=== PATIENT | female | born 1945 ===

== ENCOUNTER 2016-09-30 12:01 | Inpatient (IN) | payer OTHER, MEDICARE ==
[2016-09-30 12:01] VITALS: BMI 41.1
--- NOTE | 2016-09-30 12:18 | ED PDOC ---
HPI: SOB/CHF/COPD Time Seen by Provider: 09/30/16 12:08 Chief Complaint (Nursing): Shortness Of Breath History Per: Patient, EMS, Family Onset/Duration Of Symptoms: Days (3) Current Respiratory Medications: See Home Med List Severity: Moderate Pain Scale Rating Of: 0 Additional Complaint(s): Referred from [facility] for increasing SOB over past 3 days. Family has also noticed pt having more difficulty speaking, forming words. Denies cough or chest pain. Denies focal weakness. Pt has ? h/o Parkinsons and tremor upper ext has gotten worse. Bilat lower ext swelling but no new pain Past Medical History Vital Signs: Last Vital Signs Temp 98 F 09/30/16 12:07 Pulse 86 09/30/16 12:07 Resp 20 09/30/16 12:07 BP 139/61 09/30/16 12:07 Pulse Ox 100 09/30/16 12:07 - Medical History PMH: Anemia, Anxiety, Arthritis, Asthma, CAD, CHF, COPD, Depression, Diabetes, Deep Vein Thrombosis, Emphysema, Fibromyalgia, Fractures, GERD, HTN, Hypercholesterolemia, Hypothyroidism, Migraine, Pneumonia, Pulmonary Embolism, Rheumatoid Arthritis, Sleep Apnea Denies: HIV, Chronic Kidney Disease Other PMH: pulmonary HTN - Surgical History Surgical History: Cholecystectomy, Endoscopy, Tonsillectomy - Family History Family History: States: Diabetes - Home Medications Home Medications: Ambulatory Orders Medication Instructions Recorded ARIPiprazole [Abilify] 2 mg PO HS #0 tab 12/18/15 Aspirin [Ecotrin] 81 mg PO DAILY #0 tabec 12/18/15 Atorvastatin [Lipitor] 20 mg PO QPM #0 tab 12/18/15 Cyanocobalamin [Vitamin B12 1000 1,000 mcg IM DAILY #0 vial 12/18/15 mcg/ml Inj] Dexamethasone [Decadron] 40 mg PO Mo@0900 #0 tab 12/18/15 Escitalopram [Lexapro] 20 mg PO DAILY #0 tab 12/18/15 Famotidine [Pepcid] 20 mg PO BID #0 tab 12/18/15 Ferrous Gluconate [Fergon] 324 mg PO DAILY #0 tab 12/18/15 Furosemide [Lasix] 40 mg PO QOTHERDAY #0 tab 12/18/15 Insulin Detemir [Levemir] 30 units SC HS #0 vial 12/18/15 Nystatin [Mycostatin Cream] 1 applic TOP TID #0 tube 12/18/15 Pregabalin [Lyrica] 50 mg PO TID #0 cap 12/18/15 Ramipril [Altace] 2.5 mg PO DAILY #0 cap 12/18/15 Riociguat [Adempas] 2.5 mg PO TID #0 tablet 12/18/15 Vitamin A 8,000 unit PO DAILY #0 capsule 12/18/15 busPIRone [Buspar] 10 mg PO BID #0 tab 12/18/15 clonazePAM [Klonopin] 0.5 mg PO DAILY #0 tab 12/18/15 metFORMIN [glucOPHAGE] 500 mg PO BID #0 tab 12/18/15 Levothyroxine [Synthroid] 125 mcg PO DAILY@0630 #0 tab 12/19/15 - Allergies Allergies/Adverse Reactions: Allergies Allergy/AdvReac Type Severity Reaction Status Date / Time codeine AdvReac syncope, Verified 12/02/15 10:13 diaphoresis Review of Systems ROS Statement: Except As Marked, All Systems Reviewed And Found Negative Respiratory: Positive for: Shortness of Breath Musculoskeletal: Positive for: Other (Leg swelling) Physical Exam - Reviewed Nursing Documentation Reviewed: Yes Vital Signs Reviewed: Yes - Physical Exam Appears: Positive for: Non-toxic, No Acute Distress Head Exam: Positive for: ATRAUMATIC, NORMAL INSPECTION, NORMOCEPHALIC Skin: Positive for: Normal Color, Warm, DRY Eye Exam: Positive for: EOMI, Normal appearance, PERRL ENT: Positive for: Normal ENT Inspection Neck: Positive for: Normal, Painless ROM Cardiovascular/Chest: Positive for: Regular Rate, Rhythm Respiratory: Positive for: CNT, Normal Breath Sounds Gastrointestinal/Abdominal: Positive for: Normal Exam, Bowel Sounds, Soft Back: Positive for: Normal Inspection Extremity: Negative for: Swelling (LOwer ext bilat no calf tenderness.) Neurologic/Psych: Positive for: Alert, Oriented, Other (tremors upper ext bilat) - Laboratory Results Result Diagrams: 09/30/16 13:32 09/30/16 13:32 Disposition - Clinical Impression Clinical Impression: COPD exacerbation - Patient ED Disposition Is Patient to be Admitted: Yes - Disposition Disposition Time: 16:46 Condition: FAIR Forms: [employer] (Georgian) - Pt Status Changed To: Hospital Disposition Of: Observation - POA Present On Arrival: None
[2016-09-30 13:46] LABS: ALBUMIN 3.7 g/dL (3.5-5.0)
[2016-09-30 13:48] LABS: GFR AFRICAN-AMERICAN > 60; GFR NON-AFRICAN AMERICAN > 60
[2016-09-30 13:49] LABS: ALB/GLOB RATIO 1.4 (1.0-2.1); ALT/SGPT 31 U/L (9-52); AST/SGOT 35 U/L (14-36); BLOOD UREA NITROGEN 16 mg/dl (7-17)
[2016-09-30 13:50] LABS: CALCIUM 8.5 mg/dL (8.4-10.2)
--- NOTE | 2016-09-30 14:07 | CT ---
PROCEDURE: CT scan brain dated 09/30/2016. HISTORY: Rule out hemorrhage. COMPARISON: Comparison made with prior study 12/02/2015 TECHNIQUE: Contiguous helical/ transaxial computed tomography images were obtained through the head/brain without intravenous contrast. Radiation dose: Total exam DLP = 782.95 mGy-cm. This CT exam was performed using one or more of the following dose reduction techniques: Automated exposure control, adjustment of the mA and/or kV according to patient size, and/or use of iterative reconstruction technique. FINDINGS: HEMORRHAGE: No acute parenchymal, subarachnoid or extra-axial hemorrhage. BRAIN: Mild chronic periventricular white matter ischemic changes are seen extending peripherally into the deep white matter both cerebral hemispheres. No large acute infarct identified on this noncontrast study. Minor vascular calcifications. Mild generalized volume loss VENTRICLES: No evidence of obstructive hydrocephalus CALVARIUM: There are no acute calvarial fractures. Re- demonstrated are a multiple small nonspecific subcutaneous nodular densities the largest in the left posterior superior parietal scalp at the convexity measuring approximate 13.5 x 10.5 mm PARANASAL SINUSES: Frontal sinuses remain underpneumatized though otherwise clear. Remaining visualized paranasal sinuses well-developed and currently well-aerated. MASTOID AIR CELLS: Mastoid air complexes remain sclerotic and underpneumatized unchanged from prior study OTHER FINDINGS: Changes of bilateral cataract surgery again noted. IMPRESSION: No acute intracranial hemorrhage. Mild chronic periventricular white matter ischemic changes. Mild generalized volume loss.
[2016-09-30 14:10] LABS: PROTHROMBIN TIME 11.8 Seconds (9.8-13.1)
[2016-09-30 14:13] LABS: BASO % 0.3 % (0.0-2.0); EOS # 0.1 K/uL (0.0-0.7); EOS % 0.9 % (0.0-4.0); HEMOGLOBIN 10.8 g/dL (12.0-16.0); LYMPH # 1.1 K/uL (1.0-4.3); LYMPH % 13.3 % (20.0-40.0); MEAN CELL VOLUME 87.8 fl (81.0-99.0); MEAN CORPUSCULAR HEMOGLOBIN 29.1 pg (27.0-31.0); MEAN CORPUSCULAR HGB CONC 33.1 g/dL (33.0-37.0); MEAN PLATELET VOLUME 9.3 fl (7.2-11.7); MONO # 1.2 K/uL (0.0-0.8); MONO % 14.5 % (0.0-10.0); NEUT # 5.7 K/uL (1.8-7.0); RBC 3.72 Mil/uL (3.80-5.20); RED CELL DISTRIBUTION WIDTH 15.8 % (11.5-14.5)
[2016-09-30] MEDS ORDERED: Sodium Chloride 0.9% 50 ML IV ONE (14:19)
--- NOTE | 2016-09-30 14:19 | US ---
PROCEDURE: Bilateral lower extremity venous duplex Doppler. HISTORY: r/o DVT COMPARISON: Comparison made with prior study dated 06/30/2016 TECHNIQUE: Bilateral common femoral, superficial femoral, popliteal and posterior tibial veins were evaluated. Flow was assessed with color Doppler, compressibility, assessment of phasic flow and augmentation response. FINDINGS: COMMON FEMORAL VEIN: Right CFV: Unremarkable. Left CFV: Unremarkable. SUPERFICIAL FEMORAL VEIN: Right SFV: Unremarkable. Left SFV: Unremarkable. POPLITEAL VEIN: Right Popliteal: Unremarkable. Left Popliteal: Unremarkable. POSTERIOR TIBIAL VEIN: Right PTV: Unremarkable. Left PTV: Unremarkable. OTHER FINDINGS: None. IMPRESSION: No evidence of deep venous thrombosis.
--- NOTE | 2016-09-30 14:26 | RAD ---
HISTORY: SOB COMPARISON: Comparison chest 07/21/2016 TECHNIQUE: Chest PA and lateral FINDINGS: LUNGS: Mild central pulmonary vascular congestive changes. . There may also be some mild bibasilar atelectasis left greater than right . Persistent elevation right hemidiaphragm could be due to eventration PLEURA: No significant pleural effusion identified. No pneumothorax apparent. CARDIOVASCULAR: Heart appears enlarged. OSSEOUS STRUCTURES: No significant abnormalities. VISUALIZED UPPER ABDOMEN: Normal. OTHER FINDINGS: None. IMPRESSION: Mild central pulmonary vascular congestive changes. . There may also be some mild bibasilar atelectasis left greater than right Cardiomegaly.
--- NOTE | 2016-09-30 16:38 | CT ---
PROCEDURE: CT Chest with contrast (Pulmonary Angiogram) HISTORY: sob COMPARISON: None available. TECHNIQUE: Axial computed tomography images were obtained of the chest in the pulmonary arterial phase of enhancement. Coronal and sagittal reformatted images were created and reviewed. Intravenous contrast dose: 369.09 Radiation dose: Total exam DLP = mGy-cm. This CT exam was performed using one or more of the following dose reduction techniques: Automated exposure control, adjustment of the mA and/or kV according to patient size, and/or use of iterative reconstruction technique. FINDINGS: PULMONARY ARTERIES: The visualized pulmonary trunk, right and left main, lobar, segmental and proximal subsegmental branches of the pulmonary arteries are relatively well opacified with no definitive filling defects seen to suggest acute pulmonary embolus. . Note that the examination is limited due to large body habitus and crossing streak/beam hardening artifact. Pulmonary trunk measures approximately 3.72 cm. Rule out underlying mild pulmonary arterial hypertension. AORTA: Ascending thoracic aorta is measures approximately 3.4 cm and descending thoracic aorta measures approximately 2.3 cm. No evidence of thoracic aortic dissection. LUNGS: Mild bibasilar atelectasis and or scarring right greater than left. . No focal consolidation. No obvious parenchymal masses. There there is a small approximately 2 mmnodule right lateral upper lobe bordering the fissure unchanged from prior study. . . PLEURAL SPACES: Unremarkable. No effusion or pneumothorax HEART: Heart is enlarged. No significant pericardial effusion. LYMPH NODES: There are multiple small nonspecific mediastinal lymph nodes. Few small hilar lymph nodes also felt to be present. BONES, CHEST WALL: Re- demonstrated is a chronic anterior wedge compression fracture of the T5 segment with fish-mouth endplate deformity of the T3 segment. In addition, chronic anterior wedging of the T12 segment unchanged. Small chronic appearing Schmorl's node inferior and T 10 segment new since prior study. . There is a small hiatal hernia with wall thickening of the distal esophagus that could be due to protrusion of gastric mucosa. Possibility of esophagitis not excluded. OTHER FINDINGS: Re- demonstrated is a calcification along the posterior superior aspect right lobe liver near the diaphragmatic dome. This could represent sequela of prior exposure to granulomatous disease process Finger Waver film also demonstrates in situ IVC filter. IMPRESSION: Limited exam due to large body habitus with resultant streak and beam hardening artifact reducing fine soft tissue and bone detail. No evidence of large acute central pulmonary embolus. Cardiomegaly. . Prominent pulmonary trunk ; rule out underlying pulmonary arterial hypertension. Minor bibasilar atelectasis and or scarring right greater than left the Small nodule lateral aspect right upper lobe bordering the fissure unchanged from prior study.
[2016-09-30] MEDS ORDERED: Albuterol-Ipratrop 3 mg / 0.5 (3 ml) UD IH STA (16:46)
[2016-09-30] MEDS ORDERED: Albuterol-Ipratrop 3 mg / 0.5 (3 ml) UD ONE (17:56)
--- NOTE | 2016-09-30 19:18 | CP.PCM.HP ---
History of Present Illness - History of Present Illness History of Present Illness: 70 yo female with PMH of HTN, IDDM type 2, Hypothyroidism, COPD (on home O2), Diastolic CHF grade 1, Pulmonary HTN, Sleep apnea, Multiple myeloma, PE presents for evaluation of 1 week of increased sob and restless movement. Patient states compliance with medication and only change in medication was adempas increase to 1mg. Patient denies fever, chills, abdominal pain, change in vision, change in urinary/bowel habits, dizziness, chest pain, headache, cough, or diarrhea/constipation. Patient states previously with minimal tremor but significantly worse in the last 1 week. Patient states nothing makes it worse/better. Present at all times, even when she is sleeping. Includes whole body and x 4 extremities. Denies pain. Patient states sob has been worse today. Feels worse when speaking. PMD: Dr David Neumann ED Course: Vitals stable. Afebrile. O2 sat normal PE notable for involuntary tremors and bilateral lower ext swelling Labs: notable for 10.8 hgb, elevated D-dimer, bnp not available EKG with LA enlargement, NSR CXR- Mild central pulmonary vascular congestive changes. . There may also be some mild bibasilar atelectasis left greater than right. Cardiomegaly. Head CT- No acute intracranial hemorrhage. Mild chronic periventricular white matter ischemic changes. Mild generalized volume loss. US negative for DVT bilaterally. CTA - No evidence of large acute central pulmonary embolus. Cardiomegaly. Prominent pulmonary trunk; rule out underlying pulmonary arterial hypertension. Minor bibasilar atelectasis and or scarring right greater than left the Small nodule lateral aspect right upper lobe bordering the fissure unchanged from prior study. Present on Admission - Present on Admission Any Indicators Present on Admission: Yes History of DVT/PE: Yes Review of Systems - Review of Systems All systems: reviewed and no additional remarkable complaints except (mentioned in hpi) Past Patient History - Infectious Disease Hx of Infectious Diseases: None - Tetanus Immunizations Tetanus Immunization: Unknown - Past Medical History & Family History Past Medical History?: Yes - Past Social History Smoking Status: Never Smoked - CARDIAC Hx Congestive Heart Failure: Yes Hx Hypercholesterolemia: Yes Hx Hypertension: Yes - PULMONARY Hx Asthma: Yes Hx Chronic Obstructive Pulmonary Disease (COPD): Yes Hx Emphysema: Yes Hx Pneumonia: Yes Hx Pulmonary Embolism: Yes Hx Sleep Apnea: Yes - NEUROLOGICAL Hx Migraine: Yes - HEENT Hx HEENT Problems: Yes Other/Comment: Uses Glasses - RENAL Hx Chronic Kidney Disease: No - ENDOCRINE/METABOLIC Hx Hypothyroidism: Yes - HEMATOLOGICAL/ONCOLOGICAL Hx Anemia: Yes Hx Human Immunodeficiency Virus (HIV): No - INTEGUMENTARY Hx Dermatological Problems: No - MUSCULOSKELETAL/RHEUMATOLOGICAL Hx Arthritis: Yes Hx Fractures: Yes Hx Rheumatoid Arthritis: Yes - GASTROINTESTINAL Hx Gastrointestinal Disorders: No - GENITOURINARY/GYNECOLOGICAL Hx Genitourinary Disorders: Yes Hx Incontinence: Yes Other/Comment: Urinary frequency - PSYCHIATRIC Hx Anxiety: Yes Hx Depression: Yes - SURGICAL HISTORY Hx Cholecystectomy: Yes Hx Tonsillectomy: Yes - ANESTHESIA Hx Anesthesia: Yes Hx Anesthesia Reactions: Yes (Resp. Distress) Meds Allergies/Adverse Reactions: Allergies Allergy/AdvReac Type Severity Reaction Status Date / Time codeine AdvReac syncope, Verified 12/02/15 10:13 diaphoresis Physical Exam - Constitutional Appears: Non-toxic, No Acute Distress - Head Exam Head Exam: ATRAUMATIC, NORMAL INSPECTION, NORMOCEPHALIC - Eye Exam Eye Exam: Normal appearance - Neck Exam Neck exam: Positive for: Normal Inspection - Respiratory Exam Respiratory Exam: Decreased Breath Sounds (bilateral bases), Rales (mild bilateral bases), Respiratory Distress (mild), NORMAL BREATHING PATTERN. absent : Rhonchi, Wheezes - Cardiovascular Exam Cardiovascular Exam: RRR, +S1, +S2 - GI/Abdominal Exam GI & Abdominal Exam: Normal Bowel Sounds, Soft. absent: Tenderness - Extremities Exam Extremities exam: Positive for: normal inspection, pedal edema (1+) - Neurological Exam Neurological exam: Alert, Oriented x3 Additional comments: full body involuntary restless movements. dyskinesia. no rigidity/spasms noted. uncooperative with cerebellar tests. unable to evaluate gait due to sob/ involuntary jerking. no facial twitching noted. - Psychiatric Exam Psychiatric exam: Normal Affect, Normal Mood - Skin Skin Exam: Dry, Intact, Normal Color, Warm Results - Vital Signs Recent Vital Signs: Last Vital Signs Temp 98 F 09/30/16 12:07 Pulse 86 09/30/16 12:07 Resp 20 09/30/16 12:07 BP 139/61 09/30/16 12:07 Pulse Ox 100 09/30/16 12:20 - Labs Result Diagrams: 09/30/16 13:32 09/30/16 13:32 Assessment & Plan (1) Dyspnea Status: Acute (2) Abnormal involuntary movements Status: Acute (3) HTN (hypertension) Status: Chronic (4) CHF (congestive heart failure) Status: Chronic Onset Date: 12/06/13 (5) COPD (chronic obstructive pulmonary disease) Status: Chronic (6) Diabetes mellitus Status: Chronic (7) Anemia Status: Chronic (8) Multiple myeloma Status: Chronic (9) Hypothyroidism Status: Chronic (10) Depression Status: Chronic (11) Pulmonary hypertension Status: Chronic (12) Sleep apnea Status: Chronic (13) DVT prophylaxis Status: Acute - Assessment and Plan (Free Text) Assessment: 70 yo female with PMH of HTN, IDDM type 2, Hypothyroidism, COPD (on home O2), Diastolic CHF grade 1, Pulmonary HTN, Sleep apnea, Multiple myeloma, PE presents for evaluation of 1 week of increased sob and restless movement. PE notable for bilateral lower ext swelling, bilateral rales/decreased breath sounds. D-dimer noted to be elevated, CTA negative for PE/US negative for DVT. Anemia present. Plan: (1) Dyspnea - x 1 wk worsening - bilateral lower extremity edema with mild crackles/decreased breath sounds at bases - BNP 6830 - Will treat for CHF exacerbation at this time - D-dimer elevated with negative CTA for PE - Monitor O2 status on telemetry unit - Duonebs prn - Lasix - Monitor weights (2) Abnormal involuntary movements - full body dyskinesia without evolvement of face x 1 week worsening - Possibly drug related, held abilify at this time - Neurology consulted, appreciate recommendations - Labs ordered - MRI w/ and w/o contrast ordered of brain - EEG ordered (3) HTN (hypertension) -Well controlled -Enalapril 2.5mg PO daily (4) CHF, diastolic (Compensated) -Last echo 04/02/15 -Grade I abnormal relaxation pattern -Ejection fraction 60-65% -Normal left ventricular wall thickness -Lasix 20mg IVP x 1 -Lasix 40mg IVP daily (as home med 40mg PO every OTHER day) -Monitor I&O, obtain echo -BNP 6830 (5) COPD -Stable, O2 Sat 97% on 2L NC -On home O2 -Duonebs q6H prn (6) Insulin dependent diabetes mellitus type 2 -Last HgbA1c: 8.7% on 07/02/16 -Levemir 15u SC HS -Humalog 10u SC ACTID -Accuchecks -Hypoglycemia protocol (7) Pulmonary Hypertension -s/p Right heart catheterization on 01/29/[address] Cady Angel -Severe pulmonary hypertension -Pulmonary management previously as per Dr Cisneros -Adempas 1mg PO TID -EKG with LA enlargement (8) Multiple Myeloma/Anemia -followed by Dr Vilchis -On single agent dexamethasone 40mg PO monthly (9) Hypothyroidism -Last TSH: 0.96 on 07/02/16 with free T4 0.82 -TSH in past 80s-90s -repeat TSH in AM -c/w Levothyroxine 125mcg po home med (10) Depression - stable - c/w home meds - held abilify due to possible cause of restless movements (11) Sleep apnea - Patient has own CPAP, use HS (12) DVT prophylaxis - h/o of PE, not on anticoagulation at this time according to chart, verify with daughter/med sheet she is bringing in - Lovenox 40mg SC qd
[2016-09-30] MEDS: Insulin Detemir 100 Units/ml Inj SC SCH (22:05)
[2016-10-01] MEDS: Levothyroxine 125 MCG TAB PO SCH (06:09)
--- NOTE | 2016-10-01 07:11 | CON ---
DATE: REASON FOR THE CONSULTATION: Involuntary movements. CHIEF COMPLAINT: The patient was brought in to [facility] for her increasing shortness of breath. Because of this, patient also had evidence of difficulty in speaking. From a neurological point of view, I was called in to see her because of her rhythmic movements. HISTORY OF PRESENT ILLNESS: Dorie Perkins is a 70-year-old right handed female presenting with 2-week history of uncontrollable rhythmic movement of upper extremities and lower extremities. However, she admits this movement has been 2 years; however, this worsening of the movements presenting for the last 2 weeks. She could not able to control; however, she was told during sleep the movements are being subsided or not existing. These movements not associating with visual or bulbar dysfunction. No history of headache. No history of neck pain. PAST MEDICAL HISTORY: Includes anemia, anxiety, arthritis, asthma, coronary artery disease, CHF, COPD, depression, diabetes, DVT, emphysema, fibromyalgia, fractures of left foot, gastroesophageal reflux disease, hypertension, hypercholesterolemia, hypothyroidism, migraine, pneumonia, PE, rheumatoid arthritis, sleep apnea, and multiple myeloma. PAST SURGICAL HISTORY: Cholecystectomy and tonsillectomy. SOCIAL HISTORY: Denies smoking and alcohol use. ALLERGIES: NO KNOWN ALLERGIES. HOME MEDICATIONS: Include Abilify 2 mg at bedtime, aspirin, Lipitor, B12, Decadron, Lexapro, Pepcid, iron supplement, Lasix, Levemir, Mycostatin, Lyrica, Altace, vitamin A, BuSpar, Klonopin, Glucophage, and Synthroid. PHYSICAL EXAMINATION VITAL SIGNS: Blood pressure 129/54, mean arterial pressure of 79, respiratory rate 16, temperature 98.2, pulse rate 89 regular. NECK: Supple. No carotid bruits CARDIOPULMONARY: Heart sounds regular. LUNGS: Fair air entry. No edema. EXTREMITIES: Externally rotated with AFO splint due to the fracture of left ankle. Muscles are atrophied. NEUROLOGIC EVALUATION: Mental status examination: She is awake, alert and oriented to person, place and time. Speech is clear. No sign of depression. No sign of suicidal ideations. No sign of confabulation. Visual field intact. Pupils equal reactive to light. Extraocular movement normal. No nystagmus. No facial sensory deficit. No facial asymmetry. Hearing is normal. Tongue is midline. Good gag. Motor examination: No drift noted. Resting involuntary rhythmic movement of upper extremities and lower extremities, higher amplitude tremor noted. Deep tendon reflexes biceps, brachialis, triceps 2+, both knees are absent, both ankles are absent, plantar's are mute. Significant sensory motor neuropathy also noted. [id number] testing is mild dysmetria on her left side on finger-nose testing. Gait is deferred at this time. CONCLUSION: Upon reviewing her history and neurological examination, Ms. 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 The patient also presenting with peripheral neuropathy secondary to her diabetes mellitus, multiple myeloma, and medication-induced neuropathy. RECOMMENDATION: 1. MRI of the brain to rule out any ischemic process or space-occupying lesion in the mid brain. 2. Blood workup as per the Radiology including ceruloplasmin. 3. Cogentin is given 1 mg 3 times a day. Diabetic control, blood pressure control all been discussed with her. The patient will be followed closely with you. Patrick Doyle MD MTDDarius
[2016-10-01 07:29] LABS: HEMOGLOBIN 10.6 g/dL (12.0-16.0); MEAN CELL VOLUME 89.1 fl (81.0-99.0); MEAN CORPUSCULAR HGB CONC 32.5 g/dL (33.0-37.0); RBC 3.65 Mil/uL (3.80-5.20); RED CELL DISTRIBUTION WIDTH 15.7 % (11.5-14.5); WHITE BLOOD COUNT 7.2 K/uL (4.8-10.8)
[2016-10-01] MEDS ORDERED: INSULIN ASPART RECOMBINANT 10 UNIT SC SCH (07:30)
[2016-10-01 07:38] LABS: ALB/GLOB RATIO 1.5 (1.0-2.1); ALBUMIN 3.5 g/dL (3.5-5.0); ALT/SGPT 34 U/L (9-52); AST/SGOT 23 U/L (14-36); BLOOD UREA NITROGEN 16 mg/dl (7-17); CALCIUM 9.1 mg/dL (8.4-10.2); GFR AFRICAN-AMERICAN > 60; GFR NON-AFRICAN AMERICAN > 60
[2016-10-01] MEDS ORDERED: RIOCIGUAT 1 MG PO SCH (09:00)
--- NOTE | 2016-10-01 09:49 | CP.PCM.PN ---
Subjective - Date & Time of Evaluation Date of Evaluation: 10/01/16 Time of Evaluation: 07:25 - Subjective Subjective: Patient seen and examined at bedside, no acute events overnight . On 2L supplemental O2 via nasal cannula. Reports her SOB persists, her whole body/ extremity tremors persist and intermittently worsen throughout the day. Otherwise patient is tolerating PO diet, has normal urine and stool output. Denies chest pain, dizziness, weakness or visual changes. Objective - Vital Signs/Intake and Output Vital Signs (last 24 hours): Temp Pulse Resp BP Pulse Ox 98.3 F 88 20 114/71 96 10/01/16 08:22 10/01/16 08:22 10/01/16 08:22 10/01/16 08:22 10/01/16 08:22 - Medications Medications: Current Medications Albuterol/Ipratropium (Duoneb 3 Mg/0.5 Mg (3 Ml) Ud) 3 ml INH RQ4 PRN PRN Reason: Shortness of Breath Aspirin (Ecotrin) 81 mg PO DAILY [facility] Atorvastatin Calcium (Lipitor) 20 mg PO QPM [facility] Benztropine Mesylate (Cogentin) 1 mg PO Q8@0000,0800,1600 [facility] Buspirone HCl (Buspar) 10 mg PO BID [facility] Clonazepam (Klonopin) 0.5 mg PO HS [facility] Last Admin: 09/30/16 22:04 Dose: 0.5 mg Dexamethasone (Decadron) 20 mg PO Mo@0900 [facility] Enalapril Maleate (Vasotec) 2.5 mg PO DAILY [facility] Enoxaparin Sodium (Lovenox) 40 mg SC DAILY [facility] PRN Reason: Protocol Ergocalciferol (Drisdol 50,000 Intl Units Cap) 1 cap PO FR [facility] Escitalopram Oxalate (Lexapro) 20 mg PO DAILY [facility] Famotidine (Pepcid) 20 mg PO BID [facility] Furosemide (Lasix) 40 mg IVP DAILY [facility] Home Med (Omeprazole [Omeprazole]) 20 mg PO DAILY [facility] Home Med (Riociguat [Adempas]) 1 mg PO TID [facility] Insulin Detemir (Levemir) 15 units SC HS [facility] Last Admin: 09/30/16 22:05 Dose: 15 units Insulin Human Lispro (Humalog) 10 units SC ACTID [facility] Levothyroxine Sodium (Synthroid) 125 mcg PO DAILY@0630 [facility] Last Admin: 10/01/16 06:09 Dose: 125 mcg Lidocaine (Lidoderm) 1 ea TD DAILY PRN PRN Reason: Pain, moderate (4-7) Metformin HCl (Glucophage) 500 mg PO BID [facility] Pantoprazole Sodium (Protonix Ec Tab) 20 mg PO DAILY [facility] - Labs Labs: 10/01/16 06:00 10/01/16 06:00 PT 11.8 Seconds (9.8-13.1) 09/30/16 13:32 INR 1.0 (0.9-1.2) 09/30/16 13:32 - Constitutional Appears: Chronically Ill, Other (mild resting extremity tremor present ) - Head Exam Head Exam: ATRAUMATIC, NORMOCEPHALIC - Eye Exam Eye Exam: EOMI, PERRL - ENT Exam ENT Exam: Mucous Membranes Moist - Neck Exam Neck Exam: Full ROM - Respiratory Exam Respiratory Exam: Clear to Ausculation Bilateral Additional comments: mild dyspnea on 2L O2 via nasal cannula - Cardiovascular Exam Cardiovascular Exam: REGULAR RHYTHM, +S1, +S2 - GI/Abdominal Exam GI & Abdominal Exam: Soft (obese), Normal Bowel Sounds. absent: Tenderness - Extremities Exam Extremities Exam: Full ROM. absent: Calf Tenderness, Pedal Edema - Back Exam Back Exam: absent: CVA tenderness (L), CVA tenderness (R) - Neurological Exam Neurological Exam: Alert, Awake, CN II-XII Intact - Psychiatric Exam Psychiatric exam: Flat Affect - Skin Skin Exam: Dry, Intact, Warm Assessment and Plan - Assessment and Plan (Free Text) Assessment: 70 yr old F admitted for worsening SOB and whole body/extremity tremors at rest. D-dimer noted to be elevated, CTA negative for PE/US negative for DVT. Patients SOB persists on 2L supplemental O2 via nasal cannula. Neurology is on board, MRI brain pending. Plan: Dyspnea -worsening, chronic -bilateral lower extremity edema with mild crackles/decreased breath sounds at bases -BNP 6830 -treating for CHF exacerbation at this time, echo results pending -Monitor O2 status on telemetry unit -Duonebs prn, Lasix -Monitor weights Abnormal involuntary movements -full body dyskinesia without involvement of face -Possibly drug related, held abilify at this time -Neurology consulted: f/u MRI brain without contrast , start Cogentin 1mg PO TID , f/u labs -EEG ordered HTN -controlled, chronic -continue home med: Enalapril 2.5mg PO daily CHF diastolic (Compensated) -Last echo 04/02/15: Grade I abnormal relaxation pattern, EF 60-65%, normal LV wall thickness -Lasix 40mg IVP daily (at home pt takes Lasix 40mg PO every OTHER day) -Monitor I&O, f/u repeat echo -BNP 6830 COPD -Stable, O2 Sat 97% on 2L NC -On home O2 -Duonebs Q6H PRN SOB Insulin dependent diabetes mellitus type 2 -Last HgbA1c: 8.7% on 07/02/16 -Continue home meds: Metformin 500mg PO BID, Levemir 15 units SC HS, Humalog 10 units SC ACTID) -Accuchecks -Hypoglycemia protocol Pulmonary Hypertension-Severe -chronic -EKG with LA enlargement -s/p Right heart catheterization on 01/29/[address] Cady Angel -Pulmonary management previously as per Dr Cisneros -Adempas (Riociguat) 1mg PO TID Multiple Myeloma/Anemia -followed by Dr Vilchis -On single agent Dexamethasone 40mg PO monthly Hypothyroidism -Last TSH: 0.96 on 07/02/16 with free T4 0.82 -repeat TSH in AM -continue with home med: Levothyroxine 125mcg PO QD Depression -stable -continue with home meds (Buspirone 10mg PO BID, Klonopin 0.5mg PO QHS, Lexapro 20mg PO QD) -held abilify due to possible cause of restless movements Sleep apnea -Patient has own CPAP, use HS DVT/GI prophylaxis -h/o of PE, not on anticoagulation at this time according to chart, verify with daughter/med sheet she is bringing in -Lovenox 40mg SC QD -Protonix 20mg PO QD
[2016-10-01] MEDS: Insulin Lispro (humaLOG) 100 Units/ml Inj SC SCH ×4 (10:25→17:47)
[2016-10-01] MEDS: Enoxaparin 40 mg Syringe SC SCH (10:30)
[2016-10-01] MEDS: Pantoprazole 20 mg EC Tab PO SCH (10:31)
--- NOTE | 2016-10-01 10:36 | CARD ---
APPROVED REPORT EKG Measurement Heart [id number] <Conclusion> Normal sinus rhythm Possible Left atrial enlargement Anterolateral infarct, age undetermined Abnormal ECG excessive motion artefact to read properly-recommend repeat
--- NOTE | 2016-10-01 11:47 | CARD ---
APPROVED REPORT EXAM: Two-dimensional and M-mode echocardiogram with Doppler and color Doppler. Other Information Quality : GoodRhythm : NSR INDICATION Dyspnea Pulmonary Hypertention 2D DIMENSIONS IVSd0.74 (0.7-1.1cm)LVDd4.26 (3.9-5.9cm) LVOT Diameter2.00 (1.8-2.4cm)PWd0.82 (0.7-1.1cm) IVSs1.21 (0.8-1.2cm)LVDs2.87 (2.5-4.0cm) FS (%) 32.5 %PWs1.29 (0.8-1.2cm) M-Mode DIMENSIONS Left Atrium (MM)4.06 (2.5-4.0cm)IVSd0.97 (0.7-1.1cm) Aortic Root3.15 (2.2-3.7cm)LVDd4.26 (4.0-5.6cm) Aortic Cusp Exc.1.76 (1.5-2.0cm)PWd0.94 (0.7-1.1cm) IVSs1.15 cmFS (%) 34 % LVDs2.82 (2.0-3.8cm)PWs1.56 cm Mitral Valve MV E Gkvqzjwv96.2cm/sMV DECEL [id number] A Zgrxtqns271.2cm/s MV JNR73btP/A ratio0.6MVA (PHT)5.38cm2 TDI E/Lateral E'0.0E/Medial E'0.0 Pulmonary Valve PV Peak Fafpdijz36.1cm/s Tricuspid Valve TR Peak Hjjvyclo649ce/sRAP [id number] Peak Gr.69mmHg [id number] LEFT VENTRICLE The left ventricle is normal size. There is normal left ventricular wall thickness. The left ventricular function is normal. The left ventricular ejection fraction is - 65-70%. There is normal LV segmental wall motion. Transmitral Doppler flow pattern is Grade I-abnormal relaxation pattern. No left ventricle thrombus noted on this study. There is no ventricular septal defect visualized. There is no left ventricular aneurysm. There is no mass noted in the left ventricle. RIGHT VENTRICLE The right ventricle is mildly dilated. The right ventricle is mildly hypertrophied in some views. The right ventricular systolic function is normal. ATRIA The left atrium size is normal on the 2D study. There is no thrombus suspected in the left atrium. The right atrium is mildly dilated in some views. The interatrial septum is intact with no evidence for an atrial septal defect. AORTIC VALVE The aortic valve is normal in structure and function. No aortic regurgitation is present. There is no aortic valvular stenosis. MITRAL VALVE The mitral valve is normal in structure and function. There is no evidence of mitral valve prolapse. There is no mitral valve stenosis. Mitral regurgitation is trace. TRICUSPID VALVE The tricuspid valve is normal in structure and function. There is mild tricuspid regurgitation. Right ventricular systolic pressure is estimated at 78 mmHg. There is no tricuspid valve prolapse or vegetation. There is no tricuspid valve stenosis. PULMONIC VALVE The pulmonic valve is not well visualized. There is trace to mild pulmonic valvular regurgitation. Doppler studies of the PV showed a decreased PV AT which is compatable with pulmonary hypertension. GREAT VESSELS The aortic root is normal in size. The IVC collapses <50% with inspiration. PERICARDIAL EFFUSION The pericardium appears normal. There is no pleural effusion. <Conclusion> The left ventricle is normal in size and wall thickness. The left ventricular function is normal. The left ventricular ejection fraction is - 65-70%. The right ventricle and right atrium are mildly enlarged. The mitral, aortic and tricuspid valves are normal. There is trace mitral regurgitation. There is mild tricuspid regurgitation. Right ventricular systolic pressure is estimated at 78 mmHg which is compatable with severe pulmonary hypertension.
[2016-10-01 17:01] LABS: RAPID PLASMA REAGIN NONREACTIVE (NONREACTIVE)
[2016-10-01] MEDS: Insulin Detemir 100 Units/ml Inj SC SCH (23:08)
[2016-10-01] MEDS: Albuterol-Ipratrop 3 mg / 0.5 (3 ml) UD INH PRN (23:32)
--- NOTE | 2016-10-02 03:18 | CP.PCM.CON ---
History of Present Illness - History of Present Illness History of Present Illness: Ms. Perkins is a 70 year old female with a history of type II DM, hypertension, COPD, sleep apnea with pulmonary hypertension, PE off anticoagulation due to falls, multiple myeloma with lytic bone lesions on Decadron, admitted with fatigue and involuntary spasm/shaking of her extremities. The patient had been treated with Revlimid in the past but due to severe hypocalcemia and hypomagnesemia, this was held. Her myeloma staging shows near undetectable monclonal protein on single agent dexamethasone. She reports she has been having fatigue, weakness, and involuntary shaking of her extremities. Past medical history: type II DM, hypertension, COPD, sleep apnea with pulmonary hypertension, multiple myeloma with lytic bone lesions. Past surgical history: None Family history: Denies hematologic and oncologic problems. Social history: Denies tobacco, alcohol, and illicit drug use. Allergies: Codeine. Review of systems: All remaining ROS including HEENT, cardiovascular, respiratory, gastrointestinal, genitourinary, musculoskeletal, dermatologic, neurologic, and psychiatric are negative unless mentioned in the HPI. Past Patient History - Infectious Disease Hx of Infectious Diseases: None - Tetanus Immunizations Tetanus Immunization: Unknown - Past Medical History & Family History Past Medical History?: Yes - Past Social History Smoking Status: Never Smoked - CARDIAC Hx Congestive Heart Failure: Yes Hx Hypercholesterolemia: Yes Hx Hypertension: Yes - PULMONARY Hx Asthma: Yes Hx Chronic Obstructive Pulmonary Disease (COPD): Yes Hx Emphysema: Yes Hx Pneumonia: Yes Hx Pulmonary Embolism: Yes Hx Sleep Apnea: Yes - NEUROLOGICAL Hx Migraine: Yes - HEENT Hx HEENT Problems: Yes Other/Comment: Uses Glasses - RENAL Hx Chronic Kidney Disease: No - ENDOCRINE/METABOLIC Hx Hypothyroidism: Yes - HEMATOLOGICAL/ONCOLOGICAL Hx Anemia: Yes Hx Human Immunodeficiency Virus (HIV): No - INTEGUMENTARY Hx Dermatological Problems: No - MUSCULOSKELETAL/RHEUMATOLOGICAL Hx Arthritis: Yes Hx Fractures: Yes Hx Rheumatoid Arthritis: Yes - GASTROINTESTINAL Hx Gastrointestinal Disorders: No - GENITOURINARY/GYNECOLOGICAL Hx Genitourinary Disorders: Yes Hx Incontinence: Yes Other/Comment: Urinary frequency - PSYCHIATRIC Hx Anxiety: Yes Hx Depression: Yes - SURGICAL HISTORY Hx Cholecystectomy: Yes Hx Tonsillectomy: Yes - ANESTHESIA Hx Anesthesia: Yes Hx Anesthesia Reactions: Yes (Resp. Distress) Meds Allergies/Adverse Reactions: Allergies Allergy/AdvReac Type Severity Reaction Status Date / Time codeine AdvReac syncope, Verified 12/02/15 10:13 diaphoresis - Medications Medications: Current Medications Albuterol/Ipratropium (Duoneb 3 Mg/0.5 Mg (3 Ml) Ud) 3 ml INH RQ4 PRN PRN Reason: Shortness of Breath Last Admin: 10/01/16 23:32 Dose: 3 ml Aspirin (Ecotrin) 81 mg PO DAILY [facility] Last Admin: 10/01/16 10:23 Dose: 81 mg Atorvastatin Calcium (Lipitor) 20 mg PO QPM [facility] Last Admin: 10/01/16 17:48 Dose: 20 mg Benztropine Mesylate (Cogentin) 1 mg PO Q8@0000,0800,1600 [facility] Last Admin: 10/02/16 01:02 Dose: 1 mg Buspirone HCl (Buspar) 10 mg PO BID [facility] Last Admin: 10/01/16 17:45 Dose: 10 mg Clonazepam (Klonopin) 0.5 mg PO HS [facility] Last Admin: 10/01/16 22:54 Dose: 0.5 mg Dexamethasone (Decadron) 20 mg PO Mo@0900 [facility] Enalapril Maleate (Vasotec) 2.5 mg PO DAILY [facility] Last Admin: 10/01/16 10:32 Dose: 2.5 mg Enoxaparin Sodium (Lovenox) 40 mg SC DAILY [facility] PRN Reason: Protocol Last Admin: 10/01/16 10:30 Dose: 40 mg Ergocalciferol (Drisdol 50,000 Intl Units Cap) 1 cap PO FR [facility] Escitalopram Oxalate (Lexapro) 20 mg PO DAILY [facility] Last Admin: 10/01/16 10:30 Dose: 20 mg Famotidine (Pepcid) 20 mg PO BID [facility] Last Admin: 10/01/16 17:48 Dose: 20 mg Furosemide (Lasix) 40 mg IVP DAILY [facility] Last Admin: 10/01/16 10:28 Dose: 40 mg Home Med (Omeprazole [Omeprazole]) 20 mg PO DAILY [facility] Home Med (Riociguat [Adempas]) 1 mg PO TID [facility] Insulin Detemir (Levemir) 15 units SC HS [facility] Last Admin: 10/01/16 23:08 Dose: 15 units Insulin Human Lispro (Humalog) 10 units SC ACTID [facility] Last Admin: 10/01/16 17:47 Dose: 10 units Levothyroxine Sodium (Synthroid) 125 mcg PO DAILY@0630 [facility] Last Admin: 10/01/16 06:09 Dose: 125 mcg Lidocaine (Lidoderm) 1 ea TD DAILY PRN PRN Reason: Pain, moderate (4-7) Metformin HCl (Glucophage) 500 mg PO BIDWM [facility] Pantoprazole Sodium (Protonix Ec Tab) 20 mg PO DAILY [facility] Last Admin: 10/01/16 10:31 Dose: 20 mg Physical Exam - Head Exam Head Exam: ATRAUMATIC - Eye Exam Eye Exam: Normal appearance - ENT Exam ENT Exam: Mucous Membranes Dry - Respiratory Exam Respiratory Exam: NORMAL BREATHING PATTERN - Cardiovascular Exam Cardiovascular Exam: +S1, +S2 - GI/Abdominal Exam GI & Abdominal Exam: Normal Bowel Sounds - Extremities Exam Extremities exam: Positive for: pedal edema - Neurological Exam Neurological exam: Oriented x3 - Psychiatric Exam Psychiatric exam: Normal Affect, Normal Mood - Skin Skin Exam: Warm Results - Vital Signs Recent Vital Signs: Last Vital Signs Temp 98.3 F 10/01/16 23:52 Pulse 99 H 10/01/16 23:52 Resp 20 10/01/16 23:52 BP 141/62 10/01/16 23:52 Pulse Ox 96 10/01/16 23:52 - Labs Result Diagrams: 10/01/16 06:00 10/01/16 06:00 Labs: Laboratory Results - last 24 hr 10/01/16 10/01/16 10/01/16 06:00 06:00 06:00 WBC 7.2 RBC 3.65 L Hgb 10.6 L Hct 32.6 L MCV 89.1 MCH 29.0 MCHC 32.5 L RDW 15.7 H Plt Count 202 ESR 24 Sodium 142 Potassium 4.7 Chloride 109 H Carbon Dioxide 24 Anion Gap 14 BUN 16 Creatinine 0.9 Est GFR ( Amer) > 60 Est GFR (Non-Af Amer) > 60 Random Glucose 108 H Hemoglobin A1c Calcium 9.1 Total Bilirubin 0.5 AST 23 ALT 34 Alkaline Phosphatase 79 Total Creatine Kinase 39 C-React Prot High Sens Total Protein 6.0 L Albumin 3.5 Globulin 2.4 Albumin/Globulin Ratio 1.5 Vitamin B12 225 L TSH 3rd Generation 0.15 L Rheum Arthritis Panel Negative RPR Nonreactive 10/01/16 10/01/16 06:00 06:00 WBC RBC Hgb Hct MCV MCH MCHC RDW Plt Count ESR Sodium Potassium Chloride Carbon Dioxide Anion Gap BUN Creatinine Est GFR ( Amer) Est GFR (Non-Af Amer) Random Glucose Hemoglobin A1c 8.7 H Calcium Total Bilirubin AST ALT Alkaline Phosphatase Total Creatine Kinase C-React Prot High Sens > 15.00 H Total Protein Albumin Globulin Albumin/Globulin Ratio Vitamin B12 TSH 3rd Generation Rheum Arthritis Panel RPR Assessment & Plan (1) Anemia Assessment and Plan: will check ferritin, retic count, folate, FOBT to further characterize B12 noted low; will start IM b12 element of multiple myeloma Status: Chronic (2) Multiple myeloma Assessment and Plan: on single agent dexamethasone 20mg once weekly (Mondays) repeat myeloma markers Thank you for this interesting consult. Status: Chronic
[2016-10-02] MEDS: Levothyroxine 125 MCG TAB PO SCH (05:51)
[2016-10-02] MEDS: Insulin Lispro (humaLOG) 100 Units/ml Inj SC SCH ×3 (07:30→17:31)
[2016-10-02] MEDS: Pantoprazole 20 mg EC Tab PO SCH (09:15)
[2016-10-02] MEDS: Enoxaparin 40 mg Syringe SC SCH (09:17)
[2016-10-02 09:20] LABS: CERULOPLASMIN 33 mg/dL (18-53)
--- NOTE | 2016-10-02 09:30 | CP.PCM.PN ---
Subjective - Date & Time of Evaluation Date of Evaluation: 10/02/16 Time of Evaluation: 07:45 - Subjective Subjective: Patient seen and examined at bedside, in no acute distress. Reports her body and extremity tremors continue to be intermittent. Her daughter will bring in her pulmonary HTN medication today as we do not have it on formulary. Her SOB has mildly improved, she remains on 2L O2 via nasal cannula. Today she has complaint of a non productive cough. Denies chest pain, weakness, dizziness or visual changes. Objective - Vital Signs/Intake and Output Vital Signs (last 24 hours): Temp Pulse Resp BP Pulse Ox 98.1 F 80 18 126/73 98 10/02/16 08:03 10/02/16 08:03 10/02/16 08:03 10/02/16 09:16 10/02/16 08:03 Intake and Output: 10/02/16 10/02/16 06:59 18:59 Intake Total 1200 Balance 1200 - Medications Medications: Current Medications Albuterol/Ipratropium (Duoneb 3 Mg/0.5 Mg (3 Ml) Ud) 3 ml INH RQ4 PRN PRN Reason: Shortness of Breath Last Admin: 10/01/16 23:32 Dose: 3 ml Aspirin (Ecotrin) 81 mg PO DAILY [facility] Last Admin: 10/02/16 09:14 Dose: 81 mg Atorvastatin Calcium (Lipitor) 20 mg PO QPM [facility] Last Admin: 10/01/16 17:48 Dose: 20 mg Benztropine Mesylate (Cogentin) 1 mg PO Q8@0000,0800,1600 [facility] Last Admin: 10/02/16 09:14 Dose: 1 mg Buspirone HCl (Buspar) 10 mg PO BID [facility] Last Admin: 10/02/16 09:15 Dose: 10 mg Clonazepam (Klonopin) 0.5 mg PO HS [facility] Last Admin: 10/01/16 22:54 Dose: 0.5 mg Cyanocobalamin (Vitamin B12 1000 Mcg/Ml Inj) 1,000 mcg IM DAILY [facility] Last Admin: 10/02/16 09:17 Dose: 1,000 mcg Dexamethasone (Decadron) 20 mg PO Mo@0900 [facility] Enalapril Maleate (Vasotec) 2.5 mg PO DAILY [facility] Last Admin: 10/02/16 09:15 Dose: 2.5 mg Enoxaparin Sodium (Lovenox) 40 mg SC DAILY [facility] PRN Reason: Protocol Last Admin: 10/02/16 09:17 Dose: 40 mg Ergocalciferol (Drisdol 50,000 Intl Units Cap) 1 cap PO FR [facility] Escitalopram Oxalate (Lexapro) 20 mg PO DAILY [facility] Last Admin: 10/02/16 09:14 Dose: 20 mg Famotidine (Pepcid) 20 mg PO BID [facility] Last Admin: 10/02/16 09:14 Dose: 20 mg Furosemide (Lasix) 40 mg IVP DAILY [facility] Last Admin: 10/02/16 09:16 Dose: 40 mg Guaifenesin (Robitussin) 200 mg PO Q6 PRN PRN Reason: Cough Home Med (Omeprazole [Omeprazole]) 20 mg PO DAILY [facility] Home Med (Riociguat [Adempas]) 1 mg PO TID [facility] Insulin Detemir (Levemir) 15 units SC HS [facility] Last Admin: 10/01/16 23:08 Dose: 15 units Insulin Human Lispro (Humalog) 10 units SC ACTID [facility] Last Admin: 10/02/16 07:30 Dose: Not Given Levothyroxine Sodium (Synthroid) 125 mcg PO DAILY@0630 [facility] Last Admin: 10/02/16 05:51 Dose: 125 mcg Lidocaine (Lidoderm) 1 ea TD DAILY PRN PRN Reason: Pain, moderate (4-7) Metformin HCl (Glucophage) 500 mg PO BIDWM [facility] Last Admin: 10/02/16 09:15 Dose: 500 mg Pantoprazole Sodium (Protonix Ec Tab) 20 mg PO DAILY [facility] Last Admin: 10/02/16 09:15 Dose: 20 mg - Labs Labs: 10/01/16 06:00 10/01/16 06:00 PT 11.8 Seconds (9.8-13.1) 09/30/16 13:32 INR 1.0 (0.9-1.2) 09/30/16 13:32 - Constitutional Appears: Chronically Ill, Other (mild resting tremor present -worse on right hand) - Head Exam Head Exam: ATRAUMATIC, NORMOCEPHALIC - Eye Exam Eye Exam: EOMI, PERRL - ENT Exam ENT Exam: Mucous Membranes Moist - Neck Exam Neck Exam: Full ROM. absent: Lymphadenopathy - Respiratory Exam Respiratory Exam: Clear to Ausculation Bilateral, NORMAL BREATHING PATTERN (on 2L O2 via nasal cannula) - Cardiovascular Exam Cardiovascular Exam: REGULAR RHYTHM, +S1, +S2 - GI/Abdominal Exam GI & Abdominal Exam: Soft (obese). absent: Distended, Tenderness - Extremities Exam Extremities Exam: Full ROM, Pedal Edema (+1 bilaterally) - Back Exam Back Exam: absent: CVA tenderness (L), CVA tenderness (R) - Neurological Exam Neurological Exam: Alert, Awake, CN II-XII Intact, Oriented x3 - Psychiatric Exam Psychiatric exam: Flat Affect - Skin Skin Exam: Dry, Intact, Warm Assessment and Plan - Assessment and Plan (Free Text) Assessment: 70 yr old F admitted for worsening SOB and whole body/extremity tremors at rest. D-dimer noted to be elevated, CTA negative for PE/US negative for DVT. Patients SOB mildly improved on 2L supplemental O2 via nasal cannula. Neurology is on board, MRI brain pending. Heme/Onc on board, labs pending. Plan: Dyspnea -stable, chronic, on O2 at home -bilateral lower extremity edema -BNP 6830 -Monitor O2 status -Duonebs prn, Lasix -Monitor weights Abnormal involuntary movements -full body dyskinesia without involvement of face -Possibly drug related, held abilify at this time -Neurology consulted: f/u MRI brain without contrast , start Cogentin 1mg PO TID , f/u labs -EEG ordered HTN -controlled, chronic -continue home med: Enalapril 2.5mg PO daily CHF diastolic (Compensated) -Echo: LVEF 65-70%, right ventricular systolic pressure ~78mmHg compatible with severe pulmonary HTN -Lasix 40mg IVP daily (at home pt takes Lasix 40mg PO every OTHER day) -Monitor I&O -BNP 6830 COPD -Stable, O2 Sat 97% on 2L NC -On home O2 -Duonebs Q6H PRN SOB Insulin dependent diabetes mellitus type 2 -Last HgbA1c: 8.7% on 07/02/16 -Continue home meds: Metformin 500mg PO BID, Levemir 15 units SC HS, Humalog 10 units SC ACTID -Accuchecks -Hypoglycemia protocol Pulmonary Hypertension-Severe -chronic -EKG with LA enlargement -s/p Right heart catheterization on 01/29/[address] Cady Angel -Pulmonary management previously as per Dr Blayne Moy (Riociguat) 1mg PO TID Multiple Myeloma/Anemia -stable, chronic -heme/onc consult: Dr Vilchis, (sees her as outpt), f/u labs ordered -On single agent Dexamethasone 20mg PO once weekly (on mondays) Hypothyroidism -TSH: 0.15 -continue with home med: Levothyroxine 125mcg PO QD -will repeat TSH as outpatient and adjust medication as indicated Depression -stable -continue with home meds (Buspirone 10mg PO BID, Klonopin 0.5mg PO QHS, Lexapro 20mg PO QD) -held abilify due to possible cause of restless movements Sleep apnea -Patient has own CPAP, use HS DVT/GI prophylaxis -h/o of PE, not on anticoagulation at this time according to chart, verify with daughter/med sheet she is bringing in -Lovenox 40mg SC QD -Pepcid 20mg PO QD
--- NOTE | 2016-10-02 10:11 | MRI ---
PROCEDURE: MRI BRAIN WITHOUT CONTRAST HISTORY: mid brain stroke Vs lesion COMPARISON: None. TECHNIQUE: Multiplanar, multisequence MR images of the brain were obtained without intravenous contrast enhancement. FINDINGS: HEMORRHAGE: None DWI: No evidence of an acute or early subacute infarction. BRAIN PARENCHYMA: No mass effect or edema. No significant atrophy. No chronic white matter ischemic change. VENTRICLES: Unremarkable. No hydrocephalus. CRANIUM: Small low signal nodules seen within the subcutaneous soft tissues of the occipital parietal scalp, possibly sebaceous cysts. ORBITS: Grossly unremarkable. PARANASAL SINUSES/MASTOIDS: Clear VASCULAR SYSTEM: Skull base flow voids intact. OTHER FINDINGS: Incidentally noted "Empty sella", of no probable clinical significance. IMPRESSION: No evidence of acute infarct. No intracranial mass or hemorrhage. Preliminary interpretation of this examination was reported by [facility] at 7:47 p.m. on 10/01/2016. There is concurrence of this report with the preliminary interpretation.
[2016-10-02] MEDS ORDERED: Ergocalciferol 50,000 Intl Units Cap PO SCH (19:13)
[2016-10-02] MEDS: guaiFENesin 200 mg/10 ml Syrup UD PO PRN (21:36)
[2016-10-02] MEDS: Insulin Detemir 100 Units/ml Inj SC SCH (21:37)
[2016-10-02] MEDS: Albuterol-Ipratrop 3 mg / 0.5 (3 ml) UD INH PRN (21:43)
--- NOTE | 2016-10-03 01:16 | PN ---
NEUROLOGICAL PROBLEM: Parkinson syndrome, neuroleptic induced resting tremor. PHYSICAL EXAMINATION: VITAL SIGNS: Blood pressure 97/55, mean arterial pressure of 69, respiratory rate is 16, temperature afebrile. Her involuntary movement is somewhat decreased to compare with two days ago on the day of the admission. Mentation is normal. Rest of the examination was unchanged to compare with the previous exam. Her blood workup, her ceruloplasmin level was normal and B12 was low, has been on supplemental with medication. EEG does not show any focal slowing or paroxysmal activities. Continue Cogentin for now. Neuroleptic should be on hold. 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 The patient will be followed closely with you. Patrick Doyle MD
[2016-10-03] MEDS: Albuterol-Ipratrop 3 mg / 0.5 (3 ml) UD INH PRN ×3 (03:06→19:10)
[2016-10-03] MEDS: Levothyroxine 125 MCG TAB PO SCH (06:36)
[2016-10-03] MEDS: Insulin Lispro (humaLOG) 100 Units/ml Inj SC SCH ×3 (08:48→16:54)
[2016-10-03] MEDS: Enoxaparin 40 mg Syringe SC SCH (08:58)
[2016-10-03] MEDS: Pantoprazole 20 mg EC Tab PO SCH (08:59)
--- NOTE | 2016-10-03 12:36 | CP.PCM.PN ---
Subjective - Date & Time of Evaluation Date of Evaluation: 10/02/16 Time of Evaluation: 20:00 - Subjective Subjective: Cont. to have involuntary movements of extermities. Objective - Vital Signs/Intake and Output Vital Signs (last 24 hours): Temp Pulse Resp BP Pulse Ox 97.5 F L 84 18 131/57 L 97 10/03/16 12:16 10/03/16 12:16 10/03/16 12:16 10/03/16 12:16 10/03/16 12:16 Intake and Output: 10/03/16 10/03/16 06:59 18:59 Intake Total 240 Balance 240 - Medications Medications: Current Medications Albuterol/Ipratropium (Duoneb 3 Mg/0.5 Mg (3 Ml) Ud) 3 ml INH RQ4 PRN PRN Reason: Shortness of Breath Last Admin: 10/03/16 08:17 Dose: 3 ml Aspirin (Ecotrin) 81 mg PO DAILY [facility] Last Admin: 10/03/16 08:48 Dose: 81 mg Atorvastatin Calcium (Lipitor) 20 mg PO QPM [facility] Last Admin: 10/02/16 17:32 Dose: 20 mg Benztropine Mesylate (Cogentin) 1 mg PO Q8@0000,0800,1600 [facility] Last Admin: 10/03/16 08:47 Dose: 1 mg Buspirone HCl (Buspar) 10 mg PO BID [facility] Last Admin: 10/03/16 08:47 Dose: 10 mg Clonazepam (Klonopin) 0.5 mg PO HS [facility] Last Admin: 10/02/16 21:36 Dose: 0.5 mg Cyanocobalamin (Vitamin B12 1000 Mcg/Ml Inj) 1,000 mcg IM DAILY [facility] Last Admin: 10/03/16 08:59 Dose: 1,000 mcg Dexamethasone (Decadron) 20 mg PO Mo@0900 [facility] Enalapril Maleate (Vasotec) 2.5 mg PO DAILY [facility] Last Admin: 10/03/16 08:59 Dose: 2.5 mg Enoxaparin Sodium (Lovenox) 40 mg SC DAILY [facility] PRN Reason: Protocol Last Admin: 10/03/16 08:58 Dose: 40 mg Ergocalciferol (Drisdol 50,000 Intl Units Cap) 1 cap PO FR [facility] Last Admin: 10/02/16 18:27 Dose: 1 cap Escitalopram Oxalate (Lexapro) 20 mg PO DAILY [facility] Last Admin: 10/03/16 08:54 Dose: 20 mg Famotidine (Pepcid) 20 mg PO BID [facility] Last Admin: 10/03/16 08:59 Dose: 20 mg Furosemide (Lasix) 40 mg IVP DAILY [facility] Last Admin: 10/03/16 08:50 Dose: 40 mg Guaifenesin (Robitussin) 200 mg PO Q6 PRN PRN Reason: Cough Last Admin: 10/02/16 21:36 Dose: 200 mg Home Med (Riociguat [Adempas]) 1 mg PO TID [facility] Insulin Detemir (Levemir) 15 units SC HS [facility] Last Admin: 10/02/16 21:37 Dose: 15 units Insulin Human Lispro (Humalog) 10 units SC ACTID [facility] Last Admin: 10/03/16 08:48 Dose: 10 units Levothyroxine Sodium (Synthroid) 125 mcg PO DAILY@0630 [facility] Last Admin: 10/03/16 06:36 Dose: 125 mcg Lidocaine (Lidoderm) 1 ea TD DAILY PRN PRN Reason: Pain, moderate (4-7) Metformin HCl (Glucophage) 500 mg PO BIDWM [facility] Last Admin: 10/03/16 08:48 Dose: 500 mg Pantoprazole Sodium (Protonix Ec Tab) 20 mg PO DAILY [facility] Last Admin: 10/03/16 08:59 Dose: 20 mg - Labs Labs: 10/01/16 06:00 10/01/16 06:00 PT 11.8 Seconds (9.8-13.1) 09/30/16 13:32 INR 1.0 (0.9-1.2) 09/30/16 13:32 - Head Exam Head Exam: ATRAUMATIC - Eye Exam Eye Exam: Normal appearance - ENT Exam ENT Exam: Mucous Membranes Dry - Respiratory Exam Respiratory Exam: NORMAL BREATHING PATTERN - Cardiovascular Exam Cardiovascular Exam: +S1, +S2 - GI/Abdominal Exam GI & Abdominal Exam: Normal Bowel Sounds - Extremities Exam Extremities Exam: Normal Inspection - Neurological Exam Neurological Exam: Oriented x3 - Psychiatric Exam Psychiatric exam: Normal Affect, Normal Mood - Skin Skin Exam: Warm Assessment and Plan (1) Anemia Assessment & Plan: b12 deficiency on IM b12 multiple myeloma Status: Chronic (2) Multiple myeloma Assessment & Plan: on weekly dexamethasone repeat myeloma staging sent. Status: Chronic
--- NOTE | 2016-10-03 16:58 | CP.PCM.PN ---
Subjective - Date & Time of Evaluation Date of Evaluation: 10/03/16 Time of Evaluation: 17:00 - Subjective Subjective: Has shaking of extremities. Objective - Vital Signs/Intake and Output Vital Signs (last 24 hours): Temp Pulse Resp BP Pulse Ox 97.5 F L 83 18 129/66 97 10/03/16 16:02 10/03/16 16:02 10/03/16 16:02 10/03/16 16:02 10/03/16 16:02 Intake and Output: 10/03/16 10/03/16 06:59 18:59 Intake Total 240 Balance 240 - Medications Medications: Current Medications Albuterol/Ipratropium (Duoneb 3 Mg/0.5 Mg (3 Ml) Ud) 3 ml INH RQ4 PRN PRN Reason: Shortness of Breath Last Admin: 10/03/16 08:17 Dose: 3 ml Aspirin (Ecotrin) 81 mg PO DAILY [facility] Last Admin: 10/03/16 08:48 Dose: 81 mg Atorvastatin Calcium (Lipitor) 20 mg PO QPM [facility] Last Admin: 10/02/16 17:32 Dose: 20 mg Benztropine Mesylate (Cogentin) 1 mg PO Q8@0000,0800,1600 [facility] Last Admin: 10/03/16 16:53 Dose: 1 mg Buspirone HCl (Buspar) 10 mg PO BID [facility] Last Admin: 10/03/16 16:53 Dose: 10 mg Clonazepam (Klonopin) 0.5 mg PO HS [facility] Last Admin: 10/02/16 21:36 Dose: 0.5 mg Cyanocobalamin (Vitamin B12 1000 Mcg/Ml Inj) 1,000 mcg IM DAILY [facility] Last Admin: 10/03/16 08:59 Dose: 1,000 mcg Dexamethasone (Decadron) 20 mg PO Mo@0900 [facility] Enalapril Maleate (Vasotec) 2.5 mg PO DAILY [facility] Last Admin: 10/03/16 08:59 Dose: 2.5 mg Enoxaparin Sodium (Lovenox) 40 mg SC DAILY [facility] PRN Reason: Protocol Last Admin: 10/03/16 08:58 Dose: 40 mg Ergocalciferol (Drisdol 50,000 Intl Units Cap) 1 cap PO FR [facility] Last Admin: 10/02/16 18:27 Dose: 1 cap Escitalopram Oxalate (Lexapro) 20 mg PO DAILY [facility] Last Admin: 10/03/16 08:54 Dose: 20 mg Famotidine (Pepcid) 20 mg PO BID [facility] Last Admin: 10/03/16 16:56 Dose: 20 mg Furosemide (Lasix) 40 mg IVP DAILY [facility] Last Admin: 10/03/16 08:50 Dose: 40 mg Guaifenesin (Robitussin) 200 mg PO Q6 PRN PRN Reason: Cough Last Admin: 10/02/16 21:36 Dose: 200 mg Home Med (Riociguat [Adempas]) 1 mg PO TID [facility] Insulin Detemir (Levemir) 15 units SC HS [facility] Last Admin: 10/02/16 21:37 Dose: 15 units Insulin Human Lispro (Humalog) 10 units SC ACTID [facility] Last Admin: 10/03/16 16:54 Dose: 10 units Levothyroxine Sodium (Synthroid) 125 mcg PO DAILY@0630 [facility] Last Admin: 10/03/16 06:36 Dose: 125 mcg Lidocaine (Lidoderm) 1 ea TD DAILY PRN PRN Reason: Pain, moderate (4-7) Metformin HCl (Glucophage) 500 mg PO BIDWM [facility] Last Admin: 10/03/16 16:54 Dose: 500 mg Pantoprazole Sodium (Protonix Ec Tab) 20 mg PO DAILY [facility] Last Admin: 10/03/16 08:59 Dose: 20 mg - Labs Labs: 10/01/16 06:00 10/01/16 06:00 PT 11.8 Seconds (9.8-13.1) 09/30/16 13:32 INR 1.0 (0.9-1.2) 09/30/16 13:32 - Head Exam Head Exam: ATRAUMATIC - Eye Exam Eye Exam: Normal appearance - ENT Exam ENT Exam: Mucous Membranes Dry - Respiratory Exam Respiratory Exam: NORMAL BREATHING PATTERN - Cardiovascular Exam Cardiovascular Exam: +S1, +S2 - GI/Abdominal Exam GI & Abdominal Exam: Normal Bowel Sounds - Extremities Exam Extremities Exam: Normal Inspection Assessment and Plan (1) Anemia Assessment & Plan: b12 deficiency on IM B12 multiple myeloma Status: Chronic (2) Multiple myeloma Assessment & Plan: on weekly steroids Status: Chronic
[2016-10-03] MEDS: guaiFENesin 200 mg/10 ml Syrup UD PO PRN (18:52)
[2016-10-03] MEDS: Lidocaine 5% Patch TD PRN (19:28)
--- NOTE | 2016-10-03 21:07 | CP.PCM.PN ---
Subjective - Date & Time of Evaluation Date of Evaluation: 10/03/16 Time of Evaluation: 08:25 - Subjective Subjective: Patient seen and examined at bedside. Bilateral upper extremity tremor prominent while patient attempted to use her cell phone. SOB persist while on O2 via nasal cannula. Discussed with patient her daughter will bring her pulmonary HTN medication today which we do not have on formulary. Objective - Vital Signs/Intake and Output Vital Signs (last 24 hours): Temp Pulse Resp BP Pulse Ox 98.6 F 94 H 18 122/77 98 10/03/16 19:57 10/03/16 19:57 10/03/16 19:57 10/03/16 19:57 10/03/16 19:57 Intake and Output: 10/03/16 10/04/16 18:59 06:59 Intake Total 1000 Balance 1000 - Medications Medications: Current Medications Albuterol/Ipratropium (Duoneb 3 Mg/0.5 Mg (3 Ml) Ud) 3 ml INH RQ4 PRN PRN Reason: Shortness of Breath Last Admin: 10/03/16 19:10 Dose: 3 ml Aspirin (Ecotrin) 81 mg PO DAILY [facility] Last Admin: 10/03/16 08:48 Dose: 81 mg Atorvastatin Calcium (Lipitor) 20 mg PO QPM [facility] Last Admin: 10/03/16 17:02 Dose: 20 mg Benztropine Mesylate (Cogentin) 1 mg PO Q8@0000,0800,1600 [facility] Last Admin: 10/03/16 16:53 Dose: 1 mg Buspirone HCl (Buspar) 10 mg PO BID [facility] Last Admin: 10/03/16 16:53 Dose: 10 mg Clonazepam (Klonopin) 0.5 mg PO HS [facility] Last Admin: 10/02/16 21:36 Dose: 0.5 mg Cyanocobalamin (Vitamin B12 1000 Mcg/Ml Inj) 1,000 mcg IM DAILY [facility] Last Admin: 10/03/16 08:59 Dose: 1,000 mcg Dexamethasone (Decadron) 20 mg PO Mo@0900 [facility] Enalapril Maleate (Vasotec) 2.5 mg PO DAILY [facility] Last Admin: 10/03/16 08:59 Dose: 2.5 mg Enoxaparin Sodium (Lovenox) 40 mg SC DAILY [facility] PRN Reason: Protocol Last Admin: 10/03/16 08:58 Dose: 40 mg Ergocalciferol (Drisdol 50,000 Intl Units Cap) 1 cap PO FR [facility] Last Admin: 10/02/16 18:27 Dose: 1 cap Escitalopram Oxalate (Lexapro) 20 mg PO DAILY [facility] Last Admin: 10/03/16 08:54 Dose: 20 mg Famotidine (Pepcid) 20 mg PO BID [facility] Last Admin: 10/03/16 16:56 Dose: 20 mg Furosemide (Lasix) 40 mg IVP DAILY [facility] Last Admin: 10/03/16 08:50 Dose: 40 mg Guaifenesin (Robitussin) 200 mg PO Q6 PRN PRN Reason: Cough Last Admin: 10/03/16 18:52 Dose: 200 mg Home Med (Riociguat [Adempas]) 1 mg PO TID [facility] Insulin Detemir (Levemir) 15 units SC HS [facility] Last Admin: 10/02/16 21:37 Dose: 15 units Insulin Human Lispro (Humalog) 10 units SC ACTID [facility] Last Admin: 10/03/16 16:54 Dose: 10 units Levothyroxine Sodium (Synthroid) 125 mcg PO DAILY@0630 [facility] Last Admin: 10/03/16 06:36 Dose: 125 mcg Lidocaine (Lidoderm) 1 ea TD DAILY PRN PRN Reason: Pain, moderate (4-7) Last Admin: 10/03/16 19:28 Dose: 1 ea Metformin HCl (Glucophage) 500 mg PO BIDWM [facility] Last Admin: 10/03/16 16:54 Dose: 500 mg Pantoprazole Sodium (Protonix Ec Tab) 20 mg PO DAILY [facility] Last Admin: 10/03/16 08:59 Dose: 20 mg - Labs Labs: 10/01/16 06:00 10/01/16 06:00 PT 11.8 Seconds (9.8-13.1) 09/30/16 13:32 INR 1.0 (0.9-1.2) 09/30/16 13:32 - Constitutional Appears: Chronically Ill, Other (intention tremor prominent in bilateral upper extremities) - Head Exam Head Exam: ATRAUMATIC, NORMOCEPHALIC - Eye Exam Eye Exam: EOMI, PERRL - ENT Exam ENT Exam: Mucous Membranes Moist - Neck Exam Neck Exam: Full ROM. absent: Lymphadenopathy - Respiratory Exam Respiratory Exam: Rales (mild in bilateral lower lobes, on 2L O2 via nasal cannula) - Cardiovascular Exam Cardiovascular Exam: REGULAR RHYTHM, +S1, +S2 - GI/Abdominal Exam GI & Abdominal Exam: Soft (obese). absent: Tenderness - Extremities Exam Extremities Exam: Full ROM (prominent intention tremor noted in bilateral upper extremities), Pedal Edema (+ 1 bilaterally, mild resting tremor noted on b/l lower extremities) - Back Exam Back Exam: absent: CVA tenderness (L), CVA tenderness (R) - Neurological Exam Neurological Exam: Alert, Awake, CN II-XII Intact, Oriented x3 - Psychiatric Exam Psychiatric exam: Flat Affect - Skin Skin Exam: Dry, Intact, Warm Assessment and Plan - Assessment and Plan (Free Text) Assessment: 70 yr old F admitted for worsening SOB and whole body/extremity tremors at rest. D-dimer noted to be elevated, CTA negative for PE/US negative for DVT. Patients SOB mildly improved on 2L supplemental O2 via nasal cannula. Neurology is on board, MRI brain wnl. Heme/Onc on board, labs pending. Plan: Dyspnea -stable, chronic, on O2 at home -bilateral lower extremity edema -BNP 6830 -Monitor O2 status -Duonebs prn, Lasix -Monitor weights Abnormal involuntary movements -full body dyskinesia without involvement of face -Possibly drug related, held abilify at this time -Neurology consulted: Cogentin 1mg PO TID, f/u labs -MRI brain without contrast: no evidence of acute infarct, no intracranial mass or hemorrhage HTN -controlled, chronic -continue home med: Enalapril 2.5mg PO daily CHF diastolic (Compensated) -Echo: LVEF 65-70%, right ventricular systolic pressure ~78mmHg compatible with severe pulmonary HTN -Lasix 40mg IVP daily (at home pt takes Lasix 40mg PO every OTHER day) -Monitor I&O -BNP 6830 COPD -Stable, O2 Sat 97% on 2L NC -On home O2 -Duonebs Q6H PRN SOB Insulin dependent diabetes mellitus type 2 -Last HgbA1c: 8.7% on 07/02/16 -Continue home meds: Metformin 500mg PO BID, Levemir 15 units SC HS, Humalog 10 units SC ACTID -Accuchecks -Hypoglycemia protocol Pulmonary Hypertension-Severe -chronic -EKG with LA enlargement -s/p Right heart catheterization on 01/29/[address] Cady Angel -Pulmonary management previously as per Dr Blayne Moy (Riociguat) 1mg PO TID (not on formulary, multiple calls to daughter, states she will bring in the medicine today) Multiple Myeloma/Anemia -stable, chronic -heme/onc consult: Dr Vilchis, (sees her as outpt), f/u labs ordered -On single agent Dexamethasone 20mg PO once weekly (on mondays) Hypothyroidism -TSH: 0.15 -continue with home med: Levothyroxine 125mcg PO QD -will repeat TSH as outpatient and adjust medication as indicated Depression -stable -continue with home meds (Buspirone 10mg PO BID, Klonopin 0.5mg PO QHS, Lexapro 20mg PO QD) -held abilify due to possible cause of restless movements Sleep apnea -Patient has own CPAP, use HS DVT/GI prophylaxis -h/o of PE, not on anticoagulation at this time according to chart, verify with daughter/med sheet she is bringing in (multiple calls to daughter to bring in meds and list, she has not brought them in yet) -Lovenox 40mg SC QD -Pepcid 20mg PO QD
[2016-10-03] MEDS: Insulin Detemir 100 Units/ml Inj SC SCH (21:38)
[2016-10-04] MEDS: Albuterol-Ipratrop 3 mg / 0.5 (3 ml) UD INH PRN ×3 (00:51→22:40)
[2016-10-04] MEDS: guaiFENesin 200 mg/10 ml Syrup UD PO PRN (02:50)
[2016-10-04] MEDS: Levothyroxine 125 MCG TAB PO SCH (06:31)
[2016-10-04] MEDS: Enoxaparin 40 mg Syringe SC SCH (09:17)
[2016-10-04] MEDS: Insulin Lispro (humaLOG) 100 Units/ml Inj SC SCH ×3 (09:21→17:29)
[2016-10-04] MEDS: Pantoprazole 20 mg EC Tab PO SCH (09:37)
[2016-10-04] MEDS: RIOCIGUAT 1 MG PO SCH ×3 (11:07→17:31)
--- NOTE | 2016-10-04 13:34 | CP.PCM.PN ---
Subjective - Date & Time of Evaluation Date of Evaluation: 10/04/16 Time of Evaluation: 08:00 - Subjective Subjective: Pt seen and examined at bedside, does not have any complaints. states she got a little dizzy this morning when she attempted to kapoor out of bed, but laid back down and got up slowly and was fine. noticed her right side of her cheek was swollen, states she had not noticed it, but denies any pain, or difficulty opening or closing her mouth, states it has happened in the past. denies her face being itchy, tender. she does feel her tremor has improved. Objective - Vital Signs/Intake and Output Vital Signs (last 24 hours): Temp Pulse Resp BP Pulse Ox 98.2 F 84 18 130/52 L 96 10/04/16 12:00 10/04/16 12:00 10/04/16 12:00 10/04/16 12:00 10/04/16 12:00 - Medications Medications: Current Medications Albuterol/Ipratropium (Duoneb 3 Mg/0.5 Mg (3 Ml) Ud) 3 ml INH RQ4 PRN PRN Reason: Shortness of Breath Last Admin: 10/04/16 09:35 Dose: 3 ml Aspirin (Ecotrin) 81 mg PO DAILY [facility] Last Admin: 10/04/16 09:20 Dose: 81 mg Atorvastatin Calcium (Lipitor) 20 mg PO QPM [facility] Last Admin: 10/03/16 17:02 Dose: 20 mg Benztropine Mesylate (Cogentin) 1 mg PO Q8@0000,0800,1600 [facility] Last Admin: 10/04/16 09:20 Dose: 1 mg Buspirone HCl (Buspar) 10 mg PO BID [facility] Last Admin: 10/04/16 09:19 Dose: 10 mg Clonazepam (Klonopin) 0.5 mg PO HS [facility] Last Admin: 10/03/16 21:13 Dose: 0.5 mg Cyanocobalamin (Vitamin B12 1000 Mcg/Ml Inj) 1,000 mcg IM DAILY [facility] Last Admin: 10/04/16 09:44 Dose: 1,000 mcg Dexamethasone (Decadron) 20 mg PO Mo@0900 [facility] Enalapril Maleate (Vasotec) 2.5 mg PO DAILY@0900 [facility] Last Admin: 10/04/16 09:39 Dose: 2.5 mg Enoxaparin Sodium (Lovenox) 40 mg SC DAILY [facility] PRN Reason: Protocol Last Admin: 10/04/16 09:17 Dose: 40 mg Ergocalciferol (Drisdol 50,000 Intl Units Cap) 1 cap PO FR [facility] Last Admin: 10/02/16 18:27 Dose: 1 cap Escitalopram Oxalate (Lexapro) 20 mg PO DAILY [facility] Last Admin: 10/04/16 09:36 Dose: 20 mg Famotidine (Pepcid) 20 mg PO BID [facility] Last Admin: 10/04/16 09:38 Dose: 20 mg Furosemide (Lasix) 40 mg IVP DAILY [facility] Last Admin: 10/04/16 09:36 Dose: 40 mg Guaifenesin (Robitussin) 200 mg PO Q6 PRN PRN Reason: Cough Last Admin: 10/04/16 02:50 Dose: 200 mg Home Med (Riociguat [Adempas]) 1 mg PO TID@0900,1300,1700 [facility] Last Admin: 10/04/16 11:07 Dose: 1 mg Insulin Detemir (Levemir) 15 units SC HS [facility] Last Admin: 10/03/16 21:38 Dose: Not Given Insulin Human Lispro (Humalog) 10 units SC ACTID [facility] Last Admin: 10/04/16 09:21 Dose: 10 units Levothyroxine Sodium (Synthroid) 125 mcg PO DAILY@0630 [facility] Last Admin: 10/04/16 06:31 Dose: 125 mcg Lidocaine (Lidoderm) 1 ea TD DAILY PRN PRN Reason: Pain, moderate (4-7) Last Admin: 10/03/16 19:28 Dose: 1 ea Metformin HCl (Glucophage) 500 mg PO BIDWM [facility] Last Admin: 10/04/16 09:21 Dose: 500 mg Pantoprazole Sodium (Protonix Ec Tab) 20 mg PO DAILY [facility] Last Admin: 10/04/16 09:37 Dose: 20 mg - Labs Labs: 10/01/16 06:00 10/01/16 06:00 PT 11.8 Seconds (9.8-13.1) 09/30/16 13:32 INR 1.0 (0.9-1.2) 09/30/16 13:32 - Constitutional Appears: Non-toxic, No Acute Distress - Head Exam Additional comments: Right side of her cheek is swollen (new finding today), not tender, no rash, not cellulitic - ENT Exam ENT Exam: Mucous Membranes Moist - Respiratory Exam Respiratory Exam: Rales, NORMAL BREATHING PATTERN. absent: Respiratory Distress - Cardiovascular Exam Cardiovascular Exam: REGULAR RHYTHM, +S1, +S2 - GI/Abdominal Exam GI & Abdominal Exam: Soft, Normal Bowel Sounds - Extremities Exam Extremities Exam: absent: Calf Tenderness, Pedal Edema - Neurological Exam Neurological Exam: Alert, Awake Additional comments: action tremors still present Assessment and Plan - Assessment and Plan (Free Text) Assessment: 70 yr old F admitted for worsening SOB and whole body/extremity tremors at rest. D-dimer noted to be elevated, CTA negative for PE/US negative for DVT. Patients SOB mildly improved on 2L supplemental O2 via nasal cannula. Neurology is on board, MRI brain wnl. Heme/Onc on board, labs pending. Plan: Swollen right check -pt reports this happens on and off due to her steroid use -Not painful, able to open her mouth wide, no abnormality noted in side her mouth -will continue to monitor Dyspnea -stable, chronic, on O2 at home -bilateral lower extremity edema -BNP 6830 -Monitor O2 status -Duonebs prn, Lasix -Monitor weights Abnormal involuntary movements -full body dyskinesia without involvement of face -Possibly drug related, held abilify at this time -Neurology consulted: Cogentin 1mg PO TID, f/u labs -MRI brain without contrast: no evidence of acute infarct, no intracranial mass or hemorrhage HTN -controlled, chronic -continue home med: Enalapril 2.5mg PO daily CHF diastolic (Compensated) -Echo: LVEF 65-70%, right ventricular systolic pressure ~78mmHg compatible with severe pulmonary HTN -Lasix 40mg IVP daily (at home pt takes Lasix 40mg PO every OTHER day) -Monitor I&O -BNP 6830 COPD -Stable, O2 Sat 97% on 2L NC -On home O2 -Duonebs Q6H PRN SOB Insulin dependent diabetes mellitus type 2 -Last HgbA1c: 8.7% on 07/02/16 -Continue home meds: Metformin 500mg PO BID, Levemir 15 units SC HS, Humalog 10 units SC ACTID -Accuchecks -Hypoglycemia protocol Pulmonary Hypertension-Severe -chronic -EKG with LA enlargement -s/p Right heart catheterization on 01/29/[address] Cady Angel -Pulmonary management previously as per Dr Blayne Moy (Riociguat) 1mg PO TID -restarted as off this morning, pt grandson brought medication in Multiple Myeloma/Anemia -stable, chronic -heme/onc consult: Dr Vilchis, (sees her as outpt), f/u labs ordered -On single agent Dexamethasone 20mg PO once weekly (on mondays) Hypothyroidism -TSH: 0.15 -continue with home med: Levothyroxine 125mcg PO QD -will repeat TSH as outpatient and adjust medication as indicated Depression -stable -continue with home meds (Buspirone 10mg PO BID, Klonopin 0.5mg PO QHS, Lexapro 20mg PO QD) -held abilify due to possible cause of restless movements Sleep apnea -Patient has own CPAP, use HS -Pt daugther states cannot bring CPAP in, so pt will have to use hospital for now DVT/GI prophylaxis -h/o of PE, not on anticoagulation at this time according to chart, verify with daughter/med sheet she is bringing in (multiple calls to daughter to bring in meds and list, she has not brought them in yet) -Lovenox 40mg SC QD -Pepcid 20mg PO QD
[2016-10-04] MEDS: Lidocaine 5% Patch TD PRN (17:42)
--- NOTE | 2016-10-04 18:44 | CP.PCM.PN ---
Subjective - Date & Time of Evaluation Date of Evaluation: 10/04/16 Time of Evaluation: 17:00 - Subjective Subjective: Cont. to have tremors in extremities Objective - Vital Signs/Intake and Output Vital Signs (last 24 hours): Temp Pulse Resp BP Pulse Ox 98.1 F 86 16 119/63 99 10/04/16 16:28 10/04/16 16:28 10/04/16 16:28 10/04/16 16:28 10/04/16 16:28 - Medications Medications: Current Medications Albuterol/Ipratropium (Duoneb 3 Mg/0.5 Mg (3 Ml) Ud) 3 ml INH RQ4 PRN PRN Reason: Shortness of Breath Last Admin: 10/04/16 09:35 Dose: 3 ml Aspirin (Ecotrin) 81 mg PO DAILY [facility] Last Admin: 10/04/16 09:20 Dose: 81 mg Atorvastatin Calcium (Lipitor) 20 mg PO QPM [facility] Last Admin: 10/04/16 17:30 Dose: 20 mg Benztropine Mesylate (Cogentin) 1 mg PO Q8@0000,0800,1600 [facility] Last Admin: 10/04/16 17:28 Dose: 1 mg Buspirone HCl (Buspar) 10 mg PO BID [facility] Last Admin: 10/04/16 17:28 Dose: 10 mg Clonazepam (Klonopin) 0.5 mg PO HS [facility] Last Admin: 10/03/16 21:13 Dose: 0.5 mg Cyanocobalamin (Vitamin B12 1000 Mcg/Ml Inj) 1,000 mcg IM DAILY [facility] Last Admin: 10/04/16 09:44 Dose: 1,000 mcg Dexamethasone (Decadron) 20 mg PO Mo@0900 [facility] Enalapril Maleate (Vasotec) 2.5 mg PO DAILY@0900 [facility] Last Admin: 10/04/16 09:39 Dose: 2.5 mg Enoxaparin Sodium (Lovenox) 40 mg SC DAILY [facility] PRN Reason: Protocol Last Admin: 10/04/16 09:17 Dose: 40 mg Ergocalciferol (Drisdol 50,000 Intl Units Cap) 1 cap PO FR [facility] Last Admin: 10/02/16 18:27 Dose: 1 cap Escitalopram Oxalate (Lexapro) 20 mg PO DAILY [facility] Last Admin: 07/30/17 09:36 Dose: 20 mg Famotidine (Pepcid) 20 mg PO BID [facility] Last Admin: 10/04/16 17:30 Dose: 20 mg Furosemide (Lasix) 40 mg IVP DAILY [facility] Last Admin: 10/04/16 09:36 Dose: 40 mg Guaifenesin (Robitussin) 200 mg PO Q6 PRN PRN Reason: Cough Last Admin: 10/04/16 02:50 Dose: 200 mg Home Med (Riociguat [Adempas]) 1 mg PO TID@0900,1300,1700 [facility] Last Admin: 10/04/16 17:31 Dose: 1 mg Insulin Detemir (Levemir) 15 units SC HS [facility] Last Admin: 10/03/16 21:38 Dose: Not Given Insulin Human Lispro (Humalog) 10 units SC ACTID [facility] Last Admin: 10/04/16 17:29 Dose: 10 units Levothyroxine Sodium (Synthroid) 125 mcg PO DAILY@0630 [facility] Last Admin: 10/04/16 06:31 Dose: 125 mcg Lidocaine (Lidoderm) 1 ea TD DAILY PRN PRN Reason: Pain, moderate (4-7) Last Admin: 10/04/16 17:42 Dose: 1 ea Metformin HCl (Glucophage) 500 mg PO BIDWM [facility] Last Admin: 10/04/16 17:28 Dose: 500 mg Pantoprazole Sodium (Protonix Ec Tab) 20 mg PO DAILY [facility] Last Admin: 10/04/16 09:37 Dose: 20 mg - Labs Labs: 10/01/16 06:00 10/01/16 06:00 PT 11.8 Seconds (9.8-13.1) 09/30/16 13:32 INR 1.0 (0.9-1.2) 09/30/16 13:32 - Head Exam Head Exam: ATRAUMATIC - Eye Exam Eye Exam: Normal appearance - ENT Exam ENT Exam: Mucous Membranes Dry - Respiratory Exam Respiratory Exam: NORMAL BREATHING PATTERN - Cardiovascular Exam Cardiovascular Exam: +S1, +S2 - GI/Abdominal Exam GI & Abdominal Exam: Normal Bowel Sounds - Extremities Exam Extremities Exam: Normal Inspection Assessment and Plan (1) Anemia Assessment & Plan: B12 deficiency on IM B12 multiple myeloma Status: Chronic (2) Multiple myeloma Assessment & Plan: weekly dexamethasone (Mondays) Status: Chronic
[2016-10-04] MEDS: Insulin Detemir 100 Units/ml Inj SC SCH (21:25)
[2016-10-05] MEDS: Levothyroxine 125 MCG TAB PO SCH (05:35)
--- NOTE | 2016-10-05 08:25 | EEG ---
DATE: 09/30/2016 This is a 16-channel electroencephalogram of awake and drowsy adult. During the study, photic stimulation was performed, hyperventilation was not performed. The resting electroencephalogram consists of 20-30 microvolt, 6-7 Hz high theta activities noted at parietal and occipital leads. These activities are somewhat organized to form, 8-9 Hz moderate voltage alpha activities noted at parietal and occipital leads. Anteriorly, positive activities superimposed with 2-3 hertz of delta activities seen. The photic stimulation did not develop any response noted under 2-20 Hz. IMPRESSION: This is a normal electroencephalogram of awake and drowsy adult. During the study, neither electroencephalographic paroxysmal activities nor focal slowing noted. Patrick Doyle MD
[2016-10-05 08:45] LABS: METHYLMALONIC ACID,SERUM 407 nmol/L (87-318)
[2016-10-05] MEDS: RIOCIGUAT 1 MG PO SCH ×3 (09:25→17:27)
[2016-10-05] MEDS: Pantoprazole 20 mg EC Tab PO SCH (09:25)
[2016-10-05] MEDS: Enoxaparin 40 mg Syringe SC SCH (09:27)
[2016-10-05] MEDS: Insulin Lispro (humaLOG) 100 Units/ml Inj SC SCH ×2 (09:32→17:28)
[2016-10-05] MEDS: Lidocaine 5% Patch TD PRN (09:42)
[2016-10-05] MEDS: guaiFENesin 200 mg/10 ml Syrup UD PO PRN (09:48)
--- NOTE | 2016-10-05 10:04 | CP.PCM.PN ---
Subjective - Date & Time of Evaluation Date of Evaluation: 10/05/16 Time of Evaluation: 08:20 - Subjective Subjective: Patient seen and examined at bedside, in no acute distress, with visible bilateral upper extremity tremors. Comfortable on supplemental O2 via nasal cannula. Tolerating PO diet, with normal urine and stool output. Objective - Vital Signs/Intake and Output Vital Signs (last 24 hours): Temp Pulse Resp BP Pulse Ox 97.6 F 87 20 119/62 97 10/05/16 08:00 10/05/16 08:00 10/05/16 08:00 10/05/16 09:27 10/05/16 08:00 - Medications Medications: Current Medications Albuterol/Ipratropium (Duoneb 3 Mg/0.5 Mg (3 Ml) Ud) 3 ml INH RQ4 PRN PRN Reason: Shortness of Breath Last Admin: 10/04/16 22:40 Dose: 3 ml Aspirin (Ecotrin) 81 mg PO DAILY [facility] Last Admin: 10/05/16 09:24 Dose: 81 mg Atorvastatin Calcium (Lipitor) 20 mg PO QPM [facility] Last Admin: 10/04/16 17:30 Dose: 20 mg Benztropine Mesylate (Cogentin) 1 mg PO Q8@0000,0800,1600 [facility] Last Admin: 10/05/16 09:22 Dose: 1 mg Buspirone HCl (Buspar) 10 mg PO BID [facility] Last Admin: 10/05/16 09:23 Dose: 10 mg Clonazepam (Klonopin) 0.5 mg PO HS [facility] Last Admin: 10/04/16 21:24 Dose: 0.5 mg Cyanocobalamin (Vitamin B12 1000 Mcg/Ml Inj) 1,000 mcg IM DAILY [facility] Last Admin: 10/05/16 09:26 Dose: 1,000 mcg Dexamethasone (Decadron) 20 mg PO Mo@0900 [facility] Last Admin: 10/05/16 09:23 Dose: 20 mg Enalapril Maleate (Vasotec) 2.5 mg PO DAILY@0900 [facility] Last Admin: 10/05/16 09:26 Dose: 2.5 mg Enoxaparin Sodium (Lovenox) 40 mg SC DAILY [facility] PRN Reason: Protocol Last Admin: 10/05/16 09:27 Dose: 40 mg Ergocalciferol (Drisdol 50,000 Intl Units Cap) 1 cap PO FR [facility] Last Admin: 10/02/16 18:27 Dose: 1 cap Escitalopram Oxalate (Lexapro) 20 mg PO DAILY [facility] Last Admin: 10/05/16 09:27 Dose: 20 mg Famotidine (Pepcid) 20 mg PO BID [facility] Last Admin: 10/05/16 09:25 Dose: 20 mg Furosemide (Lasix) 40 mg IVP DAILY [facility] Last Admin: 10/05/16 09:27 Dose: 40 mg Guaifenesin (Robitussin) 200 mg PO Q6 PRN PRN Reason: Cough Last Admin: 10/05/16 09:48 Dose: 200 mg Home Med (Riociguat [Adempas]) 1 mg PO TID@0900,1300,1700 [facility] Last Admin: 10/05/16 09:25 Dose: 1 mg Insulin Detemir (Levemir) 15 units SC HS [facility] Last Admin: 10/04/16 21:25 Dose: Not Given Insulin Human Lispro (Humalog) 10 units SC ACTID [facility] Last Admin: 10/05/16 09:32 Dose: 10 units Levothyroxine Sodium (Synthroid) 125 mcg PO DAILY@0630 [facility] Last Admin: 10/05/16 05:35 Dose: 125 mcg Lidocaine (Lidoderm) 1 ea TD DAILY PRN PRN Reason: Pain, moderate (4-7) Last Admin: 10/05/16 09:42 Dose: 1 ea Metformin HCl (Glucophage) 500 mg PO BIDWM [facility] Last Admin: 10/05/16 09:24 Dose: 500 mg Pantoprazole Sodium (Protonix Ec Tab) 20 mg PO DAILY [facility] Last Admin: 10/05/16 09:25 Dose: 20 mg - Labs Labs: 10/01/16 06:00 10/01/16 06:00 PT 11.8 Seconds (9.8-13.1) 09/30/16 13:32 INR 1.0 (0.9-1.2) 09/30/16 13:32 - Constitutional Appears: Chronically Ill (intention tremor prominent in bilateral upper extremities) - Head Exam Head Exam: ATRAUMATIC, NORMOCEPHALIC - Eye Exam Eye Exam: EOMI, PERRL - ENT Exam ENT Exam: Mucous Membranes Moist - Neck Exam Neck Exam: absent: Lymphadenopathy - Respiratory Exam Respiratory Exam: Rales (mild, bilateral lower lobes), NORMAL BREATHING PATTERN (on 2L O2 via nasal cannula) - Cardiovascular Exam Cardiovascular Exam: REGULAR RHYTHM, +S1, +S2 - GI/Abdominal Exam GI & Abdominal Exam: Soft (obese), Normal Bowel Sounds - Extremities Exam Extremities Exam: Full ROM (bilateral uppe extremity intention tremor). absent : Calf Tenderness, Pedal Edema - Back Exam Back Exam: absent: CVA tenderness (L), CVA tenderness (R) - Neurological Exam Neurological Exam: Alert, Awake, CN II-XII Intact, Oriented x3 - Psychiatric Exam Psychiatric exam: Flat Affect, Normal Mood - Skin Skin Exam: Dry, Intact, Warm Assessment and Plan - Assessment and Plan (Free Text) Assessment: 70 yr old F admitted for worsening SOB and whole body/extremity tremors at rest. D-dimer noted to be elevated, CTA negative for PE/US negative for DVT. Patients SOB mildly improved on 2L supplemental O2 via nasal cannula. Neurology is on board, MRI brain wnl. Heme/Onc on board. PT has recommended TCU, SW working on discharge. Patient had one episode of vtach, resolved, cardiology consulted. Plan: Swollen right check -pt reports this occurs intermittently due to her steroid use -Not painful, able to open her mouth wide, no abnormality noted in side her mouth -will continue to monitor Dyspnea -stable, chronic, on O2 at home -bilateral lower extremity edema -BNP 6830 -Monitor O2 status -Duonebs prn, Lasix -Monitor weights Abnormal involuntary movements -full body dyskinesia without involvement of face -Possibly drug related, held abilify at this time -Neurology consulted: Cogentin 1mg PO TID, f/u labs -MRI brain without contrast: no evidence of acute infarct, no intracranial mass or hemorrhage HTN -controlled, chronic -continue home med: Enalapril 2.5mg PO daily CHF diastolic (Compensated) -Echo: LVEF 65-70%, right ventricular systolic pressure ~78mmHg compatible with severe pulmonary HTN -Lasix 40mg IVP daily (at home pt takes Lasix 40mg PO every OTHER day) -Monitor I&O -BNP 6830 COPD -Stable, O2 Sat 97% on 2L NC -On home O2 -Duonebs Q6H PRN SOB Insulin dependent diabetes mellitus type 2 -Last HgbA1c: 8.7% on 07/02/16 -Continue home meds: Metformin 500mg PO BID, Levemir 15 units SC HS, Humalog 10 units SC ACTID -Accuchecks -Hypoglycemia protocol Pulmonary Hypertension-Severe -chronic -EKG with LA enlargement -s/p Right heart catheterization on 01/29/[address] Cady Angel -Pulmonary management previously as per Dr Cisneros -Adempas (Riociguat) 1mg PO TID -restarted yesterday, pt grandson brought medication in Multiple Myeloma/Anemia -stable, chronic -heme/onc consult: Dr Vilchis, (sees her as outpt), f/u labs ordered -On single agent Dexamethasone 20mg PO once weekly (on mondays) Hypothyroidism -TSH: 0.15 -continue with home med: Levothyroxine 125mcg PO QD -will repeat TSH as outpatient and adjust medication as indicated Depression -stable -continue with home meds (Buspirone 10mg PO BID, Klonopin 0.5mg PO QHS, Lexapro 20mg PO QD) -held abilify due to possible cause of restless movements Sleep apnea -Patient has own CPAP, use HS -Pt daughter states cannot bring CPAP in, so pt will have to use hospital CPAP for now DVT/GI prophylaxis -h/o of PE, not on anticoagulation at this time according to chart, verify with daughter/med sheet she is bringing in (multiple calls to daughter to bring in meds and list, she has not brought them in yet) -Lovenox 40mg SC QD -Pepcid 20mg PO QD
[2016-10-05 11:46] LABS: ALB/GLOB RATIO 1.6 (1.0-2.1); ALBUMIN 4.1 g/dL (3.5-5.0); ALT/SGPT 39 U/L (9-52); AST/SGOT 27 U/L (14-36); BLOOD UREA NITROGEN 22 mg/dl (7-17); CALCIUM 8.9 mg/dL (8.4-10.2); GFR AFRICAN-AMERICAN > 60; GFR NON-AFRICAN AMERICAN 55
[2016-10-05] MEDS ORDERED: Sodium Chloride 0.9% 1,000 ML IV SCH (12:00)
[2016-10-05 14:51] LABS: ALB/GLOB RATIO 1.7 (1.0-2.1); ALBUMIN 4.2 g/dL (3.5-5.0); ALT/SGPT 42 U/L (9-52); AST/SGOT 27 U/L (14-36); BLOOD UREA NITROGEN 23 mg/dl (7-17); CALCIUM 8.7 mg/dL (8.4-10.2); GFR AFRICAN-AMERICAN > 60; GFR NON-AFRICAN AMERICAN 55
[2016-10-05 15:00] LABS: MAGNESIUM 0.9 MG/DL (1.6-2.3)
[2016-10-05] MEDS ORDERED: Magnesium Sulfate 2 GM in Sodium Chloride 0.9% 100 ML IVPB ONE (17:42)
[2016-10-05] MEDS ORDERED: Magnesium Sulfate 2 gm/50 ml 2 GM/50 ML BAG IVPB ONE (18:00)
[2016-10-05] MEDS ORDERED: Magnesium Sulfate 4 gm/100 ml 4 GM/100 ML BAG IVPB ONE (18:59)
[2016-10-05 19:42] LABS: ALBUMIN (PEP) 3.4 g/dL (3.8-4.8); ALPHA-1-GLOBULIN (PEP) 0.3 g/dL (0.2-0.3)
--- NOTE | 2016-10-05 20:02 | CP.PCM.CON ---
History of Present Illness - History of Present Illness History of Present Illness: pt seen and examined, full consult is dictated # 1. hyponatremia, r/o SIADH sec to drugs, lexapro check urine, lytes, osm, serum osm, uric acid, tsh, cortisol consider to d/c fluids, restrict fluids to 800 ml/day bmp q 12 hrsconsider to d/c lexapro Past Patient History - Infectious Disease Hx of Infectious Diseases: None - Tetanus Immunizations Tetanus Immunization: Unknown - Past Medical History & Family History Past Medical History?: Yes - Past Social History Smoking Status: Never Smoked - CARDIAC Hx Congestive Heart Failure: Yes Hx Hypercholesterolemia: Yes Hx Hypertension: Yes - PULMONARY Hx Asthma: Yes Hx Chronic Obstructive Pulmonary Disease (COPD): Yes Hx Emphysema: Yes Hx Pneumonia: Yes Hx Pulmonary Embolism: Yes Hx Sleep Apnea: Yes - NEUROLOGICAL Hx Migraine: Yes - HEENT Hx HEENT Problems: Yes Other/Comment: Uses Glasses - RENAL Hx Chronic Kidney Disease: No - ENDOCRINE/METABOLIC Hx Hypothyroidism: Yes - HEMATOLOGICAL/ONCOLOGICAL Hx Anemia: Yes Hx Human Immunodeficiency Virus (HIV): No - INTEGUMENTARY Hx Dermatological Problems: No - MUSCULOSKELETAL/RHEUMATOLOGICAL Hx Arthritis: Yes Hx Fractures: Yes Hx Rheumatoid Arthritis: Yes - GASTROINTESTINAL Hx Gastrointestinal Disorders: No - GENITOURINARY/GYNECOLOGICAL Hx Genitourinary Disorders: Yes Hx Incontinence: Yes Other/Comment: Urinary frequency - PSYCHIATRIC Hx Anxiety: Yes Hx Depression: Yes - SURGICAL HISTORY Hx Cholecystectomy: Yes Hx Tonsillectomy: Yes - ANESTHESIA Hx Anesthesia: Yes Hx Anesthesia Reactions: Yes (Resp. Distress) Meds Allergies/Adverse Reactions: Allergies Allergy/AdvReac Type Severity Reaction Status Date / Time codeine AdvReac syncope, Verified 12/02/15 10:13 diaphoresis - Medications Medications: Current Medications Acetaminophen (Tylenol 325mg Tab) 325 mg PO Q6 PRN PRN Reason: Pain, Mild (1-3) Albuterol/Ipratropium (Duoneb 3 Mg/0.5 Mg (3 Ml) Ud) 3 ml INH RQ4 PRN PRN Reason: Shortness of Breath Last Admin: 10/04/16 22:40 Dose: 3 ml Aspirin (Ecotrin) 81 mg PO DAILY [facility] Last Admin: 10/05/16 09:24 Dose: 81 mg Atorvastatin Calcium (Lipitor) 20 mg PO QPM [facility] Last Admin: 10/05/16 18:19 Dose: 20 mg Benztropine Mesylate (Cogentin) 1 mg PO Q8@0000,0800,1600 [facility] Last Admin: 10/05/16 17:28 Dose: 1 mg Buspirone HCl (Buspar) 10 mg PO BID [facility] Last Admin: 10/05/16 17:27 Dose: 10 mg Clonazepam (Klonopin) 0.5 mg PO HS [facility] Last Admin: 10/04/16 21:24 Dose: 0.5 mg Cyanocobalamin (Vitamin B12 1000 Mcg/Ml Inj) 1,000 mcg IM DAILY [facility] Last Admin: 10/05/16 09:26 Dose: 1,000 mcg Dexamethasone (Decadron) 20 mg PO Mo@0900 [facility] Last Admin: 10/05/16 09:23 Dose: 20 mg Enalapril Maleate (Vasotec) 2.5 mg PO DAILY@0900 [facility] Last Admin: 10/05/16 09:26 Dose: 2.5 mg Enoxaparin Sodium (Lovenox) 40 mg SC DAILY [facility] PRN Reason: Protocol Last Admin: 10/05/16 09:27 Dose: 40 mg Ergocalciferol (Drisdol 50,000 Intl Units Cap) 1 cap PO FR [facility] Last Admin: 10/02/16 18:27 Dose: 1 cap Escitalopram Oxalate (Lexapro) 20 mg PO DAILY [facility] Last Admin: 10/05/16 09:27 Dose: 20 mg Famotidine (Pepcid) 20 mg PO BID [facility] Last Admin: 10/05/16 17:26 Dose: 20 mg Furosemide (Lasix) 40 mg IVP DAILY [facility] Last Admin: 10/05/16 09:27 Dose: 40 mg Guaifenesin (Robitussin) 200 mg PO Q6 PRN PRN Reason: Cough Last Admin: 10/05/16 09:48 Dose: 200 mg Home Med (Riociguat [Adempas]) 1 mg PO TID@0900,1300,1700 [facility] Last Admin: 10/05/16 17:27 Dose: 1 mg Sodium Chloride (Sodium Chloride 0.9%) 1,000 mls @ 80 mls/hr IV .[id number] [facility] Stop: 10/06/16 11:59 Last Admin: 10/05/16 12:30 Dose: 80 mls/hr Magnesium Sulfate (Magnesium Sulfate 4 Gm/100 Ml H2o) 4 gm in 100 mls @ 50 mls/ hr IVPB ONCE ONE PRN Reason: 2 GM/HR Stop: 10/05/16 20:58 Last Admin: 10/05/16 19:21 Dose: 50 mls/hr Insulin Detemir (Levemir) 12 units SC HS [facility] Insulin Human Lispro (Humalog) 8 units SC ACTID [facility] Last Admin: 10/05/16 17:28 Dose: 8 units Levothyroxine Sodium (Synthroid) 125 mcg PO DAILY@0630 [facility] Last Admin: 10/05/16 05:35 Dose: 125 mcg Lidocaine (Lidoderm) 1 ea TD DAILY PRN PRN Reason: Pain, moderate (4-7) Last Admin: 10/05/16 09:42 Dose: 1 ea Metformin HCl (Glucophage) 500 mg PO BIDWM [facility] Last Admin: 10/05/16 17:27 Dose: 500 mg Pantoprazole Sodium (Protonix Ec Tab) 20 mg PO DAILY [facility] Last Admin: 10/05/16 09:25 Dose: 20 mg Results - Vital Signs Recent Vital Signs: Last Vital Signs Temp 98.4 F 10/05/16 15:42 Pulse 96 H 10/05/16 15:42 Resp 20 10/05/16 15:42 BP 103/52 L 10/05/16 15:42 Pulse Ox 99 10/05/16 15:42 - Labs Result Diagrams: 10/01/16 06:00 10/05/16 14:27 Labs: Laboratory Results - last 24 hr 10/02/16 10/02/16 10/04/16 05:25 05:25 21:08 Sodium Potassium Chloride Carbon Dioxide Anion Gap BUN Creatinine Est GFR ( Amer) Est GFR (Non-Af Amer) POC Glucose (mg/dL) 58 L Random Glucose Serum Osmolality Uric Acid Calcium Phosphorus Magnesium Total Bilirubin AST ALT Alkaline Phosphatase Troponin I Total Protein Albumin Albumin (PEP) 3.4 L Globulin Albumin/Globulin Ratio Oduax-8-Sxvobszhw 0.3 Whdnm-7-Xuzmgfovp 0.7 Rlrs-6-Vvfjonfv 0.4 Lmjs-9-Phpcjbjt 0.3 Gamma Globulins 0.6 L Abnorm Protein Band 1 0.14 H Abnorm Protein Band 2 TEST NOT PERFORMED Abnorm Protein Band 3 TEST NOT PERFORMED Methylmalonic Acid 407 H ANDRÉS & SPEP Interp See note [place]/Lambda Light Chain Free [place] Light Chains 20.7 H Free Lambda Light Chain 16.6 Free [place]/Lambda Ratio 1.25 10/04/16 10/05/16 10/05/16 22:29 05:34 09:31 Sodium Potassium Chloride Carbon Dioxide Anion Gap BUN Creatinine Est GFR ( Amer) Est GFR (Non-Af Amer) POC Glucose (mg/dL) 84 91 128 H Random Glucose Serum Osmolality Uric Acid Calcium Phosphorus Magnesium Total Bilirubin AST ALT Alkaline Phosphatase Troponin I Total Protein Albumin Albumin (PEP) Globulin Albumin/Globulin Ratio Zlrln-0-Eoqxjgpti Uxsge-5-Cdzhvqbau Sefm-8-Vwemzfzv Sbvo-2-Rruxbatp Gamma Globulins Abnorm Protein Band 1 Abnorm Protein Band 2 Abnorm Protein Band 3 Methylmalonic Acid ANDRÉS & SPEP Interp [place]/Lambda Light Chain Free [place] Light Chains Free Lambda Light Chain Free [place]/Lambda Ratio 10/05/16 10/05/16 10/05/16 11:03 11:20 12:00 Sodium 120 L* Potassium 4.2 Chloride 86 L D Carbon Dioxide 23 Anion Gap 15 BUN 22 H Creatinine 1.0 Est GFR ( Amer) > 60 Est GFR (Non-Af Amer) 55 POC Glucose (mg/dL) 54 L 74 Random Glucose 66 Serum Osmolality Uric Acid Calcium 8.9 Phosphorus Magnesium Total Bilirubin 1.0 AST 27 ALT 39 Alkaline Phosphatase 86 Troponin I 0.0530 Total Protein 6.7 Albumin 4.1 Albumin (PEP) Globulin 2.6 Albumin/Globulin Ratio 1.6 Kbloh-1-Cagnvqpea Czkfc-6-Lnjjkrswc Nyog-7-Fcmqpfkp Oszt-0-Eykxjosl Gamma Globulins Abnorm Protein Band 1 Abnorm Protein Band 2 Abnorm Protein Band 3 Methylmalonic Acid ANDRÉS & SPEP Interp [place]/Lambda Light Chain Free [place] Light Chains Free Lambda Light Chain Free [place]/Lambda Ratio 10/05/16 10/05/16 10/05/16 14:27 16:08 18:23 Sodium 120 L* Potassium 4.8 Chloride 85 L Carbon Dioxide 21 L Anion Gap 19 BUN 23 H Creatinine 1.0 Est GFR ( Amer) > 60 Est GFR (Non-Af Amer) 55 POC Glucose (mg/dL) 239 H Random Glucose 163 H Serum Osmolality 262 L Uric Acid Calcium 8.7 Phosphorus 3.9 Magnesium 0.9 L* D Total Bilirubin 0.7 AST 27 ALT 42 Alkaline Phosphatase 88 Troponin I Total Protein 6.7 Albumin 4.2 Albumin (PEP) Globulin 2.5 Albumin/Globulin Ratio 1.7 Bpipe-6-Xmqelnwns Mpcrk-6-Tgmbvivgl Khhg-0-Oqrudmeg Czcj-3-Jkedoifi Gamma Globulins Abnorm Protein Band 1 Abnorm Protein Band 2 Abnorm Protein Band 3 Methylmalonic Acid ANDRÉS & SPEP Interp [place]/Lambda Light Chain Free [place] Light Chains Free Lambda Light Chain Free [place]/Lambda Ratio 10/05/16 18:23 Sodium Potassium Chloride Carbon Dioxide Anion Gap BUN Creatinine Est GFR ( Amer) Est GFR (Non-Af Amer) POC Glucose (mg/dL) Random Glucose Serum Osmolality Uric Acid 7.4 Calcium Phosphorus Magnesium Total Bilirubin AST ALT Alkaline Phosphatase Troponin I Total Protein Albumin Albumin (PEP) Globulin Albumin/Globulin Ratio Uyxps-5-Gwgglwfpk Jdbxy-5-Hhtzxbtpf Zero-9-Qzstdtwc Coxf-2-Xhbngpnl Gamma Globulins Abnorm Protein Band 1 Abnorm Protein Band 2 Abnorm Protein Band 3 Methylmalonic Acid ANDRÉS & SPEP Interp [place]/Lambda Light Chain Free [place] Light Chains Free Lambda Light Chain Free [place]/Lambda Ratio
[2016-10-05 21:18] LABS: CALCIUM 8.5 mg/dL (8.4-10.2)
[2016-10-05] MEDS ORDERED: Sod Polystyrene Sulf 15 gm/60 ml Oral Susp PO ONE (22:21)
[2016-10-05] MEDS: Insulin Detemir 100 Units/ml Inj SC SCH (23:08)
--- NOTE | 2016-10-06 00:30 | CP.PCM.CON ---
History of Present Illness - History of Present Illness History of Present Illness: PT SEEN AND EXAMINED EARLIER 10-05-16 AT 730PM. PT ADMITTED FOR SOB AND HAS A HX OF PHTN. WHILE ON TELE PT WAS NOTED TO DEVELOP A NONSUSTAINED VT WITHOUT SX' S. PT DENIES CP, PALP, LH, DIZZINESS. PT WAS SITTING AND EATING AT THE TIME. EKG REVEALS SR, LAD, AND T WAVE INVERSIONS IN PRECORDIAL LEADS. LABS REVEAL NA OF 120 AND MAG OF 0.9. Review of Systems - Constitutional Constitutional: absent: As Per HPI, Anorexia, Chills, Daytime Sleepiness, Excessive Sweating, Fatigue, Fever, Frequent Falls, Headache, Increased Appetite , Lethargy, Malaise, Night Sweats, Snoring, Sleep Apnea, Weight Gain, Weight Loss, Weakness, Other - EENT Eyes: absent: As Per HPI, Blind Spots, Blurred Vision, Change in Vision, Decreased Night Vision, Diplopia, Discharge, Dry Eye, Exophthalmos, Floaters, Irritation, Itchy Eyes, Loss of Peripheral Vision, Pain, Photophobia, Requires Corrective Lenses, Sees Flashes, Spots in Vision, Tunnel Vision, Other Visual Disturbances, Loss of Vision, Other Ears: absent: As Per HPI, Decreased Hearing, Ear Discharge, Ear Pain, Tinnitus, Abnormal Hearing, Disequilibrium, Dizziness, Other Nose/Mouth/Throat: absent: As Per HPI, Epistaxis, Nasal Congestion, Nasal Discharge, Nasal Obstruction, Nasal Trauma, Nose Pain, Post Nasal Drip, Sinus Pain, Sinus Pressure, Bleeding Gums, Change in Voice, Dental Pain, Dry Mouth, Dysphagia, Halitosis, Hoarsness, Lip Swelling, Mouth Lesions, Mouth Pain, Odynophagia, Sore Throat, Throat Swelling, Tongue Swelling, Facial Pain, Neck Pain, Neck Mass, Other - Cardiovascular Cardiovascular: Dyspnea, Dyspnea on Exertion. absent: As Per HPI, Acrocyanosis , Chest Pain, Chest Pain at Rest, Chest Pain with Activity, Claudication, Diaphoresis, Edema, Irregular Heart Rhythm, Pain Radiating to Arm/Neck/Jaw, Leg Edema, Leg Ulcers, Lightheadedness, Orthopnea, Palpitations, Paroxysmal Nocturnal Dyspnea, Pedal Edema, Radiating Pain, Rapid Heart Rate, Slow Heart Rate, Syncope, Other - Respiratory Respiratory: Dyspnea. absent: As Per HPI, Cough, Hemoptysis, Dyspnea on Exertion, Wheezing, Snoring, Stridor, Pain on Inspiration, Chest Congestion, Excessive Mucous Production, Change in Mucous Color, Pain with Coughing, Other - Gastrointestinal Gastrointestinal: absent: As Per HPI, Abdominal Pain, Belching, Bloating, Change in Bowel Habits, Change in Stool Character, Coffee Ground Emesis, Constipation, Cramping, Diarrhea, Dyspepsia, Dysphagia, Early Satiety, Excessive Flatus, Fecal Incontinence, Heartburn, Hematemesis, Hematochezia, Loose Stools, Melena, Nausea, Odynophagia, Temesmus, Vomiting, Other - Genitourinary Genitourinary: absent: As Per HPI, Change in Urinary Stream, Difficulty Urinating, Dysuria, Flank Pain, Hematuria, Pyuria, Nocturia, Urinary Incontinence, Urinary Frequency, Urinary Hesitance, Urinary Urgency, Voiding Freq/Small Amts, Freq UTI, Hx Renal/Bladder Calculi, Hx /Renal Surgery, Bladder Distension, Other - Reproductive: Female Reproductive:Female: absent: As Per HPI, Amenorrhea, Amenorrhea/ Control, Currently Menstual, Cycle <21 Days, Cycle >35 Days, Cycle Variable, Menses 1-7 Days, Menses >/= 8 Days, Menses Variable, Cycle > 4 Weeks Between, No Menses for 6 Months, Heavy Menses, Light Menses, Normal Menses, Spotting Between Cycles , S/P Hysterectomy, Menopausal, Post Menopausal, Premenarche, Abnormal Vaginal Bleeding, Dysmenorrhea, Dyspareunia, Genital Lesions, Genital Pruritis, Pelvic Pain, Prolapse Symptoms, Sexual Dysfunction, Vaginal Discharge, Vaginal Dryness , Vaginal Odor, Vaginal Pruritis, Other - Menstruation Menstruation: absent: As Per HPI, Amenorrhea, Amenorrhea/ Control, Currently Menstual, Cycle <21 Days, Cycle >35 Days, Cycle Variable, Menses 1-7 Days, Menses >/= 8 Days, Menses Variable, Cycle > 4 Weeks Between, No Menses for 6 Months, Heavy Menses, Light Menses, Normal Menses, Spotting Between Cycles , S/P Hysterectomy, Menopausal, Post Menopausal, Premenarche, Abnormal Vaginal Bleeding, Dysmenorrhea, Other - Musculoskeletal Musculoskeletal: absent: As Per HPI, Abnormal Gait, Arthralgias, Atrophy, Back Pain, Deformity, Joint Swelling, Limited Range of Motion, Loss of Height, Muscle Cramps, Muscle Weakness, Myalgias, Neck Pain, Numbness, Radiating Pain into Limb, Stiffness, Tingling, Other - Integumentary Integumentary: absent: As Per HPI, Acne, Alopecia, Bleeding Lesions, Change in Hair, Change in Nails, Change in Pigmentation, Changing Lesions, Dry Skin, Erythema, Furuncle, Hirsutism, Lesions, New Lesions, Non-Healing Lesions, Photosensitivity, Pruritus, Rash, Skin Pain, Skin Ulcer, Sores, Striae, Swelling , Unusual Bruising, Wounds, Jaundice, Other - Neurological Neurological: Tremor. absent: As Per HPI, Abnormal Gait, Abnormal Hearing, Abnormal Movements, Abnormal Speech, Behavioral Changes, Burning Sensations, Confusion, Convulsions, Disequilibrium, Dizziness, Numbness, Focal Weakness, Frequent Falls, Headaches, Lack of Coordination, Loss of Vision, Memory Loss, Paresthesias, Radicular Pain, Restless Legs, Sensory Deficit, Syncope, Tingling , Vertigo, Weakness, Other Visual Disturbances, Other - Psychiatric Psychiatric: absent: As Per HPI, Abnormal Sleep Pattern, Anhedonia, Anxiety, Auditory Hallucinations, Behavioral Changes, Change in Appetite, Change in Libido, Confusion, Depression, Difficulty Concentrating, Hallucinations, Homicidal Ideation, Hopelessness, Irritability, Memory Loss, Mood Swings, Panic Attacks, Paranoia, Suicidal Ideation, Visual Hallucinations, Tactile Hallucinations, Other - Endocrine Endocrine: absent: As Per HPI, Change in Body Appearance, Change in Libido, Cold Intolorance, Deepening of Voice, Excessive Sweating, Fatigue, Flushing, Heat Intolorance, Increase in Ring/Shoe/Hat Size, Palpitations, Polydipsia, Polyphagia, Polyuria, Other - Hematologic/Lymphatic Hematologic: absent: As Per HPI, Easy Bleeding, Easy Bruising, Lymphadenopathy, Other Past Patient History - Infectious Disease Hx of Infectious Diseases: None - Tetanus Immunizations Tetanus Immunization: Unknown - Past Medical History & Family History Past Medical History?: Yes - Past Social History Smoking Status: Never Smoked Chewing Tobacco Use: No Cigar Use: No Alcohol: None Drugs: Denies - CARDIAC Hx Cardiac Disorders: Yes Hx Congestive Heart Failure: Yes Hx Hypercholesterolemia: Yes Hx Hypertension: Yes - PULMONARY Hx Asthma: Yes Hx Chronic Obstructive Pulmonary Disease (COPD): Yes Hx Emphysema: Yes Hx Pneumonia: Yes Hx Pulmonary Embolism: Yes Hx Sleep Apnea: Yes - NEUROLOGICAL Hx Migraine: Yes - HEENT Hx HEENT Problems: Yes Other/Comment: Uses Glasses - RENAL Hx Chronic Kidney Disease: No - ENDOCRINE/METABOLIC Hx Hypothyroidism: Yes - HEMATOLOGICAL/ONCOLOGICAL Hx Anemia: Yes Hx Human Immunodeficiency Virus (HIV): No - INTEGUMENTARY Hx Dermatological Problems: No - MUSCULOSKELETAL/RHEUMATOLOGICAL Hx Arthritis: Yes Hx Fractures: Yes Hx Rheumatoid Arthritis: Yes - GASTROINTESTINAL Hx Gastrointestinal Disorders: No - GENITOURINARY/GYNECOLOGICAL Hx Genitourinary Disorders: Yes Hx Incontinence: Yes Other/Comment: Urinary frequency - PSYCHIATRIC Hx Anxiety: Yes Hx Depression: Yes - SURGICAL HISTORY Hx Cholecystectomy: Yes Hx Tonsillectomy: Yes - ANESTHESIA Hx Anesthesia: Yes Hx Anesthesia Reactions: Yes (Resp. Distress) Meds Allergies/Adverse Reactions: Allergies Allergy/AdvReac Type Severity Reaction Status Date / Time codeine AdvReac syncope, Verified 12/02/15 10:13 diaphoresis - Medications Medications: Current Medications Acetaminophen (Tylenol 325mg Tab) 325 mg PO Q6 PRN PRN Reason: Pain, Mild (1-3) Albuterol/Ipratropium (Duoneb 3 Mg/0.5 Mg (3 Ml) Ud) 3 ml INH RQ4 PRN PRN Reason: Shortness of Breath Last Admin: 10/04/16 22:40 Dose: 3 ml Aspirin (Ecotrin) 81 mg PO DAILY [facility] Last Admin: 10/05/16 09:24 Dose: 81 mg Atorvastatin Calcium (Lipitor) 20 mg PO QPM [facility] Last Admin: 10/05/16 18:19 Dose: 20 mg Benztropine Mesylate (Cogentin) 1 mg PO Q8@0000,0800,1600 [facility] Last Admin: 10/05/16 17:28 Dose: 1 mg Buspirone HCl (Buspar) 10 mg PO BID [facility] Last Admin: 10/05/16 17:27 Dose: 10 mg Clonazepam (Klonopin) 0.5 mg PO HS [facility] Last Admin: 10/05/16 22:00 Dose: 0.5 mg Cyanocobalamin (Vitamin B12 1000 Mcg/Ml Inj) 1,000 mcg IM DAILY [facility] Last Admin: 10/05/16 09:26 Dose: 1,000 mcg Dexamethasone (Decadron) 20 mg PO Mo@0900 [facility] Last Admin: 10/05/16 09:23 Dose: 20 mg Enalapril Maleate (Vasotec) 2.5 mg PO DAILY@0900 [facility] Last Admin: 10/05/16 09:26 Dose: 2.5 mg Enoxaparin Sodium (Lovenox) 40 mg SC DAILY [facility] PRN Reason: Protocol Last Admin: 10/05/16 09:27 Dose: 40 mg Ergocalciferol (Drisdol 50,000 Intl Units Cap) 1 cap PO FR [facility] Last Admin: 10/02/16 18:27 Dose: 1 cap Famotidine (Pepcid) 20 mg PO BID [facility] Last Admin: 10/05/16 17:26 Dose: 20 mg Furosemide (Lasix) 40 mg IVP DAILY [facility] Last Admin: 10/05/16 09:27 Dose: 40 mg Guaifenesin (Robitussin) 200 mg PO Q6 PRN PRN Reason: Cough Last Admin: 10/05/16 09:48 Dose: 200 mg Home Med (Riociguat [Adempas]) 1 mg PO TID@0900,1300,1700 [facility] Last Admin: 10/05/16 17:27 Dose: 1 mg Insulin Detemir (Levemir) 12 units SC HS [facility] Last Admin: 10/05/16 23:08 Dose: 12 u Insulin Human Lispro (Humalog) 8 units SC ACTID [facility] Last Admin: 10/05/16 17:28 Dose: 8 units Levothyroxine Sodium (Synthroid) 125 mcg PO DAILY@0630 [facility] Last Admin: 10/05/16 05:35 Dose: 125 mcg Lidocaine (Lidoderm) 1 ea TD DAILY PRN PRN Reason: Pain, moderate (4-7) Last Admin: 10/05/16 09:42 Dose: 1 ea Metformin HCl (Glucophage) 500 mg PO BIDWM [facility] Last Admin: 10/05/16 17:27 Dose: 500 mg Pantoprazole Sodium (Protonix Ec Tab) 20 mg PO DAILY [facility] Last Admin: 10/05/16 09:25 Dose: 20 mg Physical Exam - Constitutional Appears: Non-toxic - Head Exam Head Exam: ATRAUMATIC, NORMAL INSPECTION, NORMOCEPHALIC - Eye Exam Eye Exam: Conjunctival injection. absent: EOMI, Normal appearance, Nystagmus, Periorbital swelling, Periorbital tenderness, PERRL, Scleral icterus Pupil Exam: NORMAL ACCOMODATION, PERRL. absent: Fixed, Irregular, Miosis, Mydriatic, Unequal - ENT Exam ENT Exam: Mucous Membranes Moist, Normal Exam. absent: Mucous Membranes Dry, Normal External Ear Exam, Normal Oropharynx, TM's Normal Bilaterally - Neck Exam Neck exam: Positive for: Normal Inspection. Negative for: Full Rom, Lymphadenopathy, Meningismus, Tenderness, Thyromegaly - Respiratory Exam Respiratory Exam: Clear to Auscultation Bilateral, NORMAL BREATHING PATTERN. absent: Accessory Muscle Use, Chest Wall Tenderness, Decreased Breath Sounds, Prolonged Expiratory Phase, Rales, Rhonchi, Wheezes, Respiratory Distress, Stridor - Cardiovascular Exam Cardiovascular Exam: REGULAR RHYTHM, +S1, +S2, Systolic Murmur. absent: Bradycardia, Tachycardia, Clicks, Diastolic murmur, Gallop, Irregular Rhythm, JVD, RRR, Rubs, +S4 - GI/Abdominal Exam GI & Abdominal Exam: absent: Bruit, Diminished Bowel Sounds, Distended, Firm, Guarding, Hernia, Hyperactive Bowel Sounds, Hypoactive Bowel Sounds, Mass, Normal Bowel Sounds, Organomegaly, Pulsatile Mass, Rebound, Rigid, Soft, Tenderness - Rectal Exam Rectal Exam: Deferred - Extremities Exam Extremities exam: Negative for: calf tenderness, full ROM, joint swelling, normal capillary refill, normal inspection, pedal edema, tenderness, pedal pulses present Additional comments: B/L UE TREMORS - Back Exam Back exam: NORMAL INSPECTION. absent: CVA tenderness (L), CVA tenderness (R), FULL ROM, muscle spasm, paraspinal tenderness, rash noted, tenderness, vertebral tenderness - Neurological Exam Neurological exam: Alert, CN II-XII Intact, Oriented x3 - Psychiatric Exam Psychiatric exam: Flat Affect - Skin Skin Exam: Intact, Normal Color, Warm Results - Vital Signs Recent Vital Signs: Last Vital Signs Temp 97.4 F L 10/05/16 20:03 Pulse 80 10/06/16 00:25 Resp 20 10/05/16 20:03 BP 143/82 10/05/16 20:03 Pulse Ox 100 10/05/16 20:03 - Labs Result Diagrams: 10/01/16 06:00 10/05/16 20:45 Labs: Laboratory Results - last 24 hr 10/02/16 10/02/16 10/04/16 05:25 05:25 22:29 Sodium Potassium Chloride Carbon Dioxide Anion Gap BUN Creatinine Est GFR ( Amer) Est GFR (Non-Af Amer) POC Glucose (mg/dL) 84 Random Glucose Serum Osmolality Uric Acid Calcium Phosphorus Magnesium Total Bilirubin AST ALT Alkaline Phosphatase Troponin I Total Protein Albumin Albumin (PEP) 3.4 L Globulin Albumin/Globulin Ratio Dmpxt-3-Zpvqiqqwg 0.3 Vdkiv-3-Cecntuygv 0.7 Dzeq-3-Dxbvympk 0.4 Vacl-8-Laewnebt 0.3 Gamma Globulins 0.6 L Abnorm Protein Band 1 0.14 H Abnorm Protein Band 2 TEST NOT PERFORMED Abnorm Protein Band 3 TEST NOT PERFORMED Methylmalonic Acid 407 H Urine Osmolality Ur Random Sodium Ur Random Potassium ANDRÉS & SPEP Interp See note [place]/Lambda Light Chain Free [place] Light Chains 20.7 H Free Lambda Light Chain 16.6 Free [place]/Lambda Ratio 1.25 10/05/16 10/05/16 10/05/16 05:34 09:31 11:03 Sodium Potassium Chloride Carbon Dioxide Anion Gap BUN Creatinine Est GFR ( Amer) Est GFR (Non-Af Amer) POC Glucose (mg/dL) 91 128 H 54 L Random Glucose Serum Osmolality Uric Acid Calcium Phosphorus Magnesium Total Bilirubin AST ALT Alkaline Phosphatase Troponin I Total Protein Albumin Albumin (PEP) Globulin Albumin/Globulin Ratio Iqhop-5-Dyrawrsut Vmauw-1-Tmlmzbmzj Xaju-0-Qqwdrber Ssif-0-Hzjuhuqh Gamma Globulins Abnorm Protein Band 1 Abnorm Protein Band 2 Abnorm Protein Band 3 Methylmalonic Acid Urine Osmolality Ur Random Sodium Ur Random Potassium ANDRÉS & SPEP Interp [place]/Lambda Light Chain Free [place] Light Chains Free Lambda Light Chain Free [place]/Lambda Ratio 10/05/16 10/05/16 10/05/16 11:20 12:00 14:27 Sodium 120 L* 120 L* Potassium 4.2 4.8 Chloride 86 L D 85 L Carbon Dioxide 23 21 L Anion Gap 15 19 BUN 22 H 23 H Creatinine 1.0 1.0 Est GFR ( Amer) > 60 > 60 Est GFR (Non-Af Amer) 55 55 POC Glucose (mg/dL) 74 Random Glucose 66 163 H Serum Osmolality Uric Acid Calcium 8.9 8.7 Phosphorus 3.9 Magnesium 0.9 L* D Total Bilirubin 1.0 0.7 AST 27 27 ALT 39 42 Alkaline Phosphatase 86 88 Troponin I 0.0530 Total Protein 6.7 6.7 Albumin 4.1 4.2 Albumin (PEP) Globulin 2.6 2.5 Albumin/Globulin Ratio 1.6 1.7 Zornb-8-Mmtbrmxws Rremk-5-Qnfvkjgyp Lkbm-2-Tohwvnru Qzcu-3-Odvcmfpt Gamma Globulins Abnorm Protein Band 1 Abnorm Protein Band 2 Abnorm Protein Band 3 Methylmalonic Acid Urine Osmolality Ur Random Sodium Ur Random Potassium ANDRÉS & SPEP Interp [place]/Lambda Light Chain Free [place] Light Chains Free Lambda Light Chain Free [place]/Lambda Ratio 10/05/16 10/05/16 10/05/16 16:08 18:23 18:23 Sodium Potassium Chloride Carbon Dioxide Anion Gap BUN Creatinine Est GFR ( Amer) Est GFR (Non-Af Amer) POC Glucose (mg/dL) 239 H Random Glucose Serum Osmolality 262 L Uric Acid 7.4 Calcium Phosphorus Magnesium Total Bilirubin AST ALT Alkaline Phosphatase Troponin I Total Protein Albumin Albumin (PEP) Globulin Albumin/Globulin Ratio Wjjok-9-Jejdhpzns Ecvne-3-Couvzwfdn Rmix-9-Mdhzvxdj Evls-2-Psfagtkz Gamma Globulins Abnorm Protein Band 1 Abnorm Protein Band 2 Abnorm Protein Band 3 Methylmalonic Acid Urine Osmolality Ur Random Sodium Ur Random Potassium ANDRÉS & SPEP Interp [place]/Lambda Light Chain Free [place] Light Chains Free Lambda Light Chain Free [place]/Lambda Ratio 10/05/16 10/05/16 10/05/16 20:33 20:33 20:45 Sodium 118 L* Potassium 5.4 H Chloride 85 L Carbon Dioxide 19 L Anion Gap 19 BUN 24 H Creatinine 1.3 H Est GFR ( Amer) 49 Est GFR (Non-Af Amer) 41 POC Glucose (mg/dL) Random Glucose 205 H Serum Osmolality Uric Acid Calcium 8.5 Phosphorus Magnesium Total Bilirubin AST ALT Alkaline Phosphatase Troponin I Total Protein Albumin Albumin (PEP) Globulin Albumin/Globulin Ratio Cppzl-0-Jwmlbxkfy Cxmbb-6-Durkgureu Edmg-7-Qqlrwkmh Cydu-5-Pslggxox Gamma Globulins Abnorm Protein Band 1 Abnorm Protein Band 2 Abnorm Protein Band 3 Methylmalonic Acid Urine Osmolality 182 L Ur Random Sodium 33 Ur Random Potassium 23.8 ANDRÉS & SPEP Interp [place]/Lambda Light Chain Free [place] Light Chains Free Lambda Light Chain Free [place]/Lambda Ratio 10/05/16 10/05/16 21:19 22:00 Sodium Potassium Chloride Carbon Dioxide Anion Gap BUN Creatinine Est GFR ( Amer) Est GFR (Non-Af Amer) POC Glucose (mg/dL) 198 H Random Glucose Serum Osmolality Uric Acid Calcium Phosphorus Magnesium 2.0 Total Bilirubin AST ALT Alkaline Phosphatase Troponin I Total Protein Albumin Albumin (PEP) Globulin Albumin/Globulin Ratio Pkvyo-7-Zzroiubcs Vzrzn-6-Nnhgaprwr Feph-4-Uqhryoki Slko-6-Ooyjcfix Gamma Globulins Abnorm Protein Band 1 Abnorm Protein Band 2 Abnorm Protein Band 3 Methylmalonic Acid Urine Osmolality Ur Random Sodium Ur Random Potassium ANDRÉS & SPEP Interp [place]/Lambda Light Chain Free [place] Light Chains Free Lambda Light Chain Free [place]/Lambda Ratio - EKG Data EKG Interpreted by: Myself EKG shows normal: Sinus rhythm, ST-T waves Rate: Normal Assessment & Plan (1) Torsades de pointes Status: Acute (2) Hypomagnesemia Status: Acute (3) Abnormal involuntary movements Status: Acute (4) Dyspnea Status: Acute (5) Depression Status: Chronic (6) Diabetes mellitus Status: Chronic (7) Dyslipidemia Status: Chronic (8) Hypothyroidism Status: Chronic (9) Pulmonary hypertension Status: Chronic (10) Hyponatremia Status: Acute - Assessment and Plan (Free Text) Plan: PT HAS HYPONATREMIA OF UNKNOWN ETIOLOGY WITH LOW URINE OSMOL HER RHYTHM STRIP REVEALS TORSADE LIKE ARRYTHMIA, GIVEN HER MAG LEVEL 4GM IV MAG ORDERED STAT. TROP ORDERED. 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 90 MIN TOTAL ACUTE CARE TIME.
[2016-10-06] MEDS: Levothyroxine 125 MCG TAB PO SCH (05:57)
[2016-10-06 06:35] LABS: ALB/GLOB RATIO 1.8 (1.0-2.1); ALBUMIN 4.2 g/dL (3.5-5.0); ALT/SGPT 37 U/L (9-52); AST/SGOT 23 U/L (14-36); BLOOD UREA NITROGEN 22 mg/dl (7-17); CALCIUM 8.6 mg/dL (8.4-10.2); GFR AFRICAN-AMERICAN > 60; GFR NON-AFRICAN AMERICAN 55
[2016-10-06] MEDS: Albuterol-Ipratrop 3 mg / 0.5 (3 ml) UD INH PRN ×2 (07:39→11:09)
--- NOTE | 2016-10-06 07:45 | CON ---
DATE: 10/05/2016 REQUESTED BY: Ciara Jane MD REASON FOR RENAL CONSULTATION: Hyponatremia for further evaluation. HISTORY OF PRESENT ILLNESS: Mrs. Perkins is about 70-year-old obese elderly female with a past medical history significant for hypertension, diabetes type 2, hypothyroidism, COPD, diastolic CHF, pulmonary, hypertension, sleep apnea, multiple myeloma, and PE, presented with one-week history of increased shortness of breath and restless movement. The patient states compliance with medications, only change in medication was increased to 1 mg. The patient denies any fever, chills. Denies abdominal pain. No change in vision, and no urinary or bowel habits. No dizziness, no chest pain, no headache, no cough, no diarrhea, no constipation. The patient was complaining of tremors for the last one week. The patient was on Abilify and discontinued in the hospital and started on Lexapro on 10/01/2016. Now renal consult requested for evaluation of hyponatremia. Prior to initiation of Lexapro, her serum sodium was within normal limits. The patient is also receiving IV fluids. The patient is not in acute distress. PAST MEDICAL HISTORY: Significant for hypertension, type 2 diabetes, hypothyroidism, COPD, CHF, pulmonary hypertension, sleep apnea, multiple myeloma, PE and new-onset tremors. PAST SURGICAL HISTORY: Significant for partial ovarian surgery and also left foot surgery for the fracture and cholecystectomy. ALLERGIES: ALLERGIC TO CODEINE. SOCIAL HISTORY: Denies any smoking, alcohol or drugs. PERSONAL HISTORY: She is and her . She has one girl. CURRENT MEDICATIONS: Include as follows: BuSpar 10 mg p.o. b.i.d., Cogentin q. 8 hours, Decadron 20 mg p.o., ergocalciferol 50,000 units one capsule q. weekly, Duoneb inhaler, Ecotrin, metformin, insulin, Klonopin, Lasix 40 mg IV daily, Levemir 12 units subq at bedtime, Lexapro 20 mg p.o. daily started on 10/01/2016, lidocaine patch, Lipitor, Lovenox, Pepcid 20 mg p.o. b.i.d., Protonix 20 mg daily, guanfacine, levothyroxine, Vasotec 2.5 mg p.o. daily, and B12 of 1000 mcg IM daily. REVIEW OF SYSTEMS: Significant for tremors, shortness of breath, and hyponatremia. All other review of systems are reviewed and are negative. PHYSICAL EXAMINATION: VITAL SIGNS: As follows: Blood pressure 143/82, pulse 95, respiration 20, temperature 97.4, saturation 98%, height 4 feet 10 inches and weight is 187 pounds. GENERAL: Mrs. Perkins is a 70 years old elderly female, well built, well nourished, not in distress. HEENT: Pupils are normal and reactive to light and accommodation. Conjunctivae pink. Sclerae anicteric. Tongue is moist. Trachea is midline. LUNGS: Symmetry on both sides, bilateral breath sounds present. Clear on auscultation. CARDIOVASCULAR: Panther at the fifth intercostal space, midclavicular line. S1 and S2 audible. No murmur, no gallop. ABDOMEN: Normal in appearance, soft and tympanitic. No guarding. No rigidity. No hepatosplenomegaly. 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 Sensory motor system is within normal limits. EXTREMITIES: No cyanosis. No clubbing. No edema. LABORATORY DATA: Includes as follows: Sodium is 118, potassium 5.4, chloride 85, CO2 of 19, BUN 24, creatinine 1.3, glucose 205, and calcium 8.5. Urine osmolality 182, urine sodium is 33, and urine potassium is 23.8. As of 10/05/2016, sodium was 120 and this morning sodium is 120. As of 10/01/2016, sodium 142; on 09/30/2016, sodium 138. ASSESSMENT: In summary, Mrs. Perkins is a 70-year-old elderly female with multiple medical problems of hypertension, diabetes, chronic obstructive pulmonary disease, congestive heart failure, sleep apnea, anxiety depression on Lexapro, started on 10/01/2016 with a sodium of 142, now sodium is 118. 1. Hyponatremia, most likely secondary to syndrome of inappropriate antidiuretic hormone secretion secondary to drug induced, like secondary to Lexapro. 2. Hypertension, blood pressure stable. 3. Anxiety versus depression. Consented to discontinue Lexapro, discontinue IV fluids, and add sodium chloride tablet one tablet p.o. t.i.d. We will follow with you. Thank you for allowing me to participate in your patient's care. Radha Gresham MD
--- NOTE | 2016-10-06 08:11 | CP.PCM.PN ---
Subjective - Date & Time of Evaluation Date of Evaluation: 10/06/16 Time of Evaluation: 08:00 - Subjective Subjective: Overnight events: Hyponatremia worsened with Na:118, patient was asymptomatic and placed on fluid restriction. Patient seen and examined bedside. SOB improving with O2 via NC at 2L. Has productive cough with green phlegm. Ambulating with assistance only. Continues to have dyskinesia. No other complaints at time of evaluation. Objective - Vital Signs/Intake and Output Vital Signs (last 24 hours): Temp Pulse Resp BP Pulse Ox 97.5 F L 90 20 119/63 98 10/06/16 05:00 10/06/16 05:00 10/06/16 05:00 10/06/16 05:00 10/06/16 05:00 - Medications Medications: Current Medications Acetaminophen (Tylenol 325mg Tab) 650 mg PO Q6 PRN PRN Reason: Pain, Mild (1-3) Albuterol/Ipratropium (Duoneb 3 Mg/0.5 Mg (3 Ml) Ud) 3 ml INH RQ4 PRN PRN Reason: Shortness of Breath Last Admin: 10/06/16 07:39 Dose: 3 ml Aspirin (Ecotrin) 81 mg PO DAILY [facility] Last Admin: 10/05/16 09:24 Dose: 81 mg Atorvastatin Calcium (Lipitor) 20 mg PO QPM [facility] Last Admin: 10/05/16 18:19 Dose: 20 mg Benztropine Mesylate (Cogentin) 1 mg PO Q8@0000,0800,1600 [facility] Last Admin: 10/06/16 01:51 Dose: 1 mg Buspirone HCl (Buspar) 10 mg PO BID [facility] Last Admin: 10/05/16 17:27 Dose: 10 mg Clonazepam (Klonopin) 0.5 mg PO HS [facility] Last Admin: 10/05/16 22:00 Dose: 0.5 mg Cyanocobalamin (Vitamin B12 1000 Mcg/Ml Inj) 1,000 mcg IM DAILY [facility] Last Admin: 10/05/16 09:26 Dose: 1,000 mcg Dexamethasone (Decadron) 20 mg PO Mo@0900 [facility] Last Admin: 10/05/16 09:23 Dose: 20 mg Enalapril Maleate (Vasotec) 2.5 mg PO DAILY@0900 [facility] Last Admin: 10/05/16 09:26 Dose: 2.5 mg Enoxaparin Sodium (Lovenox) 40 mg SC DAILY [facility] PRN Reason: Protocol Last Admin: 10/05/16 09:27 Dose: 40 mg Ergocalciferol (Drisdol 50,000 Intl Units Cap) 1 cap PO FR [facility] Last Admin: 10/02/16 18:27 Dose: 1 cap Famotidine (Pepcid) 20 mg PO BID [facility] Last Admin: 10/05/16 17:26 Dose: 20 mg Furosemide (Lasix) 40 mg IVP DAILY [facility] Last Admin: 10/05/16 09:27 Dose: 40 mg Guaifenesin (Robitussin) 200 mg PO Q6 PRN PRN Reason: Cough Last Admin: 10/05/16 09:48 Dose: 200 mg Home Med (Riociguat [Adempas]) 1 mg PO TID@0900,1300,1700 [facility] Last Admin: 10/05/16 17:27 Dose: 1 mg Insulin Detemir (Levemir) 12 units SC HS [facility] Last Admin: 10/05/16 23:08 Dose: 12 u Insulin Human Lispro (Humalog) 8 units SC ACTID [facility] Last Admin: 10/05/16 17:28 Dose: 8 units Levothyroxine Sodium (Synthroid) 125 mcg PO DAILY@0630 [facility] Last Admin: 10/06/16 05:57 Dose: 125 mcg Lidocaine (Lidoderm) 1 ea TD DAILY PRN PRN Reason: Pain, moderate (4-7) Last Admin: 10/05/16 09:42 Dose: 1 ea Metformin HCl (Glucophage) 500 mg PO BIDWM [facility] Last Admin: 10/05/16 17:27 Dose: 500 mg Pantoprazole Sodium (Protonix Ec Tab) 20 mg PO DAILY [facility] Last Admin: 10/05/16 09:25 Dose: 20 mg - Labs Labs: 10/01/16 06:00 10/06/16 05:50 PT 11.8 Seconds (9.8-13.1) 09/30/16 13:32 INR 1.0 (0.9-1.2) 09/30/16 13:32 - Constitutional Appears: Non-toxic - Eye Exam Eye Exam: EOMI - ENT Exam ENT Exam: Mucous Membranes Moist - Respiratory Exam Respiratory Exam: Decreased Breath Sounds, Rales (right lower lobe more than left lower lobe). absent: Wheezes, Respiratory Distress - Cardiovascular Exam Cardiovascular Exam: REGULAR RHYTHM, +S1, +S2 - GI/Abdominal Exam GI & Abdominal Exam: Soft. absent: Distended, Tenderness - Neurological Exam Neurological Exam: Alert, Awake, CN II-XII Intact, Motor Sensory Deficit ( tremors bilateral upper extremities) - Psychiatric Exam Psychiatric exam: Anxious - Skin Skin Exam: Dry, Intact, Pallor, Warm Assessment and Plan - Assessment and Plan (Free Text) Assessment: 70 yr old F admitted for worsening SOB and whole body/extremity tremors at rest thought to be possibly secondary to medication so abilify and lexapro were held. Found to have D-dimer elevated, subsequent CTA negative for PE and US negative for DVT. Patients SOB mildly improved on 2L supplemental O2 via nasal cannula. Neurology is on board for the tremors and was started on Cogentin. Nephrology recommended water restriction and started patient on Tolvaptan for hyponatremia on 10/06 that is now improving. Heme/Onc is following, started pt on B12. PT has recommended TCU. Patient had one episode of torasdes de pointes likely due to hypomagnesemia, now resolved, cardiology is following. Plan: Torsades de Pointes -resolved -likely secondary to hypomagnesemia -mag was replaced Hyponatremia -improving -water restriction, started on Tolvaptan as per Nephro recommendations. -monitor BMP Dyspnea -multifactorial, has COPD, severe pulmonary hypertension and CHF -improving Abnormal involuntary movements -full body dyskinesia without involvement of face -Possibly drug related, abilify held -Neurology consulted: Cogentin 1mg PO TID -MRI brain without contrast: no evidence of acute infarct, no intracranial mass or hemorrhage Severe Pulmonary Hypertension -chronic; right ventricular systolic pressure ~78mmHg -EKG with LA enlargement -s/p Right heart catheterization on 01/29/[address] Cady Angel -Pulmonary management previously as per Dr Cisneros -Tangela (Riociguat) 1mg PO TID Insulin dependent diabetes mellitus type 2 -Last HgbA1c: 8.7% on 07/02/16 -Continue home meds: Metformin 500mg PO BID, Adjusted 10/05: Levemir 12 units SC HS, Humalog 8 units SC ACTID -Accuchecks -Hypoglycemia protocol CHF diastolic with preserved EF -chronic -Echo: LVEF 65-70%, right ventricular systolic pressure ~78mmHg compatible with severe pulmonary HTN -d/c Lasix 40mg IVP daily -start home regimen on 10/08: Lasix 40mg PO every other day -Monitor I&O COPD -Stable on O2L via NC -On home O2 -Duonebs Q6H PRN SOB HTN -controlled, chronic -continue home med: Enalapril 2.5mg PO daily Multiple Myeloma/Anemia -stable, chronic -heme/onc consult: Dr Vilchis, (sees her as outpt), f/u labs ordered -On single agent Dexamethasone 20mg PO once weekly (on mondays) -b12 im daily Hypothyroidism -TSH: 0.15, repeat was 0.06 -continue with home med: Levothyroxine 125mcg PO QD -adjust medication as necessary during outpatient follow up Swollen right cheek -pt reports this occurs intermittently due to her steroid use -Not painful, able to open her mouth wide, no abnormality noted in side her mouth -will continue to monitor Depression -stable -continue with home meds (Buspirone 10mg PO BID, Klonopin 0.5mg PO QHS, held Lexapro 20mg PO QD) -held abilify and lexapro due to possible cause of restless movements Sleep apnea -uses CPAP qhs DVT/GI prophylaxis -Lovenox 40mg SC QD -Pepcid 20mg PO QD
[2016-10-06] MEDS: Pantoprazole 20 mg EC Tab PO SCH (08:47)
[2016-10-06] MEDS: RIOCIGUAT 1 MG PO SCH ×3 (08:47→16:59)
[2016-10-06] MEDS: Enoxaparin 40 mg Syringe SC SCH (08:47)
[2016-10-06] MEDS: Insulin Lispro (humaLOG) 100 Units/ml Inj SC SCH ×3 (08:50→17:00)
[2016-10-06] MEDS ORDERED: Tolvaptan 15 MG TAB PO ONE (09:16)
--- NOTE | 2016-10-06 09:16 | CP.PCM.PN ---
Subjective - Date & Time of Evaluation Date of Evaluation: 10/06/16 Time of Evaluation: 09:14 - Subjective Subjective: pt seen and examined, follow up consult is dictated #[id number] 1. hyponatremia r/o siadh sec to drugs, lexapro d/rd lexapro for now add tolvaptan 15 mg po x1 Objective - Vital Signs/Intake and Output Vital Signs (last 24 hours): Temp Pulse Resp BP Pulse Ox 98.1 F 88 18 130/53 L 97 10/06/16 08:00 10/06/16 08:00 10/06/16 08:00 10/06/16 08:49 10/06/16 08:00 - Medications Medications: Current Medications Acetaminophen (Tylenol 325mg Tab) 650 mg PO Q6 PRN PRN Reason: Pain, Mild (1-3) Albuterol/Ipratropium (Duoneb 3 Mg/0.5 Mg (3 Ml) Ud) 3 ml INH RQ4 PRN PRN Reason: Shortness of Breath Last Admin: 10/06/16 07:39 Dose: 3 ml Aspirin (Ecotrin) 81 mg PO DAILY [facility] Last Admin: 10/06/16 09:00 Dose: 81 mg Atorvastatin Calcium (Lipitor) 20 mg PO QPM [facility] Last Admin: 10/05/16 18:19 Dose: 20 mg Benztropine Mesylate (Cogentin) 1 mg PO Q8@0000,0800,1600 [facility] Last Admin: 10/06/16 08:46 Dose: 1 mg Buspirone HCl (Buspar) 10 mg PO BID [facility] Last Admin: 10/06/16 08:46 Dose: 10 mg Clonazepam (Klonopin) 0.5 mg PO HS [facility] Last Admin: 10/05/16 22:00 Dose: 0.5 mg Cyanocobalamin (Vitamin B12 1000 Mcg/Ml Inj) 1,000 mcg IM DAILY [facility] Last Admin: 10/06/16 08:48 Dose: 1,000 mcg Dexamethasone (Decadron) 20 mg PO Mo@0900 [facility] Last Admin: 10/05/16 09:23 Dose: 20 mg Enalapril Maleate (Vasotec) 2.5 mg PO DAILY@0900 [facility] Last Admin: 10/06/16 08:48 Dose: 2.5 mg Enoxaparin Sodium (Lovenox) 40 mg SC DAILY [facility] PRN Reason: Protocol Last Admin: 10/06/16 08:47 Dose: 40 mg Ergocalciferol (Drisdol 50,000 Intl Units Cap) 1 cap PO FR [facility] Last Admin: 10/02/16 18:27 Dose: 1 cap Famotidine (Pepcid) 20 mg PO BID [facility] Last Admin: 10/06/16 08:47 Dose: 20 mg Furosemide (Lasix) 40 mg IVP DAILY [facility] Last Admin: 10/06/16 08:49 Dose: 40 mg Guaifenesin (Robitussin) 200 mg PO Q6 PRN PRN Reason: Cough Last Admin: 10/05/16 09:48 Dose: 200 mg Home Med (Riociguat [Adempas]) 1 mg PO TID@0900,1300,1700 [facility] Last Admin: 10/06/16 08:47 Dose: 1 mg Insulin Detemir (Levemir) 12 units SC HS [facility] Last Admin: 10/05/16 23:08 Dose: 12 u Insulin Human Lispro (Humalog) 8 units SC ACTID [facility] Last Admin: 10/06/16 08:50 Dose: 8 units Levothyroxine Sodium (Synthroid) 125 mcg PO DAILY@0630 [facility] Last Admin: 10/06/16 05:57 Dose: 125 mcg Lidocaine (Lidoderm) 1 ea TD DAILY PRN PRN Reason: Pain, moderate (4-7) Last Admin: 10/05/16 09:42 Dose: 1 ea Metformin HCl (Glucophage) 500 mg PO BIDWM [facility] Last Admin: 10/06/16 08:50 Dose: 500 mg Pantoprazole Sodium (Protonix Ec Tab) 20 mg PO DAILY [facility] Last Admin: 10/06/16 08:47 Dose: 20 mg - Labs Labs: 10/01/16 06:00 10/06/16 05:50 PT 11.8 Seconds (9.8-13.1) 09/30/16 13:32 INR 1.0 (0.9-1.2) 09/30/16 13:32
--- NOTE | 2016-10-06 12:28 | PQF GENQUE ---
Dr. Jane, (1)Acute on Chronic Diastolic CHF versus Chronic Diastolic CHF: POA? (2) please include "POA" H and P:presents for evaluation of 1 week of increased sob and restless movement CXR- Mild central pulmonary vascular congestive changes. . There may also be some mild bibasilar atelectasis left greater than right. PE: Respiratory Exam: Decreased Breath Sounds (bilateral bases), Rales (mild bilateral bases), Respiratory Distress (mild) Extremities exam: Positive for: normal inspection, pedal edema (1+) (1) Dyspnea: - x 1 wk worsening - bilateral lower extremity edema with mild crackles/decreased breath sounds at bases - BNP: 6830 - Will treat for CHF Exacerbation at this time - Monitor O2 status on telemetry unit - Lasix - Monitor weights (4) CHF, diastolic (Compensated) -Last echo 04/02/15 -Grade I abnormal relaxation pattern -Ejection fraction 60-65% -Normal left ventricular wall thickness -Lasix 20mg IVP x 1 -Lasix 40mg IVP daily (as home med 40mg PO every OTHER day) -Monitor I O, obtain echo -BNP 6830 This form is a permanent part of the medical record Clarification of your documentation is requested to better reflect the severity of illness and intensity of treatment of your patient. Indicators present [] Specify: [] [] Specify: [] [] Specify: [] [] Specify: [] Location in the medical record that reflects the above clinical findings: [] Treatment Provided: [] PHYSICIAN'S RESPONSE pt had acute on chronci diastolic chf Based on your medical judgment of the clinical indicators outlined above please clarify the following: [] Practitioner response [] If unable to determine, please check the box, sign and date. Present On Admission (POA) Indicator: [] Present at the time of admission [] Not present at the time of admission [] Clinically Undetermined In responding to this query, please exercise your independent professional judgment. The fact that a question is asked does not imply that any particular answer is desired or expected. Thank you for your clarification on this documentation. If you have any questions please call. * Thank you, Gisella Perez RN BSN ext. #[phone] MTDD
--- NOTE | 2016-10-06 13:05 | CP.PCM.PN ---
Objective - Vital Signs/Intake and Output Vital Signs (last 24 hours): Temp Pulse Resp BP Pulse Ox 97.5 F L 94 H 18 104/51 L 96 10/06/16 12:00 10/06/16 12:00 10/06/16 12:00 10/06/16 12:00 10/06/16 12:00 - Medications Medications: Current Medications Acetaminophen (Tylenol 325mg Tab) 650 mg PO Q6 PRN PRN Reason: Pain, Mild (1-3) Albuterol/Ipratropium (Duoneb 3 Mg/0.5 Mg (3 Ml) Ud) 3 ml INH RQ4 PRN PRN Reason: Shortness of Breath Last Admin: 10/06/16 11:09 Dose: 3 ml Aspirin (Ecotrin) 81 mg PO DAILY [facility] Last Admin: 10/06/16 09:00 Dose: 81 mg Atorvastatin Calcium (Lipitor) 20 mg PO QPM [facility] Last Admin: 10/05/16 18:19 Dose: 20 mg Benztropine Mesylate (Cogentin) 1 mg PO Q8@0000,0800,1600 [facility] Last Admin: 10/06/16 08:46 Dose: 1 mg Buspirone HCl (Buspar) 10 mg PO BID [facility] Last Admin: 10/06/16 08:46 Dose: 10 mg Clonazepam (Klonopin) 0.5 mg PO HS [facility] Last Admin: 10/05/16 22:00 Dose: 0.5 mg Cyanocobalamin (Vitamin B12 1000 Mcg/Ml Inj) 1,000 mcg IM DAILY [facility] Last Admin: 10/06/16 08:48 Dose: 1,000 mcg Dexamethasone (Decadron) 20 mg PO Mo@0900 [facility] Last Admin: 10/05/16 09:23 Dose: 20 mg Enalapril Maleate (Vasotec) 2.5 mg PO DAILY@0900 [facility] Last Admin: 10/06/16 08:48 Dose: 2.5 mg Enoxaparin Sodium (Lovenox) 40 mg SC DAILY [facility] PRN Reason: Protocol Last Admin: 10/06/16 08:47 Dose: 40 mg Ergocalciferol (Drisdol 50,000 Intl Units Cap) 1 cap PO FR [facility] Last Admin: 10/02/16 18:27 Dose: 1 cap Famotidine (Pepcid) 20 mg PO BID [facility] Last Admin: 10/06/16 08:47 Dose: 20 mg Furosemide (Lasix) 40 mg PO ONCE ONE Stop: 10/08/16 09:01 Guaifenesin (Robitussin) 200 mg PO Q6 PRN PRN Reason: Cough Last Admin: 10/05/16 09:48 Dose: 200 mg Home Med (Riociguat [Adempas]) 1 mg PO TID@0900,1300,1700 [facility] Last Admin: 10/06/16 12:02 Dose: 1 mg Insulin Detemir (Levemir) 12 units SC HS [facility] Last Admin: 10/05/16 23:08 Dose: 12 u Insulin Human Lispro (Humalog) 8 units SC ACTID [facility] Last Admin: 10/06/16 11:54 Dose: 8 units Levothyroxine Sodium (Synthroid) 125 mcg PO DAILY@0630 [facility] Last Admin: 10/06/16 05:57 Dose: 125 mcg Lidocaine (Lidoderm) 1 ea TD DAILY PRN PRN Reason: Pain, moderate (4-7) Last Admin: 10/05/16 09:42 Dose: 1 ea Metformin HCl (Glucophage) 500 mg PO BIDWM [facility] Last Admin: 10/06/16 08:50 Dose: 500 mg - Labs Labs: 10/01/16 06:00 10/06/16 05:50 PT 11.8 Seconds (9.8-13.1) 09/30/16 13:32 INR 1.0 (0.9-1.2) 09/30/16 13:32
--- NOTE | 2016-10-06 14:31 | CON ---
DATE: FOLLOWUP RENAL CONSULTATION LOCATION: The patient is located in room 405, bed 2. REQUESTED BY: Ciara Jane MD REASON FOR CONSULTATION: Hyponatremia for further evaluation. HISTORY OF PRESENT ILLNESS: Ms. Perkins is a 70-year-old elderly female with a past medical history significant for hypertension, type 2 diabetes, hypothyroidism, COPD, diastolic CHF grade 1, pulmonary hypertension, sleep apnea, multiple myeloma, and PE, presented with chief complaint of increase shortness of breath, restless and tremors. The patient was on Abilify, which was discontinued on admission and started on Lexapro with the serum sodium 142. Now renal followup was requested for evaluation of the hyponatremia since 10/01/2016. The patient still complaints of tremors. Denies any dizziness. Denies any chest pain, palpitations. Denies any fever, cough. IV fluids was discontinued yesterday morning and also Lexapro was discontinued yesterday evening. The patient is not in acute distress. No chest pain. No palpation. No fever. No cough. The patient complaints of tremors. PHYSICAL EXAMINATION VITAL SIGNS: This morning as follows; blood pressure 130/53, pulse 88, respirations 18, temperature 98.1, saturation 97%. Height 4 feet 10 inches and weight is 187 pounds. GENERAL: Ms. Perkins is a 70-year-old elderly female, moderately built, moderately nourished, not in distress. HEENT: Pupils are normal and reactive to light and accommodation. Conjunctivae pink. Sclerae anicteric. Tongue is moist. Trachea is midline. LUNGS: Symmetry on both sides, bilateral breath sounds present. Clear on auscultation. CARDIOVASCULAR: [place] at the fifth intercostal space, midclavicular line. S1 and S2 audible. No murmur, no gallop. ABDOMEN: Normal in appearance, soft and tympanitic. No guarding. No rigidity. No hepatosplenomegaly. II through XII grossly intact. Sensory, motor system is within normal limits. EXTREMITIES: No cyanosis. No clubbing. The patient has tremors in both upper and lower extremities. CURRENT MEDICATIONS: Include as follows: BuSpar 10 mg p.o. b.i.d., Cogentin 1 mg three times a day, Decadron 20 mg, ergocalciferol 50,000 units q. weekly, Duoneb inhaler, Ecotrin 81 mg daily, metformin 400 mg p.o. b.i.d., insulin 8 units subcu t.i.d., Klonopin 0.5 mg p.o. at bedtime, Lasix 40 mg IV daily, insulin Levemir 12 units subcu at bedtime, Lidoderm patch, Lipitor 20 mg p.o. at bedtime, Lovenox 40 mg subcu daily, Pepcid 20 mg p.o. b.i.d., Protonix 20 mg daily, Synthroid 125 mcg daily, Tylenol and Vasotec 2.5 mg p.o. daily. LABORATORY DATA: Includes as follows as of this morning; sodium is 124, potassium 4.4, chloride 88, CO2 of 24, BUN 22, creatinine 1.0, glucose 241, and calcium 8.6. Total bilirubin , AST 23, ALT 37, alkaline phosphates 88. Total protein 6.5, albumin is 4.2. TSH 0.06. Urine osmolality 182. Urine sodium is 33. Urine potassium is 23.8. Serum osmolality 262 and uric acid is 7.4. ASSESSMENT: In summary, Ms. Perkins is a 70-year-old elderly female with history of hypertension, diabetes, congestive heart failure, chronic obstructive pulmonary disease, pulmonary hypertension, sleep apnea, multiple myeloma, pulmonary embolism, questionable anxiety and depression on Abilify at home and now she is started on Lexapro on 10/01/2016 with low serum sodium. 1. Hyponatremia, picture consistent with euvolemic hypotonic hyponatremia, cannot rule out syndrome of inappropriate antidiuretic hormone secondary to drugs and thyroid disorder. 2. Hypertension. 3. Diabetes. Discontinue Lexapro due to hyponatremia, look for now and monitor BMP daily and we will give tolvaptan 15 mg p.o. x1 dose today. 4. Hypertension. Blood pressure is stable. Continue on current medications. 5. Depression, anxiety. Followup with psychiatrist and titrate the medication. If possible continue to hold Lexapro and switch to some other antidepressants. We will follow with you. Thank you for allowing me to participate in your patient's care. Radha Gresham MD [facility] # [id number]
--- NOTE | 2016-10-06 18:46 | CP.PCM.PN ---
Subjective - Date & Time of Evaluation Date of Evaluation: 10/06/16 Time of Evaluation: 16:00 - Subjective Subjective: patient has less dyspnea today. Objective - Vital Signs/Intake and Output Vital Signs (last 24 hours): Temp Pulse Resp BP Pulse Ox 97.5 F L 84 20 101/63 98 10/06/16 16:56 10/06/16 16:56 10/06/16 16:56 10/06/16 16:56 10/06/16 16:56 Intake and Output: 10/06/16 10/06/16 06:59 18:59 Intake Total 740 Output Total 640 Balance 100 - Medications Medications: Current Medications Acetaminophen (Tylenol 325mg Tab) 650 mg PO Q6 PRN PRN Reason: Pain, Mild (1-3) Albuterol/Ipratropium (Duoneb 3 Mg/0.5 Mg (3 Ml) Ud) 3 ml INH RQ4 PRN PRN Reason: Shortness of Breath Last Admin: 10/06/16 11:09 Dose: 3 ml Aspirin (Ecotrin) 81 mg PO DAILY [facility] Last Admin: 10/06/16 09:00 Dose: 81 mg Atorvastatin Calcium (Lipitor) 20 mg PO QPM [facility] Last Admin: 10/06/16 17:03 Dose: 20 mg Benztropine Mesylate (Cogentin) 1 mg PO Q8@0000,0800,1600 [facility] Last Admin: 10/06/16 16:58 Dose: 1 mg Buspirone HCl (Buspar) 10 mg PO BID [facility] Last Admin: 10/06/16 16:58 Dose: 10 mg Clonazepam (Klonopin) 0.5 mg PO HS [facility] Last Admin: 10/05/16 22:00 Dose: 0.5 mg Cyanocobalamin (Vitamin B12 1000 Mcg/Ml Inj) 1,000 mcg IM DAILY [facility] Last Admin: 10/06/16 08:48 Dose: 1,000 mcg Dexamethasone (Decadron) 20 mg PO Mo@0900 [facility] Last Admin: 10/05/16 09:23 Dose: 20 mg Enalapril Maleate (Vasotec) 2.5 mg PO DAILY@0900 [facility] Last Admin: 10/06/16 08:48 Dose: 2.5 mg Enoxaparin Sodium (Lovenox) 40 mg SC DAILY [facility] PRN Reason: Protocol Last Admin: 10/06/16 08:47 Dose: 40 mg Ergocalciferol (Drisdol 50,000 Intl Units Cap) 1 cap PO FR [facility] Last Admin: 10/02/16 18:27 Dose: 1 cap Escitalopram Oxalate (Lexapro) 10 mg PO HS [facility] Famotidine (Pepcid) 20 mg PO BID [facility] Last Admin: 10/06/16 16:59 Dose: 20 mg Furosemide (Lasix) 40 mg PO ONCE ONE Stop: 10/08/16 09:01 Guaifenesin (Robitussin) 200 mg PO Q6 PRN PRN Reason: Cough Last Admin: 10/05/16 09:48 Dose: 200 mg Home Med (Riociguat [Adempas]) 1 mg PO TID@0900,1300,1700 [facility] Last Admin: 10/06/16 16:59 Dose: 1 mg Insulin Detemir (Levemir) 12 units SC HS [facility] Last Admin: 10/05/16 23:08 Dose: 12 u Insulin Human Lispro (Humalog) 8 units SC ACTID [facility] Last Admin: 10/06/16 17:00 Dose: 8 units Levothyroxine Sodium (Synthroid) 75 mcg PO DAILY@0630 [facility] Lidocaine (Lidoderm) 1 ea TD DAILY PRN PRN Reason: Pain, moderate (4-7) Last Admin: 10/05/16 09:42 Dose: 1 ea Metformin HCl (Glucophage) 500 mg PO BIDWM [facility] Last Admin: 10/06/16 16:58 Dose: 500 mg - Labs Labs: 10/01/16 06:00 10/06/16 05:50 PT 11.8 Seconds (9.8-13.1) 09/30/16 13:32 INR 1.0 (0.9-1.2) 09/30/16 13:32 - Constitutional Appears: Non-toxic - Head Exam Head Exam: NORMAL INSPECTION - Eye Exam Eye Exam: Normal appearance - ENT Exam ENT Exam: Mucous Membranes Moist - Neck Exam Neck Exam: Full ROM - Respiratory Exam Respiratory Exam: Decreased Breath Sounds - Cardiovascular Exam Cardiovascular Exam: REGULAR RHYTHM - GI/Abdominal Exam GI & Abdominal Exam: Normal Bowel Sounds - Rectal Exam Rectal Exam: Deferred - Extremities Exam Extremities Exam: absent: Pedal Edema - Back Exam Back Exam: NORMAL INSPECTION - Neurological Exam Neurological Exam: Alert - Psychiatric Exam Psychiatric exam: Normal Affect - Skin Skin Exam: Normal Color Assessment and Plan (1) Polymorphic ventricular tachycardia Assessment & Plan: no further arrhythmia on telemetry. keep K>4.0, Mag>2.0. Monitor sodium Status: Acute (2) Pulmonary hypertension Assessment & Plan: on Adempas as outpatient Status: Chronic
--- NOTE | 2016-10-06 20:35 | CP.PCM.PN ---
Subjective - Date & Time of Evaluation Date of Evaluation: 10/06/16 Time of Evaluation: 19:00 - Subjective Subjective: No complaints, still with involuntary movements. Objective - Vital Signs/Intake and Output Vital Signs (last 24 hours): Temp Pulse Resp BP Pulse Ox 97.4 F L 83 20 106/69 98 10/06/16 19:35 10/06/16 19:35 10/06/16 19:35 10/06/16 19:35 10/06/16 19:35 Intake and Output: 10/06/16 10/07/16 18:59 06:59 Intake Total 740 Output Total 640 Balance 100 - Medications Medications: Current Medications Acetaminophen (Tylenol 325mg Tab) 650 mg PO Q6 PRN PRN Reason: Pain, Mild (1-3) Albuterol/Ipratropium (Duoneb 3 Mg/0.5 Mg (3 Ml) Ud) 3 ml INH RQ4 PRN PRN Reason: Shortness of Breath Last Admin: 10/06/16 11:09 Dose: 3 ml Aspirin (Ecotrin) 81 mg PO DAILY [facility] Last Admin: 10/06/16 09:00 Dose: 81 mg Atorvastatin Calcium (Lipitor) 20 mg PO QPM [facility] Last Admin: 10/06/16 17:03 Dose: 20 mg Benztropine Mesylate (Cogentin) 1 mg PO Q8@0000,0800,1600 [facility] Last Admin: 10/06/16 16:58 Dose: 1 mg Buspirone HCl (Buspar) 10 mg PO BID [facility] Last Admin: 10/06/16 16:58 Dose: 10 mg Clonazepam (Klonopin) 0.5 mg PO HS [facility] Last Admin: 10/05/16 22:00 Dose: 0.5 mg Cyanocobalamin (Vitamin B12 1000 Mcg/Ml Inj) 1,000 mcg IM DAILY [facility] Last Admin: 10/06/16 08:48 Dose: 1,000 mcg Dexamethasone (Decadron) 20 mg PO Mo@0900 [facility] Last Admin: 10/05/16 09:23 Dose: 20 mg Enalapril Maleate (Vasotec) 2.5 mg PO DAILY@0900 [facility] Last Admin: 10/06/16 08:48 Dose: 2.5 mg Enoxaparin Sodium (Lovenox) 40 mg SC DAILY [facility] PRN Reason: Protocol Last Admin: 10/06/16 08:47 Dose: 40 mg Ergocalciferol (Drisdol 50,000 Intl Units Cap) 1 cap PO FR [facility] Last Admin: 10/02/16 18:27 Dose: 1 cap Escitalopram Oxalate (Lexapro) 10 mg PO HS [facility] Famotidine (Pepcid) 20 mg PO BID [facility] Last Admin: 10/06/16 16:59 Dose: 20 mg Furosemide (Lasix) 40 mg PO ONCE ONE Stop: 10/08/16 09:01 Guaifenesin (Robitussin) 200 mg PO Q6 PRN PRN Reason: Cough Last Admin: 10/05/16 09:48 Dose: 200 mg Home Med (Riociguat [Adempas]) 1 mg PO TID@0900,1300,1700 [facility] Last Admin: 10/06/16 16:59 Dose: 1 mg Insulin Detemir (Levemir) 12 units SC HS [facility] Last Admin: 10/05/16 23:08 Dose: 12 u Insulin Human Lispro (Humalog) 8 units SC ACTID [facility] Last Admin: 10/06/16 17:00 Dose: 8 units Levothyroxine Sodium (Synthroid) 75 mcg PO DAILY@0630 [facility] Lidocaine (Lidoderm) 1 ea TD DAILY PRN PRN Reason: Pain, moderate (4-7) Last Admin: 10/05/16 09:42 Dose: 1 ea Metformin HCl (Glucophage) 500 mg PO BIDWM [facility] Last Admin: 10/06/16 16:58 Dose: 500 mg - Labs Labs: 10/01/16 06:00 10/06/16 05:50 PT 11.8 Seconds (9.8-13.1) 09/30/16 13:32 INR 1.0 (0.9-1.2) 09/30/16 13:32 - Head Exam Head Exam: ATRAUMATIC - Eye Exam Eye Exam: Normal appearance - ENT Exam ENT Exam: Mucous Membranes Dry - Respiratory Exam Respiratory Exam: NORMAL BREATHING PATTERN - Cardiovascular Exam Cardiovascular Exam: +S1, +S2 - GI/Abdominal Exam GI & Abdominal Exam: Normal Bowel Sounds - Extremities Exam Extremities Exam: Normal Inspection Assessment and Plan (1) Anemia Assessment & Plan: chronic disease multiple myeloma H/H fairly stable Status: Chronic (2) Multiple myeloma Assessment & Plan: on single agent weekly steroids protein levels well controlled Status: Chronic
[2016-10-06] MEDS: Insulin Detemir 100 Units/ml Inj SC SCH (22:39)
[2016-10-07] MEDS: Levothyroxine 75 MCG TAB PO SCH (05:53)
[2016-10-07 06:34] LABS: HEMOGLOBIN 10.6 g/dL (12.0-16.0); MEAN CORPUSCULAR HEMOGLOBIN 28.6 pg (27.0-31.0); MEAN CORPUSCULAR HGB CONC 33.3 g/dL (33.0-37.0); RBC 3.69 Mil/uL (3.80-5.20); RED CELL DISTRIBUTION WIDTH 15.1 % (11.5-14.5); WHITE BLOOD COUNT 7.7 K/uL (4.8-10.8)
[2016-10-07 06:45] LABS: BLOOD UREA NITROGEN 30 mg/dl (7-17); CALCIUM 8.4 mg/dL (8.4-10.2); GFR AFRICAN-AMERICAN > 60; GFR NON-AFRICAN AMERICAN > 60
--- NOTE | 2016-10-07 06:50 | CP.PCM.PN ---
Subjective - Date & Time of Evaluation Date of Evaluation: 10/07/16 Time of Evaluation: 08:50 - Subjective Subjective: No acute events overnight. Patient endorses some worsening dyspnea today. Her breathing was better yesterday. She is sitting upright in chair out of bed with O2 via NC. Slept ok. Tolerating her diet. Ambulating with assistance. Spoke with patient last night, says she drinks a lot of water. Will attempt to better fluid restrict today, d/w nurse and told patient to abstain from drinking so much water. Objective - Vital Signs/Intake and Output Vital Signs (last 24 hours): Temp Pulse Resp BP Pulse Ox 98.6 F 74 20 104/62 98 10/07/16 05:00 10/07/16 05:00 10/07/16 05:00 10/07/16 05:00 10/07/16 05:00 Intake and Output: 10/06/16 10/07/16 18:59 06:59 Intake Total 740 Output Total 640 Balance 100 - Medications Medications: Current Medications Acetaminophen (Tylenol 325mg Tab) 650 mg PO Q6 PRN PRN Reason: Pain, Mild (1-3) Albuterol/Ipratropium (Duoneb 3 Mg/0.5 Mg (3 Ml) Ud) 3 ml INH RQ4 PRN PRN Reason: Shortness of Breath Last Admin: 10/06/16 11:09 Dose: 3 ml Aspirin (Ecotrin) 81 mg PO DAILY [facility] Last Admin: 10/06/16 09:00 Dose: 81 mg Atorvastatin Calcium (Lipitor) 20 mg PO QPM [facility] Last Admin: 10/06/16 17:03 Dose: 20 mg Benztropine Mesylate (Cogentin) 1 mg PO Q8@0000,0800,1600 [facility] Last Admin: 10/07/16 00:41 Dose: 1 mg Buspirone HCl (Buspar) 10 mg PO BID [facility] Last Admin: 10/06/16 16:58 Dose: 10 mg Clonazepam (Klonopin) 0.5 mg PO HS [facility] Last Admin: 10/06/16 22:35 Dose: 0.5 mg Cyanocobalamin (Vitamin B12 1000 Mcg/Ml Inj) 1,000 mcg IM DAILY [facility] Last Admin: 10/06/16 08:48 Dose: 1,000 mcg Dexamethasone (Decadron) 20 mg PO Mo@0900 [facility] Last Admin: 10/05/16 09:23 Dose: 20 mg Enalapril Maleate (Vasotec) 2.5 mg PO DAILY@0900 [facility] Last Admin: 10/06/16 08:48 Dose: 2.5 mg Enoxaparin Sodium (Lovenox) 40 mg SC DAILY [facility] PRN Reason: Protocol Last Admin: 10/06/16 08:47 Dose: 40 mg Ergocalciferol (Drisdol 50,000 Intl Units Cap) 1 cap PO FR [facility] Last Admin: 10/02/16 18:27 Dose: 1 cap Escitalopram Oxalate (Lexapro) 10 mg PO HS [facility] Last Admin: 10/06/16 22:32 Dose: 10 mg Famotidine (Pepcid) 20 mg PO BID [facility] Last Admin: 10/06/16 16:59 Dose: 20 mg Furosemide (Lasix) 40 mg PO ONCE ONE Stop: 10/08/16 09:01 Guaifenesin (Robitussin) 200 mg PO Q6 PRN PRN Reason: Cough Last Admin: 10/05/16 09:48 Dose: 200 mg Home Med (Riociguat [Adempas]) 1 mg PO TID@0900,1300,1700 [facility] Last Admin: 10/06/16 16:59 Dose: 1 mg Insulin Detemir (Levemir) 12 units SC HS [facility] Last Admin: 10/06/16 22:39 Dose: 12 u Insulin Human Lispro (Humalog) 8 units SC ACTID [facility] Last Admin: 10/06/16 17:00 Dose: 8 units Levothyroxine Sodium (Synthroid) 75 mcg PO DAILY@0630 [facility] Last Admin: 10/07/16 05:53 Dose: 75 mcg Lidocaine (Lidoderm) 1 ea TD DAILY PRN PRN Reason: Pain, moderate (4-7) Last Admin: 10/05/16 09:42 Dose: 1 ea Metformin HCl (Glucophage) 500 mg PO BIDWM [facility] Last Admin: 10/06/16 16:58 Dose: 500 mg - Labs Labs: 10/01/16 06:00 10/07/16 05:50 PT 11.8 Seconds (9.8-13.1) 09/30/16 13:32 INR 1.0 (0.9-1.2) 07/26/17 13:32 - Constitutional Appears: Non-toxic - Eye Exam Eye Exam: EOMI, Normal appearance - ENT Exam ENT Exam: Mucous Membranes Moist - Respiratory Exam Respiratory Exam: Rales (right lung base). absent: Respiratory Distress Additional comments: mildy dyspneic - Cardiovascular Exam Cardiovascular Exam: REGULAR RHYTHM, +S1, +S2 - GI/Abdominal Exam GI & Abdominal Exam: Soft. absent: Distended, Tenderness - Extremities Exam Extremities Exam: Pedal Edema (+1) - Neurological Exam Neurological Exam: Alert, Awake, CN II-XII Intact - Psychiatric Exam Psychiatric exam: Normal Affect, Normal Mood - Skin Skin Exam: Dry, Intact, Normal Color Assessment and Plan - Assessment and Plan (Free Text) Assessment: 70 yr old F admitted for worsening SOB and whole body/extremity tremors at rest that persist, her hyponatremia persists despite ?fluid restriction and tolvaptan. Due to her episodic torsades de pointes, magnesium level is being monitored, 1.9 today goal to keep above 2. Will be replaced. Workup for Adrenal insufficiency and consult Dr. Mann (endocrinology) for further recommendations. Plan: Hyponatremia -persists, level is 123. possibly secondary to adrenal insufficiency given low AM cortisol level (1.0L) -endocrine consult appreciated, Dr. Mann -water restriction, given one time dose Tolvaptan as per Nephro recommendations. -monitor Na+, f/u acth/renin, consider cosyntropin test Torsades de Pointes -resolved -Patient had one episode of torasdes de pointes likely due to hypomagnesemia, cardiology is following -likely secondary to hypomagnesemia. will keep Mag level >2.0 , K+>4.0 -mag was replaced -monitor K/Mag Dyspnea -multifactorial, has COPD, severe pulmonary hypertension and CHF -continues to have dyspnea today, +crackles, possible she needs daily lasix or other diuretic medication in conjunction with water restriction, will d/w attending Abnormal involuntary movements -full body dyskinesia without involvement of face -Possibly drug related, abilify was held -Neurology consulted: Cogentin 1mg PO TID Severe Pulmonary Hypertension -chronic; right ventricular systolic pressure ~78mmHg -cardiology-Dr. Angel -Monempanalisa (Riociguat) 1mg PO TID Insulin dependent diabetes mellitus type 2 -Last HgbA1c: 8.7% on 07/02/16 -Continue home meds: Metformin 500mg PO BID, Adjusted 10/05: Levemir 12 units SC HS, Humalog 8 units SC ACTID -Accuchecks -Hypoglycemia protocol CHF with preserved EF -chronic -Echo: LVEF 65-70%, right ventricular systolic pressure ~78mmHg compatible with severe pulmonary HTN -previously Lasix 40mg IVP dialy, started home regimen on 10/08: Lasix 40mg PO every other day -Monitor I&O COPD -Stable on O2L via NC -On home O2 -Duonebs Q6H PRN SOB HTN -controlled, chronic -continue home med: Enalapril 2.5mg PO daily Multiple Myeloma/Anemia -stable, chronic -heme/onc consult: Dr Vilchis, (sees her as outpt), f/u labs ordered -On single agent Dexamethasone 20mg PO once weekly (on mondays) -b12 im daily Hypothyroidism -TSH: 0.15, repeat was 0.06 -continue with home med: Levothyroxine 125mcg PO QD -adjust medication as necessary during outpatient follow up Depression -stable -continue with home meds (Buspirone 10mg PO BID, Klonopin 0.5mg PO QHS, Lexapro 20mg PO QD) -held abilify -lexapro restarted at lower dose, monitor Na+ level, movements not improved Sleep apnea -uses CPAP qhs DVT/GI prophylaxis -Lovenox 40mg SC QD -Pepcid 20mg PO QD
[2016-10-07] MEDS: RIOCIGUAT 1 MG PO SCH ×3 (08:22→17:09)
[2016-10-07] MEDS: Insulin Lispro (humaLOG) 100 Units/ml Inj SC SCH ×3 (08:24→17:10)
[2016-10-07] MEDS: Enoxaparin 40 mg Syringe SC SCH (09:08)
[2016-10-07] MEDS ORDERED: Magnesium Sulfate 2 gm/50 ml 2 GM/50 ML BAG IVPB ONE (09:30)
[2016-10-07] MEDS ORDERED: Sodium Chloride 0.9% 1,000 ML IV SCH (10:15)
--- NOTE | 2016-10-07 12:09 | CP.PCM.PN ---
Subjective - Date & Time of Evaluation Date of Evaluation: 10/07/16 Time of Evaluation: 11:30 - Subjective Subjective: Appears comfortable, no complaints. Objective - Vital Signs/Intake and Output Vital Signs (last 24 hours): Temp Pulse Resp BP Pulse Ox 97.7 F 79 18 106/59 L 95 10/07/16 09:00 10/07/16 09:00 10/07/16 09:00 10/07/16 09:00 10/07/16 09:00 - Medications Medications: Current Medications Acetaminophen (Tylenol 325mg Tab) 650 mg PO Q6 PRN PRN Reason: Pain, Mild (1-3) Albuterol/Ipratropium (Duoneb 3 Mg/0.5 Mg (3 Ml) Ud) 3 ml INH RQ4 PRN PRN Reason: Shortness of Breath Last Admin: 10/06/16 11:09 Dose: 3 ml Aspirin (Ecotrin) 81 mg PO DAILY [facility] Last Admin: 10/07/16 08:23 Dose: 81 mg Atorvastatin Calcium (Lipitor) 20 mg PO QPM [facility] Last Admin: 10/06/16 17:03 Dose: 20 mg Benztropine Mesylate (Cogentin) 1 mg PO Q8@0000,0800,1600 [facility] Last Admin: 10/07/16 08:22 Dose: 1 mg Buspirone HCl (Buspar) 10 mg PO BID [facility] Last Admin: 10/07/16 09:08 Dose: 10 mg Clonazepam (Klonopin) 0.5 mg PO HS [facility] Last Admin: 10/06/16 22:35 Dose: 0.5 mg Cyanocobalamin (Vitamin B12 1000 Mcg/Ml Inj) 1,000 mcg IM DAILY [facility] Last Admin: 10/07/16 09:09 Dose: 1,000 mcg Dexamethasone (Decadron) 20 mg PO Mo@0900 [facility] Last Admin: 10/05/16 09:23 Dose: 20 mg Enalapril Maleate (Vasotec) 2.5 mg PO DAILY@0900 [facility] Last Admin: 10/07/16 09:09 Dose: 2.5 mg Enoxaparin Sodium (Lovenox) 40 mg SC DAILY [facility] PRN Reason: Protocol Last Admin: 10/07/16 09:08 Dose: 40 mg Ergocalciferol (Drisdol 50,000 Intl Units Cap) 1 cap PO FR [facility] Last Admin: 10/02/16 18:27 Dose: 1 cap Escitalopram Oxalate (Lexapro) 10 mg PO HS [facility] Last Admin: 10/06/16 22:32 Dose: 10 mg Famotidine (Pepcid) 20 mg PO BID [facility] Last Admin: 10/07/16 08:23 Dose: 20 mg Guaifenesin (Robitussin) 200 mg PO Q6 PRN PRN Reason: Cough Last Admin: 10/05/16 09:48 Dose: 200 mg Home Med (Riociguat [Adempas]) 1 mg PO TID@0900,1300,1700 [facility] Last Admin: 10/07/16 08:22 Dose: 1 mg Sodium Chloride (Sodium Chloride 0.9%) 1,000 mls @ 100 mls/hr IV .Q10H [facility] Stop: 10/08/16 10:15 Insulin Detemir (Levemir) 12 units SC HS [facility] Last Admin: 10/06/16 22:39 Dose: 12 u Insulin Human Lispro (Humalog) 8 units SC ACTID [facility] Last Admin: 10/07/16 08:24 Dose: 8 units Levothyroxine Sodium (Synthroid) 75 mcg PO DAILY@0630 [facility] Last Admin: 10/07/16 05:53 Dose: 75 mcg Lidocaine (Lidoderm) 1 ea TD DAILY PRN PRN Reason: Pain, moderate (4-7) Last Admin: 10/05/16 09:42 Dose: 1 ea Metformin HCl (Glucophage) 500 mg PO BIDWM [facility] Last Admin: 10/07/16 08:21 Dose: 500 mg - Labs Labs: 10/07/16 05:50 10/07/16 05:50 PT 11.8 Seconds (9.8-13.1) 09/30/16 13:32 INR 1.0 (0.9-1.2) 09/30/16 13:32 - Head Exam Head Exam: ATRAUMATIC - Eye Exam Eye Exam: Normal appearance - ENT Exam ENT Exam: Mucous Membranes Dry - Respiratory Exam Respiratory Exam: NORMAL BREATHING PATTERN - Cardiovascular Exam Cardiovascular Exam: +S1, +S2 - GI/Abdominal Exam GI & Abdominal Exam: Normal Bowel Sounds - Extremities Exam Extremities Exam: Pedal Edema Assessment and Plan (1) Anemia Assessment & Plan: chronic disease, multiple myeloma Status: Chronic (2) Multiple myeloma Assessment & Plan: on single agent dexamethasone mild monoclonal protein detected but well controlled Status: Chronic
[2016-10-07] MEDS: guaiFENesin 200 mg/10 ml Syrup UD PO PRN (12:18)
[2016-10-07 15:36] LABS: 23 KD (IGG) BAND Nonreactive
[2016-10-07] MEDS: Albuterol-Ipratrop 3 mg / 0.5 (3 ml) UD INH PRN ×2 (16:15→22:30)
--- NOTE | 2016-10-07 17:21 | CON ---
DATE: ENDOCRINOLOGY CONSULT LOCATION: [facility]. ROOM: 405. 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 PAST MEDICAL HISTORY: As mentioned above, history of type 2 insulin requiring diabetes on a combination of Levemir given as 15 units subcu at bedtime with Novolog given at 10 units t.i.d. for meals with metformin given at 500 mg t.i.d. History of hypertension and dyslipidemia. History of chronic obstructive lung disease and pulmonary hypertension with previous admission for congestive heart failure. Also prior history of pulmonary embolism, but has been off oral anticoagulation therapy because of frequent falls at home as noted. History of obstructive sleep apnea and has been using a CPAP at home. History of generalized anxiety and depression, and has been on psychotropic medications as noted. History of hypothyroidism, currently using levothyroxine at 125 mcg daily as noted, but has been lowered to 75 in the hospital. History of multiple myelomas with bony lytic lesions and currently on Decadron taken as 20 mg once a week every Wednesday given by her oncologist Dr. Luis Eduardo Vilchis. FAMILY HISTORY: Positive for hypertension and diabetes. SOCIAL HISTORY: The patient has supportive family. No known substance use. REVIEW OF SYSTEMS: As mentioned above admits to generalized body weakness with easy fatigability and tiredness and suboptimal energy level, also with episodic bouts of dizziness and lightheadedness on the day of admission with marked tremulousness and shakiness of both upper and lower extremities. No chest pain, palpitation, and PND, but admits to progressive shortness of breath, especially in insertion. Her oral intake is valuable with nausea, dyspepsia, and vague abdominal pain. Also admits to occasional nocturia. PHYSICAL EXAMINATION: GENERAL: This is an overweight female in no apparent distress. VITAL SIGNS: Blood pressure 150/90, pulse of 70 beats per minute and regular, temperature 98, and respirations 20. Height is 4.10 and weight is 186 pounds. HEENT: Head is normocephalic. Eyes are anicteric with pink conjunctivae. Funduscopy not possible at this time. Ears, nose, and throat otherwise normal. NECK: Supple. Thyroid gland is normal in size. No carotid bruits or cervical adenopathy. CARDIOPULMONARY: Adynamic precordium. S1 and S2 is rapid and regular. LUNGS: Showed scattered rhonchi. ABDOMEN: Obese, soft, and passive bowel sounds. EXTREMITIES: No peripheral edema. Pulses are +2 bilaterally. LABORATORY DATA: Showed serum cortisol level is 1.0 with a TSH of 0.06. Chemistry showed a BUN of 30, sodium 123, potassium 4.1, chloride 88, CO2 26, glucose 147, and creatinine is 0.8. Her glucose levels have ranged from 160 to 185 mg/dL. 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 She remains clinically euadrenal at this time. hypothyroidism on levothyroxine replacement therapy with suppressed TSH indicative of over-replacement as noted. She also has type 2 insulin requiring diabetes with near optimal metabolic control on a basal and bolus insulin regimen as given. PLAN OF MANAGEMENT: I have discussed with the oncologist Dr. Luis Eduardo Liriano, regarding the once weekly Decadron dosage, we will be having a low dose of hydrocortisone 10 mg at bedtime to be given on a daily basis to optimize her metabolic control and also to optimize her adrenal reserve and requirements. We will also repeat the thyroid studies and determine the to needs to adjust dose regimen accordingly. We will also obtain a hemoglobin A1c glycemic control and repeat thyroid function status has been ordered for tomorrow morning. We will obtain serum chemistries and supplement accordingly as needed. We will continue also the basal and bolus insulin regimen with a combination of Levemir and Humalog dosing regimen as kicked in. We will obtain serum chemistry and supplement accordingly as needed. We will follow. Irene Mann MD
--- NOTE | 2016-10-07 18:29 | CARD ---
APPROVED REPORT EKG Measurement Heart [id number] <Conclusion> Normal sinus rhythm Possible Left atrial enlargement Left axis deviation ST & T wave abnormality, consider inferior ischemia ST & T wave abnormality, consider anterolateral ischemia Prolonged QT Abnormal ECG
--- NOTE | 2016-10-07 19:15 | CP.PCM.PN ---
Subjective - Date & Time of Evaluation Date of Evaluation: 10/07/16 Time of Evaluation: 18:30 - Subjective Subjective: patient has less dyspnea. Objective - Vital Signs/Intake and Output Vital Signs (last 24 hours): Temp Pulse Resp BP Pulse Ox 97.8 F 74 20 109/68 98 10/07/16 17:00 10/07/16 17:00 10/07/16 17:00 10/07/16 17:00 10/07/16 17:00 Intake and Output: 10/07/16 10/08/16 18:59 06:59 Intake Total 1350 Output Total 440 Balance 910 - Medications Medications: Current Medications Acetaminophen (Tylenol 325mg Tab) 650 mg PO Q6 PRN PRN Reason: Pain, Mild (1-3) Albuterol/Ipratropium (Duoneb 3 Mg/0.5 Mg (3 Ml) Ud) 3 ml INH RQ4 PRN PRN Reason: Shortness of Breath Last Admin: 10/07/16 16:15 Dose: 3 ml Aspirin (Ecotrin) 81 mg PO DAILY [facility] Last Admin: 10/07/16 08:23 Dose: 81 mg Atorvastatin Calcium (Lipitor) 20 mg PO QPM [facility] Last Admin: 10/07/16 18:30 Dose: 20 mg Benztropine Mesylate (Cogentin) 1 mg PO Q8@0000,0800,1600 [facility] Last Admin: 10/07/16 17:10 Dose: 1 mg Buspirone HCl (Buspar) 10 mg PO BID [facility] Last Admin: 10/07/16 17:10 Dose: 10 mg Clonazepam (Klonopin) 0.5 mg PO HS [facility] Last Admin: 10/06/16 22:35 Dose: 0.5 mg Cyanocobalamin (Vitamin B12 1000 Mcg/Ml Inj) 1,000 mcg IM DAILY [facility] Last Admin: 10/07/16 09:09 Dose: 1,000 mcg Dexamethasone (Decadron) 20 mg PO Mo@0900 [facility] Last Admin: 10/05/16 09:23 Dose: 20 mg Enalapril Maleate (Vasotec) 2.5 mg PO DAILY@0900 [facility] Last Admin: 10/07/16 09:09 Dose: 2.5 mg Enoxaparin Sodium (Lovenox) 40 mg SC DAILY [facility] PRN Reason: Protocol Last Admin: 10/07/16 09:08 Dose: 40 mg Ergocalciferol (Drisdol 50,000 Intl Units Cap) 1 cap PO FR [facility] Last Admin: 10/02/16 18:27 Dose: 1 cap Escitalopram Oxalate (Lexapro) 10 mg PO HS [facility] Last Admin: 10/06/16 22:32 Dose: 10 mg Famotidine (Pepcid) 20 mg PO BID [facility] Last Admin: 10/07/16 17:09 Dose: 20 mg Guaifenesin (Robitussin) 200 mg PO Q6 PRN PRN Reason: Cough Last Admin: 10/07/16 12:18 Dose: 200 mg Home Med (Riociguat [Adempas]) 1 mg PO TID@0900,1300,1700 [facility] Last Admin: 10/07/16 17:09 Dose: 1 mg Hydrocortisone (Cortef) 10 mg PO [facility] Insulin Detemir (Levemir) 12 units SC HS [facility] Last Admin: 10/06/16 22:39 Dose: 12 u Insulin Human Lispro (Humalog) 8 units SC ACTID [facility] Last Admin: 10/07/16 17:10 Dose: 8 units Levothyroxine Sodium (Synthroid) 75 mcg PO DAILY@0630 [facility] Last Admin: 10/07/16 05:53 Dose: 75 mcg Lidocaine (Lidoderm) 1 ea TD DAILY PRN PRN Reason: Pain, moderate (4-7) Last Admin: 10/05/16 09:42 Dose: 1 ea Metformin HCl (Glucophage) 500 mg PO BIDWM [facility] Last Admin: 10/07/16 17:11 Dose: 500 mg - Labs Labs: 10/07/16 05:50 10/07/16 05:50 PT 11.8 Seconds (9.8-13.1) 09/30/16 13:32 INR 1.0 (0.9-1.2) 09/30/16 13:32 - Constitutional Appears: Chronically Ill - Head Exam Head Exam: NORMAL INSPECTION - Eye Exam Eye Exam: Normal appearance - ENT Exam ENT Exam: Mucous Membranes Moist - Neck Exam Neck Exam: Full ROM - Respiratory Exam Respiratory Exam: Decreased Breath Sounds - Cardiovascular Exam Cardiovascular Exam: REGULAR RHYTHM - GI/Abdominal Exam GI & Abdominal Exam: Normal Bowel Sounds - Rectal Exam Rectal Exam: Deferred - Extremities Exam Extremities Exam: Pedal Edema - Back Exam Back Exam: NORMAL INSPECTION - Neurological Exam Neurological Exam: Alert - Psychiatric Exam Psychiatric exam: Normal Affect - Skin Skin Exam: Normal Color Assessment and Plan (1) Polymorphic ventricular tachycardia Assessment & Plan: follow electrolytes. Status: Acute (2) Pulmonary hypertension Assessment & Plan: on Adempas Status: Chronic
[2016-10-07 19:31] LABS: BLOOD UREA NITROGEN 31 mg/dl (7-17); CALCIUM 8.3 mg/dL (8.4-10.2); GFR AFRICAN-AMERICAN > 60; GFR NON-AFRICAN AMERICAN > 60
--- NOTE | 2016-10-07 20:13 | CP.PCM.PN ---
Subjective - Date & Time of Evaluation Date of Evaluation: 10/07/16 Time of Evaluation: 19:10 - Subjective Subjective: pt seen and examined, follow up consult is dictated #[id number] Objective - Vital Signs/Intake and Output Vital Signs (last 24 hours): Temp Pulse Resp BP Pulse Ox 99.9 F H 85 20 138/73 100 10/07/16 19:16 10/07/16 19:16 10/07/16 19:16 10/07/16 19:16 10/07/16 19:16 Intake and Output: 10/07/16 10/08/16 18:59 06:59 Intake Total 1350 Output Total 440 Balance 910 - Medications Medications: Current Medications Acetaminophen (Tylenol 325mg Tab) 650 mg PO Q6 PRN PRN Reason: Pain, Mild (1-3) Albuterol/Ipratropium (Duoneb 3 Mg/0.5 Mg (3 Ml) Ud) 3 ml INH RQ4 PRN PRN Reason: Shortness of Breath Last Admin: 10/07/16 16:15 Dose: 3 ml Aspirin (Ecotrin) 81 mg PO DAILY [facility] Last Admin: 10/07/16 08:23 Dose: 81 mg Atorvastatin Calcium (Lipitor) 20 mg PO QPM [facility] Last Admin: 10/07/16 18:30 Dose: 20 mg Benztropine Mesylate (Cogentin) 1 mg PO Q8@0000,0800,1600 [facility] Last Admin: 10/07/16 17:10 Dose: 1 mg Buspirone HCl (Buspar) 10 mg PO BID [facility] Last Admin: 10/07/16 17:10 Dose: 10 mg Clonazepam (Klonopin) 0.5 mg PO HS [facility] Last Admin: 10/06/16 22:35 Dose: 0.5 mg Cyanocobalamin (Vitamin B12 1000 Mcg/Ml Inj) 1,000 mcg IM DAILY [facility] Last Admin: 10/07/16 09:09 Dose: 1,000 mcg Dexamethasone (Decadron) 20 mg PO Mo@0900 [facility] Last Admin: 10/05/16 09:23 Dose: 20 mg Enalapril Maleate (Vasotec) 2.5 mg PO DAILY@0900 [facility] Last Admin: 10/07/16 09:09 Dose: 2.5 mg Enoxaparin Sodium (Lovenox) 40 mg SC DAILY [facility] PRN Reason: Protocol Last Admin: 10/07/16 09:08 Dose: 40 mg Ergocalciferol (Drisdol 50,000 Intl Units Cap) 1 cap PO FR [facility] Last Admin: 10/02/16 18:27 Dose: 1 cap Escitalopram Oxalate (Lexapro) 10 mg PO HS [facility] Last Admin: 10/06/16 22:32 Dose: 10 mg Famotidine (Pepcid) 20 mg PO BID [facility] Last Admin: 10/07/16 17:09 Dose: 20 mg Guaifenesin (Robitussin) 200 mg PO Q6 PRN PRN Reason: Cough Last Admin: 10/07/16 12:18 Dose: 200 mg Home Med (Riociguat [Adempas]) 1 mg PO TID@0900,1300,1700 [facility] Last Admin: 10/07/16 17:09 Dose: 1 mg Hydrocortisone (Cortef) 10 mg PO HS [facility] Insulin Detemir (Levemir) 12 units SC HS [facility] Last Admin: 10/06/16 22:39 Dose: 12 u Insulin Human Lispro (Humalog) 8 units SC ACTID [facility] Last Admin: 10/07/16 17:10 Dose: 8 units Levothyroxine Sodium (Synthroid) 75 mcg PO DAILY@0630 [facility] Last Admin: 10/07/16 05:53 Dose: 75 mcg Lidocaine (Lidoderm) 1 ea TD DAILY PRN PRN Reason: Pain, moderate (4-7) Last Admin: 10/05/16 09:42 Dose: 1 ea Metformin HCl (Glucophage) 500 mg PO BIDWM [facility] Last Admin: 10/07/16 17:11 Dose: 500 mg - Labs Labs: 10/07/16 05:50 10/07/16 19:10 PT 11.8 Seconds (9.8-13.1) 09/30/16 13:32 INR 1.0 (0.9-1.2) 09/30/16 13:32
[2016-10-07] MEDS: Insulin Detemir 100 Units/ml Inj SC SCH (21:19)
--- NOTE | 2016-10-07 22:03 | PN ---
FOLLOWUP RENAL CONSULTATION DATE: 10/07/2016 The patient is located in room 405, bed 2. REQUESTED BY: Ciara Jane MD CHIEF COMPLAINT: Followup on hyponatremia. SUBJECTIVE: Ms. Perkins is a 70-year-old elderly female with a past medical history significant for type 2 diabetes, hypertension, COPD, sleep apnea, pulmonary hypertension, and PE, off anticoagulation due to fall and multiple myeloma with lytic bone lesions, on Decadron, was admitted with fatigue and involuntary spasm, shaking of her extremities. The patient was on Abilify in the house subsequently . The patient was started on Lexapro on 10/01/2016 and subsequently found to have a hyponatremia with a serum sodium dropped from 140 to 122 and renal consult was requested for evaluation of hyponatremia. The patient was found to have hyponatremia, euvolemic, hypotonic, and suspected SIADH secondary to drugs and cannot rule out thyroid disorder. Lexapro was discontinued and IV fluids was discontinued. Lasix was discontinued. The patient was now found to have a TSH is very, very low and also serum cortisol level is low. Requested endocrinology consult this morning and seen by Dr. Mann and started on steroids. The patient is complaining of mild shortness of breath. No chest pain. No palpitations. No fever. No cough. No abdominal pain. No nausea, vomiting or diarrhea. Complaints of mild swelling of the legs. PHYSICAL EXAMINATION VITAL SIGNS: Blood pressure 138/73, pulse 85, respirations 20, temperature 99.9, saturation 100%. Height 4 feet 10 inches and weight is 186 pounds. GENERAL: Ms. Perkins is a 70-year-old elderly female, obese, not in distress on nasal cannula. HEENT: Pupils are normal and reactive to light and accommodation. Conjunctivae pink. Sclerae anicteric. Tongue is moist. Trachea is midline. LUNGS: Symmetry on both sides, bilateral breath sounds present. Bilateral crackles present right more than the left. CARDIOVASCULAR: [place] at the fifth intercostal space, midclavicular line. S1 and S2 audible. No murmur, no gallop. ABDOMEN: Normal in appearance, soft and tympanitic. No guarding. No rigidity. No hepatosplenomegaly. CENTRAL NERVOUS SYSTEM: The patient is alert, awake and oriented x3. Nonfocal on examination. Cranial nerves II through XII grossly intact. Sensory and motor system is within normal limits. EXTREMITIES: No cyanosis. No clubbing. Trace to 1+ edema in both lower extremities. LABORATORY DATA: Includes as follows. As of 10/07/2016; sodium is 124, potassium 4.2, chloride 89, CO2 of 24, BUN 31, creatinine 0.8, glucose 158, and calcium 8.3. Chem-7 this morning, sodium 123, potassium 4.1, chloride 88, CO2 of 26, BUN 30, creatinine 0.8, glucose 147, and calcium 8.4 and magnesium 1.9. WBC 7.2, hemoglobin 10.6, hematocrit 31.8, platelets 192. CURRENT MEDICATIONS: Include as follows: BuSpar 10 mg p.o. b.i.d., Cogentin 1 mg p.o. q. 8 hours, hydrocortisone 10 mg p.o. at bedtime, Decadron 20 mg p.o. q. weekly, Wednesday, ergocalciferol 1 capsule p.o., DuoNeb inhaler 3 mL q. 4 hours p.r.n., Ecotrin 81 mg daily, metformin 500 mg p.o. b.i.d., Humalog, Klonopin 0.5 mg p.o. at bedtime, Levemir 12 units subcutaneous at bedtime, Lexapro was discontinued, Lidoderm patch, Lovenox, Lipitor 20 mg at bedtime, Pepcid 20 mg b.i.d., levothyroxine 75 mcg p.o. daily, Vasotec 2.5 mg p.o. daily. ASSESSMENT AND PLAN: In summary, Ms. Perkins is a 70-year-old elderly female with history of diabetes type 2, hypertension, chronic obstructive pulmonary disease, obstructive sleep apnea, depression, multiple myeloma, pulmonary embolism, off anticoagulation, was admitted with shaking and shortness of breath and found to have hyponatremia, and renal consult was initially requested for evaluation of hyponatremia. 1. Hyponatremia, most likely secondary to multifactorial, cannot rule out syndrome of inappropriate antidiuretic hormone secondary to drugs, cannot rule out secondary to hyperthyroidism and adrenal insufficiency. No improvement in serum sodium with Tolvaptan 1 dose and Tolvaptan was discontinued after one dose. The patient was started on hydrocortisone 10 mg p.o. at bedtime. We will discontinue IV fluids and get a chest x-ray portable to rule out congestive heart failure versus infiltrate. 2. Hypertension. Blood pressure is stable. 3. Prerenal azotemia. We will repeat and osmolality and urine creatinine in a.m. if serum sodium does not improve tomorrow. We will follow with you. Thank you for allowing me to participate in your patient's care. Radha Gresham MD
[2016-10-08] MEDS: Levothyroxine 75 MCG TAB PO SCH (06:49)
[2016-10-08 07:15] LABS: ALB/GLOB RATIO 1.7 (1.0-2.1); ALBUMIN 3.9 g/dL (3.5-5.0); ALT/SGPT 32 U/L (9-52); AST/SGOT 15 U/L (14-36); BLOOD UREA NITROGEN 30 mg/dl (7-17); CALCIUM 8.6 mg/dL (8.4-10.2); GFR AFRICAN-AMERICAN > 60; GFR NON-AFRICAN AMERICAN > 60; MAGNESIUM 2.4 MG/DL (1.6-2.3)
[2016-10-08 07:26] LABS: T4 6.52 ug/dl (5.5-11.0)
[2016-10-08] MEDS: Insulin Lispro (humaLOG) 100 Units/ml Inj SC SCH ×3 (08:12→17:06)
[2016-10-08] MEDS: Enoxaparin 40 mg Syringe SC SCH (09:22)
[2016-10-08] MEDS: RIOCIGUAT 1 MG PO SCH ×3 (09:24→17:07)
[2016-10-08] MEDS: guaiFENesin 200 mg/10 ml Syrup UD PO PRN ×2 (09:27→22:10)
--- NOTE | 2016-10-08 10:07 | CP.PCM.PN ---
Subjective - Date & Time of Evaluation Date of Evaluation: 10/08/16 Time of Evaluation: 09:30 - Subjective Subjective: No acute events overnight. Patient seen and examined bedside. She slept well, however feels more short of breath today, pedal edema is improving. Tremor slightly improved. Did complain of some dyspepsia this morning, denies vomiting. She states she is having hallucinations, just seeing shadows. Did not mention voices at this time. Will get psych consult today. Chest xray for worsening shortness of breath. Hyponatremia has improved. Objective - Vital Signs/Intake and Output Vital Signs (last 24 hours): Temp Pulse Resp BP Pulse Ox 97.8 F 77 18 123/68 98 10/08/16 08:12 10/08/16 08:12 10/08/16 08:12 10/08/16 08:12 10/08/16 08:12 Intake and Output: 10/08/16 10/08/16 06:59 18:59 Intake Total 300 Balance 300 - Medications Medications: Current Medications Acetaminophen (Tylenol 325mg Tab) 650 mg PO Q6 PRN PRN Reason: Pain, Mild (1-3) Albuterol/Ipratropium (Duoneb 3 Mg/0.5 Mg (3 Ml) Ud) 3 ml INH RQ4 PRN PRN Reason: Shortness of Breath Last Admin: 10/07/16 22:30 Dose: 3 ml Aspirin (Ecotrin) 81 mg PO DAILY [facility] Last Admin: 10/08/16 09:25 Dose: 81 mg Atorvastatin Calcium (Lipitor) 20 mg PO QPM [facility] Last Admin: 10/07/16 18:30 Dose: 20 mg Benztropine Mesylate (Cogentin) 1 mg PO Q8@0000,0800,1600 [facility] Last Admin: 10/08/16 08:14 Dose: 1 mg Buspirone HCl (Buspar) 10 mg PO BID [facility] Last Admin: 10/08/16 09:25 Dose: 10 mg Calcium Carbonate (Oscal) 500 mg PO DAILY [facility] Clonazepam (Klonopin) 0.5 mg PO HS [facility] Last Admin: 10/07/16 21:17 Dose: 0.5 mg Cyanocobalamin (Vitamin B12 1000 Mcg/Ml Inj) 1,000 mcg IM DAILY [facility] Last Admin: 10/08/16 09:24 Dose: 1,000 mcg Dexamethasone (Decadron) 20 mg PO Mo@0900 [facility] Last Admin: 10/05/16 09:23 Dose: 20 mg Enalapril Maleate (Vasotec) 2.5 mg PO DAILY@0900 [facility] Last Admin: 10/08/16 09:24 Dose: 2.5 mg Enoxaparin Sodium (Lovenox) 40 mg SC DAILY [facility] PRN Reason: Protocol Last Admin: 10/08/16 09:22 Dose: 40 mg Ergocalciferol (Drisdol 50,000 Intl Units Cap) 1 cap PO FR [facility] Last Admin: 10/02/16 18:27 Dose: 1 cap Escitalopram Oxalate (Lexapro) 10 mg PO HS [facility] Last Admin: 10/07/16 22:50 Dose: 10 mg Famotidine (Pepcid) 20 mg PO BID [facility] Last Admin: 10/08/16 09:22 Dose: 20 mg Guaifenesin (Robitussin) 200 mg PO Q6 PRN PRN Reason: Cough Last Admin: 10/08/16 09:27 Dose: 200 mg Home Med (Riociguat [Adempas]) 1 mg PO TID@0900,1300,1700 [facility] Last Admin: 10/08/16 09:24 Dose: 1 mg Hydrocortisone (Cortef) 10 mg PO HS [facility] Last Admin: 10/07/16 21:18 Dose: 10 mg Insulin Detemir (Levemir) 12 units SC HS [facility] Last Admin: 10/07/16 21:19 Dose: 12 u Insulin Human Lispro (Humalog) 8 units SC ACTID [facility] Last Admin: 10/08/16 08:12 Dose: 8 units Levothyroxine Sodium (Synthroid) 75 mcg PO DAILY@0630 [facility] Last Admin: 10/08/16 06:49 Dose: 75 mcg Lidocaine (Lidoderm) 1 ea TD DAILY PRN PRN Reason: Pain, moderate (4-7) Last Admin: 10/05/16 09:42 Dose: 1 ea Metformin HCl (Glucophage) 500 mg PO BIDWM [facility] Last Admin: 10/08/16 08:12 Dose: 500 mg - Labs Labs: 10/07/16 05:50 10/08/16 05:30 PT 11.8 Seconds (9.8-13.1) 09/30/16 13:32 INR 1.0 (0.9-1.2) 09/30/16 13:32 - Constitutional Appears: Other (wearing NC, no respiratory distress, tremor noted in LUE.) - Eye Exam Eye Exam: EOMI, Normal appearance, PERRL - ENT Exam ENT Exam: Mucous Membranes Moist - Neck Exam Neck Exam: Full ROM, Normal Inspection - Respiratory Exam Respiratory Exam: Rales (bilateral lung bases to mid lung). absent: Accessory Muscle Use, Wheezes, Respiratory Distress - Cardiovascular Exam Cardiovascular Exam: REGULAR RHYTHM, +S1, +S2 - GI/Abdominal Exam GI & Abdominal Exam: Soft, Tenderness (midepigastric), Normal Bowel Sounds. absent: Distended, Guarding - Rectal Exam Rectal Exam: Deferred - Extremities Exam Extremities Exam: absent: Pedal Edema - Neurological Exam Neurological Exam: Alert, Awake, CN II-XII Intact - Skin Skin Exam: Dry, Intact, Pallor Assessment and Plan (1) Hyponatremia Status: Acute (2) Dyspnea Status: Acute (3) Hallucination Status: Acute (4) Abnormal involuntary movements Status: Acute (5) HTN (hypertension) Status: Chronic (6) Insulin dependent diabetes mellitus Status: Chronic (7) Multiple myeloma Status: Chronic (8) Anemia Status: Chronic (9) Depression Status: Chronic (10) Sleep apnea Status: Chronic (11) DVT prophylaxis Status: Acute - Assessment and Plan (Free Text) Assessment: 70 yr old F admitted for worsening SOB and whole body/extremity tremors at rest that are slightly improving, hyponatremia is improving.. Now admits to having hallucinations. Psych consult today, recommendations appreciated. Dyspnea is worse today, will get CXR. Magnesium and potassium level is within appropriate range. As per cardio, will keep Mag level >2.0 , K+>4.0. Workup for Adrenal insufficiency and consult Dr. Mann (endocrinology) for further recommendations. Plan: Hyponatremia -improving, Na+:130, possibly secondary to adrenal insufficiency,work up done. patient started on hydrocortisone 10mg PO qHS -endocrine consult appreciated, Dr. Mann -Nephrology is following, recommendations appreciated -repeat cortisol 11. Dyspnea -multifactorial, has COPD, severe pulmonary hypertension and CHF -continues to have dyspnea today, +crackles, possible she needs daily lasix or other diuretic medication in conjunction with water restriction, will d/w attending -severe pulm htn: Adempas (Riociguat) 1mg PO TID -chf with preserved EF: Echo: LVEF 65-70%, right ventricular systolic pressure ~ 78mmHg compatible with severe pulmonary HTN -COPD: stable on o2, duonebs q6 prn Abnormal involuntary movements -not improved, possibly drug related but given patients hallucinations, will restart abilify. -Neurology consulted: Cogentin 1mg PO TID Insulin dependent diabetes mellitus type 2 -improved with current regimen, will monitor and adjust accordingly -Last HgbA1c: 8.2% on 10/08/16 -Continue home meds: Metformin 500mg PO BID, Adjusted 10/05: Levemir 12 units SC HS, Humalog 8 units SC ACTID -Hypoglycemia protocol HTN -controlled, chronic -continue home med: Enalapril 2.5mg PO daily Multiple Myeloma/Anemia -stable, chronic -heme/onc consult: Dr Vilchis, (sees her as outpt) -On single agent Dexamethasone 20mg PO once weekly (on mondays) -b12 im daily Hypothyroidism -Endocrinology is following: Dr. Mann -TSH repeat was 0.06-->0.09 -Levothyroxine dose lowered to 75mcg Depression -appreciate psych recommendations, will restart abilify, continue lexapro. Klonopin taper. -continue with home meds (Buspirone 10mg PO BID, Klonopin 0.5mg PO QHS, Lexapro 20mg PO QD) Sleep apnea -uses CPAP qhs DVT/GI prophylaxis -Lovenox 40mg SC QD -Pepcid 20mg PO BID
--- NOTE | 2016-10-08 10:28 | CP.PCM.CON ---
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 CC: "I'm having problems with my memory" HPI: 70 yo female with PMH of HTN, IDDM type 2, Hypothyroidism, COPD (on home O2 ), Diastolic CHF grade 1, Pulmonary HTN, Sleep apnea, Multiple myeloma, PE presents for evaluation of 1 week of increased sob and restless movement. Patient was found to be hyponatremic, Lexapro was temporarily stopped and then restarted. Patient reports that she has a history of mood fluctuations, anxiety , depression, but currently feels stable. She does report auditory (hears people talking but then turns around and no one is present) and visual hallucinations (shadows) x 3 days. She was unable to give an accurate psychiatric history and reports that she has memory deficits. Abilify previously stopped due to concerns of EPS, but this did not stop tremors. PMD: Dr David Neumann PMHx: HTN, IDDM type 2, Hypothyroidism, COPD (on home O2), Diastolic CHF grade 1 , Pulmonary HTN, Sleep apnea, Multiple myeloma, PE PPHx: History of 3 previous hospitalizations, she was not able to give me a precise diagnosis but seems like MDD vs bipolar disorder per history. H/o suicide attempt >45 year ago. [employer] Chase Leonard is outpatient tx provider. ALL: Codeine FHx: Denies family h/o mental illness SHx: Lives alone. Daughter is HUMAN RESOURCES VICE PRESIDENT. MSE: Calm/cooperative, no acute distress, psychomotor delayed due to medical issues, speech soft, mood "okay", affect- broad/calm, thought process- coherent , thought content- no delusions, recent AH + VH, but denies current; fair I/J, NO SI/HI, good impulse control Impression: 70 yo female with PMH of HTN, IDDM type 2, Hypothyroidism, COPD (on home O2), Diastolic CHF grade 1, Pulmonary HTN, Sleep apnea, Multiple myeloma, PE w/ MDD w/ psychosis vs bipolar disorder, rule out dementia, now starting to have hallucinations again following the discontinuation of her antipsychotic. -Resume Abilify 5 mg PO Daily; Abilify unlikley to be causing reported tremors and at this point this point the patient has started hallucinating again -Continue Buspar, Lexapro at current doses as patient has been psychiatrically stable on these medications -Continued outpatient follow-up w/ Chase Leonard -Recommend to taper and stop Klonopin as it can worsen confusion and memory Past Patient History - Infectious Disease Hx of Infectious Diseases: None - Tetanus Immunizations Tetanus Immunization: Unknown - Past Medical History & Family History Past Medical History?: Yes - Past Social History Smoking Status: Never Smoked Chewing Tobacco Use: No Cigar Use: No Alcohol: None Drugs: Denies - CARDIAC Hx Cardiac Disorders: Yes Hx Congestive Heart Failure: Yes Hx Hypercholesterolemia: Yes Hx Hypertension: Yes - PULMONARY Hx Asthma: Yes Hx Chronic Obstructive Pulmonary Disease (COPD): Yes Hx Emphysema: Yes Hx Pneumonia: Yes Hx Pulmonary Embolism: Yes Hx Sleep Apnea: Yes - NEUROLOGICAL Hx Migraine: Yes - HEENT Hx HEENT Problems: Yes Other/Comment: Uses Glasses - RENAL Hx Chronic Kidney Disease: No - ENDOCRINE/METABOLIC Hx Hypothyroidism: Yes - HEMATOLOGICAL/ONCOLOGICAL Hx Anemia: Yes Hx Human Immunodeficiency Virus (HIV): No - INTEGUMENTARY Hx Dermatological Problems: No - MUSCULOSKELETAL/RHEUMATOLOGICAL Hx Arthritis: Yes Hx Fractures: Yes Hx Rheumatoid Arthritis: Yes - GASTROINTESTINAL Hx Gastrointestinal Disorders: No - GENITOURINARY/GYNECOLOGICAL Hx Genitourinary Disorders: Yes Hx Incontinence: Yes Other/Comment: Urinary frequency - PSYCHIATRIC Hx Anxiety: Yes Hx Depression: Yes - SURGICAL HISTORY Hx Cholecystectomy: Yes Hx Tonsillectomy: Yes - ANESTHESIA Hx Anesthesia: Yes Hx Anesthesia Reactions: Yes (Resp. Distress) Meds Allergies/Adverse Reactions: Allergies Allergy/AdvReac Type Severity Reaction Status Date / Time codeine AdvReac syncope, Verified 12/02/15 10:13 diaphoresis - Medications Medications: Current Medications Acetaminophen (Tylenol 325mg Tab) 650 mg PO Q6 PRN PRN Reason: Pain, Mild (1-3) Albuterol/Ipratropium (Duoneb 3 Mg/0.5 Mg (3 Ml) Ud) 3 ml INH RQ4 PRN PRN Reason: Shortness of Breath Last Admin: 10/07/16 22:30 Dose: 3 ml Aspirin (Ecotrin) 81 mg PO DAILY [facility] Last Admin: 10/08/16 09:25 Dose: 81 mg Atorvastatin Calcium (Lipitor) 20 mg PO QPM [facility] Last Admin: 10/07/16 18:30 Dose: 20 mg Benztropine Mesylate (Cogentin) 1 mg PO Q8@0000,0800,1600 [facility] Last Admin: 10/08/16 08:14 Dose: 1 mg Buspirone HCl (Buspar) 10 mg PO BID [facility] Last Admin: 10/08/16 09:25 Dose: 10 mg Calcium Carbonate (Oscal) 500 mg PO DAILY [facility] Clonazepam (Klonopin) 0.5 mg PO HS [facility] Last Admin: 10/07/16 21:17 Dose: 0.5 mg Cyanocobalamin (Vitamin B12 1000 Mcg/Ml Inj) 1,000 mcg IM DAILY [facility] Last Admin: 10/08/16 09:24 Dose: 1,000 mcg Dexamethasone (Decadron) 20 mg PO Mo@0900 [facility] Last Admin: 10/05/16 09:23 Dose: 20 mg Enalapril Maleate (Vasotec) 2.5 mg PO DAILY@0900 [facility] Last Admin: 10/08/16 09:24 Dose: 2.5 mg Enoxaparin Sodium (Lovenox) 40 mg SC DAILY [facility] PRN Reason: Protocol Last Admin: 10/08/16 09:22 Dose: 40 mg Ergocalciferol (Drisdol 50,000 Intl Units Cap) 1 cap PO FR [facility] Last Admin: 10/02/16 18:27 Dose: 1 cap Escitalopram Oxalate (Lexapro) 10 mg PO HS [facility] Last Admin: 10/07/16 22:50 Dose: 10 mg Famotidine (Pepcid) 20 mg PO BID [facility] Last Admin: 10/08/16 09:22 Dose: 20 mg Guaifenesin (Robitussin) 200 mg PO Q6 PRN PRN Reason: Cough Last Admin: 10/08/16 09:27 Dose: 200 mg Home Med (Riociguat [Adempas]) 1 mg PO TID@0900,1300,1700 [facility] Last Admin: 10/08/16 09:24 Dose: 1 mg Hydrocortisone (Cortef) 10 mg PO HS [facility] Last Admin: 10/07/16 21:18 Dose: 10 mg Insulin Detemir (Levemir) 12 units SC HS [facility] Last Admin: 10/07/16 21:19 Dose: 12 u Insulin Human Lispro (Humalog) 8 units SC ACTID [facility] Last Admin: 10/08/16 08:12 Dose: 8 units Levothyroxine Sodium (Synthroid) 75 mcg PO DAILY@0630 [facility] Last Admin: 10/08/16 06:49 Dose: 75 mcg Lidocaine (Lidoderm) 1 ea TD DAILY PRN PRN Reason: Pain, moderate (4-7) Last Admin: 10/05/16 09:42 Dose: 1 ea Metformin HCl (Glucophage) 500 mg PO BIDWM [facility] Last Admin: 10/08/16 08:12 Dose: 500 mg Results - Vital Signs Recent Vital Signs: Last Vital Signs Temp 97.8 F 10/08/16 08:12 Pulse 77 10/08/16 08:12 Resp 18 10/08/16 08:12 BP 123/68 10/08/16 08:12 Pulse Ox 98 10/08/16 08:12 - Labs Result Diagrams: 10/07/16 05:50 10/08/16 05:30 Labs: Laboratory Results - last 24 hr 10/01/16 10/05/16 10/07/16 06:00 20:45 11:50 Sodium Potassium Chloride Carbon Dioxide Anion Gap BUN Creatinine Est GFR ( Amer) Est GFR (Non-Af Amer) POC Glucose (mg/dL) 185 H Random Glucose Calcium Magnesium Total Bilirubin AST ALT Alkaline Phosphatase Total Protein Albumin Globulin Albumin/Globulin Ratio Free T4 Thyroxine (T4) TSH 3rd Generation Urine Immunofixation Not detected Lyme IgG 18 kDa Band Nonreactive Lyme IgG 23 kDa Band Nonreactive Lyme IgG 28 kDa Band Nonreactive Lyme IgG 30 kDa Band Nonreactive Lyme IgG 39 kDa Band Nonreactive Lyme IgG 41 kDa Band Nonreactive Lyme IgG 45 kDa Band Nonreactive Lyme IgG 58 kDa Band Nonreactive Lyme IgG 66 kDa Band Nonreactive Lyme IgG 93 kDa Band Nonreactive Lyme IgG W Blot Interp Negative Lyme IgM 23 kDa Band Nonreactive Lyme IgM 39 kDa Band Nonreactive Lyme IgM 41 kDa Band Nonreactive Lyme IgM W Blot Interp Negative 10/07/16 10/07/16 10/07/16 16:03 19:10 20:54 Sodium 124 L Potassium 4.2 Chloride 89 L Carbon Dioxide 24 Anion Gap 15 BUN 31 H Creatinine 0.8 Est GFR ( Amer) > 60 Est GFR (Non-Af Amer) > 60 POC Glucose (mg/dL) 110 132 H Random Glucose 158 H Calcium 8.3 L Magnesium Total Bilirubin AST ALT Alkaline Phosphatase Total Protein Albumin Globulin Albumin/Globulin Ratio Free T4 Thyroxine (T4) TSH 3rd Generation Urine Immunofixation Lyme IgG 18 kDa Band Lyme IgG 23 kDa Band Lyme IgG 28 kDa Band Lyme IgG 30 kDa Band Lyme IgG 39 kDa Band Lyme IgG 41 kDa Band Lyme IgG 45 kDa Band Lyme IgG 58 kDa Band Lyme IgG 66 kDa Band Lyme IgG 93 kDa Band Lyme IgG W Blot Interp Lyme IgM 23 kDa Band Lyme IgM 39 kDa Band Lyme IgM 41 kDa Band Lyme IgM W Blot Interp 10/08/16 10/08/16 10/08/16 05:30 05:30 05:36 Sodium 130 L Potassium 4.7 Chloride 95 L Carbon Dioxide 26 Anion Gap 14 BUN 30 H Creatinine 0.8 Est GFR ( Amer) > 60 Est GFR (Non-Af Amer) > 60 POC Glucose (mg/dL) 165 H Random Glucose 153 H Calcium 8.6 Magnesium 2.4 H Total Bilirubin 0.3 AST 15 ALT 32 Alkaline Phosphatase 71 Total Protein 6.1 L Albumin 3.9 Globulin 2.2 Albumin/Globulin Ratio 1.7 Free T4 1.14 Thyroxine (T4) 6.52 TSH 3rd Generation 0.09 L Urine Immunofixation Lyme IgG 18 kDa Band Lyme IgG 23 kDa Band Lyme IgG 28 kDa Band Lyme IgG 30 kDa Band Lyme IgG 39 kDa Band Lyme IgG 41 kDa Band Lyme IgG 45 kDa Band Lyme IgG 58 kDa Band Lyme IgG 66 kDa Band Lyme IgG 93 kDa Band Lyme IgG W Blot Interp Lyme IgM 23 kDa Band Lyme IgM 39 kDa Band Lyme IgM 41 kDa Band Lyme IgM W Blot Interp
[2016-10-08] MEDS: Lidocaine 5% Patch TD PRN (12:21)
--- NOTE | 2016-10-08 13:15 | CP.PCM.PN ---
Subjective - Date & Time of Evaluation Date of Evaluation: 10/08/16 Time of Evaluation: 12:05 - Subjective Subjective: Has some back pain Spoke to Dr. Mann about concern for adrenal insufficiency; okay to change steroid dosing as required. Objective - Vital Signs/Intake and Output Vital Signs (last 24 hours): Temp Pulse Resp BP Pulse Ox 98.1 F 76 18 117/71 97 10/08/16 12:15 10/08/16 12:15 10/08/16 12:15 10/08/16 12:20 10/08/16 12:15 Intake and Output: 10/08/16 10/08/16 06:59 18:59 Intake Total 300 Balance 300 - Medications Medications: Current Medications Acetaminophen (Tylenol 325mg Tab) 650 mg PO Q6 PRN PRN Reason: Pain, Mild (1-3) Albuterol/Ipratropium (Duoneb 3 Mg/0.5 Mg (3 Ml) Ud) 3 ml INH RQ4 PRN PRN Reason: Shortness of Breath Last Admin: 10/07/16 22:30 Dose: 3 ml Aripiprazole (Abilify) 5 mg PO DAILY [facility] Aspirin (Ecotrin) 81 mg PO DAILY [facility] Last Admin: 10/08/16 09:25 Dose: 81 mg Atorvastatin Calcium (Lipitor) 20 mg PO QPM [facility] Last Admin: 10/07/16 18:30 Dose: 20 mg Benztropine Mesylate (Cogentin) 1 mg PO Q8@0000,0800,1600 [facility] Last Admin: 10/08/16 08:14 Dose: 1 mg Buspirone HCl (Buspar) 10 mg PO BID [facility] Last Admin: 10/08/16 09:25 Dose: 10 mg Calcium Carbonate (Oscal) 500 mg PO DAILY [facility] Clonazepam (Klonopin) 0.5 mg PO HS [facility] Last Admin: 10/07/16 21:17 Dose: 0.5 mg Cyanocobalamin (Vitamin B12 1000 Mcg/Ml Inj) 1,000 mcg IM DAILY [facility] Last Admin: 10/08/16 09:24 Dose: 1,000 mcg Dexamethasone (Decadron) 20 mg PO Mo@0900 [facility] Last Admin: 10/05/16 09:23 Dose: 20 mg Enalapril Maleate (Vasotec) 2.5 mg PO DAILY@0900 [facility] Last Admin: 10/08/16 09:24 Dose: 2.5 mg Ergocalciferol (Drisdol 50,000 Intl Units Cap) 1 cap PO FR [facility] Last Admin: 10/02/16 18:27 Dose: 1 cap Escitalopram Oxalate (Lexapro) 10 mg PO [facility] Last Admin: 10/07/16 22:50 Dose: 10 mg Famotidine (Pepcid) 20 mg PO BID [facility] Last Admin: 10/08/16 09:22 Dose: 20 mg Guaifenesin (Robitussin) 200 mg PO Q6 PRN PRN Reason: Cough Last Admin: 10/08/16 09:27 Dose: 200 mg Home Med (Riociguat [Adempas]) 1 mg PO TID@0900,1300,1700 [facility] Last Admin: 10/08/16 12:23 Dose: 1 mg Hydrocortisone (Cortef) 10 mg PO [facility] Last Admin: 10/07/16 21:18 Dose: 10 mg Insulin Detemir (Levemir) 12 units SC [facility] Last Admin: 10/07/16 21:19 Dose: 12 u Insulin Human Lispro (Humalog) 8 units SC ACTID [facility] Last Admin: 10/08/16 12:21 Dose: 8 units Levothyroxine Sodium (Synthroid) 75 mcg PO DAILY@0630 [facility] Last Admin: 10/08/16 06:49 Dose: 75 mcg Lidocaine (Lidoderm) 1 ea TD DAILY PRN PRN Reason: Pain, moderate (4-7) Last Admin: 10/08/16 12:21 Dose: 1 ea Metformin HCl (Glucophage) 500 mg PO BIDWM [facility] Last Admin: 10/08/16 08:12 Dose: 500 mg - Labs Labs: 10/07/16 05:50 10/08/16 05:30 PT 11.8 Seconds (9.8-13.1) 09/30/16 13:32 INR 1.0 (0.9-1.2) 09/30/16 13:32 - Head Exam Head Exam: ATRAUMATIC - Eye Exam Eye Exam: Normal appearance - ENT Exam ENT Exam: Mucous Membranes Dry - Respiratory Exam Respiratory Exam: NORMAL BREATHING PATTERN - Cardiovascular Exam Cardiovascular Exam: +S1, +S2 - GI/Abdominal Exam GI & Abdominal Exam: Normal Bowel Sounds Assessment and Plan (1) Anemia Assessment & Plan: chronic disease, multiple myeloma Status: Chronic (2) Multiple myeloma Assessment & Plan: controlled with single agent steroids Status: Chronic
[2016-10-08 13:31] LABS: CORTISOL AM 11.1 ug/dL (4.46-22.7)
--- NOTE | 2016-10-08 13:50 | RAD ---
HISTORY: sob, r/o chf r/o infiltrates Technique: Single view portable semi erect @ 20:50. COMPARISON: 09/30/2016. FINDINGS: LUNGS: Improved pulmonary vascular congestion. PLEURA: No significant pleural effusion identified, no pneumothorax apparent. CARDIOVASCULAR: Cardiomegaly. No evidence of acute, significant cardiovascular disease. OSSEOUS STRUCTURES: No significant abnormalities. VISUALIZED UPPER ABDOMEN: Normal. OTHER FINDINGS: None. IMPRESSION: No active disease.
--- NOTE | 2016-10-08 14:31 | RAD ---
HISTORY: SOB, crackles COMPARISON: October 07, 2016. TECHNIQUE: Chest PA and lateral FINDINGS: LUNGS: No active pulmonary disease. PLEURA: No significant pleural effusion identified. No pneumothorax apparent. CARDIOVASCULAR: No radiographic findings to suggest acute or significant cardiovascular disease. OSSEOUS STRUCTURES: No significant abnormalities. VISUALIZED UPPER ABDOMEN: Normal. OTHER FINDINGS: None. IMPRESSION: No active disease. No significant interval change compared to the prior examination(s).
--- NOTE | 2016-10-08 15:16 | PN ---
This is a 70-year-old female with known history of type 2 insulin requiring diabetes and also concomitant multiple myeloma on an once weekly Decadron regimen and is now being follow through metabolic management. She was also referred for management of hyponatremia and received a stat dose of tolvaptan as given. She also has significant history of hypothyroidism with over replacement. They have adjusted her dosing regimen and lowered the Synthroid down to 75 mcg daily from 125 was given on the outpatient. She remains clinically euthyroid at this time and also clinically uadrenal. However, chemically there is evidence of overt secondary hypoadrenalism or adrenal insufficiency related to the steroid dose regimen as given. Her latest chemistry showed a BUN of 30, sodium 130, potassium 4.7, chloride 95, CO2 26, glucose 153 and creatinine 0.8. Her hemoglobin A1c is 8.2 percent, which is really suboptimal in terms of her outpatient insulin regimen as given. Her glucose values have ranged from 143 to 165 mg/dL. The latest chemistries showed a BUN of 30, sodium 130, potassium 4.7, chloride 95, CO2 is 26, glucose 153 and creatinine 0.8. So at this time, we will continue the bedtime hydrocortisone given 10 mg p.o. at bedtime daily, which was started last night and we will observe her metabolic and biochemical response thereof. This plan of care was discussed with oncologist, Dr. Luis Eduardo Vilchis yesterday as noted. We will also continue the lower dosing of the levothyroxine therapy as given and observe her metabolic response also in terms of TSH suppression which can remain quiet suppressed for a few month and this should become clinically and biochemically euthyroid. Continue her basal and bolus insulin regimen as given, but we will modify the Levemir 14 units at bedtime daily as ordered. We will obtain serial chemistry and supplement accordingly as needed. Irene Mann MD
--- NOTE | 2016-10-08 19:25 | CP.PCM.PN ---
Subjective - Date & Time of Evaluation Date of Evaluation: 10/08/16 Time of Evaluation: 19:00 - Subjective Subjective: patient has no new complaints. Objective - Vital Signs/Intake and Output Vital Signs (last 24 hours): Temp Pulse Resp BP Pulse Ox 97.6 F 77 20 108/68 100 10/08/16 17:00 10/08/16 17:00 10/08/16 17:00 10/08/16 17:00 10/08/16 17:00 Intake and Output: 10/08/16 10/09/16 18:59 06:59 Intake Total 740 Output Total 640 Balance 100 - Medications Medications: Current Medications Acetaminophen (Tylenol 325mg Tab) 650 mg PO Q6 PRN PRN Reason: Pain, Mild (1-3) Albuterol/Ipratropium (Duoneb 3 Mg/0.5 Mg (3 Ml) Ud) 3 ml INH RQ4 PRN PRN Reason: Shortness of Breath Last Admin: 10/07/16 22:30 Dose: 3 ml Aripiprazole (Abilify) 5 mg PO DAILY [facility] Last Admin: 10/08/16 17:06 Dose: 5 mg Aspirin (Ecotrin) 81 mg PO DAILY [facility] Last Admin: 10/08/16 09:25 Dose: 81 mg Atorvastatin Calcium (Lipitor) 20 mg PO QPM [facility] Last Admin: 10/08/16 17:08 Dose: 20 mg Benztropine Mesylate (Cogentin) 1 mg PO Q8@0000,0800,1600 [facility] Last Admin: 10/08/16 17:07 Dose: 1 mg Buspirone HCl (Buspar) 10 mg PO BID [facility] Last Admin: 10/08/16 17:08 Dose: 10 mg Calcium Carbonate (Oscal) 500 mg PO DAILY [facility] Clonazepam (Klonopin) 0.5 mg PO HS [facility] Cyanocobalamin (Vitamin B12 1000 Mcg/Ml Inj) 1,000 mcg IM DAILY [facility] Last Admin: 10/08/16 09:24 Dose: 1,000 mcg Dexamethasone (Decadron) 20 mg PO Mo@0900 [facility] Last Admin: 10/05/16 09:23 Dose: 20 mg Enalapril Maleate (Vasotec) 2.5 mg PO DAILY@0900 [facility] Last Admin: 10/08/16 09:24 Dose: 2.5 mg Ergocalciferol (Drisdol 50,000 Intl Units Cap) 1 cap PO FR [facility] Last Admin: 10/02/16 18:27 Dose: 1 cap Escitalopram Oxalate (Lexapro) 10 mg PO HS [facility] Last Admin: 10/07/16 22:50 Dose: 10 mg Famotidine (Pepcid) 20 mg PO BID [facility] Last Admin: 10/08/16 17:07 Dose: 20 mg Guaifenesin (Robitussin) 200 mg PO Q6 PRN PRN Reason: Cough Last Admin: 10/08/16 09:27 Dose: 200 mg Home Med (Riociguat [Adempas]) 1 mg PO TID@0900,1300,1700 [facility] Last Admin: 10/08/16 17:07 Dose: 1 mg Hydrocortisone (Cortef) 10 mg PO HS [facility] Last Admin: 10/07/16 21:18 Dose: 10 mg Insulin Detemir (Levemir) 12 units SC HS [facility] Last Admin: 10/07/16 21:19 Dose: 12 u Insulin Human Lispro (Humalog) 8 units SC ACTID [facility] Last Admin: 10/08/16 17:06 Dose: 8 units Levothyroxine Sodium (Synthroid) 75 mcg PO DAILY@0630 [facility] Last Admin: 10/08/16 06:49 Dose: 75 mcg Lidocaine (Lidoderm) 1 ea TD DAILY PRN PRN Reason: Pain, moderate (4-7) Last Admin: 10/08/16 12:21 Dose: 1 ea Metformin HCl (Glucophage) 500 mg PO BIDWM [facility] Last Admin: 10/08/16 17:06 Dose: 500 mg - Labs Labs: 10/07/16 05:50 10/08/16 05:30 PT 11.8 Seconds (9.8-13.1) 09/30/16 13:32 INR 1.0 (0.9-1.2) 09/30/16 13:32 - Constitutional Appears: Non-toxic - Head Exam Head Exam: NORMAL INSPECTION - ENT Exam ENT Exam: Normal Exam - Neck Exam Neck Exam: Full ROM - Respiratory Exam Respiratory Exam: Decreased Breath Sounds - Cardiovascular Exam Cardiovascular Exam: REGULAR RHYTHM - GI/Abdominal Exam GI & Abdominal Exam: Normal Bowel Sounds - Rectal Exam Rectal Exam: Deferred - Extremities Exam Extremities Exam: Pedal Edema - Back Exam Back Exam: NORMAL INSPECTION - Neurological Exam Neurological Exam: Alert - Psychiatric Exam Psychiatric exam: Normal Affect - Skin Skin Exam: Normal Color Assessment and Plan (1) Polymorphic ventricular tachycardia Assessment & Plan: no further arrhythmia. Keep >4, Mag >2 Status: Acute (2) Pulmonary hypertension Status: Chronic
[2016-10-08] MEDS: Insulin Detemir 100 Units/ml Inj SC SCH (22:11)
[2016-10-09] MEDS: Levothyroxine 75 MCG TAB PO SCH (06:02)
[2016-10-09 06:15] LABS: BLOOD UREA NITROGEN 34 mg/dl (7-17); CALCIUM 9.1 mg/dL (8.4-10.2); GFR AFRICAN-AMERICAN > 60; GFR NON-AFRICAN AMERICAN > 60
--- NOTE | 2016-10-09 07:07 | CP.PCM.PN ---
Subjective - Date & Time of Evaluation Date of Evaluation: 10/09/16 Time of Evaluation: 07:30 - Subjective Subjective: No acute events overnight. Patient seen and examined in chair. Sitting upright in chair, no acute distress , breathing comfortably with O2 NC. Reports improvement of dyspnea today, no swelling of lower extremities. She states she is ready to start physical therapy and wants to go to TCU. No tremor noted today. Her sodium level has normalized. Good response to hydrocortisone. She was restarted on abilify yesterday, denies hallucinations this morning. Objective - Vital Signs/Intake and Output Vital Signs (last 24 hours): Temp Pulse Resp BP Pulse Ox 97.6 F 69 20 113/63 100 10/09/16 04:47 10/09/16 04:47 10/09/16 04:47 10/09/16 04:47 10/09/16 04:47 Intake and Output: 10/09/16 10/09/16 06:59 18:59 Intake Total 400 Balance 400 - Medications Medications: Current Medications Acetaminophen (Tylenol 325mg Tab) 650 mg PO Q6 PRN PRN Reason: Pain, Mild (1-3) Albuterol/Ipratropium (Duoneb 3 Mg/0.5 Mg (3 Ml) Ud) 3 ml INH RQ4 PRN PRN Reason: Shortness of Breath Last Admin: 10/07/16 22:30 Dose: 3 ml Aripiprazole (Abilify) 5 mg PO DAILY [facility] Last Admin: 10/08/16 17:06 Dose: 5 mg Aspirin (Ecotrin) 81 mg PO DAILY [facility] Last Admin: 10/08/16 09:25 Dose: 81 mg Atorvastatin Calcium (Lipitor) 20 mg PO QPM [facility] Last Admin: 10/08/16 17:08 Dose: 20 mg Benztropine Mesylate (Cogentin) 1 mg PO Q8@0000,0800,1600 [facility] Last Admin: 10/08/16 23:02 Dose: 1 mg Buspirone HCl (Buspar) 10 mg PO BID [facility] Last Admin: 10/08/16 17:08 Dose: 10 mg Calcium Carbonate (Oscal) 500 mg PO DAILY [facility] Clonazepam (Klonopin) 0.5 mg PO HS [facility] Last Admin: 10/08/16 22:07 Dose: 0.5 mg Cyanocobalamin (Vitamin B12 1000 Mcg/Ml Inj) 1,000 mcg IM DAILY [facility] Last Admin: 10/08/16 09:24 Dose: 1,000 mcg Dexamethasone (Decadron) 20 mg PO Mo@0900 [facility] Last Admin: 10/05/16 09:23 Dose: 20 mg Enalapril Maleate (Vasotec) 2.5 mg PO DAILY@0900 [facility] Last Admin: 10/08/16 09:24 Dose: 2.5 mg Ergocalciferol (Drisdol 50,000 Intl Units Cap) 1 cap PO FR [facility] Last Admin: 10/02/16 18:27 Dose: 1 cap Escitalopram Oxalate (Lexapro) 10 mg PO HS [facility] Last Admin: 10/08/16 22:07 Dose: 10 mg Famotidine (Pepcid) 20 mg PO BID [facility] Last Admin: 10/08/16 17:07 Dose: 20 mg Guaifenesin (Robitussin) 200 mg PO Q6 PRN PRN Reason: Cough Last Admin: 10/08/16 22:10 Dose: 200 mg Home Med (Riociguat [Adempas]) 1 mg PO TID@0900,1300,1700 [facility] Last Admin: 10/08/16 17:07 Dose: 1 mg Hydrocortisone (Cortef) 10 mg PO HS [facility] Last Admin: 10/08/16 22:08 Dose: 10 mg Insulin Detemir (Levemir) 12 units SC HS [facility] Last Admin: 10/08/16 22:11 Dose: 12 u Insulin Human Lispro (Humalog) 8 units SC ACTID [facility] Last Admin: 10/08/16 17:06 Dose: 8 units Levothyroxine Sodium (Synthroid) 75 mcg PO DAILY@0630 [facility] Last Admin: 10/09/16 06:02 Dose: 75 mcg Lidocaine (Lidoderm) 1 ea TD DAILY PRN PRN Reason: Pain, moderate (4-7) Last Admin: 10/08/16 12:21 Dose: 1 ea Metformin HCl (Glucophage) 500 mg PO BIDWM [facility] Last Admin: 10/08/16 17:06 Dose: 500 mg - Labs Labs: 10/07/16 05:50 10/09/16 05:45 PT 11.8 Seconds (9.8-13.1) 09/30/16 13:32 INR 1.0 (0.9-1.2) 09/30/16 13:32 - Constitutional Appears: No Acute Distress - Head Exam Head Exam: ATRAUMATIC, NORMAL INSPECTION, NORMOCEPHALIC - Eye Exam Eye Exam: EOMI, Normal appearance - ENT Exam ENT Exam: Mucous Membranes Moist, Normal Exam - Respiratory Exam Respiratory Exam: Rales (bilateral basilar ). absent: Accessory Muscle Use, Rhonchi, Wheezes, Respiratory Distress - Cardiovascular Exam Cardiovascular Exam: REGULAR RHYTHM, +S1, +S2. absent: Bradycardia, Tachycardia - GI/Abdominal Exam GI & Abdominal Exam: Soft, Normal Bowel Sounds - Extremities Exam Extremities Exam: absent: Pedal Edema - Back Exam Back Exam: NORMAL INSPECTION - Neurological Exam Neurological Exam: Alert, Awake, CN II-XII Intact - Psychiatric Exam Psychiatric exam: Normal Affect, Normal Mood - Skin Skin Exam: Dry, Intact, Warm Assessment and Plan (1) Hyponatremia Status: Acute (2) Dyspnea Status: Acute (3) Hallucination Status: Resolved (4) Abnormal involuntary movements Status: Acute (5) HTN (hypertension) Status: Chronic (6) Insulin dependent diabetes mellitus Status: Chronic (7) Multiple myeloma Status: Chronic (8) Anemia Status: Chronic (9) Depression Status: Chronic (10) Sleep apnea Status: Chronic (11) DVT prophylaxis Status: Acute - Assessment and Plan (Free Text) Assessment: 70 yr old F admitted for worsening SOB and whole body/extremity tremors at rest that are slightly improving, hyponatremia resolved. Hallucinations have resolved since restarting abilify. Her magnesium is within appropriate range, will keep Mag level >2.0 , K+>4.0. Patients sodium and cortisol improved on hydrocortisone 10mg qhs. Psychiatry, neurology and endocrinology recommendations appreciated. Plan: Hyponatremia -resolved good response to hydrocortisone 10mg PO qHS -endocrine consult appreciated, Dr. Mann -Nephrology is following -continue to monitor cortisol level Dyspnea - improved,multifactorial has COPD, severe pulmonary hypertension and CHF -severe pulm htn: Adempas (Riociguat) 1mg PO TID -chf with preserved EF: Echo: LVEF 65-70%, right ventricular systolic pressure ~ 78mmHg compatible with severe pulmonary HTN -COPD: stable on o2, duonebs q6 prn Abnormal involuntary movements -will monitor for tremors, abilify restarted. consider taper of cogentin as per psychiatry recommendations, will d/w Neuro. -Neurology consulted: Cogentin 1mg PO TID Insulin dependent diabetes mellitus type 2 -improved with current regimen, will monitor and adjust accordingly -Last HgbA1c: 8.2% on 10/08/16 -Continue home meds: Metformin 500mg PO BID, Adjusted 10/05: Levemir 12 units SC HS, Humalog 8 units SC ACTID -Hypoglycemia protocol -ISS for coverage HTN -controlled, chronic -continue home med: Enalapril 2.5mg PO daily Multiple Myeloma/Anemia -stable, chronic -heme/onc consult: Dr Vilchis, (sees her as outpt) -On single agent Dexamethasone 20mg PO once weekly (on mondays) -b12 im daily Hypothyroidism -Endocrinology is following: Dr. Mann -TSH repeat was 0.06-->0.09 -Levothyroxine dose lowered to 75mcg Depression -appreciate psych recommendations, continue abilify, continue lexapro. Klonopin taper. -continue with home meds (Buspirone 10mg PO BID, Klonopin 0.5mg PO QHS, Lexapro 20mg PO QD) Sleep apnea -uses CPAP qhs DVT/GI prophylaxis -Lovenox 40mg SC QD -Pepcid 20mg PO BID
[2016-10-09] MEDS: Albuterol-Ipratrop 3 mg / 0.5 (3 ml) UD INH PRN (07:46)
[2016-10-09] MEDS: Insulin Lispro (humaLOG) 100 Units/ml Inj SC SCH ×3 (08:21→17:00)
[2016-10-09] MEDS: RIOCIGUAT 1 MG PO SCH ×3 (09:40→17:05)
[2016-10-09 12:21] VITALS: O2SAT 100
[2016-10-09 12:43] LABS: CORTISOL AM 5.6 ug/dL (4.46-22.7)
--- NOTE | 2016-10-09 14:19 | PN ---
ROOM 405. SUBJECTIVE: This is a 70-year-old elderly female with recent uncontrolled type 2 insulin requiring diabetes presenting here with generalized body weakness and evaluated secondary hypoadrenalism with subtherapeutic steroid dosing as given. She also has concomitant history of multiple myeloma and has been on steroid therapy given as Decadron at 20 mg once a week as noted and given. She is being followed closely now for metabolic management because of recent hyponatremia, which persisted despite normal saline infusion and tolvaptan medication as given. Her latest chemistry showed a BUN of 34, sodium 135, potassium 4.9, chloride 99, CO2 of 25, glucose 95 and creatinine 0.8. Her glucose levels have ranged from 82 to 104 and 226 mg/dL. The repeat cortisol level is actually much improved at this time with an initial level of just being 1 mcg/dL and the repeat level now is 11.1 done yesterday and today it is 5.6 mcg/dL. So, at this time, we will continue the hydrocortisone given at 10 mg once daily in the evening as noted. We will titrate incrementally as indicated to optimize metabolic control. We will follow and advise accordingly. Irene Mann MD
[2016-10-09 15:33] VITALS: BP 109/63; PULSE 75; RESP 20; TEMP 98.1
[2016-10-09 16:07] LABS: THYROGLOBULIN 0.2 ng/mL (2.8-40.9)
[2016-10-09] MEDS ORDERED: Insulin Lispro (humaLOG) 100 Units/ml Inj SC SCH (16:30)
--- NOTE | 2016-10-10 13:22 | CP.PCM.DIS ---
Provider - Provider Date of Admission: 09/30/16 16:45 Attending physician: Ciara Jane MD Time Spent in preparation of Discharge (in minutes): 35 Diagnosis - Discharge Diagnosis (1) Hyponatremia Status: Resolved (2) Dyspnea Status: Acute (3) Hallucination Status: Resolved (4) Abnormal involuntary movements Status: Acute (5) HTN (hypertension) Status: Chronic (6) Insulin dependent diabetes mellitus Status: Chronic (7) Multiple myeloma Status: Chronic (8) Anemia Status: Chronic (9) Depression Status: Chronic (10) Sleep apnea Status: Chronic (11) DVT prophylaxis Status: Acute Hospital Course - Lab Results Lab Results: Most Recent Lab Values WBC 7.7 K/uL (4.8-10.8) 10/07/16 05:50 RBC 3.69 Mil/uL (3.80-5.20) L 10/07/16 05:50 Hgb 10.6 g/dL (12.0-16.0) L 10/07/16 05:50 Hct 31.8 % (34.0-47.0) L 10/07/16 05:50 MCV 86.0 fl (81.0-99.0) D 10/07/16 05:50 MCH 28.6 pg (27.0-31.0) 10/07/16 05:50 MCHC 33.3 g/dL (33.0-37.0) 10/07/16 05:50 RDW 15.1 % (11.5-14.5) H 10/07/16 05:50 Plt Count 192 K/uL (130-400) 10/07/16 05:50 MPV 9.3 fl (7.2-11.7) 09/30/16 13:32 Neut % (Auto) 71.0 % (50.0-75.0) 09/30/16 13:32 Lymph % (Auto) 13.3 % (20.0-40.0) L 09/30/16 13:32 [place] % (Auto) 14.5 % (0.0-10.0) H 09/30/16 13:32 Eos % (Auto) 0.9 % (0.0-4.0) 09/30/16 13:32 Baso % (Auto) 0.3 % (0.0-2.0) 09/30/16 13:32 Neut # 5.7 K/uL (1.8-7.0) 09/30/16 13:32 Lymph # 1.1 K/uL (1.0-4.3) 09/30/16 13:32 [place] # 1.2 K/uL (0.0-0.8) H 09/30/16 13:32 Eos # 0.1 K/uL (0.0-0.7) 09/30/16 13:32 Baso # 0.0 K/uL (0.0-0.2) 09/30/16 13:32 ESR 24 mm/hr (0-30) 10/01/16 06:00 PT 11.8 Seconds (9.8-13.1) 09/30/16 13:32 INR 1.0 (0.9-1.2) 09/30/16 13:32 D-Dimer, Quantitative 449 ng/mlDDU (0-230) H 09/30/16 13:32 Sodium 135 mmol/l (132-148) 10/09/16 05:45 Potassium 4.9 MMOL/L (3.6-5.0) 10/09/16 05:45 Chloride 99 mmol/L (98-107) 10/09/16 05:45 Carbon Dioxide 25 mmol/L (22-30) 10/09/16 05:45 Anion Gap 15 (10-20) 10/09/16 05:45 BUN 34 mg/dl (7-17) H 10/09/16 05:45 Creatinine 0.8 mg/dL (0.7-1.2) 10/09/16 05:45 Est GFR ( Amer) > 60 10/09/16 05:45 Est GFR (Non-Af Amer) > 60 10/09/16 05:45 POC Glucose (mg/dL) 95 mg/dL (65-110) 10/09/16 20:13 Random Glucose 95 mg/dL (65-105) 10/09/16 05:45 Hemoglobin A1c 8.2 % (4.2-6.5) H 10/08/16 05:30 Serum Osmolality 262 mosm/kg (272-300) L 10/05/16 18:23 Uric Acid 7.4 mg/Dl (2.2-7.5) 10/05/16 18:23 Calcium 9.1 mg/dL (8.4-10.2) 10/09/16 05:45 Phosphorus 3.9 mg/dl (2.5-4.5) 10/05/16 14:27 Magnesium 2.0 MG/DL (1.6-2.3) 10/09/16 05:45 Total Bilirubin 0.3 mg/dl (0.2-1.3) 10/08/16 05:30 AST 15 U/L (14-36) 10/08/16 05:30 ALT 32 U/L (9-52) 10/08/16 05:30 Alkaline Phosphatase 71 U/L (38-126) 10/08/16 05:30 Total Creatine Kinase 39 U/L (30-135) 10/01/16 06:00 Troponin I 0.0530 ng/mL (0.00-0.120) 10/05/16 11:20 C-React Prot High Sens > 15.00 mg/L (1.00-3.00) H 10/01/16 06:00 NT-Pro-B Natriuret Pep 6830 pg/ml (0-900) H 09/30/16 18:15 Total Protein 6.1 G/DL (6.3-8.2) L 10/08/16 05:30 Total Protein (PEP) 5.7 g/dL (6.1-8.1) L 10/02/16 05:25 Albumin 3.9 g/dL (3.5-5.0) 10/08/16 05:30 Albumin (PEP) 3.4 g/dL (3.8-4.8) L 10/02/16 05:25 Globulin 2.2 gm/dL (2.2-3.9) 10/08/16 05:30 Albumin/Globulin Ratio 1.7 (1.0-2.1) 10/08/16 05:30 Gaprd-6-Avwmobidh 0.3 g/dL (0.2-0.3) 10/02/16 05:25 Uwwup-9-Zdfwvlzfk 0.7 g/dL (0.5-0.9) 10/02/16 05:25 Gjhh-9-Zujzgxxe 0.4 g/dL (0.4-0.6) 10/02/16 05:25 Vjvz-9-Svpiscrk 0.3 g/dL (0.2-0.5) 10/02/16 05:25 Gamma Globulins 0.6 g/dL (0.8-1.7) L 10/02/16 05:25 Abnorm Protein Band 1 0.14 g/dL (None Detected) H 10/02/16 05:25 Abnorm Protein Band 2 TEST NOT PERFORMED 10/02/16 05:25 Abnorm Protein Band 3 TEST NOT PERFORMED 10/02/16 05:25 Ceruloplasmin 33 mg/dL (18-53) 10/01/16 06:00 Angiotensin Convert Enz 61 U/L (9-67) 10/01/16 06:00 Vitamin B12 225 pg/mL (239-931) L 10/01/16 06:00 Methylmalonic Acid 407 nmol/L (87-318) H 10/02/16 05:25 Free T4 1.14 ng/dL (0.78-2.19) 10/08/16 05:30 Thyroxine (T4) 6.52 ug/dl (5.5-11.0) 10/08/16 05:30 Thyroglobulin, Quant 0.2 ng/mL (2.8-40.9) L 10/08/16 05:30 TSH 3rd Generation 0.09 mIU/ML (0.46-4.68) L 10/08/16 05:30 Cortisol AM Sample 5.6 ug/dL (4.46-22.7) 10/09/16 05:45 ACTH <5 pg/mL (6-50) L 10/08/16 05:30 Urine Osmolality 182 mosm/kg (300-1000) L 10/05/16 20:33 Ur Random Sodium 33 meq/L 10/05/16 20:33 Ur Random Potassium 23.8 mmol/L 10/05/16 20:33 ANDRÉS & SPEP Interp See note 10/02/16 05:25 Serum Immunofixation Detected (Not Detected) H 10/01/16 06:00 Urine Immunofixation Not detected (Not Detected) 10/05/16 20:45 Rheum Arthritis Panel Negative (NEGATIVE) 10/01/16 06:00 RAKESH Screen Negative (Negative) 10/01/16 06:00 RAKESH Titer TEST NOT PERFORMED 10/01/16 06:00 RAKESH Titer 2 TEST NOT PERFORMED 10/01/16 06:00 RAKESH Pattern TEST NOT PERFORMED 10/01/16 06:00 RAKESH Pattern 2 TEST NOT PERFORMED 10/01/16 06:00 Thyroperoxidase Ab <1 IU/mL (<9) 10/08/16 05:30 Thyroglobulin Antibody <1 IU/mL (< OR = 1) 10/08/16 05:30 [place]/Lambda Light Chain (()) 10/02/16 05:25 Free [place] Light Chains 20.7 mg/L (3.3-19.4) H 10/02/16 05:25 Free Lambda Light Chain 16.6 mg/L (5.7-26.3) 10/02/16 05:25 Free [place]/Lambda Ratio 1.25 (0.26-1.65) 10/02/16 05:25 RPR Nonreactive (NONREACTIVE) 10/01/16 06:00 Lyme IgG 18 kDa Band Nonreactive 10/01/16 06:00 Lyme IgG 23 kDa Band Nonreactive 10/01/16 06:00 Lyme IgG 28 kDa Band Nonreactive 10/01/16 06:00 Lyme IgG 30 kDa Band Nonreactive 10/01/16 06:00 Lyme IgG 39 kDa Band Nonreactive 10/01/16 06:00 Lyme IgG 41 kDa Band Nonreactive 10/01/16 06:00 Lyme IgG 45 kDa Band Nonreactive 10/01/16 06:00 Lyme IgG 58 kDa Band Nonreactive 10/01/16 06:00 Lyme IgG 66 kDa Band Nonreactive 10/01/16 06:00 Lyme IgG 93 kDa Band Nonreactive 10/01/16 06:00 Lyme IgG W Blot Interp Negative (Negative) 10/01/16 06:00 Lyme IgM 23 kDa Band Nonreactive 10/01/16 06:00 Lyme IgM 39 kDa Band Nonreactive 10/01/16 06:00 Lyme IgM 41 kDa Band Nonreactive 10/01/16 06:00 Lyme IgM W Blot Interp Negative (Negative) 10/01/16 06:00 - Hospital Course Hospital Course: 70 year old female admitted for worsening dyspnea and abnormal involuntary movements, subsequently found to be hyponatremic. Her abilify and lexapro were held initially but have been resumed, Endocrine and Nephrology were consulted for adrenal insufficiency. Patient was started on hydrocortisone 10mg PO qHS and has responded well to treatment. Patients dyspnea is multifactorial and has improved with daily PO lasix 20mg. Will d/c to TCU for rehabilitation. Continue with present management. Discharge medications: Acetaminophen (Tylenol 325mg Tab) 650 mg PO Q6 PRN Albuterol/Ipratropium (Duoneb 3 Mg/0.5 Mg (3 Ml) Ud) 3 ml INH RQ4 PRN Aripiprazole (Abilify) 5 mg PO DAILY [facility] Aspirin (Ecotrin) 81 mg PO DAILY [facility] Atorvastatin Calcium (Lipitor) 20 mg PO QPM [facility] Benztropine Mesylate (Cogentin) 1 mg PO Q8@0000,0800,1600 [facility] Buspirone HCl (Buspar) 10 mg PO BID [facility] Clonazepam (Klonopin) 0.5 mg PO HS [facility] Cyanocobalamin (Vitamin B12 1000 Mcg/Ml Inj) 1,000 mcg IM DAILY [facility] Dexamethasone (Decadron) 20 mg PO Mo@0900 [facility] Enalapril Maleate (Vasotec) 2.5 mg PO DAILY@0900 [facility] Ergocalciferol (Drisdol 50,000 Intl Units Cap) 1 cap PO FR [facility] Escitalopram Oxalate (Lexapro) 10 mg PO HS [facility] Famotidine (Pepcid) 20 mg PO BID [facility] Guaifenesin (Robitussin) 200 mg PO Q6 PRN Home Med (Riociguat [Adempas]) 1 mg PO TID@0900,1300,1700 [facility] Hydrocortisone (Cortef) 10 mg PO HS [facility] Insulin Detemir (Levemir) 12 units SC HS [facility] Insulin Human Lispro (Humalog) 8 units SC ACTID [facility] Levothyroxine Sodium (Synthroid) 75 mcg PO DAILY@0630 [facility] Lidocaine (Lidoderm) 1 ea TD DAILY PRN Metformin HCl (Glucophage) 500 mg PO BIDWM [facility] Discharge Plan - Follow Up Plan Condition: FAIR Disposition: TRANSF TO SNF Instructions: COPD (Chronic Obstructive Pulmonary Disease) (DC), Chronic Hypertension (DC) Additional Instructions: DISCHARGE TO TRANSITIONAL CARE UNIT. THANK YOU. Referrals: Luis Eduardo Vilchis MD [Staff Provider] - Irene Mann MD [Medical Doctor] - Patrick Doyle MD [Medical Doctor] - Yancy Grady MD [Medical Doctor] - Cady Angel MD [Staff Provider] -
== END 2016-10-09 17:15 | DRG 127 ==
LOC: H.ER 12:01 → H.ERHOLD 16:45 → OBSVTOIN 16:45 → H.TEL 21:01
PROVIDERS: ADMIT Family Medicine Geriatric Medicine; ATTEND Family Medicine Geriatric Medicine
DX: I11.0 Hypertensive heart disease with heart failure (principal); I50.33 Acute on chronic diastolic (congestive) heart failure; I47.2 Ventricular tachycardia; C90.00 Multiple myeloma not having achieved remission; E11.42 Type 2 diabetes mellitus with diabetic polyneuropathy; I27.2 Other secondary pulmonary hypertension; E27.3 Drug-induced adrenocortical insufficiency; J44.1 Chronic obstructive pulmonary disease with (acute) exacerbation; E87.1 Hypo-osmolality and hyponatremia; E83.42 Hypomagnesemia; E03.9 Hypothyroidism, unspecified; G20 Parkinson's disease; M79.7 Fibromyalgia; D63.0 Anemia in neoplastic disease; T38.0X5A Adverse effect of glucocorticoids and synthetic analogues, initial encounter; G47.33 Obstructive sleep apnea (adult) (pediatric); I25.10 Atherosclerotic heart disease of native coronary artery without angina pectoris; K21.9 Gastro-esophageal reflux disease without esophagitis; M06.9 Rheumatoid arthritis, unspecified; E78.5 Hyperlipidemia, unspecified; F32.9 Major depressive disorder, single episode, unspecified; E66.9 Obesity, unspecified; E78.00 Pure hypercholesterolemia, unspecified; F41.1 Generalized anxiety disorder; Z99.81 Dependence on supplemental oxygen; Z88.6 Allergy status to analgesic agent; Z86.718 Personal history of other venous thrombosis and embolism; Z79.4 Long term (current) use of insulin; Z79.82 Long term (current) use of aspirin; Z86.711 Personal history of pulmonary embolism; Z87.01 Personal history of pneumonia (recurrent)

== ENCOUNTER 2016-10-09 13:37 | Inpatient (IN) | payer MEDICARE, OTHER ==
[2016-10-09 17:32] VITALS: BMI 29.7
[2016-10-09] MEDS ORDERED: Albuterol-Ipratrop 3 mg / 0.5 (3 ml) UD INH PRN (18:46)
[2016-10-09] MEDS ORDERED: Ergocalciferol 50,000 Intl Units Cap PO SCH (19:00)
[2016-10-09] MEDS: Insulin Detemir 100 Units/ml Inj SC SCH (21:40)
[2016-10-10] MEDS: Levothyroxine 75 MCG TAB PO SCH (06:28)
[2016-10-10] MEDS: RIOCIGUAT 1 MG PO SCH ×3 (08:58→17:00)
[2016-10-10] MEDS: Lidocaine 5% Patch TD PRN (09:08)
--- NOTE | 2016-10-10 12:37 | CP.PCM.HP ---
History of Present Illness - History of Present Illness History of Present Illness: TCU H&P 70 year old female with HTN, IDDM type 2, Hypothyroidism, COPD (on home O2), Diastolic CHF grade 1, Pulmonary HTN, Sleep apnea, Multiple myeloma admitted for worsening dyspnea and abnormal involuntary movements, subsequently found to be hyponatremic. Her abilify and lexapro were held initially but have been resumed, Endocrine and Nephrology were consulted for adrenal insufficiency. Patient was started on hydrocortisone 10mg PO qHS and has responded well to treatment. Patients dyspnea is multifactorial and has improved with daily PO lasix 20mg. Neurology started the patient on Cogentin 10mg PO TID, has now been tapered to BID. The abnormal involuntary movements have slightly improved. She feels well this morning, breathing is improved and she will begin physical therapy. Denies any chest pain, abdominal pain, nausea, vomiting, diarrhea, pedal edema. PMD: Dr David Neumann Present on Admission - Present on Admission Any Indicators Present on Admission: No Review of Systems - Constitutional Constitutional: Sleep Apnea. absent: Headache, Weakness - EENT Eyes: absent: Change in Vision Nose/Mouth/Throat: Nasal Congestion - Cardiovascular Cardiovascular: Dyspnea. absent: Chest Pain, Palpitations, Pedal Edema - Respiratory Respiratory: Cough (nonproductive). absent: Wheezing, Pain on Inspiration, Chest Congestion, Pain with Coughing - Gastrointestinal Gastrointestinal: absent: Abdominal Pain, Constipation, Nausea, Vomiting - Neurological Neurological: Abnormal Movements (mild tremor in upper extremities). absent: Confusion, Dizziness, Loss of Vision, Syncope - Hematologic/Lymphatic Hematologic: absent: Easy Bleeding, Easy Bruising Past Patient History - Infectious Disease Hx of Infectious Diseases: None - Tetanus Immunizations Tetanus Immunization: Unknown - Past Medical History & Family History Past Medical History?: Yes - Past Social History Smoking Status: Never Smoked - CARDIAC Hx Cardiac Disorders: Yes Hx Congestive Heart Failure: Yes Hx Hypercholesterolemia: Yes Hx Hypertension: Yes - PULMONARY Hx Asthma: Yes Hx Chronic Obstructive Pulmonary Disease (COPD): Yes Hx Emphysema: Yes Hx Pneumonia: Yes Hx Pulmonary Embolism: Yes Hx Sleep Apnea: Yes Other/Comment: pulmonary hypertension - NEUROLOGICAL Hx Migraine: Yes Hx Parkinson's Disease: Yes - HEENT Hx HEENT Problems: Yes Other/Comment: Uses Glasses - RENAL Hx Chronic Kidney Disease: No - ENDOCRINE/METABOLIC Hx Diabetes Mellitus Type 2: Yes Hx Hypothyroidism: Yes - HEMATOLOGICAL/ONCOLOGICAL Hx AIDS: No Hx Human Immunodeficiency Virus (HIV): No Other/Comment: multiple myeloma - INTEGUMENTARY Hx Dermatological Problems: No - MUSCULOSKELETAL/RHEUMATOLOGICAL Hx Arthritis: Yes Hx Falls: No Hx Rheumatoid Arthritis: Yes - GASTROINTESTINAL Hx Gastrointestinal Disorders: No - GENITOURINARY/GYNECOLOGICAL Hx Genitourinary Disorders: Yes Hx Incontinence: Yes Other/Comment: Urinary frequency - PSYCHIATRIC Hx Psychophysiologic Disorder: Yes Hx Anxiety: Yes Hx Depression: Yes Hx Substance Use: No - SURGICAL HISTORY Hx Cholecystectomy: Yes Hx Tonsillectomy: Yes Other/Comment: dvt, PE with iv c filter - ANESTHESIA Hx Anesthesia: Yes Hx Anesthesia Reactions: Yes (Resp. Distress) Meds Allergies/Adverse Reactions: Allergies Allergy/AdvReac Type Severity Reaction Status Date / Time codeine AdvReac syncope, Verified 10/09/16 17:32 diaphoresis Physical Exam - Constitutional Appears: Well, No Acute Distress - Head Exam Head Exam: ATRAUMATIC, NORMAL INSPECTION, NORMOCEPHALIC - Eye Exam Eye Exam: EOMI, Normal appearance - ENT Exam ENT Exam: Mucous Membranes Moist - Respiratory Exam Respiratory Exam: Rales (minimal basilar right more than left), NORMAL BREATHING PATTERN. absent: Accessory Muscle Use, Decreased Breath Sounds, Rhonchi, Wheezes, Respiratory Distress - Cardiovascular Exam Cardiovascular Exam: +S1, +S2 - GI/Abdominal Exam GI & Abdominal Exam: Soft. absent: Distended, Guarding, Tenderness - Extremities Exam Extremities exam: Negative for: pedal edema - Neurological Exam Neurological exam: Alert, CN II-XII Intact, Oriented x3 - Psychiatric Exam Psychiatric exam: Normal Affect, Normal Mood - Skin Skin Exam: Dry, Intact, Normal Color, Warm Results - Vital Signs Recent Vital Signs: Last Vital Signs Temp 97.8 F 10/10/16 07:51 Pulse 76 10/10/16 07:51 Resp 18 10/10/16 07:51 BP 119/59 L 10/10/16 07:51 Pulse Ox 94 L 10/10/16 07:51 - Labs Labs: Laboratory Results - last 24 hr 10/10/16 10/10/16 04:26 10:49 POC Glucose (mg/dL) 143 H 132 H Assessment & Plan (1) Abnormal involuntary movements Status: Acute (2) Insulin dependent diabetes mellitus Status: Chronic (3) Dyspnea Status: Acute (4) Anemia Status: Chronic (5) Sleep apnea Status: Chronic (6) DVT prophylaxis Status: Acute - Assessment and Plan (Free Text) Assessment: 70 yr old F admitted for worsening SOB and whole body/extremity tremors at rest that are slightly improving, hyponatremia resolved. Hallucinations have resolved since restarting abilify. Her magnesium is within appropriate range, will keep Mag level >2.0 , K+>4.0. Patients sodium and cortisol improved on hydrocortisone 10mg qhs. Psychiatry, neurology and endocrinology recommendations appreciated. Plan: Hyponatremia -resolved good response to hydrocortisone 10mg PO qHS -endocrine /nephro consult Dyspnea -improved,multifactorial has COPD, severe pulmonary hypertension and CHF -severe pulm htn: Adempas (Riociguat) 1mg PO TID -chf with preserved EF: Echo: LVEF 65-70%, right ventricular systolic pressure ~ 78mmHg compatible with severe pulmonary HTN -COPD: stable on o2, duonebs q6 prn Abnormal involuntary movements -will monitor for tremors, abilify restarted. will taper cogentin 10mg BID -Neurology consulted Insulin dependent diabetes mellitus type 2 -improved with current regimen, will monitor and adjust accordingly -Last HgbA1c: 8.2% on 10/08/16 -Continue home meds: Metformin 500mg PO BID, Adjusted 10/05: Levemir 12 units SC HS, Humalog 8 units SC ACTID -Hypoglycemia protocol -ISS for coverage HTN -controlled, chronic -continue home med: Enalapril 2.5mg PO daily Multiple Myeloma/Anemia -stable, chronic -heme/onc consult: Dr Vilchis, (sees her as outpt) -On single agent Dexamethasone 20mg PO once weekly (on mondays) -b12 im daily Hypothyroidism -Endocrinology is following: Dr. Mann -TSH repeat was 0.06-->0.09 -Levothyroxine dose lowered to 75mcg Depression -appreciate psych recommendations, continue abilify, continue lexapro. Klonopin taper. -continue with home meds (Buspirone 10mg PO BID, Klonopin 0.5mg PO QHS, Lexapro 20mg PO QD) Sleep apnea -uses CPAP qhs DVT/GI prophylaxis -Lovenox 40mg SC QD -Pepcid 20mg PO BID
[2016-10-10 16:23] VITALS: RESP 20
[2016-10-10] MEDS ORDERED: guaiFENesin 100 mg/5 ml Syrup UD PO PRN (16:41)
[2016-10-10] MEDS ORDERED: Simethicone 80 mg Chewtab PO ONE (19:46)
[2016-10-10] MEDS: Insulin Detemir 100 Units/ml Inj SC SCH (21:46)
[2016-10-11] MEDS: Levothyroxine 75 MCG TAB PO SCH (06:38)
[2016-10-11] MEDS: RIOCIGUAT 1 MG PO SCH ×3 (08:30→16:52)
[2016-10-11] MEDS: Insulin Detemir 100 Units/ml Inj SC SCH (21:06)
--- NOTE | 2016-10-11 22:47 | CON ---
DATE: 10/11/2016 REASON FOR CONSULTATION: Hallucination. CHIEF COMPLAINT: The patient was admitted to [facility] for shortness of breath, chest discomfortness and involuntary movement. From neurological point of view, I was called into evaluate her for further management when she was originally admitted in [facility]. During that period, the patient was taking atypical neuroleptics, which was probably secondary cause for her extrapyramidal symptoms. The patient was given Cogentin at that point. The patient also had an episode of visual hallucination seeing people without heads. She used to have the similar symptoms in the past also; however, these symptoms reoccurred that would have concerned her. No history of headache. No history of visual or bulbar dysfunction. No focal weakness. She claims that her tremor was much improved; however, she has slight tremor, but this is longstanding tremor as per the patient. PAST MEDICAL HISTORY: Hypertension, onz-issyipo-qborijwfu diabetes mellitus, hypothyroidism, COPD, CHF and multiple myeloma. REVIEW OF SYSTEMS: A 12-point system been reviewed. From neurology, she does have visual hallucination. MEDICATIONS: Abilify, BuSpar, Cogentin, Decadron, DuoNeb, aspirin, Glucophage, Klonopin, Lasix, Levemir and Lexapro. PHYSICAL EXAMINATION: VITAL SIGNS: Blood pressure 126/60, mean arterial pressure of 82, respiratory rate 16 and temperature afebrile. NECK: Supple. No carotid bruit. CARDIOPULMONARY: Heart sounds regular. LUNGS: Fair air entry. EXTREMITIES: No edema of legs. NEUROLOGIC: MENTAL STATUS: She is awake, alert and oriented to person, place and time. No sign of suicidal ideations. No sign of hallucination. No sign of depression or suicidal ideation. CRANIAL NERVES: Visual field intact. Pupils reactive to light. Extraocular movement normal. No nystagmus. No facial sensory deficit. No facial asymmetry. Hearing is normal. Tongue is midline. Good gag. MOTOR: Outstretched hand with eyes closed. No drift noted. Power is symmetric . DEEP TENDON REFLEXES: Biceps, brachialis, and triceps 2+; both knees are absent; both ankles are absent; plantars are mute. SENSORY: Grossly intact. No cortical sensory loss. The patient also showed evidence of bilateral, distal and symmetric sensory motor neuropathy. COORDINATION: Odctyb-[id number] testing is intact. No dysmetria noted. The patient does have resting tremor including nodding of her head. LABORATORY DATA: Blood workup, which was reviewed from her admission, all normal. No evidence of ceruloplasmin, suggestive of hepatolenticular dysfunction. The patient's condition has been discussed with the resident yesterday. Her hallucination could be related to dopaminergic medication. Cogentin brought down to dose to twice a day. The patient does have polypharmacy. If medically stable, atypical neuroleptics should be slowly tapered off. The patient's condition been discussed with her. The patient should have followup with heme/oncologist for multiple myeloma. From neurologic point of view, she is stable. Continue the present management. Patrick Doyle MD
[2016-10-12] MEDS: Levothyroxine 75 MCG TAB PO SCH (06:20)
[2016-10-12] MEDS: Lidocaine 5% Patch TD PRN (08:19)
[2016-10-12] MEDS: RIOCIGUAT 1 MG PO SCH ×3 (08:22→17:09)
[2016-10-12] MEDS: Insulin Detemir 100 Units/ml Inj SC SCH (22:23)
[2016-10-13] MEDS: Levothyroxine 75 MCG TAB PO SCH (06:10)
[2016-10-13 06:37] LABS: HEMOGLOBIN 12.9 g/dL (12.0-16.0); MEAN CELL VOLUME 86.2 fl (81.0-99.0); MEAN CORPUSCULAR HEMOGLOBIN 28.9 pg (27.0-31.0); MEAN CORPUSCULAR HGB CONC 33.5 g/dL (33.0-37.0); RBC 4.47 Mil/uL (3.80-5.20); RED CELL DISTRIBUTION WIDTH 14.7 % (11.5-14.5); WHITE BLOOD COUNT 8.4 K/uL (4.8-10.8)
[2016-10-13 06:49] LABS: BLOOD UREA NITROGEN 35 mg/dl (7-17); CALCIUM 9.6 mg/dL (8.4-10.2); GFR AFRICAN-AMERICAN > 60; GFR NON-AFRICAN AMERICAN > 60
--- NOTE | 2016-10-13 08:04 | CP.PCM.PN ---
Subjective - Date & Time of Evaluation Date of Evaluation: 10/13/16 Time of Evaluation: 07:51 - Subjective Subjective: No acute events overnight. Patient feels well. Still has mild tremor but notes its better. She was seen by neurologist yesterday. PT/OT notes reviewed. She is doing well in physical and occupational therapy still has some fatigue and tremor while completing activities. Would continue to benefit from PT/OT services. Labs reviewed. Neurology consult appreciated. Klonopin tapered, now discontinued. Re-consult Dr. Mann for management of AI. Objective - Vital Signs/Intake and Output Vital Signs (last 24 hours): Temp Pulse Resp BP Pulse Ox 98.2 F 90 20 116/77 95 10/12/16 22:16 10/13/16 06:50 10/12/16 22:16 10/12/16 22:16 10/12/16 22:16 - Medications Medications: Current Medications Acetaminophen (Tylenol 325mg Tab) 650 mg PO Q6 PRN PRN Reason: Pain, Mild (1-3) Last Admin: 10/12/16 23:14 Dose: 650 mg Albuterol/Ipratropium (Duoneb 3 Mg/0.5 Mg (3 Ml) Ud) 3 ml INH RQ4 PRN PRN Reason: Shortness of Breath Aripiprazole (Abilify) 5 mg PO DAILY [facility] Last Admin: 10/12/16 08:20 Dose: 5 mg Aspirin (Ecotrin) 81 mg PO DAILY [facility] Last Admin: 10/12/16 08:21 Dose: 81 mg Atorvastatin Calcium (Lipitor) 20 mg PO QPM [facility] Last Admin: 10/12/16 17:09 Dose: 20 mg Benztropine Mesylate (Cogentin) 1 mg PO BID [facility] Last Admin: 10/12/16 17:08 Dose: 1 mg Buspirone HCl (Buspar) 10 mg PO BID [facility] Last Admin: 10/12/16 17:08 Dose: 10 mg Cyanocobalamin (Vitamin B12 1000 Mcg/Ml Inj) 1,000 mcg IM DAILY [facility] Last Admin: 10/12/16 08:22 Dose: 1,000 mcg Dexamethasone (Decadron) 20 mg PO Mo@0900 [facility] Last Admin: 10/12/16 08:21 Dose: 20 mg Enalapril Maleate (Vasotec) 2.5 mg PO DAILY [facility] Last Admin: 10/12/16 08:22 Dose: 2.5 mg Enoxaparin Sodium (Lovenox) 40 mg SC DAILY [facility] PRN Reason: Protocol Ergocalciferol (Drisdol 50,000 Intl Units Cap) 1 cap PO FR [facility] Last Admin: 10/09/16 20:09 Dose: 1 cap Escitalopram Oxalate (Lexapro) 10 mg PO [facility] Last Admin: 10/12/16 22:23 Dose: 10 mg Furosemide (Lasix) 20 mg PO DAILY [facility] Last Admin: 10/12/16 08:20 Dose: 20 mg Guaifenesin (Robitussin) 100 mg PO Q6 PRN PRN Reason: Cough Last Admin: 10/10/16 21:45 Dose: 100 mg Home Med (Riociguat [Adempas]) 1 mg PO TID [facility] Last Admin: 10/12/16 17:09 Dose: Not Given Hydrocortisone (Cortef) 10 mg PO [facility] Last Admin: 10/12/16 22:23 Dose: 10 mg Insulin Detemir (Levemir) 15 units SC [facility] Last Admin: 10/12/16 22:23 Dose: 15 unit Levothyroxine Sodium (Synthroid) 75 mcg PO DAILY@0630 [facility] Last Admin: 10/13/16 06:10 Dose: 75 mcg Lidocaine (Lidoderm) 1 ea TD DAILY PRN PRN Reason: Pain, moderate (4-7) Last Admin: 10/12/16 08:19 Dose: 1 ea Metformin HCl (Glucophage) 500 mg PO BID [facility] Last Admin: 10/12/16 17:07 Dose: 500 mg Nystatin (Mycostatin Cream) 1 applic TOP TID [facility] Stop: 10/18/16 17:00 Last Admin: 10/12/16 17:08 Dose: 1 applic - Labs Labs: 10/13/16 06:20 10/13/16 06:20 - Constitutional Appears: Well, No Acute Distress - Head Exam Head Exam: NORMAL INSPECTION - Eye Exam Eye Exam: Normal appearance - ENT Exam ENT Exam: Mucous Membranes Moist - Respiratory Exam Respiratory Exam: Rales (basilar on right ), NORMAL BREATHING PATTERN. absent: Prolonged Expiratory Phase, Rhonchi, Wheezes, Respiratory Distress - Cardiovascular Exam Cardiovascular Exam: REGULAR RHYTHM, +S1, +S2 - GI/Abdominal Exam GI & Abdominal Exam: Soft. absent: Tenderness, Normal Bowel Sounds - Extremities Exam Extremities Exam: absent: Pedal Edema, Tenderness - Neurological Exam Neurological Exam: Alert, Awake, CN II-XII Intact, Oriented x3 Additional comments: mild tremor - Psychiatric Exam Psychiatric exam: Normal Affect, Normal Mood - Skin Skin Exam: Dry, Intact Assessment and Plan (1) Adrenal insufficiency Assessment & Plan: 70 yr old F admitted for worsening SOB and whole body/extremity tremors at rest. Tremors improved, dyspnea improving. Patient doing well with physical therapy. Her hyponatremia resolved with hydrocortisone treatment. Her magnesium is within appropriate range, will keep Mag level >2.0 , K+>4.0. Status: Acute (2) Insulin dependent diabetes mellitus Assessment & Plan: Metformin 500mg BID Levemir 12 units qhs, Humalog 8 units with meals Last HgbA1c: 8.2% on 10/08/16 Status: Chronic (3) Abnormal involuntary movements Assessment & Plan: persist, improved : congenting 10mg bid Status: Acute (4) Dyspnea Assessment & Plan: -improved,multifactorial has COPD, severe pulmonary hypertension and CHF -severe pulm htn: Adempas (Riociguat) 1mg PO TID -chf with preserved EF: Echo: LVEF 65-70%, right ventricular systolic pressure ~ 78mmHg compatible with severe pulmonary HTN -COPD: stable on o2, duonebs q6 prn Status: Chronic (5) Sleep apnea Assessment & Plan: cpap q hs Status: Chronic (6) HTN (hypertension) Assessment & Plan: controlled, Enalapril 2.5mg PO daily Status: Chronic (7) Hypothyroid Assessment & Plan: Levothyroxine dose lowered to 75mcg Status: Chronic (8) Multiple myeloma Assessment & Plan: -stable, chronic -Dexamethasone 20mg PO once weekly (on mondays) Status: Chronic (9) Depression Assessment & Plan: Buspirone 10mg PO BID, Lexapro 20mg PO QD Status: Chronic (10) DVT prophylaxis Assessment & Plan: lovenox 40 sc Status: Acute
[2016-10-13] MEDS: Enoxaparin 40 mg Syringe SC SCH (08:30)
[2016-10-13] MEDS: Lidocaine 5% Patch TD PRN (08:34)
[2016-10-13] MEDS ORDERED: Lidocaine 5% Patch TD ONE (09:24)
[2016-10-13] MEDS: RIOCIGUAT 1 MG PO SCH ×3 (09:29→18:40)
[2016-10-13] MEDS ORDERED: Insulin Detemir 100 Units/ml Inj SC SCH (09:52)
[2016-10-13] MEDS: Insulin Lispro (humaLOG) 100 Units/ml Inj SC SCH ×2 (12:05→16:35)
[2016-10-13 15:52] LABS: MAGNESIUM 1.4 MG/DL (1.6-2.3)
[2016-10-13] MEDS ORDERED: Magnesium Sulfate 2 gm/50 ml 2 GM/50 ML BAG IVPB ONE (18:00)
[2016-10-13] MEDS: Insulin Detemir 100 Units/ml Inj SC SCH (22:07)
--- NOTE | 2016-10-14 02:55 | PN ---
ENDO FOLLOWUP NOTE TCU Room 708. 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 Her glycemic levels are fluctuating as noted and the glucose values have ranged today from 96 to 150 to 280 mL/dL. The bedtime glucose was 262 as noted last night. Her latest chemistry showed a BUN of 35, sodium 136, potassium 4.6, chloride 95, CO2 of 27, glucose 244, and creatinine 0.9. ASSESSMENT AND PLAN: This is a 70-year-old female with recent uncontrolled type 2 insulin requiring diabetes with extremes of glycemic fluctuations related also to the variability of oral intake and is now being referred for further endocrine evaluation and management. Moreover, she also has significant history of secondary hypoadrenalism and currently also has ongoing management for multiple myeloma and has been on Decadron given as 20 mg once weekly every Wednesday as noted. She was started on the regular floor with a low dose bedtime oral steroid as give. She also has diabetic microvascular complications of retinopathy and polyneuropathy. Moreover, she has diabetic microvascular complications of coronary artery disease and peripheral arterial disease and vasculopathy. There is also significant history of hypothyroidism, currently on a modified and lower dosing for levothyroxine replacement therapy as given. Plan of management as discussed with the patient and staff. We will modify her current insulin regimen and increase the Humalog to 10 units subcutaneous t.i.d before meals to start tomorrow morning as ordered. 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 We will modify the Levemir given as basal insulin to 40 units subcutaneous at bedtime daily to start tonight. We will also continue the oral hypoglycemic drug therapy as given with metformin given as 500 mg b.i.d. after meals as ordered. We will continue her Decadron given as 20 mg once a week as ordered, but we will also continue the hydrocortisone given as 10 mg p.o. at bedtime daily as ordered. We will obtain serial chemistries and also serial serum cortisol levels and adjust her bedtime hydrocortisone as indicated. We will repeat also the thyroid studies and titrate her levothyroxine dose accordingly. We will continue her Synthroid given as 75 mcg daily as ordered. We will follow and advise accordingly. Irene Mann MD
[2016-10-14] MEDS: Levothyroxine 75 MCG TAB PO SCH (06:44)
[2016-10-14 07:43] LABS: ALB/GLOB RATIO 1.5 (1.0-2.1); ALT/SGPT 30 U/L (9-52); AST/SGOT 18 U/L (14-36); BLOOD UREA NITROGEN 36 mg/dl (7-17); CALCIUM 9.3 mg/dL (8.4-10.2); GFR AFRICAN-AMERICAN > 60; GFR NON-AFRICAN AMERICAN > 60
[2016-10-14 07:50] LABS: T4 6.31 ug/dl (5.5-11.0)
[2016-10-14] MEDS: Enoxaparin 40 mg Syringe SC SCH (08:48)
[2016-10-14] MEDS: Lidocaine 5% Patch TD PRN (08:50)
[2016-10-14] MEDS: Insulin Lispro (humaLOG) 100 Units/ml Inj SC SCH ×3 (08:51→16:58)
[2016-10-14] MEDS: RIOCIGUAT 1 MG PO SCH ×3 (08:54→19:26)
--- NOTE | 2016-10-14 20:11 | PN ---
ENDOCRINOLOGY FOLLOWUP NOTE LOCATION: Room #708, [facility]. SUMMARY: This is a 70-year-old female with known history of type 2 insulin-requiring diabetes and also concomitant multiple myeloma, currently on steroid therapy as given, and is being followed closely for metabolic management. Her glycemic levels are much improved at this time and glucose values have ranged from 145 through 150 and 197 mg/dL. Her latest chemistry showed a BUN of 36, sodium 137, potassium 4.5, chloride 100, CO2 27, glucose 128, and creatinine 0.9. Her repeat thyroid study showed a T4 of 6.31 with a TSH of 0.15. Her serum cortisol level is still pending as noted. Her magnesium is 2.0 and calcium is 9.3. So at this time, we will continue the Decadron given as 20 mg once weekly as ordered. Moreover, we will also continue the hydrocortisone given as 10 mg p.o. at bedtime daily to start tonight. We will titrate incrementally as indicated to optimize metabolic control. We will also continue the low-dose basal and bolus insulin regimen to allow for dose equilibration and keep her on the Humalog given as 10 units subcutaneous t.i.d. before meals as ordered. We will continue the Levemir given as 14 units subcutaneous at bedtime daily as given. She is also on metformin given as 500 mg b.i.d. with meals as ordered. Moreover, we will continue the Synthroid given as 75 mcg once daily before breakfast as ordered. We will titrate incrementally as indicated to optimize metabolic control. We will also continue the steroid therapy as given, especially the hydrocortisone given as 10 mg at bedtime daily pending the availability of fasting serum cortisol level as ordered. We will obtain serial chemistry and supplement accordingly as needed. We will follow. Irene Mann MD
[2016-10-14] MEDS: Insulin Detemir 100 Units/ml Inj SC SCH (21:46)
[2016-10-15] MEDS: Levothyroxine 75 MCG TAB PO SCH (06:19)
[2016-10-15] MEDS: Insulin Lispro (humaLOG) 100 Units/ml Inj SC SCH ×4 (08:00→16:56)
[2016-10-15] MEDS: Enoxaparin 40 mg Syringe SC SCH (08:33)
[2016-10-15] MEDS: Lidocaine 5% Patch TD PRN (08:34)
[2016-10-15] MEDS: RIOCIGUAT 1 MG PO SCH ×3 (12:02→16:59)
--- NOTE | 2016-10-15 17:27 | PN ---
DATE: ENDO FOLLOWUP NOTE LOCATION: Room 708[facility]. SUBJECTIVE: This is a 70-year-old female with known history of multiple myeloma, currently on steroid therapy, given once weekly, and also being followed closely for metabolic management. She also has developed secondary hypoadrenalism or adrenal insufficiency and is currently on hydrocortisone given as 10 mg once daily at bedtime. Moreover, she also has uncontrolled type 2 insulin requiring diabetes with near optimal metabolic control of her diabetic condition on a combination of basal and bolus insulin regimen as given. LABORATORY DATA: Her latest glucose levels are ranged from 144 to 151 and 163 mg/dL. Her cortisol level was reported at 6.0, which has much improved compared to the initial level done a week ago. Her chemistry showed a BUN of 36, sodium 137, potassium 4.5, chloride 100, CO2 of 27, glucose 128, and creatinine 0.9. PLAN: So at this time, we will continue the Levemir given as 14 units subcutaneous at bedtime daily with Humalog given as 10 units subcutaneous t.i.d. before meals as ordered. We will also continue the Decadron given as 20 mg every Wednesday morning as ordered and also the hydrocortisone given as 10 mg at bedtime daily as ordered. We will continue the same levothyroxine given as 75 mcg daily as ordered. We will obtain serial chemistries and supplement accordingly as needed. We will follow and advise accordingly. Irene Mann MD
[2016-10-15] MEDS: Insulin Detemir 100 Units/ml Inj SC SCH (21:50)
[2016-10-16] MEDS: Levothyroxine 75 MCG TAB PO SCH (05:41)
[2016-10-16 08:31] VITALS: BP 105/56; PULSE 85; TEMP 97.6; O2SAT 99
[2016-10-16] MEDS: Lidocaine 5% Patch TD PRN (08:31)
[2016-10-16] MEDS: Enoxaparin 40 mg Syringe SC SCH (08:32)
[2016-10-16] MEDS: RIOCIGUAT 1 MG PO SCH ×2 (08:33→13:25)
[2016-10-16] MEDS: Insulin Lispro (humaLOG) 100 Units/ml Inj SC SCH ×2 (08:35→11:58)
--- NOTE | 2016-10-16 15:43 | CP.PCM.DIS ---
Provider - Provider Date of Admission: 10/09/16 17:33 Attending physician: David Neumann MD Primary care physician: Dr. David Neumann Consults: Endocrine: Dr. Mann Neurology: Dr. Doyle Nephrology: Dr. Monroy Psych: Dr. Grady Time Spent in preparation of Discharge (in minutes): 35 Diagnosis - Discharge Diagnosis (1) Adrenal insufficiency Status: Acute (2) Insulin dependent diabetes mellitus Status: Chronic (3) Abnormal involuntary movements Status: Acute (4) Dyspnea Status: Chronic (5) Sleep apnea Status: Chronic (6) HTN (hypertension) Status: Chronic (7) Hypothyroid Status: Chronic (8) Multiple myeloma Status: Chronic (9) Depression Status: Chronic (10) DVT prophylaxis Status: Acute Hospital Course - Lab Results Lab Results: Most Recent Lab Values WBC 8.4 K/uL (4.8-10.8) 10/13/16 06:20 RBC 4.47 Mil/uL (3.80-5.20) 10/13/16 06:20 Hgb 12.9 g/dL (12.0-16.0) D 10/13/16 06:20 Hct 38.5 % (34.0-47.0) 10/13/16 06:20 MCV 86.2 fl (81.0-99.0) 10/13/16 06:20 MCH 28.9 pg (27.0-31.0) 10/13/16 06:20 MCHC 33.5 g/dL (33.0-37.0) 10/13/16 06:20 RDW 14.7 % (11.5-14.5) H 10/13/16 06:20 Plt Count 330 K/uL (130-400) D 10/13/16 06:20 Sodium 137 mmol/l (132-148) 10/14/16 06:00 Potassium 4.5 MMOL/L (3.6-5.0) 10/14/16 06:00 Chloride 100 mmol/L (98-107) 10/14/16 06:00 Carbon Dioxide 27 mmol/L (22-30) 10/14/16 06:00 Anion Gap 15 (10-20) 10/14/16 06:00 BUN 36 mg/dl (7-17) H 10/14/16 06:00 Creatinine 0.9 mg/dL (0.7-1.2) 10/14/16 06:00 Est GFR ( Amer) > 60 10/14/16 06:00 Est GFR (Non-Af Amer) > 60 10/14/16 06:00 POC Glucose (mg/dL) 180 mg/dL (65-110) H 10/16/16 10:45 Random Glucose 128 mg/dL (65-105) H 10/14/16 06:00 Calcium 9.3 mg/dL (8.4-10.2) 10/14/16 06:00 Magnesium 2.0 MG/DL (1.6-2.3) 10/14/16 06:00 Total Bilirubin 0.4 mg/dl (0.2-1.3) 10/14/16 06:00 AST 18 U/L (14-36) 10/14/16 06:00 ALT 30 U/L (9-52) 10/14/16 06:00 Alkaline Phosphatase 74 U/L (38-126) 10/14/16 06:00 Total Protein 6.5 G/DL (6.3-8.2) 10/14/16 06:00 Albumin 4.0 g/dL (3.5-5.0) 10/14/16 06:00 Globulin 2.6 gm/dL (2.2-3.9) 10/14/16 06:00 Albumin/Globulin Ratio 1.5 (1.0-2.1) 10/14/16 06:00 Thyroxine (T4) 6.31 ug/dl (5.5-11.0) 10/14/16 06:00 TSH 3rd Generation 0.15 mIU/ML (0.46-4.68) L 10/14/16 06:00 Cortisol AM Sample 6.0 ug/dL (4.46-22.7) 10/14/16 06:00 - Hospital Course Hospital Course: 70 year old female with HTN, IDDM type 2, Hypothyroidism, COPD (on home O2), Diastolic CHF grade 1, Pulmonary HTN, Sleep apnea, Multiple myeloma admitted for worsening dyspnea and abnormal involuntary movements, subsequently found to be hyponatremic. Her abilify and lexapro were held initially but have been resumed, Endocrine and Nephrology were consulted for adrenal insufficiency. Patient was started on hydrocortisone 10mg PO qHS and has responded well to treatment. Patients dyspnea is multifactorial and has improved with daily PO lasix 20mg. Neurology started the patient on Cogentin 10mg PO TID, has now been tapered to once daily. The abnormal involuntary movements have slightly improved but persist. Patient feels well and ready to go home. She is in good spirits. Medications: Aripiprazole (Abilify) 5 mg PO DAILY [facility] Aspirin (Ecotrin) 81 mg PO DAILY [facility] Atorvastatin Calcium (Lipitor) 20 mg PO QPM [facility] Benztropine Mesylate (Cogentin) 1 mg PO daily [facility] Buspirone HCl (Buspar) 10 mg PO BID [facility] Cyanocobalamin (Vitamin B12 1000 Mcg/Ml Inj) 1,000 mcg IM DAILY [facility] Dexamethasone (Decadron) 20 mg PO Mo@0900 [facility] Enalapril Maleate (Vasotec) 2.5 mg PO DAILY [facility] Escitalopram Oxalate (Lexapro) 10 mg PO HS [facility] Furosemide (Lasix) 20 mg PO DAILY [facility] Home Med (Riociguat [Adempas]) 1 mg PO TID [facility] Hydrocortisone (Cortef) 10 mg PO HS [facility] Insulin Detemir (Levemir) 14 units SC HS [facility] Levothyroxine Sodium (Synthroid) 75 mcg PO DAILY@0630 [facility] Metformin HCl (Glucophage) 500 mg PO BID [facility] - Date & Time of H&P Date of H&P: 10/10/16 Time of H&P: 12:57 Discharge Exam - Head Exam Head Exam: NORMAL INSPECTION - Eye Exam Eye Exam: Normal appearance - Respiratory Exam Respiratory Exam: NORMAL BREATHING PATTERN, UNREMARKABLE - Cardiovascular Exam Cardiovascular Exam: REGULAR RHYTHM - GI/Abdominal Exam GI & Abdominal Exam: Unremarkable - Extremities Exam Additional comments: no pedal edema - Neurological Exam Neurological exam: Alert, CN II-XII Intact, Oriented x3 - Psychiatric Exam Psychiatric exam: Normal Affect, Normal Mood - Skin Skin Exam: Dry, Intact, Normal Color Discharge Plan - Discharge Medications Prescriptions: Benztropine [Cogentin] 1 mg PO DAILY #30 tab Escitalopram [Lexapro] 10 mg PO HS #30 tab Furosemide [Lasix] 20 mg PO DAILY #30 tab Hydrocortisone [Cortef] 10 mg PO HS #30 tab Insulin Detemir [Levemir] 14 units SC HS #1 vial Levothyroxine [Synthroid] 75 mcg PO DAILY@0630 #30 tab Riociguat [Adempas] 1 mg PO TID #90 - Follow Up Plan Condition: GOOD Additional Instructions: Patient has follow up appointment with Dr. David Neumann on November 16, 2016 at 11:40. Referral to Dr. Irene Mann. Referrals: Irene Mann MD [Medical Doctor] - David Neumann MD [Family Provider] -
--- NOTE | 2016-10-16 22:21 | PN ---
LOCATION: Room #709, [facility]. This is a 70-year-old female with recent overt hypoadrenalism related to suboptimal replacement of oral steroid therapy and is also now being followed closely for metabolic management, both for the adrenal and the diabetic condition as mentioned. Her glycemic levels are fluctuating but much improved at this time and the latest glucose levels have ranged from 151 to 180 mg/dL. Her latest chemistries include a BUN of 36, sodium 137, potassium 4.5, chloride 100, CO2 27, glucose 128, and creatinine 0.9. Her serum cortisol level is 6.0 mcg/dL with a T4 of 6.31 and a TSH of 0.15. This is indicative of the so-called thyroid syndrome, especially with intercurrent steroids, which can cause transient TSH suppression as noted thereof. So, for now, we will continue the same basal and bolus insulin regimen as given with Humalog, given as 10 units subcu t.i.d. before meals and Levemir given as 14 units subcu at bedtime daily as ordered. We will also continue the hydrocortisone given as 10 mg p.o. at bedtime daily as ordered in combination with her once weekly Decadron given as 20 mg every Wednesday morning as ordered. We will obtain serial chemistries and supplement accordingly as needed. We will also obtain serum cortisol levels and titrate the dose regimen accordingly. We will follow with you. Irene Mann MD
== END 2016-10-16 14:45 | disposition home or self-care (01) | DRG 644 ==
LOC: H.TCU 17:33
PROVIDERS: ADMIT Family Medicine; ATTEND Family Medicine
DX: E27.40 Unspecified adrenocortical insufficiency (principal); C90.00 Multiple myeloma not having achieved remission; I11.0 Hypertensive heart disease with heart failure; I50.30 Unspecified diastolic (congestive) heart failure; E87.1 Hypo-osmolality and hyponatremia; E11.42 Type 2 diabetes mellitus with diabetic polyneuropathy; D64.9 Anemia, unspecified; E03.9 Hypothyroidism, unspecified; E11.319 Type 2 diabetes mellitus with unspecified diabetic retinopathy without macular edema; E78.00 Pure hypercholesterolemia, unspecified; G20 Parkinson's disease; G47.30 Sleep apnea, unspecified; I25.10 Atherosclerotic heart disease of native coronary artery without angina pectoris; I27.2 Other secondary pulmonary hypertension; M06.9 Rheumatoid arthritis, unspecified; Z79.4 Long term (current) use of insulin; Z86.711 Personal history of pulmonary embolism; Z87.01 Personal history of pneumonia (recurrent); Z90.49 Acquired absence of other specified parts of digestive tract; Z99.81 Dependence on supplemental oxygen; E11.51 Type 2 diabetes mellitus with diabetic peripheral angiopathy without gangrene

== ENCOUNTER 2017-03-05 14:41 | Observation (INO) | payer MEDICARE, OTHER ==
[2017-03-05 14:41] VITALS: BMI 29.7
--- NOTE | 2017-03-05 14:56 | ED PDOC ---
Arrival/HPI - General Chief Complaint: Cough, Cold, Congestion Time Seen by Provider: 03/05/17 14:52 - History of Present Illness Narrative History of Present Illness (Text): 03/05/17 14:55 Patient is a 71 y/o F on home O2 secondary to COPD, presenting with productive cough with green sputum x 1 week. She reports using robitussin with no relief. She reports that she called her PMD today who told her to come to ED for further evaluation. Reports baseline shortness of breath. Denies chest pain. Denies fever. PMD: Augustin Neumann Past Medical History - Infectious Disease Hx of Infectious Diseases: None - Tetanus Immunization Tetanus Immunization: Unknown - Cardiac Hx Congestive Heart Failure: Yes Hx Hypertension: Yes - Pulmonary Hx Asthma: Yes Hx Chronic Obstructive Pulmonary Disease (COPD): Yes Hx Emphysema: Yes Hx Pneumonia: Yes Hx Pulmonary Embolism: Yes Hx Sleep Apnea: Yes - Neurological Hx Migraine: Yes - HEENT Hx HEENT Disorder: Yes Other/Comment: Uses Glasses - Renal Hx Renal Disorder: No - Endocrine/Metabolic Hx Hypothyroidism: Yes - Hematological/Oncological Hx Anemia: Yes - Integumentary Hx Dermatological Disorder: No - Musculoskeletal/Rheumatological Hx Arthritis: Yes Hx Fractures: Yes Hx Rheumatoid Arthritis: Yes - Gastrointestinal Hx Gastrointestinal Disorders: No - Genitourinary/Gynecological Hx Genitourinary Disorders: Yes Hx Incontinence: Yes Other/Comment: Urinary frequency - Psychiatric Hx Anxiety: Yes Hx Depression: Yes Hx Substance Use: No - Surgical History Hx Cholecystectomy: Yes Hx Tonsillectomy: Yes - Anesthesia Hx Anesthesia: Yes Hx Anesthesia Reactions: Yes (Resp. Distress) - Suicidal Assessment Feels Threatened In Home Enviroment: No Family/Social History Family/Social History: No Known Family HX Smoking Status: Never Smoked Hx Alcohol Use: No Hx Substance Use: No Allergies/Home Meds Allergies/Adverse Reactions: Allergies codeine Adverse Reaction (Verified 03/05/17 14:46) syncope, diaphoresis Home Medications: Home Meds Medication Instructions Recorded Confirmed ARIPiprazole [Abilify] 5 mg PO DAILY 03/05/17 03/05/17 Aspirin [Ecotrin] 81 mg PO DAILY 03/05/17 03/05/17 Atorvastatin [Lipitor] 20 mg PO HS 03/05/17 03/05/17 Benztropine [Cogentin] 1 mg PO HS 03/05/17 03/05/17 DULoxetine [Cymbalta] 20 mg PO Q12H 03/05/17 03/05/17 Dexamethasone [Decadron] 20 mg PO ASDIR 03/05/17 03/05/17 Enalapril Maleate [Vasotec] 2.5 mg PO DAILY 03/05/17 03/05/17 Escitalopram [Lexapro] 20 mg PO DAILY 03/05/17 03/05/17 Furosemide [Lasix] 20 mg PO Q48H 03/05/17 03/05/17 Hydrocortisone [Cortef] 10 mg PO HS 03/05/17 03/05/17 Insulin Glargine, Recombina 14 unit SC HS 03/05/17 03/05/17 [Lantus] Insulin Lispro [humALOG] 5 unit SC TID 03/05/17 03/05/17 Levothyroxine [Synthroid] 75 mcg PO DAILY 03/05/17 03/05/17 Omeprazole [Omeprazole] 20 mg PO DAILY 03/05/17 03/05/17 Ranitidine HCl [Zantac] 150 mg PO QAM 03/05/17 03/05/17 Ranitidine HCl [Zantac] 300 mg PO HS 03/05/17 03/05/17 Riociguat [Adempas] 2 mg PO TID 03/05/17 03/05/17 busPIRone [Buspar] 10 mg PO Q12H 03/05/17 03/05/17 clonazePAM [Klonopin] 0.5 mg PO DAILY PRN 03/05/17 03/05/17 metFORMIN [glucOPHAGE] 500 mg PO BID 03/05/17 03/05/17 Review of Systems - Review of Systems Constitutional: absent: Fevers Respiratory: SOB, Cough, Sputum, Wheezing Cardiovascular: absent: Chest Pain Gastrointestinal: absent: Abdominal Pain, Constipation, Diarrhea, Nausea Genitourinary Female: absent: Dysuria Skin: absent: Rash Neurological: absent: Headache, Dizziness Physical Exam Vital Signs Temp Pulse Resp BP Pulse Ox 03/05/17 14:46 96.8 F L 96 H 18 150/81 97 Temperature: Afebrile Blood Pressure: Normal Pulse: Regular Respiratory Rate: Normal Appearance: Positive for: Well-Appearing, Non-Toxic, Comfortable Pain Distress: None Mental Status: Positive for: Alert and Oriented X 3 - Systems Exam Head: Present: Atraumatic, Normocephalic Pupils: Present: PERRL Extroacular Muscles: Present: EOMI Conjunctiva: Present: Normal Mouth: Present: Moist Mucous Membranes Neck: Present: Normal Range of Motion Respiratory/Chest: Present: Clear to Auscultation, Good Air Exchange. No: Respiratory Distress, Accessory Muscle Use Cardiovascular: Present: Regular Rate and Rhythm, Normal S1, S2. No: Murmurs Abdomen: No: Tenderness, Distention Upper Extremity: Present: Normal Inspection Lower Extremity: Present: Normal Inspection Neurological: Present: GCS=15, CN II-XII Intact, Speech Normal Medical Decision Making ED Course and Treatment: 03/05/17 15:15 FINDINGS: LUNGS: Borderline atelectasis or infiltrates in the right base medially though this is probably confluence of vascular anatomy with airway is. No left-sided infiltrate. No pleural effusion or pneumothorax bilaterally. Stable cardiomegaly is noted. No definite pulmonary vascular derangement appreciated. OSSEOUS STRUCTURES: No significant abnormalities. VISUALIZED UPPER ABDOMEN: Normal. OTHER FINDINGS: None. IMPRESSION: Questionable medial basilar atelectasis or infiltrate right base. Cardiomegaly appears stable and the left lung is clear. 03/05/17 16:09 Labs reviewed and lactate WNL. Due to score 2 on curb 65 and home O2 requirement, will transfer to observation for pna with IV antibiotics. Dr Augustin Neumann's patients are admitted by clinic. Spoke to clinic resident and will transfer to tele observation for pna under Dr. Riggins - Lab Interpretations Lab Results: 03/05/17 15:38 03/05/17 15:38 Lab Results 03/05/17 15:38: Influenza Typ A,B (EIA) Negative for flu a/b 03/05/17 15:38: Sodium 140, Chloride 107, Potassium 4.4, Carbon Dioxide 26, Anion Gap 11, BUN 22 H, Creatinine 0.8, Est GFR ( Amer) > 60, Est GFR ( Non-Af Amer) > 60, Random Glucose 120 H, Calcium 9.1, Total Bilirubin 0.5, AST 21, ALT 31, Alkaline Phosphatase 90, Total Protein 7.2, Albumin 4.0, Globulin 3.2, Albumin/Globulin Ratio 1.2 03/05/17 15:38: WBC 7.4, RBC 4.28, Hgb 12.4, Hct 38.2, MCV 89.2 D, MCH 29.1, MCHC 32.6 L, RDW 16.4 H, Plt Count 223, MPV 8.7, Neut % (Auto) 67.0, Lymph % ( Auto) 20.4, [place] % (Auto) 10.8 H, Eos % (Auto) 1.4, Baso % (Auto) 0.4, Neut # 5.0, Lymph # 1.5, [place] # 0.8, Eos # 0.1, Baso # 0.0 03/05/17 15:30: pO2 19 L, VBG pH 7.36, VBG pCO2 53, VBG HCO3 25.5, VBG Total CO2 31.5 H, VBG O2 Sat (Calc) 27.6 L, VBG Base Excess 3.2 H, VBG Potassium 4.2, Sodium 139.0, Chloride 110.0 H, Glucose 122 H, Lactate 0.9, FiO2 21.0, Venous Blood Potassium 4.2 - RAD Interpretation Radiology Orders: 03/05/17 14:53 CHEST TWO VIEWS (PA/LAT) [RAD] Stat - Medication Orders Current Medication Orders: Azithromycin 500 mg/ Sodium (Chloride) 250 mls @ 250 mls/hr IVPB ONCE ONE PRN Reason: Protocol Stop: 03/05/17 16:29 Discontinued Medications Ceftriaxone Sodium (Rocephin Iv 1 Gm Duplex) 50 mls @ 50 mls/hr IVPB STAT STA PRN Reason: Protocol Stop: 03/05/17 16:17 Last Admin: 03/05/17 16:06 Dose: 50 mls/hr Comments: eMAR Start Stop Document 03/05/17 16:06 [email or web address] (Rec: 03/05/17 16:06 [id number]) Intravenous Solution Start Date 03/05/17 Start Time 16:06 End Date 03/05/17 End time 17:06 Total Infusion Time 60 Curb-65 Severity Score - CURB-65 Severity Score Confusion: No Bun >19mg/dl (>7mmol/L): Yes Respiratory Rate greater than/equal to 30: No Systolic BP <90 or Diastolic BP less than/equal 60mmHg: No Age >64: Yes Curb-65 Score: 2 Percentage 30-day mortality: 6.8% Disposition/Present on Arrival - Present on Arrival Any Indicators Present on Arrival: No History of DVT/PE: No History of Uncontrolled Diabetes: No Urinary Catheter: No - Disposition Have Diagnosis and Disposition been Completed?: Yes Diagnosis: Pneumonia, Pulmonary hypertension, COPD (chronic obstructive pulmonary disease) , Oxygen dependent Disposition: HOSPITALIZED Disposition Time: 16:16 Patient Plan: Observation Patient Problems: Current Active Problems Problem Status Onset Pneumonia Acute Condition: FAIR
--- NOTE | 2017-03-05 15:15 | RAD ---
HISTORY: productive cough COMPARISON: Chest radiographs 10/08/2016. TECHNIQUE: Chest PA and lateral FINDINGS: LUNGS: Borderline atelectasis or infiltrates in the right base medially though this is probably confluence of vascular anatomy with airway is. No left-sided infiltrate. No pleural effusion or pneumothorax bilaterally. Stable cardiomegaly is noted. No definite pulmonary vascular derangement appreciated. OSSEOUS STRUCTURES: No significant abnormalities. VISUALIZED UPPER ABDOMEN: Normal. OTHER FINDINGS: None. IMPRESSION: Questionable medial basilar atelectasis or infiltrate right base. Cardiomegaly appears stable and the left lung is clear.
[2017-03-05] MEDS ORDERED: cefTRIAXone IV 1 gm in Dextros 50 ML IVPB STA (15:18)
[2017-03-05] MEDS ORDERED: Azithromycin 500 MG in Sodium Chloride 0.9% 250 ML IVPB ONE (15:30)
[2017-03-05 15:41] LABS: VENOUS BLOOD GAS BASE EXCESS 3.2 mmol/L (0.0-2.0); VENOUS BLOOD GAS PCO2 53 mmHg (40-60); VENOUS BLOOD GAS PO2 19 mm/Hg (30-55); VENOUS BLOOD PH 7.36 (7.32-7.43)
[2017-03-05 15:47] LABS: BASO % 0.4 % (0.0-2.0); EOS # 0.1 K/uL (0.0-0.7); EOS % 1.4 % (0.0-4.0); HEMOGLOBIN 12.4 g/dL (12.0-16.0); LYMPH # 1.5 K/uL (1.0-4.3); LYMPH % 20.4 % (20.0-40.0); MEAN CELL VOLUME 89.2 fl (81.0-99.0); MEAN CORPUSCULAR HEMOGLOBIN 29.1 pg (27.0-31.0); MEAN CORPUSCULAR HGB CONC 32.6 g/dL (33.0-37.0); MEAN PLATELET VOLUME 8.7 fl (7.2-11.7); MONO # 0.8 K/uL (0.0-0.8); MONO % 10.8 % (0.0-10.0); NRBC % 0.1 % (0.0-0.0); RBC 4.28 Mil/uL (3.80-5.20); RED CELL DISTRIBUTION WIDTH 16.4 % (11.5-14.5); WHITE BLOOD COUNT 7.4 K/uL (4.8-10.8)
[2017-03-05 16:05] LABS: ALB/GLOB RATIO 1.2 (1.0-2.1); ALT/SGPT 31 U/L (9-52); AST/SGOT 21 U/L (14-36); BLOOD UREA NITROGEN 22 mg/dl (7-17); CALCIUM 9.1 mg/dL (8.4-10.2); GFR AFRICAN-AMERICAN > 60; GFR NON-AFRICAN AMERICAN > 60
[2017-03-05] MEDS ORDERED: cefTRIAXone IV 1 gm in Dextros 50 ML IVPB ONE (16:05)
--- NOTE | 2017-03-05 17:57 | CP.PCM.HP ---
History of Present Illness - History of Present Illness History of Present Illness: 71 YO F w/ PMH of DM2, HTN, , Multiple Myeloma, Pulm HTN, COPD on home oxygen presents to the clinic with a a cough over the last week. Cough is productive in nature, greenish in color, denies any blood. Has been using nebulizer, inhaler, and Robitussin DM at home, but has not relieved the patients symptoms. Denies any fever, chills, nausea or vomiting. Patient denies any worsening of SOB compared to her baseline. She has been using her nebulizer once a day and her inhaler two times a day. She has had an exposure to sick contacts. Patient was last seen by her PMD on 02/10/17. PMH: DM2, HTN, COPD, Multiple Myeloma, Pulmonary hypertension, Depression, PE: w / IVC filter placed 2 years ago in 2014 FH: Denies family history SH: Denies smoking and alcohol Allergies: Codine sulfate: dizziness ER course: CBC: No increase in WBC CMP: BUN:22 Chest X Ray: Borderline atelectasis or infiltrates in the right base medially . VBG: PH: 7.36, CO2:53, HCO3: 25.5. Lactate:WNL Azithromycin x 1 dose Ceftriaxone x1 dose CURB 65 with score of 2 - Flu negative PMD: David Neumnan Next of Kin: Daughter Full code Present on Admission - Present on Admission Any Indicators Present on Admission: No History of DVT/PE: No Review of Systems - Review of Systems All systems: reviewed and no additional remarkable complaints except Past Patient History - Infectious Disease Hx of Infectious Diseases: None - Tetanus Immunizations Tetanus Immunization: Unknown - Past Medical History & Family History Past Medical History?: Yes - Past Social History Smoking Status: Never Smoked - CARDIAC Hx Congestive Heart Failure: Yes Hx Hypertension: Yes - PULMONARY Hx Asthma: Yes Hx Chronic Obstructive Pulmonary Disease (COPD): Yes Hx Emphysema: Yes Hx Pneumonia: Yes Hx Pulmonary Embolism: Yes Hx Sleep Apnea: Yes - NEUROLOGICAL Hx Migraine: Yes - HEENT Hx HEENT Problems: Yes Other/Comment: Uses Glasses - RENAL Hx Chronic Kidney Disease: No - ENDOCRINE/METABOLIC Hx Hypothyroidism: Yes - HEMATOLOGICAL/ONCOLOGICAL Hx Anemia: Yes - INTEGUMENTARY Hx Dermatological Problems: No - MUSCULOSKELETAL/RHEUMATOLOGICAL Hx Arthritis: Yes Hx Fractures: Yes Hx Rheumatoid Arthritis: Yes - GASTROINTESTINAL Hx Gastrointestinal Disorders: No - GENITOURINARY/GYNECOLOGICAL Hx Genitourinary Disorders: Yes Hx Incontinence: Yes Other/Comment: Urinary frequency - PSYCHIATRIC Hx Anxiety: Yes Hx Depression: Yes Hx Substance Use: No - SURGICAL HISTORY Hx Cholecystectomy: Yes Hx Tonsillectomy: Yes - ANESTHESIA Hx Anesthesia: Yes Hx Anesthesia Reactions: Yes (Resp. Distress) Meds Allergies/Adverse Reactions: Allergies Allergy/AdvReac Type Severity Reaction Status Date / Time codeine AdvReac syncope, Verified 03/05/17 14:46 diaphoresis Physical Exam - Constitutional Appears: No Acute Distress - Head Exam Head Exam: NORMAL INSPECTION - Respiratory Exam Respiratory Exam: absent: Rales, Wheezes Additional comments: Decreased breath sounds at base of lungs - Cardiovascular Exam Cardiovascular Exam: REGULAR RHYTHM, +S1, +S2 - GI/Abdominal Exam GI & Abdominal Exam: Normal Bowel Sounds, Soft. absent: Tenderness - Extremities Exam Extremities exam: Negative for: pedal edema - Neurological Exam Neurological exam: Alert, CN II-XII Intact, Oriented x3 - Skin Skin Exam: Normal Color, Warm Results - Vital Signs Recent Vital Signs: Last Vital Signs Temp 96.8 F L 03/05/17 14:46 Pulse 96 H 03/05/17 14:46 Resp 18 03/05/17 14:46 BP 150/81 03/05/17 14:46 Pulse Ox 97 03/05/17 14:46 - Labs Result Diagrams: 03/05/17 15:38 03/05/17 15:38 Labs: Laboratory Results - last 24 hr 03/05/17 03/05/17 03/05/17 15:30 15:38 15:38 WBC 7.4 RBC 4.28 Hgb 12.4 Hct 38.2 MCV 89.2 D MCH 29.1 MCHC 32.6 L RDW 16.4 H Plt Count 223 MPV 8.7 Neut % (Auto) 67.0 Lymph % (Auto) 20.4 [place] % (Auto) 10.8 H Eos % (Auto) 1.4 Baso % (Auto) 0.4 Neut # 5.0 Lymph # 1.5 [place] # 0.8 Eos # 0.1 Baso # 0.0 pO2 19 L VBG pH 7.36 VBG pCO2 53 VBG HCO3 25.5 VBG Total CO2 31.5 H VBG O2 Sat (Calc) 27.6 L VBG Base Excess 3.2 H VBG Potassium 4.2 Sodium 139.0 140 Chloride 110.0 H 107 Glucose 122 H Lactate 0.9 FiO2 21.0 Potassium 4.4 Carbon Dioxide 26 Anion Gap 11 BUN 22 H Creatinine 0.8 Est GFR ( Amer) > 60 Est GFR (Non-Af Amer) > 60 Random Glucose 120 H Calcium 9.1 Total Bilirubin 0.5 AST 21 ALT 31 Alkaline Phosphatase 90 Total Protein 7.2 Albumin 4.0 Globulin 3.2 Albumin/Globulin Ratio 1.2 Venous Blood Potassium 4.2 Influenza Typ A,B (EIA) 03/05/17 15:38 WBC RBC Hgb Hct MCV MCH MCHC RDW Plt Count MPV Neut % (Auto) Lymph % (Auto) [place] % (Auto) Eos % (Auto) Baso % (Auto) Neut # Lymph # [place] # Eos # Baso # pO2 VBG pH VBG pCO2 VBG HCO3 VBG Total CO2 VBG O2 Sat (Calc) VBG Base Excess VBG Potassium Sodium Chloride Glucose Lactate FiO2 Potassium Carbon Dioxide Anion Gap BUN Creatinine Est GFR ( Amer) Est GFR (Non-Af Amer) Random Glucose Calcium Total Bilirubin AST ALT Alkaline Phosphatase Total Protein Albumin Globulin Albumin/Globulin Ratio Venous Blood Potassium Influenza Typ A,B (EIA) Negative for flu a/b Assessment & Plan - Assessment and Plan (Free Text) Assessment: 71 YO F who presented with productive cough and SOB for the past week presents to the ER since symtpms were not resolving. On chest X ray in ER showed medial basilar atelectasis or infiltrate at the right base. 1) Community acquired pneumonia - No increase in WBC - Afebrile - Will continue w/ IV antibiotics : Azithromycin and Ceftriaxone - f/u with sputum culture, and f/u with morning CMP - F/U with morning ABG 2) COPD exacerbation secondary to URI - Nebulized scheduled albuterol - Prednisone 40 mg PO Daily - Will continue w/ IV antibiotics : Azithromycin and Ceftriaxone 3) Pulm HTN - Continue Adempas 4. Adrenal insufficiency - Dexamethasone 4mg once a week 5) DM2 - Metformin 500mg BID - Levemir 10 units SC HS - Levemir 14 units SC QAM - Humalog 6) Hypothyroidism - Levothyroxine 75mcg 7)HTN - Enalapril 2.5mg PO 8) Depression - C/W home meds 9)Sleep apnea -CPAP 8) DVT prophylaxis - 40 mg Lovenox SC
[2017-03-05] MEDS ORDERED: Albuterol-Ipratrop 3 mg / 0.5 (3 ml) UD INH SCH (20:00)
[2017-03-05] MEDS ORDERED: Insulin Detemir 100 Units/ml Inj SC SCH ×2 (22:00)
[2017-03-05] MEDS ORDERED: INSULIN GLARGINE RECOMBINA 14 UNIT SC SCH (22:00)
[2017-03-05] MEDS ORDERED: Levalbuterol 0.63 MG/3 ML Inhal Soln UD INH SCH (22:00)
[2017-03-05] MEDS: Insulin Lispro (humaLOG) 100 Units/ml Inj SC SCH (23:16)
[2017-03-06] MEDS: Levalbuterol 0.63 MG/3 ML Inhal Soln UD INH SCH ×3 (01:00→13:01)
[2017-03-06] MEDS ORDERED: Levothyroxine 75 MCG TAB PO SCH (06:30)
[2017-03-06] MEDS: Insulin Lispro (humaLOG) 100 Units/ml Inj SC SCH ×2 (07:01→12:16)
[2017-03-06 07:11] LABS: BASO % 0.2 % (0.0-2.0); EOS # 0.1 K/uL (0.0-0.7); EOS % 2.4 % (0.0-4.0); HEMOGLOBIN 12.1 g/dL (12.0-16.0); LYMPH # 1.3 K/uL (1.0-4.3); LYMPH % 23.4 % (20.0-40.0); MEAN CELL VOLUME 88.2 fl (81.0-99.0); MEAN CORPUSCULAR HGB CONC 32.9 g/dL (33.0-37.0); MEAN PLATELET VOLUME 8.9 fl (7.2-11.7); MONO # 0.8 K/uL (0.0-0.8); MONO % 14.1 % (0.0-10.0); NEUT # 3.2 K/uL (1.8-7.0); NEUT % 59.9 % (50.0-75.0); NRBC % 0.1 % (0.0-0.0); RBC 4.16 Mil/uL (3.80-5.20); RED CELL DISTRIBUTION WIDTH 16.1 % (11.5-14.5); WHITE BLOOD COUNT 5.4 K/uL (4.8-10.8)
[2017-03-06 07:41] VITALS: BP 116/78; PULSE 80; RESP 18; TEMP 97.7; O2SAT 97
[2017-03-06] MEDS ORDERED: Enoxaparin 40 mg Syringe SC SCH (09:00)
[2017-03-06] MEDS ORDERED: Insulin Lispro (humaLOG) 100 Units/ml Inj SC SCH (09:00)
[2017-03-06] MEDS ORDERED: Azithromycin 500 MG in Sodium Chloride 0.9% 250 ML IVPB SCH (09:00)
[2017-03-06] MEDS ORDERED: Insulin Detemir 100 Units/ml Inj SC SCH (09:00)
--- NOTE | 2017-03-06 19:23 | CP.PCM.DIS ---
Provider - Provider Date of Admission: 03/05/17 16:13 Attending physician: Nitza Riggins MD Time Spent in preparation of Discharge (in minutes): 30 Diagnosis - Discharge Diagnosis (1) Pneumonia Status: Acute Hospital Course - Lab Results Lab Results: Micro Results 03/05/17 15:38 Blood-Venous Blood Culture - Preliminary NO GROWTH AFTER 24 HOURS Most Recent Lab Values WBC 5.4 K/uL (4.8-10.8) 03/06/17 05:20 RBC 4.16 Mil/uL (3.80-5.20) 03/06/17 05:20 Hgb 12.1 g/dL (12.0-16.0) 03/06/17 05:20 Hct 36.7 % (34.0-47.0) 03/06/17 05:20 MCV 88.2 fl (81.0-99.0) 03/06/17 05:20 MCH 29.0 pg (27.0-31.0) 03/06/17 05:20 MCHC 32.9 g/dL (33.0-37.0) L 03/06/17 05:20 RDW 16.1 % (11.5-14.5) H 03/06/17 05:20 Plt Count 221 K/uL (130-400) 03/06/17 05:20 MPV 8.9 fl (7.2-11.7) 03/06/17 05:20 Neut % (Auto) 59.9 % (50.0-75.0) 03/06/17 05:20 Lymph % (Auto) 23.4 % (20.0-40.0) 03/06/17 05:20 [place] % (Auto) 14.1 % (0.0-10.0) H 03/06/17 05:20 Eos % (Auto) 2.4 % (0.0-4.0) 03/06/17 05:20 Baso % (Auto) 0.2 % (0.0-2.0) 03/06/17 05:20 Neut # 3.2 K/uL (1.8-7.0) 03/06/17 05:20 Lymph # 1.3 K/uL (1.0-4.3) 03/06/17 05:20 [place] # 0.8 K/uL (0.0-0.8) 03/06/17 05:20 Eos # 0.1 K/uL (0.0-0.7) 03/06/17 05:20 Baso # 0.0 K/uL (0.0-0.2) 03/06/17 05:20 pO2 19 mm/Hg (30-55) L 03/05/17 15:30 VBG pH 7.36 (7.32-7.43) 03/05/17 15:30 VBG pCO2 53 mmHg (40-60) 03/05/17 15:30 VBG HCO3 25.5 mmol/L 03/05/17 15:30 VBG Total CO2 31.5 mmol/L (22-28) H 03/05/17 15:30 VBG O2 Sat (Calc) 27.6 % (40-65) L 03/05/17 15:30 VBG Base Excess 3.2 mmol/L (0.0-2.0) H 03/05/17 15:30 VBG Potassium 4.2 mmol/L (3.6-5.2) 03/05/17 15:30 Sodium 139.0 mmol/L (132-148) 03/05/17 15:30 Chloride 110.0 mmol/L (98-107) H 03/05/17 15:30 Glucose 122 mg/dL (65-105) H 03/05/17 15:30 Lactate 0.9 mmol/L (0.7-2.1) 03/05/17 15:30 FiO2 21.0 % 03/05/17 15:30 Sodium 140 mmol/l (132-148) 03/05/17 15:38 Potassium 4.4 MMOL/L (3.6-5.0) 03/05/17 15:38 Chloride 107 mmol/L (98-107) 03/05/17 15:38 Carbon Dioxide 26 mmol/L (22-30) 03/05/17 15:38 Anion Gap 11 (10-20) 03/05/17 15:38 BUN 22 mg/dl (7-17) H 03/05/17 15:38 Creatinine 0.8 mg/dl (0.7-1.2) 03/05/17 15:38 Est GFR ( Amer) > 60 03/05/17 15:38 Est GFR (Non-Af Amer) > 60 03/05/17 15:38 POC Glucose (mg/dL) 150 mg/dL (65-110) H 03/06/17 10:57 Random Glucose 120 mg/dL (65-105) H 03/05/17 15:38 Calcium 9.1 mg/dL (8.4-10.2) 03/05/17 15:38 Total Bilirubin 0.5 mg/dl (0.2-1.3) 03/05/17 15:38 AST 21 U/L (14-36) 03/05/17 15:38 ALT 31 U/L (9-52) 03/05/17 15:38 Alkaline Phosphatase 90 U/L (38-126) 03/05/17 15:38 Total Protein 7.2 G/DL (6.3-8.2) 03/05/17 15:38 Albumin 4.0 g/dL (3.5-5.0) 03/05/17 15:38 Globulin 3.2 gm/dL (2.2-3.9) 03/05/17 15:38 Albumin/Globulin Ratio 1.2 (1.0-2.1) 03/05/17 15:38 Venous Blood Potassium 4.2 mmol/L (3.6-5.2) 03/05/17 15:30 Influenza Typ A,B (EIA) Negative for flu a/b (NEGATIVE) 03/05/17 15:38 - Hospital Course Hospital Course: 71 YO F w/ PMH of DM2, HTN, , Multiple Myeloma, Pulm HTN, COPD was admitted for worsening productive cough, greenish in color and SOB. Patient had failed outpatient managment, On chest x ray was noted to have a infiltrate in the right base medially. Patient was started in IV antiibiotics and was being given scheduled nebulizer treatments. Patient has shown improvement and has been doing well. She has remained afebrile duing her stay. She has a good support system and is in good spirts to return back home. Script has been given for Levoquin 500 mg PO daily and advised to continue treatment with nebulizer at home C/W home meds: Aripiprazole Asprin 81mg Lipitor 20 mg HS Cogentin 1mg PO HS Buspar 10 mg PO Q12 Klonopin .5 mg PO Daily Decadron 20 mg PO weekly Cymbalta 20 mg PO Q12 Vasotec 2.5 mg PO daily Lexopro 20 mg PO daily LAsix 20 mg PO daily Lasix 20mg PO Q48 Lantas 14 unit SC HS Lispro 5 units SC TUD Levaquin 500 PO daily Synthroid 75 mcg Metformin 300 PO BID Adempas 2mg PO TID Discharge Exam - Head Exam Head Exam: NORMAL INSPECTION - Respiratory Exam Respiratory Exam: NORMAL BREATHING PATTERN. absent: Respiratory Distress Additional comments: decreased breath sounds at bases b/l - Cardiovascular Exam Cardiovascular Exam: REGULAR RHYTHM, +S1, +S2 - GI/Abdominal Exam GI & Abdominal Exam: Normal Bowel Sounds, Soft. absent: Tenderness - Neurological Exam Neurological exam: Alert, CN II-XII Intact, Oriented x3 - Skin Skin Exam: Normal Color, Warm Discharge Plan - Discharge Medications Prescriptions: Levofloxacin [Levaquin] 500 mg PO DAILY #5 tablet - Follow Up Plan Condition: GOOD Disposition: HOME/ ROUTINE Instructions: Pneumonia (DC) Additional Instructions: Follow up with Dr. Neumann in one week Please return to ER if symptoms reoccur or worsen
== END 2017-03-06 16:15 | disposition home or self-care (01) ==
LOC: H.ER 14:41 → H.ERHOLD 16:13 → H.MEDSURG1 20:42
PROVIDERS: ADMIT Family Medicine; ATTEND Family Medicine
DX: J44.0 Chronic obstructive pulmonary disease with (acute) lower respiratory infection (principal); C90.00 Multiple myeloma not having achieved remission; E03.9 Hypothyroidism, unspecified; E11.9 Type 2 diabetes mellitus without complications; E27.40 Unspecified adrenocortical insufficiency; F32.9 Major depressive disorder, single episode, unspecified; G47.30 Sleep apnea, unspecified; I11.0 Hypertensive heart disease with heart failure; I27.20 Pulmonary hypertension, unspecified; I50.9 Heart failure, unspecified; J06.9 Acute upper respiratory infection, unspecified; J18.9 Pneumonia, unspecified organism; J44.1 Chronic obstructive pulmonary disease with (acute) exacerbation; J98.11 Atelectasis; M06.9 Rheumatoid arthritis, unspecified; Z79.4 Long term (current) use of insulin; Z79.82 Long term (current) use of aspirin; Z79.899 Other long term (current) drug therapy; Z86.711 Personal history of pulmonary embolism; Z87.01 Personal history of pneumonia (recurrent); Z90.49 Acquired absence of other specified parts of digestive tract; Z99.81 Dependence on supplemental oxygen; D64.9 Anemia, unspecified; F41.9 Anxiety disorder, unspecified; G43.909 Migraine, unspecified, not intractable, without status migrainosus; M19.90 Unspecified osteoarthritis, unspecified site; R35.0 Frequency of micturition
CPT/HCPCS: 36415; 71020; 80053; 82803; 82948; 84145; 85025; 87040; 87804; 94640; 96365; 96366; 96367; 96368; 96372; 99283; G0378; J0456; J0696; J1650; J7050

== ENCOUNTER 2017-05-11 10:08 | Inpatient (IN) | payer MEDICARE, OTHER ==
[2017-05-11 10:09] VITALS: BMI 29.7
--- NOTE | 2017-05-11 10:43 | ED PDOC ---
HPI: General Adult Time Seen by Provider: 05/11/17 10:37 Chief Complaint (Nursing): Hip Pain Chief Complaint (Provider): left hip pain/leg swelling History Per: Patient (71 y/o female h/o DM/HTN/Multiple Myleoma/COPD on 2 liters O2 NC here with left hip pain radiating to leg. Has noted increased swelling in left thigh. Spoke with pmd and advised to come to ED last night for xrys. Denies any falls. Has ankle brace left leg for h/o fx. Currently in remission with multiple myeloma.) Past Medical History Reviewed: Historical Data, Nursing Documentation, Vital Signs Vital Signs: Last Vital Signs Temp 98 F 05/11/17 10:29 Pulse 103 H 05/11/17 10:29 Resp 18 05/11/17 10:29 BP 138/71 05/11/17 10:29 Pulse Ox 97 05/11/17 14:17 - Medical History PMH: Anemia, Anxiety, Arthritis, Asthma, CAD, CHF, COPD, Depression, Diabetes, Deep Vein Thrombosis, Emphysema, Fibromyalgia, Fractures, GERD, HTN, Hypercholesterolemia, Hypothyroidism, Migraine, Parkinson's Disease, Pneumonia, Pulmonary Embolism, Rheumatoid Arthritis, Sleep Apnea Denies: HIV, Chronic Kidney Disease - Surgical History Surgical History: Cholecystectomy, Endoscopy, Tonsillectomy - Family History Family History: States: Diabetes - Home Medications Home Medications: Ambulatory Orders Medication Instructions Recorded Aspirin [Ecotrin] 81 mg PO DAILY 03/05/17 Atorvastatin [Lipitor] 20 mg PO HS 03/05/17 DULoxetine [Cymbalta] 20 mg PO Q12H 03/05/17 Dexamethasone [Decadron] 20 mg PO ASDIR 03/05/17 Enalapril Maleate [Vasotec] 2.5 mg PO DAILY 03/05/17 Furosemide [Lasix] 20 mg PO Q48H 03/05/17 Insulin Glargine, Recombina 14 unit SC HS 03/05/17 [Lantus] Insulin Lispro [humALOG] 5 unit SC TID 03/05/17 Levothyroxine [Synthroid] 75 mcg PO DAILY 03/05/17 Riociguat [Adempas] 2 mg PO TID 03/05/17 busPIRone [Buspar] 10 mg PO Q12H 03/05/17 clonazePAM [Klonopin] 0.5 mg PO DAILY PRN 03/05/17 metFORMIN [glucOPHAGE] 500 mg PO BID 03/05/17 ARIPiprazole [Abilify] 10 mg PO HS 05/11/17 Escitalopram [Lexapro] 10 mg PO DAILY 05/11/17 Hydrocortisone [Cortef] 10 mg PO HS 05/11/17 Naproxen [Naproxen] 375 mg PO Q12 PRN 05/11/17 Omeprazole [Omeprazole] 20 mg PO DAILY 05/11/17 Ranitidine HCl [Zantac] 150 mg PO DAILY 05/11/17 Ranitidine HCl [Zantac] 300 mg PO HS 05/11/17 - Allergies Allergies/Adverse Reactions: Allergies Allergy/AdvReac Type Severity Reaction Status Date / Time codeine AdvReac syncope, Verified 05/11/17 10:29 diaphoresis Review of Systems ROS Statement: Except As Marked, All Systems Reviewed And Found Negative Musculoskeletal: Positive for: Leg Pain Physical Exam - Reviewed Nursing Documentation Reviewed: Yes Vital Signs Reviewed: Yes - Physical Exam Appears: Positive for: Well, Non-toxic, No Acute Distress Head Exam: Positive for: ATRAUMATIC, NORMAL INSPECTION, NORMOCEPHALIC Skin: Positive for: Normal Color, Warm, DRY Eye Exam: Positive for: EOMI, Normal appearance, PERRL ENT: Positive for: Normal ENT Inspection Neck: Positive for: Normal, Painless ROM Cardiovascular/Chest: Positive for: Regular Rate, Rhythm Respiratory: Positive for: CNT, Normal Breath Sounds Gastrointestinal/Abdominal: Positive for: Normal Exam, Bowel Sounds, Soft Back: Positive for: Normal Inspection Extremity: Positive for: Normal ROM, Tenderness (LEFT HIP TENDERNESS/LEFT THIGH TENDERNESS/ TENDER ANTERIOR LEG), Swelling (1+ EDEMA BILATERAL LOWER EXTREMITIES. ), Other (KNEE: MILD EFFUSION NOTED. NO ERYTHEMA. EXAM LIMITED DUE TO GENERALIZED PAIN.) Neurologic/Psych: Positive for: Alert, Oriented - Laboratory Results Result Diagrams: 05/11/17 11:05 05/11/17 11:05 - ECG O2 Sat by Pulse Oximetry: 97 - Progress ED Course And Treament: MORPHINE 4MG IV X 1 DOSE ZOFRAN 4 MG I VX 1 DOSE duplex left leg: neg for dvt Xry of tib fib left: no acute injury noted xry of hip: no acute injury noted xry of knee: no acute injury noted CT HIP: FINDINGS: Expansile, lytic lesion anterior wall of the acetabulum with pathologic fracture. Intramedullary lesion with a lytic components inter trochanteric region and proximal shaft left femur. Incompletely visualize lytic disease medial aspect left iliac bone. IMPRESSION: Pathologic fracture through the anterior wall of the left acetabulum. Additional metastatic lesions, lytic noted within the proximal left femur and medial aspect of the left iliac bone. . Case d/w Dr. David Neumann d/w family specialist. admit to [facility] Disposition - Clinical Impression Clinical Impression: Pathologic fracture of acetabulum, Hip fracture, left - Patient ED Disposition Is Patient to be Admitted: Yes - Disposition Disposition Time: 14:17 Condition: FAIR Instructions: Hip Fracture Forms: [employer] (Faroese)
[2017-05-11] MEDS ORDERED: Morphine 4 MG/ML VIAL ONE (11:12)
[2017-05-11 11:21] LABS: BASO % 0.3 % (0.0-2.0); EOS # 0.1 K/uL (0.0-0.7); EOS % 1.7 % (0.0-4.0); HEMOGLOBIN 12.2 g/dL (12.0-16.0); LYMPH # 1.4 K/uL (1.0-4.3); LYMPH % 19.2 % (20.0-40.0); MEAN CELL VOLUME 87.3 fl (81.0-99.0); MEAN CORPUSCULAR HEMOGLOBIN 29.4 pg (27.0-31.0); MEAN CORPUSCULAR HGB CONC 33.7 g/dL (33.0-37.0); MEAN PLATELET VOLUME 8.6 fl (7.2-11.7); MONO # 0.8 K/uL (0.0-0.8); MONO % 11.7 % (0.0-10.0); NEUT # 4.8 K/uL (1.8-7.0); NEUT % 67.1 % (50.0-75.0); NRBC % 0.1 % (0.0-0.0); PARTIAL THROMBOPLASTIN TIME 31.5 Seconds (25.6-37.1); RBC 4.13 Mil/uL (3.80-5.20); RED CELL DISTRIBUTION WIDTH 15.5 % (11.5-14.5); WHITE BLOOD COUNT 7.1 K/uL (4.8-10.8)
[2017-05-11 11:45] LABS: BLOOD UREA NITROGEN 17 mg/dl (7-17); CALCIUM 8.8 mg/dL (8.4-10.2); GFR AFRICAN-AMERICAN > 60; GFR NON-AFRICAN AMERICAN > 60
--- NOTE | 2017-05-11 13:05 | RAD ---
PROCEDURE: Left femur HISTORY: THIGH PAIN COMPARISON: None TECHNIQUE: Standard protocol for this study/examination. FINDINGS: Multiple lucencies too numerous to count throughout the femur. The largest appears to be a septated cystic lucency at the junction of the middle and distal 3rd measuring 9 mm x 3.8 cm. There also appears be cortical disruption of the pelvic ring on the left. IMPRESSION: Multiple lytic lesions/lucencies. Is there a history of neoplasm/myeloma?
--- NOTE | 2017-05-11 13:05 | US ---
HISTORY: r/o dvt . PRIORS: None. FINDINGS: 2-D, color and duplex Doppler analysis of the lower extremity venous circulation using routine protocol from the femoral veins through the popliteal veins. The left common and superficial femoral as well as popliteal veins were evaluated in this examination. The posterior tibial vein was also evaluated. Venous compressibility: Normal. Flow and augmentation patterns: Normal. Visualized veins upper third of calf: Normal. Yates cyst: None. IMPRESSION: No sonographic or Doppler evidence for DVT in left lower extremity.
--- NOTE | 2017-05-11 13:12 | RAD ---
PROCEDURE: Left Hip X-ray Radiographs. HISTORY: LEFT HIP PAIN COMPARISON: None. FINDINGS: BONES: Lytic areas lateral aspect of the pubis adjacent to the acetabulum. Punctate lucencies in the inter trochanteric region and greater trochanter left femur. Mottled appearance of the proximal right femur. JOINTS: Degenerative changes, severe right hip. SOFT TISSUES: Normal. OTHER FINDINGS: None. IMPRESSION: Lucencies, lytic disease in the left pelvic ring, proximal femurs bilaterally.
--- NOTE | 2017-05-11 14:03 | CT ---
PROCEDURE: HISTORY: hip pain left COMPARISON: TECHNIQUE: 2.5 mm axial acquisition and display. Coronal and sagittal reconstructions. Dose report (mGy-cm): 592.94 FINDINGS: Expansile, lytic lesion anterior wall of the acetabulum with pathologic fracture. Intramedullary lesion with a lytic components inter trochanteric region and proximal shaft left femur. Incompletely visualize lytic disease medial aspect left iliac bone. IMPRESSION: Pathologic fracture through the anterior wall of the left acetabulum. Additional metastatic lesions, lytic noted within the proximal left femur and medial aspect of the left iliac bone. .
--- NOTE | 2017-05-11 15:06 | CP.PCM.HP ---
History of Present Illness - History of Present Illness History of Present Illness: CC: Hip Pain 71 YO F w/ PMH of Multiple Myeloma, hx of multiple fractures, DM2, HTN, Pulm HTN, COPD on home oxygen sent from clinic to ED as patient was complaining of acute left hip pain that has been radiating down left thigh associated with swelling of the left thigh. Denies trauma, hx of fall, calf pain, sob, cp, parasthesias, urinary incontinence, weight loss, headache. PMH: Multiple fx, DM2, HTN, COPD, Multiple Myeloma, Pulmonary hypertension, Depression, PE: w/ IVC filter placed 2 years ago in 2014 Meds: Enalpril, Clonazapam, Atorvastatin, Benzotropine, Duloxetine, Furosemide, Aspirin, Levothyroxine, Dexamethasone, Metformin FH: Denies family history SH: Denies smoking and alcohol Allergies: Codine sulfate: dizziness Social: Vitals: HR 103 138/71 RR 18 O2 Sat 97 on 2L NC Labs/Imaging: CBC wnl BMP wnl Coags wnl EKG: No acute changes from previous study Cxray: Questionable atelectasis/infiltrate in right base. Stable cardiomegaly Lower Extremity CT: + Pathological Acetabullum fracture. Multiple lytic lesions of femur and Iliac bone. Extremity U/S: No DVT Ed Course: Morphine 4mg IVP Zofran 4mg IVP push Next of kin: Daughter Code Status: Full Code Present on Admission - Present on Admission Any Indicators Present on Admission: No History of DVT/PE: No History of Uncontrolled Diabetes: No Urinary Catheter: No Decubitus Ulcer Present: No Review of Systems - Constitutional Constitutional: absent: Malaise, Night Sweats, Weight Loss - EENT Eyes: absent: Blurred Vision - Cardiovascular Cardiovascular: absent: Chest Pain, Diaphoresis, Dyspnea, Dyspnea on Exertion, Leg Edema, Palpitations, Paroxysmal Nocturnal Dyspnea - Respiratory Respiratory: absent: Cough, Dyspnea, Hemoptysis - Gastrointestinal Gastrointestinal: absent: Diarrhea, Nausea, Vomiting - Genitourinary Genitourinary: absent: Difficulty Urinating, Dysuria, Urinary Incontinence, Bladder Distension Past Patient History - Infectious Disease Hx of Infectious Diseases: None - Tetanus Immunizations Tetanus Immunization: Unknown - Past Medical History & Family History Past Medical History?: Yes - Past Social History Smoking Status: Never Smoked - CARDIAC Hx Congestive Heart Failure: Yes Hx Hypercholesterolemia: Yes Hx Hypertension: Yes - PULMONARY Hx Asthma: Yes Hx Chronic Obstructive Pulmonary Disease (COPD): Yes Hx Emphysema: Yes Hx Pneumonia: Yes Hx Pulmonary Embolism: Yes Hx Sleep Apnea: Yes - NEUROLOGICAL Hx Migraine: Yes Hx Parkinson's Disease: Yes - HEENT Hx Deafness: Yes - RENAL Hx Chronic Kidney Disease: No - ENDOCRINE/METABOLIC Hx Hypothyroidism: Yes - HEMATOLOGICAL/ONCOLOGICAL Hx Anemia: Yes Hx Human Immunodeficiency Virus (HIV): No - INTEGUMENTARY Hx Dermatological Problems: No - MUSCULOSKELETAL/RHEUMATOLOGICAL Hx Arthritis: Yes Hx Fractures: Yes Hx Rheumatoid Arthritis: Yes - GASTROINTESTINAL Hx Gastrointestinal Disorders: No - GENITOURINARY/GYNECOLOGICAL Hx Genitourinary Disorders: Yes - PSYCHIATRIC Hx Anxiety: Yes Hx Depression: Yes - SURGICAL HISTORY Hx Cholecystectomy: Yes Hx Tonsillectomy: Yes - ANESTHESIA Hx Anesthesia: Yes Hx Anesthesia Reactions: Yes (Resp. Distress) Meds Allergies/Adverse Reactions: Allergies Allergy/AdvReac Type Severity Reaction Status Date / Time codeine AdvReac syncope, Verified 05/11/17 10:29 diaphoresis Physical Exam - Constitutional Appears: Well, Non-toxic - Eye Exam Eye Exam: Normal appearance - ENT Exam ENT Exam: Mucous Membranes Moist - Respiratory Exam Respiratory Exam: Clear to Auscultation Bilateral. absent: Rales, Wheezes - Cardiovascular Exam Cardiovascular Exam: REGULAR RHYTHM, +S1, +S2. absent: Systolic Murmur - GI/Abdominal Exam GI & Abdominal Exam: Normal Bowel Sounds, Soft. absent: Tenderness - Extremities Exam Extremities exam: Negative for: calf tenderness, pedal edema Additional comments: Good peripheral pulses - Expanded Lower Extremities Exam Left Hip exam: swelling, tenderness. absent: ecchymosis, erythema, laceration Upper Leg exam: absent: crepitus Lower Leg Exam: absent: Maribel's sign Neuro vacular tendon exam: significant pain with passive ROM of distal joint. absent: foot drop, motor deficit, sensory deficit - Neurological Exam Neurological exam: Alert, Oriented x3 - Psychiatric Exam Psychiatric exam: Normal Affect - Skin Skin Exam: Normal Color Results - Vital Signs Recent Vital Signs: Last Vital Signs Temp 98 F 05/11/17 10:29 Pulse 103 H 05/11/17 10:29 Resp 18 05/11/17 10:29 BP 138/71 05/11/17 10:29 Pulse Ox 97 05/11/17 14:18 - Labs Result Diagrams: 05/11/17 11:05 05/11/17 11:05 Labs: Laboratory Results - last 24 hr 05/11/17 05/11/17 05/11/17 11:05 11:05 11:05 WBC 7.1 RBC 4.13 Hgb 12.2 Hct 36.1 MCV 87.3 MCH 29.4 MCHC 33.7 RDW 15.5 H Plt Count 268 MPV 8.6 Neut % (Auto) 67.1 Lymph % (Auto) 19.2 L Hunt % (Auto) 11.7 H Eos % (Auto) 1.7 Baso % (Auto) 0.3 Neut # (Auto) 4.8 Lymph # (Auto) 1.4 Hunt # (Auto) 0.8 Eos # (Auto) 0.1 Baso # (Auto) 0.0 PT 11.0 INR 1.0 APTT 31.5 Sodium 144 Potassium 4.5 Chloride 100 Carbon Dioxide 27 Anion Gap 22 H BUN 17 Creatinine 0.9 Est GFR ( Amer) > 60 Est GFR (Non-Af Amer) > 60 Random Glucose 131 H Calcium 8.8 Assessment & Plan - Assessment and Plan (Free Text) Assessment: 71 y/o F w/ PMHx of Multiple Myeloma, hx of multiple fractures, DM2, HTN, Pulm HTN, COPD, Depression, Adrenal Insufficiency, Hs of PE w/ IVC Filter on home oxygen sent from clinic to ED as patient was complaining of acute left hip pain found to have pathological fracture. To be transferred to [facility], awaiting bed. Accepting physician, Dr. Richmond. #Hip Pain -2/2 to pathological fracture of Left Acetabulum. (See Lower Extremity CT report ) -Pt has an extensive hx of pathological fractures and there are multiple lytic lesions seen on imaging. -Orthopedics consulted- Dr. Padron. No surgical intervention given the extent of damage. Recommended for pt to be transfer pt to [facility] for further evaluation. Dr. Richmond accepting Orthopedist. -Pain Management: Tylenol 650mg PO q6, 15mg Torodol q6 for moderate, 1mg Dilaudid for severe #Multiple Myeloma -Hemo/Onc consult -Medications pending hem/onc recommendations #Adrenal Insufficiency -Decadron 20mg PO ASDIR -Hydrocortisone 10mg PO HS #DM2 -POC glucose wnl -Hga1c 7.8 (12/12/17) -c/w Lantus 14 units SC HS, Lispro 5 units TID -Atorvastatin 20mg -Metformin 500mg BID -Insulin Sliding Scale -Hypoglycemic protocol -Accuchecks q 4 #HTN -Normotensive -c/w Enalapril 2.5mg once a day -c/w ASA 81 -Continue monitoring BP's #Pulmonary HTN -Cardio Consulted- Dr. Piña -Pulmonology Consulted -c/w Adempas (Riociguat) -F/U Echo #COPD, stable -On home O2 2L -Bipap at night -c/w Proair #Depression -c/w Escitalopram 10mg po -c/w Busipirone -Clonapazine #Hypothyroidism -c/w Levothyroxine 75 #GERD -Ranitidine HCL -Omeprazole 20mg PO Daily DVT ppx -Lovenox 40mg SC Daily -SCD's Diet -Consistent Carbohydrate Full Code Next of Kin: Daughter
--- NOTE | 2017-05-11 17:00 | CP.PCM.CON ---
History of Present Illness - History of Present Illness History of Present Illness: ASKED TO SEE PATIENT BY DR NAYELI SILVERMAN (COVERING HIM FOR CARDIOLOGY) 71 Y/O FEMALE WITH LEFT ACETABULAR FXR, LIKELY PATHOLOGICAL GIVEN MM HX AND MULTIPLE MET SITES. PT DENIES CP, PALP, INCREASE SOB, LH, DIZZINESS, ORTHOPNEA. ASKED TO SEE PT FOR PERIOP RISK EVALUATION. PRIOR ECHOS AND CATHS REVIEWED. PT HAS NML CORONARIES IN 2015, PHTN ON CATH AND ECHO IN PAST. ALSO HX OF PE AND IS SP IVCF. Review of Systems - Constitutional Constitutional: As Per HPI. absent: Anorexia, Chills, Daytime Sleepiness, Excessive Sweating, Fatigue, Fever, Frequent Falls, Headache, Increased Appetite , Lethargy, Malaise, Night Sweats, Snoring, Sleep Apnea, Weight Gain, Weight Loss, Weakness, Other - EENT Eyes: As Per HPI. absent: Blind Spots, Blurred Vision, Change in Vision, Decreased Night Vision, Diplopia, Discharge, Dry Eye, Exophthalmos, Floaters, Irritation, Itchy Eyes, Loss of Peripheral Vision, Pain, Photophobia, Requires Corrective Lenses, Sees Flashes, Spots in Vision, Tunnel Vision, Other Visual Disturbances, Loss of Vision, Other Ears: As Per HPI. absent: Decreased Hearing, Ear Discharge, Ear Pain, Tinnitus , Abnormal Hearing, Disequilibrium, Dizziness, Other Nose/Mouth/Throat: As Per HPI. absent: Epistaxis, Nasal Congestion, Nasal Discharge, Nasal Obstruction, Nasal Trauma, Nose Pain, Post Nasal Drip, Sinus Pain, Sinus Pressure, Bleeding Gums, Change in Voice, Dental Pain, Dry Mouth, Dysphagia, Halitosis, Hoarsness, Lip Swelling, Mouth Lesions, Mouth Pain, Odynophagia, Sore Throat, Throat Swelling, Tongue Swelling, Facial Pain, Neck Pain, Neck Mass, Other - Breasts Breasts: As Per HPI. absent: Change in Shape, Mass, Pain, Nipple Discharge, Nipple Inversion, Skin Changes, Swelling, Other - Cardiovascular Cardiovascular: As Per HPI. absent: Acrocyanosis, Chest Pain, Chest Pain at Rest, Chest Pain with Activity, Claudication, Diaphoresis, Dyspnea, Dyspnea on Exertion, Edema, Irregular Heart Rhythm, Pain Radiating to Arm/Neck/Jaw, Leg Edema, Leg Ulcers, Lightheadedness, Orthopnea, Palpitations, Paroxysmal Nocturnal Dyspnea, Pedal Edema, Radiating Pain, Rapid Heart Rate, Slow Heart Rate, Syncope, Other - Respiratory Respiratory: As Per HPI. absent: Cough, Dyspnea, Hemoptysis, Dyspnea on Exertion, Wheezing, Snoring, Stridor, Pain on Inspiration, Chest Congestion, Excessive Mucous Production, Change in Mucous Color, Pain with Coughing, Other - Gastrointestinal Gastrointestinal: As Per HPI. absent: Abdominal Pain, Belching, Bloating, Change in Bowel Habits, Change in Stool Character, Coffee Ground Emesis, Constipation, Cramping, Diarrhea, Dyspepsia, Dysphagia, Early Satiety, Excessive Flatus, Fecal Incontinence, Heartburn, Hematemesis, Hematochezia, Loose Stools, Melena, Nausea, Odynophagia, Temesmus, Vomiting, Other - Genitourinary Genitourinary: As Per HPI. absent: Change in Urinary Stream, Difficulty Urinating, Dysuria, Flank Pain, Hematuria, Pyuria, Nocturia, Urinary Incontinence, Urinary Frequency, Urinary Hesitance, Urinary Urgency, Voiding Freq/Small Amts, Freq UTI, Hx Renal/Bladder Calculi, Hx /Renal Surgery, Bladder Distension, Other - Reproductive: Female Reproductive:Female: As Per HPI. absent: Amenorrhea, Amenorrhea/ Control, Currently Menstual, Cycle <21 Days, Cycle >35 Days, Cycle Variable, Menses 1-7 Days, Menses >/= 8 Days, Menses Variable, Cycle > 4 Weeks Between, No Menses for 6 Months, Heavy Menses, Light Menses, Normal Menses, Spotting Between Cycles , S/P Hysterectomy, Menopausal, Post Menopausal, Premenarche, Abnormal Vaginal Bleeding, Dysmenorrhea, Dyspareunia, Genital Lesions, Genital Pruritis, Pelvic Pain, Prolapse Symptoms, Sexual Dysfunction, Vaginal Discharge, Vaginal Dryness , Vaginal Odor, Vaginal Pruritis, Other - Menstruation Menstruation: As Per HPI. absent: Amenorrhea, Amenorrhea/ Control, Currently Menstual, Cycle <21 Days, Cycle >35 Days, Cycle Variable, Menses 1-7 Days, Menses >/= 8 Days, Menses Variable, Cycle > 4 Weeks Between, No Menses for 6 Months, Heavy Menses, Light Menses, Normal Menses, Spotting Between Cycles , S/P Hysterectomy, Menopausal, Post Menopausal, Premenarche, Abnormal Vaginal Bleeding, Dysmenorrhea, Other - Musculoskeletal Musculoskeletal: As Per HPI, Abnormal Gait, Limited Range of Motion Additional comments: LEFT HIP PAIN - Integumentary Integumentary: As Per HPI. absent: Acne, Alopecia, Bleeding Lesions, Change in Hair, Change in Nails, Change in Pigmentation, Changing Lesions, Dry Skin, Erythema, Furuncle, Hirsutism, Lesions, New Lesions, Non-Healing Lesions, Photosensitivity, Pruritus, Rash, Skin Pain, Skin Ulcer, Sores, Striae, Swelling , Unusual Bruising, Wounds, Jaundice, Other - Neurological Neurological: As Per HPI. absent: Abnormal Gait, Abnormal Hearing, Abnormal Movements, Abnormal Speech, Behavioral Changes, Burning Sensations, Confusion, Convulsions, Disequilibrium, Dizziness, Numbness, Focal Weakness, Frequent Falls , Headaches, Lack of Coordination, Loss of Vision, Memory Loss, Paresthesias, Radicular Pain, Restless Legs, Sensory Deficit, Syncope, Tingling, Tremor, Vertigo, Weakness, Other Visual Disturbances, Other - Psychiatric Psychiatric: As Per HPI. absent: Abnormal Sleep Pattern, Anhedonia, Anxiety, Auditory Hallucinations, Behavioral Changes, Change in Appetite, Change in Libido, Confusion, Depression, Difficulty Concentrating, Hallucinations, Homicidal Ideation, Hopelessness, Irritability, Memory Loss, Mood Swings, Panic Attacks, Paranoia, Suicidal Ideation, Visual Hallucinations, Tactile Hallucinations, Other - Endocrine Endocrine: As Per HPI. absent: Change in Body Appearance, Change in Libido, Cold Intolorance, Deepening of Voice, Excessive Sweating, Fatigue, Flushing, Heat Intolorance, Increase in Ring/Shoe/Hat Size, Palpitations, Polydipsia, Polyphagia, Polyuria, Other - Hematologic/Lymphatic Hematologic: absent: As Per HPI, Easy Bleeding, Easy Bruising, Lymphadenopathy, Other Past Patient History - Infectious Disease Hx of Infectious Diseases: None - Tetanus Immunizations Tetanus Immunization: Unknown - Past Medical History & Family History Past Medical History?: Yes - Past Social History Smoking Status: Never Smoked Alcohol: None Drugs: Denies Home Situation {Lives}: Alone Domestic Violence: Negative - CARDIAC Hx Congestive Heart Failure: Yes Hx Hypercholesterolemia: Yes Hx Hypertension: Yes - PULMONARY Hx Asthma: Yes Hx Chronic Obstructive Pulmonary Disease (COPD): Yes Hx Emphysema: Yes Hx Pneumonia: Yes Hx Pulmonary Embolism: Yes Hx Sleep Apnea: Yes - NEUROLOGICAL Hx Migraine: Yes Hx Parkinson's Disease: Yes - HEENT Hx Deafness: Yes - RENAL Hx Chronic Kidney Disease: No - ENDOCRINE/METABOLIC Hx Hypothyroidism: Yes - HEMATOLOGICAL/ONCOLOGICAL Hx Anemia: Yes Hx Human Immunodeficiency Virus (HIV): No - INTEGUMENTARY Hx Dermatological Problems: No - MUSCULOSKELETAL/RHEUMATOLOGICAL Hx Arthritis: Yes Hx Fractures: Yes Hx Rheumatoid Arthritis: Yes - GASTROINTESTINAL Hx Gastrointestinal Disorders: No - GENITOURINARY/GYNECOLOGICAL Hx Genitourinary Disorders: Yes - PSYCHIATRIC Hx Anxiety: Yes Hx Depression: Yes - SURGICAL HISTORY Hx Cholecystectomy: Yes Hx Tonsillectomy: Yes - ANESTHESIA Hx Anesthesia: Yes Hx Anesthesia Reactions: Yes (Resp. Distress) Meds Allergies/Adverse Reactions: Allergies Allergy/AdvReac Type Severity Reaction Status Date / Time codeine AdvReac syncope, Verified 05/11/17 10:29 diaphoresis Physical Exam - Constitutional Appears: Well - Head Exam Head Exam: ATRAUMATIC, NORMAL INSPECTION, NORMOCEPHALIC - Eye Exam Eye Exam: EOMI, Normal appearance, PERRL. absent: Conjunctival injection, Nystagmus, Periorbital swelling, Periorbital tenderness, Scleral icterus Pupil Exam: NORMAL ACCOMODATION, PERRL. absent: Fixed, Irregular, Miosis, Mydriatic, Unequal - ENT Exam ENT Exam: Mucous Membranes Moist, Normal Exam. absent: Mucous Membranes Dry, Normal External Ear Exam, Normal Oropharynx, TM's Normal Bilaterally - Neck Exam Neck exam: Positive for: Normal Inspection. Negative for: Full Rom, Lymphadenopathy, Meningismus, Tenderness, Thyromegaly - Respiratory Exam Respiratory Exam: Rales, NORMAL BREATHING PATTERN. absent: Accessory Muscle Use , Chest Wall Tenderness, Decreased Breath Sounds, Prolonged Expiratory Phase, Rhonchi, Wheezes, Respiratory Distress, Stridor - Cardiovascular Exam Cardiovascular Exam: REGULAR RHYTHM, +S2, +S4, Systolic Murmur. absent: Bradycardia, Tachycardia, Clicks, Diastolic murmur, Gallop, Irregular Rhythm, JVD, RRR, Rubs, +S1 - GI/Abdominal Exam GI & Abdominal Exam: Normal Bowel Sounds, Soft. absent: Bruit, Diminished Bowel Sounds, Distended, Firm, Guarding, Hernia, Hyperactive Bowel Sounds, Hypoactive Bowel Sounds, Mass, Organomegaly, Pulsatile Mass, Rebound, Rigid, Tenderness - Rectal Exam Rectal Exam: Deferred - Extremities Exam Extremities exam: Positive for: pedal edema. Negative for: calf tenderness, full ROM, joint swelling, normal capillary refill, normal inspection, tenderness , pedal pulses present - Back Exam Back exam: NORMAL INSPECTION. absent: CVA tenderness (L), CVA tenderness (R), FULL ROM, muscle spasm, paraspinal tenderness, rash noted, tenderness, vertebral tenderness - Neurological Exam Neurological exam: Alert, CN II-XII Intact, Oriented x3 - Psychiatric Exam Psychiatric exam: Normal Affect, Normal Mood - Skin Skin Exam: Dry, Intact, Normal Color, Warm Results - Vital Signs Recent Vital Signs: Last Vital Signs Temp 98.4 F 05/11/17 16:08 Pulse 83 05/11/17 16:08 Resp 16 05/11/17 16:08 BP 133/71 05/11/17 16:08 Pulse Ox 98 05/11/17 16:08 - Labs Result Diagrams: 05/11/17 11:05 05/11/17 11:05 Labs: Laboratory Results - last 24 hr 05/11/17 05/11/17 05/11/17 11:05 11:05 11:05 WBC 7.1 RBC 4.13 Hgb 12.2 Hct 36.1 MCV 87.3 MCH 29.4 MCHC 33.7 RDW 15.5 H Plt Count 268 MPV 8.6 Neut % (Auto) 67.1 Lymph % (Auto) 19.2 L Preble % (Auto) 11.7 H Eos % (Auto) 1.7 Baso % (Auto) 0.3 Neut # (Auto) 4.8 Lymph # (Auto) 1.4 Preble # (Auto) 0.8 Eos # (Auto) 0.1 Baso # (Auto) 0.0 PT 11.0 INR 1.0 APTT 31.5 Sodium 144 Potassium 4.5 Chloride 100 Carbon Dioxide 27 Anion Gap 22 H BUN 17 Creatinine 0.9 Est GFR ( Amer) > 60 Est GFR (Non-Af Amer) > 60 Random Glucose 131 H Calcium 8.8 - EKG Data EKG Interpreted by: Myself EKG shows normal: Sinus rhythm Assessment & Plan (1) History of pulmonary embolus (PE) Status: Acute (2) Hip fracture, left Status: Acute (3) Pathologic fracture of acetabulum Status: Acute (4) Chronic diastolic CHF (congestive heart failure) Status: Acute (5) Dyslipidemia associated with type 2 diabetes mellitus Status: Chronic (6) HTN (hypertension) Status: Chronic (7) History of DVT (deep vein thrombosis) Status: Chronic Priority: Medium (8) Multiple myeloma Status: Chronic (9) Pulmonary hypertension Status: Chronic - Assessment and Plan (Free Text) Plan: PT HAS NO SIGNS OF ACTIVE CAD, SHE MAY PROCEED WITH SURGERY WHICH IS SEMIURGENT. GIVEN PTS PHTN AND OTHER RISK FACTORS SHE SHOULD BE CONSIDERED AT LEAST MODERATE RISK. SCHUYLER-OP BB'S RECOMMENDED.
--- NOTE | 2017-05-11 17:15 | RAD ---
PROCEDURE: Left Knee Radiographs. HISTORY: Pain. COMPARISON: None. FINDINGS: BONES: No acute fractures. Lucencies, lytic findings in the distal left femur. JOINTS: Normal. No osteoarthritis. JOINT EFFUSION: None. OTHER FINDINGS: Soft tissue swelling suprapatellar region. IMPRESSION: Soft tissue swelling without acute articular or osseous abnormality.
--- NOTE | 2017-05-11 17:16 | RAD ---
PROCEDURE: GoRadiographs of the left tibia and fibula. HISTORY: LEG PAIN COMPARISON: None available. TECHNIQUE: Frontal and lateral views obtained. FINDINGS: BONES: Lytic foci 8 in the proximal aspect of the left femur. Postoperative findings distal tibia and fibula. JOINT SPACES: Unremarkable. OTHER FINDINGS: None. IMPRESSION: No acute abnormalities. Small lytic foci visualized in the proximal tibia
--- NOTE | 2017-05-11 21:08 | CP.PCM.CON ---
History of Present Illness - History of Present Illness History of Present Illness: Ms. 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 The patient had been treated with Revlimid in the past but due to severe hypocalcemia and hypomagnesemia, this was held. She had a very good partial response and has maintained a faint monclonal protein on single agent dexamethasone. She notes to increasing left sided hip pain for several days which occurred without fall. She saw her PMD who referred her to the hospital for imaging. She is currently awaiting transfer to [facility] for possible orthopedic fixation. Past medical history: type II DM, hypertension, COPD, sleep apnea with pulmonary hypertension, multiple myeloma with lytic bone lesions. Past surgical history: None Family history: Denies hematologic and oncologic problems. Social history: Denies tobacco, alcohol, and illicit drug use. Allergies: Codeine. Review of systems: All remaining ROS including HEENT, cardiovascular, respiratory, gastrointestinal, genitourinary, musculoskeletal, dermatologic, neurologic, and psychiatric are negative unless mentioned in the HPI. Past Patient History - Infectious Disease Hx of Infectious Diseases: None - Tetanus Immunizations Tetanus Immunization: Unknown - Past Medical History & Family History Past Medical History?: Yes - Past Social History Smoking Status: Never Smoked - CARDIAC Hx Congestive Heart Failure: Yes Hx Hypercholesterolemia: Yes Hx Hypertension: Yes - PULMONARY Hx Asthma: Yes Hx Chronic Obstructive Pulmonary Disease (COPD): Yes Hx Emphysema: Yes Hx Pneumonia: Yes Hx Pulmonary Embolism: Yes Hx Sleep Apnea: Yes - NEUROLOGICAL Hx Migraine: Yes Hx Parkinson's Disease: Yes - HEENT Hx Deafness: Yes - RENAL Hx Chronic Kidney Disease: No - ENDOCRINE/METABOLIC Hx Hypothyroidism: Yes - HEMATOLOGICAL/ONCOLOGICAL Hx Anemia: Yes Hx Human Immunodeficiency Virus (HIV): No - INTEGUMENTARY Hx Dermatological Problems: No - MUSCULOSKELETAL/RHEUMATOLOGICAL Hx Arthritis: Yes Hx Fractures: Yes Hx Rheumatoid Arthritis: Yes - GASTROINTESTINAL Hx Gastrointestinal Disorders: No - GENITOURINARY/GYNECOLOGICAL Hx Genitourinary Disorders: Yes - PSYCHIATRIC Hx Anxiety: Yes Hx Depression: Yes - SURGICAL HISTORY Hx Cholecystectomy: Yes Hx Tonsillectomy: Yes - ANESTHESIA Hx Anesthesia: Yes Hx Anesthesia Reactions: Yes (Resp. Distress) Meds Allergies/Adverse Reactions: Allergies Allergy/AdvReac Type Severity Reaction Status Date / Time codeine AdvReac syncope, Verified 05/11/17 10:29 diaphoresis - Medications Medications: Current Medications Acetaminophen (Tylenol 325mg Tab) 650 mg PO Q6 PRN PRN Reason: Pain, Mild (1-3) Aspirin (Ecotrin) 81 mg PO DAILY [facility] Atorvastatin Calcium (Lipitor) 20 mg PO HS [facility] Buspirone HCl (Buspar) 10 mg PO Q12H [facility] Clonazepam (Klonopin) 0.5 mg PO DAILY PRN PRN Reason: Anxiety Duloxetine HCl (Cymbalta) 20 mg PO Q12H [facility] Enalapril Maleate (Vasotec) 2.5 mg PO DAILY [facility] Enoxaparin Sodium (Lovenox) 40 mg SC DAILY [facility] PRN Reason: Protocol Escitalopram Oxalate (Lexapro) 10 mg PO DAILY [facility] Furosemide (Lasix) 20 mg PO Q48H [facility] Home Med (Riociguat [Adempas]) 2 mg PO TID [facility] Hydromorphone HCl (Dilaudid) 1 mg IVP Q6 PRN PRN Reason: Pain, severe (8-10) Insulin Detemir (Levemir) 14 units SC HS [facility] Ketorolac Tromethamine (Toradol) 15 mg IVP Q6 PRN PRN Reason: Pain, moderate (4-7) Levothyroxine Sodium (Synthroid) 75 mcg PO DAILY@0630 [facility] Metformin HCl (Glucophage) 500 mg PO BID [facility] Physical Exam - Head Exam Head Exam: ATRAUMATIC - Eye Exam Eye Exam: Normal appearance - ENT Exam ENT Exam: Mucous Membranes Dry - Respiratory Exam Respiratory Exam: NORMAL BREATHING PATTERN - Cardiovascular Exam Cardiovascular Exam: +S1, +S2 - GI/Abdominal Exam GI & Abdominal Exam: Normal Bowel Sounds - Extremities Exam Extremities exam: Positive for: pedal edema - Neurological Exam Neurological exam: Oriented x3 - Psychiatric Exam Psychiatric exam: Normal Affect, Normal Mood - Skin Skin Exam: Warm Results - Vital Signs Recent Vital Signs: Last Vital Signs Temp 98.4 F 05/11/17 16:08 Pulse 93 H 05/11/17 17:35 Resp 18 05/11/17 17:35 BP 133/71 05/11/17 16:08 Pulse Ox 97 05/11/17 17:35 - Labs Result Diagrams: 05/11/17 11:05 05/11/17 11:05 Labs: Laboratory Results - last 24 hr 05/11/17 05/11/17 05/11/17 11:05 11:05 11:05 WBC 7.1 RBC 4.13 Hgb 12.2 Hct 36.1 MCV 87.3 MCH 29.4 MCHC 33.7 RDW 15.5 H Plt Count 268 MPV 8.6 Neut % (Auto) 67.1 Lymph % (Auto) 19.2 L [place] % (Auto) 11.7 H Eos % (Auto) 1.7 Baso % (Auto) 0.3 Neut # (Auto) 4.8 Lymph # (Auto) 1.4 [place] # (Auto) 0.8 Eos # (Auto) 0.1 Baso # (Auto) 0.0 PT 11.0 INR 1.0 APTT 31.5 Sodium 144 Potassium 4.5 Chloride 100 Carbon Dioxide 27 Anion Gap 22 H BUN 17 Creatinine 0.9 Est GFR ( Amer) > 60 Est GFR (Non-Af Amer) > 60 Random Glucose 131 H Calcium 8.8 Assessment & Plan (1) Pathologic fracture of acetabulum Assessment and Plan: secondary to progressive multiple myeloma for transfer to [facility] for possible orthopedic fixation Status: Acute (2) Multiple myeloma Assessment and Plan: progressive mana disease radiation oncology evaluation for palliative XRT once orthopedic fixation completed will need outpatient escalation of systemic therapy Status: Chronic (3) History of pulmonary embolus (PE) Assessment and Plan: off anticoagulation for multiple falls in the past has IVC filter on DVT prophylaxis Thank you for this interesting consult. Status: Acute
[2017-05-11] MEDS ORDERED: Dextrose 50% SYRINGE Inj (50 ml) IV PRN (21:35)
[2017-05-11] MEDS ORDERED: Glucagon Recombinant 1 mg Inj IM PRN (21:35)
[2017-05-11] MEDS ORDERED: Insulin Detemir 100 Units/ml Inj SC SCH ×2 (22:00)
[2017-05-12] MEDS ORDERED: Levothyroxine 75 MCG TAB PO SCH (06:30)
[2017-05-12 08:08] VITALS: RESP 20; TEMP 97.5; O2SAT 96
[2017-05-12] MEDS ORDERED: Enoxaparin 40 mg Syringe SC SCH (09:00)
[2017-05-12] MEDS: Insulin Lispro (humaLOG) 100 Units/ml Inj SC SCH ×2 (09:51→12:44)
[2017-05-12 09:54] VITALS: BP 110/66; PULSE 88
--- NOTE | 2017-05-12 10:30 | CP.PCM.PN ---
Objective - Vital Signs/Intake and Output Vital Signs (last 24 hours): Temp Pulse Resp BP Pulse Ox 97.5 F L 88 20 110/66 96 05/12/17 08:07 05/12/17 09:54 05/12/17 08:07 05/12/17 09:54 05/12/17 08:07 - Medications Medications: Current Medications Acetaminophen (Tylenol 325mg Tab) 650 mg PO Q6 PRN PRN Reason: Pain, Mild (1-3) Aspirin (Ecotrin) 81 mg PO DAILY [facility] Last Admin: 05/12/17 09:52 Dose: 81 mg Atorvastatin Calcium (Lipitor) 20 mg PO HS [facility] Last Admin: 05/11/17 22:07 Dose: 20 mg Buspirone HCl (Buspar) 10 mg PO Q12H [facility] Last Admin: 05/12/17 09:52 Dose: 10 mg Clonazepam (Klonopin) 0.5 mg PO DAILY PRN PRN Reason: Anxiety Dextrose (Dextrose 50% Inj) 0 ml IV STAT PRN; Protocol PRN Reason: Hypoglycemia Protocol Dextrose (Glutose 15) 0 gm PO ONCE PRN; Protocol PRN Reason: Hypoglycemia Protocol Duloxetine HCl (Cymbalta) 20 mg PO Q12H [facility] Last Admin: 05/12/17 09:52 Dose: 20 mg Enalapril Maleate (Vasotec) 2.5 mg PO DAILY [facility] Last Admin: 05/12/17 09:53 Dose: 2.5 mg Enoxaparin Sodium (Lovenox) 40 mg SC DAILY [facility] PRN Reason: Protocol Last Admin: 05/12/17 09:53 Dose: 40 mg Escitalopram Oxalate (Lexapro) 10 mg PO DAILY [facility] Last Admin: 05/12/17 09:52 Dose: 10 mg Furosemide (Lasix) 20 mg PO Q48H [facility] Last Admin: 05/11/17 22:06 Dose: 20 mg Glucagon (Glucagen Diagnostic Kit) 0 mg IM STAT PRN; Protocol PRN Reason: Hypoglycemia Protocol Home Med (Riociguat [Adempas]) 2 mg PO TID [facility] Last Admin: 05/12/17 09:51 Dose: 2 mg Hydromorphone HCl (Dilaudid) 1 mg IVP Q6 PRN PRN Reason: Pain, severe (8-10) Last Admin: 05/12/17 05:47 Dose: 1 mg Insulin Detemir (Levemir) 14 units SC HS [facility] Last Admin: 05/11/17 22:35 Dose: 14 u Insulin Human Lispro (Humalog) 5 units SC ACHS [facility] Last Admin: 05/12/17 09:51 Dose: 5 units Ketorolac Tromethamine (Toradol) 15 mg IVP Q6 PRN PRN Reason: Pain, moderate (4-7) Levothyroxine Sodium (Synthroid) 75 mcg PO DAILY@0630 [facility] Last Admin: 05/12/17 06:49 Dose: 75 mcg Metformin HCl (Glucophage) 500 mg PO BID [facility] Last Admin: 05/12/17 09:53 Dose: 500 mg - Labs Labs: 05/11/17 11:05 05/11/17 11:05 PT 11.0 Seconds (9.8-13.1) 05/11/17 11:05 INR 1.0 (0.9-1.2) 05/11/17 11:05 APTT 31.5 Seconds (25.6-37.1) 05/11/17 11:05
--- NOTE | 2017-05-12 11:54 | CARD ---
APPROVED REPORT EXAM: Two-dimensional and M-mode echocardiogram with Doppler and color Doppler. Other Information Quality : GoodRhythm : NSR INDICATION Pulmonary Hypertention 2D DIMENSIONS IVSd0.80 (0.7-1.1cm)LVDd4.08 (3.9-5.9cm) LVOT Diameter2.08 (1.8-2.4cm)PWd0.96 (0.7-1.1cm) IVSs1.30 (0.8-1.2cm)LVDs2.76 (2.5-4.0cm) FS (%) 32.2 %PWs0.99 (0.8-1.2cm) M-Mode DIMENSIONS Left Atrium (MM)4.25 (2.5-4.0cm)IVSd1.19 (0.7-1.1cm) Aortic Root2.97 (2.2-3.7cm)LVDd4.19 (4.0-5.6cm) Aortic Cusp Exc.1.84 (1.5-2.0cm)PWd1.03 (0.7-1.1cm) IVSs1.25 cmFS (%) 37 % LVDs2.63 (2.0-3.8cm)PWs1.47 cm Mitral Valve E/A ratio0.0 TDI E/Lateral E'0.0E/Medial E'0.0 LEFT VENTRICLE The left ventricle is normal size. There is normal left ventricular wall thickness. Left ventricle systolic function is normal. The Ejection Fraction is 65-70%. Septal motion was mildly paradoxical Transmitral Doppler flow pattern is Grade I-abnormal relaxation pattern. RIGHT VENTRICLE The right ventricle is mildly dilated. There is normal right ventricular wall thickness. The right ventricular systolic function is normal. ATRIA The left atrium size is normal. The right atrium size is normal. AORTIC VALVE The aortic valve is mildly sclerotic. No aortic regurgitation is present. There is no aortic valvular stenosis. MITRAL VALVE The mitral valve is normal in structure. There is no evidence of mitral valve prolapse. There is no mitral valve stenosis. There is no mitral valve regurgitation noted. TRICUSPID VALVE The tricuspid valve is normal in structure. There is no tricuspid valve regurgitation noted. PULMONIC VALVE The pulmonary valve is normal in structure. There is no pulmonic valvular regurgitation. GREAT VESSELS The aortic root is normal in size. The IVC is normal in size and collapses >50% with inspiration. PERICARDIAL EFFUSION The pericardium appears normal. <Conclusion> The left ventricle is normal size. There is normal left ventricular wall thickness. Septal motion was mildly paradoxical Left ventricle systolic function is normal. The Ejection Fraction is 65-70%. Transmitral Doppler flow pattern is Grade I-abnormal relaxation pattern. The right ventricle is mildly dilated. No TR was detected, so pulm artery systolic pressure could not be assesed.
--- NOTE | 2017-05-12 13:17 | CP.PCM.DIS ---
Provider - Provider Date of Admission: 05/11/17 16:55 Attending physician: Ciara Jane MD Time Spent in preparation of Discharge (in minutes): 45 Diagnosis - Discharge Diagnosis (1) Pathologic fracture of acetabulum Status: Acute Comment: Pt presented with acute left hip pain.Lower Extremity CT sigificant for expansile lytic lesion with pathological acetabellum fracture. Pt to be transferred to [facility] under Orthopedist, Dr. Richmond, for further evaluation and management. Hospital Course - Lab Results Lab Results: Most Recent Lab Values WBC 7.1 K/uL (4.8-10.8) 05/11/17 11:05 RBC 4.13 Mil/uL (3.80-5.20) 05/11/17 11:05 Hgb 12.2 g/dL (12.0-16.0) 05/11/17 11:05 Hct 36.1 % (34.0-47.0) 05/11/17 11:05 MCV 87.3 fl (81.0-99.0) 05/11/17 11:05 MCH 29.4 pg (27.0-31.0) 05/11/17 11:05 MCHC 33.7 g/dL (33.0-37.0) 05/11/17 11:05 RDW 15.5 % (11.5-14.5) H 05/11/17 11:05 Plt Count 268 K/uL (130-400) 05/11/17 11:05 MPV 8.6 fl (7.2-11.7) 05/11/17 11:05 Neut % (Auto) 67.1 % (50.0-75.0) 05/11/17 11:05 Lymph % (Auto) 19.2 % (20.0-40.0) L 05/11/17 11:05 [place] % (Auto) 11.7 % (0.0-10.0) H 05/11/17 11:05 Eos % (Auto) 1.7 % (0.0-4.0) 05/11/17 11:05 Baso % (Auto) 0.3 % (0.0-2.0) 05/11/17 11:05 Neut # (Auto) 4.8 K/uL (1.8-7.0) 05/11/17 11:05 Lymph # (Auto) 1.4 K/uL (1.0-4.3) 05/11/17 11:05 [place] # (Auto) 0.8 K/uL (0.0-0.8) 05/11/17 11:05 Eos # (Auto) 0.1 K/uL (0.0-0.7) 05/11/17 11:05 Baso # (Auto) 0.0 K/uL (0.0-0.2) 05/11/17 11:05 PT 11.0 Seconds (9.8-13.1) 05/11/17 11:05 INR 1.0 (0.9-1.2) 05/11/17 11:05 APTT 31.5 Seconds (25.6-37.1) 05/11/17 11:05 Sodium 144 mmol/l (132-148) 05/11/17 11:05 Potassium 4.5 MMOL/L (3.6-5.0) 05/11/17 11:05 Chloride 100 mmol/L (98-107) 05/11/17 11:05 Carbon Dioxide 27 mmol/L (22-30) 05/11/17 11:05 Anion Gap 22 (10-20) H 05/11/17 11:05 BUN 17 mg/dl (7-17) 05/11/17 11:05 Creatinine 0.9 mg/dl (0.7-1.2) 05/11/17 11:05 Est GFR ( Amer) > 60 05/11/17 11:05 Est GFR (Non-Af Amer) > 60 05/11/17 11:05 POC Glucose (mg/dL) 278 mg/dL (65-110) H 05/12/17 10:57 Random Glucose 131 mg/dL (65-105) H 05/11/17 11:05 Calcium 8.8 mg/dL (8.4-10.2) 05/11/17 11:05 - Hospital Course Hospital Course: Consultations: Saddle Stitching Machine Operator (Dr. Piña/Dr. Angel- moderate surgical risk), Barrel Dedenting Machine Operator/Oncologist (Deng- radiation/oncology for palliative), Orthopedist (Dr. Padron) Procedures: None Hospital Course: 71 y/o F w/ PMHx of Multiple Myeloma and hx of multiple fractures brought to facility with complaints of left hip pain. Lower Extremity CT significant for expansile lytic lesion with pathological acetabelum fracture. Orthopedist,Dr. Padron, consulted who recommended pt be transferred to [facility] to bone oncology. Pt was transferred to [facility] via ambulatory service under accepting Orthopedist, Dr. Richmond, for further evaluation and management. Pt stable upon transfer. Discharge Medication: Continue with all current home medications. No medication changes. No new RX Next of Kin: Mary Kate (daughter) Discharge Exam - Head Exam Head Exam: ATRAUMATIC - ENT Exam ENT Exam: Mucous Membranes Moist - Respiratory Exam Respiratory Exam: NORMAL BREATHING PATTERN. absent: Rales, Wheezes - Cardiovascular Exam Cardiovascular Exam: REGULAR RHYTHM, +S1, +S2. absent: Systolic Murmur - GI/Abdominal Exam GI & Abdominal Exam: Normal Bowel Sounds, Soft. absent: Distended, Tenderness - Extremities Exam Extremities exam: joint swelling, tenderness, pedal pulses present Additional comments: Left hip swelling and tenderness (stable from admission). Left knee moderate swelling and tenderness, mild warmth, good distal pulses and capillary refill. No ecchymosis. ROM limited by pain (flexion of hip, flexion of knee joint and dorsiflexion of ankle) - Neurological Exam Neurological exam: Alert, Oriented x3 Additional comments: No motor or sensory deficits of extremities. - Psychiatric Exam Psychiatric exam: Normal Affect - Skin Skin Exam: Normal Color Discharge Plan - Follow Up Plan Condition: FAIR Disposition: Trans to Other Acute Care Hosp Instructions: Hip Fracture
--- NOTE | 2017-05-12 19:23 | CON ---
DATE: 05/12/2017 HISTORY OF PRESENT ILLNESS: The patient is a 71-year-old female who is well known to me from prior admission. She is referred for pulmonary evaluation prior to being transferred to [facility] in [place] for possible repair of left hip fracture. She has a history of multiple myeloma with multiple areas of metastasis and diabetes mellitus, hypertension, pulmonary hypertension, and chronic obstructive pulmonary disease on home oxygen. She basically has been having left hip pain for the past for 4 or 5 days and was seen in the emergency room with what appears to be an acute left hip fracture. She denies fall and she is being planned for transfer to [facility] for possible surgical repair and therapy. FAMILY HISTORY: Noncontributory. SOCIAL HISTORY: Socially, she does not smoke or drink and does not use drugs. REVIEW OF SYSTEMS: Remarkable for pain in the left hip. PHYSICAL EXAMINATION: GENERAL: The patient is alert and oriented, appears to be still in some distress from left hip pain. VITAL SIGNS: Blood pressure of 110/66, pulse of 88, and respiratory rate of 20. She is febrile. O2 saturation of 96% on room air. SKIN: Shows fair turgor. HEENT: Pupils are equal and reactive to light and accommodation. Mouth shows fair hygiene. NECK: JVP flat. LUNGS: Clear. HEART: Regular. No murmurs or gallop. ABDOMEN: Soft, nontender, and no organomegaly. EXTREMITIES: Shows no edema or cyanosis, but there is tenderness over the left hip area. NEUROLOGIC: Central nervous system exam is grossly intact. LABORATORY DATA: WBC is 7.1, hemoglobin is 12.2, and platelet count of 268,000. Sodium of 144, potassium of 4.5, BUN of 17, creatinine of 0.9, and serum glucose of 235. DIAGNOSTIC DATA: A CT scan of lower extremity is remarkable for pathologic fracture through the anterior wall of the left acetabulum, additional metastatic lesion noted within the proximal left femoral and medial aspect of the left iliac bone. IMPRESSION: Left acetabular fracture and chronic obstructive pulmonary disease appears stable, history of multiple myeloma with pathologic fracture of left acetabulum. PLAN: The plan from the pulmonary point of view is that the patient is clinically stable from pulmonary viewpoint. It is okay to transfer to [facility] for further evaluation and therapy. We will sign off case and see again at your request. Taj No MD [facility] # [id number]
== END 2017-05-12 13:57 | disposition short-term general hospital (02) | DRG 543 ==
LOC: H.ER 10:08 → H.ERHOLD 14:11 → UNDOADMIN 14:11 → H.ERHOLD 16:55 → H.MEDSURG1 17:20
PROVIDERS: ADMIT Family Medicine Geriatric Medicine; ATTEND Family Medicine Geriatric Medicine
DX: M84.454A Pathological fracture, pelvis, initial encounter for fracture (principal); C90.00 Multiple myeloma not having achieved remission; C79.51 Secondary malignant neoplasm of bone; E27.40 Unspecified adrenocortical insufficiency; I50.32 Chronic diastolic (congestive) heart failure; I27.20 Pulmonary hypertension, unspecified; G20 Parkinson's disease; I11.0 Hypertensive heart disease with heart failure; E11.9 Type 2 diabetes mellitus without complications; J44.9 Chronic obstructive pulmonary disease, unspecified; E03.9 Hypothyroidism, unspecified; E78.00 Pure hypercholesterolemia, unspecified; K21.9 Gastro-esophageal reflux disease without esophagitis; M06.9 Rheumatoid arthritis, unspecified; G47.30 Sleep apnea, unspecified; E78.4 Other hyperlipidemia; F32.9 Major depressive disorder, single episode, unspecified; F41.9 Anxiety disorder, unspecified; R29.6 Repeated falls; Z87.311 Personal history of (healed) other pathological fracture; Z99.81 Dependence on supplemental oxygen; Z86.711 Personal history of pulmonary embolism; Z87.01 Personal history of pneumonia (recurrent); Z79.4 Long term (current) use of insulin; Z88.6 Allergy status to analgesic agent

== ENCOUNTER 2017-08-19 17:44 | Inpatient (IN) | payer MEDICARE, OTHER ==
[2017-08-19 17:44] VITALS: BMI 29.7
[2017-08-19] MEDS ORDERED: Sodium Chloride 0.9% 1,000 ML IV STA (18:34)
[2017-08-19] MEDS ORDERED: Tdap Vaccine 0.5 ml Vial (10-64 yrs) IM ONE ×2 (18:38→19:35)
--- NOTE | 2017-08-19 18:39 | ED PDOC ---
HPI: General Adult Time Seen by Provider: 08/19/17 18:24 Chief Complaint (Nursing): Trauma Chief Complaint (Provider): syncope, fever History Per: Patient, Family (daughter) Additional Complaint(s): 71-year-old female with history of hypertension, diabetes as well as COPD (on 2 liters of O2 via nasal cannula at baseline) presents for evaluation status post syncopal episode. Patient was walking at home with her walker when she felt dizzy and fell to the ground. She hit face against the ground and sustained a minor lip abrasion. Ambulance was called and patient was brought here. Upon arrival patient complains of headache and overall body weakness. She states she has had cough for the past few days. Patient complains of chills and feels feverish. She also has mild chest pain and dizziness. PMD: David Neumann MD Past Medical History Reviewed: Historical Data, Nursing Documentation, Vital Signs Vital Signs: Last Vital Signs Temp 101.3 F H 08/19/17 19:35 Pulse 104 H 08/19/17 17:47 Resp 20 08/19/17 17:47 BP 97/55 L 08/19/17 17:47 Pulse Ox 95 08/19/17 19:57 - Medical History PMH: Anemia, Anxiety, Arthritis, Asthma, CAD, CHF, COPD, Depression, Diabetes, Deep Vein Thrombosis, Emphysema, Fibromyalgia, Fractures, GERD, HTN, Hypercholesterolemia, Hypothyroidism, Migraine, Parkinson's Disease, Pneumonia, Pulmonary Embolism, Rheumatoid Arthritis, Sleep Apnea - Surgical History Surgical History: Cholecystectomy, Endoscopy, Tonsillectomy - Family History Family History: States: Diabetes - Living Arrangements Living Arrangements: With Family - Social History Current smoker - smoking cessation education provided: No Ex-Smoker (has not smoked in the last 12 months): No Alcohol: None Drugs: Denies - Home Medications Home Medications: Ambulatory Orders Medication Instructions Recorded Aspirin [Ecotrin] 81 mg PO DAILY 03/05/17 Atorvastatin [Lipitor] 20 mg PO HS 03/05/17 DULoxetine [Cymbalta] 20 mg PO Q12H 03/05/17 Dexamethasone [Decadron] 20 mg PO ASDIR 03/05/17 Enalapril Maleate [Vasotec] 2.5 mg PO DAILY 03/05/17 Furosemide [Lasix] 20 mg PO Q48H 03/05/17 Insulin Glargine, Recombina 14 unit SC HS 03/05/17 [Lantus] Insulin Lispro [humALOG] 5 unit SC TID 03/05/17 Levothyroxine [Synthroid] 75 mcg PO DAILY 03/05/17 Riociguat [Adempas] 2 mg PO TID 03/05/17 busPIRone [Buspar] 10 mg PO Q12H 03/05/17 clonazePAM [Klonopin] 0.5 mg PO DAILY PRN 03/05/17 metFORMIN [glucOPHAGE] 500 mg PO BID 03/05/17 ARIPiprazole [Abilify] 10 mg PO HS 05/11/17 Escitalopram [Lexapro] 10 mg PO DAILY 05/11/17 Hydrocortisone [Cortef] 10 mg PO HS 05/11/17 Naproxen 375 mg PO Q12 PRN 05/11/17 Omeprazole 20 mg PO DAILY 05/11/17 Ranitidine HCl [Zantac] 150 mg PO DAILY 05/11/17 Ranitidine HCl [Zantac] 300 mg PO HS 05/11/17 - Allergies Allergies/Adverse Reactions: Allergies Allergy/AdvReac Type Severity Reaction Status Date / Time codeine AdvReac syncope, Verified 08/19/17 17:50 diaphoresis Review of Systems ROS Statement: Except As Marked, All Systems Reviewed And Found Negative Constitutional: Positive for: Fever, Chills, Weakness. Negative for: Sweats Cardiovascular: Positive for: Chest Pain. Negative for: Palpitations Respiratory: Positive for: Cough, Shortness of Breath Gastrointestinal: Negative for: Nausea, Vomiting, Abdominal Pain Skin: Positive for: Other (lip abrasion) Neurological: Positive for: Headache, Dizziness Physical Exam - Reviewed Nursing Documentation Reviewed: Yes Vital Signs Reviewed: Yes - Physical Exam Appears: Positive for: Well, Non-toxic, No Acute Distress Skin: Positive for: Normal Color. Negative for: Rash Eye Exam: Positive for: Normal appearance ENT: Positive for: Other (Superficial laceration lower lip with minimal active bleeding, dentition intact with no acute dental fractures) Neck: Positive for: Normal Cardiovascular/Chest: Positive for: Regular Rate, Rhythm Respiratory: Positive for: Normal Breath Sounds, Other (on2 liters O2) Gastrointestinal/Abdominal: Positive for: Other (Obese nontender abdomen) Back: Negative for: L CVA Tenderness, R CVA Tenderness Extremity: Positive for: Normal ROM, Other (Full range of motion bilateral hips and knees, normal distal sensation lower extremities bilaterally) Neurologic/Psych: Positive for: Alert, Oriented - Laboratory Results Result Diagrams: 08/19/17 19:00 08/19/17 19:00 - ECG Interpretation Of ECG: Sinus tach 104 with T wave inversions, reviewed by PA and ED attending O2 Sat by Pulse Oximetry: 95 Pulse Ox Interpretation: Normal Medical Decision Making Medical Decision Makin71 year old with fever and syncope Plan: EKG CXR CBC CMP Troponin UA and culture VBG Blood culture CT head Adacel IM PO tylenol and motrin IVF 7:45 pm: PMD is Dr. Neumann at [facility]. Case was d/w [facility] resident, Dr. Boyd. 7:55 pm: Calcium is critically low at 5.0, 1 amp calcium gluconate ordered, troponin also elevated. Case was d/w hospitalist Dr Hoff who agrees with ICU admit. 8:05 pm: case was discussed with Dr. Thapa, ED attending. CT head and CXR pending. Care of patient resumed by Dr. Thapa. Disposition - Clinical Impression Clinical Impression: Syncope and collapse, Fever, Non-STEMI (non-ST elevated myocardial infarction) - Patient ED Disposition Is Patient to be Admitted: Transfer of Care - Disposition Disposition: Transfer of Care Disposition Time: 20:07 Condition: FAIR Forms: [employer] (Latvian) Patient Signed Over To: Branden Thapa
[2017-08-19 19:28] LABS: BASO % 0.2 % (0.0-2.0); EOS % 0.5 % (0.0-4.0); HEMOGLOBIN 9.5 g/dL (12.0-16.0); LYMPH # 0.5 K/uL (1.0-4.3); LYMPH % 5.2 % (20.0-40.0); MEAN CELL VOLUME 89.9 fl (81.0-99.0); MEAN CORPUSCULAR HEMOGLOBIN 29.2 pg (27.0-31.0); MEAN CORPUSCULAR HGB CONC 32.4 g/dL (33.0-37.0); MEAN PLATELET VOLUME 11.2 fl (7.2-11.7); MONO # 1.1 K/uL (0.0-0.8); MONO % 12.5 % (0.0-10.0); NEUT # 7.5 K/uL (1.8-7.0); NEUT % 81.6 % (50.0-75.0); NRBC % 0.1 % (0.0-0.0); PLATELET COUNT 167 K/uL (130-400); RBC 3.25 Mil/uL (3.80-5.20); RED CELL DISTRIBUTION WIDTH 17.4 % (11.5-14.5); WHITE BLOOD COUNT 9.1 K/uL (4.8-10.8)
[2017-08-19 19:44] LABS: VENOUS BLOOD GAS BASE EXCESS -2.9 mmol/L (0.0-2.0); VENOUS BLOOD GAS PCO2 41 mmHg (40-60); VENOUS BLOOD GAS PO2 31 mm/Hg (30-55); VENOUS BLOOD PH 7.35 (7.32-7.43)
[2017-08-19 19:46] LABS: ALB/GLOB RATIO 1.1 (1.0-2.1); ALBUMIN 3.4 g/dL (3.5-5.0)
[2017-08-19] MEDS ORDERED: Calcium Gluconate 4.65 mEq/10 ml Inj IV STA (19:54)
[2017-08-19 19:55] LABS: TROPONIN I 0.152 ng/mL (0.00-0.120)
[2017-08-19 20:09] LABS: BANDS 2 % (0-2); EOSINOPHIL 1 % (0-7); LYMPHOCYTE 8 % (20-50); MONOCYTE 11 % (0-10); NEUTROPHIL 78 % (42-75); TOTAL CELLS COUNTED 100
[2017-08-19 20:10] LABS: ANISOCYTOSIS MODERATE; HYPOCHROMIC SLIGHT; MICROCYTOSIS SLIGHT; PLATELET ESTIMATE NORMAL (NORMAL); POIKILOCYTOSIS SLIGHT; POLYCHROMIC SLIGHT
[2017-08-19 20:11] LABS: LARGE PLATELETS PRESENT
[2017-08-19] MEDS ORDERED: Calcium Gluconate 4.6 MEQ in Sodium Chloride 0.9% 100 ML IV ONE (20:15)
[2017-08-19] MEDS ORDERED: Piperacillin/Tazobact 4.5 GM in Sodium Chloride 0.9% 100 ML IVPB STA (21:18)
[2017-08-19] MEDS ORDERED: Albuterol-Ipratrop 3 mg / 0.5 (3 ml) UD ONE (21:35)
--- NOTE | 2017-08-19 22:18 | ED PDOC ---
- Laboratory Results Result Diagrams: 08/19/17 19:00 08/19/17 19:00 - ECG O2 Sat by Pulse Oximetry: 98 (RA) Pulse Ox Interpretation: Normal Disposition - Clinical Impression Clinical Impression: Syncope and collapse, Fever, Non-STEMI (non-ST elevated myocardial infarction) - Disposition Condition: FAIR
--- NOTE | 2017-08-19 22:23 | ED PDOC ---
- Laboratory Results Result Diagrams: 08/23/17 04:45 08/22/17 05:30 - ECG ECG Rhythm: Positive for: Atrial Flutter O2 Sat by Pulse Oximetry: 98 (RA) Pulse Ox Interpretation: Normal Medical Decision Making Medical Decision Making: Time: 2019 Plan: -- Cardio Consult -- Evaluated patient and found low calcium level of 5, elevated troponin and fever. -- CXR reviewed, Head CT noted -- Patient with multiple myeloma known history -- Patient is to be admitted to ICU under Dr. Hoff, [facility]. Upon evaluation now, patient is seen to be wheezing and coughing. Time: 2138 Plan: -- SOLU-Medrol 125 mg IVP -- Tylenol 650 ng PO -- Zosyn 4.5 gm Sodium Chloride 0.9% 100 ml IVPB -- Urinary Straight Catheter Scribe Attestation: Documented by Alli Damian, acting as a scribe for Dr. Branden Thapa MD. Provider Scribe Attestation: All medical record entries made by the Scribe were at my direction and personally dictated by me. I have reviewed the chart and agree that the record accurately reflects my personal performance of the history, physical exam, medical decision making, and the department course for this patient. I have also personally directed, reviewed and agree with the discharge instructions and disposition. Disposition - Clinical Impression Clinical Impression: Syncope and collapse, Fever, Non-STEMI (non-ST elevated myocardial infarction) - POA Present On Arrival: None - Disposition Disposition: Admitted as In-Patient Disposition Time: 21:40 Condition: STABLE
--- NOTE | 2017-08-19 23:30 | CP.PCM.CON ---
History of Present Illness - History of Present Illness History of Present Illness: Attending: Ciara Jane MD Reason for Consult: Critical Care Management The patient was seen and examined in the ED Chief Complaint: Syncope HPI: The Hx was obtained from the Patient and after review of the medical records. She is a 71 years old female with hx of DM II, COPD on home Oxygen, Rheumatoid Arthritis, Multiple Myeloma and recent pathologic fracture of the left acetabulum. She was brought to the ED because she had an episode of loss of consciousness and fell receiving trauma to the right lips inner and outer. her mouth and face while walking in the kitchen. She was dizzy before the fall and found bowel incontinent after being revived. She had been having diarrhea for the past 2 days. in the ED she referred non productive cough and chills. PMH: Anemia, Anxiety, Arthritis, Asthma, CAD, CHF, COPD, Depression, Diabetes, DVT; Emphysema, Fibromyalgia, Fractures, GERD, HTN, HLD; Hypothyroidism, Migraine, Parkinson's Disease, Pneumonia, PE, Rheumatoid Arthritis, Sleep Apnea PSH: Cholecystectomy, Endoscopy, Tonsillectomy SH: No illegal drug use; No Alcohol; Never smoked; livef with family FH: Significant for DM Allergies: Codeine Medication: Reviewed Review of Systems - Constitutional Constitutional: Chills, Fever. absent: Headache - EENT Eyes: Requires Corrective Lenses. absent: Diplopia, Floaters, Sees Flashes Ears: absent: Decreased Hearing, Tinnitus Nose/Mouth/Throat: absent: Epistaxis, Nasal Congestion Additional comments: laceration at the inner upper lip with bruise to the outer lips - Cardiovascular Cardiovascular: Dyspnea. absent: Chest Pain, Edema - Respiratory Respiratory: Cough, Dyspnea. absent: Chest Congestion - Gastrointestinal Gastrointestinal: Diarrhea. absent: Abdominal Pain, Constipation, Nausea, Vomiting - Genitourinary Genitourinary: absent: Dysuria, Flank Pain, Urinary Frequency - Musculoskeletal Musculoskeletal: Arthralgias - Integumentary Integumentary: absent: Pruritus, Rash Additional comments: laceration to inner lips - Neurological Neurological: absent: Confusion, Focal Weakness, Headaches, Paresthesias, Weakness - Psychiatric Psychiatric: Anxiety, Depression. absent: Confusion - Endocrine Endocrine: absent: Palpitations, Polydipsia, Polyphagia, Polyuria - Hematologic/Lymphatic Hematologic: absent: Easy Bleeding, Easy Bruising Past Patient History - Infectious Disease Hx of Infectious Diseases: None - Tetanus Immunizations Tetanus Immunization: Unknown - Past Medical History & Family History Past Medical History?: Yes - Past Social History Smoking Status: Never Smoked Chewing Tobacco Use: No Cigar Use: No Alcohol: None Drugs: Denies Home Situation {Lives}: With Family - CARDIAC Hx Congestive Heart Failure: Yes Hx Hypercholesterolemia: Yes Hx Hypertension: Yes - PULMONARY Hx Asthma: Yes Hx Chronic Obstructive Pulmonary Disease (COPD): Yes Hx Emphysema: Yes Hx Pneumonia: Yes Hx Pulmonary Embolism: Yes Hx Sleep Apnea: Yes - NEUROLOGICAL Hx Migraine: Yes Hx Parkinson's Disease: Yes - HEENT Hx Deafness: Yes - RENAL Hx Chronic Kidney Disease: No - ENDOCRINE/METABOLIC Hx Hypothyroidism: Yes - HEMATOLOGICAL/ONCOLOGICAL Hx Anemia: Yes - INTEGUMENTARY Hx Dermatological Problems: No - MUSCULOSKELETAL/RHEUMATOLOGICAL Hx Arthritis: Yes Hx Fractures: Yes Hx Rheumatoid Arthritis: Yes - GASTROINTESTINAL Hx Gastrointestinal Disorders: No - GENITOURINARY/GYNECOLOGICAL Hx Genitourinary Disorders: Yes - PSYCHIATRIC Hx Anxiety: Yes Hx Depression: Yes - SURGICAL HISTORY Hx Cholecystectomy: Yes Hx Tonsillectomy: Yes - ANESTHESIA Hx Anesthesia: Yes Hx Anesthesia Reactions: Yes (Resp. Distress) Meds Allergies/Adverse Reactions: Allergies Allergy/AdvReac Type Severity Reaction Status Date / Time codeine AdvReac syncope, Verified 08/19/17 17:50 diaphoresis Physical Exam - Constitutional Appears: No Acute Distress - Head Exam Head Exam: ATRAUMATIC, NORMAL INSPECTION, NORMOCEPHALIC - Eye Exam Eye Exam: EOMI, Normal appearance Pupil Exam: NORMAL ACCOMODATION, PERRL - ENT Exam ENT Exam: Mucous Membranes Moist, Normal Exam - Neck Exam Neck exam: Positive for: Full Rom. Negative for: Lymphadenopathy, Normal Inspection - Respiratory Exam Additional comments: Mild rales at both lung bases - Cardiovascular Exam Cardiovascular Exam: RRR, +S1, +S2 - GI/Abdominal Exam GI & Abdominal Exam: absent: Mass, Organomegaly Additional comments: Full, Soft, +ve bowel sounds, nontender - Rectal Exam Rectal Exam: Deferred - Extremities Exam Additional comments: Pain to the left hip/ back/ knees - Back Exam Back exam: NORMAL INSPECTION. absent: CVA tenderness (L), CVA tenderness (R) - Neurological Exam Neurological exam: Alert, CN II-XII Intact, Oriented x3, Reflexes Normal - Psychiatric Exam Psychiatric exam: Normal Affect, Normal Mood - Skin Skin Exam: Dry, Intact, Normal Color, Warm Results - Vital Signs Recent Vital Signs: Last Vital Signs Temp 97.3 F L 08/19/17 21:30 Pulse 94 H 08/19/17 21:30 Resp 16 08/19/17 21:30 BP 115/54 L 08/19/17 21:30 Pulse Ox 98 08/19/17 22:23 - Labs Result Diagrams: 08/19/17 19:00 08/19/17 19:00 Labs: Laboratory Results - last 24 hr 08/19/17 08/19/17 08/19/17 19:00 19:00 19:22 WBC 9.1 RBC 3.25 L Hgb 9.5 L D Hct 29.2 L MCV 89.9 D MCH 29.2 MCHC 32.4 L RDW 17.4 H Plt Count 167 D MPV 11.2 Neut % (Auto) 81.6 H Lymph % (Auto) 5.2 L Linn % (Auto) 12.5 H Eos % (Auto) 0.5 Baso % (Auto) 0.2 Neut # (Auto) 7.5 H Lymph # (Auto) 0.5 L Linn # (Auto) 1.1 H Eos # (Auto) 0.0 Baso # (Auto) 0.0 Neutrophils % (Manual) 78 H Band Neutrophils % 2 Lymphocytes % (Manual) 8 L Monocytes % (Manual) 11 H Eosinophils % (Manual) 1 Platelet Estimate Normal Large Platelets Present Polychromasia Slight Hypochromasia (manual) Slight Poikilocytosis (manual Slight Anisocytosis (manual) Moderate Microcytosis (manual) Slight pO2 VBG pH VBG pCO2 VBG HCO3 VBG Total CO2 VBG O2 Sat (Calc) VBG Base Excess VBG Potassium Glucose Lactate FiO2 Sodium 136 Potassium 4.1 Chloride 102 Carbon Dioxide 22 Anion Gap 16 BUN 28 H Creatinine 1.2 Est GFR ( Amer) 54 Est GFR (Non-Af Amer) 44 POC Glucose (mg/dL) 186 H Random Glucose 200 H Calcium 5.0 L* D Total Bilirubin 0.8 AST 25 ALT 31 Alkaline Phosphatase 77 Troponin I 0.1520 H* Total Protein 6.4 Albumin 3.4 L Globulin 3.1 Albumin/Globulin Ratio 1.1 Venous Blood Potassium 08/19/17 19:30 WBC RBC Hgb Hct MCV MCH MCHC RDW Plt Count MPV Neut % (Auto) Lymph % (Auto) Linn % (Auto) Eos % (Auto) Baso % (Auto) Neut # (Auto) Lymph # (Auto) Linn # (Auto) Eos # (Auto) Baso # (Auto) Neutrophils % (Manual) Band Neutrophils % Lymphocytes % (Manual) Monocytes % (Manual) Eosinophils % (Manual) Platelet Estimate Large Platelets Polychromasia Hypochromasia (manual) Poikilocytosis (manual Anisocytosis (manual) Microcytosis (manual) pO2 31 VBG pH 7.35 VBG pCO2 41 VBG HCO3 21.5 VBG Total CO2 23.9 VBG O2 Sat (Calc) 59.0 VBG Base Excess -2.9 L VBG Potassium 3.9 Glucose 225 H Lactate 1.8 FiO2 21.0 Sodium 134.0 Potassium Chloride 104.0 Carbon Dioxide Anion Gap BUN Creatinine Est GFR ( Amer) Est GFR (Non-Af Amer) POC Glucose (mg/dL) Random Glucose Calcium Total Bilirubin AST ALT Alkaline Phosphatase Troponin I Total Protein Albumin Globulin Albumin/Globulin Ratio Venous Blood Potassium 3.9 - Imaging and Cardiology CT scan - head Status: Image reviewed by me, Report reviewed by me Additional comment: EXAM: CT Head Without Intravenous Contrast FINDINGS: Brain: There is no evidence of intracranial hemorrhage. There is mild diffuse cerebral atrophy present. There is mild diffuse heterogeneity of the white matter attenuation, consistent with chronic white matter ischemic changes. Benign bilateral globus pallidus calcifications are present. Midline shift: No midline shift. Ventricles: The ventricular system demonstrates mild diffuse compensatory enlargement. Bones/joints: Adjacent density calvarium with multiple small lucencies present throughout the diploic space. No calvarial fracture. Soft tissues: Numerous small nodules throughout the subcutaneous extracranial soft tissues measuring up to 10 mm along the superior right frontal bone and left parietal bone (coronal images 25, 41, 49, 50, 56, and 70). Vasculature: Atherosclerotic vascular calcification of the V4 segment vertebral and parasellar carotid arteries. Sinuses: Mucosal thickening of the ethmoid sinuses. Frothy material within the right sphenoid sinus, slightly increased from the 09/30/2016 exam. Mastoid air cells: No mastoid effusion. Auditory system: The external auditory canals are patent. Orbits: There have been bilateral lens replacements. IMPRESSION: 1. No acute intracranial abnormality. 2. Mild cortical volume loss and sequela of chronic microvascular disease. 3. Heterogeneous appearance of the skull with small lucencies present throughout the diploic space, concerning for metastatic disease or multiple myeloma. These findings are unchanged from 09/30/2016. 4. Multiple subcutaneous soft tissue masses are present throughout the extracranial soft tissues. Correlate with history and examination findings. Chest x-ray Status: Image reviewed by me Additional comment: Poor inspiration Mild congestion to both lung fideds Assessment & Plan - Assessment and Plan (Free Text) Assessment: #.Syncope and Collapse #. Diarrhea #. Dehydration #. SIRS #. Elevated Troponin #. DMII with hyperglydcemia #. Multiple Myleloma #. Anemia #. CAD Plan: 71 years old female with hx of DM II, COPD on home Oxygen, Rheumatoid Arthritis , Multiple Myeloma and recent pathologic fracture of the left acetabulum. She was brought to the ED because she had an episode of loss of consciousness and fell receiving trauma to the right lips inner and outer. her mouth and face while walking in the kitchen. She was dizzy before the fall and found bowel incontinent after being revived. She had been having diarrhea for the past 2 days. in the ED she referred non productive cough and chills. #. Syncope and Collapse Vasovagal vs orthostatic, Seizure less likely - CT head with no intracraneal abnormality - Telemetry monitoring for Arrhythmias - EEG - Orthostatic blood pressures #. Diarrhea - Stool Culture - C Diff Toxins #. Dehydration - Low dose IV Fluids - Follow Renal labs #. SIRS with Tachycardia and Fever - Follow Blood C&S - Follow Stool cultures #. Elevated Troponin - Serial troponin #. DMII with hyperglydcemia - Regular Insulin sliding scale according to accucheck - Glucophage #. Multiple Myleloma - Follow as OP #. Anemia Caused by multiple Myeloma #. CAD - ASA/lipitor #. DVT prophylaxis with SCD and Lovenox #. Code STatus: Full - Date & Time Date: 08/19/17 Time: 23:30
[2017-08-19 23:34] LABS: GRANULAR CAST 66 /lpf (0-1); SQUAMOUS EPITHIAL 1 /hpf (0-5); URINE AMORPHOUS SEDIMENT OCC /ul (<OCC); URINE BACTERIA OCC (<OCC); URINE BILIRUBIN NEGATIVE (NEGATIVE); URINE BLOOD NEGATIVE (NEGATIVE); URINE CLARITY CLOUDY (Clear); URINE COLOR YELLOW (YELLOW); URINE GLUCOSE (UA) NEG (Normal); URINE HYALINE CAST 0-2 /hpf (0-2); URINE LEUKOCYTE ESTERASE NEG Leu/uL (Negative); URINE PROTEIN 100 mg/dL (NEGATIVE); URINE UROBILINOGEN 0.2-1.0 mg/dL (0.2-1.0)
[2017-08-20] MEDS ORDERED: Dextrose 50% SYRINGE Inj (50 ml) IV PRN (00:06)
[2017-08-20] MEDS ORDERED: Glucagon Recombinant 1 mg Inj IM PRN (00:06)
[2017-08-20] MEDS ORDERED: Insulin Detemir 100 Units/ml Inj SC SCH ×3 (00:15→22:00)
[2017-08-20] MEDS ORDERED: Albuterol-Ipratrop 3 mg / 0.5 (3 ml) UD INH STA (00:29)
[2017-08-20] MEDS: Magnesium Sulfate 1 gm in D5W 1 GM/100 ML BAG IVPB SCH ×3 (00:30→23:00)
--- NOTE | 2017-08-20 04:16 | CP.PCM.HP ---
History of Present Illness - History of Present Illness History of Present Illness: 71 yr old F brought in by EMS with complaint of a unwitnessed syncopal episode at home prior to arrival. PMHx includes Multiple Myeloma, hx of multiple fractures (recent left hip fracture), IDDM type 2, HTN, Pulm HTN, COPD on home oxygen. Patient reports she was walking in her bedroom when she suddenly felt light-headed and fell to the floor. Reports hitting her face on the floor and bleeding from her lip. Reports urinary and fecal incontinence during the episode. She was able to sit up on her own and her daughter arrived shortly after and called EMS. Associated symptoms are diarrhea since yesterday, today: chills, dizziness, mild chest pain, headache and overall body weakness. Denies nausea, vomiting, one-sided weakness or numbness, difficulty swallowing or change in vision. Had a sandwhich 1 hr ago. Reports chronic wet cough at baseline for which her edger automatic recently gave her tapered PO steroids which she finished a few days ago. PMD: Dr. Neumann Circular Knife Machine Cutter: Dr. Cisneros PMH: Multiple Myeloma, hx of multiple fractures (recent left hip fracture), IDDM type 2, HTN, Pulm HTN, COPD on home oxygen and CPAP, hx of PE s/p IVC filter in 2014, GERD, Depression SurgHx: IVC filter, Cholecystectomy, tonsillectomy FMHx: noncontributory SocHx: denies tobacco/Etoh or drugs Medications: Enalapril 2.5mg PO QD, Clonazepam 0.5 mg PO QD, Buspirone 10mg PO Q12, Atorvastatin 20mg PO QHS, Aripiprazole 10mg PO QHS, Furosemide 20 mg PO Q48H, Aspirin 81 mg PO QD, Levothyroxine 75 mcg PO QD, Dexamethasone 20mg once a week on mondays, Riociguat 2mg PO TID, Hydrocortisone 10mg PO QHS, Insulin Levemir 14 units SC QAM, Insulin Levemir 10 units SC QPM, Insulin Lispro 5 units SC TID with meals, Metformin 500mg PO BID, Allergies: Codeine sulfate (dizziness) ED course: BP BP 97/55 mmHg, HR 104, Resp 20, 95% on 2L O2 via nasal cannula, Temp 101.3F -EKG: sinus tachycardia at 104 bpm with T wave inversions -CXR: stable compared to last (02/2017: chronic/stable cardiomegaly, questionable medial basilar atelectasis or infiltrate right base) -Head CT w/o contrast: No acute ICH abnormality, small lucencies of skull concerning for metastatic disease or multiple myeloma-unchanged from 09/2016 -CBC: WBC 9.1, H/H 9.5/29.2, plts 167, Neut % 81.6 -CMP: Na 136, K+ 4.1, Cl 102, HCO3 22, anion gap 16, BUN 28, Cr 1.2, eGFR 44, random glucose 200 -calcium 5.0 -AST 25, ALT 31, alk phos 77 -troponin 0.1520 -PT 11, PTT 31.5, INR 1.0 -VBG: pH 7.35, pO2 31, pCO2 41, HCO3 21.5, Lactate 1.8 -UA negative -blood culture, urine culture -ED treatment: Tylenol 975mg PO once, Calcium gluconate 4.6 meq IV once, NS 1L bolus, Methylprednisolone 125mg IVP once, Zosyn 4.5gm IV once, Tdap vaccine, saeed catheter placed, Cardiology consult: Dr. Jeffery Present on Admission - Present on Admission Any Indicators Present on Admission: Yes History of DVT/PE: Yes History of Uncontrolled Diabetes: No Urinary Catheter: No Decubitus Ulcer Present: No History Surgical Site Infection Following: None Review of Systems - Constitutional Constitutional: Chills - EENT Eyes: absent: Blurred Vision, Change in Vision Ears: absent: Dizziness Nose/Mouth/Throat: absent: Nasal Congestion, Nasal Discharge, Neck Pain - Breasts Breasts: absent: Skin Changes - Cardiovascular Cardiovascular: Chest Pain, Dyspnea (chronic, on supplemental O2 at home 2L via nasal cannula, on CPAP at night), Leg Edema (chronic), Syncope - Respiratory Respiratory: Cough (chronic). absent: Hemoptysis - Gastrointestinal Gastrointestinal: Diarrhea. absent: Abdominal Pain, Nausea - Genitourinary Genitourinary: Urinary Incontinence. absent: Difficulty Urinating, Dysuria - Musculoskeletal Musculoskeletal: Arthralgias - Integumentary Integumentary: Bleeding Lesions (lip bled s/p fall). absent: Rash - Neurological Neurological: Headaches (today after fall), Weakness (overall). absent: Confusion, Numbness - Psychiatric Psychiatric: absent: Anxiety, Homicidal Ideation, Suicidal Ideation - Endocrine Endocrine: absent: Polydipsia, Polyphagia, Polyuria - Hematologic/Lymphatic Hematologic: absent: Easy Bleeding, Easy Bruising Past Patient History - Infectious Disease Hx of Infectious Diseases: None - Tetanus Immunizations Tetanus Immunization: Unknown - Past Medical History & Family History Past Medical History?: Yes - Past Social History Alcohol: None Drugs: Denies - CARDIAC Hx Congestive Heart Failure: Yes Hx Hypercholesterolemia: Yes Hx Hypertension: Yes - PULMONARY Hx Asthma: Yes Hx Chronic Obstructive Pulmonary Disease (COPD): Yes Hx Emphysema: Yes Hx Pneumonia: Yes Hx Pulmonary Embolism: Yes Hx Sleep Apnea: Yes - NEUROLOGICAL Hx Migraine: Yes Hx Parkinson's Disease: Yes - HEENT Hx Deafness: Yes - RENAL Hx Chronic Kidney Disease: No - ENDOCRINE/METABOLIC Hx Hypothyroidism: Yes - HEMATOLOGICAL/ONCOLOGICAL Hx Anemia: Yes - INTEGUMENTARY Hx Dermatological Problems: No - MUSCULOSKELETAL/RHEUMATOLOGICAL Hx Arthritis: Yes Hx Fractures: Yes Hx Rheumatoid Arthritis: Yes - GASTROINTESTINAL Hx Gastrointestinal Disorders: No - GENITOURINARY/GYNECOLOGICAL Hx Genitourinary Disorders: Yes - PSYCHIATRIC Hx Anxiety: Yes Hx Depression: Yes - SURGICAL HISTORY Hx Cholecystectomy: Yes Hx Tonsillectomy: Yes - ANESTHESIA Hx Anesthesia: Yes Hx Anesthesia Reactions: Yes (Resp. Distress) Meds Allergies/Adverse Reactions: Allergies Allergy/AdvReac Type Severity Reaction Status Date / Time codeine AdvReac syncope, Verified 08/19/17 17:50 diaphoresis Physical Exam - Constitutional Appears: No Acute Distress, Chronically Ill - Head Exam Head Exam: absent: ATRAUMATIC (inner right lip with 0.3 cm superficial laceration, not actively bleeding) - Eye Exam Eye Exam: EOMI, PERRL - ENT Exam ENT Exam: Mucous Membranes Moist - Neck Exam Neck exam: Positive for: Full Rom. Negative for: Lymphadenopathy - Respiratory Exam Respiratory Exam: Wheezes (mild expiratory ), NORMAL BREATHING PATTERN (on 2L supplemental O2 via nasal cannula). absent: Rales, Rhonchi - Cardiovascular Exam Cardiovascular Exam: REGULAR RHYTHM, +S1, +S2 - GI/Abdominal Exam GI & Abdominal Exam: Normal Bowel Sounds, Soft. absent: Tenderness - Extremities Exam Extremities exam: Positive for: full ROM (constant bilateral LE tremor), pedal edema (+1 bilaterally), tenderness (bilateral distal LE ), pedal pulses present - Back Exam Back exam: absent: CVA tenderness (L), CVA tenderness (R) - Neurological Exam Neurological exam: Alert, CN II-XII Intact (grossly), Oriented x3 - Psychiatric Exam Psychiatric exam: Flat Affect - Skin Skin Exam: Dry, Normal Color, Warm Results - Vital Signs Recent Vital Signs: Last Vital Signs Temp 97.9 F 08/20/17 00:40 Pulse 79 08/20/17 00:45 Resp 18 08/20/17 00:45 BP 114/35 L 08/20/17 01:42 Pulse Ox 99 08/20/17 00:40 - Labs Result Diagrams: 08/19/17 19:00 08/19/17 19:00 Labs: Laboratory Results - last 24 hr 08/19/17 08/19/17 08/19/17 19:00 19:00 19:22 WBC 9.1 RBC 3.25 L Hgb 9.5 L D Hct 29.2 L MCV 89.9 D MCH 29.2 MCHC 32.4 L RDW 17.4 H Plt Count 167 D MPV 11.2 Neut % (Auto) 81.6 H Lymph % (Auto) 5.2 L [place] % (Auto) 12.5 H Eos % (Auto) 0.5 Baso % (Auto) 0.2 Neut # (Auto) 7.5 H Lymph # (Auto) 0.5 L [place] # (Auto) 1.1 H Eos # (Auto) 0.0 Baso # (Auto) 0.0 Neutrophils % (Manual) 78 H Band Neutrophils % 2 Lymphocytes % (Manual) 8 L Monocytes % (Manual) 11 H Eosinophils % (Manual) 1 Platelet Estimate Normal Large Platelets Present Polychromasia Slight Hypochromasia (manual) Slight Poikilocytosis (manual Slight Anisocytosis (manual) Moderate Microcytosis (manual) Slight pO2 VBG pH VBG pCO2 VBG HCO3 VBG Total CO2 VBG O2 Sat (Calc) VBG Base Excess VBG Potassium Glucose Lactate FiO2 Sodium 136 Potassium 4.1 Chloride 102 Carbon Dioxide 22 Anion Gap 16 BUN 28 H Creatinine 1.2 Est GFR ( Amer) 54 Est GFR (Non-Af Amer) 44 POC Glucose (mg/dL) 186 H Random Glucose 200 H Calcium 5.0 L* D Total Bilirubin 0.8 AST 25 ALT 31 Alkaline Phosphatase 77 Troponin I 0.1520 H* Total Protein 6.4 Albumin 3.4 L Globulin 3.1 Albumin/Globulin Ratio 1.1 Venous Blood Potassium Urine Color Urine Clarity Urine pH Ur Specific [place] Urine Protein Urine Glucose (UA) Urine Ketones Urine Blood Urine Nitrate Urine Bilirubin Urine Urobilinogen Ur Leukocyte Esterase Urine RBC (Auto) Urine Microscopic WBC Ur Squamous Epith Cells Amorphous Sediment Urine Bacteria Hyaline Casts Granular Casts (Auto) 08/19/17 08/19/17 08/20/17 19:30 23:20 01:20 WBC RBC Hgb Hct MCV MCH MCHC RDW Plt Count MPV Neut % (Auto) Lymph % (Auto) [place] % (Auto) Eos % (Auto) Baso % (Auto) Neut # (Auto) Lymph # (Auto) [place] # (Auto) Eos # (Auto) Baso # (Auto) Neutrophils % (Manual) Band Neutrophils % Lymphocytes % (Manual) Monocytes % (Manual) Eosinophils % (Manual) Platelet Estimate Large Platelets Polychromasia Hypochromasia (manual) Poikilocytosis (manual Anisocytosis (manual) Microcytosis (manual) pO2 31 VBG pH 7.35 VBG pCO2 41 VBG HCO3 21.5 VBG Total CO2 23.9 VBG O2 Sat (Calc) 59.0 VBG Base Excess -2.9 L VBG Potassium 3.9 Glucose 225 H Lactate 1.8 FiO2 21.0 Sodium 134.0 Potassium Chloride 104.0 Carbon Dioxide Anion Gap BUN Creatinine Est GFR ( Amer) Est GFR (Non-Af Amer) POC Glucose (mg/dL) 273 H Random Glucose Calcium Total Bilirubin AST ALT Alkaline Phosphatase Troponin I Total Protein Albumin Globulin Albumin/Globulin Ratio Venous Blood Potassium 3.9 Urine Color Yellow Urine Clarity Cloudy Urine pH 5.0 Ur Specific [place] 1.017 Urine Protein 100 Urine Glucose (UA) Neg Urine Ketones Negative Urine Blood Negative Urine Nitrate Negative Urine Bilirubin Negative Urine Urobilinogen 0.2-1.0 Ur Leukocyte Esterase Neg Urine RBC (Auto) 1 Urine Microscopic WBC 3 Ur Squamous Epith Cells 1 Amorphous Sediment Occ H Urine Bacteria Occ H Hyaline Casts 0-2 Granular Casts (Auto) 66 Assessment & Plan - Assessment and Plan (Free Text) Assessment: 71 yr old F admitted for syncopal episode and elevated troponin, SIRS with PMHx including Multiple Myeloma, hx of multiple fractures (recent left hip fracture) , IDDM type 2, HTN, Pulm HTN, COPD on home oxygen and CPAP, hx of PE s/p IVC filter in 2014. 1. Syncopal episode -acute on chronic (hx multiple episode of dizziness, multiple falls); r/o ACS vs -Head CT w/o contrast: No acute ICH abnormality, small lucencies of skull concerning for metastatic disease or multiple myeloma-unchanged from 09/2016 -EKG: sinus tachycardia at 104 bpm with T wave inversions (unchanged from past EKG's) -troponin 0.1520 -prior catheterizations showed normal coronaries with Pulm HTN (most recent 10/20) -Echo 05/11/17: normal LVEF 65-70% with mild paradoxical septal motion -Admit to ICU -cardiology consult appreciated: will follow recommendations -f/u serial troponins 2. SIRS -temp 101.3 F, tachycardia 104 -no leukocytosis, CXR at baseline, UA negative -Zosyn 4.5gm IV once given in ED -f/u blood and urine culture, stool culture, c-diff toxin, pro-calcitonin 3. Hypocalcemia -acute, recurrent -serum calcium 5.0 -Calcium gluconate 4.6 meq IV once given in ED -f/u BMP 4. COPD -chronic, stable -Methylprednisolone 125mg IVP once given in ED -VBG: pH 7.35, pO2 31, pCO2 41, HCO3 21.5, Lactate 1.8 -continue home medications: Duoneb INH solution Q4 PRN SOB -continue home regimen: 2L supplemental O2 via nasal cannula during the day, CPAP at night -f/u pro-BNP 5. Pulmonary HTN -chronic, stable -continue home medications: Riociguat 2mg PO TID, Furosemide 20 mg PO Q48H 6. HTN -chronic, controlled -held home medication due to hypotension on admission: Enalapril 2.5mg PO QD -continue with Aspirin 81 mg PO QD -monitor BP 7. IDDM type 2 -chronic, controlled -continue home medications: Insulin Levemir 14 units SC QAM, Insulin Levemir 10 units SC QPM, Insulin Lispro 5 units SC TID with meals, Metformin 500mg PO BID, Atorvastatin 20mg PO QHS -hypoglycemia protocol in place 8. Hypothyroidism -chronic, controlled -continue home medications: Levothyroxine 75 mcg PO QD 9. Restless leg syndrome -chronic -continue home medications: Clonazepam 0.5 mg PO QD 10. Depression -chronic, controlled -continue home medications: , Buspirone 10mg PO Q12, Aripiprazole 10mg PO QHS 11. Multiple Myeloma -chronic -continue home medications: Dexamethasone 20mg once a week on mondays, Hydrocortisone 10mg PO QHS -patient follow regularly with heme/onc Dr. Vilchis 12. Anemia -acute on chronic, likely secondary to multiple myeloma -H/H 9.5/29.2 -f/u CBC 13. DVT prophylaxis -Lovenox 40 mg SC QD - Date & Time Date: 08/19/17 Time: 21:30
[2017-08-20] MEDS ORDERED: Ipratropium 0.02% Inhal Soln (0.5 mg/2.5 ml) UD IH PRN (04:59)
[2017-08-20 05:41] LABS: BASO % 0.2 % (0.0-2.0); HEMOGLOBIN 9.3 g/dL (12.0-16.0); LYMPH # 0.4 K/uL (1.0-4.3); LYMPH % 4.2 % (20.0-40.0); MEAN CELL VOLUME 89.4 fl (81.0-99.0); MEAN CORPUSCULAR HEMOGLOBIN 28.9 pg (27.0-31.0); MEAN CORPUSCULAR HGB CONC 32.3 g/dL (33.0-37.0); MEAN PLATELET VOLUME 11.3 fl (7.2-11.7); MONO # 0.3 K/uL (0.0-0.8); MONO % 3.8 % (0.0-10.0); NEUT # 7.8 K/uL (1.8-7.0); NEUT % 91.8 % (50.0-75.0); NRBC % 0.1 % (0.0-0.0); PLATELET COUNT 140 K/uL (130-400); RBC 3.23 Mil/uL (3.80-5.20); RED CELL DISTRIBUTION WIDTH 17.8 % (11.5-14.5); WHITE BLOOD COUNT 8.5 K/uL (4.8-10.8)
[2017-08-20 06:37] LABS: ALB/GLOB RATIO 1.1 (1.0-2.1); ALBUMIN 3.2 g/dL (3.5-5.0); CALCIUM 4.9 mg/dL (8.4-10.2)
[2017-08-20] MEDS: Levothyroxine 75 MCG TAB PO SCH (06:53)
[2017-08-20 07:17] LABS: BANDS 1 % (0-2); LYMPHOCYTE 2 % (20-50); MONOCYTE 4 % (0-10); NEUTROPHIL 93 % (42-75); PLATELET ESTIMATE NORMAL (NORMAL); TOTAL CELLS COUNTED 100
[2017-08-20 07:18] LABS: HYPOCHROMIC SLIGHT; LARGE PLATELETS PRESENT
--- NOTE | 2017-08-20 07:52 | RAD ---
HISTORY: fever COMPARISON: Chest radiographs 03/05/2017. FINDINGS: LUNGS: Elevated right hemidiaphragm again appreciated likely causing crowding of the medial right basilar bronchovascular markings. Limited atelectasis is not excluded here with infiltrate not favored but not completely excluded. No left-sided airspace disease. PLEURA: No significant pleural effusion identified, no pneumothorax apparent. CARDIOVASCULAR: Cardiomegaly is stable with mild interval pulmonary vascular congestion questioned. OSSEOUS STRUCTURES: No significant abnormalities. VISUALIZED UPPER ABDOMEN: Normal. OTHER FINDINGS: None. IMPRESSION: Questionable interval mild pulmonary vascular congestion. Stable cardiomegaly. Elevated right hemidiaphragm again evident likely crowding the medial basilar bronchovascular markings though limited medial basilar atelectasis is not excluded.
--- NOTE | 2017-08-20 08:10 | CP.PCM.CON ---
History of Present Illness - History of Present Illness History of Present Illness: 71 years old female with hx of DM II, COPD on home Oxygen, Rheumatoid Arthritis, Multiple Myeloma and recent pathologic fracture of the left acetabulum. She was brought to the ED because she had an episode of loss of consciousness and fell receiving trauma to the right lips her mouth and face She was dizzy before the fall and found bowel incontinent after being revived. She had been having diarrhea for the past 2 days. . PMH: Anemia, Anxiety, Arthritis, Asthma, CAD, CHF, COPD, Depression, Diabetes, DVT; Emphysema, Fibromyalgia, Fractures, GERD, HTN, HLD; Hypothyroidism, Migraine, Parkinson's Disease, Pneumonia, PE, Rheumatoid Arthritis, Sleep Apnea PSH: Cholecystectomy, Endoscopy, Tonsillectomy one troponin was elevated Past Patient History - Infectious Disease Hx of Infectious Diseases: None - Tetanus Immunizations Tetanus Immunization: Unknown - Past Medical History & Family History Past Medical History?: Yes - Past Social History Smoking Status: Never Smoked Chewing Tobacco Use: No Cigar Use: No Alcohol: None Drugs: Denies Home Situation {Lives}: With Family - CARDIAC Hx Congestive Heart Failure: Yes Hx Hypercholesterolemia: Yes Hx Hypertension: Yes - PULMONARY Hx Asthma: Yes Hx Chronic Obstructive Pulmonary Disease (COPD): Yes Hx Emphysema: Yes Hx Pneumonia: Yes Hx Pulmonary Embolism: Yes Hx Sleep Apnea: Yes - NEUROLOGICAL Hx Migraine: Yes Hx Parkinson's Disease: Yes - HEENT Hx Deafness: Yes - RENAL Hx Chronic Kidney Disease: No - ENDOCRINE/METABOLIC Hx Hypothyroidism: Yes - HEMATOLOGICAL/ONCOLOGICAL Hx Anemia: Yes - INTEGUMENTARY Hx Dermatological Problems: No - MUSCULOSKELETAL/RHEUMATOLOGICAL Hx Arthritis: Yes Hx Fractures: Yes Hx Rheumatoid Arthritis: Yes - GASTROINTESTINAL Hx Gastrointestinal Disorders: No - GENITOURINARY/GYNECOLOGICAL Hx Genitourinary Disorders: Yes - PSYCHIATRIC Hx Anxiety: Yes Hx Depression: Yes - SURGICAL HISTORY Hx Cholecystectomy: Yes Hx Tonsillectomy: Yes - ANESTHESIA Hx Anesthesia: Yes Hx Anesthesia Reactions: Yes (Resp. Distress) Meds Allergies/Adverse Reactions: Allergies Allergy/AdvReac Type Severity Reaction Status Date / Time codeine AdvReac syncope, Verified 08/19/17 17:50 diaphoresis - Medications Medications: Current Medications Albuterol/Ipratropium (Duoneb 3 Mg/0.5 Mg (3 Ml) Ud) 3 ml INH RQ4 PRN PRN Reason: Shortness of Breath Aripiprazole (Abilify) 10 mg PO HS [facility] Aspirin (Ecotrin) 81 mg PO DAILY [facility] Buspirone HCl (Buspar) 10 mg PO Q12H [facility] Last Admin: 08/20/17 01:42 Dose: 10 mg Clonazepam (Klonopin) 0.5 mg PO DAILY PRN PRN Reason: Anxiety Dexamethasone (Decadron) 20 mg PO MON [facility] Dextrose (Dextrose 50% Inj) 0 ml IV STAT PRN; Protocol PRN Reason: Hypoglycemia Protocol Dextrose (Glutose 15) 0 gm PO ONCE PRN; Protocol PRN Reason: Hypoglycemia Protocol Enalapril Maleate (Vasotec) 2.5 mg PO DAILY [facility] Enoxaparin Sodium (Lovenox) 40 mg SC DAILY [facility] PRN Reason: Protocol Furosemide (Lasix) 20 mg PO Q48H [facility] Last Admin: 08/20/17 01:42 Dose: 20 mg Glucagon (Glucagen Diagnostic Kit) 0 mg IM STAT PRN; Protocol PRN Reason: Hypoglycemia Protocol Home Med (Riociguat [Adempas]) 2 mg PO TID [facility] Hydrocortisone (Cortef) 10 mg PO HS [facility] Last Admin: 08/20/17 01:42 Dose: 10 mg Insulin Detemir (Levemir) 14 units SC QAM [facility] Insulin Detemir (Levemir) 10 units SC [facility] Last Admin: 08/20/17 01:42 Dose: 10 units Insulin Human Lispro (Humalog) 5 units SC TID [facility] Levothyroxine Sodium (Synthroid) 75 mcg PO DAILY@0630 [facility] Last Admin: 08/20/17 06:53 Dose: 75 mcg Metformin HCl (Glucophage) 500 mg PO BID [facility] Pantoprazole Sodium (Protonix Ec Tab) 40 mg PO DAILY [facility] Results - Vital Signs Recent Vital Signs: Last Vital Signs Temp 97.7 F 08/20/17 04:00 Pulse 61 08/20/17 07:57 Resp 23 08/20/17 06:00 BP 123/54 L 08/20/17 06:00 Pulse Ox 91 L 08/20/17 06:00 - Labs Result Diagrams: 08/20/17 04:35 08/20/17 04:35 Labs: Laboratory Results - last 24 hr 08/19/17 08/19/17 08/19/17 19:00 19:00 19:22 WBC 9.1 RBC 3.25 L Hgb 9.5 L D Hct 29.2 L MCV 89.9 D MCH 29.2 MCHC 32.4 L RDW 17.4 H Plt Count 167 D MPV 11.2 Neut % (Auto) 81.6 H Lymph % (Auto) 5.2 L [place] % (Auto) 12.5 H Eos % (Auto) 0.5 Baso % (Auto) 0.2 Neut # (Auto) 7.5 H Lymph # (Auto) 0.5 L [place] # (Auto) 1.1 H Eos # (Auto) 0.0 Baso # (Auto) 0.0 Neutrophils % (Manual) 78 H Band Neutrophils % 2 Lymphocytes % (Manual) 8 L Monocytes % (Manual) 11 H Eosinophils % (Manual) 1 Platelet Estimate Normal Large Platelets Present Polychromasia Slight Hypochromasia (manual) Slight Poikilocytosis (manual Slight Anisocytosis (manual) Moderate Microcytosis (manual) Slight pO2 VBG pH VBG pCO2 VBG HCO3 VBG Total CO2 VBG O2 Sat (Calc) VBG Base Excess VBG Potassium Glucose Lactate FiO2 Sodium 136 Potassium 4.1 Chloride 102 Carbon Dioxide 22 Anion Gap 16 BUN 28 H Creatinine 1.2 Est GFR ( Amer) 54 Est GFR (Non-Af Amer) 44 POC Glucose (mg/dL) 186 H Random Glucose 200 H Calcium 5.0 L* D Total Bilirubin 0.8 AST 25 ALT 31 Alkaline Phosphatase 77 Troponin I 0.1520 H* NT-Pro-B Natriuret Pep Total Protein 6.4 Albumin 3.4 L Globulin 3.1 Albumin/Globulin Ratio 1.1 Venous Blood Potassium Urine Color Urine Clarity Urine pH Ur Specific [place] Urine Protein Urine Glucose (UA) Urine Ketones Urine Blood Urine Nitrate Urine Bilirubin Urine Urobilinogen Ur Leukocyte Esterase Urine RBC (Auto) Urine Microscopic WBC Ur Squamous Epith Cells Amorphous Sediment Urine Bacteria Hyaline Casts Granular Casts (Auto) 08/19/17 08/19/17 08/20/17 19:30 23:20 01:20 WBC RBC Hgb Hct MCV MCH MCHC RDW Plt Count MPV Neut % (Auto) Lymph % (Auto) [place] % (Auto) Eos % (Auto) Baso % (Auto) Neut # (Auto) Lymph # (Auto) [place] # (Auto) Eos # (Auto) Baso # (Auto) Neutrophils % (Manual) Band Neutrophils % Lymphocytes % (Manual) Monocytes % (Manual) Eosinophils % (Manual) Platelet Estimate Large Platelets Polychromasia Hypochromasia (manual) Poikilocytosis (manual Anisocytosis (manual) Microcytosis (manual) pO2 31 VBG pH 7.35 VBG pCO2 41 VBG HCO3 21.5 VBG Total CO2 23.9 VBG O2 Sat (Calc) 59.0 VBG Base Excess -2.9 L VBG Potassium 3.9 Glucose 225 H Lactate 1.8 FiO2 21.0 Sodium 134.0 Potassium Chloride 104.0 Carbon Dioxide Anion Gap BUN Creatinine Est GFR ( Amer) Est GFR (Non-Af Amer) POC Glucose (mg/dL) 273 H Random Glucose Calcium Total Bilirubin AST ALT Alkaline Phosphatase Troponin I NT-Pro-B Natriuret Pep Total Protein Albumin Globulin Albumin/Globulin Ratio Venous Blood Potassium 3.9 Urine Color Yellow Urine Clarity Cloudy Urine pH 5.0 Ur Specific [place] 1.017 Urine Protein 100 Urine Glucose (UA) Neg Urine Ketones Negative Urine Blood Negative Urine Nitrate Negative Urine Bilirubin Negative Urine Urobilinogen 0.2-1.0 Ur Leukocyte Esterase Neg Urine RBC (Auto) 1 Urine Microscopic WBC 3 Ur Squamous Epith Cells 1 Amorphous Sediment Occ H Urine Bacteria Occ H Hyaline Casts 0-2 Granular Casts (Auto) 66 08/20/17 08/20/17 08/20/17 03:30 04:35 04:35 WBC 8.5 RBC 3.23 L Hgb 9.3 L Hct 28.9 L MCV 89.4 MCH 28.9 MCHC 32.3 L RDW 17.8 H Plt Count 140 MPV 11.3 Neut % (Auto) 91.8 H Lymph % (Auto) 4.2 L [place] % (Auto) 3.8 Eos % (Auto) 0.0 Baso % (Auto) 0.2 Neut # (Auto) 7.8 H Lymph # (Auto) 0.4 L [place] # (Auto) 0.3 Eos # (Auto) 0.0 Baso # (Auto) 0.0 Neutrophils % (Manual) 93 H Band Neutrophils % 1 Lymphocytes % (Manual) 2 L Monocytes % (Manual) 4 Eosinophils % (Manual) Platelet Estimate Normal Large Platelets Present Polychromasia Hypochromasia (manual) Slight Poikilocytosis (manual Anisocytosis (manual) Microcytosis (manual) pO2 VBG pH VBG pCO2 VBG HCO3 VBG Total CO2 VBG O2 Sat (Calc) VBG Base Excess VBG Potassium Glucose Lactate FiO2 Sodium 136 Potassium 4.1 Chloride 103 Carbon Dioxide 21 L Anion Gap 16 BUN 34 H Creatinine 1.4 H Est GFR ( Amer) 45 Est GFR (Non-Af Amer) 37 POC Glucose (mg/dL) Random Glucose 316 H Calcium 4.9 L* Total Bilirubin 0.7 AST 20 ALT 33 Alkaline Phosphatase 89 Troponin I 0.0870 NT-Pro-B Natriuret Pep 27101 H Total Protein 6.2 L Albumin 3.2 L Globulin 3.0 Albumin/Globulin Ratio 1.1 Venous Blood Potassium Urine Color Urine Clarity Urine pH Ur Specific [place] Urine Protein Urine Glucose (UA) Urine Ketones Urine Blood Urine Nitrate Urine Bilirubin Urine Urobilinogen Ur Leukocyte Esterase Urine RBC (Auto) Urine Microscopic WBC Ur Squamous Epith Cells Amorphous Sediment Urine Bacteria Hyaline Casts Granular Casts (Auto) 08/20/17 05:52 WBC RBC Hgb Hct MCV MCH MCHC RDW Plt Count MPV Neut % (Auto) Lymph % (Auto) [place] % (Auto) Eos % (Auto) Baso % (Auto) Neut # (Auto) Lymph # (Auto) [place] # (Auto) Eos # (Auto) Baso # (Auto) Neutrophils % (Manual) Band Neutrophils % Lymphocytes % (Manual) Monocytes % (Manual) Eosinophils % (Manual) Platelet Estimate Large Platelets Polychromasia Hypochromasia (manual) Poikilocytosis (manual Anisocytosis (manual) Microcytosis (manual) pO2 VBG pH VBG pCO2 VBG HCO3 VBG Total CO2 VBG O2 Sat (Calc) VBG Base Excess VBG Potassium Glucose Lactate FiO2 Sodium Potassium Chloride Carbon Dioxide Anion Gap BUN Creatinine Est GFR ( Amer) Est GFR (Non-Af Amer) POC Glucose (mg/dL) 331 H Random Glucose Calcium Total Bilirubin AST ALT Alkaline Phosphatase Troponin I NT-Pro-B Natriuret Pep Total Protein Albumin Globulin Albumin/Globulin Ratio Venous Blood Potassium Urine Color Urine Clarity Urine pH Ur Specific [place] Urine Protein Urine Glucose (UA) Urine Ketones Urine Blood Urine Nitrate Urine Bilirubin Urine Urobilinogen Ur Leukocyte Esterase Urine RBC (Auto) Urine Microscopic WBC Ur Squamous Epith Cells Amorphous Sediment Urine Bacteria Hyaline Casts Granular Casts (Auto) Assessment & Plan (1) Syncope and collapse Assessment and Plan: Most likely secondary to pt's multiple medical condition will follow Status: Acute (2) Abnormal involuntary movements Status: Acute (3) Acute bronchitis with chronic obstructive pulmonary disease (COPD) Status: Acute Priority: High Onset Date: 02/05/14
[2017-08-20] MEDS: Insulin Lispro (humaLOG) 100 Units/ml Inj SC SCH ×4 (08:39→21:36)
[2017-08-20] MEDS: Pantoprazole 40 mg EC Tab PO SCH (08:42)
[2017-08-20] MEDS: Enoxaparin 40 mg Syringe SC SCH (08:42)
--- NOTE | 2017-08-20 08:52 | CT ---
PROCEDURE: CT HEAD WITHOUT CONTRAST. HISTORY: syncope COMPARISON: Noncontrast head CT 09/30/2016. TECHNIQUE: Axial computed tomography images were obtained through the head/brain without intravenous contrast. Radiation dose: Total exam DLP = 744.01 mGy-cm. This CT exam was performed using one or more of the following dose reduction techniques: Automated exposure control, adjustment of the mA and/or kV according to patient size, and/or use of iterative reconstruction technique. FINDINGS: HEMORRHAGE: No intracranial hemorrhage. BRAIN: Examination appears stable in the interval with minimal chronic microangiopathy reiterated. There is no mass effect. Corticomedullary differentiation remains good diffusely and there is no suspicious extra-axial fluid collection identified. Midline brain anatomy remains unremarkable as well as the posterior fossa contents. VENTRICLES: Unremarkable. No hydrocephalus. CALVARIUM: No fracture or destructive bony lesion evident. Bilateral likely sebaceous cysts are again identified at the bilateral scalp vertex predominantly parietal distribution. PARANASAL SINUSES: Unremarkable as visualized. No significant inflammatory changes. MASTOID AIR CELLS: Unremarkable as visualized. No inflammatory changes. OTHER FINDINGS: None. IMPRESSION: No acute intracranial findings are appreciated in the interval compared prior head CT 09/30/2016. Minimal chronic microangiopathy is reiterated.
--- NOTE | 2017-08-20 09:11 | CP.PCM.PN ---
Subjective - Date & Time of Evaluation Date of Evaluation: 08/20/17 Time of Evaluation: 09:09 - Subjective Subjective: Pt was found to have low Ca+ on blood work. S/p calcium gluconate IV. Pending repeat Ca+ No acute overnight events. Pt seen and examined in ICU today. States that she feels better then yesterday. Pt hungry and would like to eat. Denies headache, blurry vision, n/v/d/c. Objective - Vital Signs/Intake and Output Vital Signs (last 24 hours): Temp Pulse Resp BP Pulse Ox 98.9 F 63 14 113/58 L 99 08/20/17 08:00 08/20/17 08:00 08/20/17 08:00 08/20/17 08:00 08/20/17 08:00 Intake and Output: 08/20/17 08/20/17 06:59 18:59 Intake Total 220 120 Output Total 350 Balance -130 120 - Medications Medications: Current Medications Albuterol/Ipratropium (Duoneb 3 Mg/0.5 Mg (3 Ml) Ud) 3 ml INH RQ4 PRN PRN Reason: Shortness of Breath Aripiprazole (Abilify) 10 mg PO HS [facility] Aspirin (Ecotrin) 81 mg PO DAILY [facility] Last Admin: 08/20/17 08:38 Dose: 81 mg Buspirone HCl (Buspar) 10 mg PO Q12H [facility] Last Admin: 08/20/17 01:42 Dose: 10 mg Clonazepam (Klonopin) 0.5 mg PO DAILY PRN PRN Reason: Anxiety Dexamethasone (Decadron) 20 mg PO MON [facility] Dextrose (Dextrose 50% Inj) 0 ml IV STAT PRN; Protocol PRN Reason: Hypoglycemia Protocol Dextrose (Glutose 15) 0 gm PO ONCE PRN; Protocol PRN Reason: Hypoglycemia Protocol Enalapril Maleate (Vasotec) 2.5 mg PO DAILY [facility] Enoxaparin Sodium (Lovenox) 40 mg SC DAILY [facility] PRN Reason: Protocol Last Admin: 08/20/17 08:42 Dose: 40 mg Furosemide (Lasix) 20 mg PO Q48H [facility] Last Admin: 08/20/17 01:42 Dose: 20 mg Glucagon (Glucagen Diagnostic Kit) 0 mg IM STAT PRN; Protocol PRN Reason: Hypoglycemia Protocol Home Med (Riociguat [Adempas]) 2 mg PO TID [facility] Hydrocortisone (Cortef) 10 mg PO HS [facility] Last Admin: 08/20/17 01:42 Dose: 10 mg Insulin Detemir (Levemir) 14 units SC QAM [facility] Last Admin: 08/20/17 08:41 Dose: 14 units Insulin Detemir (Levemir) 10 units SC HS [facility] Last Admin: 08/20/17 01:42 Dose: 10 units Insulin Human Lispro (Humalog) 5 units SC TID [facility] Last Admin: 08/20/17 08:39 Dose: 5 units Levothyroxine Sodium (Synthroid) 75 mcg PO DAILY@0630 [facility] Last Admin: 08/20/17 06:53 Dose: 75 mcg Metformin HCl (Glucophage) 500 mg PO BID [facility] Last Admin: 08/20/17 08:38 Dose: 500 mg Pantoprazole Sodium (Protonix Ec Tab) 40 mg PO DAILY [facility] Last Admin: 08/20/17 08:42 Dose: 40 mg - Labs Labs: 08/20/17 04:35 08/20/17 04:35 - Constitutional Appears: No Acute Distress, Other (cpap machine on ) - Head Exam Head Exam: NORMOCEPHALIC (small contusion on lip and chin; skin intact ) - Eye Exam Eye Exam: EOMI - ENT Exam ENT Exam: Mucous Membranes Moist - Respiratory Exam Respiratory Exam: NORMAL BREATHING PATTERN (course breath sounds ). absent: Rhonchi - Cardiovascular Exam Cardiovascular Exam: REGULAR RHYTHM, +S1, +S2 - GI/Abdominal Exam GI & Abdominal Exam: Soft, Normal Bowel Sounds. absent: Tenderness - Exam Exam: NORMAL INSPECTION (saeed in draining clear yellow urine ) - Extremities Exam Extremities Exam: Full ROM, Normal Inspection. absent: Calf Tenderness Additional comments: small varicose veins in legs b/l - Back Exam Back Exam: NORMAL INSPECTION - Neurological Exam Neurological Exam: Alert, Awake, Oriented x3 - Psychiatric Exam Psychiatric exam: Normal Affect, Normal Mood - Skin Skin Exam: Dry, Intact, Normal Color, Warm Assessment and Plan - Assessment and Plan (Free Text) Assessment: Assessment: 71 YO female with multiple co-morbidities (PMHx including Multiple Myeloma, hx of multiple fractures (recent left hip fracture), IDDM type 2, HTN, Pulm HTN, COPD on home oxygen and CPAP, hx of PE s/p IVC filter in 2014) is admitted for unwitnessed syncope and SIRS. Unwitnessed syncopal episode -acute on chronic (hx multiple episode of dizziness, multiple falls); r/o seizure -Head CT w/o contrast: No acute ICH abnormality, small lucencies of skull concerning for metastatic disease or multiple myeloma-unchanged from 09/2016 -EKG: sinus tachycardia at 104 bpm with T wave inversions (unchanged from past EKG's) -troponin 0.1520, 2nd trop neg -prior catheterizations showed normal coronaries with Pulm HTN (most recent 10/20) -Echo 05/11/17: normal LVEF 65-70% with mild paradoxical septal motion -Neurology consulted, follow up recs -f/u MRI of brain, prolactin, EEG Chest pain -chest pain likely 2/2 to acute trauma, r/o ACS -EKG: sinus tachycardia at 104 bpm with T wave inversions (unchanged from past EKG's) -prior catheterizations showed normal coronaries with Pulm HTN (most recent 10/20) -Echo 05/11/17: normal LVEF 65-70% with mild paradoxical septal motion -troponin 0.1520, 2nd trop neg -pro BNP 13396 -Cardiology consulted; follow up recs Hypocalcemia -acute, recurrent -likely 2/2 to multiple myleoma -serum calcium 5.0 on admission; 4.9 repeat 4.7 today; albumin 3.2 -corrected calcium is 4.9 -Calcium gluconate 4.6 meq IV once given in ED -start second IV calcium gluconate today -Endocrinology consulted -f/u Ca+ SIRS -resolved, afebrile today, no leukocytosis or tachycardia -CXR at baseline, UA negative -c/p Zosyn 4.5gm IV once given in ED -f/u blood and urine culture, stool culture, c-diff toxin, pro-calcitonin COPD -chronic, stable -Methylprednisolone 125mg IVP once given in ED -VBG: pH 7.35, pO2 31, pCO2 41, HCO3 21.5, Lactate 1.8 -continue home medications: Duoneb INH solution Q4 PRN SOB -continue home regimen: 2L supplemental O2 via nasal cannula during the day, CPAP at night -Pulmonary consulted; follow up recs Pulmonary HTN -chronic, stable -c/w home medications: Furosemide 20 mg PO Q48H -pt not on Riociguat 2mg PO TID, never picked up rx per pharmacy -Meds verified with pharmacy, [facility] today -Pulmonary consulted;follow up recs HTN -chronic, controlled -held home medication due to hypotension on admission: Enalapril 2.5mg PO QD -c/w with Aspirin 81 mg PO QD -monitor BP IDDM type 2 -chronic, controlled -continue home medications: Insulin Levemir 14 units SC QAM, Insulin Levemir 10 units SC QPM, Insulin Lispro 5 units SC TID with meals, Metformin 500mg PO BID, Atorvastatin 20mg PO QHS -hypoglycemia protocol in place Hypothyroidism -chronic, controlled -continue home medications: Levothyroxine 75 mcg PO QD Restless leg syndrome -chronic -continue home medications: Clonazepam 0.5 mg PO QD Depression -chronic, controlled -continue home medications: , Buspirone 10mg PO Q12, Aripiprazole 10mg PO QHS Multiple Myeloma -chronic -continue home medications: Dexamethasone 20mg once a week on mondays, Hydrocortisone 10mg PO QHS -patient follow regularly with heme/onc Dr. Vilchis -will consult Hem/Onc while inpatient; follow up recs Anemia -acute on chronic, likely secondary to multiple myeloma -Hb/Hct 9.3/28.9 -cont to monitor DVT prophylaxis -Lovenox 40 mg SC QD
[2017-08-20 11:14] LABS: CALCIUM 4.7 mg/dL (8.4-10.2)
[2017-08-20] MEDS ORDERED: Calcium Gluconate 4.65 mEq/10 ml Inj IV ONE ×2 (11:40→19:31)
--- NOTE | 2017-08-20 12:46 | CP.CCUPN ---
CCU Subjective - Physician Review Subjective (Free Text): Awake and alert, no seizure activity reported, tremors of the extremities noted. No other distress. No malignant arrhythmias observed or recorded. One dose of IV calcium ordered in ER yesterday,2nd dose just ordered now. Other vitals and I/O's reviewed. ROS: no other pertinent negs or positives on 10+ system review. PMSFH: All other Nursing and physician documentation reviewed to date; no new pertinent info noted relevant to current medical problems. EXAM- HEENT: no icterus, no gaze preference, pupils equal and reactive NECK: No JVD, supple, carotids equal upstroke bilat/no bruits CHEST: clear with diminished BS bilat, no wheezes audible. HEART: regular, distant, S1S2, no rubs or murmurs ABD: soft, no distention, no tympany, no palp tenderness, BS hypoactive EXT: Trace bilat pedal edema. No peripheral/ digital cyanosis, no calf tenderness or palpable cords, distal pulses intact and symmetrical NEURO: no focal motor deficits, SKIN: no rashes, warm and dry. LABS: WBC= 8.5 HGB= 9.3 PLTs= 140K Rj=433 K= 4.1 OY=880 HCO3= 21 BUN/Cr= 34/1.4 BS= 316 CA= 4.9 Alb= 3.2 IMPRESSION / MAJOR PROBLEMS NOW: 1. Syncopal episode, r/o Occult Seizure disorder 2. Moderate Hypocalcemia- no h/o of chronic low calcium states. 3. Azotemia, no h/o CKD 4. h/o Multiple Myeloma 5. h/o Loop Diuretic use PLAN: 1. Corrected Ca is approx. 5.5. More IV calcium has already been ordered. Would check ionized Calcium levels before ordering more IV Calcium. PTH level pending. 2. Would start cautious PO calcium and VitD therapy. Serial monitor levels; especially with h/o of MM. Stop Lasix if possible., or use alternative diuretic. 3. Supplement Mag levels. 4. Does not need ICU monitoring nor ICU support, could transfer to Tele bed for further rhythm monitoring and mgmt.
--- NOTE | 2017-08-20 13:07 | CP.PCM.CON ---
History of Present Illness - History of Present Illness History of Present Illness: PT PRESENTED WITH SYNCOPAL EPISODE AND LOSS OF BLADDER CONTROL. PT CURRENTLY C /O SOB. NO CP, NO PALP. LABS SHOW PRERENAL STATE. TROP MINIMALLY ELEVATED. EKG PENDING. TELE SHOWS AFIB AT 100 BPM. PT IS HYPOCALCEMIC. Past Patient History - Infectious Disease Hx of Infectious Diseases: None - Tetanus Immunizations Tetanus Immunization: Unknown - Past Medical History & Family History Past Medical History?: Yes - Past Social History Smoking Status: Never Smoked Chewing Tobacco Use: No Cigar Use: No Alcohol: None Drugs: Denies Home Situation {Lives}: With Family - CARDIAC Hx Congestive Heart Failure: Yes Hx Hypercholesterolemia: Yes Hx Hypertension: Yes - PULMONARY Hx Asthma: Yes Hx Chronic Obstructive Pulmonary Disease (COPD): Yes Hx Emphysema: Yes Hx Pneumonia: Yes Hx Pulmonary Embolism: Yes Hx Sleep Apnea: Yes - NEUROLOGICAL Hx Migraine: Yes Hx Parkinson's Disease: Yes - HEENT Hx Deafness: Yes - RENAL Hx Chronic Kidney Disease: No - ENDOCRINE/METABOLIC Hx Hypothyroidism: Yes - HEMATOLOGICAL/ONCOLOGICAL Hx Anemia: Yes - INTEGUMENTARY Hx Dermatological Problems: No - MUSCULOSKELETAL/RHEUMATOLOGICAL Hx Arthritis: Yes Hx Fractures: Yes Hx Rheumatoid Arthritis: Yes - GASTROINTESTINAL Hx Gastrointestinal Disorders: No - GENITOURINARY/GYNECOLOGICAL Hx Genitourinary Disorders: Yes - PSYCHIATRIC Hx Anxiety: Yes Hx Depression: Yes - SURGICAL HISTORY Hx Cholecystectomy: Yes Hx Tonsillectomy: Yes - ANESTHESIA Hx Anesthesia: Yes Hx Anesthesia Reactions: Yes (Resp. Distress) Meds Allergies/Adverse Reactions: Allergies Allergy/AdvReac Type Severity Reaction Status Date / Time codeine AdvReac syncope, Verified 08/19/17 17:50 diaphoresis - Medications Medications: Current Medications Albuterol/Ipratropium (Duoneb 3 Mg/0.5 Mg (3 Ml) Ud) 3 ml INH RQ4 PRN PRN Reason: Shortness of Breath Aripiprazole (Abilify) 10 mg PO HS [facility] Aspirin (Ecotrin) 81 mg PO DAILY [facility] Last Admin: 08/20/17 08:38 Dose: 81 mg Buspirone HCl (Buspar) 10 mg PO Q12H [facility] Last Admin: 08/20/17 11:32 Dose: 10 mg Clonazepam (Klonopin) 0.5 mg PO DAILY PRN PRN Reason: Anxiety Last Admin: 08/20/17 11:30 Dose: 0.5 mg Dexamethasone (Decadron) 20 mg PO [facility] Dextrose (Dextrose 50% Inj) 0 ml IV STAT PRN; Protocol PRN Reason: Hypoglycemia Protocol Dextrose (Glutose 15) 0 gm PO ONCE PRN; Protocol PRN Reason: Hypoglycemia Protocol Enalapril Maleate (Vasotec) 2.5 mg PO DAILY [facility] Enoxaparin Sodium (Lovenox) 40 mg SC DAILY [facility] PRN Reason: Protocol Last Admin: 08/20/17 08:42 Dose: 40 mg Furosemide (Lasix) 20 mg PO Q48H [facility] Last Admin: 08/20/17 01:42 Dose: 20 mg Glucagon (Glucagen Diagnostic Kit) 0 mg IM STAT PRN; Protocol PRN Reason: Hypoglycemia Protocol Home Med (Riociguat [Adempas]) 2 mg PO TID [facility] Last Admin: 08/20/17 10:18 Dose: 2 mg Hydrocortisone (Cortef) 10 mg PO HS [facility] Last Admin: 08/20/17 01:42 Dose: 10 mg Insulin Detemir (Levemir) 14 units SC QAM [facility] Last Admin: 08/20/17 08:41 Dose: 14 units Insulin Detemir (Levemir) 10 units SC [facility] Last Admin: 08/20/17 01:42 Dose: 10 units Insulin Human Lispro (Humalog) 5 units SC TID [facility] Last Admin: 08/20/17 12:39 Dose: 5 units Levothyroxine Sodium (Synthroid) 75 mcg PO DAILY@0630 [facility] Last Admin: 08/20/17 06:53 Dose: 75 mcg Metformin HCl (Glucophage) 500 mg PO BID [facility] Last Admin: 08/20/17 08:38 Dose: 500 mg Pantoprazole Sodium (Protonix Ec Tab) 40 mg PO DAILY [facility] Last Admin: 08/20/17 08:42 Dose: 40 mg Results - Vital Signs Recent Vital Signs: Last Vital Signs Temp 98.9 F 08/20/17 08:00 Pulse 89 08/20/17 10:00 Resp 26 H 08/20/17 10:00 BP 129/51 L 08/20/17 10:00 Pulse Ox 99 08/20/17 10:00 - Labs Result Diagrams: 08/20/17 04:35 08/20/17 04:35 Labs: Laboratory Results - last 24 hr 08/19/17 08/19/1708/19/18 19:00 19:00 19:22 WBC 9.1 RBC 3.25 L Hgb 9.5 L D Hct 29.2 L MCV 89.9 D MCH 29.2 MCHC 32.4 L RDW 17.4 H Plt Count 167 D MPV 11.2 Neut % (Auto) 81.6 H Lymph % (Auto) 5.2 L Swift % (Auto) 12.5 H Eos % (Auto) 0.5 Baso % (Auto) 0.2 Neut # (Auto) 7.5 H Lymph # (Auto) 0.5 L Swift # (Auto) 1.1 H Eos # (Auto) 0.0 Baso # (Auto) 0.0 Neutrophils % (Manual) 78 H Band Neutrophils % 2 Lymphocytes % (Manual) 8 L Monocytes % (Manual) 11 H Eosinophils % (Manual) 1 Platelet Estimate Normal Large Platelets Present Polychromasia Slight Hypochromasia (manual) Slight Poikilocytosis (manual Slight Anisocytosis (manual) Moderate Microcytosis (manual) Slight pO2 VBG pH VBG pCO2 VBG HCO3 VBG Total CO2 VBG O2 Sat (Calc) VBG Base Excess VBG Potassium Glucose Lactate FiO2 Sodium 136 Potassium 4.1 Chloride 102 Carbon Dioxide 22 Anion Gap 16 BUN 28 H Creatinine 1.2 Est GFR ( Amer) 54 Est GFR (Non-Af Amer) 44 POC Glucose (mg/dL) 186 H Random Glucose 200 H Calcium 5.0 L* D Total Bilirubin 0.8 AST 25 ALT 31 Alkaline Phosphatase 77 Troponin I 0.1520 H* NT-Pro-B Natriuret Pep Total Protein 6.4 Albumin 3.4 L Globulin 3.1 Albumin/Globulin Ratio 1.1 Vitamin B12 TSH 3rd Generation Venous Blood Potassium Urine Color Urine Clarity Urine pH Ur Specific [place] Urine Protein Urine Glucose (UA) Urine Ketones Urine Blood Urine Nitrate Urine Bilirubin Urine Urobilinogen Ur Leukocyte Esterase Urine RBC (Auto) Urine Microscopic WBC Ur Squamous Epith Cells Amorphous Sediment Urine Bacteria Hyaline Casts Granular Casts (Auto) 08/19/17 08/19/17 08/20/17 19:30 23:20 01:20 WBC RBC Hgb Hct MCV MCH MCHC RDW Plt Count MPV Neut % (Auto) Lymph % (Auto) Swift % (Auto) Eos % (Auto) Baso % (Auto) Neut # (Auto) Lymph # (Auto) Swift # (Auto) Eos # (Auto) Baso # (Auto) Neutrophils % (Manual) Band Neutrophils % Lymphocytes % (Manual) Monocytes % (Manual) Eosinophils % (Manual) Platelet Estimate Large Platelets Polychromasia Hypochromasia (manual) Poikilocytosis (manual Anisocytosis (manual) Microcytosis (manual) pO2 31 VBG pH 7.35 VBG pCO2 41 VBG HCO3 21.5 VBG Total CO2 23.9 VBG O2 Sat (Calc) 59.0 VBG Base Excess -2.9 L VBG Potassium 3.9 Glucose 225 H Lactate 1.8 FiO2 21.0 Sodium 134.0 Potassium Chloride 104.0 Carbon Dioxide Anion Gap BUN Creatinine Est GFR ( Amer) Est GFR (Non-Af Amer) POC Glucose (mg/dL) 273 H Random Glucose Calcium Total Bilirubin AST ALT Alkaline Phosphatase Troponin I NT-Pro-B Natriuret Pep Total Protein Albumin Globulin Albumin/Globulin Ratio Vitamin B12 TSH 3rd Generation Venous Blood Potassium 3.9 Urine Color Yellow Urine Clarity Cloudy Urine pH 5.0 Ur Specific [place] 1.017 Urine Protein 100 Urine Glucose (UA) Neg Urine Ketones Negative Urine Blood Negative Urine Nitrate Negative Urine Bilirubin Negative Urine Urobilinogen 0.2-1.0 Ur Leukocyte Esterase Neg Urine RBC (Auto) 1 Urine Microscopic WBC 3 Ur Squamous Epith Cells 1 Amorphous Sediment Occ H Urine Bacteria Occ H Hyaline Casts 0-2 Granular Casts (Auto) 66 08/20/17 08/20/17 08/20/17 03:30 04:35 04:35 WBC 8.5 RBC 3.23 L Hgb 9.3 L Hct 28.9 L MCV 89.4 MCH 28.9 MCHC 32.3 L RDW 17.8 H Plt Count 140 MPV 11.3 Neut % (Auto) 91.8 H Lymph % (Auto) 4.2 L Swift % (Auto) 3.8 Eos % (Auto) 0.0 Baso % (Auto) 0.2 Neut # (Auto) 7.8 H Lymph # (Auto) 0.4 L Swift # (Auto) 0.3 Eos # (Auto) 0.0 Baso # (Auto) 0.0 Neutrophils % (Manual) 93 H Band Neutrophils % 1 Lymphocytes % (Manual) 2 L Monocytes % (Manual) 4 Eosinophils % (Manual) Platelet Estimate Normal Large Platelets Present Polychromasia Hypochromasia (manual) Slight Poikilocytosis (manual Anisocytosis (manual) Microcytosis (manual) pO2 VBG pH VBG pCO2 VBG HCO3 VBG Total CO2 VBG O2 Sat (Calc) VBG Base Excess VBG Potassium Glucose Lactate FiO2 Sodium 136 Potassium 4.1 Chloride 103 Carbon Dioxide 21 L Anion Gap 16 BUN 34 H Creatinine 1.4 H Est GFR ( Amer) 45 Est GFR (Non-Af Amer) 37 POC Glucose (mg/dL) Random Glucose 316 H Calcium 4.9 L* Total Bilirubin 0.7 AST 20 ALT 33 Alkaline Phosphatase 89 Troponin I 0.0870 NT-Pro-B Natriuret Pep 57232 H Total Protein 6.2 L Albumin 3.2 L Globulin 3.0 Albumin/Globulin Ratio 1.1 Vitamin B12 TSH 3rd Generation Venous Blood Potassium Urine Color Urine Clarity Urine pH Ur Specific [place] Urine Protein Urine Glucose (UA) Urine Ketones Urine Blood Urine Nitrate Urine Bilirubin Urine Urobilinogen Ur Leukocyte Esterase Urine RBC (Auto) Urine Microscopic WBC Ur Squamous Epith Cells Amorphous Sediment Urine Bacteria Hyaline Casts Granular Casts (Auto) 08/20/17 08/20/17 08/20/17 05:52 10:41 10:57 WBC RBC Hgb Hct MCV MCH MCHC RDW Plt Count MPV Neut % (Auto) Lymph % (Auto) Swift % (Auto) Eos % (Auto) Baso % (Auto) Neut # (Auto) Lymph # (Auto) Swift # (Auto) Eos # (Auto) Baso # (Auto) Neutrophils % (Manual) Band Neutrophils % Lymphocytes % (Manual) Monocytes % (Manual) Eosinophils % (Manual) Platelet Estimate Large Platelets Polychromasia Hypochromasia (manual) Poikilocytosis (manual Anisocytosis (manual) Microcytosis (manual) pO2 VBG pH VBG pCO2 VBG HCO3 VBG Total CO2 VBG O2 Sat (Calc) VBG Base Excess VBG Potassium Glucose Lactate FiO2 Sodium Potassium Chloride Carbon Dioxide Anion Gap BUN Creatinine Est GFR ( Amer) Est GFR (Non-Af Amer) POC Glucose (mg/dL) 331 H Random Glucose Calcium 4.7 L* Total Bilirubin AST ALT Alkaline Phosphatase Troponin I 0.0580 NT-Pro-B Natriuret Pep Total Protein Albumin Globulin Albumin/Globulin Ratio Vitamin B12 594 TSH 3rd Generation 0.39 L Venous Blood Potassium Urine Color Urine Clarity Urine pH Ur Specific [place] Urine Protein Urine Glucose (UA) Urine Ketones Urine Blood Urine Nitrate Urine Bilirubin Urine Urobilinogen Ur Leukocyte Esterase Urine RBC (Auto) Urine Microscopic WBC Ur Squamous Epith Cells Amorphous Sediment Urine Bacteria Hyaline Casts Granular Casts (Auto) 08/20/17 11:11 WBC RBC Hgb Hct MCV MCH MCHC RDW Plt Count MPV Neut % (Auto) Lymph % (Auto) Swift % (Auto) Eos % (Auto) Baso % (Auto) Neut # (Auto) Lymph # (Auto) Swift # (Auto) Eos # (Auto) Baso # (Auto) Neutrophils % (Manual) Band Neutrophils % Lymphocytes % (Manual) Monocytes % (Manual) Eosinophils % (Manual) Platelet Estimate Large Platelets Polychromasia Hypochromasia (manual) Poikilocytosis (manual Anisocytosis (manual) Microcytosis (manual) pO2 VBG pH VBG pCO2 VBG HCO3 VBG Total CO2 VBG O2 Sat (Calc) VBG Base Excess VBG Potassium Glucose Lactate FiO2 Sodium Potassium Chloride Carbon Dioxide Anion Gap BUN Creatinine Est GFR ( Amer) Est GFR (Non-Af Amer) POC Glucose (mg/dL) 395 H Random Glucose Calcium Total Bilirubin AST ALT Alkaline Phosphatase Troponin I NT-Pro-B Natriuret Pep Total Protein Albumin Globulin Albumin/Globulin Ratio Vitamin B12 TSH 3rd Generation Venous Blood Potassium Urine Color Urine Clarity Urine pH Ur Specific [place] Urine Protein Urine Glucose (UA) Urine Ketones Urine Blood Urine Nitrate Urine Bilirubin Urine Urobilinogen Ur Leukocyte Esterase Urine RBC (Auto) Urine Microscopic WBC Ur Squamous Epith Cells Amorphous Sediment Urine Bacteria Hyaline Casts Granular Casts (Auto) Assessment & Plan (1) Hypomagnesemia Status: Acute (2) T wave inversion in EKG Status: Acute (3) Hypocalcemia syndrome Status: Acute Priority: Medium (4) Abnormal QT interval present on electrocardiogram Status: Acute (5) Hx of ventricular tachycardia Status: Acute (6) Cor pulmonale (chronic) Status: Acute (7) Syncope and collapse Status: Acute Priority: High (8) Abnormal involuntary movements Status: Acute (9) Multiple myeloma Status: Chronic (10) Pulmonary hypertension Status: Chronic - Assessment and Plan (Free Text) Plan: pt with hx of torsades. will give mag 2gm, cont ca replacement. monitor in icu. will add low dose bb for hr control. pt does not look volume overloaded. ekg shows diffuse qt prolongation and t wave inversions. this is likely due to electrolyte abn. old cath images reviewed. there was no cad on cath in 2015.
--- NOTE | 2017-08-20 13:41 | CARD ---
APPROVED REPORT EKG Measurement Heart [id number] <Conclusion> Normal sinus rhythm Possible Left atrial enlargement T wave abnormality, consider inferior ischemia T wave abnormality, consider anterolateral ischemia Prolonged QT Abnormal ECG
[2017-08-20] MEDS: Albuterol-Ipratrop 3 mg / 0.5 (3 ml) UD INH SCH ×2 (13:42→19:00)
[2017-08-20] MEDS ORDERED: Magnesium Sulfate 2 gm/50 ml 2 GM/50 ML BAG IVPB ONE (13:44)
--- NOTE | 2017-08-20 15:08 | CP.PCM.CON ---
History of Present Illness - History of Present Illness History of Present Illness: Mrs. Perkins is a 71-year-old woman with a past medical history of Multiple Myeloma, hx of multiple fractures (recent left hip fracture), IDDM type 2, HTN, Pulm HTN, COPD on home oxygen, and was going to the kitchen when she lost consciousness. She woke up and noticed that she had bitten her lip and had urinary and bowel incontinence. She has generalized shaking that she said started about two years ago after being started on some psychiatric medications. CT head did not show any acute findings, EEG is pending. Review of Systems - Review of Systems All systems: reviewed and no additional remarkable complaints except Past Patient History - Infectious Disease Hx of Infectious Diseases: None - Tetanus Immunizations Tetanus Immunization: Unknown - Past Medical History & Family History Past Medical History?: Yes - Past Social History Smoking Status: Never Smoked Chewing Tobacco Use: No Cigar Use: No Alcohol: None Drugs: Denies Home Situation {Lives}: With Family - CARDIAC Hx Congestive Heart Failure: Yes Hx Hypercholesterolemia: Yes Hx Hypertension: Yes - PULMONARY Hx Asthma: Yes Hx Chronic Obstructive Pulmonary Disease (COPD): Yes Hx Emphysema: Yes Hx Pneumonia: Yes Hx Pulmonary Embolism: Yes Hx Sleep Apnea: Yes - NEUROLOGICAL Hx Migraine: Yes Hx Parkinson's Disease: Yes - HEENT Hx Deafness: Yes - RENAL Hx Chronic Kidney Disease: No - ENDOCRINE/METABOLIC Hx Hypothyroidism: Yes - HEMATOLOGICAL/ONCOLOGICAL Hx Anemia: Yes - INTEGUMENTARY Hx Dermatological Problems: No - MUSCULOSKELETAL/RHEUMATOLOGICAL Hx Arthritis: Yes Hx Fractures: Yes Hx Rheumatoid Arthritis: Yes - GASTROINTESTINAL Hx Gastrointestinal Disorders: No - GENITOURINARY/GYNECOLOGICAL Hx Genitourinary Disorders: Yes - PSYCHIATRIC Hx Anxiety: Yes Hx Depression: Yes - SURGICAL HISTORY Hx Cholecystectomy: Yes Hx Tonsillectomy: Yes - ANESTHESIA Hx Anesthesia: Yes Hx Anesthesia Reactions: Yes (Resp. Distress) Meds Allergies/Adverse Reactions: Allergies Allergy/AdvReac Type Severity Reaction Status Date / Time codeine AdvReac syncope, Verified 08/19/17 17:50 diaphoresis - Medications Medications: Current Medications Albuterol/Ipratropium (Duoneb 3 Mg/0.5 Mg (3 Ml) Ud) 3 ml INH RQ4 PRN PRN Reason: Shortness of Breath Albuterol/Ipratropium (Duoneb 3 Mg/0.5 Mg (3 Ml) Ud) 3 ml INH RQ6 [facility] Last Admin: 08/20/17 13:42 Dose: 3 ml Aripiprazole (Abilify) 10 mg PO HS [facility] Aspirin (Ecotrin) 81 mg PO DAILY [facility] Last Admin: 08/20/17 08:38 Dose: 81 mg Buspirone HCl (Buspar) 10 mg PO Q12H [facility] Last Admin: 08/20/17 11:32 Dose: 10 mg Clonazepam (Klonopin) 0.5 mg PO DAILY PRN PRN Reason: Anxiety Last Admin: 08/20/17 11:30 Dose: 0.5 mg Dexamethasone (Decadron) 20 mg PO MON [facility] Dextrose (Dextrose 50% Inj) 0 ml IV STAT PRN; Protocol PRN Reason: Hypoglycemia Protocol Dextrose (Glutose 15) 0 gm PO ONCE PRN; Protocol PRN Reason: Hypoglycemia Protocol Enalapril Maleate (Vasotec) 2.5 mg PO DAILY [facility] Enoxaparin Sodium (Lovenox) 40 mg SC DAILY [facility] PRN Reason: Protocol Last Admin: 08/20/17 08:42 Dose: 40 mg Furosemide (Lasix) 20 mg PO Q48H [facility] Last Admin: 08/20/17 01:42 Dose: 20 mg Glucagon (Glucagen Diagnostic Kit) 0 mg IM STAT PRN; Protocol PRN Reason: Hypoglycemia Protocol Home Med (Riociguat [Adempas]) 2 mg PO TID [facility] Last Admin: 08/20/17 14:31 Dose: 2 mg Hydrocortisone (Cortef) 10 mg PO HS [facility] Last Admin: 08/20/17 01:42 Dose: 10 mg Insulin Detemir (Levemir) 14 units SC QAM [facility] Last Admin: 08/20/17 08:41 Dose: 14 units Insulin Detemir (Levemir) 10 units SC HS [facility] Last Admin: 08/20/17 01:42 Dose: 10 units Insulin Human Lispro (Humalog) 5 units SC TID [facility] Last Admin: 08/20/17 12:39 Dose: 5 units Levothyroxine Sodium (Synthroid) 75 mcg PO DAILY@0630 [facility] Last Admin: 08/20/17 06:53 Dose: 75 mcg Metformin HCl (Glucophage) 500 mg PO BID [facility] Last Admin: 08/20/17 08:38 Dose: 500 mg Pantoprazole Sodium (Protonix Ec Tab) 40 mg PO DAILY [facility] Last Admin: 08/20/17 08:42 Dose: 40 mg Physical Exam - Neurological Exam Neurological exam: Abnormal Gait, Alert, CN II-XII Intact, Oriented x3, Reflexes Normal Additional comments: Parkinsonism with bilateral upper and lower extremity tremor, worse on the left arm. Otherwise, non-focal examination with normal FTN and coordination. Plantar responses are downgoing bilaterally. Results - Vital Signs Recent Vital Signs: Last Vital Signs Temp 98.9 F 08/20/17 08:00 Pulse 94 H 08/20/17 13:43 Resp 22 08/20/17 12:00 BP 124/74 08/20/17 12:00 Pulse Ox 97 08/20/17 12:00 - Labs Result Diagrams: 08/20/17 04:35 08/20/17 04:35 Labs: Laboratory Results - last 24 hr 08/19/17 08/19/17 08/19/17 19:00 19:00 19:22 WBC 9.1 RBC 3.25 L Hgb 9.5 L D Hct 29.2 L MCV 89.9 D MCH 29.2 MCHC 32.4 L RDW 17.4 H Plt Count 167 D MPV 11.2 Neut % (Auto) 81.6 H Lymph % (Auto) 5.2 L Dougherty % (Auto) 12.5 H Eos % (Auto) 0.5 Baso % (Auto) 0.2 Neut # (Auto) 7.5 H Lymph # (Auto) 0.5 L Dougherty # (Auto) 1.1 H Eos # (Auto) 0.0 Baso # (Auto) 0.0 Neutrophils % (Manual) 78 H Band Neutrophils % 2 Lymphocytes % (Manual) 8 L Monocytes % (Manual) 11 H Eosinophils % (Manual) 1 Platelet Estimate Normal Large Platelets Present Polychromasia Slight Hypochromasia (manual) Slight Poikilocytosis (manual Slight Anisocytosis (manual) Moderate Microcytosis (manual) Slight pO2 VBG pH VBG pCO2 VBG HCO3 VBG Total CO2 VBG O2 Sat (Calc) VBG Base Excess VBG Potassium Glucose Lactate FiO2 Sodium 136 Potassium 4.1 Chloride 102 Carbon Dioxide 22 Anion Gap 16 BUN 28 H Creatinine 1.2 Est GFR ( Amer) 54 Est GFR (Non-Af Amer) 44 POC Glucose (mg/dL) 186 H Random Glucose 200 H Calcium 5.0 L* D Total Bilirubin 0.8 AST 25 ALT 31 Alkaline Phosphatase 77 Troponin I 0.1520 H* NT-Pro-B Natriuret Pep Total Protein 6.4 Albumin 3.4 L Globulin 3.1 Albumin/Globulin Ratio 1.1 Vitamin B12 TSH 3rd Generation Venous Blood Potassium Urine Color Urine Clarity Urine pH Ur Specific Wise Urine Protein Urine Glucose (UA) Urine Ketones Urine Blood Urine Nitrate Urine Bilirubin Urine Urobilinogen Ur Leukocyte Esterase Urine RBC (Auto) Urine Microscopic WBC Ur Squamous Epith Cells Amorphous Sediment Urine Bacteria Hyaline Casts Granular Casts (Auto) 08/19/17 08/19/17 08/20/17 19:30 23:20 01:20 WBC RBC Hgb Hct MCV MCH MCHC RDW Plt Count MPV Neut % (Auto) Lymph % (Auto) Dougherty % (Auto) Eos % (Auto) Baso % (Auto) Neut # (Auto) Lymph # (Auto) Dougherty # (Auto) Eos # (Auto) Baso # (Auto) Neutrophils % (Manual) Band Neutrophils % Lymphocytes % (Manual) Monocytes % (Manual) Eosinophils % (Manual) Platelet Estimate Large Platelets Polychromasia Hypochromasia (manual) Poikilocytosis (manual Anisocytosis (manual) Microcytosis (manual) pO2 31 VBG pH 7.35 VBG pCO2 41 VBG HCO3 21.5 VBG Total CO2 23.9 VBG O2 Sat (Calc) 59.0 VBG Base Excess -2.9 L VBG Potassium 3.9 Glucose 225 H Lactate 1.8 FiO2 21.0 Sodium 134.0 Potassium Chloride 104.0 Carbon Dioxide Anion Gap BUN Creatinine Est GFR ( Amer) Est GFR (Non-Af Amer) POC Glucose (mg/dL) 273 H Random Glucose Calcium Total Bilirubin AST ALT Alkaline Phosphatase Troponin I NT-Pro-B Natriuret Pep Total Protein Albumin Globulin Albumin/Globulin Ratio Vitamin B12 TSH 3rd Generation Venous Blood Potassium 3.9 Urine Color Yellow Urine Clarity Cloudy Urine pH 5.0 Ur Specific Wise 1.017 Urine Protein 100 Urine Glucose (UA) Neg Urine Ketones Negative Urine Blood Negative Urine Nitrate Negative Urine Bilirubin Negative Urine Urobilinogen 0.2-1.0 Ur Leukocyte Esterase Neg Urine RBC (Auto) 1 Urine Microscopic WBC 3 Ur Squamous Epith Cells 1 Amorphous Sediment Occ H Urine Bacteria Occ H Hyaline Casts 0-2 Granular Casts (Auto) 66 08/20/17 08/20/17 08/20/17 03:30 04:35 04:35 WBC 8.5 RBC 3.23 L Hgb 9.3 L Hct 28.9 L MCV 89.4 MCH 28.9 MCHC 32.3 L RDW 17.8 H Plt Count 140 MPV 11.3 Neut % (Auto) 91.8 H Lymph % (Auto) 4.2 L Dougherty % (Auto) 3.8 Eos % (Auto) 0.0 Baso % (Auto) 0.2 Neut # (Auto) 7.8 H Lymph # (Auto) 0.4 L Dougherty # (Auto) 0.3 Eos # (Auto) 0.0 Baso # (Auto) 0.0 Neutrophils % (Manual) 93 H Band Neutrophils % 1 Lymphocytes % (Manual) 2 L Monocytes % (Manual) 4 Eosinophils % (Manual) Platelet Estimate Normal Large Platelets Present Polychromasia Hypochromasia (manual) Slight Poikilocytosis (manual Anisocytosis (manual) Microcytosis (manual) pO2 VBG pH VBG pCO2 VBG HCO3 VBG Total CO2 VBG O2 Sat (Calc) VBG Base Excess VBG Potassium Glucose Lactate FiO2 Sodium 136 Potassium 4.1 Chloride 103 Carbon Dioxide 21 L Anion Gap 16 BUN 34 H Creatinine 1.4 H Est GFR ( Amer) 45 Est GFR (Non-Af Amer) 37 POC Glucose (mg/dL) Random Glucose 316 H Calcium 4.9 L* Total Bilirubin 0.7 AST 20 ALT 33 Alkaline Phosphatase 89 Troponin I 0.0870 NT-Pro-B Natriuret Pep 43697 H Total Protein 6.2 L Albumin 3.2 L Globulin 3.0 Albumin/Globulin Ratio 1.1 Vitamin B12 TSH 3rd Generation Venous Blood Potassium Urine Color Urine Clarity Urine pH Ur Specific Wise Urine Protein Urine Glucose (UA) Urine Ketones Urine Blood Urine Nitrate Urine Bilirubin Urine Urobilinogen Ur Leukocyte Esterase Urine RBC (Auto) Urine Microscopic WBC Ur Squamous Epith Cells Amorphous Sediment Urine Bacteria Hyaline Casts Granular Casts (Auto) 08/20/17 08/20/17 08/20/17 05:52 10:41 10:57 WBC RBC Hgb Hct MCV MCH MCHC RDW Plt Count MPV Neut % (Auto) Lymph % (Auto) Dougherty % (Auto) Eos % (Auto) Baso % (Auto) Neut # (Auto) Lymph # (Auto) Dougherty # (Auto) Eos # (Auto) Baso # (Auto) Neutrophils % (Manual) Band Neutrophils % Lymphocytes % (Manual) Monocytes % (Manual) Eosinophils % (Manual) Platelet Estimate Large Platelets Polychromasia Hypochromasia (manual) Poikilocytosis (manual Anisocytosis (manual) Microcytosis (manual) pO2 VBG pH VBG pCO2 VBG HCO3 VBG Total CO2 VBG O2 Sat (Calc) VBG Base Excess VBG Potassium Glucose Lactate FiO2 Sodium Potassium Chloride Carbon Dioxide Anion Gap BUN Creatinine Est GFR ( Amer) Est GFR (Non-Af Amer) POC Glucose (mg/dL) 331 H Random Glucose Calcium 4.7 L* Total Bilirubin AST ALT Alkaline Phosphatase Troponin I 0.0580 NT-Pro-B Natriuret Pep Total Protein Albumin Globulin Albumin/Globulin Ratio Vitamin B12 594 TSH 3rd Generation 0.39 L Venous Blood Potassium Urine Color Urine Clarity Urine pH Ur Specific Wise Urine Protein Urine Glucose (UA) Urine Ketones Urine Blood Urine Nitrate Urine Bilirubin Urine Urobilinogen Ur Leukocyte Esterase Urine RBC (Auto) Urine Microscopic WBC Ur Squamous Epith Cells Amorphous Sediment Urine Bacteria Hyaline Casts Granular Casts (Auto) 08/20/17 11:11 WBC RBC Hgb Hct MCV MCH MCHC RDW Plt Count MPV Neut % (Auto) Lymph % (Auto) Dougherty % (Auto) Eos % (Auto) Baso % (Auto) Neut # (Auto) Lymph # (Auto) Dougherty # (Auto) Eos # (Auto) Baso # (Auto) Neutrophils % (Manual) Band Neutrophils % Lymphocytes % (Manual) Monocytes % (Manual) Eosinophils % (Manual) Platelet Estimate Large Platelets Polychromasia Hypochromasia (manual) Poikilocytosis (manual Anisocytosis (manual) Microcytosis (manual) pO2 VBG pH VBG pCO2 VBG HCO3 VBG Total CO2 VBG O2 Sat (Calc) VBG Base Excess VBG Potassium Glucose Lactate FiO2 Sodium Potassium Chloride Carbon Dioxide Anion Gap BUN Creatinine Est GFR ( Amer) Est GFR (Non-Af Amer) POC Glucose (mg/dL) 395 H Random Glucose Calcium Total Bilirubin AST ALT Alkaline Phosphatase Troponin I NT-Pro-B Natriuret Pep Total Protein Albumin Globulin Albumin/Globulin Ratio Vitamin B12 TSH 3rd Generation Venous Blood Potassium Urine Color Urine Clarity Urine pH Ur Specific Wise Urine Protein Urine Glucose (UA) Urine Ketones Urine Blood Urine Nitrate Urine Bilirubin Urine Urobilinogen Ur Leukocyte Esterase Urine RBC (Auto) Urine Microscopic WBC Ur Squamous Epith Cells Amorphous Sediment Urine Bacteria Hyaline Casts Granular Casts (Auto) Assessment & Plan (1) Syncope and collapse Assessment and Plan: Based on the history of being on atypical antipsychotic and having an episode of loss of consciousness with tongue biting, urinary/bowel incontinence, the patient may have had a seizure that could be induced by the lowering of the seizure threshold with Abilify. I recommend starting depakote 250 mg BID and consider switching to an alternative medication such as seroquel. Thank you. Status: Acute Priority: High
[2017-08-20] MEDS: Divalproex 250 mg DR(BID formulation) PO SCH (18:09)
[2017-08-20] MEDS ORDERED: Calcium Gluconate 4.6 MEQ in Sodium Chloride 0.9% 100 ML IVPB ONE (19:10)
--- NOTE | 2017-08-20 19:16 | CP.PCM.PCO ---
Physician Communication Note - Physician Communication Note Physician Communication Note: I called Dr. Mann because calcium level this afternoon was 5.1 Progress Note - Review of Symptoms Events since last encounter: Dr. Mann recommended to give now one dose of Calcium Gluconate 4.6 MEQ/100 ml of NS to be infused in 1 hour. Will re-check calcium tomorrow morning.
[2017-08-20] MEDS ORDERED: Potassium Chloride 20 mEq/15 ml LIQ UD PO ONE (19:30)
[2017-08-20] MEDS ORDERED: Magnesium Sulfate 1 gm in D5W 1 GM/100 ML BAG IVPB ONE (19:30)
[2017-08-20] MEDS ORDERED: Calcium Gluconate 4.6 MEQ in Sodium Chloride 0.9% 100 ML IV ONE (19:45)
--- NOTE | 2017-08-20 21:03 | CON ---
DATE: 08/20/2017 HISTORY: Mrs. Perkins is a 71-year-old female who is well known to me from prior admission. She was referred for pulmonary evaluation after she was admitted for loss of consciousness. She is awake, alert, oriented and is able to give a history. She denies chest pains or shortness of breath at present. 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 FAMILY HISTORY: Non-revealing. SOCIAL HISTORY: She denies smoking or alcohol or drug use. REVIEW OF SYSTEMS: Remarkable for joint aches and pains and occasional shortness of breath. PHYSICAL EXAMINATION: GENERAL: The patient is alert and oriented, appears comfortable at present except for tremors of all extremities. VITAL SIGNS: Remarkable for blood pressure of 129/51, pulse of 89, respiratory rate 23 per minute, she is febrile, O2 sat 99% on nasal cannula. SKIN: Shows fair turgor. HEENT: Pupils are equal, reactive to light and accommodation. JVP flat. Mouth shows fair hygiene. LUNGS: Scattered bilateral rales with dullness at the bases. HEART: S1, S2. ABDOMEN: Soft, nontender. No organomegaly. EXTREMITIES: Shows arthritis changes. NEUROLOGIC: The patient is awake, alert and oriented. No gross neurologic deficits appreciated at present. LABORATORY DATA: Remarkable for a chest x-ray that shows mild pulmonary congestion, cardiomegaly, elevated left hemidiaphragm with crowding of bronchovascular markings, bibasilar atelectasis. CT scan of the head, no acute intracranial pathology noted. WBC 8.5, hemoglobin 9.3, platelet count 140,000. Sodium 136, potassium 4.1, BUN 34, creatinine 1.4, serum calcium 4.9, glucose 331, proBNP 17,500. Venous blood gas pH 7.35, pCO2 41, pO2 of 31. Lactate was . IMPRESSION: Syncopal episode questionable etiology, one has to rule out seizure disorder, severe hypocalcemia, history of multiple myeloma, history of chronic obstructive pulmonary disease, history of rheumatoid arthritis. PLAN: To continue therapy as ordered. We will continue to follow with you. Taj No MD [facility] # [id number]
[2017-08-20] MEDS: Albuterol-Ipratrop 3 mg / 0.5 (3 ml) UD INH PRN (21:39)
[2017-08-20 22:10] LABS: PROLACTIN < 1.4 ng/mL (3.0-18.9)
[2017-08-21] MEDS: Albuterol-Ipratrop 3 mg / 0.5 (3 ml) UD INH SCH ×4 (01:19→19:34)
--- NOTE | 2017-08-21 03:32 | CON ---
DATE: 08/20/2017 LOCATION: Room 431, ICU. SUBJECTIVE: This is a 71-year-old female with a complex and extensive medical history, presenting here with a syncopal episode and apparent generalized seizure events at home and is being referred now for endocrine evaluation for possible adrenal insufficiency. 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 Past medical history as mentioned above, history of multiple myeloma, being followed closely by Dr. Vilchis, her oncologist, who has her on a hydrocortisone given as 20 mg once a week and 10 mg at bedtime, history of type 2 insulin-requiring diabetes, again on a combination of Humalog given as 5 units t.i.d. with meals and basal insulin with Levemir given as 14 units in the morning and 10 units in the evening with metformin given as 500 mg b.i.d. History of hypothyroidism, currently on levothyroxine given as 75 mcg once daily, history of generalized anxiety and depression with marked insomnia and disrupted sleep patterns, history of hypertension and dyslipidemia, history of chronic obstructive lung disease and pulmonary hypertension with previous admissions for heart failure. She is currently on home oxygen therapy and is followed closely by Dr. 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 She also has obstructive sleep apnea using a CPAP device at home for bedtime use. She also has history of deep vein thrombosis and pulmonary embolism with a prior IVC filter insertion as noted. History of multiple fractures and the last one was in the left hip few months ago. History of hypocalcemia, the exact etiology again is not clear at this time and has been taking calcium and vitamin D supplements at home. FAMILY HISTORY: Positive for hypertension and heart disease. No known thyroid endocrinopathy. SOCIAL HISTORY The patient has supportive family. No known substance use. REVIEW OF SYSTEMS: As mentioned above. Admits to generalized body weakness with progressive bouts of dizziness and lightheadedness, worse on the day of admission. Also admits to near syncopal episodes many times a week as noted. Also admits to bifrontal headaches with generalized body weakness and suboptimal energy level. No chest pains or palpitations, but admits to progressive shortness of breath, especially on exertion. Her oral intake has been variable with nausea, dyspepsia, and vague upper abdominal pain. Also admits to habitual constipation and lower extremity paresthesias, especially nocturnally. PHYSICAL EXAMINATION: GENERAL: This is an overweight female in no apparent distress with a blood pressure of 140/80, pulse of 70 beats per minute and regular, temperature 98, respirations 20, height is 4 feet 10 inches, weight is 197 pounds. HEENT: Head normocephalic. Eyes anicteric with pink conjunctivae. Funduscopy not possible at this time. Ears, nose and throat, otherwise, normal. NECK: Supple. Thyroid gland is normal in size. No carotid bruits or cervical adenopathy. CARDIOPULMONARY: Some adynamic precordium. S1, S2 is rapid and regular. LUNGS: Clear to auscultation. ABDOMEN: Flat, soft with positive bowel sounds. EXTREMITIES: No peripheral edema. Pulses are +2 bilaterally. LABORATORY DATA: The glucose values today have ranged from 287 to 395 mg/dL. Her calcium level is 4.9 with an albumin level of 3.2 and a corrected calcium of 5.7 mg/dL which is still slight low as noted. Her proBNP is 17,500. Her TSH is 0.39, and the chemistries, BUN of 34, sodium 136, potassium 4.1, chloride 103, CO2 of 21, glucose 316, and creatinine 1.4. ASSESSMENT: This is a 71-year-old female with symptomatic hypocalcemia and the etiology of which has to be ascertained whether we are dealing with parathyroid versus nonparathyroid condition although with her advanced age, it is quite remote to find autoimmune related hypocalcemic syndromes or the so-called pseudohypoparathyroidism. The most common etiology would be a nutritional factor with marked hypoalbuminemia but with a corrected calcium levels, this is still quite low value at this time as noted. She also has uncontrolled type 2 insulin-requiring diabetes with a subtherapeutic insulin regimen as noted. Moreover, she also has possible secondary hypoadrenalism or adrenal insufficiency, and we are awaiting the reports of the cortisol level to determine whether dose adjustments have to be undertaken thereof. Moreover, although she remains clinically euthyroid but biochemically has evidence of a suppressed TSH which could be caused even from the intercurrent steroid therapy and/or over replacement of the levothyroxine medications as given. PLAN OF MANAGEMENT: We will obtain a baseline serum cortisol and ACTH level tomorrow and will adjust her dose regimen accordingly. In the meantime, we will continue her hydrocortisone replacement therapy as given. We will also repeat the thyroid studies and adjust her dose regimen for the levothyroxine accordingly. We will modify her current insulin regimen to a more physiologic basal and bolus insulin drug combination and increase her Humalog to 10 units subcu t.i.d. before meals to start today as ordered. We will also increase the basal insulin with Levemir to be given at a higher dose of 24 units subcu at bedtime daily as ordered. We will discontinue the morning Levemir to avoid confusion with the staff and also with the patient upon discharge. We will modify the coverage scale to obviate hypoglycemia and detailed orders have been given. We will obtain serial chemistries and supplement accordingly needed. Moreover, we will also await results of the parathyroid hormone intact levels as ordered. We will follow and advise accordingly. Irene Mann MD
[2017-08-21 05:49] LABS: BASO % 0.2 % (0.0-2.0); HEMOGLOBIN 8.6 g/dL (12.0-16.0); LYMPH # 0.2 K/uL (1.0-4.3); LYMPH % 1.9 % (20.0-40.0); MEAN CELL VOLUME 90.4 fl (81.0-99.0); MEAN CORPUSCULAR HEMOGLOBIN 28.7 pg (27.0-31.0); MEAN CORPUSCULAR HGB CONC 31.7 g/dL (33.0-37.0); MEAN PLATELET VOLUME 11.1 fl (7.2-11.7); MONO # 0.6 K/uL (0.0-0.8); MONO % 5.1 % (0.0-10.0); NEUT # 11.1 K/uL (1.8-7.0); NEUT % 92.8 % (50.0-75.0); NRBC % 0.1 % (0.0-0.0); RBC 2.99 Mil/uL (3.80-5.20); RED CELL DISTRIBUTION WIDTH 17.9 % (11.5-14.5)
[2017-08-21 06:17] LABS: T4 3.22 ug/dl (5.5-11.0)
[2017-08-21 06:32] LABS: CALCIUM 5.3 mg/dL (8.4-10.2)
--- NOTE | 2017-08-21 08:02 | CP.CCUPN ---
CCU Subjective - Physician Review Events Since Last Encounter (Free Text): Patient awake, no distress, on O2 supplement by nasal canula, no vomiting, no fever, no chest pain, no cough,events reviewed CCU Objective - Vital Signs / Intake & Output Vital Signs (Last 4 hours): Vital Signs Temp Pulse Resp BP Pulse Ox 08/21/17 07:27 65 08/21/17 06:00 65 15 153/72 H 99 08/21/17 04:00 97.6 F 64 13 128/55 L 98 Intake and Output (Last 8hrs): Intake & Output 08/20/17 08/21/17 08/21/17 22:59 06:59 14:59 Intake Total 400 300 Output Total 700 600 Balance -300 -300 Intake: IV 0 0 Intake, Piggyback 100 300 Oral 300 Output: Urine 700 600 Urethral ([place]) 700 600 - Physical Exam Head: Positive for: Atraumatic, Normocephalic Pupils: Positive for: PERRL Conjunctiva: Positive for: Normal Mouth: Positive for: Dry Nose (External): Positive for: Atraumatic Neck: Positive for: Normal Range of Motion Respiratory/Chest: Positive for: Clear to Auscultation Cardiovascular: Positive for: Regular Rate and Rhythm Abdomen: Positive for: Normal Bowel Sounds Upper Extremity: Positive for: Normal Inspection Lower Extremity: Positive for: Normal Inspection Neurological: Positive for: GCS=15, Speech Normal Skin: Positive for: Dry Psychiatric: Positive for: Alert - Medications Active Medications: Active Medications Generic Name Dose Route Start Last Admin Trade Name Freq PRN Reason Stop Dose Admin Albuterol/Ipratropium 3 ml 08/20/17 05:01 08/20/17 21:39 Duoneb 3 Mg/0.5 Mg (3 Ml) Ud INH 3 ml RQ4 PRN Administration Shortness of Breath Albuterol/Ipratropium 3 ml 08/20/17 14:00 08/21/17 07:27 Duoneb 3 Mg/0.5 Mg (3 Ml) Ud INH 3 ml RQ6 MARISABEL Administration Aripiprazole 5 mg 08/20/17 22:00 08/20/17 21:34 Abilify PO 5 mg HS MARISABEL Administration Aspirin 81 mg 08/20/17 09:00 08/20/17 08:38 Ecotrin PO 81 mg DAILY MARISABEL Administration Buspirone HCl 10 mg 08/20/17 22:00 08/20/17 21:35 Buspar PO 10 mg Q12@1000,2200 MARISABEL Administration Calcitriol 0.5 mcg 08/20/17 17:00 08/20/17 18:11 Rocaltrol PO 0.5 mcg BID MARISABEL Administration Clonazepam 0.5 mg 08/19/17 23:45 08/20/17 11:30 Klonopin PO 0.5 mg DAILY PRN Administration Anxiety Dexamethasone 20 mg 08/23/17 09:00 Decadron PO MON MARISABEL Dextrose 0 ml 08/20/17 00:06 Dextrose 50% Inj IV STAT PRN Hypoglycemia Protocol Protocol Dextrose 0 gm 08/20/17 00:06 Glutose 15 PO ONCE PRN Hypoglycemia Protocol Protocol Divalproex Sodium 250 mg 08/20/17 17:00 08/20/17 18:09 José Antonio Hines(*Bid*) PO 250 mg BID MARISABEL Administration Enalapril Maleate 2.5 mg 08/20/17 09:00 Vasotec PO DAILY MARISABEL Enoxaparin Sodium 40 mg 08/20/17 09:00 08/20/17 08:42 Lovenox SC 40 mg DAILY MARISABEL Administration Protocol Furosemide 20 mg 08/19/17 23:45 08/20/17 01:42 Lasix PO 20 mg Q48H MARISABEL Administration Glucagon 0 mg 08/20/17 00:06 Glucagen Diagnostic Kit IM STAT PRN Hypoglycemia Protocol Protocol Home Med 2 mg 08/20/17 09:00 08/20/17 18:10 Riociguat [Adempas] PO 2 mg TID MARISABEL Administration Hydrocortisone 10 mg 08/19/17 23:45 08/20/17 21:36 Cortef PO 10 mg HS MARISABEL Administration Insulin Detemir 24 units 08/20/17 22:00 08/20/17 21:37 Levemir SC 24 units HS MARISABEL Administration Insulin Human Lispro 10 units 08/20/17 16:30 08/20/17 18:10 Humalog SC 10 units AC MARISABEL Administration Insulin Human Lispro 0 units 08/20/17 22:00 08/20/17 21:36 Humalog SC Not Given ACHS MARISABEL Levothyroxine Sodium 75 mcg 08/20/17 06:30 08/20/17 06:53 Synthroid PO 75 mcg DAILY@0630 MARISABEL Administration Metformin HCl 500 mg 08/20/17 09:00 08/20/17 18:09 Glucophage PO 500 mg BID MARISABEL Administration Metoprolol Tartrate 25 mg 08/20/17 21:00 08/20/17 21:35 Lopressor PO 25 mg Q12 MARISABEL Administration Pantoprazole Sodium 40 mg 08/20/17 09:00 08/20/17 08:42 Protonix Ec Tab PO 40 mg DAILY MARISABEL Administration - Patient Studies Lab Studies: Microbiology Studies 08/19/17 19:20 Blood Culture - Preliminary Blood-Venous NO GROWTH AFTER 24 HOURS 08/19/17 19:05 Blood Culture - Preliminary Blood-Venous NO GROWTH AFTER 24 HOURS Lab Studies 08/21/17 08/21/17 08/21/17 Range/Units 07:01 05:19 04:16 WBC (4.8-10.8) K/uL RBC (3.80-5.20) Mil/uL Hgb (12.0-16.0) g/dL Hct (34.0-47.0) % MCV (81.0-99.0) fl MCH (27.0-31.0) pg MCHC (33.0-37.0) g/dL RDW (11.5-14.5) % Plt Count (130-400) K/uL MPV (7.2-11.7) fl Neut % (Auto) (50.0-75.0) % Lymph % (Auto) (20.0-40.0) % [place] % (Auto) (0.0-10.0) % Eos % (Auto) (0.0-4.0) % Baso % (Auto) (0.0-2.0) % Neut # (Auto) (1.8-7.0) K/uL Lymph # (Auto) (1.0-4.3) K/uL [place] # (Auto) (0.0-0.8) K/uL Eos # (Auto) (0.0-0.7) K/uL Baso # (Auto) (0.0-0.2) K/uL Total Counted Neutrophils % (Manual) Band Neutrophils % Lymphocytes % (Manual) Reactive Lymphs % Monocytes % (Manual) Eosinophils % (Manual) Basophils % (Manual) Metamyelocytes % Myelocytes % Promyelocytes % Blast Cells % Plasma Cell % (Manual) Nucleated RBC % Hypersegmented Polys Smudge Cells Toxic Granulation Dohle Bodies Naeem Rods Platelet Estimate Plt Clumps, EDTA Large Platelets Giant Platelets RBC Morphology Polychromasia Hypochromasia (manual) Poikilocytosis (manual Basophilic Stippling Anisocytosis (manual) Microcytosis (manual) Macrocytosis (manual) Spherocytes Sickle Cells Target Cells Tear Drop Cells Ovalocytes Stomatocytes Helmet Cells [place] Bodies [place] Cells Acanthocytes (Spur) Rouleaux Schistocytes Sodium 132 (132-148) mmol/l Potassium 4.7 (3.6-5.0) MMOL/L Chloride 100 (98-107) mmol/L Carbon Dioxide 18 L (22-30) mmol/L Anion Gap 19 (10-20) BUN 39 H (7-17) mg/dl Creatinine 1.5 H (0.7-1.2) mg/dl Est GFR ( Amer) 42 Est GFR (Non-Af Amer) 34 POC Glucose (mg/dL) 242 H (65-110) mg/dL Random Glucose 249 H (65-105) mg/dL Calcium 5.3 L* (8.4-10.2) mg/dL Phosphorus 3.9 (2.5-4.5) mg/dl Magnesium 2.5 H (1.6-2.3) MG/DL Total Bilirubin 0.5 (0.2-1.3) mg/dl AST 27 (14-36) U/L ALT 25 (9-52) U/L Alkaline Phosphatase 86 (38-126) U/L Troponin I 0.0400 (0.00-0.120) ng/mL Total Protein 6.0 L (6.3-8.2) G/DL Albumin 3.0 L (3.5-5.0) g/dL Globulin 3.0 (2.2-3.9) gm/dL Albumin/Globulin Ratio 1.0 (1.0-2.1) Vitamin B12 (239-931) pg/mL Procalcitonin (0.19-0.49) NG/ML Thyroxine (T4) 3.22 L (5.5-11.0) ug/dl TSH 3rd Generation 0.21 L (0.46-4.68) mIU/ML Prolactin (3.0-18.9) ng/mL RPR (NONREACTIVE) 08/21/17 08/20/17 08/20/17 Range/Units 04:16 21:18 17:00 WBC 12.0 H (4.8-10.8) K/uL RBC 2.99 L (3.80-5.20) Mil/uL Hgb 8.6 L (12.0-16.0) g/dL Hct 27.0 L (34.0-47.0) % MCV 90.4 (81.0-99.0) fl MCH 28.7 (27.0-31.0) pg MCHC 31.7 L (33.0-37.0) g/dL RDW 17.9 H (11.5-14.5) % Plt Count 181 (130-400) K/uL MPV 11.1 (7.2-11.7) fl Neut % (Auto) 92.8 H (50.0-75.0) % Lymph % (Auto) 1.9 L (20.0-40.0) % [place] % (Auto) 5.1 (0.0-10.0) % Eos % (Auto) 0.0 (0.0-4.0) % Baso % (Auto) 0.2 (0.0-2.0) % Neut # (Auto) 11.1 H (1.8-7.0) K/uL Lymph # (Auto) 0.2 L (1.0-4.3) K/uL [place] # (Auto) 0.6 (0.0-0.8) K/uL Eos # (Auto) 0.0 (0.0-0.7) K/uL Baso # (Auto) 0.0 (0.0-0.2) K/uL Total Counted Cancelled Neutrophils % (Manual) Cancelled Band Neutrophils % Cancelled Lymphocytes % (Manual) Cancelled Reactive Lymphs % Cancelled Monocytes % (Manual) Cancelled Eosinophils % (Manual) Cancelled Basophils % (Manual) Cancelled Metamyelocytes % Cancelled Myelocytes % Cancelled Promyelocytes % Cancelled Blast Cells % Cancelled Plasma Cell % (Manual) Cancelled Nucleated RBC % Cancelled Hypersegmented Polys Cancelled Smudge Cells Cancelled Toxic Granulation Cancelled Dohle Bodies Cancelled Naeem Rods Cancelled Platelet Estimate Cancelled Plt Clumps, EDTA Cancelled Large Platelets Cancelled Giant Platelets Cancelled RBC Morphology Cancelled Polychromasia Cancelled Hypochromasia (manual) Cancelled Poikilocytosis (manual Cancelled Basophilic Stippling Cancelled Anisocytosis (manual) Cancelled Microcytosis (manual) Cancelled Macrocytosis (manual) Cancelled Spherocytes Cancelled Sickle Cells Cancelled Target Cells Cancelled Tear Drop Cells Cancelled Ovalocytes Cancelled Stomatocytes Cancelled Helmet Cells Cancelled [place] Bodies Cancelled [place] Cells Cancelled Acanthocytes (Spur) Cancelled Rouleaux Cancelled Schistocytes Cancelled Sodium (132-148) mmol/l Potassium (3.6-5.0) MMOL/L Chloride (98-107) mmol/L Carbon Dioxide (22-30) mmol/L Anion Gap (10-20) BUN (7-17) mg/dl Creatinine (0.7-1.2) mg/dl Est GFR ( Amer) Est GFR (Non-Af Amer) POC Glucose (mg/dL) 240 H (65-110) mg/dL Random Glucose (65-105) mg/dL Calcium (8.4-10.2) mg/dL Phosphorus 3.3 (2.5-4.5) mg/dl Magnesium 1.8 (1.6-2.3) MG/DL Total Bilirubin (0.2-1.3) mg/dl AST (14-36) U/L ALT (9-52) U/L Alkaline Phosphatase (38-126) U/L Troponin I (0.00-0.120) ng/mL Total Protein (6.3-8.2) G/DL Albumin (3.5-5.0) g/dL Globulin (2.2-3.9) gm/dL Albumin/Globulin Ratio (1.0-2.1) Vitamin B12 (239-931) pg/mL Procalcitonin (0.19-0.49) NG/ML Thyroxine (T4) (5.5-11.0) ug/dl TSH 3rd Generation (0.46-4.68) mIU/ML Prolactin (3.0-18.9) ng/mL RPR (NONREACTIVE) 08/20/17 08/20/17 08/20/17 Range/Units 17:00 15:47 11:11 WBC (4.8-10.8) K/uL RBC (3.80-5.20) Mil/uL Hgb (12.0-16.0) g/dL Hct (34.0-47.0) % MCV (81.0-99.0) fl MCH (27.0-31.0) pg MCHC (33.0-37.0) g/dL RDW (11.5-14.5) % Plt Count (130-400) K/uL MPV (7.2-11.7) fl Neut % (Auto) (50.0-75.0) % Lymph % (Auto) (20.0-40.0) % [place] % (Auto) (0.0-10.0) % Eos % (Auto) (0.0-4.0) % Baso % (Auto) (0.0-2.0) % Neut # (Auto) (1.8-7.0) K/uL Lymph # (Auto) (1.0-4.3) K/uL [place] # (Auto) (0.0-0.8) K/uL Eos # (Auto) (0.0-0.7) K/uL Baso # (Auto) (0.0-0.2) K/uL Total Counted Neutrophils % (Manual) Band Neutrophils % Lymphocytes % (Manual) Reactive Lymphs % Monocytes % (Manual) Eosinophils % (Manual) Basophils % (Manual) Metamyelocytes % Myelocytes % Promyelocytes % Blast Cells % Plasma Cell % (Manual) Nucleated RBC % Hypersegmented Polys Smudge Cells Toxic Granulation Dohle Bodies Naeem Rods Platelet Estimate Plt Clumps, EDTA Large Platelets Giant Platelets RBC Morphology Polychromasia Hypochromasia (manual) Poikilocytosis (manual Basophilic Stippling Anisocytosis (manual) Microcytosis (manual) Macrocytosis (manual) Spherocytes Sickle Cells Target Cells Tear Drop Cells Ovalocytes Stomatocytes Helmet Cells [place] Bodies [place] Cells Acanthocytes (Spur) Rouleaux Schistocytes Sodium (132-148) mmol/l Potassium (3.6-5.0) MMOL/L Chloride (98-107) mmol/L Carbon Dioxide (22-30) mmol/L Anion Gap (10-20) BUN (7-17) mg/dl Creatinine (0.7-1.2) mg/dl Est GFR ( Amer) Est GFR (Non-Af Amer) POC Glucose (mg/dL) 287 H 395 H (65-110) mg/dL Random Glucose (65-105) mg/dL Calcium 5.1 L* (8.4-10.2) mg/dL Phosphorus (2.5-4.5) mg/dl Magnesium (1.6-2.3) MG/DL Total Bilirubin (0.2-1.3) mg/dl AST (14-36) U/L ALT (9-52) U/L Alkaline Phosphatase (38-126) U/L Troponin I (0.00-0.120) ng/mL Total Protein (6.3-8.2) G/DL Albumin (3.5-5.0) g/dL Globulin (2.2-3.9) gm/dL Albumin/Globulin Ratio (1.0-2.1) Vitamin B12 (239-931) pg/mL Procalcitonin (0.19-0.49) NG/ML Thyroxine (T4) (5.5-11.0) ug/dl TSH 3rd Generation (0.46-4.68) mIU/ML Prolactin (3.0-18.9) ng/mL RPR (NONREACTIVE) 08/20/17 08/20/17 08/20/17 Range/Units 10:57 10:57 10:41 WBC (4.8-10.8) K/uL RBC (3.80-5.20) Mil/uL Hgb (12.0-16.0) g/dL Hct (34.0-47.0) % MCV (81.0-99.0) fl MCH (27.0-31.0) pg MCHC (33.0-37.0) g/dL RDW (11.5-14.5) % Plt Count (130-400) K/uL MPV (7.2-11.7) fl Neut % (Auto) (50.0-75.0) % Lymph % (Auto) (20.0-40.0) % [place] % (Auto) (0.0-10.0) % Eos % (Auto) (0.0-4.0) % Baso % (Auto) (0.0-2.0) % Neut # (Auto) (1.8-7.0) K/uL Lymph # (Auto) (1.0-4.3) K/uL [place] # (Auto) (0.0-0.8) K/uL Eos # (Auto) (0.0-0.7) K/uL Baso # (Auto) (0.0-0.2) K/uL Total Counted Neutrophils % (Manual) Band Neutrophils % Lymphocytes % (Manual) Reactive Lymphs % Monocytes % (Manual) Eosinophils % (Manual) Basophils % (Manual) Metamyelocytes % Myelocytes % Promyelocytes % Blast Cells % Plasma Cell % (Manual) Nucleated RBC % Hypersegmented Polys Smudge Cells Toxic Granulation Dohle Bodies Naeem Rods Platelet Estimate Plt Clumps, EDTA Large Platelets Giant Platelets RBC Morphology Polychromasia Hypochromasia (manual) Poikilocytosis (manual Basophilic Stippling Anisocytosis (manual) Microcytosis (manual) Macrocytosis (manual) Spherocytes Sickle Cells Target Cells Tear Drop Cells Ovalocytes Stomatocytes Helmet Cells [place] Bodies [place] Cells Acanthocytes (Spur) Rouleaux Schistocytes Sodium (132-148) mmol/l Potassium (3.6-5.0) MMOL/L Chloride (98-107) mmol/L Carbon Dioxide (22-30) mmol/L Anion Gap (10-20) BUN (7-17) mg/dl Creatinine (0.7-1.2) mg/dl Est GFR ( Amer) Est GFR (Non-Af Amer) POC Glucose (mg/dL) (65-110) mg/dL Random Glucose (65-105) mg/dL Calcium 4.7 L* (8.4-10.2) mg/dL Phosphorus (2.5-4.5) mg/dl Magnesium (1.6-2.3) MG/DL Total Bilirubin (0.2-1.3) mg/dl AST (14-36) U/L ALT (9-52) U/L Alkaline Phosphatase (38-126) U/L Troponin I 0.0580 (0.00-0.120) ng/mL Total Protein (6.3-8.2) G/DL Albumin (3.5-5.0) g/dL Globulin (2.2-3.9) gm/dL Albumin/Globulin Ratio (1.0-2.1) Vitamin B12 594 (239-931) pg/mL Procalcitonin (0.19-0.49) NG/ML Thyroxine (T4) (5.5-11.0) ug/dl TSH 3rd Generation 0.39 L (0.46-4.68) mIU/ML Prolactin < 1.4 L (3.0-18.9) ng/mL RPR Nonreactive (NONREACTIVE) 08/20/17 Range/Units 04:35 WBC (4.8-10.8) K/uL RBC (3.80-5.20) Mil/uL Hgb (12.0-16.0) g/dL Hct (34.0-47.0) % MCV (81.0-99.0) fl MCH (27.0-31.0) pg MCHC (33.0-37.0) g/dL RDW (11.5-14.5) % Plt Count (130-400) K/uL MPV (7.2-11.7) fl Neut % (Auto) (50.0-75.0) % Lymph % (Auto) (20.0-40.0) % [place] % (Auto) (0.0-10.0) % Eos % (Auto) (0.0-4.0) % Baso % (Auto) (0.0-2.0) % Neut # (Auto) (1.8-7.0) K/uL Lymph # (Auto) (1.0-4.3) K/uL [place] # (Auto) (0.0-0.8) K/uL Eos # (Auto) (0.0-0.7) K/uL Baso # (Auto) (0.0-0.2) K/uL Total Counted Neutrophils % (Manual) Band Neutrophils % Lymphocytes % (Manual) Reactive Lymphs % Monocytes % (Manual) Eosinophils % (Manual) Basophils % (Manual) Metamyelocytes % Myelocytes % Promyelocytes % Blast Cells % Plasma Cell % (Manual) Nucleated RBC % Hypersegmented Polys Smudge Cells Toxic Granulation Dohle Bodies Naeem Rods Platelet Estimate Plt Clumps, EDTA Large Platelets Giant Platelets RBC Morphology Polychromasia Hypochromasia (manual) Poikilocytosis (manual Basophilic Stippling Anisocytosis (manual) Microcytosis (manual) Macrocytosis (manual) Spherocytes Sickle Cells Target Cells Tear Drop Cells Ovalocytes Stomatocytes Helmet Cells [place] Bodies [place] Cells Acanthocytes (Spur) Rouleaux Schistocytes Sodium (132-148) mmol/l Potassium (3.6-5.0) MMOL/L Chloride (98-107) mmol/L Carbon Dioxide (22-30) mmol/L Anion Gap (10-20) BUN (7-17) mg/dl Creatinine (0.7-1.2) mg/dl Est GFR ( Amer) Est GFR (Non-Af Amer) POC Glucose (mg/dL) (65-110) mg/dL Random Glucose (65-105) mg/dL Calcium (8.4-10.2) mg/dL Phosphorus (2.5-4.5) mg/dl Magnesium (1.6-2.3) MG/DL Total Bilirubin (0.2-1.3) mg/dl AST (14-36) U/L ALT (9-52) U/L Alkaline Phosphatase (38-126) U/L Troponin I (0.00-0.120) ng/mL Total Protein (6.3-8.2) G/DL Albumin (3.5-5.0) g/dL Globulin (2.2-3.9) gm/dL Albumin/Globulin Ratio (1.0-2.1) Vitamin B12 (239-931) pg/mL Procalcitonin 0.28 (0.19-0.49) NG/ML Thyroxine (T4) (5.5-11.0) ug/dl TSH 3rd Generation (0.46-4.68) mIU/ML Prolactin (3.0-18.9) ng/mL RPR (NONREACTIVE) Laboratory Results - last 24 hr 08/20/17 08/20/17 08/20/17 04:35 10:41 10:57 WBC RBC Hgb Hct MCV MCH MCHC RDW Plt Count MPV Neut % (Auto) Lymph % (Auto) [place] % (Auto) Eos % (Auto) Baso % (Auto) Neut # (Auto) Lymph # (Auto) [place] # (Auto) Eos # (Auto) Baso # (Auto) Total Counted Neutrophils % (Manual) Band Neutrophils % Lymphocytes % (Manual) Reactive Lymphs % Monocytes % (Manual) Eosinophils % (Manual) Basophils % (Manual) Metamyelocytes % Myelocytes % Promyelocytes % Blast Cells % Plasma Cell % (Manual) Nucleated RBC % Hypersegmented Polys Smudge Cells Toxic Granulation Dohle Bodies Naeem Rods Platelet Estimate Plt Clumps, EDTA Large Platelets Giant Platelets RBC Morphology Polychromasia Hypochromasia (manual) Poikilocytosis (manual Basophilic Stippling Anisocytosis (manual) Microcytosis (manual) Macrocytosis (manual) Spherocytes Sickle Cells Target Cells Tear Drop Cells Ovalocytes Stomatocytes Helmet Cells [place] Bodies [place] Cells Acanthocytes (Spur) Rouleaux Schistocytes Sodium Potassium Chloride Carbon Dioxide Anion Gap BUN Creatinine Est GFR ( Amer) Est GFR (Non-Af Amer) POC Glucose (mg/dL) Random Glucose Calcium 4.7 L* Phosphorus Magnesium Total Bilirubin AST ALT Alkaline Phosphatase Troponin I Total Protein Albumin Globulin Albumin/Globulin Ratio Vitamin B12 594 Procalcitonin 0.28 Thyroxine (T4) TSH 3rd Generation 0.39 L Prolactin < 1.4 L RPR Nonreactive 08/20/17 08/20/17 08/20/17 10:57 11:11 15:47 WBC RBC Hgb Hct MCV MCH MCHC RDW Plt Count MPV Neut % (Auto) Lymph % (Auto) [place] % (Auto) Eos % (Auto) Baso % (Auto) Neut # (Auto) Lymph # (Auto) [place] # (Auto) Eos # (Auto) Baso # (Auto) Total Counted Neutrophils % (Manual) Band Neutrophils % Lymphocytes % (Manual) Reactive Lymphs % Monocytes % (Manual) Eosinophils % (Manual) Basophils % (Manual) Metamyelocytes % Myelocytes % Promyelocytes % Blast Cells % Plasma Cell % (Manual) Nucleated RBC % Hypersegmented Polys Smudge Cells Toxic Granulation Dohle Bodies Naeem Rods Platelet Estimate Plt Clumps, EDTA Large Platelets Giant Platelets RBC Morphology Polychromasia Hypochromasia (manual) Poikilocytosis (manual Basophilic Stippling Anisocytosis (manual) Microcytosis (manual) Macrocytosis (manual) Spherocytes Sickle Cells Target Cells Tear Drop Cells Ovalocytes Stomatocytes Helmet Cells [place] Bodies [place] Cells Acanthocytes (Spur) Rouleaux Schistocytes Sodium Potassium Chloride Carbon Dioxide Anion Gap BUN Creatinine Est GFR ( Amer) Est GFR (Non-Af Amer) POC Glucose (mg/dL) 395 H 287 H Random Glucose Calcium Phosphorus Magnesium Total Bilirubin AST ALT Alkaline Phosphatase Troponin I 0.0580 Total Protein Albumin Globulin Albumin/Globulin Ratio Vitamin B12 Procalcitonin Thyroxine (T4) TSH 3rd Generation Prolactin RPR 08/20/17 08/20/17 08/20/17 17:00 17:00 21:18 WBC RBC Hgb Hct MCV MCH MCHC RDW Plt Count MPV Neut % (Auto) Lymph % (Auto) [place] % (Auto) Eos % (Auto) Baso % (Auto) Neut # (Auto) Lymph # (Auto) [place] # (Auto) Eos # (Auto) Baso # (Auto) Total Counted Neutrophils % (Manual) Band Neutrophils % Lymphocytes % (Manual) Reactive Lymphs % Monocytes % (Manual) Eosinophils % (Manual) Basophils % (Manual) Metamyelocytes % Myelocytes % Promyelocytes % Blast Cells % Plasma Cell % (Manual) Nucleated RBC % Hypersegmented Polys Smudge Cells Toxic Granulation Dohle Bodies Naeem Rods Platelet Estimate Plt Clumps, EDTA Large Platelets Giant Platelets RBC Morphology Polychromasia Hypochromasia (manual) Poikilocytosis (manual Basophilic Stippling Anisocytosis (manual) Microcytosis (manual) Macrocytosis (manual) Spherocytes Sickle Cells Target Cells Tear Drop Cells Ovalocytes Stomatocytes Helmet Cells [place] Bodies [place] Cells Acanthocytes (Spur) Rouleaux Schistocytes Sodium Potassium Chloride Carbon Dioxide Anion Gap BUN Creatinine Est GFR ( Amer) Est GFR (Non-Af Amer) POC Glucose (mg/dL) 240 H Random Glucose Calcium 5.1 L* Phosphorus 3.3 Magnesium 1.8 Total Bilirubin AST ALT Alkaline Phosphatase Troponin I Total Protein Albumin Globulin Albumin/Globulin Ratio Vitamin B12 Procalcitonin Thyroxine (T4) TSH 3rd Generation Prolactin RPR 08/21/17 08/21/17 08/21/17 04:16 04:16 05:19 WBC 12.0 H RBC 2.99 L Hgb 8.6 L Hct 27.0 L MCV 90.4 MCH 28.7 MCHC 31.7 L RDW 17.9 H Plt Count 181 MPV 11.1 Neut % (Auto) 92.8 H Lymph % (Auto) 1.9 L [place] % (Auto) 5.1 Eos % (Auto) 0.0 Baso % (Auto) 0.2 Neut # (Auto) 11.1 H Lymph # (Auto) 0.2 L [place] # (Auto) 0.6 Eos # (Auto) 0.0 Baso # (Auto) 0.0 Total Counted Cancelled Neutrophils % (Manual) Cancelled Band Neutrophils % Cancelled Lymphocytes % (Manual) Cancelled Reactive Lymphs % Cancelled Monocytes % (Manual) Cancelled Eosinophils % (Manual) Cancelled Basophils % (Manual) Cancelled Metamyelocytes % Cancelled Myelocytes % Cancelled Promyelocytes % Cancelled Blast Cells % Cancelled Plasma Cell % (Manual) Cancelled Nucleated RBC % Cancelled Hypersegmented Polys Cancelled Smudge Cells Cancelled Toxic Granulation Cancelled Dohle Bodies Cancelled Naeem Rods Cancelled Platelet Estimate Cancelled Plt Clumps, EDTA Cancelled Large Platelets Cancelled Giant Platelets Cancelled RBC Morphology Cancelled Polychromasia Cancelled Hypochromasia (manual) Cancelled Poikilocytosis (manual Cancelled Basophilic Stippling Cancelled Anisocytosis (manual) Cancelled Microcytosis (manual) Cancelled Macrocytosis (manual) Cancelled Spherocytes Cancelled Sickle Cells Cancelled Target Cells Cancelled Tear Drop Cells Cancelled Ovalocytes Cancelled Stomatocytes Cancelled Helmet Cells Cancelled [place] Bodies Cancelled [place] Cells Cancelled Acanthocytes (Spur) Cancelled Rouleaux Cancelled Schistocytes Cancelled Sodium 132 Potassium 4.7 Chloride 100 Carbon Dioxide 18 L Anion Gap 19 BUN 39 H Creatinine 1.5 H Est GFR ( Amer) 42 Est GFR (Non-Af Amer) 34 POC Glucose (mg/dL) 242 H Random Glucose 249 H Calcium 5.3 L* Phosphorus 3.9 Magnesium 2.5 H Total Bilirubin 0.5 AST 27 ALT 25 Alkaline Phosphatase 86 Troponin I Total Protein 6.0 L Albumin 3.0 L Globulin 3.0 Albumin/Globulin Ratio 1.0 Vitamin B12 Procalcitonin Thyroxine (T4) 3.22 L TSH 3rd Generation 0.21 L Prolactin RPR 08/21/17 07:01 WBC RBC Hgb Hct MCV MCH MCHC RDW Plt Count MPV Neut % (Auto) Lymph % (Auto) [place] % (Auto) Eos % (Auto) Baso % (Auto) Neut # (Auto) Lymph # (Auto) [place] # (Auto) Eos # (Auto) Baso # (Auto) Total Counted Neutrophils % (Manual) Band Neutrophils % Lymphocytes % (Manual) Reactive Lymphs % Monocytes % (Manual) Eosinophils % (Manual) Basophils % (Manual) Metamyelocytes % Myelocytes % Promyelocytes % Blast Cells % Plasma Cell % (Manual) Nucleated RBC % Hypersegmented Polys Smudge Cells Toxic Granulation Dohle Bodies Naeem Rods Platelet Estimate Plt Clumps, EDTA Large Platelets Giant Platelets RBC Morphology Polychromasia Hypochromasia (manual) Poikilocytosis (manual Basophilic Stippling Anisocytosis (manual) Microcytosis (manual) Macrocytosis (manual) Spherocytes Sickle Cells Target Cells Tear Drop Cells Ovalocytes Stomatocytes Helmet Cells [place] Bodies [place] Cells Acanthocytes (Spur) Rouleaux Schistocytes Sodium Potassium Chloride Carbon Dioxide Anion Gap BUN Creatinine Est GFR ( Amer) Est GFR (Non-Af Amer) POC Glucose (mg/dL) Random Glucose Calcium Phosphorus Magnesium Total Bilirubin AST ALT Alkaline Phosphatase Troponin I 0.0400 Total Protein Albumin Globulin Albumin/Globulin Ratio Vitamin B12 Procalcitonin Thyroxine (T4) TSH 3rd Generation Prolactin RPR EKG/Cardiology Studies: Cardiology / EKG Studies 08/21/17 09:00 ELECTROCARDIOGRAM DAILY Comment: Mode Of Transportation: PORTABLE Reason For Exam: qt long Fingerstick Blood Sugar Results: 244 Critical Care Progress Note - Nutrition Nutrition: Nutrition Category Date Time Status Heart Healthy Diet [DIET] Diets 08/20/17 Breakfast Active Assessment/Plan - Assessment and Plan (Free Text) Assessment: A/P Syncopal episode, ?seizer, hypocalcemia, azotemia, h/o multiple myloma - Continue meds - O2 supplement - Neurology follow up - DVT prophylaxis - Cardiology follow up - Ca replacement
[2017-08-21] MEDS ORDERED: Calcium Gluconate 4.65 mEq/10 ml Inj IV ONE (08:04)
[2017-08-21] MEDS ORDERED: Calcium Gluconate 4.6 MEQ in Sodium Chloride 0.9% 100 ML IV ONE (08:15)
[2017-08-21] MEDS: Divalproex 250 mg DR(BID formulation) PO SCH ×2 (08:55→16:30)
[2017-08-21] MEDS: Insulin Lispro (humaLOG) 100 Units/ml Inj SC SCH ×7 (08:55→21:12)
[2017-08-21] MEDS: Pantoprazole 40 mg EC Tab PO SCH (08:58)
[2017-08-21] MEDS: Enoxaparin 40 mg Syringe SC SCH (08:58)
[2017-08-21] MEDS: Levothyroxine 75 MCG TAB PO SCH (08:59)
[2017-08-21] MEDS: Albuterol-Ipratrop 3 mg / 0.5 (3 ml) UD INH PRN ×2 (09:01→17:00)
--- NOTE | 2017-08-21 11:04 | CP.PCM.PN ---
Subjective - Date & Time of Evaluation Date of Evaluation: 08/21/17 Time of Evaluation: 11:04 - Subjective Subjective: STILL C/O COUGH AND DIFFICULTY WITH SPUTUM EXPECTORATION Objective - Vital Signs/Intake and Output Vital Signs (last 24 hours): Temp Pulse Resp BP Pulse Ox 97.6 F 77 34 H 92/54 L 100 08/21/17 07:59 08/21/17 10:00 08/21/17 10:00 08/21/17 10:00 08/21/17 10:00 Intake and Output: 08/21/17 08/21/17 06:59 18:59 Intake Total 400 420 Output Total 600 Balance -200 420 - Medications Medications: Current Medications Albuterol/Ipratropium (Duoneb 3 Mg/0.5 Mg (3 Ml) Ud) 3 ml INH RQ4 PRN PRN Reason: Shortness of Breath Last Admin: 08/21/17 09:01 Dose: 3 ml Albuterol/Ipratropium (Duoneb 3 Mg/0.5 Mg (3 Ml) Ud) 3 ml INH RQ6 [facility] Last Admin: 08/21/17 07:27 Dose: 3 ml Aripiprazole (Abilify) 5 mg PO HS [facility] Last Admin: 08/20/17 21:34 Dose: 5 mg Aspirin (Ecotrin) 81 mg PO DAILY [facility] Last Admin: 08/21/17 08:55 Dose: 81 mg Buspirone HCl (Buspar) 10 mg PO Q12@1000,2200 [facility] Last Admin: 08/20/17 21:35 Dose: 10 mg Calcitriol (Rocaltrol) 0.5 mcg PO BID [facility] Last Admin: 08/21/17 08:58 Dose: 0.5 mcg Clonazepam (Klonopin) 0.5 mg PO DAILY PRN PRN Reason: Anxiety Last Admin: 08/20/17 11:30 Dose: 0.5 mg Dexamethasone (Decadron) 20 mg PO MON [facility] Dextrose (Dextrose 50% Inj) 0 ml IV STAT PRN; Protocol PRN Reason: Hypoglycemia Protocol Dextrose (Glutose 15) 0 gm PO ONCE PRN; Protocol PRN Reason: Hypoglycemia Protocol Divalproex Sodium (Depakote Dr(*Bid*)) 250 mg PO BID [facility] Last Admin: 08/21/17 08:55 Dose: 250 mg Enalapril Maleate (Vasotec) 2.5 mg PO DAILY [facility] Enoxaparin Sodium (Lovenox) 40 mg SC DAILY [facility] PRN Reason: Protocol Last Admin: 08/21/17 08:58 Dose: 40 mg Furosemide (Lasix) 20 mg PO Q48H [facility] Last Admin: 08/20/17 01:42 Dose: 20 mg Glucagon (Glucagen Diagnostic Kit) 0 mg IM STAT PRN; Protocol PRN Reason: Hypoglycemia Protocol Home Med (Riociguat [Adempas]) 2 mg PO TID [facility] Last Admin: 08/21/17 08:58 Dose: 2 mg Hydrocortisone (Cortef) 10 mg PO HS [facility] Last Admin: 08/20/17 21:36 Dose: 10 mg Insulin Detemir (Levemir) 24 units SC HS [facility] Last Admin: 08/20/17 21:37 Dose: 24 units Insulin Human Lispro (Humalog) 10 units SC AC [facility] Last Admin: 08/21/17 08:55 Dose: 10 units Insulin Human Lispro (Humalog) 0 units SC ACHS [facility] Last Admin: 08/21/17 08:56 Dose: Not Given Levothyroxine Sodium (Synthroid) 75 mcg PO DAILY@0630 [facility] Last Admin: 08/21/17 08:59 Dose: 75 mcg Metformin HCl (Glucophage) 500 mg PO BID [facility] Last Admin: 08/21/17 08:55 Dose: 500 mg Metoprolol Tartrate (Lopressor) 25 mg PO Q12 [facility] Last Admin: 08/21/17 08:57 Dose: Not Given Pantoprazole Sodium (Protonix Ec Tab) 40 mg PO DAILY [facility] Last Admin: 08/21/17 08:58 Dose: 40 mg - Labs Labs: 08/21/17 04:16 08/21/17 04:16 - Constitutional Appears: Chronically Ill - Head Exam Head Exam: ATRAUMATIC, NORMAL INSPECTION, NORMOCEPHALIC - Eye Exam Eye Exam: EOMI, Normal appearance, PERRL Pupil Exam: NORMAL ACCOMODATION, PERRL - ENT Exam ENT Exam: Mucous Membranes Moist, Normal Exam - Neck Exam Neck Exam: Full ROM, Normal Inspection. absent: Lymphadenopathy - Respiratory Exam Respiratory Exam: Prolonged Expiratory Phase, Rales, NORMAL BREATHING PATTERN - Cardiovascular Exam Cardiovascular Exam: REGULAR RHYTHM, +S1, +S2. absent: Murmur - GI/Abdominal Exam GI & Abdominal Exam: Soft, Normal Bowel Sounds. absent: Tenderness - Rectal Exam Rectal Exam: NORMAL INSPECTION - Extremities Exam Extremities Exam: Full ROM, Normal Capillary Refill, Normal Inspection. absent : Joint Swelling, Pedal Edema Additional comments: TREMORS - Back Exam Back Exam: NORMAL INSPECTION - Neurological Exam Neurological Exam: Alert, Awake, CN II-XII Intact, Oriented x3 - Psychiatric Exam Psychiatric exam: Normal Affect, Normal Mood - Skin Skin Exam: Dry, Intact, Normal Color, Warm Assessment and Plan - Assessment and Plan (Free Text) Assessment: COPD RHEUMATHOID LUNG MUCUS PLUGGING OF AIRWAYS Plan: ADD MUCOMYST TO RX
[2017-08-21] MEDS: CALCIUM GLUCONATE IV SCH (13:53)
[2017-08-21] MEDS: SODIUM CHLORIDE 0.9% IV SCH (13:53)
--- NOTE | 2017-08-21 14:13 | CP.PCM.PN ---
Objective - Vital Signs/Intake and Output Vital Signs (last 24 hours): Temp Pulse Resp BP Pulse Ox 98 F 81 25 H 153/69 H 100 08/21/17 12:00 08/21/17 12:00 08/21/17 12:00 08/21/17 12:00 08/21/17 12:00 Intake and Output: 08/21/17 08/21/17 06:59 18:59 Intake Total 400 620 Output Total 600 Balance -200 620 - Medications Medications: Current Medications Acetylcysteine (Acetylcysteine 20%) 2 ml INH RBID [facility] Albuterol/Ipratropium (Duoneb 3 Mg/0.5 Mg (3 Ml) Ud) 3 ml INH RQ4 PRN PRN Reason: Shortness of Breath Last Admin: 08/21/17 09:01 Dose: 3 ml Albuterol/Ipratropium (Duoneb 3 Mg/0.5 Mg (3 Ml) Ud) 3 ml INH RQ6 [facility] Last Admin: 08/21/17 13:08 Dose: 3 ml Aripiprazole (Abilify) 5 mg PO HS [facility] Last Admin: 08/20/17 21:34 Dose: 5 mg Aspirin (Ecotrin) 81 mg PO DAILY [facility] Last Admin: 08/21/17 08:55 Dose: 81 mg Buspirone HCl (Buspar) 10 mg PO Q12@1000,2200 [facility] Last Admin: 08/21/17 11:25 Dose: 10 mg Calcitriol (Rocaltrol) 0.5 mcg PO BID [facility] Last Admin: 08/21/17 08:58 Dose: 0.5 mcg Calcium Carbonate (Oscal) 500 mg PO BIDWM [facility] Clonazepam (Klonopin) 0.5 mg PO DAILY PRN PRN Reason: Anxiety Last Admin: 08/20/17 11:30 Dose: 0.5 mg Dexamethasone (Decadron) 20 mg PO MON [facility] Dextrose (Dextrose 50% Inj) 0 ml IV STAT PRN; Protocol PRN Reason: Hypoglycemia Protocol Dextrose (Glutose 15) 0 gm PO ONCE PRN; Protocol PRN Reason: Hypoglycemia Protocol Divalproex Sodium (Depakote Dr(*Bid*)) 250 mg PO BID [facility] Last Admin: 08/21/17 08:55 Dose: 250 mg Enalapril Maleate (Vasotec) 2.5 mg PO DAILY [facility] Enoxaparin Sodium (Lovenox) 40 mg SC DAILY [facility] PRN Reason: Protocol Last Admin: 08/21/17 08:58 Dose: 40 mg Furosemide (Lasix) 20 mg PO Q48H [facility] Last Admin: 08/20/17 01:42 Dose: 20 mg Glucagon (Glucagen Diagnostic Kit) 0 mg IM STAT PRN; Protocol PRN Reason: Hypoglycemia Protocol Home Med (Riociguat [Adempas]) 2 mg PO TID [facility] Last Admin: 08/21/17 12:34 Dose: 2 mg Hydrocortisone (Cortef) 10 mg PO HS [facility] Last Admin: 08/20/17 21:36 Dose: 10 mg Calcium Gluconate 2,000 mg/ (Sodium Chloride) 1,020 mls @ 100 mls/hr IV .[id number] [facility] Stop: 08/22/17 13:01 Last Admin: 08/21/17 13:53 Dose: 100 mls/hr Insulin Detemir (Levemir) 24 units SC HS [facility] Last Admin: 08/20/17 21:37 Dose: 24 units Insulin Human Lispro (Humalog) 10 units SC AC [facility] Last Admin: 08/21/17 11:27 Dose: 10 units Insulin Human Lispro (Humalog) 0 units SC ACHS [facility] Last Admin: 08/21/17 11:27 Dose: Not Given Levothyroxine Sodium (Synthroid) 75 mcg PO DAILY@0630 [facility] Last Admin: 08/21/17 08:59 Dose: 75 mcg Metformin HCl (Glucophage) 500 mg PO BID [facility] Last Admin: 08/21/17 08:55 Dose: 500 mg Metoprolol Tartrate (Lopressor) 25 mg PO Q12 [facility] Last Admin: 08/21/17 08:57 Dose: Not Given Pantoprazole Sodium (Protonix Ec Tab) 40 mg PO DAILY [facility] Last Admin: 08/21/17 08:58 Dose: 40 mg - Labs Labs: 08/21/17 04:16 08/21/17 04:16 Assessment and Plan (1) Hypomagnesemia Status: Acute (2) T wave inversion in EKG Status: Acute (3) Hypocalcemia syndrome Status: Acute (4) Abnormal QT interval present on electrocardiogram Status: Acute (5) Hx of ventricular tachycardia Status: Acute (6) Cor pulmonale (chronic) Status: Acute (7) Syncope and collapse Status: Acute (8) Abnormal involuntary movements Status: Acute (9) Multiple myeloma Status: Chronic (10) Pulmonary hypertension Status: Chronic
--- NOTE | 2017-08-21 15:00 | CP.PCM.CON ---
History of Present Illness - History of Present Illness History of Present Illness: Ms. 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 The patient notes to walking to the kitchen and passing out, when she awoke, she had bitten her lip and had bowel/urine incontinence. Her calcium has been found to be low. Past medical history: type II DM, hypertension, COPD, sleep apnea with pulmonary hypertension, multiple myeloma with lytic bone lesions. Past surgical history: None Family history: Denies hematologic and oncologic problems. Social history: Denies tobacco, alcohol, and illicit drug use. Allergies: Codeine. Review of systems: All remaining ROS including HEENT, cardiovascular, respiratory, gastrointestinal, genitourinary, musculoskeletal, dermatologic, neurologic, and psychiatric are negative unless mentioned in the HPI. Past Patient History - Infectious Disease Hx of Infectious Diseases: None - Tetanus Immunizations Tetanus Immunization: Unknown - Past Medical History & Family History Past Medical History?: Yes - Past Social History Smoking Status: Never Smoked Chewing Tobacco Use: No Cigar Use: No Alcohol: None Drugs: Denies Home Situation {Lives}: With Family - CARDIAC Hx Congestive Heart Failure: Yes Hx Hypercholesterolemia: Yes Hx Hypertension: Yes - PULMONARY Hx Asthma: Yes Hx Chronic Obstructive Pulmonary Disease (COPD): Yes Hx Emphysema: Yes Hx Pneumonia: Yes Hx Pulmonary Embolism: Yes Hx Sleep Apnea: Yes - NEUROLOGICAL Hx Migraine: Yes Hx Parkinson's Disease: Yes - HEENT Hx Deafness: Yes - RENAL Hx Chronic Kidney Disease: No - ENDOCRINE/METABOLIC Hx Hypothyroidism: Yes - HEMATOLOGICAL/ONCOLOGICAL Hx Anemia: Yes - INTEGUMENTARY Hx Dermatological Problems: No - MUSCULOSKELETAL/RHEUMATOLOGICAL Hx Arthritis: Yes Hx Fractures: Yes Hx Rheumatoid Arthritis: Yes - GASTROINTESTINAL Hx Gastrointestinal Disorders: No - GENITOURINARY/GYNECOLOGICAL Hx Genitourinary Disorders: Yes - PSYCHIATRIC Hx Anxiety: Yes Hx Depression: Yes - SURGICAL HISTORY Hx Cholecystectomy: Yes Hx Tonsillectomy: Yes - ANESTHESIA Hx Anesthesia: Yes Hx Anesthesia Reactions: Yes (Resp. Distress) Meds Allergies/Adverse Reactions: Allergies Allergy/AdvReac Type Severity Reaction Status Date / Time codeine AdvReac syncope, Verified 08/19/17 17:50 diaphoresis - Medications Medications: Current Medications Acetylcysteine (Acetylcysteine 20%) 2 ml INH RBID [facility] Albuterol/Ipratropium (Duoneb 3 Mg/0.5 Mg (3 Ml) Ud) 3 ml INH RQ4 PRN PRN Reason: Shortness of Breath Last Admin: 08/21/17 09:01 Dose: 3 ml Albuterol/Ipratropium (Duoneb 3 Mg/0.5 Mg (3 Ml) Ud) 3 ml INH RQ6 [facility] Last Admin: 08/21/17 13:08 Dose: 3 ml Aripiprazole (Abilify) 5 mg PO HS [facility] Last Admin: 08/20/17 21:34 Dose: 5 mg Aspirin (Ecotrin) 81 mg PO DAILY [facility] Last Admin: 08/21/17 08:55 Dose: 81 mg Buspirone HCl (Buspar) 10 mg PO Q12@1000,2200 [facility] Last Admin: 08/21/17 11:25 Dose: 10 mg Calcitriol (Rocaltrol) 0.5 mcg PO BID [facility] Last Admin: 08/21/17 08:58 Dose: 0.5 mcg Calcium Carbonate (Oscal) 500 mg PO BIDWM [facility] Clonazepam (Klonopin) 0.5 mg PO DAILY PRN PRN Reason: Anxiety Last Admin: 08/20/17 11:30 Dose: 0.5 mg Dexamethasone (Decadron) 20 mg PO MON [facility] Dextrose (Dextrose 50% Inj) 0 ml IV STAT PRN; Protocol PRN Reason: Hypoglycemia Protocol Dextrose (Glutose 15) 0 gm PO ONCE PRN; Protocol PRN Reason: Hypoglycemia Protocol Divalproex Sodium (Depakote Dr(*Bid*)) 250 mg PO BID [facility] Last Admin: 08/21/17 08:55 Dose: 250 mg Enalapril Maleate (Vasotec) 2.5 mg PO DAILY [facility] Enoxaparin Sodium (Lovenox) 40 mg SC DAILY [facility] PRN Reason: Protocol Last Admin: 08/21/17 08:58 Dose: 40 mg Furosemide (Lasix) 20 mg PO Q48H [facility] Last Admin: 08/20/17 01:42 Dose: 20 mg Glucagon (Glucagen Diagnostic Kit) 0 mg IM STAT PRN; Protocol PRN Reason: Hypoglycemia Protocol Home Med (Riociguat [Adempas]) 2 mg PO TID [facility] Last Admin: 08/21/17 12:34 Dose: 2 mg Hydrocortisone (Cortef) 10 mg PO HS [facility] Last Admin: 08/20/17 21:36 Dose: 10 mg Calcium Gluconate 2,000 mg/ (Sodium Chloride) 1,020 mls @ 100 mls/hr IV .[id number] [facility] Stop: 08/22/17 13:01 Last Admin: 08/21/17 13:53 Dose: 100 mls/hr Insulin Detemir (Levemir) 30 units SC HS [facility] Insulin Human Lispro (Humalog) 0 units SC ACHS [facility] Last Admin: 08/21/17 11:27 Dose: Not Given Insulin Human Lispro (Humalog) 12 units SC AC [facility] Levothyroxine Sodium (Synthroid) 25 mcg PO DAILY@0630 [facility] Metformin HCl (Glucophage) 500 mg PO BID [facility] Last Admin: 08/21/17 08:55 Dose: 500 mg Metoprolol Tartrate (Lopressor) 25 mg PO Q12 [facility] Last Admin: 08/21/17 08:57 Dose: Not Given Pantoprazole Sodium (Protonix Ec Tab) 40 mg PO DAILY [facility] Last Admin: 08/21/17 08:58 Dose: 40 mg Physical Exam - Head Exam Head Exam: ATRAUMATIC - Eye Exam Eye Exam: Normal appearance - ENT Exam ENT Exam: Mucous Membranes Dry - Respiratory Exam Respiratory Exam: NORMAL BREATHING PATTERN - Cardiovascular Exam Cardiovascular Exam: +S1, +S2 - GI/Abdominal Exam GI & Abdominal Exam: Normal Bowel Sounds - Extremities Exam Extremities exam: Positive for: pedal edema - Neurological Exam Neurological exam: Oriented x3 - Psychiatric Exam Psychiatric exam: Normal Affect, Normal Mood - Skin Skin Exam: Warm Results - Vital Signs Recent Vital Signs: Last Vital Signs Temp 98 F 08/21/17 12:00 Pulse 81 08/21/17 12:00 Resp 25 H 08/21/17 12:00 BP 153/69 H 08/21/17 12:00 Pulse Ox 100 08/21/17 12:00 - Labs Result Diagrams: 08/21/17 04:16 08/21/17 04:16 Labs: Laboratory Results - last 24 hr 08/20/17 08/20/17 08/20/17 04:35 06:03 10:41 WBC RBC Hgb Hct MCV MCH MCHC RDW Plt Count MPV Neut % (Auto) Lymph % (Auto) [place] % (Auto) Eos % (Auto) Baso % (Auto) Neut # (Auto) Lymph # (Auto) [place] # (Auto) Eos # (Auto) Baso # (Auto) Total Counted Neutrophils % (Manual) Band Neutrophils % Lymphocytes % (Manual) Reactive Lymphs % Monocytes % (Manual) Eosinophils % (Manual) Basophils % (Manual) Metamyelocytes % Myelocytes % Promyelocytes % Blast Cells % Plasma Cell % (Manual) Nucleated RBC % Hypersegmented Polys Smudge Cells Toxic Granulation Dohle Bodies Naeem Rods Platelet Estimate Plt Clumps, EDTA Large Platelets Giant Platelets RBC Morphology Polychromasia Hypochromasia (manual) Poikilocytosis (manual Basophilic Stippling Anisocytosis (manual) Microcytosis (manual) Macrocytosis (manual) Spherocytes Sickle Cells Target Cells Tear Drop Cells Ovalocytes Stomatocytes Helmet Cells [place] Bodies [place] Cells Acanthocytes (Spur) Rouleaux Schistocytes Sodium Potassium Chloride Carbon Dioxide Anion Gap BUN Creatinine Est GFR ( Amer) Est GFR (Non-Af Amer) POC Glucose (mg/dL) Random Glucose Calcium Ionized Calcium 2.9 L Phosphorus Magnesium Total Bilirubin AST ALT Alkaline Phosphatase Troponin I Total Protein Albumin Globulin Albumin/Globulin Ratio Procalcitonin 0.28 Thyroxine (T4) TSH 3rd Generation Prolactin < 1.4 L RPR 08/20/17 08/20/17 08/20/17 10:57 15:47 17:00 WBC RBC Hgb Hct MCV MCH MCHC RDW Plt Count MPV Neut % (Auto) Lymph % (Auto) [place] % (Auto) Eos % (Auto) Baso % (Auto) Neut # (Auto) Lymph # (Auto) [place] # (Auto) Eos # (Auto) Baso # (Auto) Total Counted Neutrophils % (Manual) Band Neutrophils % Lymphocytes % (Manual) Reactive Lymphs % Monocytes % (Manual) Eosinophils % (Manual) Basophils % (Manual) Metamyelocytes % Myelocytes % Promyelocytes % Blast Cells % Plasma Cell % (Manual) Nucleated RBC % Hypersegmented Polys Smudge Cells Toxic Granulation Dohle Bodies Naeem Rods Platelet Estimate Plt Clumps, EDTA Large Platelets Giant Platelets RBC Morphology Polychromasia Hypochromasia (manual) Poikilocytosis (manual Basophilic Stippling Anisocytosis (manual) Microcytosis (manual) Macrocytosis (manual) Spherocytes Sickle Cells Target Cells Tear Drop Cells Ovalocytes Stomatocytes Helmet Cells [place] Bodies [place] Cells Acanthocytes (Spur) Rouleaux Schistocytes Sodium Potassium Chloride Carbon Dioxide Anion Gap BUN Creatinine Est GFR ( Amer) Est GFR (Non-Af Amer) POC Glucose (mg/dL) 287 H Random Glucose Calcium 5.1 L* Ionized Calcium Phosphorus Magnesium Total Bilirubin AST ALT Alkaline Phosphatase Troponin I Total Protein Albumin Globulin Albumin/Globulin Ratio Procalcitonin Thyroxine (T4) TSH 3rd Generation Prolactin RPR Nonreactive 08/20/17 08/20/17 08/21/17 17:00 21:18 04:16 WBC 12.0 H RBC 2.99 L Hgb 8.6 L Hct 27.0 L MCV 90.4 MCH 28.7 MCHC 31.7 L RDW 17.9 H Plt Count 181 MPV 11.1 Neut % (Auto) 92.8 H Lymph % (Auto) 1.9 L [place] % (Auto) 5.1 Eos % (Auto) 0.0 Baso % (Auto) 0.2 Neut # (Auto) 11.1 H Lymph # (Auto) 0.2 L [place] # (Auto) 0.6 Eos # (Auto) 0.0 Baso # (Auto) 0.0 Total Counted Cancelled Neutrophils % (Manual) Cancelled Band Neutrophils % Cancelled Lymphocytes % (Manual) Cancelled Reactive Lymphs % Cancelled Monocytes % (Manual) Cancelled Eosinophils % (Manual) Cancelled Basophils % (Manual) Cancelled Metamyelocytes % Cancelled Myelocytes % Cancelled Promyelocytes % Cancelled Blast Cells % Cancelled Plasma Cell % (Manual) Cancelled Nucleated RBC % Cancelled Hypersegmented Polys Cancelled Smudge Cells Cancelled Toxic Granulation Cancelled Dohle Bodies Cancelled Naeem Rods Cancelled Platelet Estimate Cancelled Plt Clumps, EDTA Cancelled Large Platelets Cancelled Giant Platelets Cancelled RBC Morphology Cancelled Polychromasia Cancelled Hypochromasia (manual) Cancelled Poikilocytosis (manual Cancelled Basophilic Stippling Cancelled Anisocytosis (manual) Cancelled Microcytosis (manual) Cancelled Macrocytosis (manual) Cancelled Spherocytes Cancelled Sickle Cells Cancelled Target Cells Cancelled Tear Drop Cells Cancelled Ovalocytes Cancelled Stomatocytes Cancelled Helmet Cells Cancelled [place] Bodies Cancelled [place] Cells Cancelled Acanthocytes (Spur) Cancelled Rouleaux Cancelled Schistocytes Cancelled Sodium Potassium Chloride Carbon Dioxide Anion Gap BUN Creatinine Est GFR ( Amer) Est GFR (Non-Af Amer) POC Glucose (mg/dL) 240 H Random Glucose Calcium Ionized Calcium Phosphorus 3.3 Magnesium 1.8 Total Bilirubin AST ALT Alkaline Phosphatase Troponin I Total Protein Albumin Globulin Albumin/Globulin Ratio Procalcitonin Thyroxine (T4) TSH 3rd Generation Prolactin RPR 08/21/17 08/21/17 08/21/17 04:16 05:19 07:01 WBC RBC Hgb Hct MCV MCH MCHC RDW Plt Count MPV Neut % (Auto) Lymph % (Auto) [place] % (Auto) Eos % (Auto) Baso % (Auto) Neut # (Auto) Lymph # (Auto) [place] # (Auto) Eos # (Auto) Baso # (Auto) Total Counted Neutrophils % (Manual) Band Neutrophils % Lymphocytes % (Manual) Reactive Lymphs % Monocytes % (Manual) Eosinophils % (Manual) Basophils % (Manual) Metamyelocytes % Myelocytes % Promyelocytes % Blast Cells % Plasma Cell % (Manual) Nucleated RBC % Hypersegmented Polys Smudge Cells Toxic Granulation Dohle Bodies Naeem Rods Platelet Estimate Plt Clumps, EDTA Large Platelets Giant Platelets RBC Morphology Polychromasia Hypochromasia (manual) Poikilocytosis (manual Basophilic Stippling Anisocytosis (manual) Microcytosis (manual) Macrocytosis (manual) Spherocytes Sickle Cells Target Cells Tear Drop Cells Ovalocytes Stomatocytes Helmet Cells [place] Bodies [place] Cells Acanthocytes (Spur) Rouleaux Schistocytes Sodium 132 Potassium 4.7 Chloride 100 Carbon Dioxide 18 L Anion Gap 19 BUN 39 H Creatinine 1.5 H Est GFR ( Amer) 42 Est GFR (Non-Af Amer) 34 POC Glucose (mg/dL) 242 H Random Glucose 249 H Calcium 5.3 L* Ionized Calcium Phosphorus 3.9 Magnesium 2.5 H Total Bilirubin 0.5 AST 27 ALT 25 Alkaline Phosphatase 86 Troponin I 0.0400 Total Protein 6.0 L Albumin 3.0 L Globulin 3.0 Albumin/Globulin Ratio 1.0 Procalcitonin Thyroxine (T4) 3.22 L TSH 3rd Generation 0.21 L Prolactin RPR 08/21/17 11:14 WBC RBC Hgb Hct MCV MCH MCHC RDW Plt Count MPV Neut % (Auto) Lymph % (Auto) [place] % (Auto) Eos % (Auto) Baso % (Auto) Neut # (Auto) Lymph # (Auto) [place] # (Auto) Eos # (Auto) Baso # (Auto) Total Counted Neutrophils % (Manual) Band Neutrophils % Lymphocytes % (Manual) Reactive Lymphs % Monocytes % (Manual) Eosinophils % (Manual) Basophils % (Manual) Metamyelocytes % Myelocytes % Promyelocytes % Blast Cells % Plasma Cell % (Manual) Nucleated RBC % Hypersegmented Polys Smudge Cells Toxic Granulation Dohle Bodies Naeem Rods Platelet Estimate Plt Clumps, EDTA Large Platelets Giant Platelets RBC Morphology Polychromasia Hypochromasia (manual) Poikilocytosis (manual Basophilic Stippling Anisocytosis (manual) Microcytosis (manual) Macrocytosis (manual) Spherocytes Sickle Cells Target Cells Tear Drop Cells Ovalocytes Stomatocytes Helmet Cells [place] Bodies [place] Cells Acanthocytes (Spur) Rouleaux Schistocytes Sodium Potassium Chloride Carbon Dioxide Anion Gap BUN Creatinine Est GFR ( Amer) Est GFR (Non-Af Amer) POC Glucose (mg/dL) 205 H Random Glucose Calcium Ionized Calcium Phosphorus Magnesium Total Bilirubin AST ALT Alkaline Phosphatase Troponin I Total Protein Albumin Globulin Albumin/Globulin Ratio Procalcitonin Thyroxine (T4) TSH 3rd Generation Prolactin RPR Assessment & Plan (1) Hypocalcemia syndrome Assessment and Plan: ? related to lenalidomide or denosumab agree with supplementation Status: Acute Priority: Medium (2) Anemia Assessment and Plan: secondary to multiple myeloma, chronic disease, and myeloma treatment transfusion support PRN Status: Resolved (3) Multiple myeloma Assessment and Plan: complicated by acetabular fracture on systemic therapy may need to dose reduce lenalidomide due to hypocalcemia outpatient f/u Thank you for this interesting consult. Status: Chronic
--- NOTE | 2017-08-21 15:00 | CP.PCM.PN ---
Subjective - Date & Time of Evaluation Date of Evaluation: 08/21/17 Time of Evaluation: 15:00 - Subjective Subjective: Feeling better. Objective - Vital Signs/Intake and Output Vital Signs (last 24 hours): Temp Pulse Resp BP Pulse Ox 98 F 81 25 H 153/69 H 100 08/21/17 12:00 08/21/17 12:00 08/21/17 12:00 08/21/17 12:00 08/21/17 12:00 Intake and Output: 08/21/17 08/21/17 06:59 18:59 Intake Total 400 620 Output Total 600 Balance -200 620 - Medications Medications: Current Medications Acetylcysteine (Acetylcysteine 20%) 2 ml INH RBID MARISABEL Albuterol/Ipratropium (Duoneb 3 Mg/0.5 Mg (3 Ml) Ud) 3 ml INH RQ4 PRN PRN Reason: Shortness of Breath Last Admin: 08/21/17 09:01 Dose: 3 ml Albuterol/Ipratropium (Duoneb 3 Mg/0.5 Mg (3 Ml) Ud) 3 ml INH RQ6 [facility]IS[facility]EL Last Admin: 08/21/17 13:08 Dose: 3 ml Aripiprazole (Abilify) 5 mg PO HS [facility] Last Admin: 08/20/17 21:34 Dose: 5 mg Aspirin (Ecotrin) 81 mg PO DAILY [facility] Last Admin: 08/21/17 08:55 Dose: 81 mg Buspirone HCl (Buspar) 10 mg PO Q12@1000,2200 [facility] Last Admin: 08/21/17 11:25 Dose: 10 mg Calcitriol (Rocaltrol) 0.5 mcg PO BID [facility] Last Admin: 08/21/17 08:58 Dose: 0.5 mcg Calcium Carbonate (Oscal) 500 mg PO BIDWM [facility] Clonazepam (Klonopin) 0.5 mg PO DAILY PRN PRN Reason: Anxiety Last Admin: 08/20/17 11:30 Dose: 0.5 mg Dexamethasone (Decadron) 20 mg PO MON [facility] Dextrose (Dextrose 50% Inj) 0 ml IV STAT PRN; Protocol PRN Reason: Hypoglycemia Protocol Dextrose (Glutose 15) 0 gm PO ONCE PRN; Protocol PRN Reason: Hypoglycemia Protocol Divalproex Sodium (Depakote Dr(*Bid*)) 250 mg PO BID [facility] Last Admin: 08/21/17 08:55 Dose: 250 mg Enalapril Maleate (Vasotec) 2.5 mg PO DAILY [facility] Enoxaparin Sodium (Lovenox) 40 mg SC DAILY [facility] PRN Reason: Protocol Last Admin: 08/21/17 08:58 Dose: 40 mg Furosemide (Lasix) 20 mg PO Q48H [facility] Last Admin: 08/20/17 01:42 Dose: 20 mg Glucagon (Glucagen Diagnostic Kit) 0 mg IM STAT PRN; Protocol PRN Reason: Hypoglycemia Protocol Home Med (Riociguat [Adempas]) 2 mg PO TID [facility] Last Admin: 08/21/17 12:34 Dose: 2 mg Hydrocortisone (Cortef) 10 mg PO HS [facility] Last Admin: 08/20/17 21:36 Dose: 10 mg Calcium Gluconate 2,000 mg/ (Sodium Chloride) 1,020 mls @ 100 mls/hr IV .[id number] [facility] Stop: 08/22/17 13:01 Last Admin: 08/21/17 13:53 Dose: 100 mls/hr Insulin Detemir (Levemir) 30 units SC HS [facility] Insulin Human Lispro (Humalog) 0 units SC ACHS [facility] Last Admin: 08/21/17 11:27 Dose: Not Given Insulin Human Lispro (Humalog) 12 units SC AC [facility] Levothyroxine Sodium (Synthroid) 25 mcg PO DAILY@0630 [facility] Metformin HCl (Glucophage) 500 mg PO BID [facility] Last Admin: 08/21/17 08:55 Dose: 500 mg Metoprolol Tartrate (Lopressor) 25 mg PO Q12 [facility] Last Admin: 08/21/17 08:57 Dose: Not Given Pantoprazole Sodium (Protonix Ec Tab) 40 mg PO DAILY [facility] Last Admin: 08/21/17 08:58 Dose: 40 mg - Labs Labs: 08/21/17 04:16 08/21/17 04:16 - Head Exam Head Exam: ATRAUMATIC - Eye Exam Eye Exam: Normal appearance - ENT Exam ENT Exam: Mucous Membranes Dry - Respiratory Exam Respiratory Exam: NORMAL BREATHING PATTERN - Cardiovascular Exam Cardiovascular Exam: +S1, +S2 - GI/Abdominal Exam GI & Abdominal Exam: Normal Bowel Sounds Assessment and Plan (1) Hypocalcemia syndrome Assessment & Plan: ? related to lenalidomide, denosumab agree with calcium supplementation Status: Acute (2) Anemia Assessment & Plan: multifactorial multiple myeloma, chronic disease, and myeloma treatment Status: Resolved (3) Multiple myeloma Assessment & Plan: outpatient treatment Status: Chronic
--- NOTE | 2017-08-21 18:29 | CP.PCM.PN ---
Subjective - Date & Time of Evaluation Date of Evaluation: 08/21/17 Time of Evaluation: 08:00 - Subjective Subjective: 71F seen and examined at bedside with attending. Patient reports feeling a little better, denies SOB, chest pain/palpitations/ abdominal pain. Objective - Vital Signs/Intake and Output Vital Signs (last 24 hours): Temp Pulse Resp BP Pulse Ox 36.8 C 94 H 22 117/80 100 08/21/17 16:00 08/21/17 17:37 08/21/17 17:37 08/21/17 16:00 08/21/17 17:37 Intake and Output: 08/21/17 08/21/17 06:59 18:59 Intake Total 400 1240 Output Total 600 1000 Balance -200 240 - Medications Medications: Current Medications Acetylcysteine (Acetylcysteine 20%) 2 ml INH RBID MARISABEL Albuterol/Ipratropium (Duoneb 3 Mg/0.5 Mg (3 Ml) Ud) 3 ml INH RQ4 PRN PRN Reason: Shortness of Breath Last Admin: 08/21/17 17:00 Dose: 3 ml Albuterol/Ipratropium (Duoneb 3 Mg/0.5 Mg (3 Ml) Ud) 3 ml INH RQ6 [facility] Last Admin: 08/21/17 13:08 Dose: 3 ml Aripiprazole (Abilify) 5 mg PO HS REPLACED BY [facility] Last Admin: 08/20/17 21:34 Dose: 5 mg Aspirin (Ecotrin) 81 mg PO DAILY [facility] Last Admin: 08/21/17 08:55 Dose: 81 mg Buspirone HCl (Buspar) 10 mg PO Q12@1000,2200 [facility] Last Admin: 08/21/17 11:25 Dose: 10 mg Calcitriol (Rocaltrol) 0.5 mcg PO BID [facility] Last Admin: 08/21/17 16:32 Dose: 0.5 mcg Calcium Carbonate (Oscal) 500 mg PO BIDWM REPLACED BY [facility] Last Admin: 08/21/17 16:31 Dose: 500 mg Clonazepam (Klonopin) 0.5 mg PO DAILY PRN PRN Reason: Anxiety Last Admin: 08/20/17 11:30 Dose: 0.5 mg Dexamethasone (Decadron) 20 mg PO MON REPLACED BY [facility] Dextrose (Dextrose 50% Inj) 0 ml IV STAT PRN; Protocol PRN Reason: Hypoglycemia Protocol Dextrose (Glutose 15) 0 gm PO ONCE PRN; Protocol PRN Reason: Hypoglycemia Protocol Divalproex Sodium (Depakote Dr(*Bid*)) 250 mg PO BID [facility] Last Admin: 08/21/17 16:30 Dose: 250 mg Enalapril Maleate (Vasotec) 2.5 mg PO DAILY [facility]PL[facility] BY [facility] Furosemide (Lasix) 20 mg PO Q48H REPLACED BY [facility] Last Admin: 08/20/17 01:42 Dose: 20 mg Glucagon (Glucagen Diagnostic Kit) 0 mg IM STAT PRN; Protocol PRN Reason: Hypoglycemia Protocol Heparin Sodium (Porcine) (Heparin) 5,000 units SC Q8 REPLACED BY [facility] PRN Reason: Protocol Home Med (Riociguat [Adempas]) 2 mg PO TID REPL[facility]ED BY [facility] Last Admin: 08/21/17 16:31 Dose: 2 mg Hydrocortisone (Cortef) 10 mg PO HS [facility]PL[facility] BY [facility] Last Admin: 08/20/17 21:36 Dose: 10 mg Calcium Gluconate 2,000 mg/ (Sodium Chloride) 1,020 mls @ 100 mls/hr IV .[id number] REPLACED BY [facility] Stop: 08/22/17 13:01 Last Admin: 08/21/17 13:53 Dose: 100 mls/hr Insulin Detemir (Levemir) 30 units SC HS REPLACED BY [facility] Insulin Human Lispro (Humalog) 0 units SC ACHS REPLACED BY [facility] Last Admin: 08/21/17 15:56 Dose: Not Given Insulin Human Lispro (Humalog) 12 units SC AC REPLACED BY [facility] Last Admin: 08/21/17 17:36 Dose: Not Given Levothyroxine Sodium (Synthroid) 25 mcg PO DAILY@0630 REPLACED BY [facility] Metformin HCl (Glucophage) 500 mg PO BID [facility]PL[facility] BY [facility] Last Admin: 08/21/17 16:30 Dose: 500 mg Metoprolol Tartrate (Lopressor) 25 mg PO Q12 REPLAC[facility] BY [facility] Last Admin: 08/21/17 08:57 Dose: Not Given Pantoprazole Sodium (Protonix Ec Tab) 40 mg PO DAILY [facility] BY [facility] Last Admin: 08/21/17 08:58 Dose: 40 mg - Labs Labs: 08/21/17 04:16 08/21/17 04:16 - Constitutional Appears: Non-toxic - Head Exam Additional comments: ecchyomosis to RIGHT lower lip from syncopal fall. - Eye Exam Eye Exam: EOMI Pupil Exam: PERRL - ENT Exam ENT Exam: Normal Exam - Neck Exam Neck Exam: Full ROM - Respiratory Exam Respiratory Exam: Clear to Ausculation Bilateral, NORMAL BREATHING PATTERN - Cardiovascular Exam Cardiovascular Exam: REGULAR RHYTHM - GI/Abdominal Exam GI & Abdominal Exam: Soft, Normal Bowel Sounds - Extremities Exam Extremities Exam: Normal Capillary Refill - Neurological Exam Neurological Exam: Alert, Awake (However, patient with gross flapping of extremities which is not baseline.), Oriented x3 - Psychiatric Exam Psychiatric exam: Normal Affect, Normal Mood Assessment and Plan - Assessment and Plan (Free Text) Assessment: 71F p/w with acute symptomatic hypocalcemia and syncopal episode. Calcium remains symptomatic at 5.3 and EKG with persistent QT prolongation. Otherwise, hemodynamically stable. - Neurology Consult: c/w Depakote, we are titrating Abilify off and plan to transition to potential Seroquel - Cardiology Consult: Daily EKGs, Mg replaced to avoid Torsades, EP Consult placed with Dr Burnett - Endocrinology Consult: IVF maintenance 48hrs, trend Calcium, CaCO3 500mg BID, Calcitriol 0.5mg BID, TSH - Pulmonary Consult: Mucomyst, f/u recs - Heme/Onc Consult: chronic MM, ?medication cause - Diet - DVT Prophylaxis
--- NOTE | 2017-08-21 19:12 | PN ---
DATE: 08/21/2017 ENDO FOLLOWUP NOTE LOCATION: In ICU room 431. SUBJECTIVE: This is a 71-year-old female with a multiplicity of medical conditions, presenting here with a recent syncopal episode and was found to have also marked hypocalcemia with associated neuromuscular agitation and paresthesias and is now being followed closely for metabolic management. She was actually referred for evaluation of adrenal insufficiency as she has a significant history of multiple myeloma and has been on long-term steroid replacement therapy to the present time. Her repeat chemistries today showed a BUN of 39, sodium 132, potassium 4.7, chloride 100, CO2 of 18, glucose 249 and creatinine 1.5. Her calcium level today is 5.3 with an albumin level of 3 and a corrected calcium of 6.3 mg/dL. Her magnesium level is 2.5 with a phosphorus of 3.9. Her parathyroid hormone level is still pending at this time. The repeat thyroid study showed a T4 of 3.22 with a TSH of 0.21 as noted. Her glycemic profile is also fluctuating, but improved and the glucose values have ranged from 205 to 242 mg/dL. 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 She also has significant symptomatic hypocalcemia and the possibility of whether we are dealing with a parathyroid versus nonparathyroid etiology is yet to be ascertained at this time. In the presence of hypocalcemia, it is physiologic to have a compensatory elevated parathyroid hormone level and it could be more significant if we see a suppressed parathyroid hormone value indicative of the so-called pseudohypoparathyroidism, which is quite real with her age at this time. The most likely contributing factor would be a nutritional factor with concomitant by hypovitaminosis D. Her hemoglobin A1c I think is still pending at this time. Moreover, she also is clinically euthyroid, but biochemically has evidence of the so-called acute sick euthyroid syndrome superimposed on the persistent thyroid-stimulating hormone suppression also from the intercurrent steroid therapy at this time and she also concurrently is on levothyroxine replacement therapy with possible underlying autoimmune thyroiditis. PLAN OF MANAGEMENT: We will modify her levothyroxine, especially with advanced age of the patient, to a more prudent dose of 25 mcg daily starting on Wednesday morning as ordered. We will continue the hydrocortisone given as ordered pending the availability of the serum cortisol level sent out today. We will continue the calcium and vitamin D replacement therapy and we will add calcium gluconate in normal saline to run continuously at 100 mL per hour for at least the next 24 to 48 hours and observe her clinical and biochemical response thereof. We will also add calcium carbonate given as 1 gm b.i.d. before meals and continue the calcitriol given as 0.5 mcg b.i.d. as ordered. We will obtain serial chemistries and supplement accordingly needed. We will follow this. Irene Mann MD
[2017-08-21] MEDS: Acetylcysteine 20% Inhal Soln (4ml) INH SCH (19:34)
[2017-08-21] MEDS: Insulin Detemir 100 Units/ml Inj SC SCH (21:12)
[2017-08-22] MEDS: SODIUM CHLORIDE 0.9% IV SCH (01:06)
[2017-08-22] MEDS: CALCIUM GLUCONATE IV SCH (01:06)
[2017-08-22] MEDS: Albuterol-Ipratrop 3 mg / 0.5 (3 ml) UD INH SCH ×4 (01:27→19:16)
[2017-08-22 06:11] LABS: BASO % 0.3 % (0.0-2.0); EOS # 0.1 K/uL (0.0-0.7); EOS % 1.4 % (0.0-4.0); HEMOGLOBIN 8.4 g/dL (12.0-16.0); LYMPH # 0.3 K/uL (1.0-4.3); LYMPH % 6.4 % (20.0-40.0); MEAN CORPUSCULAR HEMOGLOBIN 29.6 pg (27.0-31.0); MEAN CORPUSCULAR HGB CONC 32.9 g/dL (33.0-37.0); MEAN PLATELET VOLUME 10.2 fl (7.2-11.7); MONO # 0.6 K/uL (0.0-0.8); MONO % 10.8 % (0.0-10.0); NEUT # 4.4 K/uL (1.8-7.0); NEUT % 81.1 % (50.0-75.0); NRBC % 0.2 % (0.0-0.0); RBC 2.84 Mil/uL (3.80-5.20); RED CELL DISTRIBUTION WIDTH 17.6 % (11.5-14.5); WHITE BLOOD COUNT 5.5 K/uL (4.8-10.8)
[2017-08-22 06:26] LABS: ALBUMIN 2.8 g/dL (3.5-5.0); ALT/SGPT 27 U/L (9-52); AST/SGOT 24 U/L (14-36); BLOOD UREA NITROGEN 33 mg/dl (7-17); CALCIUM 7.3 mg/dL (8.4-10.2); GFR AFRICAN-AMERICAN > 60; GFR NON-AFRICAN AMERICAN 55
[2017-08-22] MEDS: Insulin Lispro (humaLOG) 100 Units/ml Inj SC SCH ×7 (06:45→21:02)
--- NOTE | 2017-08-22 07:24 | CP.CCUPN ---
CCU Subjective - Physician Review Events Since Last Encounter (Free Text): Patient awake, no distress, on O2 supplement by nasal canula, no vomiting, no fever, no chest pain, no cough,events reviewed CCU Objective - Vital Signs / Intake & Output Vital Signs (Last 4 hours): Vital Signs Pulse Resp BP Pulse Ox 08/22/17 06:00 76 20 91/46 L 100 08/22/17 04:00 68 10 L 122/53 L 100 Intake and Output (Last 8hrs): Intake & Output 08/21/17 08/22/17 08/22/17 22:59 06:59 14:59 Intake Total 820 800 Output Total 1000 2500 Balance -180 -1700 Intake: IV 700 800 Oral 120 Output: Urine 1000 2500 Urethral ([place]) 1000 2500 Other: # Bowel Movements 2 - Physical Exam Head: Positive for: Atraumatic, Normocephalic Pupils: Positive for: PERRL Conjunctiva: Positive for: Normal Mouth: Positive for: Dry Nose (External): Positive for: Atraumatic Neck: Positive for: Normal Range of Motion Respiratory/Chest: Positive for: Clear to Auscultation Cardiovascular: Positive for: Regular Rate and Rhythm Abdomen: Positive for: Normal Bowel Sounds Upper Extremity: Positive for: Normal Inspection Lower Extremity: Positive for: Normal Inspection Neurological: Positive for: GCS=15, Speech Normal Skin: Positive for: Dry Psychiatric: Positive for: Alert - Medications Active Medications: Active Medications Generic Name Dose Route Start Last Admin Trade Name Freq PRN Reason Stop Dose Admin Acetylcysteine 2 ml 08/21/17 20:00 08/21/17 19:34 Acetylcysteine 20% INH 2 ml RBID MARISABEL Administration Albuterol/Ipratropium 3 ml 08/20/17 05:01 08/21/17 17:00 Duoneb 3 Mg/0.5 Mg (3 Ml) Ud INH 3 ml RQ4 PRN Administration Shortness of Breath Albuterol/Ipratropium 3 ml 08/20/17 14:00 08/22/17 01:27 Duoneb 3 Mg/0.5 Mg (3 Ml) Ud INH 3 ml RQ6 MARISABEL Administration Aripiprazole 5 mg 08/20/17 22:00 08/21/17 21:05 Abilify PO 5 mg HS MARIS[facility]EL Administration Aspirin 81 mg 08/20/17 09:00 08/21/17 08:55 Ecotrin PO 81 mg DAILY [facility]EL Administration Buspirone HCl 10 mg 08/20/17 22:00 08/21/17 21:05 Buspar PO 10 mg Q12@1000,2200 [facility] Administration Calcitriol 0.5 mcg 08/20/17 17:00 08/21/17 16:32 Rocaltrol PO 0.5 mcg BID [facility]EL Administration Calcium Carbonate 500 mg 08/21/17 17:00 08/21/17 16:31 Oscal PO 500 mg BIDWM [facility]EL Administration Clonazepam 0.5 mg 08/19/17 23:45 08/20/17 11:30 Klonopin PO 0.5 mg DAILY PRN Administration Anxiety Dexamethasone 20 mg 08/23/17 09:00 Decadron PO MON [facility] Dextrose 0 ml 08/20/17 00:06 Dextrose 50% Inj IV STAT PRN Hypoglycemia Protocol Protocol Dextrose 0 gm 08/20/17 00:06 Glutose 15 PO ONCE PRN Hypoglycemia Protocol Protocol Divalproex Sodium 250 mg 08/20/17 17:00 08/21/17 16:[address](*Bid*) PO 250 mg BID [facility] Administration Enalapril Maleate 2.5 mg 08/20/17 09:00 Vasotec PO DAILY [facility] Furosemide 20 mg 08/19/17 23:45 08/21/17 23:15 Lasix PO 20 mg Q48H [facility] Administration Glucagon 0 mg 08/20/17 00:06 Glucagen Diagnostic Kit IM STAT PRN Hypoglycemia Protocol Protocol Heparin Sodium (Porcine) 5,000 units 08/22/17 01:00 08/22/17 01:45 Heparin SC 5,000 units Q8 [facility] Administration Protocol Home Med 2 mg 08/20/17 09:00 08/21/17 16:31 Riociguat [Adempas] PO 2 mg TID [facility] Administration Hydrocortisone 10 mg 08/19/17 23:45 08/21/17 23:17 Cortef PO 10 mg HS [facility] Administration Calcium Gluconate 2,000 mg/ 1,020 mls @ 100 mls/hr 08/21/17 13:15 08/22/17 01 :06 Sodium Chloride IV 08/22/17 13:01 100 mls/hr .[id number] [facility] Administration Insulin Detemir 30 units 08/21/17 22:00 08/21/17 21:12 Levemir SC 30 units HS [facility] Administration Insulin Human Lispro 0 units 08/20/17 22:00 08/22/17 06:45 Humalog SC Not Given ACHS [facility] Insulin Human Lispro 12 units 08/21/17 16:30 08/22/17 06:45 Humalog SC Not Given AC [facility] Levothyroxine Sodium 25 mcg 08/23/17 06:30 Synthroid PO DAILY@0630 [facility] Metformin HCl 500 mg 08/20/17 09:00 08/21/17 16:30 Glucophage PO 500 mg BID [facility] Administration Metoprolol Tartrate 25 mg 08/20/17 21:00 08/21/17 21:05 Lopressor PO Not Given Q12 [facility] Pantoprazole Sodium 40 mg 08/20/17 09:00 08/21/17 08:58 Protonix Ec Tab PO 40 mg DAILY [facility] Administration - Patient Studies Lab Studies: Microbiology Studies 08/20/17 07:05 MRSA Culture (Admit) - Final Naris MRSA NOT DETECTED 08/19/17 19:20 Blood Culture - Preliminary Blood-Venous NO GROWTH AFTER 48 HOURS 08/19/17 19:05 Blood Culture - Preliminary Blood-Venous NO GROWTH AFTER 48 HOURS 08/20/17 07:05 Urine Culture - Final Urine,Clean Catch No Growth (<1,000 CFU/ML) Lab Studies 08/22/17 08/22/17 08/22/17 Range/Units 06:27 05:30 05:30 WBC 5.5 D (4.8-10.8) K/uL RBC 2.84 L (3.80-5.20) Mil/uL Hgb 8.4 L (12.0-16.0) g/dL Hct 25.6 L (34.0-47.0) % MCV 90.0 (81.0-99.0) fl MCH 29.6 (27.0-31.0) pg MCHC 32.9 L (33.0-37.0) g/dL RDW 17.6 H (11.5-14.5) % Plt Count 203 (130-400) K/uL MPV 10.2 (7.2-11.7) fl Neut % (Auto) 81.1 H (50.0-75.0) % Lymph % (Auto) 6.4 L (20.0-40.0) % Walton % (Auto) 10.8 H (0.0-10.0) % Eos % (Auto) 1.4 (0.0-4.0) % Baso % (Auto) 0.3 (0.0-2.0) % Neut # (Auto) 4.4 (1.8-7.0) K/uL Lymph # (Auto) 0.3 L (1.0-4.3) K/uL Walton # (Auto) 0.6 (0.0-0.8) K/uL Eos # (Auto) 0.1 (0.0-0.7) K/uL Baso # (Auto) 0.0 (0.0-0.2) K/uL Sodium 140 (132-148) mmol/l Potassium 5.0 (3.6-5.0) MMOL/L Chloride 105 (98-107) mmol/L Carbon Dioxide 25 (22-30) mmol/L Anion Gap 15 (10-20) BUN 33 H (7-17) mg/dl Creatinine 1.0 (0.7-1.2) mg/dl Est GFR ( Amer) > 60 Est GFR (Non-Af Amer) 55 POC Glucose (mg/dL) 76 (65-110) mg/dL Random Glucose 86 (65-105) mg/dL Calcium 7.3 L (8.4-10.2) mg/dL Ionized Calcium (4.80-5.60) mg/dL Total Bilirubin 0.5 (0.2-1.3) mg/dl AST 24 (14-36) U/L ALT 27 (9-52) U/L Alkaline Phosphatase 76 (38-126) U/L Troponin I (0.00-0.120) ng/mL Total Protein 5.7 L (6.3-8.2) G/DL Albumin 2.8 L (3.5-5.0) g/dL Globulin 2.9 (2.2-3.9) gm/dL Albumin/Globulin Ratio 1.0 (1.0-2.1) 08/21/17 08/21/17 08/21/17 Range/Units 21:11 15:52 11:14 WBC (4.8-10.8) K/uL RBC (3.80-5.20) Mil/uL Hgb (12.0-16.0) g/dL Hct (34.0-47.0) % MCV (81.0-99.0) fl MCH (27.0-31.0) pg MCHC (33.0-37.0) g/dL RDW (11.5-14.5) % Plt Count (130-400) K/uL MPV (7.2-11.7) fl Neut % (Auto) (50.0-75.0) % Lymph % (Auto) (20.0-40.0) % Walton % (Auto) (0.0-10.0) % Eos % (Auto) (0.0-4.0) % Baso % (Auto) (0.0-2.0) % Neut # (Auto) (1.8-7.0) K/uL Lymph # (Auto) (1.0-4.3) K/uL Walton # (Auto) (0.0-0.8) K/uL Eos # (Auto) (0.0-0.7) K/uL Baso # (Auto) (0.0-0.2) K/uL Sodium (132-148) mmol/l Potassium (3.6-5.0) MMOL/L Chloride (98-107) mmol/L Carbon Dioxide (22-30) mmol/L Anion Gap (10-20) BUN (7-17) mg/dl Creatinine (0.7-1.2) mg/dl Est GFR ( Amer) Est GFR (Non-Af Amer) POC Glucose (mg/dL) 157 H 146 H 205 H (65-110) mg/dL Random Glucose (65-105) mg/dL Calcium (8.4-10.2) mg/dL Ionized Calcium (4.80-5.60) mg/dL Total Bilirubin (0.2-1.3) mg/dl AST (14-36) U/L ALT (9-52) U/L Alkaline Phosphatase (38-126) U/L Troponin I (0.00-0.120) ng/mL Total Protein (6.3-8.2) G/DL Albumin (3.5-5.0) g/dL Globulin (2.2-3.9) gm/dL Albumin/Globulin Ratio (1.0-2.1) 08/21/17 08/20/17 Range/Units 07:01 06:03 WBC (4.8-10.8) K/uL RBC (3.80-5.20) Mil/uL Hgb (12.0-16.0) g/dL Hct (34.0-47.0) % MCV (81.0-99.0) fl MCH (27.0-31.0) pg MCHC (33.0-37.0) g/dL RDW (11.5-14.5) % Plt Count (130-400) K/uL MPV (7.2-11.7) fl Neut % (Auto) (50.0-75.0) % Lymph % (Auto) (20.0-40.0) % Walton % (Auto) (0.0-10.0) % Eos % (Auto) (0.0-4.0) % Baso % (Auto) (0.0-2.0) % Neut # (Auto) (1.8-7.0) K/uL Lymph # (Auto) (1.0-4.3) K/uL Walton # (Auto) (0.0-0.8) K/uL Eos # (Auto) (0.0-0.7) K/uL Baso # (Auto) (0.0-0.2) K/uL Sodium (132-148) mmol/l Potassium (3.6-5.0) MMOL/L Chloride (98-107) mmol/L Carbon Dioxide (22-30) mmol/L Anion Gap (10-20) BUN (7-17) mg/dl Creatinine (0.7-1.2) mg/dl Est GFR ( Amer) Est GFR (Non-Af Amer) POC Glucose (mg/dL) (65-110) mg/dL Random Glucose (65-105) mg/dL Calcium (8.4-10.2) mg/dL Ionized Calcium 2.9 L (4.80-5.60) mg/dL Total Bilirubin (0.2-1.3) mg/dl AST (14-36) U/L ALT (9-52) U/L Alkaline Phosphatase (38-126) U/L Troponin I 0.0400 (0.00-0.120) ng/mL Total Protein (6.3-8.2) G/DL Albumin (3.5-5.0) g/dL Globulin (2.2-3.9) gm/dL Albumin/Globulin Ratio (1.0-2.1) Laboratory Results - last 24 hr 08/20/17 08/21/17 08/21/17 06:03 07:01 11:14 WBC RBC Hgb Hct MCV MCH MCHC RDW Plt Count MPV Neut % (Auto) Lymph % (Auto) Walton % (Auto) Eos % (Auto) Baso % (Auto) Neut # (Auto) Lymph # (Auto) Walton # (Auto) Eos # (Auto) Baso # (Auto) Sodium Potassium Chloride Carbon Dioxide Anion Gap BUN Creatinine Est GFR ( Amer) Est GFR (Non-Af Amer) POC Glucose (mg/dL) 205 H Random Glucose Calcium Ionized Calcium 2.9 L Total Bilirubin AST ALT Alkaline Phosphatase Troponin I 0.0400 Total Protein Albumin Globulin Albumin/Globulin Ratio 08/21/17 08/21/17 08/22/17 15:52 21:11 05:30 WBC RBC Hgb Hct MCV MCH MCHC RDW Plt Count MPV Neut % (Auto) Lymph % (Auto) Walton % (Auto) Eos % (Auto) Baso % (Auto) Neut # (Auto) Lymph # (Auto) Walton # (Auto) Eos # (Auto) Baso # (Auto) Sodium 140 Potassium 5.0 Chloride 105 Carbon Dioxide 25 Anion Gap 15 BUN 33 H Creatinine 1.0 Est GFR ( Amer) > 60 Est GFR (Non-Af Amer) 55 POC Glucose (mg/dL) 146 H 157 H Random Glucose 86 Calcium 7.3 L Ionized Calcium Total Bilirubin 0.5 AST 24 ALT 27 Alkaline Phosphatase 76 Troponin I Total Protein 5.7 L Albumin 2.8 L Globulin 2.9 Albumin/Globulin Ratio 1.0 08/22/17 08/22/17 05:30 06:27 WBC 5.5 D RBC 2.84 L Hgb 8.4 L Hct 25.6 L MCV 90.0 MCH 29.6 MCHC 32.9 L RDW 17.6 H Plt Count 203 MPV 10.2 Neut % (Auto) 81.1 H Lymph % (Auto) 6.4 L Walton % (Auto) 10.8 H Eos % (Auto) 1.4 Baso % (Auto) 0.3 Neut # (Auto) 4.4 Lymph # (Auto) 0.3 L Walton # (Auto) 0.6 Eos # (Auto) 0.1 Baso # (Auto) 0.0 Sodium Potassium Chloride Carbon Dioxide Anion Gap BUN Creatinine Est GFR ( Amer) Est GFR (Non-Af Amer) POC Glucose (mg/dL) 76 Random Glucose Calcium Ionized Calcium Total Bilirubin AST ALT Alkaline Phosphatase Troponin I Total Protein Albumin Globulin Albumin/Globulin Ratio EKG/Cardiology Studies: Cardiology / EKG Studies 08/21/17 09:00 ELECTROCARDIOGRAM DAILY Comment: Mode Of Transportation: PORTABLE Reason For Exam: qt long Fingerstick Blood Sugar Results: 76 Critical Care Progress Note - Nutrition Nutrition: Nutrition Category Date Time Status Heart Healthy Diet [DIET] Diets 08/20/17 Breakfast Active Assessment/Plan - Assessment and Plan (Free Text) Assessment: A/P Syncopal episode, ?seizer, hypocalcemia, azotemia, h/o multiple myloma - Continue meds - O2 supplement - Neurology follow up - DVT prophylaxis - Cardiology follow up - Ca replacement
[2017-08-22] MEDS: Acetylcysteine 20% Inhal Soln (4ml) INH SCH ×2 (07:39→19:16)
--- NOTE | 2017-08-22 08:12 | CP.PCM.PN ---
Subjective - Date & Time of Evaluation Date of Evaluation: 08/22/17 Time of Evaluation: 08:11 - Subjective Subjective: Ms. Perkins was seen and examined at the bedside in ICU. She is alert, oriented. She is currently on bipap machine which she is tolerating it. She denies any headache, dizziness, able to follow simple commands. She demonstarte involuntary leg tremors when awake, but according to staff, tremors are not visible when patient is asleep on some antipsychotic medications.There was no untoward events overnight. Objective - Vital Signs/Intake and Output Vital Signs (last 24 hours): Temp Pulse Resp BP Pulse Ox 98.1 F 67 11 L 124/60 100 08/22/17 07:53 08/22/17 07:53 08/22/17 07:53 08/22/17 07:53 08/22/17 07:53 Intake and Output: 08/22/17 08/22/17 06:59 18:59 Intake Total 1100 200 Output Total 2500 Balance -1400 200 - Medications Medications: Current Medications Acetylcysteine (Acetylcysteine 20%) 2 ml INH RBID [facility] Last Admin: 08/22/17 07:39 Dose: 2 ml Albuterol/Ipratropium (Duoneb 3 Mg/0.5 Mg (3 Ml) Ud) 3 ml INH RQ4 PRN PRN Reason: Shortness of Breath Last Admin: 08/21/17 17:00 Dose: 3 ml Albuterol/Ipratropium (Duoneb 3 Mg/0.5 Mg (3 Ml) Ud) 3 ml INH RQ6 [facility] Last Admin: 08/22/17 07:39 Dose: 3 ml Aripiprazole (Abilify) 5 mg PO HS [facility] Last Admin: 08/21/17 21:05 Dose: 5 mg Aspirin (Ecotrin) 81 mg PO DAILY [facility] Last Admin: 08/21/17 08:55 Dose: 81 mg Buspirone HCl (Buspar) 10 mg PO Q12@1000,2200 [facility] Last Admin: 08/21/17 21:05 Dose: 10 mg Calcitriol (Rocaltrol) 0.5 mcg PO BID [facility] Last Admin: 08/21/17 16:32 Dose: 0.5 mcg Calcium Carbonate (Oscal) 500 mg PO BIDWM [facility] Last Admin: 08/21/17 16:31 Dose: 500 mg Clonazepam (Klonopin) 0.5 mg PO DAILY PRN PRN Reason: Anxiety Last Admin: 08/20/17 11:30 Dose: 0.5 mg Dexamethasone (Decadron) 20 mg PO MON [facility] Dextrose (Dextrose 50% Inj) 0 ml IV STAT PRN; Protocol PRN Reason: Hypoglycemia Protocol Dextrose (Glutose 15) 0 gm PO ONCE PRN; Protocol PRN Reason: Hypoglycemia Protocol Divalproex Sodium (Depakote Dr(*Bid*)) 250 mg PO BID [facility] Last Admin: 08/21/17 16:30 Dose: 250 mg Enalapril Maleate (Vasotec) 2.5 mg PO DAILY [facility] Furosemide (Lasix) 20 mg PO Q48H [facility] Last Admin: 08/21/17 23:15 Dose: 20 mg Glucagon (Glucagen Diagnostic Kit) 0 mg IM STAT PRN; Protocol PRN Reason: Hypoglycemia Protocol Heparin Sodium (Porcine) (Heparin) 5,000 units SC Q8 [facility] PRN Reason: Protocol Last Admin: 08/22/17 01:45 Dose: 5,000 units Home Med (Riociguat [Adempas]) 2 mg PO TID [facility] Last Admin: 08/21/17 16:31 Dose: 2 mg Hydrocortisone (Cortef) 10 mg PO [facility] Last Admin: 08/21/17 23:17 Dose: 10 mg Calcium Gluconate 2,000 mg/ (Sodium Chloride) 1,020 mls @ 100 mls/hr IV .[id number] [facility] Stop: 08/22/17 13:01 Last Admin: 08/22/17 01:06 Dose: 100 mls/hr Insulin Detemir (Levemir) 30 units SC HS [facility] Last Admin: 08/21/17 21:12 Dose: 30 units Insulin Human Lispro (Humalog) 0 units SC ACHS [facility] Last Admin: 08/22/17 06:45 Dose: Not Given Insulin Human Lispro (Humalog) 12 units SC AC [facility] Last Admin: 08/22/17 06:45 Dose: Not Given Levothyroxine Sodium (Synthroid) 25 mcg PO DAILY@0630 [facility] Metformin HCl (Glucophage) 500 mg PO BID [facility] Last Admin: 08/21/17 16:30 Dose: 500 mg Metoprolol Tartrate (Lopressor) 25 mg PO Q12 [facility] Last Admin: 08/21/17 21:05 Dose: Not Given Pantoprazole Sodium (Protonix Ec Tab) 40 mg PO DAILY [facility] Last Admin: 08/21/17 08:58 Dose: 40 mg - Labs Labs: 08/22/17 05:30 08/22/17 05:30 - Constitutional Appears: No Acute Distress - Head Exam Head Exam: NORMAL INSPECTION - Eye Exam Pupil Exam: PERRL - Neurological Exam Neurological Exam: Alert, Awake Neuro motor strength exam: Left Upper Extremity: 5, Right Upper Extremity: 5, Left Lower Extremity: 4, Right Lower Extremity: 4 Additional comments: alert, awake, follows commands, sensation is intact. Assessment and Plan (1) Syncope and collapse Assessment & Plan: Case discussed with Dr. Marrero, continue all current medical, physical, and occupational therapies. Recommend hydration, treating any electrolyte abnormalities, and any underlying elevated WBC. Status: Acute
[2017-08-22] MEDS: Divalproex 250 mg DR(BID formulation) PO SCH ×2 (08:24→17:14)
[2017-08-22] MEDS: Pantoprazole 40 mg EC Tab PO SCH (08:26)
--- NOTE | 2017-08-22 09:19 | CP.PCM.PN ---
Subjective - Date & Time of Evaluation Date of Evaluation: 08/22/17 Time of Evaluation: 09:16 - Subjective Subjective: No acute overnight events. Pt seen and examined in ICU today. Pt awake, alert, her movements improved since previously. Continues to endorse persistent cough. Denies chest pain, dyspnea. Objective - Vital Signs/Intake and Output Vital Signs (last 24 hours): Temp Pulse Resp BP Pulse Ox 98.1 F 81 11 L 146/74 100 08/22/17 07:53 08/22/17 08:28 08/22/17 07:53 08/22/17 08:28 08/22/17 07:53 Intake and Output: 08/22/17 08/22/17 06:59 18:59 Intake Total 1100 200 Output Total 2500 Balance -1400 200 - Medications Medications: Current Medications Acetylcysteine (Acetylcysteine 20%) 2 ml INH RBID [facility] Last Admin: 08/22/17 07:39 Dose: 2 ml Albuterol/Ipratropium (Duoneb 3 Mg/0.5 Mg (3 Ml) Ud) 3 ml INH RQ4 PRN PRN Reason: Shortness of Breath Last Admin: 08/21/17 17:00 Dose: 3 ml Albuterol/Ipratropium (Duoneb 3 Mg/0.5 Mg (3 Ml) Ud) 3 ml INH RQ6 [facility] Last Admin: 08/22/17 07:39 Dose: 3 ml Aripiprazole (Abilify) 5 mg PO HS [facility] Last Admin: 08/21/17 21:05 Dose: 5 mg Aspirin (Ecotrin) 81 mg PO DAILY [facility] Last Admin: 08/22/17 08:24 Dose: 81 mg Buspirone HCl (Buspar) 10 mg PO Q12@1000,2200 [facility] Last Admin: 08/21/17 21:05 Dose: 10 mg Calcitriol (Rocaltrol) 0.5 mcg PO BID [facility] Last Admin: 08/22/17 08:26 Dose: 0.5 mcg Calcium Carbonate (Oscal) 500 mg PO BIDWM [facility] Last Admin: 08/22/17 08:26 Dose: 500 mg Clonazepam (Klonopin) 0.5 mg PO DAILY PRN PRN Reason: Anxiety Last Admin: 08/20/17 11:30 Dose: 0.5 mg Dexamethasone (Decadron) 20 mg PO MON [facility] Dextrose (Dextrose 50% Inj) 0 ml IV STAT PRN; Protocol PRN Reason: Hypoglycemia Protocol Dextrose (Glutose 15) 0 gm PO ONCE PRN; Protocol PRN Reason: Hypoglycemia Protocol Divalproex Sodium (Depakote Dr(*Bid*)) 250 mg PO BID [facility] Last Admin: 08/22/17 08:24 Dose: 250 mg Enalapril Maleate (Vasotec) 2.5 mg PO DAILY [facility] Furosemide (Lasix) 20 mg PO Q48H [facility] Last Admin: 08/21/17 23:15 Dose: 20 mg Glucagon (Glucagen Diagnostic Kit) 0 mg IM STAT PRN; Protocol PRN Reason: Hypoglycemia Protocol Heparin Sodium (Porcine) (Heparin) 5,000 units SC Q8 [facility] PRN Reason: Protocol Last Admin: 08/22/17 08:25 Dose: 5,000 units Home Med (Riociguat [Adempas]) 2 mg PO TID [facility] Last Admin: 08/22/17 08:26 Dose: 2 mg Hydrocortisone (Cortef) 10 mg PO [facility] Last Admin: 08/21/17 23:17 Dose: 10 mg Calcium Gluconate 2,000 mg/ (Sodium Chloride) 1,020 mls @ 100 mls/hr IV .[id number] [facility] Stop: 08/22/17 13:01 Last Admin: 08/22/17 01:06 Dose: 100 mls/hr Insulin Detemir (Levemir) 30 units SC HS [facility] Last Admin: 08/21/17 21:12 Dose: 30 units Insulin Human Lispro (Humalog) 0 units SC ACHS [facility] Last Admin: 08/22/17 06:45 Dose: Not Given Insulin Human Lispro (Humalog) 12 units SC AC [facility] Last Admin: 08/22/17 06:45 Dose: Not Given Levothyroxine Sodium (Synthroid) 25 mcg PO DAILY@0630 [facility] Metformin HCl (Glucophage) 500 mg PO BID [facility] Last Admin: 08/22/17 08:25 Dose: 500 mg Metoprolol Tartrate (Lopressor) 25 mg PO Q12 [facility] Last Admin: 08/22/17 08:28 Dose: 25 mg Pantoprazole Sodium (Protonix Ec Tab) 40 mg PO DAILY [facility] Last Admin: 08/22/17 08:26 Dose: 40 mg Promethazine HCl (Phenergan Syrup) 6.25 mg PO Q6 PRN PRN Reason: Cough - Labs Labs: 08/22/17 05:30 08/22/17 05:30 - Constitutional Appears: No Acute Distress, Other (Breathing tx with face mask) - Head Exam Head Exam: NORMAL INSPECTION - Eye Exam Eye Exam: EOMI - ENT Exam ENT Exam: Mucous Membranes Moist - Respiratory Exam Respiratory Exam: Wheezes (mild expiratory wheezing ), NORMAL BREATHING PATTERN - Cardiovascular Exam Cardiovascular Exam: REGULAR RHYTHM, +S1, +S2 - GI/Abdominal Exam GI & Abdominal Exam: Soft, Normal Bowel Sounds. absent: Distended, Guarding, Tenderness - Extremities Exam Extremities Exam: Pedal Edema (mild pedeal edema, vericose veins b/l ). absent : Calf Tenderness Additional comments: tremors b/l in the upper and lower extremities, improving IV line L arm - Back Exam Back Exam: NORMAL INSPECTION - Neurological Exam Neurological Exam: Alert, Awake, Oriented x3 - Psychiatric Exam Psychiatric exam: Normal Affect, Normal Mood - Skin Skin Exam: Dry, Intact, Normal Color Assessment and Plan - Assessment and Plan (Free Text) Assessment: Assessment/Plan: 71 YO female with multiple co-morbidities (PMHx including Multiple Myeloma, hx of multiple fractures (recent left hip fracture), IDDM type 2, HTN, Pulm HTN, COPD on home oxygen and CPAP, hx of PE s/p IVC filter in 2014) is admitted for unwitnessed syncope and SIRS. Unwitnessed syncopal episode -acute on chronic (hx multiple episode of dizziness, multiple falls); r/o seizure -Head CT w/o contrast: No acute ICH abnormality, small lucencies of skull concerning for metastatic disease or multiple myeloma-unchanged from 09/2016 -EKG: sinus tachycardia at 104 bpm with T wave inversions (unchanged from past EKG's) -troponin 0.1520, 2nd trop neg -prior catheterizations showed normal coronaries with Pulm HTN (most recent 10/20) -Echo 05/11/17: normal LVEF 65-70% with mild paradoxical septal motion -Neurology on consult c/w [place] -low prolactin -f/u MRI of brain, EEG; pending Hypocalcemia -acute, recurrent -likely 2/2 to multiple myleoma tx medication -serum calcium 5.0 on admission -corrected calcium today 7.9 (Ca 7.3, albumin 2.8) -started second IV calcium gluconate x 24/48 hrs per Endo -Endocrinology on consult; cont levo, IVF maintenance 48hrs, trend Calcium, CaCO3 500mg BID, Calcitriol 0.5mg BID, TSH -follow up calcium Chest pain -improving -chest pain likely 2/2 to acute trauma, r/o ACS -EKG: sinus tachycardia at 104 bpm with T wave inversions (unchanged from past EKG's); QTc 526 -prior catheterizations showed normal coronaries with Pulm HTN (most recent 10/20) -Echo 05/11/17: normal LVEF 65-70% with mild paradoxical septal motion -troponin 0.1520, 2nd and 3rd trop neg -pro BNP 87815 -Cardiology on consult; EP consult, daily EKGs, Mg replaced to avoid Torsades -EP; Dr. Burnett consulted -repeat EKG today SIRS -resolved, afebrile today, no leukocytosis or tachycardia -CXR at baseline, UA negative -s/p Zosyn 4.5gm IV once given in ED -Bcx no growth 48hrs, ucx no growth - stool culture, c-diff toxin, pro-calcitonin COPD -chronic, stable -Methylprednisolone 125mg IVP once given in ED -VBG: pH 7.35, pO2 31, pCO2 41, HCO3 21.5, Lactate 1.8 -continue home medications: Duoneb INH solution Q4 PRN SOB -continue home regimen: 2L supplemental O2 via nasal cannula during the day, CPAP at night -Pulmonary consulted; cont current meds Pulmonary HTN -chronic, stable -c/w home medications: Furosemide 20 mg PO Q48H -pt not on home Riociguat 2mg, never picked up rx per pharmacy -Meds verified with pharmacy, [facility] -c/w Riociguat 2mg PO TID -Pulmonary consulted;follow up recs HTN -chronic, controlled -held home medication due to hypotension on admission: Enalapril 2.5mg PO QD -c/w with Aspirin 81 mg PO QD -monitor BP IDDM type 2 -chronic, controlled -HbA1c 8.6 (08/21) -continue home medications: Insulin Levemir 14 units SC QAM, Insulin Levemir 10 units SC QPM, Insulin Lispro 5 units SC TID with meals, Metformin 500mg PO BID, Atorvastatin 20mg PO QHS -hypoglycemia protocol in place Hypothyroidism -chronic, controlled -endocrine on board; cont Levothyroxine 25 mcg PO QD Restless leg syndrome -chronic -continue home medications: Clonazepam 0.5 mg PO QD Depression -chronic, controlled -continue home medications: Buspirone 10mg PO Q12 -c/w Aripiprazole 5mg PO QHS -will decrease abilify per Neuro recs to decrease seizure threshold Multiple Myeloma -chronic -continue home medications: Dexamethasone 20mg once a week on mondays, Hydrocortisone 10mg PO QHS -patient follow regularly with heme/onc Dr. Vilchis -Hem/Onc on case while inpatient -recs appreciated; may need to dose reduce lenalidomide due to hypocalcemia, outpatient f/u Anemia -acute on chronic, likely secondary to multiple myeloma -Hb/Hct 8.4/25.6 -cont to monitor DVT prophylaxis -Heparin SC
[2017-08-22] MEDS: Promethazine 6.25 MG/5 ML CUP PO PRN ×2 (09:44→17:56)
--- NOTE | 2017-08-22 09:59 | CP.PCM.PN ---
Subjective - Date & Time of Evaluation Date of Evaluation: 08/22/17 Time of Evaluation: 10:00 - Subjective Subjective: DENIES CHEST PAINS/SOB STILL COUGHING BUT HAS SCANTY MUCUS EXPECTORATION PERSISTENT TREMOR OF EXTREMITIES Objective - Vital Signs/Intake and Output Vital Signs (last 24 hours): Temp Pulse Resp BP Pulse Ox 98.1 F 81 11 L 146/74 100 08/22/17 07:53 08/22/17 08:28 08/22/17 07:53 08/22/17 08:28 08/22/17 07:53 Intake and Output: 08/22/17 08/22/17 06:59 18:59 Intake Total 1100 200 Output Total 2500 Balance -1400 200 - Medications Medications: Current Medications Acetylcysteine (Acetylcysteine 20%) 2 ml INH RBID [facility] Last Admin: 08/22/17 07:39 Dose: 2 ml Albuterol/Ipratropium (Duoneb 3 Mg/0.5 Mg (3 Ml) Ud) 3 ml INH RQ4 PRN PRN Reason: Shortness of Breath Last Admin: 08/21/17 17:00 Dose: 3 ml Albuterol/Ipratropium (Duoneb 3 Mg/0.5 Mg (3 Ml) Ud) 3 ml INH RQ6 [facility] Last Admin: 08/22/17 07:39 Dose: 3 ml Aripiprazole (Abilify) 5 mg PO HS [facility] Last Admin: 08/21/17 21:05 Dose: 5 mg Aspirin (Ecotrin) 81 mg PO DAILY [facility] Last Admin: 08/22/17 08:24 Dose: 81 mg Buspirone HCl (Buspar) 10 mg PO Q12@1000,2200 [facility] Last Admin: 08/22/17 09:44 Dose: 10 mg Calcitriol (Rocaltrol) 0.5 mcg PO BID [facility] Last Admin: 08/22/17 08:26 Dose: 0.5 mcg Calcium Carbonate (Oscal) 500 mg PO BIDWM [facility] Last Admin: 08/22/17 08:26 Dose: 500 mg Clonazepam (Klonopin) 0.5 mg PO DAILY PRN PRN Reason: Anxiety Last Admin: 08/20/17 11:30 Dose: 0.5 mg Dexamethasone (Decadron) 20 mg PO MON [facility] Dextrose (Dextrose 50% Inj) 0 ml IV STAT PRN; Protocol PRN Reason: Hypoglycemia Protocol Dextrose (Glutose 15) 0 gm PO ONCE PRN; Protocol PRN Reason: Hypoglycemia Protocol Divalproex Sodium (Depakote Dr(*Bid*)) 250 mg PO BID [facility] Last Admin: 08/22/17 08:24 Dose: 250 mg Enalapril Maleate (Vasotec) 2.5 mg PO DAILY [facility] Furosemide (Lasix) 20 mg PO Q48H [facility] Last Admin: 08/21/17 23:15 Dose: 20 mg Glucagon (Glucagen Diagnostic Kit) 0 mg IM STAT PRN; Protocol PRN Reason: Hypoglycemia Protocol Heparin Sodium (Porcine) (Heparin) 5,000 units SC Q8 [facility] PRN Reason: Protocol Last Admin: 08/22/17 08:25 Dose: 5,000 units Home Med (Riociguat [Adempas]) 2 mg PO TID [facility] Last Admin: 08/22/17 08:26 Dose: 2 mg Hydrocortisone (Cortef) 10 mg PO HS [facility] Last Admin: 08/21/17 23:17 Dose: 10 mg Calcium Gluconate 2,000 mg/ (Sodium Chloride) 1,020 mls @ 100 mls/hr IV .[id number] [facility] Stop: 08/22/17 13:01 Last Admin: 08/22/17 01:06 Dose: 100 mls/hr Insulin Detemir (Levemir) 30 units SC HS [facility] Last Admin: 08/21/17 21:12 Dose: 30 units Insulin Human Lispro (Humalog) 0 units SC ACHS [facility] Last Admin: 08/22/17 06:45 Dose: Not Given Insulin Human Lispro (Humalog) 12 units SC AC [facility] Last Admin: 08/22/17 06:45 Dose: Not Given Levothyroxine Sodium (Synthroid) 25 mcg PO DAILY@0630 [facility] Metformin HCl (Glucophage) 500 mg PO BID [facility] Last Admin: 08/22/17 08:25 Dose: 500 mg Metoprolol Tartrate (Lopressor) 25 mg PO Q12 [facility] Last Admin: 08/22/17 08:28 Dose: 25 mg Pantoprazole Sodium (Protonix Ec Tab) 40 mg PO DAILY [facility] Last Admin: 08/22/17 08:26 Dose: 40 mg Promethazine HCl (Phenergan Syrup) 6.25 mg PO Q6 PRN PRN Reason: Cough Last Admin: 08/22/17 09:44 Dose: 6.25 mg - Labs Labs: 08/22/17 05:30 08/22/17 05:30 - Constitutional Appears: No Acute Distress - Head Exam Head Exam: ATRAUMATIC, NORMAL INSPECTION, NORMOCEPHALIC - Eye Exam Eye Exam: EOMI, Normal appearance, PERRL Pupil Exam: NORMAL ACCOMODATION, PERRL - ENT Exam ENT Exam: Mucous Membranes Moist, Normal Exam - Neck Exam Neck Exam: Full ROM, Normal Inspection. absent: Lymphadenopathy - Respiratory Exam Respiratory Exam: Clear to Ausculation Bilateral, Prolonged Expiratory Phase, NORMAL BREATHING PATTERN - Cardiovascular Exam Cardiovascular Exam: REGULAR RHYTHM, +S1, +S2. absent: Murmur - GI/Abdominal Exam GI & Abdominal Exam: Soft, Normal Bowel Sounds. absent: Tenderness - Rectal Exam Rectal Exam: NORMAL INSPECTION - Extremities Exam Extremities Exam: Full ROM, Normal Capillary Refill, Normal Inspection. absent : Joint Swelling, Pedal Edema Additional comments: TREMORS - Back Exam Back Exam: NORMAL INSPECTION - Neurological Exam Neurological Exam: Alert, Awake, CN II-XII Intact, Oriented x3 - Psychiatric Exam Psychiatric exam: Normal Affect, Normal Mood - Skin Skin Exam: Dry, Intact, Normal Color, Warm Assessment and Plan - Assessment and Plan (Free Text) Assessment: COPD RHEUMATOID LUNG DZ Plan: CONTINUE CURRENT RX
--- NOTE | 2017-08-22 18:35 | PN ---
DATE: 08/22/2017 ENDO FOLLOWUP NOTE LOCATION: In room 431 ICU. SUBJECTIVE: This is a 71-year-old female with recent uncontrolled type 2 insulin-requiring diabetes, now being followed closely for metabolic management. She also had marked hypocalcemia with associated neuromuscular irritability and paresthesias that have resolved accordingly. She received calcium gluconate infusion yesterday and overnight as noted. Her latest chemistry showed a BUN of 33, sodium 140, potassium 5, chloride 105, CO2 of 25, glucose 86 and creatinine 1. Her calcium level is 7.3 with an albumin level of 3.8 and a corrected calcium of 8.5. So her glycemic profile is also improved as noted. So at this time, we will continue the same basal and bolus insulin regimen as given to allow for dose equilibration and keep her on the Humalog given as 12 units subcu t.i.d. before meals as ordered. We will continue the Levemir given as basal insulin at 30 units subcu at bedtime daily as ordered. We will finish off the calcium gluconate infusion and continue the oral vitamin D and calcium supplementation as ordered. We will continue her calcium carbonate at 1 gm b.i.d. and her calcitriol at 0.5 mcg b.i.d. as ordered. We will also continue to modify and much lower levothyroxine at 25 mcg once daily in the morning to start tomorrow as ordered. We will obtain serial chemistries and supplement accordingly needed. We will follow with you. Irene Mann MD
--- NOTE | 2017-08-22 20:34 | CP.PCM.PN ---
Subjective - Date & Time of Evaluation Date of Evaluation: 08/22/17 Time of Evaluation: 20:34 - Subjective Subjective: PT W CONT SOB. Objective - Vital Signs/Intake and Output Vital Signs (last 24 hours): Temp Pulse Resp BP Pulse Ox 97.2 F L 67 25 H 125/56 L 100 08/22/17 19:55 08/22/17 19:55 08/22/17 19:55 08/22/17 19:55 08/22/17 19:55 Intake and Output: 08/22/17 08/23/17 18:59 06:59 Intake Total 940 50 Balance 940 50 - Medications Medications: Current Medications Acetylcysteine (Acetylcysteine 20%) 2 ml INH RBID [facility] Last Admin: 08/22/17 19:16 Dose: 2 ml Albuterol/Ipratropium (Duoneb 3 Mg/0.5 Mg (3 Ml) Ud) 3 ml INH RQ4 PRN PRN Reason: Shortness of Breath Last Admin: 08/21/17 17:00 Dose: 3 ml Albuterol/Ipratropium (Duoneb 3 Mg/0.5 Mg (3 Ml) Ud) 3 ml INH RQ6 [facility] Last Admin: 08/22/17 19:16 Dose: 3 ml Aripiprazole (Abilify) 5 mg PO HS [facility] Last Admin: 08/21/17 21:05 Dose: 5 mg Aspirin (Ecotrin) 81 mg PO DAILY [facility] Last Admin: 08/22/17 08:24 Dose: 81 mg Buspirone HCl (Buspar) 10 mg PO Q12@1000,2200 [facility] Last Admin: 08/22/17 09:44 Dose: 10 mg Calcitriol (Rocaltrol) 0.5 mcg PO BID [facility] Last Admin: 08/22/17 17:17 Dose: 0.5 mcg Calcium Carbonate (Oscal) 500 mg PO BIDWM [facility] Last Admin: 08/22/17 17:14 Dose: 500 mg Clonazepam (Klonopin) 0.5 mg PO DAILY PRN PRN Reason: Anxiety Last Admin: 08/20/17 11:30 Dose: 0.5 mg Dexamethasone (Decadron) 20 mg PO MON [facility] Dextrose (Dextrose 50% Inj) 0 ml IV STAT PRN; Protocol PRN Reason: Hypoglycemia Protocol Last Admin: 06/17/18 17:17 Dose: 50 ml Dextrose (Glutose 15) 0 gm PO ONCE PRN; Protocol PRN Reason: Hypoglycemia Protocol Divalproex Sodium (Depakote Dr(*Bid*)) 250 mg PO BID [facility] Last Admin: 08/22/17 17:14 Dose: 250 mg Enalapril Maleate (Vasotec) 2.5 mg PO DAILY [facility] Furosemide (Lasix) 20 mg PO Q48H [facility] Last Admin: 08/21/17 23:15 Dose: 20 mg Glucagon (Glucagen Diagnostic Kit) 0 mg IM STAT PRN; Protocol PRN Reason: Hypoglycemia Protocol Heparin Sodium (Porcine) (Heparin) 5,000 units SC Q8 [facility] PRN Reason: Protocol Last Admin: 08/22/17 17:14 Dose: 5,000 units Home Med (Riociguat [Adempas]) 2 mg PO TID [facility] Last Admin: 08/22/17 17:14 Dose: 2 mg Hydrocortisone (Cortef) 10 mg PO HS [facility] Last Admin: 08/21/17 23:17 Dose: 10 mg Insulin Detemir (Levemir) 30 units SC HS [facility] Last Admin: 08/21/17 21:12 Dose: 30 units Insulin Human Lispro (Humalog) 0 units SC ACHS [facility] Last Admin: 08/22/17 17:15 Dose: Not Given Insulin Human Lispro (Humalog) 12 units SC AC [facility] Last Admin: 08/22/17 17:15 Dose: Not Given Levothyroxine Sodium (Synthroid) 25 mcg PO DAILY@0630 [facility] Metformin HCl (Glucophage) 500 mg PO BID [facility] Last Admin: 08/22/17 17:14 Dose: Not Given Metoprolol Tartrate (Lopressor) 25 mg PO Q12 [facility] Last Admin: 08/22/17 08:28 Dose: 25 mg Pantoprazole Sodium (Protonix Ec Tab) 40 mg PO DAILY [facility] Last Admin: 08/22/17 08:26 Dose: 40 mg Promethazine HCl (Phenergan Syrup) 6.25 mg PO Q6 PRN PRN Reason: Cough Last Admin: 08/22/17 17:56 Dose: 6.25 mg - Labs Labs: 08/22/17 05:30 08/22/17 05:30 Assessment and Plan (1) Hx of ventricular tachycardia Status: Acute (2) Hypomagnesemia Status: Acute (3) T wave inversion in EKG Status: Acute (4) Hypocalcemia syndrome Status: Acute (5) Abnormal QT interval present on electrocardiogram Status: Acute (6) Cor pulmonale (chronic) Status: Acute (7) Syncope and collapse Status: Acute (8) Abnormal involuntary movements Status: Acute (9) Multiple myeloma Status: Chronic (10) Pulmonary hypertension Status: Chronic - Assessment and Plan (Free Text) Plan: QTC 480. T WAVE INVERSIONS IMPROVED IN LAT LEADS. CONT CA REPLACEMENT. MONITOR LYTES. ICU MONITORING. EP CONSULTED.
[2017-08-22] MEDS: Insulin Detemir 100 Units/ml Inj SC SCH (21:13)
--- NOTE | 2017-08-22 21:51 | CP.PCM.PN ---
Subjective - Date & Time of Evaluation Date of Evaluation: 08/22/17 Time of Evaluation: 18:00 - Subjective Subjective: Feeling better. Objective - Vital Signs/Intake and Output Vital Signs (last 24 hours): Temp Pulse Resp BP Pulse Ox 97.2 F L 65 25 H 138/61 100 08/22/17 20:00 08/22/17 21:14 08/22/17 21:14 08/22/17 21:14 08/22/17 21:14 Intake and Output: 08/22/17 08/23/17 18:59 06:59 Intake Total 940 50 Balance 940 50 - Medications Medications: Current Medications Acetylcysteine (Acetylcysteine 20%) 2 ml INH RBID [facility] Last Admin: 08/22/17 19:16 Dose: 2 ml Albuterol/Ipratropium (Duoneb 3 Mg/0.5 Mg (3 Ml) Ud) 3 ml INH RQ4 PRN PRN Reason: Shortness of Breath Last Admin: 08/21/17 17:00 Dose: 3 ml Albuterol/Ipratropium (Duoneb 3 Mg/0.5 Mg (3 Ml) Ud) 3 ml INH RQ6 [facility] Last Admin: 08/22/17 19:16 Dose: 3 ml Aripiprazole (Abilify) 5 mg PO HS [facility] Last Admin: 08/22/17 21:03 Dose: 5 mg Aspirin (Ecotrin) 81 mg PO DAILY [facility] Last Admin: 08/22/17 08:24 Dose: 81 mg Buspirone HCl (Buspar) 10 mg PO Q12@1000,2200 [facility] Last Admin: 08/22/17 21:05 Dose: 10 mg Calcitriol (Rocaltrol) 0.5 mcg PO BID [facility] Last Admin: 08/22/17 17:17 Dose: 0.5 mcg Calcium Carbonate (Oscal) 500 mg PO BIDWM [facility] Last Admin: 08/22/17 17:14 Dose: 500 mg Clonazepam (Klonopin) 0.5 mg PO DAILY PRN PRN Reason: Anxiety Last Admin: 08/20/17 11:30 Dose: 0.5 mg Dexamethasone (Decadron) 20 mg PO MON [facility] Dextrose (Dextrose 50% Inj) 0 ml IV STAT PRN; Protocol PRN Reason: Hypoglycemia Protocol Last Admin: 08/22/17 17:17 Dose: 50 ml Dextrose (Glutose 15) 0 gm PO ONCE PRN; Protocol PRN Reason: Hypoglycemia Protocol Divalproex Sodium (Depakote Dr(*Bid*)) 250 mg PO BID [facility] Last Admin: 08/22/17 17:14 Dose: 250 mg Enalapril Maleate (Vasotec) 2.5 mg PO DAILY [facility] Furosemide (Lasix) 20 mg PO Q48H [facility] Last Admin: 08/21/17 23:15 Dose: 20 mg Glucagon (Glucagen Diagnostic Kit) 0 mg IM STAT PRN; Protocol PRN Reason: Hypoglycemia Protocol Heparin Sodium (Porcine) (Heparin) 5,000 units SC Q8 [facility] PRN Reason: Protocol Last Admin: 08/22/17 17:14 Dose: 5,000 units Home Med (Riociguat [Adempas]) 2 mg PO TID [facility] Last Admin: 08/22/17 17:14 Dose: 2 mg Hydrocortisone (Cortef) 10 mg PO HS [facility] Last Admin: 08/22/17 21:06 Dose: 10 mg Insulin Detemir (Levemir) 30 units SC HS [facility] Last Admin: 08/22/17 21:13 Dose: Not Given Insulin Human Lispro (Humalog) 0 units SC ACHS [facility] Last Admin: 08/22/17 21:02 Dose: Not Given Insulin Human Lispro (Humalog) 12 units SC AC [facility] Last Admin: 08/22/17 17:15 Dose: Not Given Levothyroxine Sodium (Synthroid) 25 mcg PO DAILY@0630 [facility] Metformin HCl (Glucophage) 500 mg PO BID [facility] Last Admin: 08/22/17 17:14 Dose: Not Given Metoprolol Tartrate (Lopressor) 25 mg PO Q12 [facility] Last Admin: 08/22/17 21:04 Dose: 25 mg Pantoprazole Sodium (Protonix Ec Tab) 40 mg PO DAILY [facility] Last Admin: 08/22/17 08:26 Dose: 40 mg Promethazine HCl (Phenergan Syrup) 6.25 mg PO Q6 PRN PRN Reason: Cough Last Admin: 08/22/17 17:56 Dose: 6.25 mg - Labs Labs: 08/22/17 05:30 08/22/17 05:30 - Head Exam Head Exam: ATRAUMATIC - Eye Exam Eye Exam: Normal appearance - ENT Exam ENT Exam: Mucous Membranes Dry - Respiratory Exam Respiratory Exam: NORMAL BREATHING PATTERN - Cardiovascular Exam Cardiovascular Exam: +S1, +S2 - GI/Abdominal Exam GI & Abdominal Exam: Normal Bowel Sounds Assessment and Plan (1) Hypocalcemia syndrome Assessment & Plan: ? related to denosumab vs lenalidomide on supplementation Status: Acute (2) Anemia Assessment & Plan: chronic disease, multiple myeloma, myeloma treatment. Status: Resolved (3) Multiple myeloma Assessment & Plan: outpatient treatment Status: Chronic
[2017-08-23] MEDS: Albuterol-Ipratrop 3 mg / 0.5 (3 ml) UD INH SCH ×4 (01:13→19:00)
[2017-08-23 05:36] LABS: HEMOGLOBIN 8.7 g/dL (12.0-16.0); MEAN CELL VOLUME 89.6 fl (81.0-99.0); MEAN CORPUSCULAR HEMOGLOBIN 29.3 pg (27.0-31.0); MEAN CORPUSCULAR HGB CONC 32.7 g/dL (33.0-37.0); RBC 2.96 Mil/uL (3.80-5.20); RED CELL DISTRIBUTION WIDTH 17.7 % (11.5-14.5); WHITE BLOOD COUNT 3.9 K/uL (4.8-10.8)
[2017-08-23 06:21] LABS: ALBUMIN 2.9 g/dL (3.5-5.0); ALT/SGPT 30 U/L (9-52); AST/SGOT 12 U/L (14-36); BLOOD UREA NITROGEN 27 mg/dl (7-17); CALCIUM 7.8 mg/dL (8.4-10.2); GFR AFRICAN-AMERICAN > 60; GFR NON-AFRICAN AMERICAN > 60
[2017-08-23] MEDS: Levothyroxine 25 MCG TAB PO SCH (06:36)
[2017-08-23] MEDS: Insulin Lispro (humaLOG) 100 Units/ml Inj SC SCH ×6 (06:37→22:26)
[2017-08-23] MEDS: Acetylcysteine 20% Inhal Soln (4ml) INH SCH ×2 (08:03→19:05)
[2017-08-23] MEDS: Promethazine 6.25 MG/5 ML CUP PO PRN (08:19)
[2017-08-23] MEDS: Pantoprazole 40 mg EC Tab PO SCH (08:20)
[2017-08-23] MEDS: Divalproex 250 mg DR(BID formulation) PO SCH ×2 (08:23→17:25)
--- NOTE | 2017-08-23 09:07 | CP.PCM.PN ---
Subjective - Date & Time of Evaluation Date of Evaluation: 08/23/17 Time of Evaluation: 09:07 - Subjective Subjective: Ms. Perkins was seen and examined at the bedside in ICU. She is alert, oriented. She is currently on nasal cannula which she is tolerating. She denies any headache, dizziness, able to follow simple commands. She demonstrates involuntary leg tremors when awake, but according to staff, tremors are not visible when patient is asleep on some antipsychotic medications.There was no untoward events overnight. Objective - Vital Signs/Intake and Output Vital Signs (last 24 hours): Temp Pulse Resp BP Pulse Ox 97.9 F 73 22 138/50 L 100 08/23/17 08:00 08/23/17 08:26 08/23/17 08:00 08/23/17 08:26 08/23/17 08:00 Intake and Output: 08/23/17 08/23/17 06:59 18:59 Intake Total 150 Output Total 2600 Balance -2450 - Medications Medications: Current Medications Acetylcysteine (Acetylcysteine 20%) 2 ml INH RBID [facility] Last Admin: 08/23/17 08:03 Dose: 2 ml Albuterol/Ipratropium (Duoneb 3 Mg/0.5 Mg (3 Ml) Ud) 3 ml INH RQ4 PRN PRN Reason: Shortness of Breath Last Admin: 08/21/17 17:00 Dose: 3 ml Albuterol/Ipratropium (Duoneb 3 Mg/0.5 Mg (3 Ml) Ud) 3 ml INH RQ6 [facility] Last Admin: 08/23/17 08:03 Dose: 3 ml Aripiprazole (Abilify) 5 mg PO HS [facility] Last Admin: 08/22/17 21:03 Dose: 5 mg Aspirin (Ecotrin) 81 mg PO DAILY [facility] Last Admin: 08/23/17 08:22 Dose: 81 mg Buspirone HCl (Buspar) 10 mg PO Q12@1000,2200 [facility] Last Admin: 08/22/17 21:05 Dose: 10 mg Calcitriol (Rocaltrol) 0.5 mcg PO BID [facility] Last Admin: 08/23/17 08:21 Dose: 0.5 mcg Calcium Carbonate (Oscal) 500 mg PO BIDWM [facility] Last Admin: 08/23/17 08:20 Dose: 500 mg Clonazepam (Klonopin) 0.5 mg PO DAILY PRN PRN Reason: Anxiety Last Admin: 08/20/17 11:30 Dose: 0.5 mg Dexamethasone (Decadron) 20 mg PO MON [facility] Last Admin: 08/23/17 08:23 Dose: 20 mg Dextrose (Dextrose 50% Inj) 0 ml IV STAT PRN; Protocol PRN Reason: Hypoglycemia Protocol Last Admin: 08/22/17 17:17 Dose: 50 ml Dextrose (Glutose 15) 0 gm PO ONCE PRN; Protocol PRN Reason: Hypoglycemia Protocol Divalproex Sodium (Depakote Dr(*Bid*)) 250 mg PO BID [facility] Last Admin: 08/23/17 08:23 Dose: 250 mg Enalapril Maleate (Vasotec) 2.5 mg PO DAILY [facility] Furosemide (Lasix) 20 mg PO Q48H [facility] Last Admin: 08/21/17 23:15 Dose: 20 mg Glucagon (Glucagen Diagnostic Kit) 0 mg IM STAT PRN; Protocol PRN Reason: Hypoglycemia Protocol Heparin Sodium (Porcine) (Heparin) 5,000 units SC Q8 [facility] PRN Reason: Protocol Last Admin: 08/23/17 08:20 Dose: 5,000 units Home Med (Riociguat [Adempas]) 2 mg PO TID [facility] Last Admin: 08/23/17 08:22 Dose: 2 mg Hydrocortisone (Cortef) 10 mg PO HS [facility] Last Admin: 08/22/17 21:06 Dose: 10 mg Insulin Detemir (Levemir) 30 units SC HS [facility] Last Admin: 08/22/17 21:13 Dose: Not Given Insulin Human Lispro (Humalog) 0 units SC ACHS [facility] Last Admin: 08/23/17 06:37 Dose: Not Given Insulin Human Lispro (Humalog) 12 units SC AC [facility] Last Admin: 08/23/17 08:24 Dose: Not Given Levothyroxine Sodium (Synthroid) 25 mcg PO DAILY@0630 [facility] Last Admin: 08/23/17 06:36 Dose: 25 mcg Metformin HCl (Glucophage) 500 mg PO BID [facility] Last Admin: 08/23/17 08:21 Dose: 500 mg Metoprolol Tartrate (Lopressor) 25 mg PO Q12 [facility] Last Admin: 08/23/17 08:26 Dose: 25 mg Pantoprazole Sodium (Protonix Ec Tab) 40 mg PO DAILY [facility] Last Admin: 08/23/17 08:20 Dose: 40 mg Promethazine HCl (Phenergan Syrup) 6.25 mg PO Q6 PRN PRN Reason: Cough Last Admin: 08/23/17 08:19 Dose: 6.25 mg - Labs Labs: 08/23/17 04:45 08/23/17 04:45 - Constitutional Appears: No Acute Distress - Head Exam Head Exam: NORMAL INSPECTION - Eye Exam Pupil Exam: PERRL - Neurological Exam Neurological Exam: Alert, Awake Neuro motor strength exam: Left Upper Extremity: 3, Right Upper Extremity: 3, Left Lower Extremity: 3, Right Lower Extremity: 3 Additional comments: neurological unchanged from previous examination. Assessment and Plan (1) Syncope and collapse Assessment & Plan: Case discussed with Dr. Rodrigez, continue all current medical, physical, and occupational therapies. Pending EEG and MRI of the brain without contrast. Recommend hydration, treating any electrolyte abnormalities, and any underlying elevated WBC. Status: Acute
--- NOTE | 2017-08-23 09:16 | CP.PCM.PN ---
Subjective - Date & Time of Evaluation Date of Evaluation: 08/23/17 Time of Evaluation: 09:15 - Subjective Subjective: SOB IMPROVED TREMORS OF EXTREMITIES PERSIST Objective - Vital Signs/Intake and Output Vital Signs (last 24 hours): Temp Pulse Resp BP Pulse Ox 97.9 F 73 22 138/50 L 100 08/23/17 08:00 08/23/17 08:26 08/23/17 08:00 08/23/17 08:26 08/23/17 08:00 Intake and Output: 08/23/17 08/23/17 06:59 18:59 Intake Total 150 Output Total 2600 Balance -2450 - Medications Medications: Current Medications Acetylcysteine (Acetylcysteine 20%) 2 ml INH RBID [facility] Last Admin: 08/23/17 08:03 Dose: 2 ml Albuterol/Ipratropium (Duoneb 3 Mg/0.5 Mg (3 Ml) Ud) 3 ml INH RQ4 PRN PRN Reason: Shortness of Breath Last Admin: 08/21/17 17:00 Dose: 3 ml Albuterol/Ipratropium (Duoneb 3 Mg/0.5 Mg (3 Ml) Ud) 3 ml INH RQ6 [facility] Last Admin: 08/23/17 08:03 Dose: 3 ml Aripiprazole (Abilify) 5 mg PO HS [facility] Last Admin: 08/22/17 21:03 Dose: 5 mg Aspirin (Ecotrin) 81 mg PO DAILY [facility] Last Admin: 08/23/17 08:22 Dose: 81 mg Buspirone HCl (Buspar) 10 mg PO Q12@1000,2200 [facility] Last Admin: 08/22/17 21:05 Dose: 10 mg Calcitriol (Rocaltrol) 0.5 mcg PO BID [facility] Last Admin: 08/23/17 08:21 Dose: 0.5 mcg Calcium Carbonate (Oscal) 500 mg PO BIDWM [facility] Last Admin: 08/23/17 08:20 Dose: 500 mg Clonazepam (Klonopin) 0.5 mg PO DAILY PRN PRN Reason: Anxiety Last Admin: 08/20/17 11:30 Dose: 0.5 mg Dexamethasone (Decadron) 20 mg PO MON [facility] Last Admin: 08/23/17 08:23 Dose: 20 mg Dextrose (Dextrose 50% Inj) 0 ml IV STAT PRN; Protocol PRN Reason: Hypoglycemia Protocol Last Admin: 08/22/17 17:17 Dose: 50 ml Dextrose (Glutose 15) 0 gm PO ONCE PRN; Protocol PRN Reason: Hypoglycemia Protocol Divalproex Sodium (Depakote Dr(*Bid*)) 250 mg PO BID [facility] Last Admin: 08/23/17 08:23 Dose: 250 mg Enalapril Maleate (Vasotec) 2.5 mg PO DAILY [facility] Furosemide (Lasix) 20 mg PO Q48H [facility] Last Admin: 08/21/17 23:15 Dose: 20 mg Glucagon (Glucagen Diagnostic Kit) 0 mg IM STAT PRN; Protocol PRN Reason: Hypoglycemia Protocol Heparin Sodium (Porcine) (Heparin) 5,000 units SC Q8 [facility] PRN Reason: Protocol Last Admin: 08/23/17 08:20 Dose: 5,000 units Home Med (Riociguat [Adempas]) 2 mg PO TID [facility] Last Admin: 08/23/17 08:22 Dose: 2 mg Hydrocortisone (Cortef) 10 mg PO HS [facility] Last Admin: 08/22/17 21:06 Dose: 10 mg Insulin Detemir (Levemir) 30 units SC HS [facility] Last Admin: 08/22/17 21:13 Dose: Not Given Insulin Human Lispro (Humalog) 0 units SC ACHS [facility] Last Admin: 08/23/17 06:37 Dose: Not Given Insulin Human Lispro (Humalog) 12 units SC AC [facility] Last Admin: 08/23/17 08:24 Dose: Not Given Levothyroxine Sodium (Synthroid) 25 mcg PO DAILY@0630 [facility] Last Admin: 08/23/17 06:36 Dose: 25 mcg Metformin HCl (Glucophage) 500 mg PO BID [facility] Last Admin: 08/23/17 08:21 Dose: 500 mg Metoprolol Tartrate (Lopressor) 25 mg PO Q12 [facility] Last Admin: 08/23/17 08:26 Dose: 25 mg Pantoprazole Sodium (Protonix Ec Tab) 40 mg PO DAILY [facility] Last Admin: 08/23/17 08:20 Dose: 40 mg Promethazine HCl (Phenergan Syrup) 6.25 mg PO Q6 PRN PRN Reason: Cough Last Admin: 08/23/17 08:19 Dose: 6.25 mg - Labs Labs: 08/23/17 04:45 08/23/17 04:45 - Constitutional Appears: Chronically Ill - Head Exam Head Exam: ATRAUMATIC, NORMAL INSPECTION, NORMOCEPHALIC - Eye Exam Eye Exam: EOMI, Normal appearance, PERRL Pupil Exam: NORMAL ACCOMODATION, PERRL - ENT Exam ENT Exam: Mucous Membranes Moist, Normal Exam - Neck Exam Neck Exam: Full ROM, Normal Inspection. absent: Lymphadenopathy - Respiratory Exam Respiratory Exam: Prolonged Expiratory Phase, Wheezes, NORMAL BREATHING PATTERN - Cardiovascular Exam Cardiovascular Exam: REGULAR RHYTHM, +S1, +S2. absent: Murmur - GI/Abdominal Exam GI & Abdominal Exam: Soft, Normal Bowel Sounds. absent: Tenderness - Rectal Exam Rectal Exam: NORMAL INSPECTION - Extremities Exam Extremities Exam: Full ROM, Normal Capillary Refill, Normal Inspection. absent : Joint Swelling, Pedal Edema - Back Exam Back Exam: NORMAL INSPECTION - Neurological Exam Neurological Exam: Abnormal Gait, Alert, Awake, CN II-XII Intact, Oriented x3 - Psychiatric Exam Psychiatric exam: Normal Affect, Normal Mood - Skin Skin Exam: Dry, Intact, Normal Color, Warm Assessment and Plan - Assessment and Plan (Free Text) Assessment: COPD EXAC RHEUMATOID LUNG TREMORS OF EXTREMITIES Plan: CONTINUE CURRENT RX
--- NOTE | 2017-08-23 10:24 | CP.PCM.PN ---
Subjective - Date & Time of Evaluation Date of Evaluation: 08/23/17 Time of Evaluation: 10:23 - Subjective Subjective: Glucose overnight was 30's. Will hold insulin. No acute overnight events. Pt states that her dyspnea has improved, continues to have tremor in the extremities (lower > upper). Denies chest pain, palpitations. Objective - Vital Signs/Intake and Output Vital Signs (last 24 hours): Temp Pulse Resp BP Pulse Ox 97.9 F 73 22 138/50 L 100 08/23/17 08:00 08/23/17 08:26 08/23/17 08:00 08/23/17 08:26 08/23/17 08:00 Intake and Output: 08/23/17 08/23/17 06:59 18:59 Intake Total 150 Output Total 2600 Balance -2450 - Medications Medications: Current Medications Acetylcysteine (Acetylcysteine 20%) 2 ml INH RBID [facility] Last Admin: 08/23/17 08:03 Dose: 2 ml Albuterol/Ipratropium (Duoneb 3 Mg/0.5 Mg (3 Ml) Ud) 3 ml INH RQ4 PRN PRN Reason: Shortness of Breath Last Admin: 08/21/17 17:00 Dose: 3 ml Albuterol/Ipratropium (Duoneb 3 Mg/0.5 Mg (3 Ml) Ud) 3 ml INH RQ6 [facility] Last Admin: 08/23/17 08:03 Dose: 3 ml Aripiprazole (Abilify) 5 mg PO HS [facility] Last Admin: 08/22/17 21:03 Dose: 5 mg Aspirin (Ecotrin) 81 mg PO DAILY [facility] Last Admin: 08/23/17 08:22 Dose: 81 mg Buspirone HCl (Buspar) 10 mg PO Q12@1000,2200 [facility] Last Admin: 08/23/17 09:30 Dose: 10 mg Calcitriol (Rocaltrol) 0.5 mcg PO BID [facility] Last Admin: 08/23/17 08:21 Dose: 0.5 mcg Calcium Carbonate (Oscal) 500 mg PO BIDWM [facility] Last Admin: 08/23/17 08:20 Dose: 500 mg Clonazepam (Klonopin) 0.5 mg PO DAILY PRN PRN Reason: Anxiety Last Admin: 08/20/17 11:30 Dose: 0.5 mg Dexamethasone (Decadron) 20 mg PO MON [facility] Last Admin: 08/23/17 09:33 Dose: Not Given Dextrose (Dextrose 50% Inj) 0 ml IV STAT PRN; Protocol PRN Reason: Hypoglycemia Protocol Last Admin: 08/22/17 17:17 Dose: 50 ml Dextrose (Glutose 15) 0 gm PO ONCE PRN; Protocol PRN Reason: Hypoglycemia Protocol Divalproex Sodium (Depakote Dr(*Bid*)) 250 mg PO BID [facility] Last Admin: 08/23/17 08:23 Dose: 250 mg Enalapril Maleate (Vasotec) 2.5 mg PO DAILY [facility] Furosemide (Lasix) 20 mg PO Q48H [facility] Last Admin: 08/21/17 23:15 Dose: 20 mg Glucagon (Glucagen Diagnostic Kit) 0 mg IM STAT PRN; Protocol PRN Reason: Hypoglycemia Protocol Heparin Sodium (Porcine) (Heparin) 5,000 units SC Q8 [facility] PRN Reason: Protocol Last Admin: 08/23/17 08:20 Dose: 5,000 units Home Med (Riociguat [Adempas]) 2 mg PO TID [facility] Last Admin: 08/23/17 08:22 Dose: 2 mg Hydrocortisone (Cortef) 10 mg PO HS [facility] Last Admin: 08/22/17 21:06 Dose: 10 mg Magnesium Sulfate 1 gm/ Sodium (Chloride) 102 mls @ 204 mls/hr IVPB ONCE ONE PRN Reason: 1 GM/30 MIN Stop: 08/23/17 10:51 Insulin Detemir (Levemir) 30 units SC HS [facility] Last Admin: 08/22/17 21:13 Dose: Not Given Insulin Human Lispro (Humalog) 0 units SC ACHS [facility] Last Admin: 08/23/17 06:37 Dose: Not Given Insulin Human Lispro (Humalog) 12 units SC AC [facility] Last Admin: 08/23/17 08:24 Dose: Not Given Levothyroxine Sodium (Synthroid) 25 mcg PO DAILY@0630 [facility] Last Admin: 08/23/17 06:36 Dose: 25 mcg Metformin HCl (Glucophage) 500 mg PO BID [facility] Last Admin: 08/23/17 08:21 Dose: 500 mg Metoprolol Tartrate (Lopressor) 25 mg PO Q12 [facility] Last Admin: 08/23/17 08:26 Dose: 25 mg Pantoprazole Sodium (Protonix Ec Tab) 40 mg PO DAILY [facility] Last Admin: 08/23/17 08:20 Dose: 40 mg Promethazine HCl (Phenergan Syrup) 6.25 mg PO Q6 PRN PRN Reason: Cough Last Admin: 08/23/17 08:19 Dose: 6.25 mg - Labs Labs: 08/23/17 04:45 08/23/17 04:45 - Constitutional Appears: No Acute Distress, Other (on NC 4L) - Head Exam Head Exam: NORMAL INSPECTION - Eye Exam Eye Exam: EOMI - ENT Exam ENT Exam: Mucous Membranes Moist - Respiratory Exam Respiratory Exam: Rhonchi (mild rhonchi in the lower lobes), NORMAL BREATHING PATTERN - Cardiovascular Exam Cardiovascular Exam: REGULAR RHYTHM, +S1, +S2 - GI/Abdominal Exam GI & Abdominal Exam: Soft, Normal Bowel Sounds. absent: Tenderness - Extremities Exam Extremities Exam: Normal Inspection. absent: Calf Tenderness, Pedal Edema Additional comments: tremor in the upper and lower extremities lower >upper but improved from previously - Neurological Exam Neurological Exam: Alert, Awake, Oriented x3 - Psychiatric Exam Psychiatric exam: Normal Affect, Normal Mood Assessment and Plan - Assessment and Plan (Free Text) Assessment: Assessment/Plan: 71 YO female with multiple co-morbidities (PMHx including Multiple Myeloma, hx of multiple fractures (recent left hip fracture), IDDM type 2, HTN, Pulm HTN, COPD on home oxygen and CPAP, hx of PE s/p IVC filter in 2014) is admitted for unwitnessed syncope and SIRS. Unwitnessed syncopal episode -acute on chronic (hx multiple episode of dizziness, multiple falls); r/o seizure -Head CT w/o contrast: No acute ICH abnormality, small lucencies of skull concerning for metastatic disease or multiple myeloma-unchanged from 09/2016 -EKG: sinus tachycardia at 104 bpm with T wave inversions (unchanged from past EKG's) -troponin x2 neg -prior catheterizations showed normal coronaries with Pulm HTN (most recent 10/20) -Echo 05/11/17: normal LVEF 65-70% with mild paradoxical septal motion -Neurology on consult c/w [place] -low prolactin -f/u MRI of brain, EEG; pending Hypocalcemia, Prolong QTC -acute, recurrent -likely 2/2 to multiple myleoma tx medication -serum calcium 5.0 on admission -corrected calcium today 8.3 (Ca 7.8, albumin 2.9) -s/p 2x IV calcium gluconate x 24/48 hrs per Endo -Endocrinology on consult; cont levo, IVF maintenance 48hrs, trend Calcium, CaCO3 500mg BID, Calcitriol 0.5mg BID, TSH -Cardiology on consult; EP consult, daily EKGs, Mg replaced to avoid Torsades -EKG: sinus tachycardia at 104 bpm with T wave inversions (unchanged from past EKG's); QTc 526 -repeat EKG 08/22; QTc 484, QTc improving -repeat EKG today -follow up calcium Hypomagnesemia -Mg today 1.3 -will start Mgsulfate 1gm today -follow up Chest pain -improving -chest pain likely 2/2 to acute trauma, r/o ACS -EKG: sinus tachycardia at 104 bpm with T wave inversions (unchanged from past EKG's); QTc 526 -prior catheterizations showed normal coronaries with Pulm HTN (most recent 10/20) -Echo 05/11/17: normal LVEF 65-70% with mild paradoxical septal motion -troponin 0.1520, 2nd and 3rd trop neg -pro BNP [id number] -Cardiology on consult; EP consult, daily EKGs, Mg replaced to avoid Torsades -EP; Dr. Burnett consulted; will follow up SIRS -resolved, afebrile today, no leukocytosis or tachycardia -CXR at baseline, UA negative -s/p Zosyn 4.5gm IV once given in ED -Bcx no growth, ucx no growth x 3 days -stool culture, c-diff toxin, pro-calcitonin COPD -chronic, stable -Methylprednisolone 125mg IVP once given in ED -VBG: pH 7.35, pO2 31, pCO2 41, HCO3 21.5, Lactate 1.8 -continue home medications: Duoneb INH solution Q4 PRN SOB -continue home regimen: 2L supplemental O2 via nasal cannula during the day, CPAP at night -Pulmonary consulted; cont current meds Pulmonary HTN -chronic, stable -c/w home medications: Furosemide 20 mg PO Q48H -pt not on home Riociguat 2mg, never picked up rx per pharmacy -Meds verified with pharmacy, [facility] -c/w Riociguat 2mg PO TID -Pulmonary consulted;follow up recs HTN -chronic, controlled -held home medication due to hypotension on admission: Enalapril 2.5mg PO QD -c/w with Aspirin 81 mg PO QD -monitor BP IDDM type 2 -chronic, controlled -HbA1c 8.6 (08/21) -continue home medications: Insulin Levemir 14 units SC QAM, Insulin Levemir 10 units SC QPM, Insulin Lispro 5 units SC TID with meals, Metformin 500mg PO BID, Atorvastatin 20mg PO QHS -hypoglycemia protocol in place Hypothyroidism -chronic, controlled -endocrine on board; cont Levothyroxine 25 mcg PO QD Restless leg syndrome -chronic -continue home medications: Clonazepam 0.5 mg PO QD Depression -chronic, controlled -continue home medications: Buspirone 10mg PO Q12 -c/w Aripiprazole 5mg PO QHS -will decrease abilify per Neuro recs to decrease seizure threshold Multiple Myeloma -chronic -continue home medications: Dexamethasone 20mg once a week on mondays, Hydrocortisone 10mg PO QHS -patient follow regularly with heme/onc Dr. Vilchis -Hem/Onc on case while inpatient -recs appreciated; may need to dose reduce lenalidomide due to hypocalcemia, outpatient f/u Anemia -acute on chronic, likely secondary to multiple myeloma -Hb/Hct 8.4/25.6 -cont to monitor DVT prophylaxis -Heparin SC
[2017-08-23] MEDS ORDERED: Magnesium Sulfate 1 GM in Dextrose 5% In Water 100 ML IVPB ONE ×2 (10:30→22:55)
--- NOTE | 2017-08-23 11:33 | CARD ---
APPROVED REPORT EKG Measurement Heart [id number] IN 130P58 [id number] <Conclusion> Normal sinus rhythm Possible Left atrial enlargement Nonspecific ST and T wave abnormality Prolonged QT Abnormal ECG
--- NOTE | 2017-08-23 11:38 | CARD ---
APPROVED REPORT EKG Measurement Heart [id number] ME [id number] <Conclusion> Normal sinus rhythm Possible Left atrial enlargement T wave abnormality, consider anterior ischemia Prolonged QT Abnormal ECG
[2017-08-23] MEDS ORDERED: Insulin Lispro (humaLOG) 100 Units/ml Inj SC SCH (16:30)
[2017-08-23] MEDS ORDERED: Sodium Chloride 0.9% 500 ML IV SCH (17:45)
[2017-08-23 17:49] LABS: ABG ALLEN TEST YES; ARTERIAL BLOOD GAS HCO3 27.9 mmol/L (21-28); ARTERIAL BLOOD GAS HEMOGLOBIN 9.5 g/dL (11.7-17.4); ARTERIAL BLOOD GAS O2 CAPACITY 13.5 mL/dL (16-24); ARTERIAL BLOOD GAS O2 CONTENT 12.8 ML/dL (15-23); ARTERIAL BLOOD GAS O2 SAT 94.7 % (95-98); ARTERIAL BLOOD GAS PCO2 38 mm/Hg (35-45); ARTERIAL BLOOD GAS PH 7.47 (7.35-7.45); ARTERIAL BLOOD GAS PO2 97 mm/Hg (80-100); ARTERIAL BLOOD GAS TCO2 28.9 mmol/L (22-28)
--- NOTE | 2017-08-23 18:56 | CT ---
PROCEDURE: CT HEAD WITHOUT CONTRAST. HISTORY: Syncope,, seizure like episode, Altered COMPARISON: Comparison made with CT scan brain 08/19/2017 TECHNIQUE: Axial computed tomography images were obtained through the head/brain without intravenous contrast. Radiation dose: Total exam DLP = 744.01 mGy-cm. This CT exam was performed using one or more of the following dose reduction techniques: Automated exposure control, adjustment of the mA and/or kV according to patient size, and/or use of iterative reconstruction technique. FINDINGS: HEMORRHAGE: No acute parenchymal, subarachnoid or extra-axial in intracranial hemorrhage. BRAIN: Mild chronic periventricular white matter ischemic changes again seen. . No evidence of large acute infarct. Note that the possibility of a small hyperacute infarct cannot be completely excluded. . Vrsc-bm-srxbhizy generalized volume loss. VENTRICLES: No obstructive hydrocephalus. CALVARIUM: No acute calvarial fractures. PARANASAL SINUSES: Mild mucosal thickening right chamber sphenoid sinus. The remaining visualized paranasal sinuses clear. MASTOID AIR CELLS: Mastoid air complexes are underpneumatized and sclerotic unchanged from prior exam. OTHER FINDINGS: Changes of bilateral cataract surgery again noted IMPRESSION: Mild chronic periventricular white matter ischemic changes again seen. . No evidence of large acute infarct. Note that the possibility of a small hyperacute infarct cannot be completely excluded. . Vshh-rq-zdxrepio generalized volume loss.
--- NOTE | 2017-08-23 19:18 | PN ---
DATE: 08/23/2017 ENDO FOLLOWUP NOTE LOCATION: In ICU, room 431. SUBJECTIVE: This is a 71-year-old female with recent uncontrolled type 2 insulin-requiring diabetes, presenting here with a syncopal episode and also now was found to have symptomatic hypocalcemia with neuromuscular agitation and irritability as noted thereof. She received intensive calcium bolus injections and maintenance infusion as given thereof. Her latest chemistry showed a BUN of 27, sodium 140, potassium 5.2, chloride 105, CO2 of 24, glucose 119, and creatinine 0.9. Her glucose levels range from 123 to 203 mg/dL. Her latest calcium level is now 7.8 with an albumin level of 2.9 with a corrected calcium of 8.9 mg/dL. PLAN OF MANAGEMENT: At this time, we will continue the same calcium and vitamin D supplementation with calcitriol given as 0.5 mcg b.i.d. and calcium carbonate given as 500 mg b.i.d. as ordered. We will titrate incrementally as indicated to optimize metabolic control. We actually have held off on the basal and bolus insulin dose regimen as ordered glycemic fluctuations have improved remarkably both clinically and biochemically thereof. We will concur with holding the Humalog and basal insulin as given, but to continue the low-dose correction scale using Humalog insulin as ordered. We will follow. Irene Mann MD
[2017-08-23 20:33] LABS: BLOOD UREA NITROGEN 22 mg/dl (7-17); GFR AFRICAN-AMERICAN > 60; GFR NON-AFRICAN AMERICAN > 60
--- NOTE | 2017-08-23 20:50 | PN ---
DATE: 08/23/2017 CRITICAL CARE PROGRESS NOTE LOCATION: Patient in ICU, bed 431. TIME SPENT: 35 minutes. The patient is seen and evaluated at the bedside. Past medical, surgical, family, and social history are reviewed and as noted in the H and P. SUBJECTIVE: A 71-year-old female admitted with syncopal episode; questionable seizure; history of chronic obstructive lung disease; obstructive sleep apnea; pulmonary hypertension, on home oxygen and CPAP machine; also with multiple myeloma, on treatment; secondary adrenal insufficiency, on steroid supplement; hypothyroidism, on levothyroxine; diabetes mellitus type 2, on basal and Humalog insulin. Overnight, remained afebrile, normotensive. Telemetry, sinus rhythm. This morning, alert, awake, and follows commands appropriate. Denies chest pain and palpitations, less short of breath. No abdominal discomfort. No diarrhea. No dysuria. Shaking of both upper and lower extremities, more on the lower than upper. Denies fever and chills. PHYSICAL EXAMINATION: VITAL SIGNS: Temperature 98.5, heart rate 82 and regular, blood pressure 130/56, mean arterial pressure 80, respiratory rate 19, oxygen saturation 94% on oxygen supplement 2 L, intake 1090, output 2600, negative balance 1510. Weight 198 pounds. HEAD, EYES, EARS, NOSE, AND THROAT: Pupils are reactive. Conjunctivae pink. Sclerae white. NECK: Supple. Trachea is central. CHEST: Bilateral breath sounds. Clear to auscultation. HEART: Rhythm regular. S1 and S2 normal. No audible murmur. ABDOMEN: Bowel sounds present. Soft. EXTREMITIES: No clubbing, cyanosis, or edema. NEUROLOGIC: Involuntary movement of both upper and lower extremities. No cranial nerve deficit. No motor deficit. Sensory impairment could not be tested. CURRENT MEDICATIONS: Acetylcysteine 2 mL via nebulizer b.i.d. albuterol/Atrovent inhalation 0.5 mg four times daily, Abilify 5 mg p.o at bedtime, Ecotrin 81 mg daily, BuSpar 10 mg p.o. at bedtime, Decadron 20 mg p.o. once a week, Vasotec 2.5 mg p.o. daily, Lasix 20 mg p.o. every 48 hours, and heparin sodium 5000 units subcu every 8 hours. LABORATORY DATA: WBC 3.9, hemoglobin 8.7, hematocrit 26.6, platelet count 227. ABG, pH 7.35, pCO2 of 31, pO2 of 41, oxygen saturation 59. SMA-7: Sodium 140, potassium 5.2, chloride of 105, CO2 of 24, blood urea nitrogen 27, creatinine 0.7, random glucose 123 to 203 mg. Hemoglobin A1c pending. Calcium 7.8, magnesium 1.3, AST 30, ALT 76, total bilirubin 0.6, total protein 5.7, and albumin 2.9. Microbiology: Stool culture, no growth reported. Urine culture, no growth. Nasal smear, MRSA negative. Blood culture, no growth reported. RADIOLOGICAL DATA: CT head: No acute intracranial findings. MRI of the brain could not be done due to the presence of metal in her ankle. IMPRESSION: 1. Neurologic: Admitted with altered mental status, questionable syncope versus seizure disorder. No further recurrence in the hospital noted. 2. Hypocalcemia, on supplement. 3. Suspected adrenal insufficiency, on steroid. 4. Hypothyroidism, on levothyroxine supplement. 5. Pulmonary: No acute issues. 6. Noted to have recurrent diarrhea. l check stool for Clostridium difficile. Add Flagyl 500 mg p.o. every 8 hours. 7. Endocrine: Continue bolus and basal insulin. Maintain blood sugar below 180. Closely monitor hemoglobin A1c. 8. History of multiple myeloma, in remission. We appreciate follow up by oncology consult. 9. Keep head of bed 30 degree up. 10. History of Parkinson's disease versus extrapyramidal effects from the antipsychotic medications. Continue feeding as tolerated. Follow recommendations of Neurology. Norberto Mari MD MTDD
[2017-08-23] MEDS: Insulin Detemir 100 Units/ml Inj SC SCH (21:13)
[2017-08-23] MEDS ORDERED: Magnesium Sulfate 1 GM in Dextrose 5% In Water 100 ML IV ONE (21:15)
[2017-08-23] MEDS ORDERED: Sodium Chloride 0.9% 500 ML IV ONE (21:23)
[2017-08-24] MEDS: Albuterol-Ipratrop 3 mg / 0.5 (3 ml) UD INH SCH ×4 (01:00→19:10)
[2017-08-24 05:39] LABS: BASO % 0.6 % (0.0-2.0); EOS # 0.1 K/uL (0.0-0.7); EOS % 1.4 % (0.0-4.0); HEMOGLOBIN 9.6 g/dL (12.0-16.0); LYMPH # 0.4 K/uL (1.0-4.3); LYMPH % 10.4 % (20.0-40.0); MEAN CELL VOLUME 90.2 fl (81.0-99.0); MEAN CORPUSCULAR HEMOGLOBIN 29.3 pg (27.0-31.0); MEAN CORPUSCULAR HGB CONC 32.5 g/dL (33.0-37.0); MEAN PLATELET VOLUME 9.7 fl (7.2-11.7); MONO # 0.6 K/uL (0.0-0.8); MONO % 15.8 % (0.0-10.0); NEUT # 2.9 K/uL (1.8-7.0); NEUT % 71.8 % (50.0-75.0); NRBC % 0.3 % (0.0-0.0); RBC 3.3 Mil/uL (3.80-5.20); RED CELL DISTRIBUTION WIDTH 17.3 % (11.5-14.5)
[2017-08-24 05:58] LABS: T4 3.56 ug/dl (5.5-11.0)
[2017-08-24] MEDS: Levothyroxine 25 MCG TAB PO SCH (06:08)
[2017-08-24 06:09] LABS: ALT/SGPT 22 U/L (9-52); AST/SGOT 15 U/L (14-36); BLOOD UREA NITROGEN 18 mg/dl (7-17); CALCIUM 8.1 mg/dL (8.4-10.2); GFR AFRICAN-AMERICAN > 60; GFR NON-AFRICAN AMERICAN > 60
[2017-08-24] MEDS: Insulin Lispro (humaLOG) 100 Units/ml Inj SC SCH ×7 (07:30→21:51)
[2017-08-24] MEDS: Acetylcysteine 20% Inhal Soln (4ml) INH SCH ×2 (07:36→19:10)
--- NOTE | 2017-08-24 08:21 | CON ---
DATE: 08/23/2017 REFERRING PHYSICIAN/REQUESTING CONSULTATION: Josefa Piña DO HISTORY OF PRESENT ILLNESS: Mrs. Dorie Perkins is a 71-year-old female with extensive past medical history significant for diabetes, COPD, multiple myeloma, rheumatoid arthritis, who presents to [facility] on the day of admission 08/19/2017 with an episode of loss of consciousness with trauma about her right lip and face. The patient had prodromal symptoms of dizziness prior to the fall and found to be incontinent of bowel after being revived. The patient was seen in consultation by Dr. Josefa Piña, who referred her for an electrophysiology consultation in regards to finding of prolonged QT interval/syncope. The patient is seen and examined this morning in consultation in the ICU. The patient did undergo in the past, which included a cardiac catheterization, which was done on 10/20/[address] Cady Angel, which was notable for nonobstructive coronary disease. Echocardiogram was done in 05/2017, which was notable for normal LV size, normal ventricular systolic function, grade 1 diastolic pattern with mild paradoxical septal motion. Right ventricle appeared mildly dilated. Right ventricular wall thickness. No mitral regurgitation or stenosis. Tricuspid valve appears to be of normal structure and function. Pulmonic valve appears to be within normal limits. Aortic root also appeared to be within normal limits. Ejection fraction is 55 to 70%. PAST MEDICAL HISTORY: As previously mentioned, significant for multiple myeloma, multiple history of fractures, insulin-dependent diabetes mellitus, hypertension, pulmonary hypertension, COPD, history of pulmonary embolus, status post IVC filter in 2014, gastroesophageal reflux disease and depression. PAST SURGICAL HISTORY: Significant for cholecystectomy, tonsillectomy, and IVC filter. FAMILY HISTORY: Noncontributory. SOCIAL HISTORY: Negative for tobacco, EtOH, or drug abuse. LABORATORY DATA: On review of relevant blood work, the patient has a white count of 3.9, H and H of 8.7 and 26.6, platelets of 227. Sodium of 140, potassium of 5.2, calcium levels have been low with values of 7.8 followed by 8, magnesium is also low at 1.2 and 1.3. ALT and AST is within normal limits. Total protein is 5.7, globulin is 2.8. C. diff is negative. REVIEW OF SYSTEMS: Denies significant weight changes. She is able to ambulate limited distances as per the patient due to history of chills prior to her coming in. On review of EENT, significant baseline cough and congestion. No blurry vision. No visual disturbances. No baseline dizziness. No skin changes. There are times with intermittent chest discomfort, baseline shortness of breath requiring O2 via nasal canula, CPAP at night, chronic lower extremity edema and history of syncope. PULMONARY: Aforementioned chronic cough, no hemoptysis 1240 aforementioned three days history of diarrhea, poor p.o. intake, and abdominal pain. The patient is baseline incontinent of urine. The patient has chronic arthralgias with the aforementioned fractures. She does have intermittent headaches and a headache following her fall, generalized deconditioning is noted. No confusion or numbness. No anxiety or depressive features at this time. CURRENT MEDICATIONS: Include acetylcysteine, albuterol, ipratropium pump, aripiprazole 5 mg p.o. at bedtime, aspirin 81 mg p.o. daily, buspirone 10 mg p.o. daily, calcitriol or Rocaltrol 0.5 mcg p.o. b.i.d., clonazepam 0.5 mg p.o. p.r.n., Depakote 250 mg p.o. b.i.d., enalapril maleate 2.5 mg p.o. daily, Lasix 20 mg every 24 hours, glucagon as needed, heparin 5000 units subcu every 8 hours. Review of EKG shows normal sinus rhythm and 84 beats per minute. Left atrial abnormality is noted. There are some slurring that may be consistent with delta waves with a preserved relatively normal axis, somewhat normal-appearing transition, which may be consistent with perhaps the septal pathway. T-wave inversions throughout the precordium were noted, appeared to be somewhat dynamic compared to prior EKGs. QT is prolonged, greater than half the R-R interval with values of 438 and 517 milliseconds respectively. PHYSICAL EXAMINATION: VITAL SIGNS: The patient's temperature is 98.5, pulse of 82, blood pressure is 130/56. GENERAL: She is a somewhat ill-appearing, but very pleasant female in no acute distress, able to speak in complete sentences. She is alert and oriented. HEENT: Head is normocephalic and atraumatic. There is no ga facial asymmetry. She does appear somewhat plethoric. NECK: Supple. CHEST: Clear to auscultation bilaterally. CARDIOVASCULAR: Regular rate and rhythm. S1 and S2. No S3 or S4. ABDOMEN: Soft, obese, nontender, and nondistended. Positive bowel sounds. EXTREMITIES: No cyanosis or clubbing. There is 1 to 2+ lower extremity edema in lower extremities. ASSESSMENT AND PLAN: 1. Long QT. The patient does have a finding of long QT. It is unclear whether this represents congenital long QT syndrome. The patient is of advanced age and does have significant electrolyte abnormalities in the form of hypomagnesemia and hypocalcemia, but it deemed to be corrected. There was some history, which did reveal that the patient had a cardiac arrest in the past. Certainly, further evaluation is necessary. If the patient has a history of cardiac arrest or malignant syncope that linked to QT prolongation, the patient may be a candidate for perhaps defibrillator. These eventualities were discussed with her in detail. All questions were answered. 2. Hypomagnesemia, hypocalcemia, which is in the process of being replaced. 3. Syncope or loss of consciousness of unclear etiology. The patient has undergone structural heart disease in the past. It is unclear if the patient develops life threatening arrhythmia albeit to encounter any support. If the patient is found to have QT prolongation despite normalization of electrolyte status, the patient may require a defibrillator per the primary prevention of sudden cardiac . 4. Atrial fibrillation. Atrial fibrillation was reported on admission, will need to be looked in through further. It is unclear whether this patient would be a candidate for further intervention or anticoagulation. 5. I will discuss the case further with Dr. Josefa Piña as her clinical case unfolds. Thank you for allowing me to participate in the care of your patient. Please do not hesitate to call if you have any questions in regards to her care. A total of 60 minutes were spent in review, education, and coordination of care of this patient. The patient was seen in the ICU. Phillip Dickerson MD
--- NOTE | 2017-08-24 08:32 | CP.PCM.PN ---
Subjective - Date & Time of Evaluation Date of Evaluation: 08/24/17 Time of Evaluation: 08:31 - Subjective Subjective: Yesterday pt had a total of 5x loose BM. Was given 1L IVF. No acute overnight events. No diarrhea this morning. Pt awake alert but not oriented to year or location. Objective - Vital Signs/Intake and Output Vital Signs (last 24 hours): Temp Pulse Resp BP Pulse Ox 98.3 F 74 17 148/62 100 08/24/17 08:00 08/24/17 08:00 08/24/17 08:00 08/24/17 08:00 08/24/17 08:00 Intake and Output: 08/24/17 08/24/17 06:59 18:59 Intake Total 1000 Output Total 3300 Balance -2300 - Medications Medications: Current Medications Acetylcysteine (Acetylcysteine 20%) 2 ml INH RBID [facility] Last Admin: 08/24/17 07:36 Dose: 2 ml Albuterol/Ipratropium (Duoneb 3 Mg/0.5 Mg (3 Ml) Ud) 3 ml INH RQ4 PRN PRN Reason: Shortness of Breath Last Admin: 08/21/17 17:00 Dose: 3 ml Albuterol/Ipratropium (Duoneb 3 Mg/0.5 Mg (3 Ml) Ud) 3 ml INH RQ6 [facility] Last Admin: 08/24/17 07:36 Dose: 3 ml Alprazolam (Xanax) 0.5 mg PO Q8 PRN PRN Reason: Anxiety Aripiprazole (Abilify) 5 mg PO HS [facility] Last Admin: 08/23/17 21:08 Dose: 5 mg Aspirin (Ecotrin) 81 mg PO DAILY [facility] Last Admin: 08/23/17 08:22 Dose: 81 mg Buspirone HCl (Buspar) 10 mg PO Q12@1000,2200 [facility] Last Admin: 08/23/17 21:08 Dose: 10 mg Calcitriol (Rocaltrol) 0.5 mcg PO BID [facility] Last Admin: 08/23/17 17:30 Dose: 0.5 mcg Calcium Carbonate (Oscal) 500 mg PO BIDWM [facility] Last Admin: 08/23/17 17:30 Dose: 500 mg Clonazepam (Klonopin) 0.5 mg PO DAILY PRN PRN Reason: Anxiety Last Admin: 08/23/17 21:18 Dose: 0.5 mg Dexamethasone (Decadron) 20 mg PO MON [facility] Last Admin: 08/23/17 09:33 Dose: Not Given Dextrose (Dextrose 50% Inj) 0 ml IV STAT PRN; Protocol PRN Reason: Hypoglycemia Protocol Last Admin: 08/22/17 17:17 Dose: 50 ml Dextrose (Glutose 15) 0 gm PO ONCE PRN; Protocol PRN Reason: Hypoglycemia Protocol Divalproex Sodium (Depakote Dr(*Bid*)) 250 mg PO BID [facility] Last Admin: 08/23/17 17:25 Dose: 250 mg Enalapril Maleate (Vasotec) 2.5 mg PO DAILY [facility] Furosemide (Lasix) 20 mg PO Q48H [facility] Last Admin: 08/23/17 22:54 Dose: 20 mg Glucagon (Glucagen Diagnostic Kit) 0 mg IM STAT PRN; Protocol PRN Reason: Hypoglycemia Protocol Heparin Sodium (Porcine) (Heparin) 5,000 units SC Q8 [facility] PRN Reason: Protocol Last Admin: 08/24/17 01:28 Dose: 5,000 units Home Med (Riociguat [Adempas]) 2 mg PO TID [facility] Last Admin: 08/23/17 17:30 Dose: 2 mg Hydrocortisone (Cortef) 10 mg PO HS [facility] Last Admin: 08/23/17 21:08 Dose: 10 mg Insulin Detemir (Levemir) 12 units SC HS [facility] Last Admin: 08/23/17 21:13 Dose: 12 units Insulin Human Lispro (Humalog) 0 units SC ACHS [facility] Last Admin: 08/23/17 22:26 Dose: Not Given Insulin Human Lispro (Humalog) 4 units SC AC [facility] Last Admin: 08/23/17 17:27 Dose: Not Given Levothyroxine Sodium (Synthroid) 25 mcg PO DAILY@0630 [facility] Last Admin: 08/24/17 06:08 Dose: 25 mcg Magnesium Oxide (Mag-Ox) 400 mg PO DAILY [facility] Metformin HCl (Glucophage) 500 mg PO BID [facility] Last Admin: 08/23/17 17:26 Dose: 500 mg Metoprolol Tartrate (Lopressor) 25 mg PO Q12 [facility] Last Admin: 08/23/17 21:09 Dose: 25 mg Metronidazole (Flagyl) 250 mg PO Q8 [facility] PRN Reason: Protocol Last Admin: 08/24/17 01:27 Dose: 250 mg Pantoprazole Sodium (Protonix Ec Tab) 40 mg PO DAILY [facility] Last Admin: 08/23/17 08:20 Dose: 40 mg Promethazine HCl (Phenergan Syrup) 6.25 mg PO Q6 PRN PRN Reason: Cough Last Admin: 08/23/17 08:19 Dose: 6.25 mg - Labs Labs: 08/24/17 04:35 08/24/17 04:35 - Constitutional Appears: No Acute Distress, Other (breathing tx with mask, NC on 5L ) - Eye Exam Eye Exam: EOMI - ENT Exam ENT Exam: Mucous Membranes Moist - Respiratory Exam Respiratory Exam: Clear to Ausculation Bilateral, NORMAL BREATHING PATTERN. absent: Wheezes - Cardiovascular Exam Cardiovascular Exam: REGULAR RHYTHM, +S1, +S2 - GI/Abdominal Exam GI & Abdominal Exam: Soft, Normal Bowel Sounds. absent: Tenderness - Extremities Exam Extremities Exam: absent: Calf Tenderness, Pedal Edema Additional comments: Tremor at rest, not with action. tremor decrease in upper extremities. Lower extremity tremor R>L - Neurological Exam Neurological Exam: Alert, Awake. absent: Oriented x3 - Psychiatric Exam Psychiatric exam: Normal Affect, Normal Mood Assessment and Plan - Assessment and Plan (Free Text) Assessment: Assessment/Plan: 71 YO female with multiple co-morbidities (PMHx including Multiple Myeloma, hx of multiple fractures (recent left hip fracture), IDDM type 2, HTN, Pulm HTN, COPD on home oxygen and CPAP, hx of PE s/p IVC filter in 2014) is admitted for unwitnessed syncope and SIRS. Unwitnessed syncopal episode -acute on chronic (hx multiple episode of dizziness, multiple falls); r/o seizure -Head CT w/o contrast: No acute ICH abnormality, small lucencies of skull concerning for metastatic disease or multiple myeloma-unchanged from 09/2016 -EKG: sinus tachycardia at 104 bpm with T wave inversions (unchanged from past EKG's) -troponin x2 neg -prior catheterizations showed normal coronaries with Pulm HTN (most recent 10/20) -Echo 05/11/17: normal LVEF 65-70% with mild paradoxical septal motion -Neurology on consult c/w [place] -low prolactin -f/u MRI of brain, EEG; pending -CT head 08/23: no acute changes noted Hypocalcemia, Prolong QTC -improving -likely 2/2 to multiple myleoma tx medication -serum calcium 5.0 on admission -s/p 2x IV calcium gluconate x 24/48 hrs per Endo -Endocrinology on consult; cont levo, IVF maintenance 48hrs, trend Calcium, CaCO3 500mg BID, Calcitriol 0.5mg BID, TSH -Cardiology on consult; EP consult, daily EKGs, Mg replaced to avoid Torsades -EKG: sinus tachycardia at 104 bpm with T wave inversions (unchanged from past EKG's); QTc 526 -EKG 08/22; QTc 484, QTc improving -EKG 08/23: Qtc 469. Qtc improving -calcium today 8.1, corrected is 8.5 -EP; Dr. Burnett consulted; pt may require defib later, correct electrolytes and follow up EKG -repeat EKG today Hypomagnesemia -resolved -Mg today 1.3-->1.6 -s/p Mgsulfate 1gm today Chest pain -improving -chest pain likely 2/2 to acute trauma -EKG: sinus tachycardia at 104 bpm with T wave inversions (unchanged from past EKG's); QTc 526 -prior catheterizations showed normal coronaries with Pulm HTN (most recent 10/20) -Echo 05/11/17: normal LVEF 65-70% with mild paradoxical septal motion -troponin 0.1520, 2nd and 3rd trop neg -pro BNP 56524 -Cardiology on consult; EP consult, daily EKGs, Mg replaced to avoid Torsades -EP; Dr. Burnett consulted; pt may require defib later, correct electrolytes and follow up EKG COPD -chronic, stable -Methylprednisolone 125mg IVP once given in ED -VBG: pH 7.35, pO2 31, pCO2 41, HCO3 21.5, Lactate 1.8 -continue home medications: Duoneb INH solution Q4 PRN SOB -continue home regimen: 2L supplemental O2 via nasal cannula during the day, CPAP at night -Pulmonary consulted; cont current meds Pulmonary HTN -chronic, stable -c/w home medications: Furosemide 20 mg PO Q48H -pt not on home Riociguat 2mg, never picked up rx per pharmacy -Meds verified with pharmacy, [facility] -c/w Riociguat 2mg PO TID -Pulmonary consulted;follow up recs HTN -chronic, controlled -held home medication due to hypotension on admission: Enalapril 2.5mg PO QD -c/w with Aspirin 81 mg PO QD -monitor BP IDDM type 2 -chronic, controlled -HbA1c 8.6 (08/21) -continue home medications: Insulin Levemir 14 units SC QAM, Insulin Levemir 10 units SC QPM, Insulin Lispro 5 units SC TID with meals, Metformin 500mg PO BID, Atorvastatin 20mg PO QHS -hypoglycemia protocol in place Hypothyroidism -chronic, controlled -endocrine on board; cont Levothyroxine 25 mcg PO QD Restless leg syndrome -chronic -continue home medications: Clonazepam 0.5 mg PO QD Depression -chronic, controlled -continue home medications: Buspirone 10mg PO Q12 -c/w Aripiprazole 5mg PO QHS -will decrease abilify per Neuro recs to decrease seizure threshold Multiple Myeloma -chronic -continue home medications: Dexamethasone 20mg once a week on mondays, Hydrocortisone 10mg PO QHS -patient follow regularly with heme/onc Dr. Vilchis -Hem/Onc on case while inpatient -recs appreciated; may need to dose reduce lenalidomide due to hypocalcemia, outpatient f/u Anemia -acute on chronic, likely secondary to multiple myeloma -Hb/Hct 9.6/29.7 -cont to monitor DVT prophylaxis -Heparin SC
--- NOTE | 2017-08-24 08:55 | CARD ---
APPROVED REPORT EKG Measurement Heart [id number] <Conclusion> Normal sinus rhythm Possible Left atrial enlargement Nonspecific ST and T wave abnormality Abnormal ECG
[2017-08-24] MEDS ORDERED: Magnesium Oxide 400 mg Tab UD PO SCH (09:00)
--- NOTE | 2017-08-24 09:33 | PQF ---
CDI RESPONSE TEXT: Patient does not currently have SIRS, non-infectious without organ dysfunction. CDI QUERY TEXT: SIRS Underlying Cause Systemic Inflammatory Response Syndrome (SIRS) is documented in the Medical Record. Please specify th e underlying cause (includes suspected or probable) Such as: -- Infectious cause / process - With organ dysfunction -- Non-infectious cause / process - Without organ dysfunction - With organ dysfunction -- Other, please specify The patient's Clinical Indicators include: 97/55, 104, 20, 101.3, in the ER. Patient presents with + headache, body weakness, cough, chills, mild chest pain, dizziness. Given Zo syn in the ER. Blood CS No growth, Urine CS: No growth, Stool CS preliminary No growth CXR: Questionable interval mild pulmonary vascular congestion. Stable cardiomegaly. Elevated right he midiaphragm again evident likely crowding the medial basilar bronchovascular markings though limited medial basilar atelectasis is not excluded. WBC 9.1 with a L shift, 2% BANDS, Procalcitonin 0.28, Lactate 1.8. Query created by: Tamar Garcia on 08/24/2017 6:47 AM Electronically signed by: Sapphire Salcedo 08/24/2017 9:31 AM
[2017-08-24] MEDS: Divalproex 250 mg DR(BID formulation) PO SCH (09:36)
[2017-08-24] MEDS: Pantoprazole 40 mg EC Tab PO SCH (09:38)
--- NOTE | 2017-08-24 10:22 | PQF ---
CDI RESPONSE TEXT: Ruled out CDI QUERY TEXT: Conflicting Documentation Clarification A single mention or documentation of multiple diagnoses ( NSTEMI, and R/O ACS ) for the same clinica l presentation appears in the record. Please document if the NSTEMI and R/O ACS is: -- Confirmed and current -- Confirmed, treated and resolved -- Ruled out -- Other, please specify The patient's Clinical Indicators include: Patient presents with syncope, light headedness, chills, mild chest pain, headache, body weakness and diarrhea. ER MD has a diagnosis of NSTEMI Dr. Hope: One troponin was elevated. Dr. Piña: T wave inversion and abnormal QT interval on EKG FPT: : Chest pain likely 2* acute trauma, R/O ACS EKG: NSR, Possible LAE, T wave abnormality consider inferior and anterolateral ischemia, prolonged QT Query created by: Tamar Garcia on 08/24/2017 6:40 AM Electronically signed by: Sapphire Salcedo 08/24/2017 10:20 AM
--- NOTE | 2017-08-24 10:22 | PQF ---
CDI RESPONSE TEXT: Chronic, diastolic CDI QUERY TEXT: CHF Acuity and Type Congestive Heart Failure is documented in the Medical Record. Please document the type and acuity (in cludes probable or suspected) Such as: Type: -- Systolic -- Diastolic -- Combined -- Other, please specify Acuity: -- Acute -- Chronic -- Acute on chronic -- Other, please specify The patient's Clinical Indicators include: There is documentation of a history of CHF. Patient is on Lasix po and the Vasotec is now on hold ECHO 05/11/17: EF:65-70%, Grade I abnormal relaxation pattern. Pro BNP on 08/20/17: 17,500 Query created by: Tamar Garcia on 08/24/2017 7:00 AM Electronically signed by: Sapphire Salcedo 08/24/2017 10:20 AM
--- NOTE | 2017-08-24 10:22 | PQF ---
CDI RESPONSE TEXT: RUSSELL, resolved now CDI QUERY TEXT: Clarification of Clinical Diagnostic Findings Please clarify if there is an associated diagnosis or not to go along with the BUN, Creatinine and GF R. Please clarify documentation or clinical relevance for the clinical / diagnostic findings or whether those are insignificant or unable to be further specified. The patient's Clinical Indicators include: Admitted with syncope, diarrhea, headache, body weakness, cough, chills, mild chest pain, dizziness. BUN 28, 34, 39, 33, --> 18 Creatinine 1.2, 1.4, 1.5, --> 0.7 GFR 44, 37, 34, 55, --> 60 Treated with IVF. Query created by: Tamar Garcia on 08/24/2017 6:55 AM Electronically signed by: Sapphire Salcedo 08/24/2017 10:20 AM
--- NOTE | 2017-08-24 11:29 | CP.CCUPN ---
<JamisonYoni - Last Filed: 08/24/17 12:51> CCU Subjective - Physician Review Subjective (Free Text): 08/24/17 12:19 Patient seen at bedside this AM. Alert and able to follow commands. Has episodes where her speech is nonexistent for few seconds, as per patient she forgets what to say. Afebrile. Had 2-3 soft BM Yesterday. No BM so far today. C/ O feeling "wheezy". Ate some breakfast this AM. CCU Objective - Vital Signs / Intake & Output Vital Signs (Last 4 hours): Vital Signs Temp Pulse Resp BP Pulse Ox 08/24/17 10:00 89 22 163/85 H 95 08/24/17 09:37 84 148/62 08/24/17 08:00 98.3 F 74 17 148/62 100 Intake and Output (Last 8hrs): Intake & Output 08/23/17 08/24/17 08/24/17 22:59 06:59 14:59 Intake Total 750 1000 20 Output Total 700 3300 Balance 50 -2300 20 Weight 194 lb Intake: IV 600 500 20 Intake, Piggyback 200 Oral 150 300 Output: Urine 700 2400 Urethral (Maldonado) 700 2400 Stool 900 Other: # Bowel Movements 1 - Physical Exam Head: Positive for: Atraumatic, Normocephalic Pupils: Positive for: PERRL Extroacular Muscles: Positive for: EOMI Conjunctiva: Positive for: Normal Mouth: Positive for: Dry (Slightly) Nose (External): Positive for: Atraumatic Neck: Negative for: JVD, Lymphadenopathy Respiratory/Chest: Positive for: Decreased Breath Sounds. Negative for: Respiratory Distress, Accessory Muscle Use, Wheezes Cardiovascular: Positive for: Regular Rate and Rhythm, Normal S1, S2. Negative for: Tachycardic, Gallop Abdomen: Positive for: Normal Bowel Sounds. Negative for: Tenderness, Distention, Peritoneal Signs, Guarding Upper Extremity: Positive for: Capillary Refill < 2s. Negative for: Edema, Swelling, Erythema Lower Extremity: Positive for: Capillary Refill < 2 s. Negative for: Edema, Swelling, Erythema Neurological: Positive for: Other (Tremor that seems better at rest. Unable to determine if aphasic at times. Memory loss). Negative for: Gait Normal Skin: Positive for: Dry Psychiatric: Positive for: Alert - Medications Active Medications: Active Medications Generic Name Dose Route Start Last Admin Trade Name Freq PRN Reason Stop Dose Admin Acetylcysteine 2 ml 08/21/17 20:00 08/24/17 07:36 Acetylcysteine 20% INH 2 ml RBID MARISABEL Administration Albuterol/Ipratropium 3 ml 08/20/17 05:01 08/21/17 17:00 Duoneb 3 Mg/0.5 Mg (3 Ml) Ud INH 3 ml RQ4 PRN Administration Shortness of Breath Albuterol/Ipratropium 3 ml 08/20/17 14:00 08/24/17 07:36 Duoneb 3 Mg/0.5 Mg (3 Ml) Ud INH 3 ml RQ6 MARISABEL Administration Alprazolam 0.5 mg 08/23/17 21:40 Xanax PO Q8 PRN Anxiety Aripiprazole 5 mg 08/20/17 22:00 08/23/17 21:08 Abilify PO 5 mg HS MARISABEL Administration Aspirin 81 mg 08/20/17 09:00 08/24/17 09:39 Ecotrin PO 81 mg DAILY MARISABEL Administration Buspirone HCl 10 mg 08/20/17 22:00 08/24/17 09:39 Buspar PO 10 mg Q12@1000,2200 MARISABEL Administration Calcitriol 0.5 mcg 08/20/17 17:00 08/24/17 09:41 Rocaltrol PO 0.5 mcg BID MARISABEL Administration Calcium Carbonate 500 mg 08/21/17 17:00 08/24/17 09:38 Oscal PO 500 mg BIDWM MARISABEL Administration Clonazepam 0.5 mg 08/19/17 23:45 08/23/17 21:18 Klonopin PO 0.5 mg DAILY PRN Administration Anxiety Dexamethasone 20 mg 08/23/17 09:00 08/23/17 09:33 Decadron PO Not Given MON MARISABEL Dextrose 0 ml 08/20/17 00:06 08/22/17 17:17 Dextrose 50% Inj IV 50 ml STAT PRN Administration Hypoglycemia Protocol Protocol Dextrose 0 gm 08/20/17 00:06 Glutose 15 PO ONCE PRN Hypoglycemia Protocol Protocol Dimethicone 1 applic 08/24/17 17:00 Proshield Plus Skin Protectant TOP Q8 MARISABEL Divalproex Sodium 250 mg 08/20/17 17:00 08/24/17 09:[address](*Bid*) PO 250 mg BID MARISABEL Administration Enalapril Maleate 2.5 mg 08/20/17 09:00 Vasotec PO DAILY MARISABEL Furosemide 20 mg 08/19/17 23:45 08/23/17 22:54 Lasix PO 20 mg Q48H MARISABEL Administration Glucagon 0 mg 08/20/17 00:06 Glucagen Diagnostic Kit IM STAT PRN Hypoglycemia Protocol Protocol Heparin Sodium (Porcine) 5,000 units 08/22/17 01:00 08/24/17 09:39 Heparin SC 5,000 units Q8 MARISABEL Administration Protocol Home Med 2 mg 08/20/17 09:00 08/24/17 09:38 Riociguat [Adempas] PO 2 mg TID MARISABEL Administration Hydrocortisone 10 mg 08/19/17 23:45 08/23/17 21:08 Cortef PO 10 mg HS MARISABEL Administration Insulin Detemir 12 units 08/23/17 22:00 08/23/17 21:13 Levemir SC 12 units HS MARISABEL Administration Insulin Human Lispro 0 units 08/20/17 22:00 08/24/17 09:40 Humalog SC Not Given ACHS MARISABEL Insulin Human Lispro 4 units 08/23/17 16:30 08/24/17 07:30 Humalog SC Not Given AC MARISABEL Levothyroxine Sodium 25 mcg 08/23/17 06:30 08/24/17 06:08 Synthroid PO 25 mcg DAILY@0630 MARISABEL Administration Magnesium Oxide 400 mg 08/24/17 09:00 08/24/17 09:36 Mag-Ox PO 400 mg DAILY MARISABEL Administration Metformin HCl 500 mg 08/20/17 09:00 08/24/17 09:37 Glucophage PO 500 mg BID MARISABEL Administration Metoprolol Tartrate 25 mg 08/20/17 21:00 08/24/17 09:37 Lopressor PO 25 mg Q12 MARISABEL Administration Pantoprazole Sodium 40 mg 08/20/17 09:00 08/24/17 09:38 Protonix Ec Tab PO 40 mg DAILY MARISABEL Administration Promethazine HCl 6.25 mg 08/22/17 08:36 08/23/17 08:19 Phenergan Syrup PO 6.25 mg Q6 PRN Administration Cough - Patient Studies Lab Studies: Microbiology Studies 08/22/17 07:45 Stool Culture - Final Stool NO SALMONELLA, SHIGELLA OR CAMPYLOBACTER ISOLATED. 08/19/17 19:20 Blood Culture - Preliminary Blood-Venous NO GROWTH AFTER 4 DAYS 08/19/17 19:05 Blood Culture - Preliminary Blood-Venous NO GROWTH AFTER 4 DAYS Lab Studies 08/24/17 08/24/17 08/24/17 Range/Units 11:13 05:39 04:35 WBC (4.8-10.8) K/uL RBC (3.80-5.20) Mil/uL Hgb (12.0-16.0) g/dL Hct (34.0-47.0) % MCV (81.0-99.0) fl MCH (27.0-31.0) pg MCHC (33.0-37.0) g/dL RDW (11.5-14.5) % Plt Count (130-400) K/uL MPV (7.2-11.7) fl Neut % (Auto) (50.0-75.0) % Lymph % (Auto) (20.0-40.0) % Luce % (Auto) (0.0-10.0) % Eos % (Auto) (0.0-4.0) % Baso % (Auto) (0.0-2.0) % Neut # (Auto) (1.8-7.0) K/uL Lymph # (Auto) (1.0-4.3) K/uL Luce # (Auto) (0.0-0.8) K/uL Eos # (Auto) (0.0-0.7) K/uL Baso # (Auto) (0.0-0.2) K/uL pCO2 (35-45) mm/Hg pO2 (80-100) mm/Hg HCO3 (21-28) mmol/L ABG pH (7.35-7.45) ABG Total CO2 (22-28) mmol/L ABG O2 Saturation (95-98) % ABG O2 Content (15-23) ML/dL ABG Base Excess (-2.0-3.0) mmol/L ABG Hemoglobin (11.7-17.4) g/dL ABG Carboxyhemoglobin (0.5-1.5) % POC ABG HHb (Measured) (0.0-5.0) % ABG Methemoglobin (0.0-3.0) % ABG O2 Capacity (16-24) mL/dL Lake Test A-a O2 Difference mm/Hg Hgb O2 Saturation (95.0-98.0) % Vent Mode FiO2 % Sodium 139 (132-148) mmol/l Potassium 4.7 (3.6-5.0) MMOL/L Chloride 103 (98-107) mmol/L Carbon Dioxide 25 (22-30) mmol/L Anion Gap 16 (10-20) BUN 18 H (7-17) mg/dl Creatinine 0.7 (0.7-1.2) mg/dl Est GFR ( Amer) > 60 Est GFR (Non-Af Amer) > 60 POC Glucose (mg/dL) 154 H 108 (65-110) mg/dL Random Glucose 119 H (65-105) mg/dL Calcium 8.1 L (8.4-10.2) mg/dL Magnesium 1.6 (1.6-2.3) MG/DL Total Bilirubin 0.6 (0.2-1.3) mg/dl AST 15 (14-36) U/L ALT 22 (9-52) U/L Alkaline Phosphatase 73 (38-126) U/L Total Protein 5.9 L (6.3-8.2) G/DL Albumin 3.0 L (3.5-5.0) g/dL Globulin 2.9 (2.2-3.9) gm/dL Albumin/Globulin Ratio 1.0 (1.0-2.1) Thyroxine (T4) 3.56 L (5.5-11.0) ug/dl TSH 3rd Generation 2.51 (0.46-4.68) mIU/ML PTH Intact Whole Molec (14-64) pg/mL Cortisol AM Sample (4.46-22.7) ug/dL ACTH (6-50) pg/mL C. difficile Ag & Toxin (NEGATIVE) 08/24/17 08/23/17 08/23/17 Range/Units 04:35 21:13 18:05 WBC 4.0 L (4.8-10.8) K/uL RBC 3.30 L (3.80-5.20) Mil/uL Hgb 9.6 L (12.0-16.0) g/dL Hct 29.7 L (34.0-47.0) % MCV 90.2 (81.0-99.0) fl MCH 29.3 (27.0-31.0) pg MCHC 32.5 L (33.0-37.0) g/dL RDW 17.3 H (11.5-14.5) % Plt Count 264 (130-400) K/uL MPV 9.7 (7.2-11.7) fl Neut % (Auto) 71.8 (50.0-75.0) % Lymph % (Auto) 10.4 L (20.0-40.0) % Luce % (Auto) 15.8 H (0.0-10.0) % Eos % (Auto) 1.4 (0.0-4.0) % Baso % (Auto) 0.6 (0.0-2.0) % Neut # (Auto) 2.9 (1.8-7.0) K/uL Lymph # (Auto) 0.4 L (1.0-4.3) K/uL Luce # (Auto) 0.6 (0.0-0.8) K/uL Eos # (Auto) 0.1 (0.0-0.7) K/uL Baso # (Auto) 0.0 (0.0-0.2) K/uL pCO2 (35-45) mm/Hg pO2 (80-100) mm/Hg HCO3 (21-28) mmol/L ABG pH (7.35-7.45) ABG Total CO2 (22-28) mmol/L ABG O2 Saturation (95-98) % ABG O2 Content (15-23) ML/dL ABG Base Excess (-2.0-3.0) mmol/L ABG Hemoglobin (11.7-17.4) g/dL ABG Carboxyhemoglobin (0.5-1.5) % POC ABG HHb (Measured) (0.0-5.0) % ABG Methemoglobin (0.0-3.0) % ABG O2 Capacity (16-24) mL/dL Lake Test A-a O2 Difference mm/Hg Hgb O2 Saturation (95.0-98.0) % Vent Mode FiO2 % Sodium (132-148) mmol/l Potassium (3.6-5.0) MMOL/L Chloride (98-107) mmol/L Carbon Dioxide (22-30) mmol/L Anion Gap (10-20) BUN (7-17) mg/dl Creatinine (0.7-1.2) mg/dl Est GFR ( Amer) Est GFR (Non-Af Amer) POC Glucose (mg/dL) 127 H (65-110) mg/dL Random Glucose (65-105) mg/dL Calcium (8.4-10.2) mg/dL Magnesium 1.2 L (1.6-2.3) MG/DL Total Bilirubin (0.2-1.3) mg/dl AST (14-36) U/L ALT (9-52) U/L Alkaline Phosphatase (38-126) U/L Total Protein (6.3-8.2) G/DL Albumin (3.5-5.0) g/dL Globulin (2.2-3.9) gm/dL Albumin/Globulin Ratio (1.0-2.1) Thyroxine (T4) (5.5-11.0) ug/dl TSH 3rd Generation (0.46-4.68) mIU/ML PTH Intact Whole Molec (14-64) pg/mL Cortisol AM Sample (4.46-22.7) ug/dL ACTH (6-50) pg/mL C. difficile Ag & Toxin (NEGATIVE) 08/23/17 08/23/17 08/23/17 Range/Units 18:05 17:47 16:57 WBC (4.8-10.8) K/uL RBC (3.80-5.20) Mil/uL Hgb (12.0-16.0) g/dL Hct (34.0-47.0) % MCV (81.0-99.0) fl MCH (27.0-31.0) pg MCHC (33.0-37.0) g/dL RDW (11.5-14.5) % Plt Count (130-400) K/uL MPV (7.2-11.7) fl Neut % (Auto) (50.0-75.0) % Lymph % (Auto) (20.0-40.0) % Luce % (Auto) (0.0-10.0) % Eos % (Auto) (0.0-4.0) % Baso % (Auto) (0.0-2.0) % Neut # (Auto) (1.8-7.0) K/uL Lymph # (Auto) (1.0-4.3) K/uL Luce # (Auto) (0.0-0.8) K/uL Eos # (Auto) (0.0-0.7) K/uL Baso # (Auto) (0.0-0.2) K/uL pCO2 38 (35-45) mm/Hg pO2 97 (80-100) mm/Hg HCO3 27.9 (21-28) mmol/L ABG pH 7.47 H (7.35-7.45) ABG Total CO2 28.9 H (22-28) mmol/L ABG O2 Saturation 94.7 L (95-98) % ABG O2 Content 12.8 L (15-23) ML/dL ABG Base Excess 3.8 H (-2.0-3.0) mmol/L ABG Hemoglobin 9.5 L (11.7-17.4) g/dL ABG Carboxyhemoglobin 0 L (0.5-1.5) % POC ABG HHb (Measured) 5.3 H (0.0-5.0) % ABG Methemoglobin 0.0 (0.0-3.0) % ABG O2 Capacity 13.5 L (16-24) mL/dL Lake Test Yes A-a O2 Difference 84.0 mm/Hg Hgb O2 Saturation 94.7 L (95.0-98.0) % Vent Mode N/c FiO2 32.0 % Sodium 138 (132-148) mmol/l Potassium 4.6 (3.6-5.0) MMOL/L Chloride 105 (98-107) mmol/L Carbon Dioxide 25 (22-30) mmol/L Anion Gap 13 (10-20) BUN 22 H (7-17) mg/dl Creatinine 0.8 (0.7-1.2) mg/dl Est GFR ( Amer) > 60 Est GFR (Non-Af Amer) > 60 POC Glucose (mg/dL) 99 (65-110) mg/dL Random Glucose 113 H (65-105) mg/dL Calcium 8.0 L (8.4-10.2) mg/dL Magnesium (1.6-2.3) MG/DL Total Bilirubin (0.2-1.3) mg/dl AST (14-36) U/L ALT (9-52) U/L Alkaline Phosphatase (38-126) U/L Total Protein (6.3-8.2) G/DL Albumin (3.5-5.0) g/dL Globulin (2.2-3.9) gm/dL Albumin/Globulin Ratio (1.0-2.1) Thyroxine (T4) (5.5-11.0) ug/dl TSH 3rd Generation (0.46-4.68) mIU/ML PTH Intact Whole Molec (14-64) pg/mL Cortisol AM Sample (4.46-22.7) ug/dL ACTH (6-50) pg/mL C. difficile Ag & Toxin (NEGATIVE) 08/23/17 08/21/17 08/21/17 Range/Units 16:38 04:16 04:16 WBC (4.8-10.8) K/uL RBC (3.80-5.20) Mil/uL Hgb (12.0-16.0) g/dL Hct (34.0-47.0) % MCV (81.0-99.0) fl MCH (27.0-31.0) pg MCHC (33.0-37.0) g/dL RDW (11.5-14.5) % Plt Count (130-400) K/uL MPV (7.2-11.7) fl Neut % (Auto) (50.0-75.0) % Lymph % (Auto) (20.0-40.0) % Luce % (Auto) (0.0-10.0) % Eos % (Auto) (0.0-4.0) % Baso % (Auto) (0.0-2.0) % Neut # (Auto) (1.8-7.0) K/uL Lymph # (Auto) (1.0-4.3) K/uL Luce # (Auto) (0.0-0.8) K/uL Eos # (Auto) (0.0-0.7) K/uL Baso # (Auto) (0.0-0.2) K/uL pCO2 (35-45) mm/Hg pO2 (80-100) mm/Hg HCO3 (21-28) mmol/L ABG pH (7.35-7.45) ABG Total CO2 (22-28) mmol/L ABG O2 Saturation (95-98) % ABG O2 Content (15-23) ML/dL ABG Base Excess (-2.0-3.0) mmol/L ABG Hemoglobin (11.7-17.4) g/dL ABG Carboxyhemoglobin (0.5-1.5) % POC ABG HHb (Measured) (0.0-5.0) % ABG Methemoglobin (0.0-3.0) % ABG O2 Capacity (16-24) mL/dL Lake Test A-a O2 Difference mm/Hg Hgb O2 Saturation (95.0-98.0) % Vent Mode FiO2 % Sodium (132-148) mmol/l Potassium (3.6-5.0) MMOL/L Chloride (98-107) mmol/L Carbon Dioxide (22-30) mmol/L Anion Gap (10-20) BUN (7-17) mg/dl Creatinine (0.7-1.2) mg/dl Est GFR ( Amer) Est GFR (Non-Af Amer) POC Glucose (mg/dL) (65-110) mg/dL Random Glucose (65-105) mg/dL Calcium (8.4-10.2) mg/dL Magnesium (1.6-2.3) MG/DL Total Bilirubin (0.2-1.3) mg/dl AST (14-36) U/L ALT (9-52) U/L Alkaline Phosphatase (38-126) U/L Total Protein (6.3-8.2) G/DL Albumin (3.5-5.0) g/dL Globulin (2.2-3.9) gm/dL Albumin/Globulin Ratio (1.0-2.1) Thyroxine (T4) (5.5-11.0) ug/dl TSH 3rd Generation (0.46-4.68) mIU/ML PTH Intact Whole Molec (14-64) pg/mL Cortisol AM Sample 16.8 (4.46-22.7) ug/dL ACTH 17 (6-50) pg/mL C. difficile Ag & Toxin Negative (NEGATIVE) 08/20/17 Range/Units 06:03 WBC (4.8-10.8) K/uL RBC (3.80-5.20) Mil/uL Hgb (12.0-16.0) g/dL Hct (34.0-47.0) % MCV (81.0-99.0) fl MCH (27.0-31.0) pg MCHC (33.0-37.0) g/dL RDW (11.5-14.5) % Plt Count (130-400) K/uL MPV (7.2-11.7) fl Neut % (Auto) (50.0-75.0) % Lymph % (Auto) (20.0-40.0) % Luce % (Auto) (0.0-10.0) % Eos % (Auto) (0.0-4.0) % Baso % (Auto) (0.0-2.0) % Neut # (Auto) (1.8-7.0) K/uL Lymph # (Auto) (1.0-4.3) K/uL Luce # (Auto) (0.0-0.8) K/uL Eos # (Auto) (0.0-0.7) K/uL Baso # (Auto) (0.0-0.2) K/uL pCO2 (35-45) mm/Hg pO2 (80-100) mm/Hg HCO3 (21-28) mmol/L ABG pH (7.35-7.45) ABG Total CO2 (22-28) mmol/L ABG O2 Saturation (95-98) % ABG O2 Content (15-23) ML/dL ABG Base Excess (-2.0-3.0) mmol/L ABG Hemoglobin (11.7-17.4) g/dL ABG Carboxyhemoglobin (0.5-1.5) % POC ABG HHb (Measured) (0.0-5.0) % ABG Methemoglobin (0.0-3.0) % ABG O2 Capacity (16-24) mL/dL Lake Test A-a O2 Difference mm/Hg Hgb O2 Saturation (95.0-98.0) % Vent Mode FiO2 % Sodium (132-148) mmol/l Potassium (3.6-5.0) MMOL/L Chloride (98-107) mmol/L Carbon Dioxide (22-30) mmol/L Anion Gap (10-20) BUN (7-17) mg/dl Creatinine (0.7-1.2) mg/dl Est GFR ( Amer) Est GFR (Non-Af Amer) POC Glucose (mg/dL) (65-110) mg/dL Random Glucose (65-105) mg/dL Calcium (8.4-10.2) mg/dL Magnesium (1.6-2.3) MG/DL Total Bilirubin (0.2-1.3) mg/dl AST (14-36) U/L ALT (9-52) U/L Alkaline Phosphatase (38-126) U/L Total Protein (6.3-8.2) G/DL Albumin (3.5-5.0) g/dL Globulin (2.2-3.9) gm/dL Albumin/Globulin Ratio (1.0-2.1) Thyroxine (T4) (5.5-11.0) ug/dl TSH 3rd Generation (0.46-4.68) mIU/ML PTH Intact Whole Molec 162 H (14-64) pg/mL Cortisol AM Sample (4.46-22.7) ug/dL ACTH (6-50) pg/mL C. difficile Ag & Toxin (NEGATIVE) Laboratory Results - last 24 hr 08/20/17 08/21/17 08/21/17 06:03 04:16 04:16 WBC RBC Hgb Hct MCV MCH MCHC RDW Plt Count MPV Neut % (Auto) Lymph % (Auto) Luce % (Auto) Eos % (Auto) Baso % (Auto) Neut # (Auto) Lymph # (Auto) Luce # (Auto) Eos # (Auto) Baso # (Auto) pCO2 pO2 HCO3 ABG pH ABG Total CO2 ABG O2 Saturation ABG O2 Content ABG Base Excess ABG Hemoglobin ABG Carboxyhemoglobin POC ABG HHb (Measured) ABG Methemoglobin ABG O2 Capacity [place] Test A-a O2 Difference Hgb O2 Saturation Vent Mode FiO2 Sodium Potassium Chloride Carbon Dioxide Anion Gap BUN Creatinine Est GFR ( Amer) Est GFR (Non-Af Amer) POC Glucose (mg/dL) Random Glucose Calcium Magnesium Total Bilirubin AST ALT Alkaline Phosphatase Total Protein Albumin Globulin Albumin/Globulin Ratio Thyroxine (T4) TSH 3rd Generation PTH Intact Whole Molec 162 H Cortisol AM Sample 16.8 ACTH 17 C. difficile Ag & Toxin 08/23/17 08/23/17 08/23/17 16:38 16:57 17:47 WBC RBC Hgb Hct MCV MCH MCHC RDW Plt Count MPV Neut % (Auto) Lymph % (Auto) Luce % (Auto) Eos % (Auto) Baso % (Auto) Neut # (Auto) Lymph # (Auto) Luce # (Auto) Eos # (Auto) Baso # (Auto) pCO2 38 pO2 97 HCO3 27.9 ABG pH 7.47 H ABG Total CO2 28.9 H ABG O2 Saturation 94.7 L ABG O2 Content 12.8 L ABG Base Excess 3.8 H ABG Hemoglobin 9.5 L ABG Carboxyhemoglobin 0 L POC ABG HHb (Measured) 5.3 H ABG Methemoglobin 0.0 ABG O2 Capacity 13.5 L Lake Test Yes A-a O2 Difference 84.0 Hgb O2 Saturation 94.7 L Vent Mode N/c FiO2 32.0 Sodium Potassium Chloride Carbon Dioxide Anion Gap BUN Creatinine Est GFR ( Amer) Est GFR (Non-Af Amer) POC Glucose (mg/dL) 99 Random Glucose Calcium Magnesium Total Bilirubin AST ALT Alkaline Phosphatase Total Protein Albumin Globulin Albumin/Globulin Ratio Thyroxine (T4) TSH 3rd Generation PTH Intact Whole Molec Cortisol AM Sample ACTH C. difficile Ag & Toxin Negative 08/23/17 08/23/17 08/23/17 18:05 18:05 21:13 WBC RBC Hgb Hct MCV MCH MCHC RDW Plt Count MPV Neut % (Auto) Lymph % (Auto) Luce % (Auto) Eos % (Auto) Baso % (Auto) Neut # (Auto) Lymph # (Auto) Luce # (Auto) Eos # (Auto) Baso # (Auto) pCO2 pO2 HCO3 ABG pH ABG Total CO2 ABG O2 Saturation ABG O2 Content ABG Base Excess ABG Hemoglobin ABG Carboxyhemoglobin POC ABG HHb (Measured) ABG Methemoglobin ABG O2 Capacity [place] Test A-a O2 Difference Hgb O2 Saturation Vent Mode FiO2 Sodium 138 Potassium 4.6 Chloride 105 Carbon Dioxide 25 Anion Gap 13 BUN 22 H Creatinine 0.8 Est GFR ( Amer) > 60 Est GFR (Non-Af Amer) > 60 POC Glucose (mg/dL) 127 H Random Glucose 113 H Calcium 8.0 L Magnesium 1.2 L Total Bilirubin AST ALT Alkaline Phosphatase Total Protein Albumin Globulin Albumin/Globulin Ratio Thyroxine (T4) TSH 3rd Generation PTH Intact Whole Molec Cortisol AM Sample ACTH C. difficile Ag & Toxin 08/24/17 08/24/17 08/24/17 04:35 04:35 05:39 WBC 4.0 L RBC 3.30 L Hgb 9.6 L Hct 29.7 L MCV 90.2 MCH 29.3 MCHC 32.5 L RDW 17.3 H Plt Count 264 MPV 9.7 Neut % (Auto) 71.8 Lymph % (Auto) 10.4 L Luce % (Auto) 15.8 H Eos % (Auto) 1.4 Baso % (Auto) 0.6 Neut # (Auto) 2.9 Lymph # (Auto) 0.4 L Luce # (Auto) 0.6 Eos # (Auto) 0.1 Baso # (Auto) 0.0 pCO2 pO2 HCO3 ABG pH ABG Total CO2 ABG O2 Saturation ABG O2 Content ABG Base Excess ABG Hemoglobin ABG Carboxyhemoglobin POC ABG HHb (Measured) ABG Methemoglobin ABG O2 Capacity [place] Test A-a O2 Difference Hgb O2 Saturation Vent Mode FiO2 Sodium 139 Potassium 4.7 Chloride 103 Carbon Dioxide 25 Anion Gap 16 BUN 18 H Creatinine 0.7 Est GFR ( Amer) > 60 Est GFR (Non-Af Amer) > 60 POC Glucose (mg/dL) 108 Random Glucose 119 H Calcium 8.1 L Magnesium 1.6 Total Bilirubin 0.6 AST 15 ALT 22 Alkaline Phosphatase 73 Total Protein 5.9 L Albumin 3.0 L Globulin 2.9 Albumin/Globulin Ratio 1.0 Thyroxine (T4) 3.56 L TSH 3rd Generation 2.51 PTH Intact Whole Molec Cortisol AM Sample ACTH C. difficile Ag & Toxin 08/24/17 11:13 WBC RBC Hgb Hct MCV MCH MCHC RDW Plt Count MPV Neut % (Auto) Lymph % (Auto) Luce % (Auto) Eos % (Auto) Baso % (Auto) Neut # (Auto) Lymph # (Auto) Luce # (Auto) Eos # (Auto) Baso # (Auto) pCO2 pO2 HCO3 ABG pH ABG Total CO2 ABG O2 Saturation ABG O2 Content ABG Base Excess ABG Hemoglobin ABG Carboxyhemoglobin POC ABG HHb (Measured) ABG Methemoglobin ABG O2 Capacity [place] Test A-a O2 Difference Hgb O2 Saturation Vent Mode FiO2 Sodium Potassium Chloride Carbon Dioxide Anion Gap BUN Creatinine Est GFR ( Amer) Est GFR (Non-Af Amer) POC Glucose (mg/dL) 154 H Random Glucose Calcium Magnesium Total Bilirubin AST ALT Alkaline Phosphatase Total Protein Albumin Globulin Albumin/Globulin Ratio Thyroxine (T4) TSH 3rd Generation PTH Intact Whole Molec Cortisol AM Sample ACTH C. difficile Ag & Toxin EKG/Cardiology Studies: Cardiology / EKG Studies 08/24/17 EKG [ELECTROCARDIOGRAM] Stat Comment: Mode Of Transportation: Reason For Exam: prolong QTc Fingerstick Blood Sugar Results: 108 Review of Systems - EENT Eyes: absent: Diplopia Nose/Mouth/Throat: absent: Nasal Congestion, Dry Mouth - Cardiovascular Cardiovascular: absent: Chest Pain, Dyspnea, Lightheadedness, Palpitations - Respiratory Respiratory: absent: Cough, Dyspnea, Hemoptysis, Chest Congestion - Gastrointestinal Gastrointestinal: absent: Abdominal Pain, Bloating, Melena, Nausea, Vomiting - Genitourinary Genitourinary: absent: Difficulty Urinating - Musculoskeletal Musculoskeletal: Arthralgias, Limited Range of Motion, Muscle Weakness, Stiffness - Integumentary Integumentary: UNREMARKABLE - Neurological Neurological: Abnormal Gait, Confusion (at times), Frequent Falls, Syncope (at home), Tremor. absent: Focal Weakness Critical Care Progress Note - Extremities/Vascular Does the Patient have a Central Venous Catheter?: No Does the Patient need a Central Venous Catheter?: No Does the Patient have a [place]ado Catheter?: Yes Does the Patient need a Maldonado Catheter?: Yes Catheter Insertion Criteria: Need for accurate measurement of output in critically ill patient - Prophylaxis GI Prophylaxis GI: PPI - Prophylaxis DVT Prophylaxis DVT: Heparin SQ - Nutrition Nutrition: Nutrition Category Date Time Status Heart Healthy Diet [DIET] Diets 08/23/17 Dinner Active Assessment/Plan - Assessment and Plan (Free Text) Assessment: 71 YO female with multiple co-morbidities, IDDM type 2, HTN, Pulm HTN, COPD on home oxygen and CPAP, hx of PE s/p IVC filter in 2014) is admitted for unwitnessed syncope. Syncope VS Seizure episode -Cardiac vs neurologic -QTc prolonged -hx multiple episode of dizziness, multiple falls) -Head CT w/o contrast: No acute ICH abnormality, small lucencies of skull concerning for metastatic disease or multiple myeloma-unchanged from 09/2016 -EKG: sinus tachycardia at 104 bpm with T wave inversions (unchanged from past EKG's) -troponin x2 neg -Neurology on consult c/w [place] -MRI of brain, EEG; pending because of patient unable to stand still(tremors) Prolong QTc -Poss due to hypocalcemia -improving -s/p 2x IV calcium gluconate x 24/48 hrs per Endo -Cardiology on consult -EP; Dr. Burnett consulted; pt may require defib later, correct electrolytes and follow up EKG Hypocalcemia with poss secondary Hyperparathyroidism -Ca level improved -Poss due to medication SE(steroids, Chemo) -Endocrinology on consult; cont levo, IVF maintenance 48hrs, trend Calcium, CaCO3 500mg BID, Calcitriol 0.5mg BID, TSH -serum calcium 5.0 on admission -PTH elevated -S/O Ca replacement Hypomagnesemia -resolved -s/p Mg replacement -Poss due to Ca replacement? IDDM type 2 -chronic, stable -HbA1c 8.6 (08/21) -Endo consulted Hypothyroidism -chronic, controlled -endocrine on board; cont Levothyroxine 25 mcg PO QD Multiple Myeloma -chronic -continue home medications: Dexamethasone 20mg once a week on mondays, Hydrocortisone 10mg PO QHS -Hem/Onc on case while inpatient Anemia -Poss secondary to multiple myeloma -Hb/Hct 9.6/29.7 -cont to monitor DVT prophylaxis -Heparin SC <Norberto Mari V - Last Filed: 08/24/17 15:40> CCU Subjective - Physician Review Events Since Last Encounter (Free Text): 08/24/17 15:39 patient is seen, examined at bedside. Agree with plan of care as detailed in resident's note CCU Objective - Vital Signs / Intake & Output Vital Signs (Last 4 hours): Vital Signs Temp Pulse Resp BP Pulse Ox 08/24/17 12:00 98.8 F 70 4 L 153/77 H 94 L Intake and Output (Last 8hrs): Intake & Output 08/24/17 08/24/17 08/24/17 06:59 14:59 22:59 Intake Total 1000 20 Output Total 3300 Balance -2300 20 Weight 194 lb Intake: IV 500 20 Intake, Piggyback 200 Oral 300 Output: Urine 2400 Urethral ([place]) 2400 Stool 900 - Medications Active Medications: Active Medications Generic Name Dose Route Start Last Admin Trade Name Freq PRN Reason Stop Dose Admin Acetylcysteine 2 ml 08/21/17 20:00 08/24/17 07:36 Acetylcysteine 20% INH 2 ml RBID MARISABEL Administration Albuterol/Ipratropium 3 ml 08/20/17 05:01 08/21/17 17:00 Duoneb 3 Mg/0.5 Mg (3 Ml) Ud INH 3 ml RQ4 PRN Administration Shortness of Breath Albuterol/Ipratropium 3 ml 08/20/17 14:00 08/24/17 13:15 Duoneb 3 Mg/0.5 Mg (3 Ml) Ud INH Not Given RQ6 MARISABEL Alprazolam 0.5 mg 08/23/17 21:40 Xanax PO Q8 PRN Anxiety Aripiprazole 5 mg 08/20/17 22:00 08/23/17 21:08 Abilify PO 5 mg HS MARISABEL Administration Aspirin 81 mg 08/20/17 09:00 08/24/17 09:39 Ecotrin PO 81 mg DAILY MARISABEL Administration Buspirone HCl 10 mg 08/20/17 22:00 08/24/17 09:39 Buspar PO 10 mg Q12@1000,2200 MARISABEL Administration Calcitriol 0.5 mcg 08/20/17 17:00 08/24/17 09:41 Rocaltrol PO 0.5 mcg BID MARISABEL Administration Calcium Carbonate 500 mg 08/21/17 17:00 08/24/17 09:38 Oscal PO 500 mg BIDWM MARISABEL Administration Clonazepam 0.5 mg 08/19/17 23:45 08/23/17 21:18 Klonopin PO 0.5 mg DAILY PRN Administration Anxiety Dexamethasone 20 mg 08/23/17 09:00 08/23/17 09:33 Decadron PO Not Given MON MARISABEL Dextrose 0 ml 08/20/17 00:06 08/22/17 17:17 Dextrose 50% Inj IV 50 ml STAT PRN Administration Hypoglycemia Protocol Protocol Dextrose 0 gm 08/20/17 00:06 Glutose 15 PO ONCE PRN Hypoglycemia Protocol Protocol Dimethicone 1 applic 08/24/17 17:00 Proshield Plus Skin Protectant TOP Q8 MARISABEL Divalproex Sodium 250 mg 08/20/17 17:00 08/24/17 09:36 Depmacey Hines(*Bid*) PO 250 mg BID MARISABEL Administration Enalapril Maleate 2.5 mg 08/20/17 09:00 Vasotec PO DAILY MARISABEL Furosemide 20 mg 08/19/17 23:45 08/23/17 22:54 Lasix PO 20 mg Q48H MARISABEL Administration Glucagon 0 mg 08/20/17 00:06 Glucagen Diagnostic Kit IM STAT PRN Hypoglycemia Protocol Protocol Heparin Sodium (Porcine) 5,000 units 08/22/17 01:00 08/24/17 09:39 Heparin SC 5,000 units Q8 MARISABEL Administration Protocol Home Med 2 mg 08/20/17 09:00 08/24/17 12:54 Riociguat [Adempas] PO 2 mg TID MARISABEL Administration Hydrocortisone 10 mg 08/19/17 23:45 08/23/17 21:08 Cortef PO 10 mg HS MARISABEL Administration Insulin Detemir 12 units 08/23/17 22:00 08/23/17 21:13 Levemir SC 12 units HS MARISABEL Administration Insulin Human Lispro 0 units 08/20/17 22:00 08/24/17 12:53 Humalog SC Not Given ACHS [facility] Insulin Human Lispro 4 units 08/23/17 16:30 08/24/17 12:51 Humalog SC 4 units AC MARISABEL Administration Levothyroxine Sodium 25 mcg 08/23/17 06:30 08/24/17 06:08 Synthroid PO 25 mcg DAILY@0630 MARISABEL Administration Magnesium Oxide 400 mg 08/24/17 09:00 08/24/17 09:36 Mag-Ox PO 400 mg DAILY MARISABEL Administration Metformin HCl 500 mg 08/20/17 09:00 08/24/17 09:37 Glucophage PO 500 mg BID MARISABEL Administration Metoprolol Tartrate 25 mg 08/20/17 21:00 08/24/17 09:37 Lopressor PO 25 mg Q12 MARISABEL Administration Pantoprazole Sodium 40 mg 08/20/17 09:00 08/24/17 09:38 Protonix Ec Tab PO 40 mg DAILY MARISABEL Administration Promethazine HCl 6.25 mg 08/22/17 08:36 08/23/17 08:19 Phenergan Syrup PO 6.25 mg Q6 PRN Administration Cough - Patient Studies Lab Studies: Microbiology Studies 08/22/17 07:45 Stool Culture - Final Stool NO SALMONELLA, SHIGELLA OR CAMPYLOBACTER ISOLATED. 08/19/17 19:20 Blood Culture - Preliminary Blood-Venous NO GROWTH AFTER 4 DAYS 08/19/17 19:05 Blood Culture - Preliminary Blood-Venous NO GROWTH AFTER 4 DAYS Lab Studies 08/24/17 08/24/17 08/24/17 Range/Units 14:34 14:34 11:13 WBC (4.8-10.8) K/uL RBC (3.80-5.20) Mil/uL Hgb (12.0-16.0) g/dL Hct (34.0-47.0) % MCV (81.0-99.0) fl MCH (27.0-31.0) pg MCHC (33.0-37.0) g/dL RDW (11.5-14.5) % Plt Count (130-400) K/uL MPV (7.2-11.7) fl Neut % (Auto) (50.0-75.0) % Lymph % (Auto) (20.0-40.0) % Luce % (Auto) (0.0-10.0) % Eos % (Auto) (0.0-4.0) % Baso % (Auto) (0.0-2.0) % Neut # (Auto) (1.8-7.0) K/uL Lymph # (Auto) (1.0-4.3) K/uL Luce # (Auto) (0.0-0.8) K/uL Eos # (Auto) (0.0-0.7) K/uL Baso # (Auto) (0.0-0.2) K/uL pCO2 (35-45) mm/Hg pO2 (80-100) mm/Hg HCO3 (21-28) mmol/L ABG pH (7.35-7.45) ABG Total CO2 (22-28) mmol/L ABG O2 Saturation (95-98) % ABG O2 Content (15-23) ML/dL ABG Base Excess (-2.0-3.0) mmol/L ABG Hemoglobin (11.7-17.4) g/dL ABG Carboxyhemoglobin (0.5-1.5) % POC ABG HHb (Measured) (0.0-5.0) % ABG Methemoglobin (0.0-3.0) % ABG O2 Capacity (16-24) mL/dL Lake Test A-a O2 Difference mm/Hg Hgb O2 Saturation (95.0-98.0) % Vent Mode FiO2 % Sodium (132-148) mmol/l Potassium (3.6-5.0) MMOL/L Chloride (98-107) mmol/L Carbon Dioxide (22-30) mmol/L Anion Gap (10-20) BUN (7-17) mg/dl Creatinine (0.7-1.2) mg/dl Est GFR ( Amer) Est GFR (Non-Af Amer) POC Glucose (mg/dL) 154 H (65-110) mg/dL Random Glucose (65-105) mg/dL Calcium (8.4-10.2) mg/dL Magnesium (1.6-2.3) MG/DL Total Bilirubin (0.2-1.3) mg/dl AST (14-36) U/L ALT (9-52) U/L Alkaline Phosphatase (38-126) U/L Ammonia 12 (11-51) umo/L Total Protein (6.3-8.2) G/DL Albumin (3.5-5.0) g/dL Globulin (2.2-3.9) gm/dL Albumin/Globulin Ratio (1.0-2.1) Amylase 65 (30-110) U/L Lipase 47 (23-300) U/L Thyroxine (T4) (5.5-11.0) ug/dl TSH 3rd Generation (0.46-4.68) mIU/ML ACTH (6-50) pg/mL C. difficile Ag & Toxin (NEGATIVE) 08/24/17 08/24/17 08/24/17 Range/Units 05:39 04:35 04:35 WBC 4.0 L (4.8-10.8) K/uL RBC 3.30 L (3.80-5.20) Mil/uL Hgb 9.6 L (12.0-16.0) g/dL Hct 29.7 L (34.0-47.0) % MCV 90.2 (81.0-99.0) fl MCH 29.3 (27.0-31.0) pg MCHC 32.5 L (33.0-37.0) g/dL RDW 17.3 H (11.5-14.5) % Plt Count 264 (130-400) K/uL MPV 9.7 (7.2-11.7) fl Neut % (Auto) 71.8 (50.0-75.0) % Lymph % (Auto) 10.4 L (20.0-40.0) % Luce % (Auto) 15.8 H (0.0-10.0) % Eos % (Auto) 1.4 (0.0-4.0) % Baso % (Auto) 0.6 (0.0-2.0) % Neut # (Auto) 2.9 (1.8-7.0) K/uL Lymph # (Auto) 0.4 L (1.0-4.3) K/uL Luce # (Auto) 0.6 (0.0-0.8) K/uL Eos # (Auto) 0.1 (0.0-0.7) K/uL Baso # (Auto) 0.0 (0.0-0.2) K/uL pCO2 (35-45) mm/Hg pO2 (80-100) mm/Hg HCO3 (21-28) mmol/L ABG pH (7.35-7.45) ABG Total CO2 (22-28) mmol/L ABG O2 Saturation (95-98) % ABG O2 Content (15-23) ML/dL ABG Base Excess (-2.0-3.0) mmol/L ABG Hemoglobin (11.7-17.4) g/dL ABG Carboxyhemoglobin (0.5-1.5) % POC ABG HHb (Measured) (0.0-5.0) % ABG Methemoglobin (0.0-3.0) % ABG O2 Capacity (16-24) mL/dL Lake Test A-a O2 Difference mm/Hg Hgb O2 Saturation (95.0-98.0) % Vent Mode FiO2 % Sodium 139 (132-148) mmol/l Potassium 4.7 (3.6-5.0) MMOL/L Chloride 103 (98-107) mmol/L Carbon Dioxide 25 (22-30) mmol/L Anion Gap 16 (10-20) BUN 18 H (7-17) mg/dl Creatinine 0.7 (0.7-1.2) mg/dl Est GFR ( Amer) > 60 Est GFR (Non-Af Amer) > 60 POC Glucose (mg/dL) 108 (65-110) mg/dL Random Glucose 119 H (65-105) mg/dL Calcium 8.1 L (8.4-10.2) mg/dL Magnesium 1.6 (1.6-2.3) MG/DL Total Bilirubin 0.6 (0.2-1.3) mg/dl AST 15 (14-36) U/L ALT 22 (9-52) U/L Alkaline Phosphatase 73 (38-126) U/L Ammonia (11-51) umo/L Total Protein 5.9 L (6.3-8.2) G/DL Albumin 3.0 L (3.5-5.0) g/dL Globulin 2.9 (2.2-3.9) gm/dL Albumin/Globulin Ratio 1.0 (1.0-2.1) Amylase (30-110) U/L Lipase (23-300) U/L Thyroxine (T4) 3.56 L (5.5-11.0) ug/dl TSH 3rd Generation 2.51 (0.46-4.68) mIU/ML ACTH (6-50) pg/mL C. difficile Ag & Toxin (NEGATIVE) 08/23/17 08/23/17 08/23/17 Range/Units 21:13 18:05 18:05 WBC (4.8-10.8) K/uL RBC (3.80-5.20) Mil/uL Hgb (12.0-16.0) g/dL Hct (34.0-47.0) % MCV (81.0-99.0) fl MCH (27.0-31.0) pg MCHC (33.0-37.0) g/dL RDW (11.5-14.5) % Plt Count (130-400) K/uL MPV (7.2-11.7) fl Neut % (Auto) (50.0-75.0) % Lymph % (Auto) (20.0-40.0) % Luce % (Auto) (0.0-10.0) % Eos % (Auto) (0.0-4.0) % Baso % (Auto) (0.0-2.0) % Neut # (Auto) (1.8-7.0) K/uL Lymph # (Auto) (1.0-4.3) K/uL Luce # (Auto) (0.0-0.8) K/uL Eos # (Auto) (0.0-0.7) K/uL Baso # (Auto) (0.0-0.2) K/uL pCO2 (35-45) mm/Hg pO2 (80-100) mm/Hg HCO3 (21-28) mmol/L ABG pH (7.35-7.45) ABG Total CO2 (22-28) mmol/L ABG O2 Saturation (95-98) % ABG O2 Content (15-23) ML/dL ABG Base Excess (-2.0-3.0) mmol/L ABG Hemoglobin (11.7-17.4) g/dL ABG Carboxyhemoglobin (0.5-1.5) % POC ABG HHb (Measured) (0.0-5.0) % ABG Methemoglobin (0.0-3.0) % ABG O2 Capacity (16-24) mL/dL Lake Test A-a O2 Difference mm/Hg Hgb O2 Saturation (95.0-98.0) % Vent Mode FiO2 % Sodium 138 (132-148) mmol/l Potassium 4.6 (3.6-5.0) MMOL/L Chloride 105 (98-107) mmol/L Carbon Dioxide 25 (22-30) mmol/L Anion Gap 13 (10-20) BUN 22 H (7-17) mg/dl Creatinine 0.8 (0.7-1.2) mg/dl Est GFR ( Amer) > 60 Est GFR (Non-Af Amer) > 60 POC Glucose (mg/dL) 127 H (65-110) mg/dL Random Glucose 113 H (65-105) mg/dL Calcium 8.0 L (8.4-10.2) mg/dL Magnesium 1.2 L (1.6-2.3) MG/DL Total Bilirubin (0.2-1.3) mg/dl AST (14-36) U/L ALT (9-52) U/L Alkaline Phosphatase (38-126) U/L Ammonia (11-51) umo/L Total Protein (6.3-8.2) G/DL Albumin (3.5-5.0) g/dL Globulin (2.2-3.9) gm/dL Albumin/Globulin Ratio (1.0-2.1) Amylase (30-110) U/L Lipase (23-300) U/L Thyroxine (T4) (5.5-11.0) ug/dl TSH 3rd Generation (0.46-4.68) mIU/ML ACTH (6-50) pg/mL C. difficile Ag & Toxin (NEGATIVE) 08/23/17 08/23/17 08/23/17 Range/Units 17:47 16:57 16:38 WBC (4.8-10.8) K/uL RBC (3.80-5.20) Mil/uL Hgb (12.0-16.0) g/dL Hct (34.0-47.0) % MCV (81.0-99.0) fl MCH (27.0-31.0) pg MCHC (33.0-37.0) g/dL RDW (11.5-14.5) % Plt Count (130-400) K/uL MPV (7.2-11.7) fl Neut % (Auto) (50.0-75.0) % Lymph % (Auto) (20.0-40.0) % Luce % (Auto) (0.0-10.0) % Eos % (Auto) (0.0-4.0) % Baso % (Auto) (0.0-2.0) % Neut # (Auto) (1.8-7.0) K/uL Lymph # (Auto) (1.0-4.3) K/uL Luce # (Auto) (0.0-0.8) K/uL Eos # (Auto) (0.0-0.7) K/uL Baso # (Auto) (0.0-0.2) K/uL pCO2 38 (35-45) mm/Hg pO2 97 (80-100) mm/Hg HCO3 27.9 (21-28) mmol/L ABG pH 7.47 H (7.35-7.45) ABG Total CO2 28.9 H (22-28) mmol/L ABG O2 Saturation 94.7 L (95-98) % ABG O2 Content 12.8 L (15-23) ML/dL ABG Base Excess 3.8 H (-2.0-3.0) mmol/L ABG Hemoglobin 9.5 L (11.7-17.4) g/dL ABG Carboxyhemoglobin 0 L (0.5-1.5) % POC ABG HHb (Measured) 5.3 H (0.0-5.0) % ABG Methemoglobin 0.0 (0.0-3.0) % ABG O2 Capacity 13.5 L (16-24) mL/dL Lake Test Yes A-a O2 Difference 84.0 mm/Hg Hgb O2 Saturation 94.7 L (95.0-98.0) % Vent Mode N/c FiO2 32.0 % Sodium (132-148) mmol/l Potassium (3.6-5.0) MMOL/L Chloride (98-107) mmol/L Carbon Dioxide (22-30) mmol/L Anion Gap (10-20) BUN (7-17) mg/dl Creatinine (0.7-1.2) mg/dl Est GFR ( Amer) Est GFR (Non-Af Amer) POC Glucose (mg/dL) 99 (65-110) mg/dL Random Glucose (65-105) mg/dL Calcium (8.4-10.2) mg/dL Magnesium (1.6-2.3) MG/DL Total Bilirubin (0.2-1.3) mg/dl AST (14-36) U/L ALT (9-52) U/L Alkaline Phosphatase (38-126) U/L Ammonia (11-51) umo/L Total Protein (6.3-8.2) G/DL Albumin (3.5-5.0) g/dL Globulin (2.2-3.9) gm/dL Albumin/Globulin Ratio (1.0-2.1) Amylase (30-110) U/L Lipase (23-300) U/L Thyroxine (T4) (5.5-11.0) ug/dl TSH 3rd Generation (0.46-4.68) mIU/ML ACTH (6-50) pg/mL C. difficile Ag & Toxin Negative (NEGATIVE) 08/21/17 Range/Units 04:16 WBC (4.8-10.8) K/uL RBC (3.80-5.20) Mil/uL Hgb (12.0-16.0) g/dL Hct (34.0-47.0) % MCV (81.0-99.0) fl MCH (27.0-31.0) pg MCHC (33.0-37.0) g/dL RDW (11.5-14.5) % Plt Count (130-400) K/uL MPV (7.2-11.7) fl Neut % (Auto) (50.0-75.0) % Lymph % (Auto) (20.0-40.0) % Luce % (Auto) (0.0-10.0) % Eos % (Auto) (0.0-4.0) % Baso % (Auto) (0.0-2.0) % Neut # (Auto) (1.8-7.0) K/uL Lymph # (Auto) (1.0-4.3) K/uL Luce # (Auto) (0.0-0.8) K/uL Eos # (Auto) (0.0-0.7) K/uL Baso # (Auto) (0.0-0.2) K/uL pCO2 (35-45) mm/Hg pO2 (80-100) mm/Hg HCO3 (21-28) mmol/L ABG pH (7.35-7.45) ABG Total CO2 (22-28) mmol/L ABG O2 Saturation (95-98) % ABG O2 Content (15-23) ML/dL ABG Base Excess (-2.0-3.0) mmol/L ABG Hemoglobin (11.7-17.4) g/dL ABG Carboxyhemoglobin (0.5-1.5) % POC ABG HHb (Measured) (0.0-5.0) % ABG Methemoglobin (0.0-3.0) % ABG O2 Capacity (16-24) mL/dL Lake Test A-a O2 Difference mm/Hg Hgb O2 Saturation (95.0-98.0) % Vent Mode FiO2 % Sodium (132-148) mmol/l Potassium (3.6-5.0) MMOL/L Chloride (98-107) mmol/L Carbon Dioxide (22-30) mmol/L Anion Gap (10-20) BUN (7-17) mg/dl Creatinine (0.7-1.2) mg/dl Est GFR ( Amer) Est GFR (Non-Af Amer) POC Glucose (mg/dL) (65-110) mg/dL Random Glucose (65-105) mg/dL Calcium (8.4-10.2) mg/dL Magnesium (1.6-2.3) MG/DL Total Bilirubin (0.2-1.3) mg/dl AST (14-36) U/L ALT (9-52) U/L Alkaline Phosphatase (38-126) U/L Ammonia (11-51) umo/L Total Protein (6.3-8.2) G/DL Albumin (3.5-5.0) g/dL Globulin (2.2-3.9) gm/dL Albumin/Globulin Ratio (1.0-2.1) Amylase (30-110) U/L Lipase (23-300) U/L Thyroxine (T4) (5.5-11.0) ug/dl TSH 3rd Generation (0.46-4.68) mIU/ML ACTH 17 (6-50) pg/mL C. difficile Ag & Toxin (NEGATIVE) Laboratory Results - last 24 hr 08/21/17 08/23/17 08/23/17 04:16 16:38 16:57 WBC RBC Hgb Hct MCV MCH MCHC RDW Plt Count MPV Neut % (Auto) Lymph % (Auto) Luce % (Auto) Eos % (Auto) Baso % (Auto) Neut # (Auto) Lymph # (Auto) Luce # (Auto) Eos # (Auto) Baso # (Auto) pCO2 pO2 HCO3 ABG pH ABG Total CO2 ABG O2 Saturation ABG O2 Content ABG Base Excess ABG Hemoglobin ABG Carboxyhemoglobin POC ABG HHb (Measured) ABG Methemoglobin ABG O2 Capacity [place] Test A-a O2 Difference Hgb O2 Saturation Vent Mode FiO2 Sodium Potassium Chloride Carbon Dioxide Anion Gap BUN Creatinine Est GFR ( Amer) Est GFR (Non-Af Amer) POC Glucose (mg/dL) 99 Random Glucose Calcium Magnesium Total Bilirubin AST ALT Alkaline Phosphatase Ammonia Total Protein Albumin Globulin Albumin/Globulin Ratio Amylase Lipase Thyroxine (T4) TSH 3rd Generation ACTH 17 C. difficile Ag & Toxin Negative 08/23/17 08/23/17 08/23/17 17:47 18:05 18:05 WBC RBC Hgb Hct MCV MCH MCHC RDW Plt Count MPV Neut % (Auto) Lymph % (Auto) Luce % (Auto) Eos % (Auto) Baso % (Auto) Neut # (Auto) Lymph # (Auto) Luce # (Auto) Eos # (Auto) Baso # (Auto) pCO2 38 pO2 97 HCO3 27.9 ABG pH 7.47 H ABG Total CO2 28.9 H ABG O2 Saturation 94.7 L ABG O2 Content 12.8 L ABG Base Excess 3.8 H ABG Hemoglobin 9.5 L ABG Carboxyhemoglobin 0 L POC ABG HHb (Measured) 5.3 H ABG Methemoglobin 0.0 ABG O2 Capacity 13.5 L Lake Test Yes A-a O2 Difference 84.0 Hgb O2 Saturation 94.7 L Vent Mode N/c FiO2 32.0 Sodium 138 Potassium 4.6 Chloride 105 Carbon Dioxide 25 Anion Gap 13 BUN 22 H Creatinine 0.8 Est GFR ( Amer) > 60 Est GFR (Non-Af Amer) > 60 POC Glucose (mg/dL) Random Glucose 113 H Calcium 8.0 L Magnesium 1.2 L Total Bilirubin AST ALT Alkaline Phosphatase Ammonia Total Protein Albumin Globulin Albumin/Globulin Ratio Amylase Lipase Thyroxine (T4) TSH 3rd Generation ACTH C. difficile Ag & Toxin 08/23/17 08/24/17 08/24/17 21:13 04:35 04:35 WBC 4.0 L RBC 3.30 L Hgb 9.6 L Hct 29.7 L MCV 90.2 MCH 29.3 MCHC 32.5 L RDW 17.3 H Plt Count 264 MPV 9.7 Neut % (Auto) 71.8 Lymph % (Auto) 10.4 L Luce % (Auto) 15.8 H Eos % (Auto) 1.4 Baso % (Auto) 0.6 Neut # (Auto) 2.9 Lymph # (Auto) 0.4 L Luce # (Auto) 0.6 Eos # (Auto) 0.1 Baso # (Auto) 0.0 pCO2 pO2 HCO3 ABG pH ABG Total CO2 ABG O2 Saturation ABG O2 Content ABG Base Excess ABG Hemoglobin ABG Carboxyhemoglobin POC ABG HHb (Measured) ABG Methemoglobin ABG O2 Capacity [place] Test A-a O2 Difference Hgb O2 Saturation Vent Mode FiO2 Sodium 139 Potassium 4.7 Chloride 103 Carbon Dioxide 25 Anion Gap 16 BUN 18 H Creatinine 0.7 Est GFR ( Amer) > 60 Est GFR (Non-Af Amer) > 60 POC Glucose (mg/dL) 127 H Random Glucose 119 H Calcium 8.1 L Magnesium 1.6 Total Bilirubin 0.6 AST 15 ALT 22 Alkaline Phosphatase 73 Ammonia Total Protein 5.9 L Albumin 3.0 L Globulin 2.9 Albumin/Globulin Ratio 1.0 Amylase Lipase Thyroxine (T4) 3.56 L TSH 3rd Generation 2.51 ACTH C. difficile Ag & Toxin 08/24/17 08/24/17 08/24/17 05:39 11:13 14:34 WBC RBC Hgb Hct MCV MCH MCHC RDW Plt Count MPV Neut % (Auto) Lymph % (Auto) Luce % (Auto) Eos % (Auto) Baso % (Auto) Neut # (Auto) Lymph # (Auto) Luce # (Auto) Eos # (Auto) Baso # (Auto) pCO2 pO2 HCO3 ABG pH ABG Total CO2 ABG O2 Saturation ABG O2 Content ABG Base Excess ABG Hemoglobin ABG Carboxyhemoglobin POC ABG HHb (Measured) ABG Methemoglobin ABG O2 Capacity [place] Test A-a O2 Difference Hgb O2 Saturation Vent Mode FiO2 Sodium Potassium Chloride Carbon Dioxide Anion Gap BUN Creatinine Est GFR ( Amer) Est GFR (Non-Af Amer) POC Glucose (mg/dL) 108 154 H Random Glucose Calcium Magnesium Total Bilirubin AST ALT Alkaline Phosphatase Ammonia Total Protein Albumin Globulin Albumin/Globulin Ratio Amylase 65 Lipase 47 Thyroxine (T4) TSH 3rd Generation ACTH C. difficile Ag & Toxin 08/24/17 14:34 WBC RBC Hgb Hct MCV MCH MCHC RDW Plt Count MPV Neut % (Auto) Lymph % (Auto) Luce % (Auto) Eos % (Auto) Baso % (Auto) Neut # (Auto) Lymph # (Auto) Luce # (Auto) Eos # (Auto) Baso # (Auto) pCO2 pO2 HCO3 ABG pH ABG Total CO2 ABG O2 Saturation ABG O2 Content ABG Base Excess ABG Hemoglobin ABG Carboxyhemoglobin POC ABG HHb (Measured) ABG Methemoglobin ABG O2 Capacity [place] Test A-a O2 Difference Hgb O2 Saturation Vent Mode FiO2 Sodium Potassium Chloride Carbon Dioxide Anion Gap BUN Creatinine Est GFR ( Amer) Est GFR (Non-Af Amer) POC Glucose (mg/dL) Random Glucose Calcium Magnesium Total Bilirubin AST ALT Alkaline Phosphatase Ammonia 12 Total Protein Albumin Globulin Albumin/Globulin Ratio Amylase Lipase Thyroxine (T4) TSH 3rd Generation ACTH C. difficile Ag & Toxin EKG/Cardiology Studies: Cardiology / EKG Studies 08/24/17 EKG [ELECTROCARDIOGRAM] Stat Comment: Mode Of Transportation: Reason For Exam: prolong QTc Critical Care Progress Note - Nutrition Nutrition: Nutrition Category Date Time Status Heart Healthy Diet [DIET] Diets 08/23/17 Dinner Active
--- NOTE | 2017-08-24 15:12 | CP.PCM.PN ---
Subjective - Date & Time of Evaluation Date of Evaluation: 08/23/17 Time of Evaluation: 18:00 - Subjective Subjective: Feels weak Objective - Vital Signs/Intake and Output Vital Signs (last 24 hours): Temp Pulse Resp BP Pulse Ox 98.8 F 70 4 L 153/77 H 94 L 08/24/17 12:00 08/24/17 12:00 08/24/17 12:00 08/24/17 12:00 08/24/17 12:00 Intake and Output: 08/24/17 08/24/17 06:59 18:59 Intake Total 1000 20 Output Total 3300 Balance -2300 20 - Medications Medications: Current Medications Acetylcysteine (Acetylcysteine 20%) 2 ml INH RBID [facility] Last Admin: 08/24/17 07:36 Dose: 2 ml Albuterol/Ipratropium (Duoneb 3 Mg/0.5 Mg (3 Ml) Ud) 3 ml INH RQ4 PRN PRN Reason: Shortness of Breath Last Admin: 08/21/17 17:00 Dose: 3 ml Albuterol/Ipratropium (Duoneb 3 Mg/0.5 Mg (3 Ml) Ud) 3 ml INH RQ6 [facility] Last Admin: 08/24/17 13:15 Dose: Not Given Alprazolam (Xanax) 0.5 mg PO Q8 PRN PRN Reason: Anxiety Aripiprazole (Abilify) 5 mg PO HS [facility] Last Admin: 08/23/17 21:08 Dose: 5 mg Aspirin (Ecotrin) 81 mg PO DAILY [facility] Last Admin: 08/24/17 09:39 Dose: 81 mg Buspirone HCl (Buspar) 10 mg PO Q12@1000,2200 [facility] Last Admin: 08/24/17 09:39 Dose: 10 mg Calcitriol (Rocaltrol) 0.5 mcg PO BID [facility] Last Admin: 08/24/17 09:41 Dose: 0.5 mcg Calcium Carbonate (Oscal) 500 mg PO BIDWM [facility] Last Admin: 08/24/17 09:38 Dose: 500 mg Clonazepam (Klonopin) 0.5 mg PO DAILY PRN PRN Reason: Anxiety Last Admin: 08/23/17 21:18 Dose: 0.5 mg Dexamethasone (Decadron) 20 mg PO MON [facility] Last Admin: 08/23/17 09:33 Dose: Not Given Dextrose (Dextrose 50% Inj) 0 ml IV STAT PRN; Protocol PRN Reason: Hypoglycemia Protocol Last Admin: 08/22/17 17:17 Dose: 50 ml Dextrose (Glutose 15) 0 gm PO ONCE PRN; Protocol PRN Reason: Hypoglycemia Protocol Dimethicone (Proshield Plus Skin Protectant) 1 applic TOP Q8 [facility] Divalproex Sodium (Depakote Dr(*Bid*)) 250 mg PO BID [facility] Last Admin: 08/24/17 09:36 Dose: 250 mg Enalapril Maleate (Vasotec) 2.5 mg PO DAILY [facility] Furosemide (Lasix) 20 mg PO Q48H [facility] Last Admin: 08/23/17 22:54 Dose: 20 mg Glucagon (Glucagen Diagnostic Kit) 0 mg IM STAT PRN; Protocol PRN Reason: Hypoglycemia Protocol Heparin Sodium (Porcine) (Heparin) 5,000 units SC Q8 [facility] PRN Reason: Protocol Last Admin: 08/24/17 09:39 Dose: 5,000 units Home Med (Riociguat [Adempas]) 2 mg PO TID [facility] Last Admin: 08/24/17 12:54 Dose: 2 mg Hydrocortisone (Cortef) 10 mg PO HS [facility] Last Admin: 08/23/17 21:08 Dose: 10 mg Insulin Detemir (Levemir) 12 units SC HS [facility] Last Admin: 08/23/17 21:13 Dose: 12 units Insulin Human Lispro (Humalog) 0 units SC ACHS [facility] Last Admin: 08/24/17 12:53 Dose: Not Given Insulin Human Lispro (Humalog) 4 units SC AC [facility] Last Admin: 08/24/17 12:51 Dose: 4 units Levothyroxine Sodium (Synthroid) 25 mcg PO DAILY@0630 [facility] Last Admin: 08/24/17 06:08 Dose: 25 mcg Magnesium Oxide (Mag-Ox) 400 mg PO DAILY [facility] Last Admin: 08/24/17 09:36 Dose: 400 mg Metformin HCl (Glucophage) 500 mg PO BID [facility] Last Admin: 08/24/17 09:37 Dose: 500 mg Metoprolol Tartrate (Lopressor) 25 mg PO Q12 [facility] Last Admin: 08/24/17 09:37 Dose: 25 mg Pantoprazole Sodium (Protonix Ec Tab) 40 mg PO DAILY [facility] Last Admin: 08/24/17 09:38 Dose: 40 mg Promethazine HCl (Phenergan Syrup) 6.25 mg PO Q6 PRN PRN Reason: Cough Last Admin: 08/23/17 08:19 Dose: 6.25 mg - Labs Labs: 08/24/17 04:35 08/24/17 04:35 - Head Exam Head Exam: ATRAUMATIC - Eye Exam Eye Exam: Normal appearance - ENT Exam ENT Exam: Mucous Membranes Dry - Respiratory Exam Respiratory Exam: NORMAL BREATHING PATTERN - Cardiovascular Exam Cardiovascular Exam: +S1, +S2 - GI/Abdominal Exam GI & Abdominal Exam: Normal Bowel Sounds Assessment and Plan (1) Hypocalcemia syndrome Assessment & Plan: ? related to denosumab vs lenalidomide on supplementation Status: Acute (2) Anemia Assessment & Plan: chronic disease, multiple myeloma, myeloma treatment. Status: Resolved (3) Multiple myeloma Assessment & Plan: outpatient treatment Status: Chronic
--- NOTE | 2017-08-24 15:13 | CP.PCM.PN ---
Subjective - Date & Time of Evaluation Date of Evaluation: 08/24/17 Time of Evaluation: 12:00 - Subjective Subjective: Feeling better. Objective - Vital Signs/Intake and Output Vital Signs (last 24 hours): Temp Pulse Resp BP Pulse Ox 98.8 F 70 4 L 153/77 H 94 L 08/24/17 12:00 08/24/17 12:00 08/24/17 12:00 08/24/17 12:00 08/24/17 12:00 Intake and Output: 08/24/17 08/24/17 06:59 18:59 Intake Total 1000 20 Output Total 3300 Balance -2300 20 - Medications Medications: Current Medications Acetylcysteine (Acetylcysteine 20%) 2 ml INH RBID [facility] Last Admin: 08/24/17 07:36 Dose: 2 ml Albuterol/Ipratropium (Duoneb 3 Mg/0.5 Mg (3 Ml) Ud) 3 ml INH RQ4 PRN PRN Reason: Shortness of Breath Last Admin: 08/21/17 17:00 Dose: 3 ml Albuterol/Ipratropium (Duoneb 3 Mg/0.5 Mg (3 Ml) Ud) 3 ml INH RQ6 [facility] Last Admin: 08/24/17 13:15 Dose: Not Given Alprazolam (Xanax) 0.5 mg PO Q8 PRN PRN Reason: Anxiety Aripiprazole (Abilify) 5 mg PO HS [facility] Last Admin: 08/23/17 21:08 Dose: 5 mg Aspirin (Ecotrin) 81 mg PO DAILY [facility] Last Admin: 08/24/17 09:39 Dose: 81 mg Buspirone HCl (Buspar) 10 mg PO Q12@1000,2200 [facility] Last Admin: 08/24/17 09:39 Dose: 10 mg Calcitriol (Rocaltrol) 0.5 mcg PO BID [facility] Last Admin: 08/24/17 09:41 Dose: 0.5 mcg Calcium Carbonate (Oscal) 500 mg PO BIDWM [facility] Last Admin: 08/24/17 09:38 Dose: 500 mg Clonazepam (Klonopin) 0.5 mg PO DAILY PRN PRN Reason: Anxiety Last Admin: 08/23/17 21:18 Dose: 0.5 mg Dexamethasone (Decadron) 20 mg PO MON [facility] Last Admin: 08/23/17 09:33 Dose: Not Given Dextrose (Dextrose 50% Inj) 0 ml IV STAT PRN; Protocol PRN Reason: Hypoglycemia Protocol Last Admin: 08/22/17 17:17 Dose: 50 ml Dextrose (Glutose 15) 0 gm PO ONCE PRN; Protocol PRN Reason: Hypoglycemia Protocol Dimethicone (Proshield Plus Skin Protectant) 1 applic TOP Q8 [facility] Divalproex Sodium (Depakote Dr(*Bid*)) 250 mg PO BID [facility] Last Admin: 08/24/17 09:36 Dose: 250 mg Enalapril Maleate (Vasotec) 2.5 mg PO DAILY [facility] Furosemide (Lasix) 20 mg PO Q48H [facility] Last Admin: 08/23/17 22:54 Dose: 20 mg Glucagon (Glucagen Diagnostic Kit) 0 mg IM STAT PRN; Protocol PRN Reason: Hypoglycemia Protocol Heparin Sodium (Porcine) (Heparin) 5,000 units SC Q8 [facility] PRN Reason: Protocol Last Admin: 08/24/17 09:39 Dose: 5,000 units Home Med (Riociguat [Adempas]) 2 mg PO TID [facility] Last Admin: 08/24/17 12:54 Dose: 2 mg Hydrocortisone (Cortef) 10 mg PO HS [facility] Last Admin: 08/23/17 21:08 Dose: 10 mg Insulin Detemir (Levemir) 12 units SC HS [facility] Last Admin: 08/23/17 21:13 Dose: 12 units Insulin Human Lispro (Humalog) 0 units SC ACHS [facility] Last Admin: 08/24/17 12:53 Dose: Not Given Insulin Human Lispro (Humalog) 4 units SC AC [facility] Last Admin: 08/24/17 12:51 Dose: 4 units Levothyroxine Sodium (Synthroid) 25 mcg PO DAILY@0630 [facility] Last Admin: 08/24/17 06:08 Dose: 25 mcg Magnesium Oxide (Mag-Ox) 400 mg PO DAILY [facility] Last Admin: 08/24/17 09:36 Dose: 400 mg Metformin HCl (Glucophage) 500 mg PO BID [facility] Last Admin: 08/24/17 09:37 Dose: 500 mg Metoprolol Tartrate (Lopressor) 25 mg PO Q12 [facility] Last Admin: 08/24/17 09:37 Dose: 25 mg Pantoprazole Sodium (Protonix Ec Tab) 40 mg PO DAILY [facility] Last Admin: 08/24/17 09:38 Dose: 40 mg Promethazine HCl (Phenergan Syrup) 6.25 mg PO Q6 PRN PRN Reason: Cough Last Admin: 08/23/17 08:19 Dose: 6.25 mg - Labs Labs: 08/24/17 04:35 08/24/17 04:35 - Head Exam Head Exam: ATRAUMATIC - Eye Exam Eye Exam: Normal appearance - ENT Exam ENT Exam: Mucous Membranes Dry - Respiratory Exam Respiratory Exam: NORMAL BREATHING PATTERN - Cardiovascular Exam Cardiovascular Exam: +S1, +S2 - GI/Abdominal Exam GI & Abdominal Exam: Normal Bowel Sounds Assessment and Plan (1) Hypocalcemia syndrome Assessment & Plan: ? related to denosumab vs lenalidomide on supplementation Status: Acute (2) Anemia Assessment & Plan: chronic disease, multiple myeloma, myeloma treatment. Status: Resolved (3) Multiple myeloma Assessment & Plan: outpatient treatment Status: Chronic
[2017-08-24 15:38] LABS: AMYLASE 65 U/L (30-110); LIPASE 47 U/L (23-300)
[2017-08-24] MEDS ORDERED: Magnesium Sulfate 2 gm/50 ml 2 GM/50 ML BAG IVPB ONE (16:21)
--- NOTE | 2017-08-24 17:11 | CP.PCM.PCO ---
Physician Communication Note - Physician Communication Note Physician Communication Note: Brenda Byrne Addendum Addendum: 08/24/17 17:07 Reviewed EKG with candy packer and patient found to have significant inferior wall T-wave inversions when compared with prior EKGs. Patient is asymptomatic. Called and spoke with Dr Piña and after reviewing labs, EKGs, and other imaging the decision was made to repeat the EKG, administer 2g Magnesium, and order an echo. Dr Piña said that since patient is asymptomatic Troponins were not indicated at this time.
[2017-08-24] MEDS: Proshield Plus GEL TOP SCH (17:50)
--- NOTE | 2017-08-24 17:50 | CP.PCM.PN ---
Subjective - Date & Time of Evaluation Date of Evaluation: 08/24/17 Time of Evaluation: 17:49 - Subjective Subjective: PT FEELS BETTER. QT IMPROVED. Objective - Vital Signs/Intake and Output Vital Signs (last 24 hours): Temp Pulse Resp BP Pulse Ox 98.7 F 71 18 121/58 L 100 08/24/17 16:00 08/24/17 16:00 08/24/17 16:00 08/24/17 16:00 08/24/17 16:00 Intake and Output: 08/24/17 08/24/17 06:59 18:59 Intake Total 1000 24 Output Total 3300 Balance -2300 24 - Medications Medications: Current Medications Acetylcysteine (Acetylcysteine 20%) 2 ml INH RBID [facility] Last Admin: 08/24/17 07:36 Dose: 2 ml Albuterol/Ipratropium (Duoneb 3 Mg/0.5 Mg (3 Ml) Ud) 3 ml INH RQ4 PRN PRN Reason: Shortness of Breath Last Admin: 08/21/17 17:00 Dose: 3 ml Albuterol/Ipratropium (Duoneb 3 Mg/0.5 Mg (3 Ml) Ud) 3 ml INH RQ6 [facility] Last Admin: 08/24/17 13:15 Dose: Not Given Alprazolam (Xanax) 0.5 mg PO Q8 PRN PRN Reason: Anxiety Aripiprazole (Abilify) 5 mg PO HS [facility] Last Admin: 08/23/17 21:08 Dose: 5 mg Aspirin (Ecotrin) 81 mg PO DAILY [facility] Last Admin: 08/24/17 09:39 Dose: 81 mg Buspirone HCl (Buspar) 10 mg PO Q12@1000,2200 [facility] Last Admin: 08/24/17 09:39 Dose: 10 mg Calcitriol (Rocaltrol) 0.5 mcg PO BID [facility] Last Admin: 08/24/17 09:41 Dose: 0.5 mcg Calcium Carbonate (Oscal) 500 mg PO BIDWM [facility] Last Admin: 08/24/17 09:38 Dose: 500 mg Clonazepam (Klonopin) 0.5 mg PO DAILY PRN PRN Reason: Anxiety Last Admin: 08/23/17 21:18 Dose: 0.5 mg Dexamethasone (Decadron) 20 mg PO MON [facility] Last Admin: 08/23/17 09:33 Dose: Not Given Dextrose (Dextrose 50% Inj) 0 ml IV STAT PRN; Protocol PRN Reason: Hypoglycemia Protocol Last Admin: 08/22/17 17:17 Dose: 50 ml Dextrose (Glutose 15) 0 gm PO ONCE PRN; Protocol PRN Reason: Hypoglycemia Protocol Dimethicone (Proshield Plus Skin Protectant) 1 applic TOP Q8 [facility] Divalproex Sodium (Depakote Dr(*Bid*)) 250 mg PO BID [facility] Last Admin: 08/24/17 09:36 Dose: 250 mg Enalapril Maleate (Vasotec) 2.5 mg PO DAILY [facility] Furosemide (Lasix) 20 mg PO Q48H [facility] Last Admin: 08/23/17 22:54 Dose: 20 mg Glucagon (Glucagen Diagnostic Kit) 0 mg IM STAT PRN; Protocol PRN Reason: Hypoglycemia Protocol Heparin Sodium (Porcine) (Heparin) 5,000 units SC Q8 [facility] PRN Reason: Protocol Last Admin: 08/24/17 17:46 Dose: 5,000 units Home Med (Riociguat [Adempas]) 2 mg PO TID [facility] Last Admin: 08/24/17 12:54 Dose: 2 mg Hydrocortisone (Cortef) 10 mg PO HS [facility] Last Admin: 08/23/17 21:08 Dose: 10 mg Insulin Detemir (Levemir) 12 units SC HS [facility] Last Admin: 08/23/17 21:13 Dose: 12 units Insulin Human Lispro (Humalog) 0 units SC ACHS [facility] Last Admin: 08/24/17 16:30 Dose: Not Given Insulin Human Lispro (Humalog) 4 units SC AC [facility] Last Admin: 08/24/17 12:51 Dose: 4 units Levothyroxine Sodium (Synthroid) 25 mcg PO DAILY@0630 [facility] Last Admin: 08/24/17 06:08 Dose: 25 mcg Magnesium Oxide (Mag-Ox) 400 mg PO DAILY [facility] Last Admin: 08/24/17 09:36 Dose: 400 mg Metformin HCl (Glucophage) 500 mg PO BID [facility] Last Admin: 08/24/17 17:46 Dose: 500 mg Metoprolol Tartrate (Lopressor) 25 mg PO Q12 [facility] Last Admin: 08/24/17 09:37 Dose: 25 mg Pantoprazole Sodium (Protonix Ec Tab) 40 mg PO DAILY [facility] Last Admin: 08/24/17 09:38 Dose: 40 mg Promethazine HCl (Phenergan Syrup) 6.25 mg PO Q6 PRN PRN Reason: Cough Last Admin: 08/23/17 08:19 Dose: 6.25 mg - Labs Labs: 08/24/17 04:35 08/24/17 04:35 Assessment and Plan (1) Hx of ventricular tachycardia Status: Acute (2) Hypomagnesemia Status: Acute (3) T wave inversion in EKG Status: Acute (4) Hypocalcemia syndrome Status: Acute (5) Abnormal QT interval present on electrocardiogram Status: Acute (6) Cor pulmonale (chronic) Status: Acute (7) Syncope and collapse Status: Acute (8) Abnormal involuntary movements Status: Acute (9) Multiple myeloma Status: Chronic (10) Pulmonary hypertension Status: Chronic - Assessment and Plan (Free Text) Plan: EKG REVIEWED ARTIFACT NOTED LIKELY SECONDARY TO INVOLUNTARY MUSCLE MOVEMENTS. WOULD REPEAT EKG. AVOID PLACING LIMB LEADS ON EXTREMITIES.
--- NOTE | 2017-08-24 17:56 | PN ---
DATE: 08/24/2017 ENDO FOLLOWUP NOTE LOCATION: In ICU 431. SUBJECTIVE: This is a 71-year-old female with recent syncopal episode and was found to have marked symptomatic hypocalcemia and has since then improved clinically and metabolically as noted thereof. She received calcium bolus injections and also calcium and also was given a calcium maintenance infusion over the weekend as noted. Moreover, she also had glycemic fluctuations that have improved accordingly as noted. 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 The corrected chemistries of the patient showed a BUN of 18, sodium 139, potassium 4.7, chloride 103, CO2 of 25, glucose 119, and creatinine 0.7. Her glucose values have ranged from 108-127 mg/dL. Her latest calcium level is 8.1 with the albumin of 3 and a corrected calcium of 9.1 mg/dL. The repeat thyroid studies are actually pending at this time, but the last recorded thyroid studies showed a T4 of 3.5 with a TSH of 2.5. Her cortisol level is 16.8 mcg/dL with an ACTH of 17. Her A1c is 8.6%, which is really elevated and indicative of suboptimal metabolic control of her diabetic condition. So at this time, we will continue the hydrocortisone given as 10 mg at bedtime with Decadron given as 20 mg once weekly as ordered. We will continue also the levothyroxine given as 25 mcg once daily as ordered. We will modify the coverage scale to obviate hypoglycemia. We will modify the basal and bolus insulin regimen and lower the Humalog to 4 units subcu t.i.d. before meals to start today. We will also lower the basal insulin with Levemir to be given as 12 units subcu at bedtime daily as given. We will titrate incrementally as indicated to optimize metabolic control. We will obtain serial chemistries and supplement accordingly needed. We will follow. Irene Mann MD
[2017-08-24] MEDS: Insulin Detemir 100 Units/ml Inj SC SCH (21:52)
[2017-08-25] MEDS: Proshield Plus GEL TOP SCH ×3 (01:00→16:48)
[2017-08-25] MEDS: Albuterol-Ipratrop 3 mg / 0.5 (3 ml) UD INH SCH ×4 (01:05→19:00)
[2017-08-25 05:35] LABS: HEMOGLOBIN 9.5 g/dL (12.0-16.0); MEAN CELL VOLUME 90.1 fl (81.0-99.0); MEAN CORPUSCULAR HEMOGLOBIN 29.2 pg (27.0-31.0); MEAN CORPUSCULAR HGB CONC 32.4 g/dL (33.0-37.0); RBC 3.26 Mil/uL (3.80-5.20); RED CELL DISTRIBUTION WIDTH 17.1 % (11.5-14.5); WHITE BLOOD COUNT 4.4 K/uL (4.8-10.8)
[2017-08-25 06:16] LABS: BLOOD UREA NITROGEN 15 mg/dl (7-17); CALCIUM 8.5 mg/dL (8.4-10.2); GFR AFRICAN-AMERICAN > 60; GFR NON-AFRICAN AMERICAN > 60
[2017-08-25] MEDS: Levothyroxine 25 MCG TAB PO SCH (06:22)
[2017-08-25] MEDS ORDERED: Magnesium Sulfate 2 gm/50 ml 2 GM/50 ML BAG IVPB ONE ×3 (06:34→15:00)
[2017-08-25] MEDS: Insulin Lispro (humaLOG) 100 Units/ml Inj SC SCH ×7 (07:56→21:16)
[2017-08-25] MEDS: Acetylcysteine 20% Inhal Soln (4ml) INH SCH ×2 (08:06→19:00)
[2017-08-25] MEDS: Pantoprazole 40 mg EC Tab PO SCH (08:28)
--- NOTE | 2017-08-25 09:30 | CARD ---
APPROVED REPORT EKG Measurement Heart [id number] MO [id number] <Conclusion> Normal sinus rhythm Possible Left atrial enlargement ST & T wave abnormality, consider anterior ischemia Prolonged QT Abnormal ECG
--- NOTE | 2017-08-25 09:41 | CP.PCM.PN ---
Subjective - Date & Time of Evaluation Date of Evaluation: 08/25/17 Time of Evaluation: 09:41 - Subjective Subjective: No acute overnight events. Pt states that her breathing has improved. Awake and more alert today. Only oriented to name only. Objective - Vital Signs/Intake and Output Vital Signs (last 24 hours): Temp Pulse Resp BP Pulse Ox 98.8 F 75 12 132/60 81 L 08/25/17 08:00 08/25/17 08:29 08/25/17 08:00 08/25/17 08:29 08/25/17 08:00 Intake and Output: 08/25/17 08/25/17 06:59 18:59 Intake Total 50 200 Output Total 1100 Balance -1050 200 - Medications Medications: Current Medications Acetylcysteine (Acetylcysteine 20%) 2 ml INH RBID [facility] Last Admin: 08/25/17 08:06 Dose: 2 ml Albuterol/Ipratropium (Duoneb 3 Mg/0.5 Mg (3 Ml) Ud) 3 ml INH RQ4 PRN PRN Reason: Shortness of Breath Last Admin: 08/21/17 17:00 Dose: 3 ml Albuterol/Ipratropium (Duoneb 3 Mg/0.5 Mg (3 Ml) Ud) 3 ml INH RQ6 [facility] Last Admin: 08/25/17 08:06 Dose: 3 ml Alprazolam (Xanax) 0.5 mg PO Q8 PRN PRN Reason: Anxiety Aripiprazole (Abilify) 5 mg PO HS [facility] Last Admin: 08/24/17 21:49 Dose: 5 mg Aspirin (Ecotrin) 81 mg PO DAILY [facility] Last Admin: 08/25/17 08:28 Dose: 81 mg Buspirone HCl (Buspar) 10 mg PO Q12@1000,2200 [facility] Last Admin: 08/24/17 21:49 Dose: 10 mg Calcitriol (Rocaltrol) 0.5 mcg PO BID [facility] Last Admin: 08/25/17 08:27 Dose: 0.5 mcg Calcium Carbonate (Oscal) 500 mg PO BIDWM [facility] Last Admin: 08/25/17 08:31 Dose: 500 mg Clonazepam (Klonopin) 0.5 mg PO DAILY PRN PRN Reason: Anxiety Last Admin: 08/23/17 21:18 Dose: 0.5 mg Dexamethasone (Decadron) 20 mg PO MON [facility] Last Admin: 08/23/17 09:33 Dose: Not Given Dextrose (Dextrose 50% Inj) 0 ml IV STAT PRN; Protocol PRN Reason: Hypoglycemia Protocol Last Admin: 08/22/17 17:17 Dose: 50 ml Dextrose (Glutose 15) 0 gm PO ONCE PRN; Protocol PRN Reason: Hypoglycemia Protocol Dimethicone (Proshield Plus Skin Protectant) 1 applic TOP Q8 [facility] Last Admin: 08/25/17 08:32 Dose: 1 applic Divalproex Sodium (Depakote Dr(*Bid*)) 250 mg PO BID [facility] Last Admin: 08/24/17 09:36 Dose: 250 mg Enalapril Maleate (Vasotec) 2.5 mg PO DAILY [facility] Furosemide (Lasix) 20 mg PO Q48H [facility] Last Admin: 08/23/17 22:54 Dose: 20 mg Glucagon (Glucagen Diagnostic Kit) 0 mg IM STAT PRN; Protocol PRN Reason: Hypoglycemia Protocol Heparin Sodium (Porcine) (Heparin) 5,000 units SC Q8 [facility] PRN Reason: Protocol Last Admin: 08/25/17 08:26 Dose: 5,000 units Home Med (Riociguat [Adempas]) 2 mg PO TID [facility] Last Admin: 08/25/17 08:27 Dose: 2 mg Hydrocortisone (Cortef) 10 mg PO HS [facility] Last Admin: 08/24/17 21:49 Dose: 10 mg Magnesium Sulfate (Magnesium Sulfate 2 Gm/50 Ml Water) 2 gm in 50 mls @ 50 mls/ hr IVPB ONCE ONE PRN Reason: 2 GM/HR Stop: 08/25/17 15:59 Insulin Detemir (Levemir) 12 units SC HS [facility] Last Admin: 08/24/17 21:52 Dose: 12 units Insulin Human Lispro (Humalog) 0 units SC ACHS [facility] Last Admin: 08/25/17 07:56 Dose: Not Given Insulin Human Lispro (Humalog) 4 units SC AC [facility] Last Admin: 08/25/17 08:12 Dose: 4 units Levothyroxine Sodium (Synthroid) 25 mcg PO DAILY@0630 [facility] Last Admin: 08/25/17 06:22 Dose: 25 mcg Metformin HCl (Glucophage) 500 mg PO BID [facility] Last Admin: 08/25/17 08:29 Dose: 500 mg Metoprolol Tartrate (Lopressor) 25 mg PO Q12 [facility] Last Admin: 08/25/17 08:29 Dose: 25 mg Pantoprazole Sodium (Protonix Ec Tab) 40 mg PO DAILY [facility] Last Admin: 08/25/17 08:28 Dose: 40 mg Promethazine HCl (Phenergan Syrup) 6.25 mg PO Q6 PRN PRN Reason: Cough Last Admin: 08/23/17 08:19 Dose: 6.25 mg - Labs Labs: 08/25/17 04:30 08/25/17 04:30 - Constitutional Appears: No Acute Distress, Other (sitting down on chair, on face mask, breathing tx) - Head Exam Head Exam: NORMAL INSPECTION - ENT Exam ENT Exam: Mucous Membranes Moist - Respiratory Exam Respiratory Exam: Wheezes - Cardiovascular Exam Cardiovascular Exam: REGULAR RHYTHM, +S1, +S2 - GI/Abdominal Exam GI & Abdominal Exam: Soft, Normal Bowel Sounds. absent: Tenderness - Extremities Exam Extremities Exam: absent: Calf Tenderness, Pedal Edema Additional comments: baseline tremor, improving lower extremity worse then upper extremity Tremor resolves with action - Neurological Exam Neurological Exam: Alert, Awake. absent: Oriented x3 (oriented to person only ) - Psychiatric Exam Psychiatric exam: Normal Affect, Normal Mood Assessment and Plan - Assessment and Plan (Free Text) Assessment: Assessment/Plan: 71 YO female with multiple co-morbidities (PMHx including Multiple Myeloma, hx of multiple fractures (recent left hip fracture), IDDM type 2, HTN, Pulm HTN, COPD on home oxygen and CPAP, hx of PE s/p IVC filter in 2014) is admitted for unwitnessed syncope. Admission complicated by severe hypocalcemia and QTc prolongation. Unwitnessed syncopal episode -stable, none since admission -likely acute on chronic; r/o seizures and CVA -Head CT w/o contrast: No acute ICH abnormality -Neurology on consult; EEG, MRI, c/w [place] -low prolactin; unable to do MRI of brain, EEG due to tremors -CT head 08/23: no acute changes noted Hypocalcemia, Prolong QTc -Ca resolved, today 8.5 -Qtc improving since admission -likely 2/2 to multiple myleoma tx medication -Endocrinology on consult; cont levo, IVF maintenance 48hrs, trend Calcium, CaCO3 500mg BID, Calcitriol 0.5mg BID, TSH -Cardiology on consult; daily EKGs, Mg replaced to avoid Torsades -EP; Dr. Burnett consulted; pt may require defib later, correct electrolytes and follow up EKG ST changes on EKG (08/24) -new noted on EKG -likely 2/2 to electrolyte imbalance -Cardiology aware, given Mg and Ekg and Echo today -Echo normal 08/25 -EKG today same ST changes noted 08/24, Qtc 457 -pending cardio recs Chest pain -resolved -chest pain likely 2/2 to acute trauma, fall -prior catheterizations with normal coronaries and echo EF showed normal coronaries with Pulm HTN (most recent 10/20/2016) -Echo 05/11/17: normal LVEF 65-70% with mild paradoxical septal motion -troponin 0.1520, 2nd and 3rd trop neg -pro BNP [id number] -Cardiology on consult; EP consult, daily EKGs, Mg replaced to avoid Torsades -EP; Dr. Burnett consulted; pt may require defib later, correct electrolytes and follow up EKG COPD -chronic, stable -Methylprednisolone 125mg IVP once given in ED -VBG: pH 7.35, pO2 31, pCO2 41, HCO3 21.5, Lactate 1.8 -continue home medications: Duoneb INH solution Q4 PRN SOB -continue home regimen: 2L supplemental O2 via nasal cannula during the day, CPAP at night -Pulmonary consulted; cont current meds Pulmonary HTN -chronic, stable -c/w home medications: Furosemide 20 mg PO Q48H -pt not on home Riociguat 2mg, never picked up rx per pharmacy -Meds verified with pharmacy, [facility] -c/w Riociguat 2mg PO TID -Pulmonary consulted;follow up recs HTN -chronic, controlled -held home medication due to hypotension on admission: Enalapril 2.5mg PO QD -c/w with Aspirin 81 mg PO QD -monitor BP IDDM type 2 -chronic, controlled -HbA1c 8.6 (08/21) -continue home medications: Insulin Levemir 14 units SC QAM, Insulin Levemir 10 units SC QPM, Insulin Lispro 5 units SC TID with meals, Metformin 500mg PO BID, Atorvastatin 20mg PO QHS -hypoglycemia protocol in place Hypothyroidism -chronic, controlled -endocrine on board; cont Levothyroxine 25 mcg PO QD Restless leg syndrome -chronic -continue home medications: Clonazepam 0.5 mg PO QD Depression -chronic, controlled -continue home medications: Buspirone 10mg PO Q12 -c/w Aripiprazole 5mg PO QHS -will decrease abilify weekly per Neuro recs to decrease seizure threshold Multiple Myeloma -chronic -continue home medications: Dexamethasone 20mg once a week on mondays, Hydrocortisone 10mg PO QHS -patient follow regularly with heme/onc Dr. Vilchis -Hem/Onc on case while inpatient Anemia -acute on chronic, likely secondary to multiple myeloma -stable DVT prophylaxis -Heparin SC
--- NOTE | 2017-08-25 09:52 | CP.PCM.PN ---
Subjective - Date & Time of Evaluation Date of Evaluation: 08/25/17 Time of Evaluation: 09:51 - Subjective Subjective: Ms. Perkins was seen and examined at the bedside in ICU. She is alert, oriented x3, She is sitting up in her bedside chair, able to control her posture. She denies any headache, but with very mild dizziness with change of position which resolved quickly. She is able to follow simple commands and able to let her needs known to staff. EEG was not done due to her involuntary tremors. According to the primary team, she had an episode of confusion yesterday which depakote was put on hold. There was no untoward events overnight. Objective - Vital Signs/Intake and Output Vital Signs (last 24 hours): Temp Pulse Resp BP Pulse Ox 98.8 F 75 12 132/60 81 L 08/25/17 08:00 08/25/17 08:29 08/25/17 08:00 08/25/17 08:29 08/25/17 08:00 Intake and Output: 08/25/17 08/25/17 06:59 18:59 Intake Total 50 200 Output Total 1100 Balance -1050 200 - Medications Medications: Current Medications Acetylcysteine (Acetylcysteine 20%) 2 ml INH RBID [facility] Last Admin: 08/25/17 08:06 Dose: 2 ml Albuterol/Ipratropium (Duoneb 3 Mg/0.5 Mg (3 Ml) Ud) 3 ml INH RQ4 PRN PRN Reason: Shortness of Breath Last Admin: 08/21/17 17:00 Dose: 3 ml Albuterol/Ipratropium (Duoneb 3 Mg/0.5 Mg (3 Ml) Ud) 3 ml INH RQ6 [facility] Last Admin: 08/25/17 08:06 Dose: 3 ml Alprazolam (Xanax) 0.5 mg PO Q8 PRN PRN Reason: Anxiety Aripiprazole (Abilify) 5 mg PO HS [facility] Last Admin: 08/24/17 21:49 Dose: 5 mg Aspirin (Ecotrin) 81 mg PO DAILY [facility] Last Admin: 08/25/17 08:28 Dose: 81 mg Buspirone HCl (Buspar) 10 mg PO Q12@1000,2200 [facility] Last Admin: 08/24/17 21:49 Dose: 10 mg Calcitriol (Rocaltrol) 0.5 mcg PO BID [facility] Last Admin: 08/25/17 08:27 Dose: 0.5 mcg Calcium Carbonate (Oscal) 500 mg PO BIDWM [facility] Last Admin: 08/25/17 08:31 Dose: 500 mg Clonazepam (Klonopin) 0.5 mg PO DAILY PRN PRN Reason: Anxiety Last Admin: 08/23/17 21:18 Dose: 0.5 mg Dexamethasone (Decadron) 20 mg PO MON [facility] Last Admin: 08/23/17 09:33 Dose: Not Given Dextrose (Dextrose 50% Inj) 0 ml IV STAT PRN; Protocol PRN Reason: Hypoglycemia Protocol Last Admin: 08/22/17 17:17 Dose: 50 ml Dextrose (Glutose 15) 0 gm PO ONCE PRN; Protocol PRN Reason: Hypoglycemia Protocol Dimethicone (Proshield Plus Skin Protectant) 1 applic TOP Q8 [facility] Last Admin: 08/25/17 08:32 Dose: 1 applic Divalproex Sodium (Depakote Dr(*Bid*)) 250 mg PO BID [facility] Last Admin: 08/24/17 09:36 Dose: 250 mg Enalapril Maleate (Vasotec) 2.5 mg PO DAILY [facility] Furosemide (Lasix) 20 mg PO Q48H [facility] Last Admin: 08/23/17 22:54 Dose: 20 mg Glucagon (Glucagen Diagnostic Kit) 0 mg IM STAT PRN; Protocol PRN Reason: Hypoglycemia Protocol Heparin Sodium (Porcine) (Heparin) 5,000 units SC Q8 [facility] PRN Reason: Protocol Last Admin: 08/25/17 08:26 Dose: 5,000 units Home Med (Riociguat [Adempas]) 2 mg PO TID [facility] Last Admin: 08/25/17 08:27 Dose: 2 mg Hydrocortisone (Cortef) 10 mg PO HS [facility] Last Admin: 08/24/17 21:49 Dose: 10 mg Magnesium Sulfate (Magnesium Sulfate 2 Gm/50 Ml Water) 2 gm in 50 mls @ 50 mls/ hr IVPB ONCE ONE PRN Reason: 2 GM/HR Stop: 08/25/17 15:59 Insulin Detemir (Levemir) 12 units SC HS [facility] Last Admin: 08/24/17 21:52 Dose: 12 units Insulin Human Lispro (Humalog) 0 units SC ACHS [facility] Last Admin: 08/25/17 07:56 Dose: Not Given Insulin Human Lispro (Humalog) 4 units SC AC [facility] Last Admin: 08/25/17 08:12 Dose: 4 units Levothyroxine Sodium (Synthroid) 25 mcg PO DAILY@0630 [facility] Last Admin: 08/25/17 06:22 Dose: 25 mcg Metformin HCl (Glucophage) 500 mg PO BID [facility] Last Admin: 08/25/17 08:29 Dose: 500 mg Metoprolol Tartrate (Lopressor) 25 mg PO Q12 [facility] Last Admin: 08/25/17 08:29 Dose: 25 mg Pantoprazole Sodium (Protonix Ec Tab) 40 mg PO DAILY [facility] Last Admin: 08/25/17 08:28 Dose: 40 mg Promethazine HCl (Phenergan Syrup) 6.25 mg PO Q6 PRN PRN Reason: Cough Last Admin: 08/23/17 08:19 Dose: 6.25 mg - Labs Labs: 08/25/17 04:30 08/25/17 04:30 - Constitutional Appears: No Acute Distress - Head Exam Head Exam: NORMAL INSPECTION - Eye Exam Pupil Exam: PERRL - Neurological Exam Neurological Exam: Alert, Awake, Oriented x3 Neuro motor strength exam: Left Upper Extremity: 5, Right Upper Extremity: 5, Left Lower Extremity: 4, Right Lower Extremity: 4 Additional comments: alert, oriented, follows commands , sensation is intact. Assessment and Plan (1) Syncope and collapse Assessment & Plan: Case discussed with Dr. Rodrigez, continue all current medical, physical, and occupational therapies. Recommend hydration,follow any cardiology orders, blood pressure and glycemic control. Pending MRI of the brain. Since the patient is back to her baseline and AED was on hold, neurology is signing off. Please re- consult as needed. Status: Acute
--- NOTE | 2017-08-25 09:54 | CARD ---
APPROVED REPORT EKG Measurement Heart [id number] [id number] <Conclusion> Sinus rhythm with baseline artefacts Prolonged QT Abnormal ECG
--- NOTE | 2017-08-25 11:03 | CP.PCM.PN ---
Subjective - Date & Time of Evaluation Date of Evaluation: 08/25/17 Time of Evaluation: 11:02 - Subjective Subjective: OOB TO CHAIR SOB IMPROVED LUNGS-FAIR AERATION WILL CONTINUE CURRENT RX WILL FOLLOW WITH YOU Objective - Vital Signs/Intake and Output Vital Signs (last 24 hours): Temp Pulse Resp BP Pulse Ox 98.8 F 67 20 104/52 L 98 08/25/17 08:00 08/25/17 10:00 08/25/17 10:00 08/25/17 10:00 08/25/17 10:00 Intake and Output: 08/25/17 08/25/17 06:59 18:59 Intake Total 50 200 Output Total 1100 Balance -1050 200 - Medications Medications: Current Medications Acetylcysteine (Acetylcysteine 20%) 2 ml INH RBID [facility] Last Admin: 08/25/17 08:06 Dose: 2 ml Albuterol/Ipratropium (Duoneb 3 Mg/0.5 Mg (3 Ml) Ud) 3 ml INH RQ4 PRN PRN Reason: Shortness of Breath Last Admin: 08/21/17 17:00 Dose: 3 ml Albuterol/Ipratropium (Duoneb 3 Mg/0.5 Mg (3 Ml) Ud) 3 ml INH RQ6 [facility] Last Admin: 08/25/17 08:06 Dose: 3 ml Alprazolam (Xanax) 0.5 mg PO Q8 PRN PRN Reason: Anxiety Aripiprazole (Abilify) 5 mg PO HS [facility] Last Admin: 08/24/17 21:49 Dose: 5 mg Aspirin (Ecotrin) 81 mg PO DAILY [facility] Last Admin: 08/25/17 08:28 Dose: 81 mg Buspirone HCl (Buspar) 10 mg PO Q12@1000,2200 [facility] Last Admin: 08/25/17 10:52 Dose: 10 mg Calcitriol (Rocaltrol) 0.5 mcg PO BID [facility] Last Admin: 08/25/17 08:27 Dose: 0.5 mcg Calcium Carbonate (Oscal) 500 mg PO BIDWM [facility] Last Admin: 08/25/17 08:31 Dose: 500 mg Clonazepam (Klonopin) 0.5 mg PO DAILY PRN PRN Reason: Anxiety Last Admin: 08/23/17 21:18 Dose: 0.5 mg Dexamethasone (Decadron) 20 mg PO MON [facility] Last Admin: 08/23/17 09:33 Dose: Not Given Dextrose (Dextrose 50% Inj) 0 ml IV STAT PRN; Protocol PRN Reason: Hypoglycemia Protocol Last Admin: 08/22/17 17:17 Dose: 50 ml Dextrose (Glutose 15) 0 gm PO ONCE PRN; Protocol PRN Reason: Hypoglycemia Protocol Dimethicone (Proshield Plus Skin Protectant) 1 applic TOP Q8 [facility] Last Admin: 08/25/17 08:32 Dose: 1 applic Divalproex Sodium (Depakote Dr(*Bid*)) 250 mg PO BID [facility] Last Admin: 08/24/17 09:36 Dose: 250 mg Enalapril Maleate (Vasotec) 2.5 mg PO DAILY [facility] Furosemide (Lasix) 20 mg PO Q48H [facility] Last Admin: 08/23/17 22:54 Dose: 20 mg Glucagon (Glucagen Diagnostic Kit) 0 mg IM STAT PRN; Protocol PRN Reason: Hypoglycemia Protocol Heparin Sodium (Porcine) (Heparin) 5,000 units SC Q8 [facility] PRN Reason: Protocol Last Admin: 08/25/17 08:26 Dose: 5,000 units Home Med (Riociguat [Adempas]) 2 mg PO TID [facility] Last Admin: 08/25/17 08:27 Dose: 2 mg Hydrocortisone (Cortef) 10 mg PO HS [facility] Last Admin: 08/24/17 21:49 Dose: 10 mg Magnesium Sulfate (Magnesium Sulfate 2 Gm/50 Ml Water) 2 gm in 50 mls @ 50 mls/ hr IVPB ONCE ONE PRN Reason: 2 GM/HR Stop: 08/25/17 15:59 Insulin Detemir (Levemir) 12 units SC HS [facility] Last Admin: 08/24/17 21:52 Dose: 12 units Insulin Human Lispro (Humalog) 0 units SC ACHS [facility] Last Admin: 08/25/17 07:56 Dose: Not Given Insulin Human Lispro (Humalog) 4 units SC AC [facility] Last Admin: 08/25/17 08:12 Dose: 4 units Levothyroxine Sodium (Synthroid) 25 mcg PO DAILY@0630 [facility] Last Admin: 08/25/17 06:22 Dose: 25 mcg Metformin HCl (Glucophage) 500 mg PO BID [facility] Last Admin: 08/25/17 08:29 Dose: 500 mg Metoprolol Tartrate (Lopressor) 25 mg PO Q12 [facility] Last Admin: 08/25/17 08:29 Dose: 25 mg Pantoprazole Sodium (Protonix Ec Tab) 40 mg PO DAILY [facility] Last Admin: 08/25/17 08:28 Dose: 40 mg Promethazine HCl (Phenergan Syrup) 6.25 mg PO Q6 PRN PRN Reason: Cough Last Admin: 08/23/17 08:19 Dose: 6.25 mg - Labs Labs: 08/25/17 04:30 08/25/17 04:30
--- NOTE | 2017-08-25 12:10 | CP.CCUPN ---
<JamisonYoni - Last Filed: 08/25/17 12:16> CCU Subjective - Physician Review Subjective (Free Text): ICU progress note Patient seen at bedside this AM. Alert and able to follow commands. Good urine output noted on saeed. Denies CP, SOB, palpitations, abd pain, nausea or vomiting. Pauses her speech at times as per patient due to memory loss. CCU Objective - Vital Signs / Intake & Output Vital Signs (Last 4 hours): Vital Signs Pulse Resp BP Pulse Ox 08/25/17 10:00 67 20 104/52 L 98 08/25/17 08:29 75 132/60 Intake and Output (Last 8hrs): Intake & Output 08/24/17 08/25/17 08/25/17 22:59 06:59 14:59 Intake Total 50 200 Output Total 1000 1100 Balance -950 -1100 200 Weight 194 lb Intake: IV 0 Oral 50 200 Output: Urine 1000 1100 Urethral (Saeed) 1000 1100 Other: # Bowel Movements 1 - Physical Exam Head: Positive for: Atraumatic, Normocephalic Pupils: Positive for: PERRL Extroacular Muscles: Positive for: EOMI Conjunctiva: Positive for: Normal Mouth: Positive for: Dry (Slightly) Nose (External): Positive for: Atraumatic Neck: Negative for: JVD, Lymphadenopathy Respiratory/Chest: Positive for: Decreased Breath Sounds. Negative for: Respiratory Distress, Accessory Muscle Use, Wheezes Cardiovascular: Positive for: Regular Rate and Rhythm, Normal S1, S2. Negative for: Tachycardic, Gallop Abdomen: Positive for: Normal Bowel Sounds. Negative for: Tenderness, Distention, Peritoneal Signs, Guarding Upper Extremity: Positive for: Capillary Refill < 2s. Negative for: Edema, Swelling, Erythema Lower Extremity: Positive for: Capillary Refill < 2 s. Negative for: Edema, Swelling, Erythema Neurological: Positive for: Other (Tremor that seems better at rest. Unable to determine if aphasic at times. Memory loss). Negative for: Gait Normal Skin: Positive for: Dry Psychiatric: Positive for: Alert - Medications Active Medications: Active Medications Generic Name Dose Route Start Last Admin Trade Name Freq PRN Reason Stop Dose Admin Acetylcysteine 2 ml 08/21/17 20:00 08/25/17 08:06 Acetylcysteine 20% INH 2 ml RBID [facility] Administration Albuterol/Ipratropium 3 ml 06/15/18 05:01 08/21/17 17:00 Duoneb 3 Mg/0.5 Mg (3 Ml) Ud INH 3 ml RQ4 PRN Administration Shortness of Breath Albuterol/Ipratropium 3 ml 08/20/17 14:00 08/25/17 08:06 Duoneb 3 Mg/0.5 Mg (3 Ml) Ud INH 3 ml RQ6 [facility] Administration Alprazolam 0.5 mg 08/23/17 21:40 Xanax PO Q8 PRN Anxiety Aripiprazole 5 mg 08/20/17 22:00 08/24/17 21:49 Abilify PO 5 mg HS [facility] Administration Aspirin 81 mg 08/20/17 09:00 08/25/17 08:28 Ecotrin PO 81 mg DAILY [facility] Administration Buspirone HCl 10 mg 08/20/17 22:00 08/25/17 10:52 Buspar PO 10 mg Q12@1000,2200 [facility] Administration Calcitriol 0.5 mcg 08/20/17 17:00 08/25/17 08:27 Rocaltrol PO 0.5 mcg BID [facility] Administration Calcium Carbonate 500 mg 08/21/17 17:00 08/25/17 08:31 Oscal PO 500 mg BIDWM [facility] Administration Clonazepam 0.5 mg 08/19/17 23:45 08/23/17 21:18 Klonopin PO 0.5 mg DAILY PRN Administration Anxiety Dexamethasone 20 mg 08/23/17 09:00 08/23/17 09:33 Decadron PO Not Given MON [facility] Dextrose 0 ml 08/20/17 00:06 08/22/17 17:17 Dextrose 50% Inj IV 50 ml STAT PRN Administration Hypoglycemia Protocol Protocol Dextrose 0 gm 08/20/17 00:06 Glutose 15 PO ONCE PRN Hypoglycemia Protocol Protocol Dimethicone 1 applic 08/24/17 17:00 08/25/17 08:32 Proshield Plus Skin Protectant TOP 1 applic Q8 [facility] Administration Divalproex Sodium 250 mg 08/20/17 17:00 08/24/17 09:36 Depakofernanda iHnes(*Bid*) PO 250 mg BID [facility] Administration Enalapril Maleate 2.5 mg 08/20/17 09:00 Vasotec PO DAILY [facility] Furosemide 20 mg 08/19/17 23:45 08/23/17 22:54 Lasix PO 20 mg Q48H [facility] Administration Glucagon 0 mg 08/20/17 00:06 Glucagen Diagnostic Kit IM STAT PRN Hypoglycemia Protocol Protocol Heparin Sodium (Porcine) 5,000 units 08/22/17 01:00 08/25/17 08:26 Heparin SC 5,000 units Q8 [facility] Administration Protocol Home Med 2 mg 08/20/17 09:00 08/25/17 08:27 Riociguat [Adempas] PO 2 mg TID [facility] Administration Hydrocortisone 10 mg 08/19/17 23:45 08/24/17 21:49 Cortef PO 10 mg HS [facility] Administration Magnesium Sulfate 2 gm in 50 mls @ 50 mls/hr 08/25/17 15:00 Magnesium Sulfate 2 Gm/50 Ml Water IVPB 08/25/17 15:59 ONCE ONE 2 GM/HR Insulin Detemir 12 units 08/23/17 22:00 08/24/17 21:52 Levemir SC 12 units HS [facility] Administration Insulin Human Lispro 0 units 08/20/17 22:00 08/25/17 07:56 Humalog SC Not Given ACHS [facility] Insulin Human Lispro 4 units 08/23/17 16:30 08/25/17 08:12 Humalog SC 4 units AC [facility] Administration Levothyroxine Sodium 25 mcg 08/23/17 06:30 08/25/17 06:22 Synthroid PO 25 mcg DAILY@0630 [facility] Administration Metformin HCl 500 mg 08/20/17 09:00 08/25/17 08:29 Glucophage PO 500 mg BID [facility] Administration Metoprolol Tartrate 25 mg 08/20/17 21:00 08/25/17 08:29 Lopressor PO 25 mg Q12 [facility] Administration Pantoprazole Sodium 40 mg 08/20/17 09:00 08/25/17 08:28 Protonix Ec Tab PO 40 mg DAILY [facility] Administration Promethazine HCl 6.25 mg 08/22/17 08:36 08/23/17 08:19 Phenergan Syrup PO 6.25 mg Q6 PRN Administration Cough - Patient Studies Lab Studies: Microbiology Studies 08/19/17 19:20 Blood Culture - Final Blood-Venous NO GROWTH AFTER 5 DAYS 08/19/17 19:05 Blood Culture - Final Blood-Venous NO GROWTH AFTER 5 DAYS Gram Stain - Final TEST NOT PERFORMED 08/22/17 07:45 Stool Culture - Final Stool NO SALMONELLA, SHIGELLA OR CAMPYLOBACTER ISOLATED. Lab Studies 08/25/17 08/25/17 08/25/17 Range/Units 06:15 04:30 04:30 WBC 4.4 L (4.8-10.8) K/uL RBC 3.26 L (3.80-5.20) Mil/uL Hgb 9.5 L (12.0-16.0) g/dL Hct 29.4 L (34.0-47.0) % MCV 90.1 (81.0-99.0) fl MCH 29.2 (27.0-31.0) pg MCHC 32.4 L (33.0-37.0) g/dL RDW 17.1 H (11.5-14.5) % Plt Count 270 (130-400) K/uL Sodium 137 (132-148) mmol/l Potassium 4.4 (3.6-5.0) MMOL/L Chloride 100 (98-107) mmol/L Carbon Dioxide 32 H (22-30) mmol/L Anion Gap 9 L (10-20) BUN 15 (7-17) mg/dl Creatinine 0.7 (0.7-1.2) mg/dl Est GFR ( Amer) > 60 Est GFR (Non-Af Amer) > 60 POC Glucose (mg/dL) 127 H (65-110) mg/dL Random Glucose 135 H (65-105) mg/dL Calcium 8.5 (8.4-10.2) mg/dL Phosphorus 4.1 (2.5-4.5) mg/dl Magnesium 1.4 L (1.6-2.3) MG/DL Ammonia (11-51) umo/L Amylase (30-110) U/L Lipase (23-300) U/L Ur Random Sodium meq/L Ur Random Potassium mmol/L Urine Chloride (32-290) mmol/L 08/24/17 08/24/17 08/24/17 Range/Units 21:09 21:00 16:37 WBC (4.8-10.8) K/uL RBC (3.80-5.20) Mil/uL Hgb (12.0-16.0) g/dL Hct (34.0-47.0) % MCV (81.0-99.0) fl MCH (27.0-31.0) pg MCHC (33.0-37.0) g/dL RDW (11.5-14.5) % Plt Count (130-400) K/uL Sodium (132-148) mmol/l Potassium (3.6-5.0) MMOL/L Chloride (98-107) mmol/L Carbon Dioxide (22-30) mmol/L Anion Gap (10-20) BUN (7-17) mg/dl Creatinine (0.7-1.2) mg/dl Est GFR ( Amer) Est GFR (Non-Af Amer) POC Glucose (mg/dL) 196 H 61 L (65-110) mg/dL Random Glucose (65-105) mg/dL Calcium (8.4-10.2) mg/dL Phosphorus (2.5-4.5) mg/dl Magnesium 1.7 (1.6-2.3) MG/DL Ammonia (11-51) umo/L Amylase (30-110) U/L Lipase (23-300) U/L Ur Random Sodium meq/L Ur Random Potassium mmol/L Urine Chloride (32-290) mmol/L 08/24/17 08/24/17 08/24/17 Range/Units 15:25 15:25 14:34 WBC (4.8-10.8) K/uL RBC (3.80-5.20) Mil/uL Hgb (12.0-16.0) g/dL Hct (34.0-47.0) % MCV (81.0-99.0) fl MCH (27.0-31.0) pg MCHC (33.0-37.0) g/dL RDW (11.5-14.5) % Plt Count (130-400) K/uL Sodium (132-148) mmol/l Potassium (3.6-5.0) MMOL/L Chloride (98-107) mmol/L Carbon Dioxide (22-30) mmol/L Anion Gap (10-20) BUN (7-17) mg/dl Creatinine (0.7-1.2) mg/dl Est GFR ( Amer) Est GFR (Non-Af Amer) POC Glucose (mg/dL) (65-110) mg/dL Random Glucose (65-105) mg/dL Calcium (8.4-10.2) mg/dL Phosphorus (2.5-4.5) mg/dl Magnesium (1.6-2.3) MG/DL Ammonia 12 (11-51) umo/L Amylase (30-110) U/L Lipase (23-300) U/L Ur Random Sodium 85 meq/L Ur Random Potassium 28.9 mmol/L Urine Chloride 92 (32-290) mmol/L 08/24/17 Range/Units 14:34 WBC (4.8-10.8) K/uL RBC (3.80-5.20) Mil/uL Hgb (12.0-16.0) g/dL Hct (34.0-47.0) % MCV (81.0-99.0) fl MCH (27.0-31.0) pg MCHC (33.0-37.0) g/dL RDW (11.5-14.5) % Plt Count (130-400) K/uL Sodium (132-148) mmol/l Potassium (3.6-5.0) MMOL/L Chloride (98-107) mmol/L Carbon Dioxide (22-30) mmol/L Anion Gap (10-20) BUN (7-17) mg/dl Creatinine (0.7-1.2) mg/dl Est GFR ( Amer) Est GFR (Non-Af Amer) POC Glucose (mg/dL) (65-110) mg/dL Random Glucose (65-105) mg/dL Calcium (8.4-10.2) mg/dL Phosphorus (2.5-4.5) mg/dl Magnesium (1.6-2.3) MG/DL Ammonia (11-51) umo/L Amylase 65 (30-110) U/L Lipase 47 (23-300) U/L Ur Random Sodium meq/L Ur Random Potassium mmol/L Urine Chloride (32-290) mmol/L Laboratory Results - last 24 hr 08/24/17 08/24/17 08/24/17 14:34 14:34 15:25 WBC RBC Hgb Hct MCV MCH MCHC RDW Plt Count Sodium Potassium Chloride Carbon Dioxide Anion Gap BUN Creatinine Est GFR ( Amer) Est GFR (Non-Af Amer) POC Glucose (mg/dL) Random Glucose Calcium Phosphorus Magnesium Ammonia 12 Amylase 65 Lipase 47 Ur Random Sodium 85 Ur Random Potassium 28.9 Urine Chloride 08/24/17 08/24/17 08/24/17 15:25 16:37 21:00 WBC RBC Hgb Hct MCV MCH MCHC RDW Plt Count Sodium Potassium Chloride Carbon Dioxide Anion Gap BUN Creatinine Est GFR ( Amer) Est GFR (Non-Af Amer) POC Glucose (mg/dL) 61 L Random Glucose Calcium Phosphorus Magnesium 1.7 Ammonia Amylase Lipase Ur Random Sodium Ur Random Potassium Urine Chloride 92 08/24/17 08/25/17 08/25/17 21:09 04:30 04:30 WBC 4.4 L RBC 3.26 L Hgb 9.5 L Hct 29.4 L MCV 90.1 MCH 29.2 MCHC 32.4 L RDW 17.1 H Plt Count 270 Sodium 137 Potassium 4.4 Chloride 100 Carbon Dioxide 32 H Anion Gap 9 L BUN 15 Creatinine 0.7 Est GFR ( Amer) > 60 Est GFR (Non-Af Amer) > 60 POC Glucose (mg/dL) 196 H Random Glucose 135 H Calcium 8.5 Phosphorus 4.1 Magnesium 1.4 L Ammonia Amylase Lipase Ur Random Sodium Ur Random Potassium Urine Chloride 08/25/17 06:15 WBC RBC Hgb Hct MCV MCH MCHC RDW Plt Count Sodium Potassium Chloride Carbon Dioxide Anion Gap BUN Creatinine Est GFR ( Amer) Est GFR (Non-Af Amer) POC Glucose (mg/dL) 127 H Random Glucose Calcium Phosphorus Magnesium Ammonia Amylase Lipase Ur Random Sodium Ur Random Potassium Urine Chloride EKG/Cardiology Studies: Cardiology / EKG Studies 08/25/17 EKG [ELECTROCARDIOGRAM] Routine Comment: Mode Of Transportation: Reason For Exam: prolong Qtc Fingerstick Blood Sugar Results: 127 Review of Systems - Constitutional Constitutional: Weakness. absent: Fever, Chills - EENT Eyes: absent: Change in Vision, Diplopia - Respiratory Respiratory: absent: Cough, Dyspnea, Chest Congestion - Gastrointestinal Gastrointestinal: Change in Stool Character. absent: Abdominal Pain, Bloating, Constipation, Nausea, Vomiting - Genitourinary Genitourinary: absent: Flank Pain - Musculoskeletal Musculoskeletal: Back Pain. absent: Myalgias - Neurological Neurological: Abnormal Gait, Confusion (at times), Dizziness (at times), Tremor Critical Care Progress Note - Extremities/Vascular Does the Patient have a Central Venous Catheter?: No Does the Patient need a Central Venous Catheter?: No Does the Patient have a Saeed Catheter?: Yes Does the Patient need a Saeed Catheter?: Yes Catheter Insertion Criteria: Need for accurate measurement of output in critically ill patient - Prophylaxis GI Prophylaxis GI: PPI - Prophylaxis DVT Prophylaxis DVT: Heparin SQ - Nutrition Nutrition: Nutrition Category Date Time Status Heart Healthy Diet [DIET] Diets 08/23/17 Dinner Active Assessment/Plan - Assessment and Plan (Free Text) Assessment: 71 YO female with multiple co-morbidities, IDDM type 2, HTN, Pulm HTN, COPD on home oxygen and CPAP, hx of PE s/p IVC filter in 2014) is admitted for unwitnessed syncope. Syncope VS Seizure episode -Cardiac vs neurologic -QTc prolonged on admission. Improving -Head CT w/o contrast: No acute ICH abnormality, small lucencies of skull concerning for metastatic disease or multiple myeloma-unchanged from 09/2016 -EKGs: Long QTc, T wave changes that appear nonspecific -Depakote on hold for now due to poss SE -MRI of brain, EEG; pending because of patient unable to stand still(tremors) -Echo done. F/U results -Cardio and Neuro on board Prolong QTc -Poss due to hypocalcemia -improving -Cardiology on consult -EP; Dr. Burnett consulted; pt may require defib later, correct electrolytes and follow up EKG Hypocalcemia with poss secondary Hyperparathyroidism -Resolved -Poss due to medication SE(steroids, Chemo) -PTH elevated -S/P Ca replacement Hypomagnesemia -Stable. Low Mg level today -s/p Mg replacement -Poss due to Ca replacement? IDDM type 2 -chronic, stable -HbA1c 8.6 (08/21) -Endo consulted Hypothyroidism -chronic, controlled -endocrine on board; cont Levothyroxine 25 mcg PO QD Multiple Myeloma -chronic -continue home medications: Dexamethasone 20mg once a week on mondays, Hydrocortisone 10mg PO QHS -Hem/Onc on case while inpatient Anemia -Poss secondary to multiple myeloma -cont to monitor DVT prophylaxis -Heparin SC as per Primary team <Kurtis Wood - Last Filed: 08/25/17 18:44> CCU Subjective - Physician Review Subjective (Free Text): Attestation: Patient seen and examined at the bedside with Resident Dr. Artemio Swift; and I agree with his outline of plans and management documented below as discussed on AM rounds reflecting my review of all applicable clinical data, and participation in the care of the patient throughout the day in ICU; today, August 25, 2017.
--- NOTE | 2017-08-25 13:09 | CP.PCM.PN ---
Subjective - Date & Time of Evaluation Date of Evaluation: 08/25/17 Time of Evaluation: 11:00 - Subjective Subjective: Feeling better Objective - Vital Signs/Intake and Output Vital Signs (last 24 hours): Temp Pulse Resp BP Pulse Ox 98.6 F 71 20 121/52 L 100 08/25/17 12:00 08/25/17 12:00 08/25/17 12:00 08/25/17 12:00 08/25/17 12:00 Intake and Output: 08/25/17 08/25/17 06:59 18:59 Intake Total 50 200 Output Total 1100 Balance -1050 200 - Medications Medications: Current Medications Acetylcysteine (Acetylcysteine 20%) 2 ml INH RBID [facility] Last Admin: 08/25/17 08:06 Dose: 2 ml Albuterol/Ipratropium (Duoneb 3 Mg/0.5 Mg (3 Ml) Ud) 3 ml INH RQ4 PRN PRN Reason: Shortness of Breath Last Admin: 08/21/17 17:00 Dose: 3 ml Albuterol/Ipratropium (Duoneb 3 Mg/0.5 Mg (3 Ml) Ud) 3 ml INH RQ6 [facility] Last Admin: 08/25/17 08:06 Dose: 3 ml Alprazolam (Xanax) 0.5 mg PO Q8 PRN PRN Reason: Anxiety Aripiprazole (Abilify) 5 mg PO HS [facility] Last Admin: 08/24/17 21:49 Dose: 5 mg Aspirin (Ecotrin) 81 mg PO DAILY [facility] Last Admin: 08/25/17 08:28 Dose: 81 mg Buspirone HCl (Buspar) 10 mg PO Q12@1000,2200 [facility] Last Admin: 08/25/17 10:52 Dose: 10 mg Calcitriol (Rocaltrol) 0.5 mcg PO BID [facility] Last Admin: 08/25/17 08:27 Dose: 0.5 mcg Calcium Carbonate (Oscal) 500 mg PO BIDWM [facility] Last Admin: 08/25/17 08:31 Dose: 500 mg Clonazepam (Klonopin) 0.5 mg PO DAILY PRN PRN Reason: Anxiety Last Admin: 08/23/17 21:18 Dose: 0.5 mg Dexamethasone (Decadron) 20 mg PO MON [facility] Last Admin: 06/18/18 09:33 Dose: Not Given Dextrose (Dextrose 50% Inj) 0 ml IV STAT PRN; Protocol PRN Reason: Hypoglycemia Protocol Last Admin: 08/22/17 17:17 Dose: 50 ml Dextrose (Glutose 15) 0 gm PO ONCE PRN; Protocol PRN Reason: Hypoglycemia Protocol Dimethicone (Proshield Plus Skin Protectant) 1 applic TOP Q8 [facility] Last Admin: 08/25/17 08:32 Dose: 1 applic Divalproex Sodium (Depakote Dr(*Bid*)) 250 mg PO BID [facility] Last Admin: 08/24/17 09:36 Dose: 250 mg Enalapril Maleate (Vasotec) 2.5 mg PO DAILY [facility] Furosemide (Lasix) 20 mg PO Q48H [facility] Last Admin: 08/23/17 22:54 Dose: 20 mg Glucagon (Glucagen Diagnostic Kit) 0 mg IM STAT PRN; Protocol PRN Reason: Hypoglycemia Protocol Heparin Sodium (Porcine) (Heparin) 5,000 units SC Q8 [facility] PRN Reason: Protocol Last Admin: 08/25/17 08:26 Dose: 5,000 units Home Med (Riociguat [Adempas]) 2 mg PO TID [facility] Last Admin: 08/25/17 08:27 Dose: 2 mg Hydrocortisone (Cortef) 10 mg PO HS [facility] Last Admin: 08/24/17 21:49 Dose: 10 mg Magnesium Sulfate (Magnesium Sulfate 2 Gm/50 Ml Water) 2 gm in 50 mls @ 50 mls/ hr IVPB ONCE ONE PRN Reason: 2 GM/HR Stop: 08/25/17 15:59 Insulin Detemir (Levemir) 12 units SC HS [facility] Last Admin: 08/24/17 21:52 Dose: 12 units Insulin Human Lispro (Humalog) 0 units SC ACHS [facility] Last Admin: 08/25/17 07:56 Dose: Not Given Insulin Human Lispro (Humalog) 4 units SC AC [facility] Last Admin: 08/25/17 08:12 Dose: 4 units Levothyroxine Sodium (Synthroid) 25 mcg PO DAILY@0630 [facility] Last Admin: 08/25/17 06:22 Dose: 25 mcg Metformin HCl (Glucophage) 500 mg PO BID [facility] Last Admin: 08/25/17 08:29 Dose: 500 mg Metoprolol Tartrate (Lopressor) 25 mg PO Q12 [facility] Last Admin: 08/25/17 08:29 Dose: 25 mg Pantoprazole Sodium (Protonix Ec Tab) 40 mg PO DAILY [facility] Last Admin: 08/25/17 08:28 Dose: 40 mg Promethazine HCl (Phenergan Syrup) 6.25 mg PO Q6 PRN PRN Reason: Cough Last Admin: 08/23/17 08:19 Dose: 6.25 mg - Labs Labs: 08/25/17 04:30 08/25/17 04:30 - Head Exam Head Exam: ATRAUMATIC - Eye Exam Eye Exam: Normal appearance - ENT Exam ENT Exam: Mucous Membranes Dry - Respiratory Exam Respiratory Exam: NORMAL BREATHING PATTERN - Cardiovascular Exam Cardiovascular Exam: +S1, +S2 - GI/Abdominal Exam GI & Abdominal Exam: Normal Bowel Sounds Assessment and Plan (1) Hypocalcemia syndrome Assessment & Plan: resolving may be related to Revlimid; will hold as outpatient Status: Acute (2) Anemia Assessment & Plan: chronic disease, multiple myeloma, myeloma treatment Status: Resolved (3) Multiple myeloma Assessment & Plan: lytic lesions complicated by acetabular fracture outpatient treatment Status: Chronic
--- NOTE | 2017-08-25 13:37 | CARD ---
APPROVED REPORT EXAM: Two-dimensional and M-mode echocardiogram with Doppler and color Doppler. Other Information Quality : GoodRhythm : INDICATION LV Function: 2D DIMENSIONS IVSd1.17 (0.7-1.1cm)LVDd4.39 (3.9-5.9cm) LVOT Diameter2.32 (1.8-2.4cm)PWd1.12 (0.7-1.1cm) IVSs1.51 (0.8-1.2cm)LVDs2.65 (2.5-4.0cm) FS (%) 39.7 %PWs1.39 (0.8-1.2cm) M-Mode DIMENSIONS Left Atrium (MM)3.88 (2.5-4.0cm)IVSd1.09 (0.7-1.1cm) Aortic Root3.41 (2.2-3.7cm)LVDd4.88 (4.0-5.6cm) Aortic Cusp Exc.1.82 (1.5-2.0cm)PWd1.09 (0.7-1.1cm) IVSs1.53 cmFS (%) 37 % LVDs3.06 (2.0-3.8cm)PWs1.71 cm Mitral Valve MV E Dwpwbqur563.7cm/sMV DECEL [id number] A Syetqlgh054.6cm/s MV YTV50twC/A ratio0.9MVA (PHT)2.65cm2 TDI Lateral E' Peak V7.58cm/sMedial E' Peak V6.60cm/sE/Lateral E'13.5 E/Medial E'15.6 Pulmonary Valve PV Peak Jveqvenk501.6cm/s LEFT VENTRICLE The left ventricle is normal size. There is normal left ventricular wall thickness. Left ventricle systolic function is normal. The Ejection Fraction is 60-65%. There is normal LV segmental wall motion. Transmitral Doppler flow pattern is Grade I-abnormal relaxation pattern. RIGHT VENTRICLE The right ventricle is normal size. There is normal right ventricular wall thickness. The right ventricular systolic function is normal. ATRIA The left atrium size is normal. The right atrium size is normal. AORTIC VALVE The aortic valve is mildly sclerotic. No aortic regurgitation is present. There is no aortic valvular stenosis. MITRAL VALVE The mitral valve is normal in structure. There is no evidence of mitral valve prolapse. There is no mitral valve stenosis. There is no mitral valve regurgitation noted. TRICUSPID VALVE The tricuspid valve is normal in structure. There is no tricuspid valve regurgitation noted. PULMONIC VALVE The pulmonary valve is normal in structure. There is no pulmonic valvular regurgitation. GREAT VESSELS The aortic root is normal in size. The IVC is normal in size and collapses >50% with inspiration. PERICARDIAL EFFUSION The pericardium appears normal. <Conclusion> The left ventricle is normal size. There is normal left ventricular wall thickness. There is normal LV segmental wall motion. Left ventricle systolic function is normal. The Ejection Fraction is 60-65%. Transmitral Doppler flow pattern is Grade I-abnormal relaxation pattern.
--- NOTE | 2017-08-25 14:47 | PQF ---
CDI RESPONSE TEXT: Heart healthy diet with supplement CDI QUERY TEXT: Nutritional Deficiency Clarification Query created by: Tamar Garcia on 08/25/2017 10:28 AM Electronically signed by: Sapphire Salcedo 08/25/2017 2:45 PM
--- NOTE | 2017-08-25 16:17 | CP.PCM.PN ---
Subjective - Date & Time of Evaluation Date of Evaluation: 08/25/17 Time of Evaluation: 18:30 - Subjective Subjective: PT WO NEW COMPLAINTS. MAG 1.4 QT 490. NO VT. Objective - Vital Signs/Intake and Output Vital Signs (last 24 hours): Temp Pulse Resp BP Pulse Ox 98.6 F 68 17 112/95 H 100 08/25/17 12:00 08/25/17 14:00 08/25/17 14:00 08/25/17 14:00 08/25/17 14:00 Intake and Output: 08/25/17 08/25/17 06:59 18:59 Intake Total 50 200 Output Total 1100 Balance -1050 200 - Medications Medications: Current Medications Acetylcysteine (Acetylcysteine 20%) 2 ml INH RBID [facility] Last Admin: 08/25/17 08:06 Dose: 2 ml Albuterol/Ipratropium (Duoneb 3 Mg/0.5 Mg (3 Ml) Ud) 3 ml INH RQ4 PRN PRN Reason: Shortness of Breath Last Admin: 08/21/17 17:00 Dose: 3 ml Albuterol/Ipratropium (Duoneb 3 Mg/0.5 Mg (3 Ml) Ud) 3 ml INH RQ6 [facility] Last Admin: 08/25/17 13:49 Dose: 3 ml Alprazolam (Xanax) 0.5 mg PO Q8 PRN PRN Reason: Anxiety Aripiprazole (Abilify) 5 mg PO HS [facility] Last Admin: 08/24/17 21:49 Dose: 5 mg Aspirin (Ecotrin) 81 mg PO DAILY [facility] Last Admin: 08/25/17 08:28 Dose: 81 mg Buspirone HCl (Buspar) 10 mg PO Q12@1000,2200 [facility] Last Admin: 08/25/17 10:52 Dose: 10 mg Calcitriol (Rocaltrol) 0.5 mcg PO BID [facility] Last Admin: 08/25/17 08:27 Dose: 0.5 mcg Calcium Carbonate (Oscal) 500 mg PO BIDWM [facility] Last Admin: 08/25/17 08:31 Dose: 500 mg Clonazepam (Klonopin) 0.5 mg PO DAILY PRN PRN Reason: Anxiety Last Admin: 08/23/17 21:18 Dose: 0.5 mg Dexamethasone (Decadron) 20 mg PO MON [facility] Last Admin: 08/23/17 09:33 Dose: Not Given Dextrose (Dextrose 50% Inj) 0 ml IV STAT PRN; Protocol PRN Reason: Hypoglycemia Protocol Last Admin: 08/22/17 17:17 Dose: 50 ml Dextrose (Glutose 15) 0 gm PO ONCE PRN; Protocol PRN Reason: Hypoglycemia Protocol Dimethicone (Proshield Plus Skin Protectant) 1 applic TOP Q8 [facility] Last Admin: 08/25/17 08:32 Dose: 1 applic Divalproex Sodium (Depakote Dr(*Bid*)) 250 mg PO BID [facility] Last Admin: 08/24/17 09:36 Dose: 250 mg Enalapril Maleate (Vasotec) 2.5 mg PO DAILY [facility] Furosemide (Lasix) 20 mg PO Q48H [facility] Last Admin: 08/23/17 22:54 Dose: 20 mg Glucagon (Glucagen Diagnostic Kit) 0 mg IM STAT PRN; Protocol PRN Reason: Hypoglycemia Protocol Heparin Sodium (Porcine) (Heparin) 5,000 units SC Q8 [facility] PRN Reason: Protocol Last Admin: 08/25/17 08:26 Dose: 5,000 units Home Med (Riociguat [Adempas]) 2 mg PO TID [facility] Last Admin: 08/25/17 13:47 Dose: 2 mg Hydrocortisone (Cortef) 10 mg PO HS [facility] Last Admin: 08/24/17 21:49 Dose: 10 mg Insulin Detemir (Levemir) 12 units SC HS [facility] Last Admin: 08/24/17 21:52 Dose: 12 units Insulin Human Lispro (Humalog) 0 units SC ACHS [facility] Last Admin: 08/25/17 11:30 Dose: Not Given Insulin Human Lispro (Humalog) 4 units SC AC [facility] Last Admin: 08/25/17 12:00 Dose: 4 units Levothyroxine Sodium (Synthroid) 25 mcg PO DAILY@0630 [facility] Last Admin: 08/25/17 06:22 Dose: 25 mcg Metformin HCl (Glucophage) 500 mg PO BID [facility] Last Admin: 08/25/17 08:29 Dose: 500 mg Metoprolol Tartrate (Lopressor) 25 mg PO Q12 [facility] Last Admin: 08/25/17 08:29 Dose: 25 mg Pantoprazole Sodium (Protonix Ec Tab) 40 mg PO DAILY [facility] Last Admin: 08/25/17 08:28 Dose: 40 mg Promethazine HCl (Phenergan Syrup) 6.25 mg PO Q6 PRN PRN Reason: Cough Last Admin: 08/23/17 08:19 Dose: 6.25 mg - Labs Labs: 08/25/17 04:30 08/25/17 04:30 Assessment and Plan (1) Hx of ventricular tachycardia Status: Acute (2) Hypomagnesemia Status: Acute (3) T wave inversion in EKG Status: Acute (4) Hypocalcemia syndrome Status: Acute (5) Abnormal QT interval present on electrocardiogram Status: Acute (6) Cor pulmonale (chronic) Status: Acute (7) Syncope and collapse Status: Acute (8) Abnormal involuntary movements Status: Acute (9) Multiple myeloma Status: Chronic (10) Pulmonary hypertension Status: Chronic - Assessment and Plan (Free Text) Plan: REPLEAT MAG. CHECK RBC MAG MONITOR FOR TORSADES DEFIB PER EPS
--- NOTE | 2017-08-25 20:40 | PN ---
DATE: 08/25/2017 LOCATION: Room 431, ICU. SUBJECTIVE: This is a 71-year-old female with multiple myeloma and has ongoing chemo regimen with also recent diagnosis of secondary adrenal insufficiency, on long-term steroid therapy as given and is now being followed closely for metabolic management. She presented here with symptomatic hypocalcemia and has since then received calcium gluconate infusions as noted. Her glycemic levels are fluctuating but improved and the latest glucose values have ranged from 127-196 mg/dL. Her chemistries today showed a BUN of 15, sodium 137, potassium 4.4, chloride 100, CO2 of 32, glucose 135, and creatinine 0.7. Her calcium level now is 8.5 with a prior albumin level of 3 and corrected calcium of 9.3 mg/dL. At this time, we will continue the calcium and vitamin D supplementation as given with calcitriol at 0.5 mcg b.i.d. and calcium carbonate given as 500 mg b.i.d. as given. We will also continue the same low-dose basal and bolus insulin regimen with Humalog given as 4 units t.i.d. before meals and Levemir at 12 units subcu at bedtime daily as given. We will actually continue the current steroid replacement therapy given as Decadron at 20 mg once a week and hydrocortisone at 10 mg at bedtime as her latest cortisol levels were optimal as noted. She will follow with Dr. Vilchis for ongoing oncologic and metabolic followup. Irene Mann MD
[2017-08-25] MEDS: Insulin Detemir 100 Units/ml Inj SC SCH (21:17)
[2017-08-26] MEDS: Proshield Plus GEL TOP SCH ×3 (00:25→16:40)
[2017-08-26] MEDS: Albuterol-Ipratrop 3 mg / 0.5 (3 ml) UD INH SCH ×4 (01:00→19:26)
[2017-08-26 05:46] LABS: HEMOGLOBIN 9.3 g/dL (12.0-16.0); MEAN CELL VOLUME 90.4 fl (81.0-99.0); MEAN CORPUSCULAR HEMOGLOBIN 29.2 pg (27.0-31.0); MEAN CORPUSCULAR HGB CONC 32.3 g/dL (33.0-37.0); RBC 3.2 Mil/uL (3.80-5.20); RED CELL DISTRIBUTION WIDTH 17.3 % (11.5-14.5); WHITE BLOOD COUNT 4.1 K/uL (4.8-10.8)
[2017-08-26 06:04] LABS: ALBUMIN 2.9 g/dL (3.5-5.0); ALT/SGPT 21 U/L (9-52); AST/SGOT 17 U/L (14-36); BLOOD UREA NITROGEN 16 mg/dl (7-17); CALCIUM 8.3 mg/dL (8.4-10.2); GFR AFRICAN-AMERICAN > 60; GFR NON-AFRICAN AMERICAN > 60
[2017-08-26] MEDS: Levothyroxine 25 MCG TAB PO SCH (06:36)
[2017-08-26] MEDS: Insulin Lispro (humaLOG) 100 Units/ml Inj SC SCH ×7 (06:36→21:16)
[2017-08-26] MEDS: Acetylcysteine 20% Inhal Soln (4ml) INH SCH ×2 (08:00→19:26)
[2017-08-26] MEDS ORDERED: Magnesium Sulfate 2 GM in Dextrose 5% In Water 100 ML IVPB ONE (08:02)
--- NOTE | 2017-08-26 08:17 | CARD ---
APPROVED REPORT EKG Measurement Heart [id number] <Conclusion> Normal sinus rhythm ST & T wave abnormality, consider anterior ischemia Abnormal ECG
[2017-08-26] MEDS ORDERED: Magnesium Sulfate 2 gm/50 ml 2 GM/50 ML BAG IV ONE (08:30)
--- NOTE | 2017-08-26 08:31 | CP.PCM.PN ---
Subjective - Date & Time of Evaluation Date of Evaluation: 08/26/17 Time of Evaluation: 08:30 - Subjective Subjective: No acute overnight events. Pt states that she is feeling better, breathing has improved. Denies chest pain, dyspnea, n/v, chills and remains afebrile. Objective - Vital Signs/Intake and Output Vital Signs (last 24 hours): Temp Pulse Resp BP Pulse Ox 98.3 F 73 14 122/50 L 100 08/26/17 04:00 08/26/17 07:52 08/26/17 07:52 08/26/17 07:52 08/26/17 07:52 Intake and Output: 08/26/17 08/26/17 06:59 18:59 Intake Total 200 Output Total 1000 Balance -800 - Medications Medications: Current Medications Acetylcysteine (Acetylcysteine 20%) 2 ml INH RBID [facility] Last Admin: 08/26/17 08:00 Dose: 2 ml Albuterol/Ipratropium (Duoneb 3 Mg/0.5 Mg (3 Ml) Ud) 3 ml INH RQ4 PRN PRN Reason: Shortness of Breath Last Admin: 08/21/17 17:00 Dose: 3 ml Albuterol/Ipratropium (Duoneb 3 Mg/0.5 Mg (3 Ml) Ud) 3 ml INH RQ6 [facility] Last Admin: 08/26/17 08:00 Dose: 3 ml Alprazolam (Xanax) 0.5 mg PO Q8 PRN PRN Reason: Anxiety Aripiprazole (Abilify) 5 mg PO HS [facility] Last Admin: 08/25/17 21:00 Dose: 5 mg Aspirin (Ecotrin) 81 mg PO DAILY [facility] Last Admin: 08/25/17 08:28 Dose: 81 mg Buspirone HCl (Buspar) 10 mg PO Q12@1000,2200 [facility] Last Admin: 08/25/17 21:00 Dose: 10 mg Calcitriol (Rocaltrol) 0.5 mcg PO DAILY [facility] Calcium Carbonate (Oscal) 500 mg PO BIDWM [facility] Last Admin: 08/25/17 08:31 Dose: 500 mg Clonazepam (Klonopin) 0.5 mg PO DAILY PRN PRN Reason: Anxiety Last Admin: 08/23/17 21:18 Dose: 0.5 mg Dexamethasone (Decadron) 20 mg PO MON [facility] Last Admin: 08/23/17 09:33 Dose: Not Given Dextrose (Dextrose 50% Inj) 0 ml IV STAT PRN; Protocol PRN Reason: Hypoglycemia Protocol Last Admin: 08/22/17 17:17 Dose: 50 ml Dextrose (Glutose 15) 0 gm PO ONCE PRN; Protocol PRN Reason: Hypoglycemia Protocol Dimethicone (Proshield Plus Skin Protectant) 1 applic TOP Q8 [facility] Last Admin: 08/26/17 00:25 Dose: 1 applic Divalproex Sodium (Depakote Dr(*Bid*)) 250 mg PO BID [facility] Last Admin: 08/24/17 09:36 Dose: 250 mg Enalapril Maleate (Vasotec) 2.5 mg PO DAILY [facility] Furosemide (Lasix) 20 mg PO Q48H [facility] Last Admin: 08/25/17 22:48 Dose: 20 mg Glucagon (Glucagen Diagnostic Kit) 0 mg IM STAT PRN; Protocol PRN Reason: Hypoglycemia Protocol Heparin Sodium (Porcine) (Heparin) 5,000 units SC Q8 [facility] PRN Reason: Protocol Last Admin: 08/26/17 00:21 Dose: 5,000 units Home Med (Riociguat [Adempas]) 2 mg PO TID [facility] Last Admin: 08/25/17 16:47 Dose: 2 mg Hydrocortisone (Cortef) 10 mg PO HS [facility] Last Admin: 08/25/17 21:01 Dose: 10 mg Magnesium Sulfate (Magnesium Sulfate 2 Gm/50 Ml Water) 2 gm in 50 mls @ 50 mls/ hr IV ONCE ONE PRN Reason: 2 GM/HR Stop: 08/26/17 09:29 Insulin Detemir (Levemir) 12 units SC HS [facility] Last Admin: 08/25/17 21:17 Dose: 12 units Insulin Human Lispro (Humalog) 0 units SC ACHS [facility] Last Admin: 08/26/17 06:37 Dose: Not Given Insulin Human Lispro (Humalog) 4 units SC AC [facility] Last Admin: 08/26/17 06:36 Dose: 4 units Levothyroxine Sodium (Synthroid) 25 mcg PO DAILY@0630 [facility] Last Admin: 08/26/17 06:36 Dose: 25 mcg Metformin HCl (Glucophage) 500 mg PO BID [facility] Last Admin: 08/25/17 16:44 Dose: 500 mg Metoprolol Tartrate (Lopressor) 25 mg PO Q12 [facility] Last Admin: 08/25/17 20:55 Dose: 25 mg Pantoprazole Sodium (Protonix Ec Tab) 40 mg PO DAILY [facility] Last Admin: 08/25/17 08:28 Dose: 40 mg Promethazine HCl (Phenergan Syrup) 6.25 mg PO Q6 PRN PRN Reason: Cough Last Admin: 08/23/17 08:19 Dose: 6.25 mg - Labs Labs: 08/26/17 04:50 08/26/17 04:50 - Constitutional Appears: No Acute Distress, Other (O2 via NC 2 L, sitting down ) - Head Exam Head Exam: NORMAL INSPECTION - Eye Exam Eye Exam: EOMI - ENT Exam ENT Exam: Mucous Membranes Moist - Respiratory Exam Respiratory Exam: Wheezes (mild expiratory wheezing ), NORMAL BREATHING PATTERN. absent: Rales, Rhonchi - Cardiovascular Exam Cardiovascular Exam: REGULAR RHYTHM, +S1, +S2 - GI/Abdominal Exam GI & Abdominal Exam: Soft, Normal Bowel Sounds. absent: Tenderness Assessment and Plan - Assessment and Plan (Free Text) Assessment: Assessment/Plan: 71 YO female with multiple co-morbidities (PMHx including Multiple Myeloma, hx of multiple fractures (recent left hip fracture), IDDM type 2, HTN, Pulm HTN, COPD on home oxygen and CPAP, hx of PE s/p IVC filter in 2014) is admitted for unwitnessed syncope. Admission complicated by severe hypocalcemia and QTc prolongation. ST changes on EKG -likely 2/2 to electrolyte imbalance -asymptomatic -Echo normal 08/25 -Cardiology on consult -EP; Dr. Burnett consulted; does not require a d. fibulator at this time. Unwitnessed syncopal episode -stable, none since admission -likely acute on chronic; r/o seizures and CVA -Neurology on consult; EEG, MRI, c/w [place] on hold due to tremors -CT head 08/23: no acute changes noted Hypocalcemia, Prolong QTc -Ca resolved, corrected is 8.8 -Qtc improving since admission -likely 2/2 to multiple myleoma tx medication -Endocrinology on consult; cont levo CaCO3 500mg BID, Calcitriol 0.5mg BID, TSH -Cardiology on consult; daily EKGs, Mg replaced to avoid Torsades COPD -chronic, stable -continue home medications: Duoneb INH solution Q4 PRN SOB -continue home regimen: 2L supplemental O2 via nasal cannula during the day, CPAP at night -Pulmonary consulted; cont current meds Pulmonary HTN -chronic, stable -c/w home medications: Furosemide 20 mg PO Q48H -c/w Riociguat 2mg PO TID -Pulmonary consulted;follow up recs HTN -chronic, controlled -held home medication due to hypotension on admission: Enalapril 2.5mg PO QD -c/w with Aspirin 81 mg PO QD -monitor BP IDDM type 2 -chronic, controlled -HbA1c 8.6 (08/21) -continue home medications: Insulin Levemir 14 units SC QAM, Insulin Levemir 10 units SC QPM, Insulin Lispro 5 units SC TID with meals, Metformin 500mg PO BID, Atorvastatin 20mg PO QHS -hypoglycemia protocol in place Hypothyroidism -chronic, controlled -endocrine on board; cont Levothyroxine 25 mcg PO QD Restless leg syndrome -chronic -continue home medications: Clonazepam 0.5 mg PO QD Depression -chronic, controlled -continue home medications: Buspirone 10mg PO Q12 -c/w Aripiprazole 5mg PO QHS -will decrease abilify weekly per Neuro recs to decrease seizure threshold Multiple Myeloma -chronic -continue home medications: Dexamethasone 20mg once a week on mondays, Hydrocortisone 10mg PO QHS -patient follow regularly with heme/onc Dr. Vilchis -Hem/Onc on case while inpatient Anemia -acute on chronic, likely secondary to multiple myeloma -stable DVT prophylaxis -Heparin SC
[2017-08-26] MEDS ORDERED: Magnesium Sulfate 2 gm/50 ml 2 GM/50 ML BAG IVPB ONE (08:49)
[2017-08-26] MEDS: Pantoprazole 40 mg EC Tab PO SCH (08:51)
[2017-08-26] MEDS: Magnesium Oxide 400 mg Tab UD PO SCH (10:13)
--- NOTE | 2017-08-26 15:51 | CP.PCM.PN ---
Subjective - Date & Time of Evaluation Date of Evaluation: 08/26/17 Time of Evaluation: 12:00 - Subjective Subjective: Feeling better, sitting in chair. Objective - Vital Signs/Intake and Output Vital Signs (last 24 hours): Temp Pulse Resp BP Pulse Ox 99.1 F 77 20 111/53 L 100 08/26/17 12:19 08/26/17 14:00 08/26/17 14:00 08/26/17 14:00 08/26/17 14:00 Intake and Output: 08/26/17 08/26/17 06:59 18:59 Intake Total 200 100 Output Total 1000 950 Balance -800 -850 - Medications Medications: Current Medications Acetylcysteine (Acetylcysteine 20%) 2 ml INH RBID [facility] Last Admin: 08/26/17 08:00 Dose: 2 ml Albuterol/Ipratropium (Duoneb 3 Mg/0.5 Mg (3 Ml) Ud) 3 ml INH RQ4 PRN PRN Reason: Shortness of Breath Last Admin: 08/21/17 17:00 Dose: 3 ml Albuterol/Ipratropium (Duoneb 3 Mg/0.5 Mg (3 Ml) Ud) 3 ml INH RQ6 [facility] Last Admin: 08/26/17 13:55 Dose: 3 ml Alprazolam (Xanax) 0.5 mg PO Q8 PRN PRN Reason: Anxiety Aripiprazole (Abilify) 5 mg PO HS [facility] Last Admin: 08/25/17 21:00 Dose: 5 mg Aspirin (Ecotrin) 81 mg PO DAILY [facility] Last Admin: 08/26/17 08:51 Dose: 81 mg Buspirone HCl (Buspar) 10 mg PO Q12@1000,2200 [facility] Last Admin: 08/26/17 09:00 Dose: 10 mg Calcitriol (Rocaltrol) 0.5 mcg PO DAILY [facility] Calcium Carbonate (Oscal) 500 mg PO BIDWM [facility] Last Admin: 08/25/17 08:31 Dose: 500 mg Clonazepam (Klonopin) 0.5 mg PO DAILY PRN PRN Reason: Anxiety Last Admin: 08/23/17 21:18 Dose: 0.5 mg Dexamethasone (Decadron) 20 mg PO MON [facility] Last Admin: 08/23/17 09:33 Dose: Not Given Dextrose (Dextrose 50% Inj) 0 ml IV STAT PRN; Protocol PRN Reason: Hypoglycemia Protocol Last Admin: 08/22/17 17:17 Dose: 50 ml Dextrose (Glutose 15) 0 gm PO ONCE PRN; Protocol PRN Reason: Hypoglycemia Protocol Dimethicone (Proshield Plus Skin Protectant) 1 applic TOP Q8 [facility] Last Admin: 08/26/17 08:53 Dose: 1 applic Divalproex Sodium (Depakote Dr(*Bid*)) 250 mg PO BID [facility] Last Admin: 08/24/17 09:36 Dose: 250 mg Enalapril Maleate (Vasotec) 2.5 mg PO DAILY [facility] Furosemide (Lasix) 20 mg PO Q48H [facility] Last Admin: 08/25/17 22:48 Dose: 20 mg Glucagon (Glucagen Diagnostic Kit) 0 mg IM STAT PRN; Protocol PRN Reason: Hypoglycemia Protocol Heparin Sodium (Porcine) (Heparin) 5,000 units SC Q8 [facility] PRN Reason: Protocol Last Admin: 08/26/17 08:51 Dose: 5,000 units Home Med (Riociguat [Adempas]) 2 mg PO TID [facility] Last Admin: 08/26/17 12:02 Dose: 2 mg Hydrocortisone (Cortef) 10 mg PO HS [facility] Last Admin: 08/25/17 21:01 Dose: 10 mg Insulin Detemir (Levemir) 12 units SC HS [facility] Last Admin: 08/25/17 21:17 Dose: 12 units Insulin Human Lispro (Humalog) 0 units SC ACHS [facility] Last Admin: 08/26/17 11:59 Dose: Not Given Insulin Human Lispro (Humalog) 4 units SC AC [facility] Last Admin: 08/26/17 12:02 Dose: 4 units Levothyroxine Sodium (Synthroid) 25 mcg PO DAILY@0630 [facility] Last Admin: 08/26/17 06:36 Dose: 25 mcg Magnesium Oxide (Mag-Ox) 400 mg PO DAILY [facility] Last Admin: 08/26/17 10:13 Dose: 400 mg Metformin HCl (Glucophage) 500 mg PO BID [facility] Last Admin: 08/26/17 08:51 Dose: 500 mg Metoprolol Tartrate (Lopressor) 25 mg PO Q12 [facility] Last Admin: 08/26/17 08:50 Dose: 25 mg Pantoprazole Sodium (Protonix Ec Tab) 40 mg PO DAILY [facility] Last Admin: 08/26/17 08:51 Dose: 40 mg Promethazine HCl (Phenergan Syrup) 6.25 mg PO Q6 PRN PRN Reason: Cough Last Admin: 08/23/17 08:19 Dose: 6.25 mg - Labs Labs: 08/26/17 04:50 08/26/17 04:50 - Head Exam Head Exam: ATRAUMATIC - Eye Exam Eye Exam: Normal appearance - ENT Exam ENT Exam: Mucous Membranes Dry - Respiratory Exam Respiratory Exam: NORMAL BREATHING PATTERN - Cardiovascular Exam Cardiovascular Exam: +S1, +S2 - GI/Abdominal Exam GI & Abdominal Exam: Normal Bowel Sounds Assessment and Plan (1) Hypocalcemia syndrome Assessment & Plan: resolving may be related to Revlimid; will hold as outpatient Status: Acute (2) Anemia Assessment & Plan: chronic disease, multiple myeloma, myeloma treatment Status: Resolved (3) Multiple myeloma Assessment & Plan: lytic lesions complicated by acetabular fracture outpatient treatment Status: Chronic
--- NOTE | 2017-08-26 19:34 | PN ---
DATE: 08/26/2017 ENDO FOLLOWUP NOTE LOCATION: In room 431. SUBJECTIVE: This is a 71-year-old female with known history of multiple myeloma and secondary hypoadrenalism, currently stable on a combination of oral steroid replacement therapy as noted. She also has recently developed symptomatic hypocalcemia and has since then improved clinically and metabolically as noted. Her latest calcium level is 8.3 with albumin level of 2.9 and a corrected calcium of 9.4 mg/dL. Moreover, her glycemic profile has improved accordingly with the latest glucose levels ranging from 161 to 182 mg/dL. Her latest chemistry showed a BUN of 16, sodium 136, potassium 4.4, chloride 97, CO2 of 34, glucose 148, and creatinine 0.9. ASSESSMENT AND PLAN: So at this time, we will continue the same basal and bolus insulin regimen as ordered with the low dose of Humalog given as 4 units subcutaneously t.i.d. before meals and Levemir given as 12 units subcutaneously at bedtime daily as given. We will titrate incrementally as indicated to optimize metabolic control. We will for also continue the current Decadron given as 20 mg once a week and hydrocortisone given as 10 mg at bedtime as ordered. We will continue also her low dose levothyroxine given as 25 mcg once daily as ordered. We will obtain serial chemistries and supplement accordingly needed. We will follow with you. Irene Mann MD
[2017-08-26] MEDS: Insulin Detemir 100 Units/ml Inj SC SCH (21:15)
[2017-08-27] MEDS: Proshield Plus GEL TOP SCH ×3 (00:49→16:37)
[2017-08-27] MEDS: Albuterol-Ipratrop 3 mg / 0.5 (3 ml) UD INH SCH ×4 (01:22→19:41)
[2017-08-27 05:39] LABS: BASO % 0.7 % (0.0-2.0); EOS # 0.1 K/uL (0.0-0.7); EOS % 1.7 % (0.0-4.0); HEMOGLOBIN 9.4 g/dL (12.0-16.0); LYMPH # 0.6 K/uL (1.0-4.3); LYMPH % 13.3 % (20.0-40.0); MEAN CELL VOLUME 89.6 fl (81.0-99.0); MEAN CORPUSCULAR HEMOGLOBIN 29.3 pg (27.0-31.0); MEAN CORPUSCULAR HGB CONC 32.7 g/dL (33.0-37.0); MEAN PLATELET VOLUME 8.5 fl (7.2-11.7); MONO # 0.8 K/uL (0.0-0.8); MONO % 16.4 % (0.0-10.0); NEUT # 3.2 K/uL (1.8-7.0); NEUT % 67.9 % (50.0-75.0); NRBC % 0.1 % (0.0-0.0); RBC 3.21 Mil/uL (3.80-5.20); RED CELL DISTRIBUTION WIDTH 16.7 % (11.5-14.5); WHITE BLOOD COUNT 4.8 K/uL (4.8-10.8)
[2017-08-27] MEDS: Levothyroxine 25 MCG TAB PO SCH (05:47)
[2017-08-27 05:59] LABS: BLOOD UREA NITROGEN 22 mg/dl (7-17); CALCIUM 8.7 mg/dL (8.4-10.2); GFR AFRICAN-AMERICAN > 60; GFR NON-AFRICAN AMERICAN 55
[2017-08-27] MEDS ORDERED: Magnesium Sulfate 2 gm/50 ml 2 GM/50 ML BAG IVPB ONE ×2 (06:33→14:57)
[2017-08-27] MEDS: Acetylcysteine 20% Inhal Soln (4ml) INH SCH ×2 (07:32→19:42)
[2017-08-27] MEDS: Insulin Lispro (humaLOG) 100 Units/ml Inj SC SCH ×7 (08:08→22:32)
[2017-08-27] MEDS: Magnesium Oxide 400 mg Tab UD PO SCH (08:09)
[2017-08-27] MEDS: Pantoprazole 40 mg EC Tab PO SCH (08:10)
--- NOTE | 2017-08-27 09:52 | MRI ---
PROCEDURE: MRI BRAIN WITHOUT CONTRAST HISTORY: COMPARISON: Noncontrast head CT 08/23/2017. TECHNIQUE: Multiplanar, multisequence MR images of the brain were obtained without intravenous contrast enhancement. FINDINGS: Motion artifacts degrade the quality examination significantly. HEMORRHAGE: None DWI: No evidence of an acute or early subacute infarction. BRAIN PARENCHYMA: The wilson-white matter differentiation is well preserved. There is no mass effect or definitive edema pattern appreciated including the cortex. There is proportional expansion of the ventriculosulcal and cisternal spaces however in a pattern most compatible with diffuse cerebral atrophy. No suspicious extra-axial fluid collection is identified in the midline brain anatomy appears grossly nonfocal as imaged. VENTRICLES: Unremarkable. No hydrocephalus. CRANIUM: Unremarkable. ORBITS: Grossly unremarkable. PARANASAL SINUSES/MASTOIDS: Clear VASCULAR SYSTEM: Skull base flow voids intact. OTHER FINDINGS: None. IMPRESSION: Limited exam due to motion artifacts however there is no evidence of an acute or subacute brain infarction nor is there mass effect. No suspicious extra-axial fluid collections. Diffuse cerebral atrophy appears mild and appropriate for age.
--- NOTE | 2017-08-27 13:42 | CP.PCM.PN ---
Subjective - Date & Time of Evaluation Date of Evaluation: 08/27/17 Time of Evaluation: 13:42 - Subjective Subjective: No acute overnight events. Pt is awake, alert and oriented today. States that she feels great, denies dyspnea, chest pain, abdominal pain, n/v/d/c. States that her diarrhea resolved today. Objective - Vital Signs/Intake and Output Vital Signs (last 24 hours): Temp Pulse Resp BP Pulse Ox 98 F 68 19 97/50 L 98 08/27/17 12:00 08/27/17 12:00 08/27/17 12:00 08/27/17 12:00 08/27/17 12:00 - Medications Medications: Current Medications Acetylcysteine (Acetylcysteine 20%) 2 ml INH RBID [facility] Last Admin: 08/27/17 07:32 Dose: 2 ml Albuterol/Ipratropium (Duoneb 3 Mg/0.5 Mg (3 Ml) Ud) 3 ml INH RQ4 PRN PRN Reason: Shortness of Breath Last Admin: 08/21/17 17:00 Dose: 3 ml Albuterol/Ipratropium (Duoneb 3 Mg/0.5 Mg (3 Ml) Ud) 3 ml INH RQ6 [facility] Last Admin: 08/27/17 13:14 Dose: 3 ml Alprazolam (Xanax) 0.5 mg PO Q8 PRN PRN Reason: Anxiety Aripiprazole (Abilify) 5 mg PO HS [facility] Last Admin: 08/26/17 21:13 Dose: 5 mg Aspirin (Ecotrin) 81 mg PO DAILY [facility] Last Admin: 08/27/17 08:08 Dose: 81 mg Buspirone HCl (Buspar) 10 mg PO Q12@1000,2200 [facility] Last Admin: 08/27/17 09:18 Dose: 10 mg Calcitriol (Rocaltrol) 0.5 mcg PO DAILY [facility] Calcium Carbonate (Oscal) 500 mg PO BIDWM [facility] Last Admin: 08/25/17 08:31 Dose: 500 mg Clonazepam (Klonopin) 0.5 mg PO DAILY PRN PRN Reason: Anxiety Last Admin: 08/23/17 21:18 Dose: 0.5 mg Dexamethasone (Decadron) 20 mg PO MON [facility] Last Admin: 08/23/17 09:33 Dose: Not Given Dextrose (Dextrose 50% Inj) 0 ml IV STAT PRN; Protocol PRN Reason: Hypoglycemia Protocol Last Admin: 08/22/17 17:17 Dose: 50 ml Dextrose (Glutose 15) 0 gm PO ONCE PRN; Protocol PRN Reason: Hypoglycemia Protocol Dimethicone (Proshield Plus Skin Protectant) 1 applic TOP Q8 [facility] Last Admin: 08/27/17 08:10 Dose: 1 applic Divalproex Sodium (Depakote Dr(*Bid*)) 250 mg PO BID [facility] Last Admin: 08/24/17 09:36 Dose: 250 mg Enalapril Maleate (Vasotec) 2.5 mg PO DAILY [facility] Furosemide (Lasix) 20 mg PO Q48H [facility] Last Admin: 08/25/17 22:48 Dose: 20 mg Glucagon (Glucagen Diagnostic Kit) 0 mg IM STAT PRN; Protocol PRN Reason: Hypoglycemia Protocol Heparin Sodium (Porcine) (Heparin) 5,000 units SC Q8 [facility] PRN Reason: Protocol Last Admin: 08/27/17 08:08 Dose: 5,000 units Home Med (Riociguat [Adempas]) 2 mg PO TID [facility] Last Admin: 08/27/17 12:04 Dose: 2 mg Hydrocortisone (Cortef) 10 mg PO HS [facility] Last Admin: 08/26/17 21:14 Dose: 10 mg Insulin Detemir (Levemir) 12 units SC HS [facility] Last Admin: 08/26/17 21:15 Dose: 12 units Insulin Human Lispro (Humalog) 0 units SC ACHS [facility] Last Admin: 08/27/17 12:04 Dose: Not Given Insulin Human Lispro (Humalog) 4 units SC AC [facility] Last Admin: 08/27/17 12:04 Dose: 4 units Levothyroxine Sodium (Synthroid) 25 mcg PO DAILY@0630 [facility] Last Admin: 08/27/17 05:47 Dose: 25 mcg Magnesium Oxide (Mag-Ox) 400 mg PO DAILY [facility] Last Admin: 08/27/17 08:09 Dose: 400 mg Metformin HCl (Glucophage) 500 mg PO BID [facility] Last Admin: 08/27/17 08:08 Dose: 500 mg Metoprolol Tartrate (Lopressor) 25 mg PO Q12 [facility] Last Admin: 08/27/17 08:09 Dose: 25 mg Pantoprazole Sodium (Protonix Ec Tab) 40 mg PO DAILY [facility] Last Admin: 08/27/17 08:10 Dose: 40 mg Promethazine HCl (Phenergan Syrup) 6.25 mg PO Q6 PRN PRN Reason: Cough Last Admin: 08/23/17 08:19 Dose: 6.25 mg - Labs Labs: 08/27/17 04:40 08/27/17 04:40 - Constitutional Appears: No Acute Distress, Other (NC 4L) - Head Exam Head Exam: NORMAL INSPECTION - Eye Exam Eye Exam: EOMI - ENT Exam ENT Exam: Mucous Membranes Moist - Respiratory Exam Respiratory Exam: Rhonchi (in the lower lobes), Wheezes (mild expiratory wheezing ), NORMAL BREATHING PATTERN - Cardiovascular Exam Cardiovascular Exam: REGULAR RHYTHM, +S1, +S2 - GI/Abdominal Exam GI & Abdominal Exam: Soft, Normal Bowel Sounds. absent: Tenderness - Extremities Exam Extremities Exam: Normal Inspection Additional comments: B/l tremor in the lower extremities R>L Upper extremity tremor improved--back to baseline - Back Exam Back Exam: NORMAL INSPECTION. absent: CVA tenderness (L), CVA tenderness (R) Additional comments: 3 quarter sized pressure ulcers in L buttock Skin surrounding area intact, mild erythema with removal of superficial skin - Neurological Exam Neurological Exam: Alert, Awake, Oriented x3 - Psychiatric Exam Psychiatric exam: Normal Affect, Normal Mood Assessment and Plan - Assessment and Plan (Free Text) Assessment: Assessment/Plan: 71 YO female with multiple co-morbidities (PMHx including Multiple Myeloma, hx of multiple fractures (recent left hip fracture), IDDM type 2, HTN, Pulm HTN, COPD on home oxygen and CPAP, hx of PE s/p IVC filter in 2014) is admitted for unwitnessed syncope. Admission complicated by severe hypocalcemia and QTc prolongation. Unwitnessed syncopal episode -stable -likely acute on chronic; r/o seizures and CVA -Neurology on consult -low prolactin; unable to do MRI of brain, EEG due to tremors -CT head 08/23: no acute changes noted Hypocalcemia, Prolong QTc -Ca resolved -Qtc improving since admission -likely 2/2 to multiple myleoma tx medication -Endocrinology and cardiology on consult -EP; Dr. Burnett consulted; no acute interventions at this time ST changes on EKG (08/24) -new, stable -likely 2/2 to electrolyte imbalance -Cardiology aware, given Mg and Ekg and Echo -Echo normal 08/25 -per cardio and EP no defib at this time, pt high risk COPD -chronic, stable -continue home medications: Duoneb INH solution Q4 PRN SOB -continue home regimen: 2L supplemental O2 via nasal cannula during the day, CPAP at night -Pulmonary consulted; cont current meds Pulmonary HTN -chronic, stable -c/w home medications: Furosemide and Riociguat HTN -chronic, controlled -held home medication due to hypotension on admission: Enalapril 2.5mg PO QD -c/w with Aspirin 81 mg PO QD IDDM type 2 -chronic, controlled -HbA1c 8.6 (08/21) -continue home medications -hypoglycemia protocol in place Hypothyroidism -chronic, controlled -endocrine on board; cont Levothyroxine 25 mcg PO QD Restless leg syndrome -chronic -continue home medications: Clonazepam 0.5 mg PO QD Depression -chronic, controlled -continue home medications: Buspirone 10mg PO Q12 -c/w Aripiprazole 5mg PO QHS -will decrease abilify weekly per Neuro recs to decrease seizure threshold Multiple Myeloma -chronic -continue home medications: Dexamethasone 20mg once a week on mondays, Hydrocortisone 10mg PO QHS -Hem/Onc on board; outpatient follow up Anemia -acute on chronic, stable -likely secondary to multiple myeloma Pressure ulcer -Stage II -3 small dime sized pressure ulcers in L buttock -wound care on board Morbid obesity -chronic -BMI 40.5 DVT prophylaxis -Heparin SC Dispo -Pt clinically improving, will transfer to Med/Surg -PT/OT for deconditioning
[2017-08-27] MEDS: Insulin Detemir 100 Units/ml Inj SC SCH (22:36)
[2017-08-28] MEDS: Proshield Plus GEL TOP SCH ×3 (00:40→18:15)
[2017-08-28] MEDS: Promethazine 6.25 MG/5 ML CUP PO PRN (00:42)
[2017-08-28] MEDS: Albuterol-Ipratrop 3 mg / 0.5 (3 ml) UD INH SCH ×4 (01:06→19:44)
--- NOTE | 2017-08-28 01:27 | PN ---
DATE: 08/27/2017 ENDO FOLLOWUP NOTE SUBJECTIVE: This is a 71-year-old female with multiple myeloma and currently on maintenance oral steroid replacement for underlying secondary hypoadrenalism and is now being followed closely for metabolic management. She presented initially with symptomatic hypocalcemia and upon lengthy discussion with the production line operator/oncologist, Dr. Vilchis, it may have been possibly chemo or medication induced as noted. She has since then improved metabolically as noted thereof. LABORATORY DATA: Her glycemic profile is also fluctuating but improved, and today's glucose values have ranged from 115 to 127 and 161 mg/dL. Her latest calcium level is 8.7. The chemistry showed a BUN of 22, sodium 135, potassium 4.2, chloride 95, CO2 of 34, glucose 126, and creatinine 1. ASSESSMENT AND PLAN: So at this time, we will continue the same basal and bolus insulin regimen as given with Humalog given as 4 units subcu t.i.d. before meals with Levemir given as 12 units subcu at bedtime daily as given. We will titrate incrementally as indicated to optimize metabolic control. We will also continue the calcium carbonate given as 500 mg b.i.d. and may eventually taper off the calcitriol as ordered. We will continue the steroid replacement with Decadron given as 20 mg once weekly and hydrocortisone as 10 mg at bedtime daily as ordered. We will obtain serial chemistries and supplement accordingly as needed. We will follow up with you. Irene Mann MD
[2017-08-28] MEDS: Levothyroxine 25 MCG TAB PO SCH (06:28)
[2017-08-28] MEDS: Insulin Lispro (humaLOG) 100 Units/ml Inj SC SCH ×7 (06:30→23:07)
--- NOTE | 2017-08-28 07:21 | CP.PCM.PN ---
Addendum entered and electronically signed by Brenda Byrne 08/28/17 13:53: An additional 2g of MgSO4 were ordered. Original Note: Subjective - Date & Time of Evaluation Date of Evaluation: 08/28/17 Time of Evaluation: 07:20 - Subjective Subjective: 71F seen and examined at bedside with attending. No acute events overnight. Pt denies any questions or concerns and expresses wishes to go home, "not that I don't like TCU, it's a nice place". She denies SOB changes from baseline and denies any chest pain and endorses she has been getting back and froth from the bathroom with her walker. She is not having any pain, dizziness, headaches. She c/o still having occasional loose stools. Objective - Vital Signs/Intake and Output Vital Signs (last 24 hours): Temp Pulse Resp BP Pulse Ox 37.1 C 72 18 102/62 97 08/28/17 05:00 08/28/17 05:00 08/28/17 05:00 08/28/17 05:00 08/28/17 05:00 - Medications Medications: Current Medications Acetylcysteine (Acetylcysteine 20%) 2 ml INH RBID [facility] Last Admin: 08/27/17 19:42 Dose: Not Given Albuterol/Ipratropium (Duoneb 3 Mg/0.5 Mg (3 Ml) Ud) 3 ml INH RQ4 PRN PRN Reason: Shortness of Breath Last Admin: 08/21/17 17:00 Dose: 3 ml Albuterol/Ipratropium (Duoneb 3 Mg/0.5 Mg (3 Ml) Ud) 3 ml INH RQ6 [facility] Last Admin: 08/28/17 01:06 Dose: Not Given Alprazolam (Xanax) 0.5 mg PO Q8 PRN PRN Reason: Anxiety Aripiprazole (Abilify) 5 mg PO HS [facility] Last Admin: 08/27/17 21:31 Dose: 5 mg Aspirin (Ecotrin) 81 mg PO DAILY [facility] Last Admin: 08/27/17 08:08 Dose: 81 mg Buspirone HCl (Buspar) 10 mg PO Q12@1000,2200 [facility] Last Admin: 08/27/17 21:30 Dose: 10 mg Calcium Carbonate (Oscal) 1,000 mg PO BIDWM [facility] Clonazepam (Klonopin) 0.5 mg PO DAILY PRN PRN Reason: Anxiety Last Admin: 08/23/17 21:18 Dose: 0.5 mg Dexamethasone (Decadron) 20 mg PO MON [facility] Last Admin: 08/23/17 09:33 Dose: Not Given Dextrose (Dextrose 50% Inj) 0 ml IV STAT PRN; Protocol PRN Reason: Hypoglycemia Protocol Last Admin: 08/22/17 17:17 Dose: 50 ml Dextrose (Glutose 15) 0 gm PO ONCE PRN; Protocol PRN Reason: Hypoglycemia Protocol Dimethicone (Proshield Plus Skin Protectant) 1 applic TOP Q8 [facility] Last Admin: 08/28/17 00:40 Dose: 1 applic Enalapril Maleate (Vasotec) 2.5 mg PO DAILY [facility] Furosemide (Lasix) 20 mg PO Q48H [facility] Last Admin: 08/27/17 23:24 Dose: 20 mg Glucagon (Glucagen Diagnostic Kit) 0 mg IM STAT PRN; Protocol PRN Reason: Hypoglycemia Protocol Heparin Sodium (Porcine) (Heparin) 5,000 units SC Q8 [facility] PRN Reason: Protocol Last Admin: 08/28/17 00:40 Dose: 5,000 units Home Med (Riociguat [Adempas]) 2 mg PO TID [facility] Last Admin: 08/27/17 16:36 Dose: 2 mg Hydrocortisone (Cortef) 10 mg PO HS [facility] Last Admin: 08/27/17 21:31 Dose: 10 mg Insulin Detemir (Levemir) 12 units SC HS [facility] Last Admin: 08/27/17 22:36 Dose: 12 units Insulin Human Lispro (Humalog) 0 units SC ACHS [facility] Last Admin: 08/28/17 06:30 Dose: Not Given Insulin Human Lispro (Humalog) 4 units SC AC [facility] Last Admin: 08/27/17 17:15 Dose: 4 units Levothyroxine Sodium (Synthroid) 25 mcg PO DAILY@0630 [facility] Last Admin: 08/28/17 06:28 Dose: 25 mcg Magnesium Oxide (Mag-Ox) 400 mg PO DAILY [facility] Last Admin: 08/27/17 08:09 Dose: 400 mg Metformin HCl (Glucophage) 500 mg PO BID [facility] Last Admin: 08/27/17 16:36 Dose: 500 mg Metoprolol Tartrate (Lopressor) 25 mg PO Q12 [facility] Last Admin: 08/27/17 21:30 Dose: 25 mg Pantoprazole Sodium (Protonix Ec Tab) 40 mg PO DAILY [facility] Last Admin: 08/27/17 08:10 Dose: 40 mg Promethazine HCl (Phenergan Syrup) 6.25 mg PO Q6 PRN PRN Reason: Cough Last Admin: 08/28/17 00:42 Dose: 6.25 mg - Labs Labs: 08/27/17 04:40 08/27/17 04:40 - Constitutional Appears: Non-toxic, No Acute Distress - Head Exam Head Exam: ATRAUMATIC, NORMAL INSPECTION - Eye Exam Eye Exam: Normal appearance Pupil Exam: PERRL - ENT Exam ENT Exam: Mucous Membranes Moist - Neck Exam Neck Exam: Normal Inspection - Respiratory Exam Respiratory Exam: Clear to Ausculation Bilateral, NORMAL BREATHING PATTERN ( Home nasal cannula in place) - Cardiovascular Exam Cardiovascular Exam: REGULAR RHYTHM - GI/Abdominal Exam GI & Abdominal Exam: Soft, Normal Bowel Sounds - Extremities Exam Extremities Exam: Full ROM, Normal Capillary Refill, Normal Inspection. absent : Pedal Edema - Neurological Exam Neurological Exam: Alert, Awake, Oriented x3 - Psychiatric Exam Psychiatric exam: Normal Affect, Normal Mood - Skin Skin Exam: Dry, Warm Assessment and Plan - Assessment and Plan (Free Text) Assessment: 71F with multiple, asymptomatic serious co-morbidities that are well- controlled. She has recovered from being treated this admission for severe hypocalcemia thought to be secondary to multiple myeloma treatment that resulted in a syncopal episode. Neurology, Cardiology, Endocrinology, Heme/Onc , and Pulmonary have evaluated the patient. At present the question is whether or not the patient should receive a defibrillator, otherwise patient is stable. Plan: Diet: MOD CHO DVT Prophylaxis: SC Heparin PT: Pending Neurology (Dr Rodrigez): baseline tremor unable to obtain EEG/MRI, Depakote held and then discontinued Cardiology (Dr Piña): Managing Torsade prevention and possible defibrillator placement (Dr Piña/Dr Angel) EPS Cardiology (Dr Burnett): Not recommending at present Pulmonary (Dr No): c/w home medications Endocrinology (Dr Mann): CaCO3 500mg BIDWM, Calcitriol 0.5mg, 4U Lispro ACTID, 12U Levemir, Decadron 20mg (weekly), Hydrocortisone 10mg (HS), c/w Synthroid Heme/Onc (Dr Vilchis): Treatment as outpatient HTN: controlled, asymptomatic, meds held at present Pulm HTN: controlled, asymptomatic, c/w medications DM: controlled, asymptomatic, c/w meds (see above) Loose Stools: Pt reassured, likely a combination of medications, will eval for dietary/medication changes Hypomagnesemia: 2g MgSO4, c/w PO MgO2 Dispo: Home w/ services pending PT eval and defib decision Patient wishes to go home not TCU
[2017-08-28] MEDS: Acetylcysteine 20% Inhal Soln (4ml) INH SCH ×2 (08:10→19:44)
[2017-08-28] MEDS: Magnesium Oxide 400 mg Tab UD PO SCH (10:14)
[2017-08-28] MEDS: Pantoprazole 40 mg EC Tab PO SCH (10:15)
[2017-08-28 11:00] LABS: ALB/GLOB RATIO 1.1 (1.0-2.1); ALBUMIN 3.7 g/dL (3.5-5.0); ALT/SGPT 29 U/L (9-52); AST/SGOT 27 U/L (14-36); BLOOD UREA NITROGEN 29 mg/dl (7-17); CALCIUM 9.5 mg/dL (8.4-10.2); GFR AFRICAN-AMERICAN > 60; GFR NON-AFRICAN AMERICAN 55
[2017-08-28] MEDS ORDERED: Magnesium Sulfate 2 gm/50 ml 2 GM/50 ML BAG IVPB ONE ×2 (11:04→13:27)
--- NOTE | 2017-08-28 11:16 | CP.PCM.PN ---
Subjective - Date & Time of Evaluation Date of Evaluation: 08/28/17 Time of Evaluation: 11:16 - Subjective Subjective: NO APPARENT DISTRESS NO CHEST PAINS/SOB OOB TO CHAIR Objective - Vital Signs/Intake and Output Vital Signs (last 24 hours): Temp Pulse Resp BP Pulse Ox 98.3 F 65 22 129/78 96 08/28/17 08:10 08/28/17 10:13 08/28/17 08:10 08/28/17 10:13 08/28/17 08:10 - Medications Medications: Current Medications Acetylcysteine (Acetylcysteine 20%) 2 ml INH RBID [facility] Last Admin: 08/28/17 08:10 Dose: 2 ml Albuterol/Ipratropium (Duoneb 3 Mg/0.5 Mg (3 Ml) Ud) 3 ml INH RQ4 PRN PRN Reason: Shortness of Breath Last Admin: 08/21/17 17:00 Dose: 3 ml Albuterol/Ipratropium (Duoneb 3 Mg/0.5 Mg (3 Ml) Ud) 3 ml INH RQ6 [facility] Last Admin: 08/28/17 08:10 Dose: 3 ml Alprazolam (Xanax) 0.5 mg PO Q8 PRN PRN Reason: Anxiety Aripiprazole (Abilify) 5 mg PO HS [facility] Last Admin: 08/27/17 21:31 Dose: 5 mg Aspirin (Ecotrin) 81 mg PO DAILY [facility] Last Admin: 08/28/17 10:11 Dose: 81 mg Buspirone HCl (Buspar) 10 mg PO Q12@1000,2200 [facility] Last Admin: 08/28/17 10:10 Dose: 10 mg Calcium Carbonate (Oscal) 500 mg PO BIDWM [facility] Last Admin: 08/28/17 10:28 Dose: 500 mg Clonazepam (Klonopin) 0.5 mg PO DAILY PRN PRN Reason: Anxiety Last Admin: 08/23/17 21:18 Dose: 0.5 mg Dexamethasone (Decadron) 20 mg PO MON [facility] Last Admin: 08/23/17 09:33 Dose: Not Given Dextrose (Dextrose 50% Inj) 0 ml IV STAT PRN; Protocol PRN Reason: Hypoglycemia Protocol Last Admin: 08/22/17 17:17 Dose: 50 ml Dextrose (Glutose 15) 0 gm PO ONCE PRN; Protocol PRN Reason: Hypoglycemia Protocol Dimethicone (Proshield Plus Skin Protectant) 1 applic TOP Q8 [facility] Last Admin: 08/28/17 10:15 Dose: Not Given Enalapril Maleate (Vasotec) 2.5 mg PO DAILY [facility] Furosemide (Lasix) 20 mg PO Q48H [facility] Last Admin: 08/27/17 23:24 Dose: 20 mg Glucagon (Glucagen Diagnostic Kit) 0 mg IM STAT PRN; Protocol PRN Reason: Hypoglycemia Protocol Heparin Sodium (Porcine) (Heparin) 5,000 units SC Q8 [facility] PRN Reason: Protocol Last Admin: 08/28/17 10:10 Dose: 5,000 units Home Med (Riociguat [Adempas]) 2 mg PO TID [facility] Last Admin: 08/28/17 10:15 Dose: 2 mg Hydrocortisone (Cortef) 10 mg PO HS [facility] Last Admin: 08/27/17 21:31 Dose: 10 mg Magnesium Sulfate (Magnesium Sulfate 2 Gm/50 Ml Water) 2 gm in 50 mls @ 50 mls/ hr IVPB ONCE ONE PRN Reason: 2 GM/HR Stop: 08/28/17 12:03 Insulin Detemir (Levemir) 12 units SC HS [facility] Last Admin: 08/27/17 22:36 Dose: 12 units Insulin Human Lispro (Humalog) 0 units SC ACHS [facility] Last Admin: 08/28/17 06:30 Dose: Not Given Insulin Human Lispro (Humalog) 4 units SC AC [facility] Last Admin: 08/28/17 10:12 Dose: 4 units Levothyroxine Sodium (Synthroid) 25 mcg PO DAILY@0630 [facility] Last Admin: 08/28/17 06:28 Dose: 25 mcg Magnesium Oxide (Mag-Ox) 400 mg PO DAILY [facility] Last Admin: 08/28/17 10:14 Dose: 400 mg Metformin HCl (Glucophage) 500 mg PO BID [facility] Last Admin: 08/28/17 10:12 Dose: 500 mg Metoprolol Tartrate (Lopressor) 25 mg PO Q12 [facility] Last Admin: 08/28/17 10:13 Dose: 25 mg Pantoprazole Sodium (Protonix Ec Tab) 40 mg PO DAILY [facility] Last Admin: 08/28/17 10:15 Dose: 40 mg Promethazine HCl (Phenergan Syrup) 6.25 mg PO Q6 PRN PRN Reason: Cough Last Admin: 08/28/17 00:42 Dose: 6.25 mg - Labs Labs: 08/27/17 04:40 08/28/17 10:00 - Constitutional Appears: No Acute Distress - Head Exam Head Exam: ATRAUMATIC, NORMAL INSPECTION, NORMOCEPHALIC - Eye Exam Eye Exam: EOMI, Normal appearance, PERRL Pupil Exam: NORMAL ACCOMODATION, PERRL - ENT Exam ENT Exam: Mucous Membranes Moist, Normal Exam - Neck Exam Neck Exam: Full ROM, Normal Inspection. absent: Lymphadenopathy - Respiratory Exam Respiratory Exam: Clear to Ausculation Bilateral, NORMAL BREATHING PATTERN - Cardiovascular Exam Cardiovascular Exam: REGULAR RHYTHM, +S1, +S2. absent: Murmur - GI/Abdominal Exam GI & Abdominal Exam: Soft, Normal Bowel Sounds. absent: Tenderness - Rectal Exam Rectal Exam: NORMAL INSPECTION - Extremities Exam Extremities Exam: Full ROM, Normal Capillary Refill, Normal Inspection. absent : Joint Swelling, Pedal Edema - Back Exam Back Exam: NORMAL INSPECTION - Neurological Exam Neurological Exam: Alert, Awake, CN II-XII Intact, Oriented x3 - Psychiatric Exam Psychiatric exam: Normal Affect, Normal Mood - Skin Skin Exam: Dry, Intact, Normal Color, Warm Assessment and Plan - Assessment and Plan (Free Text) Assessment: COPD--IMPROVED Plan: NO FURTHER PULMONARY INTERVENTION FOR NOW WILL SIGN OFF CASE AND SEE AGAIN AT YOUR REQUEST
[2017-08-28] MEDS ORDERED: Magnesium Sulfate 2 gm/50 ml 2 GM/50 ML BAG IVPB STA (13:29)
[2017-08-28] MEDS: Insulin Detemir 100 Units/ml Inj SC SCH (23:07)
--- NOTE | 2017-08-29 00:06 | PN ---
DATE: 08/28/2017 LOCATION: Room 655. SUBJECTIVE: This is a 71-year-old female with multiple myeloma and recent electrolyte abnormalities and was initially seen for management of symptomatic hypocalcemia that has since then improved clinically and metabolically as noted thereof. However, she continues to have hypomagnesemia is followed very closely by the medical staff. Her latest magnesium levels ranged from 1.3 yesterday to 1.4 today as noted. LABORATORY DATA: The latest chemistry showed a BUN of 29, sodium 133, potassium 4.5, chloride 93, CO2 30, glucose 206 and creatinine 1. Her calcium level is 8.7 as noted with an albumin level of 3.7 and a corrected calcium of 9 mg/dL. ASSESSMENT AND PLAN: So at this time, we will continue the calcium supplementation and also the magnesium supplementation given orally and also parenterally by the medical staff as noted. She has ongoing intermittent bouts of loose watery diarrhea with a probable underlying malabsorption with also concomitant oral diuretic use given every other day which will both contribute to the gastrointestinal and renal losses of magnesium and contribute to the underlying hypomagnesemia. We will obtain serial chemistries and supplement accordingly needed. We will also continue the oral steroid replacement therapy as given and ordered. We will obtain serial cortisol levels and adjust her dose regimen accordingly. We will follow. Irene Mann MD
[2017-08-29] MEDS: Proshield Plus GEL TOP SCH ×3 (00:57→18:28)
[2017-08-29] MEDS: Albuterol-Ipratrop 3 mg / 0.5 (3 ml) UD INH SCH ×3 (01:14→13:16)
[2017-08-29] MEDS: Levothyroxine 25 MCG TAB PO SCH (06:44)
[2017-08-29 07:22] LABS: HEMOGLOBIN 9.1 g/dL (12.0-16.0); MEAN CELL VOLUME 89.4 fl (81.0-99.0); MEAN CORPUSCULAR HEMOGLOBIN 29.5 pg (27.0-31.0); RBC 3.08 Mil/uL (3.80-5.20); RED CELL DISTRIBUTION WIDTH 16.9 % (11.5-14.5); WHITE BLOOD COUNT 5.5 K/uL (4.8-10.8)
[2017-08-29 07:24] LABS: BLOOD UREA NITROGEN 29 mg/dl (7-17); CALCIUM 9.2 mg/dL (8.4-10.2); GFR AFRICAN-AMERICAN > 60; GFR NON-AFRICAN AMERICAN 55
[2017-08-29] MEDS: Acetylcysteine 20% Inhal Soln (4ml) INH SCH (07:40)
--- NOTE | 2017-08-29 08:08 | CP.PCM.DIS ---
Addendum entered and electronically signed by Sapphire Salcedo MD 08/29/17 11:50: Rx given for blood work: CMP, Calcium, Mg, Phos. To be done before apt with PMD. Original Note: Provider - Provider Date of Admission: 08/19/17 21:17 Attending physician: Ciara Jane MD Consults: Neuro: Dr. Marrero Endo: Dr. Mann Pulmonary: Dr. No Hem/Onc: Dr. Vilchis Cardio: Dr. Piña Cardio EP: Dr. Dickerson Time Spent in preparation of Discharge (in minutes): 30 Hospital Course - Lab Results Lab Results: Micro Results 08/19/17 19:20 Blood-Venous Blood Culture - Final NO GROWTH AFTER 5 DAYS 08/19/17 19:05 Blood-Venous Blood Culture - Final NO GROWTH AFTER 5 DAYS 08/19/17 19:05 Blood-Venous Gram Stain - Final TEST NOT PERFORMED 08/22/17 07:45 Stool Stool Culture - Final NO SALMONELLA, SHIGELLA OR CAMPYLOBACTER ISOLATED. 08/20/17 07:05 Naris MRSA Culture (Admit) - Final MRSA NOT DETECTED 08/20/17 07:05 Urine,Clean Catch Urine Culture - Final No Growth (<1,000 CFU/ML) Most Recent Lab Values WBC 5.5 K/uL (4.8-10.8) 08/29/17 07:00 RBC 3.08 Mil/uL (3.80-5.20) L 08/29/17 07:00 Hgb 9.1 g/dL (12.0-16.0) L 08/29/17 07:00 Hct 27.6 % (34.0-47.0) L 08/29/17 07:00 MCV 89.4 fl (81.0-99.0) 08/29/17 07:00 MCH 29.5 pg (27.0-31.0) 08/29/17 07:00 MCHC 33.0 g/dL (33.0-37.0) 08/29/17 07:00 RDW 16.9 % (11.5-14.5) H 08/29/17 07:00 Plt Count 301 K/uL (130-400) 08/29/17 07:00 MPV 8.5 fl (7.2-11.7) 08/27/17 04:40 Neut % (Auto) 67.9 % (50.0-75.0) 08/27/17 04:40 Lymph % (Auto) 13.3 % (20.0-40.0) L 08/27/17 04:40 [place] % (Auto) 16.4 % (0.0-10.0) H 08/27/17 04:40 Eos % (Auto) 1.7 % (0.0-4.0) 08/27/17 04:40 Baso % (Auto) 0.7 % (0.0-2.0) 08/27/17 04:40 Neut # (Auto) 3.2 K/uL (1.8-7.0) 08/27/17 04:40 Lymph # (Auto) 0.6 K/uL (1.0-4.3) L 08/27/17 04:40 [place] # (Auto) 0.8 K/uL (0.0-0.8) 08/27/17 04:40 Eos # (Auto) 0.1 K/uL (0.0-0.7) 08/27/17 04:40 Baso # (Auto) 0.0 K/uL (0.0-0.2) 08/27/17 04:40 Total Counted Cancelled 08/21/17 04:16 Neutrophils % (Manual) 93 % (42-75) H 08/20/17 04:35 Band Neutrophils % 1 % (0-2) 08/20/17 04:35 Lymphocytes % (Manual) 2 % (20-50) L 08/20/17 04:35 Reactive Lymphs % Cancelled 08/21/17 04:16 Monocytes % (Manual) 4 % (0-10) 08/20/17 04:35 Eosinophils % (Manual) 1 % (0-7) 08/19/17 19:00 Basophils % (Manual) Cancelled 08/21/17 04:16 Metamyelocytes % Cancelled 08/21/17 04:16 Myelocytes % Cancelled 08/21/17 04:16 Promyelocytes % Cancelled 08/21/17 04:16 Blast Cells % Cancelled 08/21/17 04:16 Plasma Cell % (Manual) Cancelled 08/21/17 04:16 Nucleated RBC % Cancelled 08/21/17 04:16 Hypersegmented Polys Cancelled 08/21/17 04:16 Smudge Cells Cancelled 08/21/17 04:16 Toxic Granulation Cancelled 08/21/17 04:16 Dohle Bodies Cancelled 08/21/17 04:16 Naeem Rods Cancelled 08/21/17 04:16 Platelet Estimate Normal (NORMAL) 08/20/17 04:35 Plt Clumps, EDTA Cancelled 08/21/17 04:16 Large Platelets Present 08/20/17 04:35 Giant Platelets Cancelled 08/21/17 04:16 RBC Morphology Cancelled 08/21/17 04:16 Polychromasia Slight 08/19/17 19:00 Hypochromasia (manual) Slight 08/20/17 04:35 Poikilocytosis (manual Slight 08/19/17 19:00 Basophilic Stippling Cancelled 08/21/17 04:16 Anisocytosis (manual) Moderate 08/19/17 19:00 Microcytosis (manual) Slight 08/19/17 19:00 Macrocytosis (manual) Cancelled 08/21/17 04:16 Spherocytes Cancelled 08/21/17 04:16 Sickle Cells Cancelled 08/21/17 04:16 Target Cells Cancelled 08/21/17 04:16 Tear Drop Cells Cancelled 08/21/17 04:16 Ovalocytes Cancelled 08/21/17 04:16 Stomatocytes Cancelled 08/21/17 04:16 Helmet Cells Cancelled 08/21/17 04:16 Jain-Halbur Bodies Cancelled 08/21/17 04:16 Luis Alberto Cells Cancelled 08/21/17 04:16 Acanthocytes (Spur) Cancelled 08/21/17 04:16 Rouleaux Cancelled 08/21/17 04:16 Schistocytes Cancelled 08/21/17 04:16 pCO2 38 mm/Hg (35-45) 08/23/17 17:47 pO2 97 mm/Hg (80-100) 08/23/17 17:47 HCO3 27.9 mmol/L (21-28) 08/23/17 17:47 ABG pH 7.47 (7.35-7.45) H 08/23/17 17:47 ABG Total CO2 28.9 mmol/L (22-28) H 08/23/17 17:47 ABG O2 Saturation 94.7 % (95-98) L 08/23/17 17:47 ABG O2 Content 12.8 ML/dL (15-23) L 08/23/17 17:47 ABG Base Excess 3.8 mmol/L (-2.0-3.0) H 08/23/17 17:47 ABG Hemoglobin 9.5 g/dL (11.7-17.4) L 08/23/17 17:47 ABG Carboxyhemoglobin 0 % (0.5-1.5) L 08/23/17 17:47 POC ABG HHb (Measured) 5.3 % (0.0-5.0) H 08/23/17 17:47 ABG Methemoglobin 0.0 % (0.0-3.0) 08/23/17 17:47 ABG O2 Capacity 13.5 mL/dL (16-24) L 08/23/17 17:47 Lake Test Yes 08/23/17 17:47 VBG pH 7.35 (7.32-7.43) 08/19/17 19:30 VBG pCO2 41 mmHg (40-60) 08/19/17 19:30 VBG HCO3 21.5 mmol/L 08/19/17 19:30 VBG Total CO2 23.9 mmol/L (22-28) 08/19/17 19:30 VBG O2 Sat (Calc) 59.0 % (40-65) 08/19/17 19:30 VBG Base Excess -2.9 mmol/L (0.0-2.0) L 08/19/17 19:30 VBG Potassium 3.9 mmol/L (3.6-5.2) 08/19/17 19:30 A-a O2 Difference 84.0 mm/Hg 08/23/17 17:47 Hgb O2 Saturation 94.7 % (95.0-98.0) L 08/23/17 17:47 Sodium 134.0 mmol/L (132-148) 08/19/17 19:30 Chloride 104.0 mmol/L (98-107) 08/19/17 19:30 Glucose 225 mg/dL (65-105) H 08/19/17 19:30 Lactate 1.8 mmol/L (0.7-2.1) 08/19/17 19:30 Vent Mode N/c 08/23/17 17:47 FiO2 32.0 % 08/23/17 17:47 Sodium 132 mmol/l (132-148) 08/29/17 07:00 Potassium 4.8 MMOL/L (3.6-5.0) 08/29/17 07:00 Chloride 95 mmol/L (98-107) L 08/29/17 07:00 Carbon Dioxide 32 mmol/L (22-30) H 08/29/17 07:00 Anion Gap 10 (10-20) 08/29/17 07:00 BUN 29 mg/dl (7-17) H 08/29/17 07:00 Creatinine 1.0 mg/dl (0.7-1.2) 08/29/17 07:00 Est GFR ( Amer) > 60 08/29/17 07:00 Est GFR (Non-Af Amer) 55 08/29/17 07:00 POC Glucose (mg/dL) 139 mg/dL (65-110) H 08/29/17 04:59 Random Glucose 136 mg/dL (65-105) H 08/29/17 07:00 Hemoglobin A1c 8.6 % (4.2-6.5) H 08/21/17 04:16 Calcium 9.2 mg/dL (8.4-10.2) 08/29/17 07:00 Ionized Calcium 2.9 mg/dL (4.80-5.60) L 08/20/17 06:03 Phosphorus 4.7 mg/dl (2.5-4.5) H 08/29/17 07:00 Magnesium 1.7 MG/DL (1.6-2.3) 08/29/17 07:00 RBC Magnesium 4.8 mg/dL (4.0-6.4) 08/25/17 16:36 Total Bilirubin 0.7 mg/dl (0.2-1.3) 08/28/17 10:00 AST 27 U/L (14-36) 08/28/17 10:00 ALT 29 U/L (9-52) 08/28/17 10:00 Alkaline Phosphatase 84 U/L (38-126) 08/28/17 10:00 Ammonia 12 umo/L (11-51) 08/24/17 14:34 Troponin I 0.0400 ng/mL (0.00-0.120) 08/21/17 07:01 NT-Pro-B Natriuret Pep 14772 pg/ml (0-900) H 08/20/17 04:35 Total Protein 7.0 G/DL (6.3-8.2) 08/28/17 10:00 Albumin 3.7 g/dL (3.5-5.0) 08/28/17 10:00 Globulin 3.3 gm/dL (2.2-3.9) 08/28/17 10:00 Albumin/Globulin Ratio 1.1 (1.0-2.1) 08/28/17 10:00 Amylase 65 U/L (30-110) 08/24/17 14:34 Lipase 47 U/L (23-300) 08/24/17 14:34 Vitamin B12 594 pg/mL (239-931) 08/20/17 10:41 25-OH Vitamin D Total 25 ng/mL (30-100) L 08/24/17 12:43 25-Hydroxy Vitamin D2 11 ng/mL 08/24/17 12:43 25-Hydroxy Vitamin D3 14 ng/mL 08/24/17 12:43 Procalcitonin 0.28 NG/ML (0.19-0.49) 08/20/17 04:35 Thyroxine (T4) 3.56 ug/dl (5.5-11.0) L 08/24/17 04:35 TSH 3rd Generation 2.51 mIU/ML (0.46-4.68) 08/24/17 04:35 Prolactin < 1.4 ng/mL (3.0-18.9) L 08/20/17 10:41 PTH Intact Whole Molec 162 pg/mL (14-64) H 08/20/17 06:03 Cortisol AM Sample 16.8 ug/dL (4.46-22.7) 08/21/17 04:16 ACTH 17 pg/mL (6-50) 08/21/17 04:16 Venous Blood Potassium 3.9 mmol/L (3.6-5.2) 08/19/17 19:30 Urine Color Yellow (YELLOW) 08/19/17 23:20 Urine Clarity Cloudy (Clear) 08/19/17 23:20 Urine pH 5.0 (5.0-8.0) 08/19/17 23:20 Ur Specific [place] 1.017 (1.003-1.030) 08/19/17 23:20 Urine Protein 100 mg/dL (NEGATIVE) 08/19/17 23:20 Urine Glucose (UA) Neg mg/dL (Normal) 08/19/17 23:20 Urine Ketones Negative mg/dL (NEGATIVE) 08/19/17 23:20 Urine Blood Negative (NEGATIVE) 08/19/17 23:20 Urine Nitrate Negative (NEGATIVE) 08/19/17 23:20 Urine Bilirubin Negative (NEGATIVE) 08/19/17 23:20 Urine Urobilinogen 0.2-1.0 mg/dL (0.2-1.0) 08/19/17 23:20 Ur Leukocyte Esterase Neg Maggie/uL (Negative) 08/19/17 23:20 Urine RBC (Auto) 1 /hpf (0-3) 08/19/17 23:20 Urine Microscopic WBC 3 /hpf (0-5) 08/19/17 23:20 Ur Squamous Epith Cells 1 /hpf (0-5) 08/19/17 23:20 Amorphous Sediment Occ /ul (<OCC) H 08/19/17 23:20 Urine Bacteria Occ (<OCC) H 08/19/17 23:20 Hyaline Casts 0-2 /hpf (0-2) 08/19/17 23:20 Granular Casts (Auto) 66 /lpf (0-1) 08/19/17 23:20 Ur Random Sodium 85 meq/L 08/24/17 15:25 Ur Random Potassium 28.9 mmol/L 08/24/17 15:25 Urine Chloride 92 mmol/L (32-290) 08/24/17 15:25 RPR Nonreactive (NONREACTIVE) 08/20/17 10:57 C. difficile Tox B Gene Not detected (Not Detected) 08/23/17 18:43 C. difficile Ag & Toxin Negative (NEGATIVE) 08/23/17 16:38 - Hospital Course Hospital Course: 71 YO Female with sig PMHx of Multiple Myeloma, hx of multiple fractures, IDDM type 2, HTN, Pulm HTN, COPD on home oxygen and CPAP, hx of PE s/p IVC filter in 2014, GERD, Depression is admitted for syncope, electrolyte abnormalities. Pt was found to be severe electrolyte abnormalities (Ca, Mg, Phos), with changes noted in EKG including prolong QTc. Electrolyte abnormalities have resolved, Qtc improving, medications optimized, and is not a candidate for life vest/ defibrillator at this time per cardio/EP. Will d/c home with Metropolol ( prolong QTc), Levothyroxine 25mg, continue PO Mg and Ca as per Endo. Abilify was decreased from 10mg to 5mg Daily per Neuro. Will d/c patient home, follow up with Dr. Neumann and Dr. Vilchis in 1 week. Cont meds: Levothyroxine Sodium (Synthroid) 25 mcg PO DAILY@0630 [facility] Magnesium Oxide (Mag-Ox) 400 mg PO DAILY [facility] Calcium + vitamin D3 600mg PO BIDWM Metoprolol Tartrate (Lopressor) 25 mg PO Q12 [facility] + Alprazolam (Xanax) 0.5 mg PO Q8 PRN Aripiprazole (Abilify) 5 mg PO HS [facility] Aspirin (Ecotrin) 81 mg PO DAILY [facility] Buspirone HCl (Buspar) 10 mg PO Q12@1000,2200 Clonazepam (Klonopin) 0.5 mg PO DAILY PRN Dexamethasone (Decadron) 20 mg PO MON [facility] Dimethicone (Proshield Plus Skin Protectant) 1 applic TOP Q8 [facility] Enalapril Maleate (Vasotec) 2.5 mg PO DAILY [facility] Furosemide (Lasix) 20 mg PO Q48H [facility] Home Med (Riociguat [Adempas]) 2 mg PO TID [facility] Hydrocortisone (Cortef) 10 mg PO HS [facility] Insulin Detemir (Levemir) 12 units SC HS [facility] Insulin Human Lispro (Humalog) 4 units SC AC [facility] Metformin HCl (Glucophage) 500 mg PO BID [facility] Discharge Exam - Head Exam Head Exam: ATRAUMATIC, NORMAL INSPECTION - Eye Exam Eye Exam: EOMI, Normal appearance - ENT Exam ENT Exam: Mucous Membranes Moist - Respiratory Exam Respiratory Exam: Wheezes (faint expiratory wheezing ), NORMAL BREATHING PATTERN. absent: Rales, Rhonchi - Cardiovascular Exam Cardiovascular Exam: REGULAR RHYTHM, +S1, +S2 - GI/Abdominal Exam GI & Abdominal Exam: Normal Bowel Sounds, Soft. absent: Distended, Guarding, Tenderness - Extremities Exam Extremities exam: full ROM, normal inspection Additional comments: B/l tremors in the upper and lower extremities, resolves with action - Back Exam Back exam: NORMAL INSPECTION - Neurological Exam Neurological exam: Alert, Oriented x3 - Psychiatric Exam Psychiatric exam: Normal Affect, Normal Mood Discharge Plan - Discharge Medications Prescriptions: Calcium Carbonate/Vitamin D3 [Calcium 600 + Vit D Tablet] 1 each PO BID #60 tablet Insulin Glargine, Recombina [Lantus] 12 unit SC HS #1 unit Insulin Lispro [humALOG] 4 unit SC TID #1 ml Levothyroxine [Synthroid] 25 mcg PO DAILY@0630 #30 tab Magnesium Oxide [Mag-Ox] 400 mg PO DAILY #30 tab Metoprolol Tartrate [Lopressor] 25 mg PO Q12 #30 tab - Follow Up Plan Condition: STABLE Disposition: HOME/ ROUTINE Patient education suggested?: Yes Instructions: Tremor, Hypocalcemia (DC), Syncope (DC) Additional Instructions: Please follow up with PMD, Dr. Neumann (colliery clerk awake will call pt for appointment ) and Dr. Vilchis in 1 week Referrals: Luis Eduardo Vilchis MD [Staff Provider] -
[2017-08-29] MEDS: Insulin Lispro (humaLOG) 100 Units/ml Inj SC SCH ×3 (09:00→17:50)
[2017-08-29] MEDS: Magnesium Oxide 400 mg Tab UD PO SCH (09:02)
[2017-08-29] MEDS: Pantoprazole 40 mg EC Tab PO SCH (09:03)
[2017-08-29 16:08] VITALS: BP 109/56; PULSE 89; RESP 20; TEMP 98.4; O2SAT 98
--- NOTE | 2017-08-29 18:40 | PN ---
DATE: 08/29/2017 ENDO FOLLOWUP NOTE In room 407. SUBJECTIVE: This is a 71-year-old female with multiple myeloma and secondary hypoadrenalism, currently on oral steroid replacement therapy and is now being followed closely for metabolic management. Her calcium levels have improved since the initial very low calcium levels on admission as noted. Her oral intake remains variable at this time with occasional bouts of dyspepsia or loose watery diarrhea as noted. Her latest chemistries showed a BUN of 29, sodium 132, potassium 4.8, chloride 95, CO2 32, glucose 136, and creatinine 1. Her glucose values have ranges from 139 to 194 mg/dL. Her calcium level is now 9.2 mg/dL and magnesium of 1.7. So at this time, we will continue the calcium carbonate actually with the combination of vitamin D for [id number] usage as noted. They come now in a combo pill of calcium/600 with vitamin D taken twice a day as ordered. We will continue with the oral magnesium supplementation as ordered. We will also continue the levothyroxine daily in the morning as given. We will obtain serial chemistries and supplement accordingly as needed. We will follow. Irene Mann MD
--- NOTE | 2017-08-29 21:22 | CP.PCM.PN ---
Subjective - Date & Time of Evaluation Date of Evaluation: 08/27/17 Time of Evaluation: 12:05 - Subjective Subjective: Feeling better Objective - Vital Signs/Intake and Output Vital Signs (last 24 hours): Temp Pulse Resp BP Pulse Ox 98.4 F 89 20 109/56 L 98 08/29/17 16:07 08/29/17 16:07 08/29/17 16:07 08/29/17 16:07 08/29/17 16:07 - Labs Labs: 08/29/17 07:00 08/29/17 07:00 - Head Exam Head Exam: ATRAUMATIC - Eye Exam Eye Exam: Normal appearance - ENT Exam ENT Exam: Mucous Membranes Dry - Respiratory Exam Respiratory Exam: NORMAL BREATHING PATTERN - Cardiovascular Exam Cardiovascular Exam: +S1, +S2 - GI/Abdominal Exam GI & Abdominal Exam: Normal Bowel Sounds Assessment and Plan (1) Hypocalcemia syndrome Assessment & Plan: resolving may be related to Revlimid; will hold as outpatient Status: Acute (2) Anemia Assessment & Plan: chronic disease, multiple myeloma, myeloma treatment Status: Resolved (3) Multiple myeloma Assessment & Plan: lytic lesions complicated by acetabular fracture outpatient treatment Status: Chronic
--- NOTE | 2017-08-29 21:24 | CP.PCM.PN ---
Subjective - Date & Time of Evaluation Date of Evaluation: 08/28/17 Time of Evaluation: 14:15 - Subjective Subjective: Feeling better Objective - Vital Signs/Intake and Output Vital Signs (last 24 hours): Temp Pulse Resp BP Pulse Ox 98.4 F 89 20 109/56 L 98 08/29/17 16:07 08/29/17 16:07 08/29/17 16:07 08/29/17 16:07 08/29/17 16:07 - Labs Labs: 08/29/17 07:00 08/29/17 07:00 - Head Exam Head Exam: ATRAUMATIC - Eye Exam Eye Exam: Normal appearance - ENT Exam ENT Exam: Mucous Membranes Dry - Respiratory Exam Respiratory Exam: NORMAL BREATHING PATTERN - Cardiovascular Exam Cardiovascular Exam: +S1, +S2 - GI/Abdominal Exam GI & Abdominal Exam: Normal Bowel Sounds Assessment and Plan (1) Hypocalcemia syndrome Assessment & Plan: resolved may be related to Revlimid; will hold as outpatient Status: Acute (2) Anemia Assessment & Plan: chronic disease, multiple myeloma, myeloma treatment Status: Resolved (3) Multiple myeloma Assessment & Plan: lytic lesions complicated by acetabular fracture outpatient treatment Status: Chronic
== END 2017-08-29 17:00 | disposition home or self-care (01) | DRG 641 ==
LOC: H.ER 17:44 → H.ERHOLD 21:17 → H.ICU/CCU 08-20 01:15 → H.MEDSURG1 08-27 14:03 → H.TEL 08-27 18:08
PROVIDERS: ADMIT Family Medicine Geriatric Medicine; ATTEND Family Medicine Geriatric Medicine
DX: E83.51 Hypocalcemia (principal); E27.49 Other adrenocortical insufficiency; I50.32 Chronic diastolic (congestive) heart failure; J44.0 Chronic obstructive pulmonary disease with (acute) lower respiratory infection; J44.1 Chronic obstructive pulmonary disease with (acute) exacerbation; K90.9 Intestinal malabsorption, unspecified; N17.9 Acute kidney failure, unspecified; Z68.41 Body mass index [BMI] 40.0-44.9, adult; C90.00 Multiple myeloma not having achieved remission; R55 Syncope and collapse; D63.8 Anemia in other chronic diseases classified elsewhere; E03.9 Hypothyroidism, unspecified; E07.81 Sick-euthyroid syndrome; E11.9 Type 2 diabetes mellitus without complications; E55.9 Vitamin D deficiency, unspecified; L89.322 Pressure ulcer of left buttock, stage 2; E78.00 Pure hypercholesterolemia, unspecified; E78.5 Hyperlipidemia, unspecified; E86.0 Dehydration; F32.9 Major depressive disorder, single episode, unspecified; F41.1 Generalized anxiety disorder; G20 Parkinson's disease; G25.81 Restless legs syndrome; G47.33 Obstructive sleep apnea (adult) (pediatric); H91.90 Unspecified hearing loss, unspecified ear; I45.81 Long QT syndrome; I11.0 Hypertensive heart disease with heart failure; I25.10 Atherosclerotic heart disease of native coronary artery without angina pectoris; I27.29 Other secondary pulmonary hypertension; I27.81 Cor pulmonale (chronic); I48.91 Unspecified atrial fibrillation; J20.9 Acute bronchitis, unspecified; K21.9 Gastro-esophageal reflux disease without esophagitis; M05.10 Rheumatoid lung disease with rheumatoid arthritis of unspecified site; M79.7 Fibromyalgia; R32 Unspecified urinary incontinence; T17.990A Other foreign object in respiratory tract, part unspecified in causing asphyxiation, initial encounter; Z79.4 Long term (current) use of insulin; Z79.52 Long term (current) use of systemic steroids; Z79.82 Long term (current) use of aspirin; Z79.899 Other long term (current) drug therapy; Z86.711 Personal history of pulmonary embolism; Z86.718 Personal history of other venous thrombosis and embolism; Z87.01 Personal history of pneumonia (recurrent); Z99.81 Dependence on supplemental oxygen; F41.9 Anxiety disorder, unspecified; G43.909 Migraine, unspecified, not intractable, without status migrainosus; M19.90 Unspecified osteoarthritis, unspecified site; R29.6 Repeated falls; I95.9 Hypotension, unspecified; R00.0 Tachycardia, unspecified; E66.01 Morbid (severe) obesity due to excess calories

== ENCOUNTER 2017-09-02 17:18 | Inpatient (IN) | payer MEDICARE, OTHER ==
[2017-09-02 17:19] VITALS: BMI 29.7
[2017-09-02] MEDS ORDERED: Albuterol-Ipratrop 3 mg / 0.5 (3 ml) UD IH STA (17:46)
[2017-09-02] MEDS ORDERED: Sodium Chloride 0.9% 500 ML IV STA (17:46)
[2017-09-02] MEDS ORDERED: Albuterol-Ipratrop 3 mg / 0.5 (3 ml) UD INH STA (17:46)
--- NOTE | 2017-09-02 17:53 | ED PDOC ---
HPI: SOB/CHF/COPD Time Seen by Provider: 09/02/17 17:37 Chief Complaint (Nursing): Respiratory Distress Chief Complaint (Provider): Dyspnea History Per: Patient History/Exam Limitations: no limitations Onset/Duration Of Symptoms: Days (3) Current Symptoms Are (Timing): Still Present Additional Complaint(s): Pt. with dyspnea, wheezes for 3 days more then usual. Got blood work and saw [facility] clinic today. Sent to the ER for abnormal labs and dyspnea. Has chronic dizziness, like light-headed. No headaches, chest pain, abd pain, nausea, vomit , diarrhea. No weakness. Has had similar in the past and was copd. Past Medical History Reviewed: Historical Data, Nursing Documentation, Vital Signs Vital Signs: Last Vital Signs Temp 98.5 F 09/02/17 17:28 Pulse 75 09/02/17 17:28 Resp 19 09/02/17 17:44 BP 102/54 L 09/02/17 17:28 Pulse Ox 97 09/02/17 17:55 - Medical History PMH: Anemia, Anxiety, Arthritis, Asthma, CAD, CHF, COPD, Depression, Diabetes, Emphysema, Fibromyalgia, Fractures, GERD, HTN, Hypercholesterolemia, Hypothyroidism, Migraine, Parkinson's Disease, Pneumonia, Rheumatoid Arthritis, Sleep Apnea Denies: HIV, Chronic Kidney Disease - Surgical History Surgical History: Cholecystectomy, Endoscopy, Tonsillectomy - Family History Family History: States: Unknown Family Hx - Living Arrangements Living Arrangements: With Family - Home Medications Home Medications: Ambulatory Orders Medication Instructions Recorded Aspirin [Ecotrin] 81 mg PO DAILY 03/05/17 Dexamethasone [Decadron] 20 mg PO ASDIR 03/05/17 Enalapril Maleate [Vasotec] 2.5 mg PO DAILY 03/05/17 Furosemide [Lasix] 20 mg PO Q48H 03/05/17 Riociguat [Adempas] 2 mg PO TID 03/05/17 busPIRone [Buspar] 10 mg PO Q12H 03/05/17 clonazePAM [Klonopin] 0.5 mg PO DAILY PRN 03/05/17 metFORMIN [glucOPHAGE] 500 mg PO BID 03/05/17 ARIPiprazole [Abilify] 10 mg PO HS 05/11/17 Hydrocortisone [Cortef] 10 mg PO HS 05/11/17 Omeprazole 20 mg PO DAILY 05/11/17 Calcium Carbonate/Vitamin D3 1 each PO BID #60 tablet 08/29/17 [Calcium 600 + Vit D Tablet] Insulin Detemir [Levemir] 12 units SC HS vial 08/29/17 Insulin Glargine, Recombina 12 unit SC HS #1 unit 08/29/17 [Lantus] Insulin Lispro [humALOG] 4 unit SC TID #1 ml 08/29/17 Levothyroxine [Synthroid] 25 mcg PO DAILY@0630 #30 tab 08/29/17 Magnesium Oxide [Mag-Ox] 400 mg PO DAILY #30 tab 08/29/17 Metoprolol Tartrate [Lopressor] 25 mg PO Q12 #30 tab 08/29/17 - Allergies Allergies/Adverse Reactions: Allergies Allergy/AdvReac Type Severity Reaction Status Date / Time codeine AdvReac syncope, Verified 09/02/17 17:27 diaphoresis Review of Systems ROS Statement: Except As Marked, All Systems Reviewed And Found Negative Respiratory: Positive for: Shortness of Breath Physical Exam - Reviewed Nursing Documentation Reviewed: Yes Vital Signs Reviewed: Yes - Physical Exam Appears: Positive for: Non-toxic, No Acute Distress Head Exam: Positive for: ATRAUMATIC, NORMAL INSPECTION, NORMOCEPHALIC Skin: Positive for: Normal Color, Warm, DRY Eye Exam: Positive for: EOMI, Normal appearance, PERRL ENT: Positive for: Normal ENT Inspection Neck: Positive for: Normal, Painless ROM Cardiovascular/Chest: Positive for: Regular Rate, Rhythm Respiratory: Positive for: Decreased Breath Sounds, Wheezing (mild b/l expiratory) Gastrointestinal/Abdominal: Positive for: Normal Exam, Soft. Negative for: Tenderness Back: Positive for: Normal Inspection. Negative for: L CVA Tenderness, R CVA Tenderness Extremity: Positive for: Normal ROM. Negative for: Tenderness, Pedal Edema Neurologic/Psych: Positive for: Alert, wire galvanizer II-XII, Oriented. Negative for: Motor/Sensory Deficits, Facial Droop - Laboratory Results Result Diagrams: 09/02/17 18:20 09/02/17 18:20 Interpretation Of Abn Labs: 0.9 mag - ECG O2 Sat by Pulse Oximetry: 97 Pulse Ox Interpretation: Normal - Radiology X-Ray: Read By Radiologist X-Ray Interpretation: No Acute Disease - Progress ED Course And Treament: 1913: Stable. Spoke with [facility] resident. Will admit tele. obs. Disposition - Clinical Impression Clinical Impression: COPD exacerbation, Hypomagnesemia - Patient ED Disposition Is Patient to be Admitted: Yes Counseled Patient/Family Regarding: Studies Performed, Diagnosis - Disposition Disposition Time: 19:13 Condition: FAIR - Pt Status Changed To: Hospital Disposition Of: Observation - POA Present On Arrival: None
[2017-09-02] MEDS ORDERED: Magnesium Sulfate 2 gm/50 ml 2 GM/50 ML BAG IVPB ONE (17:58)
[2017-09-02] MEDS ORDERED: Albuterol-Ipratrop 3 mg / 0.5 (3 ml) UD ONE (18:01)
[2017-09-02 18:36] LABS: BASO # 0.1 K/uL (0.0-0.2); BASO % 0.7 % (0.0-2.0); EOS # 0.1 K/uL (0.0-0.7); EOS % 0.8 % (0.0-4.0); HEMOGLOBIN 10.2 g/dL (12.0-16.0); LYMPH # 0.9 K/uL (1.0-4.3); LYMPH % 12.2 % (20.0-40.0); MEAN CELL VOLUME 88.8 fl (81.0-99.0); MEAN CORPUSCULAR HEMOGLOBIN 30.1 pg (27.0-31.0); MEAN CORPUSCULAR HGB CONC 33.9 g/dL (33.0-37.0); MEAN PLATELET VOLUME 8.7 fl (7.2-11.7); MONO # 0.6 K/uL (0.0-0.8); MONO % 7.6 % (0.0-10.0); NEUT # 5.9 K/uL (1.8-7.0); NEUT % 78.7 % (50.0-75.0); NRBC % 0.6 % (0.0-0.0); RBC 3.4 Mil/uL (3.80-5.20); RED CELL DISTRIBUTION WIDTH 17.3 % (11.5-14.5); WHITE BLOOD COUNT 7.5 K/uL (4.8-10.8)
[2017-09-02 18:50] LABS: ALB/GLOB RATIO 1.2 (1.0-2.1); ALT/SGPT 26 U/L (9-52); AST/SGOT 32 U/L (14-36); BLOOD UREA NITROGEN 19 mg/dl (7-17); CALCIUM 8.2 mg/dL (8.4-10.2); GFR AFRICAN-AMERICAN 59; GFR NON-AFRICAN AMERICAN 49
[2017-09-02 18:53] LABS: B-TYPE NATRIURETIC PEPTIDE 414 pg/ml (0-900)
[2017-09-02 19:00] LABS: PROTHROMBIN TIME 11.3 Seconds (9.8-13.1)
[2017-09-02 19:01] LABS: PARTIAL THROMBOPLASTIN TIME 28.5 Seconds (25.6-37.1)
[2017-09-02] MEDS ORDERED: Magnesium Sulfate 2 gm/50 ml 2 GM/50 ML BAG ONE (19:28)
[2017-09-02] MEDS ORDERED: Glucagon Recombinant 1 mg Inj IM PRN (19:37)
[2017-09-02] MEDS ORDERED: Dextrose 50% SYRINGE Inj (50 ml) IV PRN (19:37)
[2017-09-02] MEDS ORDERED: Albuterol 0.083% Inhal Sol (2.5 mg/3 mL) UD INH PRN (19:41)
[2017-09-02] MEDS ORDERED: Albuterol-Ipratrop 3 mg / 0.5 (3 ml) UD INH PRN (19:41)
--- NOTE | 2017-09-02 20:10 | CP.PCM.HP ---
<Asad Glez - Last Filed: 09/02/17 20:28> History of Present Illness - History of Present Illness History of Present Illness: CC: dyspnea HPI: 71 y/o woman w/ pmh of Multiple Myeloma, hx of multiple fractures (recent left hip fracture), IDDM type 2, HTN, Pulm HTN, COPD on home oxygen sent from clinic with complaint of persistent dyspnea. Patient recently discharged 2017 and went to follow up appointment where she was also found to have very low magnesium (0.9 mg/dL). Patient reprots that she has not felt any better than when she was in the hospital. Patient reports she is adherent to her medications. Patient reports some episodes of non-bloody diarrhea. Patient denies headaches, chest pain, abdominal pain, nausea, vomiting, dysuria, or fever. ED course: - vitals: 98.5 F, 75 bpm, 102/54 mm Hg, resp 19, O2 97% NC 2L - EKG: NSR, prolonged QT, QTC 511 m, inverted T waves in leads - - CXR: stable compared to last on 08/19/2017 - CBC: 7.5>10.2/30.2<244 - CMP: 127/4.5, 91/22, 19/1.1, glucose 126, AST 32, ALT 26, alk phos 64 - M.9 - phos: 4.6 - troponin <0.0120 - pro-BNP: 414 - PT: 11.3 - INR: 1.0 - aPTT: 28.5 - f/u ABG - given duonebs x2, mag sulfate 2 gm IV, solu-medrol 125 mg IV, IVF NS 500 mL @ 100 mL/hr PMD: Dr. Neumann Car Checker: Dr. Cisneros PMH: Multiple Myeloma, hx of multiple fractures (recent left hip fracture), IDDM type 2, HTN, Pulm HTN, COPD on home oxygen and CPAP, hx of PE s/p IVC filter in 2014, GERD, Depression Medications: see med list PSH: IVC filter, Cholecystectomy, tonsillectomy Fam: noncontributory SOC: denies tobacco/Etoh or drugs Present on Admission - Present on Admission Any Indicators Present on Admission: Yes History of DVT/PE: No History of Uncontrolled Diabetes: Yes Urinary Catheter: No Decubitus Ulcer Present: Yes Decubitus Ulcer Location: dime size Left buttock Decubitus Ulcer Stage: II Review of Systems - Review of Systems All systems: reviewed and no additional remarkable complaints except - Constitutional Constitutional: absent: Chills, Fever, Headache - EENT Eyes: absent: Change in Vision - Cardiovascular Cardiovascular: absent: Chest Pain - Respiratory Respiratory: Cough, Dyspnea, Dyspnea on Exertion - Gastrointestinal Gastrointestinal: Diarrhea. absent: Abdominal Pain, Nausea, Vomiting - Genitourinary Genitourinary: absent: Dysuria - Integumentary Integumentary: absent: Rash Past Patient History - Infectious Disease Hx of Infectious Diseases: None - Tetanus Immunizations Tetanus Immunization: Unknown - Past Medical History & Family History Past Medical History?: Yes - Past Social History Smoking Status: Never Smoked - CARDIAC Hx Congestive Heart Failure: Yes Hx Hypercholesterolemia: Yes Hx Hypertension: Yes - PULMONARY Hx Asthma: Yes Hx Chronic Obstructive Pulmonary Disease (COPD): Yes Hx Emphysema: Yes Hx Pneumonia: Yes Hx Sleep Apnea: Yes - NEUROLOGICAL Hx Migraine: Yes Hx Parkinson's Disease: Yes - HEENT Hx Deafness: Yes - RENAL Hx Chronic Kidney Disease: No - ENDOCRINE/METABOLIC Hx Hypothyroidism: Yes - HEMATOLOGICAL/ONCOLOGICAL Hx Anemia: Yes Hx Human Immunodeficiency Virus (HIV): No - INTEGUMENTARY Hx Dermatological Problems: No - MUSCULOSKELETAL/RHEUMATOLOGICAL Hx Arthritis: Yes Hx Fractures: Yes Hx Rheumatoid Arthritis: Yes - GASTROINTESTINAL Hx Gastrointestinal Disorders: No - GENITOURINARY/GYNECOLOGICAL Hx Genitourinary Disorders: Yes - PSYCHIATRIC Hx Anxiety: Yes Hx Depression: Yes - SURGICAL HISTORY Hx Cholecystectomy: Yes Hx Tonsillectomy: Yes - ANESTHESIA Hx Anesthesia: Yes Hx Anesthesia Reactions: Yes (Resp. Distress) Meds Allergies/Adverse Reactions: Allergies Allergy/AdvReac Type Severity Reaction Status Date / Time codeine AdvReac syncope, Verified 09/02/17 17:27 diaphoresis Physical Exam - Constitutional Appears: Non-toxic, No Acute Distress - Head Exam Head Exam: ATRAUMATIC, NORMAL INSPECTION, NORMOCEPHALIC - Eye Exam Eye Exam: Normal appearance - ENT Exam ENT Exam: Mucous Membranes Moist - Neck Exam Neck exam: Positive for: Full Rom. Negative for: Tenderness - Respiratory Exam Respiratory Exam: Decreased Breath Sounds, Rhonchi, Wheezes. absent: Accessory Muscle Use, Rales, Respiratory Distress - Cardiovascular Exam Cardiovascular Exam: REGULAR RHYTHM. absent: Tachycardia - GI/Abdominal Exam GI & Abdominal Exam: Normal Bowel Sounds, Soft. absent: Distended, Tenderness - Extremities Exam Extremities exam: Negative for: calf tenderness - Neurological Exam Neurological exam: Alert, CN II-XII Intact, Oriented x3 - Skin Skin Exam: Dry, Intact, Normal Color, Warm Results - Vital Signs Recent Vital Signs: Last Vital Signs Temp 98.5 F 09/02/17 17:28 Pulse 75 09/02/17 17:28 Resp 19 09/02/17 17:44 BP 102/54 L 09/02/17 17:28 Pulse Ox 97 09/02/17 19:14 - Labs Result Diagrams: 09/02/17 18:20 09/02/17 18:20 Labs: Laboratory Results - last 24 hr 09/02/17 09/02/17 09/02/17 17:41 18:20 18:20 WBC 7.5 RBC 3.40 L Hgb 10.2 L Hct 30.2 L MCV 88.8 MCH 30.1 MCHC 33.9 RDW 17.3 H Plt Count 244 MPV 8.7 Neut % (Auto) 78.7 H Lymph % (Auto) 12.2 L [place] % (Auto) 7.6 Eos % (Auto) 0.8 Baso % (Auto) 0.7 Neut # (Auto) 5.9 Lymph # (Auto) 0.9 L [place] # (Auto) 0.6 Eos # (Auto) 0.1 Baso # (Auto) 0.1 PT INR APTT Sodium 127 L Potassium 4.5 Chloride 91 L Carbon Dioxide 22 Anion Gap 19 BUN 19 H Creatinine 1.1 Est GFR ( Amer) 59 Est GFR (Non-Af Amer) 49 POC Glucose (mg/dL) 139 H Random Glucose 126 H Calcium 8.2 L Phosphorus 4.6 H Magnesium 0.9 L* Total Bilirubin 0.7 AST 32 ALT 26 Alkaline Phosphatase 64 Troponin I < 0.0120 NT-Pro-B Natriuret Pep 414 Total Protein 7.3 Albumin 4.0 Globulin 3.3 Albumin/Globulin Ratio 1.2 09/02/17 18:20 WBC RBC Hgb Hct MCV MCH MCHC RDW Plt Count MPV Neut % (Auto) Lymph % (Auto) [place] % (Auto) Eos % (Auto) Baso % (Auto) Neut # (Auto) Lymph # (Auto) [place] # (Auto) Eos # (Auto) Baso # (Auto) PT 11.3 INR 1.0 APTT 28.5 Sodium Potassium Chloride Carbon Dioxide Anion Gap BUN Creatinine Est GFR ( Amer) Est GFR (Non-Af Amer) POC Glucose (mg/dL) Random Glucose Calcium Phosphorus Magnesium Total Bilirubin AST ALT Alkaline Phosphatase Troponin I NT-Pro-B Natriuret Pep Total Protein Albumin Globulin Albumin/Globulin Ratio Assessment & Plan - Assessment and Plan (Free Text) Assessment: 71 y/o woman w/ pmh of Multiple Myeloma, hx of multiple fractures (recent left hip fracture), IDDM type 2, HTN, Pulm HTN, COPD on home oxygen sent from clinic with complaint of persistent dyspnea Plan: Dyspnea - persistent since discharge - sent from clinic - vitals: 98.5 F, 75 bpm, 102/54 mm Hg, resp 19, O2 97% NC 2L - EKG: NSR, prolonged QT, QTC 511 m, inverted T waves in leads - - CXR: stable compared to last on 08/19/2017 - f/u ABG - given duonebs x2, solu-medrol 125 mg IV, IVF NS 500 mL @ 100 mL/hr - duonebs Q6h fátima - albuterol Q4h prn - monitor for acute changes - admit to [facility] Hypomagnesia - CBC: 7.5>10.2/30.2<244 - CMP: 127/4.5, 91/22, 19/1.1, glucose 126, AST 32, ALT 26, alk phos 64 - M.9 - phos: 4.6 - troponin <0.0120 - pro-BNP: 414 - EKG: NSR, prolonged QT, QTC 511 m, inverted T waves in leads - - given mag sulfate 2 gm IV - f/u EKG - f/u CBC, CMP, mag, phos HTN - chronic, controlled - held home medication due to hypotension on admission: Enalapril 2.5mg PO QD - continue with Aspirin 81 mg PO QD - monitor BP IDDM type 2 - chronic, controlled - continue home medications: Insulin Levemir 12 units SC HS, Insulin Lispro 4 units SC TID with meals, Metformin 500mg PO BID - hypoglycemia protocol in place Hypothyroidism - chronic, controlled - continue home medications: Levothyroxine 25 mcg PO QD Restless leg syndrome - chronic -continue home medications: Clonazepam 0.5 mg PO QD Depression - chronic, controlled - continue home medications: , Buspirone 10mg PO Q12, Aripiprazole 10mg PO QHS Multiple Myeloma - chronic - continue home medications: Dexamethasone 20mg once a week on mondays, Hydrocortisone 10mg PO QHS - patient follow regularly with heme/onc Dr. Vilchis Pressure ulcer - Stage II - 3 small dime sized pressure ulcers in L buttock Prophylactic measures - DVT: lovenox 40 mg SC daily <Nayeli Darby - Last Filed: 09/03/17 08:14> Results - Vital Signs Recent Vital Signs: Last Vital Signs Temp 97.7 F 09/03/17 05:19 Pulse 75 09/03/17 05:19 Resp 12 09/03/17 05:19 BP 105/64 09/03/17 05:19 Pulse Ox 99 09/03/17 05:19 - Labs Result Diagrams: 09/03/17 05:11 09/03/17 05:11 Labs: Laboratory Results - last 24 hr 09/02/17 09/02/17 09/02/17 17:41 18:20 18:20 WBC 7.5 RBC 3.40 L Hgb 10.2 L Hct 30.2 L MCV 88.8 MCH 30.1 MCHC 33.9 RDW 17.3 H Plt Count 244 MPV 8.7 Neut % (Auto) 78.7 H Lymph % (Auto) 12.2 L [place] % (Auto) 7.6 Eos % (Auto) 0.8 Baso % (Auto) 0.7 Neut # (Auto) 5.9 Lymph # (Auto) 0.9 L [place] # (Auto) 0.6 Eos # (Auto) 0.1 Baso # (Auto) 0.1 PT INR APTT Sodium 127 L Potassium 4.5 Chloride 91 L Carbon Dioxide 22 Anion Gap 19 BUN 19 H Creatinine 1.1 Est GFR ( Amer) 59 Est GFR (Non-Af Amer) 49 POC Glucose (mg/dL) 139 H Random Glucose 126 H Calcium 8.2 L Phosphorus 4.6 H Magnesium 0.9 L* Total Bilirubin 0.7 AST 32 ALT 26 Alkaline Phosphatase 64 Troponin I < 0.0120 NT-Pro-B Natriuret Pep 414 Total Protein 7.3 Albumin 4.0 Globulin 3.3 Albumin/Globulin Ratio 1.2 09/02/17 09/02/17 09/03/17 18:20 21:19 05:11 WBC 8.9 RBC 3.30 L Hgb 9.8 L Hct 29.0 L MCV 88.1 MCH 29.9 MCHC 33.9 RDW 17.4 H Plt Count 234 MPV 8.9 Neut % (Auto) 94.6 H Lymph % (Auto) 4.1 L [place] % (Auto) 1.1 Eos % (Auto) 0.0 Baso % (Auto) 0.2 Neut # (Auto) 8.4 H Lymph # (Auto) 0.4 L [place] # (Auto) 0.1 Eos # (Auto) 0.0 Baso # (Auto) 0.0 PT 11.3 INR 1.0 APTT 28.5 Sodium Potassium Chloride Carbon Dioxide Anion Gap BUN Creatinine Est GFR ( Amer) Est GFR (Non-Af Amer) POC Glucose (mg/dL) 264 H Random Glucose Calcium Phosphorus Magnesium Total Bilirubin AST ALT Alkaline Phosphatase Troponin I NT-Pro-B Natriuret Pep Total Protein Albumin Globulin Albumin/Globulin Ratio 09/03/17 05:11 WBC RBC Hgb Hct MCV MCH MCHC RDW Plt Count MPV Neut % (Auto) Lymph % (Auto) [place] % (Auto) Eos % (Auto) Baso % (Auto) Neut # (Auto) Lymph # (Auto) [place] # (Auto) Eos # (Auto) Baso # (Auto) PT INR APTT Sodium 126 L Potassium 4.3 Chloride 89 L Carbon Dioxide 23 Anion Gap 18 BUN 19 H Creatinine 1.2 Est GFR ( Amer) 54 Est GFR (Non-Af Amer) 44 POC Glucose (mg/dL) Random Glucose 246 H Calcium 8.1 L Phosphorus 4.4 Magnesium 1.6 Total Bilirubin 0.4 AST 20 ALT 26 Alkaline Phosphatase 72 Troponin I NT-Pro-B Natriuret Pep Total Protein 6.5 Albumin 3.8 Globulin 2.7 Albumin/Globulin Ratio 1.4 Attending/Attestation - Attestation I have personally seen and examined this patient.: Yes I have fully participated in the care of the patient.: Yes I have reviewed all pertinent clinical information: Yes
[2017-09-02] MEDS ORDERED: Insulin Detemir 100 Units/ml Inj SC SCH (22:00)
[2017-09-02] MEDS: Insulin Lispro (humaLOG) 100 Units/ml Inj SC SCH (22:30)
[2017-09-03 05:32] LABS: BASO % 0.2 % (0.0-2.0); HEMOGLOBIN 9.8 g/dL (12.0-16.0); LYMPH # 0.4 K/uL (1.0-4.3); LYMPH % 4.1 % (20.0-40.0); MEAN CELL VOLUME 88.1 fl (81.0-99.0); MEAN CORPUSCULAR HEMOGLOBIN 29.9 pg (27.0-31.0); MEAN CORPUSCULAR HGB CONC 33.9 g/dL (33.0-37.0); MEAN PLATELET VOLUME 8.9 fl (7.2-11.7); MONO # 0.1 K/uL (0.0-0.8); MONO % 1.1 % (0.0-10.0); NEUT # 8.4 K/uL (1.8-7.0); NEUT % 94.6 % (50.0-75.0); NRBC % 0.2 % (0.0-0.0); PLATELET COUNT 234 K/uL (130-400); RED CELL DISTRIBUTION WIDTH 17.4 % (11.5-14.5); WHITE BLOOD COUNT 8.9 K/uL (4.8-10.8)
[2017-09-03] MEDS: Levothyroxine 25 MCG TAB PO SCH (05:51)
[2017-09-03 06:03] LABS: ALB/GLOB RATIO 1.4 (1.0-2.1); ALBUMIN 3.8 g/dL (3.5-5.0); CALCIUM 8.1 mg/dL (8.4-10.2)
--- NOTE | 2017-09-03 07:24 | RAD ---
HISTORY: dyspnea COMPARISON: Frontal chest radiograph 08/19/2017. FINDINGS: LUNGS: No acute infiltrate appreciated bilaterally with right hemidiaphragm elevation reiterated as well as cardiomegaly. Mild pulmonary vascular congestion is identified though improved in the interval. PLEURA: No significant pleural effusion identified, no pneumothorax apparent. CARDIOVASCULAR: Normal. OSSEOUS STRUCTURES: No significant abnormalities. VISUALIZED UPPER ABDOMEN: Normal. OTHER FINDINGS: None. IMPRESSION: Diminished pulmonary vascular congestion. Cardiomegaly stable with right hemidiaphragm again evident but no acute airspace disease appreciable.
[2017-09-03] MEDS ORDERED: Magnesium Sulfate 2 gm/50 ml 2 GM/50 ML BAG IVPB ONE (08:54)
--- NOTE | 2017-09-03 08:59 | CP.PCM.PN ---
<Sapphire Salcedo - Last Filed: 09/03/17 15:41> Subjective - Date & Time of Evaluation Date of Evaluation: 09/03/17 Time of Evaluation: 08:59 - Subjective Subjective: No acute overnight events. Pt is AAOx3. States that she went to follow up post d /c but was found that her levels were off. Denies chest pain, dyspnea, n/v/d/c, chills, fevers. Objective - Vital Signs/Intake and Output Vital Signs (last 24 hours): Temp Pulse Resp BP Pulse Ox 97.7 F 101 H 20 92/54 L 95 09/03/17 08:32 09/03/17 08:32 09/03/17 08:32 09/03/17 08:32 09/03/17 08:32 - Medications Medications: Current Medications Albuterol Sulfate (Albuterol 0.083% Inhal Jaclyn (2.5 Mg/3 Ml) Ud) 2.5 mg INH RQ4 PRN PRN Reason: Shortness of Breath Albuterol/Ipratropium (Duoneb 3 Mg/0.5 Mg (3 Ml) Ud) 3 ml INH RQ6 PRN PRN Reason: Shortness of Breath Aripiprazole (Abilify) 10 mg PO HS [facility] Last Admin: 09/02/17 22:29 Dose: 10 mg Aspirin (Ecotrin) 81 mg PO DAILY [facility] Buspirone HCl (Buspar) 10 mg PO Q12H [facility] Last Admin: 09/02/17 21:02 Dose: 10 mg Calcium/Vitamin D (Oyster Shell Calcium/Vitamin D 500 Mg-200 Iu) 1 tab PO BID [facility] Clonazepam (Klonopin) 0.5 mg PO DAILY PRN PRN Reason: Anxiety Dexamethasone (Decadron) 20 mg PO DAILY [facility] Last Admin: 09/02/17 23:56 Dose: 20 mg Dextrose (Dextrose 50% Inj) 0 ml IV STAT PRN; Protocol PRN Reason: Hypoglycemia Protocol Dextrose (Glutose 15) 0 gm PO ONCE PRN; Protocol PRN Reason: Hypoglycemia Protocol Enalapril Maleate (Vasotec) 2.5 mg PO DAILY [facility] Enoxaparin Sodium (Lovenox) 40 mg SC DAILY [facility] PRN Reason: Protocol Furosemide (Lasix) 20 mg PO Q48H [facility] Last Admin: 09/02/17 20:30 Dose: 20 mg Glucagon (Glucagen Diagnostic Kit) 0 mg IM STAT PRN; Protocol PRN Reason: Hypoglycemia Protocol Hydrocortisone (Cortef) 10 mg PO HS [facility] Last Admin: 09/02/17 22:29 Dose: 10 mg Magnesium Sulfate 2 gm/ Sodium (Chloride) 104 mls @ 104 mls/hr IVPB ONCE ONE PRN Reason: 2 GM/HR Stop: 09/03/17 09:53 Insulin Detemir (Levemir) 12 units SC HS [facility] Last Admin: 09/02/17 22:30 Dose: 12 units Insulin Human Lispro (Humalog) 0 units SC ACHS [facility] PRN Reason: Protocol Last Admin: 09/02/17 22:30 Dose: Not Given Insulin Human Lispro (Humalog) 4 units SC TID [facility] Levothyroxine Sodium (Synthroid) 25 mcg PO DAILY@0630 [facility] Last Admin: 09/03/17 05:51 Dose: 25 mcg Magnesium Oxide (Mag-Ox) 400 mg PO DAILY [facility] Metformin HCl (Glucophage) 500 mg PO BIDWM [facility] - Labs Labs: 09/03/17 05:11 09/03/17 05:11 PT 11.3 Seconds (9.8-13.1) 09/02/17 18:20 INR 1.0 (0.9-1.2) 09/02/17 18:20 APTT 28.5 Seconds (25.6-37.1) 09/02/17 18:20 - Constitutional Appears: No Acute Distress, Other (breathing in RA) - Head Exam Head Exam: NORMAL INSPECTION - Eye Exam Eye Exam: EOMI, Normal appearance - ENT Exam ENT Exam: Mucous Membranes Moist - Respiratory Exam Respiratory Exam: Wheezes (mild wheezing b/l), NORMAL BREATHING PATTERN - Cardiovascular Exam Cardiovascular Exam: REGULAR RHYTHM, +S1, +S2 - GI/Abdominal Exam GI & Abdominal Exam: Soft, Normal Bowel Sounds. absent: Tenderness - Extremities Exam Extremities Exam: Normal Inspection. absent: Calf Tenderness, Pedal Edema Additional comments: baseline tremor in the upper and lower extremities. Tremor resolves with action. - Back Exam Back Exam: NORMAL INSPECTION - Neurological Exam Neurological Exam: Alert, Awake, Oriented x3 - Psychiatric Exam Psychiatric exam: Normal Affect, Normal Mood Assessment and Plan - Assessment and Plan (Free Text) Assessment: Assessment/Plan: 71 YO female with multiple co-morbidities (PMHx including Multiple Myeloma, hx of multiple fractures (recent left hip fracture), IDDM type 2, HTN, Pulm HTN, COPD on home oxygen and CPAP, hx of PE s/p IVC filter in 2014) is admitted for hypomagnesemia and COPD exacerbation. Hypomagnesemia -likely medication induced; dexamethasone, hydrocortisone -s/p 2gm Mg sulfate IV in ED -1x dose of Mg Sulfate 2gm -EKG: NSR, prolonged QT, QTC 511 m, inverted T waves in leads - -cont Ma Oxide PO 400mg, will likely need to be increased prior to d/c -Endocrine consulted; will follow up recs -follow up labs COPD exacerbation -acute exacerbation of chronic condition -improving -s/p duonebs x2, solu-medrol 125 mg IV -c/w Duoneb INH, albuterol -continue home regimen: 2L supplemental O2 via nasal cannula during the day, CPAP at night Hyponatremia -acute, Na 126 -s/p 500ml NS in ED -Fluid restriction, 1L -follow up AM labs Prolong QTc -acute on chronic, as noted on last admission -likely 2/2 to medication and electrolyte imbalance -QTc 457 on 08/25 -EKG on admission QTc 511, repeat EKG QTc 520 -replace electrolytes -repeat EKG tomorrow IDDM type 2 -chronic, controlled -continue home medications: c/w, Metformin 500mg PO BID -hypoglycemia protocol in place -Endocrine consulted; Levemir 16 Units HS and Lispro 8 units TID HTN -chronic, controlled -c/w Enalapril 2.5mg PO QD and Aspirin 81 mg PO QD Hypothyroidism -chronic, controlled -c/w Levothyroxine 25mg Restless leg syndrome -chronic -c/w Clonazepam 0.5 mg PO QD Depression -chronic, controlled -c/w Buspirone 10mg PO Q12, Aripiprazole 5mg PO QHS Multiple Myeloma -chronic -continue home medications: Dexamethasone 20mg once a week on mondays, Hydrocortisone 10mg PO QHS -outpatient follow up with heme/onc Dr. Vilchis Anemia -chronic, stable -likely secondary to multiple myeloma Morbid obesity -chronic -BMI 40.5 Pressure ulcer -Stage II -3 small dime sized pressure ulcers in L buttock -wound care on board Prophylactic measures -DVT: lovenox 40 mg SC daily <Nayeli Darby - Last Filed: 09/04/17 09:09> Objective - Vital Signs/Intake and Output Vital Signs (last 24 hours): Temp Pulse Resp BP Pulse Ox 98 F 93 H 20 123/58 L 98 09/04/17 08:00 09/04/17 08:00 09/04/17 08:00 09/04/17 08:00 09/04/17 08:00 - Medications Medications: Current Medications Albuterol Sulfate (Albuterol 0.083% Inhal Jaclyn (2.5 Mg/3 Ml) Ud) 2.5 mg INH RQ4 PRN PRN Reason: Shortness of Breath Albuterol/Ipratropium (Duoneb 3 Mg/0.5 Mg (3 Ml) Ud) 3 ml INH RQ6 PRN PRN Reason: Shortness of Breath Aripiprazole (Abilify) 5 mg PO HS [facility] Last Admin: 09/03/17 21:30 Dose: 5 mg Aspirin (Ecotrin) 81 mg PO DAILY [facility] Last Admin: 09/04/17 08:45 Dose: 81 mg Buspirone HCl (Buspar) 10 mg PO Q12H [facility] Last Admin: 09/04/17 08:44 Dose: 10 mg Calcium/Vitamin D (Oyster Shell Calcium/Vitamin D 500 Mg-200 Iu) 1 tab PO BID [facility] Last Admin: 09/04/17 08:45 Dose: 1 tab Clonazepam (Klonopin) 0.5 mg PO DAILY PRN PRN Reason: Anxiety Dexamethasone (Decadron) 20 mg PO QWK [facility] Dextrose (Dextrose 50% Inj) 0 ml IV STAT PRN; Protocol PRN Reason: Hypoglycemia Protocol Dextrose (Glutose 15) 0 gm PO ONCE PRN; Protocol PRN Reason: Hypoglycemia Protocol Enalapril Maleate (Vasotec) 2.5 mg PO DAILY [facility] Last Admin: 09/04/17 08:48 Dose: 2.5 mg Enoxaparin Sodium (Lovenox) 40 mg SC DAILY [facility] PRN Reason: Protocol Last Admin: 09/04/17 08:45 Dose: 40 mg Furosemide (Lasix) 20 mg PO Q48H [facility] Last Admin: 09/02/17 20:30 Dose: 20 mg Glucagon (Glucagen Diagnostic Kit) 0 mg IM STAT PRN; Protocol PRN Reason: Hypoglycemia Protocol Hydrocortisone (Cortef) 10 mg PO HS [facility] Last Admin: 09/03/17 21:29 Dose: 10 mg Insulin Detemir (Levemir) 30 units SC HS [facility] Insulin Human Lispro (Humalog) 0 units SC ACHS [facility] PRN Reason: Protocol Last Admin: 09/04/17 08:09 Dose: 4 units Insulin Human Lispro (Humalog) 14 units SC AC [facility] Levothyroxine Sodium (Synthroid) 25 mcg PO DAILY@0630 [facility] Last Admin: 09/04/17 05:44 Dose: 25 mcg Magnesium Oxide (Mag-Ox) 400 mg PO DAILY [facility] Last Admin: 09/04/17 08:44 Dose: 400 mg Metformin HCl (Glucophage) 500 mg PO BIDWM [facility] Last Admin: 09/04/17 08:44 Dose: 500 mg - Labs Labs: 09/03/17 05:11 09/04/17 05:30 PT 11.3 Seconds (9.8-13.1) 09/02/17 18:20 INR 1.0 (0.9-1.2) 09/02/17 18:20 APTT 28.5 Seconds (25.6-37.1) 09/02/17 18:20 Attending/Attestation - Attestation I have personally seen and examined this patient.: Yes I have fully participated in the care of the patient.: Yes I have reviewed all pertinent clinical information, including history, physical exam and plan: Yes Notes (Text): 09/04/17 09:08 Attending Note - ATTESTATION - Patient seen and examined. Case discussed with resident. Agree with finding and plan. Additional Iv MgS04 ordered. Await Endocrine consult.
[2017-09-03] MEDS ORDERED: VITAMIN D3 PO SCH (09:00)
[2017-09-03] MEDS ORDERED: CALCIUM CARBONATE PO SCH (09:00)
[2017-09-03] MEDS: Enoxaparin 40 mg Syringe SC SCH (09:51)
[2017-09-03] MEDS: Magnesium Oxide 400 mg Tab UD PO SCH (09:51)
[2017-09-03] MEDS: Calcium-Vit D 500 mg-200 Units Tab UD PO SCH ×2 (09:52→16:46)
[2017-09-03] MEDS: Insulin Lispro (humaLOG) 100 Units/ml Inj SC SCH ×7 (09:53→21:30)
--- NOTE | 2017-09-03 10:23 | CARD ---
APPROVED REPORT EKG Measurement Heart [id number] <Conclusion> Normal sinus rhythm T wave abnormality, consider anterior ischemia Prolonged QT Abnormal ECG
[2017-09-03 10:45] LABS: BANDS 5 % (0-2); LYMPHOCYTE 3 % (20-50); METAMYELOCYTE 2 % (0-0); MONOCYTE 7 % (0-10); NEUTROPHIL 83 % (42-75); TOTAL CELLS COUNTED 100
[2017-09-03 10:46] LABS: PLATELET ESTIMATE NORMAL (NORMAL)
[2017-09-03 10:47] LABS: ANISOCYTOSIS SLIGHT; HYPOCHROMIC SLIGHT; LARGE PLATELETS PRESENT; OVALOCYTES SLIGHT; TEARDROP CELLS SLIGHT
[2017-09-03] MEDS ORDERED: Insulin Detemir 100 Units/ml Inj SC SCH (22:00)
--- NOTE | 2017-09-04 03:54 | CON ---
DATE: 09/03/2017 ENDOCRINOLOGY CONSULTATION LOCATION: Room 401. HISTORY OF PRESENT ILLNESS: This is a 71-year-old female with known history of multiple myeloma with secondary adrenal insufficiency, currently on oral steroid replacement therapy, presenting here with progressive shortness of breath and has been evaluated to have acute exacerbation of COPD and concomitant hypomagnesemia and is now being referred for endocrine evaluation and management. PAST MEDICAL HISTORY: As mentioned above, history of previous admission for symptomatic hypocalcemia at that time lengthy evaluation was not parathyroid related, but most likely related to the recent chemotherapy given by her oncologist at that time with normalization of the calcium levels with IV and oral replacement thereof. History of multiple myeloma with subsequent secondary hypoadrenalism, currently on steroid replacement therapy as given. History of hypothyroidism, also on a low-dose levothyroxine replacement therapy as noted. She also has history of type 2 insulin-requiring diabetes, again secondary type of diabetes with the steroid replacement as given and has been on insulin therapy from the previous admission thereof. She was discharged on Levemir given as 12 units subcu at bedtime daily with Humalog taken as 4 units t.i.d. before meals as ordered. History of hypertension and dyslipidemia, history of chronic obstructive lung disease with previous admission for the same. FAMILY HISTORY: Positive for hypertension and diabetes. SOCIAL HISTORY: The patient has a supportive family. No known substance use. REVIEW OF SYSTEMS: As mentioned above. Admits to generalized body weakness with easy fatigability and tiredness and suboptimal energy level. Also admits to bifrontal headaches and episodic dizziness and lightheadedness. Her energy level has been suboptimal over the last few weeks prior to admission. No chest pains or palpitations, but admits to progressive shortness of breath initially on exertion and then at rest as noted. Her oral intake has been variable with nausea, dyspepsia and variable oral intake with habitual constipation. PHYSICAL EXAMINATION: GENERAL: This is an overweight female in no apparent distress. VITAL SIGNS: With a blood pressure of 140/80, pulse of 70 beats per minute and regular, temperature 98, respirations 20. Height is 4 feet 10 inches. Weight is 178 pounds. HEENT: Head normocephalic. Eyes anicteric with pink conjunctivae. Funduscopy is not possible at this time. Ears, nose and throat otherwise normal. NECK: Supple. Thyroid gland is normal in size. No carotid bruits or cervical adenopathy. CARDIOPULMONARY: Some adynamic precordium. S1, S2 are rapid and regular. LUNGS: Clear to auscultation. ABDOMEN: Flat, soft with positive bowel sounds. EXTREMITIES: No peripheral edema. Pulses are +2 bilaterally. LABORATORY DATA: Chemistry showed a BUN of 19, sodium 126, potassium 4.3, chloride 89, CO2 of 23, glucose 246 and creatinine 1.2. Her calcium level is 8.1 with albumin level of 3.8. Her glucose values have ranged from 261 to 362 mg/dL. ProBNP is 414. ASSESSMENT: This is a 71-year-old female with acute exacerbation of chronic obstructive pulmonary disease with persistent hypomagnesemia of multifactorial etiology with both renal and gastrointestinal losses contributing to the aforementioned. She has been on a recent diuretic usage as noted with episodic bouts of loose watery diarrhea also as noted. She also is clinically and biochemically euthyroid, on a very low-dose levothyroxine replacement therapy. She has significant history of multiple myeloma with secondary hypoadrenalism, currently on oral steroid replacement therapy as given, and the latest cortisol levels done with the previous admissions were actually optimal on this current dosing regimen as given. She also has uncontrolled type 2 insulin-requiring diabetes with recent glycemic fluctuations related to a subtherapeutic insulin regimen. Moreover, the use of steroids will contribute to the increased insulin resistance and further impaired glucose tolerance thereof. PLAN OF MANAGEMENT: We will modify her current insulin regimen and increase the Humalog to 8 units subcu t.i.d. for meals to start today as ordered. We will also increase the basal insulin with Levemir to be given as 16 units subcu at bedtime daily to start tonight. We will modify the coverage scale to obviate hypoglycemia and detailed orders have been given. We will re-order her current steroid replacement therapy and obtain a fasting serum cortisol level tomorrow morning and adjust her dose regimen as indicated. We will obtain serial chemistries and supplement accordingly as needed. We will follow with you. Irene Mann MD
[2017-09-04] MEDS: Levothyroxine 25 MCG TAB PO SCH (05:44)
[2017-09-04 06:38] LABS: ALB/GLOB RATIO 1.4 (1.0-2.1); ALBUMIN 3.7 g/dL (3.5-5.0); ALT/SGPT 21 U/L (9-52); AST/SGOT 21 U/L (14-36); BLOOD UREA NITROGEN 23 mg/dl (7-17); CALCIUM 8.9 mg/dL (8.4-10.2); GFR AFRICAN-AMERICAN > 60; GFR NON-AFRICAN AMERICAN > 60
[2017-09-04 06:45] LABS: T4 3.63 ug/dl (5.5-11.0)
--- NOTE | 2017-09-04 07:44 | CP.PCM.PN ---
<Brenda Byrne - Last Filed: 09/04/17 13:59> Subjective - Date & Time of Evaluation Date of Evaluation: 09/04/17 Time of Evaluation: 07:44 - Subjective Subjective: 71F seen and examined at bedside with attending. No acute overnight events. Pt reports feeling well, denies any GI problems to include denying any diarrhea as well as no SOB, chest pain. She denies any pain, but was reporting a mild lightheadedness when she stood up too quickly. Otherwise, no complaints. Objective - Vital Signs/Intake and Output Vital Signs (last 24 hours): Temp Pulse Resp BP Pulse Ox 36.1 C L 88 18 108/65 100 09/04/17 05:00 09/04/17 05:02 09/04/17 05:00 09/04/17 05:00 09/04/17 05:00 - Medications Medications: Current Medications Albuterol Sulfate (Albuterol 0.083% Inhal Jaclyn (2.5 Mg/3 Ml) Ud) 2.5 mg INH RQ4 PRN PRN Reason: Shortness of Breath Albuterol/Ipratropium (Duoneb 3 Mg/0.5 Mg (3 Ml) Ud) 3 ml INH RQ6 PRN PRN Reason: Shortness of Breath Aripiprazole (Abilify) 5 mg PO HS [facility] Last Admin: 09/03/17 21:30 Dose: 5 mg Aspirin (Ecotrin) 81 mg PO DAILY [facility] Last Admin: 09/03/17 09:50 Dose: 81 mg Buspirone HCl (Buspar) 10 mg PO Q12H [facility] Last Admin: 09/03/17 21:29 Dose: 10 mg Calcium/Vitamin D (Oyster Shell Calcium/Vitamin D 500 Mg-200 Iu) 1 tab PO BID [facility] Last Admin: 09/03/17 16:46 Dose: 1 tab Clonazepam (Klonopin) 0.5 mg PO DAILY PRN PRN Reason: Anxiety Dexamethasone (Decadron) 20 mg PO QWK [facility] Dextrose (Dextrose 50% Inj) 0 ml IV STAT PRN; Protocol PRN Reason: Hypoglycemia Protocol Dextrose (Glutose 15) 0 gm PO ONCE PRN; Protocol PRN Reason: Hypoglycemia Protocol Enalapril Maleate (Vasotec) 2.5 mg PO DAILY [facility] Last Admin: 06/29/18 09:52 Dose: Not Given Enoxaparin Sodium (Lovenox) 40 mg SC DAILY [facility] PRN Reason: Protocol Last Admin: 09/03/17 09:51 Dose: 40 mg Furosemide (Lasix) 20 mg PO Q48H [facility] Last Admin: 09/02/17 20:30 Dose: 20 mg Glucagon (Glucagen Diagnostic Kit) 0 mg IM STAT PRN; Protocol PRN Reason: Hypoglycemia Protocol Hydrocortisone (Cortef) 10 mg PO HS [facility] Last Admin: 09/03/17 21:29 Dose: 10 mg Insulin Detemir (Levemir) 16 units SC HS [facility] Last Admin: 09/03/17 22:00 Dose: 16 u Insulin Human Lispro (Humalog) 0 units SC ACHS [facility] PRN Reason: Protocol Last Admin: 09/03/17 21:30 Dose: Not Given Insulin Human Lispro (Humalog) 8 units SC TID [facility] Last Admin: 09/03/17 16:45 Dose: 8 units Levothyroxine Sodium (Synthroid) 25 mcg PO DAILY@0630 [facility] Last Admin: 09/04/17 05:44 Dose: 25 mcg Magnesium Oxide (Mag-Ox) 400 mg PO DAILY [facility] Last Admin: 09/03/17 09:51 Dose: 400 mg Metformin HCl (Glucophage) 500 mg PO BIDWM [facility] Last Admin: 09/03/17 16:44 Dose: 500 mg - Labs Labs: 09/03/17 05:11 09/04/17 05:30 PT 11.3 Seconds (9.8-13.1) 09/02/17 18:20 INR 1.0 (0.9-1.2) 09/02/17 18:20 APTT 28.5 Seconds (25.6-37.1) 09/02/17 18:20 - Constitutional Appears: Non-toxic, No Acute Distress - Head Exam Head Exam: ATRAUMATIC, NORMAL INSPECTION - Eye Exam Eye Exam: Normal appearance - ENT Exam ENT Exam: Mucous Membranes Moist - Respiratory Exam Respiratory Exam: Clear to Ausculation Bilateral, NORMAL BREATHING PATTERN ( Nasal cannula in place). absent: Rales, Rhonchi, Wheezes - Cardiovascular Exam Cardiovascular Exam: REGULAR RHYTHM - GI/Abdominal Exam GI & Abdominal Exam: Soft, Normal Bowel Sounds. absent: Tenderness - Extremities Exam Extremities Exam: Full ROM, Normal Capillary Refill, Normal Inspection. absent : Pedal Edema - Neurological Exam Neurological Exam: Alert, Awake, Oriented x3 - Psychiatric Exam Psychiatric exam: Normal Affect, Normal Mood - Skin Skin Exam: Dry, Warm Assessment and Plan - Assessment and Plan (Free Text) Assessment: 71F with multiple stable co-morbidities improving from an acute symptomatic hypomagnesemia resulting in prolonged QTc. Plan: Diet: MOD CHO, discontinued fluid restriction DVT Prophylaxis: Lovenox SC Labs in AM Hypomagnesemia: Improving, c/w PO medications, will monitor Prolonged QT: Improving, monitor Mg level/EKGs Hyponatremia: Improved on fluid restriction DM: asymptomatic, moderately controlled, f/u Endocrine recommendations, hypoglycemic bundle Endocrine Consult (Cam): Will follow recs for Mg/Ca/DM/Thyroid management Dispo: 09/05/17 if Mg stable <Nayeli Darby - Last Filed: 09/05/17 08:39> Objective - Vital Signs/Intake and Output Vital Signs (last 24 hours): Temp Pulse Resp BP Pulse Ox 97.9 F 66 20 105/57 L 100 09/05/17 08:00 09/05/17 08:00 09/05/17 08:00 09/05/17 08:00 09/05/17 08:00 - Medications Medications: Current Medications Albuterol Sulfate (Albuterol 0.083% Inhal Jaclyn (2.5 Mg/3 Ml) Ud) 2.5 mg INH RQ4 PRN PRN Reason: Shortness of Breath Albuterol/Ipratropium (Duoneb 3 Mg/0.5 Mg (3 Ml) Ud) 3 ml INH RQ6 PRN PRN Reason: Shortness of Breath Aripiprazole (Abilify) 5 mg PO HS [facility] Last Admin: 09/04/17 21:29 Dose: 5 mg Aspirin (Ecotrin) 81 mg PO DAILY [facility] Last Admin: 09/04/17 08:45 Dose: 81 mg Buspirone HCl (Buspar) 10 mg PO Q12H [facility] Last Admin: 09/04/17 20:18 Dose: 10 mg Calcium/Vitamin D (Oyster Shell Calcium/Vitamin D 500 Mg-200 Iu) 1 tab PO BID [facility] Last Admin: 09/04/17 16:34 Dose: 1 tab Clonazepam (Klonopin) 0.5 mg PO DAILY PRN PRN Reason: Anxiety Dexamethasone (Decadron) 20 mg PO QWK [facility] Dextrose (Dextrose 50% Inj) 0 ml IV STAT PRN; Protocol PRN Reason: Hypoglycemia Protocol Dextrose (Glutose 15) 0 gm PO ONCE PRN; Protocol PRN Reason: Hypoglycemia Protocol Enalapril Maleate (Vasotec) 2.5 mg PO DAILY [facility] Last Admin: 09/04/17 08:48 Dose: 2.5 mg Enoxaparin Sodium (Lovenox) 40 mg SC DAILY [facility] PRN Reason: Protocol Last Admin: 09/04/17 08:45 Dose: 40 mg Furosemide (Lasix) 20 mg PO Q48H [facility] Last Admin: 09/04/17 20:18 Dose: 20 mg Glucagon (Glucagen Diagnostic Kit) 0 mg IM STAT PRN; Protocol PRN Reason: Hypoglycemia Protocol Hydrocortisone (Cortef) 10 mg PO HS [facility] Last Admin: 09/04/17 21:28 Dose: 10 mg Insulin Detemir (Levemir) 30 units SC HS [facility] Last Admin: 09/04/17 21:29 Dose: 30 unit Insulin Human Lispro (Humalog) 0 units SC ACHS [facility] Last Admin: 09/04/17 23:00 Dose: Not Given Insulin Human Lispro (Humalog) 10 units SC AC [facility] Levothyroxine Sodium (Synthroid) 25 mcg PO DAILY@0630 [facility] Last Admin: 09/05/17 05:40 Dose: 25 mcg Magnesium Oxide (Mag-Ox) 400 mg PO DAILY [facility] Last Admin: 09/04/17 08:44 Dose: 400 mg Metformin HCl (Glucophage) 500 mg PO BIDWM [facility] Last Admin: 09/04/17 16:34 Dose: 500 mg - Labs Labs: 09/05/17 06:20 09/05/17 06:20 PT 11.3 Seconds (9.8-13.1) 09/02/17 18:20 INR 1.0 (0.9-1.2) 09/02/17 18:20 APTT 28.5 Seconds (25.6-37.1) 09/02/17 18:20 Attending/Attestation - Attestation I have personally seen and examined this patient.: Yes I have fully participated in the care of the patient.: Yes I have reviewed all pertinent clinical information, including history, physical exam and plan: Yes Notes (Text): 09/05/17 08:38 Dr Cam Endocrine has seen on consult. Further testing ordered. Patient asyptomatic today. Possible discharge 09/05/17.
[2017-09-04] MEDS: Insulin Lispro (humaLOG) 100 Units/ml Inj SC SCH ×7 (08:09→23:00)
[2017-09-04] MEDS: Magnesium Oxide 400 mg Tab UD PO SCH (08:44)
[2017-09-04] MEDS: Enoxaparin 40 mg Syringe SC SCH (08:45)
[2017-09-04] MEDS: Calcium-Vit D 500 mg-200 Units Tab UD PO SCH ×2 (08:45→16:34)
--- NOTE | 2017-09-04 12:54 | CARD ---
APPROVED REPORT EKG Measurement Heart [id number] [place] [id number] <Conclusion> Normal sinus rhythm Possible Left atrial enlargement T wave abnormality, consider anterior ischemia Prolonged QT Abnormal ECG
--- NOTE | 2017-09-04 13:03 | CARD ---
APPROVED REPORT EKG Measurement Heart [id number] <Conclusion> Normal sinus rhythm Possible Left atrial enlargement Low voltage QRS Nonspecific T wave abnormality Abnormal ECG
--- NOTE | 2017-09-04 13:38 | PN ---
DATE: 09/04/2017 ENDOCRINOLOGY FOLLOWUP NOTE. LOCATION: Room 401. This is a 71-year-old male female with recent acute exacerbation of COPD with progressive shortness of breath and is now undergoing medical management as ordered. She also has uncontrolled glycemic fluctuations as noted overnight with glucose levels ranging from 218 to 296 mg/dL. Her chemistries today showed a BUN of 23, sodium 132, potassium 5, chloride 92, CO2 of 28, glucose 319, and creatinine 0.9. Her thyroid studies showed a T4 of 3.63 with a TSH of 0.95. Serum cortisol level is pending at this time. Her A1c is also pending as ordered. Her calcium level now is 8.9 with an albumin level of 3.7. So at this time, we will modify once again her basal and bolus insulin regimen and increase the Humalog to 14 units subcu t.i.d. before meals to start today as ordered. We will also increase the basal insulin with Levemir to be given as 30 units subcu at bedtime daily to start tonight. We will titrate incremental as indicated to optimize metabolic control. We will modify the coverage scale to a very low dose algorithm to obviate hypoglycemia and detailed orders have been given. We will obtain serial chemistries and supplement accordingly needed. We are also awaiting the serum cortisol level to adjust her oral steroid replacement as indicated. We will follow up with you. Irene Mann MD
[2017-09-04] MEDS ORDERED: Insulin Detemir 100 Units/ml Inj SC SCH (22:00)
[2017-09-05] MEDS: Levothyroxine 25 MCG TAB PO SCH (05:40)
[2017-09-05 07:10] LABS: HEMOGLOBIN 9.4 g/dL (12.0-16.0); MEAN CELL VOLUME 90.2 fl (81.0-99.0); MEAN CORPUSCULAR HEMOGLOBIN 29.7 pg (27.0-31.0); MEAN CORPUSCULAR HGB CONC 32.9 g/dL (33.0-37.0); RBC 3.18 Mil/uL (3.80-5.20); WHITE BLOOD COUNT 12.1 K/uL (4.8-10.8)
[2017-09-05] MEDS: Calcium-Vit D 500 mg-200 Units Tab UD PO SCH ×2 (08:35→17:07)
[2017-09-05] MEDS: Insulin Lispro (humaLOG) 100 Units/ml Inj SC SCH ×7 (08:36→21:32)
[2017-09-05] MEDS: Magnesium Oxide 400 mg Tab UD PO SCH ×3 (08:38→17:07)
[2017-09-05] MEDS: Enoxaparin 40 mg Syringe SC SCH (08:38)
--- NOTE | 2017-09-05 09:10 | CP.PCM.PN ---
<Alana Rubin - Last Filed: 09/05/17 11:26> Subjective - Date & Time of Evaluation Date of Evaluation: 09/05/17 Time of Evaluation: 09:08 - Subjective Subjective: 71 y/o f admitted on 09/02 w/ dyspnea and hypomagnesemia. Seen and examined at bedside this morning. She reports feeling well; denies pain. No acute overnight events. Objective - Vital Signs/Intake and Output Vital Signs (last 24 hours): Temp Pulse Resp BP Pulse Ox 97.9 F 66 20 105/57 L 100 09/05/17 08:00 09/05/17 08:00 09/05/17 08:00 09/05/17 08:00 09/05/17 08:00 - Medications Medications: Current Medications Albuterol Sulfate (Albuterol 0.083% Inhal Jaclyn (2.5 Mg/3 Ml) Ud) 2.5 mg INH RQ4 PRN PRN Reason: Shortness of Breath Albuterol/Ipratropium (Duoneb 3 Mg/0.5 Mg (3 Ml) Ud) 3 ml INH RQ6 PRN PRN Reason: Shortness of Breath Aripiprazole (Abilify) 5 mg PO HS COUNT [facility]CLUDES [facility] Last Admin: 09/04/17 21:29 Dose: 5 mg Aspirin (Ecotrin) 81 mg PO DAILY COUNT [facility]CLUDES [facility] Last Admin: 09/05/17 08:35 Dose: 81 mg Buspirone HCl (Buspar) 10 mg PO Q12H COUNT [facility]CLUDES [facility] Last Admin: 09/05/17 08:35 Dose: 10 mg Calcium/Vitamin D (Oyster Shell Calcium/Vitamin D 500 Mg-200 Iu) 1 tab PO BID COUNT INCLUDES [facility] Last Admin: 09/05/17 08:35 Dose: 1 tab Clonazepam (Klonopin) 0.5 mg PO DAILY PRN PRN Reason: Anxiety Dexamethasone (Decadron) 20 mg PO QWK COUNT INCLUDES [facility] Dextrose (Dextrose 50% Inj) 0 ml IV STAT PRN; Protocol PRN Reason: Hypoglycemia Protocol Dextrose (Glutose 15) 0 gm PO ONCE PRN; Protocol PRN Reason: Hypoglycemia Protocol Enalapril Maleate (Vasotec) 2.5 mg PO DAILY COUNT [facility]CLUDES [facility] Last Admin: 09/05/17 08:38 Dose: 2.5 mg Enoxaparin Sodium (Lovenox) 40 mg SC DAILY [facility] PRN Reason: Protocol Last Admin: 09/05/17 08:38 Dose: 40 mg Furosemide (Lasix) 20 mg PO Q48H COUNT [facility]CLUDES [facility] Last Admin: 09/04/17 20:18 Dose: 20 mg Glucagon (Glucagen Diagnostic Kit) 0 mg IM STAT PRN; Protocol PRN Reason: Hypoglycemia Protocol Hydrocortisone (Cortef) 10 mg PO HS COUNT [facility]CLUDES [facility] Last Admin: 09/04/17 21:28 Dose: 10 mg Insulin Detemir (Levemir) 30 units SC HS COUNT [facility]CLUDES [facility] Last Admin: 09/04/17 21:29 Dose: 30 unit Insulin Human Lispro (Humalog) 0 units SC ACHS COUNT INCLUDES [facility] Last Admin: 09/05/17 08:36 Dose: Not Given Insulin Human Lispro (Humalog) 10 units SC AC COUNT [facility]CLUDES [facility] Last Admin: 09/05/17 08:37 Dose: 10 units Levothyroxine Sodium (Synthroid) 25 mcg PO DAILY@0630 COUNT [facility] Last Admin: 09/05/17 05:40 Dose: 25 mcg Magnesium Oxide (Mag-Ox) 400 mg PO DAILY COUNT [facility]CLUD[facility] Last Admin: 09/05/17 08:38 Dose: 400 mg Metformin HCl (Glucophage) 500 mg PO BIDWM COUNT INCLUDES [facility] Last Admin: 09/05/17 08:36 Dose: 500 mg - Labs Labs: 09/05/17 06:20 09/05/17 06:20 PT 11.3 Seconds (9.8-13.1) 09/02/17 18:20 INR 1.0 (0.9-1.2) 09/02/17 18:20 APTT 28.5 Seconds (25.6-37.1) 09/02/17 18:20 - Constitutional Appears: Well, No Acute Distress - Cardiovascular Exam Cardiovascular Exam: REGULAR RHYTHM, +S2. absent: Murmur - GI/Abdominal Exam GI & Abdominal Exam: Soft, Normal Bowel Sounds - Neurological Exam Neurological Exam: Alert, Awake, Oriented x3 Assessment and Plan - Assessment and Plan (Free Text) Assessment: 71 y/o female w/ PMHx of Multiple Myeloma, hx of multiple fractures (recent left hip fracture), IDDM type 2, HTN, Pulm HTN, COPD on home oxygen and CPAP, hx of PE s/p IVC filter in 2014) was admitted for hypomagnesemia and COPD exacerbation. 1. Hypomagnesemia - initially 0.9 mg/dl, now 1.7 mg/dl -increased Mg Oxide PO 400mg to Mg Oxide 400mg PO BID -likely medication induced; dexamethasone, hydrocortisone -s/p 2gm Mg sulfate IV in ED -1x dose of Mg Sulfate 2gm -Endocrine consulted; will follow up recs 2.Leukocytosis -WBC 12.1 likely 2/2 steroid use, no suspected infectious etiology -afebrile 3.COPD exacerbation -acute exacerbation of chronic condition -improved -s/p duonebs x2, solu-medrol 125 mg IV -c/w Duoneb INH, albuterol -continue home regimen: 2L supplemental O2 via nasal cannula during the day, CPAP at night 4.Hyponatremia -resolved Na 132 today -s/p 500ml NS in ED -Fluid restriction, 1L 5. Prolong QTc -resolved -EKG on admission QTc 511, repeat EKG QTc 520--> QTc 467 & QT interval 374 on -acute on chronic, as noted on last admission -likely 2/2 to medication and electrolyte imbalance -magnesium replaced 6. IDDM type 2 -chronic, controlled -continue home medications: c/w, Metformin 500mg PO BID -hypoglycemia protocol in place -Endocrine consulted; Levemir 16 Units HS and Lispro 8 units TID 7. HTN -chronic, controlled -c/w Enalapril 2.5mg PO QD and Aspirin 81 mg PO QD 8. Hypothyroidism -chronic, controlled -c/w Levothyroxine 25mg 9. Restless leg syndrome -chronic -c/w Clonazepam 0.5 mg PO QD 10. Depression -chronic, controlled -c/w Buspirone 10mg PO Q12, Aripiprazole 5mg PO QHS 11. Multiple Myeloma -chronic -continue home medications: Dexamethasone 20mg once a week on mondays, Hydrocortisone 10mg PO QHS -outpatient follow up with heme/onc Dr. Vilchis 12. Anemia -chronic, stable -likely secondary to multiple myeloma 13. Morbid obesity -chronic -BMI 40.5 14. Pressure ulcer -Stage II -3 small dime sized pressure ulcers in L buttock -wound care on board 15. Prophylactic measures -DVT: lovenox 40 mg SC daily <Nayeli Darby - Last Filed: 09/06/17 08:07> Objective - Vital Signs/Intake and Output Vital Signs (last 24 hours): Temp Pulse Resp BP Pulse Ox 97.1 F L 73 18 119/71 94 L 09/06/17 04:47 09/06/17 04:47 09/06/17 04:47 09/06/17 04:47 09/06/17 04:47 - Medications Medications: Current Medications Albuterol Sulfate (Albuterol 0.083% Inhal Jaclyn (2.5 Mg/3 Ml) Ud) 2.5 mg INH RQ4 PRN PRN Reason: Shortness of Breath Albuterol/Ipratropium (Duoneb 3 Mg/0.5 Mg (3 Ml) Ud) 3 ml INH RQ6 PRN PRN Reason: Shortness of Breath Aripiprazole (Abilify) 5 mg PO HS COUNT [facility]CLUDES [facility] Last Admin: 09/05/17 21:32 Dose: 5 mg Aspirin (Ecotrin) 81 mg PO DAILY COUNT INCLUDES [facility] Last Admin: 09/05/17 08:35 Dose: 81 mg Buspirone HCl (Buspar) 10 mg PO Q12H COUNT INCLUDES [facility] Last Admin: 09/05/17 19:36 Dose: 10 mg Calcium/Vitamin D (Oyster Shell Calcium/Vitamin D 500 Mg-200 Iu) 1 tab PO BID COUNT INCLUDES [facility] Last Admin: 09/05/17 17:07 Dose: 1 tab Clonazepam (Klonopin) 0.5 mg PO DAILY PRN PRN Reason: Anxiety Dexamethasone (Decadron) 20 mg PO QWK COUNT INCLUDES [facility] Dextrose (Dextrose 50% Inj) 0 ml IV STAT PRN; Protocol PRN Reason: Hypoglycemia Protocol Dextrose (Glutose 15) 0 gm PO ONCE PRN; Protocol PRN Reason: Hypoglycemia Protocol Enalapril Maleate (Vasotec) 2.5 mg PO DAILY COUNT INCLUDES [facility] Last Admin: 09/05/17 08:38 Dose: 2.5 mg Enoxaparin Sodium (Lovenox) 40 mg SC DAILY [facility] PRN Reason: Protocol Last Admin: 09/05/17 08:38 Dose: 40 mg Furosemide (Lasix) 20 mg PO Q48H COUNT [facility]CLUDES [facility] Last Admin: 09/04/17 20:18 Dose: 20 mg Glucagon (Glucagen Diagnostic Kit) 0 mg IM STAT PRN; Protocol PRN Reason: Hypoglycemia Protocol Hydrocortisone (Cortef) 10 mg PO HS COUNT INCLUDES [facility] Last Admin: 09/05/17 21:26 Dose: 10 mg Insulin Detemir (Levemir) 18 units SC HS COUNT INCLUDES [facility] Insulin Human Lispro (Humalog) 0 units SC [facility] COUNT INCLUDES THE [facility] Last Admin: 09/05/17 21:32 Dose: Not Given Insulin Human Lispro (Humalog) 6 units SC AC COUNT INCLUDES [facility] Levothyroxine Sodium (Synthroid) 25 mcg PO DAILY@0630 COUNT INCLUDES [facility] Last Admin: 09/06/17 06:21 Dose: 25 mcg Magnesium Oxide (Mag-Ox) 400 mg PO DAILY COUNT INCLUDES [facility] Last Admin: 09/05/17 08:38 Dose: 400 mg Magnesium Oxide (Mag-Ox) 400 mg PO BID COUNT [facility]CLUDES [facility] Last Admin: 09/05/17 17:07 Dose: 400 mg Metformin HCl (Glucophage) 500 mg PO BIDWM COUNT INCLUDES [facility] Last Admin: 09/05/17 17:06 Dose: 500 mg - Labs Labs: 09/06/17 04:20 09/06/17 04:20 PT 11.3 Seconds (9.8-13.1) 09/02/17 18:20 INR 1.0 (0.9-1.2) 09/02/17 18:20 APTT 28.5 Seconds (25.6-37.1) 09/02/17 18:20 Attending/Attestation - Attestation I have personally seen and examined this patient.: Yes I have fully participated in the care of the patient.: Yes I have reviewed all pertinent clinical information, including history, physical exam and plan: Yes Notes (Text): 09/06/17 08:06 Attending Note ATTESTATION - Patient seen and examined. Case discussed with resident. Agree with findings and plan. Endocrine following. Tests as ordered. Patient reports no complaints.
--- NOTE | 2017-09-05 14:48 | PN ---
DATE: 09/05/2017 ENDO FOLLOWUP NOTE LOCATION: Room 401 SUBJECTIVE: This is a 71-year-old female with recent uncontrolled type 2 insulin-requiring diabetes, presented here with acute exacerbation of COPD and has improved clinically and hemodynamically as noted thereof. LABORATORY DATA: Her glucose levels have been fluctuating but are improved overnight and the glucose values have ranged from 128 to 163 mg/dL. Her latest chemistry showed a BUN of 29, sodium 132, potassium 4.8, chloride 92, CO2 of 30, glucose 138, and creatinine 1.1. Her thyroid studies with a TSH of 7.95. She remains clinically and biochemically euthyroid on a low-dose levothyroxine replacement therapy as given. Her serum calcium level is 9.2. Her serum cortisol level is 11.7, which is optimal for her current oral steroid replacement dosing regimen. ASSESSMENT AND PLAN: So at this time, we will continue with modified basal and bolus insulin regimen to allow for dose equilibration and keep her on the Humalog given 10 units subcu t.i.d. before meals as ordered. We will continue the Levemir given as 23 units subcu at bedtime daily as modified given. We will continue also the low dose correction scale using Humalog insulin as ordered to prevent hypoglycemia. More over, we will continue the current steroid replacement therapy. Given hydrocortisone 10 mg p.o. at bedtime daily with Decadron given as 20 mg once a week as ordered. We will obtain serial chemistries and supplement accordingly as needed. We will follow with you. Irene Mann MD
[2017-09-05] MEDS ORDERED: Alum-Mag Hydrox-Simethicone Susp (30 mL) PO ONE ×2 (17:31→20:07)
[2017-09-05] MEDS ORDERED: Insulin Detemir 100 Units/ml Inj SC SCH (22:00)
[2017-09-06 05:50] LABS: ALB/GLOB RATIO 1.1 (1.0-2.1); ALBUMIN 3.6 g/dL (3.5-5.0); ALT/SGPT 23 U/L (9-52); AST/SGOT 18 U/L (14-36); BLOOD UREA NITROGEN 28 mg/dl (7-17); CALCIUM 9.3 mg/dL (8.4-10.2); GFR AFRICAN-AMERICAN > 60; GFR NON-AFRICAN AMERICAN 55
[2017-09-06 06:07] LABS: HEMOGLOBIN 10.5 g/dL (12.0-16.0); MEAN CELL VOLUME 90.2 fl (81.0-99.0); MEAN CORPUSCULAR HEMOGLOBIN 29.8 pg (27.0-31.0); RBC 3.52 Mil/uL (3.80-5.20); RED CELL DISTRIBUTION WIDTH 17.7 % (11.5-14.5); WHITE BLOOD COUNT 8.9 K/uL (4.8-10.8)
[2017-09-06] MEDS: Levothyroxine 25 MCG TAB PO SCH (06:21)
[2017-09-06 08:17] VITALS: O2SAT 98
[2017-09-06] MEDS: Insulin Lispro (humaLOG) 100 Units/ml Inj SC SCH ×4 (08:17→13:13)
--- NOTE | 2017-09-06 08:22 | CP.PCM.PN ---
Subjective - Date & Time of Evaluation Date of Evaluation: 09/06/17 Time of Evaluation: 08:20 - Subjective Subjective: 71 y/o f admitted on 09/02 w/ dyspnea and hypomagnesemia. Seen and examined at bedside this morning. She reports mild supra-umbilical dull abdominal pain and 1 episode of diarrhea last night. She says she ate grilled cheese last night and maybe it "didn't agree" with her stomach Objective - Vital Signs/Intake and Output Vital Signs (last 24 hours): Temp Pulse Resp BP Pulse Ox 97.8 F 69 18 108/67 98 09/06/17 08:17 09/06/17 08:17 09/06/17 08:17 09/06/17 08:17 09/06/17 08:17 - Medications Medications: Current Medications Albuterol Sulfate (Albuterol 0.083% Inhal Jaclyn (2.5 Mg/3 Ml) Ud) 2.5 mg INH RQ4 PRN PRN Reason: Shortness of Breath Albuterol/Ipratropium (Duoneb 3 Mg/0.5 Mg (3 Ml) Ud) 3 ml INH RQ6 PRN PRN Reason: Shortness of Breath Aripiprazole (Abilify) 5 mg PO HS [facility] Last Admin: 09/05/17 21:32 Dose: 5 mg Aspirin (Ecotrin) 81 mg PO DAILY [facility] Last Admin: 09/05/17 08:35 Dose: 81 mg Buspirone HCl (Buspar) 10 mg PO Q12H [facility] Last Admin: 09/05/17 19:36 Dose: 10 mg Calcium/Vitamin D (Oyster Shell Calcium/Vitamin D 500 Mg-200 Iu) 1 tab PO BID [facility] Last Admin: 09/05/17 17:07 Dose: 1 tab Clonazepam (Klonopin) 0.5 mg PO DAILY PRN PRN Reason: Anxiety Dexamethasone (Decadron) 20 mg PO QWK [facility] Dextrose (Dextrose 50% Inj) 0 ml IV STAT PRN; Protocol PRN Reason: Hypoglycemia Protocol Dextrose (Glutose 15) 0 gm PO ONCE PRN; Protocol PRN Reason: Hypoglycemia Protocol Enalapril Maleate (Vasotec) 2.5 mg PO DAILY [facility] Last Admin: 09/05/17 08:38 Dose: 2.5 mg Enoxaparin Sodium (Lovenox) 40 mg SC DAILY [facility] PRN Reason: Protocol Last Admin: 09/05/17 08:38 Dose: 40 mg Furosemide (Lasix) 20 mg PO Q48H [facility] Last Admin: 09/04/17 20:18 Dose: 20 mg Glucagon (Glucagen Diagnostic Kit) 0 mg IM STAT PRN; Protocol PRN Reason: Hypoglycemia Protocol Hydrocortisone (Cortef) 10 mg PO HS [facility] Last Admin: 09/05/17 21:26 Dose: 10 mg Insulin Detemir (Levemir) 18 units SC HS [facility] Insulin Human Lispro (Humalog) 0 units SC ACHS [facility] Last Admin: 09/06/17 08:17 Dose: Not Given Insulin Human Lispro (Humalog) 6 units SC AC [facility] Levothyroxine Sodium (Synthroid) 25 mcg PO DAILY@0630 [facility] Last Admin: 09/06/17 06:21 Dose: 25 mcg Magnesium Oxide (Mag-Ox) 400 mg PO DAILY [facility] Last Admin: 09/05/17 08:38 Dose: 400 mg Magnesium Oxide (Mag-Ox) 400 mg PO BID [facility] Last Admin: 09/05/17 17:07 Dose: 400 mg Metformin HCl (Glucophage) 500 mg PO BIDWM [facility] Last Admin: 09/05/17 17:06 Dose: 500 mg - Labs Labs: 09/06/17 04:20 09/06/17 04:20 PT 11.3 Seconds (9.8-13.1) 09/02/17 18:20 INR 1.0 (0.9-1.2) 09/02/17 18:20 APTT 28.5 Seconds (25.6-37.1) 09/02/17 18:20 - Constitutional Appears: Well, No Acute Distress - Respiratory Exam Respiratory Exam: Clear to Ausculation Bilateral, NORMAL BREATHING PATTERN - Cardiovascular Exam Cardiovascular Exam: REGULAR RHYTHM, +S1, +S2 - GI/Abdominal Exam GI & Abdominal Exam: Soft, Tenderness, Normal Bowel Sounds Additional comments: supraumbilical Assessment and Plan - Assessment and Plan (Free Text) Assessment: 71 y/o female w/ PMHx of Multiple Myeloma, hx of multiple fractures (recent left hip fracture), IDDM type 2, HTN, Pulm HTN, COPD on home oxygen and CPAP, hx of PE s/p IVC filter in 2014) was admitted for hypomagnesemia and COPD exacerbation. 1. Hypomagnesemia - initially 0.9 mg/dl, now 1.7 mg/dl -On Mg Oxide 400mg PO BID -likely medication induced; dexamethasone, hydrocortisone -s/p 2gm Mg sulfate IV in ED -1x dose of Mg Sulfate 2gm -Endocrine consulted; will follow up recs 2. Hyperkalemia - K+ is 5.4 -Duoneb 3 -will follow 3.Leukocytosis -resolved WBC 8.9 -afebrile 4.COPD exacerbation -acute exacerbation of chronic condition -improved -s/p duonebs x2, solu-medrol 125 mg IV -c/w Duoneb INH, albuterol -continue home regimen: 2L supplemental O2 via nasal cannula during the day, CPAP at night 5.Hyponatremia -resolved -s/p 500ml NS in ED -Fluid restriction, 1L 6. Prolong QTc -resolved -EKG on admission QTc 511, repeat EKG QTc 520--> QTc 467 & QT interval 374 on -acute on chronic, as noted on last admission -likely 2/2 to medication and electrolyte imbalance -magnesium replaced 7. IDDM type 2 -chronic, controlled -continue home medications: c/w, Metformin 500mg PO BID -hypoglycemia protocol in place -Endocrine consulted; Levemir 16 Units HS and Lispro 8 units TID 8. HTN -chronic, controlled -c/w Enalapril 2.5mg PO QD and Aspirin 81 mg PO QD 9. Hypothyroidism -chronic, controlled -c/w Levothyroxine 25mg 10. Restless leg syndrome -chronic -c/w Clonazepam 0.5 mg PO QD 11. Depression -chronic, controlled -c/w Buspirone 10mg PO Q12, Aripiprazole 5mg PO QHS 12. Multiple Myeloma -chronic -continue home medications: Dexamethasone 20mg once a week on mondays, Hydrocortisone 10mg PO QHS -outpatient follow up with heme/onc Dr. Vilchis 13. Anemia -chronic, stable -likely secondary to multiple myeloma 14. Morbid obesity -chronic -BMI 40.5 15. Pressure ulcer -Stage II -3 small dime sized pressure ulcers in L buttock -wound care on board 16. Prophylactic measures -DVT: lovenox 40 mg SC daily
[2017-09-06] MEDS: Magnesium Oxide 400 mg Tab UD PO SCH (09:33)
[2017-09-06] MEDS: Enoxaparin 40 mg Syringe SC SCH (09:33)
[2017-09-06] MEDS: Calcium-Vit D 500 mg-200 Units Tab UD PO SCH (09:34)
[2017-09-06 11:57] VITALS: PULSE 79
[2017-09-06 12:30] VITALS: BP 104/62; RESP 20; TEMP 97.9
--- NOTE | 2017-09-06 13:20 | CP.PCM.DIS ---
Provider - Provider Date of Admission: 09/02/17 19:13 Attending physician: Ciara Jane MD Time Spent in preparation of Discharge (in minutes): 35 Diagnosis - Discharge Diagnosis (1) Hypomagnesemia Status: Acute Hospital Course - Lab Results Lab Results: Most Recent Lab Values WBC 8.9 K/uL (4.8-10.8) 09/06/17 04:20 RBC 3.52 Mil/uL (3.80-5.20) L 09/06/17 04:20 Hgb 10.5 g/dL (12.0-16.0) L 09/06/17 04:20 Hct 31.7 % (34.0-47.0) L 09/06/17 04:20 MCV 90.2 fl (81.0-99.0) 09/06/17 04:20 MCH 29.8 pg (27.0-31.0) 09/06/17 04:20 MCHC 33.0 g/dL (33.0-37.0) 09/06/17 04:20 RDW 17.7 % (11.5-14.5) H 09/06/17 04:20 Plt Count 229 K/uL (130-400) 09/06/17 04:20 MPV 8.9 fl (7.2-11.7) 09/03/17 05:11 Neut % (Auto) 94.6 % (50.0-75.0) H 09/03/17 05:11 Lymph % (Auto) 4.1 % (20.0-40.0) L 09/03/17 05:11 [place] % (Auto) 1.1 % (0.0-10.0) 09/03/17 05:11 Eos % (Auto) 0.0 % (0.0-4.0) 09/03/17 05:11 Baso % (Auto) 0.2 % (0.0-2.0) 09/03/17 05:11 Neut # (Auto) 8.4 K/uL (1.8-7.0) H 09/03/17 05:11 Lymph # (Auto) 0.4 K/uL (1.0-4.3) L 09/03/17 05:11 Alger # (Auto) 0.1 K/uL (0.0-0.8) 09/03/17 05:11 Eos # (Auto) 0.0 K/uL (0.0-0.7) 09/03/17 05:11 Baso # (Auto) 0.0 K/uL (0.0-0.2) 09/03/17 05:11 Neutrophils % (Manual) 83 % (42-75) H 09/03/17 05:11 Band Neutrophils % 5 % (0-2) H 09/03/17 05:11 Lymphocytes % (Manual) 3 % (20-50) L 09/03/17 05:11 Monocytes % (Manual) 7 % (0-10) 09/03/17 05:11 Metamyelocytes % 2 % (0-0) H 09/03/17 05:11 Platelet Estimate Normal (NORMAL) 09/03/17 05:11 Large Platelets Present 09/03/17 05:11 Hypochromasia (manual) Slight 09/03/17 05:11 Anisocytosis (manual) Slight 09/03/17 05:11 Tear Drop Cells Slight 09/03/17 05:11 Ovalocytes Slight 09/03/17 05:11 PT 11.3 Seconds (9.8-13.1) 09/02/17 18:20 INR 1.0 (0.9-1.2) 09/02/17 18:20 APTT 28.5 Seconds (25.6-37.1) 09/02/17 18:20 Sodium 133 mmol/l (132-148) 09/06/17 04:20 Potassium 5.4 MMOL/L (3.6-5.0) H 09/06/17 04:20 Chloride 92 mmol/L (98-107) L 09/06/17 04:20 Carbon Dioxide 33 mmol/L (22-30) H 09/06/17 04:20 Anion Gap 13 (10-20) 09/06/17 04:20 BUN 28 mg/dl (7-17) H 09/06/17 04:20 Creatinine 1.0 mg/dl (0.7-1.2) 09/06/17 04:20 Est GFR ( Amer) > 60 09/06/17 04:20 Est GFR (Non-Af Amer) 55 09/06/17 04:20 POC Glucose (mg/dL) 105 mg/dL (65-110) 09/06/17 11:24 Random Glucose 104 mg/dL (65-105) 09/06/17 04:20 Hemoglobin A1c 8.0 % (4.2-6.5) H 09/04/17 05:30 Calcium 9.3 mg/dL (8.4-10.2) 09/06/17 04:20 Phosphorus 4.4 mg/dl (2.5-4.5) 09/03/17 05:11 Magnesium 1.7 MG/DL (1.6-2.3) 09/06/17 04:20 Total Bilirubin 0.3 mg/dl (0.2-1.3) 09/06/17 04:20 AST 18 U/L (14-36) 09/06/17 04:20 ALT 23 U/L (9-52) 09/06/17 04:20 Alkaline Phosphatase 62 U/L (38-126) 09/06/17 04:20 Troponin I < 0.0120 ng/mL (0.00-0.120) 09/02/17 18:20 NT-Pro-B Natriuret Pep 414 pg/ml (0-900) 09/02/17 18:20 Total Protein 6.8 G/DL (6.3-8.2) 09/06/17 04:20 Albumin 3.6 g/dL (3.5-5.0) 09/06/17 04:20 Globulin 3.2 gm/dL (2.2-3.9) 09/06/17 04:20 Albumin/Globulin Ratio 1.1 (1.0-2.1) 09/06/17 04:20 Thyroxine (T4) 3.63 ug/dl (5.5-11.0) L 09/04/17 05:30 TSH 3rd Generation 0.95 mIU/ML (0.46-4.68) 09/04/17 05:30 Cortisol AM Sample 11.7 ug/dL (4.46-22.7) 09/04/17 05:30 - Hospital Course Hospital Course: 71 y/o female w/ extensive pmh (multiple myeloma, COPD, HTN, CHF, Diabetes, HLD ) who was sent to ER on 09/02/17 w/ c/o dyspnea and labs in clinic showing a mg+ level of 0.9 mg/dL. She was found to have prolonged QTc in the ER. Her COPD exacerbation was managed with 2L supplemental O2 via NC, CPAP at night, and duonebs x2, solu-medrol 125 mg IV, IVF NS 500 mL @ 100 mL/hr, duonebs Q6h fátima and albuterol Q4h prn. Mag was replaced 2gm MG Sulfate IV in ED, 1 dose of Mg Sulfate 2gm, and was eventually put on Magnesium Oxide 400mg PO BID. Her prolonged QTC resolved, and she was discharged on 09/06/17 w/ Magnesium Oxide 400 mg PO BID and will follow up in clinic. Only change in home meds was MgO 400mg QD to MgO 400mg PO BID - Date & Time of H&P Date of H&P: 09/02/17 Time of H&P: 19:50 Discharge Exam - Respiratory Exam Respiratory Exam: Clear to PA & Lateral, NORMAL BREATHING PATTERN. absent: Rales, Rhonchi, Wheezes, Respiratory Distress - Cardiovascular Exam Cardiovascular Exam: REGULAR RHYTHM, +S1, +S2 - GI/Abdominal Exam GI & Abdominal Exam: Normal Bowel Sounds, Soft - Extremities Exam Additional comments: No pedal edema - Neurological Exam Neurological exam: Alert, Oriented x3 Discharge Plan - Follow Up Plan Condition: STABLE Disposition: HOME/ ROUTINE Additional Instructions: follow up with Dr. Neumann within 1 week take magnesium oxide 400mg twice daily follow up lab work at the end of the week follow up with Chase Miller next week as scheduled any worsening shortness of breath, chest pain, weakness, return to ED Referrals: David Neumann MD [Staff Provider] -
[2017-09-06] MEDS ORDERED: Alum-Mag Hydrox-Simethicone Susp (30 mL) PO ONE (14:34)
[2017-09-06] MEDS ORDERED: Insulin Lispro (humaLOG) 100 Units/ml Inj SC SCH (16:30)
[2017-09-06] MEDS ORDERED: Insulin Detemir 100 Units/ml Inj SC SCH ×2 (22:00)
--- NOTE | 2017-09-06 23:16 | PN ---
DATE: 09/06/2017 ENDO FOLLOWUP NOTE LOCATION: Room 401. SUBJECTIVE: This is a 71-year-old female with recent uncontrolled type 2 insulin-requiring diabetes, presenting here with acute exacerbation of COPD and is now being followed closely for metabolic management. LABORATORY DATA: Her glycemic levels have also been on the low side of normal with the variability of her oral intake as noted by the nursing staff. Her glucose levels today have ranged from 99 to 105 mg/dL. Her latest chemistry showed a BUN of 20, sodium 133, potassium 5.4, chloride 92, CO2 of 33, glucose 104, creatinine 1, and calcium is 9.3. ASSESSMENT AND PLAN: So at this time, we will modify once again her basal and bolus insulin regimen and lower the Humalog to 4 units subcu t.i.d. before meals as ordered. We will also lower the basal insulin with Levemir to be given as 12 units subcu at bedtime daily as given. We will titrate incrementally as indicated to optimize metabolic control. We will obtain serial chemistries and supplement accordingly as needed. We will follow. Irene Mann MD
--- NOTE | 2017-09-07 14:23 | CARD ---
APPROVED REPORT EKG Measurement Heart [id number] <Conclusion> Normal sinus rhythm Possible Left atrial enlargement Septal infarct, age undetermined Abnormal ECG
== END 2017-09-06 15:45 | disposition home or self-care (01) | DRG 641 ==
LOC: H.ER 17:18 → OBSVTOIN 19:13 → H.ERHOLD 19:13 → H.TEL 22:00
PROVIDERS: ADMIT Family Medicine Geriatric Medicine; ATTEND Family Medicine Geriatric Medicine
PROC: 3E0F73Z Introduction of Anti-inflammatory into Respiratory Tract, Via Natural or Artificial Opening (ICD-10-PCS; principal; 2017-09-02)
PROC: 3E0F7GC Introduction of Other Therapeutic Substance into Respiratory Tract, Via Natural or Artificial Opening (ICD-10-PCS; 2017-09-02)
DX: E83.42 Hypomagnesemia (principal); E87.1 Hypo-osmolality and hyponatremia; J44.1 Chronic obstructive pulmonary disease with (acute) exacerbation; C90.00 Multiple myeloma not having achieved remission; E27.49 Other adrenocortical insufficiency; Z68.41 Body mass index [BMI] 40.0-44.9, adult; E87.5 Hyperkalemia; L89.322 Pressure ulcer of left buttock, stage 2; E11.65 Type 2 diabetes mellitus with hyperglycemia; I27.20 Pulmonary hypertension, unspecified; E03.9 Hypothyroidism, unspecified; D63.0 Anemia in neoplastic disease; E83.51 Hypocalcemia; I95.2 Hypotension due to drugs; D72.828 Other elevated white blood cell count; E66.01 Morbid (severe) obesity due to excess calories; G20 Parkinson's disease; I25.10 Atherosclerotic heart disease of native coronary artery without angina pectoris; I11.0 Hypertensive heart disease with heart failure; I50.9 Heart failure, unspecified; Z99.81 Dependence on supplemental oxygen; G25.81 Restless legs syndrome; E78.5 Hyperlipidemia, unspecified; K21.9 Gastro-esophageal reflux disease without esophagitis; E78.00 Pure hypercholesterolemia, unspecified; M06.9 Rheumatoid arthritis, unspecified; F32.9 Major depressive disorder, single episode, unspecified; M19.90 Unspecified osteoarthritis, unspecified site; Z79.4 Long term (current) use of insulin; Z79.84 Long term (current) use of oral hypoglycemic drugs; Z79.82 Long term (current) use of aspirin; Z86.711 Personal history of pulmonary embolism; Z87.01 Personal history of pneumonia (recurrent); Z87.81 Personal history of (healed) traumatic fracture; Z88.6 Allergy status to analgesic agent; Z92.21 Personal history of antineoplastic chemotherapy

== ENCOUNTER 2017-11-17 08:49 | Inpatient (IN) | payer MEDICARE, OTHER ==
[2017-11-17 08:51] VITALS: BMI 36.6
[2017-11-17] MEDS ORDERED: Sodium Chloride 0.9% 1,000 ML IV STA (09:40)
[2017-11-17] MEDS ORDERED: Ipratropium 0.02% Inhal Soln (0.5 mg/2.5 ml) UD IH STA (09:42)
[2017-11-17] MEDS ORDERED: Magnesium Sulfate 2 gm/50 ml 2 GM/50 ML BAG IVPB ONE (09:43)
[2017-11-17] MEDS ORDERED: Ipratropium 0.02% Inhal Soln (0.5 mg/2.5 ml) UD IH ONE (09:52)
[2017-11-17] MEDS ORDERED: Magnesium Sulfate 2 gm/50 ml 2 GM/50 ML BAG ONE (09:53)
[2017-11-17 09:56] LABS: BASO % 0.4 % (0.0-2.0); EOS # 0.2 K/uL (0.0-0.7); EOS % 3.5 % (0.0-4.0); HEMOGLOBIN 10.9 g/dL (12.0-16.0); LYMPH # 1.6 K/uL (1.0-4.3); MEAN CELL VOLUME 87.9 fl (81.0-99.0); MEAN CORPUSCULAR HEMOGLOBIN 30.5 pg (27.0-31.0); MEAN CORPUSCULAR HGB CONC 34.7 g/dL (33.0-37.0); MEAN PLATELET VOLUME 9.9 fl (7.2-11.7); MONO # 0.7 K/uL (0.0-0.8); MONO % 12.8 % (0.0-10.0); NEUT # 2.8 K/uL (1.8-7.0); NEUT % 53.3 % (50.0-75.0); NRBC % 0.2 % (0.0-0.0); RBC 3.58 Mil/uL (3.80-5.20); RED CELL DISTRIBUTION WIDTH 18.3 % (11.5-14.5); WHITE BLOOD COUNT 5.2 K/uL (4.8-10.8)
[2017-11-17 10:12] LABS: ALB/GLOB RATIO 1.2 (1.0-2.1); ALBUMIN 3.4 g/dL (3.5-5.0)
--- NOTE | 2017-11-17 11:06 | ED PDOC ---
HPI: General Adult Time Seen by Provider: 11/17/17 09:17 Chief Complaint (Nursing): Dizziness/Lightheaded Chief Complaint (Provider): light-headedness, dizziness and diarrhea History Per: Patient History/Exam Limitations: no limitations Onset/Duration Of Symptoms: Days Current Symptoms Are (Timing): Still Present Additional History Per: Family (daughter) Additional Complaint(s): 71 year old female with PMHx of HTN, diabetes, thyroid, multiple myeloma, hyperglycemia and COPD presents to the ER for an evaluation of light-headedness , dizziness and diarrhea onset for 5 days. Patient states she becomes nauseous but denies vomiting. Reports of 5 episodes of diarrhea per day that is watery and non-bloody. As per daughter who is at bedside, patient does not eat much and she took Pepto Bismol without any relief. Denies fever, chills, urinary symptoms, sick contacts or recent travels. PMD: David Neumann Past Medical History Vital Signs: Last Vital Signs Temp 98.5 F 11/17/17 08:51 Pulse 103 H 11/17/17 08:51 Resp 19 11/17/17 08:51 BP 113/70 11/17/17 08:51 Pulse Ox 98 11/17/17 11:15 - Medical History PMH: Anemia, Anxiety, Arthritis, Asthma, CAD, CHF, COPD, Depression, Diabetes, Deep Vein Thrombosis, Emphysema, Fibromyalgia, Fractures, GERD, HTN, Hypercholesterolemia, Hypothyroidism, Migraine, Parkinson's Disease, Pneumonia, Pulmonary Embolism, Rheumatoid Arthritis, Sleep Apnea Denies: HIV, Chronic Kidney Disease - Surgical History Surgical History: Cholecystectomy, Endoscopy, Tonsillectomy Other surgeries: right ankle surgery - Family History Family History: States: Unknown Family Hx, Diabetes - Social History Current smoker - smoking cessation education provided: No Alcohol: None Drugs: Denies - Home Medications Home Medications: Ambulatory Orders Medication Instructions Recorded Aspirin [Ecotrin] 81 mg PO DAILY 03/05/17 Dexamethasone [Decadron] 20 mg PO ASDIR 03/05/17 Enalapril Maleate [Vasotec] 2.5 mg PO DAILY 03/05/17 Furosemide [Lasix] 20 mg PO Q48H 03/05/17 Riociguat [Adempas] 2 mg PO TID 03/05/17 busPIRone [Buspar] 10 mg PO Q12H 03/05/17 clonazePAM [Klonopin] 0.5 mg PO DAILY PRN 03/05/17 metFORMIN [glucOPHAGE] 500 mg PO BID 03/05/17 ARIPiprazole [Abilify] 10 mg PO HS 05/11/17 Hydrocortisone [Cortef] 10 mg PO HS 05/11/17 Omeprazole 20 mg PO DAILY 05/11/17 Calcium Carbonate/Vitamin D3 1 each PO BID #60 tablet 08/29/17 [Calcium 600 + Vit D Tablet] Insulin Detemir [Levemir] 12 units SC HS vial 08/29/17 Insulin Glargine, Recombina 12 unit SC HS #1 unit 08/29/17 [Lantus] Insulin Lispro [humALOG] 4 unit SC TID #1 ml 08/29/17 Levothyroxine [Synthroid] 25 mcg PO DAILY@0630 #30 tab 08/29/17 Magnesium Oxide [Mag-Ox] 400 mg PO DAILY #30 tab 08/29/17 Metoprolol Tartrate [Lopressor] 25 mg PO Q12 #30 tab 08/29/17 - Allergies Allergies/Adverse Reactions: Allergies Allergy/AdvReac Type Severity Reaction Status Date / Time codeine AdvReac syncope, Verified 11/17/17 08:57 diaphoresis Review of Systems ROS Statement: Except As Marked, All Systems Reviewed And Found Negative Constitutional: Negative for: Fever, Chills Gastrointestinal: Positive for: Nausea, Diarrhea. Negative for: Vomiting Genitourinary Female: Negative for: Dysuria, Frequency, Incontinence, Hematuria Neurological: Positive for: Dizziness, Other (light headedness) Physical Exam - Reviewed Nursing Documentation Reviewed: Yes Vital Signs Reviewed: Yes - Physical Exam Appears: Positive for: Non-toxic, No Acute Distress Head Exam: Positive for: ATRAUMATIC, NORMAL INSPECTION, NORMOCEPHALIC Skin: Positive for: Normal Color, Warm, Dry Eye Exam: Positive for: EOMI, Normal appearance, PERRL ENT: Positive for: Normal ENT Inspection Neck: Positive for: Normal, Painless ROM, Supple. Negative for: Decreased ROM Cardiovascular/Chest: Positive for: Regular Rate, Rhythm. Negative for: Murmur Respiratory: Positive for: Wheezing Gastrointestinal/Abdominal: Positive for: Tenderness (mild epigastric and RUQ). Negative for: Guarding, Rebound Back: Positive for: Normal Inspection Extremity: Positive for: Pedal Edema (posterior bilateral extremities). Negative for: Tenderness, Deformity Neurologic/Psych: Positive for: Alert, Oriented (x3). Negative for: Motor/ Sensory Deficits - Laboratory Results Result Diagrams: 11/17/17 09:43 11/17/17 09:43 - ECG O2 Sat by Pulse Oximetry: 98 (RA) Pulse Ox Interpretation: Normal Medical Decision Making Medical Decision Making: Time: 939 Initial Plan: --CMP --ED Urine Dipstick --CBC w/ Differential --Atrovent 0.5mg --Magnesium sulfate 2gm/50ml water --Normal Saline 1000 mls/hr --Pepcid 20mg --Zofran 4mg --Urine Culture --IV Insertion --Peak Flow Pre/Post TX --Urinalysis --Reevaluation Scribe Attestation: Documented by Codie Ruiz, acting as a scribe for Yessica Dover MD Provider Scribe Attestation: All medical record entries made by the Scribe were at my direction and personally dictated by me. I have reviewed the chart and agree that the record accurately reflects my personal performance of the history, physical exam, medical decision making, and the department course for this patient. I have also personally directed, reviewed, and agree with the discharge instructions and disposition. 11.45a - feeling better but her K, Ch and Ca is low. Will admit for hydration and correction of electrolytes Disposition - Clinical Impression Clinical Impression: Dehydration, Dizziness, Moderate COPD (chronic obstructive pulmonary disease), Electrolyte abnormality - Patient ED Disposition Is Patient to be Admitted: Yes Doctor Will See Patient In The: Hospital - Disposition Disposition: Transfer of Care Disposition Time: 11:45 Condition: FAIR Forms: Aviir ([place] Irish) - Pt Status Changed To: Hospital Disposition Of: Observation
[2017-11-17 11:29] LABS: CALCIUM 5.8 mg/dL (8.4-10.2)
[2017-11-17] MEDS ORDERED: Potassium Chloride 20 mEq ER Tab PO ONE ×3 (12:04→16:19)
--- NOTE | 2017-11-17 13:16 | CP.PCM.HP ---
History of Present Illness - History of Present Illness History of Present Illness: HPI: 71 y/o female with PMHx of HTN, T2DM, Hypothyroidsm, Depression, Multiple myeloma, and COPD who presents to the ED accompanied by her daughter with c/o watery diarhea for 5 days, patient states she is having approxiamtely 4 to5 episodes of diarrhea, assoicated with mild LLQ abdominal pain, and lightheadeness she also reports that she has good appetite but when she tries to eat she often feels nauseous and can not eat, she denies blood in the stools , vomiting, POLK, chest pain, palpitations, chills, fever, urinary symptoms at this time. Daughter at bedside who is the caregiver for patient reports that the patient is a poor eater, she reports that the patient has f/u with Dr Vilchis hematology-oncologist specialist and she recently started a new medication Revlimid indicated for MM treatment that in the past caused some side effects to her mother. ROS: All systems reviewed and found negative at this time, except as per HPI. PMD: Dr David Neumann Psych: Dr Chase Miller Client Service Coordinator: Dr Cisneros Oncology: Dr Vilchis PMH: Multiple M, T2DM, HTN, COPD on home Oxigen at 2L NC and also uses CPAP at home, Hypothyroidsm, GERD, hx of PE s/p IVC filter 2014. FMH: Father had Lung CA and HTN, Mother of a heart attack. Allergy: Codeine. SURG: Ankle fracture repair, Cholecystectomy, Breast cyst surgery x2, tonsillectomy. SOC: Denies Tobacco/ETOH/Rec Drug use. Next of Kin: Daughter Megha [phone] Code status: Full code. ED course: VS BP 114/43, HR 66, RR 20, T98.3, 95% on 2L NC LABS: CBC: WBC 5.2, H/H 10.9/31.5, Platelet 215. Chem: Na131, K3.1, Cl 91, Ca 5.8. ED Tx: IVF started NS 100 ml/hr, MgS 2g IV, KCL 40 mEQ PO QD, Duoneb neb resp tx received. Present on Admission - Present on Admission Any Indicators Present on Admission: Yes History of DVT/PE: Yes History of Uncontrolled Diabetes: Yes Urinary Catheter: No Decubitus Ulcer Present: No History Surgical Site Infection Following: None Past Patient History - Infectious Disease Hx of Infectious Diseases: None - Tetanus Immunizations Tetanus Immunization: Unknown - Past Medical History & Family History Past Medical History?: Yes - Past Social History Alcohol: None Drugs: Denies - CARDIAC Hx Congestive Heart Failure: Yes Hx Hypercholesterolemia: Yes Hx Hypertension: Yes - PULMONARY Hx Asthma: Yes Hx Chronic Obstructive Pulmonary Disease (COPD): Yes Hx Emphysema: Yes Hx Pneumonia: Yes Hx Pulmonary Embolism: Yes Hx Sleep Apnea: Yes - NEUROLOGICAL Hx Migraine: Yes Hx Parkinson's Disease: Yes - HEENT Hx Deafness: Yes - RENAL Hx Chronic Kidney Disease: No - ENDOCRINE/METABOLIC Hx Hypothyroidism: Yes - HEMATOLOGICAL/ONCOLOGICAL Hx Anemia: Yes Hx Human Immunodeficiency Virus (HIV): No - INTEGUMENTARY Hx Dermatological Problems: No - MUSCULOSKELETAL/RHEUMATOLOGICAL Hx Arthritis: Yes Hx Fractures: Yes Hx Rheumatoid Arthritis: Yes - GASTROINTESTINAL Hx Gastrointestinal Disorders: No - GENITOURINARY/GYNECOLOGICAL Hx Genitourinary Disorders: Yes Hx Incontinence: Yes - PSYCHIATRIC Hx Anxiety: Yes Hx Depression: Yes - SURGICAL HISTORY Hx Cholecystectomy: Yes Hx Tonsillectomy: Yes - ANESTHESIA Hx Anesthesia: Yes Hx Anesthesia Reactions: Yes (Resp. Distress) Hx Malignant Hyperthermia: No Meds Allergies/Adverse Reactions: Allergies Allergy/AdvReac Type Severity Reaction Status Date / Time codeine AdvReac syncope, Verified 11/17/17 08:57 diaphoresis Physical Exam - Constitutional Appears: Non-toxic, No Acute Distress - Head Exam Head Exam: ATRAUMATIC, NORMOCEPHALIC - Eye Exam Eye Exam: EOMI, PERRL - ENT Exam ENT Exam: Mucous Membranes Moist - Respiratory Exam Respiratory Exam: Wheezes Additional comments: some isolated wheezing noted - Cardiovascular Exam Cardiovascular Exam: REGULAR RHYTHM, +S1, +S2 - GI/Abdominal Exam GI & Abdominal Exam: Normal Bowel Sounds, Tenderness Additional comments: tenderness to LLQ - Extremities Exam Extremities exam: Negative for: pedal edema - Neurological Exam Neurological exam: Alert, CN II-XII Intact, Oriented x3 - Psychiatric Exam Psychiatric exam: Normal Affect - Skin Skin Exam: Pallor, Warm Results - Vital Signs Recent Vital Signs: Last Vital Signs Temp 98.5 F 11/17/17 08:51 Pulse 103 H 11/17/17 08:51 Resp 19 11/17/17 08:51 BP 113/70 11/17/17 08:51 Pulse Ox 98 11/17/17 12:02 - Labs Result Diagrams: 11/17/17 09:43 11/17/17 09:43 Labs: Laboratory Results - last 24 hr 11/17/17 11/17/17 11/17/17 08:58 09:43 09:43 WBC 5.2 RBC 3.58 L Hgb 10.9 L Hct 31.5 L MCV 87.9 D MCH 30.5 MCHC 34.7 RDW 18.3 H Plt Count 215 MPV 9.9 Neut % (Auto) 53.3 Lymph % (Auto) 30.0 [place] % (Auto) 12.8 H Eos % (Auto) 3.5 Baso % (Auto) 0.4 Neut # (Auto) 2.8 Lymph # (Auto) 1.6 [place] # (Auto) 0.7 Eos # (Auto) 0.2 Baso # (Auto) 0.0 Sodium 131 L Potassium 3.1 L Chloride 91 L Carbon Dioxide 27 Anion Gap 16 BUN 27 H Creatinine 1.2 Est GFR ( Amer) 54 Est GFR (Non-Af Amer) 44 POC Glucose (mg/dL) 102 Random Glucose 103 Calcium 5.8 L* D Total Bilirubin 0.8 AST 197 H D ALT 147 H D Alkaline Phosphatase 242 H D Total Protein 6.2 L Albumin 3.4 L Globulin 2.7 Albumin/Globulin Ratio 1.2 Assessment & Plan - Assessment and Plan (Free Text) Assessment: 71 y/o female with PMHx of HTN, T2DM, Hypothyroidsm, Depression, Multiple myeloma, and COPD who present to the ED with c/o diarrhea x 5 days and lightheadedness admitted for Dehydration and Electrolyte imbalances at this time with Mild Hyponatremia, Hypokalemia, and Hypocalcemia. Plan: Dehydartion likely 2/2 diarrhea with mild hyponatremia -Will continue with gentle hydration with IVF NS 100 ml/hr -Hold Torsemide for now 2/2 dehydration and electrolyte I -F/u CMP Hypocalcemia -Ca 5.8 mg/dl -Admit to MEd/surg -Calcium cl 341 mg/ 100 ml NS x1 dose given -Patient is on Revlimind, will hold for now -Repeat CMP at 16:00 -Continue home meds: Vit D+ Ca Hypokalemia -K 3.1 MMol/L -Admit to med/surg -KCl 40 mEq PO x 1, the continue with KCl 20 mEq PO -f/u repeat CMP -Magensium S 2G IV X1 given, then continue with Magnesum Ox 400 PO BID. T2DM - chronic, controlled -Heart healthy diet/diabetic diet -Will continue diabetic home medications: Insulin Levemir 14 units SC HS, Insulin Novolog 5 units SC TID AC meals, Metformin 500mg PO BID -Atorvastatin 20 POQHS -Insulin coverage as per SS - hypoglycemia protocol in place HTN - chronic, controlled - metoprolol 25 PO BID -Enalapril 2.5 PO QD -Torsemide on hold for now due to dehydration. - continue with Aspirin 81 mg PO QD - monitor BP Multiple Myeloma -VElcade -Revlimind, on hold due to dehydration and electolyte I -F/u as an outpatient with Dr Vilchis Hypothyroidism - chronic, controlled - continue home medications: Levothyroxine 25 mcg PO QD GERD -Chronic, controlled -omeprazole 20 PO QD -Ranitidine 150 BID, and 300 mg QHS COPD, Pulmonary HTN -Oxigen 2L NC -Dexamethasone 4 mg on mondays -Advair Diskus 1 puff BID -continue CPAP at night -Adempas 2mg PO TID Depression -Chronic, controlled -Outpatient F/u by Dr Chase Miller -Clonazepam 05 PO PRN anxiety -EScitalopram 10 POQD -Aripiprazole 2 PO QD -Buspar 10 PO BID DVT Prophylaxis -Heparin 5000 SC Q8h Code Status Full code
[2017-11-17] MEDS ORDERED: Calcium Chloride 1000 mg/10 ml Syringe IV ONE (13:44)
[2017-11-17] MEDS ORDERED: PROPARACAINE/FLUORESCEIN SOD 100 DROP/5 ML BOTTLE OU STA (13:46)
[2017-11-17] MEDS ORDERED: SODIUM CHLORIDE 0.9% IV ONE ×2 (14:00→20:30)
[2017-11-17] MEDS ORDERED: CALCIUM CHLORIDE IV ONE ×2 (14:00→20:30)
[2017-11-17] MEDS: Sodium Chloride 0.9% 1,000 ML IV SCH (14:01)
[2017-11-17] MEDS ORDERED: Dextrose 50% SYRINGE Inj (50 ml) IV PRN (14:58)
[2017-11-17] MEDS ORDERED: Glucagon Recombinant 1 mg Inj IM PRN (14:58)
[2017-11-17] MEDS ORDERED: raNITIdine HCl 150 mg/10 ml Soln Cup PO SCH (17:00)
[2017-11-17] MEDS: Insulin Lispro (humaLOG) 100 Units/ml Inj SC SCH ×3 (18:00→21:17)
[2017-11-17] MEDS: Magnesium Oxide 400 mg Tab UD PO SCH (18:08)
[2017-11-17] MEDS: Calcium-Vit D 500 mg-200 Units Tab UD PO SCH (18:09)
[2017-11-17 18:41] LABS: ALB/GLOB RATIO 1.2 (1.0-2.1); ALBUMIN 3.1 g/dL (3.5-5.0)
[2017-11-17 18:51] LABS: CALCIUM 5.8 mg/dL (8.4-10.2)
[2017-11-17] MEDS ORDERED: Levalbuterol 0.63 MG/3 ML Inhal Soln UD INH PRN (19:46)
[2017-11-17] MEDS ORDERED: Calcium Gluconate 4.65 mEq/10 ml Inj IV ONE (20:13)
[2017-11-17] MEDS: Fluticasone-Salmeterol 250-50mcg Diskus IH SCH (20:38)
[2017-11-17] MEDS: Insulin Detemir 100 Units/ml Inj SC SCH (21:18)
[2017-11-17] MEDS ORDERED: Insulin Detemir 100 Units/ml Inj SC SCH (22:00)
[2017-11-18 05:49] LABS: CALCIUM 5.5 mg/dL (8.4-10.2)
[2017-11-18] MEDS ORDERED: Calcium Gluconate 4.65 mEq/10 ml Inj IV ONE (06:01)
[2017-11-18] MEDS ORDERED: Levothyroxine 25 MCG TAB PO SCH (06:30)
[2017-11-18] MEDS ORDERED: Calcium Chloride 1000 mg/10 ml Syringe IV ONE (06:30)
[2017-11-18] MEDS: Sodium Chloride 0.9% 1,000 ML IV SCH ×2 (06:36→10:55)
[2017-11-18] MEDS: Fluticasone-Salmeterol 250-50mcg Diskus IH SCH ×2 (08:54→21:34)
[2017-11-18] MEDS: Calcium-Vit D 500 mg-200 Units Tab UD PO SCH ×2 (08:55→16:36)
[2017-11-18] MEDS: Magnesium Oxide 400 mg Tab UD PO SCH ×2 (08:57→16:35)
[2017-11-18] MEDS: Insulin Lispro (humaLOG) 100 Units/ml Inj SC SCH ×6 (08:57→21:43)
[2017-11-18] MEDS ORDERED: Magnesium Sulfate 2 GM in Sodium Chloride 0.9% 100 ML IVPB ONE (09:06)
[2017-11-18] MEDS ORDERED: Potassium Chloride 20 mEq ER Tab PO ONE (09:12)
[2017-11-18] MEDS ORDERED: Magnesium Sulfate 2 gm/50 ml 2 GM/50 ML BAG IVPB ONE (10:00)
[2017-11-18] MEDS: Pantoprazole 20 mg EC Tab PO SCH (10:12)
--- NOTE | 2017-11-18 10:30 | CP.PCM.PN ---
Subjective - Date & Time of Evaluation Date of Evaluation: 11/18/17 Time of Evaluation: 09:10 - Subjective Subjective: Patient seen this morning at bedside, states feeling better today compared to yesterday and reports that her diarrhea has improved, denies POLK, chest pain, SOB , palpitations. Patient c/o pain in the toes ongoing for approximately 3 days, tender to ROM and to touch of toes. The daughter is at bedside and reports to me that Revlimind caused similar side effects of diarrhea and hypocalcemia to her mother approximately 2 y/a when she took it at a higher dose of 25mg, patient was using now 5mg po QD x 28 day ordered by oncology-hematlogy Dr Vilchis( now on hold). Objective - Vital Signs/Intake and Output Vital Signs (last 24 hours): Temp Pulse Resp BP Pulse Ox 97.7 F 94 H 20 123/62 98 11/18/17 08:23 11/18/17 08:23 11/18/17 08:23 11/18/17 08:23 11/18/17 08:23 Intake and Output: 11/18/17 11/18/17 06:59 18:59 Intake Total 1000 Balance 1000 - Medications Medications: Current Medications Aripiprazole (Abilify) 5 mg PO HS [facility] Last Admin: 11/17/17 21:06 Dose: 5 mg Aspirin (Ecotrin) 81 mg PO DAILY [facility] Last Admin: 11/18/17 08:56 Dose: 81 mg Atorvastatin Calcium (Lipitor) 20 mg PO HS [facility] Last Admin: 11/17/17 21:06 Dose: 20 mg Benztropine Mesylate (Cogentin) 1 mg PO HS [facility] Last Admin: 11/17/17 21:05 Dose: 1 mg Buspirone HCl (Buspar) 10 mg PO Q12 [facility] Last Admin: 11/18/17 08:56 Dose: 10 mg Calcium/Vitamin D (Oyster Shell Calcium/Vitamin D 500 Mg-200 Iu) 1 tab PO BID [facility] Last Admin: 11/18/17 08:55 Dose: 1 tab Clonazepam (Klonopin) 0.5 mg PO DAILY PRN PRN Reason: Anxiety Dextrose (Dextrose 50% Inj) 0 ml IV STAT PRN; Protocol PRN Reason: Hypoglycemia Protocol Dextrose (Glutose 15) 0 gm PO ONCE PRN; Protocol PRN Reason: Hypoglycemia Protocol Enalapril Maleate (Vasotec) 2.5 mg PO DAILY [facility] Last Admin: 11/18/17 08:55 Dose: 2.5 mg Escitalopram Oxalate (Lexapro) 10 mg PO HS [facility] Last Admin: 11/17/17 21:05 Dose: 10 mg Ferrous Sulfate (Feosol) 325 mg PO DAILY [facility] Last Admin: 11/18/17 08:56 Dose: 325 mg Glucagon (Glucagen Diagnostic Kit) 0 mg IM STAT PRN; Protocol PRN Reason: Hypoglycemia Protocol Heparin Sodium (Porcine) (Heparin) 5,000 units SC Q8 [facility] PRN Reason: Protocol Last Admin: 11/18/17 08:55 Dose: 5,000 units Home Med (Riociguat [Adempas]) 2 mg PO TID [facility] Hydrocortisone (Cortef) 10 mg PO [facility] Last Admin: 11/17/17 21:05 Dose: 10 mg Sodium Chloride (Sodium Chloride 0.9%) 1,000 mls @ 100 mls/hr IV .Q10H [facility] Last Admin: 11/18/17 06:36 Dose: 100 mls/hr Magnesium Sulfate (Magnesium Sulfate 2 Gm/50 Ml Water) 2 gm in 50 mls @ 50 mls/ hr IVPB ONCE ONE PRN Reason: 2 GM/HR Stop: 11/18/17 10:59 Insulin Detemir (Levemir) 10 units SC [facility] Last Admin: 11/17/17 21:18 Dose: Not Given Insulin Human Lispro (Humalog) 5 units SC TID [facility] Last Admin: 11/18/17 08:57 Dose: Not Given Insulin Human Lispro (Humalog) 0 units SC ACHS [facility] PRN Reason: Protocol Last Admin: 11/18/17 08:57 Dose: Not Given Levalbuterol HCl (Xopenex) 0.63 mg INH RQ8 PRN PRN Reason: Shortness of Breath Levothyroxine Sodium (Synthroid) 25 mcg PO DAILY@0630 [facility] Last Admin: 11/18/17 05:44 Dose: 25 mcg Magnesium Oxide (Mag-Ox) 400 mg PO BID [facility] Last Admin: 11/18/17 08:57 Dose: 400 mg Metoprolol Tartrate (Lopressor) 25 mg PO Q12 [facility] Pantoprazole Sodium (Protonix Ec Tab) 20 mg PO DAILY [facility] Last Admin: 11/18/17 10:12 Dose: Not Given Fluticasone/Salmeterol (Advair Diskus 250/50) 1 puff IH Q12 [facility] Last Admin: 11/18/17 08:54 Dose: 1 puff Torsemide (Demadex) 20 mg PO DAILY [facility] - Labs Labs: 11/17/17 09:43 11/18/17 05:24 - Constitutional Appears: Non-toxic, No Acute Distress - Head Exam Head Exam: NORMOCEPHALIC - Eye Exam Eye Exam: EOMI, PERRL - ENT Exam ENT Exam: Mucous Membranes Moist - Neck Exam Neck Exam: Full ROM - Respiratory Exam Respiratory Exam: Decreased Breath Sounds, Wheezes Additional comments: some wheezing on b/l lung lee (likely 2/2 severe COPD) - Cardiovascular Exam Cardiovascular Exam: REGULAR RHYTHM, +S1, +S2 - GI/Abdominal Exam GI & Abdominal Exam: Tenderness, Normal Bowel Sounds Additional comments: mild diffuse tenderness to palpation of LLQ and L flank - Extremities Exam Extremities Exam: Pedal Edema Additional comments: +2 There is tenderness to palpataion of metatarsal area of Left foot toes 2nd to 4th, no swelling or erythema noted - Neurological Exam Neurological Exam: Alert, Awake, Oriented x3 - Psychiatric Exam Psychiatric exam: Normal Affect, Normal Mood - Skin Skin Exam: Pallor, Warm Assessment and Plan - Assessment and Plan (Free Text) Assessment: This is a 71 y/o female with PMHx of multiple comorbidities including HTN, T2DM , Hypothyroidsm, Depression, Multiple myeloma, and COPD who presented to the ED with c/o diarrhea x 5 days and lightheadedness and is admitted for Dehydration and multiple Electrolyte imbalances: Hypokalemia, Hypocalcemia and hypomagnesemia. Plan: Dehydartion likely 2/2 diarrhea -Improved -mild hyponatremia resolved -No reports of diarrhea, -11/18 Na 133 WNL, BUN 21, creat 1.1 -Will continue with gentle hydration with IVF NS 100 ml/hr -Hold Torsemide for now 2/2 dehydration and electrolyte I -F/u CMP Hypocalcemia -Ca 5.8 mg/dl on 11/17, Ca 5.5 mg/dl 11/18 -Telemetry monitoring -Calcium cl 341 mg/ 100 ml NS x 3 doses -Patient is on Revlimind, will hold for now given prior hx of side effects on the patient that includes hypocalcemia. -f/u CMP and electrolytes -iPTH ordered, pending results -Ionized Ca ordered -Continue home meds: Vit D+ Ca -Consult Cinema Or Theatre Manager Dr No, recommendations appreciated Hypokalemia -improved-K 3.4 MMol/L -Telemetry monitoring -KCl 40 mEq PO x 1 dose -f/u repeat CMP to recheck K -Magnesium S 2G IV -Magnesium Ox 400 PO BID. Hypomagnesemia -Mg 1.2 -Magensium S 2G IV g given -Magnesium Ox 400 PO BID. -Endocrinology consult by Dr No T2DM - chronic, controlled -Heart healthy diet/diabetic diet -Will continue diabetic home medications: Insulin Levemir 14 units SC HS, Insulin Novolog 5 units SC TID AC meals, Metformin 500mg PO BID -Atorvastatin 20 POQHS -Insulin coverage as per SS - hypoglycemia protocol in place HTN - chronic, controlled - metoprolol 25 PO BID -Enalapril 2.5 PO QD -Torsemide on hold for now due to dehydration. - continue with Aspirin 81 mg PO QD - monitor BP Multiple Myeloma -VElcade -Revlimind, on hold due to dehydration and electolyte I -F/u as an outpatient with Dr Vilchis Left foot toes pain -Unclear of cause, likely 2/2 neuropahy secondary to T2DM vs hairline fracture vs gout/elevated uric acid given patient is on antitumoral agents( velcade, Revlimind) -Uric acid level, pending results -Podiatry consult by Dr Peoples, recommendation appreciated. Hypothyroidism - chronic, controlled - continue home medications: Levothyroxine 25 mcg PO QD GERD -Chronic, controlled -omeprazole 20 PO QD -Ranitidine 150 BID, and 300 mg QHS COPD, Pulmonary HTN -Oxigen 2L NC -Dexamethasone 4 mg on mondays -Advair Diskus 1 puff BID -continue CPAP at night -Adempas 2mg PO TID Depression -Chronic, controlled -Outpatient F/u by Dr Chase Miller -Clonazepam 05 PO PRN anxiety -EScitalopram 10 POQD -Aripiprazole 2 PO QD -Buspar 10 PO BID DVT Prophylaxis -Heparin 5000 SC Q8h Code Status Full code
[2017-11-18] MEDS: RIOCIGUAT 2 MG PO SCH ×3 (12:25→16:35)
[2017-11-18 14:10] LABS: ALB/GLOB RATIO 1.2 (1.0-2.1); ALBUMIN 3.1 g/dL (3.5-5.0); ALT/SGPT 122 U/L (9-52); AST/SGOT 163 U/L (14-36); BLOOD UREA NITROGEN 17 mg/dl (7-17); CALCIUM 6.5 mg/dL (8.4-10.2); GFR NON-AFRICAN AMERICAN > 60; URIC ACID 9.1 mg/Dl (2.2-7.5)
[2017-11-18] MEDS: MethylPREDNISolone 40 mg Vial IVP SCH (15:00)
--- NOTE | 2017-11-18 15:03 | RAD ---
HISTORY: COMPARISON: 09/02/2017 TECHNIQUE: Chest PA and lateral FINDINGS: LINES AND TUBES: None. LUNG AND PLEURA: The lungs are well inflated and clear. No pleural effusion or pneumothorax. HEART AND MEDIASTINUM: The heart is not enlarged. The hilar and mediastinal contours are within normal limits. SKELETAL STRUCTURES: The bony structures are within normal limits for the patient's age. VISUALIZED UPPER ABDOMEN: Normal. OTHER FINDINGS: None. IMPRESSION: No active pulmonary disease.
--- NOTE | 2017-11-18 15:32 | CP.PCM.CON ---
History of Present Illness - History of Present Illness History of Present Illness: 71 yo presents for chronic diarrhea and dizziness seen and evaluated at bedside for left toe pain. States that she has been having this pain for the past 5 days. States that the pain is worse when she walks. States that she has custom shoes that she normally wears outside the hospital. States the pain is only at the tips of the first three toes on her left foot and at the ball of the foot. Denies N/V/F/C today and has no other pedal complaints PMHx COPD, multiple myeloma, CHF, DVT PSHx left ankle fracture, cholecystectomy All Codeine Past Patient History - Infectious Disease Hx of Infectious Diseases: None - Tetanus Immunizations Tetanus Immunization: Unknown - Past Medical History & Family History Past Medical History?: Yes - Past Social History Alcohol: None Drugs: Denies - CARDIAC Hx Congestive Heart Failure: Yes Hx Hypercholesterolemia: Yes Hx Hypertension: Yes - PULMONARY Hx Asthma: Yes Hx Chronic Obstructive Pulmonary Disease (COPD): Yes Hx Emphysema: Yes Hx Pneumonia: Yes Hx Pulmonary Embolism: Yes Hx Sleep Apnea: Yes - NEUROLOGICAL Hx Migraine: Yes Hx Parkinson's Disease: Yes - HEENT Hx Deafness: Yes - RENAL Hx Chronic Kidney Disease: No - ENDOCRINE/METABOLIC Hx Hypothyroidism: Yes - HEMATOLOGICAL/ONCOLOGICAL Hx Anemia: Yes Hx Human Immunodeficiency Virus (HIV): No - INTEGUMENTARY Hx Dermatological Problems: No - MUSCULOSKELETAL/RHEUMATOLOGICAL Hx Arthritis: Yes Hx Fractures: Yes Hx Rheumatoid Arthritis: Yes - GASTROINTESTINAL Hx Gastrointestinal Disorders: No - GENITOURINARY/GYNECOLOGICAL Hx Genitourinary Disorders: Yes Hx Incontinence: Yes - PSYCHIATRIC Hx Anxiety: Yes Hx Depression: Yes - SURGICAL HISTORY Hx Cholecystectomy: Yes Hx Tonsillectomy: Yes - ANESTHESIA Hx Anesthesia: Yes Hx Anesthesia Reactions: Yes (Resp. Distress) Hx Malignant Hyperthermia: No Meds Allergies/Adverse Reactions: Allergies Allergy/AdvReac Type Severity Reaction Status Date / Time codeine AdvReac syncope, Verified 11/17/17 08:57 diaphoresis - Medications Medications: Current Medications Aripiprazole (Abilify) 5 mg PO HS [facility] Last Admin: 11/17/17 21:06 Dose: 5 mg Aspirin (Ecotrin) 81 mg PO DAILY [facility] Last Admin: 11/18/17 08:56 Dose: 81 mg Atorvastatin Calcium (Lipitor) 20 mg PO HS [facility] Last Admin: 11/17/17 21:06 Dose: 20 mg Benztropine Mesylate (Cogentin) 1 mg PO HS [facility] Last Admin: 11/17/17 21:05 Dose: 1 mg Buspirone HCl (Buspar) 10 mg PO Q12 [facility] Last Admin: 11/18/17 08:56 Dose: 10 mg Calcitriol (Rocaltrol) 0.5 mcg PO BID [facility] Calcium/Vitamin D (Oyster Shell Calcium/Vitamin D 500 Mg-200 Iu) 1 tab PO BID [facility] Last Admin: 11/18/17 08:55 Dose: 1 tab Clonazepam (Klonopin) 0.5 mg PO DAILY PRN PRN Reason: Anxiety Dextrose (Dextrose 50% Inj) 0 ml IV STAT PRN; Protocol PRN Reason: Hypoglycemia Protocol Dextrose (Glutose 15) 0 gm PO ONCE PRN; Protocol PRN Reason: Hypoglycemia Protocol Enalapril Maleate (Vasotec) 2.5 mg PO DAILY [facility] Last Admin: 11/18/17 08:55 Dose: 2.5 mg Escitalopram Oxalate (Lexapro) 10 mg PO [facility] Last Admin: 11/17/17 21:05 Dose: 10 mg Ferrous Sulfate (Feosol) 325 mg PO DAILY [facility] Last Admin: 11/18/17 08:56 Dose: 325 mg Glucagon (Glucagen Diagnostic Kit) 0 mg IM STAT PRN; Protocol PRN Reason: Hypoglycemia Protocol Heparin Sodium (Porcine) (Heparin) 5,000 units SC Q8 [facility] PRN Reason: Protocol Last Admin: 11/18/17 08:55 Dose: 5,000 units Home Med (Riociguat [Adempas]) 2 mg PO TID [facility] Last Admin: 11/18/17 14:11 Dose: Not Given Hydrocortisone (Cortef) 10 mg PO [facility] Last Admin: 11/17/17 21:05 Dose: 10 mg Sodium Chloride (Sodium Chloride 0.9%) 1,000 mls @ 100 mls/hr IV .Q10H [facility] Last Admin: 11/18/17 10:55 Dose: 100 mls/hr Insulin Detemir (Levemir) 10 units SC [facility] Last Admin: 11/17/17 21:18 Dose: Not Given Insulin Human Lispro (Humalog) 0 units SC ACHS [facility] PRN Reason: Protocol Insulin Human Lispro (Humalog) 4 units SC AC [facility] Ipratropium [place] (Atrovent) 0.5 mg IH RQ8 [facility] Levalbuterol HCl (Xopenex) 0.63 mg INH RQ8 [facility] Levothyroxine Sodium (Synthroid) 50 mcg PO DAILY@0630 [facility] Magnesium Oxide (Mag-Ox) 400 mg PO BID [facility] Last Admin: 11/18/17 08:57 Dose: 400 mg Methylprednisolone (Solu-Medrol) 40 mg IVP Q12H [facility] Metoprolol Tartrate (Lopressor) 25 mg PO Q12 [facility] Last Admin: 11/18/17 10:51 Dose: 25 mg Pantoprazole Sodium (Protonix Ec Tab) 20 mg PO DAILY [facility] Last Admin: 11/18/17 10:12 Dose: Not Given Fluticasone/Salmeterol (Advair Diskus 250/50) 1 puff IH Q12 [facility] Last Admin: 11/18/17 08:54 Dose: 1 puff Torsemide (Demadex) 20 mg PO DAILY [facility] Physical Exam - Constitutional Appears: Well, Non-toxic, No Acute Distress - Head Exam Head Exam: ATRAUMATIC, NORMOCEPHALIC - Extremities Exam Additional comments: Bilateral lower extremity exam: Vasc: DP and PT pulses 2/4 b/l; temp gradient warm to cool from proximal to distal; cap refill <3 seconds to all digits; no edema present Derm: skin temp and turgor within normal limits; no hyperkeratotic lesions present; no open lesions present; nails are not dystrophic or mycotic Ortho: hammering of second through fourth digit b/l; limited ROM at the ankle and first MPJ b/l; MMT 4/5 b/l Neuro: protective sensation diminished via ipswich - Neurological Exam Neurological exam: Alert, Oriented x3 - Psychiatric Exam Psychiatric exam: Normal Affect, Normal Mood Results - Vital Signs Recent Vital Signs: Last Vital Signs Temp 97.9 F 11/18/17 12:21 Pulse 82 11/18/17 12:21 Resp 20 11/18/17 12:21 BP 92/50 L 11/18/17 12:21 Pulse Ox 97 11/18/17 12:21 - Labs Result Diagrams: 11/17/17 09:43 11/19/17 08:10 Labs: Laboratory Results - last 24 hr 11/17/17 11/17/17 11/17/17 17:01 17:07 17:50 Sodium 132 Potassium 3.4 L Chloride 94 L Carbon Dioxide 28 Anion Gap 13 BUN 24 H Creatinine 1.1 Est GFR ( Amer) 59 Est GFR (Non-Af Amer) 49 POC Glucose (mg/dL) 86 Random Glucose 90 Uric Acid Calcium 5.8 L* Phosphorus 4.5 Magnesium 1.2 L Total Bilirubin 0.5 AST 183 H ALT 130 H Alkaline Phosphatase 231 H Total Protein 5.6 L Albumin 3.1 L Globulin 2.5 Albumin/Globulin Ratio 1.2 Free T4 TSH 3rd Generation 11/17/17 11/17/17 11/18/17 20:28 21:21 05:22 Sodium Potassium Chloride Carbon Dioxide Anion Gap BUN Creatinine Est GFR ( Amer) Est GFR (Non-Af Amer) POC Glucose (mg/dL) 54 L 79 108 Random Glucose Uric Acid Calcium Phosphorus Magnesium Total Bilirubin AST ALT Alkaline Phosphatase Total Protein Albumin Globulin Albumin/Globulin Ratio Free T4 TSH 3rd Generation 11/18/17 11/18/17 11/18/17 05:24 09:30 09:30 Sodium 133 Potassium 3.5 L Chloride 97 L Carbon Dioxide 25 Anion Gap 15 BUN 21 H Creatinine 1.1 Est GFR ( Amer) 59 Est GFR (Non-Af Amer) 49 POC Glucose (mg/dL) Random Glucose 118 H Uric Acid Calcium 5.5 L* Phosphorus 4.5 Magnesium 1.2 L Total Bilirubin AST ALT Alkaline Phosphatase Total Protein Albumin Globulin Albumin/Globulin Ratio Free T4 0.30 L TSH 3rd Generation 8.91 H 11/18/17 11/18/17 11:03 13:30 Sodium 133 Potassium 4.2 Chloride 99 Carbon Dioxide 26 Anion Gap 12 BUN 17 Creatinine 0.9 Est GFR ( Amer) > 60 Est GFR (Non-Af Amer) > 60 POC Glucose (mg/dL) 159 H Random Glucose 146 H Uric Acid 9.1 H Calcium 6.5 L Phosphorus Magnesium 2.0 Total Bilirubin 0.4 AST 163 H ALT 122 H Alkaline Phosphatase 235 H Total Protein 5.7 L Albumin 3.1 L Globulin 2.6 Albumin/Globulin Ratio 1.2 Free T4 TSH 3rd Generation Assessment & Plan - Assessment and Plan (Free Text) Assessment: 71 yo with pmhx of multiple myeloma COPD and diabetes seen and evaluated at bedside for pain in left first three toes Plan: Patient seen and chart reviewed History and plan discussed in detail with the attending, Dr. Cruz X-rays ordered and reviewed; no osseous changes noted, no fractures Patient educated on signs and symptoms of diabetic peripheral neuropathy Patient advised to check her feet daily due to lack of sensation Patient advised to maintain her glucose level and limit her sugar intake Patient advised to follow up with Dr. Cruz as outpatient after discharged. Patient showed verbal understanding Please consult podiatry again if needed. Thank you for the consult
[2017-11-18] MEDS: Levalbuterol 0.63 MG/3 ML Inhal Soln UD INH SCH ×2 (15:34→23:39)
[2017-11-18] MEDS: Ipratropium 0.02% Inhal Soln (0.5 mg/2.5 ml) UD IH SCH ×2 (15:34→23:38)
--- NOTE | 2017-11-18 17:30 | RAD ---
Date of service: 11/18/2017 PROCEDURE: Left Foot Radiographs. HISTORY: left 1-3 toe pain COMPARISON: None. FINDINGS: BONES: No acute fractures. Orthopedic hardware identified distal tibia and fibula. JOINTS: Multiple hammertoe deformities. SOFT TISSUES: Normal. OTHER FINDINGS: None. IMPRESSION: No acute findings related to/accounting for the clinical presentation.
[2017-11-18] MEDS ORDERED: methylPREDNISolone 40 MG in Sodium Chloride 0.9% 50 ML IVPB SCH (21:00)
[2017-11-18] MEDS: Insulin Detemir 100 Units/ml Inj SC SCH (21:39)
--- NOTE | 2017-11-18 22:30 | CP.PCM.CON ---
History of Present Illness - History of Present Illness History of Present Illness: Ms. 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 The patient reports to watery diarrhea for the past few days with associated fatigue and feeling light headed. Her daughter brought her to the ER and she was found to have have low magnesium and calcium and has been on supplementation. She was felt to have electrolyte abnormalities in the past related to Revlimid. She was recently restarted on dose reduced Revlimid. Past medical history: type II DM, hypertension, COPD, sleep apnea with pulmonary hypertension, multiple myeloma with lytic bone lesions. Past surgical history: None Family history: Denies hematologic and oncologic problems. Social history: Denies tobacco, alcohol, and illicit drug use. Allergies: Codeine. Review of systems: All remaining ROS including HEENT, cardiovascular, respiratory, gastrointestinal, genitourinary, musculoskeletal, dermatologic, neurologic, and psychiatric are negative unless mentioned in the HPI. Past Patient History - Infectious Disease Hx of Infectious Diseases: None - Tetanus Immunizations Tetanus Immunization: Unknown - Past Medical History & Family History Past Medical History?: Yes - Past Social History Alcohol: None Drugs: Denies - CARDIAC Hx Congestive Heart Failure: Yes Hx Hypercholesterolemia: Yes Hx Hypertension: Yes - PULMONARY Hx Asthma: Yes Hx Chronic Obstructive Pulmonary Disease (COPD): Yes Hx Emphysema: Yes Hx Pneumonia: Yes Hx Pulmonary Embolism: Yes Hx Sleep Apnea: Yes - NEUROLOGICAL Hx Migraine: Yes Hx Parkinson's Disease: Yes - HEENT Hx Deafness: Yes - RENAL Hx Chronic Kidney Disease: No - ENDOCRINE/METABOLIC Hx Hypothyroidism: Yes - HEMATOLOGICAL/ONCOLOGICAL Hx Anemia: Yes Hx Human Immunodeficiency Virus (HIV): No - INTEGUMENTARY Hx Dermatological Problems: No - MUSCULOSKELETAL/RHEUMATOLOGICAL Hx Arthritis: Yes Hx Fractures: Yes Hx Rheumatoid Arthritis: Yes - GASTROINTESTINAL Hx Gastrointestinal Disorders: No - GENITOURINARY/GYNECOLOGICAL Hx Genitourinary Disorders: Yes Hx Incontinence: Yes - PSYCHIATRIC Hx Anxiety: Yes Hx Depression: Yes - SURGICAL HISTORY Hx Cholecystectomy: Yes Hx Tonsillectomy: Yes - ANESTHESIA Hx Anesthesia: Yes Hx Anesthesia Reactions: Yes (Resp. Distress) Hx Malignant Hyperthermia: No Meds Allergies/Adverse Reactions: Allergies Allergy/AdvReac Type Severity Reaction Status Date / Time codeine AdvReac syncope, Verified 11/17/17 08:57 diaphoresis - Medications Medications: Current Medications Aripiprazole (Abilify) 5 mg PO HS [facility] Last Admin: 11/18/17 21:34 Dose: 5 mg Aspirin (Ecotrin) 81 mg PO DAILY [facility] Last Admin: 11/18/17 08:56 Dose: 81 mg Atorvastatin Calcium (Lipitor) 20 mg PO HS [facility] Last Admin: 11/18/17 21:33 Dose: 20 mg Benztropine Mesylate (Cogentin) 1 mg PO HS [facility] Last Admin: 11/18/17 21:34 Dose: 1 mg Buspirone HCl (Buspar) 10 mg PO Q12 [facility] Last Admin: 11/18/17 21:40 Dose: 10 mg Calcitriol (Rocaltrol) 0.5 mcg PO BID [facility] Last Admin: 11/18/17 16:34 Dose: 0.5 mcg Calcium/Vitamin D (Oyster Shell Calcium/Vitamin D 500 Mg-200 Iu) 1 tab PO BID [facility] Last Admin: 11/18/17 16:36 Dose: 1 tab Clonazepam (Klonopin) 0.5 mg PO DAILY PRN PRN Reason: Anxiety Dextrose (Dextrose 50% Inj) 0 ml IV STAT PRN; Protocol PRN Reason: Hypoglycemia Protocol Dextrose (Glutose 15) 0 gm PO ONCE PRN; Protocol PRN Reason: Hypoglycemia Protocol Enalapril Maleate (Vasotec) 2.5 mg PO DAILY [facility] Last Admin: 11/18/17 08:55 Dose: 2.5 mg Escitalopram Oxalate (Lexapro) 10 mg PO HS [facility] Last Admin: 11/18/17 21:34 Dose: 10 mg Ferrous Sulfate (Feosol) 325 mg PO DAILY [facility] Last Admin: 11/18/17 08:56 Dose: 325 mg Glucagon (Glucagen Diagnostic Kit) 0 mg IM STAT PRN; Protocol PRN Reason: Hypoglycemia Protocol Heparin Sodium (Porcine) (Heparin) 5,000 units SC Q8 [facility] PRN Reason: Protocol Last Admin: 11/18/17 16:36 Dose: 5,000 units Home Med (Riociguat [Adempas]) 2 mg PO TID [facility] Last Admin: 11/18/17 16:35 Dose: 2 mg Hydrocortisone (Cortef) 10 mg PO HS [facility] Last Admin: 11/18/17 21:34 Dose: 10 mg Insulin Detemir (Levemir) 10 units SC HS [facility] Last Admin: 11/18/17 21:39 Dose: 10 units Insulin Human Lispro (Humalog) 0 units SC ACHS [facility] PRN Reason: Protocol Last Admin: 11/18/17 21:43 Dose: Not Given Insulin Human Lispro (Humalog) 4 units SC AC [facility] Last Admin: 11/18/17 16:38 Dose: 4 units Ipratropium [place] (Atrovent) 0.5 mg IH RQ8 [facility] Last Admin: 11/18/17 15:34 Dose: 0.5 mg Levalbuterol HCl (Xopenex) 0.63 mg INH RQ8 [facility] Last Admin: 11/18/17 15:34 Dose: 0.63 mg Levothyroxine Sodium (Synthroid) 50 mcg PO DAILY@0630 [facility] Magnesium Oxide (Mag-Ox) 400 mg PO BID [facility] Last Admin: 11/18/17 16:35 Dose: 400 mg Methylprednisolone (Solu-Medrol) 40 mg IVP Q12H [facility] Last Admin: 11/18/17 15:00 Dose: 40 mg Metoprolol Tartrate (Lopressor) 25 mg PO Q12 [facility] Last Admin: 11/18/17 21:45 Dose: 25 mg Pantoprazole Sodium (Protonix Ec Tab) 20 mg PO DAILY [facility] Last Admin: 11/18/17 10:12 Dose: Not Given Fluticasone/Salmeterol (Advair Diskus 250/50) 1 puff IH Q12 [facility] Last Admin: 11/18/17 21:34 Dose: 1 puff Torsemide (Demadex) 20 mg PO DAILY [facility] Physical Exam - Head Exam Head Exam: ATRAUMATIC - Eye Exam Eye Exam: Normal appearance - ENT Exam ENT Exam: Mucous Membranes Dry - Respiratory Exam Respiratory Exam: NORMAL BREATHING PATTERN - Cardiovascular Exam Cardiovascular Exam: +S1, +S2 - GI/Abdominal Exam GI & Abdominal Exam: Normal Bowel Sounds - Extremities Exam Extremities exam: Positive for: pedal edema - Neurological Exam Neurological exam: Oriented x3 - Psychiatric Exam Psychiatric exam: Normal Affect, Normal Mood - Skin Skin Exam: Warm Results - Vital Signs Recent Vital Signs: Last Vital Signs Temp 97.9 F 11/18/17 19:30 Pulse 73 11/18/17 21:45 Resp 20 11/18/17 19:30 BP 135/65 11/18/17 21:45 Pulse Ox 95 11/18/17 19:30 - Labs Result Diagrams: 11/17/17 09:43 11/18/17 13:30 Labs: Laboratory Results - last 24 hr 11/18/17 11/18/17 11/18/17 05:22 05:24 09:30 Sodium 133 Potassium 3.5 L Chloride 97 L Carbon Dioxide 25 Anion Gap 15 BUN 21 H Creatinine 1.1 Est GFR ( Amer) 59 Est GFR (Non-Af Amer) 49 POC Glucose (mg/dL) 108 Random Glucose 118 H Uric Acid Calcium 5.5 L* Phosphorus 4.5 Magnesium 1.2 L Total Bilirubin AST ALT Alkaline Phosphatase Total Protein Albumin Globulin Albumin/Globulin Ratio Free T4 TSH 3rd Generation 8.91 H Ur Random Calcium 11/18/17 11/18/17 11/18/17 09:30 11:03 13:30 Sodium 133 Potassium 4.2 Chloride 99 Carbon Dioxide 26 Anion Gap 12 BUN 17 Creatinine 0.9 Est GFR ( Amer) > 60 Est GFR (Non-Af Amer) > 60 POC Glucose (mg/dL) 159 H Random Glucose 146 H Uric Acid 9.1 H Calcium 6.5 L Phosphorus Magnesium 2.0 Total Bilirubin 0.4 AST 163 H ALT 122 H Alkaline Phosphatase 235 H Total Protein 5.7 L Albumin 3.1 L Globulin 2.6 Albumin/Globulin Ratio 1.2 Free T4 0.30 L TSH 3rd Generation Ur Random Calcium 11/18/17 11/18/17 14:18 15:33 Sodium Potassium Chloride Carbon Dioxide Anion Gap BUN Creatinine Est GFR ( Amer) Est GFR (Non-Af Amer) POC Glucose (mg/dL) 157 H Random Glucose Uric Acid Calcium Phosphorus Magnesium Total Bilirubin AST ALT Alkaline Phosphatase Total Protein Albumin Globulin Albumin/Globulin Ratio Free T4 TSH 3rd Generation Ur Random Calcium < 1.0 Assessment & Plan (1) Electrolyte abnormality Assessment and Plan: suspect Revlimid related unfortunately persists despite lowest possible dose of Revlimid; will discontinue supplementation per primary team Status: Acute (2) Anemia Assessment and Plan: will check retic count, b12, folate, ferritin to further characterize chronic disease and multiple myeloma Status: Resolved (3) Multiple myeloma Assessment and Plan: outpatient treatment Thank you for this interesting consult. Status: Chronic
[2017-11-19] MEDS: MethylPREDNISolone 40 mg Vial IVP SCH (01:33)
--- NOTE | 2017-11-19 02:55 | CON ---
DATE: 11/18/2017 LOCATION: Room 413. 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 PAST MEDICAL HISTORY: As mentioned above, history of type 2 insulin-requiring diabetes on a combination of Levemir given as 12 units at bedtime with Humalog given as 4 units t.i.d., history of hypertension, cardiovascular disease and dyslipidemia, history of hypothyroidism on levothyroxine given as 25 mcg daily, history of generalized anxiety and depression on psychotropic medications, history of chronic obstructive lung disease with previous admission for exacerbation of the same and is currently on home oxygen therapy as given. She also uses a CPAP as she was also previously diagnosed for obstructive sleep apnea. History of chronic gastritis and GERD. Also history of pulmonary embolism and deep vein thrombosis with a prior IVC filter insertion in 2014. As mentioned above, history of history of multiple myeloma and has been followed very closely with Dr. Vilchis her oncologist and recently was started on Revlimid medication with supervening GI related adverse side tests with abdominal pain and intractable loose watery diarrhea with anorexia and suboptimal meal portions. There is also a reported side effect of hepatotoxicity and the patient's liver enzymes are quite elevated at this admission. FAMILY HISTORY: Positive for diabetes and hypertension. SOCIAL HISTORY: The patient has a supportive family. No known substance use. REVIEW OF SYSTEMS: Admits to generalized body weakness with easy fatigability and tiredness and suboptimal energy level. Also admits to bifrontal headaches with visual blurring and progressive bouts of dizziness and lightheadedness, worse on the day of admission. No chest pains or palpitations, but admits to progressive shortness of breath initially on exertion and then at rest. Also admit to extremely poor and suboptimal oral intake with persistent nausea, dyspepsia and diffuse abdominal pain. Also admits to recent onset of loose watery diarrhea over the last 5 days or so prior to admission. Moreover, also admits to lower extremity paresthesias and lower back pain as noted. PHYSICAL EXAMINATION: GENERAL: This is an overweight female in no apparent distress. VITAL SIGNS: Blood pressure of 140/80, pulse of 100 beats per minute regular, temperature 98, respirations 20, height is 4 feet 10 inches, weight is 175 pounds. HEENT: Head normocephalic. Eyes anicteric with pale conjunctivae. Funduscopy not possible at this time. Ears, nose and throat otherwise normal. NECK: Supple. Thyroid gland is normal size. No carotid bruits or any cervical adenopathy. CARDIOPULMONARY: Some adynamic precordium. S1, S2 are rapid and regular. LUNGS: Clear to auscultation. ABDOMEN: Flat, soft with positive bowel sounds. EXTREMITIES: No peripheral edema. Pulse are +2 bilaterally. LABORATORY DATA: Her chemistries today showed a BUN of 17, sodium 133, potassium 4.2, chloride 99, CO2 26, glucose 146 and creatinine 0.9. Her liver transaminases are elevated as noted. Her calcium level is 6.5 with an albumin level of 3.1 and a corrected calcium of 7.4 mg/dL. Her initial calcium level was 5.8 mg/dL. ASSESSMENT: This is a 71-year-old female with overt symptomatic hypocalcemia most likely related to recent intractable diarrhea with a malabsorption picture most likely from the adverse effects to her ongoing immunotherapy for multiple myeloma as given. Review of her previous admissions showed that she had normal calcium levels at that time. Moreover, she also has uncontrolled type 2 insulin-requiring diabetes with improved glycemic profile on a very low dose basal and bolus insulin because of suboptimal meal portions as noted. She also has known history of secondary hypoadrenalism or adrenal insufficiency related to the ongoing steroid therapy for management of multiple myeloma and she has remained euadrenal over the past admission and also with this current admission as noted. Moreover, she also has overt early hypothyroidism currently on the levothyroxine replacement therapy as given and most likely related to underlying autoimmune thyroiditis. PLAN OF MANAGEMENT: We will continue the IV calcium chloride infusion as given and if the calcium levels are improving with replacement infusion therapy, especially with a corrected low albumin levels, then we will hold off further calcium infusion and instead add vitamin D analogues with calcitriol given as 0.5 mcg b.i.d. to start today. We will continue the ongoing calcium and vitamin D supplementation as ordered and obtain serial chemistries and supplement accordingly as needed. We will also titrate her levothyroxine accordingly to optimize metabolic control. We will also modify her current insulin regimen because of the suboptimal meal portions and also modify the coverage scale to a much less coverage to obviate hypoglycemia and detailed orders have been given. We will lower the Humalog to 4 units subcu t.i.d. before meals and continue the basal insulin with Levemir given as 10 units subcu at bedtime daily as ordered. We will obtain a parathyroid hormone intact level and repeat the serum cortisol and ACTH level tomorrow. We will also obtain serial chemistries and add phosphorus and magnesium levels and also a 25 hydroxyvitamin D level as ordered. We will follow. Irene Mann MD
[2017-11-19 05:40] LABS: ALB/GLOB RATIO 1.2 (1.0-2.1); ALBUMIN 3.3 g/dL (3.5-5.0); ALT/SGPT 114 U/L (9-52); AST/SGOT 126 U/L (14-36); BLOOD UREA NITROGEN 17 mg/dl (7-17); CALCIUM 6.4 mg/dL (8.4-10.2); GFR NON-AFRICAN AMERICAN > 60
[2017-11-19] MEDS ORDERED: Sod Polystyrene Sulf 15 gm/60 ml Susp PO ONE (06:31)
[2017-11-19] MEDS: Insulin Lispro (humaLOG) 100 Units/ml Inj SC SCH ×7 (06:32→23:12)
[2017-11-19] MEDS: Levothyroxine 50 MCG TAB PO SCH (06:34)
[2017-11-19] MEDS: Ipratropium 0.02% Inhal Soln (0.5 mg/2.5 ml) UD IH SCH ×3 (08:23→23:30)
[2017-11-19] MEDS: Levalbuterol 0.63 MG/3 ML Inhal Soln UD INH SCH ×3 (08:24→23:30)
[2017-11-19] MEDS: Fluticasone-Salmeterol 250-50mcg Diskus IH SCH ×2 (08:47→22:13)
[2017-11-19] MEDS: Calcium-Vit D 500 mg-200 Units Tab UD PO SCH (08:48)
[2017-11-19] MEDS: Magnesium Oxide 400 mg Tab UD PO SCH ×2 (08:48→17:25)
[2017-11-19] MEDS: Pantoprazole 20 mg EC Tab PO SCH (08:49)
[2017-11-19 08:50] LABS: BLOOD UREA NITROGEN 17 mg/dl (7-17); CALCIUM 6.4 mg/dL (8.4-10.2); GFR NON-AFRICAN AMERICAN > 60
[2017-11-19] MEDS: RIOCIGUAT 2 MG PO SCH ×3 (08:51→18:19)
[2017-11-19] MEDS ORDERED: MethylPREDNISolone 40 mg Vial IVP SCH (09:00)
--- NOTE | 2017-11-19 09:03 | CP.PCM.PN ---
Subjective - Date & Time of Evaluation Date of Evaluation: 11/19/17 Time of Evaluation: 07:40 - Subjective Subjective: Patient seen this AM at bedside, NAD, denies POLK, chest pain, palpitations, abdominal pain, N/V. Patient reports that her SOB is improved compared to yesterday and she is able now to have a conversation with me off the O2 for few minutes. Objective - Vital Signs/Intake and Output Vital Signs (last 24 hours): Temp Pulse Resp BP Pulse Ox 97.7 F 95 H 18 108/76 95 11/19/17 08:00 11/19/17 08:48 11/19/17 08:00 11/19/17 08:48 11/19/17 08:00 - Medications Medications: Current Medications Aripiprazole (Abilify) 5 mg PO HS [facility] Last Admin: 11/18/17 21:34 Dose: 5 mg Aspirin (Ecotrin) 81 mg PO DAILY [facility] Last Admin: 11/19/17 08:51 Dose: 81 mg Atorvastatin Calcium (Lipitor) 20 mg PO HS [facility] Last Admin: 11/18/17 21:33 Dose: 20 mg Benztropine Mesylate (Cogentin) 1 mg PO HS [facility] Last Admin: 11/18/17 21:34 Dose: 1 mg Buspirone HCl (Buspar) 10 mg PO Q12 [facility] Last Admin: 11/19/17 08:50 Dose: 10 mg Calcitriol (Rocaltrol) 0.5 mcg PO BID [facility] Last Admin: 11/19/17 08:49 Dose: 0.5 mcg Calcium/Vitamin D (Oyster Shell Calcium/Vitamin D 500 Mg-200 Iu) 1 tab PO BID [facility] Last Admin: 11/19/17 08:48 Dose: 1 tab Clonazepam (Klonopin) 0.5 mg PO DAILY PRN PRN Reason: Anxiety Dextrose (Dextrose 50% Inj) 0 ml IV STAT PRN; Protocol PRN Reason: Hypoglycemia Protocol Dextrose (Glutose 15) 0 gm PO ONCE PRN; Protocol PRN Reason: Hypoglycemia Protocol Enalapril Maleate (Vasotec) 2.5 mg PO DAILY [facility] Last Admin: 11/18/17 08:55 Dose: 2.5 mg Escitalopram Oxalate (Lexapro) 10 mg PO HS [facility] Last Admin: 11/18/17 21:34 Dose: 10 mg Ferrous Sulfate (Feosol) 325 mg PO DAILY [facility] Last Admin: 11/19/17 08:50 Dose: 325 mg Glucagon (Glucagen Diagnostic Kit) 0 mg IM STAT PRN; Protocol PRN Reason: Hypoglycemia Protocol Heparin Sodium (Porcine) (Heparin) 5,000 units SC Q8 [facility] PRN Reason: Protocol Last Admin: 11/19/17 08:46 Dose: 5,000 units Home Med (Riociguat [Adempas]) 2 mg PO TID [facility] Last Admin: 11/19/17 08:51 Dose: 2 mg Hydrocortisone (Cortef) 10 mg PO HS [facility] Last Admin: 11/18/17 21:34 Dose: 10 mg Insulin Detemir (Levemir) 10 units SC HS [facility] Last Admin: 11/18/17 21:39 Dose: 10 units Insulin Human Lispro (Humalog) 0 units SC ACHS [facility] PRN Reason: Protocol Last Admin: 11/19/17 06:32 Dose: Not Given Insulin Human Lispro (Humalog) 4 units SC AC [facility] Last Admin: 11/19/17 08:47 Dose: 4 units Ipratropium [place] (Atrovent) 0.5 mg IH RQ8 [facility] Last Admin: 11/19/17 08:23 Dose: 0.5 mg Levalbuterol HCl (Xopenex) 0.63 mg INH RQ8 [facility] Last Admin: 11/19/17 08:24 Dose: 0.63 mg Levothyroxine Sodium (Synthroid) 50 mcg PO DAILY@0630 [facility] Last Admin: 11/19/17 06:34 Dose: 50 mcg Magnesium Oxide (Mag-Ox) 400 mg PO BID [facility] Last Admin: 11/19/17 08:48 Dose: 400 mg Methylprednisolone (Solu-Medrol) 40 mg IVP DAILY [facility] Last Admin: 11/19/17 08:46 Dose: 40 mg Metoprolol Tartrate (Lopressor) 25 mg PO Q12 [facility] Last Admin: 11/19/17 08:48 Dose: 25 mg Pantoprazole Sodium (Protonix Ec Tab) 20 mg PO DAILY [facility] Last Admin: 11/19/17 08:49 Dose: 20 mg Fluticasone/Salmeterol (Advair Diskus 250/50) 1 puff IH Q12 [facility] Last Admin: 11/19/17 08:47 Dose: 1 puff Torsemide (Demadex) 20 mg PO DAILY [facility] - Labs Labs: 11/17/17 09:43 11/19/17 08:10 - Constitutional Appears: Non-toxic, No Acute Distress - Head Exam Head Exam: NORMOCEPHALIC - Eye Exam Eye Exam: EOMI - ENT Exam ENT Exam: Mucous Membranes Moist - Neck Exam Neck Exam: Full ROM - Respiratory Exam Respiratory Exam: Decreased Breath Sounds (to b/l bases), Wheezes Additional comments: wheezing to b/l lung lee - Cardiovascular Exam Cardiovascular Exam: REGULAR RHYTHM, +S1, +S2 - GI/Abdominal Exam GI & Abdominal Exam: Soft Additional comments: Abdomen is obese, soft - Extremities Exam Extremities Exam: Pedal Edema Additional comments: 2+ - Neurological Exam Neurological Exam: Alert, Awake, Oriented x3 - Psychiatric Exam Psychiatric exam: Normal Affect - Skin Skin Exam: Pallor, Warm Assessment and Plan - Assessment and Plan (Free Text) Assessment: This is a 71 y/o female with PMHx of multiple comorbidities including HTN, T2DM , Hypothyroidsm, Depression, Multiple myeloma, and COPD who presented to the ED with c/o diarrhea x 5 days and lightheadedness and is admitted for Dehydration and multiple Electrolyte imbalances: Hypokalemia, Hypocalcemia and hypomagnesemia. Plan: Dehydartion likely 2/2 diarrhea -diarrhea resolved -IVF hydration D/C mild hyponatremia -11/19 Na 130, repeat Na129 -Torsemide on hold for now 2/2 hyponatemia and hypocalcemia, will wait Nephro recomm to resume it -Consult Nephrology Dr Nava, recommendations appreciated Hypocalcemia -Ca 6.4 mg/dl -Telemetry monitoring -Calcium cl 341 mg/ 100 ml NS x 3 doses given -Patient is on Revlimind, will hold for now given prior hx of side effects on the patient that includes hypocalcemia. -f/u CMP and electrolytes -iPTH ordered, pending results -Ionized Ca ordered -Continue home meds: Vit D+ Ca -Consult [employer] Dr No, recommendations appreciated -Nephrology consult by Dr Nava Hypokalemia is resolved, but patient has mild hyperkalemia at this time -K 5.8 MMol/L -Continue Telemetry monitoring -f/u repeat K -Will consult Dr Nava for the management of Electrolyte imbalance, recommendation are appreciated Hypomagnesemia -Resolved -Mg 1.9 -Endocrinology consulted by Dr No T2DM - chronic, controlled -Heart healthy diet/diabetic diet -Will continue diabetic home medications: Insulin Levemir 14 units SC HS, Insulin Novolog 5 units SC TID AC meals, Metformin 500mg PO BID -Atorvastatin 20 POQHS -Insulin coverage as per SS - hypoglycemia protocol in place HTN - chronic, controlled - metoprolol 25 PO BID -Enalapril 2.5 PO QD -Torsemide on hold temporally for now 2/2 hypoCa and HypoNa - continue with Aspirin 81 mg PO QD - monitor BP Multiple Myeloma -VElcade -Revlimind, on hold due to dehydration and electolyte I -F/u as an outpatient with Dr Vilchis Left foot toes pain -Unclear of cause, likely 2/2 neuropahy secondary to T2DM vs hairline fracture vs gout/elevated uric acid given patient is on antitumoral agents( velcade, Revlimind) -Uric acid level, pending results -Podiatry consult by Dr Peoples, recommendation appreciated. Hypothyroidism - chronic, controlled - continue home medications: Levothyroxine 25 mcg PO QD GERD -Chronic, controlled -omeprazole 20 PO QD -Ranitidine 150 BID, and 300 mg QHS COPD Exacerbation, Pulmonary HTN -Improved from yesterday, -Solumedrol 40 IV QD -Oxigen 3L NC -Dexamethasone 4 mg on mondays -Advair Diskus 1 puff BID -continue CPAP at night -Adempas 2mg PO TID Depression -Chronic, controlled -Outpatient F/u by Dr Chase Miller -Clonazepam 05 PO PRN anxiety -EScitalopram 10 POQD -Aripiprazole 2 PO QD -Buspar 10 PO BID DVT Prophylaxis -Heparin 5000 SC Q8h Code Status Full code
[2017-11-19 12:55] LABS: FOLATE 12.1 ng/mL
[2017-11-19 13:55] LABS: CREATININE, RANDOM URINE 69.3 mg/dL
--- NOTE | 2017-11-19 15:37 | CP.PCM.PN ---
Subjective - Date & Time of Evaluation Date of Evaluation: 11/19/17 Time of Evaluation: 15:32 - Subjective Subjective: 71 yo F w/ pmh of htn, dm, severe pulmonary htn, COPD on home O2, sleep apnea on CPAP, hypothyroidism, s/p PE, and multiple myeloma on chemo, presented to ED yesterday with diarrhea and accompanying dizziness; nephrology service now being consulted for electrolyte abnormalities; Patient reports that diarrhea began 5 days ago but has resolved since admission ; was having associated "dizziness" but continued taking her BP meds; appetite had been fair; admits to drinking about 1 gallon water daily; reports intermittent leg swelling, cannot say if it has increased lately; does report increased dyspnea lately; denies any change in urination; no dysuria but does get some urgency and typically urinates 3-4 times per night; Patient follows with hematology, reportedly started on Revlimid recently; takes Ca and Mg supplementation at home; Objective - Vital Signs/Intake and Output Vital Signs (last 24 hours): Temp Pulse Resp BP Pulse Ox 98 F 72 20 113/66 97 11/19/17 12:00 11/19/17 12:00 11/19/17 12:00 11/19/17 12:00 11/19/17 12:00 - Medications Medications: Current Medications Aripiprazole (Abilify) 5 mg PO HS [facility] Last Admin: 11/18/17 21:34 Dose: 5 mg Aspirin (Ecotrin) 81 mg PO DAILY [facility] Last Admin: 11/19/17 08:51 Dose: 81 mg Atorvastatin Calcium (Lipitor) 20 mg PO HS [facility] Last Admin: 11/18/17 21:33 Dose: 20 mg Benztropine Mesylate (Cogentin) 1 mg PO HS [facility] Last Admin: 11/18/17 21:34 Dose: 1 mg Buspirone HCl (Buspar) 10 mg PO Q12 [facility] Last Admin: 11/19/17 08:50 Dose: 10 mg Calcitriol (Rocaltrol) 0.5 mcg PO BID [facility] Last Admin: 11/19/17 08:49 Dose: 0.5 mcg Calcium Carbonate (Oscal) 1,000 mg PO Q8H [facility] Last Admin: 11/19/17 13:25 Dose: 1,000 mg Clonazepam (Klonopin) 0.5 mg PO DAILY PRN PRN Reason: Anxiety Dextrose (Dextrose 50% Inj) 0 ml IV STAT PRN; Protocol PRN Reason: Hypoglycemia Protocol Dextrose (Glutose 15) 0 gm PO ONCE PRN; Protocol PRN Reason: Hypoglycemia Protocol Enalapril Maleate (Vasotec) 2.5 mg PO DAILY [facility] Last Admin: 11/18/17 08:55 Dose: 2.5 mg Escitalopram Oxalate (Lexapro) 10 mg PO HS [facility] Last Admin: 11/18/17 21:34 Dose: 10 mg Ferrous Sulfate (Feosol) 325 mg PO DAILY [facility] Last Admin: 11/19/17 08:50 Dose: 325 mg Glucagon (Glucagen Diagnostic Kit) 0 mg IM STAT PRN; Protocol PRN Reason: Hypoglycemia Protocol Heparin Sodium (Porcine) (Heparin) 5,000 units SC Q8 [facility] PRN Reason: Protocol Last Admin: 11/19/17 08:46 Dose: 5,000 units Home Med (Riociguat [Adempas]) 2 mg PO TID [facility] Last Admin: 11/19/17 13:25 Dose: 2 mg Hydrocortisone (Cortef) 10 mg PO HS [facility] Last Admin: 11/18/17 21:34 Dose: 10 mg Insulin Detemir (Levemir) 10 units SC HS [facility] Last Admin: 11/18/17 21:39 Dose: 10 units Insulin Human Lispro (Humalog) 0 units SC [facility] PRN Reason: Protocol Last Admin: 11/19/17 13:23 Dose: Not Given Insulin Human Lispro (Humalog) 4 units SC AC [facility] Last Admin: 11/19/17 13:27 Dose: 4 units Ipratropium [place] (Atrovent) 0.5 mg IH RQ8 [facility] Last Admin: 11/19/17 08:23 Dose: 0.5 mg Levalbuterol HCl (Xopenex) 0.63 mg INH RQ8 [facility] Last Admin: 11/19/17 08:24 Dose: 0.63 mg Levothyroxine Sodium (Synthroid) 50 mcg PO DAILY@0630 [facility] Last Admin: 11/19/17 06:34 Dose: 50 mcg Magnesium Oxide (Mag-Ox) 400 mg PO BID [facility] Last Admin: 11/19/17 08:48 Dose: 400 mg Methylprednisolone (Solu-Medrol) 40 mg IVP DAILY [facility] Last Admin: 11/19/17 08:46 Dose: 40 mg Metoprolol Tartrate (Lopressor) 25 mg PO Q12 [facility] Last Admin: 11/19/17 08:48 Dose: 25 mg Pantoprazole Sodium (Protonix Ec Tab) 20 mg PO DAILY [facility] Last Admin: 11/19/17 08:49 Dose: 20 mg Fluticasone/Salmeterol (Advair Diskus 250/50) 1 puff IH Q12 [facility] Last Admin: 11/19/17 08:47 Dose: 1 puff Torsemide (Demadex) 20 mg PO DAILY [facility] - Labs Labs: 11/17/17 09:43 11/19/17 08:10 - Constitutional Appears: Non-toxic, No Acute Distress - Eye Exam Eye Exam: Normal appearance. absent: Scleral icterus - ENT Exam ENT Exam: Mucous Membranes Moist - Respiratory Exam Respiratory Exam: absent: Respiratory Distress Additional comments: extensive b/l basal rales; slight scattered wheezes; no rhonchi; - Cardiovascular Exam Cardiovascular Exam: JVD, +S1, +S2. absent: Gallop, Rubs - GI/Abdominal Exam GI & Abdominal Exam: Soft. absent: Distended - Exam Exam: absent: Bladder Distension - Extremities Exam Additional comments: 2+ bilateral lower leg edema; - Neurological Exam Neurological Exam: Alert, Awake Additional comments: coarse hand tremor, especially on R; - Psychiatric Exam Psychiatric exam: Normal Affect, Normal Mood. absent: Agitated - Skin Skin Exam: Warm. absent: Cyanosis Assessment and Plan (1) Electrolyte abnormality Assessment & Plan: Patient presenting with hyponatremia, hypokalemia and hypomagnesemia in the setting of persistent diarrhea since several days prior to admission; had mild hypotension consistent with intravascular volume depletion and was subsequently given ~4L NS as well as potassium and magnesium supplementation; however, extremely low urine sodium today indicates that patient still has low effective arterial blood volume, likely due to severe pulmonary htn with inadequate forward flow; hyperkalemia and persistent hyponatremia with high urine osm likely also indicative of the same; adrenal insufficiency unlikely as cortisol level elevated and patient getting supplementation; -Agree with stopping IVF as this can cause RV pressure overload; -Restart diuretics, torsemide 20 mg daily; -Low K diet; -PO fluid restriction to 1200 cc daily; -If patient unable to fluid restrict and serum sodium drops further, will give dose of tolvaptan; Status: Acute (2) QT prolongation Assessment & Plan: Secondary to hypocalcemia in the setting of being on denosumab and revlimid; QT still prolonged today; -Continue calcitriol started by endocrine (although activated vitamin D level should be normal given normal kidney function); -Increase PO calcium supplementation (calcium carbonate 1g q8h); -Giving 1 dose of calcium gluconate 1g now (avoid calcium chloride with peripheral line); Status: Acute (3) CHF (congestive heart failure) Assessment & Plan: Diastolic dysfunction as well as severe pulmonary htn; restart diuretics as above; Status: Chronic (4) HTN (hypertension) Assessment & Plan: Agree with holding enalapril; if BP drops with restarting diuretics, decrease metoprolol to 12.5 mg bid; Status: Chronic (5) Pulmonary hypertension Status: Chronic
--- NOTE | 2017-11-19 20:09 | CP.PCM.CON ---
History of Present Illness - History of Present Illness History of Present Illness: See progress note from today for full consult; Past Patient History - Infectious Disease Hx of Infectious Diseases: None - Tetanus Immunizations Tetanus Immunization: Unknown - Past Medical History & Family History Past Medical History?: Yes Pertinent Family History: Father - Lung CA Mother - heart disease - Past Social History Smoking Status: Never Smoked Alcohol: None Drugs: Denies - CARDIAC Hx Congestive Heart Failure: Yes Hx Hypercholesterolemia: Yes Hx Hypertension: Yes - PULMONARY Hx Asthma: Yes Hx Chronic Obstructive Pulmonary Disease (COPD): Yes Hx Emphysema: Yes Hx Pneumonia: Yes Hx Pulmonary Embolism: Yes Hx Sleep Apnea: Yes - NEUROLOGICAL Hx Migraine: Yes Hx Parkinson's Disease: Yes - HEENT Hx Deafness: Yes - RENAL Hx Chronic Kidney Disease: No - ENDOCRINE/METABOLIC Hx Hypothyroidism: Yes - HEMATOLOGICAL/ONCOLOGICAL Hx Anemia: Yes Hx Human Immunodeficiency Virus (HIV): No - INTEGUMENTARY Hx Dermatological Problems: No - MUSCULOSKELETAL/RHEUMATOLOGICAL Hx Arthritis: Yes Hx Fractures: Yes Hx Rheumatoid Arthritis: Yes - GASTROINTESTINAL Hx Gastrointestinal Disorders: No - GENITOURINARY/GYNECOLOGICAL Hx Genitourinary Disorders: Yes Hx Incontinence: Yes - PSYCHIATRIC Hx Anxiety: Yes Hx Depression: Yes - SURGICAL HISTORY Hx Cholecystectomy: Yes Hx Tonsillectomy: Yes - ANESTHESIA Hx Anesthesia: Yes Hx Anesthesia Reactions: Yes (Resp. Distress) Hx Malignant Hyperthermia: No Meds Allergies/Adverse Reactions: Allergies Allergy/AdvReac Type Severity Reaction Status Date / Time codeine AdvReac syncope, Verified 11/17/17 08:57 diaphoresis - Medications Medications: Current Medications Aripiprazole (Abilify) 5 mg PO HS [facility] Last Admin: 11/18/17 21:34 Dose: 5 mg Aspirin (Ecotrin) 81 mg PO DAILY [facility] Last Admin: 11/19/17 08:51 Dose: 81 mg Atorvastatin Calcium (Lipitor) 20 mg PO HS [facility] Last Admin: 11/18/17 21:33 Dose: 20 mg Benzonatate (Tessalon Perles) 100 mg PO TID PRN PRN Reason: Cough Benztropine Mesylate (Cogentin) 1 mg PO HS [facility] Last Admin: 11/18/17 21:34 Dose: 1 mg Buspirone HCl (Buspar) 10 mg PO Q12 [facility] Last Admin: 11/19/17 08:50 Dose: 10 mg Calcitriol (Rocaltrol) 0.5 mcg PO BID [facility] Last Admin: 11/19/17 17:25 Dose: 0.5 mcg Calcium Carbonate (Oscal) 1,000 mg PO Q8H [facility] Last Admin: 11/19/17 18:47 Dose: 1,000 mg Clonazepam (Klonopin) 0.5 mg PO DAILY PRN PRN Reason: Anxiety Dextrose (Dextrose 50% Inj) 0 ml IV STAT PRN; Protocol PRN Reason: Hypoglycemia Protocol Dextrose (Glutose 15) 0 gm PO ONCE PRN; Protocol PRN Reason: Hypoglycemia Protocol Enalapril Maleate (Vasotec) 2.5 mg PO DAILY [facility] Last Admin: 11/18/17 08:55 Dose: 2.5 mg Escitalopram Oxalate (Lexapro) 10 mg PO HS [facility] Last Admin: 11/18/17 21:34 Dose: 10 mg Ferrous Sulfate (Feosol) 325 mg PO DAILY [facility] Last Admin: 11/19/17 08:50 Dose: 325 mg Glucagon (Glucagen Diagnostic Kit) 0 mg IM STAT PRN; Protocol PRN Reason: Hypoglycemia Protocol Heparin Sodium (Porcine) (Heparin) 5,000 units SC Q8 [facility] PRN Reason: Protocol Last Admin: 11/19/17 16:45 Dose: 5,000 units Home Med (Riociguat [Adempas]) 2 mg PO TID [facility] Last Admin: 11/19/17 18:19 Dose: 2 mg Hydrocortisone (Cortef) 10 mg PO HS [facility] Last Admin: 11/18/17 21:34 Dose: 10 mg Insulin Detemir (Levemir) 14 units SC HS [facility] Insulin Human Lispro (Humalog) 0 units SC ACHS [facility] PRN Reason: Protocol Last Admin: 11/19/17 16:45 Dose: Not Given Insulin Human Lispro (Humalog) 4 units SC AC [facility] Last Admin: 11/19/17 16:46 Dose: 4 units Ipratropium [place] (Atrovent) 0.5 mg IH RQ8 [facility] Last Admin: 11/19/17 15:51 Dose: 0.5 mg Levalbuterol HCl (Xopenex) 0.63 mg INH RQ8 [facility] Last Admin: 11/19/17 15:51 Dose: 0.63 mg Levothyroxine Sodium (Synthroid) 50 mcg PO DAILY@0630 [facility] Last Admin: 11/19/17 06:34 Dose: 50 mcg Magnesium Oxide (Mag-Ox) 400 mg PO BID [facility] Last Admin: 11/19/17 17:25 Dose: 400 mg Methylprednisolone (Solu-Medrol) 40 mg IVP DAILY [facility] Last Admin: 11/19/17 08:46 Dose: 40 mg Metoprolol Tartrate (Lopressor) 25 mg PO Q12 [facility] Last Admin: 11/19/17 08:48 Dose: 25 mg Pantoprazole Sodium (Protonix Ec Tab) 20 mg PO DAILY [facility] Last Admin: 11/19/17 08:49 Dose: 20 mg Fluticasone/Salmeterol (Advair Diskus 250/50) 1 puff IH Q12 [facility] Last Admin: 11/19/17 08:47 Dose: 1 puff Torsemide (Demadex) 20 mg PO DAILY [facility] Last Admin: 11/19/17 16:44 Dose: 20 mg Results - Vital Signs Recent Vital Signs: Last Vital Signs Temp 98.1 F 11/19/17 20:00 Pulse 87 11/19/17 20:00 Resp 20 11/19/17 20:00 BP 108/66 11/19/17 20:00 Pulse Ox 97 11/19/17 20:00 - Labs Result Diagrams: 11/17/17 09:43 11/19/17 08:10 Labs: Laboratory Results - last 24 hr 11/18/17 11/18/17 11/18/17 09:30 11:04 14:18 Retic Count Sodium Potassium Chloride Carbon Dioxide Anion Gap BUN Creatinine Est GFR ( Amer) Est GFR (Non-Af Amer) POC Glucose (mg/dL) Random Glucose Calcium Ionized Calcium 3.4 L Phosphorus Magnesium Ferritin Total Bilirubin AST ALT Alkaline Phosphatase Total Protein Albumin Globulin Albumin/Globulin Ratio Vitamin B12 25-OH Vitamin D Total Folate PTH Intact Whole Molec 88 H Cortisol AM Sample Urine Osmolality Ur Random Creatinine Ur Random Sodium Ur Random Potassium Ur Random Calcium < 1.0 11/18/17 11/19/17 11/19/17 21:22 04:20 04:20 Retic Count Sodium 130 L Potassium 5.8 H Chloride 97 L Carbon Dioxide 27 Anion Gap 12 BUN 17 Creatinine 0.9 Est GFR ( Amer) > 60 Est GFR (Non-Af Amer) > 60 POC Glucose (mg/dL) 197 H Random Glucose 281 H Calcium 6.4 L Ionized Calcium Phosphorus 2.8 Magnesium 1.9 Ferritin 157.0 Total Bilirubin 0.4 AST 126 H D ALT 114 H Alkaline Phosphatase 246 H Total Protein 6.0 L Albumin 3.3 L Globulin 2.7 Albumin/Globulin Ratio 1.2 Vitamin B12 958 H 25-OH Vitamin D Total Folate 12.1 PTH Intact Whole Molec Cortisol AM Sample 24.5 H Urine Osmolality Ur Random Creatinine Ur Random Sodium Ur Random Potassium Ur Random Calcium 11/19/17 11/19/17 11/19/17 04:20 04:20 05:15 Retic Count 2.7 H Sodium Potassium Chloride Carbon Dioxide Anion Gap BUN Creatinine Est GFR ( Amer) Est GFR (Non-Af Amer) POC Glucose (mg/dL) 276 H Random Glucose Calcium Ionized Calcium Phosphorus Magnesium Ferritin Total Bilirubin AST ALT Alkaline Phosphatase Total Protein Albumin Globulin Albumin/Globulin Ratio Vitamin B12 25-OH Vitamin D Total 36.4 Folate PTH Intact Whole Molec Cortisol AM Sample Urine Osmolality Ur Random Creatinine Ur Random Sodium Ur Random Potassium Ur Random Calcium 11/19/17 11/19/17 11/19/17 08:10 11:15 13:20 Retic Count Sodium 129 L Potassium 5.5 H Chloride 98 Carbon Dioxide 26 Anion Gap 11 BUN 17 Creatinine 0.9 Est GFR ( Amer) > 60 Est GFR (Non-Af Amer) > 60 POC Glucose (mg/dL) 260 H Random Glucose 273 H Calcium 6.4 L Ionized Calcium Phosphorus Magnesium Ferritin Total Bilirubin AST ALT Alkaline Phosphatase Total Protein Albumin Globulin Albumin/Globulin Ratio Vitamin B12 25-OH Vitamin D Total Folate PTH Intact Whole Molec Cortisol AM Sample Urine Osmolality 332 Ur Random Creatinine 69.3 Ur Random Sodium Ur Random Potassium Ur Random Calcium 11/19/17 11/19/17 13:20 15:56 Retic Count Sodium Potassium Chloride Carbon Dioxide Anion Gap BUN Creatinine Est GFR ( Amer) Est GFR (Non-Af Amer) POC Glucose (mg/dL) 235 H Random Glucose Calcium Ionized Calcium Phosphorus Magnesium Ferritin Total Bilirubin AST ALT Alkaline Phosphatase Total Protein Albumin Globulin Albumin/Globulin Ratio Vitamin B12 25-OH Vitamin D Total Folate PTH Intact Whole Molec Cortisol AM Sample Urine Osmolality Ur Random Creatinine Ur Random Sodium < 5 Ur Random Potassium 20.8 Ur Random Calcium Assessment & Plan (1) Electrolyte abnormality Status: Acute (2) QT prolongation Status: Acute (3) CHF (congestive heart failure) Status: Chronic Onset Date: 12/06/13 (4) HTN (hypertension) Status: Chronic (5) Pulmonary hypertension Status: Chronic
--- NOTE | 2017-11-19 21:14 | PN ---
DATE: 11/19/2017 ENDO FOLLOWUP NOTE LOCATION: In room 413. SUBJECTIVE: This is a 71-year-old female with recent uncontrolled type 2 insulin-requiring diabetes, presenting here with symptomatic hypocalcemia on the background of multiple myeloma with recent immunotherapy as given and is now being followed closely for metabolic management. She also presented here with intractable loose watery diarrhea with abdominal pain and cramping as noted and is slowly improving with subsidence of the vomiting and diarrhea today as noted. Her glycemic levels are fluctuating and today's levels have ranged from 235 to 260 mg/dL. It was 276 in the morning as noted. Her serum cortisol level is 24.5 with a vitamin D level of 36.4. Her calcium level is 6.4 with an albumin level of 3.3 and a corrected calcium of 7.1 mg/dL. ASSESSMENT AND PLAN: So at this time, we will continue the calcitriol given as 0.5 mcg b.i.d. as ordered. We will also continue the levothyroxine given as 50 mcg daily as ordered. They are tapering down her intravenous steroids as noted. We will also continue the hydrocortisone given orally as 10 mg p.o. at bedtime daily for management of secondary hypoadrenalism. Moreover, we will modify her basal insulin and increase the Levemir to 14 units subcutaneously at bedtime daily as given. We will continue the Humalog given as 4 units t.i.d. before meals as ordered. We will titrate incrementally as indicated to optimize metabolic control. We will obtain serial chemistries and supplement accordingly as needed. We will follow. Irene Mann MD
[2017-11-19] MEDS ORDERED: Insulin Detemir 100 Units/ml Inj SC SCH (22:00)
[2017-11-20 06:21] LABS: ALB/GLOB RATIO 1.1 (1.0-2.1); ALBUMIN 3.2 g/dL (3.5-5.0); CALCIUM 6.9 mg/dL (8.4-10.2)
[2017-11-20] MEDS: Levothyroxine 50 MCG TAB PO SCH (06:35)
[2017-11-20] MEDS ORDERED: Sod Polystyrene Sulf 15 gm/60 ml Susp PO ONE (07:00)
[2017-11-20 07:14] LABS: SQUAMOUS EPITHIAL < 1 /hpf (0-5); URINE BILIRUBIN NEGATIVE (NEGATIVE); URINE BLOOD NEGATIVE (NEGATIVE); URINE CLARITY CLEAR (Clear); URINE COLOR YELLOW (YELLOW); URINE GLUCOSE (UA) NEG (Normal); URINE LEUKOCYTE ESTERASE NEG Leu/uL (Negative); URINE PROTEIN NEGATIVE (NEGATIVE); URINE UROBILINOGEN 0.2-1.0 mg/dL (0.2-1.0)
--- NOTE | 2017-11-20 07:19 | CARD ---
APPROVED REPORT Date of service: 11/19/2017 EKG Measurement Heart [id number] <Conclusion> Normal sinus rhythm Low voltage QRS Prolonged QT Abnormal ECG
--- NOTE | 2017-11-20 07:26 | CARD ---
APPROVED REPORT Date of service: 11/17/2017 EKG Measurement Heart [id number] <Conclusion> Normal sinus rhythm Possible Left atrial enlargement Nonspecific T wave abnormality Prolonged QT Abnormal ECG
[2017-11-20] MEDS: Ipratropium 0.02% Inhal Soln (0.5 mg/2.5 ml) UD IH SCH (08:06)
[2017-11-20] MEDS: Levalbuterol 0.63 MG/3 ML Inhal Soln UD INH SCH (08:06)
[2017-11-20] MEDS: Fluticasone-Salmeterol 250-50mcg Diskus IH SCH ×2 (08:25→21:55)
[2017-11-20] MEDS: Magnesium Oxide 400 mg Tab UD PO SCH ×2 (08:26→18:16)
[2017-11-20] MEDS: RIOCIGUAT 2 MG PO SCH ×3 (08:27→18:17)
[2017-11-20] MEDS: Pantoprazole 20 mg EC Tab PO SCH (08:27)
[2017-11-20] MEDS: Insulin Lispro (humaLOG) 100 Units/ml Inj SC SCH ×7 (08:32→21:59)
[2017-11-20] MEDS: MethylPREDNISolone 40 mg Vial IVP SCH (08:37)
[2017-11-20] MEDS ORDERED: methylPREDNISolone 20 MG in Sodium Chloride 0.9% 50 ML IV SCH (09:00)
[2017-11-20] MEDS ORDERED: Levalbuterol 0.63 MG/3 ML Inhal Soln UD INH PRN (10:33)
--- NOTE | 2017-11-20 11:11 | CP.PCM.PN ---
<Sakshi Prajapati - Last Filed: 11/20/17 12:08> Subjective - Date & Time of Evaluation Date of Evaluation: 11/20/17 Time of Evaluation: 09:45 - Subjective Subjective: Patient was seen, and examined at bedside this morning. Patient was seen alert, awake, and oriented x 3. Reports improving in her SOB, still having a dry cough , and sometime scant white sputum production. Afebrile. Yesterday Patient was seen by Dr. Nava, patient was placed on a low K diet and a fluid restriction of 1200 ml per day. Also yesterday was resumed home torsemide. Having tremors in upper/lower extremities, as per patient is her baseline. On home benztropine. No events overnight. Objective - Vital Signs/Intake and Output Vital Signs (last 24 hours): Temp Pulse Resp BP Pulse Ox 97.0 F L 70 20 143/55 L 98 11/20/17 08:20 11/20/17 08:28 11/20/17 08:20 11/20/17 08:36 11/20/17 08:20 Intake and Output: 11/20/17 11/20/17 06:59 18:59 Intake Total 240 Balance 240 - Medications Medications: Current Medications Aripiprazole (Abilify) 5 mg PO HS [facility] Last Admin: 11/19/17 22:06 Dose: 5 mg Aspirin (Ecotrin) 81 mg PO DAILY [facility] Last Admin: 11/20/17 08:27 Dose: 81 mg Atorvastatin Calcium (Lipitor) 20 mg PO HS [facility] Last Admin: 11/19/17 23:07 Dose: 20 mg Benzonatate (Tessalon Perles) 100 mg PO TID [facility] Benztropine Mesylate (Cogentin) 1 mg PO HS [facility] Last Admin: 11/19/17 23:07 Dose: 1 mg Buspirone HCl (Buspar) 10 mg PO Q12 [facility] Last Admin: 11/20/17 08:27 Dose: 10 mg Calcitriol (Rocaltrol) 0.5 mcg PO BID [facility] Last Admin: 11/20/17 08:29 Dose: 0.5 mcg Calcium Carbonate (Oscal) 1,000 mg PO Q8H [facility] Last Admin: 11/20/17 10:02 Dose: 1,000 mg Clonazepam (Klonopin) 0.5 mg PO DAILY PRN PRN Reason: Anxiety Dextrose (Dextrose 50% Inj) 0 ml IV STAT PRN; Protocol PRN Reason: Hypoglycemia Protocol Dextrose (Glutose 15) 0 gm PO ONCE PRN; Protocol PRN Reason: Hypoglycemia Protocol Enalapril Maleate (Vasotec) 2.5 mg PO DAILY [facility] Last Admin: 11/18/17 08:55 Dose: 2.5 mg Escitalopram Oxalate (Lexapro) 10 mg PO HS [facility] Last Admin: 11/19/17 23:06 Dose: 10 mg Ferrous Sulfate (Feosol) 325 mg PO DAILY [facility] Last Admin: 11/20/17 08:30 Dose: 325 mg Glucagon (Glucagen Diagnostic Kit) 0 mg IM STAT PRN; Protocol PRN Reason: Hypoglycemia Protocol Heparin Sodium (Porcine) (Heparin) 5,000 units SC Q8 [facility] PRN Reason: Protocol Last Admin: 11/20/17 08:31 Dose: 5,000 units Home Med (Riociguat [Adempas]) 2 mg PO TID [facility] Last Admin: 11/20/17 08:27 Dose: 2 mg Hydrocortisone (Cortef) 10 mg PO HS [facility] Last Admin: 11/19/17 22:06 Dose: 10 mg Insulin Detemir (Levemir) 14 units SC HS [facility] Last Admin: 11/19/17 23:11 Dose: 14 units Insulin Human Lispro (Humalog) 0 units SC [facility] PRN Reason: Protocol Last Admin: 11/20/17 08:32 Dose: Not Given Insulin Human Lispro (Humalog) 4 units SC AC [facility] Last Admin: 11/20/17 08:32 Dose: 4 units Levalbuterol HCl (Xopenex) 0.63 mg INH RQ8 PRN PRN Reason: Wheezing Levothyroxine Sodium (Synthroid) 50 mcg PO DAILY@0630 [facility] Last Admin: 11/20/17 06:35 Dose: 50 mcg Magnesium Oxide (Mag-Ox) 400 mg PO BID [facility] Last Admin: 11/20/17 08:26 Dose: 400 mg Methylprednisolone (Solu-Medrol) 20 mg IVP DAILY [facility] Last Admin: 11/20/17 08:37 Dose: 20 mg Metoprolol Tartrate (Lopressor) 25 mg PO Q12 [facility] Last Admin: 11/20/17 08:28 Dose: 25 mg Pantoprazole Sodium (Protonix Ec Tab) 20 mg PO DAILY [facility] Last Admin: 11/20/17 08:27 Dose: 20 mg Fluticasone/Salmeterol (Advair Diskus 250/50) 1 puff IH Q12 [facility] Last Admin: 11/20/17 08:25 Dose: 1 puff Torsemide (Demadex) 20 mg PO DAILY [facility] Last Admin: 11/19/17 16:44 Dose: 20 mg - Labs Labs: 11/17/17 09:43 11/20/17 05:15 - Constitutional Appears: Non-toxic, No Acute Distress - Eye Exam Eye Exam: Normal appearance - ENT Exam ENT Exam: Mucous Membranes Moist - Respiratory Exam Respiratory Exam: Rales (scant, fine in the bases), NORMAL BREATHING PATTERN. absent: Rhonchi, Wheezes - GI/Abdominal Exam GI & Abdominal Exam: Soft, Normal Bowel Sounds. absent: Distended, Tenderness - Extremities Exam Extremities Exam: Pedal Edema. absent: Calf Tenderness Additional comments: lower extremities pitting 1+ - Back Exam Back Exam: NORMAL INSPECTION. absent: CVA tenderness (L), CVA tenderness (R) - Neurological Exam Neurological Exam: Alert, Awake, Oriented x3 - Skin Skin Exam: Dry, Intact, Normal Color Assessment and Plan - Assessment and Plan (Free Text) Assessment: 71 y/o female with PMHx of multiple comorbidities including HTN, T2DM, Hypothyroidsm, Depression, Multiple myeloma, and COPD admitted for Dehydration and multiple Electrolyte imbalances: Hypokalemia, Hypocalcemia and hypomagnesemia, also noted to be in acute COPD exacerbation. Plan: Electrolyte abnormality -Hypocalcemia improving -today Ca 6.9 mg/dl( prior test 6.4) -Continues site monitor -s/p Calcium Gluconate 1 GM IV on 11/19 ( per Nephrology recs) -s/p Calcium Chl 341 mg/ 100 ml NS x 3 doses given on admission -Pending Ionized Ca ordered on 11/18 -c/w Calcitriol 0.5 mg PO BID ( started by Dr. Mann) -c/w Calcium Carbonate 1000 mg PO Q8 ( per Dr. Nava) -calcium/Vit D 500-200 was DC -PTH elevated, possible 2/2 hypocalcemia -noted QT prolong in EKG -stable Hyperkalemia 5.5 ( kayxalate was held for now, as per Nephrology recommendation) -resumed home Torsemide 20 mg PO daily( as per pt's daughter she was taking it every other day at home) -s/p Furosemide 20 mg IV once on 11/19 by Nephro -low potassium diet -Hyponatremia slightly improving today 131(129) -on fluid restriction 1200 ml/ day since 11/19 -Avoid IV fluids -as per Nephro if sodium drops further will give dose of Tolvaptan -magnesium WNL ( s/p magnesium sulf 2 gm IV x 2) -c/w magnesium 400 mg po BID( increased from daily to BID by Dr. Vilchis in outpatient setting) -was on Revlimind, which was discontinued by Dr. Vilchis, because possible medication induced diarrheas. -Consult Clinical Account Manager Dr Mann, recommendations appreciated -Nephrology consulted, Dr Nava, recommendations are appreciated Dehydration -on admission -likely 2/2 watery diarrheas -resolved with gentle hydration -however today slightly increased BUN/Cr -will avoid IV fluids, because low urine sodium was noted, which could indicate that pt still has low effective arterial blood volume, likely 2/2 to severe pulmonary HTN -will f/u Nephrology recommendations COPD exacerbation -acute -improving -will taper down solumedrol from 40 mg IV daily to 20 mg IV -Xopenex neb PRN -Tessalon PO TID fátima for cough -CXR on admission reported no evidence of active pulmonary disease Diabetes mellitus type 2 -chronic -with hyperglycemia likely 2/2 steroids ( on chronic home hydrocortisone PO) -Insulin regimen been manged by endocrinology , Dr. Mann -on levemir 20 units SC HS -on lispro insulin 6 units SC AC -on Lispro insulin coverage per SS low dose -accucheck ACHS -c/w Atorvastatin 20 PO HS -hypoglycemia protocol HTN -chronic, controlled -c/w metoprolol 25 PO BID, if BP drops with restarting diuretics, could decrase Metoprolol to 12.5 mg BID -Held Enalapril 2.5 PO QD ( due to low BP on admission, and new hyperkalemia -Torsemide on hold temporally for now 2/2 hypoCa and HypoNa - continue with Aspirin 81 mg PO QD - monitor BP Tremor -chronic -likely 2/2 Abilify -no h/o Parkinson's disease -on home Benztropine1 mg PO HS -will give Benztropopine 1 mg PO once today Pulmonary Hypertension -on home Adempas TID Multiple Myeloma -Revlimind, on hold due to dehydration and electolyte I -F/u as an outpatient with Dr Vilchis Left foot toes pain -Unclear of cause, likely 2/2 neuropahy secondary to T2DM vs hairline fracture vs gout/elevated uric acid given patient is on antitumoral agents( velcade, Revlimind) -Uric acid level, pending results -Podiatry consult by Dr Peoples, recommendation appreciated. Hypothyroidism - chronic -TSH elevated, free T4 low -home Levothyroxine 25 mcg was increased to 50 mcg on 11/19 -DC Levothyroxine 25 mcg -repeat THS in 4-6 weeks, and adjust as needed GERD -Chronic, controlled -omeprazole 20 PO QD -Ranitidine 150 BID, and 300 mg QHS Sleep Apnea -continue CPAP at night Depression -Chronic, controlled -Outpatient F/u by Dr Chase Miller -Clonazepam 05 PO PRN anxiety -EScitalopram 10 POQD -Aripiprazole 2 PO QD - DVT Prophylaxis -Heparin 5000 SC Q8h Code Status Full code <Holley Roach - Last Filed: 11/20/17 14:39> Objective - Vital Signs/Intake and Output Vital Signs (last 24 hours): Temp Pulse Resp BP Pulse Ox 97.8 F 75 20 115/72 100 11/20/17 12:09 11/20/17 12:09 11/20/17 12:09 11/20/17 12:09 11/20/17 12:09 Intake and Output: 11/20/17 11/20/17 06:59 18:59 Intake Total 240 Balance 240 - Medications Medications: Current Medications Aripiprazole (Abilify) 5 mg PO HS [facility] Last Admin: 11/19/17 22:06 Dose: 5 mg Aspirin (Ecotrin) 81 mg PO DAILY [facility] Last Admin: 11/20/17 08:27 Dose: 81 mg Atorvastatin Calcium (Lipitor) 20 mg PO HS [facility] Last Admin: 11/19/17 23:07 Dose: 20 mg Benzonatate (Tessalon Perles) 100 mg PO TID [facility] Benztropine Mesylate (Cogentin) 1 mg PO BID [facility] Buspirone HCl (Buspar) 10 mg PO Q12 [facility] Last Admin: 11/20/17 08:27 Dose: 10 mg Calcitriol (Rocaltrol) 0.5 mcg PO BID [facility] Last Admin: 11/20/17 08:29 Dose: 0.5 mcg Calcium Carbonate (Oscal) 1,000 mg PO Q8H [facility] Last Admin: 11/20/17 10:02 Dose: 1,000 mg Clonazepam (Klonopin) 0.5 mg PO DAILY PRN PRN Reason: Anxiety Dextrose (Dextrose 50% Inj) 0 ml IV STAT PRN; Protocol PRN Reason: Hypoglycemia Protocol Dextrose (Glutose 15) 0 gm PO ONCE PRN; Protocol PRN Reason: Hypoglycemia Protocol Enalapril Maleate (Vasotec) 2.5 mg PO DAILY [facility] Last Admin: 11/18/17 08:55 Dose: 2.5 mg Escitalopram Oxalate (Lexapro) 10 mg PO HS [facility] Last Admin: 11/19/17 23:06 Dose: 10 mg Ferrous Sulfate (Feosol) 325 mg PO DAILY [facility] Last Admin: 11/20/17 08:30 Dose: 325 mg Glucagon (Glucagen Diagnostic Kit) 0 mg IM STAT PRN; Protocol PRN Reason: Hypoglycemia Protocol Heparin Sodium (Porcine) (Heparin) 5,000 units SC Q8 [facility] PRN Reason: Protocol Last Admin: 11/20/17 08:31 Dose: 5,000 units Home Med (Riociguat [Adempas]) 2 mg PO TID [facility] Last Admin: 11/20/17 08:27 Dose: 2 mg Hydrocortisone (Cortef) 10 mg PO HS [facility] Last Admin: 11/19/17 22:06 Dose: 10 mg Insulin Detemir (Levemir) 20 units SC HS [facility] Insulin Human Lispro (Humalog) 0 units SC ACHS [facility] PRN Reason: Protocol Last Admin: 11/20/17 13:21 Dose: Not Given Insulin Human Lispro (Humalog) 6 units SC AC [facility] Last Admin: 11/20/17 13:20 Dose: 6 unit Levalbuterol HCl (Xopenex) 0.63 mg INH RQ8 PRN PRN Reason: Wheezing Levothyroxine Sodium (Synthroid) 50 mcg PO DAILY@0630 [facility] Last Admin: 11/20/17 06:35 Dose: 50 mcg Magnesium Oxide (Mag-Ox) 400 mg PO BID [facility] Last Admin: 11/20/17 08:26 Dose: 400 mg Methylprednisolone (Solu-Medrol) 20 mg IVP DAILY [facility] Last Admin: 11/20/17 08:37 Dose: 20 mg Metoprolol Tartrate (Lopressor) 25 mg PO Q12 [facility] Last Admin: 11/20/17 08:28 Dose: 25 mg Pantoprazole Sodium (Protonix Ec Tab) 20 mg PO DAILY [facility] Last Admin: 11/20/17 08:27 Dose: 20 mg Fluticasone/Salmeterol (Advair Diskus 250/50) 1 puff IH Q12 [facility] Last Admin: 11/20/17 08:25 Dose: 1 puff Torsemide (Demadex) 20 mg PO DAILY [facility] Last Admin: 11/19/17 16:44 Dose: 20 mg - Labs Labs: 11/17/17 09:43 11/20/17 05:15 Attending/Attestation - Attestation I have personally seen and examined this patient.: Yes I have fully participated in the care of the patient.: Yes I have reviewed all pertinent clinical information, including history, physical exam and plan: Yes Notes (Text): Diarrhea likely due to Revlimid - diarrhea resolved after Revlimid was d/c
--- NOTE | 2017-11-20 15:53 | PN ---
DATE: 11/20/2017 ENDO FOLLOWUP NOTE LOCATION: In room 413. SUBJECTIVE: This is a 71-year-old female with recent admission for symptomatic hypocalcemia and has since then received vigorous hydration with calcium supplementation both parenterally and orally as ordered. She also has recent hyperglycemic fluctuations with underlying steroid therapy and is also being followed closely for metabolic management. Her glucose values ranging from 233 to 273 mg/dL. LABORATORY DATA: Her latest chemistries showed a BUN of 24, sodium 131, potassium 5.5, chloride 96, CO2 of 29, glucose 244, and creatinine 1.1. Her serum cortisol level was reported as 24.5 as noted. Her thyroid studies showed a TSH of 8.91 and a T4 of 0.30. ASSESSMENT AND PLAN: So at this time, we will continue the hydrocortisone given as 10 mg orally at bedtime as ordered. We will also continue the levothyroxine given as 50 mcg once daily and we will titrate incrementally as indicated to optimize metabolic control. We will also modify her current insulin regimen and increase the Humalog to 6 units subcutaneously t.i.d. before meals to start today at lunchtime. We will titrate incrementally as indicated to optimize metabolic control. We will obtain serial chemistries and supplement accordingly as needed. We will also modify the basal insulin with Levemir to be given at a higher dose of 20 units subcutaneously at bedtime daily as ordered. We will titrate incrementally as indicated to optimize metabolic control. We will follow and advise accordingly. Irene Mann MD
--- NOTE | 2017-11-20 16:32 | CP.PCM.PN ---
Subjective - Date & Time of Evaluation Date of Evaluation: 11/20/17 Time of Evaluation: 16:27 - Subjective Subjective: Patient reports feeling well; tolerating diet; no sob; had BM earlier; Objective - Vital Signs/Intake and Output Vital Signs (last 24 hours): Temp Pulse Resp BP Pulse Ox 97.9 F 74 16 119/65 99 11/20/17 16:06 11/20/17 16:06 11/20/17 16:06 11/20/17 16:06 11/20/17 16:06 Intake and Output: 11/20/17 11/20/17 06:59 18:59 Intake Total 240 Balance 240 - Medications Medications: Current Medications Aripiprazole (Abilify) 5 mg PO HS [facility] Last Admin: 11/19/17 22:06 Dose: 5 mg Aspirin (Ecotrin) 81 mg PO DAILY [facility] Last Admin: 11/20/17 08:27 Dose: 81 mg Atorvastatin Calcium (Lipitor) 20 mg PO HS [facility] Last Admin: 11/19/17 23:07 Dose: 20 mg Benzonatate (Tessalon Perles) 100 mg PO TID [facility] Benztropine Mesylate (Cogentin) 1 mg PO BID [facility] Buspirone HCl (Buspar) 10 mg PO Q12 [facility] Last Admin: 11/20/17 08:27 Dose: 10 mg Calcitriol (Rocaltrol) 0.5 mcg PO BID [facility] Last Admin: 11/20/17 08:29 Dose: 0.5 mcg Calcium Carbonate (Oscal) 1,000 mg PO Q8H [facility] Last Admin: 11/20/17 10:02 Dose: 1,000 mg Clonazepam (Klonopin) 0.5 mg PO DAILY PRN PRN Reason: Anxiety Dextrose (Dextrose 50% Inj) 0 ml IV STAT PRN; Protocol PRN Reason: Hypoglycemia Protocol Dextrose (Glutose 15) 0 gm PO ONCE PRN; Protocol PRN Reason: Hypoglycemia Protocol Enalapril Maleate (Vasotec) 2.5 mg PO DAILY [facility] Last Admin: 11/18/17 08:55 Dose: 2.5 mg Escitalopram Oxalate (Lexapro) 10 mg PO HS [facility] Last Admin: 11/19/17 23:06 Dose: 10 mg Ferrous Sulfate (Feosol) 325 mg PO DAILY [facility] Last Admin: 11/20/17 08:30 Dose: 325 mg Glucagon (Glucagen Diagnostic Kit) 0 mg IM STAT PRN; Protocol PRN Reason: Hypoglycemia Protocol Heparin Sodium (Porcine) (Heparin) 5,000 units SC Q12H [facility] PRN Reason: Protocol Home Med (Riociguat [Adempas]) 2 mg PO TID [facility] Last Admin: 11/20/17 08:27 Dose: 2 mg Hydrocortisone (Cortef) 10 mg PO HS [facility] Last Admin: 11/19/17 22:06 Dose: 10 mg Insulin Detemir (Levemir) 20 units SC HS [facility] Insulin Human Lispro (Humalog) 0 units SC ACHS [facility] PRN Reason: Protocol Last Admin: 11/20/17 13:21 Dose: Not Given Insulin Human Lispro (Humalog) 6 units SC AC [facility] Last Admin: 11/20/17 13:20 Dose: 6 unit Levalbuterol HCl (Xopenex) 0.63 mg INH RQ8 PRN PRN Reason: Wheezing Levothyroxine Sodium (Synthroid) 50 mcg PO DAILY@0630 [facility] Last Admin: 11/20/17 06:35 Dose: 50 mcg Magnesium Oxide (Mag-Ox) 400 mg PO BID [facility] Last Admin: 11/20/17 08:26 Dose: 400 mg Methylprednisolone (Solu-Medrol) 20 mg IVP DAILY [facility] Last Admin: 11/20/17 08:37 Dose: 20 mg Metoprolol Tartrate (Lopressor) 25 mg PO Q12 [facility] Last Admin: 11/20/17 08:28 Dose: 25 mg Pantoprazole Sodium (Protonix Ec Tab) 20 mg PO DAILY [facility] Last Admin: 11/20/17 08:27 Dose: 20 mg Fluticasone/Salmeterol (Advair Diskus 250/50) 1 puff IH Q12 [facility] Last Admin: 11/20/17 08:25 Dose: 1 puff Torsemide (Demadex) 20 mg PO DAILY [facility] Last Admin: 11/19/17 16:44 Dose: 20 mg - Labs Labs: 11/17/17 09:43 11/20/17 05:15 - Constitutional Appears: Non-toxic, No Acute Distress - Eye Exam Eye Exam: Normal appearance - Respiratory Exam Respiratory Exam: Clear to Ausculation Bilateral. absent: Respiratory Distress - Cardiovascular Exam Cardiovascular Exam: RRR, +S1, +S2. absent: Gallop - GI/Abdominal Exam GI & Abdominal Exam: Soft. absent: Distended, Tenderness - Extremities Exam Additional comments: mild lower leg edema b/l - Neurological Exam Neurological Exam: Alert, Awake - Psychiatric Exam Psychiatric exam: Normal Affect, Normal Mood. absent: Agitated - Skin Skin Exam: Warm. 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; Hyponatremia slightly improved; Hypocalcemia improving; -kayexalate 15g given earlier today; IV lasix 20 mg given also (will help offset sodium load from kayexalate); -decrease subq heparin to q12h dosing; -low K diet; -checking CPK level; -needs better glycemic control with steroids; -continue 1200 cc PO fluid restriction; -continue PO calcium supplementation as well as calcitriol; Status: Acute (2) CHF (congestive heart failure) Assessment & Plan: Diastolic dysfunction with severe pulmonary htn; had been stable on home regimen of every other day torsemide, will continue the same; Status: Chronic (3) HTN (hypertension) Assessment & Plan: BP controlled on metoprolol 25 mg bid and diuretics, continue the same; continue to hold BRUNO inhibitor; Status: Chronic (4) Pulmonary hypertension Status: Chronic (5) QT prolongation Status: Acute
[2017-11-20] MEDS: Insulin Detemir 100 Units/ml Inj SC SCH (22:00)
[2017-11-21 04:59] LABS: HEMOGLOBIN 9.4 g/dL (12.0-16.0); MEAN CELL VOLUME 89.6 fl (81.0-99.0); MEAN CORPUSCULAR HGB CONC 33.5 g/dL (33.0-37.0); RBC 3.13 Mil/uL (3.80-5.20); RED CELL DISTRIBUTION WIDTH 18.8 % (11.5-14.5); WHITE BLOOD COUNT 5.7 K/uL (4.8-10.8)
[2017-11-21 05:06] LABS: ALB/GLOB RATIO 1.1 (1.0-2.1); ALBUMIN 3.3 g/dL (3.5-5.0); ALT/SGPT 92 U/L (9-52); AST/SGOT 74 U/L (14-36); BLOOD UREA NITROGEN 26 mg/dl (7-17); CALCIUM 7.5 mg/dL (8.4-10.2); GFR NON-AFRICAN AMERICAN 55
[2017-11-21] MEDS: Levothyroxine 50 MCG TAB PO SCH (05:57)
--- NOTE | 2017-11-21 07:49 | CP.PCM.PN ---
<Saleem Ware - Last Filed: 11/21/17 12:44> Subjective - Date & Time of Evaluation Date of Evaluation: 11/21/17 Time of Evaluation: 11:22 - Subjective Subjective: Patient seen and examined this morning at bed side, no acute overnight events, reports feeling better though still having mild sob and increasing cough since last night. Afebrile, small amount of white sputum. o2 sat 100% on NC at 3 lpm. Objective - Vital Signs/Intake and Output Vital Signs (last 24 hours): Temp Pulse Resp BP Pulse Ox 97.6 F 71 20 112/62 100 11/21/17 04:46 11/21/17 05:24 11/21/17 04:46 11/21/17 04:46 11/21/17 04:46 Intake and Output: 11/21/17 11/21/17 06:59 18:59 Intake Total 1110 Balance 1110 - Medications Medications: Current Medications Aripiprazole (Abilify) 5 mg PO HS [facility] Last Admin: 11/20/17 21:55 Dose: 5 mg Aspirin (Ecotrin) 81 mg PO DAILY [facility] Last Admin: 11/20/17 08:27 Dose: 81 mg Atorvastatin Calcium (Lipitor) 20 mg PO HS [facility] Last Admin: 11/20/17 21:57 Dose: 20 mg Benzonatate (Tessalon Perles) 100 mg PO TID [facility] Last Admin: 11/20/17 18:18 Dose: 100 mg Benztropine Mesylate (Cogentin) 1 mg PO BID [facility] Last Admin: 11/20/17 18:12 Dose: 1 mg Buspirone HCl (Buspar) 10 mg PO Q12 [facility] Last Admin: 11/20/17 21:55 Dose: 10 mg Calcitriol (Rocaltrol) 0.5 mcg PO BID [facility] Last Admin: 11/20/17 18:17 Dose: 0.5 mcg Calcium Carbonate (Oscal) 1,000 mg PO Q8H [facility] Last Admin: 11/21/17 03:25 Dose: 1,000 mg Clonazepam (Klonopin) 0.5 mg PO DAILY PRN PRN Reason: Anxiety Last Admin: 11/20/17 21:54 Dose: 0.5 mg Dextrose (Dextrose 50% Inj) 0 ml IV STAT PRN; Protocol PRN Reason: Hypoglycemia Protocol Dextrose (Glutose 15) 0 gm PO ONCE PRN; Protocol PRN Reason: Hypoglycemia Protocol Enalapril Maleate (Vasotec) 2.5 mg PO DAILY [facility] Last Admin: 11/18/17 08:55 Dose: 2.5 mg Escitalopram Oxalate (Lexapro) 10 mg PO HS [facility] Last Admin: 11/20/17 21:56 Dose: 10 mg Ferrous Sulfate (Feosol) 325 mg PO DAILY [facility] Last Admin: 11/20/17 08:30 Dose: 325 mg Glucagon (Glucagen Diagnostic Kit) 0 mg IM STAT PRN; Protocol PRN Reason: Hypoglycemia Protocol Heparin Sodium (Porcine) (Heparin) 5,000 units SC Q12H [facility] PRN Reason: Protocol Home Med (Riociguat [Adempas]) 2 mg PO TID [facility] Last Admin: 11/20/17 18:17 Dose: 2 mg Hydrocortisone (Cortef) 10 mg PO HS [facility] Last Admin: 11/20/17 21:55 Dose: 10 mg Insulin Detemir (Levemir) 20 units SC [facility] Last Admin: 11/20/17 22:00 Dose: 20 units Insulin Human Lispro (Humalog) 0 units SC [facility] PRN Reason: Protocol Last Admin: 11/20/17 21:59 Dose: Not Given Insulin Human Lispro (Humalog) 6 units SC AC [facility] Last Admin: 11/20/17 18:13 Dose: 6 unit Levalbuterol HCl (Xopenex) 0.63 mg INH RQ8 PRN PRN Reason: Wheezing Levothyroxine Sodium (Synthroid) 50 mcg PO DAILY@0630 [facility] Last Admin: 11/21/17 05:57 Dose: 50 mcg Magnesium Oxide (Mag-Ox) 400 mg PO BID [facility] Last Admin: 11/20/17 18:16 Dose: 400 mg Methylprednisolone (Solu-Medrol) 20 mg IVP DAILY [facility] Last Admin: 11/20/17 08:37 Dose: 20 mg Metoprolol Tartrate (Lopressor) 25 mg PO Q12 [facility] Last Admin: 11/20/17 21:57 Dose: 25 mg Pantoprazole Sodium (Protonix Ec Tab) 20 mg PO DAILY [facility] Last Admin: 11/20/17 08:27 Dose: 20 mg Fluticasone/Salmeterol (Advair Diskus 250/50) 1 puff IH Q12 [facility] Last Admin: 11/20/17 21:55 Dose: 1 puff Torsemide (Demadex) 20 mg PO Q48H [facility] - Labs Labs: 11/21/17 04:10 11/21/17 04:10 - Constitutional Appears: No Acute Distress - Head Exam Head Exam: NORMAL INSPECTION - Eye Exam Eye Exam: EOMI, PERRL - Respiratory Exam Respiratory Exam: Prolonged Expiratory Phase, Rales (bibasal), Wheezes (at the end of expiration). absent: Accessory Muscle Use - Cardiovascular Exam Cardiovascular Exam: REGULAR RHYTHM. absent: Tachycardia, Murmur - GI/Abdominal Exam GI & Abdominal Exam: Soft, Normal Bowel Sounds. absent: Distended, Tenderness - Extremities Exam Extremities Exam: absent: Calf Tenderness - Neurological Exam Neurological Exam: Alert, Awake, Oriented x3 - Skin Skin Exam: Dry, Warm Assessment and Plan - Assessment and Plan (Free Text) Assessment: 71 y/o female with PMHx of multiple comorbidities including HTN, T2DM, Hypothyroidsm, Depression, Multiple myeloma, and COPD admitted for Dehydration and multiple Electrolyte imbalances: Hypokalemia, Hypocalcemia and hypomagnesemia, also noted to be in acute COPD exacerbation. 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 Mann) -c/w Calcium Carbonate 1000 mg PO Q8 ( per Dr. Nava) -calcium/Vit D 500-200 was DC -PTH elevated, possible 2/2 hypocalcemia -noted QT prolong in EKG -Hyperkalemia, improved K 4.9 today -c/w Torsemide 20 mg PO daily( as per pt's daughter she was taking it every other day at home) -low potassium diet -Hyponatremia improving Na 134 today -on fluid restriction 1200 ml/ day since 11/19 -Avoid IV fluids -magnesium WNL ( s/p magnesium sulf 2 gm IV x 2) -c/w magnesium 400 mg po BID( increased from daily to BID by Dr. Vilchis in outpatient setting) -was on Revlimind, which was discontinued by Dr. Vilchis, because possible medication induced diarrheas. -Consult Warehouse Distribution Manager Dr Mann, recommendations appreciated -Nephrology consulted, Dr Nava, recommendations are appreciated Dehydration, resolved -likely 2/2 watery diarrheas - BUN/Cr: 26/1.0 -will f/u Nephrology recommendations COPD exacerbation, acute -improving -c/w solumedrol 20 mg IV daily -Xopenex neb PRN -Tessalon PO TID fátima for cough -f/u CXR today, increasing cough. -admission cxr negative for active pulmonary disease Diabetes mellitus type 2, chronic -hyperglycemia likely 2/2 steroids ( on chronic home hydrocortisone PO) -Insulin regimen been manged by endocrinology , Dr. Mann -on levemir 20 units SC HS -on lispro insulin 6 units SC AC -on Lispro insulin coverage per SS low dose -accucheck ACHS -c/w Atorvastatin 20 PO HS -hypoglycemia protocol HTN, controlled -c/w metoprolol 25 PO BID, if BP drops with restarting diuretics, could decrase Metoprolol to 12.5 mg BID -Held Enalapril 25 mg due to initial hyperkalemia and low BP - continue with Aspirin 81 mg PO QD - monitor BP Tremor -chronic -likely 2/2 Abilify -no h/o Parkinson's disease -on home Benztropine1 mg PO HS Pulmonary Hypertension -on home Adempas TID Multiple Myeloma -Revlimind, on hold due to dehydration and electrolyte I -F/u as an outpatient with Dr Vilchis Left foot toes pain -Unclear of cause, likely 2/2 neuropahy secondary to T2DM vs hairline fracture vs gout/elevated uric acid given patient is on antitumoral agents( velcade, Revlimind) -Uric acid level, pending results -Podiatry consult by Dr Peoples, recommendation appreciated. Hypothyroidism -chronic -TSH elevated, free T4 low -home Levothyroxine 25 mcg was increased to 50 mcg on 11/19 -DC Levothyroxine 25 mcg -repeat THS in 4-6 weeks, and adjust as needed GERD -Chronic, controlled -omeprazole 20 PO QD -Ranitidine 150 BID, and 300 mg QHS Sleep Apnea -continue CPAP at night Depression -Chronic, controlled -Outpatient F/u by Dr Chase Miller -Clonazepam 05 PO PRN anxiety -EScitalopram 10 POQD -Aripiprazole 2 PO QD - DVT Prophylaxis -Heparin 5000 SC Q8h Code Status Full code <Holley Roach - Last Filed: 11/21/17 15:32> Objective - Vital Signs/Intake and Output Vital Signs (last 24 hours): Temp Pulse Resp BP Pulse Ox 97.7 F 71 20 139/84 99 11/21/17 08:36 11/21/17 08:36 11/21/17 08:36 11/21/17 08:36 11/21/17 08:36 Intake and Output: 11/21/17 11/21/17 06:59 18:59 Intake Total 1110 Balance 1110 - Medications Medications: Current Medications Aripiprazole (Abilify) 5 mg PO HS [facility] Last Admin: 11/20/17 21:55 Dose: 5 mg Aspirin (Ecotrin) 81 mg PO DAILY [facility] Last Admin: 11/21/17 08:12 Dose: 81 mg Atorvastatin Calcium (Lipitor) 20 mg PO HS [facility] Last Admin: 11/20/17 21:57 Dose: 20 mg Benzonatate (Tessalon Perles) 100 mg PO TID [facility] Last Admin: 11/21/17 12:05 Dose: 100 mg Benztropine Mesylate (Cogentin) 1 mg PO BID [facility] Last Admin: 11/21/17 08:08 Dose: 1 mg Buspirone HCl (Buspar) 10 mg PO Q12 [facility] Last Admin: 11/21/17 08:10 Dose: 10 mg Calcitriol (Rocaltrol) 0.5 mcg PO BID [facility] Last Admin: 11/21/17 08:09 Dose: 0.5 mcg Calcium Carbonate (Oscal) 1,000 mg PO Q8H [facility] Last Admin: 11/21/17 11:27 Dose: 1,000 mg Clonazepam (Klonopin) 0.5 mg PO DAILY PRN PRN Reason: Anxiety Last Admin: 11/20/17 21:54 Dose: 0.5 mg Dextrose (Dextrose 50% Inj) 0 ml IV STAT PRN; Protocol PRN Reason: Hypoglycemia Protocol Dextrose (Glutose 15) 0 gm PO ONCE PRN; Protocol PRN Reason: Hypoglycemia Protocol Enalapril Maleate (Vasotec) 2.5 mg PO DAILY [facility] Last Admin: 11/18/17 08:55 Dose: 2.5 mg Escitalopram Oxalate (Lexapro) 10 mg PO HS [facility] Last Admin: 11/20/17 21:56 Dose: 10 mg Ferrous Sulfate (Feosol) 325 mg PO DAILY [facility] Last Admin: 11/21/17 08:09 Dose: 325 mg Glucagon (Glucagen Diagnostic Kit) 0 mg IM STAT PRN; Protocol PRN Reason: Hypoglycemia Protocol Heparin Sodium (Porcine) (Heparin) 5,000 units SC Q12H [facility] PRN Reason: Protocol Last Admin: 11/21/17 08:13 Dose: 5,000 units Home Med (Riociguat [Adempas]) 2 mg PO TID [facility] Last Admin: 11/21/17 12:04 Dose: 2 mg Hydrocortisone (Cortef) 10 mg PO HS [facility] Last Admin: 11/20/17 21:55 Dose: 10 mg Insulin Detemir (Levemir) 20 units SC HS [facility] Last Admin: 11/20/17 22:00 Dose: 20 units Insulin Human Lispro (Humalog) 0 units SC [facility] PRN Reason: Protocol Last Admin: 11/21/17 11:29 Dose: Not Given Insulin Human Lispro (Humalog) 6 units SC AC [facility] Last Admin: 11/21/17 11:30 Dose: 6 unit Levalbuterol HCl (Xopenex) 0.63 mg INH RQ8 PRN PRN Reason: Wheezing Levothyroxine Sodium (Synthroid) 50 mcg PO DAILY@0630 [facility] Last Admin: 11/21/17 05:57 Dose: 50 mcg Magnesium Oxide (Mag-Ox) 400 mg PO BID [facility] Last Admin: 11/21/17 08:10 Dose: 400 mg Methylprednisolone (Solu-Medrol) 20 mg IVP DAILY [facility] Last Admin: 11/21/17 08:40 Dose: 20 mg Metoprolol Tartrate (Lopressor) 25 mg PO Q12 [facility] Last Admin: 11/21/17 08:10 Dose: 25 mg Pantoprazole Sodium (Protonix Ec Tab) 20 mg PO DAILY [facility] Last Admin: 11/21/17 11:28 Dose: 20 mg Fluticasone/Salmeterol (Advair Diskus 250/50) 1 puff IH Q12 [facility] Last Admin: 11/21/17 08:08 Dose: 1 puff Torsemide (Demadex) 20 mg PO Q48H [facility] Last Admin: 11/21/17 08:12 Dose: 20 mg - Labs Labs: 11/21/17 04:10 11/21/17 04:10 Attending/Attestation - Attestation I have personally seen and examined this patient.: Yes I have fully participated in the care of the patient.: Yes I have reviewed all pertinent clinical information, including history, physical exam and plan: Yes Notes (Text): Electrolyte Imbalance , improving COPD exacerbation - SOB better however pt with persistent cough, no fever - rpt CXR - cont IV Solumedrol, Xopenex
[2017-11-21] MEDS: Fluticasone-Salmeterol 250-50mcg Diskus IH SCH ×2 (08:08→21:06)
[2017-11-21] MEDS: RIOCIGUAT 2 MG PO SCH ×3 (08:10→16:49)
[2017-11-21] MEDS: Magnesium Oxide 400 mg Tab UD PO SCH ×2 (08:10→16:49)
[2017-11-21] MEDS: Insulin Lispro (humaLOG) 100 Units/ml Inj SC SCH ×7 (08:13→22:15)
[2017-11-21] MEDS: MethylPREDNISolone 40 mg Vial IVP SCH (08:40)
[2017-11-21] MEDS: Pantoprazole 20 mg EC Tab PO SCH (11:28)
--- NOTE | 2017-11-21 15:07 | RAD ---
Date of service: 11/21/2017 HISTORY: cough, bibasilar crackles. COMPARISON: 11/18/2017 TECHNIQUE: Chest PA and lateral FINDINGS: LUNGS: Chronic right hemidiaphragm eventration is noted. Mild interstitial changes are stable. No new focal alveolar infiltrate or CHF is seen. PLEURA: No significant pleural effusion identified. No pneumothorax apparent. CARDIOVASCULAR: Unchanged. OSSEOUS STRUCTURES: No significant abnormalities. VISUALIZED UPPER ABDOMEN: Normal. OTHER FINDINGS: None. IMPRESSION: No focal infiltrate.
--- NOTE | 2017-11-21 16:50 | PN ---
DATE: 11/21/2017 ENDO FOLLOWUP NOTE LOCATION: Room 413. SUBJECTIVE: This is a 71-year-old female with recent uncontrolled type 2 insulin-requiring diabetes, now being followed closely for metabolic management. She presented here with symptomatic hypocalcemia and dehydration and has received vigorous IV hydration and intensive calcium supplementation both orally and parenterally as noted thereof. Her repeat chemistries today shows a BUN of 26, sodium 136, potassium 4.9, chloride 98, CO2 30, glucose 167, and creatinine 1. Her calcium level is 7.5 now, with an albumin level of 3.3 and a corrected calcium of 8.2 mg/dL. So at this time, we will continue the same basal and bolus insulin regimen to allow for dose equilibration and keep her on the Humalog given as 6 units subcutaneously t.i.d. before meals as ordered. We will continue the basal insulin given as Levemir at 20 units subcutaneously at bedtime daily as given. We will obtain serial chemistries and supplement accordingly as needed. We will follow. So we will also continue the levothyroxine given as 50 mcg once daily in the morning and obtain serial thyroid status and adjust the dose regimen accordingly. Irene Mann MD
[2017-11-21] MEDS: Insulin Detemir 100 Units/ml Inj SC SCH (22:17)
[2017-11-22 00:13] VITALS: RESP 18
--- NOTE | 2017-11-22 00:24 | CP.PCM.PN ---
Subjective - Date & Time of Evaluation Date of Evaluation: 11/19/17 Time of Evaluation: 12:00 - Subjective Subjective: No complaints. Objective - Vital Signs/Intake and Output Vital Signs (last 24 hours): Temp Pulse Resp BP Pulse Ox 97.4 F L 60 18 132/57 L 98 11/22/17 00:12 11/22/17 00:12 11/22/17 00:12 11/22/17 00:12 11/22/17 00:12 - Medications Medications: Current Medications Aripiprazole (Abilify) 5 mg PO HS [facility] Last Admin: 11/21/17 21:07 Dose: 5 mg Aspirin (Ecotrin) 81 mg PO DAILY [facility] Last Admin: 11/21/17 08:12 Dose: 81 mg Atorvastatin Calcium (Lipitor) 20 mg PO HS [facility] Last Admin: 11/21/17 21:07 Dose: 20 mg Benzonatate (Tessalon Perles) 100 mg PO TID [facility] Last Admin: 11/21/17 16:49 Dose: 100 mg Benztropine Mesylate (Cogentin) 1 mg PO BID [facility] Last Admin: 11/21/17 16:51 Dose: 1 mg Buspirone HCl (Buspar) 10 mg PO Q12 [facility] Last Admin: 11/21/17 21:07 Dose: 10 mg Calcitriol (Rocaltrol) 0.5 mcg PO BID [facility] Last Admin: 11/21/17 16:50 Dose: 0.5 mcg Calcium Carbonate (Oscal) 1,000 mg PO Q8H [facility] Last Admin: 11/21/17 17:30 Dose: 1,000 mg Clonazepam (Klonopin) 0.5 mg PO DAILY PRN PRN Reason: Anxiety Last Admin: 11/20/17 21:54 Dose: 0.5 mg Dextrose (Dextrose 50% Inj) 0 ml IV STAT PRN; Protocol PRN Reason: Hypoglycemia Protocol Dextrose (Glutose 15) 0 gm PO ONCE PRN; Protocol PRN Reason: Hypoglycemia Protocol Enalapril Maleate (Vasotec) 2.5 mg PO DAILY [facility] Last Admin: 11/18/17 08:55 Dose: 2.5 mg Escitalopram Oxalate (Lexapro) 10 mg PO HS [facility] Last Admin: 11/21/17 21:07 Dose: 10 mg Ferrous Sulfate (Feosol) 325 mg PO DAILY [facility] Last Admin: 11/21/17 08:09 Dose: 325 mg Glucagon (Glucagen Diagnostic Kit) 0 mg IM STAT PRN; Protocol PRN Reason: Hypoglycemia Protocol Heparin Sodium (Porcine) (Heparin) 5,000 units SC Q12H [facility] PRN Reason: Protocol Last Admin: 11/21/17 20:15 Dose: 5,000 units Home Med (Riociguat [Adempas]) 2 mg PO TID [facility] Last Admin: 11/21/17 16:49 Dose: 2 mg Hydrocortisone (Cortef) 10 mg PO HS [facility] Last Admin: 11/21/17 21:07 Dose: 10 mg Insulin Detemir (Levemir) 20 units SC HS [facility] Last Admin: 11/21/17 22:17 Dose: 20 units Insulin Human Lispro (Humalog) 0 units SC ACHS [facility] PRN Reason: Protocol Last Admin: 11/21/17 22:15 Dose: Not Given Insulin Human Lispro (Humalog) 6 units SC AC [facility] Last Admin: 11/21/17 16:48 Dose: 139 unit Levalbuterol HCl (Xopenex) 0.63 mg INH RQ8 PRN PRN Reason: Wheezing Levothyroxine Sodium (Synthroid) 50 mcg PO DAILY@0630 [facility] Last Admin: 11/21/17 05:57 Dose: 50 mcg Magnesium Oxide (Mag-Ox) 400 mg PO BID [facility] Last Admin: 11/21/17 16:49 Dose: 400 mg Methylprednisolone (Solu-Medrol) 20 mg IVP DAILY [facility] Last Admin: 11/21/17 08:40 Dose: 20 mg Metoprolol Tartrate (Lopressor) 25 mg PO Q12 [facility] Last Admin: 11/21/17 21:07 Dose: 25 mg Pantoprazole Sodium (Protonix Ec Tab) 20 mg PO DAILY [facility] Last Admin: 11/21/17 11:28 Dose: 20 mg Fluticasone/Salmeterol (Advair Diskus 250/50) 1 puff IH Q12 [facility] Last Admin: 11/21/17 21:06 Dose: 1 puff Torsemide (Demadex) 20 mg PO Q48H [facility] Last Admin: 11/21/17 08:12 Dose: 20 mg - Labs Labs: 11/21/17 04:10 11/21/17 04:10 - Head Exam Head Exam: ATRAUMATIC - Eye Exam Eye Exam: Normal appearance - ENT Exam ENT Exam: Mucous Membranes Dry - Respiratory Exam Respiratory Exam: NORMAL BREATHING PATTERN - Cardiovascular Exam Cardiovascular Exam: +S1, +S2 - GI/Abdominal Exam GI & Abdominal Exam: Normal Bowel Sounds Assessment and Plan (1) Electrolyte abnormality Assessment & Plan: suspect Revlimid related unfortunately persists despite lowest possible dose of Revlimid; will discontinue supplementation per primary team Status: Acute (2) Anemia Assessment & Plan: chronic disease and multiple myeloma Status: Resolved (3) Multiple myeloma Assessment & Plan: outpatient treatment Status: Chronic
--- NOTE | 2017-11-22 00:26 | CP.PCM.PN ---
Subjective - Date & Time of Evaluation Date of Evaluation: 11/20/17 Time of Evaluation: 17:00 - Subjective Subjective: Feeling better Objective - Vital Signs/Intake and Output Vital Signs (last 24 hours): Temp Pulse Resp BP Pulse Ox 97.4 F L 62 18 132/57 L 98 11/22/17 00:12 11/22/17 00:22 11/22/17 00:12 11/22/17 00:12 11/22/17 00:12 - Medications Medications: Current Medications Aripiprazole (Abilify) 5 mg PO HS [facility] Last Admin: 11/21/17 21:07 Dose: 5 mg Aspirin (Ecotrin) 81 mg PO DAILY [facility] Last Admin: 11/21/17 08:12 Dose: 81 mg Atorvastatin Calcium (Lipitor) 20 mg PO HS [facility] Last Admin: 11/21/17 21:07 Dose: 20 mg Benzonatate (Tessalon Perles) 100 mg PO TID [facility] Last Admin: 11/21/17 16:49 Dose: 100 mg Benztropine Mesylate (Cogentin) 1 mg PO BID [facility] Last Admin: 11/21/17 16:51 Dose: 1 mg Buspirone HCl (Buspar) 10 mg PO Q12 [facility] Last Admin: 11/21/17 21:07 Dose: 10 mg Calcitriol (Rocaltrol) 0.5 mcg PO BID [facility] Last Admin: 11/21/17 16:50 Dose: 0.5 mcg Calcium Carbonate (Oscal) 1,000 mg PO Q8H [facility] Last Admin: 11/21/17 17:30 Dose: 1,000 mg Clonazepam (Klonopin) 0.5 mg PO DAILY PRN PRN Reason: Anxiety Last Admin: 11/20/17 21:54 Dose: 0.5 mg Dextrose (Dextrose 50% Inj) 0 ml IV STAT PRN; Protocol PRN Reason: Hypoglycemia Protocol Dextrose (Glutose 15) 0 gm PO ONCE PRN; Protocol PRN Reason: Hypoglycemia Protocol Enalapril Maleate (Vasotec) 2.5 mg PO DAILY [facility] Last Admin: 11/18/17 08:55 Dose: 2.5 mg Escitalopram Oxalate (Lexapro) 10 mg PO HS [facility] Last Admin: 11/21/17 21:07 Dose: 10 mg Ferrous Sulfate (Feosol) 325 mg PO DAILY [facility] Last Admin: 11/21/17 08:09 Dose: 325 mg Glucagon (Glucagen Diagnostic Kit) 0 mg IM STAT PRN; Protocol PRN Reason: Hypoglycemia Protocol Heparin Sodium (Porcine) (Heparin) 5,000 units SC Q12H [facility] PRN Reason: Protocol Last Admin: 11/21/17 20:15 Dose: 5,000 units Home Med (Riociguat [Adempas]) 2 mg PO TID [facility] Last Admin: 11/21/17 16:49 Dose: 2 mg Hydrocortisone (Cortef) 10 mg PO HS [facility] Last Admin: 11/21/17 21:07 Dose: 10 mg Insulin Detemir (Levemir) 20 units SC HS [facility] Last Admin: 11/21/17 22:17 Dose: 20 units Insulin Human Lispro (Humalog) 0 units SC ACHS [facility] PRN Reason: Protocol Last Admin: 11/21/17 22:15 Dose: Not Given Insulin Human Lispro (Humalog) 6 units SC AC [facility] Last Admin: 11/21/17 16:48 Dose: 139 unit Levalbuterol HCl (Xopenex) 0.63 mg INH RQ8 PRN PRN Reason: Wheezing Levothyroxine Sodium (Synthroid) 50 mcg PO DAILY@0630 [facility] Last Admin: 11/21/17 05:57 Dose: 50 mcg Magnesium Oxide (Mag-Ox) 400 mg PO BID [facility] Last Admin: 11/21/17 16:49 Dose: 400 mg Methylprednisolone (Solu-Medrol) 20 mg IVP DAILY [facility] Last Admin: 11/21/17 08:40 Dose: 20 mg Metoprolol Tartrate (Lopressor) 25 mg PO Q12 [facility] Last Admin: 11/21/17 21:07 Dose: 25 mg Pantoprazole Sodium (Protonix Ec Tab) 20 mg PO DAILY [facility] Last Admin: 11/21/17 11:28 Dose: 20 mg Fluticasone/Salmeterol (Advair Diskus 250/50) 1 puff IH Q12 [facility] Last Admin: 11/21/17 21:06 Dose: 1 puff Torsemide (Demadex) 20 mg PO Q48H [facility] Last Admin: 11/21/17 08:12 Dose: 20 mg - Labs Labs: 11/21/17 04:10 11/21/17 04:10 - Head Exam Head Exam: ATRAUMATIC - Eye Exam Eye Exam: Normal appearance - ENT Exam ENT Exam: Mucous Membranes Dry - Respiratory Exam Respiratory Exam: NORMAL BREATHING PATTERN - Cardiovascular Exam Cardiovascular Exam: +S1, +S2 - GI/Abdominal Exam GI & Abdominal Exam: Normal Bowel Sounds Assessment and Plan (1) Electrolyte abnormality Assessment & Plan: suspect Revlimid related unfortunately persists despite lowest possible dose of Revlimid; will discontinue supplementation per primary team Status: Acute (2) Anemia Assessment & Plan: chronic disease and multiple myeloma Status: Resolved (3) Multiple myeloma Assessment & Plan: outpatient treatment Status: Chronic
[2017-11-22 05:38] LABS: BASO % 0.2 % (0.0-2.0); EOS % 0.3 % (0.0-4.0); HEMOGLOBIN 9.3 g/dL (12.0-16.0); LYMPH # 0.4 K/uL (1.0-4.3); LYMPH % 7.1 % (20.0-40.0); MEAN CELL VOLUME 89.6 fl (81.0-99.0); MEAN CORPUSCULAR HEMOGLOBIN 30.1 pg (27.0-31.0); MEAN CORPUSCULAR HGB CONC 33.6 g/dL (33.0-37.0); MEAN PLATELET VOLUME 8.7 fl (7.2-11.7); MONO # 1.3 K/uL (0.0-0.8); MONO % 21.3 % (0.0-10.0); NEUT # 4.4 K/uL (1.8-7.0); NEUT % 71.1 % (50.0-75.0); NRBC % 0.1 % (0.0-0.0); PLATELET COUNT 276 K/uL (130-400); RBC 3.08 Mil/uL (3.80-5.20); RED CELL DISTRIBUTION WIDTH 18.7 % (11.5-14.5); WHITE BLOOD COUNT 6.1 K/uL (4.8-10.8)
[2017-11-22 06:05] LABS: ALB/GLOB RATIO 1.1 (1.0-2.1); ALBUMIN 3.1 g/dL (3.5-5.0); ALT/SGPT 109 U/L (9-52); AST/SGOT 119 U/L (14-36); BLOOD UREA NITROGEN 27 mg/dl (7-17); CALCIUM 8.2 mg/dL (8.4-10.2); GFR NON-AFRICAN AMERICAN > 60
[2017-11-22] MEDS: Insulin Lispro (humaLOG) 100 Units/ml Inj SC SCH ×4 (06:36→12:50)
[2017-11-22] MEDS: Levothyroxine 50 MCG TAB PO SCH (07:04)
[2017-11-22] MEDS: Fluticasone-Salmeterol 250-50mcg Diskus IH SCH (08:28)
[2017-11-22] MEDS: Pantoprazole 20 mg EC Tab PO SCH (08:31)
[2017-11-22] MEDS: MethylPREDNISolone 40 mg Vial IVP SCH (08:33)
[2017-11-22 08:36] VITALS: BP 116/74
[2017-11-22 08:47] VITALS: TEMP 98; O2SAT 97
[2017-11-22 09:26] LABS: ANISOCYTOSIS SLIGHT; LYMPHOCYTE 7 % (20-50); MONOCYTE 25 % (0-10); NEUTROPHIL 68 % (42-75); PLATELET ESTIMATE NORMAL (NORMAL); TOTAL CELLS COUNTED 100
[2017-11-22 09:27] LABS: HYPOCHROMIC SLIGHT
[2017-11-22 10:42] VITALS: PULSE 69
--- NOTE | 2017-11-22 11:46 | CP.PCM.DIS ---
Provider - Provider Date of Admission: 11/17/17 12:03 Attending physician: David Neumann MD Consults: Nephro: Dr Nava Heme/Onc: Dr Vilchis Time Spent in preparation of Discharge (in minutes): 30 Diagnosis - Discharge Diagnosis (1) Acute diarrhea Status: Resolved (2) Dehydration Status: Resolved (3) Electrolyte abnormality Status: Resolved (4) Hyperglycemia Status: Acute (5) Hypocalcemia syndrome Status: Resolved Priority: Medium (6) COPD (chronic obstructive pulmonary disease) Status: Chronic (7) Multiple myeloma Status: Chronic Hospital Course - Lab Results Lab Results: Micro Results 11/17/17 18:20 Urine Urine Culture - Final MULTIPLE SPECIES. SUGGEST REPEAT SPECIMEN. Most Recent Lab Values WBC 6.1 K/uL (4.8-10.8) 11/22/17 04:55 RBC 3.08 Mil/uL (3.80-5.20) L 11/22/17 04:55 Hgb 9.3 g/dL (12.0-16.0) L 11/22/17 04:55 Hct 27.6 % (34.0-47.0) L 11/22/17 04:55 MCV 89.6 fl (81.0-99.0) 11/22/17 04:55 MCH 30.1 pg (27.0-31.0) 11/22/17 04:55 MCHC 33.6 g/dL (33.0-37.0) 11/22/17 04:55 RDW 18.7 % (11.5-14.5) H 11/22/17 04:55 Plt Count 276 K/uL (130-400) 11/22/17 04:55 MPV 8.7 fl (7.2-11.7) 11/22/17 04:55 Neut % (Auto) 71.1 % (50.0-75.0) 11/22/17 04:55 Lymph % (Auto) 7.1 % (20.0-40.0) L 11/22/17 04:55 [place] % (Auto) 21.3 % (0.0-10.0) H 11/22/17 04:55 Eos % (Auto) 0.3 % (0.0-4.0) 11/22/17 04:55 Baso % (Auto) 0.2 % (0.0-2.0) 11/22/17 04:55 Neut # (Auto) 4.4 K/uL (1.8-7.0) 11/22/17 04:55 Lymph # (Auto) 0.4 K/uL (1.0-4.3) L 11/22/17 04:55 Sargent # (Auto) 1.3 K/uL (0.0-0.8) H 11/22/17 04:55 Eos # (Auto) 0.0 K/uL (0.0-0.7) 11/22/17 04:55 Baso # (Auto) 0.0 K/uL (0.0-0.2) 11/22/17 04:55 Neutrophils % (Manual) 68 % (42-75) 11/22/17 04:55 Lymphocytes % (Manual) 7 % (20-50) L 11/22/17 04:55 Monocytes % (Manual) 25 % (0-10) H 11/22/17 04:55 Platelet Estimate Normal (NORMAL) 11/22/17 04:55 Hypochromasia (manual) Slight 11/22/17 04:55 Anisocytosis (manual) Slight 11/22/17 04:55 Retic Count 2.7 % (0.5-1.5) H 11/19/17 04:20 Sodium 136 mmol/l (132-148) 11/22/17 04:55 Potassium 4.2 MMOL/L (3.6-5.0) 11/22/17 04:55 Chloride 99 mmol/L (98-107) 11/22/17 04:55 Carbon Dioxide 32 mmol/L (22-30) H 11/22/17 04:55 Anion Gap 9 (10-20) L 11/22/17 04:55 BUN 27 mg/dl (7-17) H 11/22/17 04:55 Creatinine 0.9 mg/dl (0.7-1.2) 11/22/17 04:55 Est GFR ( Amer) > 60 11/22/17 04:55 Est GFR (Non-Af Amer) > 60 11/22/17 04:55 POC Glucose (mg/dL) 176 mg/dL (65-110) H 11/22/17 05:37 Random Glucose 170 mg/dL (65-105) H 11/22/17 04:55 Uric Acid 9.1 mg/Dl (2.2-7.5) H 11/18/17 13:30 Calcium 8.2 mg/dL (8.4-10.2) L 11/22/17 04:55 Ionized Calcium 3.4 mg/dL (4.80-5.60) L 11/18/17 11:04 Phosphorus 2.8 mg/dl (2.5-4.5) 11/19/17 04:20 Magnesium 1.9 MG/DL (1.6-2.3) 11/21/17 04:10 Ferritin 157.0 ng/Ml (11.1-264.0) 11/19/17 04:20 Total Bilirubin 0.3 mg/dl (0.2-1.3) 11/22/17 04:55 AST 119 U/L (14-36) H D 11/22/17 04:55 ALT 109 U/L (9-52) H 11/22/17 04:55 Alkaline Phosphatase 257 U/L (38-126) H 11/22/17 04:55 Total Creatine Kinase 154 U/L (30-135) H 11/20/17 16:20 Total Protein 5.8 G/DL (6.3-8.2) L 11/22/17 04:55 Albumin 3.1 g/dL (3.5-5.0) L 11/22/17 04:55 Globulin 2.7 gm/dL (2.2-3.9) 11/22/17 04:55 Albumin/Globulin Ratio 1.1 (1.0-2.1) 11/22/17 04:55 Vitamin B12 958 pg/mL (239-931) H 11/19/17 04:20 25-OH Vitamin D Total 36.4 NG/ML (30.0-100.0) 11/19/17 04:20 Folate 12.1 ng/mL 11/19/17 04:20 Free T4 0.30 ng/dL (0.78-2.19) L 11/18/17 09:30 TSH 3rd Generation 8.91 mIU/ML (0.46-4.68) H 11/18/17 09:30 PTH Intact Whole Molec 88 pg/mL (14-64) H 11/18/17 09:30 Cortisol AM Sample 24.5 ug/dL (4.46-22.7) H 11/19/17 04:20 Urine Color Yellow (YELLOW) 11/19/17 15:18 Urine Clarity Clear (Clear) 11/19/17 15:18 Urine pH 6.0 (5.0-8.0) 11/19/17 15:18 Ur Specific [place] 1.013 (1.003-1.030) 11/19/17 15:18 Urine Protein Negative mg/dL (NEGATIVE) 11/19/17 15:18 Urine Glucose (UA) Neg mg/dL (Normal) 11/19/17 15:18 Urine Ketones Negative mg/dL (NEGATIVE) 11/19/17 15:18 Urine Blood Negative (NEGATIVE) 11/19/17 15:18 Urine Nitrate Negative (NEGATIVE) 11/19/17 15:18 Urine Bilirubin Negative (NEGATIVE) 11/19/17 15:18 Urine Urobilinogen 0.2-1.0 mg/dL (0.2-1.0) 11/19/17 15:18 Ur Leukocyte Esterase Neg Maggie/uL (Negative) 11/19/17 15:18 Urine RBC (Auto) 3 /hpf (0-3) 11/19/17 15:18 Urine Microscopic WBC 1 /hpf (0-5) 11/19/17 15:18 Ur Squamous Epith Cells < 1 /hpf (0-5) 11/19/17 15:18 Urine Osmolality 332 mosm/kg (300-1000) 11/19/17 13:20 Ur Random Creatinine 69.3 mg/dL 11/19/17 13:20 Ur Random Sodium < 5 mmol/L 11/19/17 13:20 Ur Random Potassium 20.8 mmol/L 11/19/17 13:20 Ur Random Calcium < 1.0 mg/dL 11/18/17 14:18 - Hospital Course Hospital Course: 71 YO Female with sig PMHx of Multiple Myeloma, hx of multiple fractures, IDDM type 2, HTN, Pulm HTN, COPD on home oxygen and CPAP, hx of PE s/p IVC filter in 2014, GERD, Depression was admitted for dehydration due to acute diarrhea and electrolyte abnormalities. Pt was found to be severe electrolyte abnormalities ( Ca, Mg, Phos, Na, K), with changes noted in EKG including prolong QT. Diarrhea and Electrolyte abnormalities have resolved, medications optimized. Dr Vilchis was on board who d/c Revlimid considering as cause of diarrhea. Dr Nava was also consulted. Will d/c patient home with instructions of follow up with Dr. Neumann on 12/01 at [facility] and Dr. Vilchis in 1 week. As per Nephro pt to start with Torsemide 20mg daily and down Ca carbonate to 500mg Q8H. Eprescribed to pts pharmacy. Discharge Exam - Head Exam Head Exam: ATRAUMATIC - Eye Exam Eye Exam: EOMI, PERRL - ENT Exam ENT Exam: Mucous Membranes Moist - Respiratory Exam Respiratory Exam: Rales, NORMAL BREATHING PATTERN. absent: Wheezes, Respiratory Distress - Cardiovascular Exam Cardiovascular Exam: REGULAR RHYTHM. absent: Tachycardia - GI/Abdominal Exam GI & Abdominal Exam: Soft. absent: Distended, Tenderness - Neurological Exam Neurological exam: Alert, CN II-XII Intact, Oriented x3 - Psychiatric Exam Psychiatric exam: Normal Mood - Skin Skin Exam: Dry, Warm Discharge Plan - Discharge Medications Prescriptions: Calcium Carbonate [Oscal] 500 mg PO Q8H 30 Days #90 tab Torsemide [Demadex] 20 mg PO DAILY 30 Days #30 tab - Follow Up Plan Condition: FAIR Disposition: HOME/ ROUTINE Instructions: Hyponatremia (DC), Hypocalcemia (DC), Dehydration (DC) Additional Instructions: follow up visit with at 9:40am on 12/01/17 Referrals: David Neumann MD [Family Provider] - [facility] [Outside]
--- NOTE | 2017-11-22 21:22 | PN ---
DATE: 11/22/2017 ENDO FOLLOWUP NOTE ROOM: 413. SUBJECTIVE: This is a 71-year-old female with known history of multiple myeloma with ongoing chemotherapy and presents here with symptomatic hypocalcemia and has since then improved clinically and metabolically as noted thereof. Her glycemic levels were also fluctuating, but have improved accordingly, and the glucose values today have ranged from 176 to 248 mg/dL. LABORATORY DATA: Her latest chemistry showed a BUN of 27, sodium 136, potassium 4.4, chloride 99, CO2 of 32, glucose 170, and creatinine 0.9. She also has elevated liver transaminases as noted. Her latest cortisol level is 24.5 mcg/dL, and her latest calcium level is 8.2 mg/dL with a albumin of 3.1 and a corrected calcium of 9.1 mg/dL. ASSESSMENT AND PLAN: So at this time, we will continue the same hydrocortisone given as 10 mg at bedtime daily as ordered. We will also continue the same basal and bolus insulin regimen as given with Humalog given as 6 units three times a day before meals as ordered. We will also continue the Levemir given as 20 units subcutaneously at bedtime daily as given. She will follow with her medical doctor and her oncologist for ongoing medical management as an outpatient. We will obtain serial chemistries and supplement accordingly as needed. We will follow. Irene Mann MD
== END 2017-11-22 13:45 | disposition home or self-care (01) | DRG 641 ==
LOC: H.ER 08:49 → H.ERHOLD 12:03 → H.MEDSURG1 15:00 → H.TEL 21:38
PROVIDERS: ADMIT Family Medicine; ATTEND Family Medicine
DX: E83.51 Hypocalcemia (principal); C90.00 Multiple myeloma not having achieved remission; J44.1 Chronic obstructive pulmonary disease with (acute) exacerbation; E87.1 Hypo-osmolality and hyponatremia; I50.32 Chronic diastolic (congestive) heart failure; E27.40 Unspecified adrenocortical insufficiency; K52.1 Toxic gastroenteritis and colitis; E86.0 Dehydration; G47.33 Obstructive sleep apnea (adult) (pediatric); Z99.81 Dependence on supplemental oxygen; T45.1X5A Adverse effect of antineoplastic and immunosuppressive drugs, initial encounter; I45.81 Long QT syndrome; E78.00 Pure hypercholesterolemia, unspecified; E87.6 Hypokalemia; G20 Parkinson's disease; Z86.711 Personal history of pulmonary embolism; Z86.718 Personal history of other venous thrombosis and embolism; Z88.6 Allergy status to analgesic agent; I11.0 Hypertensive heart disease with heart failure; M19.90 Unspecified osteoarthritis, unspecified site; I25.10 Atherosclerotic heart disease of native coronary artery without angina pectoris; F32.9 Major depressive disorder, single episode, unspecified; M79.7 Fibromyalgia; K21.9 Gastro-esophageal reflux disease without esophagitis; M06.9 Rheumatoid arthritis, unspecified; E03.9 Hypothyroidism, unspecified; G43.909 Migraine, unspecified, not intractable, without status migrainosus; I27.20 Pulmonary hypertension, unspecified; E11.42 Type 2 diabetes mellitus with diabetic polyneuropathy; E83.42 Hypomagnesemia; D63.0 Anemia in neoplastic disease; Z79.4 Long term (current) use of insulin; E78.5 Hyperlipidemia, unspecified; F41.1 Generalized anxiety disorder; E11.65 Type 2 diabetes mellitus with hyperglycemia; E06.3 Autoimmune thyroiditis; Z79.52 Long term (current) use of systemic steroids; G25.1 Drug-induced tremor; T43.595A Adverse effect of other antipsychotics and neuroleptics, initial encounter

== ENCOUNTER 2017-12-18 15:02 | Inpatient (IN) | payer MEDICARE, OTHER ==
[2017-12-18 15:02] VITALS: BMI 36.6
[2017-12-18] MEDS ORDERED: Sodium Chloride 0.9% 1,000 ML IV STA (16:08)
--- NOTE | 2017-12-18 16:16 | ED PDOC ---
HPI: Abdomen Chief Complaint (Provider): Abdominal Pain History Per: Family (Daughter) History/Exam Limitations: no limitations Current Symptoms Are (Timing): Still Present Additional Complaint(s): 71 y/o female with a PMHx of Anemia, Anxiety, Arthritis, Asthma, CAD, CHF, Depression, Diabetes, DVT, Emphysema, Fibromyalgia, Fractures, GERD, HTN, Hypercholesterolemia, Hypothyroidism, Migraine, Parkinson's Disease, Pneumonia, Pulmonary Embolism, Rheumatoid Arthritis and Sleep Apnea presents with daughter to the ED for evaluation of vomiting and diarrhea since waking up this morning. Daughter additionally reports patient has been complaining of epigastric and LUQ abdominal pain. Vomiting and diarrhea are non-bloody. Daughter also notes pat ient has been complaining of bilateral hip pain and bilateral leg swelling for three days. Otherwise, patient denies shortness of breath, chest pain, fever, hematemesis, melena, hematochezia, sick contacts and recent travel. PMD: David Neumann Oncologist: Luis Eduardo Vilchis <Norberto Mg E - Last Filed: 12/18/17 19:33> <Ann Marie Akers F - Last Filed: 12/18/17 22:47> Time Seen by Provider: 12/18/17 15:48 Chief Complaint (Nursing): Abdominal Pain Supervising Attending Note - Attestation: I have personally seen and examined this patient.: Yes I have fully participated in the care of the patient.: Yes I have reviewed all pertinent clinical information: Yes <Ann Marie Akers F - Last Filed: 12/18/17 22:47> Past Medical History Reviewed: Historical Data, Nursing Documentation, Vital Signs Vital Signs: Last Vital Signs Temp 98.6 F 12/18/17 15:05 Pulse 91 H 12/18/17 15:05 Resp 18 12/18/17 15:05 BP 140/65 12/18/17 15:05 Pulse Ox 99 12/18/17 15:05 - Medical History PMH: Anemia, Anxiety, Arthritis, Asthma, CAD, CHF, COPD, Depression, Diabetes, Deep Vein Thrombosis, Emphysema, Fibromyalgia, Fractures, GERD, HTN, Hypercholesterolemia, Hypothyroidism, Migraine, Parkinson's Disease, Pneumonia, Pulmonary Embolism, Rheumatoid Arthritis, Sleep Apnea Denies: HIV, Chronic Kidney Disease - Surgical History Surgical History: Cholecystectomy, Endoscopy, Tonsillectomy - Family History Family History: States: Unknown Family Hx, Diabetes <KamilahharishNorberto E - Last Filed: 12/18/17 19:33> Vital Signs: Last Vital Signs Temp 98.6 F 12/18/17 15:05 Pulse 100 H 12/18/17 20:48 Resp 18 12/18/17 20:48 BP 153/82 H 12/18/17 20:48 Pulse Ox 99 12/18/17 22:37 <Ann Marie Akers F - Last Filed: 12/18/17 22:47> - Home Medications Home Medications: Ambulatory Orders Medication Instructions Recorded RX: Aspirin [Ecotrin] 81 mg PO DAILY 03/05/17 RX: Enalapril Maleate [Vasotec] 2.5 mg PO DAILY 03/05/17 RX: clonazePAM [Klonopin] 0.5 mg PO DAILY PRN 03/05/17 RX: metFORMIN [glucOPHAGE] 500 mg PO BID 03/05/17 RX: ARIPiprazole [Abilify] 2 mg PO HS 05/11/17 RX: Hydrocortisone [Cortef] 10 mg PO HS 05/11/17 RX: Omeprazole 20 mg PO DAILY 05/11/17 RX: Riociguat [Adempas] 2 mg PO TID 11/17/17 RX: Ferrous Sulfate [Feosol] 325 mg PO DAILY tab 11/22/17 RX: Fluticasone/Salmeterol 250/50 1 puff IH Q12 puff 11/22/17 [Advair Diskus 250/50] RX: Torsemide [Demadex] 20 mg PO DAILY 30 Days #30 tab 11/22/17 Atorvastatin [Lipitor] 20 mg PO DAILY 12/18/17 Bortezomib [Velcade] 3.5 mg IM QWK 12/18/17 Duloxetine HCl 20 mg PO DAILY 12/18/17 Insulin Aspart, Recombinant 5 units SC TID 12/18/17 [Novolog] RX: Benztropine [Cogentin] 1 mg PO BID 12/18/17 RX: Escitalopram [Lexapro] 10 mg PO DAILY 12/18/17 RX: Insulin Glargine, Recombina 20 unit SC HS 12/18/17 [Lantus] RX: Levothyroxine [Synthroid] 50 mcg PO DAILY@0630 12/18/17 Ranitidine HCl [Zantac] 150 mg PO BID 12/18/17 - Allergies Allergies/Adverse Reactions: Allergies Allergy/AdvReac Type Severity Reaction Status Date / Time codeine AdvReac syncope, Verified 11/17/17 08:57 diaphoresis Review of Systems ROS Statement: Except As Marked, All Systems Reviewed And Found Negative Constitutional: Negative for: Fever Cardiovascular: Negative for: Chest Pain Respiratory: Negative for: Shortness of Breath Gastrointestinal: Positive for: Vomiting, Abdominal Pain. Negative for: Melena, Hematochezia, Hematemesis Musculoskeletal: Positive for: Leg Pain (Bilateral leg swelling), Other (Hip Pain) <Norberto Mg - Last Filed: 12/18/17 19:33> Physical Exam - Reviewed Nursing Documentation Reviewed: Yes Vital Signs Reviewed: Yes - Physical Exam Appears: Positive for: Uncomfortable, In Acute Distress Head Exam: Positive for: ATRAUMATIC, NORMOCEPHALIC Skin: Positive for: Normal Color, Warm, Dry Eye Exam: Positive for: Normal appearance, EOMI, PERRL ENT: Positive for: Other (Mucous Membranes Dry) Neck: Positive for: Normal, Painless ROM Cardiovascular/Chest: Positive for: Regular Rate, Rhythm. Negative for: Murmur Respiratory: Positive for: Normal Breath Sounds. Negative for: Respiratory Distress Pulses-Dorsalis Pedis (L): 2+ Pulses-Dorsalis Pedis (R): 2+ Gastrointestinal/Abdominal: Positive for: Normal Exam, Soft, Tenderness (LUQ and Epigastric Tenderness). Negative for: Guarding, Other (Chidi's Sign) Extremity: Positive for: Capillary Refill (< 2 seconds), Swelling (Minimal pitting edema noted to the bilateral lower extremities). Negative for: Tenderness (Tenderness to the pelvic or hip.) Neurologic/Psych: Positive for: Alert, Oriented (x3). Negative for: Motor/Sensory Deficits <Norberto Mg - Last Filed: 12/18/17 19:33> - Laboratory Results Result Diagrams: 12/18/17 16:30 12/18/17 16:30 - ECG O2 Sat by Pulse Oximetry: 99 (RA) Pulse Ox Interpretation: Normal <Norberto Mg - Last Filed: 12/18/17 19:33> - Laboratory Results Result Diagrams: 12/18/17 16:30 12/18/17 16:30 <Ann Marie Akers F - Last Filed: 12/18/17 22:47> Medical Decision Making Medical Decision Making: Time: 1608 Plan: -- CT Abd/Pelvis PO & IV Contrast -- B-Type Natriuretic Peptide -- CMP -- Lipase -- Troponin I -- CBC with differentials -- CXR Portable -- Sodium Chloride IV 120 mls/hr -- Iohexol 50 ml PO -- Zofran Inj 4 mg IVP -- IV Insertion -- Pelvis One View XR -- Urinalysis -- US Duplex Lower Extremity Vein Bilateral 1820 CXR: RUL infiltrate Case d/w Dr. Akers who recommends adding CT chest w/ IV contrast, rocephin IV, zithromax IV, blood cultures x 2. Orders placed. Duplex b/l lower extremity vein: no DVT. Scribe Attestation: Documented by Alli Damian, acting as a scribe Ariane Mg PA-C. Provider Scribe Attestation: All medical record entries made by the Scribe were at my direction and personally dictated by me. I have reviewed the chart and agree that the record accurately reflects my personal performance of the history, physical exam, medical decision making, and the department course for this patient. I have also personally directed, reviewed, and agree with the discharge instructions and disposition. <Norberto Mg - Last Filed: 12/18/17 19:33> Disposition - Patient ED Disposition Is Patient to be Admitted: Transfer of Care (Signed out to Chava WILD pending diagnostic results and disposition) - Disposition Disposition Time: 20:00 <Norberto Mg - Last Filed: 12/18/17 19:33> <Ann Marie Akers - Last Filed: 12/18/17 22:47> - Clinical Impression Clinical Impression: Pneumonia, Partial small bowel obstruction, Abdominal pain, Vomiting - Disposition Condition: FAIR
[2017-12-18] MEDS: Iohexol 240 (50 ml) PO ONE ×2 (16:19→17:45)
[2017-12-18] MEDS ORDERED: Iohexol 240 (50 ml) ONE (16:20)
[2017-12-18 16:42] LABS: BASO # 0.1 K/uL (0.0-0.2); BASO % 0.6 % (0.0-2.0); EOS # 0.2 K/uL (0.0-0.7); EOS % 2.1 % (0.0-4.0); HEMOGLOBIN 11.5 g/dL (12.0-16.0); LYMPH # 0.4 K/uL (1.0-4.3); LYMPH % 4.1 % (20.0-40.0); MEAN CELL VOLUME 89.1 fl (81.0-99.0); MEAN CORPUSCULAR HEMOGLOBIN 29.2 pg (27.0-31.0); MEAN CORPUSCULAR HGB CONC 32.7 g/dL (33.0-37.0); MEAN PLATELET VOLUME 8.5 fl (7.2-11.7); MONO # 1.1 K/uL (0.0-0.8); MONO % 12.2 % (0.0-10.0); NEUT # 7.4 K/uL (1.8-7.0); NRBC % 0.1 % (0.0-0.0); PLATELET COUNT 319 K/uL (130-400); RBC 3.94 Mil/uL (3.80-5.20); RED CELL DISTRIBUTION WIDTH 18.4 % (11.5-14.5); WHITE BLOOD COUNT 9.1 K/uL (4.8-10.8)
[2017-12-18 17:02] LABS: ALB/GLOB RATIO 1.1 (1.0-2.1); ALT/SGPT 48 U/L (9-52); AST/SGOT 43 U/L (14-36); BLOOD UREA NITROGEN 18 mg/dl (7-17); GFR NON-AFRICAN AMERICAN > 60; LIPASE 14 U/L (23-300)
[2017-12-18 17:03] LABS: B-TYPE NATRIURETIC PEPTIDE 415 pg/ml (0-900)
[2017-12-18 17:29] LABS: EOSINOPHIL 2 % (0-7); LYMPHOCYTE 7 % (20-50); METAMYELOCYTE 2 % (0-0); MONOCYTE 5 % (0-10); NEUTROPHIL 84 % (42-75); TOTAL CELLS COUNTED 100
[2017-12-18 17:30] LABS: PLATELET ESTIMATE NORMAL (NORMAL)
[2017-12-18 17:31] LABS: ANISOCYTOSIS SLIGHT; OVALOCYTES SLIGHT; POIKILOCYTOSIS SLIGHT
[2017-12-18 17:32] LABS: PLATELET CLUMPS PRESENT
[2017-12-18] MEDS ORDERED: Azithromycin 500 MG in Sodium Chloride 0.9% 250 ML IVPB STA (18:19)
[2017-12-18] MEDS ORDERED: Iodixanol 320 MG/ML 100 ML BOTTLE IV ONE (18:41)
[2017-12-18] MEDS ORDERED: Sodium Chloride 0.9% 50 ML IV ONE (18:41)
[2017-12-18] MEDS ORDERED: cefTRIAXone (Rocephin) 1 gm Inj ONE (18:45)
[2017-12-18] MEDS ORDERED: Azithromycin 500 MG IV IVPB ONE (18:45)
[2017-12-18 19:52] LABS: VENOUS BLOOD GAS BASE EXCESS 3.7 mmol/L (0.0-2.0); VENOUS BLOOD GAS PCO2 57 mmHg (40-60); VENOUS BLOOD GAS PO2 24 mm/Hg (30-55); VENOUS BLOOD PH 7.34 (7.32-7.43)
--- NOTE | 2017-12-18 20:17 | ED PDOC ---
- Laboratory Results Result Diagrams: 12/18/17 16:30 12/18/17 16:30 - ECG O2 Sat by Pulse Oximetry: 99 (RA) Pulse Ox Interpretation: Normal Medical Decision Making Medical Decision Making: Case endorsed to brief writer, Chava WILD, at 1999 due to shift change. Pertinent details reviewed. Patient pending CT results and consult to family practice resident for admission. Labs reviewed. CXR: (+) infiltrate. 2044 CT chest, abdomen, pelvis with IV contrast: Mild infiltrate lung bases. Small amount of fluid about the superior aspect of the liver. Small polyp suggested within the gallbladder. Atrophic pancreas. Multiple moderately distended loops of small bowel seen throughout the abdomen into the lower pelvis raising suspicion of at least partial small bowel obstruction. Small ventral wall hernia. IVC filter. Moderate compression deformity of the T12 vertebral body. Clinical correlation advised. Electronically signed on Dec 18, 2017 7:45:35 PM EDT by Chase Farooq M.D. ([facility]). Consult placed to family practice resident. 2049 Case discussed with family practice resident, Dr Chapman, who is agreeable to admission and evaluation in ED. Arrangements made for admission to telemetry under Dr Neumann. Consult placed to surgical coordinator. 2099 Case discussed with surgical coordinator, Dr Lloyd, who is agreeable to evaluation. Disposition Counseled Patient/Family Regarding: Studies Performed, Diagnosis - Clinical Impression Clinical Impression: Pneumonia, Partial small bowel obstruction, Abdominal pain, Vomiting - POA Present On Arrival: None - Disposition Disposition: Admitted as In-Patient Disposition Time: 20:48 Condition: FAIR Results - Lab Results Lab Results: 12/18/17 12/18/17 12/18/17 18:21 16:30 16:30 WBC 9.1 RBC 3.94 Hgb 11.5 L D Hct 35.1 MCV 89.1 MCH 29.2 MCHC 32.7 L RDW 18.4 H Plt Count 319 MPV 8.5 Neut % (Auto) 81.0 H Lymph % (Auto) 4.1 L [place] % (Auto) 12.2 H Eos % (Auto) 2.1 Baso % (Auto) 0.6 Neut # (Auto) 7.4 H Lymph # (Auto) 0.4 L [place] # (Auto) 1.1 H Eos # (Auto) 0.2 Baso # (Auto) 0.1 Neutrophils % (Manual) 84 H Lymphocytes % (Manual) 7 L Monocytes % (Manual) 5 Eosinophils % (Manual) 2 Metamyelocytes % 2 H Platelet Estimate Normal Plt Clumps, EDTA Present Poikilocytosis (manual Slight Anisocytosis (manual) Slight Ovalocytes Slight pO2 24 L VBG pH 7.34 VBG pCO2 57 VBG HCO3 26.3 VBG Total CO2 32.5 H VBG O2 Sat (Calc) 40.5 VBG Base Excess 3.7 H VBG Potassium 3.9 Glucose 173 H Lactate 1.1 FiO2 21.0 Sodium 132.0 135 Potassium 4.2 Chloride 97.0 L 97 L Carbon Dioxide 31 H Anion Gap 11 BUN 18 H Creatinine 0.8 Est GFR ( Amer) > 60 Est GFR (Non-Af Amer) > 60 Random Glucose 154 H Calcium 9.0 Total Bilirubin 0.6 AST 43 H D ALT 48 Alkaline Phosphatase 143 H D Troponin I < 0.0120 NT-Pro-B Natriuret Pep 415 Total Protein 7.4 Albumin 4.0 Globulin 3.5 Albumin/Globulin Ratio 1.1 Lipase 14 L Venous Blood Potassium 3.9
--- NOTE | 2017-12-18 21:31 | CP.PCM.HP ---
<Victorina CabanSakshi Rosa - Last Filed: 12/18/17 23:23> History of Present Illness - History of Present Illness History of Present Illness: 71 y/o female with PMHx of HTN, T2DM, CAD, Hypothyroidsm, Depression, Multiple myeloma, Pulmonary hypertension, and COPD on home oxygen, sleep apnea on CPAP machine, who presents to the ED reporting 2 days history of increase epigastric burning like abdominal pain( chronic however worsening, but pt can not tell since when), nausea, 5-6 yellowish non bloody emesis today, chills( since today), wet cough associated with yellowish-green sputum, bilateral/intermittent episodes of frontal headaches, stuffy nose, multiple episodes of non bloody diarrheas, very poor appetite. Denies fevers, runny nose, sick contacts at home. Also patient reports a diffuse abdominal pain, but she can not tell for how many days. ROS: All systems reviewed and found negative at this time, except as per HPI. PMD: Dr David Neumann Psych: Dr Chase Miller Appliance Technician: Dr Cisneros Oncology: Dr Vilchis PMH: Multiple M, T2DM, HTN, COPD on home Oxigen at 2L NC and also uses CPAP at home, Hypothyroidsm, GERD, hx of PE s/p IVC filter 2014. FMH: Father had Lung CA and HTN, Mother of a heart attack. Allergy: Codeine. SURG: Ankle fracture repair, Cholecystectomy, Breast cyst surgery x2, tonsillectomy. SOC: Denies Tobacco/ETOH/Rec Drug use. Next of Kin: Daughter Megha [phone] Code status: Full code. Present on Admission - Present on Admission Any Indicators Present on Admission: No History of DVT/PE: No History of Uncontrolled Diabetes: No Urinary Catheter: No Decubitus Ulcer Present: No Review of Systems - Review of Systems All systems: reviewed and no additional remarkable complaints except (as per HPI) Past Patient History - Infectious Disease Hx of Infectious Diseases: None - Tetanus Immunizations Tetanus Immunization: Unknown - Past Medical History & Family History Past Medical History?: Yes - Past Social History Smoking Status: Never Smoked - CARDIAC Hx Congestive Heart Failure: Yes Hx Hypercholesterolemia: Yes Hx Hypertension: Yes - PULMONARY Hx Asthma: Yes Hx Chronic Obstructive Pulmonary Disease (COPD): Yes Hx Emphysema: Yes Hx Pneumonia: Yes Hx Pulmonary Embolism: Yes Hx Sleep Apnea: Yes - NEUROLOGICAL Hx Migraine: Yes Hx Parkinson's Disease: Yes - HEENT Hx Deafness: Yes - RENAL Hx Chronic Kidney Disease: No - ENDOCRINE/METABOLIC Hx Hypothyroidism: Yes - HEMATOLOGICAL/ONCOLOGICAL Hx Anemia: Yes Hx Human Immunodeficiency Virus (HIV): No - INTEGUMENTARY Hx Dermatological Problems: No - MUSCULOSKELETAL/RHEUMATOLOGICAL Hx Arthritis: Yes Hx Fractures: Yes Hx Rheumatoid Arthritis: Yes - GASTROINTESTINAL Hx Gastrointestinal Disorders: No - GENITOURINARY/GYNECOLOGICAL Hx Genitourinary Disorders: Yes Hx Incontinence: Yes - PSYCHIATRIC Hx Anxiety: Yes Hx Depression: Yes - SURGICAL HISTORY Hx Cholecystectomy: Yes Hx Tonsillectomy: Yes - ANESTHESIA Hx Anesthesia: Yes Hx Anesthesia Reactions: Yes (Resp. Distress) Hx Malignant Hyperthermia: No Meds Allergies/Adverse Reactions: Allergies Allergy/AdvReac Type Severity Reaction Status Date / Time codeine AdvReac syncope, Verified 11/17/17 08:57 diaphoresis Physical Exam - Constitutional Appears: Non-toxic, No Acute Distress - Eye Exam Eye Exam: Normal appearance - ENT Exam ENT Exam: Mucous Membranes Dry - Neck Exam Neck exam: Positive for: Normal Inspection - Respiratory Exam Respiratory Exam: Decreased Breath Sounds, Rales (lung bases bilateral), NORMAL BREATHING PATTERN. absent: Accessory Muscle Use, Chest Wall Tenderness, Prolonged Expiratory Phase, Rhonchi, Wheezes, Respiratory Distress, Stridor - Cardiovascular Exam Cardiovascular Exam: Tachycardia, REGULAR RHYTHM, +S1, +S2 - GI/Abdominal Exam GI & Abdominal Exam: Distended (mild), Normal Bowel Sounds, Soft, Tenderness (diffuse tenderness to palpation, but mostly in epigastrium). absent: Guarding, Rebound, Rigid - Extremities Exam Extremities exam: Positive for: normal inspection. Negative for: calf tenderness, pedal edema - Back Exam Back exam: NORMAL INSPECTION. absent: CVA tenderness (L), CVA tenderness (R) - Neurological Exam Neurological exam: Alert, Oriented x3 Additional comments: mild bilateral upper/lower extremities tremors - Skin Skin Exam: Dry, Intact, Normal Color Results - Vital Signs Recent Vital Signs: Last Vital Signs Temp 98.6 F 12/18/17 15:05 Pulse 100 H 12/18/17 20:48 Resp 18 12/18/17 20:48 BP 153/82 H 12/18/17 20:48 Pulse Ox 99 12/18/17 20:59 - Labs Result Diagrams: 12/18/17 16:30 12/18/17 16:30 Labs: Laboratory Results - last 24 hr 12/18/17 12/18/17 12/18/17 16:30 16:30 18:21 WBC 9.1 RBC 3.94 Hgb 11.5 L D Hct 35.1 MCV 89.1 MCH 29.2 MCHC 32.7 L RDW 18.4 H Plt Count 319 MPV 8.5 Neut % (Auto) 81.0 H Lymph % (Auto) 4.1 L [place] % (Auto) 12.2 H Eos % (Auto) 2.1 Baso % (Auto) 0.6 Neut # (Auto) 7.4 H Lymph # (Auto) 0.4 L [place] # (Auto) 1.1 H Eos # (Auto) 0.2 Baso # (Auto) 0.1 Neutrophils % (Manual) 84 H Lymphocytes % (Manual) 7 L Monocytes % (Manual) 5 Eosinophils % (Manual) 2 Metamyelocytes % 2 H Platelet Estimate Normal Plt Clumps, EDTA Present Poikilocytosis (manual Slight Anisocytosis (manual) Slight Ovalocytes Slight pO2 24 L VBG pH 7.34 VBG pCO2 57 VBG HCO3 26.3 VBG Total CO2 32.5 H VBG O2 Sat (Calc) 40.5 VBG Base Excess 3.7 H VBG Potassium 3.9 Glucose 173 H Lactate 1.1 FiO2 21.0 Sodium 135 132.0 Potassium 4.2 Chloride 97 L 97.0 L Carbon Dioxide 31 H Anion Gap 11 BUN 18 H Creatinine 0.8 Est GFR ( Amer) > 60 Est GFR (Non-Af Amer) > 60 POC Glucose (mg/dL) Random Glucose 154 H Calcium 9.0 Total Bilirubin 0.6 AST 43 H D ALT 48 Alkaline Phosphatase 143 H D Troponin I < 0.0120 NT-Pro-B Natriuret Pep 415 Total Protein 7.4 Albumin 4.0 Globulin 3.5 Albumin/Globulin Ratio 1.1 Lipase 14 L Venous Blood Potassium 3.9 12/18/17 21:23 WBC RBC Hgb Hct MCV MCH MCHC RDW Plt Count MPV Neut % (Auto) Lymph % (Auto) [place] % (Auto) Eos % (Auto) Baso % (Auto) Neut # (Auto) Lymph # (Auto) [place] # (Auto) Eos # (Auto) Baso # (Auto) Neutrophils % (Manual) Lymphocytes % (Manual) Monocytes % (Manual) Eosinophils % (Manual) Metamyelocytes % Platelet Estimate Plt Clumps, EDTA Poikilocytosis (manual Anisocytosis (manual) Ovalocytes pO2 VBG pH VBG pCO2 VBG HCO3 VBG Total CO2 VBG O2 Sat (Calc) VBG Base Excess VBG Potassium Glucose Lactate FiO2 Sodium Potassium Chloride Carbon Dioxide Anion Gap BUN Creatinine Est GFR ( Amer) Est GFR (Non-Af Amer) POC Glucose (mg/dL) 167 H Random Glucose Calcium Total Bilirubin AST ALT Alkaline Phosphatase Troponin I NT-Pro-B Natriuret Pep Total Protein Albumin Globulin Albumin/Globulin Ratio Lipase Venous Blood Potassium Assessment & Plan - Assessment and Plan (Free Text) Assessment: 71 y/o F with extensive PMHx including Multiple myeloma, Pulmonary hypertension, and COPD on home oxygen admitted for pneumonia, and suspected partial small bowel obstruction. Plan: Pneumonia -Telemetry -likely CAP -recent hospitalization -afebrile, no leukoctosis. However could consider that pt is immunocompromised due to h/o multiple comorbidities including MM -basal rales in PE -gentle hydration( h/o pulmonary hypertension) -will start broad spectrum abx -Zosyn 3.375 gm IV Q6 hours -levaquin 750 mg IV daily -s/p ceftriaxone 1 gm IV once in ER -s/p azithromycin 500 mg IV once in ER -f/u Blood Cx x2 -f/u procalcitonin -f/u CBC, BMP in AM -troponin x1 neg -EKG in ER unchanged from prior test -CXR done in ER : read by me: possible LLL infiltrate, but also poss RUL. Pending official report -CT chest w/ IV contrast: preliminary report: mild infiltrate lung bases. Pending official report Nausea/vomiting/Diffuse abdominal pain -N/V could also be part of clinical presentation of pneumonia -suspected partial SBO -NPO for now for bowel rest -gentle IV maintenance -zofran PRN for N/V -s/p Zofran 4 mg x 3 in ER -s/p Protonix 40 mg IV once in ER -lipase low -CT abd/pelvis w/ IV contrast: preliminary report read as suspicion for at least partial small bowel obstruction. -General surgery was consulted in ER, will f/u evaluation, recommendations are appreciated COPD -chronic -no in exacerbation -c/w home adviar diskus 250/50 BID Diabetes mellitus type 2 -chronic -on levemir 20 units SC HS -on lispro insulin 5 unit TID at home. Will start Lispro insulin 5 units Q6 while in hospital -on Lispro insulin coverage per SS low dose -accucheck ACHS -c/w Atorvastatin 20 PO HS -hypoglycemia protocol HTN -chronic, controlled -c/w home Enalapril 2.5 PO QD -c/w home Torsemide -hold home Aspirin 81 mg PO QD for now(will resume if no surgical intervention is recommended) -monitor BP Hypothyroidism -chronic -c/w home Levothyroxine 50 mcg Sleep Apnea -continue CPAP at night -home setting : Pulmonary Hypertension -on home Adempas TID Depression -Chronic, controlled -Outpatient F/u by Dr Chase Miller -on home Clonazepam 0.5 PO PRN anxiety -on home EScitalopram 10 PO QD -on home Duloxetine 20 mg PO -on home Aripiprazole 2 PO QD DVT Prophylaxis -SCDs for now -will start Lovenox 40 mg SC if no surgical intervention is recommended Code Status unknown Full code - Date & Time Date: 12/18/17 Time: 21:30 <Brent Hoff - Last Filed: 12/19/17 06:50> Results - Vital Signs Recent Vital Signs: Last Vital Signs Temp 97.8 F 12/19/17 05:15 Pulse 98 H 12/19/17 05:15 Resp 16 12/19/17 05:15 BP 129/69 12/19/17 05:15 Pulse Ox 100 12/19/17 05:15 - Labs Result Diagrams: 12/18/17 16:30 12/18/17 16:30 Labs: Laboratory Results - last 24 hr 12/18/17 12/18/17 12/18/17 16:30 16:30 18:21 WBC 9.1 RBC 3.94 Hgb 11.5 L D Hct 35.1 MCV 89.1 MCH 29.2 MCHC 32.7 L RDW 18.4 H Plt Count 319 MPV 8.5 Neut % (Auto) 81.0 H Lymph % (Auto) 4.1 L [place] % (Auto) 12.2 H Eos % (Auto) 2.1 Baso % (Auto) 0.6 Neut # (Auto) 7.4 H Lymph # (Auto) 0.4 L [place] # (Auto) 1.1 H Eos # (Auto) 0.2 Baso # (Auto) 0.1 Neutrophils % (Manual) 84 H Lymphocytes % (Manual) 7 L Monocytes % (Manual) 5 Eosinophils % (Manual) 2 Metamyelocytes % 2 H Platelet Estimate Normal Plt Clumps, EDTA Present Poikilocytosis (manual Slight Anisocytosis (manual) Slight Ovalocytes Slight pO2 24 L VBG pH 7.34 VBG pCO2 57 VBG HCO3 26.3 VBG Total CO2 32.5 H VBG O2 Sat (Calc) 40.5 VBG Base Excess 3.7 H VBG Potassium 3.9 Glucose 173 H Lactate 1.1 FiO2 21.0 Sodium 135 132.0 Potassium 4.2 Chloride 97 L 97.0 L Carbon Dioxide 31 H Anion Gap 11 BUN 18 H Creatinine 0.8 Est GFR ( Amer) > 60 Est GFR (Non-Af Amer) > 60 POC Glucose (mg/dL) Random Glucose 154 H Calcium 9.0 Total Bilirubin 0.6 AST 43 H D ALT 48 Alkaline Phosphatase 143 H D Troponin I < 0.0120 NT-Pro-B Natriuret Pep 415 Total Protein 7.4 Albumin 4.0 Globulin 3.5 Albumin/Globulin Ratio 1.1 Lipase 14 L Venous Blood Potassium 3.9 12/18/17 12/19/17 12/19/17 21:23 01:30 05:51 WBC RBC Hgb Hct MCV MCH MCHC RDW Plt Count MPV Neut % (Auto) Lymph % (Auto) [place] % (Auto) Eos % (Auto) Baso % (Auto) Neut # (Auto) Lymph # (Auto) [place] # (Auto) Eos # (Auto) Baso # (Auto) Neutrophils % (Manual) Lymphocytes % (Manual) Monocytes % (Manual) Eosinophils % (Manual) Metamyelocytes % Platelet Estimate Plt Clumps, EDTA Poikilocytosis (manual Anisocytosis (manual) Ovalocytes pO2 VBG pH VBG pCO2 VBG HCO3 VBG Total CO2 VBG O2 Sat (Calc) VBG Base Excess VBG Potassium Glucose Lactate FiO2 Sodium Potassium Chloride Carbon Dioxide Anion Gap BUN Creatinine Est GFR ( Amer) Est GFR (Non-Af Amer) POC Glucose (mg/dL) 167 H 146 H 157 H Random Glucose Calcium Total Bilirubin AST ALT Alkaline Phosphatase Troponin I NT-Pro-B Natriuret Pep Total Protein Albumin Globulin Albumin/Globulin Ratio Lipase Venous Blood Potassium Attending/Attestation - Attestation I have personally seen and examined this patient.: Yes I have fully participated in the care of the patient.: Yes I have reviewed all pertinent clinical information: Yes Notes (Text): 12/19/17 06:40 I saw, examined and discussed this patient with Dr Prajapati. I agree with the assessment and plan outlined above which indicate my direct input. This is a 71 years old female with Hx of CAD, CHF, DM II, PE and DVT who came with 2 days of chills, cough, nausea, vomits and abdominal pain. The CXR showed Bilateral Infiltrates, The CT of abdomen/Pelvis showed signs of Partial Small Bowel Obstruction. Surgery is consulted for the Partial SBO and the patient will be NPO We will treat for Pneumonia because of the bilateral pulmonary infiltrate. Pulmonary consult will be obtained. Brent Hoff MD
[2017-12-18] MEDS ORDERED: Glucagon Recombinant 1 mg Inj IM PRN (21:51)
[2017-12-18] MEDS ORDERED: Dextrose 50% SYRINGE Inj (50 ml) IV PRN (21:51)
[2017-12-18] MEDS ORDERED: Insulin Detemir 100 Units/ml Inj SC SCH (22:00)
--- NOTE | 2017-12-18 22:19 | RAD ---
Date of service: 12/18/2017 HISTORY: abdominal pain COMPARISON: Comparison is made with 11/21/2017 FINDINGS: LUNGS: Interval appearance of patchy ground-glass opacities in the lungs since the previous study. PLEURA: No evidence of significant pleural effusion or pneumothorax. CARDIOVASCULAR: Tech silhouette is enlarged. OSSEOUS STRUCTURES: No significant abnormalities. VISUALIZED UPPER ABDOMEN: Normal. OTHER FINDINGS: None. IMPRESSION: New ground-glass opacities in the lungs. Cardiomegaly.
--- NOTE | 2017-12-18 22:30 | US ---
Date of service: 12/18/2017 PROCEDURE: Bilateral lower extremity venous duplex Doppler. HISTORY: pain and swelling COMPARISON: Comparison is made to the previous study dated 09/30/2016 TECHNIQUE: Bilateral common femoral, superficial femoral, popliteal and posterior tibial veins were evaluated. Flow was assessed with color Doppler, compressibility, assessment of phasic flow and augmentation response. FINDINGS: COMMON FEMORAL VEIN: Right CFV: Unremarkable. Left CFV: Unremarkable. SUPERFICIAL FEMORAL VEIN: Right SFV: Unremarkable. Left SFV: Unremarkable. POPLITEAL VEIN: Right Popliteal: Unremarkable. Left Popliteal: Unremarkable. POSTERIOR TIBIAL VEIN: Right PTV: Unremarkable. Left PTV: Unremarkable. OTHER FINDINGS: None. IMPRESSION: No evidence of deep venous thrombosis. Preliminary report was submitted by [facility]
[2017-12-18] MEDS ORDERED: levoFLOXacin 750 mg in D5W 150 ML BAG IVPB SCH (22:35)
[2017-12-18] MEDS ORDERED: levoFLOXacin 750 mg in D5W 750 MG/150 ML BAG IVPB ONE (22:45)
--- NOTE | 2017-12-18 22:45 | CP.PCM.CON ---
<Angle Lloyd - Last Filed: 12/18/17 22:31> History of Present Illness - History of Present Illness History of Present Illness: Surgery Consult: Dr. Paz Pt is a 71F with PMHx significant for HTN, DM, HLD, Multiple Myeloma, Hypothyroidism, COPD, emphysema on 24hr home O2 and sleep apnea on CPAP at night who presents to the ER with abdominal pain x 1 day. Pt states she started having epigastric abdominal pain yesterday and this morning the pain got worse with several episodes of non-bloody/non-bilious vomiting. Pt also reports non-bloody diarrhea & productive cough with yellow sputum. In the ER, pt had a CT abdomen/pelvis which shows some distended loops of small bowel concerning for partial SBO. Surgery called to evaluate. Currently, she is resting comfortably, states her pain is about the same and still mostly in the epigastric and RUQ region. She admits to 2 more episodes of vomiting in the ER, and states she is also having diarrhea with flatus. Denies fevers but admits to chills. Admits to cough but denies chest pain or SOB. PMHx: as listed above PSHx: cholecystectomy, breast cyst excision x 2, tonsillectomy SocialHx: denies smoking/EtOH/drugs ALL: codeine Review of Systems - Review of Systems All systems: reviewed and no additional remarkable complaints except (as per HPI) Past Patient History - Infectious Disease Hx of Infectious Diseases: None - Tetanus Immunizations Tetanus Immunization: Unknown - Past Medical History & Family History Past Medical History?: Yes - Past Social History Smoking Status: Never Smoked Alcohol: None Drugs: Denies - CARDIAC Hx Congestive Heart Failure: Yes Hx Hypercholesterolemia: Yes Hx Hypertension: Yes - PULMONARY Hx Asthma: Yes Hx Chronic Obstructive Pulmonary Disease (COPD): Yes Hx Emphysema: Yes Hx Pneumonia: Yes Hx Pulmonary Embolism: Yes Hx Sleep Apnea: Yes - NEUROLOGICAL Hx Migraine: Yes Hx Parkinson's Disease: Yes - HEENT Hx Deafness: Yes - RENAL Hx Chronic Kidney Disease: No - ENDOCRINE/METABOLIC Hx Hypothyroidism: Yes - HEMATOLOGICAL/ONCOLOGICAL Hx Anemia: Yes Hx Human Immunodeficiency Virus (HIV): No - INTEGUMENTARY Hx Dermatological Problems: No - MUSCULOSKELETAL/RHEUMATOLOGICAL Hx Arthritis: Yes Hx Fractures: Yes Hx Rheumatoid Arthritis: Yes - GASTROINTESTINAL Hx Gastrointestinal Disorders: No - GENITOURINARY/GYNECOLOGICAL Hx Genitourinary Disorders: Yes Hx Incontinence: Yes - PSYCHIATRIC Hx Anxiety: Yes Hx Depression: Yes - SURGICAL HISTORY Hx Cholecystectomy: Yes Hx Tonsillectomy: Yes - ANESTHESIA Hx Anesthesia: Yes Hx Anesthesia Reactions: Yes (Resp. Distress) Hx Malignant Hyperthermia: No Meds Allergies/Adverse Reactions: Allergies Allergy/AdvReac Type Severity Reaction Status Date / Time codeine AdvReac syncope, Verified 11/17/17 08:57 diaphoresis - Medications Medications: Current Medications Aripiprazole (Abilify) 2 mg PO HS [facility] Aspirin (Ecotrin) 81 mg PO DAILY [facility] Atorvastatin Calcium (Lipitor) 20 mg PO DAILY [facility] Benztropine Mesylate (Cogentin) 1 mg PO BID [facility] Clonazepam (Klonopin) 0.5 mg PO DAILY PRN PRN Reason: Anxiety Dextrose (Dextrose 50% Inj) 0 ml IV STAT PRN; Protocol PRN Reason: Hypoglycemia Protocol Dextrose (Glutose 15) 0 gm PO ONCE PRN; Protocol PRN Reason: Hypoglycemia Protocol Duloxetine HCl (Cymbalta) 20 mg PO DAILY [facility] Enalapril Maleate (Vasotec) 2.5 mg PO DAILY [facility] Enoxaparin Sodium (Lovenox) 40 mg SC DAILY [facility]; Protocol Escitalopram Oxalate (Lexapro) 10 mg PO DAILY [facility] Famotidine (Pepcid) 20 mg PO BID [facility] Ferrous Sulfate (Feosol) 325 mg PO DAILY [facility] Glucagon (Glucagen Diagnostic Kit) 0 mg IM STAT PRN; Protocol PRN Reason: Hypoglycemia Protocol Home Med (Riociguat [Adempas]) 2 mg PO TID [facility] Hydrocortisone (Cortef) 10 mg PO HS [facility] Dextrose/Sodium Chloride (Dextrose 5%-0.9% Ns 500 Ml) 1,000 mls @ 80 mls/hr IV .[id number] [facility] Stop: 12/19/17 21:53 Insulin Detemir (Levemir) 20 units SC HS [facility] Insulin Human Lispro (Humalog) 5 units SC TID [facility] Levothyroxine Sodium (Synthroid) 50 mcg PO DAILY@0630 [facility] Ondansetron HCl (Zofran Inj) 4 mg IVP Q6 PRN PRN Reason: Nausea/Vomiting Pantoprazole Sodium (Protonix Ec Tab) 20 mg PO DAILY [facility] Fluticasone/Salmeterol (Advair Diskus 250/50) 1 puff IH Q12 [facility] Torsemide (Demadex) 20 mg PO DAILY [facility] Physical Exam - Constitutional Appears: Well, No Acute Distress - Head Exam Head Exam: ATRAUMATIC, NORMOCEPHALIC - Eye Exam Eye Exam: Normal appearance - ENT Exam ENT Exam: Mucous Membranes Moist - Respiratory Exam Respiratory Exam: NORMAL BREATHING PATTERN - Cardiovascular Exam Cardiovascular Exam: RRR - GI/Abdominal Exam GI & Abdominal Exam: Soft, Tenderness (epigastric/RUQ ). absent: Distended, Guarding, Rebound - Neurological Exam Neurological exam: Alert, Oriented x3 - Skin Skin Exam: Dry, Warm Results - Vital Signs Recent Vital Signs: Last Vital Signs Temp 98.6 F 12/18/17 15:05 Pulse 100 H 12/18/17 20:48 Resp 18 12/18/17 20:48 BP 153/82 H 12/18/17 20:48 Pulse Ox 99 12/18/17 20:59 - Labs Result Diagrams: 12/18/17 16:30 12/18/17 16:30 Labs: Laboratory Results - last 24 hr 12/18/17 12/18/17 12/18/17 16:30 16:30 18:21 WBC 9.1 RBC 3.94 Hgb 11.5 L D Hct 35.1 MCV 89.1 MCH 29.2 MCHC 32.7 L RDW 18.4 H Plt Count 319 MPV 8.5 Neut % (Auto) 81.0 H Lymph % (Auto) 4.1 L Toole % (Auto) 12.2 H Eos % (Auto) 2.1 Baso % (Auto) 0.6 Neut # (Auto) 7.4 H Lymph # (Auto) 0.4 L Toole # (Auto) 1.1 H Eos # (Auto) 0.2 Baso # (Auto) 0.1 Neutrophils % (Manual) 84 H Lymphocytes % (Manual) 7 L Monocytes % (Manual) 5 Eosinophils % (Manual) 2 Metamyelocytes % 2 H Platelet Estimate Normal Plt Clumps, EDTA Present Poikilocytosis (manual Slight Anisocytosis (manual) Slight Ovalocytes Slight pO2 24 L VBG pH 7.34 VBG pCO2 57 VBG HCO3 26.3 VBG Total CO2 32.5 H VBG O2 Sat (Calc) 40.5 VBG Base Excess 3.7 H VBG Potassium 3.9 Glucose 173 H Lactate 1.1 FiO2 21.0 Sodium 135 132.0 Potassium 4.2 Chloride 97 L 97.0 L Carbon Dioxide 31 H Anion Gap 11 BUN 18 H Creatinine 0.8 Est GFR ( Amer) > 60 Est GFR (Non-Af Amer) > 60 POC Glucose (mg/dL) Random Glucose 154 H Calcium 9.0 Total Bilirubin 0.6 AST 43 H D ALT 48 Alkaline Phosphatase 143 H D Troponin I < 0.0120 NT-Pro-B Natriuret Pep 415 Total Protein 7.4 Albumin 4.0 Globulin 3.5 Albumin/Globulin Ratio 1.1 Lipase 14 L Venous Blood Potassium 3.9 12/18/17 21:23 WBC RBC Hgb Hct MCV MCH MCHC RDW Plt Count MPV Neut % (Auto) Lymph % (Auto) Toole % (Auto) Eos % (Auto) Baso % (Auto) Neut # (Auto) Lymph # (Auto) Toole # (Auto) Eos # (Auto) Baso # (Auto) Neutrophils % (Manual) Lymphocytes % (Manual) Monocytes % (Manual) Eosinophils % (Manual) Metamyelocytes % Platelet Estimate Plt Clumps, EDTA Poikilocytosis (manual Anisocytosis (manual) Ovalocytes pO2 VBG pH VBG pCO2 VBG HCO3 VBG Total CO2 VBG O2 Sat (Calc) VBG Base Excess VBG Potassium Glucose Lactate FiO2 Sodium Potassium Chloride Carbon Dioxide Anion Gap BUN Creatinine Est GFR ( Amer) Est GFR (Non-Af Amer) POC Glucose (mg/dL) 167 H Random Glucose Calcium Total Bilirubin AST ALT Alkaline Phosphatase Troponin I NT-Pro-B Natriuret Pep Total Protein Albumin Globulin Albumin/Globulin Ratio Lipase Venous Blood Potassium - Imaging and Cardiology CT scan - abdomen Status: Image reviewed by me Assessment & Plan - Assessment and Plan (Free Text) Assessment: 71F with abdominal pain & vomiting; surgery consulted for partial SBO seen on CT scan Plan: - Keep NPO with IVF - serial abdominal exams - if pt starts to vomit or abdominal exam worsens, will need NGT - KUB in AM - d/w Dr. Jackson Lloyd <Joe Paz - Last Filed: 12/19/17 16:58> History of Present Illness - History of Present Illness History of Present Illness: Patient was seen and examined at the bedside. Agree with resident's note above. Meds - Medications Medications: Current Medications Albuterol/Ipratropium (Duoneb 3 Mg/0.5 Mg (3 Ml) Ud) 3 ml INH RQ6 PRN PRN Reason: Shortness of Breath Aripiprazole (Abilify) 2 mg PO HS [facility] Last Admin: 12/19/17 02:08 Dose: 2 mg Aspirin (Ecotrin) 81 mg PO DAILY [facility] Atorvastatin Calcium (Lipitor) 20 mg PO DAILY [facility] Last Admin: 12/19/17 08:31 Dose: Not Given Benztropine Mesylate (Cogentin) 1 mg PO BID [facility] Last Admin: 12/19/17 16:07 Dose: Not Given Clonazepam (Klonopin) 0.5 mg PO DAILY PRN PRN Reason: Anxiety Dextrose (Dextrose 50% Inj) 0 ml IV STAT PRN; Protocol PRN Reason: Hypoglycemia Protocol Dextrose (Glutose 15) 0 gm PO ONCE PRN; Protocol PRN Reason: Hypoglycemia Protocol Duloxetine HCl (Cymbalta) 20 mg PO DAILY [facility] Last Admin: 12/19/17 08:30 Dose: Not Given Enalapril Maleate (Vasotec) 2.5 mg PO DAILY [facility] Last Admin: 12/19/17 08:32 Dose: Not Given Enoxaparin Sodium (Lovenox) 40 mg SC DAILY [facility]; Protocol Last Admin: 12/19/17 12:24 Dose: 40 mg Escitalopram Oxalate (Lexapro) 10 mg PO DAILY [facility] Last Admin: 12/19/17 08:31 Dose: Not Given Famotidine (Pepcid) 20 mg PO BID [facility] Last Admin: 12/19/17 16:07 Dose: Not Given Ferrous Sulfate (Feosol) 325 mg PO DAILY [facility] Last Admin: 12/19/17 08:30 Dose: Not Given Glucagon (Glucagen Diagnostic Kit) 0 mg IM STAT PRN; Protocol PRN Reason: Hypoglycemia Protocol Home Med (Riociguat [Adempas]) 2 mg PO TID [facility] Last Admin: 12/19/17 16:07 Dose: Not Given Hydrocortisone (Cortef) 10 mg PO HS [facility] Last Admin: 12/19/17 02:35 Dose: 10 mg Dextrose/Sodium Chloride (Dextrose 5%/0.9% Ns 1000 Ml) 1,000 mls @ 80 mls/hr IV .[id number] [facility] Last Admin: 12/19/17 14:57 Dose: Not Given Insulin Detemir (Levemir) 10 units SC [facility] Insulin Human Lispro (Humalog) 0 units SC [facility]; Protocol Last Admin: 12/19/17 11:49 Dose: Not Given Levothyroxine Sodium (Synthroid) 50 mcg PO DAILY@0630 [facility] Last Admin: 12/19/17 05:43 Dose: 50 mcg Ondansetron HCl (Zofran Inj) 4 mg IVP Q6 PRN PRN Reason: Nausea/Vomiting Pantoprazole Sodium (Protonix Inj) 40 mg IVP DAILY [facility] Last Admin: 12/19/17 09:09 Dose: 40 mg Fluticasone/Salmeterol (Advair Diskus 250/50) 1 puff IH Q12 [facility] Last Admin: 12/19/17 09:06 Dose: 1 puff Torsemide (Demadex) 20 mg PO DAILY [facility] Last Admin: 12/19/17 08:30 Dose: Not Given Physical Exam - GI/Abdominal Exam Additional comments: soft, mildly tender in the epigastrium, ND, BS hypoactive, no 54rebound, no guarding, well healed incisions from prior surgeries Results - Vital Signs Recent Vital Signs: Last Vital Signs Temp 98.2 F 12/19/17 16:41 Pulse 101 H 12/19/17 16:41 Resp 20 12/19/17 16:41 BP 124/75 12/19/17 16:41 Pulse Ox 100 12/19/17 16:41 - Labs Result Diagrams: 12/19/17 06:00 12/19/17 06:00 Labs: Laboratory Results - last 24 hr 12/18/17 12/18/17 12/18/17 16:30 16:30 18:21 WBC RBC Hgb Hct MCV MCH MCHC RDW Plt Count MPV Neut % (Auto) Lymph % (Auto) Toole % (Auto) Eos % (Auto) Baso % (Auto) Neut # (Auto) Lymph # (Auto) Toole # (Auto) Eos # (Auto) Baso # (Auto) Neutrophils % (Manual) 84 H Lymphocytes % (Manual) 7 L Monocytes % (Manual) 5 Eosinophils % (Manual) 2 Metamyelocytes % 2 H Platelet Estimate Normal Plt Clumps, EDTA Present Poikilocytosis (manual Slight Anisocytosis (manual) Slight Ovalocytes Slight pO2 24 L VBG pH 7.34 VBG pCO2 57 VBG HCO3 26.3 VBG Total CO2 32.5 H VBG O2 Sat (Calc) 40.5 VBG Base Excess 3.7 H VBG Potassium 3.9 Glucose 173 H Lactate 1.1 FiO2 21.0 Sodium 135 132.0 Potassium 4.2 Chloride 97 L 97.0 L Carbon Dioxide 31 H Anion Gap 11 BUN 18 H Creatinine 0.8 Est GFR ( Amer) > 60 Est GFR (Non-Af Amer) > 60 POC Glucose (mg/dL) Random Glucose 154 H Calcium 9.0 Total Bilirubin 0.6 AST 43 H D ALT 48 Alkaline Phosphatase 143 H D Troponin I < 0.0120 NT-Pro-B Natriuret Pep 415 Total Protein 7.4 Albumin 4.0 Globulin 3.5 Albumin/Globulin Ratio 1.1 Lipase 14 L Procalcitonin Venous Blood Potassium 3.9 12/18/17 12/19/17 12/19/17 21:23 01:30 05:51 WBC RBC Hgb Hct MCV MCH MCHC RDW Plt Count MPV Neut % (Auto) Lymph % (Auto) Toole % (Auto) Eos % (Auto) Baso % (Auto) Neut # (Auto) Lymph # (Auto) Toole # (Auto) Eos # (Auto) Baso # (Auto) Neutrophils % (Manual) Lymphocytes % (Manual) Monocytes % (Manual) Eosinophils % (Manual) Metamyelocytes % Platelet Estimate Plt Clumps, EDTA Poikilocytosis (manual Anisocytosis (manual) Ovalocytes pO2 VBG pH VBG pCO2 VBG HCO3 VBG Total CO2 VBG O2 Sat (Calc) VBG Base Excess VBG Potassium Glucose Lactate FiO2 Sodium Potassium Chloride Carbon Dioxide Anion Gap BUN Creatinine Est GFR ( Amer) Est GFR (Non-Af Amer) POC Glucose (mg/dL) 167 H 146 H 157 H Random Glucose Calcium Total Bilirubin AST ALT Alkaline Phosphatase Troponin I NT-Pro-B Natriuret Pep Total Protein Albumin Globulin Albumin/Globulin Ratio Lipase Procalcitonin Venous Blood Potassium 12/19/17 12/19/17 12/19/17 06:00 06:00 06:00 WBC 8.4 RBC 3.63 L Hgb 10.8 L Hct 32.2 L MCV 88.7 MCH 29.9 MCHC 33.7 RDW 18.1 H Plt Count 324 MPV 8.5 Neut % (Auto) 81.4 H Lymph % (Auto) 4.7 L Toole % (Auto) 12.9 H Eos % (Auto) 0.9 Baso % (Auto) 0.1 Neut # (Auto) 6.9 Lymph # (Auto) 0.4 L Toole # (Auto) 1.1 H Eos # (Auto) 0.1 Baso # (Auto) 0.0 Neutrophils % (Manual) Lymphocytes % (Manual) Monocytes % (Manual) Eosinophils % (Manual) Metamyelocytes % Platelet Estimate Plt Clumps, EDTA Poikilocytosis (manual Anisocytosis (manual) Ovalocytes pO2 VBG pH VBG pCO2 VBG HCO3 VBG Total CO2 VBG O2 Sat (Calc) VBG Base Excess VBG Potassium Glucose Lactate FiO2 Sodium 136 Potassium 4.3 Chloride 99 Carbon Dioxide 31 H Anion Gap 10 BUN 12 Creatinine 0.8 Est GFR ( Amer) > 60 Est GFR (Non-Af Amer) > 60 POC Glucose (mg/dL) Random Glucose 164 H Calcium 7.9 L Total Bilirubin AST ALT Alkaline Phosphatase Troponin I NT-Pro-B Natriuret Pep Total Protein Albumin Globulin Albumin/Globulin Ratio Lipase Procalcitonin 0.06 L Venous Blood Potassium 12/19/17 11:34 WBC RBC Hgb Hct MCV MCH MCHC RDW Plt Count MPV Neut % (Auto) Lymph % (Auto) Toole % (Auto) Eos % (Auto) Baso % (Auto) Neut # (Auto) Lymph # (Auto) Toole # (Auto) Eos # (Auto) Baso # (Auto) Neutrophils % (Manual) Lymphocytes % (Manual) Monocytes % (Manual) Eosinophils % (Manual) Metamyelocytes % Platelet Estimate Plt Clumps, EDTA Poikilocytosis (manual Anisocytosis (manual) Ovalocytes pO2 VBG pH VBG pCO2 VBG HCO3 VBG Total CO2 VBG O2 Sat (Calc) VBG Base Excess VBG Potassium Glucose Lactate FiO2 Sodium Potassium Chloride Carbon Dioxide Anion Gap BUN Creatinine Est GFR ( Amer) Est GFR (Non-Af Amer) POC Glucose (mg/dL) 108 Random Glucose Calcium Total Bilirubin AST ALT Alkaline Phosphatase Troponin I NT-Pro-B Natriuret Pep Total Protein Albumin Globulin Albumin/Globulin Ratio Lipase Procalcitonin Venous Blood Potassium
[2017-12-19] MEDS ORDERED: Albuterol-Ipratrop 3 mg / 0.5 (3 ml) UD INH PRN (01:23)
[2017-12-19] MEDS: Fluticasone-Salmeterol 250-50mcg Diskus IH SCH ×3 (02:08→22:41)
[2017-12-19] MEDS: Dextrose 5%/0.9% NS 1,000 ML IV SCH ×2 (02:09→14:57)
[2017-12-19] MEDS: Insulin Lispro (humaLOG) 100 Units/ml Inj SC SCH ×6 (04:00→22:41)
[2017-12-19] MEDS: Piperacillin/Tazobact 3.375 GM in Sodium Chloride 0.9% 100 ML IVPB SCH ×3 (04:42→15:54)
[2017-12-19] MEDS: Levothyroxine 50 MCG TAB PO SCH (05:43)
[2017-12-19 07:12] LABS: BASO % 0.1 % (0.0-2.0); EOS # 0.1 K/uL (0.0-0.7); EOS % 0.9 % (0.0-4.0); HEMOGLOBIN 10.8 g/dL (12.0-16.0); LYMPH # 0.4 K/uL (1.0-4.3); LYMPH % 4.7 % (20.0-40.0); MEAN CELL VOLUME 88.7 fl (81.0-99.0); MEAN CORPUSCULAR HEMOGLOBIN 29.9 pg (27.0-31.0); MEAN CORPUSCULAR HGB CONC 33.7 g/dL (33.0-37.0); MEAN PLATELET VOLUME 8.5 fl (7.2-11.7); MONO # 1.1 K/uL (0.0-0.8); MONO % 12.9 % (0.0-10.0); NEUT # 6.9 K/uL (1.8-7.0); NEUT % 81.4 % (50.0-75.0); NRBC % 0.1 % (0.0-0.0); RBC 3.63 Mil/uL (3.80-5.20); RED CELL DISTRIBUTION WIDTH 18.1 % (11.5-14.5); WHITE BLOOD COUNT 8.4 K/uL (4.8-10.8)
[2017-12-19 07:36] LABS: BLOOD UREA NITROGEN 12 mg/dl (7-17); CALCIUM 7.9 mg/dL (8.4-10.2); GFR NON-AFRICAN AMERICAN > 60
--- NOTE | 2017-12-19 07:51 | CP.PCM.PN ---
<Jareth Rodriguez - Last Filed: 12/19/17 07:53> Subjective - Date & Time of Evaluation Date of Evaluation: 12/19/17 Time of Evaluation: 07:49 - Subjective Subjective: Surgery: Dr. Paz Pt seen and examined. Continues to have abd pain, pain is same as yesterday. Nausea and vomiting have resolved. Pt is no longer passing flatus/BM. Objective - Vital Signs/Intake and Output Vital Signs (last 24 hours): Temp Pulse Resp BP Pulse Ox 97.8 F 98 H 16 129/69 100 12/19/17 05:15 12/19/17 05:15 12/19/17 05:15 12/19/17 05:15 12/19/17 05:15 - Medications Medications: Current Medications Albuterol/Ipratropium (Duoneb 3 Mg/0.5 Mg (3 Ml) Ud) 3 ml INH RQ6 PRN PRN Reason: Shortness of Breath Aripiprazole (Abilify) 2 mg PO HS [facility] Last Admin: 12/19/17 02:08 Dose: 2 mg Aspirin (Ecotrin) 81 mg PO DAILY [facility] Atorvastatin Calcium (Lipitor) 20 mg PO DAILY [facility] Benztropine Mesylate (Cogentin) 1 mg PO BID [facility] Last Admin: 12/19/17 02:35 Dose: 1 mg Clonazepam (Klonopin) 0.5 mg PO DAILY PRN PRN Reason: Anxiety Dextrose (Dextrose 50% Inj) 0 ml IV STAT PRN; Protocol PRN Reason: Hypoglycemia Protocol Dextrose (Glutose 15) 0 gm PO ONCE PRN; Protocol PRN Reason: Hypoglycemia Protocol Duloxetine HCl (Cymbalta) 20 mg PO DAILY [facility] Enalapril Maleate (Vasotec) 2.5 mg PO DAILY [facility] Escitalopram Oxalate (Lexapro) 10 mg PO DAILY [facility] Famotidine (Pepcid) 20 mg PO BID [facility] Ferrous Sulfate (Feosol) 325 mg PO DAILY [facility] Glucagon (Glucagen Diagnostic Kit) 0 mg IM STAT PRN; Protocol PRN Reason: Hypoglycemia Protocol Home Med (Riociguat [Adempas]) 2 mg PO TID [facility] Hydrocortisone (Cortef) 10 mg PO HS [facility] Last Admin: 12/19/17 02:35 Dose: 10 mg Piperacillin Sod/Tazobactam (Sod 3.375 gm/ Sodium Chloride) 100 mls @ 100 mls/hr IVPB Q6 [facility]; Protocol Last Admin: 12/19/17 04:42 Dose: 100 mls/hr Dextrose/Sodium Chloride (Dextrose 5%/0.9% Ns 1000 Ml) 1,000 mls @ 80 mls/hr IV .[id number] [facility] Last Admin: 12/19/17 02:09 Dose: 80 mls/hr Levofloxacin/Dextrose (Levaquin 750mg) 750 mg in 150 mls @ 100 mls/hr IVPB DAILY [facility]; Protocol Influenza Virus Vaccine (Afluria Quad (Pf) [id number]) 60 mcg IM .ONCE ONE Stop: 12/19/17 09:01 Insulin Detemir (Levemir) 20 units SC HS [facility] Last Admin: 12/19/17 01:00 Dose: 20 u Insulin Human Lispro (Humalog) 5 units SC Q6 [facility] Last Admin: 12/19/17 04:00 Dose: 5 u Insulin Human Lispro (Humalog) 0 units SC ACHS [facility]; Protocol Levothyroxine Sodium (Synthroid) 50 mcg PO DAILY@0630 [facility] Last Admin: 12/19/17 05:43 Dose: 50 mcg Ondansetron HCl (Zofran Inj) 4 mg IVP Q6 PRN PRN Reason: Nausea/Vomiting Pantoprazole Sodium (Protonix Inj) 40 mg IVP DAILY [facility] Fluticasone/Salmeterol (Advair Diskus 250/50) 1 puff IH Q12 [facility] Last Admin: 12/19/17 02:08 Dose: 1 puff Torsemide (Demadex) 20 mg PO DAILY [facility] - Labs Labs: 12/19/17 06:00 12/19/17 06:00 - Constitutional Appears: Non-toxic, No Acute Distress - Head Exam Head Exam: ATRAUMATIC, NORMOCEPHALIC - Eye Exam Eye Exam: EOMI - ENT Exam ENT Exam: Mucous Membranes Moist - Neck Exam Neck Exam: Full ROM - Respiratory Exam Respiratory Exam: Accessory Muscle Use. absent: Respiratory Distress Additional comments: on CPAP - GI/Abdominal Exam GI & Abdominal Exam: Soft, Tenderness (mild epigastric). absent: Distended, Firm, Guarding, Rigid, Rebound - Neurological Exam Neurological Exam: Alert, Awake, Oriented x3 - Psychiatric Exam Psychiatric exam: Normal Affect, Normal Mood Assessment and Plan - Assessment and Plan (Free Text) Assessment: 71F w. SBO -NPO -IVF -serial abd exams -will F/U on KUB -If symptoms worsen, will need NGT -will d/w attending Jennifer PGY4 <Joe Paz - Last Filed: 12/19/17 16:55> Subjective - Date & Time of Evaluation Time of Evaluation: 16:30 - Subjective Subjective: Patient was seen and examined at the bedside. Agree with resident's note above. Patient is passing flatus but no bowel movements today. Objective - Vital Signs/Intake and Output Vital Signs (last 24 hours): Temp Pulse Resp BP Pulse Ox 98.2 F 101 H 20 124/75 100 12/19/17 16:41 12/19/17 16:41 12/19/17 16:41 12/19/17 16:41 12/19/17 16:41 - Medications Medications: Current Medications Albuterol/Ipratropium (Duoneb 3 Mg/0.5 Mg (3 Ml) Ud) 3 ml INH RQ6 PRN PRN Reason: Shortness of Breath Aripiprazole (Abilify) 2 mg PO HS [facility] Last Admin: 12/19/17 02:08 Dose: 2 mg Aspirin (Ecotrin) 81 mg PO DAILY [facility] Atorvastatin Calcium (Lipitor) 20 mg PO DAILY [facility] Last Admin: 12/19/17 08:31 Dose: Not Given Benztropine Mesylate (Cogentin) 1 mg PO BID [facility] Last Admin: 12/19/17 16:07 Dose: Not Given Clonazepam (Klonopin) 0.5 mg PO DAILY PRN PRN Reason: Anxiety Dextrose (Dextrose 50% Inj) 0 ml IV STAT PRN; Protocol PRN Reason: Hypoglycemia Protocol Dextrose (Glutose 15) 0 gm PO ONCE PRN; Protocol PRN Reason: Hypoglycemia Protocol Duloxetine HCl (Cymbalta) 20 mg PO DAILY [facility] Last Admin: 12/19/17 08:30 Dose: Not Given Enalapril Maleate (Vasotec) 2.5 mg PO DAILY [facility] Last Admin: 12/19/17 08:32 Dose: Not Given Enoxaparin Sodium (Lovenox) 40 mg SC DAILY [facility]; Protocol Last Admin: 12/19/17 12:24 Dose: 40 mg Escitalopram Oxalate (Lexapro) 10 mg PO DAILY [facility] Last Admin: 12/19/17 08:31 Dose: Not Given Famotidine (Pepcid) 20 mg PO BID [facility] Last Admin: 12/19/17 16:07 Dose: Not Given Ferrous Sulfate (Feosol) 325 mg PO DAILY [facility] Last Admin: 12/19/17 08:30 Dose: Not Given Glucagon (Glucagen Diagnostic Kit) 0 mg IM STAT PRN; Protocol PRN Reason: Hypoglycemia Protocol Home Med (Riociguat [Adempas]) 2 mg PO TID [facility] Last Admin: 12/19/17 16:07 Dose: Not Given Hydrocortisone (Cortef) 10 mg PO HS [facility] Last Admin: 12/19/17 02:35 Dose: 10 mg Dextrose/Sodium Chloride (Dextrose 5%/0.9% Ns 1000 Ml) 1,000 mls @ 80 mls/hr IV .[id number] [facility] Last Admin: 12/19/17 14:57 Dose: Not Given Insulin Detemir (Levemir) 10 units SC [facility] Insulin Human Lispro (Humalog) 0 units SC [facility]; Protocol Last Admin: 12/19/17 11:49 Dose: Not Given Levothyroxine Sodium (Synthroid) 50 mcg PO DAILY@0630 [facility] Last Admin: 12/19/17 05:43 Dose: 50 mcg Ondansetron HCl (Zofran Inj) 4 mg IVP Q6 PRN PRN Reason: Nausea/Vomiting Pantoprazole Sodium (Protonix Inj) 40 mg IVP DAILY [facility] Last Admin: 12/19/17 09:09 Dose: 40 mg Fluticasone/Salmeterol (Advair Diskus 250/50) 1 puff IH Q12 [facility] Last Admin: 12/19/17 09:06 Dose: 1 puff Torsemide (Demadex) 20 mg PO DAILY [facility] Last Admin: 12/19/17 08:30 Dose: Not Given - Labs Labs: 12/19/17 06:00 12/19/17 06:00 - GI/Abdominal Exam Additional comments: soft, mildly tender in the epigastrium, ND, BS hypoactive, no rebound, no guarding, well healed scars from prior surgeries
[2017-12-19] MEDS: RIOCIGUAT 2 MG PO SCH ×3 (08:37→16:07)
[2017-12-19] MEDS ORDERED: Pantoprazole 40 mg EC Tab PO SCH (09:00)
[2017-12-19] MEDS ORDERED: Insulin Lispro (humaLOG) 100 Units/ml Inj SC SCH (09:00)
[2017-12-19] MEDS ORDERED: Enoxaparin 40 mg Syringe SC SCH (09:00)
[2017-12-19] MEDS ORDERED: Influenza Vaccine (5 YR UP)/PF 60 MCG/0.5 ML SYR IM ONE (09:00)
--- NOTE | 2017-12-19 10:39 | CT ---
Date of service: 12/18/2017 PROCEDURE: CT Chest, Abdomen and Pelvis with intravenous contrast HISTORY: LUQ and epigastric pain COMPARISON: Comparison is made with 12/02/[address] angio of the chest dated 01/11/2014 TECHNIQUE: IV dose administered: 99 mL of Visipaque 320 intravenously. Axial and reformatted coronal and sagittal CT images of the chest abdomen and pelvis were obtained after IV contrast administration. Radiation dose: Total exam DLP = 961.0 mGy-cm. This CT exam was performed using one or more of the following dose reduction techniques: Automated exposure control, adjustment of the mA and/or kV according to patient size, and/or use of iterative reconstruction technique. FINDINGS: CT CHEST WITH CONTRAST: LUNGS: No evidence of infiltrate or mass lesion in the lungs. Mild bronchiectasis at the right lower lobe more than left is noted. Mild central bronchiectasis is also noted. MEDIASTINUM: Unremarkable. Normal caliber aorta. The main pulmonary artery is mildly enlarged.. No aortic dissection. Normal size heart. There is diffuse dilatation of the mid and distal esophagus associated with small hiatus hernia. LYMPH NODES: Unremarkable. PLEURA: Unremarkable. No pneumothorax. No pleural fluid. BONES: Again noted is mild compression deformity of T3 and T5. There is interval worsening of compression deformity of T12 since the previous CT dated 03/29/2015 OTHER FINDINGS: None. CT ABDOMEN AND PELVIS: LIVER: No evidence of suspicious mass in the liver. The portal vein is patent. GALLBLADDER AND BILE DUCTS: There is no evidence of acute cholecystitis or radiodense gallstones. PANCREAS: Unremarkable. No gross lesion or ductal dilatation. SPLEEN: Unremarkable. ADRENALS: Unremarkable. No mass. KIDNEYS AND URETERS: Unremarkable. No hydronephrosis. No solid mass. VASCULATURE: IVC filter is again seen in place. No aortic aneurysm. BOWEL: There are mildly to moderately dilated small bowel loops demonstrate mild enhancing wall thickening suspicious for low grade bowel obstruction versus enteritis. The descending and sigmoid colon are partially collapse. The stomach is mildly distended. APPENDIX: There is no evidence of appendicitis. PERITONEUM: There is a trace amount of perihepatic fluid again noted. There is no evidence of free air. LYMPH NODES: Unremarkable. No enlarged lymph nodes. BLADDER: Mild urinary bladder wall thickening. REPRODUCTIVE: Unremarkable. BONES: There is interval appearance of the lytic lesion at the left acetabulum extending slightly to the left anterior pubic ramus and associated with focal bony destruction best seen on image 163 series 6 measures 2.4 x 2.8 centimeter . OTHER FINDINGS: None. IMPRESSION: Bibasilar atelectasis. Mild bronchiectasis. No evidence of pneumonia or mass lesion in the lungs. Mildly enlarged main pulmonary artery. No evidence of acute cholecystitis or pancreatitis. Mildly to moderately dilated small bowel loops and partially collapsed distal large bowel. The possibility of low grade small bowel obstruction versus enteritis should be considered. Interval worsening of T2 compression deformity since the previous exam. Interval appearance of new lytic bony lesion at left acetabulum extending to the base of the left anterior pubic ramus and associated with small focal cortical destruction. Further assessment by bone scan is recommended to evaluate for other bony lesions. Preliminary report with concordance findings was submitted by [facility] at 7:48 p.m. on 12/18/2017. The lytic bony lesion in the left acetabulum was not mentioned in the preliminary report.
--- NOTE | 2017-12-19 11:14 | CP.PCM.PN ---
Addendum entered and electronically signed by Birdie Granados MD 12/19/17 16:20: Patient seen and examined bedside . All chart and clinical data reviewed . Case discussed with resident . Agree with assessment and plan. 71 y/o female with PMH multiple myeloma, COPD, pulmonary hypertension , DM , hypothyroidism, chronic anemia, on home O2 ,obese, sleep apnea presented to ER w ith nausea, vomiting , abdominal pain and diarrhea. CT abdomen showed partial SBO Patient admitted in tele , kept NPO , started on IVF and surgery consulted Repeat KUB showed dilated bowel loops and stomach but patient is not nauseated and not vomiting , able to pass flatus. NGT not placed for now. Continue current management Keep NPO for now On D5% NS @ 80 ml/hr Monitor accuchecks Toradol for pain CT chest official report showing no pneumonia Will d/c Levaquine and Zosyn Original Note: Subjective - Date & Time of Evaluation Date of Evaluation: 12/19/17 Time of Evaluation: 08:46 - Subjective Subjective: Patient was seen and examined this AM receiving CPAP. Patient endorses nausea, and abdominal pain, but denies any vomiting this AM. Nurse reports patient passed gas when tylenol was given ID, but has not had BM. Objective - Vital Signs/Intake and Output Vital Signs (last 24 hours): Temp Pulse Resp BP Pulse Ox 97.9 F 97 H 18 114/69 100 12/19/17 09:31 12/19/17 09:31 12/19/17 09:31 12/19/17 09:31 12/19/17 09:31 - Medications Medications: Current Medications Albuterol/Ipratropium (Duoneb 3 Mg/0.5 Mg (3 Ml) Ud) 3 ml INH RQ6 PRN PRN Reason: Shortness of Breath Aripiprazole (Abilify) 2 mg PO HS [facility] Last Admin: 12/19/17 02:08 Dose: 2 mg Aspirin (Ecotrin) 81 mg PO DAILY [facility] Atorvastatin Calcium (Lipitor) 20 mg PO DAILY [facility] Last Admin: 12/19/17 08:31 Dose: Not Given Benztropine Mesylate (Cogentin) 1 mg PO BID [facility] Last Admin: 12/19/17 08:29 Dose: Not Given Clonazepam (Klonopin) 0.5 mg PO DAILY PRN PRN Reason: Anxiety Dextrose (Dextrose 50% Inj) 0 ml IV STAT PRN; Protocol PRN Reason: Hypoglycemia Protocol Dextrose (Glutose 15) 0 gm PO ONCE PRN; Protocol PRN Reason: Hypoglycemia Protocol Duloxetine HCl (Cymbalta) 20 mg PO DAILY [facility] Last Admin: 12/19/17 08:30 Dose: Not Given Enalapril Maleate (Vasotec) 2.5 mg PO DAILY [facility] Last Admin: 12/19/17 08:32 Dose: Not Given Escitalopram Oxalate (Lexapro) 10 mg PO DAILY [facility] Last Admin: 12/19/17 08:31 Dose: Not Given Famotidine (Pepcid) 20 mg PO BID [facility] Last Admin: 12/19/17 08:31 Dose: Not Given Ferrous Sulfate (Feosol) 325 mg PO DAILY [facility] Last Admin: 12/19/17 08:30 Dose: Not Given Glucagon (Glucagen Diagnostic Kit) 0 mg IM STAT PRN; Protocol PRN Reason: Hypoglycemia Protocol Home Med (Riociguat [Adempas]) 2 mg PO TID [facility] Last Admin: 12/19/17 08:37 Dose: Not Given Hydrocortisone (Cortef) 10 mg PO HS [facility] Last Admin: 12/19/17 02:35 Dose: 10 mg Piperacillin Sod/Tazobactam (Sod 3.375 gm/ Sodium Chloride) 100 mls @ 100 mls/hr IVPB Q6 [facility]; Protocol Last Admin: 12/19/17 09:05 Dose: 100 mls/hr Dextrose/Sodium Chloride (Dextrose 5%/0.9% Ns 1000 Ml) 1,000 mls @ 80 mls/hr IV .[id number] [facility] Last Admin: 12/19/17 02:09 Dose: 80 mls/hr Levofloxacin/Dextrose (Levaquin 750mg) 750 mg in 150 mls @ 100 mls/hr IVPB DAILY [facility]; Protocol Insulin Detemir (Levemir) 10 units SC HS [facility] Insulin Human Lispro (Humalog) 5 units SC Q6 [facility] Last Admin: 12/19/17 04:00 Dose: 5 u Insulin Human Lispro (Humalog) 0 units SC ACHS [facility]; Protocol Levothyroxine Sodium (Synthroid) 50 mcg PO DAILY@0630 [facility] Last Admin: 12/19/17 05:43 Dose: 50 mcg Ondansetron HCl (Zofran Inj) 4 mg IVP Q6 PRN PRN Reason: Nausea/Vomiting Pantoprazole Sodium (Protonix Inj) 40 mg IVP DAILY [facility] Last Admin: 12/19/17 09:09 Dose: 40 mg Fluticasone/Salmeterol (Advair Diskus 250/50) 1 puff IH Q12 [facility] Last Admin: 12/19/17 09:06 Dose: 1 puff Torsemide (Demadex) 20 mg PO DAILY [facility] Last Admin: 12/19/17 08:30 Dose: Not Given - Labs Labs: 12/19/17 06:00 12/19/17 06:00 - Constitutional Appears: No Acute Distress - Head Exam Head Exam: ATRAUMATIC - Neck Exam Neck Exam: Full ROM - Respiratory Exam Additional comments: rhonchi on right lower lobe, no wheeze - Cardiovascular Exam Cardiovascular Exam: REGULAR RHYTHM, +S1, +S2 - GI/Abdominal Exam GI & Abdominal Exam: Soft, Tenderness. absent: Guarding, Rigid Additional comments: large pannus - Extremities Exam Extremities Exam: absent: Calf Tenderness - Neurological Exam Neurological Exam: Alert, Awake, Oriented x3 - Psychiatric Exam Psychiatric exam: Normal Affect, Normal Mood - Skin Skin Exam: Dry, Intact Assessment and Plan - Assessment and Plan (Free Text) Assessment: 71 y/o F with medical hx of multiple myeloma, pulmonary hypertension, and COPD on home oxygen who presented to ED with nausea, vomitting, and diarrhea was admitted for partial small bowel obstruction. 1. Partial SBO with nausea, vomitting, & Abd pain (Acute, symptomatic) -Surgical recommendations have been appreciated. -Continue NPO with IVF for bowel rest. -Given tylenol ID for pain. -Continue levofloxacin 750mg IVPB QD & Zosyn 3.375gm IVPB Q6. -FU official report of KUB. 2. Suspected Pneumonia (Acute) -Unlikely given that patient has been afebrile with no leukocytosis -Continue levofloxacin 750mg IVPB QD & Zosyn 3.375gm IVPB Q6. -FU blood cultures, legionella urine antigen, and procalcitonin. 3. COPD (Chronic, stable) -Continue advair diskus 250/50 BID 4. DMII (Chronic, stable) -Levemir decreased from 20 units SC HS to 10 given that the patient is NPO. -Continue lispro 5 units SC Q6. -Continue accucheck ACHS. -Continue hypogylcemia protocol. 5. Hypothyroidism (Chronic) -Hold Levothyroxine 50 mcg for bowel rest. 6. Sleep Apnea (Chronic) -Continue CPAP HS (Home setting : ) 7. Pulmonary Hypertension (Chronic) - Riociguat 2mg PO TID on hold for bowel rest. 8. Depression (Chronic, controlled) -Outpatient F/u by Dr Chase Miller -Clonazepam 0.5 PO PRN anxiety (Hold for bowel rest) -EScitalopram 10 PO QD (Hold for bowel rest) - Duloxetine 20 mg PO (Hold for bowel rest) -Aripiprazole 2 PO QD (Hold for bowel rest) 9. DVT Prophylaxis -started Lovenox 40 mg SC today; no surgical interventions at this time 10. Code Status unknown Full code
[2017-12-19] MEDS: Enoxaparin 40 mg Syringe SC SCH (12:24)
--- NOTE | 2017-12-19 16:13 | RAD ---
Date of service: 12/18/2017 PROCEDURE: Radiographs of the pelvis. HISTORY: pain COMPARISON: Comparison is made to the previous study dated 02/16/2017 FINDINGS: BONES: Pelvic Bones: Diffuse osteopenic changes are again noted. Hips: Moderate to severe osteoarthritic changes are again noted more prominent on the right. JOINTS: Sacroiliac Joints: Unremarkable. Pubic Symphysis: Unremarkable. OTHER FINDINGS: Diffuse vascular calcification. IMPRESSION: No evidence of acute fracture or dislocation. Mildly dilated small bowel loops at the lower abdomen.
--- NOTE | 2017-12-19 17:06 | CARD ---
APPROVED REPORT Date of service: 12/18/2017 EKG Measurement Heart [id number] <Conclusion> Normal sinus rhythm Nonspecific T wave abnormality Prolonged QT Abnormal ECG
--- NOTE | 2017-12-19 19:15 | RAD ---
Date of service: 12/19/2017 HISTORY: small bowel obstruction COMPARISON: Comparison is made to the previous CT of the abdomen and pelvis 12/18/2017 FINDINGS: BOWEL: There are dilated small bowel loops in the mid and lower abdomen. BONES: Degenerative changes are noted. OTHER FINDINGS: There is contrast in the bladder from recent CT study. IMPRESSION: Persistent mildly dilated small bowel loops at the mid and lower abdomen.
--- NOTE | 2017-12-19 22:16 | CON ---
DATE: 12/19/2017 HISTORY OF PRESENT ILLNESS: Ms. Perkins is a 71-year-old female who is well known to me from prior admissions. She was referred for pulmonary evaluation to rule out pneumonia. She was admitted via the emergency room because of her abdominal pains for about two days prior to presentation associated with nausea and vomiting. She was noted to have what appeared to be partial small bowel obstruction, and chest x-ray now was questionable for atelectasis in both lobe lung bases, and she was referred for pulmonary evaluation. PAST MEDICAL HISTORY: She has a past medical history of hypertension, hip fracture, diabetes mellitus, hyperlipidemia, multiple myeloma with metastasis, hypothyroidism, and chronic obstructive pulmonary disease. FAMILY HISTORY: Nonrevealing. SOCIAL HISTORY: She denies smoking or alcohol use. REVIEW OF SYSTEMS: Remarkable for occasional bone pains and abdominal pains. PHYSICAL EXAMINATION: GENERAL: The patient is alert and oriented. Has vomiting and it indicates that she still has some abdominal discomfort. VITAL SIGNS: Remarkable for blood pressure of 114/69 with a pulse of 97, respiratory rate 18. She is febrile. O2 sat 100% on room air. SKIN: Shows fair turgor. HEENT: Pupils are equal and reactive to light and accommodation. JVP flat. Mouth shows fair hygiene. LUNGS: Fair aeration bilaterally with dullness at the bases. HEART: Regular. No murmurs or gallops. ABDOMEN: Distended, tympanitic with diffuse tenderness. No organomegaly appreciated. EXTREMITIES: Show no edema or cyanosis. CENTRAL NERVOUS SYSTEM: The patient is alert and oriented. No gross deficits appreciated. LABORATORY DATA: Remarkable for WBC of 8.4, hemoglobin 10.8, platelet count of 324,000. Venous blood gas, pH of 7.34, pO2 of 24, pCO2 of 57. Sodium 136, potassium 4.3, BUN 12, creatinine 0.8, serum glucose 164. Chest x-ray with poor quality film but remarkable for patchy ground-glass opacities in both lungs which is new since previous admission. CT scan of the chest was reviewed, shows no evidence of infiltrates or masses in both lungs. Mild bronchiectasis, right lower lobe more than left is noted. Mild central bronchiectasis is also noted. IMPRESSION AND PLAN: A 71-year-old female with multiple medical problems who presented with abdominal pains and nausea with vomiting what appears to be small bowel obstruction, referred for pulmonary evaluation because of possible pneumonia. Clinical findings do not suggest pneumonic infiltrates but what appears to be bronchiectasis, which appears old. The patient also has obstructive sleep apnea which she uses bilevel positive airway pressure machine at home and history of chronic obstructive pulmonary disease. The plan will be to continue the bilevel positive airway pressure therapy as well as bronchodilators as directed. I agree with surgical intervention for further evaluation of intestinal obstruction. We will continue to follow with you. Taj No MD
[2017-12-19] MEDS: Insulin Detemir 100 Units/ml Inj SC SCH (22:42)
[2017-12-20 05:13] LABS: MEAN CELL VOLUME 90.1 fl (81.0-99.0); MEAN CORPUSCULAR HEMOGLOBIN 29.2 pg (27.0-31.0); MEAN CORPUSCULAR HGB CONC 32.4 g/dL (33.0-37.0); RBC 3.09 Mil/uL (3.80-5.20); RED CELL DISTRIBUTION WIDTH 17.6 % (11.5-14.5); WHITE BLOOD COUNT 5.1 K/uL (4.8-10.8)
[2017-12-20 05:25] LABS: ALT/SGPT 33 U/L (9-52); AST/SGOT 33 U/L (14-36); BLOOD UREA NITROGEN 9 mg/dl (7-17); CALCIUM 6.6 mg/dL (8.4-10.2); GFR NON-AFRICAN AMERICAN > 60
[2017-12-20] MEDS: Levothyroxine 50 MCG TAB PO SCH (06:05)
[2017-12-20] MEDS ORDERED: Magnesium Sulfate 2 gm/50 ml 2 GM/50 ML BAG IVPB ONE (06:43)
[2017-12-20] MEDS: Fluticasone-Salmeterol 250-50mcg Diskus IH SCH ×2 (08:09→21:20)
[2017-12-20] MEDS: Enoxaparin 40 mg Syringe SC SCH (08:12)
[2017-12-20] MEDS: Insulin Lispro (humaLOG) 100 Units/ml Inj SC SCH ×4 (08:12→22:47)
[2017-12-20] MEDS: RIOCIGUAT 2 MG PO SCH ×4 (08:13→16:37)
[2017-12-20] MEDS: Potassium Chloride 20 mEq 100 ML IVPB SCH (09:24)
--- NOTE | 2017-12-20 09:28 | CP.PCM.PN ---
Subjective - Date & Time of Evaluation Date of Evaluation: 12/20/17 Time of Evaluation: 09:28 - Subjective Subjective: DENIES CHEST PAINS/SOB Objective - Vital Signs/Intake and Output Vital Signs (last 24 hours): Temp Pulse Resp BP Pulse Ox 97.9 F 87 18 117/64 99 12/20/17 08:18 12/20/17 08:18 12/20/17 08:18 12/20/17 08:18 12/20/17 08:18 - Medications Medications: Current Medications Acetaminophen (Tylenol 325mg Tab) 650 mg PO Q4 PRN PRN Reason: Pain, Mild (1-3) Albuterol/Ipratropium (Duoneb 3 Mg/0.5 Mg (3 Ml) Ud) 3 ml INH RQ6 PRN PRN Reason: Shortness of Breath Aripiprazole (Abilify) 2 mg PO HS [facility] Last Admin: 12/19/17 22:40 Dose: 2 mg Aspirin (Ecotrin) 81 mg PO DAILY [facility] Atorvastatin Calcium (Lipitor) 20 mg PO DAILY [facility] Last Admin: 12/20/17 08:12 Dose: 20 mg Benztropine Mesylate (Cogentin) 1 mg PO BID [facility] Last Admin: 12/20/17 08:10 Dose: 1 mg Clonazepam (Klonopin) 0.5 mg PO DAILY PRN PRN Reason: Anxiety Dextrose (Dextrose 50% Inj) 0 ml IV STAT PRN; Protocol PRN Reason: Hypoglycemia Protocol Dextrose (Glutose 15) 0 gm PO ONCE PRN; Protocol PRN Reason: Hypoglycemia Protocol Duloxetine HCl (Cymbalta) 20 mg PO DAILY [facility] Last Admin: 12/20/17 08:14 Dose: 20 mg Enalapril Maleate (Vasotec) 2.5 mg PO DAILY [facility] Last Admin: 12/20/17 08:18 Dose: 2.5 mg Enoxaparin Sodium (Lovenox) 40 mg SC DAILY [facility]; Protocol Last Admin: 12/20/17 08:12 Dose: 40 mg Escitalopram Oxalate (Lexapro) 10 mg PO DAILY [facility] Last Admin: 12/20/17 08:11 Dose: 10 mg Famotidine (Pepcid) 20 mg PO BID [facility] Last Admin: 12/20/17 08:10 Dose: 20 mg Ferrous Sulfate (Feosol) 325 mg PO DAILY [facility] Last Admin: 12/20/17 08:11 Dose: 325 mg Glucagon (Glucagen Diagnostic Kit) 0 mg IM STAT PRN; Protocol PRN Reason: Hypoglycemia Protocol Home Med (Riociguat [Adempas]) 2 mg PO TID [facility] Last Admin: 12/20/17 08:13 Dose: 2 mg Hydrocortisone (Cortef) 10 mg PO HS [facility] Last Admin: 12/19/17 22:40 Dose: 10 mg Dextrose/Sodium Chloride (Dextrose 5%/0.9% Ns 1000 Ml) 1,000 mls @ 80 mls/hr IV .[id number] [facility] Last Admin: 12/19/17 14:57 Dose: Not Given Potassium Chloride (Potassium Chloride 20 Meq/100 Ml) 100 mls @ 50 mls/hr IVPB Q2 [facility] Stop: 12/20/17 11:59 Last Admin: 12/20/17 09:24 Dose: 50 mls/hr Insulin Detemir (Levemir) 10 units SC [facility] Last Admin: 12/19/17 22:42 Dose: 10 units Insulin Human Lispro (Humalog) 0 units SC [facility]; Protocol Last Admin: 12/20/17 08:12 Dose: Not Given Ketorolac Tromethamine (Toradol) 15 mg IVP Q6 PRN PRN Reason: Pain, moderate (4-7) Levothyroxine Sodium (Synthroid) 50 mcg PO DAILY@0630 [facility] Last Admin: 12/20/17 06:05 Dose: 50 mcg Ondansetron HCl (Zofran Inj) 4 mg IVP Q6 PRN PRN Reason: Nausea/Vomiting Last Admin: 12/19/17 20:39 Dose: 4 mg Pantoprazole Sodium (Protonix Inj) 40 mg IVP DAILY [facility] Last Admin: 12/20/17 08:10 Dose: 40 mg Fluticasone/Salmeterol (Advair Diskus 250/50) 1 puff IH Q12 [facility] Last Admin: 12/20/17 08:09 Dose: 1 puff Torsemide (Demadex) 20 mg PO DAILY [facility] Last Admin: 12/20/17 08:10 Dose: 20 mg - Labs Labs: 12/20/17 04:50 12/20/17 04:50 - Constitutional Appears: No Acute Distress - Head Exam Head Exam: ATRAUMATIC, NORMAL INSPECTION, NORMOCEPHALIC - Eye Exam Eye Exam: EOMI, Normal appearance, PERRL Pupil Exam: NORMAL ACCOMODATION, PERRL - ENT Exam ENT Exam: Mucous Membranes Moist, Normal Exam - Neck Exam Neck Exam: Full ROM, Normal Inspection. absent: Lymphadenopathy - Respiratory Exam Respiratory Exam: Clear to Ausculation Bilateral, Prolonged Expiratory Phase, NORMAL BREATHING PATTERN - Cardiovascular Exam Cardiovascular Exam: REGULAR RHYTHM, +S1, +S2. absent: Murmur - GI/Abdominal Exam GI & Abdominal Exam: Soft, Normal Bowel Sounds. absent: Tenderness - Rectal Exam Rectal Exam: NORMAL INSPECTION - Extremities Exam Extremities Exam: Full ROM, Normal Capillary Refill, Normal Inspection. absent: Joint Swelling, Pedal Edema - Back Exam Back Exam: NORMAL INSPECTION - Neurological Exam Neurological Exam: Alert, Awake, CN II-XII Intact, Oriented x3 - Psychiatric Exam Psychiatric exam: Normal Affect, Normal Mood - Skin Skin Exam: Dry, Intact, Normal Color, Warm Assessment and Plan - Assessment and Plan (Free Text) Assessment: COPD SLEEP APNEA NO EVIDENCE OF PNEUMONIA Plan: CONTINUE CURRENT RX
--- NOTE | 2017-12-20 09:47 | CP.PCM.CON ---
History of Present Illness - History of Present Illness History of Present Illness: Psychiatry note CC: "I'm feeling better." HPI: 71 y/o female with PMHx of HTN, T2DM, CAD, Hypothyroidsm, Depression, Multiple myeloma, Pulmonary hypertension, and COPD on home oxygen, sleep apnea on CPAP machine, admitted w/ partial SBO w/ N/V and abdominal pain. Patient reports that she has a history of depression and anxiety, but reports that her mood is currently stable. NO AH/VH/SI/HI. No acute psychiatric complaints. Speedy reinaldoalice does not want to modify her psychiatric medications at this time. PMD: Dr David Neumann Psych: Dr Chase Miller; h/o outpatient treatment, psych meds recently modified 2 weeks ago. [employer] Supervisor: Dr Cisneros Oncology: Dr Vilchis PMH: Multiple M, T2DM, HTN, COPD on home Oxigen at 2L NC and also uses CPAP at home, Hypothyroidsm, GERD, hx of PE s/p IVC filter 2014. FMH: Father had Lung CA and HTN, Mother of a heart attack. Allergy: Codeine SURG: Ankle fracture repair, Cholecystectomy, Breast cyst surgery x2, tonsillectomy. SOC: Denies Tobacco/ETOH/Rec Drug use. Next of Kin: Daughter Megha [phone] Code status: Full code. Impression: 71 y/o female with PMHx of HTN, T2DM, CAD, Hypothyroidsm, Depression, Multiple myeloma, Pulmonary hypertension, and COPD on home oxygen, sleep apnea on CPAP machine, admitted w/ partial SBO w/ N/V and abdominal pain. Patient is currently psychiatrically stable. -Continue current psychiatric medications when patient able to tolerate PO intake again -No acute psychiatric inpatient admission indicated -Continued psychiatric follow-up care w/ Chase Miller upon discharge Past Patient History - Infectious Disease Hx of Infectious Diseases: None - Tetanus Immunizations Tetanus Immunization: Unknown - Past Medical History & Family History Past Medical History?: Yes - Past Social History Smoking Status: Never Smoked - CARDIAC Hx Congestive Heart Failure: Yes Hx Hypercholesterolemia: Yes Hx Hypertension: Yes - PULMONARY Hx Asthma: Yes Hx Chronic Obstructive Pulmonary Disease (COPD): Yes Hx Emphysema: Yes Hx Pneumonia: Yes Hx Pulmonary Embolism: Yes Hx Sleep Apnea: Yes - NEUROLOGICAL Hx Migraine: Yes Hx Parkinson's Disease: Yes - HEENT Hx Deafness: Yes - RENAL Hx Chronic Kidney Disease: No - ENDOCRINE/METABOLIC Hx Hypothyroidism: Yes - HEMATOLOGICAL/ONCOLOGICAL Hx Anemia: Yes Hx Human Immunodeficiency Virus (HIV): No - INTEGUMENTARY Hx Dermatological Problems: No - MUSCULOSKELETAL/RHEUMATOLOGICAL Hx Arthritis: Yes Hx Fractures: Yes Hx Rheumatoid Arthritis: Yes - GASTROINTESTINAL Hx Gastrointestinal Disorders: No - GENITOURINARY/GYNECOLOGICAL Hx Genitourinary Disorders: Yes Hx Incontinence: Yes - PSYCHIATRIC Hx Anxiety: Yes Hx Depression: Yes - SURGICAL HISTORY Hx Cholecystectomy: Yes Hx Tonsillectomy: Yes - ANESTHESIA Hx Anesthesia: Yes Hx Anesthesia Reactions: Yes (Resp. Distress) Hx Malignant Hyperthermia: No Meds Allergies/Adverse Reactions: Allergies Allergy/AdvReac Type Severity Reaction Status Date / Time codeine AdvReac syncope, Verified 11/17/17 08:57 diaphoresis - Medications Medications: Current Medications Acetaminophen (Tylenol 325mg Tab) 650 mg PO Q4 PRN PRN Reason: Pain, Mild (1-3) Albuterol/Ipratropium (Duoneb 3 Mg/0.5 Mg (3 Ml) Ud) 3 ml INH RQ6 PRN PRN Reason: Shortness of Breath Aripiprazole (Abilify) 2 mg PO HS [facility] Last Admin: 12/19/17 22:40 Dose: 2 mg Aspirin (Ecotrin) 81 mg PO DAILY [facility] Atorvastatin Calcium (Lipitor) 20 mg PO DAILY [facility] Last Admin: 12/20/17 08:12 Dose: 20 mg Benztropine Mesylate (Cogentin) 1 mg PO BID [facility] Last Admin: 12/20/17 08:10 Dose: 1 mg Clonazepam (Klonopin) 0.5 mg PO DAILY PRN PRN Reason: Anxiety Dextrose (Dextrose 50% Inj) 0 ml IV STAT PRN; Protocol PRN Reason: Hypoglycemia Protocol Dextrose (Glutose 15) 0 gm PO ONCE PRN; Protocol PRN Reason: Hypoglycemia Protocol Duloxetine HCl (Cymbalta) 20 mg PO DAILY [facility] Last Admin: 12/20/17 08:14 Dose: 20 mg Enalapril Maleate (Vasotec) 2.5 mg PO DAILY [facility] Last Admin: 12/20/17 08:18 Dose: 2.5 mg Enoxaparin Sodium (Lovenox) 40 mg SC DAILY [facility]; Protocol Last Admin: 12/20/17 08:12 Dose: 40 mg Escitalopram Oxalate (Lexapro) 10 mg PO DAILY [facility] Last Admin: 10/15/18 08:11 Dose: 10 mg Famotidine (Pepcid) 20 mg PO BID [facility] Last Admin: 12/20/17 08:10 Dose: 20 mg Ferrous Sulfate (Feosol) 325 mg PO DAILY [facility] Last Admin: 12/20/17 08:11 Dose: 325 mg Glucagon (Glucagen Diagnostic Kit) 0 mg IM STAT PRN; Protocol PRN Reason: Hypoglycemia Protocol Home Med (Riociguat [Adempas]) 2 mg PO TID [facility] Last Admin: 12/20/17 08:13 Dose: 2 mg Hydrocortisone (Cortef) 10 mg PO HS [facility] Last Admin: 12/19/17 22:40 Dose: 10 mg Dextrose/Sodium Chloride (Dextrose 5%/0.9% Ns 1000 Ml) 1,000 mls @ 80 mls/hr IV .[id number] [facility] Last Admin: 12/19/17 14:57 Dose: Not Given Potassium Chloride (Potassium Chloride 20 Meq/100 Ml) 100 mls @ 50 mls/hr IVPB Q2 [facility] Stop: 12/20/17 11:59 Last Admin: 12/20/17 09:24 Dose: 50 mls/hr Insulin Detemir (Levemir) 10 units SC [facility] Last Admin: 12/19/17 22:42 Dose: 10 units Insulin Human Lispro (Humalog) 0 units SC [facility]; Protocol Last Admin: 12/20/17 08:12 Dose: Not Given Ketorolac Tromethamine (Toradol) 15 mg IVP Q6 PRN PRN Reason: Pain, moderate (4-7) Levothyroxine Sodium (Synthroid) 50 mcg PO DAILY@0630 [facility] Last Admin: 12/20/17 06:05 Dose: 50 mcg Ondansetron HCl (Zofran Inj) 4 mg IVP Q6 PRN PRN Reason: Nausea/Vomiting Last Admin: 12/19/17 20:39 Dose: 4 mg Pantoprazole Sodium (Protonix Inj) 40 mg IVP DAILY [facility] Last Admin: 12/20/17 08:10 Dose: 40 mg Fluticasone/Salmeterol (Advair Diskus 250/50) 1 puff IH Q12 [facility] Last Admin: 12/20/17 08:09 Dose: 1 puff Torsemide (Demadex) 20 mg PO DAILY [facility] Last Admin: 12/20/17 08:10 Dose: 20 mg Results - Vital Signs Recent Vital Signs: Last Vital Signs Temp 97.9 F 12/20/17 08:18 Pulse 87 12/20/17 08:18 Resp 18 12/20/17 08:18 BP 117/64 12/20/17 08:18 Pulse Ox 99 12/20/17 08:18 - Labs Result Diagrams: 12/20/17 04:50 12/20/17 04:50 Labs: Laboratory Results - last 24 hr 12/19/17 12/19/17 12/19/17 06:00 11:34 17:02 WBC RBC Hgb Hct MCV MCH MCHC RDW Plt Count Sodium Potassium Chloride Carbon Dioxide Anion Gap BUN Creatinine Est GFR ( Amer) Est GFR (Non-Af Amer) POC Glucose (mg/dL) 108 87 Random Glucose Calcium Phosphorus Magnesium Total Bilirubin AST ALT Alkaline Phosphatase Total Protein Albumin Globulin Albumin/Globulin Ratio Procalcitonin 0.06 L 12/19/17 12/20/17 12/20/17 21:30 04:50 04:50 WBC 5.1 RBC 3.09 L Hgb 9.0 L Hct 27.8 L MCV 90.1 MCH 29.2 MCHC 32.4 L RDW 17.6 H Plt Count 230 Sodium 139 Potassium 3.5 L Chloride 106 Carbon Dioxide 28 Anion Gap 9 L BUN 9 Creatinine 0.9 Est GFR ( Amer) > 60 Est GFR (Non-Af Amer) > 60 POC Glucose (mg/dL) 93 Random Glucose 120 H Calcium 6.6 L Phosphorus 3.7 Magnesium 1.2 L Total Bilirubin 0.3 AST 33 ALT 33 Alkaline Phosphatase 102 Total Protein 6.0 L Albumin 3.0 L D Globulin 3.0 Albumin/Globulin Ratio 1.0 Procalcitonin 12/20/17 05:22 WBC RBC Hgb Hct MCV MCH MCHC RDW Plt Count Sodium Potassium Chloride Carbon Dioxide Anion Gap BUN Creatinine Est GFR ( Amer) Est GFR (Non-Af Amer) POC Glucose (mg/dL) 124 H Random Glucose Calcium Phosphorus Magnesium Total Bilirubin AST ALT Alkaline Phosphatase Total Protein Albumin Globulin Albumin/Globulin Ratio Procalcitonin
--- NOTE | 2017-12-20 09:54 | CP.PCM.PN ---
Addendum entered and electronically signed by Birdie Granados MD 12/20/17 14:55: Patient was seen and examined bedside. All chart and clinical data reviewed . Case discussed with resident . Agree with assessment and plan. Patient is hemodynamically stable, afebrile Abdomen is soft , denies nausea or vomiting, passing flatus , BS present Partial SBO seems to be resolving . Will start liquid diet and advance to soft if tolerated Started PT and ambulation Antibiotics discontinued since Pneumonia ruled out patient has MM currently on chemotherapy with Dr. Vilchis . New lytic lesion seen on left acetabulum most likely related to MM. patient will follow up with her Chemo on Wednesday after discharge . Anemia- most likely chronic due to MM Dispo d/c home if tolerates PO Addendum entered and electronically signed by Ana Ramirez MD 12/20/17 11:43: Today, Mg- 1.2 & K-3.5; both were replaced; Follow up ionized calcium, and replace as needed. Original Note: Subjective - Date & Time of Evaluation Date of Evaluation: 12/20/17 Time of Evaluation: 09:19 - Subjective Subjective: Patient was seen and examined this AM. Patient endorses her abdominal pain has improved, 4/10 today, and continues to pass flatus. She denied any fever, chills, nausea or vomiting. Objective - Vital Signs/Intake and Output Vital Signs (last 24 hours): Temp Pulse Resp BP Pulse Ox 97.9 F 87 18 117/64 99 12/20/17 08:18 12/20/17 08:18 12/20/17 08:18 12/20/17 08:18 12/20/17 08:18 - Medications Medications: Current Medications Acetaminophen (Tylenol 325mg Tab) 650 mg PO Q4 PRN PRN Reason: Pain, Mild (1-3) Albuterol/Ipratropium (Duoneb 3 Mg/0.5 Mg (3 Ml) Ud) 3 ml INH RQ6 PRN PRN Reason: Shortness of Breath Aripiprazole (Abilify) 2 mg PO HS [facility] Last Admin: 12/19/17 22:40 Dose: 2 mg Aspirin (Ecotrin) 81 mg PO DAILY [facility] Atorvastatin Calcium (Lipitor) 20 mg PO DAILY [facility] Last Admin: 12/20/17 08:12 Dose: 20 mg Benztropine Mesylate (Cogentin) 1 mg PO BID [facility] Last Admin: 12/20/17 08:10 Dose: 1 mg Clonazepam (Klonopin) 0.5 mg PO DAILY PRN PRN Reason: Anxiety Dextrose (Dextrose 50% Inj) 0 ml IV STAT PRN; Protocol PRN Reason: Hypoglycemia Protocol Dextrose (Glutose 15) 0 gm PO ONCE PRN; Protocol PRN Reason: Hypoglycemia Protocol Duloxetine HCl (Cymbalta) 20 mg PO DAILY [facility] Last Admin: 12/20/17 08:14 Dose: 20 mg Enalapril Maleate (Vasotec) 2.5 mg PO DAILY [facility] Last Admin: 12/20/17 08:18 Dose: 2.5 mg Enoxaparin Sodium (Lovenox) 40 mg SC DAILY [facility]; Protocol Last Admin: 12/20/17 08:12 Dose: 40 mg Escitalopram Oxalate (Lexapro) 10 mg PO DAILY [facility] Last Admin: 12/20/17 08:11 Dose: 10 mg Famotidine (Pepcid) 20 mg PO BID [facility] Last Admin: 12/20/17 08:10 Dose: 20 mg Ferrous Sulfate (Feosol) 325 mg PO DAILY [facility] Last Admin: 12/20/17 08:11 Dose: 325 mg Glucagon (Glucagen Diagnostic Kit) 0 mg IM STAT PRN; Protocol PRN Reason: Hypoglycemia Protocol Home Med (Riociguat [Adempas]) 2 mg PO TID [facility] Last Admin: 12/20/17 08:13 Dose: 2 mg Hydrocortisone (Cortef) [address] [facility] Last Admin: 12/19/17 22:40 Dose: 10 mg Dextrose/Sodium Chloride (Dextrose 5%/0.9% Ns 1000 Ml) 1,000 mls @ 80 mls/hr IV .[id number] [facility] Last Admin: 12/19/17 14:57 Dose: Not Given Potassium Chloride (Potassium Chloride 20 Meq/100 Ml) 100 mls @ 50 mls/hr IVPB Q2 [facility] Stop: 12/20/17 11:59 Last Admin: 12/20/17 09:24 Dose: 50 mls/hr Insulin Detemir (Levemir) [address] [facility] Last Admin: 12/19/17 22:42 Dose: 10 units Insulin Human Lispro (Humalog) 0 units SC [facility]; Protocol Last Admin: 12/20/17 08:12 Dose: Not Given Ketorolac Tromethamine (Toradol) 15 mg IVP Q6 PRN PRN Reason: Pain, moderate (4-7) Levothyroxine Sodium (Synthroid) 50 mcg PO DAILY@0630 [facility] Last Admin: 12/20/17 06:05 Dose: 50 mcg Ondansetron HCl (Zofran Inj) 4 mg IVP Q6 PRN PRN Reason: Nausea/Vomiting Last Admin: 12/19/17 20:39 Dose: 4 mg Pantoprazole Sodium (Protonix Inj) 40 mg IVP DAILY [facility] Last Admin: 12/20/17 08:10 Dose: 40 mg Fluticasone/Salmeterol (Advair Diskus 250/50) 1 puff IH Q12 [facility] Last Admin: 12/20/17 08:09 Dose: 1 puff Torsemide (Demadex) 20 mg PO DAILY [facility] Last Admin: 12/20/17 08:10 Dose: 20 mg - Labs Labs: 12/20/17 04:50 12/20/17 04:50 - Constitutional Appears: No Acute Distress - Head Exam Head Exam: ATRAUMATIC - Neck Exam Neck Exam: Full ROM - Respiratory Exam Respiratory Exam: Clear to Ausculation Bilateral - Cardiovascular Exam Cardiovascular Exam: REGULAR RHYTHM, +S1, +S2 - GI/Abdominal Exam Additional comments: large pannus, soft, some mild generalized tenderness, but no rigidity or guarding - Extremities Exam Extremities Exam: absent: Calf Tenderness - Neurological Exam Neurological Exam: Alert, Awake, Oriented x3 - Skin Skin Exam: Dry, Intact Assessment and Plan - Assessment and Plan (Free Text) Assessment: 71 y/o F with medical hx of multiple myeloma, pulmonary hypertension, and COPD on home oxygen who presented to ED with nausea, vomitting, and diarrhea was admitted for partial small bowel obstruction. 1. Partial SBO with nausea, vomitting, & Abd pain (Acute, symptomatic) -Surgical recommendations have been appreciated. -Liquid diet started today & continue to hold medications. -Continue tylenol & toradol PRN for pain. -KUB showed persistent mildly dilated small bowel loops at the mid & lower abdomen. 2. Suspected Pneumonia (Acute, ruled out) -CT chest reported no pneumonia. -Antibiotics were discontinued. -No growth on blood cultures after 24 hours. 3. COPD (Chronic, stable) -Continue advair diskus 250/50 BID 4. DMII (Chronic, stable) -Levemir was decreased from 20 units SC HS to 10 given that the patient is NPO yesterday. -Continue to monitor accuchecks, and increase levemir as needed. -Continue lispro 5 units SC Q6. -Continue accucheck ACHS. -Continue hypogylcemia protocol. 5. Hypothyroidism (Chronic) -Hold Levothyroxine 50 mcg for bowel rest. 6. Sleep Apnea (Chronic) -Continue CPAP HS (Home setting : ) 7. Pulmonary Hypertension (Chronic) - Riociguat 2mg PO TID on hold for bowel rest. 8. Depression (Chronic, controlled) -Outpatient F/u by Dr Chase Miller -Clonazepam 0.5 PO PRN anxiety (Hold for bowel rest) -EScitalopram 10 PO QD (Hold for bowel rest) - Duloxetine 20 mg PO (Hold for bowel rest) -Aripiprazole 2 PO QD (Hold for bowel rest) 9. Multiple Myeloma (Chronic) -CT showed worsening of T2 compression deformity since previous exam. Interval appearance of new lytic lesion at left acetabulum extending to base of left anterior pubiic ramus & associated with small focal cortical destruction. -Patient is not complaining of pain. -Continue to monitor. 10. DVT Prophylaxis -Continue Lovenox 40 mg SC 11. Code Status unknown Full code
--- NOTE | 2017-12-20 10:19 | CP.PCM.PN ---
Subjective - Date & Time of Evaluation Date of Evaluation: 12/20/17 Time of Evaluation: 10:19 - Subjective Subjective: General Surgery Pt seen and examined this AM. She reports feeling well with mild abdominal pain. She states she has been passing a lot of gas. (-) BM since 12/18/17 which was diarrhea pt reports. Pt denies N/V. She reports she has not been out of bed yet and would like to because her legs feel sore. At home she is wheelchair bound. Labs and Vitals noted. K and Mag low. Currently being repleted. PE Gen: Pt laying in bed in NAD Skin: warm and dry Cardio: s1s2 RRR Lungs: CTA bilaterally Abd: Soft, (+) mild generalized tenderness Extr: (-) swelling or erythema A/P SBO Appears to be resolving as evidenced by pt with large amount of flatus today. Advance diet to clears as tolerated Monitor labs Legs readjusted with pillow, pt is pending PT eval. Objective - Vital Signs/Intake and Output Vital Signs (last 24 hours): Temp Pulse Resp BP Pulse Ox 97.9 F 87 18 117/64 99 12/20/17 08:18 12/20/17 08:18 12/20/17 08:18 12/20/17 08:18 12/20/17 08:18 - Medications Medications: Current Medications Acetaminophen (Tylenol 325mg Tab) 650 mg PO Q4 PRN PRN Reason: Pain, Mild (1-3) Albuterol/Ipratropium (Duoneb 3 Mg/0.5 Mg (3 Ml) Ud) 3 ml INH RQ6 PRN PRN Reason: Shortness of Breath Aripiprazole (Abilify) 2 mg PO HS [facility] Last Admin: 12/19/17 22:40 Dose: 2 mg Aspirin (Ecotrin) 81 mg PO DAILY [facility] Atorvastatin Calcium (Lipitor) 20 mg PO DAILY [facility] Last Admin: 12/20/17 08:12 Dose: 20 mg Benztropine Mesylate (Cogentin) 1 mg PO BID [facility] Last Admin: 12/20/17 08:10 Dose: 1 mg Clonazepam (Klonopin) 0.5 mg PO DAILY PRN PRN Reason: Anxiety Dextrose (Dextrose 50% Inj) 0 ml IV STAT PRN; Protocol PRN Reason: Hypoglycemia Protocol Dextrose (Glutose 15) 0 gm PO ONCE PRN; Protocol PRN Reason: Hypoglycemia Protocol Duloxetine HCl (Cymbalta) 20 mg PO DAILY [facility] Last Admin: 12/20/17 08:14 Dose: 20 mg Enalapril Maleate (Vasotec) 2.5 mg PO DAILY [facility] Last Admin: 12/20/17 08:18 Dose: 2.5 mg Enoxaparin Sodium (Lovenox) 40 mg SC DAILY [facility]; Protocol Last Admin: 12/20/17 08:12 Dose: 40 mg Escitalopram Oxalate (Lexapro) 10 mg PO DAILY [facility] Last Admin: 12/20/17 08:11 Dose: 10 mg Famotidine (Pepcid) 20 mg PO BID [facility] Last Admin: 12/20/17 08:10 Dose: 20 mg Ferrous Sulfate (Feosol) 325 mg PO DAILY [facility] Last Admin: 12/20/17 08:11 Dose: 325 mg Glucagon (Glucagen Diagnostic Kit) 0 mg IM STAT PRN; Protocol PRN Reason: Hypoglycemia Protocol Home Med (Riociguat [Adempas]) 2 mg PO TID [facility] Last Admin: 12/20/17 08:13 Dose: 2 mg Hydrocortisone (Cortef) 10 mg PO HS [facility] Last Admin: 12/19/17 22:40 Dose: 10 mg Dextrose/Sodium Chloride (Dextrose 5%/0.9% Ns 1000 Ml) 1,000 mls @ 80 mls/hr IV .[id number] [facility] Last Admin: 12/19/17 14:57 Dose: Not Given Potassium Chloride (Potassium Chloride 20 Meq/100 Ml) 100 mls @ 50 mls/hr IVPB Q2 [facility] Stop: 12/20/17 11:59 Last Admin: 12/20/17 09:24 Dose: 50 mls/hr Insulin Detemir (Levemir) 10 units SC [facility] Last Admin: 12/19/17 22:42 Dose: 10 units Insulin Human Lispro (Humalog) 0 units SC [facility]; Protocol Last Admin: 12/20/17 08:12 Dose: Not Given Ketorolac Tromethamine (Toradol) 15 mg IVP Q6 PRN PRN Reason: Pain, moderate (4-7) Levothyroxine Sodium (Synthroid) 50 mcg PO DAILY@0630 [facility] Last Admin: 12/20/17 06:05 Dose: 50 mcg Ondansetron HCl (Zofran Inj) 4 mg IVP Q6 PRN PRN Reason: Nausea/Vomiting Last Admin: 12/19/17 20:39 Dose: 4 mg Pantoprazole Sodium (Protonix Inj) 40 mg IVP DAILY [facility] Last Admin: 12/20/17 08:10 Dose: 40 mg Fluticasone/Salmeterol (Advair Diskus 250/50) 1 puff IH Q12 [facility] Last Admin: 12/20/17 08:09 Dose: 1 puff Torsemide (Demadex) 20 mg PO DAILY [facility] Last Admin: 12/20/17 08:10 Dose: 20 mg - Labs Labs: 12/20/17 04:50 12/20/17 04:50
[2017-12-20] MEDS ORDERED: levoFLOXacin 750 mg in D5W 750 MG/150 ML BAG IVPB SCH ×2 (10:53)
[2017-12-20] MEDS: Dextrose 5%/0.9% NS 1,000 ML IV SCH (14:19)
--- NOTE | 2017-12-20 14:44 | CARD ---
APPROVED REPORT Date of service: 12/20/2017 EKG Measurement Heart [id number] <Conclusion> Normal sinus rhythm Low voltage QRS Prolonged QT Abnormal ECG
--- NOTE | 2017-12-20 16:01 | PQF ---
PROVIDER RESPONSE TEXT: REVIEWER QUERY TEXT: Heart Failure Acuity and Type Congestive Heart Failure is documented in the Medical Record. Please document the type and acuity (in cludes probable or suspected) Such as: Type: -- Combined systolic and diastolic (heart failure with reduced ejection fraction and diastolic) dysfu nction -- Diastolic (HFpEF) -- Systolic (HFrEF) -- Left heart failure -- Right heart failure -- Right heart failure due to left heart failure -- High output failure -- End stage heart failure -- Other, please specify Acuity: -- Acute -- Chronic -- Acute on chronic -- Other, please specify The patient's Clinical Indicators include: Documentation of a history of CHF Pro BNP : ECHO From August 25, 2017: LV systolic function normal, EF 60-65%, Transmitral Doppler flow pattern is Grade 1 abnormal relaxation pattern Medication: Enalapril Query created by: Tamar Garcia on 12/20/2017 1:05 PM Electronically signed by: Ana Ramirez 12/20/2017 3:58 PM
[2017-12-20] MEDS: Insulin Detemir 100 Units/ml Inj SC SCH (22:48)
[2017-12-21] MEDS: Dextrose 5%/0.9% NS 1,000 ML IV SCH (04:57)
[2017-12-21 05:16] LABS: HEMOGLOBIN 8.7 g/dL (12.0-16.0); MEAN CELL VOLUME 90.2 fl (81.0-99.0); MEAN CORPUSCULAR HEMOGLOBIN 29.6 pg (27.0-31.0); MEAN CORPUSCULAR HGB CONC 32.9 g/dL (33.0-37.0); RBC 2.94 Mil/uL (3.80-5.20); RED CELL DISTRIBUTION WIDTH 18.1 % (11.5-14.5); WHITE BLOOD COUNT 4.7 K/uL (4.8-10.8)
[2017-12-21 05:32] LABS: BLOOD UREA NITROGEN 7 mg/dl (7-17); CALCIUM 6.4 mg/dL (8.4-10.2); GFR NON-AFRICAN AMERICAN > 60
[2017-12-21] MEDS: Insulin Lispro (humaLOG) 100 Units/ml Inj SC SCH ×4 (06:46→21:37)
[2017-12-21] MEDS: Levothyroxine 50 MCG TAB PO SCH (06:46)
--- NOTE | 2017-12-21 08:42 | CP.PCM.PN ---
Subjective - Date & Time of Evaluation Date of Evaluation: 12/21/17 Time of Evaluation: 08:38 - Subjective Subjective: Surgery: Dr. Paz Pt seen and examined. No acute overnight events. Pt states she feels a lot better and abdominal pain has resolved. She denies any more episodes of nausea/vomiting. She admits to tolerating clears yesterday and continues to have flatus. Denies BM. Denies fevers/chills. Objective - Vital Signs/Intake and Output Vital Signs (last 24 hours): Temp Pulse Resp BP Pulse Ox 97.3 F L 82 18 117/68 98 12/21/17 08:08 12/21/17 08:08 12/21/17 08:08 12/21/17 08:08 12/21/17 08:08 - Medications Medications: Current Medications Acetaminophen (Tylenol 325mg Tab) 650 mg PO Q4 PRN PRN Reason: Pain, Mild (1-3) Albuterol/Ipratropium (Duoneb 3 Mg/0.5 Mg (3 Ml) Ud) 3 ml INH RQ6 PRN PRN Reason: Shortness of Breath Aripiprazole (Abilify) 2 mg PO HS [facility] Last Admin: 12/20/17 21:20 Dose: 2 mg Aspirin (Ecotrin) 81 mg PO DAILY [facility] Atorvastatin Calcium (Lipitor) 20 mg PO DAILY [facility] Last Admin: 12/20/17 14:41 Dose: 20 mg Benztropine Mesylate (Cogentin) 1 mg PO BID [facility] Last Admin: 12/20/17 16:38 Dose: 1 mg Clonazepam (Klonopin) 0.5 mg PO DAILY PRN PRN Reason: Anxiety Last Admin: 12/21/17 01:11 Dose: 0.5 mg Dextrose (Dextrose 50% Inj) 0 ml IV STAT PRN; Protocol PRN Reason: Hypoglycemia Protocol Dextrose (Glutose 15) 0 gm PO ONCE PRN; Protocol PRN Reason: Hypoglycemia Protocol Duloxetine HCl (Cymbalta) 20 mg PO DAILY [facility] Last Admin: 12/20/17 14:41 Dose: 20 mg Enalapril Maleate (Vasotec) 2.5 mg PO DAILY [facility] Last Admin: 12/20/17 08:18 Dose: 2.5 mg Enoxaparin Sodium (Lovenox) 40 mg SC DAILY [facility]; Protocol Last Admin: 12/20/17 08:12 Dose: 40 mg Escitalopram Oxalate (Lexapro) 10 mg PO DAILY [facility] Last Admin: 12/20/17 14:41 Dose: 10 mg Famotidine (Pepcid) 20 mg PO BID [facility] Last Admin: 12/20/17 16:37 Dose: 20 mg Ferrous Sulfate (Feosol) 325 mg PO DAILY [facility] Last Admin: 12/20/17 14:42 Dose: 325 mg Glucagon (Glucagen Diagnostic Kit) 0 mg IM STAT PRN; Protocol PRN Reason: Hypoglycemia Protocol Home Med (Riociguat [Adempas]) 2 mg PO TID [facility] Last Admin: 12/20/17 16:37 Dose: 2 mg Hydrocortisone (Cortef) 10 mg PO HS [facility] Last Admin: 12/20/17 21:20 Dose: 10 mg Dextrose/Sodium Chloride (Dextrose 5%/0.9% Ns 1000 Ml) 1,000 mls @ 80 mls/hr IV .[id number] [facility] Last Admin: 12/21/17 04:57 Dose: Not Given Insulin Detemir (Levemir) 10 units SC [facility] Last Admin: 12/20/17 22:48 Dose: 10 units Insulin Human Lispro (Humalog) 0 units SC [facility]; Protocol Last Admin: 12/21/17 06:46 Dose: 1 unit Ketorolac Tromethamine (Toradol) 15 mg IVP Q6 PRN PRN Reason: Pain, moderate (4-7) Levothyroxine Sodium (Synthroid) 50 mcg PO DAILY@0630 [facility] Last Admin: 12/21/17 06:46 Dose: 50 mcg Ondansetron HCl (Zofran Inj) 4 mg IVP Q6 PRN PRN Reason: Nausea/Vomiting Last Admin: 12/19/17 20:39 Dose: 4 mg Pantoprazole Sodium (Protonix Inj) 40 mg IVP DAILY [facility] Last Admin: 12/20/17 08:10 Dose: 40 mg Fluticasone/Salmeterol (Advair Diskus 250/50) 1 puff IH Q12 [facility] Last Admin: 12/20/17 21:20 Dose: 1 puff Torsemide (Demadex) 20 mg PO DAILY [facility] Last Admin: 12/20/17 14:41 Dose: 20 mg - Labs Labs: 12/21/17 04:20 12/21/17 04:20 - Constitutional Appears: Well, No Acute Distress - Head Exam Head Exam: ATRAUMATIC, NORMOCEPHALIC - Eye Exam Eye Exam: Normal appearance - ENT Exam ENT Exam: Mucous Membranes Moist - Respiratory Exam Respiratory Exam: NORMAL BREATHING PATTERN - Cardiovascular Exam Cardiovascular Exam: RRR - GI/Abdominal Exam GI & Abdominal Exam: Soft. absent: Distended, Guarding, Tenderness - Neurological Exam Neurological Exam: Alert, Awake, Oriented x3 - Skin Skin Exam: Dry, Warm Assessment and Plan - Assessment and Plan (Free Text) Assessment: 71F with partial SBO; resolving Plan: - will discuss advancing diet with Dr. Paz - monitor bowel function Prema
--- NOTE | 2017-12-21 09:20 | CP.PCM.PN ---
Subjective - Date & Time of Evaluation Date of Evaluation: 12/21/17 Time of Evaluation: 09:16 - Subjective Subjective: General Pt seen and examined this AM. She reports she had one episode of non bloody diarrhea. She was started on solids this AM by medicine and denies any n/v. She only reports feeling bloated. (+) flatus Labs and vitals noted PE Gen: Pt sitting in chair in NAD Skin: warm and dry Cardio: s1s2 RRR Lungs: CTA in anterior lung lee, (+) rales at lower lobes posterior lungs lee bilaterally Abd: Soft, (+) mild LLQ tenderness A/P SBO Resolving, continue solid diet monitor bowel function d/c IVF as pt is consuming adequate liquids PO Objective - Vital Signs/Intake and Output Vital Signs (last 24 hours): Temp Pulse Resp BP Pulse Ox 97.3 F L 82 18 117/68 98 12/21/17 08:08 12/21/17 08:08 12/21/17 08:08 12/21/17 08:08 12/21/17 08:08 - Medications Medications: Current Medications Acetaminophen (Tylenol 325mg Tab) 650 mg PO Q4 PRN PRN Reason: Pain, Mild (1-3) Albuterol/Ipratropium (Duoneb 3 Mg/0.5 Mg (3 Ml) Ud) 3 ml INH RQ6 PRN PRN Reason: Shortness of Breath Aripiprazole (Abilify) 2 mg PO HS [facility] Last Admin: 12/20/17 21:20 Dose: 2 mg Aspirin (Ecotrin) 81 mg PO DAILY [facility] Atorvastatin Calcium (Lipitor) 20 mg PO DAILY [facility] Last Admin: 12/20/17 14:41 Dose: 20 mg Benztropine Mesylate (Cogentin) 1 mg PO BID [facility] Last Admin: 12/20/17 16:38 Dose: 1 mg Clonazepam (Klonopin) 0.5 mg PO DAILY PRN PRN Reason: Anxiety Last Admin: 12/21/17 01:11 Dose: 0.5 mg Dextrose (Dextrose 50% Inj) 0 ml IV STAT PRN; Protocol PRN Reason: Hypoglycemia Protocol Dextrose (Glutose 15) 0 gm PO ONCE PRN; Protocol PRN Reason: Hypoglycemia Protocol Docusate Sodium (Colace Liquid) 100 mg PO TID [facility] Stop: 12/24/17 09:01 Duloxetine HCl (Cymbalta) 20 mg PO DAILY [facility] Last Admin: 12/20/17 14:41 Dose: 20 mg Enalapril Maleate (Vasotec) 2.5 mg PO DAILY [facility] Last Admin: 12/20/17 08:18 Dose: 2.5 mg Enoxaparin Sodium (Lovenox) 40 mg SC DAILY [facility]; Protocol Last Admin: 12/20/17 08:12 Dose: 40 mg Escitalopram Oxalate (Lexapro) 10 mg PO DAILY [facility] Last Admin: 12/20/17 14:41 Dose: 10 mg Famotidine (Pepcid) 20 mg PO BID [facility] Last Admin: 12/20/17 16:37 Dose: 20 mg Ferrous Sulfate (Feosol) 325 mg PO DAILY [facility] Last Admin: 12/20/17 14:42 Dose: 325 mg Glucagon (Glucagen Diagnostic Kit) 0 mg IM STAT PRN; Protocol PRN Reason: Hypoglycemia Protocol Home Med (Riociguat [Adempas]) 2 mg PO TID [facility] Last Admin: 12/20/17 16:37 Dose: 2 mg Hydrocortisone (Cortef) 10 mg PO HS [facility] Last Admin: 12/20/17 21:20 Dose: 10 mg Insulin Detemir (Levemir) 10 units SC [facility] Last Admin: 12/20/17 22:48 Dose: 10 units Insulin Human Lispro (Humalog) 0 units SC [facility]; Protocol Last Admin: 12/21/17 06:46 Dose: 1 unit Ketorolac Tromethamine (Toradol) 15 mg IVP Q6 PRN PRN Reason: Pain, moderate (4-7) Levothyroxine Sodium (Synthroid) 50 mcg PO DAILY@0630 [facility] Last Admin: 12/21/17 06:46 Dose: 50 mcg Ondansetron HCl (Zofran Inj) 4 mg IVP Q6 PRN PRN Reason: Nausea/Vomiting Last Admin: 12/19/17 20:39 Dose: 4 mg Pantoprazole Sodium (Protonix Inj) 40 mg IVP DAILY [facility] Last Admin: 12/20/17 08:10 Dose: 40 mg Fluticasone/Salmeterol (Advair Diskus 250/50) 1 puff IH Q12 [facility] Last Admin: 12/20/17 21:20 Dose: 1 puff Torsemide (Demadex) 20 mg PO DAILY [facility] Last Admin: 12/20/17 14:41 Dose: 20 mg - Labs Labs: 12/21/17 04:20 12/21/17 04:20
[2017-12-21] MEDS: Fluticasone-Salmeterol 250-50mcg Diskus IH SCH ×2 (09:21→21:35)
[2017-12-21] MEDS: Enoxaparin 40 mg Syringe SC SCH (09:25)
[2017-12-21] MEDS: RIOCIGUAT 2 MG PO SCH ×3 (09:27→17:18)
--- NOTE | 2017-12-21 09:30 | CP.PCM.PN ---
Subjective - Date & Time of Evaluation Date of Evaluation: 12/21/17 Time of Evaluation: 09:30 - Subjective Subjective: NO CHEST PAIN/SOB OOB TO CHAIR Objective - Vital Signs/Intake and Output Vital Signs (last 24 hours): Temp Pulse Resp BP Pulse Ox 97.3 F L 82 18 117/68 98 12/21/17 08:08 12/21/17 08:08 12/21/17 08:08 12/21/17 08:08 12/21/17 08:08 - Medications Medications: Current Medications Acetaminophen (Tylenol 325mg Tab) 650 mg PO Q4 PRN PRN Reason: Pain, Mild (1-3) Albuterol/Ipratropium (Duoneb 3 Mg/0.5 Mg (3 Ml) Ud) 3 ml INH RQ6 PRN PRN Reason: Shortness of Breath Aripiprazole (Abilify) 2 mg PO HS [facility] Last Admin: 12/20/17 21:20 Dose: 2 mg Aspirin (Ecotrin) 81 mg PO DAILY [facility] Atorvastatin Calcium (Lipitor) 20 mg PO DAILY [facility] Last Admin: 12/20/17 14:41 Dose: 20 mg Benztropine Mesylate (Cogentin) 1 mg PO BID [facility] Last Admin: 12/20/17 16:38 Dose: 1 mg Clonazepam (Klonopin) 0.5 mg PO DAILY PRN PRN Reason: Anxiety Last Admin: 12/21/17 01:11 Dose: 0.5 mg Dextrose (Dextrose 50% Inj) 0 ml IV STAT PRN; Protocol PRN Reason: Hypoglycemia Protocol Dextrose (Glutose 15) 0 gm PO ONCE PRN; Protocol PRN Reason: Hypoglycemia Protocol Docusate Sodium (Colace Liquid) 100 mg PO TID [facility] Stop: 12/24/17 09:01 Duloxetine HCl (Cymbalta) 20 mg PO DAILY [facility] Last Admin: 12/20/17 14:41 Dose: 20 mg Enalapril Maleate (Vasotec) 2.5 mg PO DAILY [facility] Last Admin: 12/20/17 08:18 Dose: 2.5 mg Enoxaparin Sodium (Lovenox) 40 mg SC DAILY [facility]; Protocol Last Admin: 12/20/17 08:12 Dose: 40 mg Escitalopram Oxalate (Lexapro) 10 mg PO DAILY [facility] Last Admin: 12/20/17 14:41 Dose: 10 mg Famotidine (Pepcid) 20 mg PO BID [facility] Last Admin: 12/20/17 16:37 Dose: 20 mg Ferrous Sulfate (Feosol) 325 mg PO DAILY [facility] Last Admin: 12/20/17 14:42 Dose: 325 mg Glucagon (Glucagen Diagnostic Kit) 0 mg IM STAT PRN; Protocol PRN Reason: Hypoglycemia Protocol Home Med (Riociguat [Adempas]) 2 mg PO TID [facility] Last Admin: 12/20/17 16:37 Dose: 2 mg Hydrocortisone (Cortef) 10 mg PO HS [facility] Last Admin: 12/20/17 21:20 Dose: 10 mg Insulin Detemir (Levemir) 10 units SC HS [facility] Last Admin: 12/20/17 22:48 Dose: 10 units Insulin Human Lispro (Humalog) 0 units SC [facility]; Protocol Last Admin: 12/21/17 06:46 Dose: 1 unit Ketorolac Tromethamine (Toradol) 15 mg IVP Q6 PRN PRN Reason: Pain, moderate (4-7) Levothyroxine Sodium (Synthroid) 50 mcg PO DAILY@0630 [facility] Last Admin: 12/21/17 06:46 Dose: 50 mcg Ondansetron HCl (Zofran Inj) 4 mg IVP Q6 PRN PRN Reason: Nausea/Vomiting Last Admin: 12/19/17 20:39 Dose: 4 mg Pantoprazole Sodium (Protonix Inj) 40 mg IVP DAILY [facility] Last Admin: 12/20/17 08:10 Dose: 40 mg Fluticasone/Salmeterol (Advair Diskus 250/50) 1 puff IH Q12 [facility] Last Admin: 12/20/17 21:20 Dose: 1 puff Torsemide (Demadex) 20 mg PO DAILY [facility] Last Admin: 12/20/17 14:41 Dose: 20 mg - Labs Labs: 12/21/17 04:20 12/21/17 04:20 - Constitutional Appears: No Acute Distress - Head Exam Head Exam: ATRAUMATIC, NORMAL INSPECTION, NORMOCEPHALIC - Eye Exam Eye Exam: EOMI, Normal appearance, PERRL Pupil Exam: NORMAL ACCOMODATION, PERRL - ENT Exam ENT Exam: Mucous Membranes Moist, Normal Exam - Neck Exam Neck Exam: Full ROM, Normal Inspection. absent: Lymphadenopathy - Respiratory Exam Respiratory Exam: Clear to Ausculation Bilateral, NORMAL BREATHING PATTERN - Cardiovascular Exam Cardiovascular Exam: REGULAR RHYTHM, +S1, +S2. absent: Murmur - GI/Abdominal Exam GI & Abdominal Exam: Soft, Normal Bowel Sounds. absent: Tenderness - Rectal Exam Rectal Exam: NORMAL INSPECTION - Extremities Exam Extremities Exam: Full ROM, Normal Capillary Refill, Normal Inspection. absent: Joint Swelling, Pedal Edema - Back Exam Back Exam: NORMAL INSPECTION - Neurological Exam Neurological Exam: Alert, Awake, CN II-XII Intact, Normal Gait, Oriented x3 - Psychiatric Exam Psychiatric exam: Normal Affect, Normal Mood - Skin Skin Exam: Dry, Intact, Normal Color, Warm Assessment and Plan - Assessment and Plan (Free Text) Assessment: COPD-STABLE SLEEP APNEA STABLE Plan: NO FURTHER PULMONARY INTERVENTION FOR NOW WILL SIGN OFF CASE AND SEE AGAIN AT YOUR REQUEST
--- NOTE | 2017-12-21 10:03 | CP.PCM.PN ---
Addendum entered and electronically signed by David Neumann MD 12/23/17 00:45: Patient seen and examined with residents case reviewed plan discussed and documented in resident note advance diet correct calcium and magnesium Original Note: Subjective - Date & Time of Evaluation Date of Evaluation: 12/21/17 Time of Evaluation: 10:03 - Subjective Subjective: Pt is a 71 y/o F with pmhx of multiple myeloma, pulmonary hypertension, COPD on home oxygen, HTN,DM, hypothyroid, depression, and MARQUIS on CPAP who presented to ED with nausea, vomiting, diarrhea and epigastric pain was admitted for partial SBO. Pt feels well overnight still has mild midepigastric pain, pt had 4 episodes of diarrhea, insomnia, has decreased appetite, denies fevers, chills, nausea, vomiting, chest pain, SOB or dysuria. Objective - Vital Signs/Intake and Output Vital Signs (last 24 hours): Temp Pulse Resp BP Pulse Ox 97.3 F L 82 18 117/68 98 12/21/17 08:08 12/21/17 08:08 12/21/17 08:08 12/21/17 08:08 12/21/17 08:08 - Medications Medications: Current Medications Acetaminophen (Tylenol 325mg Tab) 650 mg PO Q4 PRN PRN Reason: Pain, Mild (1-3) Albuterol/Ipratropium (Duoneb 3 Mg/0.5 Mg (3 Ml) Ud) 3 ml INH RQ6 PRN PRN Reason: Shortness of Breath Aripiprazole (Abilify) 2 mg PO HS [facility] Last Admin: 12/20/17 21:20 Dose: 2 mg Aspirin (Ecotrin) 81 mg PO DAILY [facility] Last Admin: 12/21/17 09:33 Dose: 81 mg Atorvastatin Calcium (Lipitor) 20 mg PO DAILY [facility] Last Admin: 12/21/17 09:25 Dose: 20 mg Benztropine Mesylate (Cogentin) 1 mg PO BID [facility] Last Admin: 12/21/17 09:22 Dose: 1 mg Clonazepam (Klonopin) 0.5 mg PO DAILY PRN PRN Reason: Anxiety Last Admin: 12/21/17 01:11 Dose: 0.5 mg Dextrose (Dextrose 50% Inj) 0 ml IV STAT PRN; Protocol PRN Reason: Hypoglycemia Protocol Dextrose (Glutose 15) 0 gm PO ONCE PRN; Protocol PRN Reason: Hypoglycemia Protocol Docusate Sodium (Colace Liquid) 100 mg PO TID [facility] Stop: 12/24/17 09:01 Last Admin: 12/21/17 09:36 Dose: 100 mg Duloxetine HCl (Cymbalta) 20 mg PO DAILY [facility] Last Admin: 12/21/17 09:22 Dose: 20 mg Enalapril Maleate (Vasotec) 2.5 mg PO DAILY [facility] Last Admin: 12/21/17 09:29 Dose: 2.5 mg Enoxaparin Sodium (Lovenox) 40 mg SC DAILY [facility]; Protocol Last Admin: 12/21/17 09:25 Dose: 40 mg Escitalopram Oxalate (Lexapro) 10 mg PO DAILY [facility] Last Admin: 12/21/17 09:24 Dose: 10 mg Famotidine (Pepcid) 20 mg PO BID [facility] Last Admin: 12/21/17 09:25 Dose: 20 mg Ferrous Sulfate (Feosol) 325 mg PO DAILY [facility] Last Admin: 12/21/17 09:24 Dose: 325 mg Glucagon (Glucagen Diagnostic Kit) 0 mg IM STAT PRN; Protocol PRN Reason: Hypoglycemia Protocol Home Med (Riociguat [Adempas]) 2 mg PO TID [facility] Last Admin: 12/21/17 09:27 Dose: 2 mg Hydrocortisone (Cortef) 10 mg PO [facility] Last Admin: 12/20/17 21:20 Dose: 10 mg Insulin Detemir (Levemir) 10 units SC [facility] Last Admin: 12/20/17 22:48 Dose: 10 units Insulin Human Lispro (Humalog) 0 units SC [facility]; Protocol Last Admin: 12/21/17 06:46 Dose: 1 unit Ketorolac Tromethamine (Toradol) 15 mg IVP Q6 PRN PRN Reason: Pain, moderate (4-7) Levothyroxine Sodium (Synthroid) 50 mcg PO DAILY@0630 [facility] Last Admin: 12/21/17 06:46 Dose: 50 mcg Ondansetron HCl (Zofran Inj) 4 mg IVP Q6 PRN PRN Reason: Nausea/Vomiting Last Admin: 12/19/17 20:39 Dose: 4 mg Pantoprazole Sodium (Protonix Inj) 40 mg IVP DAILY [facility] Last Admin: 12/21/17 09:25 Dose: 40 mg Fluticasone/Salmeterol (Advair Diskus 250/50) 1 puff IH Q12 [facility] Last Admin: 12/21/17 09:21 Dose: 1 puff Torsemide (Demadex) 20 mg PO DAILY [facility] Last Admin: 12/21/17 09:23 Dose: 20 mg - Labs Labs: 12/21/17 04:20 12/21/17 04:20 - Constitutional Appears: Well, Non-toxic, No Acute Distress - Head Exam Head Exam: ATRAUMATIC, NORMAL INSPECTION, NORMOCEPHALIC - Eye Exam Eye Exam: EOMI, Normal appearance, PERRL - ENT Exam ENT Exam: Mucous Membranes Moist - Respiratory Exam Respiratory Exam: Rales (Scattered ), NORMAL BREATHING PATTERN - Cardiovascular Exam Cardiovascular Exam: RRR, +S1, +S2 - GI/Abdominal Exam GI & Abdominal Exam: Soft, Tenderness (Mid epigastric ), Normal Bowel Sounds - Extremities Exam Extremities Exam: Normal Inspection - Neurological Exam Neurological Exam: Alert, Awake, Oriented x3 Assessment and Plan - Assessment and Plan (Free Text) Plan: 71 y/o F with pmhx of multiple myeloma, pulmonary hypertension, COPD on home oxygen, HTN, DM, hypothyroid, depression, and MARQUIS on CPAP who presented to ED with nausea, vomiting, diarrhea and epigastric pain was admitted for partial SBO. 1. Partial SBO with nausea, vomiting, diarrhea, epigastric pain -Improving SBO -Surgical recommendations have been appreciated- Dr. Paz -Pt was advanced to regular diet however decreased appetite in AM -Continue tylenol & toradol PRN for pain. -KUB showed persistent mildly dilated small bowel loops at the mid & lower abdomen. -D/C Colace due to 4 episodes of diarrhea -Continue to monitor electrolytes 2. Suspected Pneumonia (Acute, ruled out) -CT chest reported no pneumonia -Antibiotics were discontinued -No growth on blood cultures after 48 hours. 3. COPD (Chronic, stable) -Continue advair diskus 250/50 BID 4. DMII (Chronic, stable) -Levemir 10 units SC HS -Continue to monitor accuchecks ACHS, and increase levemir as needed. -Continue lispro -Continue hypogylcemia protocol. 5. Hypothyroidism (Chronic) -Levothyroxine 50 mcg QD 6. Sleep Apnea (Chronic) -Continue CPAP HS (Home setting : ) 7. Pulmonary Hypertension (Chronic) - Riociguat 2mg PO TID 8. Depression (Chronic, controlled) -Outpatient F/u by Dr Chase Miller -Clonazepam 0.5 PO PRN anxiety -Escitalopram 10 PO QD -Duloxetine 20 mg PO -Aripiprazole 2 PO QD 9. Multiple Myeloma (Chronic) -CT showed worsening of T2 compression deformity since previous exam. Interval appearance of new lytic lesion at left acetabulum extending to base of left anterior pubic ramus & associated with small focal cortical destruction. -Patient states she has decreased leg pain -Continue to monitor. 10. Hypocalcemia -Corrected 7.2 -EKG- prolonged QT -Calcitriol 0.5mg PO BID -Calcium carbonate 1,000mg PO TID -F/u Vitamin D level in AM -Ionized Ca2+ order in progress -F/u PTH level in AM 10. DVT Prophylaxis -Continue Lovenox 40 mg SC 11. Code Status Unknown Full code
--- NOTE | 2017-12-21 15:48 | CARD ---
APPROVED REPORT Date of service: 12/21/2017 EKG Measurement Heart [id number] <Conclusion> Normal sinus rhythm Low voltage QRS Prolonged QT Abnormal ECG
[2017-12-21] MEDS: Insulin Detemir 100 Units/ml Inj SC SCH (21:35)
[2017-12-22 05:25] LABS: BASO % 0.3 % (0.0-2.0); EOS # 0.2 K/uL (0.0-0.7); EOS % 3.1 % (0.0-4.0); HEMOGLOBIN 8.8 g/dL (12.0-16.0); LYMPH # 0.3 K/uL (1.0-4.3); LYMPH % 6.1 % (20.0-40.0); MEAN CORPUSCULAR HEMOGLOBIN 30.2 pg (27.0-31.0); MEAN CORPUSCULAR HGB CONC 33.6 g/dL (33.0-37.0); MEAN PLATELET VOLUME 8.2 fl (7.2-11.7); MONO # 0.7 K/uL (0.0-0.8); MONO % 13.6 % (0.0-10.0); NEUT # 3.9 K/uL (1.8-7.0); NEUT % 76.9 % (50.0-75.0); PLATELET COUNT 216 K/uL (130-400); RBC 2.92 Mil/uL (3.80-5.20); RED CELL DISTRIBUTION WIDTH 17.7 % (11.5-14.5); WHITE BLOOD COUNT 5.1 K/uL (4.8-10.8)
[2017-12-22 05:54] LABS: BLOOD UREA NITROGEN 10 mg/dl (7-17); CALCIUM 6.9 mg/dL (8.4-10.2); GFR NON-AFRICAN AMERICAN > 60
[2017-12-22] MEDS: Insulin Lispro (humaLOG) 100 Units/ml Inj SC SCH ×2 (06:54→12:56)
[2017-12-22] MEDS: Levothyroxine 50 MCG TAB PO SCH (06:54)
[2017-12-22] MEDS: Fluticasone-Salmeterol 250-50mcg Diskus IH SCH (08:41)
[2017-12-22] MEDS: RIOCIGUAT 2 MG PO SCH ×2 (08:43→12:57)
[2017-12-22] MEDS: Enoxaparin 40 mg Syringe SC SCH (08:45)
[2017-12-22 09:01] LABS: EOSINOPHIL 5 % (0-7); LYMPHOCYTE 3 % (20-50); MONOCYTE 11 % (0-10); NEUTROPHIL 81 % (42-75); TOTAL CELLS COUNTED 100
[2017-12-22 09:03] LABS: PLATELET ESTIMATE NORMAL (NORMAL)
--- NOTE | 2017-12-22 09:32 | CP.PCM.PN ---
Subjective - Date & Time of Evaluation Date of Evaluation: 12/22/17 Time of Evaluation: 09:15 - Subjective Subjective: Patient was seen and examined at the bedside. Denies any abdominal pain, no nausea, no vomiting, passing flatus and had a loose bowel movement today. Tolerating regular diet. Objective - Vital Signs/Intake and Output Vital Signs (last 24 hours): Temp Pulse Resp BP Pulse Ox 98.0 F 84 18 108/53 L 100 12/22/17 08:00 12/22/17 08:00 12/22/17 08:00 12/22/17 08:00 12/22/17 08:00 - Medications Medications: Current Medications Acetaminophen (Tylenol 325mg Tab) 650 mg PO Q4 PRN PRN Reason: Pain, Mild (1-3) Albuterol/Ipratropium (Duoneb 3 Mg/0.5 Mg (3 Ml) Ud) 3 ml INH RQ6 PRN PRN Reason: Shortness of Breath Aripiprazole (Abilify) 2 mg PO HS [facility] Last Admin: 12/21/17 21:35 Dose: 2 mg Aspirin (Ecotrin) 81 mg PO DAILY [facility] Last Admin: 12/22/17 08:45 Dose: 81 mg Atorvastatin Calcium (Lipitor) 20 mg PO DAILY [facility] Last Admin: 12/22/17 08:45 Dose: 20 mg Benztropine Mesylate (Cogentin) 1 mg PO BID [facility] Last Admin: 12/22/17 08:43 Dose: 1 mg Calcitriol (Rocaltrol) 0.5 mcg PO BID [facility] Last Admin: 12/22/17 08:42 Dose: 0.5 mcg Calcium Carbonate (Oscal) 1,000 mg PO TID [facility] Last Admin: 12/22/17 08:43 Dose: 1,000 mg Clonazepam (Klonopin) 0.5 mg PO DAILY PRN PRN Reason: Anxiety Last Admin: 12/21/17 01:11 Dose: 0.5 mg Dextrose (Dextrose 50% Inj) 0 ml IV STAT PRN; Protocol PRN Reason: Hypoglycemia Protocol Dextrose (Glutose 15) 0 gm PO ONCE PRN; Protocol PRN Reason: Hypoglycemia Protocol Duloxetine HCl (Cymbalta) 20 mg PO DAILY [facility] Last Admin: 12/22/17 08:45 Dose: 20 mg Enalapril Maleate (Vasotec) 2.5 mg PO DAILY [facility] Last Admin: 12/22/17 08:43 Dose: 2.5 mg Enoxaparin Sodium (Lovenox) 40 mg SC DAILY [facility]; Protocol Last Admin: 12/22/17 08:45 Dose: 40 mg Escitalopram Oxalate (Lexapro) 10 mg PO DAILY [facility] Last Admin: 12/22/17 08:44 Dose: 10 mg Famotidine (Pepcid) 20 mg PO BID [facility] Last Admin: 12/22/17 08:42 Dose: 20 mg Ferrous Sulfate (Feosol) 325 mg PO DAILY [facility] Last Admin: 12/22/17 08:44 Dose: 325 mg Glucagon (Glucagen Diagnostic Kit) 0 mg IM STAT PRN; Protocol PRN Reason: Hypoglycemia Protocol Home Med (Riociguat [Adempas]) 2 mg PO TID [facility] Last Admin: 12/22/17 08:43 Dose: 2 mg Hydrocortisone (Cortef) 10 mg PO HS [facility] Last Admin: 12/21/17 21:35 Dose: 10 mg Insulin Detemir (Levemir) 10 units SC [facility] Last Admin: 12/21/17 21:35 Dose: 10 units Insulin Human Lispro (Humalog) 0 units SC [facility]; Protocol Last Admin: 12/22/17 06:54 Dose: Not Given Ketorolac Tromethamine (Toradol) 15 mg IVP Q6 PRN PRN Reason: Pain, moderate (4-7) Levothyroxine Sodium (Synthroid) 50 mcg PO DAILY@0630 [facility] Last Admin: 12/22/17 06:54 Dose: 50 mcg Ondansetron HCl (Zofran Inj) 4 mg IVP Q6 PRN PRN Reason: Nausea/Vomiting Last Admin: 12/19/17 20:39 Dose: 4 mg Pantoprazole Sodium (Protonix Inj) 40 mg IVP DAILY [facility] Last Admin: 12/22/17 08:45 Dose: 40 mg Fluticasone/Salmeterol (Advair Diskus 250/50) 1 puff IH Q12 [facility] Last Admin: 12/22/17 08:41 Dose: 1 puff Torsemide (Demadex) 20 mg PO DAILY [facility] Last Admin: 12/22/17 08:44 Dose: 20 mg - Labs Labs: 12/22/17 04:20 12/22/17 04:20 - Constitutional Appears: Well, Non-toxic, No Acute Distress - Head Exam Head Exam: ATRAUMATIC - Eye Exam Eye Exam: EOMI, Normal appearance, PERRL Pupil Exam: NORMAL ACCOMODATION, PERRL - ENT Exam ENT Exam: Mucous Membranes Moist, Normal Exam - Neck Exam Neck Exam: Full ROM, Normal Inspection - Respiratory Exam Respiratory Exam: Rhonchi - Cardiovascular Exam Cardiovascular Exam: REGULAR RHYTHM, +S1, +S2 - GI/Abdominal Exam GI & Abdominal Exam: Soft, Normal Bowel Sounds Additional comments: NT, ND, no rebound, no guarding, well healed scars from prior surgeries - Rectal Exam Rectal Exam: Deferred - Extremities Exam Extremities Exam: Full ROM, Normal Inspection - Neurological Exam Neurological Exam: Alert, Awake, Oriented x3 - Psychiatric Exam Psychiatric exam: Normal Affect, Normal Mood - Skin Skin Exam: Dry, Intact, Normal Color, Warm
--- NOTE | 2017-12-22 10:14 | CP.PCM.PN ---
Subjective - Date & Time of Evaluation Date of Evaluation: 12/22/17 Time of Evaluation: 10:14 Objective - Vital Signs/Intake and Output Vital Signs (last 24 hours): Temp Pulse Resp BP Pulse Ox 98.0 F 84 18 108/53 L 100 12/22/17 08:00 12/22/17 08:00 12/22/17 08:00 12/22/17 08:00 12/22/17 08:00 - Medications Medications: Current Medications Acetaminophen (Tylenol 325mg Tab) 650 mg PO Q4 PRN PRN Reason: Pain, Mild (1-3) Albuterol/Ipratropium (Duoneb 3 Mg/0.5 Mg (3 Ml) Ud) 3 ml INH RQ6 PRN PRN Reason: Shortness of Breath Aripiprazole (Abilify) 2 mg PO HS [facility] Last Admin: 12/21/17 21:35 Dose: 2 mg Aspirin (Ecotrin) 81 mg PO DAILY [facility] Last Admin: 12/22/17 08:45 Dose: 81 mg Atorvastatin Calcium (Lipitor) 20 mg PO DAILY [facility] Last Admin: 12/22/17 08:45 Dose: 20 mg Benztropine Mesylate (Cogentin) 1 mg PO BID [facility] Last Admin: 12/22/17 08:43 Dose: 1 mg Calcitriol (Rocaltrol) 0.5 mcg PO BID [facility] Last Admin: 12/22/17 08:42 Dose: 0.5 mcg Calcium Carbonate (Oscal) 1,000 mg PO TID [facility] Last Admin: 12/22/17 08:43 Dose: 1,000 mg Clonazepam (Klonopin) 0.5 mg PO DAILY PRN PRN Reason: Anxiety Last Admin: 12/21/17 01:11 Dose: 0.5 mg Dextrose (Dextrose 50% Inj) 0 ml IV STAT PRN; Protocol PRN Reason: Hypoglycemia Protocol Dextrose (Glutose 15) 0 gm PO ONCE PRN; Protocol PRN Reason: Hypoglycemia Protocol Duloxetine HCl (Cymbalta) 20 mg PO DAILY [facility] Last Admin: 12/22/17 08:45 Dose: 20 mg Enalapril Maleate (Vasotec) 2.5 mg PO DAILY [facility] Last Admin: 12/22/17 08:43 Dose: 2.5 mg Enoxaparin Sodium (Lovenox) 40 mg SC DAILY [facility]; Protocol Last Admin: 12/22/17 08:45 Dose: 40 mg Escitalopram Oxalate (Lexapro) 10 mg PO DAILY [facility] Last Admin: 12/22/17 08:44 Dose: 10 mg Famotidine (Pepcid) 20 mg PO BID [facility] Last Admin: 12/22/17 08:42 Dose: 20 mg Ferrous Sulfate (Feosol) 325 mg PO DAILY [facility] Last Admin: 12/22/17 08:44 Dose: 325 mg Glucagon (Glucagen Diagnostic Kit) 0 mg IM STAT PRN; Protocol PRN Reason: Hypoglycemia Protocol Home Med (Riociguat [Adempas]) 2 mg PO TID [facility] Last Admin: 12/22/17 08:43 Dose: 2 mg Hydrocortisone (Cortef) 10 mg PO HS [facility] Last Admin: 12/21/17 21:35 Dose: 10 mg Insulin Detemir (Levemir) 10 units SC HS [facility] Last Admin: 12/21/17 21:35 Dose: 10 units Insulin Human Lispro (Humalog) 0 units SC [facility]; Protocol Last Admin: 12/22/17 06:54 Dose: Not Given Ketorolac Tromethamine (Toradol) 15 mg IVP Q6 PRN PRN Reason: Pain, moderate (4-7) Levothyroxine Sodium (Synthroid) 50 mcg PO DAILY@0630 [facility] Last Admin: 12/22/17 06:54 Dose: 50 mcg Ondansetron HCl (Zofran Inj) 4 mg IVP Q6 PRN PRN Reason: Nausea/Vomiting Last Admin: 12/19/17 20:39 Dose: 4 mg Pantoprazole Sodium (Protonix Inj) 40 mg IVP DAILY [facility] Last Admin: 12/22/17 08:45 Dose: 40 mg Fluticasone/Salmeterol (Advair Diskus 250/50) 1 puff IH Q12 [facility] Last Admin: 12/22/17 08:41 Dose: 1 puff Torsemide (Demadex) 20 mg PO DAILY [facility] Last Admin: 12/22/17 08:44 Dose: 20 mg - Labs Labs: 12/22/17 04:20 12/22/17 04:20 - Constitutional Appears: Well, Non-toxic, No Acute Distress - Head Exam Head Exam: ATRAUMATIC, NORMAL INSPECTION, NORMOCEPHALIC - Eye Exam Eye Exam: EOMI, Normal appearance, PERRL - ENT Exam ENT Exam: Mucous Membranes Moist - Respiratory Exam Respiratory Exam: Rales (B/L lower lobe), NORMAL BREATHING PATTERN - Cardiovascular Exam Cardiovascular Exam: RRR - GI/Abdominal Exam GI & Abdominal Exam: Soft (Nontender, nondistended, no guarding, no rigidity, BS normal throughout), Normal Bowel Sounds - Neurological Exam Neurological Exam: Alert, Awake, Oriented x3
[2017-12-22 12:47] VITALS: O2SAT 98
--- NOTE | 2017-12-22 13:23 | CP.PCM.DIS ---
Addendum entered and electronically signed by Allison Rg MD 12/22/17 16:56: Dr. Neumann spoke with Nephrology Dr. Yoan Petit, followed recommendations concerning previous admission for hypocalemia and hypomagnesium Original Note: <Allison Rg - Last Filed: 12/22/17 16:45> Provider - Provider Date of Admission: 12/18/17 20:48 Attending physician: David Neumann MD Primary care physician: Dr. David Neumann Consults: General Surgery- Dr. Paz Psychiatry-Dr. David Kimball Pulmonology- Dr. No Time Spent in preparation of Discharge (in minutes): 15 Diagnosis - Discharge Diagnosis (1) Partial small bowel obstruction Status: Acute Comment: -Midepigastric pain and diarrhea resolved. -Pt advanced to regular diet, tolerating oral intake. -Surg-Dr. Paz cleared pt for D/C from surgical standpoint. -Get labs done as outpt BMP, Mg and Ca levels. -Follow up with Dr. Neumann next week 12/29/17 @ 3:20pm (2) Hypocalcemia Status: Acute Comment: -Gave pt prescriptions. -Calcitriol 0.5mg PO BID #60 No refills. - Calcium carbonate 1,000mg PO TID #90. -Slow mag 2 tabs BID #120. -Follow up labs as outpt on Wednesday- BMP, MG and Ca2+. -Follow up in clinic on 12/29/17 at 3:20pm (3) Pneumonia Status: Acute Comment: -No respiratory symptoms. -CT chest reported no pneumonia. -Antibiot ics were discontinued. -No growth on blood cultures after 3 days. -Dr. No cleared from pulm standpoint (4) COPD (chronic obstructive pulmonary disease) Status: Chronic Comment: Continue Advair (5) Diabetes mellitus Status: Chronic Comment: Continue home diabetic medicaiton (6) Hypothyroidism Status: Chronic Comment: -Continue Levothyroxine (7) Sleep apnea Status: Chronic Comment: Continue CPAP HS (Home setting : ) (8) Pulmonary hypertension Status: Chronic Comment: Continue Riociguat (9) Depression Status: Chronic Comment: -Outpatient F/u by Dr Chase Miller. -Continue Escitalopram. -Continue Duloxetine. -Continue Aripiprazole (10) Multiple myeloma Status: Chronic Comment: -Mild Anemia(8.8) possibly secondary to MM. -Continue to follow up as outpt with Dr. Kimball [facility] Course - Lab Results Lab Results: Micro Results 12/18/17 20:30 Blood-Venous Blood Culture - Preliminary NO GROWTH AFTER 3 DAYS 12/18/17 18:50 Blood-Venous Blood Culture - Preliminary NO GROWTH AFTER 3 DAYS Most Recent Lab Values WBC 5.1 K/uL (4.8-10.8) 12/22/17 04:20 RBC 2.92 Mil/uL (3.80-5.20) L 12/22/17 04:20 Hgb 8.8 g/dL (12.0-16.0) L 12/22/17 04:20 Hct 26.2 % (34.0-47.0) L 12/22/17 04:20 MCV 90.0 fl (81.0-99.0) 12/22/17 04:20 MCH 30.2 pg (27.0-31.0) 12/22/17 04:20 MCHC 33.6 g/dL (33.0-37.0) 12/22/17 04:20 RDW 17.7 % (11.5-14.5) H 12/22/17 04:20 Plt Count 216 K/uL (130-400) 12/22/17 04:20 MPV 8.2 fl (7.2-11.7) 12/22/17 04:20 Neut % (Auto) 76.9 % (50.0-75.0) H 12/22/17 04:20 Lymph % (Auto) 6.1 % (20.0-40.0) L 12/22/17 04:20 Nance % (Auto) 13.6 % (0.0-10.0) H 12/22/17 04:20 Eos % (Auto) 3.1 % (0.0-4.0) 12/22/17 04:20 Baso % (Auto) 0.3 % (0.0-2.0) 12/22/17 04:20 Neut # (Auto) 3.9 K/uL (1.8-7.0) 12/22/17 04:20 Lymph # (Auto) 0.3 K/uL (1.0-4.3) L 12/22/17 04:20 Nance # (Auto) 0.7 K/uL (0.0-0.8) 12/22/17 04:20 Eos # (Auto) 0.2 K/uL (0.0-0.7) 12/22/17 04:20 Baso # (Auto) 0.0 K/uL (0.0-0.2) 12/22/17 04:20 Neutrophils % (Manual) 81 % (42-75) H 12/22/17 04:20 Lymphocytes % (Manual) 3 % (20-50) L 12/22/17 04:20 Monocytes % (Manual) 11 % (0-10) H 12/22/17 04:20 Eosinophils % (Manual) 5 % (0-7) 12/22/17 04:20 Metamyelocytes % 2 % (0-0) H 12/18/17 16:30 Platelet Estimate Normal (NORMAL) 12/22/17 04:20 Plt Clumps, EDTA Present 12/18/17 16:30 Poikilocytosis (manual Slight 12/18/17 16:30 Anisocytosis (manual) Slight 12/18/17 16:30 Ovalocytes Slight 12/18/17 16:30 pO2 24 mm/Hg (30-55) L 12/18/17 18:21 VBG pH 7.34 (7.32-7.43) 12/18/17 18:21 VBG pCO2 57 mmHg (40-60) 12/18/17 18:21 VBG HCO3 26.3 mmol/L 12/18/17 18:21 VBG Total CO2 32.5 mmol/L (22-28) H 12/18/17 18:21 VBG O2 Sat (Calc) 40.5 % (40-65) 12/18/17 18:21 VBG Base Excess 3.7 mmol/L (0.0-2.0) H 12/18/17 18:21 VBG Potassium 3.9 mmol/L (3.6-5.2) 12/18/17 18:21 Sodium 132.0 mmol/L (132-148) 12/18/17 18:21 Chloride 97.0 mmol/L (98-107) L 12/18/17 18:21 Glucose 173 mg/dL (65-105) H 12/18/17 18:21 Lactate 1.1 mmol/L (0.7-2.1) 12/18/17 18:21 FiO2 21.0 % 12/18/17 18:21 Sodium 135 mmol/l (132-148) 12/22/17 04:20 Potassium 4.5 MMOL/L (3.6-5.0) 12/22/17 04:20 Chloride 104 mmol/L (98-107) 12/22/17 04:20 Carbon Dioxide 28 mmol/L (22-30) 12/22/17 04:20 Anion Gap 8 (10-20) L 12/22/17 04:20 BUN 10 mg/dl (7-17) 12/22/17 04:20 Creatinine 0.8 mg/dl (0.7-1.2) 12/22/17 04:20 Est GFR ( Amer) > 60 12/22/17 04:20 Est GFR (Non-Af Amer) > 60 12/22/17 04:20 POC Glucose (mg/dL) 157 mg/dL (65-110) H 12/22/17 11:18 Random Glucose 145 mg/dL (65-105) H 12/22/17 04:20 Calcium 6.9 mg/dL (8.4-10.2) L 12/22/17 04:20 Ionized Calcium 3.9 mg/dL (4.80-5.60) L 12/20/17 07:30 Phosphorus 3.1 mg/dl (2.5-4.5) 12/22/17 04:20 Magnesium 1.5 MG/DL (1.6-2.3) L 12/22/17 04:20 Total Bilirubin 0.3 mg/dl (0.2-1.3) 12/20/17 04:50 AST 33 U/L (14-36) 12/20/17 04:50 ALT 33 U/L (9-52) 12/20/17 04:50 Alkaline Phosphatase 102 U/L (38-126) 12/20/17 04:50 Troponin I < 0.0120 ng/mL (0.00-0.120) 12/18/17 16:30 NT-Pro-B Natriuret Pep 415 pg/ml (0-900) 12/18/17 16:30 Total Protein 6.0 G/DL (6.3-8.2) L 12/20/17 04:50 Albumin 3.0 g/dL (3.5-5.0) L D 12/20/17 04:50 Globulin 3.0 gm/dL (2.2-3.9) 12/20/17 04:50 Albumin/Globulin Ratio 1.0 (1.0-2.1) 12/20/17 04:50 Lipase 14 U/L (23-300) L 12/18/17 16:30 25-OH Vitamin D Total 34.9 NG/ML (30.0-100.0) 12/21/17 11:20 Procalcitonin 0.06 NG/ML (0.19-0.49) L 12/19/17 06:00 Venous Blood Potassium 3.9 mmol/L (3.6-5.2) 12/18/17 18:21 - Hospital Course Hospital Course: Pt is a 71 y/o F with pmhx of multiple myeloma, pulmonary hypertension, COPD on home oxygen, HTN, DM, hypothyroid, depression, and MARQUIS on CPAP who presented to ED on 12/18 with 2 days history of increase epigastric burning like abdominal pain, nausea, 5-6 yellowish non bloody emesis, chills, wet cough associated with yellowish-green sputum, bilateral/intermittent episodes of frontal headaches, stuffy nose, multiple episodes of non bloody diarrheas, very poor appetite.KUB showed persistent mildly dilated small bowel loops at the mid & lower abdomen. CT chest,abdomen, pelvis showed mild to moderately dilated small bowel loops enhancing wall thickening suspicious for low grade SBO, no pneumonia or mass lesions in lungs, mild bronchiectasis and bilateral atelectasis. Pt was treated for partial SBO. Today pt is stable for discharge her midepigastric pain has resolved, denies nausea, vomiting, SOB, cough or chest pain, fevers or chills. Pt had 1 loose bowel movement today, good appetite and is tolerating oral intake. - Date & Time of H&P Date of H&P: 12/18/17 Time of H&P: 21:31 Discharge Exam - Head Exam Head Exam: ATRAUMATIC, NORMAL INSPECTION, NORMOCEPHALIC - Eye Exam Eye Exam: EOMI, Normal appearance, PERRL - ENT Exam ENT Exam: Mucous Membranes Moist - Respiratory Exam Respiratory Exam: Rales, NORMAL BREATHING PATTERN Additional comments: B/L Lower Lobe - Cardiovascular Exam Cardiovascular Exam: RRR, +S1, +S2 - GI/Abdominal Exam GI & Abdominal Exam: Normal Bowel Sounds Additional comments: Nontender, nondistended, no guarding, no rigidity, negative jurado sign, + BS appreciated throughout - Neurological Exam Neurological exam: Alert, Oriented x3 Discharge Plan - Discharge Medications Prescriptions: Calcitriol [Rocaltrol] 0.5 mcg PO BID 30 Days #60 sgl Calcium Carbonate [Oscal] 1,000 mg PO TID 30 Days tab Calcium Carbonate [Oscal] 1,000 mg PO TID 30 Days #180 tab metFORMIN [glucOPHAGE] 500 mg PO BID 30 Days #60 tab - Follow Up Plan Condition: GOOD Disposition: HOME/ ROUTINE Patient education suggested?: Yes Instructions: Pneumonia, Adult (DC), Acute Abdomen (Belly Pain), Adult (DC) Additional Instructions: -[facility] 12/27/17 [facility] -To have blood work 12/27/17 before your appointment [facility] el a las 3:[address] Rod. (follow up appointment at [facility] on december 29 at 3:20Pm) Referrals: David Huynh MD [Medical Doctor] - Joe Paz MD [Staff Provider] - David Neumann MD [Family Provider] - Taj No MD [Staff Provider] - <David Neumann - Last Filed: 12/23/17 00:44> Provider - Provider Date of Admission: 12/18/17 20:48 Attending physician: David Neumann MD Hospital Course - Lab Results Lab Results: Micro Results 12/18/17 20:30 Blood-Venous Blood Culture - Preliminary NO GROWTH AFTER 4 DAYS 12/18/17 18:50 Blood-Venous Blood Culture - Preliminary NO GROWTH AFTER 4 DAYS Most Recent Lab Values WBC 5.1 K/uL (4.8-10.8) 12/22/17 04:20 RBC 2.92 Mil/uL (3.80-5.20) L 12/22/17 04:20 Hgb 8.8 g/dL (12.0-16.0) L 12/22/17 04:20 Hct 26.2 % (34.0-47.0) L 12/22/17 04:20 MCV 90.0 fl (81.0-99.0) 12/22/17 04:20 MCH 30.2 pg (27.0-31.0) 12/22/17 04:20 MCHC 33.6 g/dL (33.0-37.0) 12/22/17 04:20 RDW 17.7 % (11.5-14.5) H 12/22/17 04:20 Plt Count 216 K/uL (130-400) 12/22/17 04:20 MPV 8.2 fl (7.2-11.7) 12/22/17 04:20 Neut % (Auto) 76.9 % (50.0-75.0) H 12/22/17 04:20 Lymph % (Auto) 6.1 % (20.0-40.0) L 12/22/17 04:20 Nance % (Auto) 13.6 % (0.0-10.0) H 12/22/17 04:20 Eos % (Auto) 3.1 % (0.0-4.0) 12/22/17 04:20 Baso % (Auto) 0.3 % (0.0-2.0) 12/22/17 04:20 Neut # (Auto) 3.9 K/uL (1.8-7.0) 12/22/17 04:20 Lymph # (Auto) 0.3 K/uL (1.0-4.3) L 12/22/17 04:20 Nance # (Auto) 0.7 K/uL (0.0-0.8) 12/22/17 04:20 Eos # (Auto) 0.2 K/uL (0.0-0.7) 12/22/17 04:20 Baso # (Auto) 0.0 K/uL (0.0-0.2) 12/22/17 04:20 Neutrophils % (Manual) 81 % (42-75) H 12/22/17 04:20 Lymphocytes % (Manual) 3 % (20-50) L 12/22/17 04:20 Monocytes % (Manual) 11 % (0-10) H 12/22/17 04:20 Eosinophils % (Manual) 5 % (0-7) 12/22/17 04:20 Metamyelocytes % 2 % (0-0) H 12/18/17 16:30 Platelet Estimate Normal (NORMAL) 12/22/17 04:20 Plt Clumps, EDTA Present 12/18/17 16:30 Poikilocytosis (manual Slight 12/18/17 16:30 Anisocytosis (manual) Slight 12/18/17 16:30 Ovalocytes Slight 12/18/17 16:30 pO2 24 mm/Hg (30-55) L 12/18/17 18:21 VBG pH 7.34 (7.32-7.43) 12/18/17 18:21 VBG pCO2 57 mmHg (40-60) 12/18/17 18:21 VBG HCO3 26.3 mmol/L 12/18/17 18:21 VBG Total CO2 32.5 mmol/L (22-28) H 12/18/17 18:21 VBG O2 Sat (Calc) 40.5 % (40-65) 12/18/17 18:21 VBG Base Excess 3.7 mmol/L (0.0-2.0) H 12/18/17 18:21 VBG Potassium 3.9 mmol/L (3.6-5.2) 12/18/17 18:21 Sodium 132.0 mmol/L (132-148) 12/18/17 18:21 Chloride 97.0 mmol/L (98-107) L 12/18/17 18:21 Glucose 173 mg/dL (65-105) H 12/18/17 18:21 Lactate 1.1 mmol/L (0.7-2.1) 12/18/17 18:21 FiO2 21.0 % 12/18/17 18:21 Sodium 135 mmol/l (132-148) 12/22/17 04:20 Potassium 4.5 MMOL/L (3.6-5.0) 12/22/17 04:20 Chloride 104 mmol/L (98-107) 12/22/17 04:20 Carbon Dioxide 28 mmol/L (22-30) 12/22/17 04:20 Anion Gap 8 (10-20) L 12/22/17 04:20 BUN 10 mg/dl (7-17) 12/22/17 04:20 Creatinine 0.8 mg/dl (0.7-1.2) 12/22/17 04:20 Est GFR ( Amer) > 60 12/22/17 04:20 Est GFR (Non-Af Amer) > 60 12/22/17 04:20 POC Glucose (mg/dL) 150 mg/dL (65-110) H 12/22/17 16:02 Random Glucose 145 mg/dL (65-105) H 12/22/17 04:20 Calcium 6.9 mg/dL (8.4-10.2) L 12/22/17 04:20 Ionized Calcium 3.9 mg/dL (4.80-5.60) L 12/20/17 07:30 Phosphorus 3.1 mg/dl (2.5-4.5) 12/22/17 04:20 Magnesium 1.5 MG/DL (1.6-2.3) L 12/22/17 04:20 Total Bilirubin 0.3 mg/dl (0.2-1.3) 12/20/17 04:50 AST 33 U/L (14-36) 12/20/17 04:50 ALT 33 U/L (9-52) 12/20/17 04:50 Alkaline Phosphatase 102 U/L (38-126) 12/20/17 04:50 Troponin I < 0.0120 ng/mL (0.00-0.120) 12/18/17 16:30 NT-Pro-B Natriuret Pep 415 pg/ml (0-900) 12/18/17 16:30 Total Protein 6.0 G/DL (6.3-8.2) L 12/20/17 04:50 Albumin 3.0 g/dL (3.5-5.0) L D 12/20/17 04:50 Globulin 3.0 gm/dL (2.2-3.9) 12/20/17 04:50 Albumin/Globulin Ratio 1.0 (1.0-2.1) 12/20/17 04:50 Lipase 14 U/L (23-300) L 12/18/17 16:30 25-OH Vitamin D Total 34.9 NG/ML (30.0-100.0) 12/21/17 11:20 Procalcitonin 0.06 NG/ML (0.19-0.49) L 12/19/17 06:00 PTH Intact Whole Molec 154 pg/mL (14-64) H 12/21/17 11:20 Venous Blood Potassium 3.9 mmol/L (3.6-5.2) 12/18/17 18:21 Ur L.pneumophila Ag Negative (NEGATIVE) 12/22/17 14:00
[2017-12-22 16:01] VITALS: BP 126/68; PULSE 95; RESP 20; TEMP 98.1
== END 2017-12-22 17:25 | disposition home health service (06) | DRG 389 ==
LOC: H.ER 15:02 → H.ERHOLD 20:48 → H.TEL 23:12
PROVIDERS: ADMIT Family Medicine; ATTEND Family Medicine
DX: K56.600 Partial intestinal obstruction, unspecified as to cause (principal); C90.00 Multiple myeloma not having achieved remission; Z99.81 Dependence on supplemental oxygen; G47.33 Obstructive sleep apnea (adult) (pediatric); E83.51 Hypocalcemia; I27.20 Pulmonary hypertension, unspecified; E11.9 Type 2 diabetes mellitus without complications; Z23 Encounter for immunization; M06.9 Rheumatoid arthritis, unspecified; J43.9 Emphysema, unspecified; M79.7 Fibromyalgia; E03.9 Hypothyroidism, unspecified; G20 Parkinson's disease; Z86.711 Personal history of pulmonary embolism; Z86.718 Personal history of other venous thrombosis and embolism; I25.10 Atherosclerotic heart disease of native coronary artery without angina pectoris; F32.9 Major depressive disorder, single episode, unspecified; E78.00 Pure hypercholesterolemia, unspecified; E78.5 Hyperlipidemia, unspecified; F41.9 Anxiety disorder, unspecified; Z88.6 Allergy status to analgesic agent; M19.90 Unspecified osteoarthritis, unspecified site; E66.9 Obesity, unspecified; Z68.37 Body mass index [BMI] 37.0-37.9, adult; D63.0 Anemia in neoplastic disease; I45.81 Long QT syndrome; Z99.3 Dependence on wheelchair; I10 Essential (primary) hypertension

== ENCOUNTER 2018-01-25 08:38 | Inpatient (IN) | payer MEDICARE, OTHER ==
[2018-01-25 08:38] VITALS: BMI 36.6
[2018-01-25] MEDS ORDERED: Sodium Chloride 0.9% 500 ML IV STA (09:31)
--- NOTE | 2018-01-25 09:54 | ED PDOC ---
Lower Extremity Pain/Injury Time Seen by Provider: 01/25/18 08:56 Chief Complaint (Nursing): Abnormal Labs Chief Complaint (Provider): abnormal labs and left leg swelling and pain History Per: Patient History/Exam Limitations: no limitations Onset/Duration Of Symptoms: Days (x2 weeks) Current Symptoms Are (Timing): Still Present Additional Complaint(s): Dorie Perkins is a 72 year old female, with a past medical history of asthma, diabetes, HTN, hypercholesterolemia and multiple myeloma CA, who presents to the emergency department complaining of left leg pain and swelling onset for x2 weeks. Patient saw her PMD yesterday who told her she had low magnesium and a dvised her to come to ED for evaluation of redness and swelling to left leg. Patient denies any long distance travel, chest pain, shortness of breath, numbness or tingling, weakness, nausea, vomit, diarrhea, abdominal pain, dizziness or headache. Patient is not taking any hormones and reports having chemo on Wednesday. No further medical complaints. PMD: David Neumann Past Medical History Reviewed: Historical Data, Nursing Documentation, Vital Signs - Medical History PMH: Anemia, Anxiety, Arthritis, Asthma, CAD, CHF, COPD, Depression, Diabetes, Deep Vein Thrombosis, Emphysema, Fibromyalgia, Fractures, GERD, HTN, Hypercholesterolemia, Hypothyroidism, Migraine, Parkinson's Disease, Pneumonia, Pulmonary Embolism, Rheumatoid Arthritis, Sleep Apnea Denies: HIV, Chronic Kidney Disease Other PMH: multiple myeloma - Surgical History Surgical History: Cholecystectomy, Endoscopy, Tonsillectomy - Family History Family History: States: Unknown Family Hx, Diabetes - Home Medications Home Medications: Ambulatory Orders Medication Instructions Recorded Aspirin [Ecotrin] 81 mg PO DAILY 03/05/17 Enalapril Maleate [Vasotec] 2.5 mg PO DAILY 03/05/17 clonazePAM [Klonopin] 0.5 mg PO DAILY PRN 03/05/17 ARIPiprazole [Abilify] 2 mg PO HS 05/11/17 Hydrocortisone [Cortef] 10 mg PO HS 05/11/17 Omeprazole 20 mg PO DAILY 05/11/17 Riociguat [Adempas] 2 mg PO TID 11/17/17 Ferrous Sulfate [Feosol] 325 mg PO DAILY tab 11/22/17 Fluticasone/Salmeterol 250/50 1 puff IH Q12 puff 11/22/17 [Advair Diskus 250/50] Atorvastatin [Lipitor] 20 mg PO DAILY 12/18/17 Benztropine [Cogentin] 1 mg PO BID 12/18/17 Bortezomib [Velcade] 3.5 mg IM QWK 12/18/17 Duloxetine HCl 20 mg PO DAILY 12/18/17 Escitalopram [Lexapro] 10 mg PO DAILY 12/18/17 Insulin Aspart, Recombinant 5 units SC TID 12/18/17 [Novolog] Ranitidine HCl [Zantac] 150 mg PO BID 12/18/17 Albuterol/Ipratropium [Duoneb 3 3 ml INH RQ6 PRN neb 12/22/17 mg/0.5 mg (3 ml) UD] Calcitriol [Rocaltrol] 0.5 mcg PO BID 30 Days #60 sgl 12/22/17 Calcium Carbonate [Oscal] 1,000 mg PO TID 30 Days tab 12/22/17 Calcium Carbonate [Oscal] 1,000 mg PO TID 30 Days #180 tab 12/22/17 Insulin Detemir [Levemir] 10 units SC HS vial 12/22/17 Levothyroxine [Synthroid] 50 mcg PO DAILY@0630 tab 12/22/17 Pantoprazole [Protonix Inj] 40 mg IVP DAILY vial 12/22/17 Torsemide [Demadex] 20 mg PO DAILY tab 12/22/17 metFORMIN [glucOPHAGE] 500 mg PO BID 30 Days #60 tab 12/22/17 - Allergies Allergies/Adverse Reactions: Allergies Allergy/AdvReac Type Severity Reaction Status Date / Time codeine AdvReac syncope, Verified 11/17/17 08:57 diaphoresis Review of Systems ROS Statement: Except As Marked, All Systems Reviewed And Found Negative Cardiovascular: Negative for: Chest Pain Respiratory: Negative for: Shortness of Breath Gastrointestinal: Negative for: Nausea, Vomiting, Abdominal Pain, Diarrhea Musculoskeletal: Positive for: Leg Pain (redness and swelling) Neurological: Negative for: Weakness, Numbness (tingling), Headache, Dizziness Physical Exam - Reviewed Nursing Documentation Reviewed: Yes Vital Signs Reviewed: Yes - Physical Exam Appears: Positive for: No Acute Distress Head Exam: Positive for: ATRAUMATIC, NORMAL INSPECTION, NORMOCEPHALIC Skin: Positive for: Normal Color, Warm, Dry Eye Exam: Positive for: Normal appearance, EOMI, PERRL Neck: Positive for: Normal, Painless ROM, Supple Cardiovascular/Chest: Positive for: Regular Rate, Rhythm. Negative for: Murmur Respiratory: Positive for: Normal Breath Sounds. Negative for: Respiratory Distress Gastrointestinal/Abdominal: Positive for: Normal Exam, Soft. Negative for: Tenderness, Guarding, Rebound Back: Positive for: Normal Inspection. Negative for: L CVA Tenderness, R CVA Tenderness, Vertebral Tenderness Extremity: Positive for: Normal ROM (lower extremities), Calf Tenderness (left leg), Swelling (2+ pitting edema and erythema to left lower leg. Positive swelling from the knee down), Other (2+ DP pulse bilaterally). Negative for: Deformity Neurologic/Psych: Positive for: Alert, Oriented. Negative for: Motor/Sensory Deficits - Laboratory Results Result Diagrams: 01/25/18 09:55 01/25/18 09:55 Interpretation Of Abn Labs: 0.9 mag - CT Scan/US ct and us Other Rad Studies (CT/US): Read By Radiologist Other Rad Interpretation: no acute - Progress ED Course And Treament: 1453: Spoke with [facility] resident. Will admit tele obs. Will need monitoring for low mag. Medical Decision Making Medical Decision Making: Time: 08:56 Initial Impression: Abnormal labs and Leg swelling Initial Plan: --B-Type Natriuretic Peptide --CMP --Magnesium --Phosphorus --Troponin I --CBC w/ differential --PTT --PT --Sodium Chloride 500 ml IV 100 mls/hr --Tylenol 325 mg tab 650 mg PO --Duplex Lower Extrm Vein Bilat [US] --Reevaluation Scribe Attestation: Documented by Jesse Boothe, acting as a scribe for Andreas Perez MD. Provider Scribe Attestation: All medical record entries made by the Scribe were at my direction and personally dictated by me. I have reviewed the chart and agree that the record accurately reflects my personal performance of the history, physical exam, medical decision making, and the department course for this patient. I have also personally directed, reviewed, and agree with the discharge instructions and disposition. Disposition - Clinical Impression Clinical Impression: Hypomagnesemia, Leg edema - Patient ED Disposition Is Patient to be Admitted: Yes Counseled Patient/Family Regarding: Studies Performed, Diagnosis - Disposition Disposition Time: 14:54 Condition: FAIR - Pt Status Changed To: Hospital Disposition Of: Observation - POA Present On Arrival: None
[2018-01-25 10:06] LABS: BASO % 0.3 % (0.0-2.0); EOS # 0.1 K/uL (0.0-0.7); EOS % 1.7 % (0.0-4.0); HEMOGLOBIN 10.3 g/dL (12.0-16.0); LYMPH # 0.5 K/uL (1.0-4.3); LYMPH % 12.1 % (20.0-40.0); MEAN CELL VOLUME 90.1 fl (81.0-99.0); MEAN CORPUSCULAR HGB CONC 32.2 g/dL (33.0-37.0); MEAN PLATELET VOLUME 8.2 fl (7.2-11.7); MONO # 0.8 K/uL (0.0-0.8); NEUT % 67.9 % (50.0-75.0); NRBC % 0.1 % (0.0-0.0); RBC 3.57 Mil/uL (3.80-5.20); RED CELL DISTRIBUTION WIDTH 17.7 % (11.5-14.5); WHITE BLOOD COUNT 4.4 K/uL (4.8-10.8)
[2018-01-25 10:09] LABS: PROTHROMBIN TIME 11.5 Seconds (9.8-13.1)
[2018-01-25 10:12] LABS: PARTIAL THROMBOPLASTIN TIME 33.5 Seconds (25.6-37.1)
[2018-01-25 10:25] LABS: B-TYPE NATRIURETIC PEPTIDE 585 pg/ml (0-900)
[2018-01-25 10:44] LABS: ALB/GLOB RATIO 1.3 (1.0-2.1); ALT/SGPT 28 U/L (9-52); AST/SGOT 29 U/L (14-36); BLOOD UREA NITROGEN 26 mg/dl (7-17); CALCIUM 8.9 mg/dL (8.4-10.2); GFR NON-AFRICAN AMERICAN 55
[2018-01-25] MEDS ORDERED: Magnesium Sulfate 2 gm/50 ml 2 GM/50 ML BAG IVPB ONE ×2 (12:01→14:59)
--- NOTE | 2018-01-25 12:39 | US ---
Date of service: 01/25/2018 PROCEDURE: Bilateral lower extremity venous duplex Doppler. HISTORY: r/o dvt COMPARISON: None available. TECHNIQUE: Bilateral common femoral, superficial femoral, popliteal and posterior tibial veins were evaluated. Flow was assessed with color Doppler, compressibility, assessment of phasic flow and augmentation response. There is limited visualization of the left posterior tibial vein. FINDINGS: COMMON FEMORAL VEIN: Right CFV: Unremarkable. Left CFV: Unremarkable. SUPERFICIAL FEMORAL VEIN: Right SFV: Unremarkable. Left SFV: Unremarkable. POPLITEAL VEIN: Right Popliteal: Unremarkable. Left Popliteal: Unremarkable. POSTERIOR TIBIAL VEIN: Right PTV: Unremarkable. Left PTV: Unremarkable. OTHER FINDINGS: None. IMPRESSION: No evidence of deep venous thrombosis.
--- NOTE | 2018-01-25 14:43 | CT ---
Date of service: 01/25/2018 PROCEDURE: CT Abdomen and Pelvis with contrast HISTORY: eval for high dvt; in pelvis COMPARISON: 12/18/2017 TECHNIQUE: Contrast dose: 99 cc Omnipaque 300 Radiation dose: Total exam DLP = 948.09 mGy-cm. This CT exam was performed using one or more of the following dose reduction techniques: Automated exposure control, adjustment of the mA and/or kV according to patient size, and/or use of iterative reconstruction technique. FINDINGS: LOWER THORAX: Unremarkable. LIVER: Nodular calcification of the dome of the right hepatic lobe. Possibly granulomatous. Normal size, contour and attenuation. No mass. No biliary dilatation. GALLBLADDER AND BILE DUCTS: Gallbladder not visualized. Question raised of possible prior cholecystectomy. PANCREAS: Unremarkable. No gross lesion or ductal dilatation. SPLEEN: Unremarkable. ADRENALS: Unremarkable. No mass. KIDNEYS AND URETERS: Unremarkable. No hydronephrosis. No solid mass. VASCULATURE: Unremarkable. No aortic aneurysm. There is atherosclerotic calcification of the abdominal aorta. There is only moderate enhancement of the iliac veins and inferior vena cava. There is no evidence of intraluminal thrombus in the common femoral, external iliac, common iliac veins or inferior vena cava. A vena caval filter is noted. BOWEL: Unremarkable. No obstruction. No gross mural thickening. APPENDIX: Not identified. No secondary findings. PERITONEUM: No ascites. No pneumoperitoneum. There are 2 small umbilical hernias both containing only mesenteric fat and no bowel. LYMPH NODES: Unremarkable. No enlarged lymph nodes. BLADDER: Unremarkable. REPRODUCTIVE: Normal postmenopausal uterus BONES: Stable moderate T12 vertebral compression fracture. No acute fracture identified. OTHER FINDINGS: None. IMPRESSION: No evidence of venous thrombosis in the inferior vena cava or iliac veins. Vena caval filter noted. Additional minor findings as above.
[2018-01-25] MEDS ORDERED: Magnesium Sulfate 2 gm/50 ml 2 GM/50 ML BAG ONE ×2 (15:06→15:53)
[2018-01-25] MEDS ORDERED: Enoxaparin 40 mg Syringe SC SCH (15:45)
[2018-01-25] MEDS ORDERED: Albuterol-Ipratrop 3 mg / 0.5 (3 ml) UD INH PRN ×2 (15:47→20:06)
--- NOTE | 2018-01-25 16:10 | CP.PCM.HP ---
History of Present Illness - History of Present Illness History of Present Illness: HPI: Pt is a 71 y/o female with pmhx significant for Multiple Myeloma, hx of multiple fx, IDDM, HTN, Pulmonary HTN, COPD on home O2 (3L NC) and CPAP, hx of PE s/p IVC filter (2014), GERD, Anxiety and depression presents to ED after her PMD called her for abnormal lab test and LE swelling. Patient was seen in office on 01/24 for routine follow up and lab tests acquired that day resulted with Magnesium level of 0.8. Notably, pt has had low magnesium levels in the past and take Magnesium Oxide 400mg daily which she reports being complaint with. She denies n/v, lightheadedness, dizziness, numbness tingling. She also complaints of on going left lower extremity swelling associated with pain and redness that she has noticed for the past 3-4 weeks and has failed to improve. She reports that she has been immobile for long periods since the swelling started. She denies any trauma/falls, fever/chills. She has been able to bear weight partially on her left leg. ROS: + chronic dry cough, + 1 watery BM. Otherwise remainder of ROS negative as it pertains to HPI. PMD: Dr David Neumann Psych: Dr Chase Miller Livestock Trucker: Dr Cisneros Oncology: Dr Vilchis PMH: Multiple M, T2DM, HTN, COPD on home Oxigen at 2L NC and also uses CPAP at home, Hypothyroidsm, GERD, hx of PE s/p IVC filter 2014. FMH: Father had Lung CA and HTN, Mother of a heart attack. Allergy: Codeine. SURG: Ankle fracture repair, Cholecystectomy, Breast cyst surgery x2, tonsillectomy. SOC: Denies Tobacco/ETOH/Rec Drug use. Next of Kin: Daughter Megha [phone] Code status: Full code. ED Course: -Vitals: HR 96, BP 112/55, O2 Sat 98 on 3L NC -CBC: 4.4>10.3/32.2<243 -BMP: 134/4.4/99/24/26/1.0 -AST/ALT: 29/28 -Troponin 0.01 -ProBnP: 585 -Magnesium 0.9 -EKG: Prolonged QT (seen in prior ECG's), no acute changes from prior EKG -Left Duplex US: No evidence of DVT -Abdominal CT: No evidence of venous thrombosis of Inferior Vena Cava or Iliac Veins. IVF Filter noted Interventions: -S/P Magnesium 2gm 50cc -S/P Magnesium 2gm 50cc -S/P NaCl 500cc on 100c/ml Present on Admission - Present on Admission Any Indicators Present on Admission: No History of DVT/PE: Yes Past Patient History - Infectious Disease Hx of Infectious Diseases: None - Tetanus Immunizations Tetanus Immunization: Unknown - Past Medical History & Family History Past Medical History?: Yes - Past Social History Smoking Status: Never Smoked - CARDIAC Hx Congestive Heart Failure: Yes Hx Hypercholesterolemia: Yes Hx Hypertension: Yes - PULMONARY Hx Asthma: Yes Hx Chronic Obstructive Pulmonary Disease (COPD): Yes Hx Emphysema: Yes Hx Pneumonia: Yes Hx Pulmonary Embolism: Yes Hx Sleep Apnea: Yes - NEUROLOGICAL Hx Migraine: Yes Hx Parkinson's Disease: Yes - HEENT Hx Deafness: Yes - RENAL Hx Chronic Kidney Disease: No - ENDOCRINE/METABOLIC Hx Hypothyroidism: Yes - HEMATOLOGICAL/ONCOLOGICAL Hx Anemia: Yes Hx Human Immunodeficiency Virus (HIV): No - INTEGUMENTARY Hx Dermatological Problems: No - MUSCULOSKELETAL/RHEUMATOLOGICAL Hx Arthritis: Yes Hx Fractures: Yes Hx Rheumatoid Arthritis: Yes - GASTROINTESTINAL Hx Gastrointestinal Disorders: No - GENITOURINARY/GYNECOLOGICAL Hx Genitourinary Disorders: Yes Hx Incontinence: Yes - PSYCHIATRIC Hx Anxiety: Yes Hx Depression: Yes - SURGICAL HISTORY Hx Cholecystectomy: Yes Hx Tonsillectomy: Yes - ANESTHESIA Hx Anesthesia: Yes Hx Anesthesia Reactions: Yes (Resp. Distress) Hx Malignant Hyperthermia: No Meds Allergies/Adverse Reactions: Allergies Allergy/AdvReac Type Severity Reaction Status Date / Time codeine AdvReac syncope, Verified 11/17/17 08:57 diaphoresis Physical Exam - Constitutional Appears: Well, Non-toxic - Head Exam Head Exam: NORMAL INSPECTION - Eye Exam Eye Exam: Normal appearance. absent: Nystagmus, Scleral icterus - ENT Exam ENT Exam: Mucous Membranes Moist - Neck Exam Neck exam: Positive for: Normal Inspection (No JVD) - Respiratory Exam Respiratory Exam: Clear to Auscultation Bilateral. absent: Rales, Rhonchi, Wheezes, Stridor - Cardiovascular Exam Cardiovascular Exam: REGULAR RHYTHM, +S1, +S2. absent: Irregular Rhythm, Systolic Murmur - GI/Abdominal Exam GI & Abdominal Exam: Normal Bowel Sounds, Soft. absent: Tenderness - Extremities Exam Extremities exam: Positive for: calf tenderness, full ROM, normal capillary refill, pedal pulses present. Negative for: joint swelling, pedal edema Additional comments: Left lower extremity- swelling and mild erythema up to mid thigh, no knee effusion,+ diffuse tenderness, homans negative, sensory and motor in tact, full ROM, pain illicited with weight bearing, no skin breaks or ulcers/wounds. Good distal pulses, warm feet, good capillary refill - Neurological Exam Neurological exam: Alert, Oriented x3 - Psychiatric Exam Psychiatric exam: Normal Affect - Skin Skin Exam: Normal Color Results - Labs Result Diagrams: 01/25/18 09:55 01/25/18 09:55 Labs: Laboratory Results - last 24 hr 01/25/18 01/25/18 01/25/18 09:55 09:55 09:55 WBC 4.4 L RBC 3.57 L Hgb 10.3 L Hct 32.2 L MCV 90.1 MCH 29.0 MCHC 32.2 L RDW 17.7 H Plt Count 243 MPV 8.2 Neut % (Auto) 67.9 Lymph % (Auto) 12.1 L [place] % (Auto) 18.0 H Eos % (Auto) 1.7 Baso % (Auto) 0.3 Neut # (Auto) 3.0 Lymph # (Auto) 0.5 L [place] # (Auto) 0.8 Eos # (Auto) 0.1 Baso # (Auto) 0.0 PT 11.5 INR 1.0 APTT 33.5 Sodium 134 Potassium 4.4 Chloride 99 Carbon Dioxide 24 Anion Gap 15 BUN 26 H Creatinine 1.0 Est GFR ( Amer) > 60 Est GFR (Non-Af Amer) 55 Random Glucose 107 H Calcium 8.9 Phosphorus 4.7 H Magnesium 0.9 L* Total Bilirubin 0.4 AST 29 ALT 28 Alkaline Phosphatase 65 Troponin I 0.0140 NT-Pro-B Natriuret Pep 585 Total Protein 7.1 Albumin 4.0 Globulin 3.1 Albumin/Globulin Ratio 1.3 Assessment & Plan - Assessment and Plan (Free Text) Assessment: Pt is a 71 y/o female with pmhx significant for Multiple Myeloma, hx of multiple fx, IDDM, HTN, Pulmonary HTN, COPD on home O2 (3L NC) and CPAP, hx of PE s/p IVC filter (2014), GERD, Anxiety and depression admitted for Hypomagnesium of 0.8 and Unilateral LE swelling (Left). #Hypomagnesium -Acute on Chronic. May be secondary to large watery BM in setting of chronic hx of low magnesium (chemotherapy side effect). -S/P 2gm of MgSO4 x2 -Repeat Lytes 2 hours after last dose (7pm) -Consider PO Magnesium Oxide-will hold now considering pt had large loose BM yesterday -Pt has hx of torsades. No significant EKG findings. Will repeat EKG in the am -Monitor BMP, Mag, And Phos closely #LE Swelling -Concerning features of thrombosis given hx of DVT. Alternative explanation may be venous insufficiency -LE Venous Duplex-- no thrombosis of poplitial, superficial or common femoral veins. -Abdomen CT negative for thombosis of Iliac, Inferior vena cava #DVT ppx -Lovenox 40mg SQ daily #Diet Diabetic Tele
[2018-01-25] MEDS ORDERED: Dextrose 50% SYRINGE Inj (50 ml) IV PRN ×2 (16:11→17:49)
[2018-01-25] MEDS ORDERED: Glucagon Recombinant 1 mg Inj IM PRN ×2 (16:11→17:49)
[2018-01-25] MEDS ORDERED: Insulin Regular 100 units/ml SC SCH (16:30)
[2018-01-25] MEDS: Enoxaparin 40 mg Syringe SC SCH (17:36)
[2018-01-25] MEDS ORDERED: Clindamycin 600mg/50ml D5W 600 MG/50 ML VIAL IVPB SCH (18:30)
--- NOTE | 2018-01-25 18:38 | CARD ---
APPROVED REPORT Date of service: 01/25/2018 EKG Measurement Heart [id number] <Conclusion> Normal sinus rhythm Possible Left atrial enlargement Prolonged QT Abnormal ECG
[2018-01-25] MEDS: Clindamycin 600 MG in Sodium Chloride 0.9% 100 ML IVPB SCH (20:52)
[2018-01-25 21:08] LABS: CALCIUM 8.6 mg/dL (8.4-10.2)
[2018-01-25] MEDS: Magnesium Oxide 400 mg Tab UD PO SCH (21:16)
[2018-01-25] MEDS: Insulin Regular 100 units/ml SC SCH (22:54)
[2018-01-26] MEDS: Clindamycin 600 MG in Sodium Chloride 0.9% 100 ML IVPB SCH ×2 (00:11→11:35)
[2018-01-26 05:31] LABS: HEMOGLOBIN 10.2 g/dL (12.0-16.0); MEAN CORPUSCULAR HEMOGLOBIN 28.8 pg (27.0-31.0); MEAN CORPUSCULAR HGB CONC 32.3 g/dL (33.0-37.0); RBC 3.56 Mil/uL (3.80-5.20); RED CELL DISTRIBUTION WIDTH 17.9 % (11.5-14.5)
[2018-01-26 05:46] LABS: BLOOD UREA NITROGEN 20 mg/dl (7-17); CALCIUM 8.7 mg/dL (8.4-10.2); GFR NON-AFRICAN AMERICAN > 60
[2018-01-26] MEDS ORDERED: Levothyroxine 50 MCG TAB PO SCH (06:30)
[2018-01-26] MEDS: Levothyroxine 50 MCG TAB PO SCH (06:36)
[2018-01-26] MEDS: Insulin Regular 100 units/ml SC SCH ×4 (08:32→21:54)
[2018-01-26] MEDS ORDERED: Magnesium Oxide 400 mg Tab UD PO SCH (09:00)
[2018-01-26] MEDS ORDERED: Cholecalciferol 1,000 INTLU TAB PO SCH (09:00)
[2018-01-26] MEDS: Enoxaparin 40 mg Syringe SC SCH (09:47)
[2018-01-26] MEDS: Magnesium Oxide 400 mg Tab UD PO SCH ×2 (09:49→21:59)
[2018-01-26] MEDS: Cholecalciferol 1,000 INTLU TAB PO SCH (09:50)
--- NOTE | 2018-01-26 12:32 | CP.PCM.PN ---
Subjective - Date & Time of Evaluation Date of Evaluation: 01/26/18 Time of Evaluation: 08:00 - Subjective Subjective: Pt seen and examined this morning with Dr. Neumann at bedside. Seen sitting up in bed, eating breakfast. In good spirits. States left leg pain and swelling has improved. She has still been experiencing pain when placing weight on her leg. She denies fever/chills. Objective - Vital Signs/Intake and Output Vital Signs (last 24 hours): Temp Pulse Resp BP Pulse Ox 97.4 F L 95 H 18 121/73 95 01/26/18 11:57 01/26/18 11:57 01/26/18 11:57 01/26/18 11:57 01/26/18 11:57 - Medications Medications: Current Medications Acetaminophen (Tylenol 325mg Tab) 650 mg PO Q6 PRN PRN Reason: Pain, Mild (1-3) Last Admin: 01/25/18 21:23 Dose: 650 mg Albuterol/Ipratropium (Duoneb 3 Mg/0.5 Mg (3 Ml) Ud) 3 ml INH RQ6 PRN PRN Reason: Wheezing Aripiprazole (Abilify) 2 mg PO HS [facility] Last Admin: 01/25/18 21:17 Dose: 2 mg Aspirin (Ecotrin) 81 mg PO DAILY [facility] Last Admin: 01/26/18 09:45 Dose: 81 mg Atorvastatin Calcium (Lipitor) 20 mg PO DAILY [facility] Last Admin: 01/26/18 09:47 Dose: 20 mg Benztropine Mesylate (Cogentin) 1 mg PO Q12 [facility] Last Admin: 01/26/18 09:44 Dose: 1 mg Buspirone HCl (Buspar) 10 mg PO Q12 [facility] Last Admin: 01/26/18 09:43 Dose: 10 mg Calcitriol (Rocaltrol) 0.5 mcg PO Q12 [facility] Last Admin: 01/26/18 09:49 Dose: 0.5 mcg Cholecalciferol (Vitamin D) 1,000 intlu PO DAILY [facility] Last Admin: 01/26/18 09:50 Dose: 1,000 intlu Dextrose (Dextrose 50% Inj) 0 ml IV STAT PRN; Protocol PRN Reason: Hypoglycemia Protocol Dextrose (Glutose 15) 0 gm PO ONCE PRN; Protocol PRN Reason: Hypoglycemia Protocol Duloxetine HCl (Cymbalta) 20 mg PO Q12 [facility] Last Admin: 01/26/18 09:44 Dose: 20 mg Enalapril Maleate (Vasotec) 2.5 mg PO DAILY [facility] Last Admin: 01/26/18 09:50 Dose: 2.5 mg Enoxaparin Sodium (Lovenox) 40 mg SC DAILY [facility]; Protocol Last Admin: 01/26/18 09:47 Dose: 40 mg Escitalopram Oxalate (Lexapro) 10 mg PO DAILY [facility] Last Admin: 01/26/18 09:46 Dose: 10 mg Ferrous Sulfate (Feosol) 325 mg PO DAILY [facility] Last Admin: 01/26/18 09:46 Dose: 325 mg Glucagon (Glucagen Diagnostic Kit) 0 mg IM STAT PRN; Protocol PRN Reason: Hypoglycemia Protocol Hydrocortisone (Cortef) 10 mg PO HS [facility] Last Admin: 01/25/18 21:17 Dose: 10 mg Ibuprofen (Motrin Tab) 600 mg PO Q8 PRN PRN Reason: Pain, moderate (4-7) Last Admin: 01/26/18 12:26 Dose: 600 mg Insulin Human Regular (Humulin R) 0 units SC [facility]; Protocol Last Admin: 01/26/18 12:07 Dose: Not Given Levothyroxine Sodium (Synthroid) 50 mcg PO DAILY@0630 [facility] Last Admin: 01/26/18 06:36 Dose: 50 mcg Magnesium Oxide (Mag-Ox) 400 mg PO Q12 [facility] Last Admin: 01/26/18 09:49 Dose: 400 mg Torsemide (Demadex) 20 mg PO DAILY [facility] Last Admin: 01/26/18 09:44 Dose: 20 mg - Labs Labs: 01/26/18 04:41 01/26/18 04:41 PT 11.5 Seconds (9.8-13.1) 01/25/18 09:55 INR 1.0 01/25/18 09:55 APTT 33.5 Seconds (25.6-37.1) 01/25/18 09:55 - Constitutional Appears: Well, Non-toxic, No Acute Distress - Head Exam Head Exam: NORMAL INSPECTION - Eye Exam Eye Exam: Normal appearance - ENT Exam ENT Exam: Mucous Membranes Moist - Neck Exam Neck Exam: Full ROM - Respiratory Exam Respiratory Exam: Clear to Ausculation Bilateral. absent: Rales, Wheezes - Cardiovascular Exam Cardiovascular Exam: REGULAR RHYTHM, +S1, +S2. absent: Murmur - GI/Abdominal Exam GI & Abdominal Exam: Soft, Normal Bowel Sounds. absent: Distended, Tenderness - Extremities Exam Additional comments: Left lower extremity- swelling and mild erythema up to mid thigh (improved since yesterday), no knee effusion,+ diffuse tenderness, homans negative, sensory and motor in tact, full ROM, pain illicited with weight bearing, no skin breaks or ulcers/wounds. Good distal pulses, warm feet, good capillary refill - Neurological Exam Neurological Exam: Alert, Awake. absent: Oriented x3 - Psychiatric Exam Psychiatric exam: Normal Affect - Skin Skin Exam: Normal Color Assessment and Plan - Assessment and Plan (Free Text) Assessment: Pt is a 71 y/o female with pmhx significant for Multiple Myeloma, hx of multiple fx, IDDM, HTN, Pulmonary HTN, COPD on home O2 (3L NC) and CPAP, hx of PE s/p IVC filter (2014), GERD, Anxiety and depression admitted for Hypomagnesium of 0.8 and Unilateral LE swelling (Left). #Hypomagnesium -Improved, Magnesium 1.6 today -Acute on Chronic. May be secondary to large watery BM in setting of chronic hx of low magnesium (chemotherapy side effect). -S/P 2gm of MgSO4 x2 -PO magnesium Oxide BID -Pt has hx of torsades. No significant EKG findings. Repeat EKG- no changes from prior -Monitor BMP, Mag, And Phos closely #LE Swelling -DVT ruled out. Likely Cellulitis as edema and erythema has improved after rec eiving IV Antibiotics -LE Venous Duplex-- no thrombosis of poplitial, superficial or common femoral veins. -Abdomen CT negative for thombosis of Iliac, Inferior vena cava -C/W Clindamycin IV Q8 -PT for gait stability and strengthening -Keep leg elevated #Pulmonary HTN -Will continue Adempas, non formulary, will ask pt's family to bring in medication -No Cardiac symptoms #COPD -Stable -On O2 3 L -CPAP at night #DM -Medium Sliding Scale -Hypoglycemic protocol #DVT ppx -Lovenox 40mg SQ daily #Diet Diabetic Tele
[2018-01-26 14:08] LABS: BLOOD UREA NITROGEN 19 mg/dl (7-17); CALCIUM 8.9 mg/dL (8.4-10.2); GFR NON-AFRICAN AMERICAN > 60
[2018-01-26] MEDS ORDERED: RIOCIGUAT 2 MG PO SCH (17:00)
--- NOTE | 2018-01-26 17:01 | CARD ---
APPROVED REPORT Date of service: 01/26/2018 EKG Measurement Heart [id number] ND [id number] <Conclusion> Normal sinus rhythm Possible Left atrial enlargement Low voltage QRS Borderline ECG
[2018-01-27 06:29] LABS: BLOOD UREA NITROGEN 20 mg/dl (7-17); CALCIUM 9.3 mg/dL (8.4-10.2); GFR NON-AFRICAN AMERICAN 55
[2018-01-27] MEDS: Levothyroxine 50 MCG TAB PO SCH (06:47)
[2018-01-27] MEDS: Insulin Regular 100 units/ml SC SCH ×3 (07:51→21:38)
[2018-01-27] MEDS ORDERED: Sod Polystyrene Sulf 15 gm/60 ml Susp PO ONE (08:34)
[2018-01-27] MEDS ORDERED: Magnesium Sulfate 2 gm/50 ml 2 GM/50 ML BAG IVPB ONE (08:35)
[2018-01-27] MEDS: Enoxaparin 40 mg Syringe SC SCH (08:41)
[2018-01-27] MEDS: Magnesium Oxide 400 mg Tab UD PO SCH ×2 (08:42→20:05)
[2018-01-27] MEDS: Cholecalciferol 1,000 INTLU TAB PO SCH (08:42)
[2018-01-27] MEDS ORDERED: Clindamycin 600mg/50ml D5W 300 MG/25 ML VIAL IVPB SCH (09:00)
[2018-01-27] MEDS ORDERED: Clindamycin 600mg/50ml D5W 600 MG/50 ML VIAL IVPB SCH (09:15)
[2018-01-27] MEDS: Clindamycin 600mg/50ml D5W 600 MG/50 ML VIAL IVPB SCH ×2 (10:57→16:45)
[2018-01-27 13:55] LABS: BLOOD UREA NITROGEN 19 mg/dl (7-17); CALCIUM 9.7 mg/dL (8.4-10.2); GFR NON-AFRICAN AMERICAN > 60
--- NOTE | 2018-01-27 16:26 | CP.PCM.PN ---
Subjective - Date & Time of Evaluation Date of Evaluation: 01/27/18 Time of Evaluation: 09:00 - Subjective Subjective: Pt seen and examined this morning. Seen walking from bathroom. Reports that right leg pain and swelling has improved significantly as well as the pain. Denies cough, sob, cp. Magnesium noted to be 1.6 this morning, repleted with 2gm MgSO4. Objective - Vital Signs/Intake and Output Vital Signs (last 24 hours): Temp Pulse Resp BP Pulse Ox 97.5 F L 82 18 140/84 100 01/27/18 12:12 01/27/18 12:12 01/27/18 12:12 01/27/18 12:12 01/27/18 12:12 - Medications Medications: Current Medications Acetaminophen (Tylenol 325mg Tab) 650 mg PO Q6 PRN PRN Reason: Pain, Mild (1-3) Last Admin: 01/26/18 17:59 Dose: 650 mg Albuterol/Ipratropium (Duoneb 3 Mg/0.5 Mg (3 Ml) Ud) 3 ml INH RQ6 PRN PRN Reason: Wheezing Aripiprazole (Abilify) 2 mg PO HS [facility] Last Admin: 01/26/18 21:53 Dose: 2 mg Aspirin (Ecotrin) 81 mg PO DAILY [facility] Last Admin: 01/27/18 08:43 Dose: 81 mg Atorvastatin Calcium (Lipitor) 20 mg PO DAILY [facility] Last Admin: 01/27/18 08:41 Dose: 20 mg Benztropine Mesylate (Cogentin) 1 mg PO Q12 [facility] Last Admin: 01/27/18 08:42 Dose: 1 mg Buspirone HCl (Buspar) 10 mg PO Q12 [facility] Last Admin: 01/27/18 08:41 Dose: 10 mg Calcitriol (Rocaltrol) 0.5 mcg PO Q12 [facility] Last Admin: 01/27/18 08:42 Dose: 0.5 mcg Cholecalciferol (Vitamin D) 1,000 intlu PO DAILY [facility] Last Admin: 01/27/18 08:42 Dose: 1,000 intlu Dextrose (Dextrose 50% Inj) 0 ml IV STAT PRN; Protocol PRN Reason: Hypoglycemia Protocol Dextrose (Glutose 15) 0 gm PO ONCE PRN; Protocol PRN Reason: Hypoglycemia Protocol Duloxetine HCl (Cymbalta) 20 mg PO Q12 [facility] Last Admin: 01/27/18 08:41 Dose: 20 mg Enalapril Maleate (Vasotec) 2.5 mg PO DAILY [facility] Last Admin: 01/27/18 08:43 Dose: 2.5 mg Enoxaparin Sodium (Lovenox) 40 mg SC DAILY [facility]; Protocol Last Admin: 01/27/18 08:41 Dose: 40 mg Escitalopram Oxalate (Lexapro) 10 mg PO DAILY [facility] Last Admin: 01/27/18 08:42 Dose: 10 mg Ferrous Sulfate (Feosol) 325 mg PO DAILY [facility] Last Admin: 01/27/18 08:41 Dose: 325 mg Glucagon (Glucagen Diagnostic Kit) 0 mg IM STAT PRN; Protocol PRN Reason: Hypoglycemia Protocol Hydrocortisone (Cortef) 10 mg PO HS [facility] Last Admin: 01/26/18 21:53 Dose: 10 mg Clindamycin Phosphate (Cleocin) 600 mg in 50 mls @ 50 mls/hr IVPB Q8 [facility]; Protocol Last Admin: 01/27/18 10:57 Dose: 50 mls/hr Ibuprofen (Motrin Tab) 600 mg PO Q8 PRN PRN Reason: Pain, moderate (4-7) Last Admin: 01/26/18 20:25 Dose: 600 mg Insulin Human Regular (Humulin R) 0 units SC [facility]; Protocol Last Admin: 01/27/18 07:51 Dose: Not Given Levothyroxine Sodium (Synthroid) 50 mcg PO DAILY@0630 [facility] Last Admin: 01/27/18 06:47 Dose: 50 mcg Magnesium Oxide (Mag-Ox) 400 mg PO Q12 [facility] Last Admin: 01/27/18 08:42 Dose: 400 mg Nystatin (Nystop Topical Powder) 1 applic TOP TID [facility] Last Admin: 01/27/18 08:41 Dose: 1 units Torsemide (Demadex) 20 mg PO DAILY [facility] Last Admin: 01/27/18 08:43 Dose: 20 mg - Labs Labs: 01/26/18 04:41 01/27/18 13:30 PT 11.5 Seconds (9.8-13.1) 01/25/18 09:55 INR 1.0 01/25/18 09:55 APTT 33.5 Seconds (25.6-37.1) 01/25/18 09:55 - Constitutional Appears: Well, No Acute Distress - Head Exam Head Exam: NORMAL INSPECTION - Eye Exam Eye Exam: Normal appearance - ENT Exam ENT Exam: Mucous Membranes Moist - Respiratory Exam Respiratory Exam: Clear to Ausculation Bilateral. absent: Rales, Wheezes - Cardiovascular Exam Cardiovascular Exam: REGULAR RHYTHM, +S1, +S2. absent: Murmur - GI/Abdominal Exam GI & Abdominal Exam: Soft, Normal Bowel Sounds. absent: Tenderness - Extremities Exam Extremities Exam: Normal Capillary Refill. absent: Calf Tenderness, Pedal Edema - Neurological Exam Neurological Exam: Alert, Awake, Oriented x3 Additional comments: Left lower extremity- swelling and mild erythema up to mid thigh (improved since yesterday), no knee effusion,+ diffuse tenderness, homans negative, sensory and motor in tact, full ROM, pain illicited with weight bearing, no skin breaks or ulcers/wounds. Good distal pulses, warm feet, good capillary refill Assessment and Plan - Assessment and Plan (Free Text) Assessment: Pt is a 71 y/o female with pmhx significant for Multiple Myeloma, hx of multiple fx, IDDM, HTN, Pulmonary HTN, COPD on home O2 (3L NC) and CPAP, hx of PE s/p IVC filter (2014), GERD, Anxiety and depression admitted for Hypomagnesium of 0.8 and Unilateral LE swelling (Left). #Hypomagnesium -Magnesium 1.3 today -Acute on Chronic. May be secondary to large watery BM in setting of chronic hx of low magnesium (chemotherapy side effect). -S/P 2gm of MgSO4 x1 this morning -PO magnesium Oxide BID -Pt has hx of torsades. No significant EKG findings. Repeat EKG- no changes from prior -Monitor BMP, Mag, And Phos closely #LE Swelling -DVT ruled out. Likely Cellulitis as edema and erythema has improved after receiving IV Antibiotics -LE Venous Duplex-- no thrombosis of poplitial, superficial or common femoral veins. -Abdomen CT negative for thombosis of Iliac, Inferior vena cava -C/W Clindamycin IV Q8 -PT for gait stability and strengthening -Keep leg elevated #Pulmonary HTN -Will continue Adempas, non formulary, will ask pt's family to bring in medication -No Cardiac symptoms #COPD -Stable -On O2 3 L -CPAP at night #DM -Medium Sliding Scale -Hypoglycemic protocol #DVT ppx -Lovenox 40mg SQ daily #Diet Diabetic Will downgrade to Med/Surg Discussed case with Dr. Neumann
[2018-01-27] MEDS: ADEMPAS 2 MG PO SCH (20:07)
[2018-01-28] MEDS: Clindamycin 600mg/50ml D5W 600 MG/50 ML VIAL IVPB SCH ×3 (00:28→17:30)
[2018-01-28] MEDS: Levothyroxine 50 MCG TAB PO SCH (05:32)
[2018-01-28 06:43] LABS: BASO % 0.2 % (0.0-2.0); EOS # 0.1 K/uL (0.0-0.7); EOS % 2.5 % (0.0-4.0); LYMPH # 0.5 K/uL (1.0-4.3); LYMPH % 12.3 % (20.0-40.0); MEAN CELL VOLUME 89.8 fl (81.0-99.0); MEAN CORPUSCULAR HEMOGLOBIN 29.7 pg (27.0-31.0); MEAN PLATELET VOLUME 8.6 fl (7.2-11.7); MONO # 0.7 K/uL (0.0-0.8); MONO % 18.4 % (0.0-10.0); NEUT # 2.6 K/uL (1.8-7.0); NEUT % 66.6 % (50.0-75.0); NRBC % 0.1 % (0.0-0.0); RBC 3.38 Mil/uL (3.80-5.20); RED CELL DISTRIBUTION WIDTH 17.4 % (11.5-14.5); WHITE BLOOD COUNT 3.8 K/uL (4.8-10.8)
[2018-01-28 06:45] LABS: BLOOD UREA NITROGEN 24 mg/dl (7-17); CALCIUM 9.5 mg/dL (8.4-10.2); GFR NON-AFRICAN AMERICAN > 60
[2018-01-28] MEDS: ADEMPAS 2 MG PO SCH ×3 (08:20→17:32)
[2018-01-28] MEDS: Enoxaparin 40 mg Syringe SC SCH (08:22)
[2018-01-28] MEDS: Magnesium Oxide 400 mg Tab UD PO SCH ×2 (08:23→21:21)
[2018-01-28] MEDS: Cholecalciferol 1,000 INTLU TAB PO SCH (08:23)
[2018-01-28] MEDS ORDERED: Magnesium Sulfate 2 gm/50 ml 2 GM/50 ML BAG IVPB ONE (08:24)
[2018-01-28] MEDS: Insulin Regular 100 units/ml SC SCH ×4 (08:25→21:22)
--- NOTE | 2018-01-28 18:04 | CP.PCM.PN ---
Subjective - Date & Time of Evaluation Date of Evaluation: 01/28/18 Time of Evaluation: 08:00 - Subjective Subjective: Pt seen and examined this morning. Seen walking from bathroom. Reports that right leg pain and swelling has improved significantly as well as the pain. Denies cough, sob, cp. Objective - Vital Signs/Intake and Output Vital Signs (last 24 hours): Temp Pulse Resp BP Pulse Ox 97.6 F 88 20 104/65 99 01/28/18 16:05 01/28/18 16:05 01/28/18 16:05 01/28/18 16:05 01/28/18 16:05 - Medications Medications: Current Medications Acetaminophen (Tylenol 325mg Tab) 650 mg PO Q6 PRN PRN Reason: Pain, Mild (1-3) Last Admin: 01/26/18 17:59 Dose: 650 mg Albuterol/Ipratropium (Duoneb 3 Mg/0.5 Mg (3 Ml) Ud) 3 ml INH RQ6 PRN PRN Reason: Wheezing Aripiprazole (Abilify) 2 mg PO HS [facility] Last Admin: 01/27/18 21:05 Dose: 2 mg Aspirin (Ecotrin) 81 mg PO DAILY [facility] Last Admin: 01/28/18 08:20 Dose: 81 mg Atorvastatin Calcium (Lipitor) 20 mg PO DAILY [facility] Last Admin: 01/28/18 08:22 Dose: 20 mg Benztropine Mesylate (Cogentin) 1 mg PO Q12 [facility] Last Admin: 01/28/18 08:21 Dose: 1 mg Buspirone HCl (Buspar) 10 mg PO Q12 [facility] Last Admin: 01/28/18 08:20 Dose: 10 mg Calcitriol (Rocaltrol) 0.5 mcg PO Q12 [facility] Last Admin: 01/28/18 08:20 Dose: 0.5 mcg Cholecalciferol (Vitamin D) 1,000 intlu PO DAILY [facility] Last Admin: 01/28/18 08:23 Dose: 1,000 intlu Dextrose (Dextrose 50% Inj) 0 ml IV STAT PRN; Protocol PRN Reason: Hypoglycemia Protocol Dextrose (Glutose 15) 0 gm PO ONCE PRN; Protocol PRN Reason: Hypoglycemia Protocol Duloxetine HCl (Cymbalta) 20 mg PO Q12 [facility] Last Admin: 01/28/18 08:24 Dose: 20 mg Enalapril Maleate (Vasotec) 2.5 mg PO DAILY [facility] Last Admin: 01/28/18 08:24 Dose: 2.5 mg Enoxaparin Sodium (Lovenox) 40 mg SC DAILY [facility]; Protocol Last Admin: 01/28/18 08:22 Dose: 40 mg Escitalopram Oxalate (Lexapro) 10 mg PO DAILY [facility] Last Admin: 01/28/18 08:22 Dose: 10 mg Ferrous Sulfate (Feosol) 325 mg PO DAILY [facility] Last Admin: 01/28/18 08:19 Dose: 325 mg Glucagon (Glucagen Diagnostic Kit) 0 mg IM STAT PRN; Protocol PRN Reason: Hypoglycemia Protocol Home Med (Patient's Own Medication) 1 unit PO TID [facility] Last Admin: 01/28/18 17:32 Dose: 1 unit Hydrocortisone (Cortef) 10 mg PO HS [facility] Last Admin: 01/27/18 21:04 Dose: 10 mg Clindamycin Phosphate (Cleocin) 600 mg in 50 mls @ 50 mls/hr IVPB Q8 [facility]; Protocol Last Admin: 01/28/18 17:30 Dose: 50 mls/hr Ibuprofen (Motrin Tab) 600 mg PO Q8 PRN PRN Reason: Pain, moderate (4-7) Last Admin: 01/27/18 16:56 Dose: 600 mg Insulin Human Regular (Humulin R) 0 units SC ACHS [facility]; Protocol Last Admin: 01/28/18 12:56 Dose: Not Given Levothyroxine Sodium (Synthroid) 50 mcg PO DAILY@0630 [facility] Last Admin: 01/28/18 05:32 Dose: 50 mcg Magnesium Oxide (Mag-Ox) 400 mg PO Q12 [facility] Last Admin: 01/28/18 08:23 Dose: 400 mg Nystatin (Nystop Topical Powder) 1 applic TOP TID [facility] Last Admin: 01/28/18 17:31 Dose: 1 units Torsemide (Demadex) 20 mg PO DAILY [facility] Last Admin: 01/28/18 08:22 Dose: 20 mg - Labs Labs: 01/28/18 04:20 01/28/18 04:20 PT 11.5 Seconds (9.8-13.1) 01/25/18 09:55 INR 1.0 01/25/18 09:55 APTT 33.5 Seconds (25.6-37.1) 01/25/18 09:55 - Constitutional Appears: Well, Non-toxic, No Acute Distress - Head Exam Head Exam: NORMAL INSPECTION - Eye Exam Eye Exam: Normal appearance - ENT Exam ENT Exam: Mucous Membranes Moist - Neck Exam Neck Exam: Full ROM - Respiratory Exam Respiratory Exam: Clear to Ausculation Bilateral. absent: Rales, Wheezes - Cardiovascular Exam Cardiovascular Exam: REGULAR RHYTHM, +S1, +S2. absent: Murmur - GI/Abdominal Exam GI & Abdominal Exam: Distended, Soft. absent: Tenderness - Extremities Exam Additional comments: Left lower extremity- No swelling BL, erythema improved. No knee effusion,+ diffuse tenderness, homans negative, sensory and motor in tact, full ROM, pain illicited with weight bearing, no skin breaks or ulcers/wounds. Good distal pulses, warm feet, good capillary refill - Neurological Exam Neurological Exam: Alert, Oriented x3 - Skin Skin Exam: Normal Color Assessment and Plan - Assessment and Plan (Free Text) Assessment: Pt is a 71 y/o female with pmhx significant for Multiple Myeloma, hx of multiple fx, IDDM, HTN, Pulmonary HTN, COPD on home O2 (3L NC) and CPAP, hx of PE s/p IVC filter (2014), GERD, Anxiety and depression admitted for Hypomagnesium of 0.8 and Unilateral LE swelling (Left). #Hypomagnesium -Magnesium 1.4 today -Acute on Chronic. May be secondary to large watery BM in setting of chronic hx of low magnesium (chemotherapy side effect). -S/P 1gm of MgSO4 x1 this morning -PO magnesium Oxide BID -Pt has hx of torsades. No significant EKG findings. Repeat EKG- no changes from prior -Monitor BMP, Mag, And Phos closely #LE Swelling -Improved -DVT ruled out. Likely Cellulitis as edema and erythema has improved after receiving IV Antibiotics -LE Venous Duplex-- no thrombosis of poplitial, superficial or common femoral veins. -Abdomen CT negative for thombosis of Iliac, Inferior vena cava -C/W Clindamycin IV Q8 -PT for gait stability and strengthening -Keep leg elevated #Pulmonary HTN -Will continue Adempas, non formulary, will ask pt's family to bring in medication -No Cardiac symptoms #COPD -Stable -On O2 3 L -CPAP at night #DM -Medium Sliding Scale -Hypoglycemic protocol #DVT ppx -Lovenox 40mg SQ daily #Diet Diabetic Will downgrade to Med/Surg Discussed case with Dr. Neumann
[2018-01-29] MEDS: Clindamycin 600mg/50ml D5W 600 MG/50 ML VIAL IVPB SCH ×3 (00:51→17:27)
[2018-01-29] MEDS: Levothyroxine 50 MCG TAB PO SCH (06:52)
[2018-01-29 06:58] LABS: HEMOGLOBIN 10.2 g/dL (12.0-16.0); MEAN CELL VOLUME 88.4 fl (81.0-99.0); MEAN CORPUSCULAR HGB CONC 32.8 g/dL (33.0-37.0); RBC 3.53 Mil/uL (3.80-5.20); RED CELL DISTRIBUTION WIDTH 17.7 % (11.5-14.5); WHITE BLOOD COUNT 4.3 K/uL (4.8-10.8)
[2018-01-29 07:12] LABS: BLOOD UREA NITROGEN 26 mg/dl (7-17); CALCIUM 9.7 mg/dL (8.4-10.2); GFR NON-AFRICAN AMERICAN > 60
[2018-01-29] MEDS: Insulin Regular 100 units/ml SC SCH ×4 (09:42→22:30)
[2018-01-29] MEDS: Magnesium Oxide 400 mg Tab UD PO SCH ×2 (09:42→21:55)
[2018-01-29] MEDS: Cholecalciferol 1,000 INTLU TAB PO SCH (09:43)
[2018-01-29] MEDS: Enoxaparin 40 mg Syringe SC SCH (09:43)
[2018-01-29] MEDS: ADEMPAS 2 MG PO SCH ×3 (09:44→17:28)
[2018-01-29] MEDS ORDERED: Magnesium Sulfate 2 gm/50 ml 2 GM/50 ML BAG IVPB ONE (12:06)
--- NOTE | 2018-01-29 13:49 | CP.PCM.PN ---
<Camilla Worthya - Last Filed: 01/29/18 13:58> Subjective - Date & Time of Evaluation Date of Evaluation: 01/29/18 Time of Evaluation: 09:50 - Subjective Subjective: Pt seen/evaluated at bedside this morning, no acute events overnight. Lower extremity cellulitis improving. Magnesium low at 1.3 Denies cough, shortness of breath, chest pain. Objective - Vital Signs/Intake and Output Vital Signs (last 24 hours): Temp Pulse Resp BP Pulse Ox 97.7 F 86 18 109/64 100 01/29/18 11:49 01/29/18 11:49 01/29/18 11:49 01/29/18 11:49 01/29/18 11:49 - Medications Medications: Current Medications Acetaminophen (Tylenol 325mg Tab) 650 mg PO Q6 PRN PRN Reason: Pain, Mild (1-3) Last Admin: 01/29/18 09:53 Dose: 650 mg Albuterol/Ipratropium (Duoneb 3 Mg/0.5 Mg (3 Ml) Ud) 3 ml INH RQ6 PRN PRN Reason: Wheezing Aripiprazole (Abilify) 2 mg PO HS [facility] Last Admin: 01/28/18 21:21 Dose: 2 mg Aspirin (Ecotrin) 81 mg PO DAILY [facility] Last Admin: 01/29/18 09:41 Dose: 81 mg Atorvastatin Calcium (Lipitor) 20 mg PO DAILY [facility] Last Admin: 01/29/18 09:46 Dose: 20 mg Benztropine Mesylate (Cogentin) 1 mg PO Q12 [facility] Last Admin: 01/29/18 09:40 Dose: 1 mg Buspirone HCl (Buspar) 10 mg PO Q12 [facility] Last Admin: 01/29/18 09:40 Dose: 10 mg Calcitriol (Rocaltrol) 0.5 mcg PO Q12 [facility] Last Admin: 01/29/18 09:43 Dose: 0.5 mcg Cholecalciferol (Vitamin D) 1,000 intlu PO DAILY [facility] Last Admin: 01/29/18 09:43 Dose: 1,000 intlu Dextrose (Dextrose 50% Inj) 0 ml IV STAT PRN; Protocol PRN Reason: Hypoglycemia Protocol Dextrose (Glutose 15) 0 gm PO ONCE PRN; Protocol PRN Reason: Hypoglycemia Protocol Duloxetine HCl (Cymbalta) 20 mg PO Q12 [facility] Last Admin: 01/29/18 09:40 Dose: 20 mg Enalapril Maleate (Vasotec) 2.5 mg PO DAILY [facility] Last Admin: 01/29/18 09:44 Dose: 2.5 mg Enoxaparin Sodium (Lovenox) 40 mg SC DAILY [facility]; Protocol Last Admin: 01/29/18 09:43 Dose: 40 mg Escitalopram Oxalate (Lexapro) 10 mg PO DAILY [facility] Last Admin: 01/29/18 09:45 Dose: 10 mg Ferrous Sulfate (Feosol) 325 mg PO DAILY [facility] Last Admin: 01/29/18 09:41 Dose: 325 mg Glucagon (Glucagen Diagnostic Kit) 0 mg IM STAT PRN; Protocol PRN Reason: Hypoglycemia Protocol Home Med (Patient's Own Medication) 1 unit PO TID [facility] Last Admin: 01/29/18 09:44 Dose: 1 unit Hydrocortisone (Cortef) 10 mg PO HS [facility] Last Admin: 01/28/18 21:20 Dose: 10 mg Clindamycin Phosphate (Cleocin) 600 mg in 50 mls @ 50 mls/hr IVPB Q8 [facility]; Protocol Last Admin: 01/29/18 09:39 Dose: 50 mls/hr Ibuprofen (Motrin Tab) 600 mg PO Q8 PRN PRN Reason: Pain, moderate (4-7) Last Admin: 01/27/18 16:56 Dose: 600 mg Insulin Human Regular (Humulin R) 0 units SC ACHS [facility]; Protocol Last Admin: 01/29/18 12:57 Dose: 2 unit Levothyroxine Sodium (Synthroid) 50 mcg PO DAILY@0630 [facility] Last Admin: 01/29/18 06:52 Dose: 50 mcg Magnesium Oxide (Mag-Ox) 400 mg PO Q12 [facility] Last Admin: 01/29/18 09:42 Dose: 400 mg Nystatin (Nystop Topical Powder) 1 applic TOP TID [facility] Last Admin: 01/29/18 12:56 Dose: 1 units Torsemide (Demadex) 20 mg PO DAILY [facility] Last Admin: 01/29/18 09:41 Dose: 20 mg - Labs Labs: 01/29/18 05:37 01/29/18 05:37 PT 11.5 Seconds (9.8-13.1) 01/25/18 09:55 INR 1.0 01/25/18 09:55 APTT 33.5 Seconds (25.6-37.1) 01/25/18 09:55 - Constitutional Appears: No Acute Distress - Head Exam Head Exam: NORMAL INSPECTION - Eye Exam Eye Exam: Normal appearance - ENT Exam ENT Exam: Mucous Membranes Moist - Respiratory Exam Respiratory Exam: Clear to Ausculation Bilateral, NORMAL BREATHING PATTERN - Cardiovascular Exam Cardiovascular Exam: REGULAR RHYTHM, +S1, +S2 - GI/Abdominal Exam GI & Abdominal Exam: Soft. absent: Tenderness - Extremities Exam Additional comments: No swelling BL, erythema improved. Sensory and motor sensation intact, full ROM, no skin breaks or ulcers/wounds. DP 2+, good capillary refill - Back Exam Back Exam: NORMAL INSPECTION - Neurological Exam Neurological Exam: Alert, Awake, Oriented x3 - Psychiatric Exam Psychiatric exam: Normal Affect - Skin Skin Exam: Warm Assessment and Plan - Assessment and Plan (Free Text) Assessment: 71 yo female with medical history significant for Multiple Myeloma, hx of multiple fx, IDDM, HTN, Pulmonary HTN, COPD on home O2 (3L NC) and CPAP, hx of PE s/p IVC filter (2014), GERD, Anxiety and depression admitted for hypomagnesemia of 0.8 and unilateral LE swelling/erythema (left). 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) - PO magnesium oxide BID - 2gm IV MgSO4 today - Has hx of torsades; no significant EKG findings on this admission, no changes from prior - Monitor BMP, mag, phos closely #LE Swelling, likely cellulitis - Improving - DVT ruled out; likely cellulitis as edema and erythema has improved after receiving IV antibiotics - LE Venous Duplex-- no thrombosis of poplitial, superficial or common femoral veins - Abdomen CT negative for thombosis of iliac, inferior vena cava - Continue clindamycin IV Q8 - PT for gait stability and strengthening - Keep leg elevated #Pulmonary HTN - Continue Adempas, non formulary, pt's own med - No Cardiac symptoms #COPD - Stable - On O2 3 L - CPAP at night #DM - Medium Coverage Scale - Hypoglycemic protocol #DVT ppx - Lovenox 40mg SQ daily #Diet Diabetic For downgrade to med/surg. <Tim Cabrera D - Last Filed: 01/29/18 16:44> Objective - Vital Signs/Intake and Output Vital Signs (last 24 hours): Temp Pulse Resp BP Pulse Ox 98.1 F 86 16 108/49 L 96 01/29/18 16:12 01/29/18 16:12 01/29/18 16:12 01/29/18 16:12 01/29/18 16:12 - Medications Medications: Current Medications Acetaminophen (Tylenol 325mg Tab) 650 mg PO Q6 PRN PRN Reason: Pain, Mild (1-3) Last Admin: 01/29/18 09:53 Dose: 650 mg Albuterol/Ipratropium (Duoneb 3 Mg/0.5 Mg (3 Ml) Ud) 3 ml INH RQ6 PRN PRN Reason: Wheezing Aripiprazole (Abilify) 2 mg PO HS [facility] Last Admin: 01/28/18 21:21 Dose: 2 mg Aspirin (Ecotrin) 81 mg PO DAILY [facility] Last Admin: 01/29/18 09:41 Dose: 81 mg Atorvastatin Calcium (Lipitor) 20 mg PO DAILY [facility] Last Admin: 01/29/18 09:46 Dose: 20 mg Benztropine Mesylate (Cogentin) 1 mg PO Q12 [facility] Last Admin: 01/29/18 09:40 Dose: 1 mg Buspirone HCl (Buspar) 10 mg PO Q12 [facility] Last Admin: 01/29/18 09:40 Dose: 10 mg Calcitriol (Rocaltrol) 0.5 mcg PO Q12 [facility] Last Admin: 01/29/18 09:43 Dose: 0.5 mcg Cholecalciferol (Vitamin D) 1,000 intlu PO DAILY [facility] Last Admin: 01/29/18 09:43 Dose: 1,000 intlu Dextrose (Dextrose 50% Inj) 0 ml IV STAT PRN; Protocol PRN Reason: Hypoglycemia Protocol Dextrose (Glutose 15) 0 gm PO ONCE PRN; Protocol PRN Reason: Hypoglycemia Protocol Duloxetine HCl (Cymbalta) 20 mg PO Q12 [facility] Last Admin: 01/29/18 09:40 Dose: 20 mg Enalapril Maleate (Vasotec) 2.5 mg PO DAILY [facility] Last Admin: 01/29/18 09:44 Dose: 2.5 mg Enoxaparin Sodium (Lovenox) 40 mg SC DAILY [facility]; Protocol Last Admin: 01/29/18 09:43 Dose: 40 mg Escitalopram Oxalate (Lexapro) 10 mg PO DAILY [facility] Last Admin: 01/29/18 09:45 Dose: 10 mg Ferrous Sulfate (Feosol) 325 mg PO DAILY [facility] Last Admin: 01/29/18 09:41 Dose: 325 mg Glucagon (Glucagen Diagnostic Kit) 0 mg IM STAT PRN; Protocol PRN Reason: Hypoglycemia Protocol Home Med (Patient's Own Medication) 1 unit PO TID [facility] Last Admin: 01/29/18 09:44 Dose: 1 unit Hydrocortisone (Cortef) 10 mg PO HS [facility] Last Admin: 01/28/18 21:20 Dose: 10 mg Clindamycin Phosphate (Cleocin) 600 mg in 50 mls @ 50 mls/hr IVPB Q8 [facility]; Protocol Last Admin: 01/29/18 09:39 Dose: 50 mls/hr Ibuprofen (Motrin Tab) 600 mg PO Q8 PRN PRN Reason: Pain, moderate (4-7) Last Admin: 01/27/18 16:56 Dose: 600 mg Insulin Human Regular (Humulin R) 0 units SC ACHS [facility]; Protocol Last Admin: 01/29/18 12:57 Dose: 2 unit Levothyroxine Sodium (Synthroid) 50 mcg PO DAILY@0630 [facility] Last Admin: 01/29/18 06:52 Dose: 50 mcg Magnesium Oxide (Mag-Ox) 400 mg PO Q12 [facility] Last Admin: 01/29/18 09:42 Dose: 400 mg Nystatin (Nystop Topical Powder) 1 applic TOP TID [facility] Last Admin: 01/29/18 12:56 Dose: 1 units Torsemide (Demadex) 20 mg PO DAILY [facility] Last Admin: 01/29/18 09:41 Dose: 20 mg - Labs Labs: 01/29/18 05:37 01/29/18 05:37 PT 11.5 Seconds (9.8-13.1) 01/25/18 09:55 INR 1.0 01/25/18 09:55 APTT 33.5 Seconds (25.6-37.1) 01/25/18 09:55 Attending/Attestation - Attestation I have personally seen and examined this patient.: Yes I have fully participated in the care of the patient.: Yes I have reviewed all pertinent clinical information, including history, physical exam and plan: Yes Notes (Text): 01/29/18 16:43 Patient seen and examined with resident. Case discussed and agreed with assessment.
[2018-01-30] MEDS: Clindamycin 600mg/50ml D5W 600 MG/50 ML VIAL IVPB SCH ×3 (01:27→17:49)
[2018-01-30] MEDS: Levothyroxine 50 MCG TAB PO SCH (06:17)
[2018-01-30] MEDS: Insulin Regular 100 units/ml SC SCH ×4 (06:54→22:56)
--- NOTE | 2018-01-30 08:30 | CP.PCM.PN ---
<Ruslan Patel - Last Filed: 01/30/18 14:09> Subjective - Date & Time of Evaluation Date of Evaluation: 01/30/18 Time of Evaluation: 07:25 - Subjective Subjective: Pt seen and examined at bedside. No acute event overnight. Patient had no complain. Objective - Vital Signs/Intake and Output Vital Signs (last 24 hours): Temp Pulse Resp BP Pulse Ox 98.6 F 86 18 126/62 100 01/30/18 05:00 01/30/18 05:00 01/30/18 05:00 01/30/18 05:00 01/30/18 05:00 - Medications Medications: Current Medications Acetaminophen (Tylenol 325mg Tab) 650 mg PO Q6 PRN PRN Reason: Pain, Mild (1-3) Last Admin: 01/29/18 09:53 Dose: 650 mg Albuterol/Ipratropium (Duoneb 3 Mg/0.5 Mg (3 Ml) Ud) 3 ml INH RQ6 PRN PRN Reason: Wheezing Aripiprazole (Abilify) 2 mg PO HS [facility] Last Admin: 01/29/18 21:55 Dose: 2 mg Aspirin (Ecotrin) 81 mg PO DAILY [facility] Last Admin: 01/29/18 09:41 Dose: 81 mg Atorvastatin Calcium (Lipitor) 20 mg PO DAILY [facility] Last Admin: 01/29/18 09:46 Dose: 20 mg Benztropine Mesylate (Cogentin) 1 mg PO Q12 [facility] Last Admin: 01/29/18 21:54 Dose: 1 mg Buspirone HCl (Buspar) 10 mg PO Q12 [facility] Last Admin: 01/29/18 21:55 Dose: 10 mg Calcitriol (Rocaltrol) 0.5 mcg PO Q12 [facility] Last Admin: 01/29/18 21:55 Dose: 0.5 mcg Cholecalciferol (Vitamin D) 1,000 intlu PO DAILY [facility] Last Admin: 01/29/18 09:43 Dose: 1,000 intlu Dextrose (Dextrose 50% Inj) 0 ml IV STAT PRN; Protocol PRN Reason: Hypoglycemia Protocol Dextrose (Glutose 15) 0 gm PO ONCE PRN; Protocol PRN Reason: Hypoglycemia Protocol Duloxetine HCl (Cymbalta) 20 mg PO Q12 [facility] Last Admin: 01/29/18 21:55 Dose: 20 mg Enalapril Maleate (Vasotec) 2.5 mg PO DAILY [facility] Last Admin: 01/29/18 09:44 Dose: 2.5 mg Enoxaparin Sodium (Lovenox) 40 mg SC DAILY [facility]; Protocol Last Admin: 01/29/18 09:43 Dose: 40 mg Escitalopram Oxalate (Lexapro) 10 mg PO DAILY [facility] Last Admin: 01/29/18 09:45 Dose: 10 mg Ferrous Sulfate (Feosol) 325 mg PO DAILY [facility] Last Admin: 01/29/18 09:41 Dose: 325 mg Glucagon (Glucagen Diagnostic Kit) 0 mg IM STAT PRN; Protocol PRN Reason: Hypoglycemia Protocol Home Med (Patient's Own Medication) 1 unit PO TID [facility] Last Admin: 01/29/18 17:28 Dose: 1 unit Hydrocortisone (Cortef) 10 mg PO HS [facility] Last Admin: 01/29/18 21:55 Dose: 10 mg Clindamycin Phosphate (Cleocin) 600 mg in 50 mls @ 50 mls/hr IVPB Q8 [facility]; Protocol Last Admin: 01/30/18 01:27 Dose: 50 mls/hr Ibuprofen (Motrin Tab) 600 mg PO Q8 PRN PRN Reason: Pain, moderate (4-7) Last Admin: 01/27/18 16:56 Dose: 600 mg Insulin Human Regular (Humulin R) 0 units SC ACHS [facility]; Protocol Last Admin: 01/30/18 06:54 Dose: Not Given Levothyroxine Sodium (Synthroid) 50 mcg PO DAILY@0630 [facility] Last Admin: 01/30/18 06:17 Dose: 50 mcg Magnesium Oxide (Mag-Ox) 400 mg PO Q12 [facility] Last Admin: 01/29/18 21:55 Dose: 400 mg Nystatin (Nystop Topical Powder) 1 applic TOP TID [facility] Last Admin: 01/29/18 17:28 Dose: 1 units Torsemide (Demadex) 20 mg PO DAILY [facility] Last Admin: 01/29/18 09:41 Dose: 20 mg - Labs Labs: 01/29/18 05:37 01/29/18 05:37 PT 11.5 Seconds (9.8-13.1) 01/25/18 09:55 INR 1.0 01/25/18 09:55 APTT 33.5 Seconds (25.6-37.1) 01/25/18 09:55 - Constitutional Appears: Well, Non-toxic, No Acute Distress - Head Exam Head Exam: ATRAUMATIC, NORMAL INSPECTION, NORMOCEPHALIC - Eye Exam Eye Exam: EOMI, Normal appearance, PERRL Pupil Exam: NORMAL ACCOMODATION, PERRL - ENT Exam ENT Exam: Mucous Membranes Moist, Normal Exam - Neck Exam Neck Exam: Full ROM, Normal Inspection - Respiratory Exam Respiratory Exam: NORMAL BREATHING PATTERN Additional comments: Mild ronchi on RL base - Cardiovascular Exam Cardiovascular Exam: REGULAR RHYTHM, +S1, +S2 - GI/Abdominal Exam GI & Abdominal Exam: Soft, Normal Bowel Sounds - Extremities Exam Extremities Exam: Full ROM, Normal Capillary Refill, Normal Inspection Additional comments: Erythema improved, no edema noted. Sensory and motor sensation intact, full ROM, no skin breaks or ulcers/wounds. DP 2+, good capillary refill - Back Exam Back Exam: NORMAL INSPECTION - Neurological Exam Neurological Exam: Alert, Awake - Psychiatric Exam Psychiatric exam: Normal Affect, Normal Mood - Skin Skin Exam: Dry, Intact, Normal Color, Warm Assessment and Plan - Assessment and Plan (Free Text) Assessment: 71 yo female with medical history significant for Multiple Myeloma, hx of multiple fx, IDDM, HTN, Pulmonary HTN, COPD on home O2 (3L NC) and CPAP, hx of PE s/p IVC filter (2014), GERD, Anxiety and depression admitted for hypomagnesemia of 0.8 and unilateral LE swelling/erythema (left). 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) - Increased mg to 800mg bid - Order another 2gm IV MgSO4 today - Has hx of torsades; no significant EKG findings on this admission, no changes from prior - f/u [facility] tomorrow LE Swelling, likely cellulitis - Improving - DVT ruled out; likely cellulitis as edema and erythema has improved after receiving IV antibiotics - LE Venous Duplex-- no thrombosis of poplitial, superficial or common femoral veins - Abdomen CT negative for thrombosis of iliac, inferior vena cava - Continue clindamycin IV Q8 - PT for gait stability and strengthening - Keep leg elevated -PT Evaluation tomorrow and possible D/C Pulmonary HTN - Continue Adempas, non formulary, pt's own med - No Cardiac symptoms COPD - Stable - On O2 3 L - CPAP at night DM - Medium Coverage Scale - Hypoglycemic protocol DVT ppx - Lovenox 40mg SQ daily Diet Diabetic Code FULL <Tim Carbera D - Last Filed: 01/30/18 15:49> Objective - Vital Signs/Intake and Output Vital Signs (last 24 hours): Temp Pulse Resp BP Pulse Ox 97.8 F 88 18 122/70 100 01/30/18 13:00 01/30/18 13:00 01/30/18 13:00 01/30/18 13:00 01/30/18 13:00 - Medications Medications: Current Medications Acetaminophen (Tylenol 325mg Tab) 650 mg PO Q6 PRN PRN Reason: Pain, Mild (1-3) Last Admin: 01/29/18 09:53 Dose: 650 mg Albuterol/Ipratropium (Duoneb 3 Mg/0.5 Mg (3 Ml) Ud) 3 ml INH RQ6 PRN PRN Reason: Wheezing Aripiprazole (Abilify) 2 mg PO HS [facility] Last Admin: 01/29/18 21:55 Dose: 2 mg Aspirin (Ecotrin) 81 mg PO DAILY [facility] Last Admin: 01/30/18 09:46 Dose: 81 mg Atorvastatin Calcium (Lipitor) 20 mg PO DAILY [facility] Last Admin: 01/30/18 09:46 Dose: 20 mg Benztropine Mesylate (Cogentin) 1 mg PO Q12 [facility] Last Admin: 01/30/18 09:45 Dose: 1 mg Buspirone HCl (Buspar) 10 mg PO Q12 [facility] Last Admin: 01/30/18 09:46 Dose: 10 mg Calcitriol (Rocaltrol) 0.5 mcg PO Q12 [facility] Last Admin: 01/30/18 09:45 Dose: 0.5 mcg Cholecalciferol (Vitamin D) 1,000 intlu PO DAILY [facility] Last Admin: 01/30/18 09:46 Dose: 1,000 intlu Dextrose (Dextrose 50% Inj) 0 ml IV STAT PRN; Protocol PRN Reason: Hypoglycemia Protocol Dextrose (Glutose 15) 0 gm PO ONCE PRN; Protocol PRN Reason: Hypoglycemia Protocol Duloxetine HCl (Cymbalta) 20 mg PO Q12 [facility] Last Admin: 01/30/18 09:45 Dose: 20 mg Enalapril Maleate (Vasotec) 2.5 mg PO DAILY [facility] Last Admin: 01/30/18 09:46 Dose: 2.5 mg Enoxaparin Sodium (Lovenox) 40 mg SC DAILY [facility]; Protocol Last Admin: 01/30/18 09:45 Dose: 40 mg Escitalopram Oxalate (Lexapro) 10 mg PO DAILY [facility] Last Admin: 01/30/18 09:45 Dose: 10 mg Ferrous Sulfate (Feosol) 325 mg PO DAILY [facility] Last Admin: 01/30/18 09:46 Dose: 325 mg Glucagon (Glucagen Diagnostic Kit) 0 mg IM STAT PRN; Protocol PRN Reason: Hypoglycemia Protocol Home Med (Patient's Own Medication) 1 unit PO TID [facility] Last Admin: 01/30/18 14:59 Dose: 1 unit Hydrocortisone (Cortef) 10 mg PO HS [facility] Last Admin: 01/29/18 21:55 Dose: 10 mg Clindamycin Phosphate (Cleocin) 600 mg in 50 mls @ 50 mls/hr IVPB Q8 [facility]; Protocol Last Admin: 01/30/18 09:44 Dose: 50 mls/hr Ibuprofen (Motrin Tab) 600 mg PO Q8 PRN PRN Reason: Pain, moderate (4-7) Last Admin: 01/27/18 16:56 Dose: 600 mg Insulin Human Regular (Humulin R) 0 units SC ACHS [facility]; Protocol Last Admin: 01/30/18 14:58 Dose: Not Given Lactobacillus Acidophilus (Bacid Acidophilus) 1 cap PO BID [facility] Last Admin: 01/30/18 09:48 Dose: 1 cap Levothyroxine Sodium (Synthroid) 50 mcg PO DAILY@0630 [facility] Last Admin: 01/30/18 06:17 Dose: 50 mcg Magnesium Oxide (Mag-Ox) 800 mg PO Q12 [facility] Last Admin: 01/30/18 14:59 Dose: Not Given Nystatin (Nystop Topical Powder) 1 applic TOP TID [facility] Last Admin: 01/30/18 14:58 Dose: Not Given Torsemide (Demadex) 20 mg PO DAILY [facility] Last Admin: 01/30/18 09:45 Dose: 20 mg - Labs Labs: 01/30/18 09:22 01/30/18 09:22 PT 11.5 Seconds (9.8-13.1) 11/20/18 09:55 INR 1.0 01/25/18 09:55 APTT 33.5 Seconds (25.6-37.1) 01/25/18 09:55 Attending/Attestation - Attestation I have personally seen and examined this patient.: Yes I have fully participated in the care of the patient.: Yes I have reviewed all pertinent clinical information, including history, physical exam and plan: Yes Notes (Text): 01/30/18 15:48 Patient seen and examined with resident. Case discussed and agreed with assessment.
[2018-01-30] MEDS: ADEMPAS 2 MG PO SCH ×3 (09:44→17:50)
[2018-01-30] MEDS: Enoxaparin 40 mg Syringe SC SCH (09:45)
[2018-01-30] MEDS: Cholecalciferol 1,000 INTLU TAB PO SCH (09:46)
[2018-01-30] MEDS: Lactobacillus Acidophilus 500 MU Cap PO SCH ×2 (09:48→17:48)
[2018-01-30 10:08] LABS: HEMOGLOBIN 10.5 g/dL (12.0-16.0); MEAN CELL VOLUME 89.8 fl (81.0-99.0); MEAN CORPUSCULAR HEMOGLOBIN 28.9 pg (27.0-31.0); MEAN CORPUSCULAR HGB CONC 32.2 g/dL (33.0-37.0); RBC 3.62 Mil/uL (3.80-5.20); RED CELL DISTRIBUTION WIDTH 17.4 % (11.5-14.5); WHITE BLOOD COUNT 5.1 K/uL (4.8-10.8)
[2018-01-30 10:39] LABS: ALB/GLOB RATIO 1.3 (1.0-2.1); ALBUMIN 4.2 g/dL (3.5-5.0); ALT/SGPT 31 U/L (9-52); AST/SGOT 46 U/L (14-36); BLOOD UREA NITROGEN 23 mg/dl (7-17); CALCIUM 9.7 mg/dL (8.4-10.2); GFR NON-AFRICAN AMERICAN > 60
[2018-01-30] MEDS ORDERED: Magnesium Sulfate 2 gm/50 ml 2 GM/50 ML BAG IVPB ONE (13:50)
[2018-01-30] MEDS: Magnesium Oxide 400 mg Tab UD PO SCH ×2 (14:59→21:52)
[2018-01-31] MEDS: Clindamycin 600mg/50ml D5W 600 MG/50 ML VIAL IVPB SCH ×3 (01:00→21:25)
[2018-01-31] MEDS: Levothyroxine 50 MCG TAB PO SCH (06:27)
[2018-01-31 06:53] LABS: BLOOD UREA NITROGEN 25 mg/dl (7-17); CALCIUM 9.2 mg/dL (8.4-10.2); GFR NON-AFRICAN AMERICAN > 60
[2018-01-31] MEDS ORDERED: Magnesium Sulfate 1 gm in D5W 1 GM/100 ML BAG IVPB ONE (07:45)
[2018-01-31] MEDS: Insulin Regular 100 units/ml SC SCH ×4 (08:00→22:27)
[2018-01-31] MEDS: Magnesium Oxide 400 mg Tab UD PO SCH ×2 (09:08→22:27)
[2018-01-31] MEDS: Lactobacillus Acidophilus 500 MU Cap PO SCH ×2 (09:08→17:37)
[2018-01-31] MEDS: Cholecalciferol 1,000 INTLU TAB PO SCH (09:08)
[2018-01-31] MEDS: ADEMPAS 2 MG PO SCH ×3 (09:09→17:35)
--- NOTE | 2018-01-31 11:54 | PQF ---
PROVIDER RESPONSE TEXT: Pt has perserved EF CHF, chronic, stable REVIEWER QUERY TEXT: Heart Failure Acuity and Type Congestive Heart Failure is documented in the Medical Record. Please document the type and acuity (in cludes probable or suspected) versus Hx. of CHF: not a chronic condition etc. Such as: Type: -- Combined systolic and diastolic (heart failure with reduced ejection fraction and diastolic) dysfu nction -- Diastolic (HFpEF) -- Systolic (HFrEF) -- Left heart failure -- Right heart failure -- Right heart failure due to left heart failure -- High output failure -- End stage heart failure -- Other, please specify Acuity: -- Acute -- Chronic -- Acute on chronic -- Other, please specify 01/25 ProBNP:585 H and P: hx. includes: CHF The patient's Clinical Indicators include: - Query created by: Gisella Perez on 01/28/2018 3:42 PM Electronically signed by: Deneen Varela 01/31/2018 11:51 AM
--- NOTE | 2018-01-31 11:54 | CP.PCM.PN ---
Subjective - Date & Time of Evaluation Date of Evaluation: 01/31/18 Time of Evaluation: 09:00 - Subjective Subjective: Pt seen and examined at the bedside with Dr. Neumann. Reports left leg pain with light touch and ambulation, unable to complete physical therapy. Has been ambulating to and from bathroom with walker. Eating, urinating, and stooling normally. Discussed need for continuation of Velcade (chemotherapy) with Dr. Vilchis who recommended holding for hospital admission. Objective - Vital Signs/Intake and Output Vital Signs (last 24 hours): Temp Pulse Resp BP Pulse Ox 97.6 F 89 20 125/73 96 01/31/18 08:46 01/31/18 08:46 01/31/18 08:46 01/31/18 08:46 01/31/18 08:46 - Medications Medications: Current Medications Acetaminophen (Tylenol 325mg Tab) 650 mg PO Q6 PRN PRN Reason: Pain, Mild (1-3) Last Admin: 01/29/18 09:53 Dose: 650 mg Albuterol/Ipratropium (Duoneb 3 Mg/0.5 Mg (3 Ml) Ud) 3 ml INH RQ6 PRN PRN Reason: Wheezing Aripiprazole (Abilify) 2 mg PO HS [facility] Last Admin: 01/30/18 21:52 Dose: 2 mg Aspirin (Ecotrin) 81 mg PO DAILY [facility] Last Admin: 01/31/18 09:08 Dose: 81 mg Atorvastatin Calcium (Lipitor) 20 mg PO DAILY [facility] Last Admin: 01/31/18 09:08 Dose: 20 mg Benztropine Mesylate (Cogentin) 1 mg PO Q12 [facility] Last Admin: 01/31/18 09:08 Dose: 1 mg Buspirone HCl (Buspar) 10 mg PO Q12 [facility] Last Admin: 01/31/18 09:08 Dose: 10 mg Calcitriol (Rocaltrol) 0.5 mcg PO Q12 [facility] Last Admin: 01/31/18 09:08 Dose: 0.5 mcg Cholecalciferol (Vitamin D) 1,000 intlu PO DAILY [facility] Last Admin: 01/31/18 09:08 Dose: 1,000 intlu Dextrose (Dextrose 50% Inj) 0 ml IV STAT PRN; Protocol PRN Reason: Hypoglycemia Protocol Dextrose (Glutose 15) 0 gm PO ONCE PRN; Protocol PRN Reason: Hypoglycemia Protocol Duloxetine HCl (Cymbalta) 20 mg PO Q12 [facility] Last Admin: 01/31/18 09:08 Dose: 20 mg Enalapril Maleate (Vasotec) 2.5 mg PO DAILY [facility] Last Admin: 01/31/18 09:08 Dose: 2.5 mg Escitalopram Oxalate (Lexapro) 10 mg PO DAILY [facility] Last Admin: 01/31/18 09:08 Dose: 10 mg Ferrous Sulfate (Feosol) 325 mg PO DAILY [facility] Last Admin: 01/31/18 09:09 Dose: 325 mg Glucagon (Glucagen Diagnostic Kit) 0 mg IM STAT PRN; Protocol PRN Reason: Hypoglycemia Protocol Home Med (Patient's Own Medication) 1 unit PO TID [facility] Last Admin: 01/31/18 09:09 Dose: 1 unit Hydrocortisone (Cortef) 10 mg PO HS [facility] Last Admin: 01/30/18 21:51 Dose: 10 mg Clindamycin Phosphate (Cleocin) 600 mg in 50 mls @ 50 mls/hr IVPB Q12 [facility]; Protocol Last Admin: 01/31/18 11:29 Dose: 50 mls/hr Ibuprofen (Motrin Tab) 600 mg PO Q8 PRN PRN Reason: Pain, moderate (4-7) Last Admin: 01/27/18 16:56 Dose: 600 mg Insulin Human Regular (Humulin R) 0 units SC ACHS [facility]; Protocol Last Admin: 01/31/18 08:00 Dose: 2 unit Lactobacillus Acidophilus (Bacid Acidophilus) 1 cap PO BID [facility] Last Admin: 01/31/18 09:08 Dose: 1 cap Levothyroxine Sodium (Synthroid) 50 mcg PO DAILY@0630 [facility] Last Admin: 01/31/18 06:27 Dose: 50 mcg Magnesium Oxide (Mag-Ox) 800 mg PO Q12 [facility] Last Admin: 01/31/18 09:08 Dose: 800 mg Nystatin (Nystop Topical Powder) 1 applic TOP TID [facility] Last Admin: 01/30/18 17:50 Dose: 1 units Torsemide (Demadex) 20 mg PO DAILY [facility] Last Admin: 01/30/18 09:45 Dose: 20 mg - Labs Labs: 01/30/18 09:22 01/31/18 06:25 PT 11.5 Seconds (9.8-13.1) 01/25/18 09:55 INR 1.0 01/25/18 09:55 APTT 33.5 Seconds (25.6-37.1) 01/25/18 09:55 - Constitutional Appears: Well, Non-toxic, No Acute Distress - Eye Exam Eye Exam: Normal appearance - ENT Exam ENT Exam: Mucous Membranes Moist - Neck Exam Neck Exam: Full ROM - Respiratory Exam Respiratory Exam: Clear to Ausculation Bilateral. absent: Rales, Wheezes - Cardiovascular Exam Cardiovascular Exam: REGULAR RHYTHM, +S1, +S2. absent: Murmur - GI/Abdominal Exam GI & Abdominal Exam: Soft, Normal Bowel Sounds. absent: Tenderness - Extremities Exam Extremities Exam: Full ROM, Normal Capillary Refill, Tenderness (Left leg tenderness on light touch (burning) up to knee). absent: Pedal Edema - Neurological Exam Neurological Exam: Alert, Oriented x3 - Psychiatric Exam Psychiatric exam: Normal Affect, Normal Mood - Skin Skin Exam: Normal Color Assessment and Plan - Assessment and Plan (Free Text) Assessment: 71 yo female with medical history significant for Multiple Myeloma, hx of multiple fx, IDDM, HTN, Pulmonary HTN, COPD on home O2 (3L NC) and CPAP, hx of PE s/p IVC filter (2014), GERD, Anxiety and depression admitted for hypomagnesemia of 0.8 and unilateral LE swelling/erythema (left). Plan: Hypomagnesemia - Magnesium 1.4 - Acute on chronic; may be secondary to large watery bowel movements in setting of chronic hx of low magnesium (chemotherapy side effect) - Increased mg to 800mg bid - Order another 1gm IV MgSO4 today - Has hx of torsades; no significant EKG findings on this admission, no changes from prior -Nephrology consulted for better management of magnesium levels; Dr. Nava - f/u [facility] tomorrow LE Swelling, likely cellulitis - Resolving - DVT ruled out; likely cellulitis vs stasis - Edema and erythema has improved after receiving IV antibiotics - LE Venous Duplex-- no thrombosis of poplitial, superficial or common femoral veins - Abdomen CT negative for thrombosis of iliac, inferior vena cava - Continue clindamycin IV Q12 - PT for gait stability and strengthening - Keep leg elevated - PT Evaluation today-will f/u recommendations for dispo planning -Srinivas stockings ordered Hyponatremia - Na 125 today, asymptomatic - Fluid restriction - F/U Serum osmolarity Peripheral Neuropathy - Leg pain characteristic of neuropathy -Currently taking Cymbalta 20mg BID; Will increase to 30mg BID. Careful consideration with dosing considering patient is on escitalopram as well. -TSH 9.38, may be subsequential to poor functioning thyroid -B12, Folate from 11/2017 normal Multiple Myeloma - 3.5mg IV Velcade MOFR -Will hold for hospital admission as per Heme/Onc, Dr. Vilchis. Pulmonary HTN - Continue Adempas TID, non formulary, pt's own med - No Cardiac symptoms COPD - Stable - On O2 3 L - CPAP at night DM - Medium Coverage Scale - Hypoglycemic protocol DVT ppx - Lovenox 40mg SQ daily Diet Diabetic Code FULL
[2018-02-01 05:57] LABS: BLOOD UREA NITROGEN 30 mg/dl (7-17); CALCIUM 9.4 mg/dL (8.4-10.2); GFR NON-AFRICAN AMERICAN 55
[2018-02-01] MEDS: Levothyroxine 75 MCG TAB PO SCH (06:16)
[2018-02-01] MEDS: Insulin Regular 100 units/ml SC SCH ×4 (07:45→21:52)
--- NOTE | 2018-02-01 08:21 | CP.PCM.CON ---
History of Present Illness - History of Present Illness History of Present Illness: 71 y/o female with pmhx significant for Multiple Myeloma, hx of multiple fx, IDDM, HTN, Pulmonary HTN, COPD on home O2 (3L NC) and CPAP, hx of PE s/p IVC filter (2014), GERD, Anxiety and depression, sent to ED due to severe hypomagnesemia on outpatient labs; nephrology being consulted for electrolyte abnormalities; Patient currently with daughter at bedside, able to give history herself; reports tolerating diet well, eating about 50% of it; denies any nausea/vomiting or diarrhea lately; reports urinating well, using bedside commode; able to ambulate with walker; denies any shortness of breath at rest; Patient's chemo was recent switched to velcade (previously on revlimid); Review of Systems - Constitutional Constitutional: absent: Anorexia - Cardiovascular Cardiovascular: absent: Chest Pain, Palpitations - Respiratory Respiratory: absent: Dyspnea - Gastrointestinal Gastrointestinal: As Per HPI - Genitourinary Genitourinary: As Per HPI. absent: Dysuria - Musculoskeletal Musculoskeletal: Back Pain - Integumentary Integumentary: absent: Pruritus - Neurological Neurological: absent: Dizziness Past Patient History - Infectious Disease Hx of Infectious Diseases: None - Tetanus Immunizations Tetanus Immunization: Unknown - Past Medical History & Family History Past Medical History?: Yes - Past Social History Smoking Status: Never Smoked - CARDIAC Hx Cardiac Disorders: Yes (pulm htn, CAD) Hx Congestive Heart Failure: Yes Hx Hypercholesterolemia: Yes Hx Hypertension: Yes - PULMONARY Hx Chronic Obstructive Pulmonary Disease (COPD): Yes (emphysema, asthma) - NEUROLOGICAL Hx Migraine: Yes Hx Parkinson's Disease: Yes - HEENT Hx Deafness: Yes - RENAL Hx Chronic Kidney Disease: No - ENDOCRINE/METABOLIC Hx Hypothyroidism: Yes - HEMATOLOGICAL/ONCOLOGICAL Hx Anemia: Yes Hx Human Immunodeficiency Virus (HIV): No - INTEGUMENTARY Hx Dermatological Problems: No - MUSCULOSKELETAL/RHEUMATOLOGICAL Hx Rheumatoid Arthritis: Yes - GASTROINTESTINAL Hx Gastrointestinal Disorders: No - GENITOURINARY/GYNECOLOGICAL Hx Genitourinary Disorders: Yes Hx Incontinence: Yes - PSYCHIATRIC Hx Anxiety: Yes Hx Depression: Yes - SURGICAL HISTORY Hx Cholecystectomy: Yes Hx Tonsillectomy: Yes - ANESTHESIA Hx Anesthesia: Yes Hx Anesthesia Reactions: Yes (Resp. Distress) Hx Malignant Hyperthermia: No Meds Allergies/Adverse Reactions: Allergies Allergy/AdvReac Type Severity Reaction Status Date / Time codeine AdvReac syncope, Verified 11/17/17 08:57 diaphoresis - Medications Medications: Current Medications Acetaminophen (Tylenol 325mg Tab) 650 mg PO Q6 PRN PRN Reason: Pain, Mild (1-3) Last Admin: 01/31/18 18:55 Dose: 650 mg Albuterol/Ipratropium (Duoneb 3 Mg/0.5 Mg (3 Ml) Ud) 3 ml INH RQ6 PRN PRN Reason: Wheezing Last Admin: 01/31/18 15:35 Dose: 3 ml Aripiprazole (Abilify) 2 mg PO HS [facility] Last Admin: 01/31/18 22:25 Dose: 2 mg Aspirin (Ecotrin) 81 mg PO DAILY [facility] Last Admin: 01/31/18 09:08 Dose: 81 mg Atorvastatin Calcium (Lipitor) 20 mg PO DAILY [facility] Last Admin: 01/31/18 09:08 Dose: 20 mg Benztropine Mesylate (Cogentin) 1 mg PO Q12 [facility] Last Admin: 01/31/18 22:25 Dose: 1 mg Bortezomib (Velcade) 3.5 mg IVP MOFR [facility] Buspirone HCl (Buspar) 10 mg PO Q12 [facility] Last Admin: 01/31/18 22:25 Dose: 10 mg Calcitriol (Rocaltrol) 0.5 mcg PO Q12 [facility] Last Admin: 01/31/18 22:25 Dose: 0.5 mcg Cholecalciferol (Vitamin D) 1,000 intlu PO DAILY [facility] Last Admin: 01/31/18 09:08 Dose: 1,000 intlu Dextrose (Dextrose 50% Inj) 0 ml IV STAT PRN; Protocol PRN Reason: Hypoglycemia Protocol Dextrose (Glutose 15) 0 gm PO ONCE PRN; Protocol PRN Reason: Hypoglycemia Protocol Duloxetine HCl (Cymbalta) 30 mg PO Q12 [facility] Last Admin: 01/31/18 22:26 Dose: 30 mg Enalapril Maleate (Vasotec) 2.5 mg PO DAILY [facility] Last Admin: 01/31/18 09:08 Dose: 2.5 mg Escitalopram Oxalate (Lexapro) 10 mg PO DAILY [facility] Last Admin: 01/31/18 09:08 Dose: 10 mg Ferrous Sulfate (Feosol) 325 mg PO DAILY [facility] Last Admin: 01/31/18 09:09 Dose: 325 mg Glucagon (Glucagen Diagnostic Kit) 0 mg IM STAT PRN; Protocol PRN Reason: Hypoglycemia Protocol Home Med (Patient's Own Medication) 1 unit PO TID [facility] Last Admin: 01/31/18 17:35 Dose: 1 unit Hydrocortisone (Cortef) 10 mg PO HS [facility] Last Admin: 01/31/18 22:25 Dose: 10 mg Clindamycin Phosphate (Cleocin) 600 mg in 50 mls @ 50 mls/hr IVPB Q12 [facility]; Protocol Last Admin: 01/31/18 21:25 Dose: 50 mls/hr Ibuprofen (Motrin Tab) 600 mg PO Q8 PRN PRN Reason: Pain, moderate (4-7) Last Admin: 01/27/18 16:56 Dose: 600 mg Insulin Human Regular (Humulin R) 0 units SC ACHS [facility]; Protocol Last Admin: 01/31/18 22:27 Dose: Not Given Lactobacillus Acidophilus (Bacid Acidophilus) 1 cap PO BID [facility] Last Admin: 01/31/18 17:37 Dose: 1 cap Levothyroxine Sodium (Synthroid) 75 mcg PO DAILY@0630 [facility] Last Admin: 02/01/18 06:16 Dose: 75 mcg Magnesium Oxide (Mag-Ox) 800 mg PO Q12 [facility] Last Admin: 01/31/18 22:27 Dose: 800 mg Nystatin (Nystop Topical Powder) 1 applic TOP TID [facility] Last Admin: 01/31/18 17:35 Dose: 1 applic Torsemide (Demadex) 20 mg PO DAILY [facility] Last Admin: 01/30/18 09:45 Dose: 20 mg Physical Exam - Constitutional Appears: Non-toxic, No Acute Distress - Eye Exam Eye Exam: Normal appearance - ENT Exam ENT Exam: Mucous Membranes Moist - Respiratory Exam Additional comments: extensive b/l rales; - Cardiovascular Exam Cardiovascular Exam: RRR, +S1, +S2. absent: Gallop, Rubs - GI/Abdominal Exam GI & Abdominal Exam: Soft. absent: Distended, Tenderness - Extremities Exam Additional comments: mild leg edema; - Neurological Exam Neurological exam: Alert, Oriented x3 - Psychiatric Exam Psychiatric exam: Normal Affect, Normal Mood - Skin Skin Exam: Normal Color, Warm Results - Vital Signs Recent Vital Signs: Last Vital Signs Temp 98.4 F 02/01/18 04:32 Pulse 84 02/01/18 04:32 Resp 16 02/01/18 04:32 BP 110/61 02/01/18 04:32 Pulse Ox 98 02/01/18 04:32 - Labs Result Diagrams: 01/30/18 09:22 02/01/18 04:25 Labs: Laboratory Results - last 24 hr 01/31/18 01/31/18 02/01/18 16:03 22:11 04:25 Sodium Potassium Chloride Carbon Dioxide Anion Gap BUN Creatinine Est GFR ( Amer) Est GFR (Non-Af Amer) POC Glucose (mg/dL) 140 H 134 H Random Glucose Serum Osmolality 274 Calcium Magnesium 02/01/18 02/01/18 04:25 05:58 Sodium 124 L Potassium 4.7 Chloride 84 L Carbon Dioxide 28 Anion Gap 17 BUN 30 H Creatinine 1.0 Est GFR ( Amer) > 60 Est GFR (Non-Af Amer) 55 POC Glucose (mg/dL) 151 H Random Glucose 157 H Serum Osmolality Calcium 9.4 Magnesium 1.5 L Assessment & Plan (1) Electrolyte abnormality Assessment and Plan: With hyponatremia, hypomagnesemia and history of hypocalcemia; hypomagnesemia much improved after IV and PO replenishment but still persists, likely due to renal Mag wasting while being on standing dose of long acting loop diuretic ( currently on hold); no GI losses as per patient; hyponatremia is slowly progressing as well, likely due to decreased effective arterial blood volume which may have been induced by diuretics but also possibility of worsening pulm htn; -Obtaining urine lytes (osm, Na, Mag, creat); -Patient instructed to decrease PO water intake by half (was drinking about 2L daily); -Agree with holding diuretics for now (but needs to be on it statistical assistant due to pulm htn and need to avoid RV overload; will hold off on giving IVF for this same reason); -Holding enalapril temporarily (to help maintain BP); -Continue bid dosing of Mag oxide (although at current dosing of 800 mg bid, GI side effects are likely); Status: Acute (2) CHF (congestive heart failure) Assessment and Plan: With diastolic dysfunction; appears stable; restart diuretics once electrolyte abnormalities stabilize; Status: Chronic Onset Date: 12/06/13 (3) Pulmonary hypertension Assessment and Plan: No significant edema on exam; need to ensure that patient continues to receive home med Adempas during admission; Status: Chronic
[2018-02-01] MEDS: ADEMPAS 2 MG PO SCH ×3 (09:46→17:24)
[2018-02-01] MEDS: Cholecalciferol 1,000 INTLU TAB PO SCH (09:51)
[2018-02-01] MEDS: Magnesium Oxide 400 mg Tab UD PO SCH ×2 (09:51→21:40)
[2018-02-01] MEDS: Lactobacillus Acidophilus 500 MU Cap PO SCH ×2 (09:53→17:32)
--- NOTE | 2018-02-01 10:54 | CP.PCM.PN ---
Subjective - Date & Time of Evaluation Date of Evaluation: 02/01/18 Time of Evaluation: 08:00 - Subjective Subjective: Clindamycin order noted to be changed by pharmacy staff from NS to [id number] piggybag. Medicine team not informed of this adjustment and patient's sodium now 124. Discussed this with pharmacy staff and re-ordered Clindamycin with NS. Informed RN that patient should be on fluid restriction. Pt was seen and examined this morning. Alert and oriented. Reports leg swelling improved but still feels burning sensation when touching leg. Objective - Vital Signs/Intake and Output Vital Signs (last 24 hours): Temp Pulse Resp BP Pulse Ox 97.9 F 79 20 116/54 L 100 02/01/18 08:23 02/01/18 08:23 02/01/18 08:23 02/01/18 08:23 02/01/18 08:23 - Medications Medications: Current Medications Acetaminophen (Tylenol 325mg Tab) 650 mg PO Q6 PRN PRN Reason: Pain, Mild (1-3) Last Admin: 01/31/18 18:55 Dose: 650 mg Albuterol/Ipratropium (Duoneb 3 Mg/0.5 Mg (3 Ml) Ud) 3 ml INH RQ6 PRN PRN Reason: Wheezing Last Admin: 01/31/18 15:35 Dose: 3 ml Aripiprazole (Abilify) 2 mg PO HS [facility] Last Admin: 01/31/18 22:25 Dose: 2 mg Aspirin (Ecotrin) 81 mg PO DAILY [facility] Last Admin: 02/01/18 09:52 Dose: 81 mg Atorvastatin Calcium (Lipitor) 20 mg PO DAILY [facility] Last Admin: 02/01/18 09:52 Dose: 20 mg Benztropine Mesylate (Cogentin) 1 mg PO Q12 [facility] Last Admin: 02/01/18 09:51 Dose: 1 mg Bortezomib (Velcade) 3.5 mg IVP MOFR [facility] Buspirone HCl (Buspar) 10 mg PO Q12 [facility] Last Admin: 02/01/18 09:45 Dose: 10 mg Calcitriol (Rocaltrol) 0.5 mcg PO Q12 [facility] Last Admin: 02/01/18 09:51 Dose: 0.5 mcg Cholecalciferol (Vitamin D) 1,000 intlu PO DAILY [facility] Last Admin: 02/01/18 09:51 Dose: 1,000 intlu Dextrose (Dextrose 50% Inj) 0 ml IV STAT PRN; Protocol PRN Reason: Hypoglycemia Protocol Dextrose (Glutose 15) 0 gm PO ONCE PRN; Protocol PRN Reason: Hypoglycemia Protocol Duloxetine HCl (Cymbalta) 30 mg PO Q12 [facility] Last Admin: 02/01/18 09:45 Dose: 30 mg Enalapril Maleate (Vasotec) 2.5 mg PO DAILY [facility] Last Admin: 01/31/18 09:08 Dose: 2.5 mg Escitalopram Oxalate (Lexapro) 10 mg PO DAILY [facility] Last Admin: 02/01/18 09:45 Dose: 10 mg Ferrous Sulfate (Feosol) 325 mg PO DAILY [facility] Last Admin: 02/01/18 09:45 Dose: 325 mg Glucagon (Glucagen Diagnostic Kit) 0 mg IM STAT PRN; Protocol PRN Reason: Hypoglycemia Protocol Home Med (Patient's Own Medication) 1 unit PO TID [facility] Last Admin: 02/01/18 09:46 Dose: 1 unit Hydrocortisone (Cortef) 10 mg PO HS [facility] Last Admin: 01/31/18 22:25 Dose: 10 mg Clindamycin Phosphate 600 mg/ (Sodium Chloride) 104 mls @ 104 mls/hr IVPB Q12 [facility]; Protocol Ibuprofen (Motrin Tab) 600 mg PO Q8 PRN PRN Reason: Pain, moderate (4-7) Last Admin: 01/27/18 16:56 Dose: 600 mg Insulin Human Regular (Humulin R) 0 units SC ACHS [facility]; Protocol Last Admin: 02/01/18 07:45 Dose: 2 unit Lactobacillus Acidophilus (Bacid Acidophilus) 1 cap PO BID [facility] Last Admin: 02/01/18 09:53 Dose: 1 cap Levothyroxine Sodium (Synthroid) 75 mcg PO DAILY@0630 [facility] Last Admin: 02/01/18 06:16 Dose: 75 mcg Magnesium Oxide (Mag-Ox) 800 mg PO Q12 [facility] Last Admin: 02/01/18 09:51 Dose: 800 mg Nystatin (Nystop Topical Powder) 1 applic TOP TID [facility] Last Admin: 02/01/18 09:44 Dose: 1 applic Torsemide (Demadex) 20 mg PO DAILY [facility] Last Admin: 01/30/18 09:45 Dose: 20 mg - Labs Labs: 01/30/18 09:22 02/01/18 04:25 PT 11.5 Seconds (9.8-13.1) 01/25/18 09:55 INR 1.0 01/25/18 09:55 APTT 33.5 Seconds (25.6-37.1) 01/25/18 09:55 - Constitutional Appears: Non-toxic, No Acute Distress - Head Exam Head Exam: NORMAL INSPECTION - Eye Exam Eye Exam: Normal appearance - ENT Exam ENT Exam: Mucous Membranes Moist - Respiratory Exam Respiratory Exam: Clear to Ausculation Bilateral. absent: Rales, Wheezes - Cardiovascular Exam Cardiovascular Exam: REGULAR RHYTHM. absent: Murmur - GI/Abdominal Exam GI & Abdominal Exam: Soft. absent: Distended, Tenderness - Extremities Exam Extremities Exam: Full ROM Additional comments: Left leg tenderness on light touch (burning) up to knee) - Neurological Exam Neurological Exam: Alert, Awake - Psychiatric Exam Psychiatric exam: Normal Affect - Skin Skin Exam: Normal Color Assessment and Plan - Assessment and Plan (Free Text) Assessment: 71 yo female with medical history significant for Multiple Myeloma, hx of multiple fx, IDDM, HTN, Pulmonary HTN, COPD on home O2 (3L NC) and CPAP, hx of PE s/p IVC filter (2014), GERD, Anxiety and depression admitted for hypomagnesemia of 0.8 and unilateral LE swelling/erythema (left). Plan: Hypomagnesemia - Magnesium 1.5 - Acute on chronic; unknown etiology - Increased mg to 800mg bid - Order another 1gm IV MgSO4 today - Has hx of torsades; no significant EKG findings on this admission, no changes from prior -Nephrology consulted for better management of magnesium levels; Dr. Nava, recommendations appreciated, diuretics held - f/u bmp tomorrow LE Swelling, likely cellulitis - Resolving - DVT ruled out; likely cellulitis vs stasis - Edema and erythema has improved after receiving IV antibiotics - LE Venous Duplex-- no thrombosis of poplitial, superficial or common femoral veins - Abdomen CT negative for thrombosis of iliac, inferior vena cava - Continue clindamycin IV Q12 - PT for gait stability and strengthening - Keep leg elevated - PT Evaluation today-will f/u recommendations for dispo planning -Srinivas stockings ordered Hyponatremia - Na 124 today, asymptomatic - Fluid restriction - F/U Serum osmolarity Peripheral Neuropathy - Leg pain characteristic of neuropathy - C/W Cymbalta 30mg BID. Careful consideration with dosing considering patient is on escitalopram as well. - TSH 9.38, may be subsequential to poor functioning thyroid. Levothyroxine increased rh37vhr daily. - B12, Folate from 11/2017 normal Multiple Myeloma - 3.5mg IV Velcade MOFR -Will hold for hospital admission as per Heme/Onc, Dr. Vilchis. Pulmonary HTN - Continue Adempas TID, non formulary, pt's own med - No Cardiac symptoms COPD - Stable - On O2 3 L - CPAP at night DM - Medium Coverage Scale - Hypoglycemic protocol DVT ppx - Lovenox 40mg SQ daily Diet Diabetic Code FULL
[2018-02-01] MEDS ORDERED: Magnesium Sulfate 1 gm in D5W 1 GM/100 ML BAG IVPB ONE (10:59)
[2018-02-01] MEDS: Clindamycin 600 MG in Sodium Chloride 0.9% 100 ML IVPB SCH ×2 (11:56→21:38)
[2018-02-01] MEDS ORDERED: Influenza Vaccine (5 YR UP)/PF 60 MCG/0.5 ML SYR IM ONE (12:16)
[2018-02-01] MEDS ORDERED: Tolvaptan 15 MG TAB PO ONE (20:02)
--- NOTE | 2018-02-01 20:03 | CP.PCM.PN ---
Subjective - Date & Time of Evaluation Date of Evaluation: 02/01/18 Time of Evaluation: 19:00 - Subjective Subjective: Patient tolerating diet, still only consuming about half of it; denies nausea/vomiting/diarrhea; breathing well; urinating well; has cut PO water intake to 1L per day; Objective - Vital Signs/Intake and Output Vital Signs (last 24 hours): Temp Pulse Resp BP Pulse Ox 97.5 F L 82 16 130/71 100 02/01/18 15:52 02/01/18 15:52 02/01/18 15:52 02/01/18 15:52 02/01/18 15:52 - Medications Medications: Current Medications Acetaminophen (Tylenol 325mg Tab) 650 mg PO Q6 PRN PRN Reason: Pain, Mild (1-3) Last Admin: 01/31/18 18:55 Dose: 650 mg Albuterol/Ipratropium (Duoneb 3 Mg/0.5 Mg (3 Ml) Ud) 3 ml INH RQ6 PRN PRN Reason: Wheezing Last Admin: 01/31/18 15:35 Dose: 3 ml Aripiprazole (Abilify) 2 mg PO HS [facility] Last Admin: 01/31/18 22:25 Dose: 2 mg Aspirin (Ecotrin) 81 mg PO DAILY [facility] Last Admin: 02/01/18 09:52 Dose: 81 mg Atorvastatin Calcium (Lipitor) 20 mg PO DAILY [facility] Last Admin: 02/01/18 09:52 Dose: 20 mg Benztropine Mesylate (Cogentin) 1 mg PO Q12 [facility] Last Admin: 02/01/18 09:51 Dose: 1 mg Bortezomib (Velcade) 3.5 mg IVP MOFR [facility] Buspirone HCl (Buspar) 10 mg PO Q12 [facility] Last Admin: 02/01/18 09:45 Dose: 10 mg Calcitriol (Rocaltrol) 0.5 mcg PO Q12 [facility] Last Admin: 02/01/18 09:51 Dose: 0.5 mcg Cholecalciferol (Vitamin D) 1,000 intlu PO DAILY [facility] Last Admin: 02/01/18 09:51 Dose: 1,000 intlu Dextrose (Dextrose 50% Inj) 0 ml IV STAT PRN; Protocol PRN Reason: Hypoglycemia Protocol Dextrose (Glutose 15) 0 gm PO ONCE PRN; Protocol PRN Reason: Hypoglycemia Protocol Duloxetine HCl (Cymbalta) 30 mg PO Q12 [facility] Last Admin: 02/01/18 09:45 Dose: 30 mg Enalapril Maleate (Vasotec) 2.5 mg PO DAILY [facility] Last Admin: 01/31/18 09:08 Dose: 2.5 mg Escitalopram Oxalate (Lexapro) 10 mg PO DAILY [facility] Last Admin: 02/01/18 09:45 Dose: 10 mg Ferrous Sulfate (Feosol) 325 mg PO DAILY [facility] Last Admin: 02/01/18 09:45 Dose: 325 mg Glucagon (Glucagen Diagnostic Kit) 0 mg IM STAT PRN; Protocol PRN Reason: Hypoglycemia Protocol Home Med (Patient's Own Medication) 1 unit PO TID [facility] Last Admin: 02/01/18 17:24 Dose: 1 unit Hydrocortisone (Cortef) 10 mg PO HS [facility] Last Admin: 01/31/18 22:25 Dose: 10 mg Clindamycin Phosphate 600 mg/ (Sodium Chloride) 104 mls @ 104 mls/hr IVPB Q12 [facility]; Protocol Last Admin: 02/01/18 11:56 Dose: 104 mls/hr Ibuprofen (Motrin Tab) 600 mg PO Q8 PRN PRN Reason: Pain, moderate (4-7) Last Admin: 01/27/18 16:56 Dose: 600 mg Influenza Virus Vaccine (Afluria Quad (Pf) [id number]) 60 mcg IM .ONCE ONE Stop: 02/01/18 12:17 Insulin Human Regular (Humulin R) 0 units SC ACHS [facility]; Protocol Last Admin: 02/01/18 17:32 Dose: Not Given Lactobacillus Acidophilus (Bacid Acidophilus) 1 cap PO BID [facility] Last Admin: 02/01/18 17:32 Dose: 1 cap Levothyroxine Sodium (Synthroid) 75 mcg PO DAILY@0630 [facility] Last Admin: 02/01/18 06:16 Dose: 75 mcg Magnesium Oxide (Mag-Ox) 800 mg PO Q12 [facility] Last Admin: 02/01/18 09:51 Dose: 800 mg Nystatin (Nystop Topical Powder) 1 applic TOP TID [facility] Last Admin: 02/01/18 17:24 Dose: 1 applic Tolvaptan (Samsca) 15 mg PO ONCE ONE Stop: 02/01/18 20:03 Torsemide (Demadex) 20 mg PO DAILY [facility] Last Admin: 01/30/18 09:45 Dose: 20 mg - Labs Labs: 01/30/18 09:22 02/01/18 04:25 PT 11.5 Seconds (9.8-13.1) 01/25/18 09:55 INR 1.0 01/25/18 09:55 APTT 33.5 Seconds (25.6-37.1) 01/25/18 09:55 - Constitutional Appears: Non-toxic, No Acute Distress - Eye Exam Eye Exam: Normal appearance - Respiratory Exam Respiratory Exam: absent: Rhonchi, Respiratory Distress Additional comments: extensive rales; - Cardiovascular Exam Cardiovascular Exam: RRR, +S1, +S2 - GI/Abdominal Exam GI & Abdominal Exam: Soft. absent: Distended, Tenderness - Extremities Exam Additional comments: increased lower leg edema, L > R; - Neurological Exam Neurological Exam: Alert, Awake - Psychiatric Exam Psychiatric exam: Normal Mood. absent: Agitated - Skin Skin Exam: Warm. absent: Cyanosis Assessment and Plan (1) Electrolyte abnormality Assessment & Plan: Hyponatremia continues to gradually worsen; as mentioned previously, patient has an ongoing stimulus for decreased effective arterial blood volume due to severe pulm htn that can drive hyponatremia; Hypomagnesemia slightly improved off diuretics but will need to restart given pulm htn; patient also on denosumab which is contributory; -still awaiting urine lytes as of this evening (finally collected per nursing staff) -giving dose of tolvaptan 15 mg this evening; repeating urine osm in am; -continue mag ox 800 mg bid; -continue PO fluid restriction <1.5L per day (will need to continue indefinite ly, even as outpatient); dose IV meds in NS as noted by primary team; Status: Acute (2) CHF (congestive heart failure) Assessment & Plan: Increasing leg edema in the setting of pulm htn and being off diuretics; will restart torsemide from tomorrow (can start with 10 mg as patient has preserved renal function); Status: Chronic (3) Pulmonary hypertension Status: Chronic
--- NOTE | 2018-02-01 21:03 | CP.PCM.CON ---
History of Present Illness - History of Present Illness History of Present Illness: Ms. 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 The patient notes to worsening left leg swelling over 3-4 weeks. Lower extremity venous duplex was negative for DVT. She has had chronic electrolyte issues which were felt to be related to Revlimid. This has been discontinued but her electrolytes issues persist. Past medical history: type II DM, hypertension, COPD, sleep apnea with pulmonary hypertension, multiple myeloma with lytic bone lesions. Past surgical history: None Family history: Denies hematologic and oncologic problems. Social history: Denies tobacco, alcohol, and illicit drug use. Allergies: Codeine. Review of systems: All remaining ROS including HEENT, cardiovascular, respiratory, gastrointestinal, genitourinary, musculoskeletal, dermatologic, neurologic, and psychiatric are negative unless mentioned in the HPI. Past Patient History - Infectious Disease Hx of Infectious Diseases: None - Tetanus Immunizations Tetanus Immunization: Unknown - Past Medical History & Family History Past Medical History?: Yes - Past Social History Smoking Status: Never Smoked - CARDIAC Hx Cardiac Disorders: Yes (pulm htn, CAD) Hx Congestive Heart Failure: Yes Hx Hypercholesterolemia: Yes Hx Hypertension: Yes - PULMONARY Hx Chronic Obstructive Pulmonary Disease (COPD): Yes (emphysema, asthma) - NEUROLOGICAL Hx Migraine: Yes Hx Parkinson's Disease: Yes - HEENT Hx Deafness: Yes - RENAL Hx Chronic Kidney Disease: No - ENDOCRINE/METABOLIC Hx Hypothyroidism: Yes - HEMATOLOGICAL/ONCOLOGICAL Hx Anemia: Yes Hx Human Immunodeficiency Virus (HIV): No - INTEGUMENTARY Hx Dermatological Problems: No - MUSCULOSKELETAL/RHEUMATOLOGICAL Hx Rheumatoid Arthritis: Yes - GASTROINTESTINAL Hx Gastrointestinal Disorders: No - GENITOURINARY/GYNECOLOGICAL Hx Genitourinary Disorders: Yes Hx Incontinence: Yes - PSYCHIATRIC Hx Anxiety: Yes Hx Depression: Yes - SURGICAL HISTORY Hx Cholecystectomy: Yes Hx Tonsillectomy: Yes - ANESTHESIA Hx Anesthesia: Yes Hx Anesthesia Reactions: Yes (Resp. Distress) Hx Malignant Hyperthermia: No Meds Allergies/Adverse Reactions: Allergies Allergy/AdvReac Type Severity Reaction Status Date / Time codeine AdvReac syncope, Verified 11/17/17 08:57 diaphoresis - Medications Medications: Current Medications Acetaminophen (Tylenol 325mg Tab) 650 mg PO Q6 PRN PRN Reason: Pain, Mild (1-3) Last Admin: 01/31/18 18:55 Dose: 650 mg Albuterol/Ipratropium (Duoneb 3 Mg/0.5 Mg (3 Ml) Ud) 3 ml INH RQ6 PRN PRN Reason: Wheezing Last Admin: 01/31/18 15:35 Dose: 3 ml Aripiprazole (Abilify) 2 mg PO HS [facility] Last Admin: 01/31/18 22:25 Dose: 2 mg Aspirin (Ecotrin) 81 mg PO DAILY [facility] Last Admin: 02/01/18 09:52 Dose: 81 mg Atorvastatin Calcium (Lipitor) 20 mg PO DAILY [facility] Last Admin: 02/01/18 09:52 Dose: 20 mg Benztropine Mesylate (Cogentin) 1 mg PO Q12 [facility] Last Admin: 02/01/18 09:51 Dose: 1 mg Bortezomib (Velcade) 3.5 mg IVP MOFR [facility] Buspirone HCl (Buspar) 10 mg PO Q12 [facility] Last Admin: 02/01/18 09:45 Dose: 10 mg Calcitriol (Rocaltrol) 0.5 mcg PO Q12 [facility] Last Admin: 02/01/18 09:51 Dose: 0.5 mcg Cholecalciferol (Vitamin D) 1,000 intlu PO DAILY [facility] Last Admin: 02/01/18 09:51 Dose: 1,000 intlu Dextrose (Dextrose 50% Inj) 0 ml IV STAT PRN; Protocol PRN Reason: Hypoglycemia Protocol Dextrose (Glutose 15) 0 gm PO ONCE PRN; Protocol PRN Reason: Hypoglycemia Protocol Duloxetine HCl (Cymbalta) 30 mg PO Q12 [facility] Last Admin: 02/01/18 09:45 Dose: 30 mg Enalapril Maleate (Vasotec) 2.5 mg PO DAILY [facility] Last Admin: 01/31/18 09:08 Dose: 2.5 mg Escitalopram Oxalate (Lexapro) 10 mg PO DAILY [facility] Last Admin: 02/01/18 09:45 Dose: 10 mg Ferrous Sulfate (Feosol) 325 mg PO DAILY [facility] Last Admin: 02/01/18 09:45 Dose: 325 mg Glucagon (Glucagen Diagnostic Kit) 0 mg IM STAT PRN; Protocol PRN Reason: Hypoglycemia Protocol Home Med (Patient's Own Medication) 1 unit PO TID [facility] Last Admin: 02/01/18 17:24 Dose: 1 unit Hydrocortisone (Cortef) 10 mg PO HS [facility] Last Admin: 01/31/18 22:25 Dose: 10 mg Clindamycin Phosphate 600 mg/ (Sodium Chloride) 104 mls @ 104 mls/hr IVPB Q12 [facility]; Protocol Last Admin: 02/01/18 11:56 Dose: 104 mls/hr Ibuprofen (Motrin Tab) 600 mg PO Q8 PRN PRN Reason: Pain, moderate (4-7) Last Admin: 01/27/18 16:56 Dose: 600 mg Influenza Virus Vaccine (Afluria Quad (Pf) [id number]) 60 mcg IM .ONCE ONE Stop: 02/01/18 12:17 Insulin Human Regular (Humulin R) 0 units SC ACHS [facility]; Protocol Last Admin: 02/01/18 17:32 Dose: Not Given Lactobacillus Acidophilus (Bacid Acidophilus) 1 cap PO BID [facility] Last Admin: 02/01/18 17:32 Dose: 1 cap Levothyroxine Sodium (Synthroid) 75 mcg PO DAILY@0630 [facility] Last Admin: 02/01/18 06:16 Dose: 75 mcg Magnesium Oxide (Mag-Ox) 800 mg PO Q12 [facility] Last Admin: 02/01/18 09:51 Dose: 800 mg Nystatin (Nystop Topical Powder) 1 applic TOP TID [facility] Last Admin: 02/01/18 17:24 Dose: 1 applic Tolvaptan (Samsca) 15 mg PO ONCE ONE Stop: 02/01/18 20:03 Torsemide (Demadex) 20 mg PO DAILY [facility] Last Admin: 01/30/18 09:45 Dose: 20 mg Physical Exam - Head Exam Head Exam: ATRAUMATIC - Eye Exam Eye Exam: Normal appearance - ENT Exam ENT Exam: Mucous Membranes Dry - Respiratory Exam Respiratory Exam: NORMAL BREATHING PATTERN - Cardiovascular Exam Cardiovascular Exam: +S1, +S2 - GI/Abdominal Exam GI & Abdominal Exam: Normal Bowel Sounds - Extremities Exam Extremities exam: Positive for: pedal edema - Neurological Exam Neurological exam: Oriented x3 - Psychiatric Exam Psychiatric exam: Normal Affect, Normal Mood - Skin Skin Exam: Warm Results - Vital Signs Recent Vital Signs: Last Vital Signs Temp 97.7 F 02/01/18 20:06 Pulse 98 H 02/01/18 20:06 Resp 18 02/01/18 20:06 BP 134/60 02/01/18 20:06 Pulse Ox 98 02/01/18 20:06 - Labs Result Diagrams: 01/30/18 09:22 02/01/18 04:25 Labs: Laboratory Results - last 24 hr 01/31/18 02/01/18 02/01/18 22:11 04:25 04:25 Sodium 124 L Potassium 4.7 Chloride 84 L Carbon Dioxide 28 Anion Gap 17 BUN 30 H Creatinine 1.0 Est GFR ( Amer) > 60 Est GFR (Non-Af Amer) 55 POC Glucose (mg/dL) 134 H Random Glucose 157 H Serum Osmolality 274 Calcium 9.4 Magnesium 1.5 L 02/01/18 02/01/18 02/01/18 05:58 10:45 16:11 Sodium Potassium Chloride Carbon Dioxide Anion Gap BUN Creatinine Est GFR ( Amer) Est GFR (Non-Af Amer) POC Glucose (mg/dL) 151 H 176 H 109 Random Glucose Serum Osmolality Calcium Magnesium Assessment & Plan (1) Anemia Assessment and Plan: secondary to multiple myeloma and chemotherapy H/H fairly stable Status: Resolved (2) Multiple myeloma Assessment and Plan: on Velcade and Xgeva outpatient treatment Thank you for this interesting consult. Status: Chronic
[2018-02-01 21:12] LABS: SQUAMOUS EPITHIAL < 1 /hpf (0-5); URINE BILIRUBIN NEGATIVE (NEGATIVE); URINE BLOOD NEGATIVE (NEGATIVE); URINE CLARITY CLEAR (Clear); URINE COLOR STRAW (YELLOW); URINE GLUCOSE (UA) NEG (Normal); URINE LEUKOCYTE ESTERASE NEG Leu/uL (Negative); URINE PROTEIN NEGATIVE (NEGATIVE); URINE UROBILINOGEN 0.2-1.0 mg/dL (0.2-1.0)
[2018-02-02 06:11] LABS: BLOOD UREA NITROGEN 30 mg/dl (7-17); CALCIUM 9.8 mg/dL (8.4-10.2); GFR NON-AFRICAN AMERICAN > 60
[2018-02-02] MEDS: Levothyroxine 75 MCG TAB PO SCH (06:21)
[2018-02-02] MEDS: Clindamycin 600 MG in Sodium Chloride 0.9% 100 ML IVPB SCH (08:36)
[2018-02-02] MEDS: Cholecalciferol 1,000 INTLU TAB PO SCH (08:40)
[2018-02-02] MEDS: Magnesium Oxide 400 mg Tab UD PO SCH ×2 (08:40→20:23)
[2018-02-02] MEDS: Insulin Regular 100 units/ml SC SCH ×4 (08:41→21:04)
[2018-02-02] MEDS: ADEMPAS 2 MG PO SCH ×3 (08:41→16:53)
[2018-02-02] MEDS: Lactobacillus Acidophilus 500 MU Cap PO SCH ×2 (08:48→16:54)
--- NOTE | 2018-02-02 16:00 | CP.PCM.PN ---
Subjective - Date & Time of Evaluation Date of Evaluation: 02/02/18 Time of Evaluation: 09:00 - Subjective Subjective: Seen and examined this morning with Dr. Neumann at the bedside. Pt denies any complaints. Reports leg pain and swelling is improved. Discussed goals for addressing patient's electrolyte imbalances. Pt is participating with physical therapy. Reinforced po fluid restriction with patient. Objective - Vital Signs/Intake and Output Vital Signs (last 24 hours): Temp Pulse Resp BP Pulse Ox 97.4 F L 90 18 127/74 100 02/02/18 11:54 02/02/18 11:54 02/02/18 11:54 02/02/18 11:54 02/02/18 11:54 - Medications Medications: Current Medications Acetaminophen (Tylenol 325mg Tab) 650 mg PO Q6 PRN PRN Reason: Pain, Mild (1-3) Last Admin: 02/01/18 22:32 Dose: 650 mg Albuterol/Ipratropium (Duoneb 3 Mg/0.5 Mg (3 Ml) Ud) 3 ml INH RQ6 PRN PRN Reason: Wheezing Last Admin: 01/31/18 15:35 Dose: 3 ml Aripiprazole (Abilify) 2 mg PO HS [facility] Last Admin: 02/01/18 21:39 Dose: 2 mg Aspirin (Ecotrin) 81 mg PO DAILY [facility] Last Admin: 02/02/18 08:39 Dose: 81 mg Atorvastatin Calcium (Lipitor) 20 mg PO DAILY [facility] Last Admin: 02/02/18 08:40 Dose: 20 mg Benztropine Mesylate (Cogentin) 1 mg PO Q12 [facility] Last Admin: 02/02/18 08:38 Dose: 1 mg Bortezomib (Velcade) 3.5 mg IVP MOFR [facility] Buspirone HCl (Buspar) 10 mg PO Q12 [facility] Last Admin: 02/02/18 08:38 Dose: 10 mg Calcitriol (Rocaltrol) 0.5 mcg PO Q12 [facility] Last Admin: 02/02/18 08:41 Dose: 0.5 mcg Cholecalciferol (Vitamin D) 1,000 intlu PO DAILY [facility] Last Admin: 02/02/18 08:40 Dose: 1,000 intlu Clindamycin HCl (Cleocin) 300 mg PO Q6 [facility]; Protocol Dextrose (Dextrose 50% Inj) 0 ml IV STAT PRN; Protocol PRN Reason: Hypoglycemia Protocol Dextrose (Glutose 15) 0 gm PO ONCE PRN; Protocol PRN Reason: Hypoglycemia Protocol Duloxetine HCl (Cymbalta) 30 mg PO Q12 [facility] Last Admin: 02/02/18 08:40 Dose: 30 mg Enalapril Maleate (Vasotec) 2.5 mg PO DAILY [facility] Last Admin: 01/31/18 09:08 Dose: 2.5 mg Escitalopram Oxalate (Lexapro) 10 mg PO DAILY [facility] Last Admin: 02/02/18 08:40 Dose: 10 mg Ferrous Sulfate (Feosol) 325 mg PO DAILY [facility] Last Admin: 02/02/18 08:39 Dose: 325 mg Gabapentin (Neurontin) 100 mg PO TID [facility] Last Admin: 02/02/18 12:57 Dose: 100 mg Glucagon (Glucagen Diagnostic Kit) 0 mg IM STAT PRN; Protocol PRN Reason: Hypoglycemia Protocol Home Med (Patient's Own Medication) 1 unit PO TID [facility] Last Admin: 02/02/18 12:58 Dose: 1 unit Hydrocortisone (Cortef) 10 mg PO HS [facility] Last Admin: 02/01/18 21:40 Dose: 10 mg Ibuprofen (Motrin Tab) 600 mg PO Q8 PRN PRN Reason: Pain, moderate (4-7) Last Admin: 01/27/18 16:56 Dose: 600 mg Insulin Human Regular (Humulin R) 0 units SC [facility]; Protocol Last Admin: 02/02/18 12:56 Dose: Not Given Lactobacillus Acidophilus (Bacid Acidophilus) 1 cap PO BID [facility] Last Admin: 02/02/18 08:48 Dose: 1 cap Levothyroxine Sodium (Synthroid) 75 mcg PO DAILY@0630 [facility] Last Admin: 02/02/18 06:21 Dose: 75 mcg Magnesium Oxide (Mag-Ox) 800 mg PO Q12 [facility] Last Admin: 02/02/18 08:40 Dose: 800 mg Nystatin (Nystop Topical Powder) 1 applic TOP TID [facility] Last Admin: 02/02/18 14:34 Dose: Not Given Torsemide (Demadex) 10 mg PO DAILY [facility] Last Admin: 02/02/18 09:50 Dose: 10 mg - Labs Labs: 01/30/18 09:22 02/02/18 04:35 PT 11.5 Seconds (9.8-13.1) 01/25/18 09:55 INR 1.0 01/25/18 09:55 APTT 33.5 Seconds (25.6-37.1) 01/25/18 09:55 - Constitutional Appears: Non-toxic, No Acute Distress - Head Exam Head Exam: NORMAL INSPECTION - Eye Exam Eye Exam: Normal appearance - ENT Exam ENT Exam: Mucous Membranes Moist - Neck Exam Neck Exam: Full ROM. absent: Lymphadenopathy - Respiratory Exam Respiratory Exam: Clear to Ausculation Bilateral, Rales (scatterd). absent: Accessory Muscle Use, Decreased Breath Sounds, Wheezes - Cardiovascular Exam Cardiovascular Exam: REGULAR RHYTHM, +S1, +S2. absent: Murmur - GI/Abdominal Exam GI & Abdominal Exam: Soft, Normal Bowel Sounds. absent: Tenderness - Extremities Exam Extremities Exam: Normal Capillary Refill, Pedal Edema (L>R, imrpoved from admission), Tenderness (mild, diffuse on left leg up to knee). absent: Calf Tenderness - Neurological Exam Neurological Exam: Alert, Awake, Oriented x3 - Psychiatric Exam Psychiatric exam: Normal Affect - Skin Skin Exam: Normal Color Assessment and Plan - Assessment and Plan (Free Text) Assessment: 71 yo female with medical history significant for Multiple Myeloma, hx of multiple fx, IDDM, HTN, Pulmonary HTN, COPD on home O2 (3L NC) and CPAP, hx of PE s/p IVC filter (2014), GERD, Anxiety and depression admitted for hypo magnesemia of 0.8 and unilateral LE swelling/erythema (left). Plan: Hyponatremia - Na 125 today, asymptomatic -Nephrology consulted for better management of electrolyte levels; Discussed case with Dr. Nava who raised concerns of water retention secondary to severe pulmonary HTN which may be driving hyponatremia. Tolvaptan 15mg given yesterday and Torsemide 10 given today. - F/u repeat osmolality and BMP. - C/W Fluid restriction, <1L/day Hypomagnesemia - Magnesium 1.6, improved - Acute on chronic; unknown etiology - Mg Oxide 800mg BID LE Swelling, likely cellulitis - Resolving - DVT ruled out; likely cellulitis vs stasis - Edema and erythema has improved after receiving IV antibiotics - LE Venous Duplex-- no thrombosis of poplitial, superficial or common femoral veins - Abdomen CT negative for thrombosis of iliac, inferior vena cava - Clindamycin IV changed to po today - PT for gait stability and strengthening - Keep leg elevated -Srinivas stockings Peripheral Neuropathy - Leg pain characteristic of neuropathy - C/W Cymbalta 30mg BID. Careful consideration with dosing considering patient is on escitalopram as well. - Started on Gabapentin 100mg TID - TSH 9.38, may be subsequential to poor functioning thyroid. - B12, Folate from 11/2017 normal Hypothyroidsim -TSH: 9.38 while on Levothyroxine 50mg -Levothyroxine increased [id number] daily. Multiple Myeloma - 3.5mg IV Velcade MOFR -Will hold for hospital admission as per Heme/Onc, Dr. Vilchis. Pulmonary HTN - Continue Adempas TID, non formulary, pt's own med - No Cardiac symptoms - Restarted diuretics today COPD - Stable - On O2 3 L - CPAP at night DM - Medium Coverage Scale - Hypoglycemic protocol DVT ppx - Lovenox 40mg SQ daily Diet Diabetic Code FULL
[2018-02-02 19:13] LABS: BLOOD UREA NITROGEN 28 mg/dl (7-17); CALCIUM 10.3 mg/dL (8.4-10.2); GFR NON-AFRICAN AMERICAN 55
[2018-02-02] MEDS ORDERED: Tolvaptan 15 MG TAB PO ONE (23:23)
--- NOTE | 2018-02-02 23:24 | CP.PCM.PN ---
Subjective - Date & Time of Evaluation Date of Evaluation: 02/02/18 Time of Evaluation: 19:00 - Subjective Subjective: Patient reports feeling well; ambulated with PT earlier today; no sob; tolerating diet, appetite still not back to normal; no vomiting/diarrhea; urination increased significantly; reports consuming one and a half pitcher's of water today; Objective - Vital Signs/Intake and Output Vital Signs (last 24 hours): Temp Pulse Resp BP Pulse Ox 97.8 F 90 18 104/64 97 02/02/18 19:58 02/02/18 23:20 02/02/18 19:58 02/02/18 19:58 02/02/18 19:58 - Medications Medications: Current Medications Acetaminophen (Tylenol 325mg Tab) 650 mg PO Q6 PRN PRN Reason: Pain, Mild (1-3) Last Admin: 02/01/18 22:32 Dose: 650 mg Albuterol/Ipratropium (Duoneb 3 Mg/0.5 Mg (3 Ml) Ud) 3 ml INH RQ6 PRN PRN Reason: Wheezing Last Admin: 01/31/18 15:35 Dose: 3 ml Aripiprazole (Abilify) 2 mg PO HS [facility] Last Admin: 02/02/18 21:00 Dose: 2 mg Aspirin (Ecotrin) 81 mg PO DAILY [facility] Last Admin: 02/02/18 08:39 Dose: 81 mg Atorvastatin Calcium (Lipitor) 20 mg PO DAILY [facility] Last Admin: 02/02/18 08:40 Dose: 20 mg Benztropine Mesylate (Cogentin) 1 mg PO Q12 [facility] Last Admin: 02/02/18 20:23 Dose: 1 mg Bortezomib (Velcade) 3.5 mg IVP MOFR [facility] Buspirone HCl (Buspar) 10 mg PO Q12 [facility] Last Admin: 02/02/18 20:22 Dose: 10 mg Calcitriol (Rocaltrol) 0.5 mcg PO Q12 [facility] Last Admin: 02/02/18 20:24 Dose: 0.5 mcg Cholecalciferol (Vitamin D) 1,000 intlu PO DAILY [facility] Last Admin: 02/02/18 08:40 Dose: 1,000 intlu Clindamycin HCl (Cleocin) 300 mg PO Q6 [facility]; Protocol Last Admin: 02/02/18 21:00 Dose: 300 mg Dextrose (Dextrose 50% Inj) 0 ml IV STAT PRN; Protocol PRN Reason: Hypoglycemia Protocol Dextrose (Glutose 15) 0 gm PO ONCE PRN; Protocol PRN Reason: Hypoglycemia Protocol Duloxetine HCl (Cymbalta) 30 mg PO Q12 [facility] Last Admin: 02/02/18 20:23 Dose: 30 mg Enalapril Maleate (Vasotec) 2.5 mg PO DAILY [facility] Last Admin: 01/31/18 09:08 Dose: 2.5 mg Enoxaparin Sodium (Lovenox) 40 mg SC DAILY [facility]; Protocol Escitalopram Oxalate (Lexapro) 10 mg PO DAILY [facility] Last Admin: 02/02/18 08:40 Dose: 10 mg Ferrous Sulfate (Feosol) 325 mg PO DAILY [facility] Last Admin: 02/02/18 08:39 Dose: 325 mg Gabapentin (Neurontin) 100 mg PO TID [facility] Last Admin: 02/02/18 16:55 Dose: 100 mg Glucagon (Glucagen Diagnostic Kit) 0 mg IM STAT PRN; Protocol PRN Reason: Hypoglycemia Protocol Home Med (Patient's Own Medication) 1 unit PO TID [facility] Last Admin: 02/02/18 16:53 Dose: 1 unit Hydrocortisone (Cortef) 10 mg PO HS [facility] Last Admin: 02/02/18 21:01 Dose: 10 mg Ibuprofen (Motrin Tab) 600 mg PO Q8 PRN PRN Reason: Pain, moderate (4-7) Last Admin: 01/27/18 16:56 Dose: 600 mg Insulin Human Regular (Humulin R) 0 units SC ACHS [facility]; Protocol Last Admin: 02/02/18 21:04 Dose: Not Given Lactobacillus Acidophilus (Bacid Acidophilus) 1 cap PO BID [facility] Last Admin: 02/02/18 16:54 Dose: 1 cap Levothyroxine Sodium (Synthroid) 75 mcg PO DAILY@0630 [facility] Last Admin: 02/02/18 06:21 Dose: 75 mcg Magnesium Oxide (Mag-Ox) 800 mg PO Q12 [facility] Last Admin: 02/02/18 20:23 Dose: 800 mg Nystatin (Nystop Topical Powder) 1 applic TOP TID [facility] Last Admin: 02/02/18 16:52 Dose: 1 applic Tolvaptan (Samsca) 15 mg PO ONCE ONE Stop: 02/02/18 23:24 Torsemide (Demadex) 10 mg PO DAILY [facility] Last Admin: 02/02/18 09:50 Dose: 10 mg - Labs Labs: 01/30/18 09:22 02/02/18 18:30 PT 11.5 Seconds (9.8-13.1) 01/25/18 09:55 INR 1.0 01/25/18 09:55 APTT 33.5 Seconds (25.6-37.1) 01/25/18 09:55 - Constitutional Appears: Non-toxic, No Acute Distress - Eye Exam Eye Exam: Normal appearance - Respiratory Exam Respiratory Exam: Rales. absent: Rhonchi, Respiratory Distress - Cardiovascular Exam Cardiovascular Exam: RRR, +S1, +S2. absent: Gallop, Rubs - GI/Abdominal Exam GI & Abdominal Exam: Soft. absent: Distended, Tenderness - Extremities Exam Additional comments: moderate lower leg edema L > R, slightly improved; - Neurological Exam Neurological Exam: Alert, Awake - Psychiatric Exam Psychiatric exam: Normal Mood. absent: Agitated - Skin Skin Exam: Warm. absent: Cyanosis Assessment and Plan (1) Electrolyte abnormality Assessment & Plan: Hyponatremia slightly improved after giving dose of tolvaptan 15 mg last night and restarting torsemide 10 mg this morning; repeat urine osm ordered but not yet collected (should have dropped with tolvaptan); Hyponatremia secondary to increased ADH release/activity as indicated by elevated urine osm (263 before giving tolvaptan); likely due to hemodynamic effect of pulm htn (decreased effective aterial blood volume) although cannot rule out cannot rule out mild SIADH; not primary polydipsia in which urine osm is much lower and patients typically consume enormous amounts of fluids (eg. 10 L daily); -Re-dosing tolvaptan 15 mg this evening; -Mainstay of treatment is adequate free water/fluid restriction; -Avoid dosing IV meds in D5W; -Avoid excessive NSAIDS use as they can potentiate the effect of ADH; -Continue torsemide 10 mg daily; Status: Acute (2) Pulmonary hypertension Assessment & Plan: Continue torsemide 10 mg nair as above; continue adempas; Status: Chronic (3) CHF (congestive heart failure) Status: Chronic
[2018-02-03 05:11] VITALS: RESP 18
[2018-02-03] MEDS: Levothyroxine 75 MCG TAB PO SCH (05:32)
[2018-02-03 06:11] LABS: HEMOGLOBIN 10.5 g/dL (12.0-16.0); MEAN CELL VOLUME 87.3 fl (81.0-99.0); MEAN CORPUSCULAR HGB CONC 33.3 g/dL (33.0-37.0); RBC 3.61 Mil/uL (3.80-5.20); RED CELL DISTRIBUTION WIDTH 17.5 % (11.5-14.5); WHITE BLOOD COUNT 4.6 K/uL (4.8-10.8)
[2018-02-03 06:31] LABS: BLOOD UREA NITROGEN 30 mg/dl (7-17); CALCIUM 11.1 mg/dL (8.4-10.2); GFR NON-AFRICAN AMERICAN 55
[2018-02-03] MEDS: Magnesium Oxide 400 mg Tab UD PO SCH (08:57)
[2018-02-03] MEDS: ADEMPAS 2 MG PO SCH ×2 (08:58→13:00)
[2018-02-03] MEDS: Insulin Regular 100 units/ml SC SCH ×2 (08:59→12:59)
[2018-02-03] MEDS ORDERED: Enoxaparin 40 mg Syringe SC SCH (09:00)
[2018-02-03] MEDS: Lactobacillus Acidophilus 500 MU Cap PO SCH (09:02)
--- NOTE | 2018-02-03 11:38 | CP.PCM.PN ---
Objective - Vital Signs/Intake and Output Vital Signs (last 24 hours): Temp Pulse Resp BP Pulse Ox 97.4 F L 87 18 121/63 97 02/03/18 08:09 02/03/18 09:00 02/03/18 08:09 02/03/18 08:09 02/03/18 08:09 - Medications Medications: Current Medications Acetaminophen (Tylenol 325mg Tab) 650 mg PO Q6 PRN PRN Reason: Pain, Mild (1-3) Last Admin: 02/03/18 05:34 Dose: 650 mg Albuterol/Ipratropium (Duoneb 3 Mg/0.5 Mg (3 Ml) Ud) 3 ml INH RQ6 PRN PRN Reason: Wheezing Last Admin: 01/31/18 15:35 Dose: 3 ml Aripiprazole (Abilify) 2 mg PO HS [facility] Last Admin: 02/02/18 21:00 Dose: 2 mg Aspirin (Ecotrin) 81 mg PO DAILY [facility] Last Admin: 02/03/18 08:57 Dose: 81 mg Atorvastatin Calcium (Lipitor) 20 mg PO DAILY [facility] Last Admin: 02/03/18 08:57 Dose: 20 mg Benztropine Mesylate (Cogentin) 1 mg PO Q12 [facility] Last Admin: 02/03/18 08:59 Dose: 1 mg Bortezomib (Velcade) 3.5 mg IVP MOFR [facility] Buspirone HCl (Buspar) 10 mg PO Q12 [facility] Last Admin: 02/03/18 08:56 Dose: 10 mg Clindamycin HCl (Cleocin) 300 mg PO Q6 [facility]; Protocol Last Admin: 02/03/18 09:06 Dose: 300 mg Dextrose (Dextrose 50% Inj) 0 ml IV STAT PRN; Protocol PRN Reason: Hypoglycemia Protocol Dextrose (Glutose 15) 0 gm PO ONCE PRN; Protocol PRN Reason: Hypoglycemia Protocol Duloxetine HCl (Cymbalta) 30 mg PO Q12 [facility] Last Admin: 02/03/18 08:59 Dose: 30 mg Enalapril Maleate (Vasotec) 2.5 mg PO DAILY [facility] Last Admin: 01/31/18 09:08 Dose: 2.5 mg Enoxaparin Sodium (Lovenox) 40 mg SC DAILY [facility]; Protocol Last Admin: 02/03/18 10:42 Dose: 40 mg Escitalopram Oxalate (Lexapro) 10 mg PO DAILY [facility] Last Admin: 02/03/18 08:57 Dose: 10 mg Ferrous Sulfate (Feosol) 325 mg PO DAILY [facility] Last Admin: 02/03/18 08:57 Dose: 325 mg Gabapentin (Neurontin) 100 mg PO TID [facility] Last Admin: 02/03/18 08:56 Dose: 100 mg Glucagon (Glucagen Diagnostic Kit) 0 mg IM STAT PRN; Protocol PRN Reason: Hypoglycemia Protocol Home Med (Patient's Own Medication) 1 unit PO TID [facility] Last Admin: 02/03/18 08:58 Dose: 1 unit Hydrocortisone (Cortef) 10 mg PO HS [facility] Last Admin: 02/02/18 21:01 Dose: 10 mg Ibuprofen (Motrin Tab) 600 mg PO Q8 PRN PRN Reason: Pain, moderate (4-7) Last Admin: 01/27/18 16:56 Dose: 600 mg Insulin Human Regular (Humulin R) 0 units SC ACHS [facility]; Protocol Last Admin: 02/03/18 08:59 Dose: 2 unit Lactobacillus Acidophilus (Bacid Acidophilus) 1 cap PO BID [facility] Last Admin: 02/03/18 09:02 Dose: 1 cap Levothyroxine Sodium (Synthroid) 75 mcg PO DAILY@0630 [facility] Last Admin: 02/03/18 05:32 Dose: 75 mcg Magnesium Oxide (Mag-Ox) 800 mg PO Q12 [facility] Last Admin: 02/03/18 08:57 Dose: 800 mg Nystatin (Nystop Topical Powder) 1 applic TOP TID [facility] Last Admin: 02/03/18 08:58 Dose: 1 applic Torsemide (Demadex) 10 mg PO DAILY [facility] Last Admin: 02/03/18 08:58 Dose: 10 mg - Labs Labs: 02/03/18 04:20 02/03/18 04:20 PT 11.5 Seconds (9.8-13.1) 01/25/18 09:55 INR 1.0 01/25/18 09:55 APTT 33.5 Seconds (25.6-37.1) 01/25/18 09:55
[2018-02-03 12:05] VITALS: BP 102/63; PULSE 86; TEMP 97.5; O2SAT 98
--- NOTE | 2018-02-03 15:33 | CP.PCM.DIS ---
Provider - Provider Date of Admission: 01/26/18 17:40 Attending physician: David Neumann MD Consults: 01/26/18 12:08 Wound Care [Nursing Referral for Wound Care] Routine Comment: Physician Instructions: Reason For Exam: Redness under right breast and in right groin 01/31/18 12:49 Hematology Oncology Consult Routine Comment: Consulting Provider: Luis Eduardo Vilchis Consulting Physician: Luis Eduardo Vilchis Reason for Consult: Pt w/ Multiple Myeloma, on Velcade Mon and Fri 01/31/18 13:06 Nephrology Consult Routine Comment: Consulting Provider: Yoan Nava Consulting Physician: Yoan Nava Reason for Consult: Hx of Multiple Myeloma; Hypomagnesia Time Spent in preparation of Discharge (in minutes): 35 Diagnosis - Discharge Diagnosis (1) Hypomagnesemia Status: Resolved (2) Leg edema Status: Resolved Hospital Course - Lab Results Lab Results: Most Recent Lab Values WBC 4.6 K/uL (4.8-10.8) L 02/03/18 04:20 RBC 3.61 Mil/uL (3.80-5.20) L 02/03/18 04:20 Hgb 10.5 g/dL (12.0-16.0) L 02/03/18 04:20 Hct 31.5 % (34.0-47.0) L 02/03/18 04:20 MCV 87.3 fl (81.0-99.0) D 02/03/18 04:20 MCH 29.0 pg (27.0-31.0) 02/03/18 04:20 MCHC 33.3 g/dL (33.0-37.0) 02/03/18 04:20 RDW 17.5 % (11.5-14.5) H 02/03/18 04:20 Plt Count 237 K/uL (130-400) 02/03/18 04:20 MPV 8.6 fl (7.2-11.7) 01/28/18 04:20 Neut % (Auto) 66.6 % (50.0-75.0) 01/28/18 04:20 Lymph % (Auto) 12.3 % (20.0-40.0) L 01/28/18 04:20 [place] % (Auto) 18.4 % (0.0-10.0) H 01/28/18 04:20 Eos % (Auto) 2.5 % (0.0-4.0) 01/28/18 04:20 Baso % (Auto) 0.2 % (0.0-2.0) 01/28/18 04:20 Neut # (Auto) 2.6 K/uL (1.8-7.0) 01/28/18 04:20 Lymph # (Auto) 0.5 K/uL (1.0-4.3) L 01/28/18 04:20 [place] # (Auto) 0.7 K/uL (0.0-0.8) 01/28/18 04:20 Eos # (Auto) 0.1 K/uL (0.0-0.7) 01/28/18 04:20 Baso # (Auto) 0.0 K/uL (0.0-0.2) 01/28/18 04:20 ESR 12 mm/hr (0-30) 01/25/18 20:30 PT 11.5 Seconds (9.8-13.1) 01/25/18 09:55 INR 1.0 01/25/18 09:55 APTT 33.5 Seconds (25.6-37.1) 01/25/18 09:55 Sodium 130 mmol/l (132-148) L 02/03/18 04:20 Potassium 5.0 MMOL/L (3.6-5.0) 02/03/18 04:20 Chloride 90 mmol/L (98-107) L 02/03/18 04:20 Carbon Dioxide 30 mmol/L (22-30) 02/03/18 04:20 Anion Gap 15 (10-20) 02/03/18 04:20 BUN 30 mg/dl (7-17) H 02/03/18 04:20 Creatinine 1.0 mg/dl (0.7-1.2) 02/03/18 04:20 Est GFR ( Amer) > 60 02/03/18 04:20 Est GFR (Non-Af Amer) 55 02/03/18 04:20 POC Glucose (mg/dL) 178 mg/dL (65-110) H 02/03/18 11:06 Random Glucose 164 mg/dL (65-105) H 02/03/18 04:20 Serum Osmolality 274 mosm/kg (272-300) 02/01/18 04:25 Calcium 11.1 mg/dL (8.4-10.2) H 02/03/18 04:20 Phosphorus 4.2 mg/dl (2.5-4.5) 01/30/18 09:22 Magnesium 1.6 MG/DL (1.6-2.3) 02/03/18 04:20 Total Bilirubin 0.6 mg/dl (0.2-1.3) 01/30/18 09:22 AST 46 U/L (14-36) H D 01/30/18 09:22 ALT 31 U/L (9-52) 01/30/18 09:22 Alkaline Phosphatase 76 U/L (38-126) 01/30/18 09:22 Troponin I 0.0140 ng/mL (0.00-0.120) 01/25/18 09:55 NT-Pro-B Natriuret Pep 585 pg/ml (0-900) 01/25/18 09:55 Total Protein 7.5 G/DL (6.3-8.2) 01/30/18 09:22 Albumin 4.2 g/dL (3.5-5.0) 01/30/18 09:22 Globulin 3.3 gm/dL (2.2-3.9) 01/30/18 09:22 Albumin/Globulin Ratio 1.3 (1.0-2.1) 01/30/18 09:22 Procalcitonin < 0.05 NG/ML (0.19-0.49) L 01/25/18 20:30 TSH 3rd Generation 9.38 mIU/ML (0.46-4.68) H 01/26/18 12:25 Urine Color Straw (YELLOW) 02/01/18 20:30 Urine Clarity Clear (Clear) 02/01/18 20:30 Urine pH 7.0 (5.0-8.0) 02/01/18 20:30 Ur Specific [place] 1.008 (1.003-1.030) 02/01/18 20:30 Urine Protein Negative mg/dL (NEGATIVE) 02/01/18 20:30 Urine Glucose (UA) Neg mg/dL (Normal) 02/01/18 20:30 Urine Ketones Negative mg/dL (NEGATIVE) 02/01/18 20:30 Urine Blood Negative (NEGATIVE) 02/01/18 20:30 Urine Nitrate Negative (NEGATIVE) 02/01/18 20:30 Urine Bilirubin Negative (NEGATIVE) 02/01/18 20:30 Urine Urobilinogen 0.2-1.0 mg/dL (0.2-1.0) 02/01/18 20:30 Ur Leukocyte Esterase Neg Maggie/uL (Negative) 02/01/18 20:30 Urine RBC (Auto) < 1 /hpf (0-3) 02/01/18 20:30 Urine Microscopic WBC 1 /hpf (0-5) 02/01/18 20:30 Ur Squamous Epith Cells < 1 /hpf (0-5) 02/01/18 20:30 Urine Osmolality 263 mosm/kg (300-1000) L 02/01/18 20:30 Ur Random Creatinine 39.0 mg/dL 02/01/18 20:30 Ur Random Sodium 28 mmol/L 02/01/18 20:30 Urine Chloride 25 mmol/L (32-290) L 02/01/18 20:30 Urine Magnesium 9.6 mg/dL 02/01/18 20:30 - Hospital Course Hospital Course: 71 yo female with medical history significant for Multiple Myeloma, hx of multiple fx, IDDM, HTN, Pulmonary HTN, COPD on home O2 (3L NC) and CPAP, hx of PE s/p IVC filter (2014), GERD, Anxiety and depression admitted for hypomagnesemia of 0.8 and unilateral LE swelling/erythema. She was repleted with IV Magnesium Sulfate and eventually her home magnesium oxide dosage was increased. Her magnesium levels became stable at 1.5-1.6 during the remainder of her time. She also become hyponatremic (124) and the patient was advised to limit her po fluid intake as she was noted to be drinking large amounts of water. Community Liaison Officer, Dr. Nava, was consulted to assist with management of her electrolytes. She was given Tolvaptan and placed on po water restriction and her sodium improved. Her LE swelling was characteristic of stasis with cellulitis so she was treated with IV Clindamycin for 7 days and the patient had significant improvement. She was also started on Neurontin as she ws complaining of neuropathic pain in her lower extremities. Dr. Vilchis was aware of patient's admission and advised holding her chemotherapy sessions. On day of discharge, pt's electrolyte imbalances were significantly improved, and she was cleared for discharged by Dr. Nava and Dr. Neumann. Pt was given RX to get lab tests completed on 02/07 (CMP, TSH, MG). Pt was advised to follow up with Dr. Vilchis for chemotherapy tomorrow, Dr. Neumann in 1 week, and Electronic Technologist, Dr. Johnson for evaluation and treatment of LE stasis. Medication adjustements: -Discontinue Levothyroxine 50mcg daily -Start Levothyroxine 75mcg daily -Start Neurontin 100mg TID -Discontinue Cymbalta 20mg BID -Start Cymbalta 30mg BID -Discontinue Slow Mag 2 tablets -Start Magnesium Oxide 800mg BID Remainder of medication regimen to remain the same [facility] was called to review adjust medications with pharmacist. Discharge Exam - Head Exam Head Exam: NORMAL INSPECTION - Eye Exam Eye Exam: Normal appearance - ENT Exam ENT Exam: Mucous Membranes Moist - Respiratory Exam Respiratory Exam: Clear to PA & Lateral. absent: Rales, Wheezes - Cardiovascular Exam Cardiovascular Exam: REGULAR RHYTHM - GI/Abdominal Exam GI & Abdominal Exam: Normal Bowel Sounds, Soft. absent: Guarding - Extremities Exam Extremities exam: normal capillary refill, pedal edema (trace, no redness, calf tenderness homans negative) - Neurological Exam Neurological exam: Alert, Oriented x3 - Psychiatric Exam Psychiatric exam: Normal Affect - Skin Skin Exam: Normal Color Discharge Plan - Discharge Medications Prescriptions: DULoxetine [Cymbalta] 30 mg PO Q12 30 Days #60 ecc Gabapentin [Neurontin] 100 mg PO TID 30 Days #90 capsule Levothyroxine [Synthroid] 75 mcg PO DAILY@0630 30 Days #30 tab Magnesium Oxide [Mag-Ox] 800 mg PO Q12 30 Days #60 tab - Follow Up Plan Condition: FAIR Disposition: HOME/ ROUTINE Instructions: Dependent Edema (DC), Low Magnesium Level (DC) Additional Instructions: follow up with in 1 week follow up with tomorrow for infusion blood work to be done on 02/07/18 Referrals: Vaibhav Johnson DPM [Staff Provider] - Luis Eduardo Vilchis MD [Staff Provider] - Yoan Nava MD [Staff Provider] - David Neumann MD [Family Provider] -
--- NOTE | 2018-02-03 21:05 | CP.PCM.PN ---
Subjective - Date & Time of Evaluation Date of Evaluation: 02/02/18 Time of Evaluation: 19:00 - Subjective Subjective: Feeling better. Objective - Vital Signs/Intake and Output Vital Signs (last 24 hours): Temp Pulse Resp BP Pulse Ox 97.5 F L 86 18 102/63 98 02/03/18 12:05 02/03/18 12:05 02/03/18 12:05 02/03/18 12:05 02/03/18 12:05 - Labs Labs: 02/03/18 04:20 02/03/18 04:20 PT 11.5 Seconds (9.8-13.1) 01/25/18 09:55 INR 1.0 01/25/18 09:55 APTT 33.5 Seconds (25.6-37.1) 01/25/18 09:55 - Head Exam Head Exam: ATRAUMATIC - Eye Exam Eye Exam: Normal appearance - ENT Exam ENT Exam: Mucous Membranes Dry - Respiratory Exam Respiratory Exam: NORMAL BREATHING PATTERN - Cardiovascular Exam Cardiovascular Exam: +S1, +S2 - GI/Abdominal Exam GI & Abdominal Exam: Normal Bowel Sounds Assessment and Plan (1) Anemia Assessment & Plan: multiple myeloma chronic disease Status: Resolved (2) Multiple myeloma Assessment & Plan: outpatient treatment Status: Chronic
== END 2018-02-03 14:40 | disposition home or self-care (01) | DRG 641 ==
LOC: H.ER 08:38 → H.ERHOLD 14:52 → H.TEL 16:26 → OBSVTOIN 01-26 17:40
PROVIDERS: ADMIT Family Medicine; ATTEND Family Medicine
DX: E83.42 Hypomagnesemia (principal); L03.116 Cellulitis of left lower limb; C90.00 Multiple myeloma not having achieved remission; I50.32 Chronic diastolic (congestive) heart failure; E87.1 Hypo-osmolality and hyponatremia; G20 Parkinson's disease; I27.20 Pulmonary hypertension, unspecified; I11.0 Hypertensive heart disease with heart failure; E03.9 Hypothyroidism, unspecified; E78.00 Pure hypercholesterolemia, unspecified; J43.9 Emphysema, unspecified; G47.30 Sleep apnea, unspecified; I25.10 Atherosclerotic heart disease of native coronary artery without angina pectoris; K21.9 Gastro-esophageal reflux disease without esophagitis; M06.9 Rheumatoid arthritis, unspecified; M79.7 Fibromyalgia; Z79.4 Long term (current) use of insulin; Z79.82 Long term (current) use of aspirin; Z86.711 Personal history of pulmonary embolism; Z86.718 Personal history of other venous thrombosis and embolism; Z99.81 Dependence on supplemental oxygen; F41.9 Anxiety disorder, unspecified; F32.9 Major depressive disorder, single episode, unspecified; Z88.6 Allergy status to analgesic agent; D63.0 Anemia in neoplastic disease; D64.81 Anemia due to antineoplastic chemotherapy; T45.1X5A Adverse effect of antineoplastic and immunosuppressive drugs, initial encounter; E11.42 Type 2 diabetes mellitus with diabetic polyneuropathy

== ENCOUNTER 2018-03-10 11:14 | Inpatient (IN) | payer MEDICARE, OTHER ==
[2018-03-10] MEDS ORDERED: Albuterol-Ipratrop 3 mg / 0.5 (3 ml) UD INH STA (14:51)
--- NOTE | 2018-03-10 14:52 | ED PDOC ---
History of Present Illness History of Present Illness: 72 y/o female h/o COPD/Asthma/CA/cardiac arrest x 2 here with sob and ongoing cough x 1 month. Denies any fevers/chills. No chest pain. Denies any change of medications. HPI: Influenza Time Seen by Provider: 03/10/18 14:54 Chief Complaint: Cough, Cold, Congestion Chief Complaint (Provider): cough History Per: Patient (72 y/o female h/o COPD/asthma on home O2 2liters NC with ongoing cough x 1 month and difficulty breathing. Denies any fevers/chills. ) Past Medical History Reviewed: Historical Data, Nursing Documentation, Vital Signs Vital Signs: Last Vital Signs Temp 98.1 F 03/10/18 12:43 Pulse 99 H 03/10/18 12:43 Resp 16 03/10/18 12:43 BP 123/74 03/10/18 12:43 Pulse Ox 90 L 03/10/18 12:43 - Medical History PMH: Anemia, Anxiety, Arthritis, Asthma, CAD, CHF, COPD (emphysema, asthma), Depression, Diabetes, Deep Vein Thrombosis, Emphysema, Fibromyalgia, Fractures, GERD, HTN, Hypercholesterolemia, Hypothyroidism, Migraine, Parkinson's Disease, Pneumonia, Pulmonary Embolism, Rheumatoid Arthritis, Sleep Apnea Denies: HIV, Chronic Kidney Disease - Surgical History Surgical History: Cholecystectomy, Endoscopy, Tonsillectomy - Family History Family History: States: Unknown Family Hx, Diabetes - Home Medications Home Medications: Ambulatory Orders Medication Instructions Recorded Aspirin [Ecotrin] 81 mg PO DAILY 03/05/17 Enalapril Maleate [Vasotec] 2.5 mg PO DAILY 03/05/17 clonazePAM [Klonopin] 0.5 mg PO DAILY PRN 03/05/17 ARIPiprazole [Abilify] 2 mg PO HS 05/11/17 Hydrocortisone [Cortef] 10 mg PO HS 05/11/17 Omeprazole 20 mg PO DAILY 05/11/17 Riociguat [Adempas] 2 mg PO TID 11/17/17 Ferrous Sulfate [Feosol] 325 mg PO DAILY tab 11/22/17 Atorvastatin [Lipitor] 20 mg PO DAILY 12/18/17 Benztropine [Cogentin] 1 mg PO Q12 12/18/17 Bortezomib [Velcade] 3.5 mg IV MOFR 12/18/17 Duloxetine HCl 20 mg PO Q12 12/18/17 Escitalopram [Lexapro] 10 mg PO DAILY 12/18/17 Albuterol/Ipratropium [Duoneb 3 3 ml INH RQ6 PRN neb 12/22/17 mg/0.5 mg (3 ml) UD] Torsemide [Demadex] 20 mg PO DAILY tab 12/22/17 metFORMIN [glucOPHAGE] 500 mg PO BID 30 Days #60 tab 12/22/17 Calcitriol [Rocaltrol] 0.5 mcg PO Q12 01/25/18 Cholecalciferol [Vitamin D 1000 IU] 1,000 unit PO DAILY 01/25/18 Insulin Detemir [Levemir] 20 units SC HS 01/25/18 Insulin Lispro [humALOG] 5 unit SC TID 01/25/18 busPIRone [Buspar] 10 mg PO Q12 01/25/18 DULoxetine [Cymbalta] 30 mg PO Q12 30 Days #60 ecc 02/03/18 Gabapentin [Neurontin] 100 mg PO TID 30 Days #90 capsule 02/03/18 Levothyroxine [Synthroid] 75 mcg PO DAILY@0630 30 Days #30 02/03/18 tab Magnesium Oxide [Mag-Ox] 800 mg PO Q12 30 Days #60 tab 02/03/18 Saliva Stimulant Agents Comb.2 45 ml MM DAILY 30 Days #1 randy 02/03/18 [Biotene Oral Balance 44.3 ml] - Allergies Allergies/Adverse Reactions: Allergies Allergy/AdvReac Type Severity Reaction Status Date / Time codeine AdvReac syncope, Verified 03/10/18 12:43 diaphoresis Review of Systems ROS Statement: Except As Marked, All Systems Reviewed And Found Negative Physical Exam - Reviewed Nursing Documentation Reviewed: Yes Vital Signs Reviewed: Yes - Physical Exam Appears: Positive for: Well, Non-toxic, No Acute Distress Head Exam: Positive for: ATRAUMATIC, NORMAL INSPECTION, NORMOCEPHALIC Skin: Positive for: Normal Color, Warm, DRY Eye Exam: Positive for: EOMI, Normal appearance, PERRL ENT: Positive for: Normal ENT Inspection Neck: Positive for: Normal, Painless ROM Cardiovascular/Chest: Positive for: Regular Rate, Rhythm Respiratory: Positive for: Normal Breath Sounds, Wheezing Gastrointestinal/Abdominal: Positive for: Normal Exam, Soft Back: Positive for: Normal Inspection Extremity: Positive for: Normal ROM Neurologic/Psych: Positive for: Alert, Oriented - Laboratory Results Result Diagrams: 03/10/18 15:40 03/10/18 15:40 - ECG O2 Sat by Pulse Oximetry: 90 - Progress ED Course And Treament: EKG: NSR 88BPM; T WAVE INV V1-V5 CXR:IMPRESSION: Improving infiltrates (chronic) without complete resolution. Follow-up CT should be considered SOLUMEDROL 125 MG IV X 1 DOSE DUONEB X 1 DOSE MG NOTED 0.9 2GM MG SULFATE ORDERED. CT CHEST ORDERED. D/W DR. HERNANDEZ Disposition - Clinical Impression Clinical Impression: COPD (chronic obstructive pulmonary disease), Hypomagnesemia - Patient ED Disposition Is Patient to be Admitted: Yes - Disposition Disposition Time: 18:49 Condition: FAIR - Pt Status Changed To: Hospital Disposition Of: Observation
[2018-03-10] MEDS ORDERED: Albuterol-Ipratrop 3 mg / 0.5 (3 ml) UD ONE (15:36)
[2018-03-10 16:03] LABS: BASO % 0.3 % (0.0-2.0); EOS # 0.1 K/uL (0.0-0.7); EOS % 1.3 % (0.0-4.0); HEMOGLOBIN 11.1 g/dL (12.0-16.0); LYMPH # 0.6 K/uL (1.0-4.3); LYMPH % 10.2 % (20.0-40.0); MEAN CELL VOLUME 87.8 fl (81.0-99.0); MEAN PLATELET VOLUME 8.3 fl (7.2-11.7); MONO # 0.9 K/uL (0.0-0.8); MONO % 16.3 % (0.0-10.0); NEUT % 71.9 % (50.0-75.0); RBC 3.82 Mil/uL (3.80-5.20); RED CELL DISTRIBUTION WIDTH 17.9 % (11.5-14.5); WHITE BLOOD COUNT 5.5 K/uL (4.8-10.8)
[2018-03-10 16:21] LABS: ALB/GLOB RATIO 1.1 (1.0-2.1); ALBUMIN 4.1 g/dL (3.5-5.0); ALT/SGPT 32 U/L (9-52); AST/SGOT 48 U/L (14-36); B-TYPE NATRIURETIC PEPTIDE 4400 pg/ml (0-900); BLOOD UREA NITROGEN 21 mg/dl (7-17); CALCIUM 9.7 mg/dL (8.4-10.2); GFR NON-AFRICAN AMERICAN > 60
[2018-03-10] MEDS ORDERED: Magnesium Sulfate 2 gm/50 ml 2 GM/50 ML BAG IVPB ONE (16:26)
--- NOTE | 2018-03-10 16:57 | RAD ---
Date of service: 03/10/2018 HISTORY: Cough COMPARISON: 12/18/2017 FINDINGS: LUNGS: Interval improvement without complete resolution of previously identified infiltrates. PLEURA: No significant pleural effusion identified, no pneumothorax apparent. CARDIOVASCULAR: Cardiomegaly. No evidence of acute, significant cardiovascular disease. Atherosclerotic calcifications identified primarily aortic arch. OSSEOUS STRUCTURES: No significant abnormalities. VISUALIZED UPPER ABDOMEN: Normal. OTHER FINDINGS: None. IMPRESSION: Improving infiltrates (chronic) without complete resolution. Follow-up CT should be considered
[2018-03-10] MEDS ORDERED: Magnesium Sulfate 2 gm/50 ml 2 GM/50 ML BAG ONE (17:37)
--- NOTE | 2018-03-10 20:09 | CP.PCM.HP ---
History of Present Illness - History of Present Illness History of Present Illness: 72 yo F with pmhx of multiple myeloma, DM, HTN, COPD, pulmonary htn, depresion, barrets esophagus presents with sob. She reports increasingly SOB for the past month, starting with an URTI. She notices that she requires her home BIPAP more often. She has tried her home meds, however, it has not alleviated her symptoms. She reports increased tiredness. Of note, she reports increased swelling of bilateral lower extremities. PMD: Dr. Neumann Surg: none Soc: denies: smoking, alcohol, illicit drugs Fam: none Allergy: Codeine Present on Admission - Present on Admission Any Indicators Present on Admission: Yes History of Uncontrolled Diabetes: Yes Urinary Catheter: No Review of Systems - Cardiovascular Cardiovascular: absent: Chest Pain, Chest Pain at Rest - Respiratory Respiratory: Cough, Dyspnea, Chest Congestion - Gastrointestinal Gastrointestinal: absent: Abdominal Pain Past Patient History - Infectious Disease Hx of Infectious Diseases: None - Tetanus Immunizations Tetanus Immunization: Unknown - Past Medical History & Family History Past Medical History?: Yes - Past Social History Smoking Status: Never Smoked Alcohol: None Drugs: Denies - CARDIAC Hx Congestive Heart Failure: Yes Hx Hypercholesterolemia: Yes Hx Hypertension: Yes - PULMONARY Hx Asthma: Yes Hx Chronic Obstructive Pulmonary Disease (COPD): Yes (emphysema, asthma) Hx Emphysema: Yes Hx Pneumonia: Yes Hx Pulmonary Embolism: Yes Hx Sleep Apnea: Yes - NEUROLOGICAL Hx Migraine: Yes Hx Parkinson's Disease: Yes - HEENT Hx Deafness: Yes - RENAL Hx Chronic Kidney Disease: No - ENDOCRINE/METABOLIC Hx Hypothyroidism: Yes - HEMATOLOGICAL/ONCOLOGICAL Hx Anemia: Yes Hx Human Immunodeficiency Virus (HIV): No - INTEGUMENTARY Hx Dermatological Problems: No - MUSCULOSKELETAL/RHEUMATOLOGICAL Hx Arthritis: Yes Hx Fractures: Yes Hx Rheumatoid Arthritis: Yes - GASTROINTESTINAL Hx Gastrointestinal Disorders: No - GENITOURINARY/GYNECOLOGICAL Hx Genitourinary Disorders: Yes Hx Incontinence: Yes - PSYCHIATRIC Hx Anxiety: Yes Hx Depression: Yes - SURGICAL HISTORY Hx Cholecystectomy: Yes Hx Tonsillectomy: Yes - ANESTHESIA Hx Anesthesia: Yes Hx Anesthesia Reactions: Yes (Resp. Distress) Hx Malignant Hyperthermia: No Meds Allergies/Adverse Reactions: Allergies Allergy/AdvReac Type Severity Reaction Status Date / Time codeine AdvReac syncope, Verified 03/10/18 12:43 diaphoresis Physical Exam - Constitutional Appears: No Acute Distress - Eye Exam Eye Exam: EOMI - ENT Exam ENT Exam: Mucous Membranes Moist - Respiratory Exam Respiratory Exam: Rales, Rhonchi, Wheezes - Cardiovascular Exam Cardiovascular Exam: +S1, +S2 - GI/Abdominal Exam GI & Abdominal Exam: Normal Bowel Sounds, Soft. absent: Tenderness - Extremities Exam Extremities exam: Positive for: pedal edema, pedal pulses present. Negative for: calf tenderness, tenderness - Neurological Exam Neurological exam: Alert, CN II-XII Intact, Oriented x3 - Psychiatric Exam Psychiatric exam: Normal Affect, Normal Mood Results - Vital Signs Recent Vital Signs: Last Vital Signs Temp 98.1 F 03/10/18 12:43 Pulse 99 H 03/10/18 12:43 Resp 16 03/10/18 12:43 BP 123/74 03/10/18 12:43 Pulse Ox 90 L 03/10/18 19:09 - Labs Result Diagrams: 03/10/18 15:40 03/10/18 15:40 Labs: Laboratory Results - last 24 hr 03/10/18 03/10/18 15:40 15:40 WBC 5.5 RBC 3.82 Hgb 11.1 L Hct 33.6 L MCV 87.8 MCH 29.0 MCHC 33.0 RDW 17.9 H Plt Count 250 MPV 8.3 Neut % (Auto) 71.9 Lymph % (Auto) 10.2 L [place] % (Auto) 16.3 H Eos % (Auto) 1.3 Baso % (Auto) 0.3 Neut # (Auto) 4.0 Lymph # (Auto) 0.6 L [place] # (Auto) 0.9 H Eos # (Auto) 0.1 Baso # (Auto) 0.0 Sodium 133 Potassium 3.6 Chloride 92 L Carbon Dioxide 29 Anion Gap 16 BUN 21 H Creatinine 0.9 Est GFR ( Amer) > 60 Est GFR (Non-Af Amer) > 60 Random Glucose 97 Calcium 9.7 Magnesium 0.9 L* D Total Bilirubin 0.9 AST 48 H ALT 32 Alkaline Phosphatase 87 Troponin I 0.0150 NT-Pro-B Natriuret Pep 4400 H Total Protein 7.6 Albumin 4.1 Globulin 3.6 Albumin/Globulin Ratio 1.1 Assessment & Plan - Assessment and Plan (Free Text) Assessment: 72 yo F with pmhx of multiple myeloma, DM, HTN, COPD, pulmonary htn, depresion, barrets esophagus admitted for COPD exacerbation. Plan: COPD exacerbation CXR: Improving infiltrates s/p Methylprednisolone c/w home meds lasix po 20mg f/u CT chest HypoMagnesium 0.9 s/p Mg sulfate 2 gm f/u mg levels in am CHF BNP: 4400 Multiple Myeloma Heme/Onc: Patient of Dr. Vilchis c/w home meds If bone pain, will image DM c/w home meds accuchecks ISS HTN c/w home meds monitor vitals PT/OT Pt ambulates with walker, unsteady Case dw Dr. Thien Boss MD PGY2
[2018-03-10] MEDS ORDERED: Albuterol-Ipratrop 3 mg / 0.5 (3 ml) UD INH PRN (22:33)
[2018-03-10] MEDS ORDERED: Dextrose 50% SYRINGE Inj (50 ml) IV PRN (23:30)
[2018-03-10] MEDS ORDERED: Dextrose 50% SYRINGE Inj (50 ml) IVP PRN (23:30)
[2018-03-10] MEDS ORDERED: Glucagon Recombinant 1 mg Inj IM PRN (23:30)
[2018-03-11 06:56] LABS: HEMOGLOBIN 10.8 g/dL (12.0-16.0); MEAN CELL VOLUME 88.9 fl (81.0-99.0); MEAN CORPUSCULAR HEMOGLOBIN 28.6 pg (27.0-31.0); MEAN CORPUSCULAR HGB CONC 32.1 g/dL (33.0-37.0); RBC 3.77 Mil/uL (3.80-5.20); RED CELL DISTRIBUTION WIDTH 17.8 % (11.5-14.5); WHITE BLOOD COUNT 5.5 K/uL (4.8-10.8)
[2018-03-11 07:09] LABS: ALB/GLOB RATIO 1.1 (1.0-2.1); ALBUMIN 3.8 g/dL (3.5-5.0); ALT/SGPT 27 U/L (9-52); AST/SGOT 38 U/L (14-36); BLOOD UREA NITROGEN 20 mg/dl (7-17); CALCIUM 9.3 mg/dL (8.4-10.2); GFR NON-AFRICAN AMERICAN > 60
[2018-03-11] MEDS: Insulin Detemir 100 Units/ml Inj SC SCH ×2 (07:20→21:38)
[2018-03-11] MEDS ORDERED: methylPREDNISolone 60 MG in Sodium Chloride 0.9% 50 ML IVPB SCH (09:00)
[2018-03-11] MEDS: Levothyroxine 75 MCG TAB PO SCH (09:16)
[2018-03-11] MEDS ORDERED: Insulin Regular 100 units/ml ONE ×2 (09:16→12:27)
[2018-03-11] MEDS: Insulin Lispro (humaLOG) 100 Units/ml Inj SC SCH ×2 (09:20→16:28)
[2018-03-11] MEDS: Insulin Regular 100 units/ml SC SCH ×4 (09:24→21:40)
[2018-03-11] MEDS ORDERED: Magnesium Sulfate 2 gm/50 ml 2 GM/50 ML BAG IVPB ONE (10:46)
[2018-03-11] MEDS: Cholecalciferol 1,000 INTLU TAB PO SCH (10:55)
[2018-03-11] MEDS: Albuterol-Ipratrop 3 mg / 0.5 (3 ml) UD INH SCH ×2 (11:23→18:59)
--- NOTE | 2018-03-11 11:39 | CT ---
Date of service: 03/10/2018 PROCEDURE: CT Chest without contrast HISTORY: abnl cxr h/o resolving infilrate COMPARISON: Chest CT with contrast 12/18/2017. TECHNIQUE: Contiguous axial images were obtained through the chest without intravenous contrast enhancement. Sagittal and coronal reconstructions were performed. Radiation dose: Total exam DLP = 605.07 mGy-cm. This CT exam was performed using one or more of the following dose reduction techniques: Automated exposure control, adjustment of the mA and/or kV according to patient size, and/or use of iterative reconstruction technique. FINDINGS: LUNGS: There is no acute infiltrate bilaterally. There is definitive bronchiectasis identified at the right lower lobe medial basilar subsegment however. Central airways are otherwise clear and unremarkable appearing. This pattern may be postinflammatory though other etiologies are possible but no definite fibrotic changes are related and therefore this is not a traction bronchiectasis. Further clinical correlation is recommended. MEDIASTINUM: Unremarkable thoracic aorta. No aneurysm. Normal sized heart. Main pulmonary segment is dilated to 3.8 cm which may indicate pulmonary artery hypertension. Clinically correlate further. No vascular congestion. Mild mediastinal lymphadenopathy is appreciate including a 1.7 x 1.1 cm inferior right paratracheal lymph node. Trace pericardial thickening or effusion is identified. [id number] cardiomegaly is identified with atherosclerotic coronary artery disease evident. Calcific atherosclerotic changes are seen related to the thoracic aorta. Finally, the esophagus is distended with retained food. Consider potential achalasia, gross reflux or distal esophageal obstruction. PLEURA: No pleural fluid. No pneumothorax. BONES: No fracture. No destructive lesion. UPPER ABDOMEN: Small hepatic granuloma suggested once again. Chronic mild compression fracture T5 as well as moderate compression fracture T12 reiterated. OTHER FINDINGS: None. IMPRESSION: 1. No acute infiltrate bilaterally. Mild right lower lobe subsegmental bronchiectasis identified. 2. No suspicious for pulmonary artery hypertension. Clinically correlate. 3. The esophagus is distended with retained food. Consider GI consultation if not already evaluated. 4. Stable chronic compression fractures T5 and T12. Discordant preliminary report from [facility] (no pulmonary vascular congestion, vertebral body compression fractures T-spine different levels as above), 03/10/2018 6:28 p.m..
--- NOTE | 2018-03-11 12:56 | US ---
Date of service: 03/11/2018 PROCEDURE: Bilateral lower extremity venous duplex Doppler. HISTORY: swelling COMPARISON: None available. TECHNIQUE: Bilateral common femoral, superficial femoral, popliteal and posterior tibial veins were evaluated. Flow was assessed with color Doppler, compressibility, assessment of phasic flow and augmentation response. FINDINGS: COMMON FEMORAL VEIN: Right CFV: Unremarkable. Left CFV: Unremarkable. SUPERFICIAL FEMORAL VEIN: Right SFV: Unremarkable. Left SFV: Unremarkable. POPLITEAL VEIN: Right Popliteal: Unremarkable. Left Popliteal: Unremarkable. POSTERIOR TIBIAL VEIN: Right PTV: Unremarkable. Left PTV: Unremarkable. OTHER FINDINGS: None. IMPRESSION: No evidence of deep venous thrombosis.
--- NOTE | 2018-03-11 14:44 | CARD ---
APPROVED REPORT Date of service: 03/10/2018 EKG Measurement Heart [id number] <Conclusion> Normal sinus rhythm Possible Left atrial enlargement T wave abnormality, consider anterior ischemia Prolonged QT Abnormal ECG
[2018-03-11 15:07] VITALS: BMI 35.9
--- NOTE | 2018-03-11 15:27 | CP.PCM.PN ---
Subjective - Date & Time of Evaluation Date of Evaluation: 03/11/18 Time of Evaluation: 09:30 - Subjective Subjective: Patient seen and examined at bedside, sitting up in stretcher in no acute distress. Reports wheezing and SOB persists, alleviated by O2 supplementation. Reports bilateral LE pain. Tolerating PO diet. Objective - Vital Signs/Intake and Output Vital Signs (last 24 hours): Temp Pulse Resp BP Pulse Ox 98.7 F 96 H 20 129/68 93 L 03/11/18 14:50 03/11/18 14:50 03/11/18 14:50 03/11/18 14:50 03/11/18 14:50 - Medications Medications: Current Medications Albuterol/Ipratropium (Duoneb 3 Mg/0.5 Mg (3 Ml) Ud) 3 ml INH RQ6 [facility] Last Admin: 03/11/18 11:23 Dose: 3 ml Aripiprazole (Abilify) 2 mg PO HS [facility] Last Admin: 03/11/18 07:20 Dose: Not Given Aspirin (Ecotrin) 81 mg PO DAILY [facility] Last Admin: 03/11/18 10:56 Dose: 81 mg Atorvastatin Calcium (Lipitor) 20 mg PO DAILY [facility] Last Admin: 03/11/18 11:33 Dose: 20 mg Benztropine Mesylate (Cogentin) 1 mg PO Q12 [facility] Last Admin: 03/11/18 09:15 Dose: 1 mg Buspirone HCl (Buspar) 10 mg PO Q12 [facility] Last Admin: 03/11/18 09:15 Dose: 10 mg Calcitriol (Rocaltrol) 0.5 mcg PO Q12 [facility] Last Admin: 03/11/18 10:55 Dose: 0.5 mcg Cholecalciferol (Vitamin D) 1,000 intlu PO DAILY [facility] Last Admin: 03/11/18 10:55 Dose: 1,000 intlu Clonazepam (Klonopin) 0.5 mg PO DAILY PRN PRN Reason: Anxiety Dextrose (Dextrose 50% Inj) 0 ml IV STAT PRN; Protocol PRN Reason: Hypoglycemia Protocol Dextrose (Dextrose 50% Inj) 50 ml IVP ONCE PRN PRN Reason: Hypoglycemia Dextrose (Glutose 15) 0 gm PO ONCE PRN; Protocol PRN Reason: Hypoglycemia Protocol Duloxetine HCl (Cymbalta) 20 mg PO Q12 [facility] Last Admin: 03/11/18 10:56 Dose: 20 mg Enalapril Maleate (Vasotec) 2.5 mg PO DAILY [facility] Last Admin: 03/11/18 10:56 Dose: 2.5 mg Enoxaparin Sodium (Lovenox) 40 mg SC DAILY [facility]; Protocol Escitalopram Oxalate (Lexapro) 10 mg PO DAILY [facility] Last Admin: 03/11/18 10:55 Dose: 10 mg Famotidine (Pepcid) 20 mg PO DAILY [facility] Gabapentin (Neurontin) 100 mg PO TID [facility] Glucagon (Glucagen Diagnostic Kit) 0 mg IM STAT PRN; Protocol PRN Reason: Hypoglycemia Protocol Insulin Detemir (Levemir) 10 units SC HS [facility] Last Admin: 03/11/18 07:20 Dose: Not Given Insulin Human Lispro (Humalog) 5 units SC TID [facility] Last Admin: 03/11/18 09:20 Dose: 5 units Insulin Human Regular (Humulin R) 0 units SC ACHS [facility]; Protocol Last Admin: 03/11/18 12:28 Dose: 3 units Levothyroxine Sodium (Synthroid) 75 mcg PO DAILY@0630 [facility] Last Admin: 03/11/18 09:16 Dose: 75 mcg Magnesium Oxide (Mag-Ox) 800 mg PO Q12 [facility] Methylprednisolone (Solu-Medrol) 40 mg IV Q12 [facility] - Labs Labs: 03/11/18 06:00 03/11/18 06:00 - Constitutional Appears: No Acute Distress - Head Exam Head Exam: ATRAUMATIC, NORMOCEPHALIC - Eye Exam Eye Exam: EOMI - ENT Exam ENT Exam: Mucous Membranes Moist - Neck Exam Neck Exam: absent: Lymphadenopathy - Respiratory Exam Respiratory Exam: Rhonchi, Wheezes Additional comments: wet cough present, unable to expectorate - Cardiovascular Exam Cardiovascular Exam: +S1, +S2 - GI/Abdominal Exam GI & Abdominal Exam: Soft (obese). absent: Tenderness - Extremities Exam Extremities Exam: Pedal Edema (+1 L>R), Tenderness (bilateral LE, equal) - Neurological Exam Neurological Exam: Alert, Awake, Oriented x3 - Psychiatric Exam Psychiatric exam: Normal Affect, Normal Mood (sad because grandson 1 week ago) - Skin Skin Exam: Dry, Warm Assessment and Plan - Assessment and Plan (Free Text) Assessment: 72 yr old F admitted for COPD exacerbation and hypomagnesemia with PMHx including Multiple myeloma, IDDM, HTN, COPD , Pulmonary HTN, depression, anxiety, Hx PE's s/p IVC filter (2015) and GERD. 1. COPD exacerbation -acute -CXR: Improving infiltrates (chronic) without complete resolution -Chest CT: no acute infiltrate bilaterally, mid lower lobe subsegmental bronchiectasis identified -Methylprednisolone dose reduced to 40mg IV Q12 -Duonebs INH Q6 -lasix 20mg PO QD -continue to taper steroids, monitor O2 saturation 2. Hypomagnesemia -acute on chronic, improving, Mag today 1.3 -s/p Mg sulfate 2 gm x 3 -start Mag Ox 800mg PO BID -f/u repeat CMP and Mag in AM 3. Multiple Myeloma -chronic, patient follows up regularly with Heme/Onc (Dr. Vilchis) -continue with home medications -consider imaging if bone pain 5. IDDM Type 2 -chronic -HbA1c 8.0 on 09/04/17 -accuchecks ACHS -Insulin Lispro 5 units SC TID, Insulin Levemir 10 units SC HS -Insulin regular coverage scale- medium dose protocol ACHS -monitor blood glucose -heart healthy-moderate carbohydrate diet -f/u repeat HbA1c 6. Severe Pulmonary HTN -chronic, uncontrolled -proBNP 4400 on admission -continue home medications: patient to bring from home Adempas (riociguat)1mg PO TID -CPAP at night -lasix 20 mg PO every other day 7. HTN -chronic, controlled -continue home medications: Enalapril 2.5mg PO QD -monitor BP 8. Lower extremity neuropathy -chronic, controlled -continue Gabapentin 100mg PO TID 9. Hypothyroidism -chronic -continue home medication: 75 mcg PO QD -f/u TSH 10. Depression/Anxiety -chronic, controlled -patient follows up regularly with Chase Miller -continue home medications: Buspar 10mg PO Q12, Abilify 2mg PO HS, Lexapro 10mg PO QD -Cogentin 1mg PO Q12 for drug induced extrapyramidal symptoms 11. Unsteady gait -chronic, ambulates with walker -PT/OT 12. DVT prophylaxis -Lovenox 40mg SC QD
[2018-03-11] MEDS: Enoxaparin 40 mg Syringe SC SCH (18:08)
[2018-03-11] MEDS: Magnesium Oxide 400 mg Tab UD PO SCH (21:52)
[2018-03-11] MEDS: MethylPREDNISolone 40 mg Vial IV SCH (21:52)
[2018-03-12] MEDS: Albuterol-Ipratrop 3 mg / 0.5 (3 ml) UD INH SCH ×3 (00:59→13:23)
[2018-03-12] MEDS: Levothyroxine 75 MCG TAB PO SCH (05:47)
[2018-03-12 05:54] LABS: ALB/GLOB RATIO 1.2 (1.0-2.1); ALBUMIN 4.2 g/dL (3.5-5.0); ALT/SGPT 23 U/L (9-52); AST/SGOT 27 U/L (14-36); BLOOD UREA NITROGEN 26 mg/dl (7-17); CALCIUM 9.3 mg/dL (8.4-10.2); GFR NON-AFRICAN AMERICAN > 60
[2018-03-12] MEDS: Insulin Lispro (humaLOG) 100 Units/ml Inj SC SCH ×3 (09:30→17:28)
[2018-03-12] MEDS: Cholecalciferol 1,000 INTLU TAB PO SCH (09:30)
[2018-03-12] MEDS: Enoxaparin 40 mg Syringe SC SCH (09:32)
[2018-03-12] MEDS: Magnesium Oxide 400 mg Tab UD PO SCH ×2 (09:32→21:50)
[2018-03-12] MEDS: MethylPREDNISolone 40 mg Vial IV SCH ×2 (09:33→21:41)
[2018-03-12] MEDS: Insulin Regular 100 units/ml SC SCH ×4 (13:23→22:00)
--- NOTE | 2018-03-12 13:35 | CP.PCM.PN ---
<Carmen Boyd - Last Filed: 03/12/18 13:25> Subjective - Date & Time of Evaluation Date of Evaluation: 03/12/18 Time of Evaluation: 09:20 - Subjective Subjective: Patient seen and examined at bedside. Sitting up in bed. On constant 2L supplemental O2 via nasal cannula, saturating at 98%. Patient reports mild improvement. Tolerating PO diet. LE pain is controlled. Afebrile. Objective - Vital Signs/Intake and Output Vital Signs (last 24 hours): Temp Pulse Resp BP Pulse Ox 99.1 F 87 20 176/93 H 98 03/12/18 12:17 03/12/18 12:17 03/12/18 12:17 03/12/18 12:17 03/12/18 12:17 - Medications Medications: Current Medications Albuterol/Ipratropium (Duoneb 3 Mg/0.5 Mg (3 Ml) Ud) 3 ml INH RQ6 [facility] Last Admin: 03/12/18 13:23 Dose: 3 ml Aripiprazole (Abilify) 2 mg PO HS [facility] Last Admin: 03/11/18 21:53 Dose: 2 mg Aspirin (Ecotrin) 81 mg PO DAILY [facility] Last Admin: 03/11/18 10:56 Dose: 81 mg Atorvastatin Calcium (Lipitor) 20 mg PO DAILY [facility] Last Admin: 03/12/18 09:33 Dose: 20 mg Benztropine Mesylate (Cogentin) 1 mg PO Q12 [facility] Last Admin: 03/12/18 09:30 Dose: 1 mg Buspirone HCl (Buspar) 10 mg PO Q12 [facility] Last Admin: 03/12/18 09:31 Dose: 10 mg Calcitriol (Rocaltrol) 0.5 mcg PO Q12 [facility] Last Admin: 03/12/18 09:30 Dose: 0.5 mcg Cholecalciferol (Vitamin D) 1,000 intlu PO DAILY [facility] Last Admin: 03/12/18 09:30 Dose: 1,000 intlu Clonazepam (Klonopin) 0.5 mg PO DAILY PRN PRN Reason: Anxiety Dextrose (Dextrose 50% Inj) 0 ml IV STAT PRN; Protocol PRN Reason: Hypoglycemia Protocol Dextrose (Dextrose 50% Inj) 50 ml IVP ONCE PRN PRN Reason: Hypoglycemia Dextrose (Glutose 15) 0 gm PO ONCE PRN; Protocol PRN Reason: Hypoglycemia Protocol Duloxetine HCl (Cymbalta) 20 mg PO Q12 [facility] Last Admin: 03/12/18 09:30 Dose: 20 mg Enalapril Maleate (Vasotec) 2.5 mg PO DAILY [facility] Last Admin: 03/12/18 09:34 Dose: 2.5 mg Enoxaparin Sodium (Lovenox) 40 mg SC DAILY [facility]; Protocol Last Admin: 03/12/18 09:32 Dose: 40 mg Escitalopram Oxalate (Lexapro) 10 mg PO DAILY [facility] Last Admin: 03/12/18 09:31 Dose: 10 mg Famotidine (Pepcid) 20 mg PO DAILY [facility] Last Admin: 03/12/18 09:33 Dose: 20 mg Furosemide (Lasix) 20 mg PO DAILY [facility] Last Admin: 03/12/18 09:31 Dose: 20 mg Gabapentin (Neurontin) 100 mg PO TID [facility] Last Admin: 03/12/18 13:24 Dose: 100 mg Glucagon (Glucagen Diagnostic Kit) 0 mg IM STAT PRN; Protocol PRN Reason: Hypoglycemia Protocol Insulin Detemir (Levemir) 10 units SC HS [facility] Last Admin: 03/11/18 21:38 Dose: 10 units Insulin Human Lispro (Humalog) 5 units SC TID [facility] Last Admin: 03/12/18 13:22 Dose: 5 units Insulin Human Regular (Humulin R) 0 units SC ACHS [facility]; Protocol Last Admin: 03/12/18 13:24 Dose: 2 units Levothyroxine Sodium (Synthroid) 75 mcg PO DAILY@0630 [facility] Last Admin: 03/12/18 05:47 Dose: 75 mcg Magnesium Oxide (Mag-Ox) 800 mg PO Q12 [facility] Last Admin: 03/12/18 09:32 Dose: 800 mg Methylprednisolone (Solu-Medrol) 40 mg IV Q12 [facility] Last Admin: 03/12/18 09:33 Dose: 40 mg - Labs Labs: 03/11/18 06:00 03/12/18 04:30 - Constitutional Appears: No Acute Distress - Head Exam Head Exam: ATRAUMATIC, NORMOCEPHALIC - Eye Exam Eye Exam: EOMI - ENT Exam ENT Exam: Mucous Membranes Moist - Respiratory Exam Respiratory Exam: Decreased Breath Sounds, Rhonchi (improving) - Cardiovascular Exam Cardiovascular Exam: +S1, +S2. absent: Gallop - Extremities Exam Extremities Exam: absent: Calf Tenderness, Pedal Edema - Neurological Exam Neurological Exam: Alert, Awake, Oriented x3 - Skin Skin Exam: Normal Color, Warm Assessment and Plan - Assessment and Plan (Free Text) Assessment: 72 yr old F admitted for COPD exacerbation and hypomagnesemia with PMHx including Multiple myeloma, IDDM, HTN, COPD , Pulmonary HTN, depression, anxiety, Hx PE's s/p IVC filter (2015) and GERD. Hypomagnesemia has now resolved with supplemental magnesium. 1. COPD exacerbation -acute, improving -CXR: Improving infiltrates (chronic) without complete resolution -Chest CT: no acute infiltrate bilaterally, mid lower lobe subsegmental bronchiectasis identified -Methylprednisolone 40mg IV Q12 -Duonebs INH Q6 -lasix 20mg PO QOD -continue to taper steroids to PO tomorrow, monitor O2 saturation 2. Hypomagnesemia -acute on chronic, improving, Mag today 1.7 -s/p Mg sulfate 2 gm x 3 -start Mag Ox 800mg PO BID -f/u repeat CMP and Mag in AM 3. Multiple Myeloma -chronic, patient follows up regularly with Heme/Onc (Dr. Vilchis) -continue with home medications -consider imaging if bone pain 5. IDDM Type 2 -chronic -HbA1c 8.0 on 09/04/17 -accuchecks ACHS -Insulin Lispro 5 units SC TID, Insulin Levemir 10 units SC HS -Insulin regular coverage scale- medium dose protocol ACHS -monitor blood glucose -heart healthy-moderate carbohydrate diet -f/u repeat HbA1c 6. Severe Pulmonary HTN -chronic, uncontrolled -proBNP 4400 on admission -continue home medications: patient to bring from home Adempas (riociguat)1mg PO TID -CPAP at night -lasix 20 mg PO every other day 7. HTN -chronic, controlled -continue home medications: Enalapril 2.5mg PO QD -monitor BP 8. Lower extremity neuropathy -chronic, controlled -continue Gabapentin 100mg PO TID 9. Hypothyroidism -chronic, stable -TSH 0.91 -continue home medication: 75 mcg PO QD 10. Depression/Anxiety -chronic, controlled -patient follows up regularly with Chase Miller -continue home medications: Buspar 10mg PO Q12, Abilify 2mg PO HS, Lexapro 10mg PO QD -Cogentin 1mg PO Q12 for drug induced extrapyramidal symptoms 11. Unsteady gait -chronic, ambulates with walker -PT/OT 12. DVT prophylaxis -Lovenox 40mg SC QD <Holley Roach - Last Filed: 03/12/18 15:54> Objective - Vital Signs/Intake and Output Vital Signs (last 24 hours): Temp Pulse Resp BP Pulse Ox 99.1 F 87 20 176/93 H 98 03/12/18 12:17 03/12/18 12:17 03/12/18 12:17 03/12/18 12:17 03/12/18 12:17 - Medications Medications: Current Medications Albuterol/Ipratropium (Duoneb 3 Mg/0.5 Mg (3 Ml) Ud) 3 ml INH RQ6 [facility] Last Admin: 03/12/18 13:23 Dose: 3 ml Aripiprazole (Abilify) 2 mg PO HS [facility] Last Admin: 03/11/18 21:53 Dose: 2 mg Aspirin (Ecotrin) 81 mg PO DAILY [facility] Last Admin: 03/11/18 10:56 Dose: 81 mg Atorvastatin Calcium (Lipitor) 20 mg PO DAILY [facility] Last Admin: 03/12/18 09:33 Dose: 20 mg Benztropine Mesylate (Cogentin) 1 mg PO Q12 [facility] Last Admin: 03/12/18 09:30 Dose: 1 mg Buspirone HCl (Buspar) 10 mg PO Q12 [facility] Last Admin: 03/12/18 09:31 Dose: 10 mg Calcitriol (Rocaltrol) 0.5 mcg PO Q12 [facility] Last Admin: 03/12/18 09:30 Dose: 0.5 mcg Cholecalciferol (Vitamin D) 1,000 intlu PO DAILY [facility] Last Admin: 03/12/18 09:30 Dose: 1,000 intlu Clonazepam (Klonopin) 0.5 mg PO DAILY PRN PRN Reason: Anxiety Dextrose (Dextrose 50% Inj) 0 ml IV STAT PRN; Protocol PRN Reason: Hypoglycemia Protocol Dextrose (Dextrose 50% Inj) 50 ml IVP ONCE PRN PRN Reason: Hypoglycemia Dextrose (Glutose 15) 0 gm PO ONCE PRN; Protocol PRN Reason: Hypoglycemia Protocol Duloxetine HCl (Cymbalta) 20 mg PO Q12 [facility] Last Admin: 03/12/18 09:30 Dose: 20 mg Enalapril Maleate (Vasotec) 2.5 mg PO DAILY [facility] Last Admin: 03/12/18 09:34 Dose: 2.5 mg Enoxaparin Sodium (Lovenox) 40 mg SC DAILY [facility]; Protocol Last Admin: 03/12/18 09:32 Dose: 40 mg Escitalopram Oxalate (Lexapro) 10 mg PO DAILY [facility] Last Admin: 03/12/18 09:31 Dose: 10 mg Famotidine (Pepcid) 20 mg PO DAILY [facility] Last Admin: 03/12/18 09:33 Dose: 20 mg Furosemide (Lasix) 20 mg PO DAILY [facility] Last Admin: 03/12/18 09:31 Dose: 20 mg Gabapentin (Neurontin) 100 mg PO TID [facility] Last Admin: 03/12/18 13:24 Dose: 100 mg Glucagon (Glucagen Diagnostic Kit) 0 mg IM STAT PRN; Protocol PRN Reason: Hypoglycemia Protocol Insulin Detemir (Levemir) 10 units SC HS [facility] Last Admin: 03/11/18 21:38 Dose: 10 units Insulin Human Lispro (Humalog) 5 units SC TID [facility] Last Admin: 03/12/18 13:22 Dose: 5 units Insulin Human Regular (Humulin R) 0 units SC ACHS [facility]; Protocol Last Admin: 03/12/18 13:24 Dose: 2 units Levothyroxine Sodium (Synthroid) 75 mcg PO DAILY@0630 [facility] Last Admin: 03/12/18 05:47 Dose: 75 mcg Magnesium Oxide (Mag-Ox) 800 mg PO Q12 [facility] Last Admin: 03/12/18 09:32 Dose: 800 mg Methylprednisolone (Solu-Medrol) 40 mg IV Q12 [facility] Last Admin: 03/12/18 09:33 Dose: 40 mg - Labs Labs: 03/11/18 06:00 03/12/18 04:30 Attending/Attestation - Attestation I have personally seen and examined this patient.: Yes I have fully participated in the care of the patient.: Yes I have reviewed all pertinent clinical information, including history, physical exam and plan: Yes
[2018-03-12] MEDS: Insulin Detemir 100 Units/ml Inj SC SCH (22:24)
[2018-03-13] MEDS: Albuterol-Ipratrop 3 mg / 0.5 (3 ml) UD INH SCH (01:00)
[2018-03-13] MEDS: Levothyroxine 75 MCG TAB PO SCH (06:16)
[2018-03-13] MEDS ORDERED: Albuterol-Ipratrop 3 mg / 0.5 (3 ml) UD INH PRN (06:49)
[2018-03-13 07:05] LABS: ALB/GLOB RATIO 1.2 (1.0-2.1); ALBUMIN 4.4 g/dL (3.5-5.0); ALT/SGPT 22 U/L (9-52); AST/SGOT 26 U/L (14-36); BLOOD UREA NITROGEN 27 mg/dl (7-17); CALCIUM 9.9 mg/dL (8.4-10.2); GFR NON-AFRICAN AMERICAN > 60
[2018-03-13] MEDS: MethylPREDNISolone 40 mg Vial IV SCH (09:06)
[2018-03-13] MEDS: Enoxaparin 40 mg Syringe SC SCH (09:06)
[2018-03-13] MEDS: Cholecalciferol 1,000 INTLU TAB PO SCH (09:07)
[2018-03-13] MEDS: Magnesium Oxide 400 mg Tab UD PO SCH ×2 (09:08→21:11)
[2018-03-13] MEDS: Insulin Lispro (humaLOG) 100 Units/ml Inj SC SCH ×3 (09:09→17:38)
[2018-03-13] MEDS: Insulin Regular 100 units/ml SC SCH ×4 (09:10→21:54)
--- NOTE | 2018-03-13 13:52 | CP.PCM.PN ---
<Carmen Boyd - Last Filed: 03/13/18 13:50> Subjective - Date & Time of Evaluation Date of Evaluation: 03/13/18 Time of Evaluation: 09:05 - Subjective Subjective: Patient seen and examined at bedside. Blood pressure elevated overnight and this morning was 185/91. SOB improving. Denies chest pain, palpitations, weakness or dizziness. Discussed with patient increasing dose of blood pressure medication and decreasing steroid dose. Patient agreeable with plan. Objective - Vital Signs/Intake and Output Vital Signs (last 24 hours): Temp Pulse Resp BP Pulse Ox 98.2 F 84 20 147/74 97 03/13/18 11:54 03/13/18 11:54 03/13/18 11:54 03/13/18 11:54 03/13/18 11:54 - Medications Medications: Current Medications Albuterol/Ipratropium (Duoneb 3 Mg/0.5 Mg (3 Ml) Ud) 3 ml INH RQ6 PRN PRN Reason: Shortness of Breath Aripiprazole (Abilify) 2 mg PO HS [facility] Last Admin: 03/12/18 21:39 Dose: 2 mg Aspirin (Ecotrin) 81 mg PO DAILY [facility] Last Admin: 03/13/18 09:07 Dose: 81 mg Atorvastatin Calcium (Lipitor) 20 mg PO DAILY [facility] Last Admin: 03/13/18 09:08 Dose: 20 mg Benztropine Mesylate (Cogentin) 1 mg PO Q12 [facility] Last Admin: 03/13/18 11:00 Dose: 1 mg Buspirone HCl (Buspar) 10 mg PO Q12 [facility] Last Admin: 03/13/18 09:07 Dose: 10 mg Calcitriol (Rocaltrol) 0.5 mcg PO Q12 [facility] Last Admin: 03/13/18 09:05 Dose: 0.5 mcg Cholecalciferol (Vitamin D) 1,000 intlu PO DAILY [facility] Last Admin: 03/13/18 09:07 Dose: 1,000 intlu Clonazepam (Klonopin) 0.5 mg PO DAILY PRN PRN Reason: Anxiety Dextrose (Dextrose 50% Inj) 0 ml IV STAT PRN; Protocol PRN Reason: Hypoglycemia Protocol Dextrose (Dextrose 50% Inj) 50 ml IVP ONCE PRN PRN Reason: Hypoglycemia Dextrose (Glutose 15) 0 gm PO ONCE PRN; Protocol PRN Reason: Hypoglycemia Protocol Duloxetine HCl (Cymbalta) 20 mg PO Q12 [facility] Last Admin: 03/13/18 09:07 Dose: 20 mg Enalapril Maleate (Vasotec) 5 mg PO DAILY [facility] Last Admin: 03/13/18 09:18 Dose: 5 mg Enoxaparin Sodium (Lovenox) 40 mg SC DAILY [facility]; Protocol Last Admin: 03/13/18 09:06 Dose: 40 mg Escitalopram Oxalate (Lexapro) 10 mg PO DAILY [facility] Last Admin: 03/13/18 09:08 Dose: 10 mg Famotidine (Pepcid) 20 mg PO DAILY [facility] Last Admin: 03/13/18 09:07 Dose: 20 mg Furosemide (Lasix) 20 mg PO DAILY [facility] Last Admin: 03/13/18 09:08 Dose: 20 mg Gabapentin (Neurontin) 100 mg PO TID [facility] Last Admin: 03/13/18 13:08 Dose: 100 mg Glucagon (Glucagen Diagnostic Kit) 0 mg IM STAT PRN; Protocol PRN Reason: Hypoglycemia Protocol Insulin Detemir (Levemir) 10 units SC [facility] Last Admin: 03/12/18 22:24 Dose: 10 units Insulin Human Lispro (Humalog) 5 units SC TID [facility] Last Admin: 03/13/18 13:05 Dose: 5 units Insulin Human Regular (Humulin R) 0 units SC ACHS [facility]; Protocol Last Admin: 03/13/18 13:05 Dose: 4 units Levothyroxine Sodium (Synthroid) 75 mcg PO DAILY@0630 [facility] Last Admin: 03/13/18 06:16 Dose: 75 mcg Magnesium Oxide (Mag-Ox) 800 mg PO Q12 [facility] Last Admin: 03/13/18 09:08 Dose: 800 mg Methylprednisolone (Solu-Medrol) 40 mg IV DAILY [facility] Last Admin: 03/13/18 09:06 Dose: 40 mg - Labs Labs: 03/11/18 06:00 03/13/18 05:20 - Constitutional Appears: No Acute Distress - Head Exam Head Exam: ATRAUMATIC - Eye Exam Eye Exam: EOMI - ENT Exam ENT Exam: Mucous Membranes Moist - Respiratory Exam Respiratory Exam: Wheezes (improved) - Cardiovascular Exam Cardiovascular Exam: +S1, +S2. absent: Gallop - GI/Abdominal Exam GI & Abdominal Exam: Soft. absent: Tenderness - Extremities Exam Extremities Exam: absent: Calf Tenderness, Pedal Edema - Neurological Exam Neurological Exam: Alert, Awake, Oriented x3 - Psychiatric Exam Psychiatric exam: Normal Affect, Normal Mood - Skin Skin Exam: Dry, Warm Assessment and Plan - Assessment and Plan (Free Text) Assessment: 72 yr old F admitted for COPD exacerbation and hypomagnesemia with PMHx including Multiple myeloma, IDDM, HTN, COPD , Pulmonary HTN, depression, anxiety, Hx PE's s/p IVC filter (2014) and GERD. Uncontrolled blood pressure overnight and this AM. Medication adjusted. 1. COPD exacerbation -acute, improving -CXR: Improving infiltrates (chronic) without complete resolution -Chest CT: no acute infiltrate bilaterally, mid lower lobe subsegmental bronchiectasis identified -decreased Methylprednisolone to 40mg IV QD -Duonebs INH Q6 PRN -lasix 20mg PO QOD -continue to taper steroids, monitor O2 saturation 2. Hypomagnesemia -acute on chronic, improved , Mag today 1.7 -s/p Mg sulfate 2 gm x 3 -start Mag Ox 800mg PO BID 3. Multiple Myeloma -chronic, patient follows up regularly with Heme/Onc (Dr. Vilchis) -continue with home medications -consider imaging if bone pain 5. IDDM Type 2 -chronic, controlled -HbA1c 6.6 on 03/12/18 -accuchecks ACHS -Insulin Lispro 5 units SC TID, Insulin Levemir 10 units SC HS -Insulin regular coverage scale- medium dose protocol ACHS -monitor blood glucose -heart healthy-moderate carbohydrate diet 6. Severe Pulmonary HTN -chronic, uncontrolled -proBNP 4400 on admission -continue home medications: patient to bring from home Adempas (riociguat)1mg PO TID -CPAP at night -lasix 20 mg PO every other day 7. HTN -chronic, uncontrolled overnight and this AM -increased Enalapril to 5mg PO QD, BP normalized -monitor BP 8. Lower extremity neuropathy -chronic, controlled -continue Gabapentin 100mg PO TID 9. Hypothyroidism -chronic, stable -TSH 0.91 -continue home medication: 75 mcg PO QD 10. Depression/Anxiety -chronic, controlled -patient follows up regularly with Chase Miller -continue home medications: Buspar 10mg PO Q12, Abilify 2mg PO HS, Lexapro 10mg PO QD -Cogentin 1mg PO Q12 for drug induced extrapyramidal symptoms 11. Unsteady gait -chronic, ambulates with walker -PT/OT 12. DVT prophylaxis -Lovenox 40mg SC QD <Holley Roach - Last Filed: 03/13/18 16:23> Objective - Vital Signs/Intake and Output Vital Signs (last 24 hours): Temp Pulse Resp BP Pulse Ox 98.2 F 87 17 151/84 H 93 L 03/13/18 16:05 03/13/18 16:05 03/13/18 16:05 03/13/18 16:05 03/13/18 16:05 - Medications Medications: Current Medications Albuterol/Ipratropium (Duoneb 3 Mg/0.5 Mg (3 Ml) Ud) 3 ml INH RQ6 PRN PRN Reason: Shortness of Breath Aripiprazole (Abilify) 2 mg PO HS [facility] Last Admin: 03/12/18 21:39 Dose: 2 mg Aspirin (Ecotrin) 81 mg PO DAILY [facility] Last Admin: 03/13/18 09:07 Dose: 81 mg Atorvastatin Calcium (Lipitor) 20 mg PO DAILY [facility] Last Admin: 03/13/18 09:08 Dose: 20 mg Benztropine Mesylate (Cogentin) 1 mg PO Q12 [facility] Last Admin: 03/13/18 11:00 Dose: 1 mg Buspirone HCl (Buspar) 10 mg PO Q12 [facility] Last Admin: 03/13/18 09:07 Dose: 10 mg Calcitriol (Rocaltrol) 0.5 mcg PO Q12 [facility] Last Admin: 03/13/18 09:05 Dose: 0.5 mcg Cholecalciferol (Vitamin D) 1,000 intlu PO DAILY [facility] Last Admin: 03/13/18 09:07 Dose: 1,000 intlu Clonazepam (Klonopin) 0.5 mg PO DAILY PRN PRN Reason: Anxiety Dextrose (Dextrose 50% Inj) 0 ml IV STAT PRN; Protocol PRN Reason: Hypoglycemia Protocol Dextrose (Dextrose 50% Inj) 50 ml IVP ONCE PRN PRN Reason: Hypoglycemia Dextrose (Glutose 15) 0 gm PO ONCE PRN; Protocol PRN Reason: Hypoglycemia Protocol Duloxetine HCl (Cymbalta) 20 mg PO Q12 [facility] Last Admin: 03/13/18 09:07 Dose: 20 mg Enalapril Maleate (Vasotec) 5 mg PO DAILY [facility] Last Admin: 03/13/18 09:18 Dose: 5 mg Enoxaparin Sodium (Lovenox) 40 mg SC DAILY [facility]; Protocol Last Admin: 03/13/18 09:06 Dose: 40 mg Escitalopram Oxalate (Lexapro) 10 mg PO DAILY [facility] Last Admin: 03/13/18 09:08 Dose: 10 mg Famotidine (Pepcid) 20 mg PO DAILY [facility] Last Admin: 03/13/18 09:07 Dose: 20 mg Furosemide (Lasix) 20 mg PO DAILY [facility] Last Admin: 03/13/18 09:08 Dose: 20 mg Gabapentin (Neurontin) 100 mg PO TID [facility] Last Admin: 03/13/18 13:08 Dose: 100 mg Glucagon (Glucagen Diagnostic Kit) 0 mg IM STAT PRN; Protocol PRN Reason: Hypoglycemia Protocol Insulin Detemir (Levemir) 10 units SC HS [facility] Last Admin: 03/12/18 22:24 Dose: 10 units Insulin Human Lispro (Humalog) 5 units SC TID [facility] Last Admin: 03/13/18 13:05 Dose: 5 units Insulin Human Regular (Humulin R) 0 units SC ACHS [facility]; Protocol Last Admin: 03/13/18 13:05 Dose: 4 units Levothyroxine Sodium (Synthroid) 75 mcg PO DAILY@0630 [facility] Last Admin: 03/13/18 06:16 Dose: 75 mcg Magnesium Oxide (Mag-Ox) 800 mg PO Q12 [facility] Last Admin: 03/13/18 09:08 Dose: 800 mg Methylprednisolone (Solu-Medrol) 40 mg IV DAILY [facility] Last Admin: 03/13/18 09:06 Dose: 40 mg - Labs Labs: 03/11/18 06:00 03/13/18 05:20 Attending/Attestation - Attestation I have personally seen and examined this patient.: Yes I have fully participated in the care of the patient.: Yes I have reviewed all pertinent clinical information, including history, physical exam and plan: Yes
[2018-03-13] MEDS: Insulin Detemir 100 Units/ml Inj SC SCH (21:55)
[2018-03-14] MEDS: Levothyroxine 75 MCG TAB PO SCH (05:33)
[2018-03-14] MEDS: Insulin Regular 100 units/ml SC SCH ×2 (06:46→12:58)
[2018-03-14 08:18] VITALS: RESP 20; O2SAT 100
[2018-03-14] MEDS: Cholecalciferol 1,000 INTLU TAB PO SCH (10:49)
[2018-03-14] MEDS: MethylPREDNISolone 40 mg Vial IV SCH (10:51)
[2018-03-14] MEDS: Enoxaparin 40 mg Syringe SC SCH (10:53)
[2018-03-14] MEDS: Magnesium Oxide 400 mg Tab UD PO SCH (10:53)
[2018-03-14] MEDS: Insulin Lispro (humaLOG) 100 Units/ml Inj SC SCH ×3 (10:55→13:00)
[2018-03-14 11:51] VITALS: BP 154/77; PULSE 80; TEMP 97.8
--- NOTE | 2018-03-14 12:31 | CP.PCM.DIS ---
Provider - Provider Date of Admission: 03/11/18 13:38 Attending physician: David Neumann MD Primary care physician: Dr. Neumann Consults: 03/11/18 15:04 Wound Care [Nursing Referral for Wound Care] Routine Comment: Abdominal folds w/ linear open open sore & redness Physician Instructions: Reason For Exam: Left breastfold redness . 03/14/18 05:21 Wound Care [Nursing Referral for Wound Care] Routine Comment: Physician Instructions: Reason For Exam: groin redness Time Spent in preparation of Discharge (in minutes): 30 Diagnosis - Discharge Diagnosis (1) Hypomagnesemia Status: Resolved Priority: Low (2) COPD exacerbation Status: Resolved Priority: Low (3) Unsteady gait Status: Chronic Priority: Medium Comment: patient declined TCU for further PT/OT, stable for discharge as uses walker and assisted by daughter (4) Hypertension, uncontrolled Status: Resolved Priority: Low Comment: patients medications were adjusted, dose increased Hospital Course - Lab Results Lab Results: Most Recent Lab Values WBC 5.5 K/uL (4.8-10.8) 03/11/18 06:00 RBC 3.77 Mil/uL (3.80-5.20) L 03/11/18 06:00 Hgb 10.8 g/dL (12.0-16.0) L 03/11/18 06:00 Hct 33.5 % (34.0-47.0) L 03/11/18 06:00 MCV 88.9 fl (81.0-99.0) 03/11/18 06:00 MCH 28.6 pg (27.0-31.0) 03/11/18 06:00 MCHC 32.1 g/dL (33.0-37.0) L 03/11/18 06:00 RDW 17.8 % (11.5-14.5) H 03/11/18 06:00 Plt Count 246 K/uL (130-400) 03/11/18 06:00 MPV 8.3 fl (7.2-11.7) 03/10/18 15:40 Neut % (Auto) 71.9 % (50.0-75.0) 03/10/18 15:40 Lymph % (Auto) 10.2 % (20.0-40.0) L 03/10/18 15:40 [place] % (Auto) 16.3 % (0.0-10.0) H 03/10/18 15:40 Eos % (Auto) 1.3 % (0.0-4.0) 03/10/18 15:40 Baso % (Auto) 0.3 % (0.0-2.0) 03/10/18 15:40 Neut # (Auto) 4.0 K/uL (1.8-7.0) 03/10/18 15:40 Lymph # (Auto) 0.6 K/uL (1.0-4.3) L 03/10/18 15:40 [place] # (Auto) 0.9 K/uL (0.0-0.8) H 03/10/18 15:40 Eos # (Auto) 0.1 K/uL (0.0-0.7) 03/10/18 15:40 Baso # (Auto) 0.0 K/uL (0.0-0.2) 03/10/18 15:40 Sodium 138 mmol/l (132-148) 03/13/18 05:20 Potassium 4.5 MMOL/L (3.6-5.0) 03/13/18 05:20 Chloride 93 mmol/L (98-107) L 03/13/18 05:20 Carbon Dioxide 32 mmol/L (22-30) H 03/13/18 05:20 Anion Gap 18 (10-20) 03/13/18 05:20 BUN 27 mg/dl (7-17) H 03/13/18 05:20 Creatinine 0.9 mg/dl (0.7-1.2) 03/13/18 05:20 Est GFR ( Amer) > 60 03/13/18 05:20 Est GFR (Non-Af Amer) > 60 03/13/18 05:20 POC Glucose (mg/dL) 109 mg/dL (65-110) 03/14/18 11:30 Random Glucose 271 mg/dL (65-105) H 03/13/18 05:20 Hemoglobin A1c 6.6 % (4.2-6.5) H 03/12/18 04:30 Calcium 9.9 mg/dL (8.4-10.2) 03/13/18 05:20 Phosphorus 4.3 mg/dl (2.5-4.5) 03/12/18 04:30 Magnesium 1.7 MG/DL (1.6-2.3) 03/13/18 05:20 Total Bilirubin 0.5 mg/dl (0.2-1.3) 03/13/18 05:20 AST 26 U/L (14-36) 03/13/18 05:20 ALT 22 U/L (9-52) 03/13/18 05:20 Alkaline Phosphatase 83 U/L (38-126) 03/13/18 05:20 Troponin I 0.0150 ng/mL (0.00-0.120) 03/10/18 15:40 NT-Pro-B Natriuret Pep 4400 pg/ml (0-900) H 03/10/18 15:40 Total Protein 8.2 G/DL (6.3-8.2) 03/13/18 05:20 Albumin 4.4 g/dL (3.5-5.0) 03/13/18 05:20 Globulin 3.7 gm/dL (2.2-3.9) 03/13/18 05:20 Albumin/Globulin Ratio 1.2 (1.0-2.1) 03/13/18 05:20 TSH 3rd Generation 0.91 mIU/ML (0.46-4.68) 03/12/18 04:30 - Hospital Course Hospital Course: 72 yr old admitted for COPD exacerbation and hypomagnesemia. Patients COPD exacerbation and hypomagnesemia resolved after treatment wit IV steroids, inhaled respiratory treatments, lasix every other day and magnesium supplement IV and PO. During hospitalization patients blood pressure was uncontrolled and hypertensive medication was increased to Enalapril maleate 5mg PO QD. Patient was discharged stable with instructions to discontinue Enalapril maleate 2.5mg PO QD, start Enalapril maleate 5mg PO QD, resume the rest of home medications. Medications on discharge -ASA 81mg PO QD -Enalapril 5mg PO QD -Clonazepam 0.5mg PO QD PRN -Abilify 2mg PO QHS -Hydrocortisone 10mg PO QHS -Omeprazole 20mg PO QD -Riociguat 2mg PO TID -Ferrous sulfate 325mg PO QD -Atorvastatin 20mg PO QHS -Benztropine 1mg PO Q12 -Bortezomib 3.5mg IV MOFR -Duloxetine 20mg PO Q12 -Escitalopram 10mg PO QD -Torsemide 20mg PO QOD -Metformin 500mg PO BID -Calcitriol 0.5mcg PO Q12 -Cholecalciferol 1,000 units PO QD -Insulin Levemir 20 units SC QHS -Insulin Lispro 5 units SC TID -buspirone 10mg PO Q12 -gabapentin 100mg PO TID -levothyroxine 75mcg PO QD -magnesium oxide 800mg PO Q12 - Date & Time of H&P Date of H&P: 03/10/18 Time of H&P: 20:09 Discharge Exam - Head Exam Head Exam: ATRAUMATIC - Eye Exam Eye Exam: EOMI - ENT Exam ENT Exam: Mucous Membranes Moist - Respiratory Exam Respiratory Exam: NORMAL BREATHING PATTERN - Cardiovascular Exam Cardiovascular Exam: +S1, +S2. absent: Gallop - GI/Abdominal Exam GI & Abdominal Exam: Normal Bowel Sounds, Soft - Extremities Exam Extremities exam: full ROM - Neurological Exam Neurological exam: Alert, CN II-XII Intact, Oriented x3 - Psychiatric Exam Psychiatric exam: Normal Affect, Normal Mood - Skin Skin Exam: Normal Color, Warm Discharge Plan - Discharge Medications Prescriptions: Enalapril Maleate [Vasotec] 5 mg PO DAILY #30 tab - Follow Up Plan Condition: FAIR Disposition: HOME/ ROUTINE Instructions: Exacerbation of COPD (DC), Breathing Exercises, Low Magnesium Level (DC) Additional Instructions: -Follow up with your primary care provider within 1 week. -Take medications as prescribed -Your hypertension medication dose has been increased to Enalapril Maleate 5mg by mouth daily. Monitor your blood pressure at home and bring you blood pressure log to your next appointment with your doctor. Referrals: David Neumann MD [Family Provider] -
--- NOTE | 2018-03-14 14:07 | PQF ---
PROVIDER RESPONSE TEXT: CHF ruled out. REVIEWER QUERY TEXT: Heart Failure Acuity and Type Congestive Heart Failure is documented in the Medical Record. Please document the type and acuity (in cludes probable or suspected) versus CHF ruled out Such as: Type: -- Combined systolic and diastolic (heart failure with reduced ejection fraction and diastolic) dysfu nction -- Diastolic (HFpEF) -- Systolic (HFrEF) -- Left heart failure -- Right heart failure -- Right heart failure due to left heart failure -- High output failure -- End stage heart failure -- Other, please specify Acuity: -- Acute -- Chronic -- Acute on chronic -- Other, please specify H and P includes:CHF BNP: 441/3 03/10 :CXR: Improving infiltrates (chronic) without complete resolution.Follow-up CT should be consider ed 03/[address]: 1.No acute infiltrate bilaterally.Mild right lower lobe subsegmental bronchiectasis id entified. 2.No suspicious for pulmonary artery hypertension.Clinically correlate.3.The esophagus is distended with retained food.4.Stable chronic compression fractures T5 and T12.Discordant preliminary report fr om [employer] (no pulmonary vascular congestion, vertebral body compression fractures T-spine different levels as above), Lasix oral daily The patient's Clinical Indicators include: -- Query created by: Gisella Perez on 03/14/2018 12:40 PM Electronically signed by: Carmen Boyd 03/14/2018 2:05 PM
--- NOTE | 2018-03-14 14:08 | PQF ---
PROVIDER RESPONSE TEXT: Patient does not have diabetes associated manifestation. Her diabetes is controlled with an HbA1c of 6.6. Her hyperglycemia was likely secondary to steroid treatment for COPD exacerbation. REVIEWER QUERY TEXT: Diabetic Associated Manifestations Please specify any manifestations associated / due to diabetes Such as: --DM with Hyperglycemia -- Diabetes with renal manifestation -- Diabetes with neurologic manifestation -- Diabetes with ophthalmic manifestation -- Diabetes with peripheral circulatory manifestation -- Other, please specify Random glucose: 97->206->244->271 -insulin, POC testing The patient's Clinical Indicators include: -- Query created by: Gisella Perez on 03/14/2018 12:43 PM Electronically signed by: Carmen Boyd 03/14/2018 2:05 PM
== END 2018-03-14 14:00 | disposition home or self-care (01) | DRG 191 ==
LOC: H.ER 11:14 → H.ERHOLD 18:49 → OBSVTOIN 03-11 13:38 → H.TEL 03-11 14:05
PROVIDERS: ADMIT Family Medicine; ATTEND Family Medicine
PROC: 3E0F73Z Introduction of Anti-inflammatory into Respiratory Tract, Via Natural or Artificial Opening (ICD-10-PCS; principal; 2018-03-11)
DX: J44.1 Chronic obstructive pulmonary disease with (acute) exacerbation (principal); C90.00 Multiple myeloma not having achieved remission; E83.42 Hypomagnesemia; G20 Parkinson's disease; E11.41 Type 2 diabetes mellitus with diabetic mononeuropathy; E11.65 Type 2 diabetes mellitus with hyperglycemia; I10 Essential (primary) hypertension; I27.20 Pulmonary hypertension, unspecified; I25.10 Atherosclerotic heart disease of native coronary artery without angina pectoris; K21.9 Gastro-esophageal reflux disease without esophagitis; E03.9 Hypothyroidism, unspecified; E78.00 Pure hypercholesterolemia, unspecified; R26.81 Unsteadiness on feet; F32.9 Major depressive disorder, single episode, unspecified; F41.9 Anxiety disorder, unspecified; M79.7 Fibromyalgia; M06.9 Rheumatoid arthritis, unspecified; G47.30 Sleep apnea, unspecified; D64.9 Anemia, unspecified; Z86.711 Personal history of pulmonary embolism; Z86.74 Personal history of sudden cardiac arrest; Z87.01 Personal history of pneumonia (recurrent); I25.2 Old myocardial infarction; Z79.82 Long term (current) use of aspirin; Z79.4 Long term (current) use of insulin; Z79.84 Long term (current) use of oral hypoglycemic drugs; Z88.6 Allergy status to analgesic agent

== ENCOUNTER 2018-03-23 16:18 | Inpatient (IN) | payer MEDICARE, OTHER ==
[2018-03-23 16:19] VITALS: BMI 35.9
[2018-03-23] MEDS ORDERED: Sodium Chloride 0.9% 1,000 ML IV STA ×2 (16:46→17:51)
[2018-03-23 17:08] LABS: BASO % 0.4 % (0.0-2.0); EOS % 0.5 % (0.0-4.0); HEMOGLOBIN 11.6 g/dL (12.0-16.0); LYMPH # 1.1 K/uL (1.0-4.3); LYMPH % 9.9 % (20.0-40.0); MEAN CELL VOLUME 87.2 fl (81.0-99.0); MEAN CORPUSCULAR HEMOGLOBIN 28.8 pg (27.0-31.0); MEAN PLATELET VOLUME 8.8 fl (7.2-11.7); MONO # 1.1 K/uL (0.0-0.8); NEUT # 8.6 K/uL (1.8-7.0); NEUT % 79.2 % (50.0-75.0); PLATELET COUNT 212 K/uL (130-400); RBC 4.02 Mil/uL (3.80-5.20); RED CELL DISTRIBUTION WIDTH 17.3 % (11.5-14.5); WHITE BLOOD COUNT 10.8 K/uL (4.8-10.8)
[2018-03-23 17:18] LABS: PROTHROMBIN TIME 11.8 Seconds (9.8-13.1)
[2018-03-23 17:21] LABS: PARTIAL THROMBOPLASTIN TIME 29.2 Seconds (25.6-37.1)
--- NOTE | 2018-03-23 17:23 | CT ---
Date of service: 03/23/2018 PROCEDURE: CT HEAD WITHOUT CONTRAST. HISTORY: AMS COMPARISON: Comparison is made to the previous study dated 08/23/2017 TECHNIQUE: Axial computed tomography images were obtained through the head/brain without intravenous contrast. Radiation dose: Total exam DLP = 757.31 mGy-cm. This CT exam was performed using one or more of the following dose reduction techniques: Automated exposure control, adjustment of the mA and/or kV according to patient size, and/or use of iterative reconstruction technique. FINDINGS: HEMORRHAGE: No intracranial hemorrhage. BRAIN: No mass effect or edema. Mild volume loss and chronic microvascular white matter ischemic changes are again noted. VENTRICLES: Unremarkable. No hydrocephalus. CALVARIUM: Unremarkable. PARANASAL SINUSES: Unremarkable as visualized. No significant inflammatory changes. MASTOID AIR CELLS: Unremarkable as visualized. No inflammatory changes. OTHER FINDINGS: Again noted are soft tissue nodules in the scalp. IMPRESSION: No evidence of acute intracranial hemorrhage mass effect or midline shift. No significant interval changes noted since the prior exam.
[2018-03-23 17:25] LABS: ALB/GLOB RATIO 1.1 (1.0-2.1); ALBUMIN 3.8 g/dL (3.5-5.0)
--- NOTE | 2018-03-23 17:28 | ED PDOC ---
HPI: Altered Mental Status Time Seen by Provider: 03/23/18 16:36 Chief Complaint (Nursing): Abnormal Labs Chief Complaint (Provider): Abnormal Labs History Per: Patient History/Exam Limitations: None Onset/Duration Of Symptoms: Days (x4) Current Symptoms Are (Timing): Still Present Additional Complaint(s): 72 year old female presents to the ED with high calcium levels. Patient had bloodwork done at the summer counselor's office and received a call at home stating she had high calcium levels. Patient was told to come to the ED. Daughter reports patient has been having altered mental status since Wednesday. Patient has been forgetful and has not been walking around. PMD: David Velasquez Past Medical History Reviewed: Historical Data, Nursing Documentation, Vital Signs Vital Signs: Last Vital Signs Temp 98 F 03/23/18 16:24 Pulse 89 03/23/18 17:06 Resp 16 03/23/18 17:06 BP 115/49 L 03/23/18 17:06 Pulse Ox 99 03/23/18 17:06 - Medical History PMH: Anemia, Anxiety, Arthritis, Asthma, CAD, CHF, COPD, Depression, Diabetes, Deep Vein Thrombosis, Emphysema, Fibromyalgia, Fractures, GERD, HTN, Hypercho lesterolemia, Hypothyroidism, Migraine, Parkinson's Disease, Pneumonia, Pulmonary Embolism, Rheumatoid Arthritis, Sleep Apnea Denies: HIV, Chronic Kidney Disease - Surgical History Surgical History: Appendectomy, Cholecystectomy, Endoscopy, Tonsillectomy - Family History Family History: States: Unknown Family Hx, Diabetes - Home Medications Home Medications: Ambulatory Orders Medication Instructions Recorded Aspirin [Ecotrin] 81 mg PO DAILY 03/05/17 clonazePAM [Klonopin] 0.5 mg PO DAILY PRN 03/05/17 ARIPiprazole [Abilify] 2 mg PO HS 05/11/17 Hydrocortisone [Cortef] 10 mg PO HS 05/11/17 Omeprazole 20 mg PO DAILY 05/11/17 Riociguat [Adempas] 2 mg PO TID 11/17/17 Ferrous Sulfate [Feosol] 325 mg PO DAILY tab 11/22/17 Atorvastatin [Lipitor] 20 mg PO DAILY 12/18/17 Benztropine [Cogentin] 1 mg PO Q12 12/18/17 Bortezomib [Velcade] 3.5 mg IV TUTH 12/18/17 Escitalopram [Lexapro] 10 mg PO DAILY 12/18/17 Albuterol/Ipratropium [Duoneb 3 3 ml INH RQ6 PRN neb 12/22/17 mg/0.5 mg (3 ml) UD] metFORMIN [glucOPHAGE] 500 mg PO BID 30 Days #60 tab 12/22/17 Calcitriol [Rocaltrol] 0.5 mcg PO Q12 01/25/18 Cholecalciferol [Vitamin D 1000 IU] 1,000 unit PO DAILY 01/25/18 Insulin Lispro [humALOG] 5 unit SC TID 01/25/18 busPIRone [Buspar] 15 mg PO Q12 01/25/18 Gabapentin [Neurontin] 100 mg PO TID 30 Days #90 capsule 02/03/18 Levothyroxine [Synthroid] 75 mcg PO DAILY@0630 30 Days #30 02/03/18 tab Magnesium Oxide [Mag-Ox] 800 mg PO Q12 30 Days #60 tab 02/03/18 Insulin Glargine, Recombina 20 unit SC HS 03/11/18 [Lantus] Enalapril Maleate [Vasotec] 5 mg PO DAILY #30 tab 03/14/18 Calcium Carbonate [Calcium] 1 tab PO BID 03/23/18 DULoxetine [Cymbalta] 60 mg PO DAILY 03/23/18 Torsemide [Demadex] 20 mg PO DAILY 03/23/18 - Allergies Allergies/Adverse Reactions: Allergies Allergy/AdvReac Type Severity Reaction Status Date / Time codeine AdvReac syncope, Verified 03/10/18 12:43 diaphoresis Review of Systems ROS Statement: Except As Marked, All Systems Reviewed And Found Negative Neurological: Positive for: Altered Mental Status (Forgetful and not walking around) Physical Exam - Reviewed Nursing Documentation Reviewed: Yes Vital Signs Reviewed: Yes - Physical Exam Appears: Positive for: Non-toxic, No Acute Distress Head Exam: Positive for: ATRAUMATIC, NORMOCEPHALIC Skin: Positive for: Normal Color, Warm, Dry Eye Exam: Positive for: Normal appearance Neck: Positive for: Normal, Painless ROM Cardiovascular/Chest: Positive for: Regular Rate, Rhythm Respiratory: Positive for: Normal Breath Sounds. Negative for: Wheezing, Respiratory Distress Gastrointestinal/Abdominal: Positive for: Normal Exam, Soft. Negative for: Tenderness Extremity: Positive for: Normal ROM Neurologic/Psych: Positive for: Alert, Oriented (x1). Negative for: Motor/Sensory Deficits - Laboratory Results Result Diagrams: 03/23/18 17:02 03/23/18 17:02 Lab Results: PT 11.8 Seconds (9.8-13.1) 03/23/18 17:02 INR 1.0 03/23/18 17:02 APTT 29.2 Seconds (25.6-37.1) 03/23/18 17:02 Total Bilirubin 0.6 mg/dl (0.2-1.3) 03/23/18 17:02 AST 37 U/L (14-36) H D 03/23/18 17:02 ALT 30 U/L (9-52) 03/23/18 17:02 Alkaline Phosphatase 70 U/L (38-126) 03/23/18 17:02 Total Protein 7.1 G/DL (6.3-8.2) 03/23/18 17:02 Albumin 3.8 g/dL (3.5-5.0) 03/23/18 17:02 Globulin 3.3 gm/dL (2.2-3.9) 03/23/18 17:02 Albumin/Globulin Ratio 1.1 (1.0-2.1) 03/23/18 17:02 - ECG O2 Sat by Pulse Oximetry: 99 (RA) Pulse Ox Interpretation: Normal Medical Decision Making Medical Decision Making: Initial Impression: Altered mental status with hypercalcemia Initial Plan: --Head CT --ECG --CMP --Magnesium stat --Phosphorous stat --Troponin stat --ED urine dipstick --CBC --PTT --Prothrombin time --Chest X-ray --Glucose --Sodium chloride 1000mL IV --Urinalysis 17:[address] Vilchis, recommends aggressive IV hydration (1L NS over 4- 6 hours) and Mg replenishment. Dr. Nava for Nephro. 17:55 Dr. Brandy paez. Scribe Attestation: Documented by Mirza Sexton acting as a scribe for Ann Marie Akers MD. Provider Scribe Attestation: All medical record entries made by the Scribe were at my direction and personally dictated by me. I have reviewed the chart and agree that the record accurately reflects my personal performance of the history, physical exam, medical decision making, and the department course for this patient. I have also personally directed, reviewed, and agree with the discharge instructions and disposition. Disposition - Clinical Impression Clinical Impression: Hypercalcemia, Hypomagnesemia - Patient ED Disposition Is Patient to be Admitted: Yes - Disposition Disposition Time: 19:34 Condition: GUARDED - Pt Status Changed To: Hospital Disposition Of: Inpatient - Admit Certification Admit to Inpatient:: After my assessment, the patient will require hospitalization for at least two midnights. This is because of the severity of symptoms shown, intensity of services needed, and/or the medical risk in this patient being treated as an outpatient. - POA Present On Arrival: None
[2018-03-23 17:32] LABS: TROPONIN I 0.021 ng/mL (0.00-0.120)
[2018-03-23] MEDS ORDERED: Magnesium Sulfate 2 gm/50 ml 2 GM/50 ML BAG IVPB STA (18:50)
[2018-03-23] MEDS ORDERED: Magnesium Sulfate 2 gm/50 ml 2 GM/50 ML BAG ONE (18:56)
[2018-03-23 20:37] LABS: ANISOCYTOSIS SLIGHT; BANDS 3 % (0-2); EOSINOPHIL 1 % (0-7); LYMPHOCYTE 10 % (20-50); MICROCYTOSIS SLIGHT; MONOCYTE 7 % (0-10); NEUTROPHIL 79 % (42-75); TEARDROP CELLS SLIGHT; TOTAL CELLS COUNTED 100
[2018-03-23 20:38] LABS: PLATELET ESTIMATE NORMAL (NORMAL)
[2018-03-23 20:46] LABS: SQUAMOUS EPITHIAL 1 /hpf (0-5); URINE BILIRUBIN NEGATIVE (NEGATIVE); URINE BLOOD NEGATIVE (NEGATIVE); URINE CLARITY CLEAR (Clear); URINE COLOR YELLOW (YELLOW); URINE GLUCOSE (UA) NEG (NEGATIVE); URINE LEUKOCYTE ESTERASE NEG Leu/uL (Negative); URINE PROTEIN NEGATIVE (NEGATIVE); URINE UROBILINOGEN 0.2-1.0 mg/dL (0.2-1.0)
[2018-03-23] MEDS ORDERED: Magnesium Oxide 400 mg Tab UD PO SCH ×2 (21:00→21:15)
[2018-03-23] MEDS ORDERED: Calcitonin 400 Intl Units/2mL Inj IM SCH (21:00)
--- NOTE | 2018-03-23 21:10 | CP.PCM.HP ---
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 As per daughter, onset was on 03/03/18 after pt's grand son . 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 Daughter call Dr Neumann who recommended for pt to be seen at hospital due to remarkably high calcium. Daughter also reports that pt had 2 falls over the past couple of week. PMD: Dr Neumann Psych: Dr Chase Miller Graphic Arts Instructor: Dr Cisneros Heme/Oncology: Dr Vilchis Allergy: Codeine. Medications: See bellow full list -PMHx: Multiple M, T2DM, HTN, COPD, Hypothyroidsm, GERD, hx of PE s/p IVC filter 2014. -PSHx: Ankle fracture repair, Cholecystectomy, Breast cyst surgery x2, tonsillectomy. -FHx: Father had Lung CA and HTN, Mother of a heart attack. -SHx: Denies Tobacco/ETOH/Rec Drug use. Next of Kin: Daughter Megha [phone] Code status: Full code At ED: --Labwork was remarkable for serum Calcium of 15-high and Magnesium of 1.0-low. --Head CT: No evidence of acute intracranial hemorrhage, mass effect or midline shift. --Magnesium Sulfate 2gr administered --IV Fluids administered Present on Admission - Present on Admission Any Indicators Present on Admission: Yes History of DVT/PE: Yes History of Uncontrolled Diabetes: Yes Review of Systems - Review of Systems Systems not reviewed;Unavailable: Altered Mental Status Past Patient History - Infectious Disease Hx of Infectious Diseases: None - Tetanus Immunizations Tetanus Immunization: Unknown - Past Medical History & Family History Past Medical History?: Yes - Past Social History Smoking Status: Never Smoked - CARDIAC Hx Congestive Heart Failure: Yes Hx Hypercholesterolemia: Yes Hx Hypertension: Yes - PULMONARY Hx Asthma: Yes Hx Chronic Obstructive Pulmonary Disease (COPD): Yes Hx Emphysema: Yes Hx Pneumonia: Yes Hx Pulmonary Embolism: Yes Hx Sleep Apnea: Yes - NEUROLOGICAL Hx Migraine: Yes Hx Parkinson's Disease: Yes - HEENT Hx HEENT Problems: No - RENAL Hx Chronic Kidney Disease: No - ENDOCRINE/METABOLIC Hx Hypothyroidism: Yes - HEMATOLOGICAL/ONCOLOGICAL Hx Anemia: Yes Hx Human Immunodeficiency Virus (HIV): No - INTEGUMENTARY Hx Dermatological Problems: No - MUSCULOSKELETAL/RHEUMATOLOGICAL Hx Arthritis: Yes Hx Fractures: Yes Hx Rheumatoid Arthritis: Yes - GASTROINTESTINAL Hx Gastrointestinal Disorders: No - GENITOURINARY/GYNECOLOGICAL Hx Genitourinary Disorders: Yes Hx Incontinence: Yes - PSYCHIATRIC Hx Anxiety: Yes Hx Depression: Yes - SURGICAL HISTORY Hx Appendectomy: Yes Hx Cholecystectomy: Yes Hx Tonsillectomy: Yes - ANESTHESIA Hx Anesthesia: Yes Hx Anesthesia Reactions: Yes (Resp. Distress) Hx Malignant Hyperthermia: No Meds Allergies/Adverse Reactions: Allergies Allergy/AdvReac Type Severity Reaction Status Date / Time codeine AdvReac syncope, Verified 03/10/18 12:43 diaphoresis Physical Exam - Constitutional Appears: No Acute Distress, Confused - Head Exam Head Exam: NORMAL INSPECTION - Eye Exam Eye Exam: EOMI, Normal appearance - ENT Exam ENT Exam: Mucous Membranes Dry - Neck Exam Neck exam: Positive for: Full Rom, Normal Inspection - Respiratory Exam Respiratory Exam: NORMAL BREATHING PATTERN. absent: Rhonchi, Wheezes, Respiratory Distress - Cardiovascular Exam Cardiovascular Exam: +S1, +S2 - GI/Abdominal Exam GI & Abdominal Exam: Normal Bowel Sounds, Soft. absent: Tenderness - Extremities Exam Extremities exam: Negative for: calf tenderness, pedal edema - Neurological Exam Neurological exam: Altered Results - Vital Signs Recent Vital Signs: Last Vital Signs Temp 97.9 F 03/23/18 19:56 Pulse 93 H 03/23/18 19:56 Resp 16 03/23/18 19:56 BP 104/69 03/23/18 19:56 Pulse Ox 97 03/23/18 19:56 - Labs Result Diagrams: 03/23/18 17:02 03/23/18 17:02 Labs: Laboratory Results - last 24 hr 03/23/18 03/23/18 03/23/18 16:51 17:02 17:02 WBC 10.8 D RBC 4.02 Hgb 11.6 L Hct 35.1 MCV 87.2 MCH 28.8 MCHC 33.0 RDW 17.3 H Plt Count 212 MPV 8.8 Neut % (Auto) 79.2 H Lymph % (Auto) 9.9 L [place] % (Auto) 10.0 Eos % (Auto) 0.5 Baso % (Auto) 0.4 Neut # (Auto) 8.6 H Lymph # (Auto) 1.1 Major # (Auto) 1.1 H Eos # (Auto) 0.0 Baso # (Auto) 0.0 Neutrophils % (Manual) 79 H Band Neutrophils % 3 H Lymphocytes % (Manual) 10 L Monocytes % (Manual) 7 Eosinophils % (Manual) 1 Platelet Estimate Normal Anisocytosis (manual) Slight Microcytosis (manual) Slight Tear Drop Cells Slight PT INR APTT Sodium Potassium Chloride Carbon Dioxide Anion Gap BUN Creatinine Est GFR ( Amer) Est GFR (Non-Af Amer) POC Glucose (mg/dL) 76 Random Glucose Calcium Phosphorus 3.0 Magnesium 1.0 L* D Total Bilirubin AST ALT Alkaline Phosphatase Troponin I Total Protein Albumin Globulin Albumin/Globulin Ratio Urine Color Urine Clarity Urine pH Ur Specific [place] Urine Protein Urine Glucose (UA) Urine Ketones Urine Blood Urine Nitrate Urine Bilirubin Urine Urobilinogen Ur Leukocyte Esterase Urine RBC (Auto) Urine Microscopic WBC Ur Squamous Epith Cells Hyaline Casts 03/23/18 03/23/18 03/23/18 17:02 17:02 20:14 WBC RBC Hgb Hct MCV MCH MCHC RDW Plt Count MPV Neut % (Auto) Lymph % (Auto) Major % (Auto) Eos % (Auto) Baso % (Auto) Neut # (Auto) Lymph # (Auto) Major # (Auto) Eos # (Auto) Baso # (Auto) Neutrophils % (Manual) Band Neutrophils % Lymphocytes % (Manual) Monocytes % (Manual) Eosinophils % (Manual) Platelet Estimate Anisocytosis (manual) Microcytosis (manual) Tear Drop Cells PT 11.8 INR 1.0 APTT 29.2 Sodium 133 Potassium 3.8 Chloride 92 L Carbon Dioxide 34 H Anion Gap 11 BUN 43 H Creatinine 1.3 H Est GFR ( Amer) 49 Est GFR (Non-Af Amer) 40 POC Glucose (mg/dL) Random Glucose 93 Calcium 15.0 H* D Phosphorus Magnesium Total Bilirubin 0.6 AST 37 H D ALT 30 Alkaline Phosphatase 70 Troponin I 0.0210 Total Protein 7.1 Albumin 3.8 Globulin 3.3 Albumin/Globulin Ratio 1.1 Urine Color Yellow Urine Clarity Clear Urine pH 6.0 Ur Specific [place] 1.013 Urine Protein Negative Urine Glucose (UA) Neg Urine Ketones Negative Urine Blood Negative Urine Nitrate Negative Urine Bilirubin Negative Urine Urobilinogen 0.2-1.0 Ur Leukocyte Esterase Neg Urine RBC (Auto) 2 Urine Microscopic WBC 2 Ur Squamous Epith Cells 1 Hyaline Casts 3-5 H Assessment & Plan - Assessment and Plan (Free Text) Assessment: 72 yo F with a PMHx of multiple myeloma, DM, HTN, COPD, 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 PLAN: >Hypercalcemia --Possibly due to dehydration, considering multiple myeloma complication --Hematology Consult, Dr Vilchis --Nephrology Consult, Dr Nava --IV NSS at 150mL/hr --F/U PTH, PTH-rP, vitamin D (D2 and D3), TSH, CMP, Magnesium and Phosphorus serum level. --Initiate Calcitonin as per Nephrology. (Pharmacy requesting another option due to high cost of medication) --Will initate biphosphonate or Lasix after revealing cause of hypercalcemia. >Altered Mental Status/Metabolic Encephalopathy --Due to hypercalcemia, hypomagnesemia, dehydration. --Neuro checks --IV NSS at 150ml/hr >Hypomagnesemia --Mg 1.0 at ED --S/P 2gm of MgSO --F/U serum Mg nect morning >Multiple Myeloma --Heme/Onc on board: Dr. Vilchis --Bortezomib on hold, will administer in outpatient setting. >IDDM --C/w home meds --Accuchecks --ISS >CHF/HTN --Echocardiogram on 08/25/17 showed LVEF 60-65%, grade I abnormal relaxation pattern. --Possibly diastolic dysfunction-CHF --C/w home meds --Monitor vitals >COPD/Pulm HTN --Resumed home meds >DVT Prophylaxis --Lovenox 40mg SC daily --SCD Case discussed with Dr Venu Mckee PGY-2 - Date & Time Date: 03/23/18 Time: 19:00
[2018-03-23] MEDS ORDERED: Insulin Detemir 100 Units/ml Inj SC SCH (22:00)
--- NOTE | 2018-03-23 22:15 | CP.PCM.CON ---
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 She has had chronic electrolyte issues which were felt to be related to Revlimid. Since then Revlimid has been discontinued for several month but her electrolyte issues persist. Past medical history: type II DM, hypertension, COPD, sleep apnea with pulmonary hypertension, multiple myeloma with lytic bone lesions. Past surgical history: None Family history: Denies hematologic and oncologic problems. Social history: Denies tobacco, alcohol, and illicit drug use. Allergies: Codeine. Review of systems: All remaining ROS including HEENT, cardiovascular, respiratory, gastrointestinal, genitourinary, musculoskeletal, dermatologic, neurologic, and psychiatric are negative unless mentioned in the HPI. Past Patient History - Infectious Disease Hx of Infectious Diseases: None - Tetanus Immunizations Tetanus Immunization: Unknown - Past Medical History & Family History Past Medical History?: Yes - Past Social History Smoking Status: Never Smoked - CARDIAC Hx Congestive Heart Failure: Yes Hx Hypercholesterolemia: Yes Hx Hypertension: Yes - PULMONARY Hx Asthma: Yes Hx Chronic Obstructive Pulmonary Disease (COPD): Yes Hx Emphysema: Yes Hx Pneumonia: Yes Hx Pulmonary Embolism: Yes Hx Sleep Apnea: Yes - NEUROLOGICAL Hx Migraine: Yes Hx Parkinson's Disease: Yes - HEENT Hx HEENT Problems: No - RENAL Hx Chronic Kidney Disease: No - ENDOCRINE/METABOLIC Hx Hypothyroidism: Yes - HEMATOLOGICAL/ONCOLOGICAL Hx Anemia: Yes Hx Human Immunodeficiency Virus (HIV): No - INTEGUMENTARY Hx Dermatological Problems: No - MUSCULOSKELETAL/RHEUMATOLOGICAL Hx Arthritis: Yes Hx Fractures: Yes Hx Rheumatoid Arthritis: Yes - GASTROINTESTINAL Hx Gastrointestinal Disorders: No - GENITOURINARY/GYNECOLOGICAL Hx Genitourinary Disorders: Yes Hx Incontinence: Yes - PSYCHIATRIC Hx Anxiety: Yes Hx Depression: Yes - SURGICAL HISTORY Hx Appendectomy: Yes Hx Cholecystectomy: Yes Hx Tonsillectomy: Yes - ANESTHESIA Hx Anesthesia: Yes Hx Anesthesia Reactions: Yes (Resp. Distress) Hx Malignant Hyperthermia: No Meds Allergies/Adverse Reactions: Allergies Allergy/AdvReac Type Severity Reaction Status Date / Time codeine AdvReac syncope, Verified 03/10/18 12:43 diaphoresis - Medications Medications: Current Medications Albuterol/Ipratropium (Duoneb 3 Mg/0.5 Mg (3 Ml) Ud) 3 ml INH RQ6 PRN PRN Reason: Shortness of Breath Aripiprazole (Abilify) 2 mg PO HS [facility] Aspirin (Ecotrin) 81 mg PO DAILY [facility] Atorvastatin Calcium (Lipitor) 20 mg PO DAILY@2200 [facility] Benztropine Mesylate (Cogentin) 1 mg PO Q12 [facility] Bortezomib (Velcade) 3.5 mg IVP TUTH [facility] Clonazepam (Klonopin) 0.5 mg PO DAILY PRN PRN Reason: Anxiety Duloxetine HCl (Cymbalta) 60 mg PO DAILY [facility] Enalapril Maleate (Vasotec) 5 mg PO DAILY [facility] Enoxaparin Sodium (Lovenox) 40 mg SC DAILY [facility]; Protocol Escitalopram Oxalate (Lexapro) 10 mg PO DAILY [facility] Ferrous Sulfate (Feosol) 325 mg PO DAILY [facility] Gabapentin (Neurontin) 100 mg PO TID [facility] Hydrocortisone (Cortef) 10 mg PO HS [facility] Sodium Chloride (Sodium Chloride 0.9%) 1,000 mls @ 150 mls/hr IV .Q6H40M [facility] Stop: 03/24/18 22:03 Insulin Detemir (Levemir) 20 units SC HS [facility] Insulin Human Lispro (Humalog) 5 units SC TID [facility] Levothyroxine Sodium (Synthroid) 75 mcg PO DAILY@0630 [facility] Magnesium Oxide (Mag-Ox) 400 mg PO Q12 [facility] Metformin HCl (Glucophage) 500 mg PO BID [facility] Pantoprazole Sodium (Protonix Ec Tab) 40 mg PO DAILY [facility] Torsemide (Demadex) 20 mg PO DAILY [facility] Physical Exam - Head Exam Head Exam: ATRAUMATIC - Eye Exam Eye Exam: Normal appearance - ENT Exam ENT Exam: Mucous Membranes Dry - Respiratory Exam Respiratory Exam: NORMAL BREATHING PATTERN - Cardiovascular Exam Cardiovascular Exam: +S1, +S2 - GI/Abdominal Exam GI & Abdominal Exam: Normal Bowel Sounds - Extremities Exam Extremities exam: Positive for: pedal edema - Neurological Exam Neurological exam: Oriented x3 - Psychiatric Exam Psychiatric exam: Normal Affect, Normal Mood - Skin Skin Exam: Warm Results - Vital Signs Recent Vital Signs: Last Vital Signs Temp 98.0 F 03/23/18 21:36 Pulse 88 03/23/18 21:36 Resp 18 03/23/18 21:36 BP 105/52 L 03/23/18 21:36 Pulse Ox 98 03/23/18 21:36 - Labs Result Diagrams: 03/23/18 17:02 03/23/18 17:02 Labs: Laboratory Results - last 24 hr 03/23/18 03/23/18 03/23/18 16:51 17:02 17:02 WBC 10.8 D RBC 4.02 Hgb 11.6 L Hct 35.1 MCV 87.2 MCH 28.8 MCHC 33.0 RDW 17.3 H Plt Count 212 MPV 8.8 Neut % (Auto) 79.2 H Lymph % (Auto) 9.9 L [place] % (Auto) 10.0 Eos % (Auto) 0.5 Baso % (Auto) 0.4 Neut # (Auto) 8.6 H Lymph # (Auto) 1.1 [place] # (Auto) 1.1 H Eos # (Auto) 0.0 Baso # (Auto) 0.0 Neutrophils % (Manual) 79 H Band Neutrophils % 3 H Lymphocytes % (Manual) 10 L Monocytes % (Manual) 7 Eosinophils % (Manual) 1 Platelet Estimate Normal Anisocytosis (manual) Slight Microcytosis (manual) Slight Tear Drop Cells Slight PT INR APTT Sodium Potassium Chloride Carbon Dioxide Anion Gap BUN Creatinine Est GFR ( Amer) Est GFR (Non-Af Amer) POC Glucose (mg/dL) 76 Random Glucose Calcium Phosphorus 3.0 Magnesium 1.0 L* D Total Bilirubin AST ALT Alkaline Phosphatase Troponin I Total Protein Albumin Globulin Albumin/Globulin Ratio Urine Color Urine Clarity Urine pH Ur Specific [place] Urine Protein Urine Glucose (UA) Urine Ketones Urine Blood Urine Nitrate Urine Bilirubin Urine Urobilinogen Ur Leukocyte Esterase Urine RBC (Auto) Urine Microscopic WBC Ur Squamous Epith Cells Hyaline Casts 03/23/18 03/23/18 03/23/18 17:02 17:02 20:14 WBC RBC Hgb Hct MCV MCH MCHC RDW Plt Count MPV Neut % (Auto) Lymph % (Auto) [place] % (Auto) Eos % (Auto) Baso % (Auto) Neut # (Auto) Lymph # (Auto) [place] # (Auto) Eos # (Auto) Baso # (Auto) Neutrophils % (Manual) Band Neutrophils % Lymphocytes % (Manual) Monocytes % (Manual) Eosinophils % (Manual) Platelet Estimate Anisocytosis (manual) Microcytosis (manual) Tear Drop Cells PT 11.8 INR 1.0 APTT 29.2 Sodium 133 Potassium 3.8 Chloride 92 L Carbon Dioxide 34 H Anion Gap 11 BUN 43 H Creatinine 1.3 H Est GFR ( Amer) 49 Est GFR (Non-Af Amer) 40 POC Glucose (mg/dL) Random Glucose 93 Calcium 15.0 H* D Phosphorus Magnesium Total Bilirubin 0.6 AST 37 H D ALT 30 Alkaline Phosphatase 70 Troponin I 0.0210 Total Protein 7.1 Albumin 3.8 Globulin 3.3 Albumin/Globulin Ratio 1.1 Urine Color Yellow Urine Clarity Clear Urine pH 6.0 Ur Specific [place] 1.013 Urine Protein Negative Urine Glucose (UA) Neg Urine Ketones Negative Urine Blood Negative Urine Nitrate Negative Urine Bilirubin Negative Urine Urobilinogen 0.2-1.0 Ur Leukocyte Esterase Neg Urine RBC (Auto) 2 Urine Microscopic WBC 2 Ur Squamous Epith Cells 1 Hyaline Casts 3-5 H 03/23/18 21:46 WBC RBC Hgb Hct MCV MCH MCHC RDW Plt Count MPV Neut % (Auto) Lymph % (Auto) [place] % (Auto) Eos % (Auto) Baso % (Auto) Neut # (Auto) Lymph # (Auto) [place] # (Auto) Eos # (Auto) Baso # (Auto) Neutrophils % (Manual) Band Neutrophils % Lymphocytes % (Manual) Monocytes % (Manual) Eosinophils % (Manual) Platelet Estimate Anisocytosis (manual) Microcytosis (manual) Tear Drop Cells PT INR APTT Sodium Potassium Chloride Carbon Dioxide Anion Gap BUN Creatinine Est GFR ( Amer) Est GFR (Non-Af Amer) POC Glucose (mg/dL) 93 Random Glucose Calcium Phosphorus Magnesium Total Bilirubin AST ALT Alkaline Phosphatase Troponin I Total Protein Albumin Globulin Albumin/Globulin Ratio Urine Color Urine Clarity Urine pH Ur Specific [place] Urine Protein Urine Glucose (UA) Urine Ketones Urine Blood Urine Nitrate Urine Bilirubin Urine Urobilinogen Ur Leukocyte Esterase Urine RBC (Auto) Urine Microscopic WBC Ur Squamous Epith Cells Hyaline Casts
[2018-03-23] MEDS ORDERED: Calcitonin 400 Intl Units/2mL Inj SC SCH (22:30)
[2018-03-23] MEDS: Sodium Chloride 0.9% 1,000 ML IV SCH (23:33)
[2018-03-23] MEDS: Magnesium Oxide 400 mg Tab UD PO SCH (23:40)
[2018-03-24 00:12] LABS: VENOUS BLOOD GAS BASE EXCESS 6.9 mmol/L (0.0-2.0); VENOUS BLOOD GAS PCO2 43 mmHg (40-60); VENOUS BLOOD GAS PO2 79 mm/Hg (30-55); VENOUS BLOOD PH 7.47 (7.32-7.43)
[2018-03-24] MEDS ORDERED: Dextrose 50% SYRINGE Inj (50 ml) IV PRN (00:27)
[2018-03-24] MEDS ORDERED: Glucagon Recombinant 1 mg Inj IM PRN (00:27)
[2018-03-24 00:31] LABS: CALCIUM 14.3 mg/dL (8.4-10.2)
[2018-03-24] MEDS ORDERED: Magnesium Sulfate 2 gm/50 ml 2 GM/50 ML BAG IVPB ONE (00:37)
[2018-03-24] MEDS: Calcitonin 400 Intl Units/2mL Inj IM SCH ×2 (01:18→20:30)
[2018-03-24] MEDS: Albuterol-Ipratrop 3 mg / 0.5 (3 ml) UD INH PRN (05:27)
[2018-03-24] MEDS: Sodium Chloride 0.9% 1,000 ML IV SCH ×2 (06:05→12:15)
[2018-03-24 06:14] LABS: ALBUMIN 3.1 g/dL (3.5-5.0); CALCIUM 13.4 mg/dL (8.4-10.2)
[2018-03-24] MEDS ORDERED: Levothyroxine 75 MCG TAB PO SCH (06:30)
[2018-03-24] MEDS: Insulin Lispro (humaLOG) 100 Units/ml Inj SC SCH ×4 (06:36→22:48)
--- NOTE | 2018-03-24 07:58 | RAD ---
Date of service: 03/23/2018 HISTORY: Hypercalcemia COMPARISON: Chest x-ray 03/10/2018. CT chest 03/10/2018 TECHNIQUE: Chest one view . FINDINGS: LUNGS: There is retrocardiac airspace opacity with suggestion of air bronchograms. There is scarring versus decreasing airspace opacity of the right upper lobe abutting the fissure. PLEURA: No pleural effusion is identified. CARDIOVASCULAR: Stable cardiomegaly. Atherosclerotic calcifications present of the aorta. OSSEOUS STRUCTURES: Degenerative changes noted of the spine. VISUALIZED UPPER ABDOMEN: Unremarkable. OTHER FINDINGS: None. IMPRESSION: Retrocardiac airspace opacity with suggestion of air bronchograms. Findings may represent infectious/inflammatory process. Scarring versus decreasing airspace opacity of the right upper lobe abutting the fissure.
--- NOTE | 2018-03-24 08:01 | CARD ---
APPROVED REPORT Date of service: 03/23/2018 EKG Measurement Heart [id number] <Conclusion> Normal sinus rhythm Possible Left atrial enlargement Prolonged QT Abnormal ECG
[2018-03-24] MEDS ORDERED: Insulin Lispro (humaLOG) 100 Units/ml Inj SC SCH (09:00)
[2018-03-24] MEDS: Enoxaparin 40 mg Syringe SC SCH (09:07)
[2018-03-24] MEDS: Magnesium Oxide 400 mg Tab UD PO SCH ×2 (09:07→21:23)
[2018-03-24] MEDS: Pantoprazole 40 mg EC Tab PO SCH (09:11)
[2018-03-24 10:10] LABS: CALCIUM 12.9 mg/dL (8.4-10.2)
[2018-03-24] MEDS: RIOCIGUAT 2 MG PO SCH ×3 (10:30→17:37)
--- NOTE | 2018-03-24 11:19 | CP.PCM.PN ---
Subjective - Date & Time of Evaluation Date of Evaluation: 03/24/18 Time of Evaluation: 08:00 - Subjective Subjective: Pt seen and examinedwith Dr. Neumann. Daughter at the bedside. States her mental status is slightly improved since yesterday but she is still not like herself. Daughter notes that she was trying to get out of bed last night. Pt seen lying in bed with eyes open, no distress noted, follows commands, says good morning, denies pain/discomfort. Noted to have difficulty holding utensil which daughter states as been happening for the past 2 weeks. Calcium now 12.9. Objective - Vital Signs/Intake and Output Vital Signs (last 24 hours): Temp Pulse Resp BP Pulse Ox 97.7 F 91 H 18 112/58 L 97 03/24/18 08:00 03/24/18 08:00 03/24/18 08:00 03/24/18 10:29 03/24/18 08:00 - Medications Medications: Current Medications Albuterol/Ipratropium (Duoneb 3 Mg/0.5 Mg (3 Ml) Ud) 3 ml INH RQ6 PRN PRN Reason: Shortness of Breath Last Admin: 03/24/18 05:27 Dose: 3 ml Aripiprazole (Abilify) 2 mg PO HS [facility] Last Admin: 03/23/18 23:39 Dose: 2 mg Aspirin (Ecotrin) 81 mg PO DAILY [facility] Last Admin: 03/24/18 09:08 Dose: 81 mg Atorvastatin Calcium (Lipitor) 20 mg PO DAILY@2200 [facility] Benztropine Mesylate (Cogentin) 1 mg PO Q12 [facility] Last Admin: 03/24/18 09:09 Dose: 1 mg Bortezomib (Velcade) 3.5 mg IVP TUTH [facility] Buspirone HCl (Buspar) 15 mg PO Q12 [facility] Last Admin: 03/24/18 10:30 Dose: 15 mg Calcitonin [place] (Miacalcin) 300 intlu IM Q12 [facility] Last Admin: 03/24/18 01:18 Dose: 300 intlu Clonazepam (Klonopin) 0.5 mg PO DAILY PRN PRN Reason: Anxiety Dextrose (Dextrose 50% Inj) 0 ml IV STAT PRN; Protocol PRN Reason: Hypoglycemia Protocol Dextrose (Glutose 15) 0 gm PO ONCE PRN; Protocol PRN Reason: Hypoglycemia Protocol Duloxetine HCl (Cymbalta) 60 mg PO DAILY [facility] Last Admin: 03/24/18 09:10 Dose: 60 mg Enalapril Maleate (Vasotec) 5 mg PO DAILY [facility] Enoxaparin Sodium (Lovenox) 40 mg SC DAILY [facility]; Protocol Last Admin: 03/24/18 09:07 Dose: 40 mg Escitalopram Oxalate (Lexapro) 10 mg PO DAILY [facility] Last Admin: 03/24/18 09:08 Dose: 10 mg Ferrous Sulfate (Feosol) 325 mg PO DAILY [facility] Last Admin: 03/24/18 09:10 Dose: 325 mg Gabapentin (Neurontin) 100 mg PO TID [facility] Last Admin: 03/24/18 09:07 Dose: 100 mg Glucagon (Glucagen Diagnostic Kit) 0 mg IM STAT PRN; Protocol PRN Reason: Hypoglycemia Protocol Home Med (Riociguat [Adempas]) 2 mg PO TID [facility] Last Admin: 03/24/18 10:30 Dose: 2 mg Hydrocortisone (Cortef) 10 mg PO [facility] Last Admin: 03/23/18 23:41 Dose: 10 mg Sodium Chloride (Sodium Chloride 0.9%) 1,000 mls @ 150 mls/hr IV .Q6H40M [facility] Stop: 03/24/18 22:03 Last Admin: 03/24/18 06:05 Dose: 150 mls/hr Insulin Detemir (Levemir) 20 units SC [facility] Last Admin: 03/23/18 23:43 Dose: 20 units Insulin Human Lispro (Humalog) 5 units SC TID [facility] Last Admin: 03/24/18 09:12 Dose: Not Given Insulin Human Lispro (Humalog) 0 units SC ACCU-CHECK [facility]; Protocol Last Admin: 03/24/18 06:36 Dose: Not Given Levothyroxine Sodium (Synthroid) 75 mcg PO DAILY@0630 [facility] Last Admin: 03/24/18 06:04 Dose: 75 mcg Magnesium Oxide (Mag-Ox) 400 mg PO Q12 [facility] Last Admin: 03/24/18 09:07 Dose: 400 mg Metformin HCl (Glucophage) 500 mg PO BID [facility] Last Admin: 03/24/18 09:07 Dose: 500 mg Pantoprazole Sodium (Protonix Ec Tab) 40 mg PO DAILY [facility] Last Admin: 03/24/18 09:11 Dose: 40 mg Sodium Phosphate (Potassium/Sodium Phosphate) 250 mg PO [facility] Stop: 03/24/18 22:01 Last Admin: 03/24/18 09:09 Dose: 250 mg Torsemide (Demadex) 20 mg PO DAILY [facility] - Labs Labs: 03/23/18 17:02 03/24/18 09:57 PT 11.8 Seconds (9.8-13.1) 03/23/18 17:02 INR 1.0 03/23/18 17:02 APTT 29.2 Seconds (25.6-37.1) 03/23/18 17:02 - Constitutional Appears: No Acute Distress - Eye Exam Eye Exam: Normal appearance - ENT Exam ENT Exam: Mucous Membranes Moist - Respiratory Exam Respiratory Exam: Clear to Ausculation Bilateral, Rales (BL lung bases). absent: Accessory Muscle Use, Rhonchi, Wheezes - Cardiovascular Exam Cardiovascular Exam: REGULAR RHYTHM, +S1, +S2. absent: Murmur - GI/Abdominal Exam GI & Abdominal Exam: Soft. absent: Tenderness - Extremities Exam Extremities Exam: Normal Capillary Refill, Pedal Edema - Neurological Exam Neurological Exam: Alert, Awake - Psychiatric Exam Psychiatric exam: Flat Affect - Skin Skin Exam: Normal Color Assessment and Plan - Assessment and Plan (Free Text) Assessment: 72 yo F with a PMHx of multiple myeloma, DM, HTN, COPD, 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 PLAN: >Hypercalcemia ---Improving, Ca 14.3>13.4>12.9 --Possibly due to dehydration, considering multiple myeloma complication --Hematology Consult, Dr Vilchis --Nephrology Consult, Dr Nava --IV NSS at 150mL/hr --Calcitonin 300 IM Q12 --S/P Lasix 20mg IV today --F/U PTH, PTH-rP, vitamin D (D2 and D3), TSH, CMP, Magnesium and Phosphorus serum level. --May initiate biphosphonate after revealing cause of hypercalcemia. >Altered Mental Status/Metabolic Encephalopathy --Due to hypercalcemia, hypomagnesemia, dehydration. --Neuro checks --IV NSS at 150ml/hr >Hypomagnesemia --Mg 1.0 at ED --S/P 2gm of MgSO --Follow mag >Hypophosphatemia --Posph 2.4 --Kphos administered, follow phos >Multiple Myeloma --Heme/Onc on board: Dr. Vilchis --Bortezomib on hold, will administer in outpatient setting >IDDM --Metforming held, Meal time Bolus held, put on low sliding scale and reduced basal insulin given pt's poor intake and low sugars --Accuchecks --Hypoglycemic protocol --ISS, low dose >CHF/HTN --Echocardiogram on 08/25/17 showed LVEF 60-65%, grade I abnormal relaxation pattern. --Possibly diastolic dysfunction-CHF --Maldonado placed, Monitor I/O's and daily weight --C/w home meds --Monitor vitals >COPD/Pulm HTN --Resumed home meds, daughter advised to bring Adempas (non formulary) >DVT Prophylaxis --Lovenox 40mg SC daily --SCD Case discussed with Dr Venu Cheema, PGY2
[2018-03-24] MEDS: Dextrose 5%/0.9% NS 1,000 ML IV SCH ×2 (13:24→20:27)
[2018-03-24 14:05] LABS: CREATININE, RANDOM URINE 60.5 mg/dL
[2018-03-24] MEDS: Insulin Regular 100 units/ml SC SCH ×2 (17:35→21:27)
--- NOTE | 2018-03-24 20:02 | CP.PCM.CON ---
History of Present Illness - History of Present Illness History of Present Illness: 72 yo F w/ pmh of htn, dm, severe pulmonary htn, COPD on home O2, sleep apnea on CPAP, hypothyroidism, s/p PE, and multiple myeloma on chemo, brought to ED due to severe hypercalcemia, nephrology being consulted for the same; History obtained from daughter as patient is lethargic and unable to answer questions; she reportedly has been lethargic since past few days with decreased PO intake and not ambulating (at baseline can walk with walker); patient has been on chemo for MM but per primary tufting creeler has missed some doses of chemo over past 1+ month and has missed prolia injections recently as well; No vomiting/diarrhea reported; patient has been incontinent; has been taking her meds regularly as they are administered by her daughter; Review of Systems - Constitutional Constitutional: As Per HPI - Cardiovascular Additional comments: no chest pain reported - Respiratory Additional comments: history of pulm htn, taking adempas regularly - Gastrointestinal Gastrointestinal: As Per HPI - Genitourinary Genitourinary: As Per HPI - Neurological Additional comments: coarse tremors chronic - Psychiatric Psychiatric: As Per HPI - Hematologic/Lymphatic Hematologic: As Per HPI Past Patient History - Infectious Disease Hx of Infectious Diseases: None - Tetanus Immunizations Tetanus Immunization: Unknown - Past Medical History & Family History Past Medical History?: Yes - Past Social History Smoking Status: Never Smoked - CARDIAC Hx Congestive Heart Failure: Yes Hx Hypercholesterolemia: Yes Hx Hypertension: Yes - PULMONARY Hx Asthma: Yes Hx Chronic Obstructive Pulmonary Disease (COPD): Yes Hx Emphysema: Yes Hx Pneumonia: Yes Hx Pulmonary Embolism: Yes Hx Sleep Apnea: Yes - NEUROLOGICAL Hx Migraine: Yes Hx Parkinson's Disease: Yes - HEENT Hx HEENT Problems: No - RENAL Hx Chronic Kidney Disease: No - ENDOCRINE/METABOLIC Hx Hypothyroidism: Yes - HEMATOLOGICAL/ONCOLOGICAL Hx Anemia: Yes Hx Human Immunodeficiency Virus (HIV): No - INTEGUMENTARY Hx Dermatological Problems: No - MUSCULOSKELETAL/RHEUMATOLOGICAL Hx Arthritis: Yes Hx Fractures: Yes Hx Rheumatoid Arthritis: Yes - GASTROINTESTINAL Hx Gastrointestinal Disorders: No - GENITOURINARY/GYNECOLOGICAL Hx Genitourinary Disorders: Yes Hx Incontinence: Yes - PSYCHIATRIC Hx Anxiety: Yes Hx Depression: Yes - SURGICAL HISTORY Hx Appendectomy: Yes Hx Cholecystectomy: Yes Hx Tonsillectomy: Yes - ANESTHESIA Hx Anesthesia: Yes Hx Anesthesia Reactions: Yes (Resp. Distress) Hx Malignant Hyperthermia: No Meds Allergies/Adverse Reactions: Allergies Allergy/AdvReac Type Severity Reaction Status Date / Time codeine AdvReac syncope, Verified 03/10/18 12:43 diaphoresis - Medications Medications: Current Medications Albuterol/Ipratropium (Duoneb 3 Mg/0.5 Mg (3 Ml) Ud) 3 ml INH RQ6 PRN PRN Reason: Shortness of Breath Last Admin: 03/24/18 05:27 Dose: 3 ml Aripiprazole (Abilify) 2 mg PO HS [facility] Last Admin: 03/23/18 23:39 Dose: 2 mg Aspirin (Ecotrin) 81 mg PO DAILY [facility] Last Admin: 03/24/18 09:08 Dose: 81 mg Atorvastatin Calcium (Lipitor) 20 mg PO DAILY@2200 [facility] Benztropine Mesylate (Cogentin) 1 mg PO Q12 [facility] Last Admin: 03/24/18 09:09 Dose: 1 mg Bortezomib (Velcade) 3.5 mg IVP TUTH [facility] Buspirone HCl (Buspar) 15 mg PO Q12 [facility] Last Admin: 03/24/18 10:30 Dose: 15 mg Calcitonin [place] (Miacalcin) 300 intlu IM Q12 [facility] Last Admin: 03/24/18 01:18 Dose: 300 intlu Clonazepam (Klonopin) 0.5 mg PO DAILY PRN PRN Reason: Anxiety Dextrose (Dextrose 50% Inj) 0 ml IV STAT PRN; Protocol PRN Reason: Hypoglycemia Protocol Dextrose (Glutose 15) 0 gm PO ONCE PRN; Protocol PRN Reason: Hypoglycemia Protocol Duloxetine HCl (Cymbalta) 60 mg PO DAILY [facility] Last Admin: 03/24/18 09:10 Dose: 60 mg Enalapril Maleate (Vasotec) 5 mg PO DAILY [facility] Enoxaparin Sodium (Lovenox) 40 mg SC DAILY [facility]; Protocol Last Admin: 03/24/18 09:07 Dose: 40 mg Escitalopram Oxalate (Lexapro) 10 mg PO DAILY [facility] Last Admin: 03/24/18 09:08 Dose: 10 mg Ferrous Sulfate (Feosol) 325 mg PO DAILY [facility] Last Admin: 03/24/18 09:10 Dose: 325 mg Gabapentin (Neurontin) 100 mg PO TID [facility] Last Admin: 03/24/18 17:36 Dose: 100 mg Glucagon (Glucagen Diagnostic Kit) 0 mg IM STAT PRN; Protocol PRN Reason: Hypoglycemia Protocol Home Med (Riociguat [Adempas]) 2 mg PO TID [facility] Last Admin: 03/24/18 17:37 Dose: 2 mg Hydrocortisone (Cortef) 10 mg PO [facility] Last Admin: 03/23/18 23:41 Dose: 10 mg Dextrose/Sodium Chloride (Dextrose 5%/0.9% Ns 1000 Ml) 1,000 mls @ 150 mls/hr IV .Q6H40M [facility] Stop: 03/25/18 12:54 Last Admin: 03/24/18 13:24 Dose: 150 mls/hr Insulin Detemir (Levemir) 10 units SC [facility] Insulin Human Lispro (Humalog) 5 units SC TID [facility] Last Admin: 03/24/18 09:12 Dose: Not Given Insulin Human Lispro (Humalog) 0 units SC ACCU-CHECK [facility]; Protocol Last Admin: 03/24/18 17:35 Dose: Not Given Insulin Human Regular (Humulin R) 0 units SC [facility]; Protocol Last Admin: 03/24/18 17:35 Dose: Not Given Levothyroxine Sodium (Synthroid) 100 mcg PO DAILY@0630 [facility] Magnesium Oxide (Mag-Ox) 400 mg PO Q12 [facility] Last Admin: 03/24/18 09:07 Dose: 400 mg Metformin HCl (Glucophage) 500 mg PO BID [facility] Last Admin: 03/24/18 09:07 Dose: 500 mg Pantoprazole Sodium (Protonix Ec Tab) 40 mg PO DAILY [facility] Last Admin: 03/24/18 09:11 Dose: 40 mg Sodium Phosphate (Potassium/Sodium Phosphate) 250 mg PO [facility] Stop: 03/24/18 22:01 Last Admin: 03/24/18 17:36 Dose: 250 mg Torsemide (Demadex) 20 mg PO DAILY [facility] Physical Exam - Constitutional Appears: Non-toxic, No Acute Distress - Eye Exam Eye Exam: Normal appearance - ENT Exam ENT Exam: Mucous Membranes Moist - Respiratory Exam Respiratory Exam: absent: Respiratory Distress Additional comments: dry rales bilaterally - Cardiovascular Exam Cardiovascular Exam: RRR, +S1, +S2. absent: Gallop, Rubs - GI/Abdominal Exam GI & Abdominal Exam: Soft. absent: Distended, Tenderness - Exam Exam: absent: Bladder Distension - Extremities Exam Additional comments: mild b/l lower leg edema; - Neurological Exam Additional comments: confused; not able to consistently follow commands - Psychiatric Exam Psychiatric exam: Normal Mood Additional comments: not agitated - Skin Skin Exam: Normal Color, Warm Results - Vital Signs Recent Vital Signs: Last Vital Signs Temp 97.7 F 03/24/18 19:59 Pulse 91 H 03/24/18 19:59 Resp 20 03/24/18 19:59 BP 131/68 03/24/18 19:59 Pulse Ox 97 03/24/18 19:59 - Labs Result Diagrams: 03/25/18 04:30 03/25/18 04:30 Labs: Laboratory Results - last 24 hr 03/23/18 03/23/18 03/23/18 00:09 17:02 20:14 Neutrophils % (Manual) 79 H Band Neutrophils % 3 H Lymphocytes % (Manual) 10 L Monocytes % (Manual) 7 Eosinophils % (Manual) 1 Platelet Estimate Normal Anisocytosis (manual) Slight Microcytosis (manual) Slight Tear Drop Cells Slight pO2 79 H ABG Carboxyhemoglobin 1.4 POC ABG HHb (Measured) 3.8 ABG Methemoglobin 0.6 VBG pH 7.47 H VBG pCO2 43 VBG HCO3 30.3 VBG O2 Sat (Calc) 96.1 H VBG Base Excess 6.9 H VBG Hgb O2 Saturation 94.2 L Hemoglobin 10.6 L Sodium Potassium Chloride Carbon Dioxide Anion Gap BUN Creatinine Est GFR ( Amer) Est GFR (Non-Af Amer) POC Glucose (mg/dL) Random Glucose Calcium Phosphorus Magnesium Total Bilirubin AST ALT Alkaline Phosphatase Total Protein Albumin Globulin Albumin/Globulin Ratio 25-OH Vitamin D Total TSH 3rd Generation Urine Color Yellow Urine Clarity Clear Urine pH 6.0 Ur Specific [place] 1.013 Urine Protein Negative Urine Glucose (UA) Neg Urine Ketones Negative Urine Blood Negative Urine Nitrate Negative Urine Bilirubin Negative Urine Urobilinogen 0.2-1.0 Ur Leukocyte Esterase Neg Urine RBC (Auto) 2 Urine Microscopic WBC 2 Ur Squamous Epith Cells 1 Hyaline Casts 3-5 H Ur Random Creatinine U Random Total Protein Ur Random Sodium 03/23/18 03/23/18 03/24/18 21:46 23:50 04:45 Neutrophils % (Manual) Band Neutrophils % Lymphocytes % (Manual) Monocytes % (Manual) Eosinophils % (Manual) Platelet Estimate Anisocytosis (manual) Microcytosis (manual) Tear Drop Cells pO2 ABG Carboxyhemoglobin POC ABG HHb (Measured) ABG Methemoglobin VBG pH VBG pCO2 VBG HCO3 VBG O2 Sat (Calc) VBG Base Excess VBG Hgb O2 Saturation Hemoglobin Sodium 132 134 Potassium 3.6 3.6 Chloride 96 L 101 Carbon Dioxide 31 H 32 H Anion Gap 9 L 5 L BUN 38 H 33 H Creatinine 1.1 1.2 Est GFR ( Amer) 59 54 Est GFR (Non-Af Amer) 49 44 POC Glucose (mg/dL) 93 Random Glucose 92 74 Calcium 14.3 H* 13.4 H* Phosphorus 2.4 L Magnesium 1.5 L 1.9 Total Bilirubin 0.4 AST 28 ALT 27 Alkaline Phosphatase 60 Total Protein 6.1 L Albumin 3.1 L Globulin 3.1 Albumin/Globulin Ratio 1.0 25-OH Vitamin D Total TSH 3rd Generation 9.77 H Urine Color Urine Clarity Urine pH Ur Specific [place] Urine Protein Urine Glucose (UA) Urine Ketones Urine Blood Urine Nitrate Urine Bilirubin Urine Urobilinogen Ur Leukocyte Esterase Urine RBC (Auto) Urine Microscopic WBC Ur Squamous Epith Cells Hyaline Casts Ur Random Creatinine U Random Total Protein Ur Random Sodium 03/24/18 03/24/18 03/24/18 04:45 05:02 05:54 Neutrophils % (Manual) Band Neutrophils % Lymphocytes % (Manual) Monocytes % (Manual) Eosinophils % (Manual) Platelet Estimate Anisocytosis (manual) Microcytosis (manual) Tear Drop Cells pO2 ABG Carboxyhemoglobin POC ABG HHb (Measured) ABG Methemoglobin VBG pH VBG pCO2 VBG HCO3 VBG O2 Sat (Calc) VBG Base Excess VBG Hgb O2 Saturation Hemoglobin Sodium Potassium Chloride Carbon Dioxide Anion Gap BUN Creatinine Est GFR ( Amer) Est GFR (Non-Af Amer) POC Glucose (mg/dL) 69 72 Random Glucose Calcium Phosphorus Magnesium Total Bilirubin AST ALT Alkaline Phosphatase Total Protein Albumin Globulin Albumin/Globulin Ratio 25-OH Vitamin D Total 34.2 TSH 3rd Generation Urine Color Urine Clarity Urine pH Ur Specific [place] Urine Protein Urine Glucose (UA) Urine Ketones Urine Blood Urine Nitrate Urine Bilirubin Urine Urobilinogen Ur Leukocyte Esterase Urine RBC (Auto) Urine Microscopic WBC Ur Squamous Epith Cells Hyaline Casts Ur Random Creatinine U Random Total Protein Ur Random Sodium 03/24/18 03/24/18 03/24/18 09:57 10:56 13:40 Neutrophils % (Manual) Band Neutrophils % Lymphocytes % (Manual) Monocytes % (Manual) Eosinophils % (Manual) Platelet Estimate Anisocytosis (manual) Microcytosis (manual) Tear Drop Cells pO2 ABG Carboxyhemoglobin POC ABG HHb (Measured) ABG Methemoglobin VBG pH VBG pCO2 VBG HCO3 VBG O2 Sat (Calc) VBG Base Excess VBG Hgb O2 Saturation Hemoglobin Sodium 134 Potassium 3.6 Chloride 101 Carbon Dioxide 27 Anion Gap 10 BUN 29 H Creatinine 1.1 Est GFR ( Amer) 59 Est GFR (Non-Af Amer) 49 POC Glucose (mg/dL) 88 Random Glucose 90 Calcium 12.9 H Phosphorus Magnesium Total Bilirubin AST ALT Alkaline Phosphatase Total Protein Albumin Globulin Albumin/Globulin Ratio 25-OH Vitamin D Total TSH 3rd Generation Urine Color Urine Clarity Urine pH Ur Specific [place] Urine Protein Urine Glucose (UA) Urine Ketones Urine Blood Urine Nitrate Urine Bilirubin Urine Urobilinogen Ur Leukocyte Esterase Urine RBC (Auto) Urine Microscopic WBC Ur Squamous Epith Cells Hyaline Casts Ur Random Creatinine 60.5 U Random Total Protein Ur Random Sodium 40 03/24/18 13:40 Neutrophils % (Manual) Band Neutrophils % Lymphocytes % (Manual) Monocytes % (Manual) Eosinophils % (Manual) Platelet Estimate Anisocytosis (manual) Microcytosis (manual) Tear Drop Cells pO2 ABG Carboxyhemoglobin POC ABG HHb (Measured) ABG Methemoglobin VBG pH VBG pCO2 VBG HCO3 VBG O2 Sat (Calc) VBG Base Excess VBG Hgb O2 Saturation Hemoglobin Sodium Potassium Chloride Carbon Dioxide Anion Gap BUN Creatinine Est GFR ( Amer) Est GFR (Non-Af Amer) POC Glucose (mg/dL) Random Glucose Calcium Phosphorus Magnesium Total Bilirubin AST ALT Alkaline Phosphatase Total Protein Albumin Globulin Albumin/Globulin Ratio 25-OH Vitamin D Total TSH 3rd Generation Urine Color Urine Clarity Urine pH Ur Specific [place] Urine Protein Urine Glucose (UA) Urine Ketones Urine Blood Urine Nitrate Urine Bilirubin Urine Urobilinogen Ur Leukocyte Esterase Urine RBC (Auto) Urine Microscopic WBC Ur Squamous Epith Cells Hyaline Casts Ur Random Creatinine U Random Total Protein 38 Ur Random Sodium Assessment & Plan (1) Hypercalcemia Assessment and Plan: Severe symptomatic hypercalcemia, likely multifactorial as calcium level was stable just 2 weeks ago; patient with multiple myeloma on chemo and was getting prolia injections with subsequent hypocalcemia that required calcitriol and calcium supplementation to correct; however, patient apparently missed some chemo doses and hasn't gotten prolia lately while still taking the above meds; also concern that MM is relapsing; Mild RUSSELL that is likely pre-renal but there is concern for tubular involvement with underlying MM and chance for myeloma cast nephropathy; -giving aggressive IVF for now with NS at 150 cc/hr to correct volume deficit and hypercalcemia, as well as to prevent renal tubular injury; -agree with intermittent doses of IV lasix to help induce calcium excretion; -calcitonin 4 IU/kg q12h for next 24-48 hrs; -avoid IV bisphosphonate (due to prolonged effect and patient's history of hypocalcemia); -holding all Ca supplementation/vit D for now; Status: Acute (2) CHF (congestive heart failure) Assessment and Plan: With diastolic dysfunction and pulm htn; continuing aggressive IVF for now, will need to monitor volume status carefully; holding torsemide for now; continue home dose of adempas for pulm htn; Status: Chronic Onset Date: 12/06/13 (3) Acute kidney injury Assessment and Plan: mild, see above; Status: Acute
[2018-03-24] MEDS: Insulin Detemir 100 Units/ml Inj SC SCH (21:39)
[2018-03-25] MEDS: Dextrose 5%/0.9% NS 1,000 ML IV SCH (03:00)
[2018-03-25 05:38] LABS: HEMOGLOBIN 9.6 g/dL (12.0-16.0); MEAN CELL VOLUME 88.3 fl (81.0-99.0); MEAN CORPUSCULAR HEMOGLOBIN 28.8 pg (27.0-31.0); MEAN CORPUSCULAR HGB CONC 32.6 g/dL (33.0-37.0); RBC 3.33 Mil/uL (3.80-5.20); WHITE BLOOD COUNT 6.9 K/uL (4.8-10.8)
[2018-03-25 06:12] LABS: ALBUMIN 2.9 g/dL (3.5-5.0); ALT/SGPT 24 U/L (9-52); AST/SGOT 23 U/L (14-36); BLOOD UREA NITROGEN 20 mg/dl (7-17); CALCIUM 10.2 mg/dL (8.4-10.2); GFR NON-AFRICAN AMERICAN 55
[2018-03-25] MEDS: Levothyroxine 100 MCG TAB PO SCH (06:13)
[2018-03-25] MEDS: Insulin Lispro (humaLOG) 100 Units/ml Inj SC SCH ×4 (06:14→22:00)
[2018-03-25] MEDS ORDERED: Magnesium Sulfate 2 gm/50 ml 2 GM/50 ML BAG IVPB ONE (06:27)
[2018-03-25] MEDS ORDERED: Potassium Chloride 20 mEq ER Tab PO ONE (06:33)
[2018-03-25] MEDS ORDERED: Dextrose 5%/0.9% NS 1,000 ML IV SCH (06:56)
[2018-03-25] MEDS: Insulin Regular 100 units/ml SC SCH ×2 (08:46→12:00)
[2018-03-25] MEDS: Pantoprazole 40 mg EC Tab PO SCH (08:51)
[2018-03-25] MEDS: Magnesium Oxide 400 mg Tab UD PO SCH ×2 (08:53→21:58)
[2018-03-25] MEDS: Enoxaparin 40 mg Syringe SC SCH (08:55)
[2018-03-25] MEDS: RIOCIGUAT 2 MG PO SCH ×3 (09:40→16:36)
--- NOTE | 2018-03-25 10:33 | CP.PCM.PN ---
Subjective - Date & Time of Evaluation Date of Evaluation: 03/25/18 Time of Evaluation: 08:00 - Subjective Subjective: Pt seen and examined with Dr. Neumann, daughter at bedside. Pt seen lying in bed, alert, says she is feeling better, responds to questions appropriately. Has been eating more than usual. Daughter states her mental status is improved, ho wever, not yet at baseline. Objective - Vital Signs/Intake and Output Vital Signs (last 24 hours): Temp Pulse Resp BP Pulse Ox 98.7 F 90 18 115/91 H 99 03/25/18 09:00 03/25/18 09:00 03/25/18 09:00 03/25/18 09:00 03/25/18 09:00 Intake and Output: 03/25/18 03/25/18 06:59 18:59 Intake Total 4400 Output Total 2900 Balance 1500 - Medications Medications: Current Medications Albuterol/Ipratropium (Duoneb 3 Mg/0.5 Mg (3 Ml) Ud) 3 ml INH RQ6 PRN PRN Reason: Shortness of Breath Last Admin: 03/24/18 05:27 Dose: 3 ml Aripiprazole (Abilify) 2 mg PO HS [facility] Last Admin: 03/24/18 21:22 Dose: 2 mg Aspirin (Ecotrin) 81 mg PO DAILY [facility] Last Admin: 03/25/18 08:52 Dose: 81 mg Atorvastatin Calcium (Lipitor) 20 mg PO DAILY@2200 [facility] Last Admin: 03/24/18 21:23 Dose: 20 mg Benztropine Mesylate (Cogentin) 1 mg PO Q12 [facility] Last Admin: 03/25/18 08:53 Dose: 1 mg Bortezomib (Velcade) 3.5 mg IVP TUTH [facility] Buspirone HCl (Buspar) 15 mg PO Q12 [facility] Last Admin: 03/25/18 08:52 Dose: 15 mg Clonazepam (Klonopin) 0.5 mg PO DAILY PRN PRN Reason: Anxiety Dextrose (Dextrose 50% Inj) 0 ml IV STAT PRN; Protocol PRN Reason: Hypoglycemia Protocol Dextrose (Glutose 15) 0 gm PO ONCE PRN; Protocol PRN Reason: Hypoglycemia Protocol Duloxetine HCl (Cymbalta) 60 mg PO DAILY [facility] Last Admin: 03/25/18 09:43 Dose: 60 mg Enalapril Maleate (Vasotec) 5 mg PO DAILY [facility] Enoxaparin Sodium (Lovenox) 40 mg SC DAILY [facility]; Protocol Last Admin: 03/25/18 08:55 Dose: 40 mg Escitalopram Oxalate (Lexapro) 10 mg PO DAILY [facility] Last Admin: 03/25/18 08:45 Dose: 10 mg Ferrous Sulfate (Feosol) 325 mg PO DAILY [facility] Last Admin: 03/25/18 08:45 Dose: 325 mg Gabapentin (Neurontin) 100 mg PO TID [facility] Last Admin: 03/25/18 08:50 Dose: 100 mg Glucagon (Glucagen Diagnostic Kit) 0 mg IM STAT PRN; Protocol PRN Reason: Hypoglycemia Protocol Home Med (Riociguat [Adempas]) 2 mg PO TID [facility] Last Admin: 03/25/18 09:40 Dose: 2 mg Hydrocortisone (Cortef) 10 mg PO [facility] Last Admin: 03/24/18 21:44 Dose: 10 mg Dextrose/Sodium Chloride (Dextrose 5%/0.9% Ns 1000 Ml) 1,000 mls @ 80 mls/hr IV .[id number] [facility] Stop: 03/25/18 12:54 Last Admin: 03/25/18 08:40 Dose: 80 mls/hr Insulin Detemir (Levemir) 10 units SC [facility] Last Admin: 03/24/18 21:39 Dose: Not Given Insulin Human Lispro (Humalog) 5 units SC TID [facility] Last Admin: 03/24/18 09:12 Dose: Not Given Insulin Human Lispro (Humalog) 0 units SC ACCU-CHECK [facility]; Protocol Last Admin: 03/25/18 06:14 Dose: Not Given Insulin Human Regular (Humulin R) 0 units SC [facility]; Protocol Last Admin: 03/25/18 08:46 Dose: Not Given Levothyroxine Sodium (Synthroid) 100 mcg PO DAILY@0630 [facility] Last Admin: 03/25/18 06:13 Dose: 100 mcg Magnesium Oxide (Mag-Ox) 400 mg PO Q12 [facility] Last Admin: 03/25/18 08:53 Dose: 400 mg Metformin HCl (Glucophage) 500 mg PO BID [facility] Last Admin: 03/24/18 09:07 Dose: 500 mg Pantoprazole Sodium (Protonix Ec Tab) 40 mg PO DAILY [facility] Last Admin: 03/25/18 08:51 Dose: 40 mg Torsemide (Demadex) 20 mg PO DAILY [facility] - Labs Labs: 03/25/18 04:30 03/25/18 04:30 PT 11.8 Seconds (9.8-13.1) 03/23/18 17:02 INR 1.0 03/23/18 17:02 APTT 29.2 Seconds (25.6-37.1) 03/23/18 17:02 - Constitutional Appears: No Acute Distress - Head Exam Head Exam: NORMAL INSPECTION - Eye Exam Eye Exam: Normal appearance - ENT Exam ENT Exam: Mucous Membranes Moist - Respiratory Exam Respiratory Exam: Clear to Ausculation Bilateral. absent: Rales, Wheezes - Cardiovascular Exam Cardiovascular Exam: REGULAR RHYTHM, +S1, +S2 - Extremities Exam Extremities Exam: absent: Pedal Edema - Neurological Exam Neurological Exam: Alert. absent: Oriented x3 - Psychiatric Exam Psychiatric exam: Normal Affect. absent: Anxious - Skin Skin Exam: Normal Color Assessment and Plan - Assessment and Plan (Free Text) Assessment: 72 yo F with a PMHx of multiple myeloma, DM, HTN, COPD, 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 Calcium levels and mental status improving. PLAN: >Hypercalcemia --Improving, Ca 14.3>13.4>12.9>10.2 --Possibly due to dehydration, considering multiple myeloma complication --Hematology Consult, Dr Vilchis --Nephrology Consult, Dr Nava --IV NSS at 80mL/hr --Calcitonin discontinued today in light of improving --S/P Lasix 20mg IV yesterday --Continue with Torsemide 20mg daily --F/U PTH, PTH-rP, vitamin D (D2 and D3), TSH, CMP, Magnesium and Phosphorus serum level. --May initiate biphosphonate after revealing cause of hypercalcemia. >Altered Mental Status/Metabolic Encephalopathy --Improving but not at baseline --Due to hypercalcemia, hypomagnesemia, dehydration. --Neuro checks --IV NSS at 80ml/hr >Hypomagnesemia --Mg 1.0 today, MgSo4 2gm administered --Follow mag >Hypophosphatemia --Improved, Posph 2.9 today --Continue to follow >Multiple Myeloma --Heme/Onc on board: Dr. Vilchis --Bortezomib on hold, will administer in outpatient setting >IDDM --Metforming held, Meal time Bolus held, put on low sliding scale and reduced basal insulin given pt's poor intake and low sugars --Accuchecks --Hypoglycemic protocol --ISS, low dose >CHF/HTN --Echocardiogram on 08/25/17 showed LVEF 60-65%, grade I abnormal relaxation pattern. --Possibly diastolic dysfunction-CHF --Maldonado placed, Monitor I/O's and daily weight --C/w home meds --Monitor vitals >COPD/Pulm HTN --Resumed home meds, daughter advised to bring Adempas (non formulary) >DVT Prophylaxis --Lovenox 40mg SC daily --SCD Case discussed with Dr Venu Cheema, PGY2
[2018-03-25 13:46] LABS: BLOOD UREA NITROGEN 15 mg/dl (7-17); CALCIUM 9.7 mg/dL (8.4-10.2); GFR NON-AFRICAN AMERICAN > 60
[2018-03-25] MEDS ORDERED: Magnesium Sulfate 2 gm/50 ml 2 GM/50 ML BAG IV ONE (19:30)
--- NOTE | 2018-03-25 20:05 | CP.PCM.PN ---
Subjective - Date & Time of Evaluation Date of Evaluation: 03/25/18 Time of Evaluation: 15:00 - Subjective Subjective: Reports feeling well; still confused and somewhat lethargic; Objective - Vital Signs/Intake and Output Vital Signs (last 24 hours): Temp Pulse Resp BP Pulse Ox 97.6 F 93 H 20 114/44 L 100 03/25/18 16:22 03/25/18 16:22 03/25/18 16:22 03/25/18 16:22 03/25/18 16:22 Intake and Output: 03/25/18 03/26/18 18:59 06:59 Intake Total 730 Output Total 600 Balance 130 - Medications Medications: Current Medications Acetaminophen (Tylenol 325mg Tab) 650 mg PO Q6 PRN PRN Reason: Pain, moderate (4-7) Albuterol/Ipratropium (Duoneb 3 Mg/0.5 Mg (3 Ml) Ud) 3 ml INH RQ6 PRN PRN Reason: Shortness of Breath Last Admin: 03/24/18 05:27 Dose: 3 ml Aripiprazole (Abilify) 2 mg PO HS [facility] Last Admin: 03/24/18 21:22 Dose: 2 mg Aspirin (Ecotrin) 81 mg PO DAILY [facility] Last Admin: 03/25/18 08:52 Dose: 81 mg Atorvastatin Calcium (Lipitor) 20 mg PO DAILY@2200 [facility] Last Admin: 03/24/18 21:23 Dose: 20 mg Benztropine Mesylate (Cogentin) 1 mg PO Q12 [facility] Last Admin: 03/25/18 08:53 Dose: 1 mg Bortezomib (Velcade) 3.5 mg IVP [facility] Buspirone HCl (Buspar) 15 mg PO Q12 [facility] Last Admin: 03/25/18 08:52 Dose: 15 mg Clonazepam (Klonopin) 0.5 mg PO DAILY PRN PRN Reason: Anxiety Dextrose (Dextrose 50% Inj) 0 ml IV STAT PRN; Protocol PRN Reason: Hypoglycemia Protocol Dextrose (Glutose 15) 0 gm PO ONCE PRN; Protocol PRN Reason: Hypoglycemia Protocol Duloxetine HCl (Cymbalta) 60 mg PO DAILY [facility] Last Admin: 03/25/18 09:43 Dose: 60 mg Enalapril Maleate (Vasotec) 5 mg PO DAILY [facility] Enoxaparin Sodium (Lovenox) 40 mg SC DAILY [facility]; Protocol Last Admin: 03/25/18 08:55 Dose: 40 mg Escitalopram Oxalate (Lexapro) 10 mg PO DAILY [facility] Last Admin: 03/25/18 08:45 Dose: 10 mg Ferrous Sulfate (Feosol) 325 mg PO DAILY [facility] Last Admin: 03/25/18 08:45 Dose: 325 mg Gabapentin (Neurontin) 100 mg PO TID [facility] Last Admin: 03/25/18 16:37 Dose: 100 mg Glucagon (Glucagen Diagnostic Kit) 0 mg IM STAT PRN; Protocol PRN Reason: Hypoglycemia Protocol Home Med (Riociguat [Adempas]) 2 mg PO TID [facility] Last Admin: 03/25/18 16:36 Dose: 2 mg Hydrocortisone (Cortef) 10 mg PO [facility] Last Admin: 03/24/18 21:44 Dose: 10 mg Magnesium Sulfate (Magnesium Sulfate 2 Gm/50 Ml Water) 2 gm in 50 mls @ 50 mls/hr IV ONCE ONE Stop: 03/25/18 20:29 Insulin Detemir (Levemir) 10 units SC [facility] Last Admin: 03/24/18 21:39 Dose: Not Given Insulin Human Lispro (Humalog) 5 units SC TID [facility] Last Admin: 03/24/18 09:12 Dose: Not Given Insulin Human Lispro (Humalog) 0 units SC ACCU-CHECK [facility]; Protocol Last Admin: 03/25/18 16:37 Dose: Not Given Levothyroxine Sodium (Synthroid) 100 mcg PO DAILY@0630 [facility] Last Admin: 03/25/18 06:13 Dose: 100 mcg Magnesium Oxide (Mag-Ox) 400 mg PO Q12 [facility] Last Admin: 03/25/18 08:53 Dose: 400 mg Metformin HCl (Glucophage) 500 mg PO BID [facility] Last Admin: 03/24/18 09:07 Dose: 500 mg Pantoprazole Sodium (Protonix Ec Tab) 40 mg PO DAILY [facility] Last Admin: 03/25/18 08:51 Dose: 40 mg Torsemide (Demadex) 20 mg PO DAILY [facility] - Labs Labs: 03/25/18 04:30 03/25/18 13:16 PT 11.8 Seconds (9.8-13.1) 03/23/18 17:02 INR 1.0 03/23/18 17:02 APTT 29.2 Seconds (25.6-37.1) 03/23/18 17:02 - Constitutional Appears: Non-toxic, No Acute Distress - Eye Exam Eye Exam: Normal appearance - Respiratory Exam Respiratory Exam: absent: Respiratory Distress Additional comments: chronic rales; - Cardiovascular Exam Cardiovascular Exam: RRR, +S1, +S2 - GI/Abdominal Exam GI & Abdominal Exam: Soft. absent: Distended, Tenderness - Extremities Exam Additional comments: minimal leg edema; - Neurological Exam Neurological Exam: Alert, Awake - Psychiatric Exam Psychiatric exam: Normal Mood. absent: Agitated - Skin Skin Exam: Warm. absent: Cyanosis Assessment and Plan (1) Hypercalcemia Assessment & Plan: Resolved; likely iatrogenic in the setting of MM; calcitonin now stopped; agree with decreasing IVF, should stop by tomorrow; -f/u with heme regarding chemo; -monitor for hypocalcemia, restart Ca and vitamin D supplementation accordingly; Status: Acute (2) CHF (congestive heart failure) Assessment & Plan: Euvolemic on exam but with underlying pulm htn/CHF; -resume torsemide 20 mg daily; Status: Chronic (3) Acute kidney injury Status: Resolved
[2018-03-25] MEDS: Insulin Detemir 100 Units/ml Inj SC SCH (22:03)
[2018-03-26] MEDS: Levothyroxine 100 MCG TAB PO SCH (06:03)
[2018-03-26 07:36] LABS: HEMOGLOBIN 9.8 g/dL (12.0-16.0); MEAN CELL VOLUME 88.1 fl (81.0-99.0); MEAN CORPUSCULAR HEMOGLOBIN 29.1 pg (27.0-31.0); RBC 3.36 Mil/uL (3.80-5.20); RED CELL DISTRIBUTION WIDTH 17.8 % (11.5-14.5); WHITE BLOOD COUNT 7.7 K/uL (4.8-10.8)
[2018-03-26 07:55] LABS: ALT/SGPT 20 U/L (9-52); AST/SGOT 26 U/L (14-36); BLOOD UREA NITROGEN 13 mg/dl (7-17); CALCIUM 9.2 mg/dL (8.4-10.2); GFR NON-AFRICAN AMERICAN > 60
[2018-03-26] MEDS ORDERED: Magnesium Oxide 400 mg Tab UD PO SCH (09:00)
[2018-03-26] MEDS: Enoxaparin 40 mg Syringe SC SCH (09:12)
[2018-03-26] MEDS: RIOCIGUAT 2 MG PO SCH ×3 (09:12→16:13)
[2018-03-26] MEDS: Insulin Lispro (humaLOG) 100 Units/ml Inj SC SCH ×4 (09:13→23:20)
[2018-03-26] MEDS: Magnesium Oxide 400 mg Tab UD PO SCH ×3 (09:14→21:07)
[2018-03-26] MEDS ORDERED: Magnesium Sulfate 2 gm/50 ml 2 GM/50 ML BAG IVPB SCH (10:00)
--- NOTE | 2018-03-26 13:41 | CP.PCM.PN ---
<Deneen Varela - Last Filed: 03/26/18 13:38> Subjective - Date & Time of Evaluation Date of Evaluation: 03/26/18 Time of Evaluation: 08:00 - Subjective Subjective: Pt seen and examined this morning with Dr. Roach at the bedside. Reports she feels better. Alert, following commands, and responding appropriately. Has mild generalized resting tremor. Ate most of her breakfast. As per RN, she attempted to get out of bed last night despite being told to ask for assistance. Becky Sys noted at bedside. Objective - Vital Signs/Intake and Output Vital Signs (last 24 hours): Temp Pulse Resp BP Pulse Ox 98.8 F 95 H 20 114/67 99 03/26/18 11:49 03/26/18 11:49 03/26/18 11:49 03/26/18 11:49 03/26/18 11:49 - Medications Medications: Current Medications Acetaminophen (Tylenol 325mg Tab) 650 mg PO Q6 PRN PRN Reason: Pain, moderate (4-7) Albuterol/Ipratropium (Duoneb 3 Mg/0.5 Mg (3 Ml) Ud) 3 ml INH RQ6 PRN PRN Reason: Shortness of Breath Last Admin: 03/24/18 05:27 Dose: 3 ml Aripiprazole (Abilify) 2 mg PO HS [facility] Last Admin: 03/25/18 21:59 Dose: 2 mg Aspirin (Ecotrin) 81 mg PO DAILY [facility] Last Admin: 03/26/18 09:17 Dose: 81 mg Atorvastatin Calcium (Lipitor) 20 mg PO DAILY@2200 [facility] Last Admin: 03/25/18 21:58 Dose: 20 mg Benztropine Mesylate (Cogentin) 1 mg PO Q12 [facility] Last Admin: 03/26/18 09:16 Dose: 1 mg Bortezomib (Velcade) 3.5 mg IVP [facility] Buspirone HCl (Buspar) 15 mg PO Q12 [facility] Last Admin: 03/26/18 09:16 Dose: 15 mg Clonazepam (Klonopin) 0.5 mg PO DAILY PRN PRN Reason: Anxiety Dextrose (Dextrose 50% Inj) 0 ml IV STAT PRN; Protocol PRN Reason: Hypoglycemia Protocol Dextrose (Glutose 15) 0 gm PO ONCE PRN; Protocol PRN Reason: Hypoglycemia Protocol Duloxetine HCl (Cymbalta) 60 mg PO DAILY [facility] Last Admin: 03/26/18 09:15 Dose: 60 mg Enalapril Maleate (Vasotec) 5 mg PO DAILY [facility] Enoxaparin Sodium (Lovenox) 40 mg SC DAILY [facility]; Protocol Last Admin: 03/26/18 09:12 Dose: 40 mg Escitalopram Oxalate (Lexapro) 10 mg PO DAILY [facility] Last Admin: 03/26/18 09:17 Dose: 10 mg Famotidine (Pepcid) 20 mg PO DAILY [facility] Last Admin: 03/26/18 09:20 Dose: 20 mg Ferrous Sulfate (Feosol) 325 mg PO DAILY [facility] Last Admin: 03/25/18 08:45 Dose: 325 mg Gabapentin (Neurontin) 100 mg PO TID [facility] Last Admin: 03/26/18 13:19 Dose: 100 mg Glucagon (Glucagen Diagnostic Kit) 0 mg IM STAT PRN; Protocol PRN Reason: Hypoglycemia Protocol Home Med (Riociguat [Adempas]) 2 mg PO TID [facility] Last Admin: 03/26/18 13:24 Dose: 2 mg Hydrocortisone (Cortef) 10 mg PO [facility] Last Admin: 03/25/18 21:58 Dose: 10 mg Magnesium Sulfate (Magnesium Sulfate 2 Gm/50 Ml Water) 2 gm in 50 mls @ 25 mls/hr IVPB Q6 [facility] Stop: 03/28/18 16:01 Insulin Detemir (Levemir) 10 units SC [facility] Last Admin: 03/25/18 22:03 Dose: 10 units Insulin Human Lispro (Humalog) 5 units SC TID [facility] Last Admin: 03/24/18 09:12 Dose: Not Given Insulin Human Lispro (Humalog) 0 units SC ACCU-CHECK [facility]; Protocol Last Admin: 03/26/18 12:30 Dose: Not Given Levothyroxine Sodium (Synthroid) 100 mcg PO DAILY@0630 [facility] Last Admin: 03/26/18 06:03 Dose: 100 mcg Magnesium Oxide (Mag-Ox) 400 mg PO Q12 [facility] Last Admin: 03/26/18 09:15 Dose: Not Given Metformin HCl (Glucophage) 500 mg PO BID [facility] Last Admin: 03/24/18 09:07 Dose: 500 mg Sodium Phosphate (Potassium/Sodium Phosphate) 250 mg PO [facility] Stop: 03/26/18 22:01 Last Admin: 03/26/18 13:23 Dose: 250 mg Torsemide (Demadex) 20 mg PO DAILY [facility] - Labs Labs: 03/26/18 06:15 03/26/18 06:15 PT 11.8 Seconds (9.8-13.1) 03/23/18 17:02 INR 1.0 03/23/18 17:02 APTT 29.2 Seconds (25.6-37.1) 03/23/18 17:02 - Constitutional Appears: No Acute Distress - Head Exam Head Exam: NORMAL INSPECTION - Eye Exam Eye Exam: Normal appearance - ENT Exam ENT Exam: Mucous Membranes Moist - Respiratory Exam Respiratory Exam: Rales (BL lower lung bases). absent: Wheezes - Cardiovascular Exam Cardiovascular Exam: REGULAR RHYTHM - GI/Abdominal Exam GI & Abdominal Exam: Soft, Normal Bowel Sounds. absent: Tenderness - Extremities Exam Extremities Exam: Normal Capillary Refill. absent: Pedal Edema - Neurological Exam Neurological Exam: Alert, Awake. absent: Motor Sensory Deficit Neuro motor strength exam: Left Upper Extremity: 4, Right Upper Extremity: 4, Left Lower Extremity: 4, Right Lower Extremity: 4 Additional comments: Generalized resting tremor noted in hands and face (chronic) - Psychiatric Exam Psychiatric exam: Normal Affect. absent: Anxious - Skin Skin Exam: Normal Color Assessment and Plan - Assessment and Plan (Free Text) Assessment: 72 yo F with a PMHx of multiple myeloma, DM, HTN, COPD, 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 Calcium levels and mental status improving slowly. PLAN: >Hypercalcemia --Resolved, Ca 14.3>13.4>12.9>10.2>9.2 --Possibly due to dehydration, missed Multiple Myeloma treatment --Hematology Consult, Dr Vilchis --Nephrology Consult, Dr Nava --Holding daily Torsemide 20mg daily --Continue to monitor >Altered Mental Status/Metabolic Encephalopathy --Improving but not at baseline --Head CT negative for acute findings --Due to hypercalcemia, hypomagnesemia, dehydration. --Neuro checks >Hypomagnesemia --Mg 1.9 today, MgSo4 2gm administered --Continue with Mag Oxide 400mg BID --Discontinued PPI --Follow mag >Hypophosphatemia --Improved, Posph 2.4 today --Continue to follow >Multiple Myeloma --Heme/Onc on board: Dr. Vilchis --Bortezomib on hold, will administer in outpatient setting >IDDM --Metforming held, Meal time Bolus held, put on low sliding scale and reduced basal insulin given pt's poor intake and low sugars --Accuchecks --Hypoglycemic protocol --ISS, low dose >CHF/HTN --Echocardiogram on 08/25/17 showed LVEF 60-65%, grade I abnormal relaxation pattern. --Possibly diastolic dysfunction-CHF --Holding torsemide for now due to severe electrolyte abnormalities; will monitor volume statu >COPD/Pulm HTN --Resumed home meds, daughter advised to bring Adempas (non formulary) >DVT Prophylaxis --Lovenox 40mg SC daily --SCD Case discussed with Dr Doc Cheema, PGY2 <Holley Roach - Last Filed: 03/26/18 16:58> Objective - Vital Signs/Intake and Output Vital Signs (last 24 hours): Temp Pulse Resp BP Pulse Ox 98.7 F 95 H 18 125/62 97 03/26/18 15:52 03/26/18 15:52 03/26/18 15:52 03/26/18 15:52 03/26/18 15:52 - Medications Medications: Current Medications Acetaminophen (Tylenol 325mg Tab) 650 mg PO Q6 PRN PRN Reason: Pain, moderate (4-7) Albuterol/Ipratropium (Duoneb 3 Mg/0.5 Mg (3 Ml) Ud) 3 ml INH RQ6 PRN PRN Reason: Shortness of Breath Last Admin: 03/24/18 05:27 Dose: 3 ml Aripiprazole (Abilify) 2 mg PO HS [facility] Last Admin: 03/25/18 21:59 Dose: 2 mg Aspirin (Ecotrin) 81 mg PO DAILY [facility] Last Admin: 03/26/18 09:17 Dose: 81 mg Atorvastatin Calcium (Lipitor) 20 mg PO DAILY@2200 [facility] Last Admin: 03/25/18 21:58 Dose: 20 mg Benztropine Mesylate (Cogentin) 1 mg PO Q12 [facility] Last Admin: 03/26/18 09:16 Dose: 1 mg Bortezomib (Velcade) 3.5 mg IVP [facility] Buspirone HCl (Buspar) 15 mg PO Q12 [facility] Last Admin: 03/26/18 09:16 Dose: 15 mg Clonazepam (Klonopin) 0.5 mg PO DAILY PRN PRN Reason: Anxiety Dextrose (Dextrose 50% Inj) 0 ml IV STAT PRN; Protocol PRN Reason: Hypoglycemia Protocol Dextrose (Glutose 15) 0 gm PO ONCE PRN; Protocol PRN Reason: Hypoglycemia Protocol Duloxetine HCl (Cymbalta) 60 mg PO DAILY [facility] Last Admin: 03/26/18 09:15 Dose: 60 mg Enalapril Maleate (Vasotec) 5 mg PO DAILY [facility] Enoxaparin Sodium (Lovenox) 40 mg SC DAILY [facility]; Protocol Last Admin: 03/26/18 09:12 Dose: 40 mg Escitalopram Oxalate (Lexapro) 10 mg PO DAILY [facility] Last Admin: 03/26/18 09:17 Dose: 10 mg Famotidine (Pepcid) 20 mg PO DAILY [facility] Last Admin: 03/26/18 09:20 Dose: 20 mg Ferrous Sulfate (Feosol) 325 mg PO DAILY [facility] Last Admin: 03/25/18 08:45 Dose: 325 mg Gabapentin (Neurontin) 100 mg PO TID [facility] Last Admin: 03/26/18 16:14 Dose: 100 mg Glucagon (Glucagen Diagnostic Kit) 0 mg IM STAT PRN; Protocol PRN Reason: Hypoglycemia Protocol Home Med (Riociguat [Adempas]) 2 mg PO TID [facility] Last Admin: 03/26/18 16:13 Dose: 2 mg Hydrocortisone (Cortef) 10 mg PO [facility] Last Admin: 03/25/18 21:58 Dose: 10 mg Magnesium Sulfate (Magnesium Sulfate 2 Gm/50 Ml Water) 2 gm in 50 mls @ 25 m ls/hr IVPB Q6 [facility] Stop: 03/27/18 05:59 Last Admin: 03/26/18 15:43 Dose: 25 mls/hr Insulin Detemir (Levemir) 10 units SC [facility] Last Admin: 03/25/18 22:03 Dose: 10 units Insulin Human Lispro (Humalog) 5 units SC TID [facility] Last Admin: 03/24/18 09:12 Dose: Not Given Insulin Human Lispro (Humalog) 0 units SC ACCU-CHECK [facility]; Protocol Last Admin: 03/26/18 16:12 Dose: Not Given Levothyroxine Sodium (Synthroid) 100 mcg PO DAILY@0630 [facility] Last Admin: 03/26/18 06:03 Dose: 100 mcg Magnesium Oxide (Mag-Ox) 400 mg PO Q12 [facility] Last Admin: 03/26/18 09:15 Dose: Not Given Metformin HCl (Glucophage) 500 mg PO BID [facility] Last Admin: 03/24/18 09:07 Dose: 500 mg Sodium Phosphate (Potassium/Sodium Phosphate) 250 mg PO [facility] Stop: 03/26/18 22:01 Last Admin: 03/26/18 13:23 Dose: 250 mg Torsemide (Demadex) 20 mg PO DAILY [facility] - Labs Labs: 03/26/18 06:15 03/26/18 15:00 PT 11.8 Seconds (9.8-13.1) 03/23/18 17:02 INR 1.0 03/23/18 17:02 APTT 29.2 Seconds (25.6-37.1) 03/23/18 17:02 Attending/Attestation - Attestation I have personally seen and examined this patient.: Yes I have fully participated in the care of the patient.: Yes I have reviewed all pertinent clinical information, including history, physical exam and plan: Yes Notes (Text): Hypomagnesemia - will give IV Mg So4 2 grams q6 - Hold Demadex and Protonix w/c could further lower Mg, Hypercalcemia may have also contributed Hypercalcemia , ? sec to multiple Myeloma vs sec to Calcium supplements - pt not on any chemotx w/c causes hypercalcemia - work up for paraneoplastic neg so far - PTH intact low, TSH sl elevated - will cont to monitor AMS likely /Metabolic Encephalopathy
[2018-03-26] MEDS: Magnesium Sulfate 2 gm/50 ml 2 GM/50 ML BAG IVPB SCH ×2 (15:43→21:03)
[2018-03-26 15:50] LABS: ALBUMIN 3.1 g/dL (3.5-5.0); ALT/SGPT 14 U/L (9-52); AST/SGOT 22 U/L (14-36); BLOOD UREA NITROGEN 13 mg/dl (7-17); CALCIUM 8.8 mg/dL (8.4-10.2); GFR NON-AFRICAN AMERICAN > 60
[2018-03-26] MEDS: Insulin Detemir 100 Units/ml Inj SC SCH (23:21)
--- NOTE | 2018-03-26 23:51 | CP.PCM.PN ---
Subjective - Date & Time of Evaluation Date of Evaluation: 03/26/18 Time of Evaluation: 12:30 - Subjective Subjective: Patient eating most of her meals; more alert, talking over phone; Objective - Vital Signs/Intake and Output Vital Signs (last 24 hours): Temp Pulse Resp BP Pulse Ox 98.1 F 90 19 112/74 96 03/26/18 19:59 03/26/18 23:25 03/26/18 19:59 03/26/18 19:59 03/26/18 19:59 Intake and Output: 03/26/18 03/27/18 18:59 06:59 Intake Total 820 Output Total 800 Balance 20 - Medications Medications: Current Medications Acetaminophen (Tylenol 325mg Tab) 650 mg PO Q6 PRN PRN Reason: Pain, moderate (4-7) Albuterol/Ipratropium (Duoneb 3 Mg/0.5 Mg (3 Ml) Ud) 3 ml INH RQ6 PRN PRN Reason: Shortness of Breath Last Admin: 03/24/18 05:27 Dose: 3 ml Aripiprazole (Abilify) 2 mg PO HS [facility] Last Admin: 03/26/18 21:06 Dose: 2 mg Aspirin (Ecotrin) 81 mg PO DAILY [facility] Last Admin: 03/26/18 09:17 Dose: 81 mg Atorvastatin Calcium (Lipitor) 20 mg PO DAILY@2200 [facility] Last Admin: 03/26/18 21:07 Dose: 20 mg Benztropine Mesylate (Cogentin) 1 mg PO Q12 [facility] Last Admin: 03/26/18 21:07 Dose: 1 mg Bortezomib (Velcade) 3.5 mg IVP [facility] Buspirone HCl (Buspar) 15 mg PO Q12 [facility] Last Admin: 03/26/18 21:07 Dose: 15 mg Clonazepam (Klonopin) 0.5 mg PO DAILY PRN PRN Reason: Anxiety Dextrose (Dextrose 50% Inj) 0 ml IV STAT PRN; Protocol PRN Reason: Hypoglycemia Protocol Dextrose (Glutose 15) 0 gm PO ONCE PRN; Protocol PRN Reason: Hypoglycemia Protocol Duloxetine HCl (Cymbalta) 60 mg PO DAILY [facility] Last Admin: 03/26/18 09:15 Dose: 60 mg Enalapril Maleate (Vasotec) 5 mg PO DAILY [facility] Enoxaparin Sodium (Lovenox) 40 mg SC DAILY [facility]; Protocol Last Admin: 03/26/18 09:12 Dose: 40 mg Escitalopram Oxalate (Lexapro) 10 mg PO DAILY [facility] Last Admin: 03/26/18 09:17 Dose: 10 mg Famotidine (Pepcid) 20 mg PO DAILY [facility] Last Admin: 03/26/18 09:20 Dose: 20 mg Ferrous Sulfate (Feosol) 325 mg PO DAILY [facility] Last Admin: 03/25/18 08:45 Dose: 325 mg Gabapentin (Neurontin) 100 mg PO TID [facility] Last Admin: 03/26/18 16:14 Dose: 100 mg Glucagon (Glucagen Diagnostic Kit) 0 mg IM STAT PRN; Protocol PRN Reason: Hypoglycemia Protocol Home Med (Riociguat [Adempas]) 2 mg PO TID [facility] Last Admin: 03/26/18 16:13 Dose: 2 mg Hydrocortisone (Cortef) 10 mg PO [facility] Last Admin: 03/26/18 21:07 Dose: 10 mg Magnesium Sulfate (Magnesium Sulfate 2 Gm/50 Ml Water) 2 gm in 50 mls @ 25 mls/hr IVPB Q6 [facility] Stop: 03/27/18 05:59 Last Admin: 03/26/18 21:03 Dose: 25 mls/hr Insulin Detemir (Levemir) 10 units SC [facility] Last Admin: 03/26/18 23:21 Dose: 10 units Insulin Human Lispro (Humalog) 5 units SC TID [facility] Last Admin: 03/24/18 09:12 Dose: Not Given Insulin Human Lispro (Humalog) 0 units SC ACCU-CHECK [facility]; Protocol Last Admin: 03/26/18 23:20 Dose: Not Given Levothyroxine Sodium (Synthroid) 100 mcg PO DAILY@0630 [facility] Last Admin: 03/26/18 06:03 Dose: 100 mcg Magnesium Oxide (Mag-Ox) 400 mg PO Q12 [facility] Last Admin: 03/26/18 21:07 Dose: 400 mg Metformin HCl (Glucophage) 500 mg PO BID [facility] Last Admin: 03/24/18 09:07 Dose: 500 mg Torsemide (Demadex) 20 mg PO DAILY [facility] - Labs Labs: 03/26/18 06:15 03/26/18 15:00 PT 11.8 Seconds (9.8-13.1) 01/16/19 17:02 INR 1.0 03/23/18 17:02 APTT 29.2 Seconds (25.6-37.1) 03/23/18 17:02 - Constitutional Appears: Non-toxic, No Acute Distress - Respiratory Exam Respiratory Exam: absent: Respiratory Distress Additional comments: chronic rales; - Cardiovascular Exam Cardiovascular Exam: REGULAR RHYTHM, +S1, +S2 - GI/Abdominal Exam GI & Abdominal Exam: Soft. absent: Distended - Extremities Exam Additional comments: minimal leg edema; - Neurological Exam Neurological Exam: Alert, Awake - Psychiatric Exam Psychiatric exam: Normal Affect, Normal Mood. absent: Agitated - Skin Skin Exam: Warm. absent: Cyanosis Assessment and Plan (1) Hypomagnesemia Assessment & Plan: Persistent; continue PO mag ox 400 mg bid; need to run IV Mag sulfate slowly to avoid renal wasting (1 gm/hr or slower); Status: Acute (2) Hypercalcemia Assessment & Plan: Resolved; monitor periodically; Status: Acute (3) CHF (congestive heart failure) Assessment & Plan: With diastolic dysfunction and pulm htn; should resume torsemide now that patient having regular PO intake; Status: Chronic (4) Acute kidney injury Status: Resolved
[2018-03-27] MEDS ORDERED: Sodium Chloride 0.9% 1,000 ML IV SCH (05:15)
[2018-03-27] MEDS: Dextrose 5%/0.9% NS 1,000 ML IV SCH ×2 (05:39→17:01)
[2018-03-27] MEDS: Levothyroxine 100 MCG TAB PO SCH (06:08)
[2018-03-27] MEDS: Insulin Lispro (humaLOG) 100 Units/ml Inj SC SCH ×3 (06:31→16:59)
[2018-03-27 07:13] LABS: BASO % 0.1 % (0.0-2.0); EOS % 0.1 % (0.0-4.0); LYMPH # 0.7 K/uL (1.0-4.3); LYMPH % 9.2 % (20.0-40.0); MEAN CELL VOLUME 87.6 fl (81.0-99.0); MEAN CORPUSCULAR HEMOGLOBIN 28.4 pg (27.0-31.0); MEAN CORPUSCULAR HGB CONC 32.4 g/dL (33.0-37.0); MEAN PLATELET VOLUME 8.9 fl (7.2-11.7); MONO # 0.9 K/uL (0.0-0.8); NEUT # 5.8 K/uL (1.8-7.0); NEUT % 78.6 % (50.0-75.0); PLATELET COUNT 229 K/uL (130-400); RBC 4.24 Mil/uL (3.80-5.20); WHITE BLOOD COUNT 7.3 K/uL (4.8-10.8)
[2018-03-27 07:41] LABS: ALBUMIN 3.4 g/dL (3.5-5.0); ALT/SGPT 26 U/L (9-52); AST/SGOT 27 U/L (14-36); BLOOD UREA NITROGEN 15 mg/dl (7-17); CALCIUM 9.2 mg/dL (8.4-10.2); GFR NON-AFRICAN AMERICAN > 60
[2018-03-27] MEDS: Enoxaparin 40 mg Syringe SC SCH (08:29)
[2018-03-27] MEDS: RIOCIGUAT 2 MG PO SCH ×3 (08:30→16:59)
--- NOTE | 2018-03-27 09:51 | CP.PCM.PN ---
<Ping Bhatia - Last Filed: 03/27/18 12:31> Subjective - Date & Time of Evaluation Date of Evaluation: 03/27/18 Time of Evaluation: 09:48 - Subjective Subjective: Patient seen and examined with attending. Overnight events: vomiting x 3, multiple loose bowel movements. This AM: Lying in bed comfortably, somnolent but arousable. Per RN: No vomiting for AM shift. Denies any abdominal pain, nausea at present but patient is confused. Oriented to person, not to place or time. Dark brown BM noted. Avasys in place - fall precautions. Objective - Vital Signs/Intake and Output Vital Signs (last 24 hours): Temp Pulse Resp BP Pulse Ox 99.7 F H 101 H 20 105/66 100 03/27/18 08:00 03/27/18 08:00 03/27/18 08:00 03/27/18 08:00 03/27/18 08:00 - Medications Medications: Current Medications Acetaminophen (Tylenol 325mg Tab) 650 mg PO Q6 PRN PRN Reason: Pain, moderate (4-7) Albuterol/Ipratropium (Duoneb 3 Mg/0.5 Mg (3 Ml) Ud) 3 ml INH RQ6 PRN PRN Reason: Shortness of Breath Last Admin: 03/24/18 05:27 Dose: 3 ml Aripiprazole (Abilify) 2 mg PO HS [facility] Last Admin: 03/26/18 21:06 Dose: 2 mg Aspirin (Ecotrin) 81 mg PO DAILY [facility] Last Admin: 03/27/18 08:30 Dose: Not Given Atorvastatin Calcium (Lipitor) 20 mg PO DAILY@2200 [facility] Last Admin: 03/26/18 21:07 Dose: 20 mg Benztropine Mesylate (Cogentin) 1 mg PO Q12 [facility] Last Admin: 03/27/18 08:30 Dose: Not Given Bortezomib (Velcade) 3.5 mg IVP [facility] Buspirone HCl (Buspar) 15 mg PO Q12 [facility] Last Admin: 03/27/18 08:30 Dose: Not Given Clonazepam (Klonopin) 0.5 mg PO DAILY PRN PRN Reason: Anxiety Dextrose (Dextrose 50% Inj) 0 ml IV STAT PRN; Protocol PRN Reason: Hypoglycemia Protocol Dextrose (Glutose 15) 0 gm PO ONCE PRN; Protocol PRN Reason: Hypoglycemia Protocol Duloxetine HCl (Cymbalta) 60 mg PO DAILY [facility] Last Admin: 03/27/18 08:30 Dose: Not Given Enalapril Maleate (Vasotec) 5 mg PO DAILY [facility] Enoxaparin Sodium (Lovenox) 40 mg SC DAILY [facility]; Protocol Last Admin: 03/27/18 08:29 Dose: 40 mg Escitalopram Oxalate (Lexapro) 10 mg PO DAILY [facility] Last Admin: 03/27/18 08:30 Dose: Not Given Famotidine (Pepcid) 20 mg PO DAILY [facility] Last Admin: 03/27/18 08:30 Dose: Not Given Ferrous Sulfate (Feosol) 325 mg PO DAILY [facility] Last Admin: 03/25/18 08:45 Dose: 325 mg Gabapentin (Neurontin) 100 mg PO TID [facility] Last Admin: 03/27/18 08:30 Dose: Not Given Glucagon (Glucagen Diagnostic Kit) 0 mg IM STAT PRN; Protocol PRN Reason: Hypoglycemia Protocol Home Med (Riociguat [Adempas]) 2 mg PO TID [facility] Last Admin: 03/27/18 08:30 Dose: Not Given Hydrocortisone (Cortef) 10 mg PO [facility] Last Admin: 03/26/18 21:07 Dose: 10 mg Dextrose/Sodium Chloride (Dextrose 5%/0.9% Ns 1000 Ml) 1,000 mls @ 80 mls/hr IV .[id number] [facility] Stop: 03/28/18 05:07 Last Admin: 03/27/18 05:39 Dose: 80 mls/hr Insulin Detemir (Levemir) 10 units SC [facility] Last Admin: 03/26/18 23:21 Dose: 10 units Insulin Human Lispro (Humalog) 5 units SC TID [facility] Last Admin: 03/24/18 09:12 Dose: Not Given Insulin Human Lispro (Humalog) 0 units SC ACCU-CHECK [facility]; Protocol Last Admin: 03/27/18 06:31 Dose: Not Given Levothyroxine Sodium (Synthroid) 100 mcg PO DAILY@0630 [facility] Last Admin: 03/27/18 06:08 Dose: Not Given Metformin HCl (Glucophage) 500 mg PO BID [facility] Last Admin: 03/24/18 09:07 Dose: 500 mg Torsemide (Demadex) 20 mg PO DAILY [facility] - Labs Labs: 03/27/18 06:45 03/27/18 06:45 PT 11.8 Seconds (9.8-13.1) 03/23/18 17:02 INR 1.0 03/23/18 17:02 APTT 29.2 Seconds (25.6-37.1) 03/23/18 17:02 - Constitutional Appears: Confused (somnolent) - Head Exam Head Exam: ATRAUMATIC, NORMAL INSPECTION, NORMOCEPHALIC - Respiratory Exam Respiratory Exam: NORMAL BREATHING PATTERN (wearing NC. lung sounds clear to auscultation anteriorly). absent: Accessory Muscle Use, Decreased Breath Sounds - Cardiovascular Exam Cardiovascular Exam: REGULAR RHYTHM, +S1, +S2 - GI/Abdominal Exam GI & Abdominal Exam: Soft, Normal Bowel Sounds. absent: Distended, Guarding, Tenderness Additional comments: dark stool noted - Extremities Exam Extremities Exam: Normal Inspection. 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 Pt has had many metabolic derangements that are likely contributing to her AMS, that is likely secondary to metabolic encephalopathy vs delirium. Her metabolic derangements are improving. Pt has multiple episodes of emesis and diarrhea. Stool sent for FOBT, CDiff and Fecal leukocytes. No longer having emesis. NPO for now. KUB ordered as well. PLAN: >Altered Mental Status/Metabolic Encephalopathy --waxing and waning, metabolic encephalopathy vs delirium --Head CT negative for acute findings --thought o be secondary to metabolic derangements ( hypercalcemia, hypomagnesemia, dehydration) --Neuro checks >Nausea/Vomiting/Diarrhea -etiology unknown -stool studies sent: fecal leukocytes, FOBT, cdiff -of note: pt was on feosol -cdiff neg x 1 -KUB ordered, although pt has normal bowel sounds, no tenderness -Head CT on admission was neg -monitor closely >Hypercalcemia --Resolved, Ca 14.3>13.4>12.9>10.2>9.2 --Possibly due to dehydration vs missed Multiple Myeloma treatment --Hematology Consult, Dr Vilchis --Nephrology Consult, Dr Nava --Holding daily Torsemide 20mg daily --Continue to monitor >IDDM --Metformin held, Meal time Bolus held, put on low sliding scale and reduced basal insulin given pt's poor intake and low sugars --Accuchecks --Hypoglycemic protocol --ISS, low dose >Hypomagnesemia --M.3 today --IV and PO mag discontinued --Discontinued PPI as this can cause hypoMG --Follow closely >Hypophosphatemia --Improved, Phos 2.4 today --Continue to follow >Multiple Myeloma --Heme/Onc on board: Dr. Vilchis --Bortezomib on hold, will administer in outpatient setting >CHF/HTN --Echocardiogram on 08/25/17 showed LVEF 60-65%, grade I abnormal relaxation pattern. --Possibly diastolic dysfunction-CHF --Holding torsemide for now as per nephro; will monitor volume status >COPD/Pulm HTN --Resumed home meds >DVT Prophylaxis --Lovenox 40mg SC daily --SCD Case discussed with Dr. Roach <Holley Roach - Last Filed: 03/27/18 15:11> Objective - Vital Signs/Intake and Output Vital Signs (last 24 hours): Temp Pulse Resp BP Pulse Ox 98 F 79 18 104/56 L 97 03/27/18 13:39 03/27/18 13:39 03/27/18 13:39 03/27/18 13:39 03/27/18 13:39 - Medications Medications: Current Medications Acetaminophen (Tylenol 325mg Tab) 650 mg PO Q6 PRN PRN Reason: Pain, moderate (4-7) Albuterol/Ipratropium (Duoneb 3 Mg/0.5 Mg (3 Ml) Ud) 3 ml INH RQ6 PRN PRN Reason: Shortness of Breath Last Admin: 03/24/18 05:27 Dose: 3 ml Aripiprazole (Abilify) 2 mg PO HS [facility] Last Admin: 03/26/18 21:06 Dose: 2 mg Aspirin (Ecotrin) 81 mg PO DAILY [facility] Last Admin: 03/27/18 08:30 Dose: Not Given Atorvastatin Calcium (Lipitor) 20 mg PO DAILY@2200 [facility] Last Admin: 03/26/18 21:07 Dose: 20 mg Benztropine Mesylate (Cogentin) 1 mg PO Q12 [facility] Last Admin: 03/27/18 08:30 Dose: Not Given Bortezomib (Velcade) 3.5 mg IVP [facility] Buspirone HCl (Buspar) 15 mg PO Q12 [facility] Last Admin: 03/27/18 08:30 Dose: Not Given Clonazepam (Klonopin) 0.5 mg PO DAILY PRN PRN Reason: Anxiety Dextrose (Dextrose 50% Inj) 0 ml IV STAT PRN; Protocol PRN Reason: Hypoglycemia Protocol Dextrose (Glutose 15) 0 gm PO ONCE PRN; Protocol PRN Reason: Hypoglycemia Protocol Duloxetine HCl (Cymbalta) 60 mg PO DAILY [facility] Last Admin: 03/27/18 08:30 Dose: Not Given Enalapril Maleate (Vasotec) 5 mg PO DAILY [facility] Enoxaparin Sodium (Lovenox) 40 mg SC DAILY [facility]; Protocol Last Admin: 03/27/18 08:29 Dose: 40 mg Escitalopram Oxalate (Lexapro) 10 mg PO DAILY [facility] Last Admin: 03/27/18 08:30 Dose: Not Given Famotidine (Pepcid) 20 mg PO DAILY [facility] Last Admin: 03/27/18 08:30 Dose: Not Given Ferrous Sulfate (Feosol) 325 mg PO DAILY [facility] Last Admin: 03/25/18 08:45 Dose: 325 mg Gabapentin (Neurontin) 100 mg PO TID [facility] Last Admin: 03/27/18 12:14 Dose: Not Given Glucagon (Glucagen Diagnostic Kit) 0 mg IM STAT PRN; Protocol PRN Reason: Hypoglycemia Protocol Home Med (Riociguat [Adempas]) 2 mg PO TID [facility] Last Admin: 03/27/18 12:14 Dose: Not Given Hydrocortisone (Cortef) 10 mg PO [facility] Last Admin: 03/26/18 21:07 Dose: 10 mg Dextrose/Sodium Chloride (Dextrose 5%/0.9% Ns 1000 Ml) 1,000 mls @ 80 mls/hr IV .[id number] [facility] Stop: 03/28/18 05:07 Last Admin: 03/27/18 05:39 Dose: 80 mls/hr Insulin Detemir (Levemir) 10 units SC [facility] Last Admin: 03/26/18 23:21 Dose: 10 units Insulin Human Lispro (Humalog) 5 units SC TID [facility] Last Admin: 03/24/18 09:12 Dose: Not Given Insulin Human Lispro (Humalog) 0 units SC [facility]U-CHECK [facility]; Protocol Last Admin: 03/27/18 12:14 Dose: Not Given Levothyroxine Sodium (Synthroid) 100 mcg PO DAILY@0630 [facility] Last Admin: 03/27/18 06:08 Dose: Not Given Metformin HCl (Glucophage) 500 mg PO BID [facility] Last Admin: 03/24/18 09:07 Dose: 500 mg Torsemide (Demadex) 20 mg PO DAILY [facility] - Labs Labs: 03/27/18 11:26 03/27/18 06:45 PT 11.8 Seconds (9.8-13.1) 03/23/18 17:02 INR 1.0 03/23/18 17:02 APTT 29.2 Seconds (25.6-37.1) 03/23/18 17:02 Attending/Attestation - Attestation I have personally seen and examined this patient.: Yes I have fully participated in the care of the patient.: Yes I have reviewed all pertinent clinical information, including history, physical exam and plan: Yes Notes (Text): Hypomagnesemia, improved - d/c Magnesium as pt has diarrhea (can induce diarrhea) - Hold Demadex and Protonix w/c could further lower Mg, Hypercalcemia may have also contributed to the low Mg Hypercalcemia , ? sec to multiple Myeloma vs sec to Calcium supplements - pt not on any chemotx w/c causes hypercalcemia - work up for paraneoplastic neg so far - PTH intact low, TSH sl elevated - Cortisol level normal AMS likely /Metabolic Encephalopathy Diarrhea/with Vomiting - ? infectious vs meds vs gastroparesis - Stool work up - C diff ( though pt has no WBC nor fever) - NPO, start Liquid diet if N/V resolves - IVF
[2018-03-27 11:18] LABS: BANDS 4 % (0-2); LYMPHOCYTE 8 % (20-50); MONOCYTE 11 % (0-10); NEUTROPHIL 77 % (42-75); TOTAL CELLS COUNTED 100
[2018-03-27 11:20] LABS: PLATELET ESTIMATE NORMAL (NORMAL)
[2018-03-27 11:21] LABS: ANISOCYTOSIS SLIGHT
[2018-03-27 11:40] LABS: HEMOGLOBIN 12.2 g/dL (12.0-16.0); MEAN CELL VOLUME 89.5 fl (81.0-99.0); MEAN CORPUSCULAR HEMOGLOBIN 28.4 pg (27.0-31.0); MEAN CORPUSCULAR HGB CONC 31.7 g/dL (33.0-37.0); RBC 4.31 Mil/uL (3.80-5.20); RED CELL DISTRIBUTION WIDTH 17.9 % (11.5-14.5)
--- NOTE | 2018-03-27 13:55 | RAD ---
Date of service: 03/27/2018 HISTORY: nausea/vomiting/diarrhea COMPARISON: Abdominal radiographs dated 12/19/2017. FINDINGS: BOWEL: Nonspecific bowel gas pattern. BONES: Normal. OTHER FINDINGS: Inferior vena cava filter. IMPRESSION: Nonspecific bowel gas pattern.
[2018-03-27] MEDS: Insulin Detemir 100 Units/ml Inj SC SCH (22:00)
[2018-03-28] MEDS: Insulin Lispro (humaLOG) 100 Units/ml Inj SC SCH ×5 (02:38→22:15)
[2018-03-28] MEDS: Levothyroxine 100 MCG TAB PO SCH (07:04)
[2018-03-28 07:13] LABS: HEMOGLOBIN 11.7 g/dL (12.0-16.0); MEAN CELL VOLUME 87.7 fl (81.0-99.0); MEAN CORPUSCULAR HEMOGLOBIN 28.6 pg (27.0-31.0); MEAN CORPUSCULAR HGB CONC 32.6 g/dL (33.0-37.0); RBC 4.07 Mil/uL (3.80-5.20); RED CELL DISTRIBUTION WIDTH 17.8 % (11.5-14.5); WHITE BLOOD COUNT 5.2 K/uL (4.8-10.8)
[2018-03-28 07:33] LABS: ALB/GLOB RATIO 0.9 (1.0-2.1); ALBUMIN 3.3 g/dL (3.5-5.0); CALCIUM 8.6 mg/dL (8.4-10.2)
[2018-03-28] MEDS ORDERED: Potassium Chl 40 mEq in D5-NS 1,000 ML IV SCH (07:45)
[2018-03-28] MEDS: RIOCIGUAT 2 MG PO SCH ×3 (09:18→17:36)
[2018-03-28] MEDS: Enoxaparin 40 mg Syringe SC SCH (09:24)
[2018-03-28] MEDS ORDERED: Chlorhexidine Gluconate 1 APPL/PKT TP ONE ×4 (10:31→17:52)
--- NOTE | 2018-03-28 10:39 | CP.PCM.CON ---
History of Present Illness - History of Present Illness History of Present Illness: Neurology Consultation Note: Consult Requested by: Dr. Neumann Mrs. Perkins is a 72-year-old woman with a past medical history of DM, hypertension, COPD, sleep apnea with pulmonary hypertension, PE off anticoagulation due to falls with IVC filter, multiple myeloma, with lytic bone lesions, acetabular fracture, admitted on 03/23/2018 with for altered mental status and found to have hypercalcemia. Some of her metabolic issues have been resolved, but last night she had 3 episodes of vomiting and loose stool. She was tachycardic. She continues to be somnolent and confused. Non-contrast CT scan of the head did not show any acute findings. When I saw the patient, she was answering questions intermittently. She did not have any dysarthria or aphasia per se, but there was repetition, echolalia, and she had difficulty with focusing. She perseverated on certain thoughts. No focal deficits were noted, but she did have right arm shaking/jerking movements that were rhythmic. I asked the nurse to administer 1 mg of Ativan IV to determine if these could be seizures. Review of Systems - Review of Systems Systems not reviewed;Unavailable: Altered Mental Status Past Patient History - Infectious Disease Hx of Infectious Diseases: None - Tetanus Immunizations Tetanus Immunization: Unknown - Past Medical History & Family History Past Medical History?: Yes - Past Social History Smoking Status: Never Smoked - CARDIAC Hx Congestive Heart Failure: Yes Hx Hypercholesterolemia: Yes Hx Hypertension: Yes - PULMONARY Hx Asthma: Yes Hx Chronic Obstructive Pulmonary Disease (COPD): Yes Hx Emphysema: Yes Hx Pneumonia: Yes Hx Pulmonary Embolism: Yes Hx Sleep Apnea: Yes - NEUROLOGICAL Hx Migraine: Yes Hx Parkinson's Disease: Yes - HEENT Hx HEENT Problems: No - RENAL Hx Chronic Kidney Disease: No - ENDOCRINE/METABOLIC Hx Hypothyroidism: Yes - HEMATOLOGICAL/ONCOLOGICAL Hx Anemia: Yes Hx Human Immunodeficiency Virus (HIV): No - INTEGUMENTARY Hx Dermatological Problems: No - MUSCULOSKELETAL/RHEUMATOLOGICAL Hx Arthritis: Yes Hx Fractures: Yes Hx Rheumatoid Arthritis: Yes - GASTROINTESTINAL Hx Gastrointestinal Disorders: No - GENITOURINARY/GYNECOLOGICAL Hx Genitourinary Disorders: Yes Hx Incontinence: Yes - PSYCHIATRIC Hx Anxiety: Yes Hx Depression: Yes - SURGICAL HISTORY Hx Appendectomy: Yes Hx Cholecystectomy: Yes Hx Tonsillectomy: Yes - ANESTHESIA Hx Anesthesia: Yes Hx Anesthesia Reactions: Yes (Resp. Distress) Hx Malignant Hyperthermia: No Meds Allergies/Adverse Reactions: Allergies Allergy/AdvReac Type Severity Reaction Status Date / Time codeine AdvReac syncope, Verified 03/10/18 12:43 diaphoresis - Medications Medications: Current Medications Acetaminophen (Tylenol 325mg Tab) 650 mg PO Q6 PRN PRN Reason: Pain, moderate (4-7) Albuterol/Ipratropium (Duoneb 3 Mg/0.5 Mg (3 Ml) Ud) 3 ml INH RQ6 PRN PRN Reason: Shortness of Breath Last Admin: 03/24/18 05:27 Dose: 3 ml Aripiprazole (Abilify) 2 mg PO HS [facility] Last Admin: 03/27/18 22:09 Dose: 2 mg Aspirin (Ecotrin) 81 mg PO DAILY [facility] Last Admin: 03/28/18 09:18 Dose: Not Given Atorvastatin Calcium (Lipitor) 20 mg PO DAILY@2200 [facility] Last Admin: 03/27/18 22:10 Dose: 20 mg Benztropine Mesylate (Cogentin) 1 mg PO Q12 [facility] Last Admin: 03/28/18 09:19 Dose: Not Given Bortezomib (Velcade) 3.5 mg IVP [facility] Buspirone HCl (Buspar) 15 mg PO Q12 [facility] Last Admin: 03/28/18 09:19 Dose: Not Given Clonazepam (Klonopin) 0.5 mg PO DAILY PRN PRN Reason: Anxiety Dextrose (Dextrose 50% Inj) 0 ml IV STAT PRN; Protocol PRN Reason: Hypoglycemia Protocol Dextrose (Glutose 15) 0 gm PO ONCE PRN; Protocol PRN Reason: Hypoglycemia Protocol Duloxetine HCl (Cymbalta) 60 mg PO DAILY [facility] Last Admin: 03/28/18 09:19 Dose: Not Given Enalapril Maleate (Vasotec) 5 mg PO DAILY [facility] Enoxaparin Sodium (Lovenox) 40 mg SC DAILY [facility]; Protocol Last Admin: 03/28/18 09:24 Dose: 40 mg Escitalopram Oxalate (Lexapro) 10 mg PO DAILY [facility] Last Admin: 03/28/18 09:18 Dose: Not Given Famotidine (Pepcid) 20 mg PO DAILY [facility] Last Admin: 03/28/18 09:18 Dose: Not Given Ferrous Sulfate (Feosol) 325 mg PO DAILY [facility] Last Admin: 03/25/18 08:45 Dose: 325 mg Gabapentin (Neurontin) 100 mg PO TID [facility] Last Admin: 03/28/18 09:18 Dose: Not Given Glucagon (Glucagen Diagnostic Kit) 0 mg IM STAT PRN; Protocol PRN Reason: Hypoglycemia Protocol Home Med (Riociguat [Adempas]) 2 mg PO TID [facility] Last Admin: 03/28/18 09:18 Dose: Not Given Hydrocortisone (Cortef) 10 mg PO [facility] Last Admin: 03/27/18 22:10 Dose: 10 mg Potassium Chloride/Dextrose/Sod Cl (D5-Ns1l+40meq Kcl) 1,000 mls @ 125 mls/hr IV .Q8H [facility] Stop: 03/29/18 07:32 Last Admin: 03/28/18 09:23 Dose: 125 mls/hr Insulin Detemir (Levemir) 10 units SC [facility] Last Admin: 03/27/18 22:00 Dose: Not Given Insulin Human Lispro (Humalog) 5 units SC TID [facility] Last Admin: 03/24/18 09:12 Dose: Not Given Insulin Human Lispro (Humalog) 0 units SC ACCU-CHECK [facility]; Protocol Last Admin: 03/28/18 09:18 Dose: Not Given Levothyroxine Sodium (Synthroid) 100 mcg PO DAILY@0630 [facility] Last Admin: 03/28/18 07:04 Dose: 100 mcg Metformin HCl (Glucophage) 500 mg PO BID [facility] Last Admin: 03/24/18 09:07 Dose: 500 mg Torsemide (Demadex) 20 mg PO DAILY [facility] Physical Exam - Constitutional Appears: Chronically Ill - Head Exam Head Exam: ATRAUMATIC, NORMAL INSPECTION, NORMOCEPHALIC - Eye Exam Eye Exam: EOMI, Normal appearance, PERRL - Neck Exam Neck exam: Positive for: Normal Inspection - Respiratory Exam Respiratory Exam: Clear to Auscultation Bilateral, NORMAL BREATHING PATTERN - Cardiovascular Exam Cardiovascular Exam: REGULAR RHYTHM, +S1, +S2 - Rectal Exam Rectal Exam: Deferred - Extremities Exam Extremities exam: Positive for: normal inspection - Neurological Exam Neurological exam: Altered, CN II-XII Intact, Reflexes Normal Additional comments: Confused, oriented to person, but not place or time. Perseverates, echolalia, catatonic behavior. Moves all extremities. NO focal weakness, NO sensory deficits noted, reflexes normal. Results - Vital Signs Recent Vital Signs: Last Vital Signs Temp 99.4 F 03/28/18 08:23 Pulse 97 H 03/28/18 08:23 Resp 20 03/28/18 08:23 BP 115/63 03/28/18 08:23 Pulse Ox 99 03/28/18 08:23 - Labs Result Diagrams: 03/28/18 07:06 03/28/18 07:06 Labs: Laboratory Results - last 24 hr 03/27/18 03/27/18 03/27/18 06:45 08:30 11:26 WBC 7.0 RBC 4.31 Hgb 12.2 Hct 38.6 MCV 89.5 MCH 28.4 MCHC 31.7 L RDW 17.9 H Plt Count 242 Neutrophils % (Manual) 77 H Band Neutrophils % 4 H Lymphocytes % (Manual) 8 L Monocytes % (Manual) 11 H Platelet Estimate Normal Anisocytosis (manual) Slight Sodium Potassium Chloride Carbon Dioxide Anion Gap BUN Creatinine Est GFR ( Amer) Est GFR (Non-Af Amer) POC Glucose (mg/dL) Random Glucose Calcium Phosphorus Magnesium Total Bilirubin AST ALT Alkaline Phosphatase Total Protein Albumin Globulin Albumin/Globulin Ratio Lipase Cortisol AM Sample 24.7 H Stool Occult Blood C. difficile Ag & Toxin Blood Type Antibody Screen BBK History Checked 03/27/18 03/27/18 03/27/18 11:26 11:39 12:58 WBC RBC Hgb Hct MCV MCH MCHC RDW Plt Count Neutrophils % (Manual) Band Neutrophils % Lymphocytes % (Manual) Monocytes % (Manual) Platelet Estimate Anisocytosis (manual) Sodium Potassium Chloride Carbon Dioxide Anion Gap BUN Creatinine Est GFR ( Amer) Est GFR (Non-Af Amer) POC Glucose (mg/dL) 149 H Random Glucose Calcium Phosphorus Magnesium Total Bilirubin AST ALT Alkaline Phosphatase Total Protein Albumin Globulin Albumin/Globulin Ratio Lipase 13 L Cortisol AM Sample Stool Occult Blood C. difficile Ag & Toxin Blood Type A POSITIVE Antibody Screen Negative BBK History Checked Patient has bt 03/27/18 03/27/18 03/27/18 15:15 16:30 16:55 WBC RBC Hgb Hct MCV MCH MCHC RDW Plt Count Neutrophils % (Manual) Band Neutrophils % Lymphocytes % (Manual) Monocytes % (Manual) Platelet Estimate Anisocytosis (manual) Sodium Potassium Chloride Carbon Dioxide Anion Gap BUN Creatinine Est GFR ( Amer) Est GFR (Non-Af Amer) POC Glucose (mg/dL) 137 H Random Glucose Calcium Phosphorus Magnesium Total Bilirubin AST ALT Alkaline Phosphatase Total Protein Albumin Globulin Albumin/Globulin Ratio Lipase Cortisol AM Sample Stool Occult Blood Negative C. difficile Ag & Toxin Negative Blood Type Antibody Screen BBK History Checked 03/27/18 03/28/18 03/28/18 22:44 06:45 07:06 WBC 5.2 RBC 4.07 Hgb 11.7 L Hct 35.7 MCV 87.7 MCH 28.6 MCHC 32.6 L RDW 17.8 H Plt Count 203 Neutrophils % (Manual) Band Neutrophils % Lymphocytes % (Manual) Monocytes % (Manual) Platelet Estimate Anisocytosis (manual) Sodium Potassium Chloride Carbon Dioxide Anion Gap BUN Creatinine Est GFR ( Amer) Est GFR (Non-Af Amer) POC Glucose (mg/dL) 163 H 167 H Random Glucose Calcium Phosphorus Magnesium Total Bilirubin AST ALT Alkaline Phosphatase Total Protein Albumin Globulin Albumin/Globulin Ratio Lipase Cortisol AM Sample Stool Occult Blood C. difficile Ag & Toxin Blood Type Antibody Screen BBK History Checked 03/28/18 07:06 WBC RBC Hgb Hct MCV MCH MCHC RDW Plt Count Neutrophils % (Manual) Band Neutrophils % Lymphocytes % (Manual) Monocytes % (Manual) Platelet Estimate Anisocytosis (manual) Sodium 138 Potassium 3.6 Chloride 101 Carbon Dioxide 25 Anion Gap 16 BUN 26 H Creatinine 1.2 Est GFR ( Amer) 54 Est GFR (Non-Af Amer) 44 POC Glucose (mg/dL) Random Glucose 171 H Calcium 8.6 Phosphorus 2.9 Magnesium 1.9 Total Bilirubin 0.6 AST 21 ALT 17 Alkaline Phosphatase 78 Total Protein 6.8 Albumin 3.3 L Globulin 3.5 Albumin/Globulin Ratio 0.9 L Lipase Cortisol AM Sample Stool Occult Blood C. difficile Ag & Toxin Blood Type Antibody Screen BBK History Checked Assessment & Plan (1) Acute encephalopathy Assessment and Plan: The differential includes acute psychotic reaction due to recent family trauma (grandson dying), recent physical illnesses, etc., toxic-metabolic encephalopathy, acute ischemic stroke, or seizures. Will obtain non-contrast CT scan of the head, EEG and consider MRI brain depending on the results. Will give Ativan 1 mg now and monitor for results. Thank you for this consultation. Status: Acute
--- NOTE | 2018-03-28 10:54 | CP.PCM.PN ---
<Deneen Varela - Last Filed: 03/28/18 10:54> Objective - Vital Signs/Intake and Output Vital Signs (last 24 hours): Temp Pulse Resp BP Pulse Ox 99.4 F 97 H 20 115/63 99 03/28/18 08:23 03/28/18 08:23 03/28/18 08:23 03/28/18 08:23 03/28/18 08:23 - Medications Medications: Current Medications Albuterol/Ipratropium (Duoneb 3 Mg/0.5 Mg (3 Ml) Ud) 3 ml INH RQ6 PRN PRN Reason: Shortness of Breath Last Admin: 03/24/18 05:27 Dose: 3 ml Aripiprazole (Abilify) 2 mg PO HS [facility] Last Admin: 03/27/18 22:09 Dose: 2 mg Aspirin (Ecotrin) 81 mg PO DAILY [facility] Last Admin: 03/28/18 09:18 Dose: Not Given Atorvastatin Calcium (Lipitor) 20 mg PO DAILY@2200 [facility] Last Admin: 03/27/18 22:10 Dose: 20 mg Benztropine Mesylate (Cogentin) 1 mg PO Q12 [facility] Last Admin: 03/28/18 09:19 Dose: Not Given Bortezomib (Velcade) 3.5 mg IVP TUTH [facility] Buspirone HCl (Buspar) 15 mg PO Q12 [facility] Last Admin: 03/28/18 09:19 Dose: Not Given Clonazepam (Klonopin) 0.5 mg PO DAILY PRN PRN Reason: Anxiety Dextrose (Dextrose 50% Inj) 0 ml IV STAT PRN; Protocol PRN Reason: Hypoglycemia Protocol Dextrose (Glutose 15) 0 gm PO ONCE PRN; Protocol PRN Reason: Hypoglycemia Protocol Duloxetine HCl (Cymbalta) 60 mg PO DAILY [facility] Last Admin: 03/28/18 09:19 Dose: Not Given Enalapril Maleate (Vasotec) 5 mg PO DAILY [facility] Enoxaparin Sodium (Lovenox) 40 mg SC DAILY [facility]; Protocol Last Admin: 03/28/18 09:24 Dose: 40 mg Escitalopram Oxalate (Lexapro) 10 mg PO DAILY [facility] Last Admin: 03/28/18 09:18 Dose: Not Given Famotidine (Pepcid) 40 mg IVP DAILY [facility] Ferrous Sulfate (Feosol) 325 mg PO DAILY [facility] Last Admin: 03/25/18 08:45 Dose: 325 mg Gabapentin (Neurontin) 100 mg PO TID [facility] Last Admin: 03/28/18 09:18 Dose: Not Given Glucagon (Glucagen Diagnostic Kit) 0 mg IM STAT PRN; Protocol PRN Reason: Hypoglycemia Protocol Home Med (Riociguat [Adempas]) 2 mg PO TID [facility] Last Admin: 03/28/18 09:18 Dose: Not Given Hydrocortisone (Cortef) 10 mg PO [facility] Last Admin: 03/27/18 22:10 Dose: 10 mg Potassium Chloride/Dextrose/Sod Cl (D5-Ns1l+40meq Kcl) 1,000 mls @ 80 mls/hr IV .[id number] [facility] Stop: 03/29/18 07:32 Insulin Detemir (Levemir) 10 units SC [facility] Last Admin: 03/27/18 22:00 Dose: Not Given Insulin Human Lispro (Humalog) 5 units SC TID [facility] Last Admin: 03/24/18 09:12 Dose: Not Given Insulin Human Lispro (Humalog) 0 units SC ACCU-CHECK [facility]; Protocol Last Admin: 03/28/18 09:18 Dose: Not Given Levothyroxine Sodium (Synthroid) 100 mcg PO DAILY@0630 [facility] Last Admin: 03/28/18 07:04 Dose: 100 mcg Metformin HCl (Glucophage) 500 mg PO BID [facility] Last Admin: 03/24/18 09:07 Dose: 500 mg Torsemide (Demadex) 20 mg PO DAILY [facility] - Labs Labs: 03/28/18 07:06 03/28/18 07:06 PT 11.8 Seconds (9.8-13.1) 03/23/18 17:02 INR 1.0 03/23/18 17:02 APTT 29.2 Seconds (25.6-37.1) 03/23/18 17:02 <Ping Bhatia - Last Filed: 03/28/18 14:58> Subjective - Date & Time of Evaluation Date of Evaluation: 03/28/18 Time of Evaluation: 14:31 - Subjective Subjective: Patient seen and examined with attending on walking rounds. Overnight events: patient had 6 loose BMs. no vomiting. Patient is somnolent but arousable to voice, tactile stimuli. She remains confused. Mental status has not improved since yesterday. Her abdomen is more distended. CT head/chest/a/p ordered. Neuro consult ordered. ABG ordered. Elevate head of bed to 45 deg- aspiration precautions Consider transfer from tele to icu. Objective - Vital Signs/Intake and Output Vital Signs (last 24 hours): Temp Pulse Resp BP Pulse Ox 97.2 F L 97 H 20 108/70 100 03/28/18 12:34 03/28/18 12:34 03/28/18 12:34 03/28/18 12:34 03/28/18 12:34 - Medications Medications: Current Medications Albuterol/Ipratropium (Duoneb 3 Mg/0.5 Mg (3 Ml) Ud) 3 ml INH RQ6 PRN PRN Reason: Shortness of Breath Last Admin: 03/28/18 13:29 Dose: 3 ml Aripiprazole (Abilify) 2 mg PO HS [facility] Last Admin: 03/27/18 22:09 Dose: 2 mg Aspirin (Ecotrin) 81 mg PO DAILY [facility] Last Admin: 03/28/18 09:18 Dose: Not Given Atorvastatin Calcium (Lipitor) 20 mg PO DAILY@2200 [facility] Last Admin: 03/27/18 22:10 Dose: 20 mg Benztropine Mesylate (Cogentin) 1 mg PO Q12 [facility] Last Admin: 03/28/18 09:19 Dose: Not Given Bortezomib (Velcade) 3.5 mg IVP TUTH [facility] Buspirone HCl (Buspar) 15 mg PO Q12 [facility] Last Admin: 03/28/18 09:19 Dose: Not Given Clonazepam (Klonopin) 0.5 mg PO DAILY PRN PRN Reason: Anxiety Dextrose (Dextrose 50% Inj) 0 ml IV STAT PRN; Protocol PRN Reason: Hypoglycemia Protocol Dextrose (Glutose 15) 0 gm PO ONCE PRN; Protocol PRN Reason: Hypoglycemia Protocol Duloxetine HCl (Cymbalta) 60 mg PO DAILY [facility] Last Admin: 03/28/18 09:19 Dose: Not Given Enalapril Maleate (Vasotec) 5 mg PO DAILY [facility] Enoxaparin Sodium (Lovenox) 40 mg SC DAILY [facility]; Protocol Last Admin: 03/28/18 09:24 Dose: 40 mg Escitalopram Oxalate (Lexapro) 10 mg PO DAILY [facility] Last Admin: 03/28/18 09:18 Dose: Not Given Famotidine (Pepcid) 40 mg IVP DAILY [facility] Ferrous Sulfate (Feosol) 325 mg PO DAILY [facility] Last Admin: 03/25/18 08:45 Dose: 325 mg Gabapentin (Neurontin) 100 mg PO TID [facility] Last Admin: 03/28/18 09:18 Dose: Not Given Glucagon (Glucagen Diagnostic Kit) 0 mg IM STAT PRN; Protocol PRN Reason: Hypoglycemia Protocol Home Med (Riociguat [Adempas]) 2 mg PO TID [facility] Last Admin: 03/28/18 09:18 Dose: Not Given Hydrocortisone (Cortef) 10 mg PO [facility] Last Admin: 03/27/18 22:10 Dose: 10 mg Potassium Chloride/Dextrose/Sod Cl (D5-Ns1l+40meq Kcl) 1,000 mls @ 80 mls/hr IV .[id number] [facility] Stop: 03/29/18 07:32 Last Admin: 03/28/18 11:05 Dose: 80 mls/hr Insulin Detemir (Levemir) 10 units SC [facility] Last Admin: 03/27/18 22:00 Dose: Not Given Insulin Human Lispro (Humalog) 5 units SC TID [facility] Last Admin: 03/24/18 09:12 Dose: Not Given Insulin Human Lispro (Humalog) 0 units SC ACCU-CHECK [facility]; Protocol Last Admin: 03/28/18 09:18 Dose: Not Given Levothyroxine Sodium (Synthroid) 100 mcg PO DAILY@0630 [facility] Last Admin: 03/28/18 07:04 Dose: 100 mcg Metformin HCl (Glucophage) 500 mg PO BID [facility] Last Admin: 03/24/18 09:07 Dose: 500 mg Torsemide (Demadex) 20 mg PO DAILY [facility] - Labs Labs: 03/28/18 07:06 03/28/18 07:06 PT 11.8 Seconds (9.8-13.1) 03/23/18 17:02 INR 1.0 03/23/18 17:02 APTT 29.2 Seconds (25.6-37.1) 03/23/18 17:02 - Constitutional Appears: Agitated, Confused - Head Exam Head Exam: ATRAUMATIC, NORMAL INSPECTION, NORMOCEPHALIC - Eye Exam Eye Exam: PERRL - Respiratory Exam Respiratory Exam: Rales (fine crackles posterior lung lee), Respiratory Distress (mild), NORMAL BREATHING PATTERN. absent: Accessory Muscle Use, Decreased Breath Sounds, Wheezes Additional comments: wearing NC - Cardiovascular Exam Cardiovascular Exam: REGULAR RHYTHM, +S1, +S2. absent: Murmur - GI/Abdominal Exam GI & Abdominal Exam: Distended, Tenderness (diffusely), Hypoactive Bowel Sounds. absent: Rigid, Rebound - Extremities Exam Extremities Exam: Normal Inspection. 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 Pt has had many metabolic derangements that are likely contributing to her AMS. Her electrolytes are now WNL. Patient continues to have likely secondary to delirium, will rule out other causes such as infection vs intracranial pathology. Her abdominal distention is likely secondary to ileus. Continue with NPO status due to ileus and altered mentation. Elevate head of bed to 45 deg, aspiration precautions. Blood and urine cultures ordered. Procalcitonin ordered. ABG ordered. CT of Head/Chest/Abdomen/Pelvis ordered. Neuro consult appreciated - Dr. Marrero -Stat EEG ordered. PLAN: >Altered Mental Status /Delirium --secondary to delirium, metabolic derangements have resolved. --Head CT negative for acute findings, repeat pending --thought to be secondary to metabolic derangements ( hypercalcemia, hypomagnesemia, dehydration)--resolved --Neuro checks --neuro consult: EEG pending --abg ordered >Ileus --likely secondary to metabolic derangements -stool studies sent: fecal leukocytes, FOBT(neg), cdiff (negx2) -of note: pt was on feosol --NG tube inserted but patient removed this, she did have foul smelling output. Will attempt reinsertion after EEG --monitor closely Metabolic Derangements: >Hypercalcemia -- resolved --Possibly due to dehydration vs missed Multiple Myeloma treatment --Holding daily Torsemide 20mg daily --Continue to monitor >Hypomagnesemia --chronic, improved --IV and PO mag discontinued --Discontinued PPI as this can cause hypoMG >Hypophosphatemia --Improved --Continue to monitor >IDDM --Metformin held, Meal time Bolus held, put on low sliding scale and reduced basal insulin given pt's poor intake and low sugars --Accuchecks --Hypoglycemic protocol --ISS, low dose >Multiple Myeloma --Heme/Onc on board: Dr. Vilchis --Bortezomib on hold, will administer in outpatient setting >CHF/HTN --Echocardiogram on 08/25/17 showed LVEF 60-65%, grade I abnormal relaxation pattern. --Possibly diastolic dysfunction-CHF --Holding torsemide for now as per nephro; will monitor volume status >COPD/Pulm HTN --Resumed home meds >DVT Prophylaxis --Lovenox 40mg SC daily --SCDs Case d/w Dr. Neumann. Rosa Bhatia PGY3
[2018-03-28] MEDS: Potassium Chl 40 mEq in D5-NS 1,000 ML IV SCH (11:05)
--- NOTE | 2018-03-28 12:10 | CT ---
Date of service: 03/28/2018 PROCEDURE: CT HEAD WITHOUT CONTRAST. HISTORY: AMS COMPARISON: CT head dated 03/23/2018 TECHNIQUE: Axial computed tomography images were obtained through the head/brain without intravenous contrast. Radiation dose: Total exam DLP = 803.46 mGy-cm. This CT exam was performed using one or more of the following dose reduction techniques: Automated exposure control, adjustment of the mA and/or kV according to patient size, and/or use of iterative reconstruction technique. FINDINGS: HEMORRHAGE: No intracranial hemorrhage. BRAIN: No mass effect or edema. Atrophy. Chronic microvascular ischemic changes. VENTRICLES: Unremarkable. No hydrocephalus. CALVARIUM: Unremarkable. PARANASAL SINUSES: Right sphenoid sinus disease. MASTOID AIR CELLS: Unremarkable as visualized. No inflammatory changes. OTHER FINDINGS: None. IMPRESSION: No acute intracranial pathology. Age-related changes. No significant interval change.
--- NOTE | 2018-03-28 12:43 | CT ---
Date of service: 03/28/2018 PROCEDURE: CT Chest, Abdomen and Pelvis without intravenous contrast HISTORY: ams, abd distention COMPARISON: Correlation is made to CT scan of the chest dated 03/10/[address] scan of the abdomen pelvis dated 01/25/2018.. TECHNIQUE: Radiation dose: Total exam DLP = 966.62 mGy-cm. This CT exam was performed using one or more of the following dose reduction techniques: Automated exposure control, adjustment of the mA and/or kV according to patient size, and/or use of iterative reconstruction technique. FINDINGS: CT CHEST WITHOUT CONTRAST: LUNGS: Clear. No nodule, mass or consolidation. MEDIASTINUM: Unremarkable. Normal caliber aorta and pulmonary arterial trunk. Cardiomegaly. Coronary arterial and valvular calcifications. Aortic atherosclerotic calcifications. LYMPH NODES: Unremarkable. PLEURA: Unremarkable. No pneumothorax. No pleural fluid. BONES: Unremarkable. OTHER FINDINGS: None. CT ABDOMEN AND PELVIS: LIVER: Hepatic dome granuloma. Nodular contour. No gross lesion or ductal dilatation. GALLBLADDER AND BILE DUCTS: Prior cholecystectomy. PANCREAS: Unremarkable. No gross lesion or ductal dilatation. SPLEEN: Unremarkable. ADRENALS: Unremarkable. No mass. KIDNEYS AND URETERS: Unremarkable. No hydronephrosis. No solid mass. VASCULATURE: Aortic atherosclerotic calcifications. No aortic aneurysm. Infrarenal IVC filter. BOWEL: Small hiatal hernia. Prominent loops of fluid-filled small and large bowel. No gross mural thickening. APPENDIX: No findings to suggest acute appendicitis. PERITONEUM: Small fat containing umbilical hernia. No free fluid. No free air. LYMPH NODES: Unremarkable. No enlarged lymph nodes. BLADDER: Unremarkable. REPRODUCTIVE: Unremarkable. BONES: Old rib fractures. Diffuse spinal degenerative changes. Stable T11 vertebral compression fracture. OTHER FINDINGS: None. IMPRESSION: Prominent fluid-filled loops of small and large bowel. Small bowel measuring as wide as 3.5 cm which can be seen with ileus. Additional findings as above.
[2018-03-28] MEDS ORDERED: Albuterol 0.083% Inhal Sol (2.5 mg/3 mL) UD INH STA (13:21)
[2018-03-28] MEDS: Albuterol-Ipratrop 3 mg / 0.5 (3 ml) UD INH PRN (13:29)
--- NOTE | 2018-03-28 15:18 | RAD ---
Date of service: 03/28/2018 HISTORY: s/p NG tube insertion and removal COMPARISON: 03/23/2018 FINDINGS: LUNGS: No active pulmonary disease. PLEURA: No significant pleural effusion identified, no pneumothorax apparent. CARDIOVASCULAR: There is atherosclerotic calcification of the aortic arch. Normal cardiac size. No pulmonary vascular congestion. OSSEOUS STRUCTURES: No significant abnormalities. VISUALIZED UPPER ABDOMEN: Normal. OTHER FINDINGS: None. IMPRESSION: No active disease.
[2018-03-28 15:58] LABS: ABG ALLEN TEST YES; ARTERIAL BLOOD GAS HCO3 23.8 mmol/L (21-28); ARTERIAL BLOOD GAS O2 SAT 97.9 % (95-98); ARTERIAL BLOOD GAS PCO2 37 mm/Hg (35-45); ARTERIAL BLOOD GAS PO2 135 mm/Hg (80-100)
--- NOTE | 2018-03-28 18:50 | RAD ---
Date of service: 03/28/2018 HISTORY: Placement of NG tube COMPARISON: Chest radiograph performed approximately 4 hours prior. FINDINGS: LUNGS: Bibasilar atelectasis. PLEURA: No significant pleural effusion identified, no pneumothorax apparent. CARDIOVASCULAR: Aortic atherosclerotic calcifications. Cardiomediastinal silhouette stably enlarged. OSSEOUS STRUCTURES: Unchanged. VISUALIZED UPPER ABDOMEN: Normal. OTHER FINDINGS: New enteric tube with tip in the stomach. IMPRESSION: New enteric tube in satisfactory position. Bibasilar atelectasis.
--- NOTE | 2018-03-28 21:15 | CP.PCM.PN ---
Subjective - Date & Time of Evaluation Date of Evaluation: 03/28/18 Time of Evaluation: 12:30 - Subjective Subjective: Patient with new onset AMS, confused; made NPO due to aspiration precaution; getting EEG; Objective - Vital Signs/Intake and Output Vital Signs (last 24 hours): Temp Pulse Resp BP Pulse Ox 98.4 F 106 H 20 119/65 97 03/28/18 20:03 03/28/18 20:03 03/28/18 20:03 03/28/18 20:03 03/28/18 20:03 - Medications Medications: Current Medications Albuterol/Ipratropium (Duoneb 3 Mg/0.5 Mg (3 Ml) Ud) 3 ml INH RQ6 PRN PRN Reason: Shortness of Breath Last Admin: 03/28/18 13:29 Dose: 3 ml Aripiprazole (Abilify) 2 mg PO HS [facility] Last Admin: 03/27/18 22:09 Dose: 2 mg Aspirin (Ecotrin) 81 mg PO DAILY [facility] Last Admin: 03/28/18 09:18 Dose: Not Given Atorvastatin Calcium (Lipitor) 20 mg PO DAILY@2200 [facility] Last Admin: 03/27/18 22:10 Dose: 20 mg Benztropine Mesylate (Cogentin) 1 mg PO Q12 [facility] Last Admin: 03/28/18 09:19 Dose: Not Given Bortezomib (Velcade) 3.5 mg IVP TUTH [facility] Buspirone HCl (Buspar) 15 mg PO Q12 [facility] Last Admin: 03/28/18 09:19 Dose: Not Given Clonazepam (Klonopin) 0.5 mg PO DAILY PRN PRN Reason: Anxiety Dextrose (Dextrose 50% Inj) 0 ml IV STAT PRN; Protocol PRN Reason: Hypoglycemia Protocol Dextrose (Glutose 15) 0 gm PO ONCE PRN; Protocol PRN Reason: Hypoglycemia Protocol Duloxetine HCl (Cymbalta) 60 mg PO DAILY [facility] Last Admin: 03/28/18 09:19 Dose: Not Given Enalapril Maleate (Vasotec) 5 mg PO DAILY [facility] Enoxaparin Sodium (Lovenox) 40 mg SC DAILY [facility]; Protocol Last Admin: 03/28/18 09:24 Dose: 40 mg Escitalopram Oxalate (Lexapro) 10 mg PO DAILY [facility] Last Admin: 03/28/18 09:18 Dose: Not Given Famotidine (Pepcid) 40 mg IVP DAILY [facility] Last Admin: 03/28/18 18:28 Dose: 40 mg Ferrous Sulfate (Feosol) 325 mg PO DAILY [facility] Last Admin: 03/25/18 08:45 Dose: 325 mg Gabapentin (Neurontin) 100 mg PO TID [facility] Last Admin: 03/28/18 17:35 Dose: Not Given Glucagon (Glucagen Diagnostic Kit) 0 mg IM STAT PRN; Protocol PRN Reason: Hypoglycemia Protocol Home Med (Riociguat [Adempas]) 2 mg PO TID [facility] Last Admin: 03/28/18 17:36 Dose: Not Given Hydrocortisone (Cortef) 10 mg PO [facility] Last Admin: 03/27/18 22:10 Dose: 10 mg Potassium Chloride/Dextrose/Sod Cl (D5-Ns1l+40meq Kcl) 1,000 mls @ 80 mls/hr IV .[id number] [facility] Stop: 03/29/18 07:32 Last Admin: 03/28/18 11:05 Dose: 80 mls/hr Insulin Detemir (Levemir) 10 units SC [facility] Last Admin: 03/27/18 22:00 Dose: Not Given Insulin Human Lispro (Humalog) 5 units SC TID [facility] Last Admin: 03/24/18 09:12 Dose: Not Given Insulin Human Lispro (Humalog) 0 units SC ACCU-CHECK [facility]; Protocol Last Admin: 03/28/18 17:35 Dose: Not Given Levothyroxine Sodium (Synthroid) 100 mcg PO DAILY@0630 [facility] Last Admin: 03/28/18 07:04 Dose: 100 mcg Metformin HCl (Glucophage) 500 mg PO BID [facility] Last Admin: 03/24/18 09:07 Dose: 500 mg Torsemide (Demadex) 20 mg PO DAILY [facility] - Labs Labs: 03/28/18 07:06 03/28/18 07:06 PT 11.8 Seconds (9.8-13.1) 03/23/18 17:02 INR 1.0 03/23/18 17:02 APTT 29.2 Seconds (25.6-37.1) 03/23/18 17:02 - Constitutional Appears: Non-toxic, No Acute Distress - Eye Exam Eye Exam: Normal appearance - Respiratory Exam Respiratory Exam: absent: Respiratory Distress Additional comments: CTA on limited auscultation; - Cardiovascular Exam Cardiovascular Exam: RRR, +S1, +S2 - GI/Abdominal Exam GI & Abdominal Exam: Soft. absent: Distended, Tenderness - Extremities Exam Additional comments: no leg edema; - Neurological Exam Neurological Exam: Alert, Awake - Psychiatric Exam Additional comments: confused - Skin Skin Exam: Warm. absent: Cyanosis Assessment and Plan (1) Hypomagnesemia Assessment & Plan: Resolved after aggressive IV replenishment, level now dropping; monitor closely; restart PO mag ox 400 mg bid when possible; Status: Acute (2) Hypercalcemia Status: Resolved (3) CHF (congestive heart failure) Assessment & Plan: With diastolic dysfunction and severe pulm htn; has been on IVF lately s/p hypercalcemia; needs to monitor closely to avoid right sided overload; recommend to limit IVF and restart torsemide when PO intake adequate; Status: Chronic (4) Acute kidney injury Assessment & Plan: Mild increase again in serum creatinine; may be cardiorenal in the setting of pulm htn/diastolic dysfunction; see above regarding IVF and diuretics; Status: Acute
[2018-03-28] MEDS: Insulin Detemir 100 Units/ml Inj SC SCH (22:16)
[2018-03-29] MEDS: Potassium Chl 40 mEq in D5-NS 1,000 ML IV SCH (00:24)
[2018-03-29 05:34] LABS: HEMOGLOBIN 10.2 g/dL (12.0-16.0); MEAN CELL VOLUME 88.3 fl (81.0-99.0); MEAN CORPUSCULAR HEMOGLOBIN 29.2 pg (27.0-31.0); MEAN CORPUSCULAR HGB CONC 33.1 g/dL (33.0-37.0); RBC 3.5 Mil/uL (3.80-5.20); WHITE BLOOD COUNT 4.7 K/uL (4.8-10.8)
[2018-03-29 05:49] LABS: ALB/GLOB RATIO 0.9 (1.0-2.1); ALBUMIN 2.9 g/dL (3.5-5.0); ALT/SGPT 20 U/L (9-52); AST/SGOT 20 U/L (14-36); BLOOD UREA NITROGEN 32 mg/dl (7-17); CALCIUM 7.9 mg/dL (8.4-10.2); GFR NON-AFRICAN AMERICAN 55
[2018-03-29] MEDS ORDERED: Potassium Ch 20mEq in D5-1/2NS 1,000 ML IV SCH (09:15)
--- NOTE | 2018-03-29 09:39 | CP.PCM.PN ---
Subjective - Date & Time of Evaluation Date of Evaluation: 03/29/18 Time of Evaluation: 08:30 - Subjective Subjective: Overnight Events: NG tube reinserted in PM. Pt agitated overnight, pulled NG tube this AM. This AM patient is more alert and awake, however she remains confused, asking for her grandson. States he is in the hallway, she can hear him. ROS unobtainable. No vomiting overnight, no bowel movements reported. Awaiting EEG report. Her abdomen is still distended but less so than yesterday. If she remains distended will get abdominal flat plate to reassess illeus and possibly reinsert NG tube. Objective - Vital Signs/Intake and Output Vital Signs (last 24 hours): Temp Pulse Resp BP Pulse Ox 98.1 F 99 H 18 107/56 L 99 03/29/18 07:59 03/29/18 07:59 03/29/18 07:59 03/29/18 07:59 03/29/18 07:59 - Medications Medications: Current Medications Albuterol/Ipratropium (Duoneb 3 Mg/0.5 Mg (3 Ml) Ud) 3 ml INH RQ6 PRN PRN Reason: Shortness of Breath Last Admin: 03/28/18 13:29 Dose: 3 ml Aripiprazole (Abilify) 2 mg PO HS [facility] Last Admin: 03/28/18 22:13 Dose: Not Given Aspirin (Ecotrin) 81 mg PO DAILY [facility] Last Admin: 03/28/18 09:18 Dose: Not Given Atorvastatin Calcium (Lipitor) 20 mg PO DAILY@2200 [facility] Last Admin: 03/27/18 22:10 Dose: 20 mg Benztropine Mesylate (Cogentin) 1 mg PO Q12 [facility] Last Admin: 03/28/18 22:13 Dose: Not Given Bortezomib (Velcade) 3.5 mg IVP [facility] Buspirone HCl (Buspar) 15 mg PO Q12 [facility] Last Admin: 03/28/18 22:13 Dose: Not Given Clonazepam (Klonopin) 0.5 mg PO DAILY PRN PRN Reason: Anxiety Dextrose (Dextrose 50% Inj) 0 ml IV STAT PRN; Protocol PRN Reason: Hypoglycemia Protocol Dextrose (Glutose 15) 0 gm PO ONCE PRN; Protocol PRN Reason: Hypoglycemia Protocol Duloxetine HCl (Cymbalta) 60 mg PO DAILY [facility] Last Admin: 03/28/18 09:19 Dose: Not Given Enalapril Maleate (Vasotec) 5 mg PO DAILY [facility] Enoxaparin Sodium (Lovenox) 40 mg SC DAILY [facility]; Protocol Last Admin: 03/28/18 09:24 Dose: 40 mg Escitalopram Oxalate (Lexapro) 10 mg PO DAILY [facility] Last Admin: 03/28/18 09:18 Dose: Not Given Famotidine (Pepcid) 40 mg IVP DAILY [facility] Last Admin: 03/28/18 18:28 Dose: 40 mg Ferrous Sulfate (Feosol) 325 mg PO DAILY [facility] Last Admin: 03/25/18 08:45 Dose: 325 mg Gabapentin (Neurontin) 100 mg PO TID [facility] Last Admin: 03/28/18 17:35 Dose: Not Given Glucagon (Glucagen Diagnostic Kit) 0 mg IM STAT PRN; Protocol PRN Reason: Hypoglycemia Protocol Home Med (Riociguat [Adempas]) 2 mg PO TID [facility] Last Admin: 03/28/18 17:36 Dose: Not Given Hydrocortisone (Cortef) 10 mg PO [facility] Last Admin: 03/28/18 22:13 Dose: Not Given Potassium Chloride/Dextrose/Sod Cl (Potassium Chl 20 Meq In D5-1/2ns) 1,000 mls @ 80 mls/hr IV .[id number] [facility] Stop: 03/29/18 21:44 Insulin Detemir (Levemir) 10 units SC [facility] Last Admin: 03/28/18 22:16 Dose: Not Given Insulin Human Lispro (Humalog) 5 units SC TID [facility] Last Admin: 03/24/18 09:12 Dose: Not Given Insulin Human Lispro (Humalog) 0 units SC ACCU-CHECK [facility]; Protocol Last Admin: 03/28/18 22:15 Dose: Not Given Levothyroxine Sodium (Synthroid) 100 mcg PO DAILY@0630 [facility] Last Admin: 03/28/18 07:04 Dose: 100 mcg Metformin HCl (Glucophage) 500 mg PO BID [facility] Last Admin: 03/24/18 09:07 Dose: 500 mg Torsemide (Demadex) 20 mg PO DAILY [facility] - Labs Labs: 03/29/18 04:30 03/29/18 04:30 PT 11.8 Seconds (9.8-13.1) 03/23/18 17:02 INR 1.0 03/23/18 17:02 APTT 29.2 Seconds (25.6-37.1) 03/23/18 17:02 - Constitutional Appears: Agitated, Confused - Head Exam Head Exam: NORMAL INSPECTION - Eye Exam Eye Exam: Normal appearance - Respiratory Exam Respiratory Exam: NORMAL BREATHING PATTERN. absent: Accessory Muscle Use, Decreased Breath Sounds, Respiratory Distress - Cardiovascular Exam Cardiovascular Exam: REGULAR RHYTHM, +S1, +S2 - GI/Abdominal Exam GI & Abdominal Exam: Distended (mildly), Hypoactive Bowel Sounds. absent: G uarding, Tenderness - Extremities Exam Extremities Exam: absent: Pedal Edema - Neurological Exam Neurological Exam: Altered - Psychiatric Exam Psychiatric exam: Agitated - Skin Skin Exam: Dry, Intact Assessment and Plan - Assessment and Plan (Free Text) Assessment: 72 yo F with a PMHx of multiple myeloma, DM, HTN, COPD, 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 Pt has had many metabolic derangements that are likely contributing to her AMS. Her electrolytes are now WNL. Patient continues to have AMS likely secondary to delirium, she is more alert today than yesterday but remains confused and agitated. She does not appear to have infection: afebrile, without leukocytosis. Pending Procalcitonin and blood and urine cultures. Her abdominal distention is likely secondary to ileus. Continue with NPO status due to ileus and altered mentation. Elevate head of bed to 45 deg, aspiration precautions. ABG was unremarkable. CT of Head/Chest/Abdomen/Pelvis: prominent fluid filled loops of bowel - ng tube inserted 03/28/18 x 2, pt pulled NG tube x 2 Neuro consult appreciated - Dr. Marrero -Stat EEG ordered and completed, pending report. PLAN: >Altered Mental Status /Delirium --secondary to delirium, metabolic derangements have resolved. --Head CT negative for acute findings, repeat pending --thought to be secondary to metabolic derangements ( hypercalcemia, hypomagnesemia, dehydration)--resolved --Neuro checks --neuro consult: EEG pending report --abg unremarkable. >Ileus --likely secondary to metabolic derangements that are now corrected. -stool studies sent: fecal leukocytes, FOBT(neg), cdiff (negx2) -of note: pt was on feosol --NG tube inserted but patient removed this, she did have foul smelling output. --upon reinsertion this mucous like output, nonbloody, nonbilious. No malodor. CXR : adequate placement of tube. However pt removed overnight. --serial abdominal exams- will reinsert ng tube if patient continues to have ileus. --monitor closely Metabolic Derangements: >Hypercalcemia -- resolved --Possibly due to dehydration vs missed Multiple Myeloma treatment --Holding daily Torsemide 20mg daily --Continue to monitor >Hypomagnesemia --chronic, improved --IV and PO mag discontinued --Discontinued PPI as this can cause hypoMG >Hypophosphatemia --phos: 2.0 will attempt to replete po if pt passes swallow eval - if not will replete IV --Continue to monitor >IDDM --Metformin held, Meal time Bolus held, put on low sliding scale and reduced basal insulin given pt's poor intake and low sugars --Accuchecks --Hypoglycemic protocol --ISS, low dose >Multiple Myeloma --Heme/Onc on board: Dr. Vilchis --Bortezomib on hold, will administer in outpatient setting >CHF/HTN --Echocardiogram on 08/25/17 showed LVEF 60-65%, grade I abnormal relaxation pattern. --Possibly diastolic dysfunction-CHF --Holding torsemide for now as per nephro; will monitor volume status >COPD/Pulm HTN --Resumed home meds >DVT Prophylaxis --Lovenox 40mg SC daily --SCDs Case d/w Dr. Neumann. Rosa Bhatia PGY3
--- NOTE | 2018-03-29 11:32 | CP.PCM.PN ---
Subjective - Date & Time of Evaluation Date of Evaluation: 03/29/18 Time of Evaluation: 11:27 - Subjective Subjective: Neurology Follow-Up Note: Mrs. Perkins was evaluated this morning at bedside. Daughter, Mary Kate, also present at bedside. Pt states that she feels good today and offers no complaints aside from being hungry. Per pt's daughter the pt's behavior has improved since yesterday. She is still confused but is able to maintain a conversation with me, answer most questions appropriately, and follow commands. Per daughter, these symptoms started on 03/26/18 right after they buried her recently son. Pt denies h/a, dizziness, visual changes, chest pain, palpitations, sob, cough, abd pain, n/v/d. Objective - Vital Signs/Intake and Output Vital Signs (last 24 hours): Temp Pulse Resp BP Pulse Ox 98.1 F 99 H 18 107/56 L 99 03/29/18 07:59 03/29/18 07:59 03/29/18 07:59 03/29/18 07:59 03/29/18 07:59 - Medications Medications: Current Medications Albuterol/Ipratropium (Duoneb 3 Mg/0.5 Mg (3 Ml) Ud) 3 ml INH RQ6 PRN PRN Reason: Shortness of Breath Last Admin: 03/28/18 13:29 Dose: 3 ml Aripiprazole (Abilify) 2 mg PO HS [facility] Last Admin: 03/28/18 22:13 Dose: Not Given Aspirin (Ecotrin) 81 mg PO DAILY [facility] Last Admin: 03/28/18 09:18 Dose: Not Given Atorvastatin Calcium (Lipitor) 20 mg PO DAILY@2200 [facility] Last Admin: 03/27/18 22:10 Dose: 20 mg Benztropine Mesylate (Cogentin) 1 mg PO Q12 [facility] Last Admin: 03/28/18 22:13 Dose: Not Given [facility]ortezomib (Velcade) 3.[facility] Buspirone HCl (Buspar) 15 mg PO Q12 [facility] Last Admin: 03/28/18 22:13 Dose: Not Given Clonazepam (Klonopin) 0.5 mg PO DAILY PRN PRN Reason: Anxiety Dextrose (Dextrose 50% Inj) 0 ml IV STAT PRN; Protocol PRN Reason: Hypoglycemia Protocol Dextrose (Glutose 15) 0 gm PO ONCE PRN; Protocol PRN Reason: Hypoglycemia Protocol Duloxetine HCl (Cymbalta) 60 mg PO DAILY [facility] Last Admin: 03/28/18 09:19 Dose: Not Given Enalapril Maleate (Vasotec) 5 mg PO DAILY [facility] Enoxaparin Sodium (Lovenox) 40 mg SC DAILY [facility]; Protocol Last Admin: 03/28/18 09:24 Dose: 40 mg Escitalopram Oxalate (Lexapro) 10 mg PO DAILY [facility] Last Admin: 03/28/18 09:18 Dose: Not Given Famotidine (Pepcid) 40 mg IVP DAILY [facility] Last Admin: 03/28/18 18:28 Dose: 40 mg Ferrous Sulfate (Feosol) 325 mg PO DAILY [facility] Last Admin: 03/25/18 08:45 Dose: 325 mg Gabapentin (Neurontin) 100 mg PO TID [facility] Last Admin: 03/28/18 17:35 Dose: Not Given Glucagon (Glucagen Diagnostic Kit) 0 mg IM STAT PRN; Protocol PRN Reason: Hypoglycemia Protocol Home Med (Riociguat [Adempas]) 2 mg PO TID [facility] Last Admin: 03/28/18 17:36 Dose: Not Given Hydrocortisone (Cortef) 10 mg PO [facility] Last Admin: 03/28/18 22:13 Dose: Not Given Insulin Detemir (Levemir) 10 units SC [facility] Last Admin: 03/28/18 22:16 Dose: Not Given Insulin Human Lispro (Humalog) 5 units SC TID [facility] Last Admin: 03/24/18 09:12 Dose: Not Given Insulin Human Lispro (Humalog) 0 units SC ACCU-CHECK [facility]; Protocol Last Admin: 03/28/18 22:15 Dose: Not Given Levothyroxine Sodium (Synthroid) 100 mcg PO DAILY@0630 [facility] Last Admin: 03/28/18 07:04 Dose: 100 mcg Metformin HCl (Glucophage) 500 mg PO BID [facility] Last Admin: 03/24/18 09:07 Dose: 500 mg Torsemide (Demadex) 20 mg PO DAILY [facility] - Labs Labs: 03/29/18 04:30 03/29/18 04:30 PT 11.8 Seconds (9.8-13.1) 03/23/18 17:02 INR 1.0 03/23/18 17:02 APTT 29.2 Seconds (25.6-37.1) 03/23/18 17:02 - Constitutional Appears: Well, Non-toxic, No Acute Distress, Confused - Head Exam Head Exam: ATRAUMATIC, NORMAL INSPECTION, NORMOCEPHALIC - Eye Exam Eye Exam: EOMI, Normal appearance, PERRL Pupil Exam: NORMAL ACCOMODATION, PERRL - ENT Exam ENT Exam: Mucous Membranes Moist, Normal Exam - Neck Exam Neck Exam: Full ROM, Normal Inspection - Respiratory Exam Respiratory Exam: NORMAL BREATHING PATTERN - Cardiovascular Exam Cardiovascular Exam: REGULAR RHYTHM - GI/Abdominal Exam GI & Abdominal Exam: Soft - Extremities Exam Extremities Exam: Full ROM. absent: Calf Tenderness, Pedal Edema - Back Exam Back Exam: Full ROM, NORMAL INSPECTION - Neurological Exam Neurological Exam: Alert, Altered, Awake, CN II-XII Intact, Reflexes Normal. absent: Oriented x3 Neuro motor strength exam: Left Upper Extremity: 4, Right Upper Extremity: 4, Left Lower Extremity: 4, Right Lower Extremity: 4 Additional comments: Awake, alert, oriented to place and person; disoriented to time (cannot recall the year) Confused but pleasant, answers questions, able to hold a conversation with me, and able to follow commands No echolalia noted today, no aphasia Able to move all extremities independently without weakness Sensation intact Gait not assessed. - Psychiatric Exam Psychiatric exam: absent: Normal Affect, Normal Mood Additional comments: confused but pleasant states that she sees a little boy jumping in the room and on the magallon on/off (not presently) - Skin Skin Exam: Normal Color Assessment and Plan (1) Acute encephalopathy Assessment & Plan: Imaging reviewed: -EEG (03/28/18): results pending -CT Head (03/28/18): No acute intracranial pathology. Age-related changes. No significant interval change. -CT Head (03/23/18): No evidence of acute intracranial hemorrhage mass effect or midline shift. No significant interval changes noted since the prior exam. Mrs. Perkins's behavior and mental status has improved since yesterday. Daughter at bedside also states that she noticed an improvement compared to yest erday. Pt's acute encephalopathy could be related to an acute psychotic reaction as her grandson just a few weeks ago vs seizures vs acute ischemic stroke. -EEG done; results pending -Will discuss a possible MRI Brain and will order if necessary at this time. -Continue current treatment and recommendations by other consults. -Notify neuro team of any acute changes in pt's condition. Case discussed with Dr. Marrero Status: Acute
[2018-03-29] MEDS: Enoxaparin 40 mg Syringe SC SCH (11:55)
[2018-03-29] MEDS: Insulin Lispro (humaLOG) 100 Units/ml Inj SC SCH ×4 (11:55→23:55)
[2018-03-29] MEDS: RIOCIGUAT 2 MG PO SCH ×3 (12:12→17:15)
--- NOTE | 2018-03-29 13:32 | RAD ---
Date of service: 03/29/2018 HISTORY: f/u ileus COMPARISON: Abdominal radiograph dated 03/27/2018. FINDINGS: BOWEL: Limited evaluation. Gaseous distention of bowel, partially imaged. BONES: Normal. OTHER FINDINGS: None. IMPRESSION: Partially imaged gaseous distention of bowel.
[2018-03-29] MEDS ORDERED: Chlorhexidine Gluconate 1 APPL/PKT TP ONE (13:45)
--- NOTE | 2018-03-29 14:35 | RAD ---
Date of service: 03/29/2018 PROCEDURE: CHEST RADIOGRAPH, 1 VIEW HISTORY: ng tube placement COMPARISON: Chest radiograph dated 03/28/2018. FINDINGS: LUNGS: Low lung volumes. Bibasilar atelectasis. PLEURA: No pneumothorax or pleural fluid seen. CARDIOVASCULAR: Aortic atherosclerotic calcifications. Cardiomediastinal silhouette stably enlarged. OSSEOUS STRUCTURES: Unchanged. VISUALIZED UPPER ABDOMEN: Normal. OTHER FINDINGS: Enteric tube with tip in the stomach IMPRESSION: Enteric tube in satisfactory position. Bibasilar atelectasis.
--- NOTE | 2018-03-29 15:32 | PCM.EEG ---
Electroencephalogram Report - Electroencephalogram Report Procedure Date: 03/28/18 Medication: Asa, Cymbalta, Abilify, Interpretation: Technical Information: This was a 16-channel EEG, 1-channel EKG , performed using an Vendavo machine., electrodes were applied according to the 10/20 international placement system, impedances were less than 5 K Ohm. Start 13;35 End; 14;19 Total 46 min. Clinical Information: This EEG was performed on a 72 y/o woman with later mental status and seizure like events. EEG Detail: During resting wakefulness there was a markedly attenuated symmetric posterior dominant rhythm at 7 Hz, 30-50 uV, which was reactive to eye opening and closing. The EEG was very attenuated, right more than left, however there was no clear focality to the findings. Drowsiness (14;03) was associated with fragmentation of the posterior dominant rhythm and with slow roving eye movements. Sleep was not seen. Hyperventilation was not performed. Photic stimulation was performed and there were no changes in the record. ECG was associated with a normal sinus rhythm. Impression: This is an abnormal EEG record that demonstrate the presence of a mild to moderate non specific diffuse disturbance of cortical activity, this is in keeping with a diffuse wilson matter dysfunction. These findings do not support a specific etiology. No seizures/events captured.
[2018-03-29] MEDS: Levothyroxine 100 MCG TAB PO SCH (16:05)
--- NOTE | 2018-03-29 18:36 | CP.PCM.PN ---
Subjective - Date & Time of Evaluation Date of Evaluation: 03/29/18 Time of Evaluation: 13:00 - Subjective Subjective: Patient less confused today; tolerating some PO feeds; Objective - Vital Signs/Intake and Output Vital Signs (last 24 hours): Temp Pulse Resp BP Pulse Ox 98.5 F 97 H 18 109/71 99 03/29/18 16:24 03/29/18 16:24 03/29/18 16:24 03/29/18 16:24 03/29/18 16:24 - Medications Medications: Current Medications Albuterol/Ipratropium (Duoneb 3 Mg/0.5 Mg (3 Ml) Ud) 3 ml INH RQ6 PRN PRN Reason: Shortness of Breath Last Admin: 03/28/18 13:29 Dose: 3 ml Aripiprazole (Abilify) 2 mg PO HS [facility] Last Admin: 03/28/18 22:13 Dose: Not Given Aspirin (Ecotrin) 81 mg PO DAILY [facility] Last Admin: 03/29/18 11:53 Dose: 81 mg Atorvastatin Calcium (Lipitor) 20 mg PO DAILY@2200 [facility] Last Admin: 03/27/18 22:10 Dose: 20 mg Benztropine Mesylate (Cogentin) 1 mg PO Q12 [facility] Last Admin: 03/29/18 11:49 Dose: 1 mg Bortezomib (Velcade) 3.5 mg IVP [facility] Last Admin: 03/29/18 16:05 Dose: Not Given Buspirone HCl (Buspar) 15 mg PO Q12 [facility] Last Admin: 03/29/18 11:53 Dose: 15 mg Clonazepam (Klonopin) 0.5 mg PO DAILY PRN PRN Reason: Anxiety Dextrose (Dextrose 50% Inj) 0 ml IV STAT PRN; Protocol PRN Reason: Hypoglycemia Protocol Dextrose (Glutose 15) 0 gm PO ONCE PRN; Protocol PRN Reason: Hypoglycemia Protocol Duloxetine HCl (Cymbalta) 60 mg PO DAILY [facility] Last Admin: 03/29/18 11:47 Dose: 60 mg Enalapril Maleate (Vasotec) 5 mg PO DAILY [facility] Enoxaparin Sodium (Lovenox) 40 mg SC DAILY [facility]; Protocol Last Admin: 03/29/18 11:55 Dose: 40 mg Escitalopram Oxalate (Lexapro) 10 mg PO DAILY [facility] Last Admin: 03/29/18 11:55 Dose: 10 mg Famotidine (Pepcid) 40 mg IVP DAILY [facility] Last Admin: 03/29/18 17:17 Dose: 40 mg Ferrous Sulfate (Feosol) 325 mg PO DAILY [facility] Last Admin: 03/25/18 08:45 Dose: 325 mg Gabapentin (Neurontin) 100 mg PO TID [facility] Last Admin: 03/29/18 17:18 Dose: Not Given Glucagon (Glucagen Diagnostic Kit) 0 mg IM STAT PRN; Protocol PRN Reason: Hypoglycemia Protocol Home Med (Riociguat [Adempas]) 2 mg PO TID [facility] Last Admin: 03/29/18 17:15 Dose: Not Given Hydrocortisone (Cortef) 10 mg PO [facility] Last Admin: 03/28/18 22:13 Dose: Not Given Potassium Chloride/Dextrose/Sod Cl (Potassium Chl 20 Meq In D5-Ns) 1,000 mls @ 80 mls/hr IV .[id number] [facility] Stop: 03/30/18 17:34 Insulin Detemir (Levemir) 10 units SC [facility] Last Admin: 03/28/18 22:16 Dose: Not Given Insulin Human Lispro (Humalog) 5 units SC TID [facility] Last Admin: 03/24/18 09:12 Dose: Not Given Insulin Human Lispro (Humalog) 0 units SC ACCU-CHECK [facility]; Protocol Last Admin: 03/29/18 17:15 Dose: Not Given Levothyroxine Sodium (Synthroid) 100 mcg PO DAILY@0630 [facility] Last Admin: 03/29/18 16:05 Dose: Not Given Metformin HCl (Glucophage) 500 mg PO BID [facility] Last Admin: 03/24/18 09:07 Dose: 500 mg Torsemide (Demadex) 20 mg PO DAILY [facility] - Labs Labs: 03/29/18 04:30 03/29/18 04:30 PT 11.8 Seconds (9.8-13.1) 03/23/18 17:02 INR 1.0 03/23/18 17:02 APTT 29.2 Seconds (25.6-37.1) 03/23/18 17:02 - Constitutional Appears: Non-toxic, No Acute Distress - Eye Exam Eye Exam: Normal appearance - Respiratory Exam Respiratory Exam: Rales. absent: Respiratory Distress - Cardiovascular Exam Cardiovascular Exam: RRR, +S1, +S2 - GI/Abdominal Exam GI & Abdominal Exam: Soft. absent: Distended, Tenderness - Extremities Exam Additional comments: no significant leg edema - Neurological Exam Neurological Exam: Alert, Awake - Psychiatric Exam Psychiatric exam: Normal Mood. absent: Agitated - Skin Skin Exam: Warm. absent: Cyanosis Assessment and Plan (1) Hypomagnesemia Status: Resolved (2) Hypercalcemia Status: Resolved (3) CHF (congestive heart failure) Assessment & Plan: With diastolic dysfunction and pulm htn; getting IVF and off diuretics in the setting of being NPO; need to avoid R sided overload; will check urine Na to better assess intravascular volume status; Status: Chronic (4) Acute kidney injury Status: Acute
[2018-03-29] MEDS: Potassium Chl 20 mEq in D5-NS 1,000 ML IV SCH (21:29)
[2018-03-29] MEDS: Insulin Detemir 100 Units/ml Inj SC SCH (21:36)
--- NOTE | 2018-03-29 22:44 | CP.PCM.PN ---
Subjective - Date & Time of Evaluation Date of Evaluation: 03/29/18 Time of Evaluation: 17:00 - Subjective Subjective: Mental status improved Objective - Vital Signs/Intake and Output Vital Signs (last 24 hours): Temp Pulse Resp BP Pulse Ox 98.5 F 100 H 18 127/80 98 03/29/18 20:07 03/29/18 20:39 03/29/18 20:07 03/29/18 20:07 03/29/18 20:07 - Medications Medications: Current Medications Albuterol/Ipratropium (Duoneb 3 Mg/0.5 Mg (3 Ml) Ud) 3 ml INH RQ6 PRN PRN Reason: Shortness of Breath Last Admin: 03/28/18 13:29 Dose: 3 ml Aripiprazole (Abilify) 2 mg PO HS [facility] Last Admin: 03/29/18 21:36 Dose: Not Given Aspirin (Ecotrin) 81 mg PO DAILY [facility] Last Admin: 03/29/18 11:53 Dose: 81 mg Atorvastatin Calcium (Lipitor) 20 mg PO DAILY@2200 [facility] Last Admin: 03/27/18 22:10 Dose: 20 mg Benztropine Mesylate (Cogentin) 1 mg PO Q12 [facility] Last Admin: 03/29/18 20:27 Dose: Not Given Bortezomib (Velcade) 3.5 mg IVP TUTH [facility] Last Admin: 03/29/18 16:05 Dose: Not Given Buspirone HCl (Buspar) 15 mg PO Q12 [facility] Last Admin: 03/29/18 20:27 Dose: Not Given Clonazepam (Klonopin) 0.5 mg PO DAILY PRN PRN Reason: Anxiety Dextrose (Dextrose 50% Inj) 0 ml IV STAT PRN; Protocol PRN Reason: Hypoglycemia Protocol Dextrose (Glutose 15) 0 gm PO ONCE PRN; Protocol PRN Reason: Hypoglycemia Protocol Duloxetine HCl (Cymbalta) 60 mg PO DAILY [facility] Last Admin: 03/29/18 11:47 Dose: 60 mg Enalapril Maleate (Vasotec) 5 mg PO DAILY [facility] Enoxaparin Sodium (Lovenox) 40 mg SC DAILY [facility]; Protocol Last Admin: 03/29/18 11:55 Dose: 40 mg Escitalopram Oxalate (Lexapro) 10 mg PO DAILY [facility] Last Admin: 03/29/18 11:55 Dose: 10 mg Famotidine (Pepcid) 40 mg IVP DAILY [facility] Last Admin: 03/29/18 17:17 Dose: 40 mg Ferrous Sulfate (Feosol) 325 mg PO DAILY [facility] Last Admin: 03/25/18 08:45 Dose: 325 mg Gabapentin (Neurontin) 100 mg PO TID [facility] Last Admin: 03/29/18 17:18 Dose: Not Given Glucagon (Glucagen Diagnostic Kit) 0 mg IM STAT PRN; Protocol PRN Reason: Hypoglycemia Protocol Home Med (Riociguat [Adempas]) 2 mg PO TID [facility] Last Admin: 03/29/18 17:15 Dose: Not Given Hydrocortisone (Cortef) 10 mg PO [facility] Last Admin: 03/29/18 21:36 Dose: Not Given Potassium Chloride/Dextrose/Sod Cl (Potassium Chl 20 Meq In D5-Ns) 1,000 mls @ 80 mls/hr IV .[id number] [facility] Stop: 03/30/18 17:34 Last Admin: 03/29/18 21:29 Dose: 80 mls/hr Insulin Detemir (Levemir) 10 units SC [facility] Last Admin: 03/29/18 21:36 Dose: Not Given Insulin Human Lispro (Humalog) 5 units SC TID [facility] Last Admin: 03/24/18 09:12 Dose: Not Given Insulin Human Lispro (Humalog) 0 units SC ACCU-CHECK [facility]; Protocol Last Admin: 03/29/18 17:15 Dose: Not Given Levothyroxine Sodium (Synthroid) 100 mcg PO DAILY@0630 [facility] Last Admin: 03/29/18 16:05 Dose: Not Given Metformin HCl (Glucophage) 500 mg PO BID [facility] Last Admin: 03/24/18 09:07 Dose: 500 mg Torsemide (Demadex) 20 mg PO DAILY [facility] - Labs Labs: 03/29/18 04:30 03/29/18 04:30 PT 11.8 Seconds (9.8-13.1) 03/23/18 17:02 INR 1.0 03/23/18 17:02 APTT 29.2 Seconds (25.6-37.1) 03/23/18 17:02 - Head Exam Head Exam: ATRAUMATIC - Eye Exam Eye Exam: Normal appearance - ENT Exam ENT Exam: Mucous Membranes Dry - Respiratory Exam Respiratory Exam: NORMAL BREATHING PATTERN - Cardiovascular Exam Cardiovascular Exam: +S1, +S2 - GI/Abdominal Exam GI & Abdominal Exam: Normal Bowel Sounds - Extremities Exam Extremities Exam: Pedal Edema - Neurological Exam Neurological Exam: Altered - Psychiatric Exam Psychiatric exam: Flat Affect - Skin Skin Exam: Warm Assessment and Plan (1) Anemia Assessment & Plan: chronic disease mild CKD multiple myeloma Status: Resolved (2) Multiple myeloma Assessment & Plan: outpatient treatment Status: Chronic (3) Hypercalcemia Assessment & Plan: resolved Status: Resolved
[2018-03-30 06:00] LABS: HEMOGLOBIN 10.4 g/dL (12.0-16.0); MEAN CELL VOLUME 88.1 fl (81.0-99.0); MEAN CORPUSCULAR HEMOGLOBIN 29.1 pg (27.0-31.0); MEAN CORPUSCULAR HGB CONC 33.1 g/dL (33.0-37.0); RBC 3.58 Mil/uL (3.80-5.20)
[2018-03-30] MEDS: Levothyroxine 100 MCG TAB PO SCH (06:22)
[2018-03-30 06:24] LABS: ALB/GLOB RATIO 0.9 (1.0-2.1); ALBUMIN 2.8 g/dL (3.5-5.0); ALT/SGPT 29 U/L (9-52); AST/SGOT 32 U/L (14-36); BLOOD UREA NITROGEN 20 mg/dl (7-17); GFR NON-AFRICAN AMERICAN > 60
[2018-03-30] MEDS: Insulin Lispro (humaLOG) 100 Units/ml Inj SC SCH ×4 (07:30→23:00)
[2018-03-30] MEDS ORDERED: Potassium Phosphate 30 MMOLE in Sodium Chloride 0.9% 250 ML IV ONE (08:41)
--- NOTE | 2018-03-30 09:21 | CP.PCM.PN ---
Subjective - Date & Time of Evaluation Date of Evaluation: 03/30/18 Time of Evaluation: 08:00 - Subjective Subjective: Pt seen and examined this morning. States she is hungry. Complaints of mild colicky abdominal pain. Denies n/v, dysuria. Daughter at bedside. Objective - Vital Signs/Intake and Output Vital Signs (last 24 hours): Temp Pulse Resp BP Pulse Ox 97.0 F L 102 H 20 134/98 H 96 03/30/18 08:11 03/30/18 08:11 03/30/18 08:11 03/30/18 08:11 03/30/18 08:11 - Medications Medications: Current Medications Albuterol/Ipratropium (Duoneb 3 Mg/0.5 Mg (3 Ml) Ud) 3 ml INH RQ6 PRN PRN Reason: Shortness of Breath Last Admin: 03/28/18 13:29 Dose: 3 ml Aripiprazole (Abilify) 2 mg PO HS [facility] Last Admin: 03/29/18 21:36 Dose: Not Given Aspirin (Ecotrin) 81 mg PO DAILY [facility] Last Admin: 03/29/18 11:53 Dose: 81 mg Atorvastatin Calcium (Lipitor) 20 mg PO DAILY@2200 [facility] Last Admin: 03/27/18 22:10 Dose: 20 mg Benztropine Mesylate (Cogentin) 1 mg PO Q12 [facility] Last Admin: 03/29/18 20:27 Dose: Not Given Bortezomib (Velcade) 3.5 mg IVP TUTH [facility] Last Admin: 03/29/18 16:05 Dose: Not Given Buspirone HCl (Buspar) 15 mg PO Q12 [facility] Last Admin: 03/29/18 20:27 Dose: Not Given Calcitriol (Rocaltrol) 0.5 mcg PO Q12 [facility] Calcium Carbonate (Oscal) 1 mg PO BID [facility] Cholecalciferol (Vitamin D) intlu PO DAILY [facility] Clonazepam (Klonopin) 0.5 mg PO DAILY PRN PRN Reason: Anxiety Dextrose (Dextrose 50% Inj) 0 ml IV STAT PRN; Protocol PRN Reason: Hypoglycemia Protocol Dextrose (Glutose 15) 0 gm PO ONCE PRN; Protocol PRN Reason: Hypoglycemia Protocol Duloxetine HCl (Cymbalta) 60 mg PO DAILY [facility] Last Admin: 03/29/18 11:47 Dose: 60 mg Enalapril Maleate (Vasotec) 5 mg PO DAILY [facility] Enoxaparin Sodium (Lovenox) 40 mg SC DAILY [facility]; Protocol Last Admin: 03/29/18 11:55 Dose: 40 mg Escitalopram Oxalate (Lexapro) 10 mg PO DAILY [facility] Last Admin: 03/29/18 11:55 Dose: 10 mg Famotidine (Pepcid) 40 mg IVP DAILY [facility] Last Admin: 03/29/18 17:17 Dose: 40 mg Ferrous Sulfate (Feosol) 325 mg PO DAILY [facility] Last Admin: 03/25/18 08:45 Dose: 325 mg Gabapentin (Neurontin) 100 mg PO TID [facility] Last Admin: 03/29/18 17:18 Dose: Not Given Glucagon (Glucagen Diagnostic Kit) 0 mg IM STAT PRN; Protocol PRN Reason: Hypoglycemia Protocol Home Med (Riociguat [Adempas]) 2 mg PO TID [facility] Last Admin: 03/29/18 17:15 Dose: Not Given Hydrocortisone (Cortef) 10 mg PO [facility] Last Admin: 03/29/18 21:36 Dose: Not Given Potassium Chloride/Dextrose/Sod Cl (Potassium Chl 20 Meq In D5-Ns) 1,000 mls @ 80 mls/hr IV .[id number] [facility] Stop: 03/30/18 17:34 Last Admin: 03/29/18 21:29 Dose: 80 mls/hr Potassium Phosphate 30 mmole/ (Sodium Chloride) 260 mls @ 65 mls/hr IV ONCE ONE Stop: 03/30/18 12:40 Insulin Detemir (Levemir) 10 units SC [facility] Last Admin: 03/29/18 21:36 Dose: Not Given Insulin Human Lispro (Humalog) 5 units SC TID [facility] Last Admin: 03/24/18 09:12 Dose: Not Given Insulin Human Lispro (Humalog) 0 units SC ACCU-CHECK [facility]; Protocol Last Admin: 03/29/18 23:55 Dose: Not Given Levothyroxine Sodium (Synthroid) 100 mcg PO DAILY@0630 [facility] Last Admin: 03/30/18 06:22 Dose: Not Given Metformin HCl (Glucophage) 500 mg PO BID [facility] Last Admin: 03/24/18 09:07 Dose: 500 mg Torsemide (Demadex) 20 mg PO DAILY [facility] - Labs Labs: 03/30/18 04:35 01/23/19 04:35 PT 11.8 Seconds (9.8-13.1) 03/23/18 17:02 INR 1.0 03/23/18 17:02 APTT 29.2 Seconds (25.6-37.1) 03/23/18 17:02 - Constitutional Appears: No Acute Distress - Head Exam Head Exam: NORMAL INSPECTION - ENT Exam ENT Exam: Mucous Membranes Moist Additional comments: NG tube in place, brown/green liquid actively draining - Respiratory Exam Respiratory Exam: Clear to Ausculation Bilateral - Cardiovascular Exam Cardiovascular Exam: REGULAR RHYTHM - GI/Abdominal Exam GI & Abdominal Exam: Distended (mildly distended), Soft, Hypoactive Bowel Sounds. absent: Guarding, Rigid, Tenderness - Extremities Exam Extremities Exam: Pedal Edema - Neurological Exam Neurological Exam: Alert, Oriented x3. absent: Motor Sensory Deficit Neuro motor strength exam: Left Upper Extremity: 5, Right Upper Extremity: 5, Left Lower Extremity: 5, Right Lower Extremity: 5 Additional comments: Follows commands, occasionally loses focus - Psychiatric Exam Psychiatric exam: Normal Affect - Skin Skin Exam: Normal Color Assessment and Plan - Assessment and Plan (Free Text) Assessment: 72 yo F with a PMHx of multiple myeloma, DM, HTN, COPD, 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 Pt has had many metabolic derangements that are likely contributing to her AMS. Her electrolytes are now WNL. Pt has developed abdominal distension with air fluid levels seen in small bowels noted on abdomen pelvis ct, currently is NPO with NG tube in place. PLAN: >Altered Mental Status /Delirium --Pt's mental status has improved over the last few days, although not at baseline. Today she is alert and oriented with occasional difficulty concentrating and occasional visual hallucinations. Thought process is often tangential. --secondary to delirium, metabolic derangements have resolved. --Head CT negative for acute findings, repeat pending --Thought to be secondary to metabolic derangements ( hypercalcemia, hypomagnesemia, dehydration)--all resolved --Elevate head of bed to 45 deg, aspiration precautions. --ABG was unremarkable. --Neuro checks --neuro consult, likely metabolic encephalopathy, EEG pending report >Ileus --Abdominal distention likely secondary to metabolic derangements that are now corrected. -- Stool studies sent: fecal leukocytes, FOBT(neg), cdiff (negx2) --Her abdominal distention is likely secondary to ileus. Continue with NPO stat us due to ileus and altered mentation. --CT of Head/Chest/Abdomen/Pelvis: prominent fluid filled loops of bowel - ng tube inserted 03/28/18 x 2, pt pulled NG tube x 2 --S/P NG tube in place, C/W bowel decompression via NG tube and Rectal tube --serial abdominal exams- less distended today, will advance diet to liquids of bowel sounds are heard, c/w NG tube on intermittent suction --monitor closely --PT for early ambulation Metabolic Derangements: >Hypercalcemia on admission -- resolved --Possibly due to dehydration vs missed Multiple Myeloma treatment --Holding daily Torsemide 20mg daily --Continue to monitor >Hypocalcemia --Chronic, will restart Calcitriol, Ca Carbonate, and Vitamin D >Hypomagnesemia --chronic, improved --IV and PO mag discontinued --Discontinued PPI as this can cause hypoMG >Hypophosphatemia --phos: 1.1, repleted today --Continue to monitor >UTI -Ucx growing GNR, sensitivites pending -Will start on Ceftriaxone for empiric coverage -No systemic signs of infection (afebrile, no leukocytosis) >IDDM --Metformin held, Meal time Bolus held, put on low sliding scale and reduced basal insulin given pt's poor intake and low sugars --Accuchecks --Hypoglycemic protocol --ISS, low dose >Multiple Myeloma --Heme/Onc on board: Dr. Vilchis --Bortezomib on hold, will administer in outpatient setting >CHF/HTN --Echocardiogram on 08/25/17 showed LVEF 60-65%, grade I abnormal relaxation pattern. --Possibly diastolic dysfunction-CHF --Holding torsemide for now as per nephro; will monitor volume status >COPD/Pulm HTN --Resumed home meds >DVT Prophylaxis --Lovenox 40mg SC daily --SCDs Case d/w Dr. Neumann.
[2018-03-30] MEDS: Enoxaparin 40 mg Syringe SC SCH (09:34)
[2018-03-30] MEDS: RIOCIGUAT 2 MG PO SCH ×3 (09:37→17:10)
[2018-03-30] MEDS ORDERED: Potassium Phosphate 3 mmol/ml Inj IV ONE (09:50)
[2018-03-30] MEDS: Potassium Chl 20 mEq in D5-NS 1,000 ML IV SCH (10:55)
[2018-03-30] MEDS: Cholecalciferol 1,000 INTLU TAB PO SCH (13:40)
--- NOTE | 2018-03-30 14:00 | CP.PCM.PN ---
Subjective - Date & Time of Evaluation Date of Evaluation: 03/30/18 Time of Evaluation: 13:59 - Subjective Subjective: Neurology Follow-Up Note: Mrs. Perkins was evaluated this afternoon at bedside. Daughter, Mary Kate, also present at bedside. Pt states that she continues to feel good today and offers no complaints aside from being hungry. Per pt's daughter the pt's behavior is the same as yesterday. She is still confused but is able to maintain a conversation with me, answer most questions appropriately, and follow commands. She also still states that there is a little boy in her room that jumps on the magallon and ceiling. Pt denies h/a, dizziness, visual changes, chest pain, palpitations, sob, cough, abd pain, n/v/d. Objective - Vital Signs/Intake and Output Vital Signs (last 24 hours): Temp Pulse Resp BP Pulse Ox 99.1 F 98 H 20 122/62 98 03/30/18 12:23 03/30/18 12:23 03/30/18 12:23 03/30/18 12:23 03/30/18 12:23 - Medications Medications: Current Medications Albuterol/Ipratropium (Duoneb 3 Mg/0.5 Mg (3 Ml) Ud) 3 ml INH RQ6 PRN PRN Reason: Shortness of Breath Last Admin: 03/28/18 13:29 Dose: 3 ml Aripiprazole (Abilify) 2 mg PO HS [facility] Last Admin: 03/29/18 21:36 Dose: Not Given Aspirin (Ecotrin) 81 mg PO DAILY [facility] Last Admin: 03/30/18 09:32 Dose: 81 mg Atorvastatin Calcium (Lipitor) 20 mg PO DAILY@2200 [facility] Last Admin: 03/27/18 22:10 Dose: 20 mg Benztropine Mesylate (Cogentin) 1 mg PO Q12 [facility] Last Admin: 03/30/18 09:32 Dose: 1 mg Bortezomib (Velcade) 3.5 mg IVP TUTH [facility] Last Admin: 03/29/18 16:05 Dose: Not Given Buspirone HCl (Buspar) 15 mg PO Q12 [facility] Last Admin: 03/30/18 09:31 Dose: 15 mg Calcitriol (Rocaltrol) 0.5 mcg PO Q12 [facility] Calcium Carbonate (Oscal) 500 mg PO BID [facility] Last Admin: 03/30/18 13:39 Dose: 500 mg Cholecalciferol (Vitamin D) 1,000 intlu PO DAILY [facility] Last Admin: 03/30/18 13:40 Dose: 1,000 intlu Clonazepam (Klonopin) 0.5 mg PO DAILY PRN PRN Reason: Anxiety Dextrose (Dextrose 50% Inj) 0 ml IV STAT PRN; Protocol PRN Reason: Hypoglycemia Protocol Dextrose (Glutose 15) 0 gm PO ONCE PRN; Protocol PRN Reason: Hypoglycemia Protocol Duloxetine HCl (Cymbalta) 60 mg PO DAILY [facility] Last Admin: 03/30/18 09:32 Dose: 60 mg Enalapril Maleate (Vasotec) 5 mg PO DAILY [facility] Enoxaparin Sodium (Lovenox) 40 mg SC DAILY [facility]; Protocol Last Admin: 03/30/18 09:34 Dose: 40 mg Escitalopram Oxalate (Lexapro) 10 mg PO DAILY [facility] Last Admin: 03/30/18 09:33 Dose: 10 mg Famotidine (Pepcid) 40 mg IVP DAILY [facility] Last Admin: 03/30/18 09:35 Dose: 40 mg Ferrous Sulfate (Feosol) 325 mg PO DAILY [facility] Last Admin: 03/25/18 08:45 Dose: 325 mg Gabapentin (Neurontin) 100 mg PO TID [facility] Last Admin: 03/30/18 13:39 Dose: 100 mg Glucagon (Glucagen Diagnostic Kit) 0 mg IM STAT PRN; Protocol PRN Reason: Hypoglycemia Protocol Home Med (Riociguat [Adempas]) 2 mg PO TID [facility] Last Admin: 03/30/18 13:39 Dose: 2 mg Hydrocortisone (Cortef) 10 mg PO [facility] Last Admin: 03/29/18 21:36 Dose: Not Given Potassium Chloride/Dextrose/Sod Cl (Potassium Chl 20 Meq In D5-Ns) 1,000 mls @ 80 mls/hr IV .[id number] [facility] Stop: 03/30/18 17:34 Last Admin: 03/30/18 10:55 Dose: 80 mls/hr Ceftriaxone Sodium 1 gm/ (Sodium Chloride) 100 mls @ 100 mls/hr IVPB DAILY [facility]; Protocol Last Admin: 03/30/18 13:43 Dose: 100 mls/hr Insulin Detemir (Levemir) 10 units SC [facility] Last Admin: 03/29/18 21:36 Dose: Not Given Insulin Human Lispro (Humalog) 5 units SC TID [facility] Last Admin: 03/24/18 09:12 Dose: Not Given Insulin Human Lispro (Humalog) 0 units SC ACCU-CHECK [facility]; Protocol Last Admin: 03/30/18 12:45 Dose: Not Given Levothyroxine Sodium (Synthroid) 100 mcg PO DAILY@0630 [facility] Last Admin: 03/30/18 06:22 Dose: Not Given Metformin HCl (Glucophage) 500 mg PO BID [facility] Last Admin: 03/24/18 09:07 Dose: 500 mg Torsemide (Demadex) 20 mg PO DAILY [facility] - Labs Labs: 03/30/18 04:35 03/30/18 04:35 PT 11.8 Seconds (9.8-13.1) 03/23/18 17:02 INR 1.0 03/23/18 17:02 APTT 29.2 Seconds (25.6-37.1) 03/23/18 17:02 - Constitutional Appears: Well, Non-toxic, No Acute Distress - Head Exam Head Exam: ATRAUMATIC, NORMAL INSPECTION, NORMOCEPHALIC - Eye Exam Eye Exam: EOMI, Normal appearance Pupil Exam: NORMAL ACCOMODATION, PERRL - ENT Exam ENT Exam: Mucous Membranes Moist - Neck Exam Neck Exam: Full ROM, Normal Inspection - Respiratory Exam Respiratory Exam: NORMAL BREATHING PATTERN - GI/Abdominal Exam Additional comments: ngt in place - Extremities Exam Extremities Exam: Full ROM. absent: Calf Tenderness, Pedal Edema - Back Exam Back Exam: Full ROM, NORMAL INSPECTION - Neurological Exam Neurological Exam: Altered (confused), Awake, CN II-XII Intact, Oriented x3, Reflexes Normal Neuro motor strength exam: Left Upper Extremity: 4, Right Upper Extremity: 4, Left Lower Extremity: 4, Right Lower Extremity: 4 Additional comments: Awake, alert, oriented to place and person; disoriented to time (cannot recall the year) Confused but pleasant, answers questions, able to hold a conversation with me, and able to follow commands No echolalia, no aphasia Able to move all extremities independently without weakness Sensation intact Gait not assessed. - Psychiatric Exam Psychiatric exam: absent: Normal Affect (confused; visual hallucinations same as yesterday), Normal Mood - Skin Skin Exam: Normal Color Assessment and Plan (1) Acute encephalopathy Assessment & Plan: Imaging reviewed: -EEG (03/28/18): This is an abnormal EEG record that demonstrate the presence of a mild to moderate non specific diffuse disturbance of cortical activity, this is in keeping with a diffuse wilson matter dysfunction. These findings do not support a specific etiology. No seizures/events captured. -CT Head (03/28/18): No acute intracranial pathology. Age-related changes. No significant interval change. -CT Head (03/23/18): No evidence of acute intracranial hemorrhage mass effect or midline shift. No significant interval changes noted since the prior exam. Mrs. Perkins's behavior and mental status is the same yesterday. -We still recommend a psych consult as the pt is having visual hallucinations. She sees Chase Leonard for psych in the office. -No need for MRI Brain at this time. -Continue current treatment for other medical issues and recommendations by other consults. -Notify neuro team of any acute changes in pt's condition. -Discussed plan with pt and daughter at length. Case discussed with Dr. Marrero Status: Acute
[2018-03-30] MEDS: Insulin Detemir 100 Units/ml Inj SC SCH (22:30)
--- NOTE | 2018-03-30 22:37 | CP.PCM.PN ---
Subjective - Date & Time of Evaluation Date of Evaluation: 03/30/18 Time of Evaluation: 13:00 - Subjective Subjective: Patient again NPO, awaiting swallow assessment again; Objective - Vital Signs/Intake and Output Vital Signs (last 24 hours): Temp Pulse Resp BP Pulse Ox 99.1 F 104 H 18 113/67 100 03/30/18 19:58 03/30/18 19:58 03/30/18 19:58 03/30/18 19:58 03/30/18 19:58 Intake and Output: 03/30/18 03/31/18 18:59 06:59 Intake Total 1160 Output Total 1075 Balance 85 - Medications Medications: Current Medications Albuterol/Ipratropium (Duoneb 3 Mg/0.5 Mg (3 Ml) Ud) 3 ml INH RQ6 PRN PRN Reason: Shortness of Breath Last Admin: 03/28/18 13:29 Dose: 3 ml Aripiprazole (Abilify) 2 mg PO HS [facility] Last Admin: 03/29/18 21:36 Dose: Not Given Aspirin (Ecotrin) 81 mg PO DAILY [facility] Last Admin: 03/30/18 09:32 Dose: 81 mg Atorvastatin Calcium (Lipitor) 20 mg PO DAILY@2200 [facility] Last Admin: 03/27/18 22:10 Dose: 20 mg Benztropine Mesylate (Cogentin) 1 mg PO Q12 [facility] Last Admin: 03/30/18 09:32 Dose: 1 mg Bortezomib (Velcade) 3.5 mg IVP TUTH [facility] Last Admin: 03/29/18 16:05 Dose: Not Given Buspirone HCl (Buspar) 15 mg PO Q12 [facility] Last Admin: 03/30/18 09:31 Dose: 15 mg Calcitriol (Rocaltrol) 0.5 mcg PO Q12 [facility] Calcium Carbonate (Oscal) 500 mg PO BID [facility] Last Admin: 03/30/18 17:09 Dose: 500 mg Cholecalciferol (Vitamin D) 1,000 intlu PO DAILY [facility] Last Admin: 03/30/18 13:40 Dose: 1,000 intlu Clonazepam (Klonopin) 0.5 mg PO DAILY PRN PRN Reason: Anxiety Dextrose (Dextrose 50% Inj) 0 ml IV STAT PRN; Protocol PRN Reason: Hypoglycemia Protocol Dextrose (Glutose 15) 0 gm PO ONCE PRN; Protocol PRN Reason: Hypoglycemia Protocol Duloxetine HCl (Cymbalta) 60 mg PO DAILY [facility] Last Admin: 03/30/18 09:32 Dose: 60 mg Enalapril Maleate (Vasotec) 5 mg PO DAILY [facility] Enoxaparin Sodium (Lovenox) 40 mg SC DAILY [facility]; Protocol Last Admin: 03/30/18 09:34 Dose: 40 mg Escitalopram Oxalate (Lexapro) 10 mg PO DAILY [facility] Last Admin: 03/30/18 09:33 Dose: 10 mg Famotidine (Pepcid) 40 mg IVP DAILY [facility] Last Admin: 03/30/18 09:35 Dose: 40 mg Ferrous Sulfate (Feosol) 325 mg PO DAILY [facility] Last Admin: 03/25/18 08:45 Dose: 325 mg Gabapentin (Neurontin) 100 mg PO TID [facility] Last Admin: 03/30/18 17:09 Dose: 100 mg Glucagon (Glucagen Diagnostic Kit) 0 mg IM STAT PRN; Protocol PRN Reason: Hypoglycemia Protocol Home Med (Riociguat [Adempas]) 2 mg PO TID [facility] Last Admin: 03/30/18 17:10 Dose: 2 mg Hydrocortisone (Cortef) 10 mg PO [facility] Last Admin: 03/29/18 21:36 Dose: Not Given Ceftriaxone Sodium 1 gm/ (Sodium Chloride) 100 mls @ 100 mls/hr IVPB DAILY [facility]; Protocol Last Admin: 03/30/18 13:43 Dose: 100 mls/hr Dextrose/Sodium Chloride (Dextrose 5%/0.9% Ns 1000 Ml) 1,000 mls @ 80 mls/hr IV .[id number] [facility] Stop: 03/31/18 17:55 Insulin Detemir (Levemir) 10 units SC [facility] Last Admin: 03/29/18 21:36 Dose: Not Given Insulin Human Lispro (Humalog) 5 units SC TID [facility] Last Admin: 03/24/18 09:12 Dose: Not Given Insulin Human Lispro (Humalog) 0 units SC ACCU-CHECK [facility]; Protocol Last Admin: 03/30/18 17:08 Dose: Not Given Levothyroxine Sodium (Synthroid) 100 mcg PO DAILY@0630 [facility] Last Admin: 03/30/18 06:22 Dose: Not Given Metformin HCl (Glucophage) 500 mg PO BID [facility] Last Admin: 03/24/18 09:07 Dose: 500 mg Torsemide (Demadex) 20 mg PO DAILY [facility] - Labs Labs: 03/30/18 04:35 03/30/18 04:35 PT 11.8 Seconds (9.8-13.1) 03/23/18 17:02 INR 1.0 03/23/18 17:02 APTT 29.2 Seconds (25.6-37.1) 03/23/18 17:02 - Constitutional Appears: Non-toxic, No Acute Distress - Eye Exam Eye Exam: Normal appearance - Respiratory Exam Respiratory Exam: absent: Respiratory Distress - Cardiovascular Exam Cardiovascular Exam: RRR, +S1, +S2 - GI/Abdominal Exam GI & Abdominal Exam: Soft. absent: Distended, Tenderness - Extremities Exam Additional comments: no significant leg edema; - Neurological Exam Neurological Exam: Alert, Awake - Psychiatric Exam Psychiatric exam: Normal Mood. absent: Agitated - Skin Skin Exam: Warm. absent: Cyanosis Assessment and Plan (1) Electrolyte abnormality Assessment & Plan: Now with marked hypophosphatemia in the setting of lack of PO intake; low serum calcium level but corrected for serum albumin is still in normal range; patient presented with severe hypercalcemia in the setting of being on very high dose of calcitriol (0.5 mg q12h); -Ok to give cholecalciferol and Ca supplementation but should hold calcitriol for now and monitor; -Giving IV potassium phosphate; Status: Acute (2) Hypercalcemia Status: Resolved (3) Hypomagnesemia Status: Resolved (4) CHF (congestive heart failure) Status: Chronic (5) Acute kidney injury Status: Acute
[2018-03-30] MEDS: Dextrose 5%/0.9% NS 1,000 ML IV SCH (23:45)
[2018-03-31 06:05] LABS: HEMOGLOBIN 9.9 g/dL (12.0-16.0); MEAN CELL VOLUME 88.2 fl (81.0-99.0); MEAN CORPUSCULAR HEMOGLOBIN 28.1 pg (27.0-31.0); MEAN CORPUSCULAR HGB CONC 31.9 g/dL (33.0-37.0); RBC 3.51 Mil/uL (3.80-5.20); RED CELL DISTRIBUTION WIDTH 18.5 % (11.5-14.5); WHITE BLOOD COUNT 5.5 K/uL (4.8-10.8)
[2018-03-31 06:28] LABS: BLOOD UREA NITROGEN 13 mg/dl (7-17); CALCIUM 7.3 mg/dL (8.4-10.2); GFR NON-AFRICAN AMERICAN > 60
--- NOTE | 2018-03-31 08:35 | RAD ---
Date of service: 03/30/2018 HISTORY: NGT placement-right position evaluation COMPARISON: Abdomen KUB 03/29/2018. FINDINGS: BOWEL: Nasogastric tube is identified placed with tip terminating in the right upper quadrant abdomen. Inferior vena cava filter placement reiterated. Central small bowel loop dilatation is stable and is does not appear to dramatically increased in the interval. Paucity of bowel gas is again seen within large bowel in the periphery. Limited vascular calcifications are identified in the abdomen and pelvis otherwise. No gross free intra peritoneal gas collection evident. BONES: Limited level scoliosis lumbar spine with advanced degenerative disease inferior lumbar spine. No acute fracture appreciated. OTHER FINDINGS: None. IMPRESSION: No significant interval change in central small bowel dilatation in the abdomen with NG tube identified in position. Paucity of gas is again noted in expected large-bowel distribution. No gross free intra peritoneal gas collection. Continued clinical and radiographic monitor advised.
[2018-03-31] MEDS: Insulin Lispro (humaLOG) 100 Units/ml Inj SC SCH ×4 (08:55→23:01)
[2018-03-31] MEDS: Enoxaparin 40 mg Syringe SC SCH (08:58)
[2018-03-31] MEDS: RIOCIGUAT 2 MG PO SCH ×3 (09:03→17:55)
[2018-03-31] MEDS: Cholecalciferol 1,000 INTLU TAB PO SCH (09:05)
[2018-03-31] MEDS ORDERED: Magnesium Sulfate 2 gm/50 ml 2 GM/50 ML BAG IVPB ONE (09:15)
--- NOTE | 2018-03-31 10:26 | CP.PCM.CON ---
History of Present Illness - History of Present Illness History of Present Illness: Infectious Disease Consultation Note- asked to see this patient at the request of family practice team for + urine cx. HPI- History obtained from the medical chart and patient's daughter who is at her bedside. Claudia is a 72 year old female with PMH of DM II, HTN, COPD, pulmonary HTN, h/o PE and Multiple Myeloma with lytic bone lesions who was admitted on 03/23/2018 for AMS and was found to be hypercalcemic as per her daughter pt. also has been having some visual hallucinations but she states she recently lost her grandson and so she is not sure if some of it is contributed to that. Her neurological work up so far is negative. She has been seen by neurologist since hospitalization here, she also has been having loose stools and has NGT in place as well. no urinary frequency and no complaints of abdominal or pelvic pain and no dysurea. pt. herself can answer some questions but seems to get slightly confuse at times. She denies any fever or chills, denies any abd. pain, denies any pain with urination, denies any chest pain,henrry any cough or sob. Review of Systems - Review of Systems Review of Systems: ROS- as stated in HPI Past Patient History - Infectious Disease Hx of Infectious Diseases: None - Tetanus Immunizations Tetanus Immunization: Unknown - Past Medical History & Family History Past Medical History?: Yes - Past Social History Smoking Status: Never Smoked - CARDIAC Hx Cardiac Disorders: Yes Hx Congestive Heart Failure: Yes Hx Hypercholesterolemia: Yes Hx Hypertension: Yes - PULMONARY Hx Chronic Obstructive Pulmonary Disease (COPD): Yes - NEUROLOGICAL Hx Migraine: Yes Hx Parkinson's Disease: Yes - HEENT Hx HEENT Problems: No - RENAL Hx Chronic Kidney Disease: No - ENDOCRINE/METABOLIC Hx Diabetes Mellitus Type 2: Yes Hx Hypothyroidism: Yes - HEMATOLOGICAL/ONCOLOGICAL Hx Anemia: Yes - INTEGUMENTARY Hx Dermatological Problems: No - MUSCULOSKELETAL/RHEUMATOLOGICAL Hx Arthritis: Yes Hx Rheumatoid Arthritis: Yes - GASTROINTESTINAL Hx Gastrointestinal Disorders: No - GENITOURINARY/GYNECOLOGICAL Hx Genitourinary Disorders: Yes Hx Incontinence: Yes - PSYCHIATRIC Hx Anxiety: Yes Hx Depression: Yes - SURGICAL HISTORY Hx Appendectomy: Yes Hx Cholecystectomy: Yes Hx Tonsillectomy: Yes - ANESTHESIA Hx Anesthesia: Yes Hx Anesthesia Reactions: Yes (Resp. Distress) Hx Malignant Hyperthermia: No Meds Allergies/Adverse Reactions: Allergies Allergy/AdvReac Type Severity Reaction Status Date / Time codeine AdvReac syncope, Verified 03/10/18 12:43 diaphoresis - Medications Medications: Current Medications Albuterol/Ipratropium (Duoneb 3 Mg/0.5 Mg (3 Ml) Ud) 3 ml INH RQ6 PRN PRN Reason: Shortness of Breath Last Admin: 03/28/18 13:29 Dose: 3 ml Aripiprazole (Abilify) 2 mg PO HS [facility] Last Admin: 03/30/18 23:49 Dose: 2 mg Aspirin (Ecotrin) 81 mg PO DAILY [facility] Last Admin: 03/31/18 08:55 Dose: 81 mg Atorvastatin Calcium (Lipitor) 20 mg PO DAILY@2200 [facility] Last Admin: 03/27/18 22:10 Dose: 20 mg Benztropine Mesylate (Cogentin) 1 mg PO Q12 [facility] Last Admin: 03/31/18 08:54 Dose: 1 mg Bortezomib (Velcade) 3.5 mg IVP TUTH [facility] Last Admin: 03/29/18 16:05 Dose: Not Given Buspirone HCl (Buspar) 15 mg PO Q12 [facility] Last Admin: 03/31/18 08:54 Dose: 15 mg Calcitriol (Rocaltrol) 0.25 mcg PO DAILY [facility] Calcium Carbonate (Oscal) 500 mg PO BID [facility] Last Admin: 03/31/18 09:00 Dose: 500 mg Cholecalciferol (Vitamin D) 1,000 intlu PO DAILY [facility] Last Admin: 03/31/18 09:05 Dose: 1,000 intlu Clonazepam (Klonopin) 0.5 mg PO DAILY PRN PRN Reason: Anxiety Dextrose (Dextrose 50% Inj) 0 ml IV STAT PRN; Protocol PRN Reason: Hypoglycemia Protocol Dextrose (Glutose 15) 0 gm PO ONCE PRN; Protocol PRN Reason: Hypoglycemia Protocol Duloxetine HCl (Cymbalta) 60 mg PO DAILY [facility] Last Admin: 03/31/18 08:55 Dose: 60 mg Enalapril Maleate (Vasotec) 5 mg PO DAILY [facility] Enoxaparin Sodium (Lovenox) 40 mg SC DAILY [facility]; Protocol Last Admin: 03/31/18 08:58 Dose: 40 mg Escitalopram Oxalate (Lexapro) 10 mg PO DAILY [facility] Last Admin: 03/31/18 08:56 Dose: 10 mg Famotidine (Pepcid) 40 mg IVP DAILY [facility] Last Admin: 03/31/18 09:02 Dose: 40 mg Ferrous Sulfate (Feosol) 325 mg PO DAILY [facility] Last Admin: 03/25/18 08:45 Dose: 325 mg Gabapentin (Neurontin) 100 mg PO TID [facility] Last Admin: 03/31/18 09:00 Dose: 100 mg Glucagon (Glucagen Diagnostic Kit) 0 mg IM STAT PRN; Protocol PRN Reason: Hypoglycemia Protocol Home Med (Riociguat [Adempas]) 2 mg PO TID [facility] Last Admin: 03/31/18 09:03 Dose: 2 mg Hydrocortisone (Cortef) 10 mg PO [facility] Last Admin: 03/30/18 23:49 Dose: 10 mg Dextrose/Sodium Chloride (Dextrose 5%/0.9% Ns 1000 Ml) 1,000 mls @ 80 mls/hr IV .[id number] [facility] Stop: 03/31/18 17:55 Last Admin: 03/30/18 23:45 Dose: 80 mls/hr Magnesium Sulfate (Magnesium Sulfate 2 Gm/50 Ml Water) 2 gm in 50 mls @ 25 mls/hr IVPB ONCE ONE Stop: 03/31/18 11:14 Meropenem 1 gm/ Sodium (Chloride) 100 mls @ 100 mls/hr IVPB ONCE ONE; Protocol Stop: 03/31/18 11:29 Insulin Detemir (Levemir) 10 units SC [facility] Last Admin: 03/30/18 22:30 Dose: 10 units Insulin Human Lispro (Humalog) 5 units SC TID [facility] Last Admin: 03/24/18 09:12 Dose: Not Given Insulin Human Lispro (Humalog) 0 units SC ACCU-CHECK [facility]; Protocol Last Admin: 03/31/18 08:55 Dose: Not Given Levothyroxine Sodium (Synthroid) 100 mcg PO DAILY@0630 [facility] Last Admin: 03/30/18 06:22 Dose: Not Given Magnesium Oxide (Mag-Ox) 400 mg PO BID [facility] Metformin HCl (Glucophage) 500 mg PO BID [facility] Last Admin: 03/24/18 09:07 Dose: 500 mg Torsemide (Demadex) 20 mg PO DAILY [facility] Physical Exam - Constitutional Appears: No Acute Distress - Head Exam Head Exam: ATRAUMATIC - Eye Exam Eye Exam: EOMI - ENT Exam ENT Exam: Normal Oropharynx Additional comments: has NGT in place draining yellow fluid - Neck Exam Neck exam: Positive for: Full Rom - Respiratory Exam Respiratory Exam: NORMAL BREATHING PATTERN Additional comments: good breath sounds b/l no wheezing - Cardiovascular Exam Cardiovascular Exam: RRR, +S1, +S2 - GI/Abdominal Exam GI & Abdominal Exam: Normal Bowel Sounds, Soft Additional comments: NT, ND - Extremities Exam Extremities exam: Positive for: normal inspection - Neurological Exam Neurological exam: Alert, Oriented x3 - Additional Findings Additional findings: has rectal tube in place with semi-liquid stool Results - Vital Signs Recent Vital Signs: Last Vital Signs Temp 98.0 F 03/31/18 08:41 Pulse 94 H 03/31/18 08:41 Resp 20 03/31/18 08:41 BP 114/58 L 03/31/18 08:41 Pulse Ox 99 03/31/18 08:41 - Labs Result Diagrams: 03/31/18 05:15 03/31/18 05:15 Labs: Laboratory Results - last 24 hr 03/30/18 03/30/18 03/30/18 11:12 16:21 18:38 WBC RBC Hgb Hct MCV MCH MCHC RDW Plt Count Sodium Potassium Chloride Carbon Dioxide Anion Gap BUN Creatinine Est GFR ( Amer) Est GFR (Non-Af Amer) POC Glucose (mg/dL) 89 88 Random Glucose Calcium Phosphorus Magnesium Albumin Ur Random Sodium 171 03/30/18 03/31/18 03/31/18 23:11 05:15 05:15 WBC 5.5 RBC 3.51 L Hgb 9.9 L Hct 31.0 L MCV 88.2 MCH 28.1 MCHC 31.9 L RDW 18.5 H Plt Count 171 Sodium 145 Potassium 4.3 Chloride 118 H Carbon Dioxide 24 Anion Gap 7 L BUN 13 Creatinine 0.8 Est GFR ( Amer) > 60 Est GFR (Non-Af Amer) > 60 POC Glucose (mg/dL) 130 H Random Glucose 108 H Calcium 7.3 L Phosphorus 2.3 L Magnesium 1.4 L Albumin Ur Random Sodium 03/31/18 03/31/18 05:36 08:50 WBC RBC Hgb Hct MCV MCH MCHC RDW Plt Count Sodium Potassium Chloride Carbon Dioxide Anion Gap BUN Creatinine Est GFR ( Amer) Est GFR (Non-Af Amer) POC Glucose (mg/dL) 105 Random Glucose Calcium Phosphorus Magnesium Albumin 2.6 L Ur Random Sodium Laboratory Results - last 72 hr 03/24/18 03/27/18 03/28/18 04:45 19:34 11:30 WBC RBC Hgb Hct MCV MCH MCHC RDW Plt Count pCO2 pO2 HCO3 ABG pH ABG Total CO2 ABG O2 Saturation ABG Base Excess [place] Test ABG Potassium A-a O2 Difference Sodium Chloride Glucose Lactate FiO2 Potassium Carbon Dioxide Anion Gap BUN Creatinine Est GFR ( Amer) Est GFR (Non-Af Amer) POC Glucose (mg/dL) Random Glucose Calcium Phosphorus Magnesium Total Bilirubin AST ALT Alkaline Phosphatase Total Protein Albumin Globulin Albumin/Globulin Ratio Procalcitonin 0.61 H PTH Related Protein 19 Arterial Blood Potassium Ur Random Sodium Stool Leukocytes, Qual Negative 03/28/18 03/28/18 03/28/18 13:07 16:03 21:29 WBC RBC Hgb Hct MCV MCH MCHC RDW Plt Count pCO2 37 pO2 135 H HCO3 23.8 ABG pH 7.40 ABG Total CO2 24.0 ABG O2 Saturation 97.9 ABG Base Excess -1.5 Lake Test Yes ABG Potassium 3.6 A-a O2 Difference 18.0 Sodium 138.0 Chloride 112.0 H Glucose 194 H Lactate 0.9 FiO2 28.0 Potassium Carbon Dioxide Anion Gap BUN Creatinine Est GFR ( Amer) Est GFR (Non-Af Amer) POC Glucose (mg/dL) 183 H 175 H Random Glucose Calcium Phosphorus Magnesium Total Bilirubin AST ALT Alkaline Phosphatase Total Protein Albumin Globulin Albumin/Globulin Ratio Procalcitonin PTH Related Protein Arterial Blood Potassium 3.6 Ur Random Sodium Stool Leukocytes, Qual 03/29/18 03/29/18 03/29/18 04:30 04:30 05:27 WBC 4.7 L RBC 3.50 L Hgb 10.2 L Hct 30.9 L MCV 88.3 MCH 29.2 MCHC 33.1 RDW 18.0 H Plt Count 172 pCO2 pO2 HCO3 ABG pH ABG Total CO2 ABG O2 Saturation ABG Base Excess [place] Test ABG Potassium A-a O2 Difference Sodium 142 Chloride 115 H Glucose Lactate FiO2 Potassium 4.4 Carbon Dioxide 23 Anion Gap 8 L BUN 32 H Creatinine 1.0 Est GFR ( Amer) > 60 Est GFR (Non-Af Amer) 55 POC Glucose (mg/dL) 134 H Random Glucose 153 H Calcium 7.9 L Phosphorus 2.0 L Magnesium 1.9 Total Bilirubin 0.4 AST 20 ALT 20 Alkaline Phosphatase 70 Total Protein 6.2 L Albumin 2.9 L Globulin 3.3 Albumin/Globulin Ratio 0.9 L Procalcitonin PTH Related Protein Arterial Blood Potassium Ur Random Sodium Stool Leukocytes, Qual 03/29/18 03/29/18 03/29/18 10:49 15:46 21:24 WBC RBC Hgb Hct MCV MCH MCHC RDW Plt Count pCO2 pO2 HCO3 ABG pH ABG Total CO2 ABG O2 Saturation ABG Base Excess [place] Test ABG Potassium A-a O2 Difference Sodium Chloride Glucose Lactate FiO2 Potassium Carbon Dioxide Anion Gap BUN Creatinine Est GFR ( Amer) Est GFR (Non-Af Amer) POC Glucose (mg/dL) 116 H 104 70 Random Glucose Calcium Phosphorus Magnesium Total Bilirubin AST ALT Alkaline Phosphatase Total Protein Albumin Globulin Albumin/Globulin Ratio Procalcitonin PTH Related Protein Arterial Blood Potassium Ur Random Sodium Stool Leukocytes, Qual 03/29/18 03/29/18 03/30/18 22:26 22:26 04:35 WBC 4.0 L RBC 3.58 L Hgb 10.4 L Hct 31.6 L MCV 88.1 MCH 29.1 MCHC 33.1 RDW 18.0 H Plt Count 178 pCO2 pO2 HCO3 ABG pH ABG Total CO2 ABG O2 Saturation ABG Base Excess [place] Test ABG Potassium A-a O2 Difference Sodium Chloride Glucose Lactate FiO2 Potassium Carbon Dioxide Anion Gap BUN Creatinine Est GFR ( Amer) Est GFR (Non-Af Amer) POC Glucose (mg/dL) 87 87 Random Glucose Calcium Phosphorus Magnesium Total Bilirubin AST ALT Alkaline Phosphatase Total Protein Albumin Globulin Albumin/Globulin Ratio Procalcitonin PTH Related Protein Arterial Blood Potassium Ur Random Sodium Stool Leukocytes, Qual 03/30/18 03/30/18 03/30/18 04:35 05:30 11:12 WBC RBC Hgb Hct MCV MCH MCHC RDW Plt Count pCO2 pO2 HCO3 ABG pH ABG Total CO2 ABG O2 Saturation ABG Base Excess [place] Test ABG Potassium A-a O2 Difference Sodium 147 Chloride 121 H Glucose Lactate FiO2 Potassium 4.3 Carbon Dioxide 22 Anion Gap 8 L BUN 20 H Creatinine 0.9 Est GFR ( Amer) > 60 Est GFR (Non-Af Amer) > 60 POC Glucose (mg/dL) 96 89 Random Glucose 117 H Calcium 8.0 L Phosphorus 1.1 L Magnesium 1.8 Total Bilirubin 0.4 AST 32 ALT 29 Alkaline Phosphatase 92 Total Protein 6.1 L Albumin 2.8 L Globulin 3.3 Albumin/Globulin Ratio 0.9 L Procalcitonin PTH Related Protein Arterial Blood Potassium Ur Random Sodium Stool Leukocytes, Qual 03/30/18 03/30/18 03/30/18 16:21 18:38 23:11 WBC RBC Hgb Hct MCV MCH MCHC RDW Plt Count pCO2 pO2 HCO3 ABG pH ABG Total CO2 ABG O2 Saturation ABG Base Excess [place] Test ABG Potassium A-a O2 Difference Sodium Chloride Glucose Lactate FiO2 Potassium Carbon Dioxide Anion Gap BUN Creatinine Est GFR ( Amer) Est GFR (Non-Af Amer) POC Glucose (mg/dL) 88 130 H Random Glucose Calcium Phosphorus Magnesium Total Bilirubin AST ALT Alkaline Phosphatase Total Protein Albumin Globulin Albumin/Globulin Ratio Procalcitonin PTH Related Protein Arterial Blood Potassium Ur Random Sodium 171 Stool Leukocytes, Qual 03/31/18 03/31/18 03/31/18 05:15 05:15 05:36 WBC 5.5 RBC 3.51 L Hgb 9.9 L Hct 31.0 L MCV 88.2 MCH 28.1 MCHC 31.9 L RDW 18.5 H Plt Count 171 pCO2 pO2 HCO3 ABG pH ABG Total CO2 ABG O2 Saturation ABG Base Excess [place] Test ABG Potassium A-a O2 Difference Sodium 145 Chloride 118 H Glucose Lactate FiO2 Potassium 4.3 Carbon Dioxide 24 Anion Gap 7 L BUN 13 Creatinine 0.8 Est GFR ( Amer) > 60 Est GFR (Non-Af Amer) > 60 POC Glucose (mg/dL) 105 Random Glucose 108 H Calcium 7.3 L Phosphorus 2.3 L Magnesium 1.4 L Total Bilirubin AST ALT Alkaline Phosphatase Total Protein Albumin Globulin Albumin/Globulin Ratio Procalcitonin PTH Related Protein Arterial Blood Potassium Ur Random Sodium Stool Leukocytes, Qual 03/31/18 03/31/18 08:50 11:02 WBC RBC Hgb Hct MCV MCH MCHC RDW Plt Count pCO2 pO2 HCO3 ABG pH ABG Total CO2 ABG O2 Saturation ABG Base Excess [place] Test ABG Potassium A-a O2 Difference Sodium Chloride Glucose Lactate FiO2 Potassium Carbon Dioxide Anion Gap BUN Creatinine Est GFR ( Amer) Est GFR (Non-Af Amer) POC Glucose (mg/dL) 79 Random Glucose Calcium Phosphorus Magnesium Total Bilirubin AST ALT Alkaline Phosphatase Total Protein Albumin 2.6 L Globulin Albumin/Globulin Ratio Procalcitonin PTH Related Protein Arterial Blood Potassium Ur Random Sodium Stool Leukocytes, Qual Microbiology 03/28/18 11:30 Blood Blood Culture - Preliminary NO GROWTH AFTER 3 DAYS 03/28/18 11:30 Blood Blood Culture - Preliminary NO GROWTH AFTER 3 DAYS 03/28/18 17:36 Urine,Catheterized Urine Culture - Final Escherichia Coli Accession No. : [id number] Patient Name / ID : ИВАН COTTRELL / [id number] Exam Date : 03/30/2018 20:47:34 ( Approved ) Study Comment : Sex / Age : F / 72Y Creator : Jareth Gusman MD Dictator : Jareth Gusman MD Epitaxial Reactor Technician : Local [employer] Driver : Jareth Gusman MD Approver2 : Report Date : 03/31/2018 08:29:44 My Comment : Date of service: 03/30/2018 HISTORY: NGT placement-right position evaluation COMPARISON: Abdomen KUB 03/29/2018. FINDINGS: BOWEL: Nasogastric tube is identified placed with tip terminating in the right upper quadrant abdomen. Inferior vena cava filter placement reiterated. Central small bowel loop dilatation is stable and is does not appear to dramatically increased in the interval. Paucity of bowel gas is again seen within large bowel in the periphery. Limited vascular calcifications are identified in the abdomen and pelvis otherwise. No gross free intra peritoneal gas collection evident. BONES: Limited level scoliosis lumbar spine with advanced degenerative disease inferior lumbar spine. No acute fracture appreciated. OTHER FINDINGS: None. IMPRESSION: No significant interval change in central small bowel dilatation in the abdomen with NG tube identified in position. Paucity of gas is again noted in expected large-bowel distribution. No gross free intra peritoneal gas collection. Continued clinical and radiographic monitor advised. Accession No. : [id number] Patient Name / ID : ИВАН ValeraVONNE / [id number] Exam Date : 03/29/2018 14:00:26 ( Approved ) Study Comment : Sex / Age : Madeline RonnieY Creator : Abner Levy MD Dictator : Abner Levy MD Epitaxial Reactor Technician : Local Delivery Truck Driver : Abner Levy MD Approver2 : Report Date : 03/29/2018 14:30:20 My Comment : Date of service: 03/29/2018 PROCEDURE: CHEST RADIOGRAPH, 1 VIEW HISTORY: ng tube placement COMPARISON: Chest radiograph dated 03/28/2018. FINDINGS: LUNGS: Low lung volumes. Bibasilar atelectasis. PLEURA: No pneumothorax or pleural fluid seen. CARDIOVASCULAR: Aortic atherosclerotic calcifications. Cardiomediastinal silhouette stably enlarged. OSSEOUS STRUCTURES: Unchanged. VISUALIZED UPPER ABDOMEN: Normal. OTHER FINDINGS: Enteric tube with tip in the stomach IMPRESSION: Enteric tube in satisfactory position. Bibasilar atelectasis. Accession No. : [id number] Patient Name / ID : OATES SIMBA / [id number] Exam Date : 03/28/2018 11:36:20 ( Approved ) Study Comment : Sex / Age : Madeline 8 Creator : gris vela Dictator : Abner Levy MD Epitaxial Reactor Technician : Local Delivery Truck Driver : Abner Levy MD Approver2 : Report Date : 03/28/2018 11:50:03 My Comment : Date of service: 03/28/2018 PROCEDURE: CT HEAD WITHOUT CONTRAST. HISTORY: AMS COMPARISON: CT head dated 03/23/2018 TECHNIQUE: Axial computed tomography images were obtained through the head/brain without intravenous contrast. Radiation dose: Total exam DLP = 803.46 mGy-cm. This CT exam was performed using one or more of the following dose reduction techniques: Automated exposure control, adjustment of the mA and/or kV according to patient size, and/or use of iterative reconstruction technique. FINDINGS: HEMORRHAGE: No intracranial hemorrhage. BRAIN: No mass effect or edema. Atrophy. Chronic microvascular ischemic changes. VENTRICLES: Unremarkable. No hydrocephalus. CALVARIUM: Unremarkable. PARANASAL SINUSES: Right sphenoid sinus disease. MASTOID AIR CELLS: Unremarkable as visualized. No inflammatory changes. OTHER FINDINGS: None. IMPRESSION: No acute intracranial pathology. Age-related changes. No significant interval change. Accession No. : [id number] Patient Name / ID : ИВАН COTTRELL / [id number] Exam Date : 03/28/2018 11:39:23 ( Approved ) Study Comment : Sex / Age : F / 72Y Creator : gris vela Dictator : Abner Levy MD Epitaxial Reactor Technician : Local Delivery Truck Driver : Abner Levy MD Approver2 : Report Date : 03/28/2018 12:04:19 My Comment : Date of service: 03/28/2018 PROCEDURE: CT Chest, Abdomen and Pelvis without intravenous contrast HISTORY: ams, abd distention COMPARISON: Correlation is made to CT scan of the chest dated 03/10/[address] scan of the abdomen pelvis dated 01/25/2018.. TECHNIQUE: Radiation dose: Total exam DLP = 966.62 mGy-cm. This CT exam was performed using one or more of the following dose reduction techniques: Automated exposure control, adjustment of the mA and/or kV according to patient size, and/or use of iterative reconstruction technique. FINDINGS: CT CHEST WITHOUT CONTRAST: LUNGS: Clear. No nodule, mass or consolidation. MEDIASTINUM: Unremarkable. Normal caliber aorta and pulmonary arterial trunk. Cardiomegaly. Coronary arterial and valvular calcifications. Aortic atherosclerotic calcifications. LYMPH NODES: Unremarkable. PLEURA: Unremarkable. No pneumothorax. No pleural fluid. BONES: Unremarkable. OTHER FINDINGS: None. CT ABDOMEN AND PELVIS: LIVER: Hepatic dome granuloma. Nodular contour. No gross lesion or ductal dilatation. GALLBLADDER AND BILE DUCTS: Prior cholecystectomy. PANCREAS: Unremarkable. No gross lesion or ductal dilatation. SPLEEN: Unremarkable. ADRENALS: Unremarkable. No mass. KIDNEYS AND URETERS: Unremarkable. No hydronephrosis. No solid mass. VASCULATURE: Aortic atherosclerotic calcifications. No aortic aneurysm. Infrarenal IVC filter. BOWEL: Small hiatal hernia. Prominent loops of fluid-filled small and large bowel. No gross mural thickening. APPENDIX: No findings to suggest acute appendicitis. PERITONEUM: Small fat containing umbilical hernia. No free fluid. No free air. LYMPH NODES: Unremarkable. No enlarged lymph nodes. BLADDER: Unremarkable. REPRODUCTIVE: Unremarkable. BONES: Old rib fractures. Diffuse spinal degenerative changes. Stable T11 vertebral compression fracture. OTHER FINDINGS: None. IMPRESSION: Prominent fluid-filled loops of small and large bowel. Small bowel measuring as wide as 3.5 cm which can be seen with ileus. Additional findings as above. 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 clinically seems to be nelson. she has remained afebrile normal wbc count blood cx- neg Urine cx from - esbl e,coli but UA from 03/23/2018- negative stool c.diff- neg x 2 plan- advise to check staright cath UA and urine cx . the ESBl in urine cx could have been colonization as pt. has negative UA and no UTI symptoms. hold off on any antibiotics pending repeat urine cx and UA results. all above d/w patient and her daughter . Thank you for allowing me to take part in the care of this patient.
[2018-03-31] MEDS ORDERED: Meropenem 1 GM in Sodium Chloride 0.9% 100 ML IVPB ONE (10:30)
--- NOTE | 2018-03-31 11:19 | CP.PCM.PN ---
Subjective - Date & Time of Evaluation Date of Evaluation: 03/31/18 Time of Evaluation: 11:17 - Subjective Subjective: Neurology Follow-Up Note: Mrs. Perkins was evaluated this morning at bedside. Daughter, Mary Kate, also present at bedside. Pt states that she continues to feel good today and offers no complaints aside from being hungry. There has been no change in behavior or mental status. She is remains confused but is able to maintain a conversation with me, answer most questions appropriately, and follow commands. She continue to verbalize that a little boy in her room that jumps on the magallon and ceiling. Pt denies h/a, dizziness, visual changes, chest pain, palpitations, sob, cough, n/v/d. Objective - Vital Signs/Intake and Output Vital Signs (last 24 hours): Temp Pulse Resp BP Pulse Ox 98.0 F 94 H 20 114/58 L 99 03/31/18 08:41 03/31/18 08:41 03/31/18 08:41 03/31/18 08:41 03/31/18 08:41 - Medications Medications: Current Medications Albuterol/Ipratropium (Duoneb 3 Mg/0.5 Mg (3 Ml) Ud) 3 ml INH RQ6 PRN PRN Reason: Shortness of Breath Last Admin: 03/28/18 13:29 Dose: 3 ml Aripiprazole (Abilify) 2 mg PO HS [facility] Last Admin: 03/30/18 23:49 Dose: 2 mg Aspirin (Ecotrin) 81 mg PO DAILY [facility] Last Admin: 03/31/18 08:55 Dose: 81 mg Atorvastatin Calcium (Lipitor) 20 mg PO DAILY@2200 [facility] Last Admin: 03/27/18 22:10 Dose: 20 mg Benztropine Mesylate (Cogentin) 1 mg PO Q12 [facility] Last Admin: 03/31/18 08:54 Dose: 1 mg Bortezomib (Velcade) 3.5 mg IVP [facility] Last Admin: 03/29/18 16:05 Dose: Not Given Buspirone HCl (Buspar) 15 mg PO Q12 [facility] Last Admin: 03/31/18 08:54 Dose: 15 mg Calcitriol (Rocaltrol) 0.25 mcg PO DAILY [facility] Calcium Carbonate (Oscal) 500 mg PO BID [facility] Last Admin: 03/31/18 09:00 Dose: 500 mg Cholecalciferol (Vitamin D) 1,000 intlu PO DAILY [facility] Last Admin: 03/31/18 09:05 Dose: 1,000 intlu Clonazepam (Klonopin) 0.5 mg PO DAILY PRN PRN Reason: Anxiety Dextrose (Dextrose 50% Inj) 0 ml IV STAT PRN; Protocol PRN Reason: Hypoglycemia Protocol Dextrose (Glutose 15) 0 gm PO ONCE PRN; Protocol PRN Reason: Hypoglycemia Protocol Duloxetine HCl (Cymbalta) 60 mg PO DAILY [facility] Last Admin: 03/31/18 08:55 Dose: 60 mg Enalapril Maleate (Vasotec) 5 mg PO DAILY [facility] Enoxaparin Sodium (Lovenox) 40 mg SC DAILY [facility]; Protocol Last Admin: 03/31/18 08:58 Dose: 40 mg Escitalopram Oxalate (Lexapro) 10 mg PO DAILY [facility] Last Admin: 03/31/18 08:56 Dose: 10 mg Famotidine (Pepcid) 40 mg IVP DAILY [facility] Last Admin: 03/31/18 09:02 Dose: 40 mg Ferrous Sulfate (Feosol) 325 mg PO DAILY [facility] Last Admin: 03/25/18 08:45 Dose: 325 mg Gabapentin (Neurontin) 100 mg PO TID [facility] Last Admin: 03/31/18 09:00 Dose: 100 mg Glucagon (Glucagen Diagnostic Kit) 0 mg IM STAT PRN; Protocol PRN Reason: Hypoglycemia Protocol Home Med (Riociguat [Adempas]) 2 mg PO TID [facility] Last Admin: 03/31/18 09:03 Dose: 2 mg Hydrocortisone (Cortef) 10 mg PO [facility] Last Admin: 03/30/18 23:49 Dose: 10 mg Dextrose/Sodium Chloride (Dextrose 5%/0.9% Ns 1000 Ml) 1,000 mls @ 80 mls/hr IV .[id number] [facility] Stop: 03/31/18 17:55 Last Admin: 03/30/18 23:45 Dose: 80 mls/hr Meropenem 1 gm/ Sodium (Chloride) 100 mls @ 100 mls/hr IVPB ONCE ONE; Protocol Stop: 03/31/18 11:29 Insulin Detemir (Levemir) 10 units SC [facility] Last Admin: 03/30/18 22:30 Dose: 10 units Insulin Human Lispro (Humalog) 5 units SC TID [facility] Last Admin: 03/24/18 09:12 Dose: Not Given Insulin Human Lispro (Humalog) 0 units SC ACCU-CHECK [facility]; Protocol Last Admin: 03/31/18 08:55 Dose: Not Given Levothyroxine Sodium (Synthroid) 100 mcg PO DAILY@0630 [facility] Last Admin: 03/30/18 06:22 Dose: Not Given Magnesium Oxide (Mag-Ox) 400 mg PO BID [facility] Metformin HCl (Glucophage) 500 mg PO BID [facility] Last Admin: 03/24/18 09:07 Dose: 500 mg Torsemide (Demadex) 20 mg PO DAILY [facility] - Labs Labs: 03/31/18 05:15 03/31/18 05:15 PT 11.8 Seconds (9.8-13.1) 03/23/18 17:02 INR 1.0 03/23/18 17:02 APTT 29.2 Seconds (25.6-37.1) 03/23/18 17:02 - Constitutional Appears: Well, Non-toxic, No Acute Distress - Head Exam Head Exam: ATRAUMATIC, NORMAL INSPECTION, NORMOCEPHALIC - Eye Exam Eye Exam: EOMI, Normal appearance Pupil Exam: NORMAL ACCOMODATION, PERRL - ENT Exam ENT Exam: Mucous Membranes Moist Additional comments: NGT in place - Neck Exam Neck Exam: Full ROM, Normal Inspection - Respiratory Exam Respiratory Exam: NORMAL BREATHING PATTERN - GI/Abdominal Exam GI & Abdominal Exam: Soft Additional comments: NGT in place; rectal tube in place - Rectal Exam Additional comments: rectal tube in place - Extremities Exam Extremities Exam: Full ROM Additional comments: generalized weakness - Back Exam Back Exam: NORMAL INSPECTION - Neurological Exam Neurological Exam: Altered, Awake, CN II-XII Intact, Reflexes Normal Neuro motor strength exam: Left Upper Extremity: 4, Right Upper Extremity: 4, Left Lower Extremity: 4, Right Lower Extremity: 4 Additional comments: Awake, alert, oriented to place and person; still disoriented to time (cannot recall the year) Confused but pleasant, answers questions, able to hold a conversation with me, and able to follow commands No echolalia, no aphasia Able to move all extremities independently; generalized weakness noted Sensation intact Gait not assessed. - Psychiatric Exam Additional comments: confused; visual hallucinations - Skin Skin Exam: Normal Color Assessment and Plan (1) Acute encephalopathy Assessment & Plan: Imaging reviewed: -EEG (03/28/18): This is an abnormal EEG record that demonstrate the presence of a mild to moderate non specific diffuse disturbance of cortical activity, this is in keeping with a diffuse wilson matter dysfunction. These findings do not support a specific etiology. No seizures/events captured. -CT Head (03/28/18): No acute intracranial pathology. Age-related changes. No significant interval change. -CT Head (03/23/18): No evidence of acute intracranial hemorrhage mass effect or midline shift. No significant interval changes noted since the prior exam. -Neurologically, Mrs. Perkins has remained stable and has improved from initial neuro consult. No need for MRI Brain at this time. Reconsider if there is an acute change in mental status. -Continue current treatment for other medical issues and recommendations by other consults and primary team. -May follow up with [facility] for psych management and treatment in the office. Daughter Mary Kate did state to me today that she prefers an in hospital consult as she has concerns about her mother once she is d/c---this decision will be deferred to primary team. -Notify neuro team of any acute changes in pt's condition. Thank you for allowing us to participate in this pt's care. Reconsult prn. Case discussed with Dr. Marrero Status: Acute
[2018-03-31] MEDS: Magnesium Oxide 400 mg Tab UD PO SCH ×2 (11:45→17:54)
--- NOTE | 2018-03-31 12:43 | CP.PCM.PN ---
Objective - Vital Signs/Intake and Output Vital Signs (last 24 hours): Temp Pulse Resp BP Pulse Ox 98.4 F 86 18 134/66 100 03/31/18 12:07 03/31/18 12:07 03/31/18 12:07 03/31/18 12:07 03/31/18 12:07 - Medications Medications: Current Medications Albuterol/Ipratropium (Duoneb 3 Mg/0.5 Mg (3 Ml) Ud) 3 ml INH RQ6 PRN PRN Reason: Shortness of Breath Last Admin: 03/28/18 13:29 Dose: 3 ml Aripiprazole (Abilify) 2 mg PO HS [facility] Last Admin: 03/30/18 23:49 Dose: 2 mg Aspirin (Ecotrin) 81 mg PO DAILY [facility] Last Admin: 03/31/18 08:55 Dose: 81 mg Atorvastatin Calcium (Lipitor) 20 mg PO DAILY@2200 [facility] Last Admin: 03/27/18 22:10 Dose: 20 mg Benztropine Mesylate (Cogentin) 1 mg PO Q12 [facility] Last Admin: 03/31/18 08:54 Dose: 1 mg Bortezomib (Velcade) 3.5 mg IVP [facility] Last Admin: 03/29/18 16:05 Dose: Not Given Buspirone HCl (Buspar) 15 mg PO Q12 [facility] Last Admin: 03/31/18 08:54 Dose: 15 mg Calcitriol (Rocaltrol) 0.25 mcg PO DAILY [facility] Calcium Carbonate (Oscal) 500 mg PO BID [facility] Last Admin: 03/31/18 09:00 Dose: 500 mg Cholecalciferol (Vitamin D) 1,000 intlu PO DAILY [facility] Last Admin: 03/31/18 09:05 Dose: 1,000 intlu Clonazepam (Klonopin) 0.5 mg PO DAILY PRN PRN Reason: Anxiety Dextrose (Dextrose 50% Inj) 0 ml IV STAT PRN; Protocol PRN Reason: Hypoglycemia Protocol Dextrose (Glutose 15) 0 gm PO ONCE PRN; Protocol PRN Reason: Hypoglycemia Protocol Duloxetine HCl (Cymbalta) 60 mg PO DAILY [facility] Last Admin: 03/31/18 08:55 Dose: 60 mg Enalapril Maleate (Vasotec) 5 mg PO DAILY [facility] Enoxaparin Sodium (Lovenox) 40 mg SC DAILY [facility]; Protocol Last Admin: 03/31/18 08:58 Dose: 40 mg Escitalopram Oxalate (Lexapro) 10 mg PO DAILY [facility] Last Admin: 03/31/18 08:56 Dose: 10 mg Famotidine (Pepcid) 40 mg IVP DAILY [facility] Last Admin: 03/31/18 09:02 Dose: 40 mg Ferrous Sulfate (Feosol) 325 mg PO DAILY [facility] Last Admin: 03/25/18 08:45 Dose: 325 mg Gabapentin (Neurontin) 100 mg PO TID [facility] Last Admin: 03/31/18 12:36 Dose: 100 mg Glucagon (Glucagen Diagnostic Kit) 0 mg IM STAT PRN; Protocol PRN Reason: Hypoglycemia Protocol Home Med (Riociguat [Adempas]) 2 mg PO TID [facility] Last Admin: 03/31/18 12:40 Dose: 2 mg Hydrocortisone (Cortef) 10 mg PO [facility] Last Admin: 03/30/18 23:49 Dose: 10 mg Dextrose/Sodium Chloride (Dextrose 5%/0.9% Ns 1000 Ml) 1,000 mls @ 80 mls/hr IV .[id number] [facility] Stop: 03/31/18 17:55 Last Admin: 03/30/18 23:45 Dose: 80 mls/hr Insulin Detemir (Levemir) 10 units SC [facility] Last Admin: 03/30/18 22:30 Dose: 10 units Insulin Human Lispro (Humalog) 5 units SC TID [facility] Last Admin: 03/24/18 09:12 Dose: Not Given Insulin Human Lispro (Humalog) 0 units SC ACCU-CHECK [facility]; Protocol Last Admin: 03/31/18 12:34 Dose: Not Given Levothyroxine Sodium (Synthroid) 100 mcg PO DAILY@0630 [facility] Last Admin: 03/30/18 06:22 Dose: Not Given Magnesium Oxide (Mag-Ox) 400 mg PO BID [facility] Last Admin: 03/31/18 11:45 Dose: 400 mg Metformin HCl (Glucophage) 500 mg PO BID [facility] Last Admin: 03/24/18 09:07 Dose: 500 mg Torsemide (Demadex) 20 mg PO DAILY [facility] - Labs Labs: 03/31/18 05:15 03/31/18 05:15 PT 11.8 Seconds (9.8-13.1) 01/16/19 17:02 INR 1.0 03/23/18 17:02 APTT 29.2 Seconds (25.6-37.1) 03/23/18 17:02
[2018-03-31] MEDS: Dextrose 5%/0.9% NS 1,000 ML IV SCH ×2 (15:49→20:00)
--- NOTE | 2018-03-31 17:20 | CP.PCM.PN ---
Subjective - Date & Time of Evaluation Date of Evaluation: 03/31/18 Time of Evaluation: 13:00 - Subjective Subjective: Patient seen and examined this AM with attending and Dr. Varela. Feeling better. Pt is alert awake. Tolerated liquid diet. Abdomen no longer distended with +bowel sounds. +Soft stools per rectal tube. Patient requesting food, no urinary symptoms. Has remained afebrile. ID consult Objective - Vital Signs/Intake and Output Vital Signs (last 24 hours): Temp Pulse Resp BP Pulse Ox 98.5 F 93 H 18 124/75 98 03/31/18 16:30 03/31/18 16:30 03/31/18 16:30 03/31/18 16:30 03/31/18 16:30 - Medications Medications: Current Medications Albuterol/Ipratropium (Duoneb 3 Mg/0.5 Mg (3 Ml) Ud) 3 ml INH RQ6 PRN PRN Reason: Shortness of Breath Last Admin: 03/28/18 13:29 Dose: 3 ml Aripiprazole (Abilify) 2 mg PO HS [facility] Last Admin: 03/30/18 23:49 Dose: 2 mg Aspirin (Ecotrin) 81 mg PO DAILY [facility] Last Admin: 03/31/18 08:55 Dose: 81 mg Atorvastatin Calcium (Lipitor) 20 mg PO DAILY@2200 [facility] Last Admin: 03/27/18 22:10 Dose: 20 mg Benzocaine/Menthol (Cepacol Sore Throat) 1 kaitlyn PO Q2 PRN PRN Reason: Sore Throat Benztropine Mesylate (Cogentin) 1 mg PO Q12 [facility] Last Admin: 03/31/18 08:54 Dose: 1 mg Bortezomib (Velcade) 3.5 mg IVP [facility] Last Admin: 03/29/18 16:05 Dose: Not Given Buspirone HCl (Buspar) 15 mg PO Q12 [facility] Last Admin: 03/31/18 08:54 Dose: 15 mg Calcitriol (Rocaltrol) 0.25 mcg PO DAILY [facility] Calcium Carbonate (Oscal) 500 mg PO BID [facility] Last Admin: 03/31/18 09:00 Dose: 500 mg Cholecalciferol (Vitamin D) 1,000 intlu PO DAILY [facility] Last Admin: 03/31/18 09:05 Dose: 1,000 intlu Clonazepam (Klonopin) 0.5 mg PO DAILY PRN PRN Reason: Anxiety Dextrose (Dextrose 50% Inj) 0 ml IV STAT PRN; Protocol PRN Reason: Hypoglycemia Protocol Dextrose (Glutose 15) 0 gm PO ONCE PRN; Protocol PRN Reason: Hypoglycemia Protocol Duloxetine HCl (Cymbalta) 60 mg PO DAILY [facility] Last Admin: 03/31/18 08:55 Dose: 60 mg Enalapril Maleate (Vasotec) 5 mg PO DAILY [facility] Enoxaparin Sodium (Lovenox) 40 mg SC DAILY [facility]; Protocol Last Admin: 03/31/18 08:58 Dose: 40 mg Escitalopram Oxalate (Lexapro) 10 mg PO DAILY [facility] Last Admin: 03/31/18 08:56 Dose: 10 mg Famotidine (Pepcid) 40 mg IVP DAILY [facility] Last Admin: 03/31/18 09:02 Dose: 40 mg Ferrous Sulfate (Feosol) 325 mg PO DAILY [facility] Last Admin: 03/25/18 08:45 Dose: 325 mg Gabapentin (Neurontin) 100 mg PO TID [facility] Last Admin: 03/31/18 12:36 Dose: 100 mg Glucagon (Glucagen Diagnostic Kit) 0 mg IM STAT PRN; Protocol PRN Reason: Hypoglycemia Protocol Home Med (Riociguat [Adempas]) 2 mg PO TID [facility] Last Admin: 03/31/18 12:40 Dose: 2 mg Hydrocortisone (Cortef) 10 mg PO [facility] Last Admin: 03/30/18 23:49 Dose: 10 mg Dextrose/Sodium Chloride (Dextrose 5%/0.9% Ns 1000 Ml) 1,000 mls @ 80 mls/hr IV .[id number] [facility] Stop: 04/01/18 08:00 Last Admin: 03/30/18 23:45 Dose: 80 mls/hr Insulin Detemir (Levemir) 10 units SC [facility] Last Admin: 03/30/18 22:30 Dose: 10 units Insulin Human Lispro (Humalog) 5 units SC TID [facility] Last Admin: 03/24/18 09:12 Dose: Not Given Insulin Human Lispro (Humalog) 0 units SC ACCU-CHECK [facility]; Protocol Last Admin: 03/31/18 12:34 Dose: Not Given Levothyroxine Sodium (Synthroid) 100 mcg PO DAILY@0630 [facility] Last Admin: 03/30/18 06:22 Dose: Not Given Magnesium Oxide (Mag-Ox) 400 mg PO BID [facility] Last Admin: 03/31/18 11:45 Dose: 400 mg Metformin HCl (Glucophage) 500 mg PO BID [facility] Last Admin: 03/24/18 09:07 Dose: 500 mg Torsemide (Demadex) 20 mg PO DAILY [facility] - Labs Labs: 03/31/18 05:15 03/31/18 05:15 PT 11.8 Seconds (9.8-13.1) 03/23/18 17:02 INR 1.0 03/23/18 17:02 APTT 29.2 Seconds (25.6-37.1) 03/23/18 17:02 - Constitutional Appears: Well, No Acute Distress - Head Exam Head Exam: ATRAUMATIC, NORMAL INSPECTION - Eye Exam Eye Exam: EOMI, Normal appearance - Respiratory Exam Respiratory Exam: Clear to Ausculation Bilateral, NORMAL BREATHING PATTERN. absent: Decreased Breath Sounds, Rales, Wheezes - Cardiovascular Exam Cardiovascular Exam: REGULAR RHYTHM, +S1, +S2 - GI/Abdominal Exam GI & Abdominal Exam: Soft, Hypoactive Bowel Sounds. 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 Pt has had many metabolic derangements that are likely contributing to her AMS. Her electrolytes are now WNL. Patients mental status is improving. She is awake alert and oriented, she continues to have visual/auditory hallucinations that are benign. She has +ESBL in urine, but is afebrile without leukocytosis. Blood cultures have been negative. Patient tolerated liquid diet and has been having soft stools in rectal tube. She had NG tube in for >24 hours, pt removed tube at 17:00. PLAN: >+ESBL in urine culture --afebrile without leukocytosis --+ESBL carrier? --merrem x 1 given --ID consult appreciated, to repeat ua and ucx, hold off on abx for now. >Altered Mental Status /Delirium --improving --secondary to delirium, metabolic derangements have resolved, psych meds resumed --Head CT negative for acute findings, repeat pending --thought to be secondary to metabolic derangements ( hypercalcemia, hypomagnesemia, dehydration)--resolved >Ileus --resolved --stools passing per rectal tube. --tolerating feeds. NG out this afternoon. Metabolic Derangements: >Hypercalcemia -- resolved >Hypomagnesemia --chronic, improved --IV and PO mag discontinued --Discontinued PPI as this can cause hypoMG >Hypophosphatemia --phos: 2.0 --Continue to monitor >IDDM --Metformin held, Meal time Bolus held, put on low sliding scale and reduced basal insulin given pt's poor intake and low sugars --Accuchecks --Hypoglycemic protocol --ISS, low dose >Multiple Myeloma --Heme/Onc on board: Dr. Vilchis --Bortezomib on hold, will administer in outpatient setting >CHF/HTN --Echocardiogram on 08/25/17 showed LVEF 60-65%, grade I abnormal relaxation pattern. --Possibly diastolic dysfunction-CHF --Holding torsemide for now as per nephro; will monitor volume status >COPD/Pulm HTN --Resumed home meds >DVT Prophylaxis --Lovenox 40mg SC daily --SCDs Case d/w Dr. Neumann. Rosa Bhatia PGY3
--- NOTE | 2018-03-31 20:01 | CP.PCM.PN ---
Subjective - Date & Time of Evaluation Date of Evaluation: 03/31/18 Time of Evaluation: 13:00 - Subjective Subjective: Patient tolerating diet; no breathing issues reported; Objective - Vital Signs/Intake and Output Vital Signs (last 24 hours): Temp Pulse Resp BP Pulse Ox 97.9 F 98 H 18 117/66 98 03/31/18 19:53 03/31/18 19:53 03/31/18 19:53 03/31/18 19:53 03/31/18 19:53 Intake and Output: 03/31/18 04/01/18 18:59 06:59 Intake Total 1160 Output Total 1250 Balance -90 - Medications Medications: Current Medications Albuterol/Ipratropium (Duoneb 3 Mg/0.5 Mg (3 Ml) Ud) 3 ml INH RQ6 PRN PRN Reason: Shortness of Breath Last Admin: 03/28/18 13:29 Dose: 3 ml Aripiprazole (Abilify) 2 mg PO HS [facility] Last Admin: 03/30/18 23:49 Dose: 2 mg Aspirin (Ecotrin) 81 mg PO DAILY [facility] Last Admin: 03/31/18 08:55 Dose: 81 mg Atorvastatin Calcium (Lipitor) 20 mg PO DAILY@2200 [facility] Last Admin: 03/27/18 22:10 Dose: 20 mg Benzocaine/Menthol (Cepacol Sore Throat) 1 kaitlyn PO Q2 PRN PRN Reason: Sore Throat Benztropine Mesylate (Cogentin) 1 mg PO Q12 [facility] Last Admin: 03/31/18 08:54 Dose: 1 mg Bortezomib (Velcade) 3.5 mg IVP [facility] Last Admin: 03/29/18 16:05 Dose: Not Given Buspirone HCl (Buspar) 15 mg PO Q12 [facility] Last Admin: 03/31/18 08:54 Dose: 15 mg Calcitriol (Rocaltrol) 0.25 mcg PO DAILY [facility] Last Admin: 03/31/18 17:57 Dose: 0.25 mcg Calcium Carbonate (Oscal) 500 mg PO BID [facility] Last Admin: 03/31/18 17:55 Dose: 500 mg Cholecalciferol (Vitamin D) 1,000 intlu PO DAILY [facility] Last Admin: 03/31/18 09:05 Dose: 1,000 intlu Clonazepam (Klonopin) 0.5 mg PO DAILY PRN PRN Reason: Anxiety Dextrose (Dextrose 50% Inj) 0 ml IV STAT PRN; Protocol PRN Reason: Hypoglycemia Protocol Dextrose (Glutose 15) 0 gm PO ONCE PRN; Protocol PRN Reason: Hypoglycemia Protocol Duloxetine HCl (Cymbalta) 60 mg PO DAILY [facility] Last Admin: 03/31/18 08:55 Dose: 60 mg Enalapril Maleate (Vasotec) 5 mg PO DAILY [facility] Enoxaparin Sodium (Lovenox) 40 mg SC DAILY [facility]; Protocol Last Admin: 03/31/18 08:58 Dose: 40 mg Escitalopram Oxalate (Lexapro) 10 mg PO DAILY [facility] Last Admin: 03/31/18 08:56 Dose: 10 mg Famotidine (Pepcid) 40 mg IVP DAILY [facility] Last Admin: 03/31/18 09:02 Dose: 40 mg Ferrous Sulfate (Feosol) 325 mg PO DAILY [facility] Last Admin: 03/25/18 08:45 Dose: 325 mg Gabapentin (Neurontin) 100 mg PO TID [facility] Last Admin: 03/31/18 18:02 Dose: 100 mg Glucagon (Glucagen Diagnostic Kit) 0 mg IM STAT PRN; Protocol PRN Reason: Hypoglycemia Protocol Home Med (Riociguat [Adempas]) 2 mg PO TID [facility] Last Admin: 03/31/18 17:55 Dose: 2 mg Hydrocortisone (Cortef) 10 mg PO [facility] Last Admin: 03/30/18 23:49 Dose: 10 mg Dextrose/Sodium Chloride (Dextrose 5%/0.9% Ns 1000 Ml) 1,000 mls @ 80 mls/hr IV .[id number] [facility] Stop: 04/01/18 08:00 Last Admin: 03/31/18 15:49 Dose: 80 mls/hr Insulin Detemir (Levemir) 10 units SC [facility] Last Admin: 03/30/18 22:30 Dose: 10 units Insulin Human Lispro (Humalog) 5 units SC TID [facility] Last Admin: 03/24/18 09:12 Dose: Not Given Insulin Human Lispro (Humalog) 0 units SC ACCU-CHECK [facility]; Protocol Last Admin: 03/31/18 17:54 Dose: Not Given Levothyroxine Sodium (Synthroid) 100 mcg PO DAILY@0630 [facility] Last Admin: 03/30/18 06:22 Dose: Not Given Magnesium Oxide (Mag-Ox) 400 mg PO BID [facility] Last Admin: 03/31/18 17:54 Dose: 400 mg Metformin HCl (Glucophage) 500 mg PO BID [facility] Last Admin: 03/24/18 09:07 Dose: 500 mg Torsemide (Demadex) 20 mg PO DAILY [facility] - Labs Labs: 03/31/18 05:15 03/31/18 05:15 PT 11.8 Seconds (9.8-13.1) 03/23/18 17:02 INR 1.0 03/23/18 17:02 APTT 29.2 Seconds (25.6-37.1) 03/23/18 17:02 - Constitutional Appears: Non-toxic, No Acute Distress - Eye Exam Eye Exam: Normal appearance - Respiratory Exam Respiratory Exam: Clear to Ausculation Bilateral. absent: Respiratory Distress - Cardiovascular Exam Cardiovascular Exam: RRR, +S1, +S2 - GI/Abdominal Exam GI & Abdominal Exam: Soft. absent: Distended, Tenderness - Extremities Exam Additional comments: no significant leg edema; - Neurological Exam Neurological Exam: Alert, Awake - Psychiatric Exam Psychiatric exam: Normal Mood. absent: Agitated - Skin Skin Exam: Warm. absent: Cyanosis Assessment and Plan (1) Electrolyte abnormality Assessment & Plan: Low/normal corrected Ca level; started on calcitriol 0.25 mcg daily (repeat PTH drawn before starting), continue current dose along with calcium supplementation for now; monitor carefully for recurrence of hypercalcemia; Phos improved after IV supplementation; monitor; supplement prn; Again low mag, supplementing IV (running slowly at 1g/hr to avoid renal mag wasting); keep on PO mag ox 400 bid; Status: Acute (2) Hypercalcemia Status: Resolved (3) Hypomagnesemia Status: Resolved (4) CHF (congestive heart failure) Status: Chronic (5) Acute kidney injury Status: Acute
[2018-03-31 21:07] LABS: URINE BACTERIA FEW (<OCC); URINE BILIRUBIN NEGATIVE (NEGATIVE); URINE BLOOD SMALL (NEGATIVE); URINE CLARITY TURBID (Clear); URINE COLOR YELLOW (YELLOW); URINE GLUCOSE (UA) NEG (NEGATIVE); URINE LEUKOCYTE ESTERASE LARGE Leu/uL (Negative); URINE PROTEIN 30 mg/dL (NEGATIVE); URINE UROBILINOGEN 0.2-1.0 mg/dL (0.2-1.0); WBC CLUMPS MANY /hpf
--- NOTE | 2018-03-31 22:09 | CP.PCM.PN ---
Subjective - Date & Time of Evaluation Date of Evaluation: 03/31/18 Time of Evaluation: 18:00 - Subjective Subjective: More alert but still confused Objective - Vital Signs/Intake and Output Vital Signs (last 24 hours): Temp Pulse Resp BP Pulse Ox 97.9 F 98 H 18 117/66 98 03/31/18 19:53 03/31/18 19:53 03/31/18 19:53 03/31/18 19:53 03/31/18 19:53 Intake and Output: 03/31/18 04/01/18 18:59 06:59 Intake Total 1160 Output Total 1250 Balance -90 - Medications Medications: Current Medications Albuterol/Ipratropium (Duoneb 3 Mg/0.5 Mg (3 Ml) Ud) 3 ml INH RQ6 PRN PRN Reason: Shortness of Breath Last Admin: 03/28/18 13:29 Dose: 3 ml Aripiprazole (Abilify) 2 mg PO HS [facility] Last Admin: 03/31/18 21:02 Dose: 2 mg Aspirin (Ecotrin) 81 mg PO DAILY [facility] Last Admin: 03/31/18 08:55 Dose: 81 mg Atorvastatin Calcium (Lipitor) 20 mg PO DAILY@2200 [facility] Last Admin: 03/31/18 21:02 Dose: 20 mg Benzocaine/Menthol (Cepacol Sore Throat) 1 kaitlyn PO Q2 PRN PRN Reason: Sore Throat Benztropine Mesylate (Cogentin) 1 mg PO Q12 [facility] Last Admin: 03/31/18 20:56 Dose: 1 mg Bortezomib (Velcade) 3.[facility] Last Admin: 03/29/18 16:05 Dose: Not Given Buspirone HCl (Buspar) 15 mg PO Q12 [facility] Last Admin: 03/31/18 20:55 Dose: 15 mg Calcitriol (Rocaltrol) 0.25 mcg PO DAILY [facility] Last Admin: 03/31/18 17:57 Dose: 0.25 mcg Calcium Carbonate (Oscal) 500 mg PO BID [facility] Last Admin: 03/31/18 17:55 Dose: 500 mg Cholecalciferol (Vitamin D) 1,000 intlu PO DAILY [facility] Last Admin: 03/31/18 09:05 Dose: 1,000 intlu Clonazepam (Klonopin) 0.5 mg PO DAILY PRN PRN Reason: Anxiety Dextrose (Dextrose 50% Inj) 0 ml IV STAT PRN; Protocol PRN Reason: Hypoglycemia Protocol Dextrose (Glutose 15) 0 gm PO ONCE PRN; Protocol PRN Reason: Hypoglycemia Protocol Duloxetine HCl (Cymbalta) 60 mg PO DAILY [facility] Last Admin: 03/31/18 08:55 Dose: 60 mg Enalapril Maleate (Vasotec) 5 mg PO DAILY [facility] Enoxaparin Sodium (Lovenox) 40 mg SC DAILY [facility]; Protocol Last Admin: 03/31/18 08:58 Dose: 40 mg Escitalopram Oxalate (Lexapro) 10 mg PO DAILY [facility] Last Admin: 03/31/18 08:56 Dose: 10 mg Famotidine (Pepcid) 40 mg IVP DAILY [facility] Last Admin: 03/31/18 09:02 Dose: 40 mg Ferrous Sulfate (Feosol) 325 mg PO DAILY [facility] Last Admin: 03/25/18 08:45 Dose: 325 mg Gabapentin (Neurontin) 100 mg PO TID [facility] Last Admin: 03/31/18 18:02 Dose: 100 mg Glucagon (Glucagen Diagnostic Kit) 0 mg IM STAT PRN; Protocol PRN Reason: Hypoglycemia Protocol Home Med (Riociguat [Adempas]) 2 mg PO TID [facility] Last Admin: 03/31/18 17:55 Dose: 2 mg Hydrocortisone (Cortef) 10 mg PO [facility] Last Admin: 03/31/18 21:02 Dose: 10 mg Dextrose/Sodium Chloride (Dextrose 5%/0.9% Ns 1000 Ml) 1,000 mls @ 80 mls/hr IV .[id number] [facility] Stop: 04/01/18 08:00 Last Admin: 03/31/18 20:00 Dose: 80 mls/hr Insulin Detemir (Levemir) 10 units SC [facility] Last Admin: 03/30/18 22:30 Dose: 10 units Insulin Human Lispro (Humalog) 5 units SC TID [facility] Last Admin: 03/24/18 09:12 Dose: Not Given Insulin Human Lispro (Humalog) 0 units SC ACCU-CHECK [facility]; Protocol Last Admin: 03/31/18 17:54 Dose: Not Given Levothyroxine Sodium (Synthroid) 100 mcg PO DAILY@0630 [facility] Last Admin: 03/30/18 06:22 Dose: Not Given Magnesium Oxide (Mag-Ox) 400 mg PO BID [facility] Last Admin: 03/31/18 17:54 Dose: 400 mg Metformin HCl (Glucophage) 500 mg PO BID [facility] Last Admin: 03/24/18 09:07 Dose: 500 mg Torsemide (Demadex) 20 mg PO DAILY [facility] - Labs Labs: 03/31/18 05:15 03/31/18 05:15 PT 11.8 Seconds (9.8-13.1) 03/23/18 17:02 INR 1.0 03/23/18 17:02 APTT 29.2 Seconds (25.6-37.1) 03/23/18 17:02 - Head Exam Head Exam: ATRAUMATIC - Eye Exam Eye Exam: Normal appearance - ENT Exam ENT Exam: Mucous Membranes Dry - Respiratory Exam Respiratory Exam: NORMAL BREATHING PATTERN - Cardiovascular Exam Cardiovascular Exam: +S1, +S2 Assessment and Plan (1) Anemia Assessment & Plan: chronic disease Status: Resolved (2) Multiple myeloma Assessment & Plan: outpatient treatment Status: Chronic (3) Hypercalcemia Assessment & Plan: resolved Status: Resolved
[2018-03-31] MEDS: Insulin Detemir 100 Units/ml Inj SC SCH (23:01)
[2018-04-01 05:44] LABS: HEMOGLOBIN 10.1 g/dL (12.0-16.0); MEAN CELL VOLUME 87.8 fl (81.0-99.0); MEAN CORPUSCULAR HEMOGLOBIN 28.2 pg (27.0-31.0); MEAN CORPUSCULAR HGB CONC 32.1 g/dL (33.0-37.0); RBC 3.6 Mil/uL (3.80-5.20); RED CELL DISTRIBUTION WIDTH 18.5 % (11.5-14.5)
[2018-04-01] MEDS: Levothyroxine 100 MCG TAB PO SCH (06:07)
[2018-04-01 06:21] LABS: ALB/GLOB RATIO 0.8 (1.0-2.1); ALBUMIN 2.5 g/dL (3.5-5.0); ALT/SGPT 18 U/L (9-52); AST/SGOT 23 U/L (14-36); BLOOD UREA NITROGEN 11 mg/dl (7-17); CALCIUM 7.1 mg/dL (8.4-10.2); GFR NON-AFRICAN AMERICAN > 60
[2018-04-01] MEDS: Insulin Lispro (humaLOG) 100 Units/ml Inj SC SCH ×4 (06:32→22:20)
--- NOTE | 2018-04-01 07:32 | CP.PCM.PN ---
Subjective - Date & Time of Evaluation Date of Evaluation: 04/01/18 Time of Evaluation: 08:00 - Subjective Subjective: Pt seen and examined this morning. Seen sitting in bed. Denies any complaints including abdominal pain, n/v, dysuria, or fever/chills. Pt is alert and oriented, responding appropriately. Tolerated her liquid diet this morning. Will advance to regular diet in the afternoon. Discussed dispo with daughter who was a bedside. Will plan for transfer to TCU once stable. Daughter in agreement. Objective - Vital Signs/Intake and Output Vital Signs (last 24 hours): Temp Pulse Resp BP Pulse Ox 98.3 F 91 H 16 99/58 L 100 04/01/18 05:00 04/01/18 05:00 04/01/18 05:00 04/01/18 05:00 04/01/18 05:00 - Medications Medications: Current Medications Albuterol/Ipratropium (Duoneb 3 Mg/0.5 Mg (3 Ml) Ud) 3 ml INH RQ6 PRN PRN Reason: Shortness of Breath Last Admin: 03/28/18 13:29 Dose: 3 ml Aripiprazole (Abilify) 2 mg PO HS [facility] Last Admin: 03/31/18 21:02 Dose: 2 mg Aspirin (Ecotrin) 81 mg PO DAILY [facility] Last Admin: 03/31/18 08:55 Dose: 81 mg Atorvastatin Calcium (Lipitor) 20 mg PO DAILY@2200 [facility] Last Admin: 03/31/18 21:02 Dose: 20 mg Benzocaine/Menthol (Cepacol Sore Throat) 1 kaitlyn PO Q2 PRN PRN Reason: Sore Throat Benztropine Mesylate (Cogentin) 1 mg PO Q12 [facility] Last Admin: 03/31/18 20:56 Dose: 1 mg Bortezomib ([facility]cade) 3.[facility] Last Admin: 03/29/18 16:05 Dose: Not Given Buspirone HCl (Buspar) 15 mg PO Q12 [facility] Last Admin: 03/31/18 20:55 Dose: 15 mg Calcitriol (Rocaltrol) 0.25 mcg PO DAILY [facility] Last Admin: 03/31/18 17:57 Dose: 0.25 mcg Calcium Carbonate (Oscal) 500 mg PO BID [facility] Last Admin: 03/31/18 17:55 Dose: 500 mg Cholecalciferol (Vitamin D) 1,000 intlu PO DAILY [facility] Last Admin: 03/31/18 09:05 Dose: 1,000 intlu Clonazepam (Klonopin) 0.5 mg PO DAILY PRN PRN Reason: Anxiety Dextrose (Dextrose 50% Inj) 0 ml IV STAT PRN; Protocol PRN Reason: Hypoglycemia Protocol Dextrose (Glutose 15) 0 gm PO ONCE PRN; Protocol PRN Reason: Hypoglycemia Protocol Duloxetine HCl (Cymbalta) 60 mg PO DAILY [facility] Last Admin: 03/31/18 08:55 Dose: 60 mg Enalapril Maleate (Vasotec) 5 mg PO DAILY [facility] Enoxaparin Sodium (Lovenox) 40 mg SC DAILY [facility]; Protocol Last Admin: 03/31/18 08:58 Dose: 40 mg Escitalopram Oxalate (Lexapro) 10 mg PO DAILY [facility] Last Admin: 03/31/18 08:56 Dose: 10 mg Famotidine (Pepcid) 40 mg IVP DAILY [facility] Last Admin: 03/31/18 09:02 Dose: 40 mg Ferrous Sulfate (Feosol) 325 mg PO DAILY [facility] Last Admin: 03/25/18 08:45 Dose: 325 mg Gabapentin (Neurontin) 100 mg PO TID [facility] Last Admin: 03/31/18 18:02 Dose: 100 mg Glucagon (Glucagen Diagnostic Kit) 0 mg IM STAT PRN; Protocol PRN Reason: Hypoglycemia Protocol Home Med (Riociguat [Adempas]) 2 mg PO TID [facility] Last Admin: 03/31/18 17:55 Dose: 2 mg Hydrocortisone (Cortef) 10 mg PO [facility] Last Admin: 03/31/18 21:02 Dose: 10 mg Dextrose/Sodium Chloride (Dextrose 5%/0.9% Ns 1000 Ml) 1,000 mls @ 80 mls/hr IV .[id number] [facility] Stop: 04/01/18 08:00 Last Admin: 03/31/18 20:00 Dose: 80 mls/hr Insulin Detemir (Levemir) 10 units SC [facility] Last Admin: 03/31/18 23:01 Dose: Not Given Insulin Human Lispro (Humalog) 5 units SC TID [facility] Last Admin: 03/24/18 09:12 Dose: Not Given Insulin Human Lispro (Humalog) 0 units SC ACCU-CHECK [facility]; Protocol Last Admin: 04/01/18 06:32 Dose: Not Given Levothyroxine Sodium (Synthroid) 100 mcg PO DAILY@0630 [facility] Last Admin: 04/01/18 06:07 Dose: 100 mcg Magnesium Oxide (Mag-Ox) 400 mg PO BID [facility] Last Admin: 03/31/18 17:54 Dose: 400 mg Metformin HCl (Glucophage) 500 mg PO BID [facility] Last Admin: 03/24/18 09:07 Dose: 500 mg Torsemide (Demadex) 20 mg PO DAILY [facility] - Labs Labs: 04/01/18 04:30 04/01/18 04:30 PT 11.8 Seconds (9.8-13.1) 03/23/18 17:02 INR 1.0 03/23/18 17:02 APTT 29.2 Seconds (25.6-37.1) 03/23/18 17:02 - Constitutional Appears: No Acute Distress - Head Exam Head Exam: NORMAL INSPECTION - Eye Exam Eye Exam: Normal appearance - ENT Exam ENT Exam: Mucous Membranes Moist - Respiratory Exam Respiratory Exam: Clear to Ausculation Bilateral, Rales (BL mid lung bases (stable)). absent: Wheezes - Cardiovascular Exam Cardiovascular Exam: REGULAR RHYTHM - GI/Abdominal Exam GI & Abdominal Exam: Soft, Normal Bowel Sounds. 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 Pt has had many metabolic derangements that are likely contributing to her AMS. Her electrolytes are now WNL. Patients mental status is improving. She is awake alert and oriented, she continues to have visual/auditory hallucinations that are benign and are baseline. She has +ESBL in urine, but is afebrile without leukocytosis. Likely contaminated as per ID, will get repeat Ucx with straight cath. Blood cultures have been negative. Repeat Ucx pending. Patient tolerated liquid diet and has been having soft stools in rectal tube. Will advance diet to regular today. PLAN: >+ESBL in urine culture --afebrile without leukocytosis --+ESBL carrier? --merrem x 1 given --ID consult appreciated, to repeat ua and ucx, hold off on abx for now. >Altered Mental Status /Delirium --improved to baseline --secondary to delirium, metabolic derangements have resolved, psych meds resumed --Head CT negative for acute findings, repeat pending --thought to be secondary to metabolic derangements ( hypercalcemia, hypomagnesemia, dehydration)--resolved >Ileus --resolving, will advance today and monitor. --stools passing per rectal tube. --tolerating feeds. NG out this afternoon. Metabolic Derangements: >Hypercalcemia -- resolved >Hypomagnesemia --chronic, improved --IV and PO mag discontinued --Discontinued PPI as this can cause hypoMG >Hypophosphatemia --phos: 2.0 --Continue to monitor > Hypocalcemia --Chronic --Ca 7.1, with Albumin correction= 8.3 --Likely due to MM, restarted Calcitriol, Ca Co3, and Vitamin D yesterday --F/U PTH >Deconditioning --Likely from remaining immobile during acute illness --PT eval: recommended subacute rehab for continued PT --SW referral for placement >IDDM --Metformin held, Meal time Bolus held, put on low sliding scale and reduced basal insulin given pt's poor intake and low sugars --Accuchecks --Hypoglycemic protocol --ISS, low dose >Multiple Myeloma --Heme/Onc on board: Dr. Vilchis --Bortezomib on hold, will administer in outpatient setting >CHF/HTN --Echocardiogram on 08/25/17 showed LVEF 60-65%, grade I abnormal relaxation pattern. --Possibly diastolic dysfunction-CHF --Holding torsemide for now as per nephro; will monitor volume status >COPD/Pulm HTN --Resumed home meds >DVT Prophylaxis --Lovenox 40mg SC daily --SCDs Case d/w Dr. Neumann.
[2018-04-01] MEDS: Magnesium Oxide 400 mg Tab UD PO SCH ×2 (09:54→17:06)
[2018-04-01] MEDS: Cholecalciferol 1,000 INTLU TAB PO SCH (09:55)
[2018-04-01] MEDS: Enoxaparin 40 mg Syringe SC SCH (09:56)
[2018-04-01] MEDS: RIOCIGUAT 2 MG PO SCH ×3 (09:57→17:06)
--- NOTE | 2018-04-01 10:05 | CP.PCM.PN ---
Subjective - Date & Time of Evaluation Date of Evaluation: 04/01/18 Time of Evaluation: 10:05 - Subjective Subjective: ID Note- Patient seen and examined today. Patient denies any abdominal or pelvic pain, denies any dysurea. denies any fever or chills. has some dry cough. NO NGT today and as per pt's daughter pt. eating food today adn so far has tolerated it. Objective - Vital Signs/Intake and Output Vital Signs (last 24 hours): Temp Pulse Resp BP Pulse Ox 97.9 F 91 H 18 102/57 L 100 04/01/18 08:11 04/01/18 08:11 04/01/18 08:11 04/01/18 08:11 04/01/18 08:11 - Medications Medications: Current Medications Albuterol/Ipratropium (Duoneb 3 Mg/0.5 Mg (3 Ml) Ud) 3 ml INH RQ6 PRN PRN Reason: Shortness of Breath Last Admin: 03/28/18 13:29 Dose: 3 ml Aripiprazole (Abilify) 2 mg PO HS [facility] Last Admin: 03/31/18 21:02 Dose: 2 mg Aspirin (Ecotrin) 81 mg PO DAILY [facility] Last Admin: 03/31/18 08:55 Dose: 81 mg Atorvastatin Calcium (Lipitor) 20 mg PO DAILY@2200 [facility] Last Admin: 03/31/18 21:02 Dose: 20 mg Benzocaine/Menthol (Cepacol Sore Throat) 1 kaitlyn PO Q2 PRN PRN Reason: Sore Throat Benztropine Mesylate (Cogentin) 1 mg PO Q12 [facility] Last Admin: 03/31/18 20:56 Dose: 1 mg Bortezomib (Velcade) 3.5 mg IVP [facility] Last Admin: 03/29/18 16:05 Dose: Not Given Buspirone HCl (Buspar) 15 mg PO Q12 [facility] Last Admin: 03/31/18 20:55 Dose: 15 mg Calcitriol (Rocaltrol) 0.25 mcg PO DAILY [facility] Last Admin: 03/31/18 17:57 Dose: 0.25 mcg Calcium Carbonate (Oscal) 500 mg PO BID [facility] Last Admin: 03/31/18 17:55 Dose: 500 mg Cholecalciferol (Vitamin D) 1,000 intlu PO DAILY [facility] Last Admin: 03/31/18 09:05 Dose: 1,000 intlu Clonazepam (Klonopin) 0.5 mg PO DAILY PRN PRN Reason: Anxiety Dextrose (Dextrose 50% Inj) 0 ml IV STAT PRN; Protocol PRN Reason: Hypoglycemia Protocol Dextrose (Glutose 15) 0 gm PO ONCE PRN; Protocol PRN Reason: Hypoglycemia Protocol Duloxetine HCl (Cymbalta) 60 mg PO DAILY [facility] Last Admin: 03/31/18 08:55 Dose: 60 mg Enalapril Maleate (Vasotec) 5 mg PO DAILY [facility] Enoxaparin Sodium (Lovenox) 40 mg SC DAILY [facility]; Protocol Last Admin: 03/31/18 08:58 Dose: 40 mg Escitalopram Oxalate (Lexapro) 10 mg PO DAILY [facility] Last Admin: 03/31/18 08:56 Dose: 10 mg Famotidine (Pepcid) 40 mg IVP DAILY [facility] Last Admin: 03/31/18 09:02 Dose: 40 mg Ferrous Sulfate (Feosol) 325 mg PO DAILY [facility] Last Admin: 03/25/18 08:45 Dose: 325 mg Gabapentin (Neurontin) 100 mg PO TID [facility] Last Admin: 03/31/18 18:02 Dose: 100 mg Glucagon (Glucagen Diagnostic Kit) 0 mg IM STAT PRN; Protocol PRN Reason: Hypoglycemia Protocol Home Med (Riociguat [Adempas]) 2 mg PO TID [facility] Last Admin: 03/31/18 17:55 Dose: 2 mg Hydrocortisone (Cortef) 10 mg PO [facility] Last Admin: 03/31/18 21:02 Dose: 10 mg Insulin Detemir (Levemir) 10 units SC [facility] Last Admin: 03/31/18 23:01 Dose: Not Given Insulin Human Lispro (Humalog) 5 units SC TID [facility] Last Admin: 03/24/18 09:12 Dose: Not Given Insulin Human Lispro (Humalog) 0 units SC ACCU-CHECK [facility]; Protocol Last Admin: 04/01/18 06:32 Dose: Not Given Levothyroxine Sodium (Synthroid) 100 mcg PO DAILY@0630 [facility] Last Admin: 04/01/18 06:07 Dose: 100 mcg Magnesium Oxide (Mag-Ox) 400 mg PO BID [facility] Last Admin: 03/31/18 17:54 Dose: 400 mg Metformin HCl (Glucophage) 500 mg PO BID [facility] Last Admin: 03/24/18 09:07 Dose: 500 mg Torsemide (Demadex) 20 mg PO DAILY [facility] - Labs Labs: - Additional Findings Additional findings: - Constitutional Appears: No Acute Distress - Head Exam Head Exam: ATRAUMATIC - Eye Exam Eye Exam: EOMI - ENT Exam ENT Exam: Normal Oropharynx Additional comments: has NGT in place draining yellow fluid - Neck Exam Neck exam: Positive for: Full Rom - Respiratory Exam Respiratory Exam: NORMAL BREATHING PATTERN Additional comments: good breath sounds b/l no wheezing - Cardiovascular Exam Cardiovascular Exam: RRR, +S1, +S2 - GI/Abdominal Exam GI & Abdominal Exam: Normal Bowel Sounds, Soft Additional comments: NT, ND No CVA tenderness B/L - Extremities Exam Extremities exam: Positive for: normal inspection - Neurological Exam Neurological exam: Alert, Oriented x 3 Laboratory Results - last 72 hr 03/27/18 03/29/18 03/29/18 19:34 15:46 21:24 WBC RBC Hgb Hct MCV MCH MCHC RDW Plt Count Sodium Potassium Chloride Carbon Dioxide Anion Gap BUN Creatinine Est GFR ( Amer) Est GFR (Non-Af Amer) POC Glucose (mg/dL) 104 70 Random Glucose Calcium Phosphorus Magnesium Total Bilirubin AST ALT Alkaline Phosphatase Total Protein Albumin Globulin Albumin/Globulin Ratio PTH w/Ion &Tot Calcium Urine Color Urine Clarity Urine pH Ur Specific [place] Urine Protein Urine Glucose (UA) Urine Ketones Urine Blood Urine Nitrate Urine Bilirubin Urine Urobilinogen Ur Leukocyte Esterase Urine RBC (Auto) Urine WBC Clumps (Auto) Urine Microscopic WBC Urine Bacteria Ur Random Sodium Stool Leukocytes, Qual Negative 03/29/18 03/29/18 03/30/18 22:26 22:26 04:35 WBC 4.0 L RBC 3.58 L Hgb 10.4 L Hct 31.6 L MCV 88.1 MCH 29.1 MCHC 33.1 RDW 18.0 H Plt Count 178 Sodium Potassium Chloride Carbon Dioxide Anion Gap BUN Creatinine Est GFR ( Amer) Est GFR (Non-Af Amer) POC Glucose (mg/dL) 87 87 Random Glucose Calcium Phosphorus Magnesium Total Bilirubin AST ALT Alkaline Phosphatase Total Protein Albumin Globulin Albumin/Globulin Ratio PTH w/Ion &Tot Calcium Urine Color Urine Clarity Urine pH Ur Specific [place] Urine Protein Urine Glucose (UA) Urine Ketones Urine Blood Urine Nitrate Urine Bilirubin Urine Urobilinogen Ur Leukocyte Esterase Urine RBC (Auto) Urine WBC Clumps (Auto) Urine Microscopic WBC Urine Bacteria Ur Random Sodium Stool Leukocytes, Qual 03/30/18 03/30/18 03/30/18 04:35 05:30 11:12 WBC RBC Hgb Hct MCV MCH MCHC RDW Plt Count Sodium 147 Potassium 4.3 Chloride 121 H Carbon Dioxide 22 Anion Gap 8 L BUN 20 H Creatinine 0.9 Est GFR ( Amer) > 60 Est GFR (Non-Af Amer) > 60 POC Glucose (mg/dL) 96 89 Random Glucose 117 H Calcium 8.0 L Phosphorus 1.1 L Magnesium 1.8 Total Bilirubin 0.4 AST 32 ALT 29 Alkaline Phosphatase 92 Total Protein 6.1 L Albumin 2.8 L Globulin 3.3 Albumin/Globulin Ratio 0.9 L PTH w/Ion &Tot Calcium Urine Color Urine Clarity Urine pH Ur Specific [place] Urine Protein Urine Glucose (UA) Urine Ketones Urine Blood Urine Nitrate Urine Bilirubin Urine Urobilinogen Ur Leukocyte Esterase Urine RBC (Auto) Urine WBC Clumps (Auto) Urine Microscopic WBC Urine Bacteria Ur Random Sodium Stool Leukocytes, Qual 03/30/18 03/30/18 03/30/18 16:21 18:38 23:11 WBC RBC Hgb Hct MCV MCH MCHC RDW Plt Count Sodium Potassium Chloride Carbon Dioxide Anion Gap BUN Creatinine Est GFR ( Amer) Est GFR (Non-Af Amer) POC Glucose (mg/dL) 88 130 H Random Glucose Calcium Phosphorus Magnesium Total Bilirubin AST ALT Alkaline Phosphatase Total Protein Albumin Globulin Albumin/Globulin Ratio PTH w/Ion &Tot Calcium Urine Color Urine Clarity Urine pH Ur Specific [place] Urine Protein Urine Glucose (UA) Urine Ketones Urine Blood Urine Nitrate Urine Bilirubin Urine Urobilinogen Ur Leukocyte Esterase Urine RBC (Auto) Urine WBC Clumps (Auto) Urine Microscopic WBC Urine Bacteria Ur Random Sodium 171 Stool Leukocytes, Qual 03/31/18 03/31/18 03/31/18 05:15 05:15 05:36 WBC 5.5 RBC 3.51 L Hgb 9.9 L Hct 31.0 L MCV 88.2 MCH 28.1 MCHC 31.9 L RDW 18.5 H Plt Count 171 Sodium 145 Potassium 4.3 Chloride 118 H Carbon Dioxide 24 Anion Gap 7 L BUN 13 Creatinine 0.8 Est GFR ( Amer) > 60 Est GFR (Non-Af Amer) > 60 POC Glucose (mg/dL) 105 Random Glucose 108 H Calcium 7.3 L Phosphorus 2.3 L Magnesium 1.4 L Total Bilirubin AST ALT Alkaline Phosphatase Total Protein Albumin Globulin Albumin/Globulin Ratio PTH w/Ion &Tot Calcium Urine Color Urine Clarity Urine pH Ur Specific [place] Urine Protein Urine Glucose (UA) Urine Ketones Urine Blood Urine Nitrate Urine Bilirubin Urine Urobilinogen Ur Leukocyte Esterase Urine RBC (Auto) Urine WBC Clumps (Auto) Urine Microscopic WBC Urine Bacteria Ur Random Sodium Stool Leukocytes, Qual 03/31/18 03/31/18 03/31/18 08:50 09:22 11:02 WBC RBC Hgb Hct MCV MCH MCHC RDW Plt Count Sodium Potassium Chloride Carbon Dioxide Anion Gap BUN Creatinine Est GFR ( Amer) Est GFR (Non-Af Amer) POC Glucose (mg/dL) 79 Random Glucose Calcium Phosphorus Magnesium Total Bilirubin AST ALT Alkaline Phosphatase Total Protein Albumin 2.6 L Globulin Albumin/Globulin Ratio PTH w/Ion &Tot Calcium 105 H Urine Color Urine Clarity Urine pH Ur Specific [place] Urine Protein Urine Glucose (UA) Urine Ketones Urine Blood Urine Nitrate Urine Bilirubin Urine Urobilinogen Ur Leukocyte Esterase Urine RBC (Auto) Urine WBC Clumps (Auto) Urine Microscopic WBC Urine Bacteria Ur Random Sodium Stool Leukocytes, Qual 03/31/18 03/31/18 03/31/18 16:24 20:42 21:08 WBC RBC Hgb Hct MCV MCH MCHC RDW Plt Count Sodium Potassium Chloride Carbon Dioxide Anion Gap BUN Creatinine Est GFR ( Amer) Est GFR (Non-Af Amer) POC Glucose (mg/dL) 73 107 Random Glucose Calcium Phosphorus Magnesium Total Bilirubin AST ALT Alkaline Phosphatase Total Protein Albumin Globulin Albumin/Globulin Ratio PTH w/Ion &Tot Calcium Urine Color Yellow Urine Clarity Turbid Urine pH 6.0 Ur Specific [place] 1.012 Urine Protein 30 Urine Glucose (UA) Neg Urine Ketones Negative Urine Blood Small Urine Nitrate Positive H Urine Bilirubin Negative Urine Urobilinogen 0.2-1.0 Ur Leukocyte Esterase Large Urine RBC (Auto) 19 H Urine WBC Clumps (Auto) Many H Urine Microscopic WBC 970 H Urine Bacteria Few H Ur Random Sodium Stool Leukocytes, Qual 04/01/18 04/01/18 04/01/18 04:30 04:30 06:30 WBC 6.0 RBC 3.60 L Hgb 10.1 L Hct 31.6 L MCV 87.8 MCH 28.2 MCHC 32.1 L RDW 18.5 H Plt Count 176 Sodium 138 Potassium 4.1 Chloride 112 H Carbon Dioxide 22 Anion Gap 8 L BUN 11 Creatinine 0.7 Est GFR ( Amer) > 60 Est GFR (Non-Af Amer) > 60 POC Glucose (mg/dL) 147 H Random Glucose 155 H Calcium 7.1 L Phosphorus 2.3 L Magnesium 1.6 Total Bilirubin 0.2 AST 23 ALT 18 Alkaline Phosphatase 87 Total Protein 5.7 L Albumin 2.5 L Globulin 3.2 Albumin/Globulin Ratio 0.8 L PTH w/Ion &Tot Calcium Urine Color Urine Clarity Urine pH Ur Specific [place] Urine Protein Urine Glucose (UA) Urine Ketones Urine Blood Urine Nitrate Urine Bilirubin Urine Urobilinogen Ur Leukocyte Esterase Urine RBC (Auto) Urine WBC Clumps (Auto) Urine Microscopic WBC Urine Bacteria Ur Random Sodium Stool Leukocytes, Qual 04/01/18 11:00 WBC RBC Hgb Hct MCV MCH MCHC RDW Plt Count Sodium Potassium Chloride Carbon Dioxide Anion Gap BUN Creatinine Est GFR ( Amer) Est GFR (Non-Af Amer) POC Glucose (mg/dL) 197 H Random Glucose Calcium Phosphorus Magnesium Total Bilirubin AST ALT Alkaline Phosphatase Total Protein Albumin Globulin Albumin/Globulin Ratio PTH w/Ion &Tot Calcium Urine Color Urine Clarity Urine pH Ur Specific [place] Urine Protein Urine Glucose (UA) Urine Ketones Urine Blood Urine Nitrate Urine Bilirubin Urine Urobilinogen Ur Leukocyte Esterase Urine RBC (Auto) Urine WBC Clumps (Auto) Urine Microscopic WBC Urine Bacteria Ur Random Sodium Stool Leukocytes, Qual Microbiology 03/28/18 11:30 Blood Blood Culture - Preliminary NO GROWTH AFTER 4 DAYS 03/28/18 11:30 Blood Blood Culture - Preliminary NO GROWTH AFTER 4 DAYS 03/31/18 10:49 Blood Blood Culture - Preliminary NO GROWTH AFTER 24 HOURS 03/31/18 10:49 Blood Blood Culture - Preliminary NO GROWTH AFTER 24 HOURS 03/28/18 17:36 Urine,Catheterized Urine Culture - Final Escherichia Coli Assessment and Plan (1) Hypercalcemia Status: Resolved (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 clinically seems to be better. she has remained afebrile normal wbc count blood cx- neg Urine cx from - esbl e,coli but UA from 03/23/2018- negative UA done yesterday is positive, however, the nurse does not know if it was clean catch stool c.diff- neg x 2 plan- advise to check straight cath UA today. the ESBl in urine cx could have been colonization as pt. has negative original UA and no UTI symptoms. hold off on any antibiotics pending repeat UA result today. all above d/w patient and her daughter and they verbalize full understanding of this and agree with this plan. also d/w .
[2018-04-01] MEDS: Benzocaine/Menthol (Cepacol) Lozenge PO PRN (14:41)
[2018-04-01] MEDS: Proshield Plus GEL TOP PRN (17:06)
[2018-04-01 18:50] LABS: SQUAMOUS EPITHIAL < 1 /hpf (0-5); URINE BACTERIA RARE (<OCC); URINE BILIRUBIN NEGATIVE (NEGATIVE); URINE BLOOD SMALL (NEGATIVE); URINE CLARITY CLOUDY (Clear); URINE COLOR STRAW (YELLOW); URINE GLUCOSE (UA) NEG (NEGATIVE); URINE HYALINE CAST 0-2 /hpf (0-2); URINE LEUKOCYTE ESTERASE MOD Leu/uL (Negative); URINE PROTEIN NEGATIVE (NEGATIVE); URINE UROBILINOGEN 0.2-1.0 mg/dL (0.2-1.0); WBC CLUMPS MOD /hpf
[2018-04-01] MEDS: Insulin Detemir 100 Units/ml Inj SC SCH (22:21)
--- NOTE | 2018-04-01 22:33 | CP.PCM.PN ---
Subjective - Date & Time of Evaluation Date of Evaluation: 04/01/18 Time of Evaluation: 12:30 - Subjective Subjective: Patient tolerating liquid diet; no breathing issues reported; having frequent BM; Objective - Vital Signs/Intake and Output Vital Signs (last 24 hours): Temp Pulse Resp BP Pulse Ox 98.2 F 99 H 20 91/53 L 98 04/01/18 19:42 04/01/18 19:42 04/01/18 19:42 04/01/18 19:42 04/01/18 19:42 - Medications Medications: Current Medications Albuterol/Ipratropium (Duoneb 3 Mg/0.5 Mg (3 Ml) Ud) 3 ml INH RQ6 PRN PRN Reason: Shortness of Breath Last Admin: 03/28/18 13:29 Dose: 3 ml Aripiprazole (Abilify) 2 mg PO HS [facility] Last Admin: 04/01/18 21:11 Dose: 2 mg Aspirin (Ecotrin) 81 mg PO DAILY [facility] Last Admin: 04/01/18 09:57 Dose: 81 mg Atorvastatin Calcium (Lipitor) 20 mg PO DAILY@2200 [facility] Last Admin: 04/01/18 21:11 Dose: 20 mg Benzocaine/Menthol (Cepacol Sore Throat) 1 kaitlyn PO Q2 PRN PRN Reason: Sore Throat Last Admin: 04/01/18 14:41 Dose: 1 kaitlyn Benztropine Mesylate (Cogentin) 1 mg PO Q12 [facility] Last Admin: 04/01/18 21:11 Dose: 1 mg Bortezomib (Velcade) 3.5 mg IVP [facility] Last Admin: 03/29/18 16:05 Dose: Not Given Buspirone HCl (Buspar) 15 mg PO Q12 [facility] Last Admin: 04/01/18 21:12 Dose: 15 mg Calcitriol (Rocaltrol) 0.25 mcg PO DAILY [facility] Last Admin: 04/01/18 09:56 Dose: 0.25 mcg Calcium Carbonate (Oscal) 500 mg PO BID [facility] Last Admin: 04/01/18 17:07 Dose: 500 mg Cholecalciferol (Vitamin D) 1,000 intlu PO DAILY [facility] Last Admin: 04/01/18 09:55 Dose: 1,000 intlu Clonazepam (Klonopin) 0.5 mg PO DAILY PRN PRN Reason: Anxiety Dextrose (Dextrose 50% Inj) 0 ml IV STAT PRN; Protocol PRN Reason: Hypoglycemia Protocol Dextrose (Glutose 15) 0 gm PO ONCE PRN; Protocol PRN Reason: Hypoglycemia Protocol Dimethicone (Proshield Plus Skin Protectant) 1 applic TOP Q8 PRN PRN Reason: Other Last Admin: 04/01/18 17:06 Dose: 1 applic Duloxetine HCl (Cymbalta) 60 mg PO DAILY [facility] Last Admin: 04/01/18 09:55 Dose: 60 mg Enalapril Maleate (Vasotec) 5 mg PO DAILY [facility] Enoxaparin Sodium (Lovenox) 40 mg SC DAILY [facility]; Protocol Last Admin: 04/01/18 09:56 Dose: 40 mg Escitalopram Oxalate (Lexapro) 10 mg PO DAILY [facility] Last Admin: 04/01/18 09:55 Dose: 10 mg Famotidine (Pepcid) 40 mg IVP DAILY [facility] Last Admin: 04/01/18 10:07 Dose: 40 mg Ferrous Sulfate (Feosol) 325 mg PO DAILY [facility] Last Admin: 03/25/18 08:45 Dose: 325 mg Gabapentin (Neurontin) 100 mg PO TID [facility] Last Admin: 04/01/18 17:07 Dose: 100 mg Glucagon (Glucagen Diagnostic Kit) 0 mg IM STAT PRN; Protocol PRN Reason: Hypoglycemia Protocol Home Med (Riociguat [Adempas]) 2 mg PO TID [facility] Last Admin: 04/01/18 17:06 Dose: 2 mg Hydrocortisone (Cortef) 10 mg PO [facility] Last Admin: 04/01/18 21:11 Dose: 10 mg Insulin Detemir (Levemir) 10 units SC [facility] Last Admin: 04/01/18 22:21 Dose: Not Given Insulin Human Lispro (Humalog) 5 units SC TID [facility] Last Admin: 03/24/18 09:12 Dose: Not Given Insulin Human Lispro (Humalog) 0 units SC ACCU-CHECK [facility]; Protocol Last Admin: 04/01/18 22:20 Dose: Not Given Levothyroxine Sodium (Synthroid) 100 mcg PO DAILY@0630 [facility] Last Admin: 04/01/18 06:07 Dose: 100 mcg Magnesium Oxide (Mag-Ox) 400 mg PO BID [facility] Last Admin: 04/01/18 17:06 Dose: 400 mg Metformin HCl (Glucophage) 500 mg PO BID [facility] Last Admin: 03/24/18 09:07 Dose: 500 mg Torsemide (Demadex) 20 mg PO DAILY [facility] Last Admin: 04/01/18 09:57 Dose: 20 mg - Labs Labs: 04/01/18 04:30 04/01/18 04:30 PT 11.8 Seconds (9.8-13.1) 03/23/18 17:02 INR 1.0 03/23/18 17:02 APTT 29.2 Seconds (25.6-37.1) 03/23/18 17:02 - Constitutional Appears: Non-toxic, No Acute Distress - Eye Exam Eye Exam: Normal appearance - Respiratory Exam Respiratory Exam: Clear to Ausculation Bilateral. absent: Respiratory Distress - Cardiovascular Exam Cardiovascular Exam: RRR, +S1, +S2 - GI/Abdominal Exam GI & Abdominal Exam: Soft. absent: Distended, Tenderness - Extremities Exam Additional comments: no leg edema; - Neurological Exam Neurological Exam: Alert, Awake - Psychiatric Exam Psychiatric exam: Normal Affect. absent: Agitated - Skin Skin Exam: Warm. absent: Cyanosis Assessment and Plan (1) Electrolyte abnormality Assessment & Plan: Low/normal Ca; started on calcitriol 0.25 mcg daily and calcium supplementation, continue; repeat PTH drawn just before calcitriol started was appropriately elevated in the setting of hypocalcemia; mildly low phos, should improve now that on PO diet; -continue to monitor periodically; Status: Acute (2) Hypercalcemia Status: Resolved (3) Hypomagnesemia Assessment & Plan: continue PO mag ox; Status: Chronic (4) CHF (congestive heart failure) Assessment & Plan: With diastolic dysfunction and pulm htn; currently on IVF, should stop now that patient having PO intake; recommend to start back diuretics slowly; Status: Chronic (5) Acute kidney injury Status: Acute
[2018-04-02] MEDS: Levothyroxine 100 MCG TAB PO SCH (06:06)
[2018-04-02 06:12] LABS: MEAN CELL VOLUME 87.9 fl (81.0-99.0); MEAN CORPUSCULAR HEMOGLOBIN 28.4 pg (27.0-31.0); MEAN CORPUSCULAR HGB CONC 32.3 g/dL (33.0-37.0); RBC 3.51 Mil/uL (3.80-5.20); RED CELL DISTRIBUTION WIDTH 18.3 % (11.5-14.5); WHITE BLOOD COUNT 5.2 K/uL (4.8-10.8)
[2018-04-02] MEDS: Insulin Lispro (humaLOG) 100 Units/ml Inj SC SCH ×4 (06:31→22:50)
[2018-04-02 06:52] LABS: BLOOD UREA NITROGEN 10 mg/dl (7-17); CALCIUM 7.2 mg/dL (8.4-10.2); GFR NON-AFRICAN AMERICAN > 60
[2018-04-02] MEDS ORDERED: Magnesium Sulfate 2 gm/50 ml 2 GM/50 ML BAG IVPB ONE ×2 (08:00→08:45)
--- NOTE | 2018-04-02 08:47 | CP.PCM.PN ---
Subjective - Date & Time of Evaluation Date of Evaluation: 04/02/18 Time of Evaluation: 08:00 - Subjective Subjective: Pt seen and examined this morning. Reports that she ate most of her dinner last night but cannot remember too well. Denies n/v/abdominal pain, dysuria. Still having diarrhea as per RN. Ucx still pending. UA negative for nitrates or LES. Objective - Vital Signs/Intake and Output Vital Signs (last 24 hours): Temp Pulse Resp BP Pulse Ox 97.6 F 88 18 99/54 L 100 04/02/18 08:22 04/02/18 08:22 04/02/18 08:22 04/02/18 08:22 04/02/18 08:22 - Medications Medications: Current Medications Albuterol/Ipratropium (Duoneb 3 Mg/0.5 Mg (3 Ml) Ud) 3 ml INH RQ6 PRN PRN Reason: Shortness of Breath Last Admin: 03/28/18 13:29 Dose: 3 ml Aripiprazole (Abilify) 2 mg PO HS [facility] Last Admin: 04/01/18 21:11 Dose: 2 mg Aspirin (Ecotrin) 81 mg PO DAILY [facility] Last Admin: 04/01/18 09:57 Dose: 81 mg Atorvastatin Calcium (Lipitor) 20 mg PO DAILY@2200 [facility] Last Admin: 04/01/18 21:11 Dose: 20 mg Benzocaine/Menthol (Cepacol Sore Throat) 1 kaitlyn PO Q2 PRN PRN Reason: Sore Throat Last Admin: 04/01/18 14:41 Dose: 1 kaitlyn Benztropine Mesylate (Cogentin) 1 mg PO Q12 [facility] Last Admin: 04/01/18 21:11 Dose: 1 mg Bortezomib (Velcade) 3.5 mg IVP TUTH [facility] Last Admin: 03/29/18 16:05 Dose: Not Given Buspirone HCl (Buspar) 15 mg PO Q12 [facility] Last Admin: 04/01/18 21:12 Dose: 15 mg Calcitriol (Rocaltrol) 0.25 mcg PO DAILY [facility] Last Admin: 04/01/18 09:56 Dose: 0.25 mcg Calcium Carbonate (Oscal) 500 mg PO BID [facility] Last Admin: 04/01/18 17:07 Dose: 500 mg Cholecalciferol (Vitamin D) 1,000 intlu PO DAILY [facility] Last Admin: 04/01/18 09:55 Dose: 1,000 intlu Clonazepam (Klonopin) 0.5 mg PO DAILY PRN PRN Reason: Anxiety Dextrose (Dextrose 50% Inj) 0 ml IV STAT PRN; Protocol PRN Reason: Hypoglycemia Protocol Dextrose (Glutose 15) 0 gm PO ONCE PRN; Protocol PRN Reason: Hypoglycemia Protocol Dimethicone (Proshield Plus Skin Protectant) 1 applic TOP Q8 PRN PRN Reason: Other Last Admin: 04/01/18 17:06 Dose: 1 applic Duloxetine HCl (Cymbalta) 60 mg PO DAILY [facility] Last Admin: 04/01/18 09:55 Dose: 60 mg Enalapril Maleate (Vasotec) 5 mg PO DAILY [facility] Enoxaparin Sodium (Lovenox) 40 mg SC DAILY [facility]; Protocol Last Admin: 04/01/18 09:56 Dose: 40 mg Escitalopram Oxalate (Lexapro) 10 mg PO DAILY [facility] Last Admin: 04/01/18 09:55 Dose: 10 mg Famotidine (Pepcid) 40 mg IVP DAILY [facility] Last Admin: 04/01/18 10:07 Dose: 40 mg Ferrous Sulfate (Feosol) 325 mg PO DAILY [facility] Last Admin: 03/25/18 08:45 Dose: 325 mg Gabapentin (Neurontin) 100 mg PO TID [facility] Last Admin: 04/01/18 17:07 Dose: 100 mg Glucagon (Glucagen Diagnostic Kit) 0 mg IM STAT PRN; Protocol PRN Reason: Hypoglycemia Protocol Home Med (Riociguat [Adempas]) 2 mg PO TID [facility] Last Admin: 04/01/18 17:06 Dose: 2 mg Hydrocortisone (Cortef) 10 mg PO [facility] Last Admin: 04/01/18 21:11 Dose: 10 mg Magnesium Sulfate (Magnesium Sulfate 2 Gm/50 Ml Water) 2 gm in 50 mls @ 25 mls/hr IVPB ONCE ONE Stop: 04/02/18 10:44 Insulin Detemir (Levemir) 10 units SC [facility] Last Admin: 04/01/18 22:21 Dose: Not Given Insulin Human Lispro (Humalog) 5 units SC TID [facility] Last Admin: 03/24/18 09:12 Dose: Not Given Insulin Human Lispro (Humalog) 0 units SC ACCU-CHECK [facility]; Protocol Last Admin: 04/02/18 06:31 Dose: Not Given Levothyroxine Sodium (Synthroid) 100 mcg PO DAILY@0630 [facility] Last Admin: 04/02/18 06:06 Dose: 100 mcg Magnesium Oxide (Mag-Ox) 400 mg PO BID [facility] Last Admin: 04/01/18 17:06 Dose: 400 mg Metformin HCl (Glucophage) 500 mg PO BID [facility] Last Admin: 03/24/18 09:07 Dose: 500 mg Torsemide (Demadex) 20 mg PO DAILY [facility] Last Admin: 04/01/18 09:57 Dose: 20 mg - Labs Labs: 04/02/18 04:30 04/02/18 04:30 PT 11.8 Seconds (9.8-13.1) 03/23/18 17:02 INR 1.0 03/23/18 17:02 APTT 29.2 Seconds (25.6-37.1) 03/23/18 17:02 - Constitutional Appears: No Acute Distress - Head Exam Head Exam: NORMAL INSPECTION - Eye Exam Eye Exam: Normal appearance - ENT Exam ENT Exam: Mucous Membranes Moist - Neck Exam Neck Exam: Full ROM - Respiratory Exam Respiratory Exam: Clear to Ausculation Bilateral. absent: Rales, Wheezes - Cardiovascular Exam Cardiovascular Exam: REGULAR RHYTHM, +S1, +S2 - GI/Abdominal Exam GI & Abdominal Exam: Soft, Normal Bowel Sounds. 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 Pt has had many metabolic derangements that are likely contributing to her AMS. Her electrolytes are now WNL. Patients mental status now at baseline. She is awake alert and oriented, she continues to have visual/auditory hallucinations that are benign and are baseline. She has +ESBL in urine, but is afebrile without leukocytosis. Likely contaminated as per ID, will get repeat Ucx with straight cath. Blood cultures have been negative. Repeat Ucx pending. Patient tolerated regular diet and has been having diarrhea. Stool Cx and lytes were sent yesterday. Pt will participate with PT today. Plan for TCU placement pending SW. PLAN: >+ESBL in urine culture --afebrile without leukocytosis --+ESBL carrier? --merrem x 1 given --ID consult appreciated, to repeat ua and ucx, hold off on abx for now. >Altered Mental Status /Delirium --Resolved, now at baseline --secondary to delirium, metabolic derangements have resolved, psych meds resumed --Head CT negative for acute findings, repeat normal --thought to be secondary to metabolic derangements ( hypercalcemia, hypomagnesemia, dehydration)--resolved >Ileus --resolving --S/P NG tube and rectal tube --Still watery diarrhea but has active bowel sounds and is tolerating regular diet --Encouraging participation with PT to promote bowel function Metabolic Derangements: >Hypercalcemia -- resolved >Hypomagnesemia --chronic, 1.2 today, repleted with 2gm IV Mag Sulfate --IV and PO mag discontinued --Discontinued PPI as this can cause hypoMG >Hypophosphatemia --phos: 2.3 --Continue to monitor > Hypocalcemia --Chronic --Ca 7.2, with Albumin correction= 8.3 --Likely due to MM, restarted Calcitriol, Ca Co3, and Vitamin D yesterday --PTH high 105, may have parathyroid dysfunction >Deconditioning --Likely from prolonged immobility during acute illness --PT eval: recommended subacute rehab for continued PT. Pt and family have decided on TCU. --SW referral for placement >IDDM --Metformin held, Meal time Bolus held, put on low sliding scale and reduced basal insulin given pt's poor intake and low sugars --Accuchecks --Hypoglycemic protocol --ISS, low dose >Multiple Myeloma --Heme/Onc on board: Dr. Viclhis --Bortezomib on hold, will administer in outpatient setting >CHF/HTN --Echocardiogram on 08/25/17 showed LVEF 60-65%, grade I abnormal relaxation pattern. --Possibly diastolic dysfunction-CHF --Holding torsemide for now as per nephro; will monitor volume status >COPD/Pulm HTN --Resumed home meds >DVT Prophylaxis --Lovenox 40mg SC daily --SCDs Case d/w
[2018-04-02] MEDS: Magnesium Oxide 400 mg Tab UD PO SCH ×2 (10:08→18:47)
[2018-04-02] MEDS: Enoxaparin 40 mg Syringe SC SCH (10:08)
[2018-04-02] MEDS: RIOCIGUAT 2 MG PO SCH ×3 (10:09→18:47)
[2018-04-02] MEDS: Benzocaine/Menthol (Cepacol) Lozenge PO PRN ×2 (10:12→15:32)
[2018-04-02] MEDS: Cholecalciferol 1,000 INTLU TAB PO SCH (10:12)
[2018-04-02] MEDS: Proshield Plus GEL TOP PRN (12:17)
--- NOTE | 2018-04-02 12:38 | CP.PCM.PN ---
Subjective - Date & Time of Evaluation Date of Evaluation: 04/02/18 Time of Evaluation: 12:38 - Subjective Subjective: ID Note- Pt. seen and examined today. Pt. in good spirits. denies any fever or chills, denies any abd pain, denies any dysurea. c/o some mid-epigastric discomfort after eating her food ( nurse notified and will notify her PCP). Objective - Vital Signs/Intake and Output Vital Signs (last 24 hours): Temp Pulse Resp BP Pulse Ox 97.6 F 88 18 99/54 L 100 04/02/18 08:22 04/02/18 08:22 04/02/18 08:22 04/02/18 08:22 04/02/18 08:22 - Medications Medications: Current Medications Albuterol/Ipratropium (Duoneb 3 Mg/0.5 Mg (3 Ml) Ud) 3 ml INH RQ6 PRN PRN Reason: Shortness of Breath Last Admin: 03/28/18 13:29 Dose: 3 ml Aripiprazole (Abilify) 2 mg PO HS [facility] Last Admin: 04/01/18 21:11 Dose: 2 mg Aspirin (Ecotrin) 81 mg PO DAILY [facility] Last Admin: 04/02/18 10:10 Dose: 81 mg Atorvastatin Calcium (Lipitor) 20 mg PO DAILY@2200 [facility] Last Admin: 04/01/18 21:11 Dose: 20 mg Benzocaine/Menthol (Cepacol Sore Throat) 1 kaitlyn PO Q2 PRN PRN Reason: Sore Throat Last Admin: 04/02/18 10:12 Dose: 1 kaitlyn Benztropine Mesylate (Cogentin) 1 mg PO Q12 [facility] Last Admin: 04/02/18 10:10 Dose: 1 mg Bortezomib (Velcade) 3.5 mg IVP TUTH [facility] Last Admin: 03/29/18 16:05 Dose: Not Given Buspirone HCl (Buspar) 15 mg PO Q12 [facility] Last Admin: 04/02/18 10:08 Dose: 15 mg Calcitriol (Rocaltrol) 0.25 mcg PO DAILY [facility] Last Admin: 04/02/18 10:08 Dose: 0.25 mcg Calcium Carbonate (Oscal) 500 mg PO BID [facility] Last Admin: 04/02/18 10:09 Dose: 500 mg Cholecalciferol (Vitamin D) 1,000 intlu PO DAILY [facility] Last Admin: 04/02/18 10:12 Dose: 1,000 intlu Clonazepam (Klonopin) 0.5 mg PO DAILY PRN PRN Reason: Anxiety Dextrose (Dextrose 50% Inj) 0 ml IV STAT PRN; Protocol PRN Reason: Hypoglycemia Protocol Dextrose (Glutose 15) 0 gm PO ONCE PRN; Protocol PRN Reason: Hypoglycemia Protocol Dimethicone (Proshield Plus Skin Protectant) 1 applic TOP Q8 PRN PRN Reason: Other Last Admin: 04/01/18 17:06 Dose: 1 applic Duloxetine HCl (Cymbalta) 60 mg PO DAILY [facility] Last Admin: 04/02/18 10:10 Dose: 60 mg Enalapril Maleate (Vasotec) 5 mg PO DAILY [facility] Enoxaparin Sodium (Lovenox) 40 mg SC DAILY [facility]; Protocol Last Admin: 04/02/18 10:08 Dose: 40 mg Escitalopram Oxalate (Lexapro) 10 mg PO DAILY [facility] Last Admin: 04/02/18 10:09 Dose: 10 mg Famotidine (Pepcid) 40 mg IVP DAILY [facility] Last Admin: 04/02/18 10:11 Dose: 40 mg Ferrous Sulfate (Feosol) 325 mg PO DAILY [facility] Last Admin: 03/25/18 08:45 Dose: 325 mg Gabapentin (Neurontin) 100 mg PO TID [facility] Last Admin: 04/02/18 10:08 Dose: 100 mg Glucagon (Glucagen Diagnostic Kit) 0 mg IM STAT PRN; Protocol PRN Reason: Hypoglycemia Protocol Home Med (Riociguat [Adempas]) 2 mg PO TID [facility] Last Admin: 04/02/18 10:09 Dose: 2 mg Hydrocortisone (Cortef) 10 mg PO HS [facility] Last Admin: 04/01/18 21:11 Dose: 10 mg Insulin Detemir (Levemir) [address] [facility] Last Admin: 04/01/18 22:21 Dose: Not Given Insulin Human Lispro (Humalog) 5 units SC TID [facility] Last Admin: 03/24/18 09:12 Dose: Not Given Insulin Human Lispro (Humalog) 0 units SC ACCU-CHECK [facility]; Protocol Last Admin: 04/02/18 06:31 Dose: Not Given Levothyroxine Sodium (Synthroid) 100 mcg PO DAILY@0630 [facility] Last Admin: 04/02/18 06:06 Dose: 100 mcg Magnesium Oxide (Mag-Ox) 400 mg PO BID [facility] Last Admin: 04/02/18 10:08 Dose: 400 mg Metformin HCl (Glucophage) 500 mg PO BID [facility] Last Admin: 03/24/18 09:07 Dose: 500 mg Torsemide (Demadex) 20 mg PO DAILY [facility] Last Admin: 04/01/18 09:57 Dose: 20 mg - Labs Labs: - Additional Findings Additional findings: - Constitutional Appears: No Acute Distress - Head Exam Head Exam: ATRAUMATIC - Eye Exam Eye Exam: EOMI - ENT Exam ENT Exam: Normal Oropharynx Additional comments: - Neck Exam Neck exam: Positive for: Full Rom - Respiratory Exam Respiratory Exam: NORMAL BREATHING PATTERN Additional comments: good breath sounds b/l no wheezing - Cardiovascular Exam Cardiovascular Exam: RRR, +S1, +S2 - GI/Abdominal Exam GI & Abdominal Exam: Normal Bowel Sounds, Soft Additional comments: NT, ND No CVA tenderness B/L - Extremities Exam Extremities exam: Positive for: normal inspection - Neurological Exam Neurological exam: Alert, Oriented x 3 Laboratory Results - last 72 hr 03/30/18 03/30/18 03/30/18 16:21 18:38 23:11 WBC RBC Hgb Hct MCV MCH MCHC RDW Plt Count Sodium Potassium Chloride Carbon Dioxide Anion Gap BUN Creatinine Est GFR ( Amer) Est GFR (Non-Af Amer) POC Glucose (mg/dL) 88 130 H Random Glucose Calcium Phosphorus Magnesium Total Bilirubin AST ALT Alkaline Phosphatase Total Protein Albumin Globulin Albumin/Globulin Ratio Calcium (PTH Intact) PTH w/Ion &Tot Calcium Urine Color Urine Clarity Urine pH Ur Specific [place] Urine Protein Urine Glucose (UA) Urine Ketones Urine Blood Urine Nitrate Urine Bilirubin Urine Urobilinogen Ur Leukocyte Esterase Urine RBC (Auto) Urine WBC Clumps (Auto) Urine Microscopic WBC Ur Squamous Epith Cells Urine Bacteria Hyaline Casts Ur Random Sodium 171 03/31/18 03/31/18 03/31/18 05:15 05:15 05:36 WBC 5.5 RBC 3.51 L Hgb 9.9 L Hct 31.0 L MCV 88.2 MCH 28.1 MCHC 31.9 L RDW 18.5 H Plt Count 171 Sodium 145 Potassium 4.3 Chloride 118 H Carbon Dioxide 24 Anion Gap 7 L BUN 13 Creatinine 0.8 Est GFR ( Amer) > 60 Est GFR (Non-Af Amer) > 60 POC Glucose (mg/dL) 105 Random Glucose 108 H Calcium 7.3 L Phosphorus 2.3 L Magnesium 1.4 L Total Bilirubin AST ALT Alkaline Phosphatase Total Protein Albumin Globulin Albumin/Globulin Ratio Calcium (PTH Intact) PTH w/Ion &Tot Calcium Urine Color Urine Clarity Urine pH Ur Specific [place] Urine Protein Urine Glucose (UA) Urine Ketones Urine Blood Urine Nitrate Urine Bilirubin Urine Urobilinogen Ur Leukocyte Esterase Urine RBC (Auto) Urine WBC Clumps (Auto) Urine Microscopic WBC Ur Squamous Epith Cells Urine Bacteria Hyaline Casts Ur Random Sodium 03/31/18 03/31/18 03/31/18 08:50 09:22 11:02 WBC RBC Hgb Hct MCV MCH MCHC RDW Plt Count Sodium Potassium Chloride Carbon Dioxide Anion Gap BUN Creatinine Est GFR ( Amer) Est GFR (Non-Af Amer) POC Glucose (mg/dL) 79 Random Glucose Calcium Phosphorus Magnesium Total Bilirubin AST ALT Alkaline Phosphatase Total Protein Albumin 2.6 L Globulin Albumin/Globulin Ratio Calcium (PTH Intact) 7.3 L PTH w/Ion &Tot Calcium 105 H Urine Color Urine Clarity Urine pH Ur Specific [place] Urine Protein Urine Glucose (UA) Urine Ketones Urine Blood Urine Nitrate Urine Bilirubin Urine Urobilinogen Ur Leukocyte Esterase Urine RBC (Auto) Urine WBC Clumps (Auto) Urine Microscopic WBC Ur Squamous Epith Cells Urine Bacteria Hyaline Casts Ur Random Sodium 03/31/18 03/31/18 03/31/18 16:24 20:42 21:08 WBC RBC Hgb Hct MCV MCH MCHC RDW Plt Count Sodium Potassium Chloride Carbon Dioxide Anion Gap BUN Creatinine Est GFR ( Amer) Est GFR (Non-Af Amer) POC Glucose (mg/dL) 73 107 Random Glucose Calcium Phosphorus Magnesium Total Bilirubin AST ALT Alkaline Phosphatase Total Protein Albumin Globulin Albumin/Globulin Ratio Calcium (PTH Intact) PTH w/Ion &Tot Calcium Urine Color Yellow Urine Clarity Turbid Urine pH 6.0 Ur Specific [place] 1.012 Urine Protein 30 Urine Glucose (UA) Neg Urine Ketones Negative Urine Blood Small Urine Nitrate Positive H Urine Bilirubin Negative Urine Urobilinogen 0.2-1.0 Ur Leukocyte Esterase Large Urine RBC (Auto) 19 H Urine WBC Clumps (Auto) Many H Urine Microscopic WBC 970 H Ur Squamous Epith Cells Urine Bacteria Few H Hyaline Casts Ur Random Sodium 04/01/18 04/01/18 04/01/18 04:30 04:30 06:30 WBC 6.0 RBC 3.60 L Hgb 10.1 L Hct 31.6 L MCV 87.8 MCH 28.2 MCHC 32.1 L RDW 18.5 H Plt Count 176 Sodium 138 Potassium 4.1 Chloride 112 H Carbon Dioxide 22 Anion Gap 8 L BUN 11 Creatinine 0.7 Est GFR ( Amer) > 60 Est GFR (Non-Af Amer) > 60 POC Glucose (mg/dL) 147 H Random Glucose 155 H Calcium 7.1 L Phosphorus 2.3 L Magnesium 1.6 Total Bilirubin 0.2 AST 23 ALT 18 Alkaline Phosphatase 87 Total Protein 5.7 L Albumin 2.5 L Globulin 3.2 Albumin/Globulin Ratio 0.8 L Calcium (PTH Intact) PTH w/Ion &Tot Calcium Urine Color Urine Clarity Urine pH Ur Specific [place] Urine Protein Urine Glucose (UA) Urine Ketones Urine Blood Urine Nitrate Urine Bilirubin Urine Urobilinogen Ur Leukocyte Esterase Urine RBC (Auto) Urine WBC Clumps (Auto) Urine Microscopic WBC Ur Squamous Epith Cells Urine Bacteria Hyaline Casts Ur Random Sodium 04/01/18 04/01/18 04/01/18 11:00 16:32 18:30 WBC RBC Hgb Hct MCV MCH MCHC RDW Plt Count Sodium Potassium Chloride Carbon Dioxide Anion Gap BUN Creatinine Est GFR ( Amer) Est GFR (Non-Af Amer) POC Glucose (mg/dL) 197 H 91 Random Glucose Calcium Phosphorus Magnesium Total Bilirubin AST ALT Alkaline Phosphatase Total Protein Albumin Globulin Albumin/Globulin Ratio Calcium (PTH Intact) PTH w/Ion &Tot Calcium Urine Color Straw Urine Clarity Cloudy Urine pH 5.0 Ur Specific [place] < 1.005 Urine Protein Negative Urine Glucose (UA) Neg Urine Ketones Negative Urine Blood Small Urine Nitrate Negative Urine Bilirubin Negative Urine Urobilinogen 0.2-1.0 Ur Leukocyte Esterase Mod Urine RBC (Auto) 4 H Urine WBC Clumps (Auto) Mod H Urine Microscopic WBC 76 H Ur Squamous Epith Cells < 1 Urine Bacteria Rare Hyaline Casts 0-2 Ur Random Sodium 04/01/18 04/02/18 04/02/18 22:12 04:30 04:30 WBC 5.2 RBC 3.51 L Hgb 10.0 L Hct 30.9 L MCV 87.9 MCH 28.4 MCHC 32.3 L RDW 18.3 H Plt Count 173 Sodium 136 Potassium 3.6 Chloride 109 H Carbon Dioxide 20 L Anion Gap 11 BUN 10 Creatinine 0.8 Est GFR ( Amer) > 60 Est GFR (Non-Af Amer) > 60 POC Glucose (mg/dL) 93 Random Glucose 135 H Calcium 7.2 L Phosphorus 2.3 L Magnesium 1.2 L Total Bilirubin AST ALT Alkaline Phosphatase Total Protein Albumin Globulin Albumin/Globulin Ratio Calcium (PTH Intact) PTH w/Ion &Tot Calcium Urine Color Urine Clarity Urine pH Ur Specific [place] Urine Protein Urine Glucose (UA) Urine Ketones Urine Blood Urine Nitrate Urine Bilirubin Urine Urobilinogen Ur Leukocyte Esterase Urine RBC (Auto) Urine WBC Clumps (Auto) Urine Microscopic WBC Ur Squamous Epith Cells Urine Bacteria Hyaline Casts Ur Random Sodium 04/02/18 05:14 WBC RBC Hgb Hct MCV MCH MCHC RDW Plt Count Sodium Potassium Chloride Carbon Dioxide Anion Gap BUN Creatinine Est GFR ( Amer) Est GFR (Non-Af Amer) POC Glucose (mg/dL) 117 H Random Glucose Calcium Phosphorus Magnesium Total Bilirubin AST ALT Alkaline Phosphatase Total Protein Albumin Globulin Albumin/Globulin Ratio Calcium (PTH Intact) PTH w/Ion &Tot Calcium Urine Color Urine Clarity Urine pH Ur Specific [place] Urine Protein Urine Glucose (UA) Urine Ketones Urine Blood Urine Nitrate Urine Bilirubin Urine Urobilinogen Ur Leukocyte Esterase Urine RBC (Auto) Urine WBC Clumps (Auto) Urine Microscopic WBC Ur Squamous Epith Cells Urine Bacteria Hyaline Casts Ur Random Sodium Microbiology 04/01/18 15:00 Stool Stool Culture - Preliminary [employer]IST, SUB SELENITE BROTH. 03/28/18 11:30 Blood Blood Culture - Final NO GROWTH AFTER 5 DAYS 03/28/18 11:30 Blood Gram Stain - Final TEST NOT PERFORMED 03/28/18 11:30 Blood Blood Culture - Final NO GROWTH AFTER 5 DAYS 03/28/18 11:30 Blood Gram Stain - Final TEST NOT PERFORMED 03/31/18 10:49 Blood Blood Culture - Preliminary NO GROWTH AFTER 48 HOURS 03/31/18 10:49 Blood Blood Culture - Preliminary NO GROWTH AFTER 48 HOURS 03/31/18 20:45 Urine,Catheterized Urine Culture - Preliminary Gram Negative Werner 03/28/18 17:36 Urine,Catheterized Urine Culture - Final Escherichia Coli Assessment and Plan (1) Hypercalcemia Status: Resolved (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 clinically better. she has remained afebrile normal wbc count blood cx- neg Urine cx from - esbl e,coli but UA from 03/23/2018- negative UA done yesterday is positive, however, the nurse does not know if it was clean catch repeat UA done by straight cath- positive for LE, neg for nitrates, repeat urine cx prelim- GNR stool c.diff- neg x 2 plan- since 2 repeat UA both have positive LE and pt. has multiple comorbidities including MM ondergoing chemotherpay for this MM advise to treat this ESBL in Urine cx( eventhough most likely colonization) with short course antibiotic regimen 3-5 days of meropnem .
[2018-04-02] MEDS: Meropenem 1 GM in Sodium Chloride 0.9% 100 ML IVPB SCH (16:02)
[2018-04-02] MEDS ORDERED: Alum-Mag Hydrox-Simethicone Susp (30 mL) PO ONE (16:34)
[2018-04-02] MEDS: Insulin Detemir 100 Units/ml Inj SC SCH (22:49)
[2018-04-03] MEDS: Meropenem 1 GM in Sodium Chloride 0.9% 100 ML IVPB SCH ×3 (00:41→18:08)
[2018-04-03] MEDS: Levothyroxine 100 MCG TAB PO SCH (05:42)
[2018-04-03 06:24] LABS: HEMOGLOBIN 10.5 g/dL (12.0-16.0); MEAN CELL VOLUME 87.6 fl (81.0-99.0); MEAN CORPUSCULAR HEMOGLOBIN 28.3 pg (27.0-31.0); MEAN CORPUSCULAR HGB CONC 32.3 g/dL (33.0-37.0); RBC 3.71 Mil/uL (3.80-5.20); RED CELL DISTRIBUTION WIDTH 18.1 % (11.5-14.5); WHITE BLOOD COUNT 4.9 K/uL (4.8-10.8)
[2018-04-03 06:42] LABS: ALB/GLOB RATIO 0.8 (1.0-2.1); ALBUMIN 2.6 g/dL (3.5-5.0); ALT/SGPT 18 U/L (9-52); AST/SGOT 23 U/L (14-36); BLOOD UREA NITROGEN 8 mg/dl (7-17); CALCIUM 7.8 mg/dL (8.4-10.2); GFR NON-AFRICAN AMERICAN > 60
--- NOTE | 2018-04-03 07:19 | CP.PCM.PN ---
Subjective - Date & Time of Evaluation Date of Evaluation: 04/03/18 Time of Evaluation: 08:30 - Subjective Subjective: No acute overnight events. Patient feeling better. No complaints of headache, dizziness, chest pain, dyspnea, abdominal pain, nausea, vomiting. Hemodynamically stable, afebrile. Tolerating regular diet. Meropenem started 04/02/18 for ESBL + urine. PT/OT. Objective - Vital Signs/Intake and Output Vital Signs (last 24 hours): Temp Pulse Resp BP Pulse Ox 97.7 F 85 19 101/63 100 04/03/18 05:28 04/03/18 05:28 04/03/18 05:28 04/03/18 05:28 04/03/18 05:28 - Medications Medications: Current Medications Albuterol/Ipratropium (Duoneb 3 Mg/0.5 Mg (3 Ml) Ud) 3 ml INH RQ6 PRN PRN Reason: Shortness of Breath Last Admin: 03/28/18 13:29 Dose: 3 ml Aripiprazole (Abilify) 2 mg PO HS [facility] Last Admin: 04/02/18 21:09 Dose: 2 mg Aspirin (Ecotrin) 81 mg PO DAILY [facility] Last Admin: 04/02/18 10:10 Dose: 81 mg Atorvastatin Calcium (Lipitor) 20 mg PO DAILY@2200 [facility] Last Admin: 04/02/18 21:09 Dose: 20 mg Benzocaine/Menthol (Cepacol Sore Throat) 1 kaitlyn PO Q2 PRN PRN Reason: Sore Throat Last Admin: 04/02/18 15:32 Dose: 1 kaitlyn Benztropine Mesylate (Cogentin) 1 mg PO Q12 [facility] Last Admin: 04/02/18 21:09 Dose: 1 mg Bortezomib (Velcade) 3.5 mg IVP TUTH [facility] Last Admin: 03/29/18 16:05 Dose: Not Given Buspirone HCl (Buspar) 15 mg PO Q12 [facility] Last Admin: 04/02/18 21:08 Dose: 15 mg Calcitriol (Rocaltrol) 0.25 mcg PO DAILY [facility] Last Admin: 04/02/18 10:08 Dose: 0.25 mcg Calcium Carbonate (Oscal) 500 mg PO BID [facility] Last Admin: 04/02/18 18:48 Dose: 500 mg Cholecalciferol (Vitamin D) 1,000 intlu PO DAILY [facility] Last Admin: 04/02/18 10:12 Dose: 1,000 intlu Clonazepam (Klonopin) 0.5 mg PO DAILY PRN PRN Reason: Anxiety Dextrose (Dextrose 50% Inj) 0 ml IV STAT PRN; Protocol PRN Reason: Hypoglycemia Protocol Dextrose (Glutose 15) 0 gm PO ONCE PRN; Protocol PRN Reason: Hypoglycemia Protocol Dimethicone (Proshield Plus Skin Protectant) 1 applic TOP Q8 PRN PRN Reason: Other Last Admin: 04/02/18 12:17 Dose: 1 applic Duloxetine HCl (Cymbalta) 60 mg PO DAILY [facility] Last Admin: 04/02/18 10:10 Dose: 60 mg Enalapril Maleate (Vasotec) 5 mg PO DAILY [facility] Enoxaparin Sodium (Lovenox) 40 mg SC DAILY [facility]; Protocol Last Admin: 04/02/18 10:08 Dose: 40 mg Escitalopram Oxalate (Lexapro) 10 mg PO DAILY [facility] Last Admin: 04/02/18 10:09 Dose: 10 mg Famotidine (Pepcid) 40 mg IVP DAILY [facility] Last Admin: 04/02/18 10:11 Dose: 40 mg Ferrous Sulfate (Feosol) 325 mg PO DAILY [facility] Last Admin: 03/25/18 08:45 Dose: 325 mg Gabapentin (Neurontin) 100 mg PO TID [facility] Last Admin: 04/02/18 18:47 Dose: 100 mg Glucagon (Glucagen Diagnostic Kit) 0 mg IM STAT PRN; Protocol PRN Reason: Hypoglycemia Protocol Home Med (Riociguat [Adempas]) 2 mg PO TID [facility] Last Admin: 04/02/18 18:47 Dose: 2 mg Hydrocortisone (Cortef) 10 mg PO HS [facility] Last Admin: 04/02/18 21:09 Dose: 10 mg Meropenem 1 gm/ Sodium (Chloride) 100 mls @ 100 mls/hr IVPB Q8 [facility]; Protocol Stop: 04/05/18 17:01 Last Admin: 04/03/18 00:41 Dose: 100 mls/hr Insulin Detemir (Levemir) 10 units SC HS [facility] Last Admin: 04/02/18 22:49 Dose: 10 units Insulin Human Lispro (Humalog) 5 units SC TID [facility] Last Admin: 03/24/18 09:12 Dose: Not Given Insulin Human Lispro (Humalog) 0 units SC ACCU-CHECK [facility]; Protocol Last Admin: 04/02/18 22:50 Dose: Not Given Levothyroxine Sodium (Synthroid) 100 mcg PO DAILY@0630 [facility] Last Admin: 04/03/18 05:42 Dose: 100 mcg Magnesium Oxide (Mag-Ox) 400 mg PO BID [facility] Last Admin: 04/02/18 18:47 Dose: 400 mg Metformin HCl (Glucophage) 500 mg PO BID [facility] Last Admin: 03/24/18 09:07 Dose: 500 mg Torsemide (Demadex) 20 mg PO DAILY [facility] Last Admin: 04/01/18 09:57 Dose: 20 mg - Labs Labs: 04/03/18 05:50 04/03/18 05:50 PT 11.8 Seconds (9.8-13.1) 03/23/18 17:02 INR 1.0 03/23/18 17:02 APTT 29.2 Seconds (25.6-37.1) 03/23/18 17:02 - Constitutional Appears: Non-toxic - Head Exam Head Exam: ATRAUMATIC, NORMAL INSPECTION, NORMOCEPHALIC - Eye Exam Eye Exam: EOMI, Normal appearance, PERRL - ENT Exam ENT Exam: Mucous Membranes Moist - Respiratory Exam Respiratory Exam: Clear to Ausculation Bilateral, NORMAL BREATHING PATTERN. absent: Rhonchi, Wheezes - Cardiovascular Exam Cardiovascular Exam: REGULAR RHYTHM, +S1, +S2 - GI/Abdominal Exam GI & Abdominal Exam: Soft, Normal Bowel Sounds. absent: Distended, Guarding, Tenderness - Extremities Exam Extremities Exam: Normal Inspection. 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 Pt has had many metabolic derangements that are likely contributing to her AMS. Her electrolytes are now WNL. Patients mental status improved. She is awake alert and oriented, she continues to have visual/auditory hallucinations that are benign and are baseline. She has +ESBL in urine, but is afebrile without leukocytosis. Likely contaminated as per ID, will get repeat Ucx with straight cath. Blood cultures have been negative. Repeat Ucx pending. Patient tolerated regular diet and has been having diarrhea. Stool Cx and lytes were sent, stool cultures neg. Pt will participate with PT today. Plan for TCU placement pending SW. PLAN: >+ESBL in urine culture --afebrile without leukocytosis --+ESBL --merrem started 04/02/18 to be given for 3 days as per ID. --ID consult appreciated, to repeat ua and ucx, hold off on abx for now. >Metabolic Derangements: >Hypomagnesemia --chronic --start slo-mag as mag ox may be contributing to diarrhea. --Discontinued PPI as this can cause hypoMG >Hypophosphatemia --Continue to monitor > Hypocalcemia --Chronic, nl with correction --Likely due to MM, restarted Calcitriol, Ca Co3, and Vitamin D yesterday --PTH high 105, may have parathyroid dysfunction >Deconditioning --Likely from prolonged immobility during acute illness --PT eval: recommended subacute rehab for continued PT. Pt and family have decided on TCU. --SW referral for placement >IDDM --Metformin held, Meal time Bolus held, put on low sliding scale and reduced basal insulin given pt's poor intake and low sugars --Accuchecks --Hypoglycemic protocol --ISS, low dose >Multiple Myeloma --likely cause of anemia --Heme/Onc on board: Dr. Vilchis --Bortezomib on hold, will administer in outpatient setting >CHF/HTN --Echocardiogram on 08/25/17 showed LVEF 60-65%, grade I abnormal relaxation pattern. --Possibly diastolic dysfunction-CHF --Holding torsemide for now as per nephro; will monitor volume status >COPD/Pulm HTN --Resumed home meds >DVT Prophylaxis --Lovenox 40mg SC daily --SCDs Hypercalcemia- resolved Ileus -resolved Altered Mental Status /Delirium- resolved Case d/w
[2018-04-03] MEDS: Insulin Lispro (humaLOG) 100 Units/ml Inj SC SCH ×4 (07:29→22:12)
[2018-04-03] MEDS: Enoxaparin 40 mg Syringe SC SCH (09:26)
[2018-04-03] MEDS: Cholecalciferol 1,000 INTLU TAB PO SCH (09:26)
[2018-04-03] MEDS: RIOCIGUAT 2 MG PO SCH ×3 (09:29→18:09)
[2018-04-03] MEDS: Proshield Plus GEL TOP PRN (09:29)
[2018-04-03] MEDS: Magnesium Oxide 400 mg Tab UD PO SCH (09:29)
[2018-04-03] MEDS: Benzocaine/Menthol (Cepacol) Lozenge PO PRN (15:35)
[2018-04-03] MEDS: Insulin Detemir 100 Units/ml Inj SC SCH (21:18)
[2018-04-04] MEDS: Meropenem 1 GM in Sodium Chloride 0.9% 100 ML IVPB SCH ×3 (00:36→17:30)
[2018-04-04 05:39] LABS: HEMOGLOBIN 10.3 g/dL (12.0-16.0); MEAN CELL VOLUME 86.9 fl (81.0-99.0); MEAN CORPUSCULAR HEMOGLOBIN 28.5 pg (27.0-31.0); MEAN CORPUSCULAR HGB CONC 32.8 g/dL (33.0-37.0); RBC 3.61 Mil/uL (3.80-5.20); RED CELL DISTRIBUTION WIDTH 17.5 % (11.5-14.5); WHITE BLOOD COUNT 5.6 K/uL (4.8-10.8)
[2018-04-04 06:02] LABS: ALB/GLOB RATIO 0.8 (1.0-2.1); ALBUMIN 2.7 g/dL (3.5-5.0); ALT/SGPT 19 U/L (9-52); AST/SGOT 22 U/L (14-36); BLOOD UREA NITROGEN 6 mg/dl (7-17); CALCIUM 8.5 mg/dL (8.4-10.2); GFR NON-AFRICAN AMERICAN > 60
[2018-04-04] MEDS: Levothyroxine 100 MCG TAB PO SCH (06:43)
[2018-04-04] MEDS: Insulin Lispro (humaLOG) 100 Units/ml Inj SC SCH ×3 (07:06→23:26)
[2018-04-04] MEDS: Enoxaparin 40 mg Syringe SC SCH (09:02)
[2018-04-04] MEDS: Cholecalciferol 1,000 INTLU TAB PO SCH (09:03)
[2018-04-04] MEDS: Magnesium Chloride 64 mg ER Tab PO SCH (09:03)
[2018-04-04] MEDS: RIOCIGUAT 2 MG PO SCH ×3 (09:03→18:36)
--- NOTE | 2018-04-04 13:54 | CP.PCM.PN ---
Subjective - Date & Time of Evaluation Date of Evaluation: 04/04/18 Time of Evaluation: 13:26 - Subjective Subjective: Patient seen and examined bedside, No overnight events. Hemodynamically stable and afebrile. Tolerating diet. Less diarrhea. On merrem for ESBL + urine PT/OT- pendingTCU transfer Objective - Vital Signs/Intake and Output Vital Signs (last 24 hours): Temp Pulse Resp BP Pulse Ox 97.8 F 83 20 120/73 100 04/04/18 12:36 04/04/18 12:36 04/04/18 12:36 04/04/18 12:36 04/04/18 12:36 - Medications Medications: Current Medications Albuterol/Ipratropium (Duoneb 3 Mg/0.5 Mg (3 Ml) Ud) 3 ml INH RQ6 PRN PRN Reason: Shortness of Breath Last Admin: 03/28/18 13:29 Dose: 3 ml Aripiprazole (Abilify) 2 mg PO HS [facility] Last Admin: 04/03/18 21:17 Dose: 2 mg Aspirin (Ecotrin) 81 mg PO DAILY [facility] Last Admin: 04/04/18 09:05 Dose: 81 mg Atorvastatin Calcium (Lipitor) 20 mg PO DAILY@2200 [facility] Last Admin: 04/03/18 21:18 Dose: 20 mg Benzocaine/Menthol (Cepacol Sore Throat) 1 kaitlyn PO Q2 PRN PRN Reason: Sore Throat Last Admin: 04/03/18 15:35 Dose: 1 kaitlyn Benztropine Mesylate (Cogentin) 1 mg PO Q12 [facility] Last Admin: 04/04/18 09:05 Dose: 1 mg Bortezomib (Velcade) 3.5 mg IVP [facility] Last Admin: 03/29/18 16:05 Dose: Not Given Buspirone HCl (Buspar) 15 mg PO Q12 [facility] Last Admin: 04/04/18 09:03 Dose: 15 mg Calcitriol (Rocaltrol) 0.25 mcg PO F [facility] Calcium Carbonate (Oscal) 500 mg PO BID [facility] Last Admin: 04/04/18 09:04 Dose: 500 mg Cholecalciferol (Vitamin D) 1,000 intlu PO DAILY [facility] Last Admin: 04/04/18 09:03 Dose: 1,000 intlu Clonazepam (Klonopin) 0.5 mg PO DAILY PRN PRN Reason: Anxiety Dextrose (Dextrose 50% Inj) 0 ml IV STAT PRN; Protocol PRN Reason: Hypoglycemia Protocol Dextrose (Glutose 15) 0 gm PO ONCE PRN; Protocol PRN Reason: Hypoglycemia Protocol Dimethicone (Proshield Plus Skin Protectant) 1 applic TOP Q8 PRN PRN Reason: Other Last Admin: 04/03/18 09:29 Dose: 1 applic Duloxetine HCl (Cymbalta) 60 mg PO DAILY [facility] Last Admin: 04/04/18 09:02 Dose: 60 mg Enalapril Maleate (Vasotec) 5 mg PO DAILY [facility] Enoxaparin Sodium (Lovenox) 40 mg SC DAILY [facility]; Protocol Last Admin: 04/04/18 09:02 Dose: 40 mg Escitalopram Oxalate (Lexapro) 10 mg PO DAILY [facility] Last Admin: 04/04/18 09:04 Dose: 10 mg Famotidine (Pepcid) 40 mg IVP DAILY [facility] Last Admin: 04/04/18 09:22 Dose: 40 mg Ferrous Sulfate (Feosol) 325 mg PO DAILY [facility] Last Admin: 03/25/18 08:45 Dose: 325 mg Gabapentin (Neurontin) 100 mg PO TID [facility] Last Admin: 04/04/18 09:04 Dose: 100 mg Glucagon (Glucagen Diagnostic Kit) 0 mg IM STAT PRN; Protocol PRN Reason: Hypoglycemia Protocol Home Med (Riociguat [Adempas]) 2 mg PO TID [facility] Last Admin: 04/04/18 09:03 Dose: 2 mg Hydrocortisone (Cortef) 10 mg PO [facility] Last Admin: 04/03/18 21:18 Dose: 10 mg Meropenem 1 gm/ Sodium (Chloride) 100 mls @ 100 mls/hr IVPB Q8 [facility]; Protocol Stop: 04/05/18 17:01 Last Admin: 04/04/18 09:02 Dose: 100 mls/hr Insulin Detemir (Levemir) 10 units SC [facility] Last Admin: 04/03/18 21:18 Dose: 10 units Insulin Human Lispro (Humalog) 5 units SC TID [facility] Last Admin: 03/24/18 09:12 Dose: Not Given Insulin Human Lispro (Humalog) 0 units SC ACCU-CHECK [facility]; Protocol Last Admin: 04/03/18 22:12 Dose: Not Given Levothyroxine Sodium (Synthroid) 100 mcg PO DAILY@0630 [facility] Last Admin: 04/04/18 06:43 Dose: 100 mcg Magnesium Chloride (Slow-Mag) 64 mg PO DAILY [facility] Last Admin: 04/04/18 09:03 Dose: 64 mg Magnesium Oxide (Mag-Ox) 400 mg PO BID [facility] Last Admin: 04/03/18 09:29 Dose: 400 mg Metformin HCl (Glucophage) 500 mg PO BID [facility] Last Admin: 03/24/18 09:07 Dose: 500 mg Sodium Phosphate (Potassium/Sodium Phosphate) 250 mg PO BID [facility] Stop: 04/05/18 17:01 Torsemide (Demadex) 20 mg PO DAILY [facility] Last Admin: 04/01/18 09:57 Dose: 20 mg - Labs Labs: 04/04/18 04:25 04/04/18 04:25 PT 11.8 Seconds (9.8-13.1) 03/23/18 17:02 INR 1.0 03/23/18 17:02 APTT 29.2 Seconds (25.6-37.1) 03/23/18 17:02 - Constitutional Appears: Well - Head Exam Head Exam: ATRAUMATIC - Respiratory Exam Respiratory Exam: Clear to Ausculation Bilateral, NORMAL BREATHING PATTERN. absent: Rales, Rhonchi, Wheezes - Cardiovascular Exam Cardiovascular Exam: REGULAR RHYTHM, +S1, +S2 - GI/Abdominal Exam GI & Abdominal Exam: Soft, Normal Bowel Sounds. absent: Distended, Guarding, Tenderness - Extremities Exam Extremities Exam: Normal Inspection. 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 Pt has had many metabolic derangements that are likely contributing to her AMS. Her electrolytes are now WNL. She is awake alert and oriented, she continues to have visual/auditory hallucinations that are benign and are baseline. She has +ESBL in urine, but is afebrile without leukocytosis. Blood cultures h ave been negative. Repeat Ucx +ESBL in urine. She is now on Merrem day 2 of 3 for this. Patient tolerated regular diet, diarrhea is improving. Stool Cx and lytes were sent, stool cultures neg. Pt will participate with PT today. Plan for TCU placement pending SW. PLAN: >+ESBL in urine culture -- afebrile without leukocytosis -- +ESBL -- merrem started 04/02/18 to be given for 3 days as per ID. (Day#2 today) --I D consult appreciated, to repeat ua and ucx, hold off on abx for now. >Metabolic Derangements: >Hypomagnesemia --chronic --start slo-mag as mag ox may be contributing to diarrhea. continue slomag and increase if remains hypomagnesemic --Discontinued PPI as this can cause hypoMG >Hypophosphatemia --Continue to monitor - replete prn > Hypocalcemia --Chronic, nl with correction --Likely due to MM, restarted Calcitriol, Ca Co3, and Vitamin D yesterday --PTH high 105, may have parathyroid dysfunction >Deconditioning --Likely from prolonged immobility during acute illness --PT /OT - for TCU. >IDDM --Metformin held, Meal time Bolus held, put on low sliding scale and reduced basal insulin given pt's poor intake and low sugars --Accuchecks --Hypoglycemic protocol --ISS, low dose >Multiple Myeloma --likely cause of anemia --Heme/Onc on board: Dr. Vilchis --Bortezomib on hold, will administer in outpatient setting >CHF/HTN --Echocardiogram on 08/25/17 showed LVEF 60-65%, grade I abnormal relaxation pattern. --Possibly diastolic dysfunction-CHF --Holding torsemide for now as per nephro; will monitor volume status >COPD/Pulm HTN --Resumed home meds >DVT Prophylaxis --Lovenox 40mg SC daily --SCDs Hypercalcemia- resolved Ileus -resolved Altered Mental Status /Delirium- resolved D/w Dr. Neumann
[2018-04-04] MEDS: Benzocaine/Menthol (Cepacol) Lozenge PO PRN (15:05)
--- NOTE | 2018-04-04 18:13 | CP.PCM.PN ---
Subjective - Date & Time of Evaluation Date of Evaluation: 04/04/18 Time of Evaluation: 12:00 - Subjective Subjective: Patient reports feeling well; reports consuming about a quarter of her meals; breathing well; no diarrhea since 2 days; Objective - Vital Signs/Intake and Output Vital Signs (last 24 hours): Temp Pulse Resp BP Pulse Ox 98.0 F 94 H 19 122/69 100 04/04/18 16:27 04/04/18 16:27 04/04/18 16:27 04/04/18 16:27 04/04/18 16:27 - Medications Medications: Current Medications Albuterol/Ipratropium (Duoneb 3 Mg/0.5 Mg (3 Ml) Ud) 3 ml INH RQ6 PRN PRN Reason: Shortness of Breath Last Admin: 03/28/18 13:29 Dose: 3 ml Aripiprazole (Abilify) 2 mg PO HS [facility] Last Admin: 04/03/18 21:17 Dose: 2 mg Aspirin (Ecotrin) 81 mg PO DAILY [facility] Last Admin: 04/04/18 09:05 Dose: 81 mg Atorvastatin Calcium (Lipitor) 20 mg PO DAILY@2200 [facility] Last Admin: 04/03/18 21:18 Dose: 20 mg Benzocaine/Menthol (Cepacol Sore Throat) 1 kaitlyn PO Q2 PRN PRN Reason: Sore Throat Last Admin: 04/04/18 15:05 Dose: 1 kaitlyn Benztropine Mesylate (Cogentin) 1 mg PO Q12 [facility] Last Admin: 04/04/18 09:05 Dose: 1 mg Bortezomib (Velcade) 3.5 mg IVP [facility] Last Admin: 03/29/18 16:05 Dose: Not Given Buspirone HCl (Buspar) 15 mg PO Q12 [facility] Last Admin: 04/04/18 09:03 Dose: 15 mg Calcitriol (Rocaltrol) 0.25 mcg PO MWF [facility] Calcium Carbonate (Oscal) 500 mg PO BID [facility] Last Admin: 04/04/18 09:04 Dose: 500 mg Cholecalciferol (Vitamin D) 1,000 intlu PO DAILY [facility] Last Admin: 04/04/18 09:03 Dose: 1,000 intlu Clonazepam (Klonopin) 0.5 mg PO DAILY PRN PRN Reason: Anxiety Dextrose (Dextrose 50% Inj) 0 ml IV STAT PRN; Protocol PRN Reason: Hypoglycemia Protocol Dextrose (Glutose 15) 0 gm PO ONCE PRN; Protocol PRN Reason: Hypoglycemia Protocol Dimethicone (Proshield Plus Skin Protectant) 1 applic TOP Q8 PRN PRN Reason: Other Last Admin: 04/03/18 09:29 Dose: 1 applic Duloxetine HCl (Cymbalta) 60 mg PO DAILY [facility] Last Admin: 04/04/18 09:02 Dose: 60 mg Enalapril Maleate (Vasotec) 5 mg PO DAILY [facility] Enoxaparin Sodium (Lovenox) 40 mg SC DAILY [facility]; Protocol Last Admin: 04/04/18 09:02 Dose: 40 mg Escitalopram Oxalate (Lexapro) 10 mg PO DAILY [facility] Last Admin: 04/04/18 09:04 Dose: 10 mg Famotidine (Pepcid) 40 mg IVP DAILY [facility] Last Admin: 04/04/18 09:22 Dose: 40 mg Ferrous Sulfate (Feosol) 325 mg PO DAILY [facility] Last Admin: 03/25/18 08:45 Dose: 325 mg Gabapentin (Neurontin) 100 mg PO TID [facility] Last Admin: 04/04/18 13:05 Dose: 100 mg Glucagon (Glucagen Diagnostic Kit) 0 mg IM STAT PRN; Protocol PRN Reason: Hypoglycemia Protocol Home Med (Riociguat [Adempas]) 2 mg PO TID [facility] Last Admin: 04/04/18 13:05 Dose: 2 mg Hydrocortisone (Cortef) 10 mg PO [facility] Last Admin: 04/03/18 21:18 Dose: 10 mg Meropenem 1 gm/ Sodium (Chloride) 100 mls @ 100 mls/hr IVPB Q8 [facility]; Protocol Stop: 04/05/18 17:01 Last Admin: 04/04/18 09:02 Dose: 100 mls/hr Insulin Detemir (Levemir) 10 units SC [facility] Last Admin: 04/03/18 21:18 Dose: 10 units Insulin Human Lispro (Humalog) 5 units SC TID [facility] Last Admin: 03/24/18 09:12 Dose: Not Given Insulin Human Lispro (Humalog) 0 units SC ACCU-CHECK [facility]; Protocol Last Admin: 04/04/18 12:06 Dose: Not Given Levothyroxine Sodium (Synthroid) 100 mcg PO DAILY@0630 [facility] Last Admin: 04/04/18 06:43 Dose: 100 mcg Magnesium Chloride (Slow-Mag) 64 mg PO DAILY [facility] Last Admin: 04/04/18 09:03 Dose: 64 mg Magnesium Oxide (Mag-Ox) 400 mg PO BID [facility] Last Admin: 04/03/18 09:29 Dose: 400 mg Metformin HCl (Glucophage) 500 mg PO BID [facility] Last Admin: 03/24/18 09:07 Dose: 500 mg Sodium Phosphate (Potassium/Sodium Phosphate) 250 mg PO BID [facility] Stop: 04/05/18 17:01 Last Admin: 04/04/18 13:05 Dose: 250 mg Torsemide (Demadex) 20 mg PO DAILY [facility] Last Admin: 04/01/18 09:57 Dose: 20 mg - Labs Labs: 04/04/18 04:25 04/04/18 04:25 PT 11.8 Seconds (9.8-13.1) 03/23/18 17:02 INR 1.0 03/23/18 17:02 APTT 29.2 Seconds (25.6-37.1) 03/23/18 17:02 - Constitutional Appears: Non-toxic, No Acute Distress - Eye Exam Eye Exam: Normal appearance - Respiratory Exam Respiratory Exam: Rales. absent: Respiratory Distress - Cardiovascular Exam Cardiovascular Exam: RRR, +S1, +S2 - GI/Abdominal Exam GI & Abdominal Exam: Soft. absent: Distended - Extremities Exam Additional comments: no significant leg edema - Neurological Exam Neurological Exam: Alert, Awake - Psychiatric Exam Psychiatric exam: Normal Mood. absent: Agitated - Skin Skin Exam: Warm. absent: Cyanosis Assessment and Plan (1) Electrolyte abnormality Assessment & Plan: Recurrent hypomagnesemia since several years requiriing repeated supplementation; with concurrent hypocalcemia, sometimes severe; mag ox thought to be contributing to diarrhea and switched to slow-mag yesterday; -will try amiloride as it has some effect to help reduce renal mag wasting; -decreasing calcitriol 0.25 frequency to three times per week; continue calcium carbonate supplementation; Status: Acute (2) Hypercalcemia Status: Resolved (3) Hypomagnesemia Status: Chronic (4) CHF (congestive heart failure) Assessment & Plan: Torsemide on hold; starting potassium sparing diuretic amiloride as above; Status: Chronic (5) Acute kidney injury Status: Acute
[2018-04-04] MEDS: Insulin Detemir 100 Units/ml Inj SC SCH (23:28)
[2018-04-05] MEDS: Meropenem 1 GM in Sodium Chloride 0.9% 100 ML IVPB SCH ×3 (01:06→16:45)
[2018-04-05] MEDS: Levothyroxine 100 MCG TAB PO SCH (06:30)
[2018-04-05] MEDS: Insulin Lispro (humaLOG) 100 Units/ml Inj SC SCH ×4 (08:36→22:17)
[2018-04-05] MEDS: Enoxaparin 40 mg Syringe SC SCH (08:37)
[2018-04-05] MEDS: Cholecalciferol 1,000 INTLU TAB PO SCH (08:37)
[2018-04-05] MEDS: RIOCIGUAT 2 MG PO SCH ×3 (08:38→16:46)
--- NOTE | 2018-04-05 11:29 | CP.PCM.PN ---
Subjective - Date & Time of Evaluation Date of Evaluation: 04/05/18 Time of Evaluation: 11:29 - Subjective Subjective: ID Note- Pt. seen and examined today. Patient is awake and alert and in good spirits. denies any complaints today. Objective - Vital Signs/Intake and Output Vital Signs (last 24 hours): Temp Pulse Resp BP Pulse Ox 97.8 F 88 18 106/66 97 04/05/18 08:23 04/05/18 08:23 04/05/18 08:23 04/05/18 08:23 04/05/18 08:23 - Medications Medications: Current Medications Albuterol/Ipratropium (Duoneb 3 Mg/0.5 Mg (3 Ml) Ud) 3 ml INH RQ6 PRN PRN Reason: Shortness of Breath Last Admin: 03/28/18 13:29 Dose: 3 ml Amiloride HCl (Amiloride 5 Mg Tab) 5 mg PO DAILY [facility] Last Admin: 04/05/18 08:35 Dose: 5 mg Aripiprazole (Abilify) 2 mg PO HS [facility] Last Admin: 04/04/18 21:33 Dose: 2 mg Aspirin (Ecotrin) 81 mg PO DAILY [facility] Last Admin: 04/05/18 08:47 Dose: 81 mg Atorvastatin Calcium (Lipitor) 20 mg PO DAILY@2200 [facility] Last Admin: 04/04/18 21:33 Dose: 20 mg Benzocaine/Menthol (Cepacol Sore Throat) 1 kaitlyn PO Q2 PRN PRN Reason: Sore Throat Last Admin: 04/04/18 15:05 Dose: 1 kaitlyn Benztropine Mesylate (Cogentin) 1 mg PO Q12 [facility] Last Admin: 04/05/18 08:36 Dose: 1 mg Bortezomib (Velcade) 3.5 mg IVP [facility] Last Admin: 03/29/18 16:05 Dose: Not Given Buspirone HCl (Buspar) 15 mg PO Q12 [facility] Last Admin: 04/05/18 08:35 Dose: 15 mg Calcitriol (Rocaltrol) 0.25 mcg PO MWF [facility] Calcium Carbonate (Oscal) 500 mg PO BID [facility] Last Admin: 04/05/18 08:47 Dose: 500 mg Cholecalciferol (Vitamin D) 1,000 intlu PO DAILY [facility] Last Admin: 04/05/18 08:37 Dose: 1,000 intlu Clonazepam (Klonopin) 0.5 mg PO DAILY PRN PRN Reason: Anxiety Dextrose (Dextrose 50% Inj) 0 ml IV STAT PRN; Protocol PRN Reason: Hypoglycemia Protocol Dextrose (Glutose 15) 0 gm PO ONCE PRN; Protocol PRN Reason: Hypoglycemia Protocol Dimethicone (Proshield Plus Skin Protectant) 1 applic TOP Q8 PRN PRN Reason: Other Last Admin: 04/03/18 09:29 Dose: 1 applic Duloxetine HCl (Cymbalta) 60 mg PO DAILY [facility] Last Admin: 04/05/18 08:36 Dose: 60 mg Enalapril Maleate (Vasotec) 5 mg PO DAILY [facility] Enoxaparin Sodium (Lovenox) 40 mg SC DAILY [facility]; Protocol Last Admin: 04/05/18 08:37 Dose: 40 mg Escitalopram Oxalate (Lexapro) 10 mg PO DAILY [facility] Last Admin: 04/05/18 08:37 Dose: 10 mg Famotidine (Pepcid) 40 mg IVP DAILY [facility] Last Admin: 04/05/18 08:46 Dose: 40 mg Ferrous Sulfate (Feosol) 325 mg PO DAILY [facility] Last Admin: 03/25/18 08:45 Dose: 325 mg Gabapentin (Neurontin) 100 mg PO TID [facility] Last Admin: 04/05/18 08:36 Dose: 100 mg Glucagon (Glucagen Diagnostic Kit) 0 mg IM STAT PRN; Protocol PRN Reason: Hypoglycemia Protocol Home Med (Riociguat [Adempas]) 2 mg PO TID [facility] Last Admin: 04/05/18 08:38 Dose: 2 mg Hydrocortisone (Cortef) 10 mg PO [facility] Last Admin: 04/04/18 21:33 Dose: 10 mg Meropenem 1 gm/ Sodium (Chloride) 100 mls @ 100 mls/hr IVPB Q8 [facility]; Protocol Stop: 04/05/18 17:01 Last Admin: 04/05/18 08:34 Dose: 100 mls/hr Insulin Detemir (Levemir) 10 units SC [facility] Last Admin: 04/04/18 23:28 Dose: 10 units Insulin Human Lispro (Humalog) 5 units SC TID [facility] Last Admin: 03/24/18 09:12 Dose: Not Given Insulin Human Lispro (Humalog) 0 units SC ACCU-CHECK [facility]; Protocol Last Admin: 04/05/18 08:36 Dose: Not Given Levothyroxine Sodium (Synthroid) 100 mcg PO DAILY@0630 [facility] Last Admin: 04/05/18 06:30 Dose: 100 mcg Magnesium Chloride (Slow-Mag) 64 mg PO DAILY [facility] Last Admin: 04/04/18 09:03 Dose: 64 mg Magnesium Oxide (Mag-Ox) 400 mg PO BID [facility] Last Admin: 04/03/18 09:29 Dose: 400 mg Metformin HCl (Glucophage) 500 mg PO BID [facility] Last Admin: 03/24/18 09:07 Dose: 500 mg Sodium Phosphate (Potassium/Sodium Phosphate) 250 mg PO BID [facility] Stop: 04/05/18 17:01 Last Admin: 04/04/18 18:42 Dose: 250 mg Torsemide (Demadex) 20 mg PO DAILY [facility] Last Admin: 04/01/18 09:57 Dose: 20 mg - Labs Labs: 04/04/18 04:25 04/04/18 04:25 PT 11.8 Seconds (9.8-13.1) 03/23/18 17:02 INR 1.0 03/23/18 17:02 APTT 29.2 Seconds (25.6-37.1) 03/23/18 17:02 - Additional Findings Additional findings: - Constitutional Appears: No Acute Distress - Head Exam Head Exam: ATRAUMATIC - Eye Exam Eye Exam: EOMI - ENT Exam ENT Exam: Normal Oropharynx Additional comments: - Neck Exam Neck exam: Positive for: Full Rom - Respiratory Exam Respiratory Exam: NORMAL BREATHING PATTERN Additional comments: good breath sounds b/l no wheezing - Cardiovascular Exam Cardiovascular Exam: RRR, +S1, +S2 - GI/Abdominal Exam GI & Abdominal Exam: Normal Bowel Sounds, Soft Additional comments: NT, ND No CVA tenderness B/L - Extremities Exam Extremities exam: Positive for: normal inspection - Neurological Exam Neurological exam: Alert, Oriented x 3 Laboratory Results - last 72 hr 04/02/18 04/02/18 04/02/18 11:16 16:02 21:33 WBC RBC Hgb Hct MCV MCH MCHC RDW Plt Count Sodium Potassium Chloride Carbon Dioxide Anion Gap BUN Creatinine Est GFR ( Amer) Est GFR (Non-Af Amer) POC Glucose (mg/dL) 87 85 78 Random Glucose Calcium Phosphorus Magnesium Total Bilirubin AST ALT Alkaline Phosphatase Total Protein Albumin Globulin Albumin/Globulin Ratio 04/03/18 04/03/18 04/03/18 05:50 05:50 06:21 WBC 4.9 RBC 3.71 L Hgb 10.5 L Hct 32.5 L MCV 87.6 MCH 28.3 MCHC 32.3 L RDW 18.1 H Plt Count 191 Sodium 135 Potassium 3.7 Chloride 104 Carbon Dioxide 23 Anion Gap 12 BUN 8 Creatinine 0.7 Est GFR ( Amer) > 60 Est GFR (Non-Af Amer) > 60 POC Glucose (mg/dL) 109 Random Glucose 124 H Calcium 7.8 L Phosphorus 2.3 L Magnesium 1.5 L Total Bilirubin 0.3 AST 23 ALT 18 Alkaline Phosphatase 96 Total Protein 5.9 L Albumin 2.6 L Globulin 3.2 Albumin/Globulin Ratio 0.8 L 04/03/18 04/03/18 04/03/18 10:54 16:06 21:08 WBC RBC Hgb Hct MCV MCH MCHC RDW Plt Count Sodium Potassium Chloride Carbon Dioxide Anion Gap BUN Creatinine Est GFR ( Amer) Est GFR (Non-Af Amer) POC Glucose (mg/dL) 105 121 H 130 H Random Glucose Calcium Phosphorus Magnesium Total Bilirubin AST ALT Alkaline Phosphatase Total Protein Albumin Globulin Albumin/Globulin Ratio 04/04/18 04/04/18 04/04/18 04:25 04:25 05:40 WBC 5.6 RBC 3.61 L Hgb 10.3 L Hct 31.3 L MCV 86.9 MCH 28.5 MCHC 32.8 L RDW 17.5 H Plt Count 213 Sodium 135 Potassium 3.9 Chloride 100 Carbon Dioxide 29 Anion Gap 10 BUN 6 L Creatinine 0.7 Est GFR ( Amer) > 60 Est GFR (Non-Af Amer) > 60 POC Glucose (mg/dL) 120 H Random Glucose 124 H Calcium 8.5 Phosphorus 2.1 L Magnesium 1.4 L Total Bilirubin 0.2 AST 22 ALT 19 Alkaline Phosphatase 106 Total Protein 6.0 L Albumin 2.7 L Globulin 3.2 Albumin/Globulin Ratio 0.8 L 04/04/18 04/04/18 04/04/18 11:42 17:23 22:25 WBC RBC Hgb Hct MCV MCH MCHC RDW Plt Count Sodium Potassium Chloride Carbon Dioxide Anion Gap BUN Creatinine Est GFR ( Amer) Est GFR (Non-Af Amer) POC Glucose (mg/dL) 107 106 95 Random Glucose Calcium Phosphorus Magnesium Total Bilirubin AST ALT Alkaline Phosphatase Total Protein Albumin Globulin Albumin/Globulin Ratio 04/05/18 04/05/18 04/05/18 06:03 10:58 11:47 WBC RBC Hgb Hct MCV MCH MCHC RDW Plt Count Sodium 139 Potassium 4.5 Chloride 102 Carbon Dioxide 28 Anion Gap 14 BUN 6 L Creatinine 0.7 Est GFR ( Amer) > 60 Est GFR (Non-Af Amer) > 60 POC Glucose (mg/dL) 114 H 120 H Random Glucose 126 H Calcium 8.5 Phosphorus 3.4 Magnesium 1.2 L Total Bilirubin 0.2 AST 34 ALT 20 Alkaline Phosphatase 138 H D Total Protein 6.6 Albumin 3.1 L Globulin 3.5 Albumin/Globulin Ratio 0.9 L Microbiology 03/31/18 10:49 Blood Blood Culture - Final NO GROWTH AFTER 5 DAYS 03/31/18 10:49 Blood Gram Stain - Final TEST NOT PERFORMED 03/31/18 10:49 Blood Blood Culture - Final NO GROWTH AFTER 5 DAYS 03/31/18 10:49 Blood Gram Stain - Final TEST NOT PERFORMED 03/31/18 20:45 Urine,Catheterized Urine Culture - Final Escherichia Coli 04/01/18 15:00 Stool Stool Culture - Final NO SALMONELLA, SHIGELLA OR CAMPYLOBACTER ISOLATED. 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 clinically better. she has remained afebrile normal wbc count blood cx- neg Urine cx from - esbl e,coli but UA from 03/23/2018- negative repeat UA done by straight cath- positive for LE, neg for nitrates, repeat urine cx - esbl e.coli stool c.diff- neg x 2 plan- advise to continue with IV meropenm for ESBL e.coli since pt. hsa MM undergoing chemo for this. advise total of 3-5 days. today is Day #3. no need to repeat urine cx. can check repeat UA ( straight cath only).
[2018-04-05 12:38] LABS: ALB/GLOB RATIO 0.9 (1.0-2.1); ALBUMIN 3.1 g/dL (3.5-5.0); ALT/SGPT 20 U/L (9-52); AST/SGOT 34 U/L (14-36); BLOOD UREA NITROGEN 6 mg/dl (7-17); CALCIUM 8.5 mg/dL (8.4-10.2); GFR NON-AFRICAN AMERICAN > 60
--- NOTE | 2018-04-05 12:58 | CP.PCM.PN ---
Subjective - Date & Time of Evaluation Date of Evaluation: 04/05/18 Time of Evaluation: 12:54 - Subjective Subjective: No acute overnight events. Patient seen and examined with Dr. Neumann. Daughter is bedside. Patient feeling better. Not eating too much, but has good appetite. No diarrhea today. Hemodynamically stable, afebrile. Participating with PT. Replete lytes as needed. Merrem day #3 for ESBL+ urine. Awaiting placement for further rehabilitation. Objective - Vital Signs/Intake and Output Vital Signs (last 24 hours): Temp Pulse Resp BP Pulse Ox 97.8 F 96 H 18 112/55 L 97 04/05/18 11:44 04/05/18 11:44 04/05/18 11:44 04/05/18 11:44 04/05/18 11:44 - Medications Medications: Current Medications Albuterol/Ipratropium (Duoneb 3 Mg/0.5 Mg (3 Ml) Ud) 3 ml INH RQ6 PRN PRN Reason: Shortness of Breath Last Admin: 03/28/18 13:29 Dose: 3 ml Amiloride HCl (Amiloride 5 Mg Tab) 5 mg PO DAILY [facility] Last Admin: 04/05/18 08:35 Dose: 5 mg Aripiprazole (Abilify) 2 mg PO HS [facility] Last Admin: 04/04/18 21:33 Dose: 2 mg Aspirin (Ecotrin) 81 mg PO DAILY [facility] Last Admin: 04/05/18 08:47 Dose: 81 mg Atorvastatin Calcium (Lipitor) 20 mg PO DAILY@2200 [facility] Last Admin: 04/04/18 21:33 Dose: 20 mg Benzocaine/Menthol (Cepacol Sore Throat) 1 kaitlyn PO Q2 PRN PRN Reason: Sore Throat Last Admin: 04/04/18 15:05 Dose: 1 kaitlyn Benztropine Mesylate (Cogentin) 1 mg PO Q12 [facility] Last Admin: 04/05/18 08:36 Dose: 1 mg Bortezomib (Velcade) 3.5 mg IVP [facility] Last Admin: 03/29/18 16:05 Dose: Not Given Buspirone HCl (Buspar) 15 mg PO Q12 [facility] Last Admin: 04/05/18 08:35 Dose: 15 mg Calcitriol (Rocaltrol) 0.25 mcg PO MWF [facility] Calcium Carbonate (Oscal) 500 mg PO BID [facility] Last Admin: 04/05/18 08:47 Dose: 500 mg Cholecalciferol (Vitamin D) 1,000 intlu PO DAILY [facility] Last Admin: 04/05/18 08:37 Dose: 1,000 intlu Clonazepam (Klonopin) 0.5 mg PO DAILY PRN PRN Reason: Anxiety Dextrose (Dextrose 50% Inj) 0 ml IV STAT PRN; Protocol PRN Reason: Hypoglycemia Protocol Dextrose (Glutose 15) 0 gm PO ONCE PRN; Protocol PRN Reason: Hypoglycemia Protocol Dimethicone (Proshield Plus Skin Protectant) 1 applic TOP Q8 PRN PRN Reason: Other Last Admin: 04/03/18 09:29 Dose: 1 applic Duloxetine HCl (Cymbalta) 60 mg PO DAILY [facility] Last Admin: 04/05/18 08:36 Dose: 60 mg Enalapril Maleate (Vasotec) 5 mg PO DAILY [facility] Enoxaparin Sodium (Lovenox) 40 mg SC DAILY [facility]; Protocol Last Admin: 04/05/18 08:37 Dose: 40 mg Escitalopram Oxalate (Lexapro) 10 mg PO DAILY [facility] Last Admin: 04/05/18 08:37 Dose: 10 mg Famotidine (Pepcid) 40 mg IVP DAILY [facility] Last Admin: 04/05/18 08:46 Dose: 40 mg Ferrous Sulfate (Feosol) 325 mg PO DAILY [facility] Last Admin: 03/25/18 08:45 Dose: 325 mg Gabapentin (Neurontin) 100 mg PO TID [facility] Last Admin: 04/05/18 08:36 Dose: 100 mg Glucagon (Glucagen Diagnostic Kit) 0 mg IM STAT PRN; Protocol PRN Reason: Hypoglycemia Protocol Home Med (Riociguat [Adempas]) 2 mg PO TID [facility] Last Admin: 04/05/18 08:38 Dose: 2 mg Hydrocortisone (Cortef) 10 mg PO [facility] Last Admin: 04/04/18 21:33 Dose: 10 mg Meropenem 1 gm/ Sodium (Chloride) 100 mls @ 100 mls/hr IVPB Q8 [facility]; Protocol Stop: 04/05/18 17:01 Last Admin: 04/05/18 08:34 Dose: 100 mls/hr Insulin Detemir (Levemir) 10 units SC [facility] Last Admin: 04/04/18 23:28 Dose: 10 units Insulin Human Lispro (Humalog) 5 units SC TID [facility] Last Admin: 03/24/18 09:12 Dose: Not Given Insulin Human Lispro (Humalog) 0 units SC ACCU-CHECK [facility]; Protocol Last Admin: 04/05/18 12:44 Dose: Not Given Levothyroxine Sodium (Synthroid) 100 mcg PO DAILY@0630 [facility] Last Admin: 04/05/18 06:30 Dose: 100 mcg Magnesium Chloride (Slow-Mag) 64 mg PO DAILY [facility] Last Admin: 04/04/18 09:03 Dose: 64 mg Magnesium Oxide (Mag-Ox) 400 mg PO BID [facility] Last Admin: 04/03/18 09:29 Dose: 400 mg Metformin HCl (Glucophage) 500 mg PO BID [facility] Last Admin: 03/24/18 09:07 Dose: 500 mg Sodium Phosphate (Potassium/Sodium Phosphate) 250 mg PO BID [facility] Stop: 04/05/18 17:01 Last Admin: 04/05/18 12:45 Dose: 250 mg Torsemide (Demadex) 20 mg PO DAILY [facility] Last Admin: 04/01/18 09:57 Dose: 20 mg - Labs Labs: 04/04/18 04:25 04/05/18 11:47 PT 11.8 Seconds (9.8-13.1) 03/23/18 17:02 INR 1.0 03/23/18 17:02 APTT 29.2 Seconds (25.6-37.1) 03/23/18 17:02 - Constitutional Appears: Non-toxic (pleasant morbidly obese female) - Head Exam Head Exam: ATRAUMATIC, NORMAL INSPECTION, NORMOCEPHALIC - ENT Exam ENT Exam: Mucous Membranes Moist - Respiratory Exam Respiratory Exam: Clear to Ausculation Bilateral, NORMAL BREATHING PATTERN. absent: Decreased Breath Sounds, Rales, Rhonchi, Wheezes - Cardiovascular Exam Cardiovascular Exam: REGULAR RHYTHM, +S1, +S2 - GI/Abdominal Exam GI & Abdominal Exam: Soft. 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 Pt has had many metabolic derangements that are likely contributing to her AMS. Her electrolytes are now WNL. She is awake alert and oriented, she continues to have visual/auditory hallucinations that are benign and are baseline. She has +ESBL in urine, but is afebrile without leukocytosis. Blood cultures have been negative. Repeat Ucx +ESBL in urine. She is now on Merrem, she will complete day 3 today. Patient tolerating regular diet, diarrhea resolved. Stool Cx and lytes were sent, stool cultures neg. Transfer to med/surg Plan for TCU placement pending SW. PLAN: >+ESBL in urine culture -- afebrile without leukocytosis -- +ESBL, ID is on board -- Merrem started 04/02/18 to be given for 3 days as per ID. (Day#3 today) >Metabolic Derangements: >Hypomagnesemia --chronic --start slo-mag as mag ox may be contributing to diarrhea. continue slomag and increase if remains hypomagnesemic --Discontinued PPI as this can cause hypoMG >Hypophosphatemia --Continue to monitor - replete prn > Hypocalcemia --Chronic, nl with correction --Likely due to MM, restarted Calcitriol, Ca Co3, and Vitamin D yesterday --PTH high 105, may have parathyroid dysfunction >Deconditioning --Likely from prolonged immobility during acute illness --PT /OT - for TCU. >IDDM --Metformin held, Meal time Bolus held, put on low sliding scale and reduced basal insulin given pt's poor intake and low sugars --Accuchecks --Hypoglycemic protocol --ISS, low dose >Multiple Myeloma --likely cause of anemia --Heme/Onc on board: Dr. Vilchis --Bortezomib on hold, will administer in outpatient setting >CHF/HTN --Echocardiogram on 08/25/17 showed LVEF 60-65%, grade I abnormal relaxation pattern. --Possibly diastolic dysfunction-CHF --Holding torsemide for now as per nephro; will monitor volume status >COPD/Pulm HTN --Resumed home meds >DVT Prophylaxis --Lovenox 40mg SC daily --SCDs Hypercalcemia- resolved Ileus -resolved Altered Mental Status /Delirium- resolved D/w Dr. Neumann
[2018-04-05] MEDS: Magnesium Chloride 64 mg ER Tab PO SCH (13:39)
--- NOTE | 2018-04-05 20:55 | CP.PCM.PN ---
Subjective - Date & Time of Evaluation Date of Evaluation: 04/05/18 Time of Evaluation: 19:00 - Subjective Subjective: Feeling better. Objective - Vital Signs/Intake and Output Vital Signs (last 24 hours): Temp Pulse Resp BP Pulse Ox 98.3 F 91 H 16 112/67 100 04/05/18 16:25 04/05/18 16:25 04/05/18 16:25 04/05/18 16:25 04/05/18 16:25 - Medications Medications: Current Medications Albuterol/Ipratropium (Duoneb 3 Mg/0.5 Mg (3 Ml) Ud) 3 ml INH RQ6 PRN PRN Reason: Shortness of Breath Last Admin: 03/28/18 13:29 Dose: 3 ml Amiloride HCl (Amiloride 5 Mg Tab) 5 mg PO DAILY [facility] Last Admin: 04/05/18 08:35 Dose: 5 mg Aripiprazole (Abilify) 2 mg PO HS [facility] Last Admin: 04/04/18 21:33 Dose: 2 mg Aspirin (Ecotrin) 81 mg PO DAILY [facility] Last Admin: 04/05/18 08:47 Dose: 81 mg Atorvastatin Calcium (Lipitor) 20 mg PO DAILY@2200 [facility] Last Admin: 04/04/18 21:33 Dose: 20 mg Benzocaine/Menthol (Cepacol Sore Throat) 1 kaitlyn PO Q2 PRN PRN Reason: Sore Throat Last Admin: 04/04/18 15:05 Dose: 1 kaitlyn Benztropine Mesylate (Cogentin) 1 mg PO Q12 [facility] Last Admin: 04/05/18 08:36 Dose: 1 mg Bortezomib (Velcade) 3.5 mg IVP [facility] Last Admin: 03/29/18 16:05 Dose: Not Given Buspirone HCl (Buspar) 15 mg PO Q12 [facility] Last Admin: 04/05/18 08:35 Dose: 15 mg Calcitriol (Rocaltrol) 0.25 mcg PO MWF [facility] Calcium Carbonate (Oscal) 500 mg PO BID [facility] Last Admin: 04/05/18 16:45 Dose: 500 mg Cholecalciferol (Vitamin D) 1,000 intlu PO DAILY [facility] Last Admin: 04/05/18 08:37 Dose: 1,000 intlu Clonazepam (Klonopin) 0.5 mg PO DAILY PRN PRN Reason: Anxiety Dextrose (Dextrose 50% Inj) 0 ml IV STAT PRN; Protocol PRN Reason: Hypoglycemia Protocol Dextrose (Glutose 15) 0 gm PO ONCE PRN; Protocol PRN Reason: Hypoglycemia Protocol Dimethicone (Proshield Plus Skin Protectant) 1 applic TOP Q8 PRN PRN Reason: Other Last Admin: 04/03/18 09:29 Dose: 1 applic Duloxetine HCl (Cymbalta) 60 mg PO DAILY [facility] Last Admin: 04/05/18 08:36 Dose: 60 mg Enalapril Maleate (Vasotec) 5 mg PO DAILY [facility] Enoxaparin Sodium (Lovenox) 40 mg SC DAILY [facility]; Protocol Last Admin: 04/05/18 08:37 Dose: 40 mg Escitalopram Oxalate (Lexapro) 10 mg PO DAILY [facility] Last Admin: 04/05/18 08:37 Dose: 10 mg Famotidine (Pepcid) 40 mg IVP DAILY [facility] Last Admin: 04/05/18 08:46 Dose: 40 mg Ferrous Sulfate (Feosol) 325 mg PO DAILY [facility] Last Admin: 03/25/18 08:45 Dose: 325 mg Gabapentin (Neurontin) 100 mg PO TID [facility] Last Admin: 04/05/18 16:45 Dose: 100 mg Glucagon (Glucagen Diagnostic Kit) 0 mg IM STAT PRN; Protocol PRN Reason: Hypoglycemia Protocol Home Med (Riociguat [Adempas]) 2 mg PO TID [facility] Last Admin: 04/05/18 16:46 Dose: 2 mg Hydrocortisone (Cortef) 10 mg PO [facility] Last Admin: 04/04/18 21:33 Dose: 10 mg Insulin Detemir (Levemir) 10 units SC [facility] Last Admin: 04/04/18 23:28 Dose: 10 units Insulin Human Lispro (Humalog) 5 units SC TID [facility] Last Admin: 03/24/18 09:12 Dose: Not Given Insulin Human Lispro (Humalog) 0 units SC ACCU-CHECK [facility]; Protocol Last Admin: 04/05/18 16:42 Dose: Not Given Levothyroxine Sodium (Synthroid) 100 mcg PO DAILY@0630 [facility] Last Admin: 04/05/18 06:30 Dose: 100 mcg Magnesium Chloride (Slow-Mag) 64 mg PO DAILY [facility] Last Admin: 04/05/18 13:39 Dose: 64 mg Magnesium Oxide (Mag-Ox) 400 mg PO BID [facility] Last Admin: 04/03/18 09:29 Dose: 400 mg Metformin HCl (Glucophage) 500 mg PO BID [facility] Last Admin: 03/24/18 09:07 Dose: 500 mg Torsemide (Demadex) 20 mg PO DAILY [facility] Last Admin: 04/01/18 09:57 Dose: 20 mg - Labs Labs: 04/04/18 04:25 04/05/18 11:47 PT 11.8 Seconds (9.8-13.1) 03/23/18 17:02 INR 1.0 03/23/18 17:02 APTT 29.2 Seconds (25.6-37.1) 03/23/18 17:02 - Head Exam Head Exam: ATRAUMATIC - Eye Exam Eye Exam: Normal appearance - ENT Exam ENT Exam: Mucous Membranes Dry - Respiratory Exam Respiratory Exam: NORMAL BREATHING PATTERN - Cardiovascular Exam Cardiovascular Exam: +S1, +S2 - GI/Abdominal Exam GI & Abdominal Exam: Normal Bowel Sounds Assessment and Plan (1) Multiple myeloma Assessment & Plan: outpatient treatment Status: Chronic (2) Hypercalcemia Assessment & Plan: resolved Status: Resolved
[2018-04-05] MEDS: Insulin Detemir 100 Units/ml Inj SC SCH (22:17)
--- NOTE | 2018-04-05 22:50 | CP.PCM.PN ---
Subjective - Date & Time of Evaluation Date of Evaluation: 04/05/18 Time of Evaluation: 11:00 - Subjective Subjective: Patient reports feeling well; appetite subpar; walked with PT yesterday; breathing well; no diarrhea; Objective - Vital Signs/Intake and Output Vital Signs (last 24 hours): Temp Pulse Resp BP Pulse Ox 98.9 F 78 18 116/61 99 04/05/18 20:53 04/05/18 20:53 04/05/18 20:53 04/05/18 20:53 04/05/18 20:53 - Medications Medications: Current Medications Albuterol/Ipratropium (Duoneb 3 Mg/0.5 Mg (3 Ml) Ud) 3 ml INH RQ6 PRN PRN Reason: Shortness of Breath Last Admin: 03/28/18 13:29 Dose: 3 ml Amiloride HCl (Amiloride 5 Mg Tab) 5 mg PO DAILY [facility] Last Admin: 04/05/18 08:35 Dose: 5 mg Aripiprazole (Abilify) 2 mg PO HS [facility] Last Admin: 04/05/18 22:16 Dose: 2 mg Aspirin (Ecotrin) 81 mg PO DAILY [facility] Last Admin: 04/05/18 08:47 Dose: 81 mg Atorvastatin Calcium (Lipitor) 20 mg PO DAILY@2200 [facility] Last Admin: 04/05/18 22:16 Dose: 20 mg Benzocaine/Menthol (Cepacol Sore Throat) 1 kaitlyn PO Q2 PRN PRN Reason: Sore Throat Last Admin: 04/04/18 15:05 Dose: 1 kaitlyn Benztropine Mesylate (Cogentin) 1 mg PO Q12 [facility] Last Admin: 04/05/18 22:16 Dose: 1 mg Bortezomib (Velcade) 3.5 mg IVP TUTH [facility] Last Admin: 03/29/18 16:05 Dose: Not Given Buspirone HCl (Buspar) 15 mg PO Q12 [facility] Last Admin: 04/05/18 22:16 Dose: 15 mg Calcitriol (Rocaltrol) 0.25 mcg PO MWF [facility] Calcium Carbonate (Oscal) 500 mg PO BID [facility] Last Admin: 04/05/18 16:45 Dose: 500 mg Cholecalciferol (Vitamin D) 1,000 intlu PO DAILY [facility] Last Admin: 04/05/18 08:37 Dose: 1,000 intlu Clonazepam (Klonopin) 0.5 mg PO DAILY PRN PRN Reason: Anxiety Dextrose (Dextrose 50% Inj) 0 ml IV STAT PRN; Protocol PRN Reason: Hypoglycemia Protocol Dextrose (Glutose 15) 0 gm PO ONCE PRN; Protocol PRN Reason: Hypoglycemia Protocol Dimethicone (Proshield Plus Skin Protectant) 1 applic TOP Q8 PRN PRN Reason: Other Last Admin: 04/03/18 09:29 Dose: 1 applic Duloxetine HCl (Cymbalta) 60 mg PO DAILY [facility] Last Admin: 04/05/18 08:36 Dose: 60 mg Enalapril Maleate (Vasotec) 5 mg PO DAILY [facility] Enoxaparin Sodium (Lovenox) 40 mg SC DAILY [facility]; Protocol Last Admin: 04/05/18 08:37 Dose: 40 mg Escitalopram Oxalate (Lexapro) 10 mg PO DAILY [facility] Last Admin: 04/05/18 08:37 Dose: 10 mg Famotidine (Pepcid) 40 mg IVP DAILY [facility] Last Admin: 04/05/18 08:46 Dose: 40 mg Ferrous Sulfate (Feosol) 325 mg PO DAILY [facility] Last Admin: 03/25/18 08:45 Dose: 325 mg Gabapentin (Neurontin) 100 mg PO TID [facility] Last Admin: 04/05/18 16:45 Dose: 100 mg Glucagon (Glucagen Diagnostic Kit) 0 mg IM STAT PRN; Protocol PRN Reason: Hypoglycemia Protocol Home Med (Riociguat [Adempas]) 2 mg PO TID [facility] Last Admin: 04/05/18 16:46 Dose: 2 mg Hydrocortisone (Cortef) 10 mg PO [facility] Last Admin: 04/05/18 22:16 Dose: 10 mg Insulin Detemir (Levemir) 10 units SC [facility] Last Admin: 04/05/18 22:17 Dose: 10 units Insulin Human Lispro (Humalog) 5 units SC TID [facility] Last Admin: 03/24/18 09:12 Dose: Not Given Insulin Human Lispro (Humalog) 0 units SC ACCU-CHECK [facility]; Protocol Last Admin: 04/05/18 22:17 Dose: Not Given Levothyroxine Sodium (Synthroid) 100 mcg PO DAILY@0630 [facility] Last Admin: 04/05/18 06:30 Dose: 100 mcg Magnesium Chloride (Slow-Mag) 64 mg PO DAILY [facility] Last Admin: 04/05/18 13:39 Dose: 64 mg Magnesium Oxide (Mag-Ox) 400 mg PO BID [facility] Last Admin: 04/03/18 09:29 Dose: 400 mg Metformin HCl (Glucophage) 500 mg PO BID [facility] Last Admin: 03/24/18 09:07 Dose: 500 mg Torsemide (Demadex) 20 mg PO DAILY [facility] Last Admin: 04/01/18 09:57 Dose: 20 mg - Labs Labs: 04/04/18 04:25 04/05/18 11:47 PT 11.8 Seconds (9.8-13.1) 03/23/18 17:02 INR 1.0 03/23/18 17:02 APTT 29.2 Seconds (25.6-37.1) 03/23/18 17:02 - Constitutional Appears: Non-toxic, No Acute Distress - Eye Exam Eye Exam: Normal appearance. absent: Scleral icterus - Respiratory Exam Respiratory Exam: Clear to Ausculation Bilateral. absent: Respiratory Distress - Cardiovascular Exam Cardiovascular Exam: RRR, +S1, +S2 - GI/Abdominal Exam GI & Abdominal Exam: Soft. absent: Distended, Tenderness - Extremities Exam Additional comments: no edema; - Neurological Exam Neurological Exam: Alert, Awake - Psychiatric Exam Psychiatric exam: Normal Affect, Normal Mood. absent: Agitated - Skin Skin Exam: Warm. absent: Cyanosis Assessment and Plan (1) Electrolyte abnormality Assessment & Plan: Hypocalcemia resolved with Ca supplementation and calcitriol; should continue to monitor closely and decrease calcitriol dosing to the minimal amount needed (just decreased to qMWF); Hypomagnesemia persistent; amiloride just started to decrease renal mag wasting; question about what level of serum mag is actually necessary; if patient is asymptomatic and without manifestations of hypomagnesmia (neuromuscular manifestations, EKG changes, hypocalcemia/hypokalemia), then we can likely aim for serum Mag that is slightly below reference range; -continue slow-mag (patient tolerating well); Status: Acute (2) Hypercalcemia Status: Resolved (3) Hypomagnesemia Status: Chronic (4) CHF (congestive heart failure) Status: Chronic (5) Acute kidney injury Status: Acute
[2018-04-06] MEDS: Levothyroxine 100 MCG TAB PO SCH (06:40)
[2018-04-06] MEDS: Cholecalciferol 1,000 INTLU TAB PO SCH (09:32)
[2018-04-06] MEDS: Enoxaparin 40 mg Syringe SC SCH (09:33)
[2018-04-06] MEDS: RIOCIGUAT 2 MG PO SCH ×2 (09:34→13:33)
[2018-04-06] MEDS: Insulin Lispro (humaLOG) 100 Units/ml Inj SC SCH ×2 (09:35→11:59)
[2018-04-06] MEDS: Magnesium Chloride 64 mg ER Tab PO SCH (10:24)
--- NOTE | 2018-04-06 13:56 | CP.PCM.PN ---
Subjective - Date & Time of Evaluation Date of Evaluation: 04/06/18 Time of Evaluation: 08:00 - Subjective Subjective: Pt seen this morning participating with PT. Denies cp, osb, abdominal pain. Has been eating some of her food, but reports difficulty swallowing, stating it food travels slowly down her throat. Discussed plan with daughter, may send to TCU vs home w/ PT. Objective - Vital Signs/Intake and Output Vital Signs (last 24 hours): Temp Pulse Resp BP Pulse Ox 98.0 F 118 H 20 126/80 99 04/06/18 12:18 04/06/18 12:18 04/06/18 12:18 04/06/18 12:18 04/06/18 12:18 - Medications Medications: Current Medications Albuterol/Ipratropium (Duoneb 3 Mg/0.5 Mg (3 Ml) Ud) 3 ml INH RQ6 PRN PRN Reason: Shortness of Breath Last Admin: 03/28/18 13:29 Dose: 3 ml Amiloride HCl (Amiloride 5 Mg Tab) 5 mg PO DAILY [facility] Last Admin: 04/06/18 09:33 Dose: 5 mg Aripiprazole (Abilify) 2 mg PO HS [facility] Last Admin: 04/05/18 22:16 Dose: 2 mg Aspirin (Ecotrin) 81 mg PO DAILY [facility] Last Admin: 04/06/18 09:32 Dose: 81 mg Atorvastatin Calcium (Lipitor) 20 mg PO DAILY@2200 [facility] Last Admin: 04/05/18 22:16 Dose: 20 mg Benzocaine/Menthol (Cepacol Sore Throat) 1 kaitlyn PO Q2 PRN PRN Reason: Sore Throat Last Admin: 04/04/18 15:05 Dose: 1 kaitlyn Benztropine Mesylate (Cogentin) 1 mg PO Q12 [facility] Last Admin: 04/06/18 09:32 Dose: 1 mg Bortezomib (Velcade) 3.5 mg IVP TUTH [facility] Last Admin: 03/29/18 16:05 Dose: Not Given Buspirone HCl (Buspar) 15 mg PO Q12 [facility] Last Admin: 04/06/18 09:32 Dose: 15 mg Calcitriol (Rocaltrol) 0.25 mcg PO MWF [facility] Last Admin: 04/06/18 10:23 Dose: 0.25 mcg Calcium Carbonate (Oscal) 500 mg PO BID [facility] Last Admin: 04/06/18 09:32 Dose: 500 mg Cholecalciferol (Vitamin D) 1,000 intlu PO DAILY [facility] Last Admin: 04/06/18 09:32 Dose: 1,000 intlu Clonazepam (Klonopin) 0.5 mg PO DAILY PRN PRN Reason: Anxiety Dextrose (Dextrose 50% Inj) 0 ml IV STAT PRN; Protocol PRN Reason: Hypoglycemia Protocol Dextrose (Glutose 15) 0 gm PO ONCE PRN; Protocol PRN Reason: Hypoglycemia Protocol Dimethicone (Proshield Plus Skin Protectant) 1 applic TOP Q8 PRN PRN Reason: Other Last Admin: 04/03/18 09:29 Dose: 1 applic Duloxetine HCl (Cymbalta) 60 mg PO DAILY [facility] Last Admin: 04/06/18 10:23 Dose: 60 mg Enalapril Maleate (Vasotec) 5 mg PO DAILY [facility] Enoxaparin Sodium (Lovenox) 40 mg SC DAILY [facility]; Protocol Last Admin: 04/06/18 09:33 Dose: 40 mg Escitalopram Oxalate (Lexapro) 10 mg PO DAILY [facility] Last Admin: 04/06/18 09:32 Dose: 10 mg Famotidine (Pepcid) 40 mg IVP DAILY [facility] Last Admin: 04/06/18 12:19 Dose: 40 mg Ferrous Sulfate (Feosol) 325 mg PO DAILY [facility] Last Admin: 03/25/18 08:45 Dose: 325 mg Gabapentin (Neurontin) 100 mg PO TID [facility] Last Admin: 04/06/18 13:33 Dose: 100 mg Glucagon (Glucagen Diagnostic Kit) 0 mg IM STAT PRN; Protocol PRN Reason: Hypoglycemia Protocol Home Med (Riociguat [Adempas]) 2 mg PO TID [facility] Last Admin: 04/06/18 13:33 Dose: 2 mg Hydrocortisone (Cortef) 10 mg PO [facility] Last Admin: 04/05/18 22:16 Dose: 10 mg Insulin Detemir (Levemir) 10 units SC [facility] Last Admin: 04/05/18 22:17 Dose: 10 units Insulin Human Lispro (Humalog) 5 units SC TID [facility] Last Admin: 03/24/18 09:12 Dose: Not Given Insulin Human Lispro (Humalog) 0 units SC ACCU-CHECK [facility]; Protocol Last Admin: 04/06/18 11:59 Dose: Not Given Levothyroxine Sodium (Synthroid) 100 mcg PO DAILY@0630 [facility] Last Admin: 04/06/18 06:40 Dose: 100 mcg Magnesium Chloride (Slow-Mag) 64 mg PO DAILY [facility] Last Admin: 04/06/18 10:24 Dose: 64 mg Magnesium Oxide (Mag-Ox) 400 mg PO BID [facility] Last Admin: 04/03/18 09:29 Dose: 400 mg Metformin HCl (Glucophage) 500 mg PO BID [facility] Last Admin: 03/24/18 09:07 Dose: 500 mg Torsemide (Demadex) 20 mg PO DAILY [facility] Last Admin: 04/01/18 09:57 Dose: 20 mg - Labs Labs: 04/04/18 04:25 04/05/18 11:47 PT 11.8 Seconds (9.8-13.1) 03/23/18 17:02 INR 1.0 03/23/18 17:02 APTT 29.2 Seconds (25.6-37.1) 03/23/18 17:02 - Constitutional Appears: No Acute Distress - Head Exam Head Exam: NORMAL INSPECTION - Eye Exam Eye Exam: Normal appearance - ENT Exam ENT Exam: Mucous Membranes Moist - Neck Exam Neck Exam: Normal Inspection - Respiratory Exam Respiratory Exam: Clear to Ausculation Bilateral. absent: Rales, Wheezes - Cardiovascular Exam Cardiovascular Exam: REGULAR RHYTHM, +S1, +S2 - GI/Abdominal Exam GI & Abdominal Exam: Soft, Normal Bowel Sounds. 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 Pt has had many metabolic derangements that are likely contributing to her AMS. Her electrolytes are now WNL. She is awake alert and oriented, she continues to have visual/auditory hallucinations that are benign and are baseline. She has +ESBL in urine, but is afebrile without leukocytosis. Blood cultures have been negative. Repeat Ucx +ESBL in urine. She is now on Merrem, she will complete day 3 today. Patient tolerating regular diet, diarrhea resolved. Stool Cx and lytes were sent, stool cultures neg. Discharge today to TCU. PLAN: >+ESBL in urine culture -- afebrile without leukocytosis -- +ESBL, ID is on board -- Merrem started 04/02/18, completed 3 days as per ID >Metabolic Derangements: >Hypomagnesemia --chronic --start slo-mag as mag ox may be contributing to diarrhea. continue slomag and increase if remains hypomagnesemic --Discontinued PPI as this can cause hypoMG >Hypophosphatemia --Continue to monitor - replete prn > Hypocalcemia --Chronic, nl with correction --Likely due to MM, restarted Calcitriol, Ca Co3, and Vitamin D yesterday --PTH high 105, may have parathyroid dysfunction >Deconditioning --Likely from prolonged immobility during acute illness --PT /OT - for TCU. >IDDM --Metformin held, Meal time Bolus held, put on low sliding scale and reduced basal insulin given pt's poor intake and low sugars --Accuchecks --Hypoglycemic protocol --ISS, low dose >Multiple Myeloma --likely cause of anemia --Heme/Onc on board: Dr. Vilchis --Bortezomib on hold, will administer in outpatient setting >CHF/HTN --Echocardiogram on 08/25/17 showed LVEF 60-65%, grade I abnormal relaxation pattern. --Possibly diastolic dysfunction-CHF --Holding torsemide for now as per nephro; will monitor volume status >COPD/Pulm HTN --Resumed home meds >DVT Prophylaxis --Lovenox 40mg SC daily --SCDs Hypercalcemia- resolved Ileus -resolved Altered Mental Status /Delirium- resolved D/w Dr. Neumann
[2018-04-06 16:48] VITALS: BP 102/70; PULSE 95; RESP 16; TEMP 98; O2SAT 97
--- NOTE | 2018-04-06 17:24 | CP.PCM.DIS ---
Provider - Provider Date of Admission: 03/23/18 19:34 Attending physician: David Neumann MD Consults: 03/23/18 20:10 Hematology Oncology Consult Stat Comment: Consulting Provider: Luis Eduardo Vilchis Consulting Physician: Luis Eduardo Vilchis Reason for Consult: Multiple myeloma Nephrology Consult Stat Comment: Consulting Provider: Yoan Nava Consulting Physician: Yoan Nava Reason for Consult: Hypercalcemia, multiple myeloma 03/28/18 10:30 Neurology Consult Routine Comment: Consulting Provider: Jacques Marrero Consulting Physician: Jacques Marrero Reason for Consult: AMS 03/31/18 09:47 Infectious Disease Consult Routine Comment: Consulting Provider: Megan Rogers Consulting Physician: Megan Rogers Reason for Consult: ESBL in Urine Time Spent in preparation of Discharge (in minutes): 35 Diagnosis - Discharge Diagnosis (1) Hypercalcemia Status: Resolved (2) Altered mental state Status: Resolved (3) Ileus Status: Chronic (4) 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 03/28/18 11:30 Blood Blood Culture - Final NO GROWTH AFTER 5 DAYS 03/28/18 11:30 Blood Gram Stain - Final TEST NOT PERFORMED 03/28/18 11:30 Blood Blood Culture - Final NO GROWTH AFTER 5 DAYS 03/28/18 11:30 Blood Gram Stain - Final TEST NOT PERFORMED 03/28/18 17:36 Urine,Catheterized Urine Culture - Final Escherichia Coli Most Recent Lab Values WBC 5.6 K/uL (4.8-10.8) 04/04/18 04:25 RBC 3.61 Mil/uL (3.80-5.20) L 04/04/18 04:25 Hgb 10.3 g/dL (12.0-16.0) L 04/04/18 04:25 Hct 31.3 % (34.0-47.0) L 04/04/18 04:25 MCV 86.9 fl (81.0-99.0) 04/04/18 04:25 MCH 28.5 pg (27.0-31.0) 04/04/18 04:25 MCHC 32.8 g/dL (33.0-37.0) L 04/04/18 04:25 RDW 17.5 % (11.5-14.5) H 04/04/18 04:25 Plt Count 213 K/uL (130-400) 04/04/18 04:25 MPV 8.9 fl (7.2-11.7) 03/27/18 06:45 Neut % (Auto) 78.6 % (50.0-75.0) H 03/27/18 06:45 Lymph % (Auto) 9.2 % (20.0-40.0) L 03/27/18 06:45 Lamar % (Auto) 12.0 % (0.0-10.0) H 03/27/18 06:45 Eos % (Auto) 0.1 % (0.0-4.0) 03/27/18 06:45 Baso % (Auto) 0.1 % (0.0-2.0) 03/27/18 06:45 Neut # (Auto) 5.8 K/uL (1.8-7.0) 03/27/18 06:45 Lymph # (Auto) 0.7 K/uL (1.0-4.3) L 03/27/18 06:45 Lamar # (Auto) 0.9 K/uL (0.0-0.8) H 03/27/18 06:45 Eos # (Auto) 0.0 K/uL (0.0-0.7) 03/27/18 06:45 Baso # (Auto) 0.0 K/uL (0.0-0.2) 03/27/18 06:45 Neutrophils % (Manual) 77 % (42-75) H 03/27/18 06:45 Band Neutrophils % 4 % (0-2) H 03/27/18 06:45 Lymphocytes % (Manual) 8 % (20-50) L 03/27/18 06:45 Monocytes % (Manual) 11 % (0-10) H 03/27/18 06:45 Eosinophils % (Manual) 1 % (0-7) 03/23/18 17:02 Platelet Estimate Normal (NORMAL) 03/27/18 06:45 Anisocytosis (manual) Slight 03/27/18 06:45 Microcytosis (manual) Slight 03/23/18 17:02 Tear Drop Cells Slight 03/23/18 17:02 PT 11.8 Seconds (9.8-13.1) 03/23/18 17:02 INR 1.0 03/23/18 17:02 APTT 29.2 Seconds (25.6-37.1) 03/23/18 17:02 pCO2 37 mm/Hg (35-45) 03/28/18 13:07 pO2 135 mm/Hg (80-100) H 03/28/18 13:07 HCO3 23.8 mmol/L (21-28) 03/28/18 13:07 ABG pH 7.40 (7.35-7.45) 03/28/18 13:07 ABG Total CO2 24.0 mmol/L (22-28) 03/28/18 13:07 ABG O2 Saturation 97.9 % (95-98) 03/28/18 13:07 ABG Base Excess -1.5 mmol/L (-2.0-3.0) 03/28/18 13:07 ABG Carboxyhemoglobin 1.4 % (0.5-1.5) 03/23/18 00:09 POC ABG HHb (Measured) 3.8 % (0.0-5.0) 03/23/18 00:09 ABG Methemoglobin 0.6 % (0.0-3.0) 03/23/18 00:09 Lake Test Yes 03/28/18 13:07 ABG Potassium 3.6 mmol/L (3.6-5.2) 03/28/18 13:07 VBG pH 7.47 (7.32-7.43) H 03/23/18 00:09 VBG pCO2 43 mmHg (40-60) 03/23/18 00:09 VBG HCO3 30.3 mmol/L 03/23/18 00:09 VBG O2 Sat (Calc) 96.1 % (40-65) H 03/23/18 00:09 VBG Base Excess 6.9 mmol/L (0.0-2.0) H 03/23/18 00:09 VBG Hgb O2 Saturation 94.2 % (95.0-98.0) L 03/23/18 00:09 A-a O2 Difference 18.0 mm/Hg 03/28/18 13:07 Hemoglobin 10.6 g/dL (11.7-17.4) L 03/23/18 00:09 Sodium 138.0 mmol/L (132-148) 03/28/18 13:07 Chloride 112.0 mmol/L (98-107) H 03/28/18 13:07 Glucose 194 mg/dL (65-105) H 03/28/18 13:07 Lactate 0.9 mmol/L (0.7-2.1) 03/28/18 13:07 FiO2 28.0 % 03/28/18 13:07 Sodium 139 mmol/l (132-148) 04/05/18 11:47 Potassium 4.5 MMOL/L (3.6-5.0) 04/05/18 11:47 Chloride 102 mmol/L (98-107) 04/05/18 11:47 Carbon Dioxide 28 mmol/L (22-30) 04/05/18 11:47 Anion Gap 14 (10-20) 04/05/18 11:47 BUN 6 mg/dl (7-17) L 04/05/18 11:47 Creatinine 0.7 mg/dl (0.7-1.2) 04/05/18 11:47 Est GFR ( Amer) > 60 04/05/18 11:47 Est GFR (Non-Af Amer) > 60 04/05/18 11:47 POC Glucose (mg/dL) 118 mg/dL (65-110) H 04/06/18 10:49 Random Glucose 126 mg/dL (65-105) H 04/05/18 11:47 Uric Acid 6.4 mg/Dl (2.2-7.5) 03/26/18 08:20 Calcium 8.5 mg/dL (8.4-10.2) 04/05/18 11:47 Phosphorus 3.4 mg/dl (2.5-4.5) 04/05/18 11:47 Magnesium 1.2 MG/DL (1.6-2.3) L 04/05/18 11:47 Total Bilirubin 0.2 mg/dl (0.2-1.3) 04/05/18 11:47 AST 34 U/L (14-36) 04/05/18 11:47 ALT 20 U/L (9-52) 04/05/18 11:47 Alkaline Phosphatase 138 U/L (38-126) H D 04/05/18 11:47 Ammonia 17 umo/L (11-51) D 03/28/18 11:30 Troponin I 0.0210 ng/mL (0.00-0.120) 03/23/18 17:02 Total Protein 6.6 G/DL (6.3-8.2) 04/05/18 11:47 Albumin 3.1 g/dL (3.5-5.0) L 04/05/18 11:47 Globulin 3.5 gm/dL (2.2-3.9) 04/05/18 11:47 Albumin/Globulin Ratio 0.9 (1.0-2.1) L 04/05/18 11:47 Lipase 13 U/L (23-300) L 03/27/18 12:58 Vitamin B12 210 pg/mL (239-931) L 03/28/18 11:30 25-OH Vitamin D Total 40 ng/mL (30-100) 03/24/18 04:45 Procalcitonin 0.61 NG/ML (0.19-0.49) H 03/28/18 11:30 TSH 3rd Generation 5.85 mIU/ML (0.46-4.68) H 03/28/18 11:30 PTH Intact Whole Molec 5 pg/mL (14-64) L 03/24/18 04:45 Calcium (PTH Intact) 7.3 mg/dL (8.6-10.4) L 03/31/18 09:22 PTH w/Ion &Tot Calcium 105 pg/mL (14-64) H 03/31/18 09:22 PTH Related Protein 19 pg/mL (14-27) 03/24/18 04:45 Cortisol AM Sample 24.7 ug/dL (4.46-22.7) H 03/27/18 08:30 Arterial Blood Potassium 3.6 mmol/L (3.6-5.2) 03/28/18 13:07 Urine Color Straw (YELLOW) 04/01/18 18:30 Urine Clarity Cloudy (Clear) 04/01/18 18:30 Urine pH 5.0 (5.0-8.0) 04/01/18 18:30 Ur Specific [place] < 1.005 (1.003-1.030) 04/01/18 18:30 Urine Protein Negative mg/dL (NEGATIVE) 04/01/18 18:30 Urine Glucose (UA) Neg mg/dL (NEGATIVE) 04/01/18 18:30 Urine Ketones Negative mg/dL (NEGATIVE) 04/01/18 18:30 Urine Blood Small (NEGATIVE) 04/01/18 18:30 Urine Nitrate Negative (NEGATIVE) 04/01/18 18:30 Urine Bilirubin Negative (NEGATIVE) 04/01/18 18:30 Urine Urobilinogen 0.2-1.0 mg/dL (0.2-1.0) 04/01/18 18:30 Ur Leukocyte Esterase Mod Maggie/uL (Negative) 04/01/18 18:30 Urine RBC (Auto) 4 /hpf (0-3) H 04/01/18 18:30 Urine WBC Clumps (Auto) Mod /hpf (NONE) H 04/01/18 18:30 Urine Microscopic WBC 76 /hpf (0-5) H 04/01/18 18:30 Ur Squamous Epith Cells < 1 /hpf (0-5) 04/01/18 18:30 Urine Bacteria Rare (<OCC) 04/01/18 18:30 Hyaline Casts 0-2 /hpf (0-2) 04/01/18 18:30 Ur Random Creatinine 60.5 mg/dL 03/24/18 13:40 U Random Total Protein 38 mg/L 03/24/18 13:40 Ur Random Sodium 171 mmol/L 03/30/18 18:38 Urine Creatinine 63 mg/dL (20-275) 03/24/18 13:40 Urine Microalbumin 1.4 mg/dL 03/24/18 13:40 Microalb/Creat Ratio 22 (<30) 03/24/18 13:40 Stool Occult Blood Negative (NEGATIVE) 03/27/18 15:15 Stool Leukocytes, Qual Negative (NEGATIVE) 03/27/18 19:34 C. 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 Pt presented with Calcium of 14. She was treated with aggressive fluid hydration and calcitonin for 2 days. Pt's calcium returned to normal limits and her mental status improved. During this time, she was evaluated by neurology due to her mental status and had EEG which ruled out seizures. Her electrolytes are now WNL. She developed diarrhea and was found on abdominal CT to have a small bowel Ileus. She had an NG tube placed and was NPO until she was able to tolerate fluids and her Ileus resolved. She also had a Urine culture that grew ESBL E.Coli and she was treated for 3 days of Meropenem as per ID. She is now tolerating regular diet. She was evaluated by PT as she had deconditioned and was recommended to go to TCU for further rehabilitation. PLAN: >+ESBL in urine culture -- afebrile without leukocytosis -- +ESBL, ID is on board -- Merrem started 04/02/18, completed 3 days as per ID >Metabolic Derangements: >Hypomagnesemia --chronic --start slo-mag as mag ox may be contributing to diarrhea. continue slomag and increase if remains hypomagnesemic --Discontinued PPI as this can cause hypoMG >Hypophosphatemia --Continue to monitor - replete prn > Hypocalcemia --Chronic, nl with correction --Likely due to MM, restarted Calcitriol, Ca Co3, and Vitamin D yesterday --PTH high 105, may have parathyroid dysfunction >Deconditioning --Likely from prolonged immobility during acute illness --PT /OT - for TCU. >IDDM --Metformin held, Meal time Bolus held, put on low sliding scale and reduced basal insulin given pt's poor intake and low sugars --Accuchecks --Hypoglycemic protocol --ISS, low dose >Multiple Myeloma --likely cause of anemia --Heme/Onc on board: Dr. Vilchis --Bortezomib on hold, will administer in outpatient setting >CHF/HTN --Echocardiogram on 08/25/17 showed LVEF 60-65%, grade I abnormal relaxation pattern. --Possibly diastolic dysfunction-CHF --Holding torsemide for now as per nephro; will monitor volume status >COPD/Pulm HTN --Resumed home meds >DVT Prophylaxis --Lovenox 40mg SC daily --SCDs Hypercalcemia- resolved Ileus -resolved Altered Mental Status /Delirium- resolved D/w Dr. Neumann Discharge Exam - Head Exam Head Exam: NORMAL INSPECTION - Eye Exam Eye Exam: Normal appearance - ENT Exam ENT Exam: Mucous Membranes Moist - Respiratory Exam Respiratory Exam: Clear to PA & Lateral. absent: Rales, Wheezes - Cardiovascular Exam Cardiovascular Exam: REGULAR RHYTHM, +S1, +S2. absent: Systolic Murmur - GI/Abdominal Exam GI & Abdominal Exam: Normal Bowel Sounds, Soft. absent: Tenderness - Extremities Exam Extremities exam: normal inspection - Neurological Exam Neurological exam: Alert, Oriented x3 - Psychiatric Exam Psychiatric exam: Normal Affect - Skin Skin Exam: Normal Color Discharge Plan - Discharge Medications Prescriptions: Torsemide [Demadex] 10 mg PO DAILY 30 Days #30 tab - Follow Up Plan Condition: STABLE Disposition: REHAB FACILITY/REHAB UNIT Instructions: Hypercalcemia (DC), Low Magnesium Level (DC) Referrals: Luis Eduardo Vilchis MD [Staff Provider] - Yoan Nava MD [Staff Provider] - David Neumann MD [Family Provider] -
[2018-04-07 08:14] LABS: BLOOD UREA NITROGEN 11 mg/dl (7-17); CALCIUM 8.8 mg/dL (8.4-10.2); GFR NON-AFRICAN AMERICAN > 60
[2018-04-07 10:41] LABS: HEMOGLOBIN 10.6 g/dL (12.0-16.0); MEAN CELL VOLUME 89.4 fl (81.0-99.0); MEAN CORPUSCULAR HEMOGLOBIN 28.8 pg (27.0-31.0); MEAN CORPUSCULAR HGB CONC 32.2 g/dL (33.0-37.0); RBC 3.68 Mil/uL (3.80-5.20); RED CELL DISTRIBUTION WIDTH 17.6 % (11.5-14.5); WHITE BLOOD COUNT 8.5 K/uL (4.8-10.8)
--- NOTE | 2018-04-07 21:12 | CP.PCM.PN ---
Subjective - Date & Time of Evaluation Date of Evaluation: 04/06/18 Time of Evaluation: 12:00 - Subjective Subjective: Feeling better. Objective - Vital Signs/Intake and Output Vital Signs (last 24 hours): Temp Pulse Resp BP Pulse Ox 98 F 95 H 16 102/70 97 04/06/18 16:47 04/06/18 16:47 04/06/18 16:47 04/06/18 16:47 04/06/18 16:47 - Labs Labs: 04/07/18 07:40 04/07/18 07:40 PT 11.8 Seconds (9.8-13.1) 03/23/18 17:02 INR 1.0 03/23/18 17:02 APTT 29.2 Seconds (25.6-37.1) 03/23/18 17:02 - Head Exam Head Exam: ATRAUMATIC - Eye Exam Eye Exam: Normal appearance - ENT Exam ENT Exam: Mucous Membranes Dry - Respiratory Exam Respiratory Exam: NORMAL BREATHING PATTERN - Cardiovascular Exam Cardiovascular Exam: +S1, +S2 - GI/Abdominal Exam GI & Abdominal Exam: Normal Bowel Sounds Assessment and Plan (1) Multiple myeloma Assessment & Plan: outpatient treatment Status: Chronic (2) Hypercalcemia Assessment & Plan: resolved Status: Resolved
== END 2018-04-06 17:20 | DRG 640 ==
LOC: H.ER 16:18 → H.TEL 19:34 → H.ERHOLD 19:59 → H.TEL 21:21
PROVIDERS: ADMIT Family Medicine; ATTEND Family Medicine
DX: E83.52 Hypercalcemia (principal); G93.41 Metabolic encephalopathy; C90.00 Multiple myeloma not having achieved remission; I50.32 Chronic diastolic (congestive) heart failure; N17.9 Acute kidney failure, unspecified; I13.0 Hypertensive heart and chronic kidney disease with heart failure and stage 1 through stage 4 chronic kidney disease, or unspecified chronic kidney disease; N39.0 Urinary tract infection, site not specified; K56.7 Ileus, unspecified; E83.42 Hypomagnesemia; I11.0 Hypertensive heart disease with heart failure; G20 Parkinson's disease; I27.20 Pulmonary hypertension, unspecified; I25.10 Atherosclerotic heart disease of native coronary artery without angina pectoris; N18.2 Chronic kidney disease, stage 2 (mild); E11.22 Type 2 diabetes mellitus with diabetic chronic kidney disease; E86.0 Dehydration; E83.39 Other disorders of phosphorus metabolism; D63.0 Anemia in neoplastic disease; D63.1 Anemia in chronic kidney disease; B96.20 Unspecified Escherichia coli [E. coli] as the cause of diseases classified elsewhere; Z16.12 Extended spectrum beta lactamase (ESBL) resistance; J43.9 Emphysema, unspecified; K21.9 Gastro-esophageal reflux disease without esophagitis; M79.7 Fibromyalgia; M06.9 Rheumatoid arthritis, unspecified; E03.9 Hypothyroidism, unspecified; F41.9 Anxiety disorder, unspecified; E78.00 Pure hypercholesterolemia, unspecified; G47.30 Sleep apnea, unspecified; Z78.1 Physical restraint status; Z99.81 Dependence on supplemental oxygen; Z79.4 Long term (current) use of insulin; Z79.82 Long term (current) use of aspirin; Z86.711 Personal history of pulmonary embolism; Z86.73 Personal history of transient ischemic attack (TIA), and cerebral infarction without residual deficits; Z87.01 Personal history of pneumonia (recurrent); Z88.6 Allergy status to analgesic agent; Z79.84 Long term (current) use of oral hypoglycemic drugs; Z92.21 Personal history of antineoplastic chemotherapy

== ENCOUNTER 2018-04-06 15:17 | Inpatient (IN) | payer MEDICARE, OTHER ==
[2018-04-06] MEDS ORDERED: Albuterol-Ipratrop 3 mg / 0.5 (3 ml) UD INH PRN (18:04)
[2018-04-06] MEDS ORDERED: Benzocaine/Menthol (Cepacol) Lozenge PO PRN (19:28)
[2018-04-06] MEDS ORDERED: Proshield Plus GEL TOP PRN (19:32)
[2018-04-06] MEDS: Insulin Detemir 100 Units/ml Inj SC SCH (21:48)
[2018-04-06] MEDS ORDERED: Insulin Detemir 100 Units/ml Inj SC SCH (22:00)
[2018-04-07] MEDS: Levothyroxine 100 MCG TAB PO SCH (05:41)
[2018-04-07 08:14] LABS: ALB/GLOB RATIO 0.9 (1.0-2.1); ALBUMIN 3.2 g/dL (3.5-5.0); ALT/SGPT 28 U/L (9-52); AST/SGOT 46 U/L (14-36); BLOOD UREA NITROGEN 11 mg/dl (7-17); CALCIUM 8.7 mg/dL (8.4-10.2); GFR NON-AFRICAN AMERICAN > 60
[2018-04-07] MEDS: Enoxaparin 40 mg Syringe SC SCH (08:57)
[2018-04-07] MEDS: Insulin Lispro (humaLOG) 100 Units/ml Inj SC SCH ×2 (09:00→12:14)
[2018-04-07] MEDS: RIOCIGUAT 2 MG PO SCH ×3 (09:01→16:48)
[2018-04-07] MEDS: Cholecalciferol 1,000 INTLU TAB PO SCH (09:02)
[2018-04-07] MEDS ORDERED: Barium Sulfate for Susp 98% w/w 340g Bottle ONE (11:13)
[2018-04-07] MEDS ORDERED: Barium Sulfate Susp 0.1% w/v, 0.1% w/w 450 mL Bottle PO ONE (11:13)
--- NOTE | 2018-04-07 16:39 | CP.PCM.HP ---
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 She also developed diarrhea 2/2 to small bowel which resolved. Pt is now being admitted to TCU for rehabilitation . 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 Medications: See bellow full list -PMHx: Multiple M, T2DM, HTN, COPD, Hypothyroidsm, GERD, hx of PE s/p IVC filter 2014. -PSHx: Ankle fracture repair, Cholecystectomy, Breast cyst surgery x2, tonsillectomy. -FHx: Father had Lung CA and HTN, Mother of a heart attack. -SHx: Denies Tobacco/ETOH/Rec Drug use. Next of Kin: Daughter Megha [phone] Code status: Full code Present on Admission - Present on Admission Any Indicators Present on Admission: No Past Patient History - Infectious Disease Hx of Infectious Diseases: None - Tetanus Immunizations Tetanus Immunization: Unknown - Past Medical History & Family History Past Medical History?: Yes - Past Social History Smoking Status: Never Smoked - CARDIAC Hx Cardiac Disorders: Yes Hx Congestive Heart Failure: Yes Hx Hypercholesterolemia: Yes Hx Hypertension: Yes - PULMONARY Hx Chronic Obstructive Pulmonary Disease (COPD): Yes - NEUROLOGICAL Hx Migraine: Yes Hx Parkinson's Disease: Yes - HEENT Hx HEENT Problems: No - RENAL Hx Chronic Kidney Disease: No - ENDOCRINE/METABOLIC Hx Diabetes Mellitus Type 2: Yes Hx Hypothyroidism: Yes - HEMATOLOGICAL/ONCOLOGICAL Hx AIDS: No Hx Anemia: Yes Hx Human Immunodeficiency Virus (HIV): No - INTEGUMENTARY Hx Dermatological Problems: No - MUSCULOSKELETAL/RHEUMATOLOGICAL Hx Arthritis: Yes Hx Falls: No Hx Rheumatoid Arthritis: Yes - GASTROINTESTINAL Hx Gastrointestinal Disorders: No - GENITOURINARY/GYNECOLOGICAL Hx Genitourinary Disorders: Yes Hx Incontinence: Yes - PSYCHIATRIC Hx Anxiety: Yes Hx Depression: Yes - SURGICAL HISTORY Hx Appendectomy: Yes Hx Cholecystectomy: Yes Hx Tonsillectomy: Yes - ANESTHESIA Hx Anesthesia: Yes Hx Anesthesia Reactions: Yes (Resp. Distress) Hx Malignant Hyperthermia: No Meds Allergies/Adverse Reactions: Allergies Allergy/AdvReac Type Severity Reaction Status Date / Time codeine AdvReac syncope, Verified 04/06/18 16:07 diaphoresis Physical Exam - Constitutional Appears: No Acute Distress - Head Exam Head Exam: NORMAL INSPECTION - Eye Exam Eye Exam: Normal appearance - ENT Exam ENT Exam: Mucous Membranes Moist - Respiratory Exam Respiratory Exam: Clear to Auscultation Bilateral. absent: Rales, Wheezes - Cardiovascular Exam Cardiovascular Exam: REGULAR RHYTHM, +S2 - GI/Abdominal Exam GI & Abdominal Exam: Normal Bowel Sounds - Extremities Exam Extremities exam: Positive for: normal inspection - Neurological Exam Neurological exam: Alert, Oriented x3 - Psychiatric Exam Psychiatric exam: Normal Affect - Skin Skin Exam: Normal Color Results - Vital Signs Recent Vital Signs: Last Vital Signs Temp 99.1 F 04/07/18 08:22 Pulse 80 04/07/18 11:10 Resp 20 04/07/18 08:22 BP 112/70 04/07/18 11:10 Pulse Ox 95 04/07/18 11:10 - Labs Result Diagrams: 04/07/18 07:40 Labs: Laboratory Results - last 24 hr 04/06/18 04/07/18 04/07/18 21:27 05:37 07:40 Sodium 137 Potassium 5.1 H Chloride 99 Carbon Dioxide 29 Anion Gap 14 BUN 11 Creatinine 0.7 Est GFR ( Amer) > 60 Est GFR (Non-Af Amer) > 60 POC Glucose (mg/dL) 107 79 Random Glucose 98 Calcium 8.7 Phosphorus Magnesium Total Bilirubin 0.2 AST 46 H D ALT 28 Alkaline Phosphatase 159 H Total Protein 6.8 Albumin 3.2 L Globulin 3.6 Albumin/Globulin Ratio 0.9 L 04/07/18 04/07/18 04/07/18 09:13 10:05 10:32 Sodium Potassium Chloride Carbon Dioxide Anion Gap BUN Creatinine Est GFR ( Amer) Est GFR (Non-Af Amer) POC Glucose (mg/dL) 113 H 118 H Random Glucose Calcium Phosphorus 3.7 Magnesium 1.4 L Total Bilirubin AST ALT Alkaline Phosphatase Total Protein Albumin Globulin Albumin/Globulin Ratio 04/07/18 16:26 Sodium Potassium Chloride Carbon Dioxide Anion Gap BUN Creatinine Est GFR ( Amer) Est GFR (Non-Af Amer) POC Glucose (mg/dL) 61 L Random Glucose Calcium Phosphorus Magnesium Total Bilirubin AST ALT Alkaline Phosphatase Total Protein Albumin Globulin Albumin/Globulin Ratio Assessment & Plan - Assessment and Plan (Free Text) Assessment: 72 yo F with a PMHx of multiple myeloma, DM, HTN, COPD, 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 Pt presented with Calcium of 14. She was treated with aggressive fluid hydration and calcitonin for 2 days. Pt's calcium returned to normal limits and her mental status improved. She developed diarrhea and was found on abdominal CT to have a small bowel Ileus. She had an NG tube placed and was NPO until she was able to tolerate fluids and her Ileus resolved. She also had a Urine culture that grew ESBL E.Coli and she was treated for 3 days of Meropenem as per ID. She is now tolerating regular diet with minimum appetite. She was evaluated by PT as she had deconditioned and was recommended to go to TCU for further rehabilitation. PLAN: >+ESBL in urine culture --s/p 3 days of Meropenem >Metabolic Derangements: --resolved >Poor appetite/dysphagia --Pt reports feeling nauseas and slow passage of food --Barium swallow ordered; f/u report --Consider ZOfran ODT >Deconditioning --Likely from prolonged immobility during acute illness --PT /OT - for TCU. >IDDM --C/W Metformin held, Meal time Bolus Insulin held, put on low sliding scale and reduced basal insulin given pt's poor intake and low sugars --Accuchecks --Hypoglycemic protocol --ISS, low dose >Multiple Myeloma --likely cause of anemia --Heme/Onc on board: Dr. Vilchis --Bortezomib on hold, will administer in outpatient setting >CHF/HTN --Echocardiogram on 08/25/17 showed LVEF 60-65%, grade I abnormal relaxation pattern. --Possibly diastolic dysfunction-CHF --Holding torsemide for now as per nephro; will monitor volume status >COPD/Pulm HTN --Resumed home meds --CPAP at night >DVT Prophylaxis --Lovenox 40mg SC daily --SCDs Hypercalcemia- resolved Ileus -resolved Altered Mental Status /Delirium- resolved D/w Dr. Neumann
[2018-04-07] MEDS: Magnesium Chloride 64 mg ER Tab PO SCH (17:03)
--- NOTE | 2018-04-07 17:47 | RAD ---
Date of service: 04/07/2018 HISTORY: Dysphagia. COMPARISON: None. TECHNIQUE: Double Contrast esophagram was performed. FINDINGS: Patient tolerated procedure well. ESOPHAGUS: Esophageal mucosa appeared preserved. No evidence of stricture or mass lesion. Mid and distal esophagus exhibited moderate transient dilatation HIATAL HERNIA: None demonstrated. GASTROESOPHAGEAL REFLUX: No significant gastroesophageal reflux demonstrated during this exam. OTHER FINDINGS: None. IMPRESSION: No evidence of persistent intraluminal or extrinsic filling defects or strictures. Mid and distal esophagus exhibited moderate transient dilatation No significant gastroesophageal reflux demonstrated during this procedure.
[2018-04-08] MEDS: Levothyroxine 100 MCG TAB PO SCH (06:09)
[2018-04-08 06:25] LABS: HEMOGLOBIN 9.7 g/dL (12.0-16.0); MEAN CELL VOLUME 86.8 fl (81.0-99.0); MEAN CORPUSCULAR HEMOGLOBIN 28.8 pg (27.0-31.0); MEAN CORPUSCULAR HGB CONC 33.2 g/dL (33.0-37.0); RBC 3.37 Mil/uL (3.80-5.20); RED CELL DISTRIBUTION WIDTH 18.1 % (11.5-14.5); WHITE BLOOD COUNT 8.1 K/uL (4.8-10.8)
[2018-04-08 06:42] LABS: BLOOD UREA NITROGEN 15 mg/dl (7-17); CALCIUM 8.7 mg/dL (8.4-10.2); GFR NON-AFRICAN AMERICAN > 60
[2018-04-08] MEDS: Enoxaparin 40 mg Syringe SC SCH (08:24)
[2018-04-08] MEDS: RIOCIGUAT 2 MG PO SCH ×3 (08:25→16:20)
[2018-04-08] MEDS: Magnesium Chloride 64 mg ER Tab PO SCH (08:27)
[2018-04-08] MEDS: Cholecalciferol 1,000 INTLU TAB PO SCH (08:28)
--- NOTE | 2018-04-08 08:31 | CP.PCM.PN ---
Subjective - Date & Time of Evaluation Date of Evaluation: 04/08/18 Time of Evaluation: 08:31 - Subjective Subjective: Patient seen and examined this morning with patient's daughter present at bedside. On 2 L NC oxygen breathing comfortably No acute overnight events. Afebrile with stable vitals Tolerating PO with appetite improving. Patient reports she had 2 episodes of watery diarrhea this morning. Denies any abdominal pain, nausea, vomiting or dizziness. Participating in PT/OT. Objective - Vital Signs/Intake and Output Vital Signs (last 24 hours): Temp Pulse Resp BP Pulse Ox 97.6 F 90 20 98/50 L 99 04/07/18 21:05 04/08/18 04:05 04/07/18 21:05 04/07/18 21:05 04/07/18 21:05 - Medications Medications: Current Medications Albuterol/Ipratropium (Duoneb 3 Mg/0.5 Mg (3 Ml) Ud) 3 ml INH RQ6 PRN PRN Reason: Shortness of Breath Amiloride HCl (Amiloride 5 Mg Tab) 2.5 mg PO DAILY [facility] Aripiprazole (Abilify) 2 mg PO HS [facility] Last Admin: 04/07/18 21:11 Dose: 2 mg Aspirin (Ecotrin) 81 mg PO DAILY [facility] Last Admin: 04/07/18 08:55 Dose: 81 mg Atorvastatin Calcium (Lipitor) 20 mg PO DAILY [facility] Last Admin: 04/07/18 08:57 Dose: 20 mg Benzocaine/Menthol (Cepacol Sore Throat) 1 kaitlyn PO Q2 PRN PRN Reason: Sore Throat Benztropine Mesylate (Cogentin) 1 mg PO Q12 [facility] Last Admin: 04/07/18 21:11 Dose: 1 mg Bortezomib (Velcade) 3.5 mg IVP TUTH [facility] Buspirone HCl (Buspar) 15 mg PO Q12 [facility] Last Admin: 04/07/18 21:11 Dose: 15 mg Calcitriol (Rocaltrol) 0.25 mcg PO MWF [facility] Calcium Carbonate (Oscal) 500 mg PO BID [facility] Last Admin: 04/07/18 16:48 Dose: 500 mg Cholecalciferol (Vitamin D) 1,000 intlu PO DAILY [facility] Last Admin: 04/07/18 09:02 Dose: 1,000 intlu Clonazepam (Klonopin) 0.5 mg PO DAILY PRN PRN Reason: Anxiety Dimethicone (Proshield Plus Skin Protectant) 1 applic TOP Q8 PRN PRN Reason: Other Duloxetine HCl (Cymbalta) 60 mg PO DAILY [facility] Last Admin: 04/07/18 08:54 Dose: 60 mg Enalapril Maleate (Vasotec) 5 mg PO DAILY [facility] Last Admin: 04/07/18 09:02 Dose: 5 mg Enoxaparin Sodium (Lovenox) 40 mg SC DAILY [facility]; Protocol Last Admin: 04/07/18 08:57 Dose: 40 mg Escitalopram Oxalate (Lexapro) 10 mg PO DAILY [facility] Last Admin: 04/07/18 08:56 Dose: 10 mg Famotidine (Pepcid) 40 mg PO DAILY [facility] Last Admin: 04/07/18 10:38 Dose: 40 mg Ferrous Sulfate (Feosol) 325 mg PO DAILY [facility] Last Admin: 04/07/18 08:55 Dose: 325 mg Gabapentin (Neurontin) 100 mg PO TID [facility] Last Admin: 04/07/18 16:47 Dose: 100 mg Home Med (Riociguat [Adempas]) 2 mg PO TID [facility] Last Admin: 04/07/18 16:48 Dose: 2 mg Hydrocortisone (Cortef) 10 mg PO [facility] Last Admin: 04/07/18 21:12 Dose: 10 mg Insulin Detemir (Levemir) 10 units SC [facility] Last Admin: 04/06/18 21:48 Dose: 10 units Insulin Human Lispro (Humalog) 5 units SC TID [facility] Last Admin: 04/07/18 12:14 Dose: 5 units Levothyroxine Sodium (Synthroid) 100 mcg PO DAILY@0630 [facility] Last Admin: 04/08/18 06:09 Dose: 100 mcg Magnesium Chloride (Slow-Mag) 64 mg PO DAILY [facility] Last Admin: 04/07/18 17:03 Dose: 64 mg Metformin HCl (Glucophage) 500 mg PO BID [facility] Last Admin: 04/07/18 16:47 Dose: 500 mg Torsemide (Demadex) 10 mg PO DAILY [facility] - Labs Labs: 04/08/18 05:35 04/08/18 05:35 - Constitutional Appears: No Acute Distress, Other (Pleasant) - Head Exam Head Exam: NORMAL INSPECTION - Eye Exam Eye Exam: Normal appearance - ENT Exam ENT Exam: Mucous Membranes Moist - Respiratory Exam Respiratory Exam: Clear to Ausculation Bilateral, NORMAL BREATHING PATTERN. absent: Accessory Muscle Use, Rhonchi, Wheezes, Respiratory Distress - Cardiovascular Exam Cardiovascular Exam: REGULAR RHYTHM, +S1, +S2 - GI/Abdominal Exam GI & Abdominal Exam: Soft, Normal Bowel Sounds. absent: Guarding, Rigid, Tenderness - Extremities Exam Extremities Exam: Normal Inspection. 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 Pt presented with Calcium of 14. She was treated with aggressive fluid hydration and calcitonin for 2 days. Pt's calcium returned to normal limits and her mental status improved. She developed diarrhea and was found on abdominal CT to have a small bowel Ileus. She had an NG tube placed and was NPO until she was able to tolerate fluids and her Ileus resolved. She also had a Urine culture that grew ESBL E.Coli and she was treated for 3 days of Meropenem as per ID. She is now tolerating regular diet with minimum appetite. Patient was admitted to TCU on 04/07/18 for further rehabilitation for deconditioning and lower extremity weakness. Patient is participating in physical therapy. PLAN: >Deconditioning --Likely from prolonged immobility during acute illness --Continue with PT/OT >Poor appetite/dysphagia --Pt reports she ate breakfast this morning. --Reports slow passage of food --Barium swallow ordered; f/u report --Consider ZOfran ODT >+ESBL in urine culture --s/p 3 days of Meropenem ->Hypomagnesemia --chronic --Mg 1.4 yesterday, f/u labs --c/w slo-mag as mag ox may be contributing to diarrhea. continue slomag and increase if remains hypomagnesemic --Lumber Trimmer Dr. Nava on board >IDDM II --C/W Metformin , Meal time Bolus Insulin held, put on low sliding scale and reduced basal insulin given pt's poor intake and low sugars --c/w levemir 10 unit qhs --Accuchecks --Hypoglycemic protocol --ISS, low dose >Multiple Myeloma --likely cause of anemia --Heme/Onc on board: Dr. Vilchis --Bortezomib on hold, will administer in outpatient setting >CHF/HTN --Echocardiogram on 08/25/17 showed LVEF 60-65%, grade I abnormal relaxation pattern. --Possibly diastolic dysfunction-CHF --c/w torsemide for now as per nephro; will monitor volume status >COPD/Pulm HTN --Resumed home meds --CPAP at night >DVT Prophylaxis --Lovenox 40mg SC daily --SCDs Hypercalcemia- resolved Ileus -resolved Altered Mental Status /Delirium- resolved D/w Dr. Neumann
[2018-04-08] MEDS: Insulin Detemir 100 Units/ml Inj SC SCH (21:25)
[2018-04-09] MEDS: Levothyroxine 100 MCG TAB PO SCH (06:06)
[2018-04-09 06:50] LABS: HEMOGLOBIN 10.2 g/dL (12.0-16.0); MEAN CELL VOLUME 85.5 fl (81.0-99.0); MEAN CORPUSCULAR HEMOGLOBIN 29.1 pg (27.0-31.0); RBC 3.51 Mil/uL (3.80-5.20); RED CELL DISTRIBUTION WIDTH 18.2 % (11.5-14.5); WHITE BLOOD COUNT 8.3 K/uL (4.8-10.8)
[2018-04-09 07:20] LABS: ALB/GLOB RATIO 0.9 (1.0-2.1); ALBUMIN 3.3 g/dL (3.5-5.0); ALT/SGPT 31 U/L (9-52); AST/SGOT 39 U/L (14-36); BLOOD UREA NITROGEN 16 mg/dl (7-17); CALCIUM 9.1 mg/dL (8.4-10.2); GFR NON-AFRICAN AMERICAN > 60
[2018-04-09] MEDS: Enoxaparin 40 mg Syringe SC SCH (08:36)
[2018-04-09] MEDS: RIOCIGUAT 2 MG PO SCH ×3 (08:38→16:26)
[2018-04-09] MEDS: Magnesium Chloride 64 mg ER Tab PO SCH (08:40)
[2018-04-09] MEDS: Cholecalciferol 1,000 INTLU TAB PO SCH (08:40)
--- NOTE | 2018-04-09 15:46 | CON ---
DATE: 04/07/2018 NEPHROLOGY CONSULTATION LOCATION: [facility]. HISTORY OF PRESENT ILLNESS: The patient is a 72-year-old female with past medical history of hypertension; diabetes; severe pulmonary hypertension; COPD, on home oxygen; sleep apnea, on CPAP; hypothyroidism; status post PE; and multiple myeloma, on chemo; was admitted to [facility] with severe symptomatic hypercalcemia; the patient subsequently discharged and admitted to TCU; Nephrology being consulted for electrolyte abnormalities. The patient's hypercalcemia was thought to be secondary to high doses of calcium and vitamin D/calcitriol supplementation in the setting of previous hypocalcemia, and with the patient on chemo as well as bone modifying agent Prolia (however, had not been receiving either of them regularly in recent weeks); the patient's hypercalcemia eventually resolved with IV fluids, diuretics as well as calcitonin; the patient's hospital course was complicated by bouts of delirium; the patient also had diarrhea that also resolved. The patient currently reports feeling well; did walk with a walker earlier today per nursing staff; is tolerating diet; denies any nausea, vomiting, or diarrhea; reports breathing is well; urinated about 3 to 4 times overnight. PAST MEDICAL HISTORY: As above. SOCIAL HISTORY: Never smoked. FAMILY HISTORY: . REVIEW OF SYSTEMS: CONSTITUTIONAL: Appetite is still not back to normal, has been having decreased p.o. intake overall. HEENT: Denies any difficulty swallowing. RESPIRATORY: Reports breathing well. CARDIOVASCULAR: No chest pain or palpitations. GASTROINTESTINAL: As per HPI. GENITOURINARY: Denies any urinary complaints. MUSCULOSKELETAL: Denies any arthralgias or back pain. PSYCHIATRIC: Delirium resolved. NEUROLOGIC: Has baseline coarse tremors. PHYSICAL EXAMINATION: VITAL SIGNS: This afternoon, blood pressure 126/80, heart rate 118, respirations 20, temperature 98, and O2 saturations 99% on nasal cannula oxygen. GENERAL: No distress. Conversing coherently in full sentences. HEENT: Moist mucous membranes. Nonicteric. No cervical lymphadenopathy. RESPIRATORY: The patient with chronic coarse rales, otherwise no wheezes. No respiratory distress. No rhonchi. CARDIOVASCULAR: Heart sounds S1 and S2 normal. No murmurs. No gallops. No rubs. GASTROINTESTINAL: Abdomen soft, nontender, and nondistended. GENITOURINARY: No bladder distention. EXTREMITIES: Trace bilateral leg edema. SKIN: Warm. No cyanosis. NEUROLOGIC: No overt resting tremor. PSYCHIATRIC: Normal mood. Normal affect. LABORATORY DATA: This morning, CBC: WBC 8.5, hemoglobin 10.6, hematocrit 32.9, and platelets 259. Chemistry panel: Sodium 138, potassium 5, chloride 99, bicarbonate 30, BUN 11, creatinine 0.7, glucose 98, calcium 8.8, phosphorus 3.7, magnesium 1.3, last albumin 3.1 two days ago. ASSESSMENT AND PLAN: 1. Electrolyte abnormalities. 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 We will continue oral magnesium supplementation with Slow-Mag once a day(magnesium oxide may have caused diarrhea). Continue amiloride. We will decrease dose to 2.5 mg daily due to high normal potassium level (amiloride helps decrease renal magnesium wasting). Continue calcitriol 0.25 mcg every Wednesday, Wednesday, and Wednesday as well as calcium carbonate supplementation to keep serum calcium level within normal limits. 2. Chronic heart failure. The patient with severe pulmonary hypertension and possible evidence of diastolic dysfunction on previous echocardiogram; we will keep on low dose of torsemide 10 mg daily (dose decreased as we have added amiloride as mentioned above). Thank you for this referral. We will be following closely. Yoan Nava MD
[2018-04-09] MEDS: Insulin Detemir 100 Units/ml Inj SC SCH (22:12)
[2018-04-10] MEDS: Levothyroxine 100 MCG TAB PO SCH (05:54)
--- NOTE | 2018-04-10 08:59 | CP.PCM.PN ---
Subjective - Date & Time of Evaluation Date of Evaluation: 04/09/18 Time of Evaluation: 20:00 - Subjective Subjective: Patient reports feeling well; tolerating diet; no diarrhea today; breathing well; Objective - Vital Signs/Intake and Output Vital Signs (last 24 hours): Temp Pulse Resp BP Pulse Ox 98.3 F 85 18 102/68 97 04/10/18 08:15 04/10/18 08:15 04/10/18 08:15 04/10/18 08:15 04/10/18 08:15 - Medications Medications: Current Medications Albuterol/Ipratropium (Duoneb 3 Mg/0.5 Mg (3 Ml) Ud) 3 ml INH RQ6 PRN PRN Reason: Shortness of Breath Amiloride HCl (Amiloride 5 Mg Tab) 2.5 mg PO DAILY [facility] Last Admin: 04/09/18 08:37 Dose: 2.5 mg Aripiprazole (Abilify) 2 mg PO HS [facility] Last Admin: 04/09/18 23:53 Dose: 2 mg Aspirin (Ecotrin) 81 mg PO DAILY [facility] Last Admin: 04/09/18 08:41 Dose: 81 mg Atorvastatin Calcium (Lipitor) 20 mg PO DAILY [facility] Last Admin: 04/09/18 08:39 Dose: 20 mg Benzocaine/Menthol (Cepacol Sore Throat) 1 kaitlyn PO Q2 PRN PRN Reason: Sore Throat Benztropine Mesylate (Cogentin) 1 mg PO Q12 [facility] Last Admin: 04/09/18 22:10 Dose: 1 mg Buspirone HCl (Buspar) 15 mg PO Q12 [facility] Last Admin: 04/09/18 22:10 Dose: 15 mg Calcitriol (Rocaltrol) 0.25 mcg PO MWF [facility] Last Admin: 04/08/18 08:27 Dose: 0.25 mcg Calcium Carbonate (Oscal) 500 mg PO BID [facility] Last Admin: 04/09/18 16:26 Dose: 500 mg Cholecalciferol (Vitamin D) 1,000 intlu PO DAILY [facility] Last Admin: 04/09/18 08:40 Dose: 1,000 intlu Clonazepam (Klonopin) 0.5 mg PO DAILY PRN PRN Reason: Anxiety Dimethicone (Proshield Plus Skin Protectant) 1 applic TOP Q8 PRN PRN Reason: Other Duloxetine HCl (Cymbalta) 60 mg PO DAILY [facility] Last Admin: 04/09/18 08:38 Dose: 60 mg Enalapril Maleate (Vasotec) 5 mg PO DAILY [facility] Last Admin: 04/07/18 09:02 Dose: 5 mg Enoxaparin Sodium (Lovenox) 40 mg SC DAILY [facility]; Protocol Last Admin: 04/09/18 08:36 Dose: 40 mg Escitalopram Oxalate (Lexapro) 10 mg PO DAILY [facility] Last Admin: 04/09/18 08:40 Dose: 10 mg Famotidine (Pepcid) 40 mg PO DAILY [facility] Last Admin: 04/09/18 08:41 Dose: 40 mg Ferrous Sulfate (Feosol) 325 mg PO DAILY [facility] Last Admin: 04/09/18 08:39 Dose: 325 mg Gabapentin (Neurontin) 100 mg PO TID [facility] Last Admin: 04/09/18 16:27 Dose: 100 mg Home Med (Riociguat [Adempas]) 2 mg PO TID [facility] Last Admin: 04/09/18 16:26 Dose: 2 mg Hydrocortisone (Cortef) 10 mg PO [facility] Last Admin: 04/09/18 23:37 Dose: 10 mg Insulin Detemir (Levemir) 10 units SC [facility] Last Admin: 04/09/18 22:12 Dose: 10 units Insulin Human Lispro (Humalog) 5 units SC TID [facility] Last Admin: 04/07/18 12:14 Dose: 5 units Levothyroxine Sodium (Synthroid) 100 mcg PO DAILY@0630 [facility] Last Admin: 04/10/18 05:54 Dose: 100 mcg Magnesium Chloride (Slow-Mag) 64 mg PO DAILY [facility] Last Admin: 04/09/18 08:40 Dose: 64 mg Metformin HCl (Glucophage) 500 mg PO BID [facility] Last Admin: 04/09/18 16:26 Dose: 500 mg Torsemide (Demadex) 10 mg PO DAILY [facility] Last Admin: 04/09/18 10:24 Dose: 10 mg - Labs Labs: 04/09/18 06:00 04/09/18 06:00 - Constitutional Appears: Non-toxic, No Acute Distress - Eye Exam Eye Exam: Normal appearance - Respiratory Exam Respiratory Exam: absent: Respiratory Distress Additional comments: chronic rales, no rhonchi/wheezes; - Cardiovascular Exam Cardiovascular Exam: RRR. absent: Gallop, Rubs - GI/Abdominal Exam GI & Abdominal Exam: Soft. absent: Distended, Tenderness - Extremities Exam Additional comments: mild leg edema; - Neurological Exam Neurological Exam: Alert, Awake - Psychiatric Exam Psychiatric exam: Normal Mood. absent: Agitated - Skin Skin Exam: Warm. absent: Cyanosis Assessment and Plan (1) Electrolyte abnormality Assessment & Plan: Persistent but relatively stable hypomagnesemia with patient on slow-mag and low dose amiloride (to help decrease renal mag wasting); patient otherwise asymptomatic; hypocalcemia corrected with patient on calcium supplementation and calcitriol; borderlinine hyperkalemia noted, likely due to amiloride; metabolic alkalosis worsened, unclear if this is compensation for hypercapnea, will monitor for now; -continue current meds; -continue to monitor mag level; if asymptomatic, can keep mag ~1.2; Status: Chronic (2) CHF (congestive heart failure) Assessment & Plan: With pulm htn and possible diastolic dysfunction; will continue torsemide 10 mg as well as amiloride 2.5 mg daily; Status: Chronic
[2018-04-10] MEDS: Magnesium Chloride 64 mg ER Tab PO SCH ×2 (09:37→18:10)
[2018-04-10] MEDS: Enoxaparin 40 mg Syringe SC SCH (09:38)
[2018-04-10] MEDS: Cholecalciferol 1,000 INTLU TAB PO SCH (09:40)
[2018-04-10] MEDS: RIOCIGUAT 2 MG PO SCH ×3 (09:43→16:16)
[2018-04-10 09:50] LABS: ALBUMIN 3.6 g/dL (3.5-5.0); BLOOD UREA NITROGEN 18 mg/dl (7-17); CALCIUM 9.4 mg/dL (8.4-10.2); GFR NON-AFRICAN AMERICAN 55
[2018-04-10] MEDS ORDERED: Sodium Chloride 0.9% 500 ML IV SCH (17:30)
[2018-04-10] MEDS ORDERED: Sod Polystyrene Sulf 15 gm/60 ml Susp PO ONE (18:51)
[2018-04-10] MEDS: Insulin Detemir 100 Units/ml Inj SC SCH (21:59)
[2018-04-11] MEDS: Levothyroxine 100 MCG TAB PO SCH (06:00)
[2018-04-11 07:40] LABS: EOS % 0.5 % (0.0-4.0); HEMOGLOBIN 9.6 g/dL (12.0-16.0); LYMPH # 1.1 K/uL (1.0-4.3); LYMPH % 22.4 % (20.0-40.0); MEAN CELL VOLUME 86.9 fl (81.0-99.0); MEAN CORPUSCULAR HEMOGLOBIN 27.9 pg (27.0-31.0); MEAN CORPUSCULAR HGB CONC 32.1 g/dL (33.0-37.0); MEAN PLATELET VOLUME 8.3 fl (7.2-11.7); MONO # 0.7 K/uL (0.0-0.8); MONO % 14.6 % (0.0-10.0); NEUT % 62.5 % (50.0-75.0); NRBC % 0.1 % (0.0-0.0); RBC 3.44 Mil/uL (3.80-5.20); RED CELL DISTRIBUTION WIDTH 18.5 % (11.5-14.5); WHITE BLOOD COUNT 4.8 K/uL (4.8-10.8)
[2018-04-11 07:51] LABS: ALB/GLOB RATIO 0.9 (1.0-2.1); ALBUMIN 3.2 g/dL (3.5-5.0); ALT/SGPT 26 U/L (9-52); AST/SGOT 37 U/L (14-36); BLOOD UREA NITROGEN 17 mg/dl (7-17); CALCIUM 9.3 mg/dL (8.4-10.2); GFR NON-AFRICAN AMERICAN 55
[2018-04-11] MEDS: Enoxaparin 40 mg Syringe SC SCH (08:13)
[2018-04-11] MEDS: RIOCIGUAT 2 MG PO SCH ×3 (08:14→16:11)
[2018-04-11] MEDS: Magnesium Chloride 64 mg ER Tab PO SCH ×2 (08:14→16:15)
[2018-04-11] MEDS: Cholecalciferol 1,000 INTLU TAB PO SCH (08:16)
--- NOTE | 2018-04-11 11:36 | CP.PCM.PN ---
Subjective - Date & Time of Evaluation Date of Evaluation: 04/11/18 Time of Evaluation: 10:06 - Subjective Subjective: Patient seen and examined this morning. Patient states she has been tolerating PO diet without any difficulty swallowing. She denies any fever, chills, chest pain, sob, n/v/d. Objective - Vital Signs/Intake and Output Vital Signs (last 24 hours): Temp Pulse Resp BP Pulse Ox 98.3 F 105 H 18 107/68 97 04/11/18 07:48 04/11/18 07:48 04/11/18 07:48 04/11/18 07:48 04/11/18 07:48 - Medications Medications: Current Medications Albuterol/Ipratropium (Duoneb 3 Mg/0.5 Mg (3 Ml) Ud) 3 ml INH RQ6 PRN PRN Reason: Shortness of Breath Aripiprazole (Abilify) 2 mg PO HS [facility] Last Admin: 04/10/18 22:01 Dose: 2 mg Aspirin (Ecotrin) 81 mg PO DAILY [facility] Last Admin: 04/11/18 08:15 Dose: 81 mg Atorvastatin Calcium (Lipitor) 20 mg PO DAILY [facility] Last Admin: 04/11/18 08:17 Dose: 20 mg Benzocaine/Menthol (Cepacol Sore Throat) 1 kaitlyn PO Q2 PRN PRN Reason: Sore Throat Benztropine Mesylate (Cogentin) 1 mg PO Q12 [facility] Last Admin: 04/11/18 08:16 Dose: 1 mg Buspirone HCl (Buspar) 15 mg PO Q12 [facility] Last Admin: 04/11/18 10:00 Dose: 15 mg Calcitriol (Rocaltrol) 0.25 mcg PO MWF [facility] Last Admin: 04/11/18 10:30 Dose: 0.25 mcg Calcium Carbonate (Oscal) 500 mg PO BID [facility] Last Admin: 04/11/18 08:15 Dose: 500 mg Cholecalciferol (Vitamin D) 1,000 intlu PO DAILY [facility] Last Admin: 04/11/18 08:16 Dose: 1,000 intlu Clonazepam (Klonopin) 0.5 mg PO DAILY PRN PRN Reason: Anxiety Dimethicone (Proshield Plus Skin Protectant) 1 applic TOP Q8 PRN PRN Reason: Other Duloxetine HCl (Cymbalta) 60 mg PO DAILY [facility] Last Admin: 04/11/18 08:14 Dose: 60 mg Enalapril Maleate (Vasotec) 5 mg PO DAILY [facility] Last Admin: 04/07/18 09:02 Dose: 5 mg Enoxaparin Sodium (Lovenox) 40 mg SC DAILY [facility]; Protocol Last Admin: 04/11/18 08:13 Dose: 40 mg Escitalopram Oxalate (Lexapro) 10 mg PO DAILY [facility] Last Admin: 04/11/18 08:15 Dose: 10 mg Famotidine (Pepcid) 40 mg PO DAILY [facility] Last Admin: 04/11/18 08:16 Dose: 40 mg Ferrous Sulfate (Feosol) 325 mg PO DAILY [facility] Last Admin: 04/11/18 08:15 Dose: 325 mg Gabapentin (Neurontin) 100 mg PO TID [facility] Last Admin: 04/11/18 08:15 Dose: 100 mg Home Med (Riociguat [Adempas]) 2 mg PO TID [facility] Last Admin: 04/11/18 08:14 Dose: 2 mg Hydrocortisone (Cortef) 10 mg PO [facility] Last Admin: 04/10/18 22:05 Dose: 10 mg Insulin Detemir (Levemir) 10 units SC [facility] Last Admin: 04/10/18 21:59 Dose: 10 units Insulin Human Lispro (Humalog) 5 units SC TID [facility] Last Admin: 04/07/18 12:14 Dose: 5 units Levothyroxine Sodium (Synthroid) 100 mcg PO DAILY@0630 [facility] Last Admin: 04/11/18 06:00 Dose: 100 mcg Magnesium Chloride (Slow-Mag) 64 mg PO BID [facility] Last Admin: 04/11/18 08:14 Dose: 64 mg Metformin HCl (Glucophage) 500 mg PO BID [facility] Last Admin: 04/11/18 08:14 Dose: 500 mg Torsemide (Demadex) 10 mg PO DAILY [facility] Last Admin: 04/11/18 08:14 Dose: 10 mg - Labs Labs: 04/11/18 07:31 04/11/18 07:31 - Constitutional Appears: Non-toxic, No Acute Distress - Head Exam Head Exam: ATRAUMATIC, NORMAL INSPECTION - Eye Exam Eye Exam: EOMI - Respiratory Exam Respiratory Exam: absent: Rhonchi, Wheezes, Respiratory Distress - Cardiovascular Exam Cardiovascular Exam: REGULAR RHYTHM, +S1, +S2 - GI/Abdominal Exam GI & Abdominal Exam: Soft, Normal Bowel Sounds. absent: Guarding, Rigid, Tenderness - Extremities Exam Extremities Exam: absent: Calf Tenderness - Neurological Exam Neurological Exam: Alert, Awake, Oriented x3 - Psychiatric Exam Psychiatric exam: Normal Mood. 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 1.Deconditioning (Likely due to prolonged immobility during acute illness) -Continue PT/OT while on TCU. 2.Poor appetite/dysphagia (resolving) -Patient tolerated her breakfast this AM without any difficult swallowing. -Barium swallow performed 04/07/2018 and showed no significant gastroesophageal reflux during procedure. No evidence of persistent intraluminal or extrinsic filing defects. MId & distal esophagus exhibited mod. transient dilatation. 3.+ESBL in urine culture (resolved) -s/p 3 days of Meropenem 4.Hypomagnesemia (chronic) -Mg 1.3 today -[employer] Supervisor Dr. Nava on board 5.IDDM II -Continue Metformin 500mg BID -On sliding scale -Continue with levemir 10 unit qhs -Accuchecks -Hypoglycemic protocol 6.Multiple Myeloma -likely cause of anemia -Heme/Onc on board: Dr. Vilchis -Bortezomib on hold, will administer in outpatient setting 7.CHF/HTN -Echocardiogram on 08/25/17 showed LVEF 60-65%, grade I abnormal relaxation pattern. -Possibly diastolic dysfunction-CHF -Continue torsemide for now as per nephro; will monitor volume status 8.COPD/Pulm HTN -Resumed home meds -CPAP at night 9. Hypercalcemia with delirium- resolved -Ileus: resolved 10.DVT Prophylaxis -Lovenox 40mg SC daily -SCDs Case discussed with Dr. Neumann
[2018-04-11] MEDS: Insulin Detemir 100 Units/ml Inj SC SCH (21:27)
--- NOTE | 2018-04-11 21:28 | CP.PCM.PN ---
Subjective - Date & Time of Evaluation Date of Evaluation: 04/11/18 Time of Evaluation: 19:00 - Subjective Subjective: Reports feeling well; tolerating diet, eating about half of meals; some lightheadedness on rising; Objective - Vital Signs/Intake and Output Vital Signs (last 24 hours): Temp Pulse Resp BP Pulse Ox 98.5 F 104 H 20 125/67 94 L 04/11/18 20:59 04/11/18 20:59 04/11/18 20:59 04/11/18 20:59 04/11/18 20:59 - Medications Medications: Current Medications Albuterol/Ipratropium (Duoneb 3 Mg/0.5 Mg (3 Ml) Ud) 3 ml INH RQ6 PRN PRN Reason: Shortness of Breath Aripiprazole (Abilify) 2 mg PO HS [facility] Last Admin: 04/11/18 21:25 Dose: 2 mg Aspirin (Ecotrin) 81 mg PO DAILY [facility] Last Admin: 04/11/18 08:15 Dose: 81 mg Atorvastatin Calcium (Lipitor) 20 mg PO DAILY [facility] Last Admin: 04/11/18 08:17 Dose: 20 mg Benzocaine/Menthol (Cepacol Sore Throat) 1 kaitlyn PO Q2 PRN PRN Reason: Sore Throat Benztropine Mesylate (Cogentin) 1 mg PO Q12 [facility] Last Admin: 04/11/18 21:24 Dose: 1 mg Buspirone HCl (Buspar) 15 mg PO Q12 [facility] Last Admin: 04/11/18 21:25 Dose: 15 mg Calcitriol (Rocaltrol) 0.25 mcg PO MWF [facility] Last Admin: 04/11/18 10:30 Dose: 0.25 mcg Calcium Carbonate (Oscal) 500 mg PO BID [facility] Last Admin: 04/11/18 16:14 Dose: 500 mg Cholecalciferol (Vitamin D) 1,000 intlu PO DAILY [facility] Last Admin: 04/11/18 08:16 Dose: 1,000 intlu Clonazepam (Klonopin) 0.5 mg PO DAILY PRN PRN Reason: Anxiety Dimethicone (Proshield Plus Skin Protectant) 1 applic TOP Q8 PRN PRN Reason: Other Duloxetine HCl (Cymbalta) 60 mg PO DAILY [facility] Last Admin: 04/11/18 08:14 Dose: 60 mg Enalapril Maleate (Vasotec) 5 mg PO DAILY [facility] Last Admin: 04/07/18 09:02 Dose: 5 mg Enoxaparin Sodium (Lovenox) 40 mg SC DAILY [facility]; Protocol Last Admin: 04/11/18 08:13 Dose: 40 mg Escitalopram Oxalate (Lexapro) 10 mg PO DAILY [facility] Last Admin: 04/11/18 08:15 Dose: 10 mg Famotidine (Pepcid) 40 mg PO DAILY [facility] Last Admin: 04/11/18 08:16 Dose: 40 mg Ferrous Sulfate (Feosol) 325 mg PO DAILY [facility] Last Admin: 04/11/18 08:15 Dose: 325 mg Gabapentin (Neurontin) 100 mg PO TID [facility] Last Admin: 04/11/18 16:14 Dose: 100 mg Home Med (Riociguat [Adempas]) 2 mg PO TID [facility] Last Admin: 04/11/18 16:11 Dose: 2 mg Hydrocortisone (Cortef) 10 mg PO [facility] Last Admin: 04/11/18 21:25 Dose: 10 mg Insulin Detemir (Levemir) 10 units SC [facility] Last Admin: 04/10/18 21:59 Dose: 10 units Insulin Human Lispro (Humalog) 5 units SC TID [facility] Last Admin: 04/07/18 12:14 Dose: 5 units Levothyroxine Sodium (Synthroid) 100 mcg PO DAILY@0630 [facility] Last Admin: 04/11/18 06:00 Dose: 100 mcg Magnesium Chloride (Slow-Mag) 64 mg PO BID [facility] Last Admin: 04/11/18 16:15 Dose: 64 mg Metformin HCl (Glucophage) 500 mg PO BID [facility] Last Admin: 04/11/18 16:12 Dose: Not Given Torsemide (Demadex) 10 mg PO DAILY [facility] Last Admin: 04/11/18 08:14 Dose: 10 mg - Labs Labs: 04/11/18 07:31 04/11/18 07:31 - Constitutional Appears: Non-toxic, No Acute Distress - Eye Exam Eye Exam: Normal appearance - Respiratory Exam Respiratory Exam: absent: Respiratory Distress Additional comments: chronic rales; - Cardiovascular Exam Cardiovascular Exam: RRR, +S1, +S2 - GI/Abdominal Exam GI & Abdominal Exam: Soft. absent: Distended, Tenderness - Extremities Exam Additional comments: minimal lower leg edema; - Neurological Exam Neurological Exam: Alert, Awake - Psychiatric Exam Psychiatric exam: Normal Mood. absent: Agitated - Skin Skin Exam: Warm. absent: Cyanosis Assessment and Plan (1) Electrolyte abnormality Assessment & Plan: Mild hyperkalemia noted on labs yesterday, potassium level had been at higher end of normal since starting amiloride; amiloride stopped and patient given medical management to lower K level; repeat K today normal; Magnesium level low but stable; -will not restart amiloride (initially started to help decrease renal Mag wasting); -continue slow-mag 1 tab bid; Status: Chronic (2) CHF (congestive heart failure) Assessment & Plan: With pulm htn and possible diastolic dysfunction; -continue torsemide 10 mg daily (dose decreased to prevent excessive Mag wasting); Status: Chronic
[2018-04-12] MEDS: Levothyroxine 100 MCG TAB PO SCH (05:45)
[2018-04-12] MEDS: Magnesium Chloride 64 mg ER Tab PO SCH ×2 (08:21→16:37)
[2018-04-12] MEDS: RIOCIGUAT 2 MG PO SCH ×3 (08:21→16:38)
[2018-04-12] MEDS: Cholecalciferol 1,000 INTLU TAB PO SCH (08:22)
[2018-04-12] MEDS: Enoxaparin 40 mg Syringe SC SCH (08:23)
[2018-04-12 15:40] VITALS: RESP 20
[2018-04-12 17:53] LABS: HEMOGLOBIN 10.1 g/dL (12.0-16.0); MEAN CELL VOLUME 86.6 fl (81.0-99.0); MEAN CORPUSCULAR HEMOGLOBIN 28.1 pg (27.0-31.0); MEAN CORPUSCULAR HGB CONC 32.5 g/dL (33.0-37.0); RBC 3.6 Mil/uL (3.80-5.20); RED CELL DISTRIBUTION WIDTH 18.5 % (11.5-14.5); WHITE BLOOD COUNT 6.7 K/uL (4.8-10.8)
[2018-04-12 18:03] LABS: ALBUMIN 3.5 g/dL (3.5-5.0); CALCIUM 9.5 mg/dL (8.4-10.2)
[2018-04-12] MEDS: Magnesium Oxide 400 mg Tab UD PO SCH (20:54)
[2018-04-12] MEDS: Insulin Detemir 100 Units/ml Inj SC SCH (21:07)
[2018-04-13 01:24] LABS: OSMOLALITY,URINE 171 mosm/kg (300-1000)
[2018-04-13] MEDS: Levothyroxine 100 MCG TAB PO SCH (06:00)
[2018-04-13] MEDS: RIOCIGUAT 2 MG PO SCH ×2 (08:26→12:40)
[2018-04-13] MEDS: Magnesium Chloride 64 mg ER Tab PO SCH (08:26)
[2018-04-13] MEDS: Cholecalciferol 1,000 INTLU TAB PO SCH (08:38)
[2018-04-13] MEDS: Enoxaparin 40 mg Syringe SC SCH (08:39)
[2018-04-13] MEDS: Magnesium Oxide 400 mg Tab UD PO SCH (09:28)
--- NOTE | 2018-04-13 14:23 | CP.PCM.DIS ---
Provider - Provider Date of Admission: 04/06/18 17:34 Attending physician: David Neumann MD Primary care physician: David Neumann MD Consults: 04/06/18 19:26 Nephrology Consult Routine Comment: Consulting Provider: Yoan Nava Consulting Physician: Yoan Nava Reason for Consult: Hx of Multiple Myeloma, hypomagnesemia, hypecalcemia Time Spent in preparation of Discharge (in minutes): 60 Hospital Course - Lab Results Lab Results: Most Recent Lab Values WBC 6.7 K/uL (4.8-10.8) 04/12/18 17:45 RBC 3.60 Mil/uL (3.80-5.20) L 04/12/18 17:45 Hgb 10.1 g/dL (12.0-16.0) L 04/12/18 17:45 Hct 31.1 % (34.0-47.0) L 04/12/18 17:45 MCV 86.6 fl (81.0-99.0) 04/12/18 17:45 MCH 28.1 pg (27.0-31.0) 04/12/18 17:45 MCHC 32.5 g/dL (33.0-37.0) L 04/12/18 17:45 RDW 18.5 % (11.5-14.5) H 04/12/18 17:45 Plt Count 218 K/uL (130-400) 04/12/18 17:45 MPV 8.3 fl (7.2-11.7) 04/11/18 07:31 Neut % (Auto) 62.5 % (50.0-75.0) 04/11/18 07:31 Lymph % (Auto) 22.4 % (20.0-40.0) 04/11/18 07:31 [place] % (Auto) 14.6 % (0.0-10.0) H 04/11/18 07:31 Eos % (Auto) 0.5 % (0.0-4.0) 04/11/18 07:31 Baso % (Auto) 0.0 % (0.0-2.0) 04/11/18 07:31 Neut # (Auto) 3.0 K/uL (1.8-7.0) 04/11/18 07:31 Lymph # (Auto) 1.1 K/uL (1.0-4.3) 04/11/18 07:31 [place] # (Auto) 0.7 K/uL (0.0-0.8) 04/11/18 07:31 Eos # (Auto) 0.0 K/uL (0.0-0.7) 04/11/18 07:31 Baso # (Auto) 0.0 K/uL (0.0-0.2) 04/11/18 07:31 Sodium 130 mmol/l (132-148) L 04/12/18 17:45 Potassium 4.6 MMOL/L (3.6-5.0) 04/12/18 17:45 Chloride 88 mmol/L (98-107) L 04/12/18 17:45 Carbon Dioxide 31 mmol/L (22-30) H 04/12/18 17:45 Anion Gap 16 (10-20) 04/12/18 17:45 BUN 20 mg/dl (7-17) H 04/12/18 17:45 Creatinine 1.1 mg/dl (0.7-1.2) 04/12/18 17:45 Est GFR ( Amer) 59 04/12/18 17:45 Est GFR (Non-Af Amer) 49 04/12/18 17:45 POC Glucose (mg/dL) 107 mg/dL (65-110) 04/13/18 06:02 Random Glucose 84 mg/dL (65-105) 04/12/18 17:45 Calcium 9.5 mg/dL (8.4-10.2) 04/12/18 17:45 Phosphorus 4.5 mg/dl (2.5-4.5) 04/11/18 07:31 Magnesium 1.1 MG/DL (1.6-2.3) L 04/12/18 17:45 Total Bilirubin 0.5 mg/dl (0.2-1.3) 04/12/18 17:45 AST 35 U/L (14-36) 04/12/18 17:45 ALT 28 U/L (9-52) 04/12/18 17:45 Alkaline Phosphatase 128 U/L (38-126) H 04/12/18 17:45 Total Protein 7.1 G/DL (6.3-8.2) 04/12/18 17:45 Albumin 3.5 g/dL (3.5-5.0) 04/12/18 17:45 Globulin 3.6 gm/dL (2.2-3.9) 04/12/18 17:45 Albumin/Globulin Ratio 1.0 (1.0-2.1) 04/12/18 17:45 Urine Osmolality 171 mosm/kg (300-1000) L 04/13/18 00:50 Ur Random Sodium 6 mmol/L 04/13/18 00:50 - Hospital Course Hospital Course: 72 yo F with hx of multiple myeloma, DM, HTN, COPD, 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 While on the unit, patient had a period where she experienced a decrease in appetite. As a result, lispro was held and monitoring of glucose levels was continued. Due to the patient's chronic hypomagnesium, Dr. Hong started the patient on magnesium oxide, and slow mag. CPAP was continued at night, and patient continued with physical therapy daily. Patient was seen and examined this morning, awake sitting upright in bed with daughter at the bedside. Patient stated she felt better, and denied any fever, chills, chest pain or shortness of breath. Patient will be discharged home today. Of note, Enalapril was discontinued. Patient will continue taking slow mag upon discharge & magnesium oxide. Follow up scheduled for 04/15/[address] Morrison at [facility] [place]. Home Medication List lbuterol/Ipratropium (Duoneb 3 Mg/0.5 Mg (3 Ml) Ud) 3 ml INH RQ6 PRN Aripiprazole (Abilify) 2 mg PO HS [facility] Aspirin (Ecotrin) 81 mg PO DAILY [facility] Atorvastatin Calcium (Lipitor) 20 mg PO DAILY [facility] Benztropine Mesylate (Cogentin) 1 mg PO Q12 [facility] Bortezomib (Velcade) 3.5 mg IVP TUTH [facility] Buspirone HCl (Buspar) 15 mg PO Q12 [facility] Calcitriol (Rocaltrol) 0.25 mcg PO MWF [facility] Calcium Carbonate (Oscal) 500 mg PO BID [facility] Cholecalciferol (Vitamin D) 1,000 intlu PO DAILY [facility] Clonazepam (Klonopin) 0.5 mg PO DAILY PRN Duloxetine HCl (Cymbalta) 60 mg PO DAILY [facility] Escitalopram Oxalate (Lexapro) 10 mg PO DAILY [facility] Ferrous Sulfate (Feosol) 325 mg PO DAILY [facility] Gabapentin (Neurontin) 100 mg PO TID [facility] Home Med (Riociguat [Adempas]) 2 mg PO TID [facility] Hydrocortisone (Cortef) 10 mg PO HS [facility] Lantus 20 units SC HS Insulin Human Lispro (Humalog) 5 units SC TID [facility] Levothyroxine Sodium (Synthroid) 100 mcg PO DAILY@0630 [facility] Magnesium Chloride (Slow-Mag) 64 mg PO DAILY [facility] Magnesium oxide 400mg PO DAILY Metformin HCl (Glucophage) 500 mg PO BID [facility] Torsemide (Demadex) 10 mg PO DAILY [facility] Discharge Exam - Head Exam Head Exam: ATRAUMATIC, NORMAL INSPECTION - Eye Exam Eye Exam: EOMI - ENT Exam ENT Exam: Mucous Membranes Moist - Respiratory Exam Respiratory Exam: NORMAL BREATHING PATTERN. absent: Wheezes, Respiratory Distress, Stridor - Cardiovascular Exam Cardiovascular Exam: REGULAR RHYTHM, +S1, +S2 - GI/Abdominal Exam GI & Abdominal Exam: Normal Bowel Sounds, Soft. absent: Tenderness - Neurological Exam Neurological exam: Alert, Oriented x3 - Psychiatric Exam Psychiatric exam: Normal Affect, Normal Mood - Skin Skin Exam: Dry, Intact Discharge Plan - Discharge Medications Prescriptions: Magnesium Oxide 400 mg PO DAILY 30 Days #30 tablet - Follow Up Plan Condition: GOOD Disposition: HOME/ ROUTINE Instructions: Hypercalcemia (DC), Preventing Falls, Low Magnesium Level (DC) Additional Instructions: PLEASE FOLLOW UP WITH DR. MORRISON AT THE [facility] Wednesday04/15/18 AT 10 40 AM. IF UNABLE TO ATTEND PLEASE CALL [phone] TO RESCHEDULE. PRESCRIPTIONS GIVEN FOR BLOOD WORK PLEASE FOLLOW UP. Referrals: Yoan Nava MD [Staff Provider] - David Neumann MD [Primary Care Provider] -
[2018-04-13 15:34] VITALS: BP 128/71; PULSE 104; TEMP 98.3; O2SAT 95
== END 2018-04-13 16:54 | disposition home health service (06) | DRG 641 ==
LOC: H.TCU 17:34
PROVIDERS: ADMIT Family Medicine; ATTEND Family Medicine
PROC: 5A09557 Assistance with Respiratory Ventilation, Greater than 96 Consecutive Hours, Continuous Positive Airway Pressure (ICD-10-PCS; principal; 2018-04-07)
PROC: F07M6FZ Therapeutic Exercise Treatment of Musculoskeletal System - Whole Body using Assistive, Adaptive, Supportive or Protective Equipment (ICD-10-PCS; 2018-04-07)
PROC: F08Z4FZ Home Management Treatment using Assistive, Adaptive, Supportive or Protective Equipment (ICD-10-PCS; 2018-04-07)
DX: E83.52 Hypercalcemia (principal); E87.3 Alkalosis; I50.32 Chronic diastolic (congestive) heart failure; C90.00 Multiple myeloma not having achieved remission; E83.51 Hypocalcemia; E87.5 Hyperkalemia; E83.42 Hypomagnesemia; G20 Parkinson's disease; G47.30 Sleep apnea, unspecified; I11.0 Hypertensive heart disease with heart failure; I27.20 Pulmonary hypertension, unspecified; J44.9 Chronic obstructive pulmonary disease, unspecified; K21.9 Gastro-esophageal reflux disease without esophagitis; M06.9 Rheumatoid arthritis, unspecified; Q89.9 Congenital malformation, unspecified; R13.10 Dysphagia, unspecified; Z79.4 Long term (current) use of insulin; Z79.82 Long term (current) use of aspirin; Z79.899 Other long term (current) drug therapy; Z80.1 Family history of malignant neoplasm of trachea, bronchus and lung; Z82.49 Family history of ischemic heart disease and other diseases of the circulatory system; Z86.711 Personal history of pulmonary embolism; Z90.49 Acquired absence of other specified parts of digestive tract; Z99.81 Dependence on supplemental oxygen; F32.9 Major depressive disorder, single episode, unspecified; F41.9 Anxiety disorder, unspecified; G43.909 Migraine, unspecified, not intractable, without status migrainosus; M19.90 Unspecified osteoarthritis, unspecified site; R32 Unspecified urinary incontinence; R63.0 Anorexia; E03.9 Hypothyroidism, unspecified; E11.9 Type 2 diabetes mellitus without complications; E78.00 Pure hypercholesterolemia, unspecified; D63.0 Anemia in neoplastic disease

== ENCOUNTER 2018-05-28 22:00 | Observation (INO) | payer MEDICARE, OTHER ==
[2018-05-28 22:00] VITALS: BMI 35.9
--- NOTE | 2018-05-28 22:46 | ED PDOC ---
HPI: Abdomen Time Seen by Provider: 05/28/18 22:26 Chief Complaint (Nursing): GI Problem Chief Complaint (Provider): GI Problem History Per: Patient, Family History/Exam Limitations: no limitations Onset/Duration Of Symptoms: Days (x2) Current Symptoms Are (Timing): Still Present Additional Complaint(s): 72 y/o female with a PMHx of COPD presents to the ED with daughter for evaluation of vomiting for the past two days. Patient reports vomiting is associated with abdominal pain, urinary frequency and generalized weakness. Patient additionally notes of sleeping more often since onset of symptoms. Daughter notes patient's last vomiting episode appeared more green in color. Otherwise, patient denies dysuria and diarrhea. PMD: David Neumann Past Medical History Reviewed: Historical Data, Nursing Documentation, Vital Signs Vital Signs: Last Vital Signs Temp 98.6 F 05/28/18 22:04 Pulse 101 H 05/28/18 22:04 Resp 18 05/28/18 22:04 BP 79/40 L 05/28/18 22:04 Pulse Ox 84 L 05/28/18 22:04 - Medical History PMH: Anemia, Anxiety, Arthritis, Asthma, CAD, CHF, COPD, Depression, Diabetes, Deep Vein Thrombosis, Emphysema, Fibromyalgia, Fractures, GERD, HTN, Hypercholesterolemia, Hypothyroidism, Migraine, Parkinson's Disease, Pneumonia, Pulmonary Embolism, Rheumatoid Arthritis, Sleep Apnea Denies: HIV, Chronic Kidney Disease - Surgical History Surgical History: Appendectomy, Cholecystectomy, Endoscopy, Tonsillectomy - Family History Family History: States: Diabetes - Living Arrangements Living Arrangements: Alone - Social History Current smoker - smoking cessation education provided: No - Home Medications Home Medications: Ambulatory Orders Medication Instructions Recorded Aspirin [Ecotrin] 81 mg PO DAILY 03/05/17 clonazePAM [Klonopin] 0.5 mg PO DAILY PRN 03/05/17 ARIPiprazole [Abilify] 2 mg PO HS 05/11/17 Hydrocortisone [Cortef] 10 mg PO HS 05/11/17 Omeprazole 20 mg PO DAILY 05/11/17 Riociguat [Adempas] 2 mg PO TID 11/17/17 Ferrous Sulfate [Feosol] 325 mg PO DAILY tab 11/22/17 Atorvastatin [Lipitor] 20 mg PO DAILY 12/18/17 Benztropine [Cogentin] 1 mg PO Q12 12/18/17 Bortezomib [Velcade] 3.5 mg IV TUTH 12/18/17 Escitalopram [Lexapro] 10 mg PO DAILY 12/18/17 Albuterol/Ipratropium [Duoneb 3 3 ml INH RQ6 PRN neb 12/22/17 mg/0.5 mg (3 ml) UD] metFORMIN [glucOPHAGE] 500 mg PO BID 30 Days #60 tab 12/22/17 Calcitriol [Rocaltrol] 0.5 mcg PO Q12 01/25/18 Cholecalciferol [Vitamin D 1000 IU] 1,000 unit PO DAILY 01/25/18 Insulin Lispro [humALOG] 5 unit SC TID 01/25/18 busPIRone [Buspar] 15 mg PO Q12 01/25/18 Gabapentin [Neurontin] 100 mg PO TID 30 Days #90 capsule 02/03/18 Insulin Glargine, Recombina 20 unit SC HS 03/11/18 [Lantus] Calcium Carbonate [Calcium] 1 tab PO BID 03/23/18 DULoxetine [Cymbalta] 60 mg PO DAILY 03/23/18 Levothyroxine [Synthroid] 100 mcg PO DAILY@0630 tab 04/06/18 Torsemide [Demadex] 10 mg PO DAILY 30 Days #30 tab 04/06/18 aMILoride [aMILoride 5 mg Tab] 5 mg PO DAILY tab 04/06/18 Calcium/Chloride/Magnesium 64 mg PO BID ect 04/13/18 [Slow-Mag] Magnesium Oxide 400 mg PO DAILY 30 Days #30 tablet 04/13/18 - Allergies Allergies/Adverse Reactions: Allergies Allergy/AdvReac Type Severity Reaction Status Date / Time codeine AdvReac syncope, Verified 04/06/18 16:07 diaphoresis Review of Systems ROS Statement: Except As Marked, All Systems Reviewed And Found Negative Constitutional: Positive for: Weakness, Other (fatigue) Gastrointestinal: Positive for: Vomiting, Abdominal Pain. Negative for: Diarrhea Genitourinary Female: Negative for: Dysuria Musculoskeletal: Positive for: Back Pain Physical Exam - Reviewed Nursing Documentation Reviewed: Yes Vital Signs Reviewed: Yes - Physical Exam Appears: Positive for: No Acute Distress Head Exam: Positive for: ATRAUMATIC, NORMOCEPHALIC Skin: Positive for: Normal Color, Warm, Dry Eye Exam: Positive for: Normal appearance, EOMI, PERRL Neck: Positive for: Normal, Painless ROM Cardiovascular/Chest: Positive for: Regular Rate, Rhythm. Negative for: Murmur Respiratory: Positive for: Normal Breath Sounds. Negative for: Respiratory Distress Gastrointestinal/Abdominal: Positive for: Tenderness (Diffuse generalized tenderness) Extremity: Positive for: Normal ROM. Negative for: Deformity Neurological/Psych: Positive for: Awake, Alert, Oriented (x3). Negative for: Motor/Sensory Deficits - Laboratory Results Result Diagrams: 05/29/18 04:25 05/29/18 04:25 - ECG O2 Sat by Pulse Oximetry: 84 (RA) Pulse Ox Interpretation: Normal Medical Decision Making Medical Decision Making: Time: 2243 A/P: Workup for UTI vs. intra-abdominal pathology -- IV Fluids -- Labs and Urinalysis ordered -- Will obtain CT Abd/Pelvis if labs return abnormal. -- Re-assess patient -- VBG -- EKG -- CMP -- Troponin I -- CBC with Differentials -- CXR Portable -- Influenza A B -- Urinalysis Time: 0000 -- Labs demonstrating no clinically significant abnormality. Fluids ordered for patient to provide urine -- Patient endorsed to Dr. Campoverde, pending flu and urine. Scribe Attestation: Documented by Alli Damian, acting as a scribe Tracy Robbins MD. Provider Scribe Attestation: All medical record entries made by the Scribe were at my direction and personally dictated by me. I have reviewed the chart and agree that the record accurately reflects my personal performance of the history, physical exam, medical decision making, and the department course for this patient. I have also personally directed, reviewed, and agree with the discharge instructions and disposition. Disposition - Clinical Impression Clinical Impression: UTI (urinary tract infection) - Patient ED Disposition Is Patient to be Admitted: Transfer of Care Discussed With Dr.: Kenney Campoverde (pending urine results and re-evaluation for improved pain and vomiting.) - Disposition Disposition: Transfer of Care Disposition Time: 00:00 Condition: STABLE Patient Signed Over To: Kenney Campoverde Handoff Comments: pending flu and urine
[2018-05-28 23:08] LABS: BASO % 0.4 % (0.0-2.0); EOS # 0.2 K/uL (0.0-0.7); EOS % 3.3 % (0.0-4.0); HEMOGLOBIN 9.4 g/dL (12.0-16.0); LYMPH # 0.7 K/uL (1.0-4.3); LYMPH % 13.9 % (20.0-40.0); MEAN CORPUSCULAR HEMOGLOBIN 29.6 pg (27.0-31.0); MEAN CORPUSCULAR HGB CONC 32.9 g/dL (33.0-37.0); MEAN PLATELET VOLUME 8.2 fl (7.2-11.7); MONO # 0.5 K/uL (0.0-0.8); MONO % 9.3 % (0.0-10.0); NEUT # 3.6 K/uL (1.8-7.0); NEUT % 73.1 % (50.0-75.0); NRBC % 2.2 % (0.0-0.0); RBC 3.18 Mil/uL (3.80-5.20); RED CELL DISTRIBUTION WIDTH 18.9 % (11.5-14.5); WHITE BLOOD COUNT 4.9 K/uL (4.8-10.8)
[2018-05-28 23:14] LABS: VENOUS BLOOD GAS BASE EXCESS 12.3 mmol/L (0.0-2.0); VENOUS BLOOD GAS PCO2 54 mmHg (40-60); VENOUS BLOOD GAS PO2 20 mm/Hg (30-55); VENOUS BLOOD PH 7.46 (7.32-7.43)
[2018-05-28 23:19] LABS: ALBUMIN 3.5 g/dL (3.5-5.0); ALT/SGPT 26 U/L (9-52); AST/SGOT 33 U/L (14-36); BLOOD UREA NITROGEN 21 mg/dl (7-17); CALCIUM 9.5 mg/dL (8.4-10.2); GFR NON-AFRICAN AMERICAN 55
[2018-05-28] MEDS ORDERED: Sodium Chloride 0.9% 1,000 ML IV STA (23:26)
--- NOTE | 2018-05-29 00:04 | ED PDOC ---
- Laboratory Results Result Diagrams: 05/28/18 23:04 05/28/18 23:04 Lab Results: pO2 20 mm/Hg (30-55) L 05/28/18 23:00 VBG pH 7.46 (7.32-7.43) H 05/28/18 23:00 VBG pCO2 54 mmHg (40-60) 05/28/18 23:00 VBG HCO3 32.9 mmol/L 05/28/18 23:00 VBG Total CO2 40.1 mmol/L (22-28) H 05/28/18 23:00 VBG O2 Sat (Calc) 32.0 % (40-65) L 05/28/18 23:00 VBG Base Excess 12.3 mmol/L (0.0-2.0) H 05/28/18 23:00 VBG Potassium 4.0 mmol/L (3.6-5.2) 05/28/18 23:00 Sodium 135.0 mmol/L (132-148) 05/28/18 23:00 Chloride 98.0 mmol/L (98-107) 05/28/18 23:00 Glucose 142 mg/dL (65-105) H 05/28/18 23:00 Lactate 1.5 mmol/L (0.7-2.1) 05/28/18 23:00 FiO2 21.0 % 05/28/18 23:00 Troponin I 0.0200 ng/mL (0.00-0.120) 05/28/18 23:04 Total Bilirubin 0.5 mg/dl (0.2-1.3) 05/28/18 23:04 AST 33 U/L (14-36) 05/28/18 23:04 ALT 26 U/L (9-52) 05/28/18 23:04 Alkaline Phosphatase 67 U/L (38-126) 05/28/18 23:04 Total Protein 7.1 G/DL (6.3-8.2) 05/28/18 23:04 Albumin 3.5 g/dL (3.5-5.0) 05/28/18 23:04 Globulin 3.5 gm/dL (2.2-3.9) 05/28/18 23:04 Albumin/Globulin Ratio 1.0 (1.0-2.1) 05/28/18 23:04 - ECG O2 Sat by Pulse Oximetry: 84 (RA) Pulse Ox Interpretation: Normal Medical Decision Making Medical Decision Making: Time: 0000 -- Patient endorsed to me by Dr. Robbins, pending flu, urine, re-evaluation and final ER disposition. Time: 0127 -- Labs reviewed and Urinalysis is indicative of UTI. Patient will be placed on OBSERVATION status for further hydration. Case referred to hospitalist, Dr. Hoff for further management. Scribe Attestation: Documented by Alli Damian, acting as a scribe Willie Campoverde MD. Provider Scribe Attestation: All medical record entries made by the Scribe were at my direction and personally dictated by me. I have reviewed the chart and agree that the record a ccurately reflects my personal performance of the history, physical exam, medical decision making, and the department course for this patient. I have also personally directed, reviewed, and agree with the discharge instructions and disposition. Disposition Counseled Patient/Family Regarding: Studies Performed, Diagnosis - Clinical Impression Clinical Impression: UTI (urinary tract infection) - POA Present On Arrival: None - Disposition Disposition: Hospitalized as Observation Patient Disposition Time: 01:24 Condition: STABLE Forms: Iggli (Armenian)
[2018-05-29 01:00] LABS: SQUAMOUS EPITHIAL 1 /hpf (0-5); URINE BILIRUBIN NEGATIVE (NEGATIVE); URINE BLOOD NEGATIVE (NEGATIVE); URINE CLARITY CLEAR (Clear); URINE COLOR STRAW (YELLOW); URINE GLUCOSE (UA) NEG (NEGATIVE); URINE LEUKOCYTE ESTERASE SMALL Leu/uL (Negative); URINE PROTEIN NEGATIVE (NEGATIVE); URINE UROBILINOGEN 0.2-1.0 mg/dL (0.2-1.0)
--- NOTE | 2018-05-29 02:18 | CP.PCM.HP ---
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 Pt reported some abdominal cramping in ED, as well as urinary frequency, but denied dysuria. As per daughter, vomit was brown/green, but not red/black and without any coffee ground looking contents. Patient denied headache, shortness of breath, chest pain, diarrhea. Stated she was constipated a few days ago but has had regular bowel movements for the past few days, including day of admission. PMD: Dr Neumann Psych: Chase Miller APN Script Artist: Dr Cisneros Heme/Oncology: Dr Vilchis Past Med Hx: Multiple Myeloma, T2DM, HTN, COPD, Hypothyroidsm, GERD, hx of PE s/p IVC filter 2014. Past Surg Hx: Ankle fracture repair, Cholecystectomy, Breast cyst surgery x2, tonsillectomy. Family Hx: Father had Lung CA and HTN, Mother of a heart attack. Social Hx: Denies Tobacco/ETOH/Rec Drug use. Next of Kin: Daughter Megha [phone] Code status: Full code In ED: Vitals: afebrile, initial BP 79/40, however improved to 140/67, HR 101, RR 18, O2 sat 98 on 2L NC Labs remarkable for hypokalemia at 3.5, elevatyed BUN 21, H/H 9.4/28.6. Calcium 9.5, wnl Troponin neg Lactate 1.5 UA small LE and 8WBC/hpf Blood and urine cultures collected Received: 4 mg zofran IVP 1L NS bolus 1 gm IV ceftriaxone Present on Admission - Present on Admission Any Indicators Present on Admission: Yes History of DVT/PE: Yes History of Uncontrolled Diabetes: Yes Review of Systems - Review of Systems Review of Systems: as per hpi Past Patient History - Infectious Disease Hx of Infectious Diseases: None - Tetanus Immunizations Tetanus Immunization: Unknown - Past Medical History & Family History Past Medical History?: Yes - Past Social History Smoking Status: Never Smoked Alcohol: None Drugs: Denies - CARDIAC Hx Congestive Heart Failure: Yes Hx Hypercholesterolemia: Yes Hx Hypertension: Yes - PULMONARY Hx Asthma: Yes Hx Chronic Obstructive Pulmonary Disease (COPD): Yes Hx Emphysema: Yes Hx Pneumonia: Yes Hx Pulmonary Embolism: Yes Hx Sleep Apnea: Yes - NEUROLOGICAL Hx Migraine: Yes Hx Parkinson's Disease: Yes - HEENT Hx HEENT Problems: No - RENAL Hx Chronic Kidney Disease: No - ENDOCRINE/METABOLIC Hx Hypothyroidism: Yes - HEMATOLOGICAL/ONCOLOGICAL Hx Anemia: Yes Hx Human Immunodeficiency Virus (HIV): No - INTEGUMENTARY Hx Dermatological Problems: No - MUSCULOSKELETAL/RHEUMATOLOGICAL Hx Arthritis: Yes Hx Fractures: Yes Hx Rheumatoid Arthritis: Yes - GASTROINTESTINAL Hx Gastrointestinal Disorders: No - GENITOURINARY/GYNECOLOGICAL Hx Genitourinary Disorders: Yes Hx Incontinence: Yes - PSYCHIATRIC Hx Anxiety: Yes Hx Depression: Yes - SURGICAL HISTORY Hx Appendectomy: Yes Hx Cholecystectomy: Yes Hx Tonsillectomy: Yes - ANESTHESIA Hx Anesthesia: Yes Hx Anesthesia Reactions: Yes (Resp. Distress) Hx Malignant Hyperthermia: No Meds Allergies/Adverse Reactions: Allergies Allergy/AdvReac Type Severity Reaction Status Date / Time codeine AdvReac syncope, Verified 04/06/18 16:07 diaphoresis Physical Exam - Constitutional Appears: Non-toxic, No Acute Distress - Head Exam Head Exam: NORMAL INSPECTION - Eye Exam Eye Exam: Normal appearance Additional comments: wears glasses - Respiratory Exam Respiratory Exam: NORMAL BREATHING PATTERN. absent: Wheezes, Respiratory Distress - Cardiovascular Exam Cardiovascular Exam: +S1, +S2 - GI/Abdominal Exam GI & Abdominal Exam: Normal Bowel Sounds (in all 4 quadrants), Soft - Extremities Exam Extremities exam: Negative for: pedal edema - Neurological Exam Neurological exam: Alert, Oriented x3 - Skin Skin Exam: Dry, Normal Color, Warm Results - Vital Signs Recent Vital Signs: Last Vital Signs Temp 98.6 F 05/28/18 22:04 Pulse 89 05/29/18 01:59 Resp 18 05/29/18 01:59 BP 140/67 05/29/18 01:59 Pulse Ox 98 05/29/18 01:59 - Labs Result Diagrams: 05/28/18 23:04 05/28/18 23:04 Labs: Laboratory Results - last 24 hr 05/28/18 05/28/18 05/28/18 23:00 23:04 23:04 WBC 4.9 RBC 3.18 L Hgb 9.4 L Hct 28.6 L MCV 90.0 D MCH 29.6 MCHC 32.9 L RDW 18.9 H Plt Count 217 MPV 8.2 Neut % (Auto) 73.1 Lymph % (Auto) 13.9 L [place] % (Auto) 9.3 Eos % (Auto) 3.3 Baso % (Auto) 0.4 Neut # (Auto) 3.6 Lymph # (Auto) 0.7 L [place] # (Auto) 0.5 Eos # (Auto) 0.2 Baso # (Auto) 0.0 pO2 20 L VBG pH 7.46 H VBG pCO2 54 VBG HCO3 32.9 VBG Total CO2 40.1 H VBG O2 Sat (Calc) 32.0 L VBG Base Excess 12.3 H VBG Potassium 4.0 Sodium 135.0 137 Chloride 98.0 93 L Glucose 142 H Lactate 1.5 FiO2 21.0 Potassium 3.4 L Carbon Dioxide 34 H Anion Gap 13 BUN 21 H Creatinine 1.0 Est GFR ( Amer) > 60 Est GFR (Non-Af Amer) 55 Random Glucose 135 H Calcium 9.5 Total Bilirubin 0.5 AST 33 ALT 26 Alkaline Phosphatase 67 Troponin I 0.0200 Total Protein 7.1 Albumin 3.5 Globulin 3.5 Albumin/Globulin Ratio 1.0 Venous Blood Potassium 4.0 Urine Color Urine Clarity Urine pH Ur Specific [place] Urine Protein Urine Glucose (UA) Urine Ketones Urine Blood Urine Nitrate Urine Bilirubin Urine Urobilinogen Ur Leukocyte Esterase Urine RBC (Auto) Urine Microscopic WBC Ur Squamous Epith Cells Influenza Typ A,B (EIA) 05/28/18 05/29/18 23:15 00:50 WBC RBC Hgb Hct MCV MCH MCHC RDW Plt Count MPV Neut % (Auto) Lymph % (Auto) [place] % (Auto) Eos % (Auto) Baso % (Auto) Neut # (Auto) Lymph # (Auto) [place] # (Auto) Eos # (Auto) Baso # (Auto) pO2 VBG pH VBG pCO2 VBG HCO3 VBG Total CO2 VBG O2 Sat (Calc) VBG Base Excess VBG Potassium Sodium Chloride Glucose Lactate FiO2 Potassium Carbon Dioxide Anion Gap BUN Creatinine Est GFR ( Amer) Est GFR (Non-Af Amer) Random Glucose Calcium Total Bilirubin AST ALT Alkaline Phosphatase Troponin I Total Protein Albumin Globulin Albumin/Globulin Ratio Venous Blood Potassium Urine Color Straw Urine Clarity Clear Urine pH 8.0 Ur Specific [place] 1.006 Urine Protein Negative Urine Glucose (UA) Neg Urine Ketones Negative Urine Blood Negative Urine Nitrate Negative Urine Bilirubin Negative Urine Urobilinogen 0.2-1.0 Ur Leukocyte Esterase Small Urine RBC (Auto) < 1 Urine Microscopic WBC 8 H Ur Squamous Epith Cells 1 Influenza Typ A,B (EIA) Negative for flu a/b Assessment & Plan - Assessment and Plan (Free Text) Assessment: 72 y/o F with a PMHx of Multiple Myeloma, IDDM, HTN, COPD, pulmonary HTN, depression, Eric's Esophagus, 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 Admitted due to vomiting and dehydration. Plan: Vomiting - Tolerated PO water in ED - Clear liquid diet as tolerated - Zofran 4 mg IVP Q6h - F/u blood and urine cultures Hypokalemia - NS with 20mEq K at 100 ml/hr - BMP in am, including Mg, Phos - Mg in am IDDM - Blood glucose 135 in ED - Hold meds - Insulin coverage scale, hypoglycemia protocol - Accucheks Q6 hrs Multiple Myeloma/Anemia - Sees Dr. Vilchis outpatient - PO Iron, home med, for anemia CHF/HTN - Echocardiogram on 08/25/17 showed LVEF 60-65%, grade I abnormal relaxation pattern. - Monitor BP COPD - NC @ 2L continuous, uses at home - Duoneb Q6 PRN Hypothyroidism - Home med levothyroxine Depression - Home meds abilify, buspar, cogentin, cymbalta GERD - Protonix 40 mg daily IVP DVT Prophylaxis -Lovenox 40mg SC daily Pt seen with Dr. Hoff. <Brent Hoff - Last Filed: 05/29/18 06:40> Results - Vital Signs Recent Vital Signs: Last Vital Signs Temp 98.6 F 05/28/18 22:04 Pulse 84 05/29/18 05:20 Resp 17 05/29/18 05:01 BP 121/11 L 05/29/18 05:01 Pulse Ox 98 05/29/18 05:01 - Labs Result Diagrams: 05/29/18 04:25 05/29/18 04:25 Labs: Laboratory Results - last 24 hr 05/28/18 05/28/18 05/28/18 23:00 23:04 23:04 WBC 4.9 RBC 3.18 L Hgb 9.4 L Hct 28.6 L MCV 90.0 D MCH 29.6 MCHC 32.9 L RDW 18.9 H Plt Count 217 MPV 8.2 Neut % (Auto) 73.1 Lymph % (Auto) 13.9 L [place] % (Auto) 9.3 Eos % (Auto) 3.3 Baso % (Auto) 0.4 Neut # (Auto) 3.6 Lymph # (Auto) 0.7 L [place] # (Auto) 0.5 Eos # (Auto) 0.2 Baso # (Auto) 0.0 pO2 20 L VBG pH 7.46 H VBG pCO2 54 VBG HCO3 32.9 VBG Total CO2 40.1 H VBG O2 Sat (Calc) 32.0 L VBG Base Excess 12.3 H VBG Potassium 4.0 Sodium 135.0 137 Chloride 98.0 93 L Glucose 142 H Lactate 1.5 FiO2 21.0 Potassium 3.4 L Carbon Dioxide 34 H Anion Gap 13 BUN 21 H Creatinine 1.0 Est GFR ( Amer) > 60 Est GFR (Non-Af Amer) 55 Random Glucose 135 H Calcium 9.5 Phosphorus Magnesium Total Bilirubin 0.5 AST 33 ALT 26 Alkaline Phosphatase 67 Troponin I 0.0200 Total Protein 7.1 Albumin 3.5 Globulin 3.5 Albumin/Globulin Ratio 1.0 Venous Blood Potassium 4.0 Urine Color Urine Clarity Urine pH Ur Specific [place] Urine Protein Urine Glucose (UA) Urine Ketones Urine Blood Urine Nitrate Urine Bilirubin Urine Urobilinogen Ur Leukocyte Esterase Urine RBC (Auto) Urine Microscopic WBC Ur Squamous Epith Cells Influenza Typ A,B (EIA) 05/28/18 05/29/18 05/29/18 23:15 00:50 04:25 WBC 4.4 L RBC 2.85 L Hgb 8.7 L Hct 25.5 L MCV 89.4 MCH 30.5 MCHC 34.1 RDW 19.2 H Plt Count 199 MPV 8.8 Neut % (Auto) 67.5 Lymph % (Auto) 21.0 [place] % (Auto) 10.9 H Eos % (Auto) 0.4 Baso % (Auto) 0.2 Neut # (Auto) 3.0 Lymph # (Auto) 0.9 L [place] # (Auto) 0.5 Eos # (Auto) 0.0 Baso # (Auto) 0.0 pO2 VBG pH VBG pCO2 VBG HCO3 VBG Total CO2 VBG O2 Sat (Calc) VBG Base Excess VBG Potassium Sodium Chloride Glucose Lactate FiO2 Potassium Carbon Dioxide Anion Gap BUN Creatinine Est GFR ( Amer) Est GFR (Non-Af Amer) Random Glucose Calcium Phosphorus Magnesium Total Bilirubin AST ALT Alkaline Phosphatase Troponin I Total Protein Albumin Globulin Albumin/Globulin Ratio Venous Blood Potassium Urine Color Straw Urine Clarity Clear Urine pH 8.0 Ur Specific [place] 1.006 Urine Protein Negative Urine Glucose (UA) Neg Urine Ketones Negative Urine Blood Negative Urine Nitrate Negative Urine Bilirubin Negative Urine Urobilinogen 0.2-1.0 Ur Leukocyte Esterase Small Urine RBC (Auto) < 1 Urine Microscopic WBC 8 H Ur Squamous Epith Cells 1 Influenza Typ A,B (EIA) Negative for flu a/b 05/29/18 04:25 WBC RBC Hgb Hct MCV MCH MCHC RDW Plt Count MPV Neut % (Auto) Lymph % (Auto) [place] % (Auto) Eos % (Auto) Baso % (Auto) Neut # (Auto) Lymph # (Auto) [place] # (Auto) Eos # (Auto) Baso # (Auto) pO2 VBG pH VBG pCO2 VBG HCO3 VBG Total CO2 VBG O2 Sat (Calc) VBG Base Excess VBG Potassium Sodium 136 Chloride 97 L Glucose Lactate FiO2 Potassium 3.4 L Carbon Dioxide 32 H Anion Gap 10 BUN 20 H Creatinine 0.9 Est GFR ( Amer) > 60 Est GFR (Non-Af Amer) > 60 Random Glucose 116 H Calcium 8.6 Phosphorus 3.6 Magnesium 1.8 Total Bilirubin 0.4 AST 27 ALT 26 Alkaline Phosphatase 58 Troponin I Total Protein 6.3 Albumin 3.0 L Globulin 3.2 Albumin/Globulin Ratio 0.9 L Venous Blood Potassium Urine Color Urine Clarity Urine pH Ur Specific [place] Urine Protein Urine Glucose (UA) Urine Ketones Urine Blood Urine Nitrate Urine Bilirubin Urine Urobilinogen Ur Leukocyte Esterase Urine RBC (Auto) Urine Microscopic WBC Ur Squamous Epith Cells Influenza Typ A,B (EIA) Attending/Attestation - Attestation I have personally seen and examined this patient.: Yes I have fully participated in the care of the patient.: Yes I have reviewed all pertinent clinical information: Yes Notes (Text): 05/29/18 06:35 I saw, Examined and discussed this patient with Dr Worthy. I agree with the assessment and plan outlined above. This is a 72 years old female with hx of COPD on home Oxygen, GERD and Diabetes Mellitus. She comes with 2 days of vomiting withgeneralized wekness. We will treat for Intractable vomiting with hypokalemia, dehydration and generalized weakness. Continue Antiemetic, IV Fluids, replace Potassium. Treat Diabetes Mellitus and GERD Follow Electrolytes and renal labs Brent Hoff MD
[2018-05-29] MEDS ORDERED: Albuterol-Ipratrop 3 mg / 0.5 (3 ml) UD INH PRN (02:38)
[2018-05-29] MEDS: Potassium Chl 20 mEq in NS 1,000 ML IV SCH ×2 (03:40→15:20)
[2018-05-29] MEDS ORDERED: Glucagon Recombinant 1 mg Inj IM PRN (03:56)
[2018-05-29] MEDS ORDERED: Dextrose 50% SYRINGE Inj (50 ml) IV PRN (03:56)
[2018-05-29] MEDS ORDERED: cefTRIAXone (Rocephin) 1 gm Inj ONE (04:30)
[2018-05-29] MEDS ORDERED: Potassium CL 10 MEQ/50 ML 0 ML ONE (04:31)
[2018-05-29 06:15] LABS: BASO % 0.2 % (0.0-2.0); EOS % 0.4 % (0.0-4.0); HEMOGLOBIN 8.7 g/dL (12.0-16.0); LYMPH # 0.9 K/uL (1.0-4.3); MEAN CELL VOLUME 89.4 fl (81.0-99.0); MEAN CORPUSCULAR HEMOGLOBIN 30.5 pg (27.0-31.0); MEAN CORPUSCULAR HGB CONC 34.1 g/dL (33.0-37.0); MEAN PLATELET VOLUME 8.8 fl (7.2-11.7); MONO # 0.5 K/uL (0.0-0.8); MONO % 10.9 % (0.0-10.0); NEUT % 67.5 % (50.0-75.0); NRBC % 0.2 % (0.0-0.0); RBC 2.85 Mil/uL (3.80-5.20); RED CELL DISTRIBUTION WIDTH 19.2 % (11.5-14.5); WHITE BLOOD COUNT 4.4 K/uL (4.8-10.8)
[2018-05-29 06:26] LABS: ALB/GLOB RATIO 0.9 (1.0-2.1); ALT/SGPT 26 U/L (9-52); AST/SGOT 27 U/L (14-36); BLOOD UREA NITROGEN 20 mg/dl (7-17); CALCIUM 8.6 mg/dL (8.4-10.2); GFR NON-AFRICAN AMERICAN > 60
[2018-05-29] MEDS ORDERED: Potassium Chloride 20 mEq ER Tab PO ONE ×2 (06:27→07:41)
[2018-05-29] MEDS ORDERED: Levothyroxine 100 MCG TAB PO SCH (06:30)
[2018-05-29] MEDS: Insulin Lispro (humaLOG) 100 Units/ml Inj SC SCH ×2 (08:20→12:09)
--- NOTE | 2018-05-29 11:16 | CP.PCM.DIS ---
Provider - Provider Date of Admission: 05/29/18 01:24 Attending physician: Brent Hoff Time Spent in preparation of Discharge (in minutes): 20 Diagnosis - Discharge Diagnosis (1) Dehydration, moderate Status: Resolved Hospital Course - Lab Results Lab Results: Most Recent Lab Values WBC 4.4 K/uL (4.8-10.8) L 05/29/18 04:25 RBC 2.85 Mil/uL (3.80-5.20) L 05/29/18 04:25 Hgb 8.7 g/dL (12.0-16.0) L 05/29/18 04:25 Hct 25.5 % (34.0-47.0) L 05/29/18 04:25 MCV 89.4 fl (81.0-99.0) 05/29/18 04:25 MCH 30.5 pg (27.0-31.0) 05/29/18 04:25 MCHC 34.1 g/dL (33.0-37.0) 05/29/18 04:25 RDW 19.2 % (11.5-14.5) H 05/29/18 04:25 Plt Count 199 K/uL (130-400) 05/29/18 04:25 MPV 8.8 fl (7.2-11.7) 05/29/18 04:25 Neut % (Auto) 67.5 % (50.0-75.0) 05/29/18 04:25 Lymph % (Auto) 21.0 % (20.0-40.0) 05/29/18 04:25 [place] % (Auto) 10.9 % (0.0-10.0) H 05/29/18 04:25 Eos % (Auto) 0.4 % (0.0-4.0) 05/29/18 04:25 Baso % (Auto) 0.2 % (0.0-2.0) 05/29/18 04:25 Neut # (Auto) 3.0 K/uL (1.8-7.0) 05/29/18 04:25 Lymph # (Auto) 0.9 K/uL (1.0-4.3) L 05/29/18 04:25 [place] # (Auto) 0.5 K/uL (0.0-0.8) 05/29/18 04:25 Eos # (Auto) 0.0 K/uL (0.0-0.7) 05/29/18 04:25 Baso # (Auto) 0.0 K/uL (0.0-0.2) 05/29/18 04:25 pO2 20 mm/Hg (30-55) L 05/28/18 23:00 VBG pH 7.46 (7.32-7.43) H 05/28/18 23:00 VBG pCO2 54 mmHg (40-60) 05/28/18 23:00 VBG HCO3 32.9 mmol/L 05/28/18 23:00 VBG Total CO2 40.1 mmol/L (22-28) H 05/28/18 23:00 VBG O2 Sat (Calc) 32.0 % (40-65) L 05/28/18 23:00 VBG Base Excess 12.3 mmol/L (0.0-2.0) H 05/28/18 23:00 VBG Potassium 4.0 mmol/L (3.6-5.2) 05/28/18 23:00 Sodium 135.0 mmol/L (132-148) 05/28/18 23:00 Chloride 98.0 mmol/L (98-107) 05/28/18 23:00 Glucose 142 mg/dL (65-105) H 05/28/18 23:00 Lactate 1.5 mmol/L (0.7-2.1) 05/28/18 23:00 FiO2 21.0 % 05/28/18 23:00 Sodium 136 mmol/l (132-148) 05/29/18 04:25 Potassium 3.4 MMOL/L (3.6-5.0) L 05/29/18 04:25 Chloride 97 mmol/L (98-107) L 05/29/18 04:25 Carbon Dioxide 32 mmol/L (22-30) H 05/29/18 04:25 Anion Gap 10 (10-20) 05/29/18 04:25 BUN 20 mg/dl (7-17) H 05/29/18 04:25 Creatinine 0.9 mg/dl (0.7-1.2) 05/29/18 04:25 Est GFR ( Amer) > 60 05/29/18 04:25 Est GFR (Non-Af Amer) > 60 05/29/18 04:25 POC Glucose (mg/dL) 114 mg/dL (65-110) H 05/29/18 05:23 Random Glucose 116 mg/dL (65-105) H 05/29/18 04:25 Calcium 8.6 mg/dL (8.4-10.2) 05/29/18 04:25 Phosphorus 3.6 mg/dl (2.5-4.5) 05/29/18 04:25 Magnesium 1.8 MG/DL (1.6-2.3) 05/29/18 04:25 Total Bilirubin 0.4 mg/dl (0.2-1.3) 05/29/18 04:25 AST 27 U/L (14-36) 05/29/18 04:25 ALT 26 U/L (9-52) 05/29/18 04:25 Alkaline Phosphatase 58 U/L (38-126) 05/29/18 04:25 Troponin I 0.0200 ng/mL (0.00-0.120) 05/28/18 23:04 Total Protein 6.3 G/DL (6.3-8.2) 05/29/18 04:25 Albumin 3.0 g/dL (3.5-5.0) L 05/29/18 04:25 Globulin 3.2 gm/dL (2.2-3.9) 05/29/18 04:25 Albumin/Globulin Ratio 0.9 (1.0-2.1) L 05/29/18 04:25 Venous Blood Potassium 4.0 mmol/L (3.6-5.2) 05/28/18 23:00 Urine Color Straw (YELLOW) 05/29/18 00:50 Urine Clarity Clear (Clear) 05/29/18 00:50 Urine pH 8.0 (5.0-8.0) 05/29/18 00:50 Ur Specific [place] 1.006 (1.003-1.030) 05/29/18 00:50 Urine Protein Negative mg/dL (NEGATIVE) 05/29/18 00:50 Urine Glucose (UA) Neg mg/dL (NEGATIVE) 05/29/18 00:50 Urine Ketones Negative mg/dL (NEGATIVE) 05/29/18 00:50 Urine Blood Negative (NEGATIVE) 05/29/18 00:50 Urine Nitrate Negative (NEGATIVE) 05/29/18 00:50 Urine Bilirubin Negative (NEGATIVE) 05/29/18 00:50 Urine Urobilinogen 0.2-1.0 mg/dL (0.2-1.0) 05/29/18 00:50 Ur Leukocyte Esterase Small [place]/uL (Negative) 05/29/18 00:50 Urine RBC (Auto) < 1 /hpf (0-3) 05/29/18 00:50 Urine Microscopic WBC 8 /hpf (0-5) H 05/29/18 00:50 Ur Squamous Epith Cells 1 /hpf (0-5) 05/29/18 00:50 Influenza Typ A,B (EIA) Negative for flu a/b (NEGATIVE) 05/28/18 23:15 - Hospital Course Hospital Course: 72 yo female with PMhx Multiple Myeloma, IDDM, HTN, COPD, pulmonary HTN, depression, Barrets Esophagus, 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 Patient was admitted for further evaluation of vomiting and dehydration. In ED: Vitals: afebrile, initial BP 79/40, however improved to 140/67, HR 101, RR 18, O2 sat 98 on 2L NC Labs remarkable for hypokalemia at 3.5, elevatyed BUN 21, H/H 9.4/28.6. Calcium 9.5, wnl Troponin neg Lactate 1.5 UA small LE and 8WBC/hpf Blood and urine cultures collected Patient received 4 mg zofran IVP 1L NS bolus 1 gm IV ceftriaxone Patient received 20mEq K at 100ml/hr Patient was seen this morning. Patient feel better, she denies having any nausea/vomiting or diarrhea. She is comfortable to be discharged home and follow up with PCP Patient denies any chest pain, sob, abd pain, diarrhea, constipation dysuria or polyuria Patient labs are stable, vitals stable, Patient is stable to be discharged home ED precaution given, follow up with PCP Discharge Exam - Head Exam Head Exam: NORMAL INSPECTION - Eye Exam Eye Exam: EOMI, Normal appearance, PERRL Pupil Exam: NORMAL ACCOMODATION, PERRL - Respiratory Exam Respiratory Exam: Clear to PA & Lateral, NORMAL BREATHING PATTERN, UNREMARKABLE - Cardiovascular Exam Cardiovascular Exam: REGULAR RHYTHM, +S1, +S2 - GI/Abdominal Exam GI & Abdominal Exam: Normal Bowel Sounds, Unremarkable - Neurological Exam Neurological exam: Alert, Oriented x3 - Psychiatric Exam Psychiatric exam: Normal Affect, Normal Mood - Skin Skin Exam: Dry, Intact, Normal Color Discharge Plan - Follow Up Plan Condition: STABLE Disposition: HOME/ ROUTINE Patient education suggested?: Yes
--- NOTE | 2018-05-29 11:37 | RAD ---
Date of service: 05/28/2018 HISTORY: possible admission COMPARISON: No prior. TECHNIQUE: 1 view obtained. FINDINGS: LUNGS: Mild bibasilar atelectasis. The central pulmonary vasculature is slightly increased; findings could represent mild chronic compensated pulmonary venous congestion PLEURA: Tiny effusions not excluded. No pneumothorax apparent. CARDIOVASCULAR: Mild aortic atherosclerotic calcification present. Cardiomegaly. No pulmonary vascular congestion. OSSEOUS STRUCTURES: No significant abnormalities. VISUALIZED UPPER ABDOMEN: Normal. OTHER FINDINGS: None. IMPRESSION: Mild bibasilar atelectasis. The central pulmonary vasculature is slightly increased; findings could represent mild chronic compensated pulmonary venous congestion. Tiny effusions not excluded
[2018-05-29 18:13] VITALS: BP 121/86; PULSE 86; RESP 18; TEMP 97.8
--- NOTE | 2018-05-29 20:03 | CARD ---
APPROVED REPORT Date of service: 05/29/2018 EKG Measurement Heart [id number] <Conclusion> Normal sinus rhythm Low voltage QRS ST & T wave abnormality, consider anterior ischemia Prolonged QT Abnormal ECG
[2018-05-29 21:25] VITALS: O2SAT 84
== END 2018-05-29 15:20 | disposition home or self-care (01) ==
LOC: H.ER 22:00 → H.ERHOLD 05-29 01:24
PROVIDERS: ADMIT Internal Medicine; ATTEND Internal Medicine
DX: N39.0 Urinary tract infection, site not specified (principal); E86.0 Dehydration; F32.9 Major depressive disorder, single episode, unspecified; D64.9 Anemia, unspecified; F41.9 Anxiety disorder, unspecified; G43.909 Migraine, unspecified, not intractable, without status migrainosus; E87.6 Hypokalemia; I25.10 Atherosclerotic heart disease of native coronary artery without angina pectoris; K21.9 Gastro-esophageal reflux disease without esophagitis; I27.20 Pulmonary hypertension, unspecified; G20 Parkinson's disease; J43.9 Emphysema, unspecified; M79.7 Fibromyalgia; M19.90 Unspecified osteoarthritis, unspecified site; R32 Unspecified urinary incontinence; E78.00 Pure hypercholesterolemia, unspecified; E03.9 Hypothyroidism, unspecified; E11.9 Type 2 diabetes mellitus without complications; Z79.4 Long term (current) use of insulin; G47.30 Sleep apnea, unspecified; I11.0 Hypertensive heart disease with heart failure; I50.9 Heart failure, unspecified; M06.9 Rheumatoid arthritis, unspecified; Z79.82 Long term (current) use of aspirin; Z80.1 Family history of malignant neoplasm of trachea, bronchus and lung; Z82.49 Family history of ischemic heart disease and other diseases of the circulatory system; Z86.711 Personal history of pulmonary embolism; Z87.01 Personal history of pneumonia (recurrent); Z79.84 Long term (current) use of oral hypoglycemic drugs; Z79.899 Other long term (current) drug therapy; Z85.79 Personal history of other malignant neoplasms of lymphoid, hematopoietic and related tissues
CPT/HCPCS: 71045; 80053; 81003; 82803; 82948; 83735; 84100; 84484; 85025; 87040; 87086; 87804; 93005; 96374; 99285; C9113; G0378; J0696; J2405; J7030

== ENCOUNTER 2018-07-01 13:47 | Emergency (ER) | payer MEDICARE, OTHER ==
[2018-07-01 13:47] VITALS: BMI 35.9
[2018-07-01 14:02] VITALS: TEMP 98.4
--- NOTE | 2018-07-01 14:56 | ED PDOC ---
HPI: Abdomen Time Seen by Provider: 07/01/18 14:02 Chief Complaint (Nursing): Shortness Of Breath Chief Complaint (Provider): Nausea, diarrhea History Per: Patient, Family History/Exam Limitations: no limitations Additional Complaint(s): Pt reports 2 day history of nausea, abdominal pain and nonbloody diarrhea. Also c/o SOB and back pain. Denies fever, vomiting, recent antibiotic use, urinary symptoms. Past Medical History Reviewed: Nursing Documentation, Vital Signs Vital Signs: Last Vital Signs Temp 98.4 F 07/01/18 13:54 Pulse 88 07/01/18 13:54 Resp 20 07/01/18 13:54 BP 115/59 L 07/01/18 13:54 Pulse Ox 99 07/01/18 14:12 - Medical History PMH: Anemia, Anxiety, Arthritis, Asthma, CAD, CHF, COPD, Depression, Diabetes, Deep Vein Thrombosis, Emphysema, Fibromyalgia, Fractures, GERD, HTN, Hypercholesterolemia, Hypothyroidism, Migraine, Parkinson's Disease, Pneumonia, Pulmonary Embolism, Rheumatoid Arthritis, Sleep Apnea Denies: HIV, Chronic Kidney Disease - Surgical History Surgical History: Appendectomy, Cholecystectomy, Endoscopy, Tonsillectomy - Family History Family History: States: Unknown Family Hx, Diabetes - Living Arrangements Living Arrangements: With Family - Social History Alcohol: None - Home Medications Home Medications: Ambulatory Orders Medication Instructions Recorded Aspirin [Ecotrin] 81 mg PO DAILY 03/05/17 clonazePAM [Klonopin] 0.5 mg PO DAILY PRN 03/05/17 ARIPiprazole [Abilify] 2 mg PO HS 05/11/17 Hydrocortisone [Cortef] 10 mg PO HS 05/11/17 Omeprazole 20 mg PO DAILY 05/11/17 Riociguat [Adempas] 2 mg PO TID 11/17/17 Ferrous Sulfate [Feosol] 325 mg PO DAILY tab 11/22/17 Atorvastatin [Lipitor] 20 mg PO DAILY 12/18/17 Benztropine [Cogentin] 1 mg PO Q12 12/18/17 Bortezomib [Velcade] 3.5 mg IV TUTH 12/18/17 Escitalopram [Lexapro] 10 mg PO DAILY 12/18/17 Albuterol/Ipratropium [Duoneb 3 3 ml INH RQ6 PRN neb 12/22/17 mg/0.5 mg (3 ml) UD] metFORMIN [glucOPHAGE] 500 mg PO BID 30 Days #60 tab 12/22/17 Calcitriol [Rocaltrol] 0.5 mcg PO Q12 01/25/18 Cholecalciferol [Vitamin D 1000 IU] 1,000 unit PO DAILY 01/25/18 Insulin Lispro [humALOG] 5 unit SC TID 01/25/18 busPIRone [Buspar] 15 mg PO Q12 01/25/18 Gabapentin [Neurontin] 100 mg PO TID 30 Days #90 capsule 02/03/18 Insulin Glargine, Recombina 20 unit SC HS 03/11/18 [Lantus] Calcium Carbonate [Calcium] 1 tab PO BID 03/23/18 DULoxetine [Cymbalta] 60 mg PO DAILY 03/23/18 Levothyroxine [Synthroid] 100 mcg PO DAILY@0630 tab 04/06/18 Torsemide [Demadex] 10 mg PO DAILY 30 Days #30 tab 04/06/18 aMILoride [aMILoride 5 mg Tab] 5 mg PO DAILY tab 04/06/18 Calcium/Chloride/Magnesium 64 mg PO BID ect 04/13/18 [Slow-Mag] Magnesium Oxide 400 mg PO DAILY 30 Days #30 tablet 04/13/18 Cephalexin [cephalexin] 500 mg PO QID #28 cap 07/01/18 Enalapril Maleate [Vasotec] 5 mg PO DAILY 07/01/18 Fluconazole [Diflucan] 100 mg PO DAILY 07/01/18 Montelukast [Singulair] 10 mg PO DAILY 07/01/18 Tiotropium [place] Inhaler 2 puff INH DAILY 07/01/18 [Spiriva Inhalation Handihaler Device] Torsemide [Demadex] 10 mg PO DAILY 07/01/18 - Allergies Allergies/Adverse Reactions: Allergies Allergy/AdvReac Type Severity Reaction Status Date / Time codeine AdvReac syncope, Verified 07/01/18 13:54 diaphoresis Review of Systems Constitutional: Negative for: Fever, Chills Cardiovascular: Negative for: Chest Pain, Palpitations Respiratory: Positive for: Cough Gastrointestinal: Positive for: Nausea, Abdominal Pain, Diarrhea. Negative for: Vomiting, Hematemesis Genitourinary Female: Negative for: Dysuria, Hematuria Musculoskeletal: Positive for: Back Pain Skin: Negative for: Rash, Lesions Neurological: Negative for: Headache Physical Exam - Reviewed Nursing Documentation Reviewed: Yes Vital Signs Reviewed: Yes - Physical Exam Appears: Positive for: Well, No Acute Distress Head Exam: Positive for: ATRAUMATIC, NORMAL INSPECTION Skin: Positive for: Normal Color, Warm, Dry Eye Exam: Positive for: Normal appearance, EOMI, PERRL Cardiovascular/Chest: Positive for: Regular Rate, Rhythm Respiratory: Positive for: Normal Breath Sounds Gastrointestinal/Abdominal: Positive for: Bowel Sounds, Soft, Tenderness (BUQ), Other (Obese). Negative for: Guarding, Rebound Back: Positive for: Normal Inspection Extremity: Positive for: Normal ROM Neurological/Psych: Positive for: Awake, Alert, Oriented - Laboratory Results Result Diagrams: 07/01/18 15:05 07/01/18 14:45 - ECG O2 Sat by Pulse Oximetry: 99 Medical Decision Making Medical Decision Makin yo female with nausea, abdominal pain, diarrhea and SOB. - labs - EKG - CT abd/pelvis - Zofran - Albuterol/atrovent nebs Accession No. : [id number] Patient Name / ID : ИВАН COTTRELL / [id number] Exam Date : 07/01/2018 15:07:34 ( Approved ) Study Comment : Sex / Age : F / 72Y Creator : deepika marr Dictator : Ivan Kaur MD Compound Filler : Sales Floor Manager : Ivan Kaur MD Approver2 : Report Date : 07/01/2018 15:44:03 My Comment : Date of service: 07/01/2018 HISTORY: Back pain COMPARISON: 05/28/2018. TECHNIQUE: Chest PA and lateral views FINDINGS: LUNGS: No active pulmonary disease. PLEURA: No significant pleural effusion identified. No pneumothorax apparent. CARDIOVASCULAR: Calcified nonaneurysmal abdominal aorta. No radiographic findings to suggest acute or significant cardiovascular disease. OSSEOUS STRUCTURES: No significant abnormalities. VISUALIZED UPPER ABDOMEN: Normal. OTHER FINDINGS: None. IMPRESSION: No active disease. No significant interval change compared to the prior examination(s). Accession No. : [id number] Patient Name / ID : ИВАН COTTRELL / [id number] Exam Date : 07/01/2018 16:26:02 ( Approved ) Study Comment : Sex / Age : F / 72Y Creator : Ivan Kaur MD Dictator : Ivan Kaur MD Compound Filler : Sales Floor Manager : Ivan Kaur MD Approver2 : Report Date : 07/01/2018 17:15:49 My Comment : Date of service: 07/01/2018 PROCEDURE: CT Abdomen and Pelvis without intravenous contrast HISTORY: Unspecified abdominal pain. COMPARISON: 01/25/2018. CT abdomen and pelvis. TECHNIQUE: Unenhanced. Neither IV nor oral contrast administered Radiation dose: Total exam DLP = 766.54 mGy-cm. This CT exam was performed using one or more of the following dose reduction techniques: Automated exposure control, adjustment of the mA and/or kV according to patient size, and/or use of iterative reconstruction technique. FINDINGS: LOWER THORAX: Small hiatal hernia. Dilatation of the distal esophagus. Similar findings identified on prior CT of thorax 03/28/2018. LIVER: Unremarkable. No gross lesion or ductal dilatation. GALLBLADDER AND BILE DUCTS: Unremarkable. PANCREAS: Unremarkable. No gross lesion or ductal dilatation. SPLEEN: Unremarkable. ADRENALS: Unremarkable. No mass. KIDNEYS AND URETERS: Unremarkable. No hydronephrosis. No solid mass. VASCULATURE: Atherosclerotic calcification and mural plaque present. Findings are seen throughout the aorta No aortic aneurysm. IVC filter identified. BOWEL: Mildly dilated proximal small bowel without mechanical obstructing lesion. APPENDIX: Unremarkable. Normal appendix. PERITONEUM: Unremarkable. No free fluid. No free air. LYMPH NODES: Unremarkable. No enlarged lymph nodes. BLADDER: Unremarkable. REPRODUCTIVE: Unremarkable. BONES: No acute fracture. Stable compression deformity T12 vertebral body. Additional degenerative changes lower lumbar spine with vacuum disc phenomenon and disc space narrowing noted. OTHER FINDINGS: Midline periumbilical hernias (2). These contain fat. There is a tiny punctate focus of air inferior to the actual hernias within adjacent soft tissue collection/inflammatory change. There are inflammatory changes extending from the rent in the abdominal musculature to the skin surface. Similar findings identified on the prior CT scan of the abdomen and pelvis performed January 25, 2018. IMPRESSION: 1. Progressive inflammatory changes at and inferior to the periumbilical hernias. Small punctate focus of air noted. This suggests an evolving and acute inflammatory process. 2. Mildly dilated proximal small bowel without evidence of mechanical obstructing lesion. 3. Additional benign and/or incidental findings described above. 18:00 CT findings discussed with Dr. Nicolas, no surgical intervention needed at this time. Disposition - Clinical Impression Clinical Impression: UTI (urinary tract infection) - Disposition Referrals: David Neumann MD [Family Provider] - Disposition: Routine/Home Disposition Time: 18:46 Condition: IMPROVED Prescriptions: Cephalexin [cephalexin] 500 mg PO QID #28 cap Instructions: Urinary Tract Infections in Adults Forms: [facility] (Serbian)
[2018-07-01 15:12] LABS: BASO % 0.1 % (0.0-2.0); EOS % 0.8 % (0.0-4.0); HEMOGLOBIN 8.8 g/dL (12.0-16.0); LYMPH # 0.6 K/uL (1.0-4.3); LYMPH % 12.1 % (20.0-40.0); MEAN CELL VOLUME 91.7 fl (81.0-99.0); MEAN CORPUSCULAR HEMOGLOBIN 29.7 pg (27.0-31.0); MEAN CORPUSCULAR HGB CONC 32.3 g/dL (33.0-37.0); MEAN PLATELET VOLUME 8.6 fl (7.2-11.7); MONO # 0.6 K/uL (0.0-0.8); MONO % 11.5 % (0.0-10.0); NEUT # 3.6 K/uL (1.8-7.0); NEUT % 75.5 % (50.0-75.0); NRBC % 0.1 % (0.0-0.0); RBC 2.97 Mil/uL (3.80-5.20); RED CELL DISTRIBUTION WIDTH 17.6 % (11.5-14.5); WHITE BLOOD COUNT 4.8 K/uL (4.8-10.8)
[2018-07-01 15:18] LABS: ALB/GLOB RATIO 0.9 (1.0-2.1); ALBUMIN 3.5 g/dL (3.5-5.0); CALCIUM 10.1 mg/dL (8.4-10.2)
[2018-07-01 15:20] LABS: INR 1.1; PROTHROMBIN TIME 12.9 Seconds (9.8-13.1)
[2018-07-01 15:23] LABS: PARTIAL THROMBOPLASTIN TIME 35.7 Seconds (25.6-37.1)
--- NOTE | 2018-07-01 16:09 | RAD ---
Date of service: 07/01/2018 HISTORY: Back pain COMPARISON: 05/28/2018. TECHNIQUE: Chest PA and lateral views FINDINGS: LUNGS: No active pulmonary disease. PLEURA: No significant pleural effusion identified. No pneumothorax apparent. CARDIOVASCULAR: Calcified nonaneurysmal abdominal aorta. No radiographic findings to suggest acute or significant cardiovascular disease. OSSEOUS STRUCTURES: No significant abnormalities. VISUALIZED UPPER ABDOMEN: Normal. OTHER FINDINGS: None. IMPRESSION: No active disease. No significant interval change compared to the prior examination(s).
[2018-07-01 16:50] VITALS: BP 112/50; PULSE 87; RESP 19
[2018-07-01 16:55] LABS: SQUAMOUS EPITHIAL 2 /hpf (0-5); URINE AMORPHOUS SEDIMENT RARE /ul (<OCC); URINE BACTERIA RARE (<OCC); URINE BILIRUBIN NEGATIVE (NEGATIVE); URINE BLOOD MODERATE (NEGATIVE); URINE CLARITY CLOUDY (Clear); URINE COLOR YELLOW (YELLOW); URINE GLUCOSE (UA) NEG (NEGATIVE); URINE LEUKOCYTE ESTERASE LARGE Leu/uL (Negative); URINE PROTEIN 30 mg/dL (NEGATIVE); URINE UROBILINOGEN 0.2-1.0 mg/dL (0.2-1.0)
--- NOTE | 2018-07-01 17:19 | CT ---
Date of service: 07/01/2018 PROCEDURE: CT Abdomen and Pelvis without intravenous contrast HISTORY: Unspecified abdominal pain. COMPARISON: 01/25/2018. CT abdomen and pelvis. TECHNIQUE: Unenhanced. Neither IV nor oral contrast administered Radiation dose: Total exam DLP = 766.54 mGy-cm. This CT exam was performed using one or more of the following dose reduction techniques: Automated exposure control, adjustment of the mA and/or kV according to patient size, and/or use of iterative reconstruction technique. FINDINGS: LOWER THORAX: Small hiatal hernia. Dilatation of the distal esophagus. Similar findings identified on prior CT of thorax 03/28/2018. LIVER: Unremarkable. No gross lesion or ductal dilatation. GALLBLADDER AND BILE DUCTS: Unremarkable. PANCREAS: Unremarkable. No gross lesion or ductal dilatation. SPLEEN: Unremarkable. ADRENALS: Unremarkable. No mass. KIDNEYS AND URETERS: Unremarkable. No hydronephrosis. No solid mass. VASCULATURE: Atherosclerotic calcification and mural plaque present. Findings are seen throughout the aorta No aortic aneurysm. IVC filter identified. BOWEL: Mildly dilated proximal small bowel without mechanical obstructing lesion. APPENDIX: Unremarkable. Normal appendix. PERITONEUM: Unremarkable. No free fluid. No free air. LYMPH NODES: Unremarkable. No enlarged lymph nodes. BLADDER: Unremarkable. REPRODUCTIVE: Unremarkable. BONES: No acute fracture. Stable compression deformity T12 vertebral body. Additional degenerative changes lower lumbar spine with vacuum disc phenomenon and disc space narrowing noted. OTHER FINDINGS: Midline periumbilical hernias (2). These contain fat. There is a tiny punctate focus of air inferior to the actual hernias within adjacent soft tissue collection/inflammatory change. There are inflammatory changes extending from the rent in the abdominal musculature to the skin surface. Similar findings identified on the prior CT scan of the abdomen and pelvis performed January 25, 2018. IMPRESSION: 1. Progressive inflammatory changes at and inferior to the periumbilical hernias. Small punctate focus of air noted. This suggests an evolving and acute inflammatory process. 2. Mildly dilated proximal small bowel without evidence of mechanical obstructing lesion. 3. Additional benign and/or incidental findings described above.
[2018-07-01] MEDS ORDERED: cefTRIAXone (Rocephin) 1 gm Inj ONE (17:23)
[2018-07-01 18:15] VITALS: O2SAT 99
[2018-07-01] MEDS ORDERED: Albuterol-Ipratrop 3 mg / 0.5 (3 ml) UD INH STA (18:17)
--- NOTE | 2018-07-01 18:17 | CARD ---
APPROVED REPORT Date of service: 07/01/2018 EKG Measurement Heart [id number] <Conclusion> Normal sinus rhythm Possible Left atrial enlargement Low voltage QRS Nonspecific ST and T wave abnormality Abnormal ECG
[2018-07-01] MEDS ORDERED: Albuterol-Ipratrop 3 mg / 0.5 (3 ml) UD ONE (18:21)
== END 2018-07-01 19:41 | disposition home or self-care (01) ==
LOC: H.ER 13:47
DX: N39.0 Urinary tract infection, site not specified (principal); J44.9 Chronic obstructive pulmonary disease, unspecified; E03.9 Hypothyroidism, unspecified; E11.9 Type 2 diabetes mellitus without complications; E78.00 Pure hypercholesterolemia, unspecified; I11.0 Hypertensive heart disease with heart failure; I25.10 Atherosclerotic heart disease of native coronary artery without angina pectoris; Z79.4 Long term (current) use of insulin; Z86.711 Personal history of pulmonary embolism; Z88.5 Allergy status to narcotic agent; M79.7 Fibromyalgia
CPT/HCPCS: 71046; 74176; 80053; 81003; 83690; 85025; 85610; 85730; 87040; 87086; 87181; 93005; 94640; 96374; 96375; 99284; J0696; J2405

== ENCOUNTER 2018-07-10 12:51 | Inpatient (IN) | payer MEDICARE, OTHER ==
[2018-07-10 12:51] VITALS: BMI 35.9
[2018-07-10] MEDS ORDERED: Sodium Chloride 0.9% 1,000 ML IV STA (13:06)
--- NOTE | 2018-07-10 13:28 | ED PDOC ---
HPI: Trauma/Fall - HPI Time Seen by Provider: 07/10/18 12:55 Chief Complaint (Nursing): Trauma Chief Complaint (Provider): Trauma History Per: Patient, EMS History/Exam Limitations: no limitations Onset/Duration Of Symptoms: Hrs Additional Complaint(s): 72 y/o female with a PMHx of HTN and DM brought in by EMS for evaluation of a syncopal episode just prior to arrival. Patient feel and hit the right side of her head and injuring her left lower extremity. Unclear duration of loss of consciousness. Patient denies any precedent dizziness, headache, chest pain and palpitations. PMD: David Neumann. Past Medical History Reviewed: Historical Data, Nursing Documentation, Vital Signs Vital Signs: Last Vital Signs Temp 97.7 F 07/10/18 12:54 Pulse 76 07/10/18 12:54 Resp 18 07/10/18 12:54 BP 126/54 L 07/10/18 12:54 Pulse Ox 96 07/10/18 12:54 Primary Care Provider: David Neumann - Medical History PMH: Anemia, Anxiety, Arthritis, Asthma, CAD, CHF, COPD, Depression, Diabetes, D eep Vein Thrombosis, Emphysema, Fibromyalgia, Fractures, GERD, HTN, Hypercholesterolemia, Hypothyroidism, Migraine, Parkinson's Disease, Pneumonia, Pulmonary Embolism, Rheumatoid Arthritis, Sleep Apnea Denies: HIV, Chronic Kidney Disease - Surgical History Surgical History: Appendectomy, Cholecystectomy, Endoscopy, Tonsillectomy - Family History Family History: States: Unknown Family Hx, Diabetes - Home Medications Home Medications: Ambulatory Orders Medication Instructions Recorded Aspirin [Ecotrin] 81 mg PO DAILY 03/05/17 clonazePAM [Klonopin] 0.5 mg PO DAILY PRN 03/05/17 ARIPiprazole [Abilify] 2 mg PO HS 05/11/17 Hydrocortisone [Cortef] 10 mg PO HS 05/11/17 Omeprazole 20 mg PO DAILY 05/11/17 Riociguat [Adempas] 2 mg PO TID 11/17/17 Ferrous Sulfate [Feosol] 325 mg PO DAILY tab 11/22/17 Atorvastatin [Lipitor] 20 mg PO DAILY 12/18/17 Benztropine [Cogentin] 1 mg PO Q12 12/18/17 Bortezomib [Velcade] 3.5 mg IV TUTH 12/18/17 Escitalopram [Lexapro] 10 mg PO DAILY 12/18/17 Albuterol/Ipratropium [Duoneb 3 3 ml INH RQ6 PRN neb 12/22/17 mg/0.5 mg (3 ml) UD] metFORMIN [glucOPHAGE] 500 mg PO BID 30 Days #60 tab 12/22/17 Calcitriol [Rocaltrol] 0.5 mcg PO Q12 01/25/18 Cholecalciferol [Vitamin D 1000 IU] 1,000 unit PO DAILY 01/25/18 Insulin Lispro [humALOG] 5 unit SC TID 01/25/18 busPIRone [Buspar] 15 mg PO Q12 01/25/18 Gabapentin [Neurontin] 100 mg PO TID 30 Days #90 capsule 02/03/18 Insulin Glargine, Recombina 20 unit SC HS 03/11/18 [Lantus] Calcium Carbonate [Calcium] 1 tab PO BID 03/23/18 DULoxetine [Cymbalta] 60 mg PO DAILY 03/23/18 Levothyroxine [Synthroid] 100 mcg PO DAILY@0630 tab 04/06/18 Torsemide [Demadex] 10 mg PO DAILY 30 Days #30 tab 04/06/18 aMILoride [aMILoride 5 mg Tab] 5 mg PO DAILY tab 04/06/18 Calcium/Chloride/Magnesium 64 mg PO BID ect 04/13/18 [Slow-Mag] Magnesium Oxide 400 mg PO DAILY 30 Days #30 tablet 04/13/18 Cephalexin [cephalexin] 500 mg PO QID #28 cap 07/01/18 Enalapril Maleate [Vasotec] 5 mg PO DAILY 07/01/18 Fluconazole [Diflucan] 100 mg PO DAILY 07/01/18 Montelukast [Singulair] 10 mg PO DAILY 07/01/18 Tiotropium [place] Inhaler 2 puff INH DAILY 07/01/18 [Spiriva Inhalation Handihaler Device] Torsemide [Demadex] 10 mg PO DAILY 07/01/18 - Allergies Allergies/Adverse Reactions: Allergies Allergy/AdvReac Type Severity Reaction Status Date / Time codeine AdvReac syncope, Verified 07/10/18 12:55 diaphoresis Review of Systems ROS Statement: Except As Marked, All Systems Reviewed And Found Negative Cardiovascular: Negative for: Chest Pain, Palpitations Musculoskeletal: Positive for: Other (head injury) Neurological: Positive for: Other (Syncope, loss of consciousness). Negative for: Headache, Dizziness Physical Exam - Reviewed Nursing Documentation Reviewed: Yes Vital Signs Reviewed: Yes - Physical Exam Appears: Positive for: No Acute Distress Head Exam: Negative for: NORMAL INSPECTION (Right periorbital ecchymosis. No deformity) Skin: Positive for: Normal Color, Warm, Dry Eye Exam: Positive for: Normal appearance, EOMI, PERRL Neck: Positive for: Normal, Painless ROM Cardiovascular/Chest: Positive for: Regular Rate, Rhythm. Negative for: Murmur Respiratory: Positive for: Normal Breath Sounds. Negative for: Respiratory Distress Gastrointestinal/Abdominal: Positive for: Normal Exam, Soft. Negative for: Tenderness Extremity: Positive for: Other (eecchymosis to the distal aspect of the left tibial region. No palpable fracture. ). Negative for: Tenderness (at the hip), Deformity Neurological/Psych: Positive for: Awake, Alert, Oriented (x3). Negative for: Motor/Sensory Deficits - Laboratory Results Result Diagrams: 07/10/18 13:19 07/10/18 13:19 - ECG O2 Sat by Pulse Oximetry: 96 (RA) Pulse Ox Interpretation: Normal Medical Decision Making Medical Decision Making: Time: 1309 Impression: Syncopal episode Plan: -- CT Head w/o Contrast -- EKG -- CMP -- CBC with Differentials -- CXR Portable -- Glucose, POC -- Sodium Chloride 0.9% IV 100 mls/hr Time: 1352 CT HEAD RESULTS Date of service: 07/10/2018 PROCEDURE: CT HEAD WITHOUT CONTRAST. HISTORY: r/o bleed COMPARISON: Comparison is made with 03/28/2018 TECHNIQUE: Axial computed tomography images were obtained through the head/brain without intravenous contrast. Radiation dose: Total exam DLP = 776.39 mGy-cm. This CT exam was performed using one or more of the following dose reduction techniques: Automated exposure control, adjustment of the mA and/or kV according to patient size, and/or use of iterative reconstruction technique. FINDINGS: Somewhat limited study due to streak artifact from metallic structure posterior to the head at the right occipital region. HEMORRHAGE: No intracranial hemorrhage. BRAIN: No mass effect or edema. No atrophy or chronic microvascular ischemic changes. VENTRICLES: Unremarkable. No hydrocephalus. CALVARIUM: Unremarkable. PARANASAL SINUSES: Unremarkable as visualized. No significant inflammatory changes. MASTOID AIR CELLS: Unremarkable as visualized. No inflammatory changes. OTHER FINDINGS: None. IMPRESSION: Suboptimal study due to streak artifact from metallic structure posterior to the right occipital region. No evidence of acute intracranial hemorrhage mass effect or midline shift. Scribe Attestation: Documented by Alli Damian, acting as a scribe Emma Cruz MD. Provider Scribe Attestation: All medical record entries made by the Scribe were at my direction and perso frances dictated by me. I have reviewed the chart and agree that the record accurately reflects my personal performance of the history, physical exam, medical decision making, and the department course for this patient. I have also personally directed, reviewed, and agree with the discharge instructions and disposition. Disposition - Clinical Impression Clinical Impression: Syncope, Hypocalcemia - Patient ED Disposition Is Patient to be Admitted: Yes - Disposition Disposition Time: 14:21 Condition: FAIR Forms: [employer] Connect (Hebrew) - Pt Status Changed To: Hospital Disposition Of: Observation - POA Present On Arrival: None
[2018-07-10 13:45] LABS: ALBUMIN 3.7 g/dL (3.5-5.0); CALCIUM 6.7 mg/dL (8.4-10.2)
[2018-07-10 13:55] LABS: BASO % 0.1 % (0.0-2.0); EOS % 0.4 % (0.0-4.0); HEMOGLOBIN 9.2 g/dL (12.0-16.0); LYMPH # 0.8 K/uL (1.0-4.3); LYMPH % 15.2 % (20.0-40.0); MEAN CELL VOLUME 89.9 fl (81.0-99.0); MEAN CORPUSCULAR HEMOGLOBIN 28.6 pg (27.0-31.0); MEAN CORPUSCULAR HGB CONC 31.8 g/dL (33.0-37.0); MEAN PLATELET VOLUME 10.4 fl (7.2-11.7); MONO # 1.2 K/uL (0.0-0.8); MONO % 21.7 % (0.0-10.0); NEUT # 3.4 K/uL (1.8-7.0); NEUT % 62.6 % (50.0-75.0); NRBC % 0.4 % (0.0-0.0); PLATELET COUNT 133 K/uL (130-400); RBC 3.23 Mil/uL (3.80-5.20); RED CELL DISTRIBUTION WIDTH 17.8 % (11.5-14.5); WHITE BLOOD COUNT 5.4 K/uL (4.8-10.8)
--- NOTE | 2018-07-10 13:56 | CT ---
Date of service: 07/10/2018 PROCEDURE: CT HEAD WITHOUT CONTRAST. HISTORY: r/o bleed COMPARISON: Comparison is made with 03/28/2018 TECHNIQUE: Axial computed tomography images were obtained through the head/brain without intravenous contrast. Radiation dose: Total exam DLP = 776.39 mGy-cm. This CT exam was performed using one or more of the following dose reduction techniques: Automated exposure control, adjustment of the mA and/or kV according to patient size, and/or use of iterative reconstruction technique. FINDINGS: Somewhat limited study due to streak artifact from metallic structure posterior to the head at the right occipital region. HEMORRHAGE: No intracranial hemorrhage. BRAIN: No mass effect or edema. No atrophy or chronic microvascular ischemic changes. VENTRICLES: Unremarkable. No hydrocephalus. CALVARIUM: Unremarkable. PARANASAL SINUSES: Unremarkable as visualized. No significant inflammatory changes. MASTOID AIR CELLS: Unremarkable as visualized. No inflammatory changes. OTHER FINDINGS: None. IMPRESSION: Suboptimal study due to streak artifact from metallic structure posterior to the right occipital region. No evidence of acute intracranial hemorrhage mass effect or midline shift.
[2018-07-10] MEDS ORDERED: Calcium Chloride 1000 mg/10 ml Syringe IVPB ONE (14:06)
[2018-07-10 15:15] LABS: ANISOCYTOSIS SLIGHT; EOSINOPHIL 1 % (0-7); HYPOCHROMIC SLIGHT; LARGE PLATELETS PRESENT; LYMPHOCYTE 14 % (20-50); METAMYELOCYTE 1 % (0-0); MONOCYTE 20 % (0-10); MYELOCYTE 2 % (0-0); NEUTROPHIL 62 % (42-75); OVALOCYTES SLIGHT; PLATELET ESTIMATE NORMAL (NORMAL); TOTAL CELLS COUNTED 100
[2018-07-10] MEDS ORDERED: Albuterol-Ipratrop 3 mg / 0.5 (3 ml) UD INH PRN (15:16)
--- NOTE | 2018-07-10 16:16 | CP.PCM.HP ---
<BoydCarmen - Last Filed: 07/10/18 17:07> History of Present Illness - History of Present Illness History of Present Illness: 72 yr old F brought into ED via EMS s/p unwitnessed syncopal episode at home. PMHx is significant for Multiple Myeloma, IDDM, HTN, COPD, pulmonary HTN, depression, Barrets Esophagus, hx PE with IVC filter in place, ambulates with walker and on continuos O2 (2L) via nasal cannula, uses adult diapers for urinary incontinence. Patient states she was walking through her living room this morning and suddenly felt like she was going to faint and "blacked out". Re ports she woke up on the floor, there was no furniture near her, denies confusion/fecal or urinary incontinence or tongue biting. She was able to sit up but could not get up from the floor. She was able to crawl to her phone, spoke with her daughter who went over and called the ambulance. Denies chest pain, SOB, dizziness or visual changes before or after syncopal episode. Patient was recently treated for UTI with 7 day course of Keflex which she completed on 07/08/18. PMD: David Velasquez (last visit 05/17/18) Psych: Chase Miller APN Law Tutor: Dr Cisneros Heme/Oncology: Dr Vilchis Past Med Hx: Multiple Myeloma, T2DM, HTN, COPD, Hypothyroidsm, GERD, hx of PE s/p IVC filter 2014. Past Surg Hx: Ankle fracture repair, Cholecystectomy, Breast cyst surgery x2, tonsillectomy. Family Hx: Father had Lung CA and HTN, Mother of a heart attack. Social Hx: Denies Tobacco/ETOH/Rec Drug use. Next of Kin: Daughter Megha [phone] Code status: Full code ED course: BP 126/54 mmHg, Pulse 76, Resp rate: 18, 96% on room air, 97.7F -EKG: normal sinus rhythm at 96bpm -CT head: no acute intracranial hemorrhage -CXR: no acute disease -CBC: H/H 9.2/29.1; MCV 89.9 (at baseline) -CMP: K+ 3.4, Ca 2+ 6.7, BUN 30/Cr 1.4, AST 203, ALT 92, alk phos 139 -ED treatment: 1L NS IV once, Calcium gluconate 4.65 mEq in NS once Present on Admission - Present on Admission Any Indicators Present on Admission: No History of DVT/PE: Yes History of Uncontrolled Diabetes: No Urinary Catheter: No Decubitus Ulcer Present: No History Surgical Site Infection Following: None Review of Systems - Constitutional Constitutional: absent: Anorexia - EENT Eyes: absent: Blurred Vision Ears: absent: Dizziness Nose/Mouth/Throat: absent: Sore Throat, Neck Pain - Cardiovascular Cardiovascular: absent: Chest Pain, Dyspnea - Respiratory Respiratory: absent: Hemoptysis - Gastrointestinal Gastrointestinal: absent: Abdominal Pain - Genitourinary Genitourinary: Urinary Incontinence. absent: Dysuria - Musculoskeletal Musculoskeletal: Arthralgias, Back Pain - Neurological Neurological: Syncope. absent: Confusion - Psychiatric Psychiatric: Change in Appetite (chronic decreased appetite) - Endocrine Endocrine: absent: Polyphagia, Polyuria - Hematologic/Lymphatic Hematologic: absent: Lymphadenopathy Past Patient History - Infectious Disease Hx of Infectious Diseases: None - Tetanus Immunizations Tetanus Immunization: Unknown - Past Medical History & Family History Past Medical History?: Yes - Past Social History Smoking Status: Never Smoked - CARDIAC Hx Congestive Heart Failure: Yes Hx Hypercholesterolemia: Yes Hx Hypertension: Yes - PULMONARY Hx Asthma: Yes Hx Chronic Obstructive Pulmonary Disease (COPD): Yes Hx Emphysema: Yes Hx Pneumonia: Yes Hx Pulmonary Embolism: Yes Hx Sleep Apnea: Yes - NEUROLOGICAL Hx Migraine: Yes Hx Parkinson's Disease: Yes - HEENT Hx HEENT Problems: No - RENAL Hx Chronic Kidney Disease: No - ENDOCRINE/METABOLIC Hx Hypothyroidism: Yes - HEMATOLOGICAL/ONCOLOGICAL Hx Anemia: Yes Hx Human Immunodeficiency Virus (HIV): No - INTEGUMENTARY Hx Dermatological Problems: No - MUSCULOSKELETAL/RHEUMATOLOGICAL Hx Arthritis: Yes Hx Fractures: Yes Hx Rheumatoid Arthritis: Yes - GASTROINTESTINAL Hx Gastrointestinal Disorders: Yes Hx Gastroesophageal Reflux: Yes - GENITOURINARY/GYNECOLOGICAL Hx Genitourinary Disorders: Yes Hx Incontinence: Yes - PSYCHIATRIC Hx Anxiety: Yes Hx Depression: Yes - SURGICAL HISTORY Hx Appendectomy: Yes Hx Cholecystectomy: Yes Hx Tonsillectomy: Yes - ANESTHESIA Hx Anesthesia: Yes Hx Anesthesia Reactions: Yes (Resp. Distress) Hx Malignant Hyperthermia: No Meds Allergies/Adverse Reactions: Allergies Allergy/AdvReac Type Severity Reaction Status Date / Time codeine AdvReac syncope, Verified 07/10/18 12:55 diaphoresis Physical Exam - Constitutional Appears: No Acute Distress - Head Exam Head Exam: absent: NORMAL INSPECTION (right periorbital ecchymosis, minimal forehead bruising) - Eye Exam Eye Exam: EOMI, PERRL - ENT Exam ENT Exam: Mucous Membranes Moist (small abrasion left side of tongue, ecchymosis on tip of tongue ) - Neck Exam Neck exam: Positive for: Full Rom - Respiratory Exam Respiratory Exam: Clear to Auscultation Bilateral, NORMAL BREATHING PATTERN - Cardiovascular Exam Cardiovascular Exam: REGULAR RHYTHM, +S1, +S2 - GI/Abdominal Exam GI & Abdominal Exam: Normal Bowel Sounds, Soft. absent: Tenderness - Extremities Exam Extremities exam: Negative for: calf tenderness, normal inspection (superficial left pretibial hematoma 4x4 cm) - Back Exam Back exam: absent: NORMAL INSPECTION Additional comments: ecchymosis of posterior left shoulder - Neurological Exam Neurological exam: Alert, CN II-XII Intact, Oriented x3 - Psychiatric Exam Psychiatric exam: Normal Affect, Normal Mood - Skin Skin Exam: Dry, Warm Results - Vital Signs Recent Vital Signs: Last Vital Signs Temp 97.7 F 07/10/18 12:54 Pulse 76 07/10/18 12:54 Resp 18 07/10/18 12:54 BP 126/54 L 07/10/18 12:54 Pulse Ox 96 07/10/18 14:22 - Labs Result Diagrams: 07/10/18 13:19 07/10/18 13:19 Labs: Laboratory Results - last 24 hr 07/10/18 07/10/18 07/10/18 13:05 13:19 13:19 WBC 5.4 RBC 3.23 L Hgb 9.2 L Hct 29.1 L MCV 89.9 MCH 28.6 MCHC 31.8 L RDW 17.8 H Plt Count 133 MPV 10.4 Neut % (Auto) 62.6 Lymph % (Auto) 15.2 L Dooly % (Auto) 21.7 H Eos % (Auto) 0.4 Baso % (Auto) 0.1 Neut # (Auto) 3.4 Lymph # (Auto) 0.8 L Dooly # (Auto) 1.2 H Eos # (Auto) 0.0 Baso # (Auto) 0.0 Neutrophils % (Manual) 62 Lymphocytes % (Manual) 14 L Monocytes % (Manual) 20 H Eosinophils % (Manual) 1 Metamyelocytes % 1 H Myelocytes % 2 H Platelet Estimate Normal Large Platelets Present Hypochromasia (manual) Slight Anisocytosis (manual) Slight Ovalocytes Slight Sodium 132 Potassium 3.4 L Chloride 97 L Carbon Dioxide 23 Anion Gap 15 BUN 30 H Creatinine 1.4 H Est GFR ( Amer) 45 Est GFR (Non-Af Amer) 37 POC Glucose (mg/dL) 116 H Random Glucose 100 Calcium 6.7 L Phosphorus Total Bilirubin 0.5 AST 203 H D ALT 92 H D Alkaline Phosphatase 139 H D Total Protein 7.5 Albumin 3.7 Globulin 3.8 Albumin/Globulin Ratio 1.0 07/10/18 13:19 WBC RBC Hgb Hct MCV MCH MCHC RDW Plt Count MPV Neut % (Auto) Lymph % (Auto) Dooly % (Auto) Eos % (Auto) Baso % (Auto) Neut # (Auto) Lymph # (Auto) Dooly # (Auto) Eos # (Auto) Baso # (Auto) Neutrophils % (Manual) Lymphocytes % (Manual) Monocytes % (Manual) Eosinophils % (Manual) Metamyelocytes % Myelocytes % Platelet Estimate Large Platelets Hypochromasia (manual) Anisocytosis (manual) Ovalocytes Sodium Potassium Chloride Carbon Dioxide Anion Gap BUN Creatinine Est GFR ( Amer) Est GFR (Non-Af Amer) POC Glucose (mg/dL) Random Glucose Calcium Phosphorus 3.4 Total Bilirubin AST ALT Alkaline Phosphatase Total Protein Albumin Globulin Albumin/Globulin Ratio Assessment & Plan - Assessment and Plan (Free Text) Assessment: 72 yr old F admitted for evaluation s/p unwitnessed syncopal episode. PMHx is significant for Multiple Myeloma, IDDM, HTN, COPD, pulmonary HTN, depression, Barrets Esophagus, hx PE with IVC filter in place, intermittent electrolyte imbalances, ambulates with walker and on continuos O2 (2L) via nasal cannula, uses adult diapers for urinary incontinence. Plan: Syncope -acute, unwitnessed, r/o cardiac vs neuro etiology, likely vasovagal (decreased appetite and PO intake x 2-3 months) -EKG: normal sinus rhythm at 96bpm, CXR: no acute disease -CT head: no acute intracranial hemorrhage -CBC: H/H 9.2/29.1; MCV 89.9 (at baseline); CMP: K+ 3.4, Ca 2+ 6.7, BUN 30/Cr 1.4, AST 203, ALT 92, alk phos 139 -echo 08/25/17: LVEF 60-65% with normal LV size and wall thickness; Cardiac cath 10/20/16: normal coronaries, no stents placed -EEG 03/29/18: mild to moderate non-specific diffuse disturbance of cortical activity = diffuse wilson matter dysfunction -admit to tele, telemetry monitor -f/u carotid doppler Hypokalemia/Hypocalcemia -acute on chronic, recurrent -K+ 3.4, Ca+2 6.7 -ED tx: Calcium gluconate 4.65 mEq in NS once -NS with 20mEq K at 100 ml/hr x 2 -continue home medications (calcium carbonate -f/u BMP and Mag in AM Left shoulder pain s/p fall -acute -f/u left shoulder xray -tylenol PRN pain IDDM type 2 -chronic, controlled -03/12/18: HbA1c 6.6 -hold home medications (metformin, insulin glargine 20 units SC HS and insulin lispro 5 units SC TID) - medium dose Insulin coverage scale, hypoglycemia protocol - [place] NICOLES Multiple Myeloma/Anemia -chronic, stable -patient follows up regularly with heme/onc: Dr. Vilchis -continue PO Iron, home med, for anemia Hypertension -chronic, controlled -continue home medication Enalapril 5mg PO QD, Torsemide 10mg PO QD -Monitor BP COPD -chronic, stable -continuous O2 supplement via nasal cannula (2L) -uses continuously at home -Duoneb Q6 PRN SOB Hypothyroidism -chronic -TSH 5.35 on 03/28/18 -continue levothyroxine 100mcg PO QD -f/u repeat TSH Depression -chronic, controlled -continue home medications: abilify, buspar, cogentin, cymbalta GERD -chronic, controlled -Protonix 40 mg PO QD DVT Prophylaxis -Lovenox 40mg SC daily - Date & Time Date: 07/10/18 Time: 14:30 <Anette Rosenthal - Last Filed: 07/11/18 19:51> Results - Vital Signs Recent Vital Signs: Last Vital Signs Temp 97.9 F 07/11/18 19:43 Pulse 73 07/11/18 19:43 Resp 17 07/11/18 19:43 BP 97/62 L 07/11/18 19:43 Pulse Ox 99 07/11/18 19:43 - Labs Result Diagrams: 07/11/18 05:10 07/11/18 05:10 Labs: Laboratory Results - last 24 hr 07/10/18 07/10/18 07/11/18 19:50 21:20 05:10 WBC 4.5 L RBC 2.94 L Hgb 8.5 L Hct 26.1 L MCV 88.6 MCH 28.9 MCHC 32.6 L RDW 17.8 H Plt Count 115 L MPV 11.1 Neut % (Auto) 65.2 Lymph % (Auto) 13.2 L Dooly % (Auto) 20.4 H Eos % (Auto) 1.1 Baso % (Auto) 0.1 Neut # (Auto) 3.0 Lymph # (Auto) 0.6 L Dooly # (Auto) 0.9 H Eos # (Auto) 0.1 Baso # (Auto) 0.0 Sodium Potassium Chloride Carbon Dioxide Anion Gap BUN Creatinine Est GFR ( Amer) Est GFR (Non-Af Amer) POC Glucose (mg/dL) 99 Random Glucose Calcium Magnesium Total Bilirubin AST ALT Alkaline Phosphatase Troponin I 0.0230 Total Protein Albumin Globulin Albumin/Globulin Ratio TSH 3rd Generation 2.73 07/11/18 07/11/18 07/11/18 05:10 05:40 11:05 WBC RBC Hgb Hct MCV MCH MCHC RDW Plt Count MPV Neut % (Auto) Lymph % (Auto) Dooly % (Auto) Eos % (Auto) Baso % (Auto) Neut # (Auto) Lymph # (Auto) Dooly # (Auto) Eos # (Auto) Baso # (Auto) Sodium 132 Potassium 3.9 Chloride 98 Carbon Dioxide 25 Anion Gap 13 BUN 28 H Creatinine 1.2 Est GFR ( Amer) 54 Est GFR (Non-Af Amer) 44 POC Glucose (mg/dL) 107 107 Random Glucose 104 Calcium 6.5 L Magnesium 1.6 Total Bilirubin 0.5 AST 210 H ALT 90 H Alkaline Phosphatase 160 H Troponin I 0.0190 Total Protein 6.8 Albumin 3.4 L Globulin 3.4 Albumin/Globulin Ratio 1.0 TSH 3rd Generation 07/11/18 15:44 WBC RBC Hgb Hct MCV MCH MCHC RDW Plt Count MPV Neut % (Auto) Lymph % (Auto) Dooly % (Auto) Eos % (Auto) Baso % (Auto) Neut # (Auto) Lymph # (Auto) Dooly # (Auto) Eos # (Auto) Baso # (Auto) Sodium Potassium Chloride Carbon Dioxide Anion Gap BUN Creatinine Est GFR ( Amer) Est GFR (Non-Af Amer) POC Glucose (mg/dL) 120 H Random Glucose Calcium Magnesium Total Bilirubin AST ALT Alkaline Phosphatase Troponin I Total Protein Albumin Globulin Albumin/Globulin Ratio TSH 3rd Generation Attending/Attestation - Attestation I have personally seen and examined this patient.: Yes I have fully participated in the care of the patient.: Yes I have reviewed all pertinent clinical information: Yes Notes (Text): 07/11/18 19:51 Agree with findings and plan as above
[2018-07-10] MEDS ORDERED: RIOCIGUAT 2 MG PO SCH (17:00)
--- NOTE | 2018-07-10 17:14 | RAD ---
Date of service: 07/10/2018 PROCEDURE: Radiographs of the Left Shoulder HISTORY: Pain and ecchymosis left post shoulder s/p syncopal COMPARISON: No prior. TECHNIQUE: 3 views obtained. FINDINGS: BONES: Normal. No fracture. JOINTS: Minor degenerative osteoarthritis left acromioclavicular joint SOFT TISSUES: Tiny soft tissue calcification adjacent to the humeral head consistent with calcified tendinitis OTHER FINDINGS: None. IMPRESSION: No acute fractures. Minor degenerative osteoarthritis with findings that suggest calcified tendinitis
--- NOTE | 2018-07-10 17:20 | RAD ---
Date of service: 07/10/2018 HISTORY: Cough COMPARISON: No prior. TECHNIQUE: 1 view obtained. FINDINGS: LUNGS: Minor atelectasis right lower lung field PLEURA: No significant pleural effusion identified, no pneumothorax apparent. CARDIOVASCULAR: Mild aortic atherosclerotic calcification present. Normal cardiac size. No pulmonary vascular congestion. OSSEOUS STRUCTURES: No significant abnormalities. VISUALIZED UPPER ABDOMEN: Normal. OTHER FINDINGS: None. IMPRESSION: Minor atelectasis right lower lung field
[2018-07-10] MEDS: Insulin Regular 100 units/ml SC SCH ×2 (17:46→21:32)
[2018-07-10] MEDS: Potassium Chloride 20 mEq 100 ML IVPB SCH ×2 (18:58→20:34)
[2018-07-10] MEDS: Magnesium Chloride 64 mg ER Tab PO SCH (19:00)
[2018-07-10 20:23] LABS: TROPONIN I 0.023 ng/mL (0.00-0.120)
--- NOTE | 2018-07-10 21:54 | CARD ---
APPROVED REPORT Date of service: 07/10/2018 EKG Measurement Heart [id number] <Conclusion> Normal sinus rhythm Possible Left atrial enlargement ST & T wave abnormality, consider anterolateral ischemia Abnormal ECG
[2018-07-11 06:11] LABS: BASO % 0.1 % (0.0-2.0); EOS # 0.1 K/uL (0.0-0.7); EOS % 1.1 % (0.0-4.0); HEMOGLOBIN 8.5 g/dL (12.0-16.0); LYMPH # 0.6 K/uL (1.0-4.3); LYMPH % 13.2 % (20.0-40.0); MEAN CELL VOLUME 88.6 fl (81.0-99.0); MEAN CORPUSCULAR HEMOGLOBIN 28.9 pg (27.0-31.0); MEAN CORPUSCULAR HGB CONC 32.6 g/dL (33.0-37.0); MEAN PLATELET VOLUME 11.1 fl (7.2-11.7); MONO # 0.9 K/uL (0.0-0.8); MONO % 20.4 % (0.0-10.0); NEUT % 65.2 % (50.0-75.0); NRBC % 0.4 % (0.0-0.0); RBC 2.94 Mil/uL (3.80-5.20); RED CELL DISTRIBUTION WIDTH 17.8 % (11.5-14.5); WHITE BLOOD COUNT 4.5 K/uL (4.8-10.8)
[2018-07-11 06:25] LABS: ALBUMIN 3.4 g/dL (3.5-5.0); CALCIUM 6.5 mg/dL (8.4-10.2)
[2018-07-11 06:32] LABS: TROPONIN I 0.019 ng/mL (0.00-0.120)
[2018-07-11] MEDS: Insulin Regular 100 units/ml SC SCH ×4 (06:35→21:46)
[2018-07-11] MEDS: Levothyroxine 100 MCG TAB PO SCH (06:36)
[2018-07-11] MEDS: Magnesium Oxide 400 mg Tab UD PO SCH (11:36)
[2018-07-11] MEDS: Enoxaparin 40 mg Syringe SC SCH (11:36)
[2018-07-11] MEDS: Pantoprazole 40 mg EC Tab PO SCH (11:37)
[2018-07-11] MEDS: Cholecalciferol 1,000 INTLU TAB PO SCH (11:38)
[2018-07-11] MEDS: Tiotropium 18 mcg Cap For Inhalation INH SCH (12:29)
--- NOTE | 2018-07-11 14:26 | US ---
Date of service: 07/11/2018 PROCEDURE: Duplex ultrasound of the carotid and vertebral arteries. HISTORY: syncope COMPARISON: 08/30/2009. TECHNIQUE: Grayscale and duplex Doppler evaluation of the cervical carotid and vertebral arteries were performed. The common carotid, carotid bifurcations and cervical ICA and proximal ECA were evaluated. The vertebral arteries were evaluated for gross patency and direction. FINDINGS: RIGHT CAROTID ARTERIES: Common Carotid Artery: Maximal flow velocity of 68.0 cm/s. Carotid Bifurcation: Intimal thickening is present Internal Carotid Artery:Heterogeneous plaque formation. Maximal flow velocity of 87.7 cm/s. External Carotid Artery (proximal branches): Maximal flow velocity of 113.1 cm/s. ICA/CCA Ratio: 1.3 LEFT CAROTID ARTERIES: Common Carotid Artery: Maximal flow velocity of 46.5 cm/s. Carotid Bifurcation: Intimal thickening is present Internal Carotid Artery:Heterogeneous plaque formation. Maximal flow velocity of 82.5 cm/s. External Carotid Artery (proximal branches): Maximal flow velocity of 85.0 cm/s. ICA/CCA Ratio: 1.8 VERTEBRAL ARTERIES: Right Vertebral Artery: Patent. Antegrade flow. Left Vertebral Artery: Patent. Antegrade flow. OTHER FINDINGS: Atherosclerotic calcification present. IMPRESSION: No significant interval change compared to the prior examination(s). Right ICA degree of stenosis: Less than 50% Left ICA degree of stenosis: Less than 50% Reference Internal Carotid Artery (ICA) Peak Systolic Velocity (PSV) for above: 1. Less than 50% stenosis less than 125 cm/s peak systolic velocity 2. 50-69% stenosis 125-230cm/s peak systolic velocity 3. Greater than 70% but less than near occlusion greater than 230 cm/s peak systolic velocity
--- NOTE | 2018-07-11 14:40 | CP.PCM.PN ---
Subjective - Date & Time of Evaluation Date of Evaluation: 07/11/18 Time of Evaluation: 09:00 - Subjective Subjective: Patient seen and examined at bedside. In no acute distress. Reports felt a little "whoozy" during physical therapy evaluation today. Has decreased appetite, normal urine output. Objective - Vital Signs/Intake and Output Vital Signs (last 24 hours): Temp Pulse Resp BP Pulse Ox 98.2 F 75 18 109/71 98 07/11/18 11:58 07/11/18 11:58 07/11/18 11:58 07/11/18 11:58 07/11/18 11:58 - Medications Medications: Current Medications Acetaminophen (Tylenol 325mg Tab) 650 mg PO Q6 PRN PRN Reason: Pain, moderate (4-7) Albuterol/Ipratropium (Duoneb 3 Mg/0.5 Mg (3 Ml) Ud) 3 ml INH RQ6 PRN PRN Reason: Shortness of Breath Amiloride HCl (Amiloride 5 Mg Tab) 5 mg PO DAILY [facility] Last Admin: 07/11/18 11:40 Dose: 5 mg Aripiprazole (Abilify) 2 mg PO [facility] Last Admin: 07/10/18 21:31 Dose: 2 mg Aspirin (Ecotrin) 81 mg PO DAILY [facility] Last Admin: 07/11/18 11:40 Dose: 81 mg Atorvastatin Calcium (Lipitor) 20 mg PO [facility] Last Admin: 07/10/18 21:32 Dose: 20 mg Benztropine Mesylate (Cogentin) 1 mg PO Q12 [facility] Last Admin: 07/11/18 11:41 Dose: 1 mg Bortezomib (Velcade) 3.5 mg SC [facility] Buspirone HCl (Buspar) 15 mg PO Q12 [facility] Last Admin: 07/11/18 11:39 Dose: 15 mg Calcitriol (Rocaltrol) 0.5 mcg PO Q12 [facility] Last Admin: 07/11/18 11:41 Dose: 0.5 mcg Calcium Carbonate (Oscal) 500 mg PO BID [facility] Last Admin: 07/11/18 11:37 Dose: 500 mg Cholecalciferol (Vitamin D) 1,000 intlu PO DAILY [facility] Last Admin: 07/11/18 11:38 Dose: 1,000 intlu Clonazepam (Klonopin) 0.5 mg PO DAILY PRN PRN Reason: Anxiety Docusate Sodium (Colace) 100 mg PO BID PRN PRN Reason: Constipation Duloxetine HCl (Cymbalta) 60 mg PO DAILY [facility] Last Admin: 07/11/18 11:38 Dose: 60 mg Enalapril Maleate (Vasotec) 5 mg PO DAILY [facility] Last Admin: 07/11/18 11:40 Dose: 5 mg Enoxaparin Sodium (Lovenox) 40 mg SC DAILY [facility]; Protocol Last Admin: 07/11/18 11:36 Dose: 40 mg Escitalopram Oxalate (Lexapro) 10 mg PO DAILY [facility] Last Admin: 07/11/18 11:42 Dose: 10 mg Ferrous Sulfate (Feosol) 325 mg PO DAILY [facility] Last Admin: 07/11/18 11:36 Dose: 325 mg Gabapentin (Neurontin) 100 mg PO TID [facility] Last Admin: 07/11/18 12:28 Dose: Not Given Home Med (Riociguat [Adempas]) 2 mg PO TID [facility] Hydrocortisone (Cortef) 10 mg PO [facility] Last Admin: 07/10/18 21:32 Dose: 10 mg Insulin Human Regular (Humulin R) 0 units SC [facility]; Protocol Last Admin: 07/11/18 12:28 Dose: Not Given Ketorolac Tromethamine (Toradol) 30 mg IVP Q6 PRN PRN Reason: Pain, severe (8-10) Last Admin: 07/10/18 15:28 Dose: 30 mg Levothyroxine Sodium (Synthroid) 100 mcg PO DAILY@0630 [facility] Last Admin: 07/11/18 06:36 Dose: 100 mcg Magnesium Oxide (Mag-Ox) 400 mg PO DAILY [facility] Last Admin: 07/11/18 11:36 Dose: 400 mg Montelukast Sodium (Singulair) 10 mg PO DAILY [facility] Last Admin: 07/11/18 11:38 Dose: 10 mg Pantoprazole Sodium (Protonix Ec Tab) 40 mg PO DAILY [facility] Last Admin: 07/11/18 11:37 Dose: 40 mg Tiotropium [place] (Spiriva) 18 mcg INH DAILY [facility] Last Admin: 07/11/18 12:29 Dose: 18 mcg Torsemide (Demadex) 10 mg PO DAILY [facility] Last Admin: 07/11/18 11:38 Dose: 10 mg - Labs Labs: 07/11/18 05:10 07/11/18 05:10 - Constitutional Appears: No Acute Distress - Head Exam Head Exam: absent: ATRAUMATIC (right periorbital ecchymosis) - Eye Exam Eye Exam: EOMI - ENT Exam ENT Exam: Mucous Membranes Moist - Respiratory Exam Respiratory Exam: NORMAL BREATHING PATTERN. absent: Rhonchi (mild), Wheezes - Cardiovascular Exam Cardiovascular Exam: REGULAR RHYTHM, +S1, +S2 - GI/Abdominal Exam GI & Abdominal Exam: Soft, Normal Bowel Sounds. absent: Tenderness - Extremities Exam Extremities Exam: Full ROM. absent: Calf Tenderness, Normal Inspection (superficial right pretibial hematoma, decreasing in size 2x2cm) - Back Exam Back Exam: absent: NORMAL INSPECTION (right posterior shoulder ecchymosis) - Neurological Exam Neurological Exam: Alert, Awake, Oriented x3 - Psychiatric Exam Psychiatric exam: Normal Affect, Normal Mood - Skin Skin Exam: Dry, Normal Color, Warm Assessment and Plan - Assessment and Plan (Free Text) Assessment: 72 yr old F admitted for evaluation s/p unwitnessed syncopal episode. PMHx is significant for Multiple Myeloma, IDDM, HTN, COPD, pulmonary HTN, depression, Barrets Esophagus, hx PE with IVC filter in place, intermittent electrolyte imbalances, ambulates with walker and on continuos O2 (2L) via nasal cannula, uses adult diapers for urinary incontinence. Patient was recently treated for UTI, reports she did not complete antibiotic treatment. Plan: Syncope -acute, unwitnessed, r/o cardiac vs neuro etiology, likely vasovagal (decreased appetite and PO intake x 2-3 months) vs hypocalcemia -EKG: normal sinus rhythm at 96bpm, CXR: no acute disease -CT head: no acute intracranial hemorrhage -CBC: H/H 9.2/29.1; MCV 89.9 (at baseline); CMP: K+ 3.4, Ca 2+ 6.7, BUN 30/Cr 1.4, AST 203, ALT 92, alk phos 139 -echo 08/25/17: LVEF 60-65% with normal LV size and wall thickness; Cardiac cath 10/20/16: normal coronaries, no stents placed -EEG 03/29/18: mild to moderate non-specific diffuse disturbance of cortical ac tivity = diffuse wilson matter dysfunction -f/u carotid doppler -correct hypocalcemia -PT/OT Hypocalcemia/Hypokalemia -hypocalcemia refractory to supplemention, hypokalemia resolved -corrected calcium for mild hypoalbuminemia: 6.6 -K+ 3.9, Ca+2 6.5 -give Calcium gluconate 4.65 mEq in NS once -continue home medications (calcium carbonate -f/u BMP and Mag in AM -nephrology consult: Dr. Nava for recurrent electrolyte abnormality, hypocalcemia refractory to supplementation Left shoulder pain s/p fall -acute, stable -left shoulder xray: no acute fracture, minor degenerative osteoarthritis -tylenol PRN pain IDDM type 2 -chronic, controlled -03/12/18: HbA1c 6.6 -hold home medications (metformin, insulin glargine 20 units SC HS and insulin lispro 5 units SC TID) - medium dose Insulin coverage scale, hypoglycemia protocol - Nigel DODSON Multiple Myeloma/Anemia -chronic, stable -patient follows up regularly with heme/onc: Dr. Vilchis -continue PO Iron, home med, for anemia Hypertension -chronic, controlled -continue home medication Enalapril 5mg PO QD, Torsemide 10mg PO QD -Monitor BP COPD -chronic, stable -continuous O2 supplement via nasal cannula (2L) -uses continuously at home -Duoneb Q6 PRN SOB Hypothyroidism -chronic, controlled -TSH 2.73 on 07/10/18 -continue levothyroxine 100mcg PO QD Depression -chronic, controlled -continue home medications: abilify, buspar, cogentin, cymbalta GERD -chronic, controlled -Protonix 40 mg PO QD DVT Prophylaxis -Lovenox 40mg SC daily
[2018-07-11] MEDS: Magnesium Chloride 64 mg ER Tab PO SCH (17:30)
[2018-07-11 23:01] LABS: SQUAMOUS EPITHIAL 1 /hpf (0-5); URINE BACTERIA RARE (<OCC); URINE BILIRUBIN NEGATIVE (NEGATIVE); URINE BLOOD SMALL (NEGATIVE); URINE CLARITY SLIGHTY-CLOUDY (Clear); URINE COLOR YELLOW (YELLOW); URINE GLUCOSE (UA) NEG (NEGATIVE); URINE LEUKOCYTE ESTERASE LARGE Leu/uL (Negative); URINE PROTEIN NEGATIVE (NEGATIVE); URINE UROBILINOGEN 0.2-1.0 mg/dL (0.2-1.0)
[2018-07-12 06:05] LABS: ALB/GLOB RATIO 0.9 (1.0-2.1); ALBUMIN 3.4 g/dL (3.5-5.0); ALT/SGPT 102 U/L (9-52); AST/SGOT 217 U/L (14-36); BLOOD UREA NITROGEN 25 mg/dl (7-17); CALCIUM 6.9 mg/dL (8.4-10.2); GFR NON-AFRICAN AMERICAN 55
[2018-07-12] MEDS: Levothyroxine 100 MCG TAB PO SCH (06:22)
[2018-07-12] MEDS: Insulin Regular 100 units/ml SC SCH ×4 (07:04→22:55)
--- NOTE | 2018-07-12 08:34 | CON ---
DATE: 07/11/2018 NEPHROLOGY CONSULTATION LOCATION: [facility]. HISTORY OF PRESENT ILLNESS: The patient is a 72-year-old female with past medical history of hypertension, diabetes, COPD, on home O2, pulmonary hypertension, status post PE, status post IVC filter, multiple myeloma, on chemo and recurrent electrolyte abnormalities, presented with status post syncopal episode at home. Nephrology is being consulted for electrolyte abnormalities. The patient reports decreased p.o. intake over the past month. She reports early satiety and decreased appetite. The patient does also report some difficulty swallowing, needing to drink water frequently. She otherwise denies any nausea, vomiting, or diarrhea (constipated since past one plus week). The patient does report lightheadedness on standing lately. She otherwise has not had any other syncopal episodes lately. The patient does report significant weight loss lately. Denies any fevers or chills. She has continued to take her calcium supplementation at home. PAST MEDICAL HISTORY: As above. Admission in 03/2018 with severe hypercalcemia that is resolved with medical management. Previously with hypocalcemia. Also with recurrent hypomagnesemia. REVIEW OF SYSTEMS: CONSTITUTIONAL: As per HPI. HEENT: Reports stable vision. RESPIRATORY: Gets intermittent dyspnea but unchanged. CARDIOVASCULAR: Denies any chest pain or palpitation. GASTROINTESTINAL: As per HPI. GENITOURINARY: Denies any dysuria or difficulty urinating. Per record, she was recently treated for UTI with Keflex. MUSCULOSKELETAL: Reports back pain,only taking Tylenol. PSYCHIATRIC: Has had issues with anxiety. Reports being in grieving mode following the of her grandson a few months ago. PHYSICAL EXAMINATION: VITAL SIGNS: This evening, blood pressure 97/62, heart rate 73, respirations 17, temperature 97.9, and O2 sat 99% on O2 via nasal cannula. GENERAL: No distress. Conversing coherently in full sentences. HEENT: Moist mucous membranes. Nonicteric. No cervical lymphadenopathy. Ecchymosis under right eye. CARDIOVASCULAR: Heart sounds S1 and S2 normal. No murmurs, no gallops, no rubs. GASTROINTESTINAL: Abdomen is soft, nontender, nondistended. RESPIRATORY: Lungs are clear to auscultation bilaterally. No rales, no rhonchi, no wheezes. GENITOURINARY: No bladder distention. No suprapubic tenderness. MUSCULOSKELETAL: Bilateral lumbar paraspinal tenderness. EXTREMITIES: No lower leg edema. SKIN: Warm. No cyanosis. NEUROLOGIC: Tremor pronounced on right outstretched arm. PSYCHIATRIC: Normal mood. Normal affect. LABORATORY DATA: CBC: WBC 4.5, hemoglobin 8.5, hematocrit 26.1, platelets . Chemistry panel: Sodium 136, potassium 3.9, chloride 98, bicarb 25, BUN 28, creatinine 1.2, calcium 6.5, albumin 3.4. ASSESSMENT AND PLAN: 1. Hypocalcemia in the setting of being on chemotherapy for multiple myeloma as well as being on Prolia injections per previous records. The patient was treated previously with calcitriol but dose had to be decreased considerably after the patient presented with hypercalcemia three months ago. Unclear what dose of calcitriol that the patient was taking at home lately. Agree with 0.5 mcg every 12 hours along with calcium carbonate 500 mg twice a day. Agree with keeping on oral magnesium oxide. No need for aggressive magnesium replenishment as the patient has history of asymptomatic hypomagnesemia with difficult to maintain normal magnesium levels. 2. Hypertension. Blood pressure currently on lower end of normal on enalapril 5 mg daily. We will recommend to hold for now. 3. Congestive heart failure with pulmonary hypertension. The patient currently appears euvolemic on examination. Currently on torsemide 20 mg daily. We will recommend to decrease dose in half. Thank you for this referral. We will be following closely. Yoan Nava MD
[2018-07-12] MEDS: Magnesium Oxide 400 mg Tab UD PO SCH (08:55)
[2018-07-12] MEDS: Cholecalciferol 1,000 INTLU TAB PO SCH (08:56)
[2018-07-12] MEDS: Tiotropium 18 mcg Cap For Inhalation INH SCH (08:56)
[2018-07-12] MEDS: Pantoprazole 40 mg EC Tab PO SCH (08:57)
[2018-07-12] MEDS: Enoxaparin 40 mg Syringe SC SCH (08:58)
--- NOTE | 2018-07-12 08:59 | PQF ---
PROVIDER RESPONSE TEXT: Chronic CHF with preserved EF, stable REVIEWER QUERY TEXT: CHF Acuity and Type Such as: Type: -- Systolic -- Diastolic -- Combined -- Other, please specify Acuity: -- Acute -- Chronic -- Acute on chronic -- Other, please specify The patient's Clinical Indicators include: DX: CHF RX: Demadex Query created by: Tamar Garcia on 07/12/2018 8:22 AM Electronically signed by: Carmen Boyd 07/12/2018 8:57 AM
--- NOTE | 2018-07-12 08:59 | PQF ---
PROVIDER RESPONSE TEXT: Moderate major depression, stable REVIEWER QUERY TEXT: Depression Type Depression is documented in the Medical Record. Please specify the type Such as: -- Agitated depression -- Anxiety depression, mild or not persistent -- Anxiety depression, persistent -- Hysterical depression -- Major depression ( - mild, moderate, severe) -- Bipolar depression -- Reactive -- Situational / Grief reaction -- Other, please specify The patient's Clinical Indicators include: DX: Depression Rx: Irving Curtis Cymbalta, Lexapro, Cogentin Query created by: Tamar Garcia on 07/12/2018 8:16 AM Electronically signed by: Carmen Boyd 07/12/2018 8:57 AM
[2018-07-12 16:15] VITALS: RESP 18
--- NOTE | 2018-07-12 16:19 | CP.PCM.DIS ---
Provider - Provider Date of Admission: 07/11/18 11:13 Attending physician: David Nuemann MD Primary care physician: David Velasquez Consults: 07/11/18 11:41 Nephrology Consult Routine Comment: electrolyte abnormality-refractory hypocalcemia Consulting Provider: Yoan Nava Consulting Physician: Yoan Nava Reason for Consult: electrolyte abnormality-refractory hypocalcemia 07/12/18 14:22 Hematology Oncology Consult Routine Comment: multiple myeloma, anemia, refractory hypocalcemia Consulting Provider: Luis Eduardo Vilchis Consulting Physician: Luis Eduardo Vilchis Reason for Consult: multiple myeloma, anemia, refractory hypocalcemia Time Spent in preparation of Discharge (in minutes): 30 Diagnosis - Discharge Diagnosis (1) Hypocalcemia Status: Acute Priority: Medium (2) Syncope Status: Acute Priority: Low Hospital Course - Lab Results Lab Results: Most Recent Lab Values WBC 4.5 K/uL (4.8-10.8) L 07/11/18 05:10 RBC 2.94 Mil/uL (3.80-5.20) L 07/11/18 05:10 Hgb 8.5 g/dL (12.0-16.0) L 07/11/18 05:10 Hct 26.1 % (34.0-47.0) L 07/11/18 05:10 MCV 88.6 fl (81.0-99.0) 07/11/18 05:10 MCH 28.9 pg (27.0-31.0) 07/11/18 05:10 MCHC 32.6 g/dL (33.0-37.0) L 07/11/18 05:10 RDW 17.8 % (11.5-14.5) H 07/11/18 05:10 Plt Count 115 K/uL (130-400) L 07/11/18 05:10 MPV 11.1 fl (7.2-11.7) 07/11/18 05:10 Neut % (Auto) 65.2 % (50.0-75.0) 07/11/18 05:10 Lymph % (Auto) 13.2 % (20.0-40.0) L 07/11/18 05:10 [place] % (Auto) 20.4 % (0.0-10.0) H 07/11/18 05:10 Eos % (Auto) 1.1 % (0.0-4.0) 07/11/18 05:10 Baso % (Auto) 0.1 % (0.0-2.0) 07/11/18 05:10 Neut # (Auto) 3.0 K/uL (1.8-7.0) 07/11/18 05:10 Lymph # (Auto) 0.6 K/uL (1.0-4.3) L 07/11/18 05:10 [place] # (Auto) 0.9 K/uL (0.0-0.8) H 07/11/18 05:10 Eos # (Auto) 0.1 K/uL (0.0-0.7) 07/11/18 05:10 Baso # (Auto) 0.0 K/uL (0.0-0.2) 07/11/18 05:10 Neutrophils % (Manual) 62 % (42-75) 07/10/18 13:19 Lymphocytes % (Manual) 14 % (20-50) L 07/10/18 13:19 Monocytes % (Manual) 20 % (0-10) H 07/10/18 13:19 Eosinophils % (Manual) 1 % (0-7) 07/10/18 13:19 Metamyelocytes % 1 % (0-0) H 07/10/18 13:19 Myelocytes % 2 % (0-0) H 07/10/18 13:19 Platelet Estimate Normal (NORMAL) 07/10/18 13:19 Large Platelets Present 07/10/18 13:19 Hypochromasia (manual) Slight 07/10/18 13:19 Anisocytosis (manual) Slight 07/10/18 13:19 Ovalocytes Slight 07/10/18 13:19 Sodium 132 mmol/l (132-148) 07/12/18 04:50 Potassium 4.5 MMOL/L (3.6-5.0) 07/12/18 04:50 Chloride 98 mmol/L (98-107) 07/12/18 04:50 Carbon Dioxide 25 mmol/L (22-30) 07/12/18 04:50 Anion Gap 14 (10-20) 07/12/18 04:50 BUN 25 mg/dl (7-17) H 07/12/18 04:50 Creatinine 1.0 mg/dl (0.7-1.2) 07/12/18 04:50 Est GFR ( Amer) > 60 07/12/18 04:50 Est GFR (Non-Af Amer) 55 07/12/18 04:50 POC Glucose (mg/dL) 123 mg/dL (65-110) H 07/12/18 11:04 Random Glucose 112 mg/dL (65-105) H 07/12/18 04:50 Hemoglobin A1c 6.5 % (4.2-6.5) 07/12/18 04:50 Calcium 6.9 mg/dL (8.4-10.2) L 07/12/18 04:50 Phosphorus 3.0 mg/dl (2.5-4.5) 07/12/18 04:50 Magnesium 1.6 MG/DL (1.6-2.3) 07/12/18 04:50 Total Bilirubin 0.5 mg/dl (0.2-1.3) 07/12/18 04:50 AST 217 U/L (14-36) H 07/12/18 04:50 ALT 102 U/L (9-52) H 07/12/18 04:50 Alkaline Phosphatase 192 U/L (38-126) H 07/12/18 04:50 Troponin I 0.0190 ng/mL (0.00-0.120) 07/11/18 05:10 Total Protein 7.0 G/DL (6.3-8.2) 07/12/18 04:50 Albumin 3.4 g/dL (3.5-5.0) L 07/12/18 04:50 Globulin 3.6 gm/dL (2.2-3.9) 07/12/18 04:50 Albumin/Globulin Ratio 0.9 (1.0-2.1) L 07/12/18 04:50 TSH 3rd Generation 2.73 mIU/ML (0.46-4.68) 07/10/18 19:50 Urine Color Yellow (YELLOW) 07/11/18 22:49 Urine Clarity Slighty-cloudy (Clear) 07/11/18 22:49 Urine pH 6.0 (5.0-8.0) 07/11/18 22:49 Ur Specific [place] 1.008 (1.003-1.030) 07/11/18 22:49 Urine Protein Negative mg/dL (NEGATIVE) 07/11/18 22:49 Urine Glucose (UA) Neg mg/dL (NEGATIVE) 07/11/18 22:49 Urine Ketones Negative mg/dL (NEGATIVE) 07/11/18 22:49 Urine Blood Small (NEGATIVE) 07/11/18 22:49 Urine Nitrate Negative (NEGATIVE) 07/11/18 22:49 Urine Bilirubin Negative (NEGATIVE) 07/11/18 22:49 Urine Urobilinogen 0.2-1.0 mg/dL (0.2-1.0) 07/11/18 22:49 Ur Leukocyte Esterase Large [place]/uL (Negative) 07/11/18 22:49 Urine RBC (Auto) 12 /hpf (0-3) H 07/11/18 22:49 Urine Microscopic WBC 110 /hpf (0-5) H 07/11/18 22:49 Ur Squamous Epith Cells 1 /hpf (0-5) 07/11/18 22:49 Urine Bacteria Rare (<OCC) 07/11/18 22:49 Hyaline Casts 6-10 /hpf (0-2) H 07/11/18 22:49 - Hospital Course Hospital Course: 72 yr old F admitted for evaluation s/p unwitnessed syncopal episode. PMHx is significant for Multiple Myeloma, IDDM, HTN, COPD, pulmonary HTN, depression, Barrets Esophagus, hx PE with IVC filter in place, intermittent electrolyte imbalances, ambulates with walker and on continuos O2 (2L) via nasal cannula, uses adult diapers for urinary incontinence. Patient was found to have significant hypocalcemia refractory to IV and PO supplementation. CT head and EK G were within normal limits, Nephrology was consulted and recommendation to continue calcitriol 0.5 mcg PO Q12 along with calcium carbonate 500mg PO BID. Heme/onc was consulted for anemia and chemo for multiple myeloma. Patient was evaluated by physical therapy and recommendation is for subacute rehab. Patient is medically stable for discharge to TCU to continue PT/OT. - Date & Time of H&P Date of H&P: 07/10/18 Time of H&P: 14:30 Discharge Exam - Head Exam Head Exam: absent: ATRAUMATIC (right periorbital ecchymosis) - Eye Exam Eye Exam: EOMI - ENT Exam ENT Exam: Mucous Membranes Moist - Respiratory Exam Respiratory Exam: NORMAL BREATHING PATTERN - Cardiovascular Exam Cardiovascular Exam: REGULAR RHYTHM, +S1, +S2 - GI/Abdominal Exam GI & Abdominal Exam: Normal Bowel Sounds, Soft. absent: Tenderness - Extremities Exam Extremities exam: full ROM - Neurological Exam Neurological exam: Alert, CN II-XII Intact, Oriented x3 - Psychiatric Exam Psychiatric exam: Normal Affect, Normal Mood - Skin Skin Exam: Abrasion (left distal pretibial ecchymosis), Dry, Warm Discharge Plan - Follow Up Plan Condition: FAIR Disposition: REHAB FACILITY/REHAB UNIT Instructions: Syncope (Fainting) (DC), Hypocalcemia (DC), Syncope (DC), Syncope (GEN) Additional Instructions: discharge pt to tcu Referrals: David Neumann MD [Family Provider] -
[2018-07-12 20:11] VITALS: BP 94/58; PULSE 70; TEMP 98.3; O2SAT 100
== END 2018-07-12 23:00 | DRG 641 ==
LOC: H.ER 12:51 → H.ERHOLD 14:20 → H.TEL 16:04 → OBSVTOIN 07-11 11:13
PROVIDERS: ADMIT Family Medicine; ATTEND Family Medicine
DX: E83.51 Hypocalcemia (principal); C90.00 Multiple myeloma not having achieved remission; I50.32 Chronic diastolic (congestive) heart failure; F32.1 Major depressive disorder, single episode, moderate; R55 Syncope and collapse; E87.6 Hypokalemia; E11.9 Type 2 diabetes mellitus without complications; G20 Parkinson's disease; Z79.4 Long term (current) use of insulin; I11.0 Hypertensive heart disease with heart failure; Z86.711 Personal history of pulmonary embolism; Z99.81 Dependence on supplemental oxygen; E03.9 Hypothyroidism, unspecified; E78.00 Pure hypercholesterolemia, unspecified; G47.30 Sleep apnea, unspecified; I25.10 Atherosclerotic heart disease of native coronary artery without angina pectoris; I27.20 Pulmonary hypertension, unspecified; J43.9 Emphysema, unspecified; K21.9 Gastro-esophageal reflux disease without esophagitis; M06.9 Rheumatoid arthritis, unspecified; M79.7 Fibromyalgia; R13.10 Dysphagia, unspecified; Z79.82 Long term (current) use of aspirin; Z79.899 Other long term (current) drug therapy; Z80.1 Family history of malignant neoplasm of trachea, bronchus and lung; Z82.49 Family history of ischemic heart disease and other diseases of the circulatory system; Z87.01 Personal history of pneumonia (recurrent); Z87.440 Personal history of urinary (tract) infections; Z90.49 Acquired absence of other specified parts of digestive tract; Z95.828 Presence of other vascular implants and grafts; D64.9 Anemia, unspecified; E83.42 Hypomagnesemia; F32.9 Major depressive disorder, single episode, unspecified; F41.9 Anxiety disorder, unspecified; G43.909 Migraine, unspecified, not intractable, without status migrainosus; M19.90 Unspecified osteoarthritis, unspecified site; R32 Unspecified urinary incontinence; Z79.84 Long term (current) use of oral hypoglycemic drugs; R63.4 Abnormal weight loss; R68.81 Early satiety

== ENCOUNTER 2018-07-12 16:01 | Inpatient (IN) | payer MEDICARE, OTHER ==
[2018-07-12 23:12] VITALS: BMI 35.6
[2018-07-13] MEDS ORDERED: Albuterol-Ipratrop 3 mg / 0.5 (3 ml) UD INH PRN (04:16)
[2018-07-13] MEDS ORDERED: Dextrose 50% SYRINGE Inj (50 ml) IV PRN (05:42)
[2018-07-13] MEDS ORDERED: Glucagon Recombinant 1 mg Inj IM PRN (05:42)
[2018-07-13 07:14] LABS: HEMOGLOBIN 8.6 g/dL (12.0-16.0); MEAN CELL VOLUME 88.7 fl (81.0-99.0); MEAN CORPUSCULAR HEMOGLOBIN 29.5 pg (27.0-31.0); MEAN CORPUSCULAR HGB CONC 33.2 g/dL (33.0-37.0); RBC 2.91 Mil/uL (3.80-5.20); RED CELL DISTRIBUTION WIDTH 17.9 % (11.5-14.5); WHITE BLOOD COUNT 4.4 K/uL (4.8-10.8)
[2018-07-13 07:34] LABS: ALB/GLOB RATIO 0.9 (1.0-2.1); ALBUMIN 3.2 g/dL (3.5-5.0); ALT/SGPT 101 U/L (9-52); AST/SGOT 192 U/L (14-36); BLOOD UREA NITROGEN 19 mg/dl (7-17); CALCIUM 6.7 mg/dL (8.4-10.2); GFR NON-AFRICAN AMERICAN > 60
[2018-07-13] MEDS: Levothyroxine 100 MCG TAB PO SCH (07:40)
[2018-07-13] MEDS: Insulin Regular 100 units/ml SC SCH ×4 (07:47→22:37)
[2018-07-13] MEDS: Enoxaparin 40 mg Syringe SC SCH (08:45)
[2018-07-13] MEDS: Tiotropium 18 mcg Cap For Inhalation INH SCH (08:47)
[2018-07-13] MEDS: Magnesium Oxide 400 mg Tab UD PO SCH (08:47)
[2018-07-13] MEDS: Insulin Lispro (humaLOG) 100 Units/ml Inj SC SCH ×3 (08:48→17:20)
[2018-07-13] MEDS: Pantoprazole 40 mg EC Tab PO SCH (08:53)
[2018-07-13] MEDS: Cholecalciferol 1,000 INTLU TAB PO SCH (08:54)
[2018-07-13] MEDS ORDERED: MAGNESIUM OXIDE 400 MG PO SCH (09:00)
[2018-07-13] MEDS ORDERED: Tiotropium 18 mcg Cap For Inhalation INH SCH (09:00)
[2018-07-13] MEDS ORDERED: RIOCIGUAT 2 MG PO SCH (09:00)
--- NOTE | 2018-07-13 12:14 | CP.PCM.HP ---
History of Present Illness - History of Present Illness History of Present Illness: 72 yr old F with PMHx is significant for Multiple Myeloma, IDDM, HTN, COPD, pulmonary HTN, depression, Barrets Esophagus, hx PE with IVC filter in place, intermittent electrolyte imbalances, ambulates with walker and on continuos O2 (2L) via nasal cannula, uses adult diapers for urinary incontinence. Patient admitted to TCU for PT/OT for deconditining and gait imbalance s/p discharge from telemetry for evaluation of unwitnessed syncopal episode. CT head and EKG were within normal limits, Nephrology was consulted and recommendation to continue calcitriol 0.5 mcg PO Q12 along with calcium carbonate 500mg PO BID. Heme/onc was consulted for anemia and chemo for multiple myeloma. Patient was evaluated by physical therapy and recommendation is for subacute rehab. Patient denies chest pain, headache, dizziness. Present on Admission - Present on Admission Any Indicators Present on Admission: No History of DVT/PE: No History of Uncontrolled Diabetes: No Urinary Catheter: No Decubitus Ulcer Present: No Review of Systems - Constitutional Constitutional: absent: Weight Loss - EENT Ears: absent: Dizziness Nose/Mouth/Throat: absent: Sore Throat - Cardiovascular Cardiovascular: absent: Chest Pain, Dyspnea - Respiratory Respiratory: absent: Hemoptysis - Gastrointestinal Gastrointestinal: absent: Nausea, Vomiting - Genitourinary Genitourinary: absent: Dysuria - Musculoskeletal Musculoskeletal: Abnormal Gait. absent: Numbness, Tingling - Integumentary Integumentary: absent: Wounds - Neurological Neurological: absent: Confusion - Psychiatric Psychiatric: absent: Anxiety - Endocrine Endocrine: absent: Polyphagia, Polyuria - Hematologic/Lymphatic Hematologic: absent: Easy Bleeding, Easy Bruising Past Patient History - Infectious Disease Hx of Infectious Diseases: None - Tetanus Immunizations Tetanus Immunization: Unknown - Past Medical History & Family History Past Medical History?: Yes - Past Social History Smoking Status: Never Smoked - CARDIAC Hx Congestive Heart Failure: Yes Hx Hypercholesterolemia: Yes Hx Hypertension: Yes - PULMONARY Hx Asthma: Yes Hx Chronic Obstructive Pulmonary Disease (COPD): Yes Hx Emphysema: Yes Hx Pneumonia: Yes Hx Pulmonary Embolism: Yes Hx Sleep Apnea: Yes - NEUROLOGICAL Hx Migraine: Yes Hx Parkinson's Disease: Yes - HEENT Hx HEENT Problems: No - RENAL Hx Chronic Kidney Disease: No - ENDOCRINE/METABOLIC Hx Hypothyroidism: Yes - HEMATOLOGICAL/ONCOLOGICAL Hx Anemia: Yes Hx Human Immunodeficiency Virus (HIV): No - INTEGUMENTARY Hx Dermatological Problems: No - MUSCULOSKELETAL/RHEUMATOLOGICAL Hx Arthritis: Yes Hx Fractures: Yes Hx Rheumatoid Arthritis: Yes - GASTROINTESTINAL Hx Gastrointestinal Disorders: Yes Hx Gastroesophageal Reflux: Yes - GENITOURINARY/GYNECOLOGICAL Hx Genitourinary Disorders: Yes Hx Incontinence: Yes - PSYCHIATRIC Hx Anxiety: Yes Hx Depression: Yes - SURGICAL HISTORY Hx Appendectomy: Yes Hx Cholecystectomy: Yes Hx Tonsillectomy: Yes - ANESTHESIA Hx Anesthesia: Yes Hx Anesthesia Reactions: Yes (Resp. Distress) Hx Malignant Hyperthermia: No Meds Allergies/Adverse Reactions: Allergies Allergy/AdvReac Type Severity Reaction Status Date / Time codeine AdvReac syncope, Verified 07/10/18 12:55 diaphoresis Physical Exam - Constitutional Appears: No Acute Distress - Head Exam Head Exam: absent: ATRAUMATIC (ecchymosis of right periorbital area) - Eye Exam Eye Exam: EOMI, PERRL - ENT Exam ENT Exam: Mucous Membranes Moist - Respiratory Exam Respiratory Exam: Clear to Auscultation Bilateral, NORMAL BREATHING PATTERN - Cardiovascular Exam Cardiovascular Exam: REGULAR RHYTHM, +S1, +S2 - GI/Abdominal Exam GI & Abdominal Exam: Normal Bowel Sounds, Soft. absent: Tenderness - Extremities Exam Extremities exam: Positive for: full ROM. Negative for: calf tenderness, normal inspection (small ecchymosis of left distal pretibial area), pedal edema - Neurological Exam Neurological exam: Alert, CN II-XII Intact, Oriented x3 - Psychiatric Exam Psychiatric exam: Normal Affect, Normal Mood - Skin Skin Exam: Dry, Warm Results - Vital Signs Recent Vital Signs: Last Vital Signs Temp 97.7 F 07/13/18 08:14 Pulse 64 07/13/18 08:14 Resp 18 07/13/18 08:14 BP 108/66 07/13/18 08:14 Pulse Ox 99 07/13/18 08:14 - Labs Result Diagrams: 07/13/18 06:50 07/13/18 06:50 Labs: Laboratory Results - last 24 hr 07/13/18 07/13/18 07/13/18 06:47 06:50 06:50 WBC 4.4 L RBC 2.91 L Hgb 8.6 L Hct 25.8 L MCV 88.7 MCH 29.5 MCHC 33.2 RDW 17.9 H Plt Count 125 L Sodium 132 Potassium 4.5 Chloride 98 Carbon Dioxide 27 Anion Gap 12 BUN 19 H Creatinine 0.9 Est GFR ( Amer) > 60 Est GFR (Non-Af Amer) > 60 POC Glucose (mg/dL) 135 H Random Glucose 127 H Calcium 6.7 L Total Bilirubin 0.4 AST 192 H ALT 101 H Alkaline Phosphatase 235 H D Total Protein 6.6 Albumin 3.2 L Globulin 3.4 Albumin/Globulin Ratio 0.9 L 07/13/18 06:50 WBC RBC Hgb Hct MCV MCH MCHC RDW Plt Count Sodium Potassium Chloride Carbon Dioxide Anion Gap BUN Creatinine Est GFR ( Amer) Est GFR (Non-Af Amer) POC Glucose (mg/dL) Random Glucose Calcium 6.7 L Total Bilirubin AST ALT Alkaline Phosphatase Total Protein Albumin Globulin Albumin/Globulin Ratio Assessment & Plan - Assessment and Plan (Free Text) Assessment: 72 yr old F admitted to TCU for PT/OT for deconditioning and abnormal gait. Patient was recelty discharged from telemetry for evaluation s/p unwitnessed syncopal episode. PMHx is significant for Multiple Myeloma, IDDM, HTN, COPD, pulmonary HTN, depression, Barrets Esophagus, hx PE with IVC filter in place, intermittent electrolyte imbalances, ambulates with walker and on continuos O2 (2L) via nasal cannula, uses adult diapers for urinary incontinence. Patient is stable for PT/OT. Plan: Deconditioning/abnormal gait -admit to TCU -continue PT/OT Hypocalcemia -hypocalcemia refractory to supplemention -corrected calcium for mild hypoalbuminemia: 6.6 -Ca+2 6.7 -continue home medications (calcium carbonate 500mg PO BID, calcitriol 0.5 mcg PO Q12) -f/u BMP AM -nephrology consult: Dr. Nava for recurrent electrolyte abnormality, hypocalcemia refractory to supplementation Left shoulder pain s/p fall -acute, stable -left shoulder xray: no acute fracture, minor degenerative osteoarthritis -tylenol PRN pain IDDM type 2 -chronic, controlled -03/12/18: HbA1c 6.6 -hold home medications (metformin, insulin detemir 20 units SC HS and insulin lispro 5 units SC TID) - medium dose Insulin coverage scale, hypoglycemia protocol - Accucheck ACHS Multiple Myeloma/Anemia -chronic, stable -patient follows up regularly with heme/onc: Dr. Vilchis -continue PO Iron, home med, for anemia Hypertension -chronic, controlled -hold home medication Enalapril 5mg PO QD -continue Torsemide 10mg PO QD -Monitor BP Pulmonary hypertension -chronic, controlled -BIPAP ordered PRN (home settings IPAP 15, EPAP 5, FiO2 1, 1 L/min COPD -chronic, stable -continuous O2 supplement via nasal cannula (2L) -uses continuously at home -Duoneb Q6 PRN SOB Hypothyroidism -chronic, controlled -TSH 2.73 on 07/10/18 -continue levothyroxine 100mcg PO QD Depression -chronic, controlled -continue home medications: abilify, buspar, cogentin, cymbalta GERD -chronic, controlled -Protonix 40 mg PO QD DVT Prophylaxis -Lovenox 40mg SC daily - Date & Time Date: 07/13/18 Time: 10:00
--- NOTE | 2018-07-13 13:28 | CP.PCM.CON ---
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 She has had chronic electrolyte issues which persisted despite holding lenalidomide. She restated lenalidomide 1 month ago and has been tolerating it well. Past medical history: type II DM, hypertension, COPD, sleep apnea with pulmonary hypertension, multiple myeloma with lytic bone lesions. Past surgical history: None Family history: Denies hematologic and oncologic problems. Social history: Denies tobacco, alcohol, and illicit drug use. Allergies: Codeine. Review of systems: All remaining ROS including HEENT, cardiovascular, respiratory, gastrointestinal, genitourinary, musculoskeletal, dermatologic, neurologic, and psychiatric are negative unless mentioned in the HPI. Past Patient History - Infectious Disease Hx of Infectious Diseases: None - Tetanus Immunizations Tetanus Immunization: Unknown - Past Medical History & Family History Past Medical History?: Yes - Past Social History Smoking Status: Never Smoked - CARDIAC Hx Congestive Heart Failure: Yes Hx Hypercholesterolemia: Yes Hx Hypertension: Yes - PULMONARY Hx Asthma: Yes Hx Chronic Obstructive Pulmonary Disease (COPD): Yes Hx Emphysema: Yes Hx Pneumonia: Yes Hx Pulmonary Embolism: Yes Hx Sleep Apnea: Yes - NEUROLOGICAL Hx Migraine: Yes Hx Parkinson's Disease: Yes - HEENT Hx HEENT Problems: No - RENAL Hx Chronic Kidney Disease: No - ENDOCRINE/METABOLIC Hx Hypothyroidism: Yes - HEMATOLOGICAL/ONCOLOGICAL Hx Anemia: Yes Hx Human Immunodeficiency Virus (HIV): No - INTEGUMENTARY Hx Dermatological Problems: No - MUSCULOSKELETAL/RHEUMATOLOGICAL Hx Arthritis: Yes Hx Fractures: Yes Hx Rheumatoid Arthritis: Yes - GASTROINTESTINAL Hx Gastrointestinal Disorders: Yes Hx Gastroesophageal Reflux: Yes - GENITOURINARY/GYNECOLOGICAL Hx Genitourinary Disorders: Yes Hx Incontinence: Yes - PSYCHIATRIC Hx Anxiety: Yes Hx Depression: Yes - SURGICAL HISTORY Hx Appendectomy: Yes Hx Cholecystectomy: Yes Hx Tonsillectomy: Yes - ANESTHESIA Hx Anesthesia: Yes Hx Anesthesia Reactions: Yes (Resp. Distress) Hx Malignant Hyperthermia: No Meds Allergies/Adverse Reactions: Allergies Allergy/AdvReac Type Severity Reaction Status Date / Time codeine AdvReac syncope, Verified 07/10/18 12:55 diaphoresis - Medications Medications: Current Medications Albuterol/Ipratropium (Duoneb 3 Mg/0.5 Mg (3 Ml) Ud) 3 ml INH RQ6 PRN PRN Reason: Shortness of Breath Amiloride HCl (Amiloride 5 Mg Tab) 5 mg PO DAILY [facility] Aripiprazole (Abilify) 2 mg PO HS [facility] Aspirin (Ecotrin) 81 mg PO DAILY [facility] Last Admin: 07/13/18 08:45 Dose: 81 mg Atorvastatin Calcium (Lipitor) 20 mg PO HS [facility] Benztropine Mesylate (Cogentin) 1 mg PO Q12 [facility] Last Admin: 07/13/18 08:48 Dose: 1 mg Bortezomib (Velcade) 3.5 mg SC TUTH [facility] Buspirone HCl (Buspar) 15 mg PO Q12 [facility] Last Admin: 07/13/18 08:46 Dose: 15 mg Calcitriol (Rocaltrol) 0.5 mcg PO Q12 [facility] Last Admin: 07/13/18 08:45 Dose: 0.5 mcg Calcium Carbonate (Oscal) 500 mg PO BID [facility] Last Admin: 07/13/18 08:53 Dose: 500 mg Cholecalciferol (Vitamin D) 1,000 intlu PO DAILY [facility] Last Admin: 07/13/18 08:54 Dose: 1,000 intlu Clonazepam (Klonopin) 0.5 mg PO DAILY PRN PRN Reason: Anxiety Dextrose (Dextrose 50% Inj) 0 ml IV STAT PRN; Protocol PRN Reason: Hypoglycemia Protocol Dextrose (Glutose 15) 0 gm PO ONCE PRN; Protocol PRN Reason: Hypoglycemia Protocol Docusate Sodium (Colace) 100 mg PO BID [facility] Last Admin: 07/13/18 08:47 Dose: 100 mg Duloxetine HCl (Cymbalta) 60 mg PO DAILY [facility] Last Admin: 07/13/18 08:45 Dose: 60 mg Enalapril Maleate (Vasotec) 5 mg PO DAILY [facility] Enoxaparin Sodium (Lovenox) 40 mg SC DAILY [facility]; Protocol Last Admin: 07/13/18 08:45 Dose: 40 mg Escitalopram Oxalate (Lexapro) 10 mg PO DAILY [facility] Last Admin: 07/13/18 08:51 Dose: 10 mg Ferrous Sulfate (Feosol) 325 mg PO DAILY [facility] Last Admin: 07/13/18 08:47 Dose: 325 mg Gabapentin (Neurontin) 100 mg PO TID [facility] Last Admin: 07/13/18 12:50 Dose: 100 mg Glucagon (Glucagen Diagnostic Kit) 0 mg IM STAT PRN; Protocol PRN Reason: Hypoglycemia Protocol Home Med (Riociguat [Adempas]) 2 mg PO TID [facility] Hydrocortisone (Cortef) 10 mg PO HS [facility] Insulin Detemir (Levemir) 20 units SC HS [facility] Insulin Human Lispro (Humalog) 5 units SC TID [facility] Last Admin: 07/13/18 12:48 Dose: 5 u Insulin Human Regular (Humulin R) 0 units SC [facility]; Protocol Last Admin: 07/13/18 11:30 Dose: Not Given Ketorolac Tromethamine (Toradol) 30 mg IVP Q6 PRN PRN Reason: Pain, moderate (4-7) Levothyroxine Sodium (Synthroid) 100 mcg PO DAILY@0630 [facility] Last Admin: 07/13/18 07:40 Dose: 100 mcg Magnesium Oxide (Mag-Ox) 400 mg PO DAILY [facility] Last Admin: 07/13/18 08:47 Dose: 400 mg Montelukast Sodium (Singulair) 10 mg PO DAILY [facility] Last Admin: 07/13/18 08:53 Dose: 10 mg Nystatin (Nystop Topical Powder) 1 applic TOP TID [facility] Last Admin: 07/13/18 12:49 Dose: 1 applic Pantoprazole Sodium (Protonix Ec Tab) 40 mg PO DAILY [facility] Last Admin: 07/13/18 08:53 Dose: 40 mg Tiotropium [place] (Spiriva) 18 mcg INH DAILY [facility] Last Admin: 07/13/18 08:47 Dose: 18 mcg Torsemide (Demadex) 10 mg PO DAILY [facility] Last Admin: 07/13/18 08:45 Dose: 10 mg Physical Exam - Head Exam Head Exam: ATRAUMATIC - Eye Exam Eye Exam: Normal appearance - ENT Exam ENT Exam: Mucous Membranes Dry - Respiratory Exam Respiratory Exam: NORMAL BREATHING PATTERN - Cardiovascular Exam Cardiovascular Exam: +S1, +S2 - GI/Abdominal Exam GI & Abdominal Exam: Normal Bowel Sounds - Extremities Exam Extremities exam: Positive for: pedal edema - Neurological Exam Neurological exam: Oriented x3 - Psychiatric Exam Psychiatric exam: Normal Affect, Normal Mood - Skin Skin Exam: Warm Results - Vital Signs Recent Vital Signs: Last Vital Signs Temp 97.7 F 07/13/18 08:14 Pulse 73 07/13/18 11:35 Resp 18 07/13/18 08:14 BP 108/66 07/13/18 08:14 Pulse Ox 97 07/13/18 11:35 - Labs Result Diagrams: 07/13/18 06:50 07/13/18 06:50 Labs: Laboratory Results - last 24 hr 07/13/18 07/13/18 07/13/18 06:47 06:50 06:50 WBC 4.4 L RBC 2.91 L Hgb 8.6 L Hct 25.8 L MCV 88.7 MCH 29.5 MCHC 33.2 RDW 17.9 H Plt Count 125 L Sodium 132 Potassium 4.5 Chloride 98 Carbon Dioxide 27 Anion Gap 12 BUN 19 H Creatinine 0.9 Est GFR ( Amer) > 60 Est GFR (Non-Af Amer) > 60 POC Glucose (mg/dL) 135 H Random Glucose 127 H Calcium 6.7 L Total Bilirubin 0.4 AST 192 H ALT 101 H Alkaline Phosphatase 235 H D Total Protein 6.6 Albumin 3.2 L Globulin 3.4 Albumin/Globulin Ratio 0.9 L 07/13/18 06:50 WBC RBC Hgb Hct MCV MCH MCHC RDW Plt Count Sodium Potassium Chloride Carbon Dioxide Anion Gap BUN Creatinine Est GFR ( Amer) Est GFR (Non-Af Amer) POC Glucose (mg/dL) Random Glucose Calcium 6.7 L Total Bilirubin AST ALT Alkaline Phosphatase Total Protein Albumin Globulin Albumin/Globulin Ratio Assessment & Plan (1) Pancytopenia Assessment and Plan: mild ? related to chemotherapy ? related to myeloma cont. to monitor Status: Acute (2) Multiple myeloma Assessment and Plan: outpatient treatment daughter to bring in lenalidomide to restart Thank you for this interesting consult. Status: Chronic
[2018-07-13] MEDS: Simethicone 80 mg Chewtab PO PRN (20:47)
[2018-07-13] MEDS: Insulin Detemir 100 Units/ml Inj SC SCH (21:16)
[2018-07-14] MEDS: Levothyroxine 100 MCG TAB PO SCH (06:13)
[2018-07-14] MEDS: Pantoprazole 40 mg EC Tab PO SCH (08:31)
[2018-07-14] MEDS: Magnesium Oxide 400 mg Tab UD PO SCH (08:31)
[2018-07-14] MEDS: Cholecalciferol 1,000 INTLU TAB PO SCH (08:31)
[2018-07-14] MEDS: Tiotropium 18 mcg Cap For Inhalation INH SCH (08:31)
[2018-07-14] MEDS: Enoxaparin 40 mg Syringe SC SCH (08:32)
[2018-07-14] MEDS: Insulin Lispro (humaLOG) 100 Units/ml Inj SC SCH ×3 (08:33→17:16)
[2018-07-14] MEDS: Insulin Regular 100 units/ml SC SCH ×4 (08:33→21:36)
[2018-07-14 11:10] LABS: HEMOGLOBIN 9.4 g/dL (12.0-16.0); MEAN CELL VOLUME 89.3 fl (81.0-99.0); MEAN CORPUSCULAR HEMOGLOBIN 29.4 pg (27.0-31.0); MEAN CORPUSCULAR HGB CONC 32.9 g/dL (33.0-37.0); RBC 3.21 Mil/uL (3.80-5.20); WHITE BLOOD COUNT 4.7 K/uL (4.8-10.8)
[2018-07-14 11:46] LABS: ALB/GLOB RATIO 0.9 (1.0-2.1); ALBUMIN 3.7 g/dL (3.5-5.0); ALT/SGPT 110 U/L (9-52); AST/SGOT 196 U/L (14-36); BLOOD UREA NITROGEN 19 mg/dl (7-17); CALCIUM 7.7 mg/dL (8.4-10.2); GFR NON-AFRICAN AMERICAN > 60
--- NOTE | 2018-07-14 15:05 | CP.PCM.PN ---
Subjective - Date & Time of Evaluation Date of Evaluation: 07/14/18 Time of Evaluation: 08:50 - Subjective Subjective: Patient seen and examined at bedside in no acute distress. No acute events overnight. Patient reports tolerating BIPAP overnight without difficulty. Is tolerating PO diet, and PT/OT. Reports normal urine and stool output. Objective - Vital Signs/Intake and Output Vital Signs (last 24 hours): Temp Pulse Resp BP Pulse Ox 97.7 F 58 L 18 133/73 100 07/14/18 07:51 07/14/18 07:51 07/14/18 07:51 07/14/18 07:51 07/14/18 07:51 - Medications Medications: Current Medications Albuterol/Ipratropium (Duoneb 3 Mg/0.5 Mg (3 Ml) Ud) 3 ml INH RQ6 PRN PRN Reason: Shortness of Breath Amiloride HCl (Amiloride 5 Mg Tab) 5 mg PO DAILY [facility] Aripiprazole (Abilify) 2 mg PO HS [facility] Last Admin: 07/13/18 21:13 Dose: 2 mg Aspirin (Ecotrin) 81 mg PO DAILY [facility] Last Admin: 07/14/18 08:33 Dose: 81 mg Atorvastatin Calcium (Lipitor) 20 mg PO HS [facility] Last Admin: 07/13/18 21:14 Dose: 20 mg Benztropine Mesylate (Cogentin) 1 mg PO Q12 [facility] Last Admin: 07/14/18 08:32 Dose: 1 mg Bortezomib (Velcade) 3.5 mg SC TUTH [facility] Buspirone HCl (Buspar) 15 mg PO Q12 [facility] Last Admin: 07/14/18 08:32 Dose: 15 mg Calcitriol (Rocaltrol) 0.5 mcg PO Q12 [facility] Last Admin: 07/14/18 08:31 Dose: 0.5 mcg Calcium Carbonate (Oscal) 500 mg PO BID [facility] Last Admin: 07/14/18 08:34 Dose: 500 mg Cholecalciferol (Vitamin D) 1,000 intlu PO DAILY [facility] Last Admin: 07/14/18 08:31 Dose: 1,000 intlu Clonazepam (Klonopin) 0.5 mg PO DAILY PRN PRN Reason: Anxiety Dextrose (Dextrose 50% Inj) 0 ml IV STAT PRN; Protocol PRN Reason: Hypoglycemia Protocol Dextrose (Glutose 15) 0 gm PO ONCE PRN; Protocol PRN Reason: Hypoglycemia Protocol Docusate Sodium (Colace) 100 mg PO BID [facility] Last Admin: 07/14/18 08:32 Dose: 100 mg Duloxetine HCl (Cymbalta) 60 mg PO DAILY [facility] Last Admin: 07/14/18 08:31 Dose: 60 mg Enalapril Maleate (Vasotec) 5 mg PO DAILY [facility] Enoxaparin Sodium (Lovenox) 40 mg SC DAILY [facility]; Protocol Last Admin: 07/14/18 08:32 Dose: 40 mg Escitalopram Oxalate (Lexapro) 10 mg PO DAILY [facility] Last Admin: 07/14/18 08:32 Dose: 10 mg Ferrous Sulfate (Feosol) 325 mg PO DAILY [facility] Last Admin: 07/14/18 08:31 Dose: 325 mg Gabapentin (Neurontin) 100 mg PO TID [facility] Last Admin: 07/14/18 12:15 Dose: 100 mg Glucagon (Glucagen Diagnostic Kit) 0 mg IM STAT PRN; Protocol PRN Reason: Hypoglycemia Protocol Home Med (Riociguat [Adempas]) 2 mg PO TID [facility] Hydrocortisone (Cortef) 10 mg PO HS [facility] Last Admin: 07/13/18 21:14 Dose: 10 mg Insulin Detemir (Levemir) 20 units SC [facility] Last Admin: 07/13/18 21:16 Dose: 20 units Insulin Human Lispro (Humalog) 5 units SC TID [facility] Last Admin: 07/14/18 14:03 Dose: Not Given Insulin Human Regular (Humulin R) 0 units SC [facility]; Protocol Last Admin: 07/14/18 12:13 Dose: Not Given Ketorolac Tromethamine (Toradol) 30 mg IVP Q6 PRN PRN Reason: Pain, moderate (4-7) Levothyroxine Sodium (Synthroid) 100 mcg PO DAILY@0630 [facility] Last Admin: 07/14/18 06:13 Dose: 100 mcg Magnesium Oxide (Mag-Ox) 400 mg PO DAILY [facility] Last Admin: 07/14/18 08:31 Dose: 400 mg Montelukast Sodium (Singulair) 10 mg PO DAILY [facility] Last Admin: 07/14/18 08:31 Dose: 10 mg Nystatin (Nystop Topical Powder) 1 applic TOP TID [facility] Last Admin: 07/14/18 12:15 Dose: 1 applic Pantoprazole Sodium (Protonix Ec Tab) 40 mg PO DAILY [facility] Last Admin: 07/14/18 08:31 Dose: 40 mg Simethicone (Mylicon Chew Tab) 80 mg PO [facility] PRN PRN Reason: Flatulence Last Admin: 07/13/18 20:47 Dose: 80 mg Tiotropium [place] (Spiriva) 18 mcg INH DAILY [facility] Last Admin: 07/14/18 08:31 Dose: 18 mcg Torsemide (Demadex) 10 mg PO DAILY [facility] Last Admin: 07/14/18 08:31 Dose: 10 mg - Labs Labs: 07/14/18 10:45 07/14/18 10:45 - Constitutional Appears: No Acute Distress - Head Exam Head Exam: ATRAUMATIC, NORMOCEPHALIC - Eye Exam Eye Exam: EOMI - ENT Exam ENT Exam: Mucous Membranes Moist - Respiratory Exam Respiratory Exam: Clear to Ausculation Bilateral, NORMAL BREATHING PATTERN - Cardiovascular Exam Cardiovascular Exam: REGULAR RHYTHM, +S1, +S2 - GI/Abdominal Exam GI & Abdominal Exam: Soft, Normal Bowel Sounds - Extremities Exam Extremities Exam: Full ROM - Neurological Exam Neurological Exam: Alert, Awake, Oriented x3 - Psychiatric Exam Psychiatric exam: Normal Affect, Normal Mood - Skin Skin Exam: Dry, Warm Additional comments: periorbital ecchymosis and left posterior shoulder ecchymosis Assessment and Plan - Assessment and Plan (Free Text) Assessment: 72 yr old F admitted to TCU for PT/OT for deconditioning and abnormal gait. Patient was recelty discharged from telemetry for evaluation s/p unwitnessed syncopal episode. PMHx is significant for Multiple Myeloma, IDDM, HTN, COPD, pulmonary HTN, depression, Barrets Esophagus, hx PE with IVC filter in place, intermittent electrolyte imbalances, ambulates with walker and on continuos O2 (2L) via nasal cannula, uses adult diapers for urinary incontinence. Patient is stable for PT/OT. Plan: Deconditioning/abnormal gait -continue PT/OT Hypocalcemia -improving -corrected calcium for mild hypoalbuminemia: 6.6 -Ca+2 7.7 -continue home medications (calcium carbonate 500mg PO BID, calcitriol 0.5 mcg PO Q12) -f/u BMP AM -nephrology consult: Dr. Nava for recurrent electrolyte abnormality, hypocalcemia refractory to supplementation Elevated LFT's/alk phos -chronic, intermitent x 1 yr, asymptomatic (AST 196, ALT 110, alk phos 338) -07/01/18 Abd/Pelvis CT: liver unremarkable, no gross lesion or dilatation, mildly dilated small bowel without mechanical obstructing lesion -f/u Hepatitis panel -will consider abd US Left shoulder pain s/p fall -acute, stable -left shoulder xray: no acute fracture, minor degenerative osteoarthritis -tylenol PRN pain IDDM type 2 -chronic, controlled -03/12/18: HbA1c 6.6 -hold home medications (metformin, insulin detemir 20 units SC HS and insulin lispro 5 units SC TID) - medium dose Insulin coverage scale, hypoglycemia protocol - Accucheck ACHS Multiple Myeloma/Anemia -chronic, stable -patient follows up regularly with heme/onc: Dr. Vilchis -continue PO Iron, home med, for anemia Hypertension -chronic, controlled -hold home medication Enalapril 5mg PO QD -continue Torsemide 10mg PO QD -Monitor BP Pulmonary hypertension -chronic, controlled -BIPAP ordered PRN (home settings IPAP 15, EPAP 5, FiO2 1, 1 L/min COPD -chronic, stable -continuous O2 supplement via nasal cannula (2L) -uses continuously at home -Duoneb Q6 PRN SOB Hypothyroidism -chronic, controlled -TSH 2.73 on 07/10/18 -continue levothyroxine 100mcg PO QD Depression -chronic, controlled -continue home medications: abilify, buspar, cogentin, cymbalta GERD -chronic, controlled -Protonix 40 mg PO QD DVT Prophylaxis -Lovenox 40mg SC daily
[2018-07-14] MEDS: Simethicone 80 mg Chewtab PO PRN (20:18)
[2018-07-14] MEDS: Insulin Detemir 100 Units/ml Inj SC SCH (21:32)
[2018-07-15] MEDS: Levothyroxine 100 MCG TAB PO SCH (06:00)
--- NOTE | 2018-07-15 06:03 | CON ---
DATE: 07/14/2018 NEPHROLOGY CONSULTATION LOCATION: [facility]. HISTORY OF PRESENT ILLNESS: The patient is a 72-year-old female with past medical history of hypertension, diabetes, COPD, on home O2, pulmonary hypertension, status post PE, off anticoagulation, status post IVC filter and multiple myeloma with lytic bone lesions, initially admitted for syncopal episode, subsequently discharged to TCU. The patient currently reports feeling better lately, gaining her strength back; has been ambulating well with physical therapy, not having much dyspnea with continuous O2 via nasal cannula; appetite still not back to normal; denies any nausea, vomiting or diarrhea. The patient denies any dizziness or lightheadedness; is complaining of back pain after her recent fall. PAST MEDICAL HISTORY: As above, also with persistent electrolyte abnormalities including hypomagnesemia and hypo/hypercalcemia. FAMILY HISTORY: Noncontributory. SOCIAL HISTORY: Denies tobacco use. REVIEW OF SYSTEMS: CONSTITUTIONAL: Has been having weight loss over the last several months. HEENT: Reports some difficulty swallowing and was recommended to chew her food thoroughly and drink enough water with food. RESPIRATORY: As per HPI. Denies any shortness of breath currently. CARDIOVASCULAR: Denies any chest pain or palpitation. GASTROINTESTINAL: As per HPI. GENITOURINARY: No dysuria. No difficulty urinating. MUSCULOSKELETAL: Back pain. SKIN: Denies any pruritus or rashes. NEUROLOGIC: Has stable resting tremor of her hands. PSYCHIATRIC: Has been grieving following the untimely of her grandson. PHYSICAL EXAMINATION: VITAL SIGNS: Blood pressure 136/81, heart rate 60, respirations 20, temperature 97.7. O2 sat 100% on nasal cannula oxygen. GENERAL: No distress. Conversing coherently in full sentences. HEENT: Moist mucous membranes. Nonicteric. No cervical lymphadenopathy. RESPIRATORY: Lungs clear to auscultation bilaterally. No rales. No rhonchi. No wheezes. CARDIOVASCULAR: Heart sound S1, S2 normal. No murmur, no gallops, no rubs. GASTROINTESTINAL: Abdomen is soft, mildly distended, mildly tender. GENITOURINARY: No bladder distention. EXTREMITIES: Mild bilateral lower leg edema. SKIN: Warm. No cyanosis. NEUROLOGIC: Mild tremor of outstretched hands. PSYCHIATRIC: Normal mood. Normal affect. LABORATORY DATA: CBC: WBC 4.7, hemoglobin 9.4, hematocrit 28.6, platelets 170. Chemistry panel: Sodium 133, potassium 4.9, chloride 97, bicarb 29, BUN 19, creatinine 0.8, glucose 81, calcium 7.7. AST 196, ALT 110, albumin 3.7. ASSESSMENT AND PLAN: 1. Hypocalcemia secondary to being on denosumab with some contribution from chemo medications as well, improving with the patient back on calcitriol 0.5 mg two times a day and calcium carbonate 500 mg two times a day. Recommend to continue the same. Need to monitor for excessive rise in serum calcium as the patient had recent admission in 03/2018 with severe hypercalcemia. 2. Hypomagnesemia, has been relatively difficult to maintain normal magnesium levels; however, as long as the patient is asymptomatic, can tolerate low normal serum magnesium levels. Continue magnesium oxide 400 mg by mouth two times a day. Would hold amiloride as the patient previously had hyperkalemia with it. 3. Congestive heart failure/pulmonary hypertension, has mild fluid expressed on exam; recommend to continue torsemide 10 mg daily. 4. Hypertension, blood pressure has been well controlled with enalapril on hold. Recommend to continue to hold until the patient is back to her regular diet. Thank you for this referral. We will be following up closely. Yoan Nava MD
[2018-07-15] MEDS: Insulin Regular 100 units/ml SC SCH ×4 (07:34→22:22)
[2018-07-15] MEDS: Enoxaparin 40 mg Syringe SC SCH (09:14)
[2018-07-15] MEDS: Cholecalciferol 1,000 INTLU TAB PO SCH (09:14)
[2018-07-15] MEDS: Insulin Lispro (humaLOG) 100 Units/ml Inj SC SCH (09:16)
[2018-07-15] MEDS: Tiotropium 18 mcg Cap For Inhalation INH SCH (09:17)
[2018-07-15] MEDS: Magnesium Oxide 400 mg Tab UD PO SCH (09:17)
[2018-07-15] MEDS: Pantoprazole 40 mg EC Tab PO SCH (09:17)
[2018-07-15] MEDS: BUSPIRONE HCL 7.5 MG PO SCH ×2 (11:09→21:07)
[2018-07-15] MEDS ORDERED: Magnesium Hydroxide Susp 30 ml UD PO ONE (17:12)
[2018-07-15 17:52] LABS: BLOOD UREA NITROGEN 22 mg/dl (7-17); CALCIUM 8.2 mg/dL (8.4-10.2); GFR NON-AFRICAN AMERICAN 55
[2018-07-15] MEDS: Insulin Detemir 100 Units/ml Inj SC SCH (22:25)
--- NOTE | 2018-07-15 22:26 | CP.PCM.PN ---
Subjective - Date & Time of Evaluation Date of Evaluation: 07/15/18 Time of Evaluation: 15:00 - Subjective Subjective: No complaints. Objective - Vital Signs/Intake and Output Vital Signs (last 24 hours): Temp Pulse Resp BP Pulse Ox 98.5 F 70 20 100/60 98 07/15/18 20:04 07/15/18 22:07 07/15/18 20:04 07/15/18 20:04 07/15/18 20:04 - Medications Medications: Current Medications Albuterol/Ipratropium (Duoneb 3 Mg/0.5 Mg (3 Ml) Ud) 3 ml INH RQ6 PRN PRN Reason: Shortness of Breath Amiloride HCl (Amiloride 5 Mg Tab) 5 mg PO DAILY [facility] Aripiprazole (Abilify) 2 mg PO HS [facility] Last Admin: 07/15/18 21:07 Dose: 2 mg Aspirin (Ecotrin) 81 mg PO DAILY [facility] Last Admin: 07/15/18 09:15 Dose: 81 mg Atorvastatin Calcium (Lipitor) 20 mg PO HS [facility] Last Admin: 07/15/18 21:08 Dose: 20 mg Benztropine Mesylate (Cogentin) 1 mg PO Q12 [facility] Last Admin: 07/15/18 21:07 Dose: 1 mg Bortezomib (Velcade) 3.5 mg SC TUTH [facility] Calcitriol (Rocaltrol) 0.5 mcg PO Q12 [facility] Last Admin: 07/15/18 21:09 Dose: 0.5 mcg Calcium Carbonate (Oscal) 500 mg PO BID [facility] Last Admin: 07/15/18 16:44 Dose: 500 mg Cholecalciferol (Vitamin D) 1,000 intlu PO DAILY [facility] Last Admin: 07/15/18 09:14 Dose: 1,000 intlu Clonazepam (Klonopin) 0.5 mg PO DAILY PRN PRN Reason: Anxiety Dextrose (Dextrose 50% Inj) 0 ml IV STAT PRN; Protocol PRN Reason: Hypoglycemia Protocol Dextrose (Glutose 15) 0 gm PO ONCE PRN; Protocol PRN Reason: Hypoglycemia Protocol Docusate Sodium (Colace) 100 mg PO BID [facility] Last Admin: 07/15/18 16:43 Dose: 100 mg Duloxetine HCl (Cymbalta) 60 mg PO DAILY [facility] Last Admin: 07/15/18 09:16 Dose: 60 mg Enalapril Maleate (Vasotec) 5 mg PO DAILY [facility] Enoxaparin Sodium (Lovenox) 40 mg SC DAILY [facility]; Protocol Last Admin: 07/15/18 09:14 Dose: 40 mg Escitalopram Oxalate (Lexapro) 10 mg PO DAILY [facility] Last Admin: 07/15/18 09:14 Dose: 10 mg Ferrous Sulfate (Feosol) 325 mg PO DAILY [facility] Last Admin: 07/15/18 09:15 Dose: 325 mg Gabapentin (Neurontin) 200 mg PO Q8H [facility] Last Admin: 07/15/18 21:09 Dose: 200 mg Glucagon (Glucagen Diagnostic Kit) 0 mg IM STAT PRN; Protocol PRN Reason: Hypoglycemia Protocol Home Med (Riociguat [Adempas]) 2 mg PO TID [facility] Hydrocortisone (Cortef) 10 mg PO HS [facility] Last Admin: 07/15/18 21:08 Dose: 10 mg Insulin Detemir (Levemir) 20 units SC [facility] Last Admin: 07/14/18 21:32 Dose: 20 units Insulin Human Regular (Humulin R) 0 units SC [facility]; Protocol Last Admin: 07/15/18 22:22 Dose: Not Given Ketorolac Tromethamine (Toradol) 30 mg IVP Q6 PRN PRN Reason: Pain, moderate (4-7) Levothyroxine Sodium (Synthroid) 100 mcg PO DAILY@0630 [facility] Last Admin: 07/15/18 06:00 Dose: 100 mcg Magnesium Oxide (Mag-Ox) 400 mg PO DAILY [facility] Last Admin: 07/15/18 09:17 Dose: 400 mg Montelukast Sodium (Singulair) 10 mg PO DAILY [facility] Last Admin: 07/15/18 09:23 Dose: 10 mg Nystatin (Nystop Topical Powder) 1 applic TOP TID [facility] Last Admin: 07/15/18 16:42 Dose: 1 applic Pantoprazole Sodium (Protonix Ec Tab) 40 mg PO DAILY [facility] Last Admin: 07/15/18 09:17 Dose: 40 mg Simethicone (Mylicon Chew Tab) 80 mg PO [facility] PRN PRN Reason: Flatulence Last Admin: 07/14/18 20:18 Dose: 80 mg Tiotropium [place] (Spiriva) 18 mcg INH DAILY [facility] Last Admin: 07/15/18 09:17 Dose: 18 mcg Torsemide (Demadex) 10 mg PO DAILY [facility] Last Admin: 07/15/18 09:15 Dose: 10 mg - Labs Labs: 07/14/18 10:45 07/15/18 17:00 - Head Exam Head Exam: ATRAUMATIC - Eye Exam Eye Exam: Normal appearance - ENT Exam ENT Exam: Mucous Membranes Dry - Respiratory Exam Respiratory Exam: NORMAL BREATHING PATTERN - Cardiovascular Exam Cardiovascular Exam: +S1, +S2 - GI/Abdominal Exam GI & Abdominal Exam: Normal Bowel Sounds Assessment and Plan (1) Pancytopenia Assessment & Plan: mild ? related to chemotherapy ? related to myeloma cont. to monitor Status: Acute (2) Multiple myeloma Assessment & Plan: outpatient treatment daughter to bring in lenalidomide to restart Status: Chronic
[2018-07-16] MEDS: Levothyroxine 100 MCG TAB PO SCH (06:04)
[2018-07-16 08:18] LABS: MEAN CELL VOLUME 89.5 fl (81.0-99.0); MEAN CORPUSCULAR HGB CONC 32.4 g/dL (33.0-37.0); RBC 3.1 Mil/uL (3.80-5.20); RED CELL DISTRIBUTION WIDTH 17.8 % (11.5-14.5); WHITE BLOOD COUNT 4.9 K/uL (4.8-10.8)
[2018-07-16 08:39] LABS: BLOOD UREA NITROGEN 25 mg/dl (7-17); CALCIUM 8.5 mg/dL (8.4-10.2); GFR NON-AFRICAN AMERICAN > 60
[2018-07-16] MEDS: Enoxaparin 40 mg Syringe SC SCH (08:41)
[2018-07-16] MEDS: Tiotropium 18 mcg Cap For Inhalation INH SCH (08:42)
[2018-07-16] MEDS: Cholecalciferol 1,000 INTLU TAB PO SCH (08:44)
[2018-07-16] MEDS: Magnesium Oxide 400 mg Tab UD PO SCH (08:44)
[2018-07-16] MEDS: Pantoprazole 40 mg EC Tab PO SCH (08:46)
[2018-07-16] MEDS: Insulin Regular 100 units/ml SC SCH ×4 (08:50→22:19)
[2018-07-16] MEDS: BUSPIRONE HCL 7.5 MG PO SCH ×2 (11:06→20:12)
[2018-07-16] MEDS: Sodium Chloride 0.9% 1,000 ML IV SCH (11:12)
[2018-07-16] MEDS: Simethicone 80 mg Chewtab PO PRN (20:10)
[2018-07-16] MEDS: Insulin Detemir 100 Units/ml Inj SC SCH (22:10)
--- NOTE | 2018-07-16 23:14 | CP.PCM.PCO ---
Physician Communication Note - Physician Communication Note Physician Communication Note: Hyperkalemia noted; avoid NSAIDS (toradol, etc), IVF and kayexalate given
[2018-07-17] MEDS: Sodium Chloride 0.9% 1,000 ML IV SCH ×2 (00:02→13:16)
[2018-07-17] MEDS: Levothyroxine 100 MCG TAB PO SCH (06:24)
[2018-07-17 07:22] LABS: BASO % 0.2 % (0.0-2.0); EOS % 0.4 % (0.0-4.0); HEMOGLOBIN 8.6 g/dL (12.0-16.0); LYMPH # 1.1 K/uL (1.0-4.3); LYMPH % 21.8 % (20.0-40.0); MEAN CORPUSCULAR HEMOGLOBIN 29.3 pg (27.0-31.0); MEAN PLATELET VOLUME 9.7 fl (7.2-11.7); MONO % 20.5 % (0.0-10.0); NEUT # 2.8 K/uL (1.8-7.0); NEUT % 57.1 % (50.0-75.0); PLATELET COUNT 208 K/uL (130-400); RBC 2.93 Mil/uL (3.80-5.20); RED CELL DISTRIBUTION WIDTH 17.5 % (11.5-14.5); WHITE BLOOD COUNT 4.9 K/uL (4.8-10.8)
[2018-07-17 07:32] LABS: ALBUMIN 3.4 g/dL (3.5-5.0); ALT/SGPT 112 U/L (9-52); AST/SGOT 188 U/L (14-36); BLOOD UREA NITROGEN 27 mg/dl (7-17); CALCIUM 8.6 mg/dL (8.4-10.2); GFR NON-AFRICAN AMERICAN > 60
[2018-07-17] MEDS: Insulin Regular 100 units/ml SC SCH ×4 (07:58→22:16)
[2018-07-17] MEDS: BUSPIRONE HCL 7.5 MG PO SCH ×2 (09:52→20:33)
[2018-07-17] MEDS: Enoxaparin 40 mg Syringe SC SCH (09:54)
[2018-07-17] MEDS: Magnesium Oxide 400 mg Tab UD PO SCH (09:54)
[2018-07-17] MEDS: Pantoprazole 40 mg EC Tab PO SCH (09:55)
[2018-07-17] MEDS: Tiotropium 18 mcg Cap For Inhalation INH SCH (09:55)
[2018-07-17 10:22] LABS: ANISOCYTOSIS SLIGHT; EOSINOPHIL 1 % (0-7); HYPOCHROMIC SLIGHT; LYMPHOCYTE 18 % (20-50); MONOCYTE 21 % (0-10); NEUTROPHIL 60 % (42-75); PLATELET ESTIMATE NORMAL (NORMAL); TOTAL CELLS COUNTED 100
[2018-07-17] MEDS ORDERED: Sod Polystyrene Sulf 15 gm/60 ml Susp PO ONE (11:23)
[2018-07-17] MEDS: Cholecalciferol 1,000 INTLU TAB PO SCH (12:33)
[2018-07-17] MEDS ORDERED: Albuterol 0.083% Inhal Sol (2.5 mg/3 mL) UD INH ONE (12:49)
[2018-07-17] MEDS: Insulin Detemir 100 Units/ml Inj SC SCH (22:20)
[2018-07-18] MEDS: Sodium Chloride 0.9% 1,000 ML IV SCH (03:02)
[2018-07-18] MEDS: Levothyroxine 100 MCG TAB PO SCH (06:03)
[2018-07-18] MEDS: Insulin Regular 100 units/ml SC SCH ×4 (06:30→21:23)
[2018-07-18 06:50] LABS: BASO % 0.2 % (0.0-2.0); HEMOGLOBIN 8.6 g/dL (12.0-16.0); LYMPH # 0.9 K/uL (1.0-4.3); LYMPH % 20.5 % (20.0-40.0); MEAN CELL VOLUME 88.9 fl (81.0-99.0); MEAN CORPUSCULAR HEMOGLOBIN 29.3 pg (27.0-31.0); MEAN PLATELET VOLUME 9.1 fl (7.2-11.7); MONO # 1.3 K/uL (0.0-0.8); MONO % 29.6 % (0.0-10.0); NEUT # 2.2 K/uL (1.8-7.0); NEUT % 48.7 % (50.0-75.0); RBC 2.95 Mil/uL (3.80-5.20); RED CELL DISTRIBUTION WIDTH 17.6 % (11.5-14.5); WHITE BLOOD COUNT 4.5 K/uL (4.8-10.8)
[2018-07-18 07:15] LABS: ALBUMIN 3.3 g/dL (3.5-5.0); ALT/SGPT 125 U/L (9-52); AST/SGOT 206 U/L (14-36); BLOOD UREA NITROGEN 21 mg/dl (7-17); CALCIUM 8.6 mg/dL (8.4-10.2); GFR NON-AFRICAN AMERICAN > 60
[2018-07-18 08:15] LABS: HEPATITIS B SURFACE AG Negative (NEGATIVE)
[2018-07-18 08:20] LABS: HEPATITIS A IGM NEGATIVE (NEGATIVE); HEPATITIS B CORE AB NEGATIVE (NEGATIVE)
[2018-07-18] MEDS: Enoxaparin 40 mg Syringe SC SCH (08:24)
[2018-07-18] MEDS: Cholecalciferol 1,000 INTLU TAB PO SCH (08:25)
[2018-07-18] MEDS: Pantoprazole 40 mg EC Tab PO SCH (08:26)
[2018-07-18] MEDS: Magnesium Oxide 400 mg Tab UD PO SCH (08:26)
[2018-07-18] MEDS: BUSPIRONE HCL 7.5 MG PO SCH ×2 (08:27→20:26)
[2018-07-18] MEDS: Tiotropium 18 mcg Cap For Inhalation INH SCH (08:28)
[2018-07-18 09:52] LABS: HEPATITIS C ANTIBODY REACTIVE (NEGATIVE)
--- NOTE | 2018-07-18 10:27 | CP.PCM.PN ---
Subjective - Date & Time of Evaluation Date of Evaluation: 07/18/18 Time of Evaluation: 09:00 - Subjective Subjective: Patient seen and examined at bedside. In no acute distress. Tolerating PO diet with normal urine and stool output. Tolerating PT/OT. Reports mild back pain. Objective - Vital Signs/Intake and Output Vital Signs (last 24 hours): Temp Pulse Resp BP Pulse Ox 98.1 F 68 20 144/76 100 07/17/18 20:19 07/18/18 04:19 07/17/18 20:19 07/17/18 20:19 07/17/18 20:19 - Medications Medications: Current Medications Albuterol/Ipratropium (Duoneb 3 Mg/0.5 Mg (3 Ml) Ud) 3 ml INH RQ6 PRN PRN Reason: Shortness of Breath Aripiprazole (Abilify) 2 mg PO HS [facility] Last Admin: 07/17/18 22:21 Dose: 2 mg Aspirin (Ecotrin) 81 mg PO DAILY [facility] Last Admin: 07/18/18 08:26 Dose: 81 mg Atorvastatin Calcium (Lipitor) 20 mg PO HS [facility] Last Admin: 07/17/18 22:21 Dose: 20 mg Benztropine Mesylate (Cogentin) 1 mg PO Q12 [facility] Last Admin: 07/18/18 08:26 Dose: 1 mg Bortezomib (Velcade) 3.5 mg SC TUTH [facility] Calcitriol (Rocaltrol) 0.5 mcg PO Q12 [facility] Last Admin: 07/18/18 08:29 Dose: 0.5 mcg Calcium Carbonate (Oscal) 500 mg PO BID [facility] Last Admin: 07/18/18 08:25 Dose: 500 mg Cholecalciferol (Vitamin D) 1,000 intlu PO DAILY [facility] Last Admin: 07/18/18 08:25 Dose: 1,000 intlu Clonazepam (Klonopin) 0.5 mg PO DAILY PRN PRN Reason: Anxiety Dextrose (Dextrose 50% Inj) 0 ml IV STAT PRN; Protocol PRN Reason: Hypoglycemia Protocol Dextrose (Glutose 15) 0 gm PO ONCE PRN; Protocol PRN Reason: Hypoglycemia Protocol Docusate Sodium (Colace) 100 mg PO BID [facility] Last Admin: 07/18/18 08:28 Dose: 100 mg Duloxetine HCl (Cymbalta) 60 mg PO DAILY [facility] Last Admin: 07/18/18 08:26 Dose: 60 mg Enalapril Maleate (Vasotec) 5 mg PO DAILY [facility] Enoxaparin Sodium (Lovenox) 40 mg SC DAILY [facility]; Protocol Last Admin: 07/18/18 08:24 Dose: 40 mg Escitalopram Oxalate (Lexapro) 10 mg PO DAILY [facility] Last Admin: 07/18/18 08:26 Dose: 10 mg Ferrous Sulfate (Feosol) 325 mg PO DAILY [facility] Last Admin: 07/18/18 08:26 Dose: 325 mg Gabapentin (Neurontin) 200 mg PO Q8H [facility] Last Admin: 07/18/18 06:03 Dose: 200 mg Glucagon (Glucagen Diagnostic Kit) 0 mg IM STAT PRN; Protocol PRN Reason: Hypoglycemia Protocol Home Med (Riociguat [Adempas]) 2 mg PO TID [facility] Hydrocortisone (Cortef) 10 mg PO HS [facility] Last Admin: 07/17/18 22:21 Dose: 10 mg Sodium Chloride (Sodium Chloride 0.9%) 1,000 mls @ 70 mls/hr IV .[id number] [facility] Stop: 07/18/18 12:51 Last Admin: 07/18/18 03:02 Dose: 70 mls/hr Insulin Detemir (Levemir) 20 units SC HS [facility] Last Admin: 07/17/18 22:20 Dose: 20 units Insulin Human Regular (Humulin R) 0 units SC [facility]; Protocol Last Admin: 07/18/18 06:30 Dose: Not Given Ketorolac Tromethamine (Toradol) 15 mg IVP ONCE PRN PRN Reason: Pain, severe (8-10) Last Admin: 07/16/18 21:03 Dose: 15 mg Levothyroxine Sodium (Synthroid) 100 mcg PO DAILY@0630 [facility] Last Admin: 07/18/18 06:03 Dose: 100 mcg Magnesium Oxide (Mag-Ox) 400 mg PO DAILY [facility] Last Admin: 07/18/18 08:26 Dose: 400 mg Montelukast Sodium (Singulair) 10 mg PO DAILY [facility] Last Admin: 07/18/18 08:34 Dose: 10 mg Nystatin (Nystop Topical Powder) 1 applic TOP TID [facility] Last Admin: 07/18/18 08:24 Dose: 1 applic Pantoprazole Sodium (Protonix Ec Tab) 40 mg PO DAILY [facility] Last Admin: 07/18/18 08:26 Dose: 40 mg Simethicone (Mylicon Chew Tab) 80 mg PO [facility] PRN PRN Reason: Flatulence Last Admin: 07/16/18 20:10 Dose: 80 mg Tiotropium [place] (Spiriva) 18 mcg INH DAILY [facility] Last Admin: 07/18/18 08:28 Dose: 18 mcg Torsemide (Demadex) 10 mg PO DAILY [facility] Last Admin: 07/16/18 08:43 Dose: 10 mg - Labs Labs: 07/18/18 05:55 07/18/18 05:55 - Constitutional Appears: No Acute Distress - Head Exam Head Exam: NORMOCEPHALIC - Eye Exam Eye Exam: EOMI - ENT Exam ENT Exam: Mucous Membranes Moist - Neck Exam Neck Exam: Full ROM - Respiratory Exam Respiratory Exam: Clear to Ausculation Bilateral, NORMAL BREATHING PATTERN - Cardiovascular Exam Cardiovascular Exam: REGULAR RHYTHM, +S1, +S2 - GI/Abdominal Exam GI & Abdominal Exam: Soft, Normal Bowel Sounds - Extremities Exam Extremities Exam: Full ROM. absent: Calf Tenderness, Pedal Edema - Back Exam Back Exam: absent: CVA tenderness (L), CVA tenderness (R), paraspinal tenderness - Neurological Exam Neurological Exam: Alert, Awake, Oriented x3 - Psychiatric Exam Psychiatric exam: Normal Affect, Normal Mood - Skin Skin Exam: Dry, Normal Color, Warm Assessment and Plan - Assessment and Plan (Free Text) Assessment: 72 yr old F admitted to TCU for PT/OT for deconditioning and abnormal gait. Patient was recently discharged from telemetry for evaluation s/p unwitnessed syncopal episode. PMHx is significant for Multiple Myeloma, IDDM, HTN, COPD, pulmonary HTN, depression, Barrets Esophagus, hx PE with IVC filter in place, intermittent electrolyte imbalances, ambulates with walker and on continuos O2 (2L) via nasal cannula, uses adult diapers for urinary incontinence. Patient has acute on chronic electrolyte imbalances (hypomagnesemia, hyperkalemia and hypocalcemia). Hypocalcemia has resolved. Patient is stable, tolerating PT/OT. Plan: Deconditioning/abnormal gait -continue PT/OT Hypomagnesemia -acute on chronic, mild -Magnesium 1.2 this AM -increased Magnesnium oxide to 400mg PO BID -f/u magnesium in AM -nephrology consult: Dr. Nava Hyperkalemia -acute, mild, asymptomatic -K+ 5.3 -s/p kayexalate , 2 albuterol tx today -f/u BMP in AM Hypocalcemia -resolved -Ca+2 8.6 -continue home medications (calcium carbonate 500mg PO BID, calcitriol 0.5 mcg PO Q12) Elevated LFT's/alk phos -chronic, intermitent x 1 yr, asymptomatic -07/01/18 Abd/Pelvis CT: liver unremarkable, no gross lesion or dilatation, mildly dilated small bowel without mechanical obstructing lesion -HepBsAg and Hep B AB negative, Hep C ab reactive -f/u Hep C viral load Left shoulder pain s/p fall -acute, improved -left shoulder xray: no acute fracture, minor degenerative osteoarthritis -tylenol PRN pain IDDM type 2 -chronic, controlled -03/12/18: HbA1c 6.6 -hold home medications (metformin, insulin detemir 20 units SC HS and insulin lispro 5 units SC TID) - medium dose Insulin coverage scale, hypoglycemia protocol - [place] ACHS Multiple Myeloma/Anemia -chronic, stable -patient follows up regularly with heme/onc: Dr. Vilchis -continue PO Iron, home med, for anemia Hypertension -chronic, controlled -hold home medication Enalapril 5mg PO QD -continue Torsemide 10mg PO QD -Monitor BP Pulmonary hypertension -chronic, controlled -BIPAP ordered PRN (home settings IPAP 15, EPAP 5, FiO2 1, 1 L/min COPD -chronic, stable -continuous O2 supplement via nasal cannula (2L) -uses continuously at home -Duoneb Q6 PRN SOB Hypothyroidism -chronic, controlled -TSH 2.73 on 07/10/18 -continue levothyroxine 100mcg PO QD Depression -chronic, controlled -continue home medications: abilify, buspar, cogentin, cymbalta GERD -chronic, controlled -Protonix 40 mg PO QD DVT Prophylaxis -Lovenox 40mg SC daily
[2018-07-18] MEDS ORDERED: Albuterol 0.083% Inhal Sol (2.5 mg/3 mL) UD INH ONE ×2 (10:28→11:20)
[2018-07-18] MEDS ORDERED: Lidocaine 5% Patch TD PRN (11:27)
[2018-07-18] MEDS ORDERED: Magnesium Oxide 400 mg Tab UD PO SCH (17:00)
--- NOTE | 2018-07-18 19:35 | CP.PCM.PN ---
Subjective - Date & Time of Evaluation Date of Evaluation: 07/18/18 Time of Evaluation: 19:33 - Subjective Subjective: Reports feeling well; had BM yesterday and today; intermittent dyspnea but overall ok; ambulating well with PT; Objective - Vital Signs/Intake and Output Vital Signs (last 24 hours): Temp Pulse Resp BP Pulse Ox 97.9 F 80 19 160/70 H 98 07/18/18 08:40 07/18/18 14:50 07/18/18 08:40 07/18/18 08:40 07/18/18 14:50 - Medications Medications: Current Medications Albuterol/Ipratropium (Duoneb 3 Mg/0.5 Mg (3 Ml) Ud) 3 ml INH RQ6 PRN PRN Reason: Shortness of Breath Aripiprazole (Abilify) 2 mg PO HS [facility] Last Admin: 07/17/18 22:21 Dose: 2 mg Aspirin (Ecotrin) 81 mg PO DAILY [facility] Last Admin: 07/18/18 08:26 Dose: 81 mg Atorvastatin Calcium (Lipitor) 20 mg PO HS [facility] Last Admin: 07/17/18 22:21 Dose: 20 mg Benztropine Mesylate (Cogentin) 1 mg PO Q12 [facility] Last Admin: 07/18/18 08:26 Dose: 1 mg Bortezomib (Velcade) 3.5 mg SC TUTH [facility] Calcitriol (Rocaltrol) 0.25 mcg PO Q12 [facility] Calcium Carbonate (Oscal) 500 mg PO BID [facility] Last Admin: 07/18/18 17:08 Dose: 500 mg Cholecalciferol (Vitamin D) 1,000 intlu PO DAILY [facility] Last Admin: 07/18/18 08:25 Dose: 1,000 intlu Clonazepam (Klonopin) 0.5 mg PO DAILY PRN PRN Reason: Anxiety Dextrose (Dextrose 50% Inj) 0 ml IV STAT PRN; Protocol PRN Reason: Hypoglycemia Protocol Dextrose (Glutose 15) 0 gm PO ONCE PRN; Protocol PRN Reason: Hypoglycemia Protocol Docusate Sodium (Colace) 100 mg PO BID [facility] Last Admin: 07/18/18 17:08 Dose: 100 mg Duloxetine HCl (Cymbalta) 60 mg PO DAILY [facility] Last Admin: 07/18/18 08:26 Dose: 60 mg Enalapril Maleate (Vasotec) 5 mg PO DAILY [facility] Enoxaparin Sodium (Lovenox) 40 mg SC DAILY [facility]; Protocol Last Admin: 07/18/18 08:24 Dose: 40 mg Escitalopram Oxalate (Lexapro) 10 mg PO DAILY [facility] Last Admin: 07/18/18 08:26 Dose: 10 mg Ferrous Sulfate (Feosol) 325 mg PO DAILY [facility] Last Admin: 07/18/18 08:26 Dose: 325 mg Furosemide (Lasix) 20 mg IVP ONCE ONE Stop: 07/18/18 19:33 Gabapentin (Neurontin) 200 mg PO Q8H [facility] Last Admin: 07/18/18 14:57 Dose: 200 mg Glucagon (Glucagen Diagnostic Kit) 0 mg IM STAT PRN; Protocol PRN Reason: Hypoglycemia Protocol Home Med (Riociguat [Adempas]) 2 mg PO TID [facility] Hydrocortisone (Cortef) 10 mg PO HS [facility] Last Admin: 07/17/18 22:21 Dose: 10 mg Insulin Detemir (Levemir) 20 units SC [facility] Last Admin: 07/17/18 22:20 Dose: 20 units Insulin Human Regular (Humulin R) 0 units SC [facility]; Protocol Last Admin: 07/18/18 17:07 Dose: Not Given Levothyroxine Sodium (Synthroid) 100 mcg PO DAILY@0630 [facility] Last Admin: 07/18/18 06:03 Dose: 100 mcg Lidocaine (Lidoderm) 1 ea TD DAILY PRN PRN Reason: Pain, moderate (4-7) Magnesium Oxide (Mag-Ox) 400 mg PO BID [facility] Last Admin: 07/18/18 17:07 Dose: 400 mg Montelukast Sodium (Singulair) 10 mg PO DAILY [facility] Last Admin: 07/18/18 08:34 Dose: 10 mg Nystatin (Nystop Topical Powder) 1 applic TOP TID [facility] Last Admin: 07/18/18 17:07 Dose: 1 applic Pantoprazole Sodium (Protonix Ec Tab) 40 mg PO DAILY [facility] Last Admin: 07/18/18 08:26 Dose: 40 mg Simethicone (Mylicon Chew Tab) 80 mg PO HS PRN PRN Reason: Flatulence Last Admin: 07/16/18 20:10 Dose: 80 mg Tiotropium [place] (Spiriva) 18 mcg INH DAILY [facility] Last Admin: 07/18/18 08:28 Dose: 18 mcg Torsemide (Demadex) 10 mg PO DAILY [facility] Last Admin: 07/16/18 08:43 Dose: 10 mg - Labs Labs: 07/18/18 05:55 07/18/18 05:55 - Constitutional Appears: Non-toxic, No Acute Distress - Head Exam Head Exam: NORMAL INSPECTION - Respiratory Exam Respiratory Exam: Clear to Ausculation Bilateral. absent: Respiratory Distress - Cardiovascular Exam Cardiovascular Exam: RRR, +S1, +S2 - GI/Abdominal Exam GI & Abdominal Exam: Soft. absent: Distended - Exam Exam: absent: Bladder Distension - Extremities Exam Additional comments: 1-2+ bilateral lower leg edema; - Neurological Exam Neurological Exam: Alert, Awake - Psychiatric Exam Psychiatric exam: Normal Mood. absent: Agitated - Skin Skin Exam: Warm. absent: Cyanosis Assessment and Plan (1) Hyperkalemia Assessment & Plan: Mild but persistent hyperkalemia despite getting kayexalate; recommend to stop ALL NSAIDS; changing to low K diet; will give dose of IV lasix today for kaliuretic effect; continue to hold BRUNO inhibitor; Status: Acute (2) CHF (congestive heart failure) Assessment & Plan: With pulm htn, preserved EF; needs to be put back on home med adempas (patient repeatedly reminded); has increased lower ext edema; will resume torsemide 10 mg daily; Status: Chronic (3) HTN (hypertension) Assessment & Plan: BP elevated, volume excess on exam; resuming diuretics as above; continue to hold BRUNO inhibitor; Status: Acute (4) Hypocalcemia syndrome Assessment & Plan: Calcium now in normal range; decreasing calcitriol to 0.25 mcg bid; need to monitor for ensuing hypercalcemia; Status: Resolved (5) Hypomagnesemia Assessment & Plan: Chronic issue; continue PO mag ox 400 mg bid; no need for more aggressive mag supplementation unless patient is symptomatic or having other manifestations; Status: Chronic
[2018-07-18] MEDS: Insulin Detemir 100 Units/ml Inj SC SCH (21:19)
[2018-07-19] MEDS: Levothyroxine 100 MCG TAB PO SCH (05:56)
[2018-07-19 06:32] LABS: BLOOD UREA NITROGEN 24 mg/dl (7-17); CALCIUM 9.5 mg/dL (8.4-10.2); GFR NON-AFRICAN AMERICAN > 60
[2018-07-19] MEDS: Insulin Regular 100 units/ml SC SCH ×4 (06:40→22:04)
[2018-07-19] MEDS ORDERED: Magnesium Oxide 400 mg Tab UD PO ONE (06:49)
[2018-07-19] MEDS: Enoxaparin 40 mg Syringe SC SCH (08:31)
[2018-07-19] MEDS: Magnesium Oxide 400 mg Tab UD PO SCH ×4 (08:32→16:38)
[2018-07-19] MEDS: BUSPIRONE HCL 7.5 MG PO SCH ×2 (08:32→22:05)
[2018-07-19] MEDS: Tiotropium 18 mcg Cap For Inhalation INH SCH (08:32)
[2018-07-19] MEDS: Cholecalciferol 1,000 INTLU TAB PO SCH (08:33)
[2018-07-19] MEDS: Pantoprazole 40 mg EC Tab PO SCH (08:35)
[2018-07-19] MEDS: REVLIMID 5 MG PO SCH (16:38)
[2018-07-19 20:58] VITALS: O2SAT 98
[2018-07-19] MEDS: Insulin Detemir 100 Units/ml Inj SC SCH (22:02)
[2018-07-20] MEDS: Levothyroxine 100 MCG TAB PO SCH (06:46)
[2018-07-20] MEDS: Insulin Regular 100 units/ml SC SCH ×2 (06:47→11:25)
[2018-07-20 07:49] LABS: ALBUMIN 3.6 g/dL (3.5-5.0); ALT/SGPT 165 U/L (9-52); AST/SGOT 280 U/L (14-36); BLOOD UREA NITROGEN 23 mg/dl (7-17); CALCIUM 9.2 mg/dL (8.4-10.2); GFR NON-AFRICAN AMERICAN > 60
[2018-07-20 07:57] LABS: BASO % 0.3 % (0.0-2.0); EOS % 0.9 % (0.0-4.0); HEMOGLOBIN 8.7 g/dL (12.0-16.0); LYMPH # 0.7 K/uL (1.0-4.3); LYMPH % 17.8 % (20.0-40.0); MEAN CELL VOLUME 88.4 fl (81.0-99.0); MEAN CORPUSCULAR HEMOGLOBIN 29.6 pg (27.0-31.0); MEAN CORPUSCULAR HGB CONC 33.4 g/dL (33.0-37.0); MONO # 1.1 K/uL (0.0-0.8); MONO % 25.6 % (0.0-10.0); NEUT # 2.3 K/uL (1.8-7.0); NEUT % 55.4 % (50.0-75.0); NRBC % 0.2 % (0.0-0.0); PLATELET COUNT 228 K/uL (130-400); RBC 2.94 Mil/uL (3.80-5.20); RED CELL DISTRIBUTION WIDTH 17.9 % (11.5-14.5); WHITE BLOOD COUNT 4.1 K/uL (4.8-10.8)
[2018-07-20 08:21] VITALS: BP 132/51; PULSE 100; RESP 22; TEMP 98.2
[2018-07-20] MEDS: BUSPIRONE HCL 7.5 MG PO SCH (08:22)
[2018-07-20] MEDS: Enoxaparin 40 mg Syringe SC SCH (08:22)
[2018-07-20] MEDS: Tiotropium 18 mcg Cap For Inhalation INH SCH (08:23)
[2018-07-20] MEDS: Pantoprazole 40 mg EC Tab PO SCH (08:25)
[2018-07-20] MEDS: Cholecalciferol 1,000 INTLU TAB PO SCH (08:25)
[2018-07-20] MEDS: Magnesium Oxide 400 mg Tab UD PO SCH ×3 (08:27→16:11)
[2018-07-20] MEDS: REVLIMID 5 MG PO SCH (08:28)
[2018-07-20 09:23] LABS: BASOPHIL 1 % (0-2); EOSINOPHIL 1 % (0-7); LYMPHOCYTE 20 % (20-50); MONOCYTE 15 % (0-10); NEUTROPHIL 63 % (42-75); PLATELET ESTIMATE NORMAL (NORMAL); TOTAL CELLS COUNTED 100
[2018-07-20 09:24] LABS: ANISOCYTOSIS MODERATE; HYPOCHROMIC SLIGHT; MICROCYTOSIS SLIGHT; OVALOCYTES SLIGHT
[2018-07-20 09:25] LABS: LARGE PLATELETS PRESENT
--- NOTE | 2018-07-20 11:06 | CP.PCM.DIS ---
Provider - Provider Date of Admission: 07/12/18 23:12 Attending physician: David Neumann MD Consults: 07/13/18 06:49 Hematology Oncology Consult Routine Comment: multiple myeloma, anemia, hypocalcemia refractory Consulting Provider: Luis Eduardo Vilchis Consulting Physician: Luis Eduardo Vilchis Reason for Consult: multiple myeloma, anemia, hypocalcemia refractory 07/13/18 10:18 Nephrology Consult Routine Comment: electrolyte inbalance, hypocalcemia refractory to Consulting Provider: Yoan Nava Consulting Physician: Yoan Nava Reason for Consult: electrolyte inbalance, hypocalcemia refractory to 07/13/18 18:57 Wound Care [Nursing Referral for Wound Care] Routine Comment: Physician Instructions: Reason For Exam: redness underbreasts, abd'l folds, groin Time Spent in preparation of Discharge (in minutes): 30 Diagnosis - Discharge Diagnosis (1) Abnormal gait Status: Acute Priority: Low (2) Hypomagnesemia Status: Chronic Priority: Low (3) Hypothyroidism Status: Chronic Priority: Low (4) Multiple myeloma Status: Chronic Priority: Low (5) Pulmonary hypertension Status: Chronic Priority: Low (6) Anemia Status: Chronic Priority: Low (7) Diabetes mellitus Status: Chronic Priority: Low (8) Low serum calcium Status: Acute (9) Hypocalcemia syndrome Status: Resolved Priority: Low Hospital Course - Lab Results Lab Results: Most Recent Lab Values WBC 4.1 K/uL (4.8-10.8) L 07/20/18 07:00 RBC 2.94 Mil/uL (3.80-5.20) L 07/20/18 07:00 Hgb 8.7 g/dL (12.0-16.0) L 07/20/18 07:00 Hct 26.0 % (34.0-47.0) L 07/20/18 07:00 MCV 88.4 fl (81.0-99.0) 07/20/18 07:00 MCH 29.6 pg (27.0-31.0) 07/20/18 07:00 MCHC 33.4 g/dL (33.0-37.0) 07/20/18 07:00 RDW 17.9 % (11.5-14.5) H 07/20/18 07:00 Plt Count 228 K/uL (130-400) 07/20/18 07:00 MPV 9.0 fl (7.2-11.7) 07/20/18 07:00 Neut % (Auto) 55.4 % (50.0-75.0) 07/20/18 07:00 Lymph % (Auto) 17.8 % (20.0-40.0) L 07/20/18 07:00 [place] % (Auto) 25.6 % (0.0-10.0) H 07/20/18 07:00 Eos % (Auto) 0.9 % (0.0-4.0) 07/20/18 07:00 Baso % (Auto) 0.3 % (0.0-2.0) 07/20/18 07:00 Neut # (Auto) 2.3 K/uL (1.8-7.0) 07/20/18 07:00 Lymph # (Auto) 0.7 K/uL (1.0-4.3) L 07/20/18 07:00 [place] # (Auto) 1.1 K/uL (0.0-0.8) H 07/20/18 07:00 Eos # (Auto) 0.0 K/uL (0.0-0.7) 07/20/18 07:00 Baso # (Auto) 0.0 K/uL (0.0-0.2) 07/20/18 07:00 Neutrophils % (Manual) 63 % (42-75) 07/20/18 07:00 Lymphocytes % (Manual) 20 % (20-50) 07/20/18 07:00 Monocytes % (Manual) 15 % (0-10) H 07/20/18 07:00 Eosinophils % (Manual) 1 % (0-7) 07/20/18 07:00 Basophils % (Manual) 1 % (0-2) 07/20/18 07:00 Platelet Estimate Normal (NORMAL) 07/20/18 07:00 Large Platelets Present 07/20/18 07:00 Hypochromasia (manual) Slight 07/20/18 07:00 Anisocytosis (manual) Moderate 07/20/18 07:00 Microcytosis (manual) Slight 07/20/18 07:00 Macrocytosis (manual) Slight 07/20/18 07:00 Ovalocytes Slight 07/20/18 07:00 Sodium 131 mmol/l (132-148) L 07/20/18 07:00 Potassium 4.6 MMOL/L (3.6-5.0) 07/20/18 07:00 Chloride 93 mmol/L (98-107) L 07/20/18 07:00 Carbon Dioxide 32 mmol/L (22-30) H 07/20/18 07:00 Anion Gap 11 (10-20) 07/20/18 07:00 BUN 23 mg/dl (7-17) H 07/20/18 07:00 Creatinine 0.7 mg/dl (0.7-1.2) 07/20/18 07:00 Est GFR ( Amer) > 60 07/20/18 07:00 Est GFR (Non-Af Amer) > 60 07/20/18 07:00 POC Glucose (mg/dL) 117 mg/dL (65-110) H 07/20/18 06:22 Random Glucose 112 mg/dL (65-105) H 07/20/18 07:00 Calcium 9.2 mg/dL (8.4-10.2) 07/20/18 07:00 Phosphorus 4.4 mg/dl (2.5-4.5) 07/18/18 05:55 Magnesium 1.2 MG/DL (1.6-2.3) L 07/20/18 07:00 Total Bilirubin 0.4 mg/dl (0.2-1.3) 07/20/18 07:00 AST 280 U/L (14-36) H D 07/20/18 07:00 ALT 165 U/L (9-52) H D 07/20/18 07:00 Alkaline Phosphatase 388 U/L (38-126) H 07/20/18 07:00 Total Protein 7.2 G/DL (6.3-8.2) 07/20/18 07:00 Albumin 3.6 g/dL (3.5-5.0) 07/20/18 07:00 Globulin 3.6 gm/dL (2.2-3.9) 07/20/18 07:00 Albumin/Globulin Ratio 1.0 (1.0-2.1) 07/20/18 07:00 Ur Random Sodium 63 mmol/L 07/18/18 15:55 Hepatitis A IgM Ab Negative (NEGATIVE) 07/16/18 06:00 Hep Bs Antigen Negative (NEGATIVE) 07/16/18 06:00 Hep B Core IgM Ab Negative (NEGATIVE) 07/16/18 06:00 Hepatitis C Antibody Reactive (NEGATIVE) 07/16/18 06:00 - Hospital Course Hospital Course: 72 yr old F admitted to TCU for PT/OT for deconditioning and abnormal gait. Patient was recently discharged from telemetry for evaluation s/p unwitnessed syncopal episode and fall. PMHx is significant for Multiple Myeloma, IDDM, HTN, COPD, pulmonary HTN, depression, Barrets Esophagus, hx PE with IVC filter in place, intermittent electrolyte imbalances, ambulates with walker and on continuos O2 (2L) via nasal cannula, uses adult diapers for urinary incontinence. Patient had negative head CT and left shoulder xray. Patient has acute on chronic electrolyte imbalances (hypomagnesemia, hyperkalemia and hyp ocalcemia). Hypocalcemia and hyperkalemia have resolved with treatment with kayexalate, IV calcium gluconate, PO magnesium supplements. Nephrology and heme/onc were consulted. Hypomagnesemia is stable. Patients diabetes remained controlled with an HbA1c was 6.5 on 07/12/18. Patient has a left pretibial ecchymosis from fall on 07/11/18, had erythema and tenderness to palpation in that area, no increased warmth, encouraged patient to apply warm compresses to area and will re-evaluate in clinic on wednesday. Patient is stable for discharge with recommendations to continue PT as outpatient, decrease home dose of Insulin Glargine to 10 units QHS, decrease home insulin lispro to 2 units SC TID with meals, resume the rest of home medications, keep blood glucose log and bring to clinic. Patient will follow up in clinic with PMD on 07/22/18 at 11am. Bipap machine will be delivered to patients home. - Date & Time of H&P Date of H&P: 07/13/18 Time of H&P: 10:00 Discharge Exam - Head Exam Head Exam: NORMAL INSPECTION - Eye Exam Eye Exam: EOMI - ENT Exam ENT Exam: Mucous Membranes Moist - Respiratory Exam Respiratory Exam: NORMAL BREATHING PATTERN. absent: Rhonchi, Wheezes - Cardiovascular Exam Cardiovascular Exam: REGULAR RHYTHM, +S1, +S2 - GI/Abdominal Exam GI & Abdominal Exam: Normal Bowel Sounds, Soft - Extremities Exam Extremities exam: full ROM (2cm left pretibial erythema and tenderness, no increased warmth) - Neurological Exam Neurological exam: Alert, CN II-XII Intact, Oriented x3 - Psychiatric Exam Psychiatric exam: Normal Affect, Normal Mood - Skin Skin Exam: Dry, Erythema (2cm left pretibial erythema with mild swelling), Warm Discharge Plan - Discharge Medications Prescriptions: Albuterol/Ipratropium [Duoneb 3 mg/0.5 mg (3 ml) UD] 3 ml INH RQ6 PRN #1 pkg PRN Reason: Shortness Of Breath ARIPiprazole [Abilify] 2 mg PO HS #30 tab Aspirin [Ecotrin] 81 mg PO DAILY #30 tabec Atorvastatin [Lipitor] 20 mg PO HS #30 tab busPIRone [Buspar] 15 mg PO Q12 #60 tab Calcitriol [Rocaltrol] 0.5 mcg PO Q12 #60 sgl Calcium Carbonate [Oscal] 500 mg PO BID #60 tab Cholecalciferol [Vitamin D 1000 IU] 1,000 unit PO DAILY #30 tab clonazePAM [Klonopin] 0.5 mg PO DAILY PRN #30 tab PRN Reason: Anxiety DULoxetine [Cymbalta] 60 mg PO DAILY #30 ecc Enalapril Maleate [Vasotec] 5 mg PO DAILY #30 tab Escitalopram [Lexapro] 10 mg PO DAILY #30 tab Gabapentin [Neurontin] 100 mg PO TID 30 Days #90 capsule Hydrocortisone [Cortef] 10 mg PO HS #30 tab Insulin Glargine, Recombina [Lantus] 10 unit SC HS #1 vial Insulin Lispro [humALOG] 2 unit SC TID #1 vial Levothyroxine [Synthroid] 100 mcg PO DAILY@0630 #30 tab Magnesium Oxide 400 mg PO TID 30 Days #90 tablet metFORMIN [glucOPHAGE] 500 mg PO BID 30 Days #60 tab Montelukast [Singulair] 10 mg PO DAILY #30 tab Nystatin [Nystop Topical Powder] 1 applic TOP TID #1 bottle Omeprazole 20 mg PO DAILY #30 capsule. Riociguat [Adempas] 2 mg PO TID #90 tablet Tiotropium [place] Inhaler [Spiriva Inhalation Handihaler Device] 2 puff INH DAILY #1 inhaler Torsemide [Demadex] 10 mg PO DAILY #30 tab - Follow Up Plan Condition: GOOD Disposition: HOME/ ROUTINE Instructions: Preventing Falls in the Older Adult, Preventing Falls, Getting Up From a Fall, Standing Balance Exercises, Beginner Additional Instructions: -Follow up with your PMD as scheduled on Wednesday07/22/18 at 11am, [facility], -take medications as prescribed -Follow up withe Dr. Vilchis (heme/onc) and Dr. Nava (nephrology) within 2 weeks. Referrals: Luis Eduardo Vilchis MD [Staff Provider] - Yoan Nava MD [Staff Provider] - David Neumann MD [Family Provider] -
--- NOTE | 2018-07-21 20:32 | CP.PCM.PN ---
Subjective - Date & Time of Evaluation Date of Evaluation: 07/20/18 Time of Evaluation: 12:00 - Subjective Subjective: No complaints. Objective - Vital Signs/Intake and Output Vital Signs (last 24 hours): Temp Pulse Resp BP Pulse Ox 98.2 F 100 H 22 132/51 L 98 07/20/18 08:00 07/20/18 08:00 07/20/18 08:00 07/20/18 08:00 07/20/18 08:00 - Labs Labs: 07/20/18 07:00 07/20/18 07:00 - Head Exam Head Exam: ATRAUMATIC - Eye Exam Eye Exam: Normal appearance - ENT Exam ENT Exam: Mucous Membranes Dry - Respiratory Exam Respiratory Exam: NORMAL BREATHING PATTERN - Cardiovascular Exam Cardiovascular Exam: +S1, +S2 - GI/Abdominal Exam GI & Abdominal Exam: Normal Bowel Sounds Assessment and Plan (1) Pancytopenia Assessment & Plan: mild ? related to chemotherapy ? related to myeloma cont. to monitor Status: Acute (2) Multiple myeloma Assessment & Plan: outpatient treatment daughter to bring in lenalidomide to restart Status: Chronic
--- NOTE | 2018-07-21 20:32 | CP.PCM.PN ---
Subjective - Date & Time of Evaluation Date of Evaluation: 07/18/18 Time of Evaluation: 10:00 - Subjective Subjective: Feeling better Objective - Vital Signs/Intake and Output Vital Signs (last 24 hours): Temp Pulse Resp BP Pulse Ox 98.2 F 100 H 22 132/51 L 98 07/20/18 08:00 07/20/18 08:00 07/20/18 08:00 07/20/18 08:00 07/20/18 08:00 - Labs Labs: 07/20/18 07:00 07/20/18 07:00 - Head Exam Head Exam: ATRAUMATIC - Eye Exam Eye Exam: Normal appearance - ENT Exam ENT Exam: Mucous Membranes Dry - Respiratory Exam Respiratory Exam: NORMAL BREATHING PATTERN - Cardiovascular Exam Cardiovascular Exam: +S1, +S2 - GI/Abdominal Exam GI & Abdominal Exam: Normal Bowel Sounds Assessment and Plan (1) Pancytopenia Assessment & Plan: mild ? related to chemotherapy ? related to myeloma cont. to monitor Status: Acute (2) Multiple myeloma Assessment & Plan: outpatient treatment daughter to bring in lenalidomide to restart Status: Chronic
== END 2018-07-20 16:40 | disposition home or self-care (01) | DRG 92 ==
LOC: H.TCU 23:12
PROVIDERS: ADMIT Family Medicine; ATTEND Family Medicine
PROC: F07Z9FZ Gait Training/Functional Ambulation Treatment using Assistive, Adaptive, Supportive or Protective Equipment (ICD-10-PCS; principal; 2018-07-12)
PROC: F08Z4FZ Home Management Treatment using Assistive, Adaptive, Supportive or Protective Equipment (ICD-10-PCS; 2018-07-12)
PROC: F07M6FZ Therapeutic Exercise Treatment of Musculoskeletal System - Whole Body using Assistive, Adaptive, Supportive or Protective Equipment (ICD-10-PCS; 2018-07-13)
DX: R26.89 Other abnormalities of gait and mobility (principal); C90.00 Multiple myeloma not having achieved remission; D61.818 Other pancytopenia; E83.51 Hypocalcemia; E87.5 Hyperkalemia; D63.0 Anemia in neoplastic disease; E83.42 Hypomagnesemia; M89.9 Disorder of bone, unspecified; I11.0 Hypertensive heart disease with heart failure; I50.9 Heart failure, unspecified; G20 Parkinson's disease; I27.20 Pulmonary hypertension, unspecified; J44.9 Chronic obstructive pulmonary disease, unspecified; K21.9 Gastro-esophageal reflux disease without esophagitis; M06.9 Rheumatoid arthritis, unspecified; E03.9 Hypothyroidism, unspecified; E11.9 Type 2 diabetes mellitus without complications; E78.00 Pure hypercholesterolemia, unspecified; G47.30 Sleep apnea, unspecified; F32.9 Major depressive disorder, single episode, unspecified; F41.9 Anxiety disorder, unspecified; Z95.828 Presence of other vascular implants and grafts; Z86.711 Personal history of pulmonary embolism; Z99.81 Dependence on supplemental oxygen; Z87.311 Personal history of (healed) other pathological fracture; Z87.01 Personal history of pneumonia (recurrent); Z79.4 Long term (current) use of insulin; Z88.6 Allergy status to analgesic agent